=== PATIENT | male | born 1970 | race Hispanic/Latino ===

== ENCOUNTER 2018-09-29 11:09 | Emergency (ER) | payer OTHER ==
--- OUTSIDE RECORDS SUMMARY | 2018-09-29 11:11 | XMS REPORT | Clinical Summary ---
:1970 Author Organization [facility] Address [address] [place] [address] Care Team Providers Name Role Phone Leroy Kinsey MD Primary Care Provider Allergies No Known Allergies Medications Not on file Active Problems Not on file Social History Tobacco Use Types Packs/Day Years Used Date Current Every Day Smoker Cigarettes 1 Smokeless Tobacco: Never Used Alcohol Use Drinks/Week oz/Week Comments No Sex Assigned at Date Recorded Not on file Job Start Date Occupation Industry Not on file Not on file Not on file Travel History Travel Start Travel End No recent travel history available. Last Filed Vital Signs Not on file Plan of Treatment Not on file Results Not on fileafter 09/28/2017 Insurance Payer Benefit Plan / Subscriber ID Type Phone Address Group MEDICARE MEDICARE A B xxxxxxxxxx Medicare MEDICAID - MEDICAID [facility] STAR xxxxxxxxx Medicaid Contracted MGD CARE PLAN
--- OUTSIDE RECORDS SUMMARY | 2018-09-29 11:11 | XMS REPORT | Continuity of Care Document ---
:1970 Author Organization Interface Problems Problem Status Onset Classification Date Comments Source Date Reported UNK Active [place] 8 Medications Medication Details Route Status Patient Ordering Order Source Instructions Provider Date Allergies, Adverse Reactions, Alerts Substance Category Reaction Severity Reaction Status Date Comments Source type Reported Immunizations Immunization Date Given Site Status Last Updated Comments Source Results Order Results Value Reference Date Interpretation Comments Source Name Range Chest Chest 2 Clinical Indication: Coughing - preop 07/12 - 2 views - [place] views Comparison: None DX Read by: Saba Thomas MD Dictated Date/time: 07/12/18 13:36 FINDINGS: Electronically Signed by: Saba Thomas MD 07/12/18 13:39 FINAL REPORT The PA and lateral chest radiographs shows normal lung volumes without interstitial or airspace opacities, pleural effusions or pneumothorax. There is elevation of the left hemidiaphragm. The cardiomediastinal contours are normal. The trachea is midline. A tunneled right IJ dialysis catheter terminates at the atriocaval junction. There are no clinically significant osseous abnormalities noted. Patient has undergone lower cervical fusion. IMPRESSION: No chest radiographic evidence of acute cardiopulmonary abnormality. SL: [id number] Vital Signs Vital Sign Value Date Comments Source Encounters Location Location Encounter Encounter Reason Attending ADM DC Status Source Details Type Number For Provider Date Date Visit Procedures Procedure Code Date Perfomer Comments Source
[2018-09-29] MEDS ORDERED: ONDANSETRON 4 MG/2 ML VIAL ONE ×2 (12:29→16:09)
[2018-09-29] MEDS ORDERED: MORPHINE 4 MG/ML SYR ONE ×2 (12:29→16:08)
[2018-09-29 12:30] LABS: Absolute Lymphocytes (CBC) 2.2 K/uL (0.7-4.9); Absolute Neutrophil 8.5 K/uL (1.8-8.0); Basophils % 1.2 % (0-1.3); Hematocrit 31.9 % (39.6-49.0); Lymphocytes % 17.4 % (15.3-44.8); MCH 27.2 pg (27.0-35.0); MPV 7.7 fL (7.6-11.3); RBC Red Blood Cell Count 3.89 M/uL (4.33-5.43)
[2018-09-29 12:42] LABS: Albumin 3.1 g/dL (3.4-5.0); Bilirubin Direct 0.1 mg/dL (0-0.2); Bilirubin Total 0.3 mg/dL (0.2-1.0); Protein, Total 6.7 g/dL (6.4-8.2)
[2018-09-29 12:44] LABS: Potassium 5.7 mmol/L (3.5-5.1)
[2018-09-29 12:47] LABS: Urine Bacteria <20 /HPF (NONE SEEN); Urine Culture Reflex Order NOT NEEDED; Urine RBC <5 /HPF (NONE SEEN)
--- NOTE | 2018-09-29 13:04 | RAD REPORT ---
EXAM DESCRIPTION: CT - Abdomen Pelvis Wo Contrast - 09/29/2018 12:37 pm CLINICAL HISTORY: Abdominal pain, surgical site drain, nephrectomy 3 weeks earlier COMPARISON: None. TECHNIQUE: Axial [address] imaging of the abdomen and pelvis was performed without IV contrast. No IV contrast was given because of allergy, abnormal renal function, patient refusal or physician re quest. Oral contrast was given. All CT scans are performed using dose optimization technique as appropriate and may include automated exposure control or mA/KV adjustment according to patient size. FINDINGS: No suspicious findings in the lung bases. The liver, spleen and pancreas show no suspicious findings on non-contrast imaging. Gallbladder and b iliary tree are also without suspicious finding. No hydronephrosis of the left kidney. No obstructing or nonobstructing calculi. There is nonspecific stranding in the left perinephric fat. Contracted urinary bladder shows no suspicious finding. Patient is status post right nephrectomy. In the right renal bed there is no hematoma, abscess or oth er suspicious finding. A minimal amount of fluid in stranding are present well within normal limits. Stranding and edema are seen in the subcutaneous fatty tissues. There are several linear areas of str anding in the subcutaneous fat presumed to be laparoscopic access points. Inferior and left lateral t o the umbilicus there is a access site that shows slightly more prominent stranding and skin thickeni ng. This may be the draining wound. In the subcutaneous fat there is no abscess or defined fluid anthony ection. No hematoma, abscess or significant finding within the abdominal wall muscle or fascia. No left adrenal abnormality. Isodense renal masses and pyelonephritis cannot be excluded in the abse nce of IV contrast. No dilated bowel loops or bowel wall thickening. No free air or pneumatosis in the peritoneal or retr operitoneal spaces. No hernia, mass or bulky lymphadenopathy. No suspicious bony findings. IMPRESSION: At the right nephrectomy site there is no hematoma, mass or other unexpected finding. Stranding and edema changes are present in the subcutaneous fat of the abdomen and pelvis with focal stranding changes related to laparoscopic access sites. Stranding is focally more prominent at an access site left lateral and inferior to the umbilicus. Thi s may be the clinically draining wound. At this location there is no subcutaneous air or abscess. The abdominal wall, peritoneal space and retroperitoneal space overall clear of a hematoma, abscess o r significant finding.
[2018-09-29] MEDS ORDERED: SOD POLYSTYREN SUL 15 GM/60 ML UCUP ONE (13:31)
[2018-09-29] MEDS ORDERED: D50W 25 GM/50 ML SYRINGE IV ONE (13:31)
[2018-09-29] MEDS ORDERED: INSULIN -REGULAR HUMAN 50 UNIT/0.5 ML ML ONE (13:31)
[2018-09-29 13:40] LABS: Urine Blood 1+ (NEG); Urine Glucose NEGATIVE (NEG); Urine Protein 3+ (NEG); Urine pH 6.5 (5.0-7.0)
[2018-09-29] MEDS ORDERED: ALBUTEROL 2.5 MG/3 ML NEB SOL ONE (13:47)
--- NOTE | 2018-09-29 15:17 | RAD REPORT ---
EXAM DESCRIPTION: RAD - Chest Single View - 09/29/2018 1:32 pm CLINICAL HISTORY: Abdominal pain, recent nephrectomy COMPARISON: None. TECHNIQUE: AP portable chest image was obtained 1328 hours . FINDINGS: Lungs are clear. Heart and vasculature are normal. No measurable pleural effusion and no p neumothorax. No acute bony abnormality seen. No acute aortic finding. Left hemidiaphragm elevation is present. Dialysis catheter present on the right. IMPRESSION: No acute cardiopulmonary process.
[2018-09-29] MEDS ORDERED: CLINDAMYCIN 900MG/D5W 900 MG/50 ML IVPB IV ONE (16:09)
--- NOTE | 2018-09-29 17:58 | EDPHYS ---
Physician Documentation [facility] Name: Vladimir Maguire Age: 48 yrs Sex: Male : 1970 Arrival Date: 09/29/2018 Time: 11:11 Bed 17 Private MD: ED Physician Espinoza Saleem HPI: 09/29 11:50 This 48 yrs old Male presents to ER via Ambulatory with complaints of Post cp Surgical Pain. 11:50 The patient presents with abdominal pain in the lower abdomen. cp 11:50 Onset: The symptoms/episode began/occurred gradually. Associated signs and symptoms: cp Pertinent positives: fever, chills, Pertinent negatives: blood in stools, chest pain, constipation, diarrhea, dysuria, vomiting. 11:50 Patient reports having surgery to remove right kidney 3 weeks ago \T\[facility] with cp subsequent surgery for perforated bowel 4 days later. Historical: - Allergies: 11:28 No Known Allergies; jl7 - PMHx: 11:28 Diabetes - NIDDM; Hypertension; Renal Disease; Rheumatoid Arthritis; neuropathy; jl7 - PSHx: 11:28 BKA; Nephrectomy; jl7 - Immunization history:: Adult Immunizations up to date. - Social history:: Smoking status: Patient/guardian denies using tobacco, Patient uses street drugs, marijuana. - Ebola Screening: : No symptoms or risks identified at this time. ROS: 11:55 Constitutional: Positive for chills, Negative for fever, poor PO intake. cp 11:55 Cardiovascular: Negative for chest pain, edema, palpitations. 11:55 Respiratory: Negative for cough, shortness of breath, wheezing. 11:55 Abdomen/GI: Positive for abdominal pain, Negative for vomiting, diarrhea, constipation, anorexia, black/tarry stool, rectal bleeding. 11:55 Back: Negative for pain at rest, pain with movement, radiated pain. 11:55 : Negative for urinary symptoms, flank pain. 11:55 Skin: Negative for rash. 11:55 Neuro: Negative for altered mental status, headache, weakness. 11:55 All other systems are negative. Exam: 12:00 Constitutional: The patient appears in no acute distress, alert, awake, cp non-diaphoretic, non-toxic, well developed, well nourished, obese. 12:00 Head/Face: Normocephalic, atraumatic. cp 12:00 Eyes: Periorbital structures: appear normal, Pupils: equal, round, and reactive to cp light and accomodation, Extraocular movements: intact throughout, Conjunctiva: normal, no exudate, no injection, Sclera: no appreciated abnormality, Lids and lashes: appear normal, bilaterally. 12:00 ENT: External ear(s): are unremarkable, Nose: is normal, Mouth: Lips: moist, Oral mucosa: moist, Posterior pharynx: is normal, airway is patent, no erythema, no exudate, Voice: is normal. 12:00 Neck: ROM/movement: is normal, is supple, without pain, no range of motions limitations, no nuchal rigidity. 12:00 Chest/axilla: Inspection: normal, Palpation: is normal, no crepitus, no tenderness. cp 12:00 Cardiovascular: Rate: normal, Rhythm: regular, JVD: is not appreciated. 12:00 Respiratory: the patient does not display signs of respiratory distress, Respirations: normal, no use of accessory muscles, no retractions, no splinting, no tachypnea, labored breathing, is not present, Breath sounds: are clear throughout, no decreased breath sounds, no stridor, no wheezing. 12:00 Abdomen/GI: Inspection: scar(s), are noted in the right lower quadrant and left lower quadrant, noted drainage from surgical incision left mid abdomen, Bowel sounds: active, all quadrants, Palpation: soft, in all quadrants, moderate abdominal tenderness, in the right lower quadrant and left lower quadrant, rebound tenderness, is not appreciated, involuntary guarding, is not appreciated. 12:00 Musculoskeletal/extremity: Extremities: grossly normal except: right BKA. 12:00 Neuro: Orientation: to person, place \T\ time. Mentation: is normal, Cerebellar function: is grossly normal. 13:30 ECG was reviewed by the Attending Physician. Vital Signs: 11:28 BP 184 / 104; Pulse 68; Resp 16 S; Temp 97.2(O); Pulse Ox 100% on R/A; Weight 103.87 kg jl7 (R); Height 5 ft. 9 in. (175.26 cm) (R); Pain 8/10; 13:30 BP 148 / 82; Pulse 65; Resp 18; Temp 97.5; Pulse Ox 98% on R/A; Pain 5/10; ls4 15:30 BP 144 / 78; Pulse 62; Resp 18; Pulse Ox 99% on R/A; Pain 5/10; ls4 17:33 BP 149 / 73; Pulse 89; Resp 18; iw 11:28 Body Mass Index 33.82 (103.87 kg, 175.26 cm) jl7 MDM: 11:22 Patient medically screened. 16:30 Data reviewed: vital signs, nurses notes, lab test result(s), EKG, radiologic studies, cp CT scan, plain films. 16:30 Test interpretation: by ED physician or midlevel provider: ECG, plain radiologic cp studies. 17:41 ED course: VSS. Patient has left the facility w/o discussing discharge and prior to cp speaking to provider. Spoke with patient at number noted in chart to discuss results and option of admittance. Patient declines to return to facility for admittance and has appt Monday for dialysis. Will leave script at front desk worker for Lasix 40 mg daily times 3 and antibiotics. 09/29 11:48 Order name: Wound Culture 09/29 11:48 Order name: Basic Metabolic Panel; Complete Time: 12:53 09/29 12:54 Interpretation: Normal except: K 5.7; CL 109; BUN 51; CRE 8.00; GFR 7; CA 7.5. 09/29 11:48 Order name: CBC with Diff; Complete Time: 12:53 09/29 12:54 Interpretation: Normal except: WBC 12.4; RBC 3.89; HGB 10.6; HCT 31.9; RDW 16.2; cp EOSINOPHIL % 5.0; NEUT A 8.5. 09/29 11:48 Order name: Creatinine for Radiology; Complete Time: 12:53 09/29 11:48 Order name: Hepatic Function; Complete Time: 12:53 09/29 11:48 Order name: Lipase; Complete Time: 12:53 09/29 11:48 Order name: Urine Microscopic Only; Complete Time: 12:53 09/29 11:58 Order name: CT Abd/Pelvis - Without Cont: give oral contrast; Complete Time: 13:23 09/29 12:55 Order name: XRAY Chest (1 view); Complete Time: 15:59 09/29 13:35 Order name: Urine Dipstick--Ancillary (enter results); Complete Time: 15:08 eb 09/29 15:09 Order name: Potassium: redraw \T\1530; Complete Time: 16:22 cp 09/29 11:48 Order name: IV Saline Lock; Complete Time: 12:34 cp 09/29 11:48 Order name: Labs collected and sent; Complete Time: 12:34 cp 09/29 11:48 Order name: Urine Dipstick-Ancillary (obtain specimen); Complete Time: 12:33 cp 09/29 12:55 Order name: EKG; Complete Time: 12:56 cp 09/29 12:55 Order name: EKG - Nurse/Tech; Complete Time: 13:45 cp EC:30 Rate is 61 beats/min. Rhythm is regular. OR interval is normal. QRS interval is normal. cp QT interval is normal. T waves are Inverted in lead aVL. Interpreted by me. Reviewed by me. Administered Medications: 12:25 Drug: morphine 4 mg Route: IVP; Site: right antecubital; ls4 12:55 Follow up: Response: No adverse reaction ls4 12:25 Drug: Zofran 4 mg Route: IVP; Site: right antecubital; ls4 12:55 Follow up: Response: No adverse reaction; Pain is decreased ls4 13:20 Drug: Albuterol 2.5 mg Route: Inhalation; ls4 13:20 Drug: D50W 50 ml Route: IVP; Site: right antecubital; ls4 13:50 Follow up: Response: No adverse reaction ls4 13:44 Drug: Albuterol 2.5 mg Route: Inhalation; ls4 13:45 Drug: Kayexalate 45 grams Route: PO; ls4 14:15 Follow up: Response: No adverse reaction ls4 13:50 Drug: Insulin Regular Human 5 units {Co-Signature: jl7 (Bebe Glasgow RN).} Route: IVP; ls4 Site: right antecubital; 14:10 Follow up: Response: No adverse reaction ls4 14:43 Drug: Albuterol 2.5 mg Route: Inhalation; ls4 14:43 Follow up: Response: No adverse reaction ls4 16:03 Drug: Zofran 4 mg Route: IVP; Site: right antecubital; ls4 16:33 Follow up: Response: No adverse reaction ls4 16:03 Drug: morphine 4 mg Route: IVP; Site: right antecubital; ls4 16:33 Follow up: Response: No adverse reaction; Pain is decreased ls4 16:05 Drug: Clindamycin 900 mg Route: IVPB; Infused Over: 30 mins; Site: right antecubital; ls4 18:28 Follow up: IV Status: Completed infusion; IV Intake: 50ml ls4 18:25 Not Given (Patient Eloped): Lasix 80 mg IVP once ls4 Disposition: 18:48 Co-signature as Attending Physician, Espinoza Saleem MD I agree with the assessment and kdr plan of care. Disposition: 09/29/18 17:56 Patient has left against medical advice. Impression: Hyperkalemia, Cellulitis of abdominal wall. - Patients states they are going to Home. - Condition is Fair. - Prescriptions for Clindamycin HCl 300 mg Oral Capsule - take 1 capsule by ORAL route every 6 hours for 10 days; 40 capsule. Lasix 40 mg Oral Tablet - take 1 tablet by ORAL route once daily for 3 days; 3 tablet. Doxycycline Monohydrate 100 mg Oral Tablet - take 1 tablet by ORAL route every 12 hours for 10 days; 20 tablet. Follow up: Waldo Roca DO; When: 10/01/2018; Reason: dialysis. - Problem is new. - Symptoms have improved. Signatures: Dispatcher [employer] EDMS Espinoza Saleem MD MD kdr Rocael Smith PA PA cp Leal, Jahala, RN RN jl7 Dorothy Pineda RN RN ls4 Bebe Glasgow RN jl7 Corrections: (The following items were deleted from the chart) 12:54 12:53 Normal except: K 5.7; CL 109; BUN 51; CRE 8.00; GFR 7. cp cp 17:58 17:56 09/29/2018 17:56 Patients has left against medical advice. Patient states they ls4 are going to Home. Condition is Fair. ls4 18:02 17:58 09/29/2018 17:56 Patients has left against medical advice. Patient states they cp are going to Home. Condition is Fair. ls4 18:47 18:02 09/29/2018 17:56 Patients has left against medical advice. Impression: cp Hyperkalemia; Cellulitis of abdominal wall. Patient states they are going to Home. Condition is Fair. Follow up: Waldo Roca; When: 10/01/2018; Reason: dialysis. Problem is new. Symptoms have improved. cp
--- NOTE | 2018-09-29 17:58 | ER ---
Nurse's Notes [facility] Name: Vladimir Maguire Age: 48 yrs Sex: Male : 1970 Arrival Date: 09/29/2018 Time: 11:11 Bed 17 Private MD: Diagnosis: Hyperkalemia;Cellulitis of abdominal wall Presentation: 09/29 11:23 Presenting complaint: Patient states: Nephrectomy 3 weeks ago, Dialysis said he had an jl7 infection 2 weeks ago and transferred to [facility], discharged the next morning with no infection diagnosis. Abdominal surgical sites opened last night and are leaking, reports "It feels like something is ripping from the inside.". Transition of care: patient was not received from another setting of care. Onset of symptoms was September 20, 2018. Risk Assessment: Do you want to hurt yourself or someone else? Patient reports no desire to harm self or others. Initial Sepsis Screen: Does the patient meet any 2 criteria? No. Patient's initial sepsis screen is negative. Does the patient have a suspected source of infection? Yes: Skin breakdown/wound. Care prior to arrival: None. 11:23 Method Of Arrival: Ambulatory [facility] 11:23 Acuity: GINA 3 jl7 Triage Assessment: :28 General: Appears in no apparent distress. uncomfortable, Behavior is calm, cooperative, jl7 appropriate for age. Pain: Complains of pain in abdomen Pain currently is 8 out of 10 on a pain scale. Neuro: Level of Consciousness is awake, alert, obeys commands, Oriented to person, place, time, situation. Cardiovascular: Patient's skin is warm and dry. Respiratory: Airway is patent Respiratory effort is even, unlabored, Respiratory pattern is regular, symmetrical. Derm: Skin is pink, warm \\T\\ dry. Historical: - Allergies: 11:28 No Known Allergies; jl7 - PMHx: 11: Diabetes - NIDDM; Hypertension; Renal Disease; Rheumatoid Arthritis; neuropathy; jl7 - PSHx: : BKA; Nephrectomy; jl7 - Immunization history:: Adult Immunizations up to date. - Social history:: Smoking status: Patient/guardian denies using tobacco, Patient uses street drugs, marijuana. - Ebola Screening: : No symptoms or risks identified at this time. Screenin:48 Abuse screen: Denies threats or abuse. Denies injuries from another. Nutritional ls4 screening: No deficits noted. Tuberculosis screening: No symptoms or risk factors identified. Fall Risk None identified. Assessment: 11:33 General: Appears uncomfortable, obese, Behavior is calm, cooperative. Pain: Complains ls4 of pain in umbilical area and suprapubic area Pain currently is 6 out of 10 on a pain scale. Neuro: No deficits noted. Cardiovascular: Denies chest pain, diaphoresis, fatigue, lightheadedness, nausea, palpitations, shortness of breath, syncope, vomiting. Respiratory: Airway is patent Trachea midline Respiratory effort is even, unlabored, Respiratory pattern is regular. GI: No deficits noted. : Parent/caregiver report the patient having post nephrectomy. pt is able to void. specimens sent. 12:30 Reassessment: Patient appears in no apparent distress at this time. Patient and/or ls4 family updated on plan of care and expected duration. Pain level reassessed. 13:30 Reassessment: Patient appears in no apparent distress at this time. Patient and/or ls4 family updated on plan of care and expected duration. Pain level reassessed. 14:30 Reassessment: Patient appears in no apparent distress at this time. Patient and/or ls4 family updated on plan of care and expected duration. Pain level reassessed. 15:30 Reassessment: Patient appears in no apparent distress at this time. Patient and/or ls4 family updated on plan of care and expected duration. Pain level reassessed. 16:30 Reassessment: Patient and/or family updated on plan of care and expected duration. Pain ls4 level reassessed. Patient states symptoms have improved. pt states he is ready to go home. . Vital Signs: 11:28 BP 184 / 104; Pulse 68; Resp 16 S; Temp 97.2(O); Pulse Ox 100% on R/A; Weight 103.87 kg jl7 (R); Height 5 ft. 9 in. (175.26 cm) (R); Pain 8/10; 13:30 BP 148 / 82; Pulse 65; Resp 18; Temp 97.5; Pulse Ox 98% on R/A; Pain 5/10; ls4 15:30 BP 144 / 78; Pulse 62; Resp 18; Pulse Ox 99% on R/A; Pain 5/10; ls4 17:33 BP 149 / 73; Pulse 89; Resp 18; iw 11:28 Body Mass Index 33.82 (103.87 kg, 175.26 cm) jl7 ED Course: 11:05 No provider procedures requiring assistance completed. Inserted saline lock: 20 gauge ls4 in right antecubital area, using aseptic technique. Blood collected. 11:05 Initial lab(s) drawn, by me, sent to lab. Urine collected: clean catch specimen. ls4 11:11 Patient arrived in ED. rg4 11:20 Rocael Smith PA is PHCP. cp 11:20 Espinoza Saleem MD is Attending Physician. cp 11:27 Triage completed. jl7 11:28 Arm band placed on right wrist. jl7 11:34 Dorothy Pineda, RN is Primary Nurse. ls4 12:[address] vm2 12:36 CT completed. Patient tolerated procedure well. Patient moved back from CT. vm2 12:38 CT Abd/Pelvis - Without Cont: give oral contrast In Process Unspecified. EDMS 13:32 XRAY Chest (1 view) In Process Unspecified. EDMS 14:48 Patient has correct armband on for positive identification. Bed in low position. Call ls4 light in reach. Side rails up X 1. Pulse ox on. NIBP on. 17:14 Awaiting: Patient upset because he is still awaiting discharge papers. pt assured that ls4 practioner would be getting those as soon as he can. Charge nurse Vesta notified that pt is upset. 17:20 IV discontinued, intact, bleeding controlled, No redness/swelling at site. Pressure ls4 dressing applied. 17:57 Primary Nurse role handed off by Dorothy Pineda, RN la1 18:01 Waldo Roca DO is Referral Physician. cp Administered Medications: 12:25 Drug: morphine 4 mg Route: IVP; Site: right antecubital; ls4 12:55 Follow up: Response: No adverse reaction ls4 12:25 Drug: Zofran 4 mg Route: IVP; Site: right antecubital; ls4 12:55 Follow up: Response: No adverse reaction; Pain is decreased ls4 13:20 Drug: Albuterol 2.5 mg Route: Inhalation; ls4 13:20 Drug: D50W 50 ml Route: IVP; Site: right antecubital; ls4 13:50 Follow up: Response: No adverse reaction ls4 13:44 Drug: Albuterol 2.5 mg Route: Inhalation; ls4 13:45 Drug: Kayexalate 45 grams Route: PO; ls4 14:15 Follow up: Response: No adverse reaction ls4 13:50 Drug: Insulin Regular Human 5 units {Co-Signature: dionte (Bebe Glasgow RN).} Route: IVP; ls4 Site: right antecubital; 14:10 Follow up: Response: No adverse reaction ls4 14:43 Drug: Albuterol 2.5 mg Route: Inhalation; ls4 14:43 Follow up: Response: No adverse reaction ls4 16:03 Drug: Zofran 4 mg Route: IVP; Site: right antecubital; ls4 16:33 Follow up: Response: No adverse reaction ls4 16:03 Drug: morphine 4 mg Route: IVP; Site: right antecubital; ls4 16:33 Follow up: Response: No adverse reaction; Pain is decreased ls4 16:05 Drug: Clindamycin 900 mg Route: IVPB; Infused Over: 30 mins; Site: right antecubital; ls4 18:28 Follow up: IV Status: Completed infusion; IV Intake: 50ml ls4 18:25 Not Given (Patient Eloped): Lasix 80 mg IVP once ls4 Intake: 18:28 IV: 50ml; Total: 50ml. ls4 Outcome: 17:15 AMA AMA form signed ls4 17:15 Condition: stable ls4 17:15 Demonstrated understanding of explained risks of leaving without seeing provider. Pt states that at 3 pm he was told it would be one more hour. pt states he will see his doctor tomorrow and does not want to wait any longer. 17:56 Patient left the ED. ls4 17:58 Patient left the ED. ls4 18:47 Patient left the ED. cp Signatures: Dispatcher [employer] EDVesta Livingston RN RN iw Attema, Lee, RN RN la1 Rocael Smith PA PA cp Garcia, Rubi rg4 Leal, Jahala, RN RN jl7 Ayanna Dolan [facility] Dorothy Pineda RN RN ls4 Bebe [email or web address] Corrections: (The following items were deleted from the chart) 18:28 16:33 IV Status: Completed infusion; IV Intake: 100ml ls4 ls4
--- NOTE | 2018-09-30 06:09 | EKG ---
Test Date: 2018-09-29 Test Time: 13:23:09 [employer]ber Management Professor: BEV MEASUREMENT RESULTS: Intervals: Rate: 61 [place]: 166 QRSD: 84 QT: 402 QTc: 404 [place]: P: 66 [place]: 166 QRS: 68 T: 85 INTERPRETIVE STATEMENTS: Normal sinus rhythm Normal ECG No previous ECG available for comparison Electronically Signed On 09-30-18 06:08:32 INSURANCE CLAIMS ASSISTANT by Brando Varghese
== END 2018-09-29 18:47 | disposition left against medical advice (07) ==
LOC: ER 11:09
DX: L03.311 Cellulitis of abdominal wall (principal); E87.5 Hyperkalemia; I10 Essential (primary) hypertension
CPT/HCPCS: 36415; 71045; 74176; 80048; 80076; 83690; 84132; 85025; 87070; 87077 ×2; 87186 ×2; 87205; 93005; 96365; 96366; 96375; 99285; J2405 ×2; 81003; 81015

== ENCOUNTER 2019-03-25 06:51 | Observation (INO) | payer OTHER ==
--- OUTSIDE RECORDS SUMMARY | 2019-03-25 06:53 | XMS REPORT | Clinical Summary ---
:[address] [facility] Address [address] [place] [address] Care Team Providers Name Role Phone Leroy [...] Not on file Results Not on fileafter 03/24/2018 Insurance Payer Benefit Plan / Subscriber ID Type Phone Address Group MEDICARE MEDICARE A B xxxxxxxxxx Medicare MEDICAID - MEDICAID [facility] COMM STAR xxxxxxxxx Medicaid Contracted [facility]GD CARE PLAN
--- OUTSIDE RECORDS SUMMARY | 2019-03-25 06:54 | XMS REPORT | Continuity of Care Document ---
:1970 Author Organization Interface Problems Problem Status Onset Classification Date Comments Source Date Reported Hypertensive 10/05/20 01/29/2019 [facility] chronic kidney 18 disease with stage 5 chronic kidney disease or end stage renal disease UNK Active 06/19/20 [facility] 18 End stage renal 01/29/2019 [facility] disease ESRD on Active Problem 01/29/2019 [facility] hemodialysis Diabetes Active Problem 01/29/2019 [facility] Diabetic Active Problem 01/29/2019 [facility] neuropathy Chronic Active Problem 01/29/2019 [facility] generalized pain Hypertension Active Problem 01/29/2019 [facility] DJD (<span Active Problem 01/29/2019 [facility] ID="[id number] ">Confirmed</spa n>) Reactive Active Problem 01/29/2019 [facility] arthritis of low back Mass of right Active Problem 01/29/2019 [facility] kidney Medications Medication Details Route Status Patient Ordering Order Source Instructions Provider Date Ancef + sterile 2 gm, Route: Active water 20 mL IV, PRE OP, 018 [facility] kg, Start date: 07/12/18 12:00:00 CDT, Duration: 1 day, Stop date: 07/13/18 11:59:00 CDT, ABX Indication: Surgical ProphylaxisN otes: (Same As: Ancef, Kefzol) MEDICATION WASTE Product Size: 1000 mg Product Wasted: ___ mg Vancomycin 1 gm, Route: Active IVPB, Drug 018 [facility] form: INJ, PRE OP, kg, Start date: 07/12/18 12:00:00 CDT, Duration: 1 day, Stop date: 07/13/18 11:59:00 CDT, ABX Indication: Surgical ProphylaxisN otes: TIME CRITICAL MEDICATION (Same As: Vancocin) Infusion rate 2001 mg: infuse over 2.5 hours For adult patients only: Round to nearest 250 mg per Medical Staff approval MEDICATION WASTE Product Size: 1000 mg Product Wasted: ___ mg meloxicam 15 mg 15 mg=1 tab, Active oral tablet PO, Daily, # 018 [facility] 30 tab, 0 Refill(s) Acetaminophen 1 tab, PO, Active 325 MG / TID, PRN 018 [facility] Hydrocodone Pain, # 60 Bitartrate 10 MG tab, 0 Oral Tablet Refill(s) [Upper Tract 10/325] Trazodone 100 mg=1 Active Hydrochloride tab, PO, 018 [facility] 100 MG Oral Bedtime, # Tablet 30 tab, 0 Refill(s) metoprolol 50 mg=1 tab, Active tartrate 50 mg PO, BID, # 018 [facility] oral tablet 180 tab, 0 Refill(s) lisinopril 30 mg 30 mg=1 tab, Active oral tablet PO, Daily, # 018 [facility] 30 tab, 0 Refill(s) Allergies, Adverse Reactions, Alerts Substance Category Reaction Severity Reaction Status Date Comments Source type Reported Immunizations Immunization Date Given Site Status Last Updated Comments Source Results Order Name Results Value Reference Date Interpretation Comments Source Range SPECIAL Hgb A1C 5.8 % <=5.6 % 07/12 CHEMISTRY /2017 [facility] BLOOD BANK Antibody Negative 07/12 RESULTS Scrn [facility] (07/12/18 11:58 AM) BLOOD BANK ABO/Rh O POS 07/12 RESULTS /2017 [facility] ELECTROLYT AGAP 10.2 meq/L 10.0 - 07/12 ES 20.0 [facility] ELECTROLYT eGFR 19 07/12 Result Comment: The eGFR is calculated using the CKD-EPI formula. In most young, healthy individuals the eGFR will be >90 mL/ min/1.73m2. The eGFR declines with age. An eGFR of 60-89 may be normal in ES mL/min/1.7 /2018 some populations, particularly the elderly, for whom the CKD-EPI formula has not been extensively validated. Use of the eGFR is not recommended in the following populations: [facility] 3m2 Individuals with unstable creatinine concentrations, including patients and those with serious co-morbid conditions. Patients with extremes in muscle mass or diet. The data above are obtained from the National Kidney Disease Education Program (NKDEP) which additionally recommends that when the eGFR is used in patients with extremes of body mass index for purposes of drug dosing, the eGFR should be multiplied by the estimated BMI. ELECTROLYT Calcium Lvl 8.0 mg/dL 8.5 - 10.5 07/12 [facility] ELECTROLYT CO2 26 meq/L 24 - 32 07/12 [facility] ELECTROLYT Creatinine 3.53 mg/dL 0.50 - 07/12 ES Lvl 1.40 [facility] ELECTROLYT BUN 33 mg/dL 7 - 22 07/12 [facility] ELECT[facility]OLYT Glucose Lvl 86 mg/dL 70 - 99 07/12 [facility] ELECTROLYT Chloride Lvl 108 meq/L 95 - 109 07/12 [facility] ELECTROLYT Sodium Lvl 139 meq/L 135 - 145 07/12 [facility] ELECTROLYT Potassium 5.2 meq/L 3.5 - 5.1 07/12 ES Lv [facility] HEMATOLOGY PTT 34.8 s 22.9 - 07/12 35.8 [facility] HEMATOLOGY INR 0.94 0.85 - 07/12 1.17 [facility] HEMATOLOGY PT 12.6 s 12.0 - 07/12 14.7 [facility] HEMATOLOGY Platelet 259 K/CMM 133 - 450 07/12 [facility] HEMATOLOGY MPV 7.6 fL 7.4 - 10.4 07/12 [facility] HEMATOLOGY Hct 37.0 % 42.0 - 07/12 54.0 [facility] HEMATOLOGY MCH 27.0 pg 27.0 - 07/12 31.0 [facility] HEMATOLOGY MCHC 32.7 g/dL 32.0 - 07/12 36.0 [facility] HEMATOLOGY RDW 15.7 % 11.5 - 07/12 14.5 [facility] HEMATOLOGY MCV 82.5 fL 80.0 - 07/12 94.0 [facility] HEMATOLOGY Hgb 12.1 g/dL 14.0 - 07/12 18.0 [facility] HEMATOLOGY RBC 4.49 M/CMM 4.70 - 07/12 6.10 [facility] HEMATOLOGY WBC 10.7 K/CMM 3.7 - 10.4 07/12 [facility] HEMATOLOGY Basophils 0.6 % 0.0 - 1.0 07/12 [facility] HEMATOLOGY Eosinophils 4.6 % 0.0 - 4.0 07/12 [facility] HEMATOLOGY Neutrophils 7.0 K/CMM 1.5 - 8.1 07/12 # /2017 [facility] HEMATOLOGY Lymphocytes 2.4 K/CMM 1.0 - 5.5 07/12 # /2017 [facility] HEMATOLOGY Monocytes # 0.8 K/CMM 0.0 - 0.8 07/12 /2017 [facility] HEMATOLOGY Lymphocytes 22.5 % 20.0 - 07/12 40.0 /2017 [facility] HEMATOLOGY Monocytes 7.2 % 2.0 - 12.0 07/12 [facility] HEMATOLOGY Eosinophils 0.5 K/CMM 0.0 - 0.5 07/12 # /2018 [facility] HEMATOLOGY Basophils # 0.1 K/CMM 0.0 - 0.2 07/12 [facility] HEMATOLOGY Segs 65.1 % 45.0 - 07/12 75.0 /2017 [facility] Chest 2 Chest 2 Clinical Indication: Coughing - preop 07/12 - views DX views DX - [facility] Comparison: None Read by: Saba Thomas MD Dictated Date/time: [...] radiographic evidence of acute cardiopulmonary abnormality. SL: [id number] Vital Signs Vital Sign Value Date Comments Source Respitory Rate 20 07/12/2018 [facility] Heart Rate 72 07/12/2018 [facility] Temperature Oral (F) 98 F 07/12/2018 [facility] Systolic (mm Hg) 136 07/12/2018 [facility] Diastolic (mm Hg) 86 07/12/2018 [facility] BMI Calculated 31.96 07/12/2018 [facility] Weight 103.955 07/12/2018 [facility] Height 180.34 cm 07/12/2018 [facility] Encounters Location Location Encounter Encounter Reason Attending ADM DC Status Source Details Type Number For Provider Date Date Visit [facility] Outpatient [id number] Charly 07/12 07/12 Rob [facility]2017 [facility] Procedures Procedure Code Date Perfomer Comments Source Amputation [id number] [facility] Anterior spinal [id number] [facility] fusion for cervical spinal deformity BKA - Below knee [id number] [facility] amputation Insertion of [id number] [facility] tunnelled dialysis catheter using fluoroscopic guidance Knee replacement [id number] [facility] ORIF - Open [id number] [facility] reduction and internal fixation of fracture Tonsillectomy [id number] [facility]
--- OUTSIDE RECORDS SUMMARY | 2019-03-25 06:54 | XMS REPORT | Summary of Care ---
:1970 Author Organization [facility] Address [address] [place], [place] [address]- Encounter HQ Naida(KENNETH) [id number] Date(s): 07/12/18 - 07/12/18 [facility] [address] [place] [address]- [phone] Encounter Diagnosis Hypertensive chronic kidney disease with stage 5 chronic kidney disease or end stage renal disease (Final) - 10/05/18 End stage renal disease (Final) - Discharge Disposition: Home or Self Care Attending Physician: Charly Saleh MD Referring Physician: Charly Saleh MD Vital Signs Most recent to oldest [Reference Range]: 1 Height 180.34 cm (07/12/18 12:01 PM) Temperature Oral [96.4-99.1 DegF] 98 DegF (07/12/18 12:23 PM) Blood Pressure [90-140/60-90 mmHg] 136/86 mmHg (07/12/18 12:23 PM) Respiratory Rate [14-20 BRMIN] 20 BRMIN (07/12/18 12:23 PM) Peripheral Pulse Rate [60-100 bpm] 72 bpm (07/12/18 12:23 PM) Weight 103.955 kg (07/12/18 12:01 PM) Body Mass Index 31.96 m2 (07/12/18 12:01 PM) Problem List Condition Effective Dates Status Health Status Informant ESRD on hemodialysis(Confirmed) Active Diabetes(Confirmed) Active Diabetic neuropathy(Confirmed) Active Chronic generalized pain(Confirmed) Active Hypertension(Confirmed) Active DJD (degenerative joint Active disease)(Confirmed) Reactive arthritis of low Active back(Confirmed) Mass of right kidney(Confirmed) Active Allergies, Adverse Reactions, Alerts Substance Reaction Severity Status NKDA Active Medications Ancef + sterile water 20 mL 2 gm, Route: IV, PRE OP, kg, Start date: 07/12/18 12:00:00 CDT, Duration: 1 day , Stop date: 07/13/1811:59:00 CDT, ABX Indication: Surgical Prophylaxis Notes: (Same As: Cheli Morales) MEDICATION WASTE Product Size: 1000 mgProduct Wasted: ___ mg Start Date: 07/12/18 Stop Date: 07/13/18 Status: Orderedlisinopril 30 mg oral tablet 30 mg=1 tab, PO, Daily, # 30 tab, 0 Refill(s) Start Date: 07/12/18 Status: Orderedmeloxicam 15 mg oral tablet 15 mg=1 tab, PO, Daily, # 30 tab, 0 Refill(s) Start Date: 07/12/18 Status: Orderedmetoprolol tartrate 50 mg oral tablet 50 mg=1 tab, PO, BID, # 180 tab, 0 Refill(s) Start Date: 07/12/18 Status: OrderedNorco 10/325 oral tablet 1 tab, PO, TID, PRN Pain, # 60 tab, 0 Refill(s) Start Date: 07/12/18 Stop Date: 08/01/18 Status: Orderedtrazodone 100 mg oral tablet 100 mg=1 tab, PO, Bedtime, # 30 tab, 0 Refill(s) Start Date: 07/12/18 Stop Date: 08/11/18 Status: Orderedvancomycin + Dextrose 5% in Water IV 250 mL 1 gm, Route: IVPB, Drug form: INJ, PRE OP, kg, Start date: 07/12/18 12:00:00 CDT , Duration: 1 day, Stop date: 07/13/18 11:59:00 CDT, ABX Indication: Surgical Prophylaxis Notes: TIME CRITICAL MEDICATION(Same As: Vancocin)Infusion rate< 1000 mg: infuse over 1 [id number] - 1500 mg: infuse over 1.5 [id number] - 2000 mg: infuse over 2 hours> 2001 mg: infuse over 2.5 hoursFor adult patients only: Round to nearest 250 mg per Medical Staff approval MEDICATION WASTE Product Size: 1000 mgProduct Wasted: ___ mg Start Date: 07/12/18 Stop Date: 07/13/18 Status: Ordered Results BLOOD BANK RESULTS Most recent to oldest [Reference Range]: 1 ABO/Rh O POS *Unknown* (07/12/18 11:58 AM) Antibody Scrn Negative (07/12/18 11:58 AM) ELECTROLYTES Most recent to oldest [Reference Range]: 1 Sodium Lvl [135-145 mEq/L] 139 mEq/L (07/12/18 11:58 AM) Potassium Lvl [3.5-5.1 mEq/L] 5.2 mEq/L *HI* (07/12/18 11:58 AM) Chloride Lvl [95-109 mEq/L] 108 mEq/L (07/12/18 11:58 AM) CO2 [24-32 mEq/L] 26 mEq/L (07/12/18 11:58 AM) AGAP [10.0-20.0 mEq/L] 10.2 mEq/L (07/12/18 11:58 AM) CHEM PANEL Most recent to oldest [Reference Range]: 1 Creatinine Lvl [0.50-1.40 mg/dL] 3.53 mg/dL *HI* (07/12/18 11:58 AM) eGFR 19 mL/min/1.73m2 1 *NA* (07/12/18 11:58 AM) BUN [7-22 mg/dL] 33 mg/dL *HI* (07/12/18 11:58 AM) Glucose Lvl [70-99 mg/dL] 86 mg/dL (07/12/18 11:58 AM) Calcium Lvl [8.5-10.5 mg/dL] 8.0 mg/dL *LOW* (07/12/18 11:58 AM) 1Result Comment: The eGFR is calculated using the CKD-EPI formula. In most young , healthy individualsthe eGFR will be >90 mL/min/1.73m2. The eGFR declines with age. An eGFR of 60-89 may be normal insome populations, particularly the elderly, for whom the CKD-EPI formula has not been extensively validated. Use of the eGFR is not recommended in the following populations: Individuals with unstable creatinine concentrations, including patients and those with serious co-morbid conditions. Patients with extremes in muscle mass or diet. The data above are obtained from the National Kidney Disease Education Program ( NKDEP) which additionally recommends that when the eGFR is used in patients with extremes of body mass index for purposesof drug dosing, the eGFR should be multiplied by the estimated BMI.SPECIAL CHEMISTRY Most recent to oldest [Reference Range]: 1 Hgb A1C [<=5.6 %] 5.8 % *HI* (07/12/18 12:02 PM) HEMATOLOGY Most recent to oldest [Reference Range]: 1 WBC [3.7-10.4 K/CMM] 10.7 K/CMM *HI* (07/12/18 11:58 AM) RBC [4.70-6.10 M/CMM] 4.49 M/CMM *LOW* (07/12/18 11:58 AM) Hgb [14.0-18.0 g/dL] 12.1 g/dL *LOW* (07/12/18 11:58 AM) Hct [42.0-54.0 %] 37.0 % *LOW* (07/12/18 11:58 AM) MCV [80.0-94.0 fL] 82.5 fL (07/12/18 11:58 AM) MCH [27.0-31.0 pg] 27.0 pg (07/12/18 11:58 AM) MCHC [32.0-36.0 g/dL] 32.7 g/dL (07/12/18 11:58 AM) RDW [11.5-14.5 %] 15.7 % *HI* (07/12/18 11:58 AM) MPV [7.4-10.4 fL] 7.6 fL (07/12/18 11:58 AM) Platelet [133-450 K/CMM] 259 K/CMM (07/12/18 11:58 AM) Segs [45.0-75.0 %] 65.1 % (07/12/18 11:58 AM) Lymphocytes [20.0-40.0 %] 22.5 % (07/12/18 11:58 AM) Monocytes [2.0-12.0 %] 7.2 % (07/12/18 11:58 AM) Eosinophils [0.0-4.0 %] 4.6 % *HI* (07/12/18 11:58 AM) Basophils [0.0-1.0 %] 0.6 % (07/12/18 11:58 AM) Neutrophils # [1.5-8.1 K/CMM] 7.0 K/CMM (07/12/18 11:58 AM) Lymphocytes # [1.0-5.5 K/CMM] 2.4 K/CMM (07/12/18 11:58 AM) Monocytes # [0.0-0.8 K/CMM] 0.8 K/CMM (07/12/18 11:58 AM) Eosinophils # [0.0-0.5 K/CMM] 0.5 K/CMM (07/12/18 11:58 AM) Basophils # [0.0-0.2 K/CMM] 0.1 K/CMM (07/12/18 11:58 AM) PT [12.0-14.7 seconds] 12.6 seconds (07/12/18 11:58 AM) INR [0.85-1.17] 0.94 (07/12/18 11:58 AM) PTT [22.9-35.8 seconds] 34.8 seconds (07/12/18 11:58 AM) Immunizations No data available for this section Procedures Procedure Date Related Diagnosis Body Site Status Amputation Completed Anterior spinal fusion for cervical spinal Completed deformity BKA - Below knee amputation Completed Insertion of tunnelled dialysis catheter Completed using fluoroscopic guidance Knee replacement Completed ORIF - Open reduction and internal Completed fixation of fracture Tonsillectomy Completed Social History Social History Type Response Substance Abuse Use: Current. Type: Marijuana. Recreational Drug Route: Inhaled. Amount: 10 joints per day. Alcohol Past1 Smoking Status Current every day smoker; Type: marijuana; Exposure to Tobacco Smoke self; Cigarette Smoking Last 365 Days Yes; Reg Smoking Cessation Counseling No2 entered on: 07/12/18 1quit 8 years [id number] joints per day Assessment and Plan No data available for this section
--- OUTSIDE RECORDS SUMMARY | 2019-03-25 06:54 | XMS REPORT ---
:1970 Author Organization [facility] Address [address] [place] [address] Care Team Providers Name Role Phone Unavailable Unavailable Unavailable Problems This patient has no known problems. Allergies, Adverse Reactions, Alerts This patient has no known allergies or adverse reactions. Medications This patient has no known medications.
--- NOTE | 2019-03-25 07:24 | RAD REPORT ---
EXAM DESCRIPTION: RAD - Chest Single View - 03/25/2019 7:16 am CLINICAL HISTORY: Chest pain, shortness of breath, dyspnea COMPARISON: September 2018 TECHNIQUE: AP portable chest image was obtained 0715 hours . FINDINGS: No peripheral mass or consolidation. Interstitial and some scattered alveolar opacities ar e present in the lung murray, more so in the medial right base. Dialysis catheter is in place. Left h emidiaphragm elevation again noted. Heart and vasculature are normal. No measurable pleural effusion and no pneumothorax. No acute bony abnormality seen. No acute aortic findings suspected. IMPRESSION: Interstitial and alveolar opacification more so on the right lung base. Volume overload is favored over cardiac decompensation. Right base pneumonia is not excluded but less er in likelihood as well.
[2019-03-25 07:55] LABS: Absolute Lymphocytes (CBC) 1.3 K/uL (0.7-4.9); Absolute Monocytes 0.7 K/uL (0.1-1.3); Absolute Neutrophil 6.6 K/uL (1.8-8.0); Basophils % 0.7 % (0-1.3); Eosinophils % 3.9 % (0-4.4); Hematocrit 31.8 % (39.6-49.0); Lymphocytes % 14.8 % (15.3-44.8); MPV 7.7 fL (7.6-11.3); Monocytes % 7.3 % (3.3-12.3); RBC Red Blood Cell Count 3.82 M/uL (4.33-5.43)
[2019-03-25 08:25] LABS: BUN Blood Urea Nitrogen 62 mg/dL (7-18); Bicarbonate 18 mmol/L (21-32); Glucose Level 90 mg/dL (74-106); NT PRO-BNP 45149 pg/mL (<125); Sodium Level 141 mmol/L (136-145); Troponin (Emerg Dept Use Only) < 0.02 ng/mL (0.0-0.045)
[2019-03-25 08:26] LABS: Potassium 6.7 mmol/L (3.5-5.1)
--- NOTE | 2019-03-25 08:36 | EDPHYS ---
Physician Documentation [facility] Name: Vladimir Maguire Age: 48 yrs Sex: Male : 1970 Arrival Date: 03/25/2019 Time: 07:02 Bed 7 Private MD: ED Physician Zacarias Anders HPI: 03/25 07:49 This 48 yrs old Male presents to ER via EMS with complaints of Shortness Of rn Breath, Chest Pain. 07:49 The patient has shortness of breath at rest. Onset: The symptoms/episode began/occurred rn this morning. Duration: The symptoms are continuous. The patient's shortness of breath is aggravated by exertion, supine position. Associated signs and symptoms: Pertinent positives: chest pain, diaphoresis, Pertinent negatives: non-productive cough, productive cough, fever, hemoptysis, loss of consciousness, vomiting. Severity of symptoms: At their worst the symptoms were moderate in the emergency department the symptoms are unchanged. The patient has not experienced similar symptoms in the past. The patient has not recently seen a physician. REports sob since last night/this morning, reports worse with exertion, went into dialysis today, his BP was elevated and complained of mild chest pain, so sent here. Reports missed last dialysis on Monday, last dialysis received was last . No fever/cough/hemoptysis. Reports more trouble catching his breath than pain. + painful with deep breath, and just feels like can't catch his breath. . Historical: - Allergies: 06:50 No Known Allergies; rr5 - Home Meds: 06:50 Metoprolol Tartrate Oral [Active]; Lisinopril Oral [Active]; Hydrocodone-Acetaminophen rr5 Oral [Active]; calcium acetate oral oral [Active]; - PMHx: 06:50 Diabetes - NIDDM; Hypertension; neuropathy; Rheumatoid Arthritis; Renal Disease; rr5 - PSHx: 06:50 BKA; upper neck fusion; wrist surgery; amputated left big toe; rr5 - Immunization history:: Adult Immunizations up to date. - Social history:: Smoking status: Patient/guardian denies using tobacco, Patient uses street drugs, marijuana, Patient/guardian denies using alcohol. - Family history:: not pertinent. - Ebola Screening: : Patient negative for fever greater than or equal to 101.5 degrees Fahrenheit, and additional compatible Ebola Virus Disease symptoms Patient denies exposure to infectious person Patient denies travel to an Ebola-affected area in the 21 days before illness onset No symptoms or risks identified at this time. - Hospitalizations: : No recent hospitalization is reported. ROS: 07:49 Constitutional: Negative for fever, chills, and weight loss, Eyes: Negative for injury, rn pain, redness, and discharge, Neck: Negative for injury, pain, and swelling, Cardiovascular: Negative for palpitations, and edema, Respiratory: Negative for cough, wheezing Abdomen/GI: Negative for abdominal pain, nausea, vomiting, diarrhea, and constipation, MS/Extremity: Negative for injury and deformity, Skin: Negative for injury, rash, and discoloration, Neuro: Negative for headache, weakness, numbness, tingling, and seizure. Exam: 07:49 Constitutional: This is a well developed, well nourished patient who is awake, alert, rn and in no acute distress. Appears anxious. Sitting in dark. Head/Face: Normocephalic, atraumatic. Eyes: Pupils equal round and reactive to light, extra-ocular motions intact. Lids and lashes normal. Conjunctiva and sclera are non-icteric and not injected. Cornea within normal limits. Periorbital areas with no swelling, redness, or edema. Cardiovascular: Regular rate and rhythm. No pulse deficits. Respiratory: Mild tachypnea, bibasilar crackles, no wheezing or retractions, speaking full sentences Abdomen/GI: soft, non-tender MS/ Extremity: Pulses equal, no cyanosis. Neurovascular intact. Full, normal range of motion. Equal circumference. Neuro: Awake and alert, GCS 15, oriented to person, place, time, and situation. Cranial nerves II-XII grossly intact. Motor strength 5/5 in all extremities. Sensory grossly intact. 07:54 ECG was reviewed by the Attending Physician. rn Vital Signs: 06:50 BP 175 / 80; Pulse 77; Resp 20; Temp 98; Pulse Ox 99% on R/A; Weight 151.95 kg; Height rr5 5 ft. 11 in. (180.34 cm); Pain 6/10; 09:05 BP 192 / 96; Pulse 72; Resp 17; Pulse Ox 100% on R/A; Pain 8/10; sg 10:05 BP 179 / 89; Pulse 72; Resp 17; Pulse Ox 100% on R/A; sg 06:50 Body Mass Index 46.72 (151.95 kg, 180.34 cm) rr5 MDM: 07:05 Patient medically screened. rn 08:09 Test interpretation: by ED physician or midlevel provider: plain radiologic studies, rn CXR with bilateral opacification/pulmonary edema. 08:10 Test interpretation: by ED physician or midlevel provider: ECG. rn 08:34 Differential diagnosis: pneumonia, Pneumothorax pulmonary edema. Data reviewed: vital rn signs, nurses notes, lab test result(s), EKG, radiologic studies, plain films, and as a result, I will admit patient. Counseling: I had a detailed discussion with the patient and/or guardian regarding: the historical points, exam findings, and any diagnostic results supporting the discharge/admit diagnosis, lab results, radiology results, the need for further work-up and treatment in the hospital. Response to treatment: the patient's symptoms have mildly improved after treatment, and as a result, I will admit patient. Admission orders: after a detailed discussion of the patient's condition and case, the admit orders are written by me. 08:34 ED course: Admitted to Dr. Berg \T\ 0834. rn 08:35 ED course: Pt states still makes urine, lasix ordered.. rn 03/25 07:06 Order name: Blood Culture Adult (2) rn 03/25 07:06 Order name: BMP; Complete Time: 08:28 rn 03/25 07:06 Order name: XRAY CXR (1 view); Complete Time: 07:36 rn 03/25 07:06 Order name: CBC with Diff; Complete Time: 08:09 rn 03/25 07:06 Order name: NT PRO-BNP; Complete Time: 08:28 rn 03/25 07:06 Order name: Troponin (emerg Dept Use Only); Complete Time: 08:28 rn 03/25 07:06 Order name: EKG; Complete Time: 07:07 rn 03/25 07:06 Order name: Cardiac monitoring; Complete Time: 07:11 rn 03/25 07:06 Order name: EKG - Nurse/Tech; Complete Time: 07:11 rn 03/25 07:06 Order name: IV Saline Lock; Complete Time: 07:19 rn 03/25 07:06 Order name: Labs collected and sent; Complete Time: 07:19 rn 03/25 07:06 Order name: O2 Per Protocol; Complete Time: 07:19 rn 03/25 07:06 Order name: O2 Sat Monitoring; Complete Time: 07:19 rn 03/25 08:53 Order name: CONS Physician Consult EDMS 03/25 08:53 Order name: Heart Healthy EDMS EC:54 Rate is 75 beats/min. Rhythm is regular. QRS [place] is Normal. SD interval is normal. QRS rn interval is normal. QT interval is normal. No Q waves. T waves are Normal. No ST changes noted. Clinical impression: Normal ECG. Interpreted by me. Reviewed by me. Administered Medications: 08:52 Drug: Insulin Regular Human 5 units {Co-Signature: mary (Francesco Cuevas RN).} Route: IVP; sg Site: right forearm; 09:45 Follow up: Response: No adverse reaction sg 08:55 Drug: Sodium Bicarbonate 1 amp Route: IVP; Site: right forearm; sg 09:44 Follow up: Response: No adverse reaction sg 08:55 Drug: Lasix 40 mg Route: IVP; Site: right forearm; sg 09:44 Follow up: Response: No adverse reaction sg 08:58 Drug: Kayexalate 15 grams Route: PO; sg 09:40 Follow up: Response: No adverse reaction sg 09:00 Drug: D50W 50 ml Route: IVP; Site: right forearm; sg 09:50 Follow up: Response: No adverse reaction sg 09:03 Drug: Albuterol 2.5 mg Route: Inhalation; sg 09:28 Drug: morphine 2 mg Route: IVP; Site: right forearm; sg 10:00 Follow up: Response: No adverse reaction; Pain is decreased sg Disposition: 03/25/19 08:35 Hospitalization ordered by Abbie Berg for Inpatient Admission. Preliminary diagnosis are Pulmonary edema, Chest pain, unspecified, Hyperkalemia, Acidosis, End stage renal disease. - Bed requested for Telemetry/MedSurg (Inpatient). - Status is Inpatient Admission. sg - Condition is Stable. - Problem is new. - Symptoms have improved. UTI on Admission? No Signatures: Dispatcher [employer] [facility] Anny Castro Steven RN RN Zacarias Anders MD MD rn Roque, Raymond, RN RN rr5 Francesco Cuevas RN hj Corrections: (The following items were deleted from the chart) 09:48 08:35 Hospitalization Ordered by Abbie Berg MD for Inpatient Admission. Preliminary bd diagnosis is Pulmonary edema; Chest pain, unspecified; Hyperkalemia; Acidosis; End stage renal disease. Bed requested for Telemetry/MedSurg (Inpatient). Status is Inpatient Admission. Condition is Stable. Problem is new. Symptoms have improved. UTI on Admission? No. rn 10:16 09:48 03/25/2019 08:35 Hospitalization Ordered by Abbie Berg MD for Inpatient sg Admission. Preliminary diagnosis is Pulmonary edema; Chest pain, unspecified; Hyperkalemia; Acidosis; End stage renal disease. Bed requested for Telemetry/MedSurg (Inpatient). Status is Inpatient Admission. Condition is Stable. Problem is new. Symptoms have improved. UTI on Admission? No. bd
--- NOTE | 2019-03-25 08:36 | ER ---
Nurse's Notes [facility] Name: Vladimir Maguire Age: 48 yrs Sex: Male : 1970 Arrival Date: 03/25/2019 Time: 07:02 Bed 7 Private MD: Diagnosis: Pulmonary edema;Chest pain, unspecified;Hyperkalemia;Acidosis;End stage renal disease Presentation: 03/25 06:50 Presenting complaint: EMS states: patient complaints of chest pain and SOB while on rr5 dialysis. he missed his dialysis last Monday. 06:50 Transition of care: patient was not received from another setting of care. Onset of rr5 symptoms was March 25, 2019. Risk Assessment: Do you want to hurt yourself or someone else? Patient reports no desire to harm self or others. Initial Sepsis Screen: Does the patient meet any 2 criteria? No. Patient's initial sepsis screen is negative. Does the patient have a suspected source of infection? No. Patient's initial sepsis screen is negative. Care prior to arrival: Medication(s) given: ASA, 325 mg, by EMS. 06:50 Method Of Arrival: EMS: [facility] rr5 06:50 Acuity: GINA 3 rr5 06:50 Note VS BP 190/110 CR 70bpm, O2 saturation 97%. rr5 Triage Assessment: 06:50 General: Appears in no apparent distress. uncomfortable, Behavior is calm, cooperative, rr5 appropriate for age. 06:50 Pain: Complains of pain in chest Pain does not radiate. Pain currently is 6 out of 10 rr5 on a pain scale. Quality of pain is described as aching, Pain began gradually, Is intermittent. Neuro: Level of Consciousness is awake, alert, obeys commands, Oriented to person, place, time, situation, Appropriate for age. Cardiovascular: Reports chest pain, Capillary refill < 3 seconds Patient's skin is warm and dry. Dialysis shunt: in the left arm, dialysis access at right chest wall. Respiratory: Reports shortness of breath Onset: The symptoms/episode began/occurred this morning, the patient has mild shortness of breath. Historical: - Allergies: 06:50 No Known Allergies; rr5 - Home Meds: 06:50 Metoprolol Tartrate Oral [Active]; Lisinopril Oral [Active]; Hydrocodone-Acetaminophen rr5 Oral [Active]; calcium acetate oral oral [Active]; - PMHx: 06:50 Diabetes - NIDDM; Hypertension; neuropathy; Rheumatoid Arthritis; Renal Disease; rr5 - PSHx: 06:50 BKA; upper neck fusion; wrist surgery; amputated left big toe; rr5 - Immunization history:: Adult Immunizations up to date. - Social history:: Smoking status: Patient/guardian denies using tobacco, Patient uses street drugs, marijuana, Patient/guardian denies using alcohol. - Family history:: not pertinent. - Ebola Screening: : Patient negative for fever greater than or equal to 101.5 degrees Fahrenheit, and additional compatible Ebola Virus Disease symptoms Patient denies exposure to infectious person Patient denies travel to an Ebola-affected area in the 21 days before illness onset No symptoms or risks identified at this time. - Hospitalizations: : No recent hospitalization is reported. Screenin:20 Abuse screen: Denies threats or abuse. Denies injuries from another. Nutritional sg screening: No deficits noted. Tuberculosis screening: No symptoms or risk factors identified. Never had TB. Fall Risk None identified. Assessment: 07:20 General: Appears in no apparent distress. well groomed, well developed, well nourished, sg Behavior is calm, cooperative, appropriate for age. Pain: Complains of pain in chest Pain radiates to left arm Quality of pain is described as aching, dull. Neuro: Level of Consciousness is awake, alert, obeys commands, Oriented to person, place, time, situation, Spiral Tube Winder Helper are equal bilaterally Moves all extremities. Full function Gait is steady, Speech is normal, Facial symmetry appears normal. Cardiovascular: Capillary refill is brisk in bilateral fingers Patient's skin is warm and dry. Chest pain is described as mild, Dialysis shunt: with palpable thrill, with auscultated bruit, with no erythema, with no edema. Respiratory: Airway is patent Respiratory effort is even, unlabored, Respiratory pattern is regular, symmetrical, Breath sounds are clear. GI: Abdomen is round non-distended, Bowel sounds present X 4 quads. : No signs and/or symptoms were reported regarding the genitourinary system. EENT: No signs and/or symptoms were reported regarding the EENT system. Derm: Skin is pink, warm \T\ dry. Musculoskeletal: Circulation, motion, and sensation intact. Range of motion: intact in all extremities, Swelling absent. 09:00 Reassessment: Patient appears in no apparent distress at this time. notified sg of pt complaining of increased CP at this time, no changes on the bedside monitor, awaiting new orders at this time, BP elevated and made aware. Vital Signs: 06:50 BP 175 / 80; Pulse 77; Resp 20; Temp 98; Pulse Ox 99% on R/A; Weight 151.95 kg; Height rr5 5 ft. 11 in. (180.34 cm); Pain 6/10; 09:05 BP 192 / 96; Pulse 72; Resp 17; Pulse Ox 100% on R/A; Pain 8/10; sg 10:05 BP 179 / 89; Pulse 72; Resp 17; Pulse Ox 100% on R/A; sg 06:50 Body Mass Index 46.72 (151.95 kg, 180.34 cm) rr5 Vitals: 09:05 Cardiac Rhythm Assessment Sinus rhythm. ED Course: 06:55 Patient has correct armband on for positive identification. Placed in gown. Bed in low rr5 position. Call light in reach. Side rails up X2. quality assurance monitor on. Pulse ox on. NIBP on. 07:00 Arm band placed on left wrist. EKG completed in triage. Results shown to MD. rr5 07:02 Patient arrived in ED. ak1 07:05 Zacarias Anders MD is Attending Physician. rn 07:06 Triage completed. rr5 07:16 XRAY CXR (1 view) In Process Unspecified. EDMS 07:18 Zackery Vaughn, RN is Primary Nurse. sg 07:40 Initial lab(s) drawn, by in, sent to lab. Inserted saline lock: 20 gauge in right em1 forearm, using aseptic technique. Blood collected. 07:40 First set of blood cultures drawn by me. em1 08:25 Notified ED physician of a critical lab result(s). elevated potassium, elevated sg creatinine. 08:34 Abbie Berg MD is Hospitalizing Provider. rn 10:07 No provider procedures requiring assistance completed. Patient admitted, IV remains in sg place. intact, No redness/swelling at site. Administered Medications: 08:52 Drug: Insulin Regular Human 5 units {Co-Signature: mary (Francesco Cuevas RN).} Route: IVP; sg Site: right forearm; 09:45 Follow up: Response: No adverse reaction sg 08:55 Drug: Sodium Bicarbonate 1 amp Route: IVP; Site: right forearm; sg 09:44 Follow up: Response: No adverse reaction sg 08:55 Drug: Lasix 40 mg Route: IVP; Site: right forearm; sg 09:44 Follow up: Response: No adverse reaction sg 08:58 Drug: Kayexalate 15 grams Route: PO; sg 09:40 Follow up: Response: No adverse reaction sg 09:00 Drug: D50W 50 ml Route: IVP; Site: right forearm; sg 09:50 Follow up: Response: No adverse reaction sg 09:03 Drug: Albuterol 2.5 mg Route: Inhalation; sg 09:28 Drug: morphine 2 mg Route: IVP; Site: right forearm; sg 10:00 Follow up: Response: No adverse reaction; Pain is decreased sg Outcome: 08:35 Decision to Hospitalize by Provider. rn 10:06 Admitted to Tele accompanied by [facility], via wheelchair, room 212, with chart, Report sg called to Aamir RN 10:06 Condition: stable 10:06 Instructed on the need for admit, safety practices, Demonstrated understanding of instructions, follow-up care. 10:16 Patient left the ED. sg Signatures: Dispatcher [employer] EDZackery Lawrence RN RN sg Nieto, Roman, MD MD rn Martinez, Eric em1 Suzie Matias RN RN ak1 Maykel Aponte RN RN rr5 Francesco Cuevas RN Corrections: (The following items were deleted from the chart) 08:06 07:20 Cardiovascular: Capillary refill is brisk in bilateral fingers Patient's skin is sg warm and dry. Chest pain is described as mild, sg
[2019-03-25] MEDS ORDERED: FUROSEMIDE 40 MG/4 ML VIAL ONE (08:52)
[2019-03-25] MEDS ORDERED: INSULIN -REGULAR HUMAN 50 UNIT/0.5 ML ML ONE (08:52)
[2019-03-25] MEDS ORDERED: ALBUTEROL 2.5 MG/3 ML NEB SOL ONE (08:52)
[2019-03-25] MEDS ORDERED: D50W 25 GM/50 ML SYRINGE IV ONE (08:53)
[2019-03-25] MEDS ORDERED: SODIUM BICARB 50 MEQ/50ML VIAL ONE (08:53)
[2019-03-25] MEDS ORDERED: SOD POLYSTYREN SUL 15 GM/60 ML UCUP ONE (08:53)
[2019-03-25] MEDS ORDERED: MORPHINE 2 MG/ML SYR ONE (09:38)
[2019-03-25] MEDS ORDERED: ALBUMIN HUMAN 25% 50 ML IV SCH (10:23)
[2019-03-25] MEDS ORDERED: EPOETIN ALFA 10,000 UNIT/ML VIAL IV SCH (10:23)
[2019-03-25] MEDS ORDERED: MANNITOL 25% 12.5 GM/50 ML VIAL IV PRN (10:23)
[2019-03-25] MEDS ORDERED: NA CHLORIDE 0.9% 1,000 ML IV PRN (10:23)
[2019-03-25] MEDS: INSULIN -REGULAR HUMAN 50 UNIT/0.5 ML ML SQ SCH ×3 (11:30→21:00)
--- NOTE | 2019-03-25 12:51 | EKG ---
Test Date: 2019-03-25 Test Time: 06:56:48 [employer] Teacher: DAYO MEASUREMENT RESULTS: Intervals: Rate: 75 WV: 158 QRSD: 74 QT: 396 QTc: 442 [place]: P: 42 WV: 158 QRS: 42 T: 83 INTERPRETIVE STATEMENTS: Normal sinus rhythm Normal ECG Compared to ECG 09/29/2018 13:23:09 No significant changes Electronically Signed On 03-25-19 12:50:17 CDT by Brando Varghese
[2019-03-25] MEDS: HYDROCODONE/APAP 5/325 MG TAB PO SCH ×3 (14:00→21:00)
[2019-03-25] MEDS: cloNIDine HCl 0.1 MG TAB PO SCH ×2 (15:23→21:27)
--- NOTE | 2019-03-25 15:49 | P.HP ---
Certification for Inpatient Patient admitted to: Observation With expected LOS: <2 Midnights Patient will require the following post-hospital care: None Practitioner: I am a practitioner with admitting privileges, knowledge of patient current condition, hospital course, and medical plan of care. Services: Services provided to patient in accordance with Admission requirements found in Title 42 Section 412.3 of the Code of Federal Regulations Patient History Date of Service: 03/25/19 Reason for admission: Missed HD with Volume overload History of Present Illness: This is a 48-year-old male with significant past medical history of hypertension , tobacco abuse, right-sided renal cell carcinoma now with end-stage renal disease on hemodialysis Monday who presented to the ED complaining of having shortness of breath and inability to lie flat. Patient stated that he missed his hemodialysis on Monday has seen his face he with his work. He started noticing that he was getting short of breath and thus decided to come to the hospital for further workup. Patient denies having any chest pain nausea vomiting abdominal pain or any other associated symptoms. In the ER patient had lab work and imaging done which was consistent with fluid overload secondary to end-stage renal disease and thus was admitted for further care. Allergies No Known Allergies Allergy (Unverified 10/13/17 16:55) Home Medications: Calcium Acetate 667 mg PO TID 03/25/19 Carisoprodol 350 mg PO BEDTIME 03/25/19 Clonidine HCl [Clonidine HCl ER] 0.1 mg PO TID 03/25/19 Doxazosin Mesylate [Cardura] 8 mg PO BID 03/25/19 Hydrocodone/Acetaminophen [Hydrocodone-Acetamin 5-325 mg] 1 tab PO TID 03/25/19 Lisinopril 30 mg PO BID 03/25/19 Metoprolol Succinate [Toprol Xl] 50 mg PO BID 03/25/19 Nifedipine [Nifedipine ER] 90 mg PO DAILY 03/25/19 - Past Medical/Surgical History Has patient received pneumonia vaccine in the past: Yes Diabetic: No -: HTN -: rheumatoid arthritis -: kidney failure -: R kidney cancer -: total knee replacement -: L little toe amputation -: BKA R -: upper neck fusion with broken screws -: wrist surgery -: R kidney removal - Family History Father History Unknown: Yes Mother -: Other (see notes) Notes: no known medical history - Social History Smoking Status: Current every day smoker Alcohol use: No CD- Drugs: No Caffeine use: Yes Place of Residence: Home Review of Systems 10-point ROS is otherwise unremarkable Physical Examination - Vital Signs Temperature: 97.0 F Blood Pressure: 200/98 Pulse: 85 Respirations: 16 Pulse Ox (%): 99 - Physical Exam General: Alert, In no apparent distress Neck: JVD distended Respiratory: Normal air movement, Crackles/rales Cardiovascular: Regular rate/rhythm, Normal S1 S2 Gastrointestinal: Normal bowel sounds, No tenderness Musculoskeletal: No tenderness, Swelling (Bilateral lower extremity edema) Integumentary: No rashes Neurological: Normal speech, Normal strength at 5/5 x4 extr, Normal tone Lymphatics: No axilla or inguinal lymphadenopathy - Studies Laboratory Data (last 24 hrs) 03/25/19 07:40: WBC 9.0, Hgb 10.2 L, Hct 31.8 L, Plt Count 209 03/25/19 07:40: Sodium 141, Potassium 6.7 H*, BUN 62 H, Creatinine 13.30 H*, Glucose 90 Assessment and Plan - Problems (Diagnosis) (1) Volume overload Current Visit: Yes Status: Acute Plan: Volume overload most likely secondary to missed hemodialysis -IV Lasix x1 given in the ER. -nephrology consulted. Appreciated recommendations at this time -patient scheduled for hemodialysis today Qualifiers: Hypervolemia type: other Qualified Code(s): E87.79 - Other fluid overload (2) End stage renal disease Current Visit: Yes Status: Chronic Plan: End-stage renal disease with Monday hemodialysis -elevated potassium along with BUN and creatinine most likely secondary to missed dialysis -patient treated for hyperkalemia in the ER -patient now scheduled for hemodialysis today (3) Hypertension Current Visit: Yes Status: Chronic Plan: Patient currently with elevated high blood pressure most likely secondary to volume overload -will restart on home medication here in the hospital Qualifiers: Hypertension type: essential hypertension Qualified Code(s): I10 - Essential (primary) hypertension (4) Tobacco abuse Current Visit: Yes Status: Chronic Plan: Smoking cessation provided more than 10 min - Plan Admit patient to medical-surgical floor for volume overload. Nephrology has been consulted. Patient is scheduled for hemodialysis today. Discharge Plan: Home Plan to discharge in: 48 Hours - Advance Directives Does patient have a Living Will: No Does patient have a Durable POA for Healthcare: No - Code Status/Comfort Care Code Status Assessed: Yes Critical Care: No
[2019-03-25] MEDS: MORPHINE 2 MG/ML SYR IV PRN ×2 (16:42→21:27)
[2019-03-25] MEDS: CA ACETATE 667 MG CAP PO SCH (16:42)
--- NOTE | 2019-03-25 16:44 | P.CNS ---
Date of Consult: 03/25/19 Reason for Consult: ESRD/ CHF Requesting Physician: Abbie Berg Chief Complaint: Missed HD with Volume overload History of Present Illness: 48 yo HM CKD, HTN presented to the ER moderate, progressive dyspnea with associated edema after missing his HD on Monday. Orthopnea. No alleviating fx. This is a 48-year-old male with significant past medical history of hypertension , tobacco abuse, right-sided renal cell carcinoma now with end-stage renal disease on hemodialysis Monday who presented to the ED complaining of having shortness of breath and inability to lie flat. Patient stated that he missed his hemodialysis on Monday has seen his face he with his work. He started noticing that he was getting short of breath and thus decided to come to the hospital for further workup. Patient denies having any chest pain nausea vomiting abdominal pain or any other associated symptoms. Allergies No Known Allergies Allergy (Unverified 10/13/17 16:55) Home medications list reviewed: Yes Home Medications: Calcium Acetate 667 mg PO TID 03/25/19 Carisoprodol 350 mg PO BEDTIME 03/25/19 Clonidine HCl [Clonidine HCl ER] 0.1 mg PO TID 03/25/19 Doxazosin Mesylate [Cardura] 8 mg PO BID 03/25/19 Hydrocodone/Acetaminophen [Hydrocodone-Acetamin 5-325 mg] 1 tab PO TID 03/25/19 Lisinopril 30 mg PO BID 03/25/19 Metoprolol Succinate [Toprol Xl] 50 mg PO BID 03/25/19 Nifedipine [Nifedipine ER] 90 mg PO DAILY 03/25/19 - Past Medical/Surgical History Diabetic: No -: HTN -: rheumatoid arthritis -: kidney failure -: R kidney cancer -: total knee replacement -: L little toe amputation -: BKA R -: upper neck fusion with broken screws -: wrist surgery -: R kidney removal - Family History Father History Unknown: Yes Mother Medical History: Other (see notes) Notes: no known medical history - Social History Alcohol use: No CD- Drugs: No Caffeine use: Yes Place of Residence: Home Review of Systems 10-point ROS is otherwise unremarkable General: Weakness, Malaise Respiratory: Shortness of Breath, SOB with Excertion Cardiovascular: Orthopnea, Edema Neurological: Weakness Physical Examination Temp Pulse Resp BP Pulse Ox 97.0 F 85 16 200/98 H 99 03/25/19 15:49 03/25/19 15:49 03/25/19 15:49 03/25/19 15:49 03/25/19 15:49 General: Oriented x3, Cooperative, Mild distress HEENT: Atraumatic, Mucous membr. moist/pink Neck: Supple, JVD distended Respiratory: Diminished Cardiovascular: Regular rate/rhythm, Edema Gastrointestinal: Soft and benign, Non-distended Musculoskeletal: No clubbing, No contractures Integumentary: No rashes, No cyanosis Neurological: Normal speech Laboratory Data (last 24 hrs) 03/25/19 07:40: WBC 9.0, Hgb 10.2 L, Hct 31.8 L, Plt Count 209 03/25/19 07:40: Sodium 141, Potassium 6.7 H*, BUN 62 H, Creatinine 13.30 H*, Glucose 90 Imagings Data: EXAM DESCRIPTION: RAD - Chest Single View - 03/25/2019 7:16 am CLINICAL HISTORY: Chest pain, shortness of breath, dyspnea COMPARISON: September 2018 TECHNIQUE: AP portable chest image was obtained 0715 hours . FINDINGS: No peripheral mass or consolidation. Interstitial and some scattered alveolar opacities are present in the lung murray, more so in the medial right base. Dialysis catheter is in place. Left hemidiaphragm elevation again noted. Heart and vasculature are normal. No measurable pleural effusion and no pneumothorax. No acute bony abnormality seen. No acute aortic findings suspected. IMPRESSION: Interstitial and alveolar opacification more so on the right lung base. Volume overload is favored over cardiac decompensation. Right base pneumonia is not excluded but lesser in likelihood as well. Conclusions/Impression: A/ ESRD on HD. Poor compliance with dialysis. Hyperkalemia. Acidosis. Diastolic CHF, A/C. HTN with CKD/ CHF. Anemia in CKD. ALEX/ Secondary HyperPTH. RA. P/ Continue current POC and Medications. Arrange for acute HD with aggressive UF as tolerated. Anti-hypertensives adjusted. No NSAIDs. AM labs. Daily weight. Thank you kindly for the consultation.
[2019-03-25 20:22] VITALS: O2SAT 95
[2019-03-25] MEDS ORDERED: CARISOPRODOL 350 MG TAB PO SCH (21:00)
[2019-03-25] MEDS ORDERED: METOPROLOL XL 50 MG TAB PO SCH (21:00)
[2019-03-25] MEDS ORDERED: LISINOPRIL 10 MG TAB PO SCH (21:00)
[2019-03-25] MEDS ORDERED: RAMIPRIL 5 MG CAP PO SCH (21:00)
[2019-03-25] MEDS: NIFEDIPINE XL 60 MG TABLET PO SCH (21:00)
[2019-03-25] MEDS: METOPROLOL XL 50 MG TAB PO SCH (21:27)
[2019-03-25] MEDS: DOXAZOSIN 4 MG TAB PO SCH (21:27)
[2019-03-26] MEDS: MORPHINE 2 MG/ML SYR IV PRN ×2 (04:45→09:52)
[2019-03-26 05:43] LABS: Absolute Lymphocytes (CBC) 1.5 K/uL (0.7-4.9); Absolute Monocytes 0.7 K/uL (0.1-1.3); Absolute Neutrophil 4.3 K/uL (1.8-8.0); Basophils % 1.3 % (0-1.3); Eosinophils % 4.1 % (0-4.4); Hematocrit 29.5 % (39.6-49.0); Lymphocytes % 21.6 % (15.3-44.8); MPV 7.7 fL (7.6-11.3); Monocytes % 9.8 % (3.3-12.3); RBC Red Blood Cell Count 3.57 M/uL (4.33-5.43)
[2019-03-26 06:02] LABS: Albumin 2.6 g/dL (3.4-5.0); Bilirubin Total 0.3 mg/dL (0.2-1.0); Potassium 4.9 mmol/L (3.5-5.1); Protein, Total 5.7 g/dL (6.4-8.2)
[2019-03-26 06:47] VITALS: BMI 30.6
[2019-03-26] MEDS: INSULIN -REGULAR HUMAN 50 UNIT/0.5 ML ML SQ SCH ×2 (07:30→11:30)
[2019-03-26] MEDS ORDERED: VANCOMYCIN/NS 1 gm 1 GM/250 ML BAG IV ONE (08:15)
[2019-03-26] MEDS ORDERED: CALCITROL 0.25 MCG CAP PO SCH (09:00)
[2019-03-26] MEDS: DOXAZOSIN 4 MG TAB PO SCH (09:00)
[2019-03-26] MEDS: cloNIDine HCl 0.1 MG TAB PO SCH ×2 (09:00→14:00)
[2019-03-26] MEDS ORDERED: VITAMIN D 5,000 UNIT CAP PO SCH (09:00)
[2019-03-26] MEDS ORDERED: NIFEDIPINE XL 90 MG TABLET PO SCH (09:00)
[2019-03-26] MEDS: HYDROCODONE/APAP 5/325 MG TAB PO SCH ×2 (09:00→14:00)
[2019-03-26] MEDS ORDERED: DOXAZOSIN 2 MG TAB ONE (09:03)
[2019-03-26] MEDS: METOPROLOL XL 50 MG TAB PO SCH (09:44)
[2019-03-26] MEDS: NIFEDIPINE XL 60 MG TABLET PO SCH (09:47)
[2019-03-26] MEDS: CA ACETATE 667 MG CAP PO SCH ×2 (09:48→11:54)
--- NOTE | 2019-03-26 10:27 | P.SSS ---
Patient History Date of Service: 03/26/19 Reason for admission: Missed HD with Volume overload History of Present Illness: This is a 48-year-old male with significant past medical history of hypertension , tobacco abuse, right-sided renal cell carcinoma now with end-stage renal disease on hemodialysis Monday who presented to the ED complaining of having shortness of breath and inability to lie flat. Patient stated that he missed his hemodialysis on Monday has seen his face he with his work. He started noticing that he was getting short of breath and thus decided to come to the hospital for further workup. Patient denies having any chest pain nausea vomiting abdominal pain or any other associated symptoms. In the ER patient had lab work and imaging done which was consistent with fluid overload secondary to end-stage renal disease and thus was admitted for further care. Allergies No Known Allergies Allergy (Unverified 10/13/17 16:55) Home Medications: Calcium Acetate 667 mg PO TID 03/25/19 Carisoprodol 350 mg PO BEDTIME 03/25/19 Clonidine HCl [Clonidine HCl ER] 0.1 mg PO TID 03/25/19 Doxazosin Mesylate [Cardura] 8 mg PO BID 03/25/19 Hydrocodone/Acetaminophen [Hydrocodone-Acetamin 5-325 mg] 1 tab PO TID 03/25/19 Lisinopril 30 mg PO BID 03/25/19 Metoprolol Succinate [Toprol Xl] 50 mg PO BID 03/25/19 Nifedipine [Nifedipine ER] 90 mg PO DAILY 03/25/19 - Past Medical/Surgical History Has patient received pneumonia vaccine in the past: Yes Diabetic: No -: HTN -: rheumatoid arthritis -: kidney failure -: R kidney cancer -: total knee replacement -: L little toe amputation -: BKA R -: upper neck fusion with broken screws -: wrist surgery -: R kidney removal - Family History Father History Unknown: Yes Mother -: Other (see notes) Notes: no known medical history - Social History Smoking Status: Current every day smoker Alcohol use: No CD- Drugs: No Caffeine use: Yes Place of Residence: Home Review of Systems 10-point ROS is otherwise unremarkable Physical Examination - Vital Signs Temperature: 97.3 F Blood Pressure: 159/92 Pulse: 76 Respirations: 16 Pulse Ox (%): 98 - Physical Exam General: Alert, In no apparent distress HEENT: Atraumatic, PERRLA, Mucous membr. moist/pink, EOMI, Sclerae nonicteric Neck: Supple, 2+ carotid pulse no bruit, No LAD, Without JVD or thyroid abnormality Respiratory: Clear to auscultation bilaterally, Normal air movement Cardiovascular: Regular rate/rhythm, Normal S1 S2 Gastrointestinal: Normal bowel sounds, No tenderness Musculoskeletal: No tenderness Integumentary: No rashes Neurological: Normal gait, Normal speech, Normal strength at 5/5 x4 extr, Normal tone, Normal affect Lymphatics: No axilla or inguinal lymphadenopathy - Diagnosis (Problem(s)) (1) Volume overload Current Visit: Yes Status: Acute Qualifiers: Hypervolemia type: other Qualified Code(s): E87.79 - Other fluid overload (2) End stage renal disease Current Visit: Yes Status: Chronic (3) Hypertension Current Visit: Yes Status: Chronic Qualifiers: Hypertension type: essential hypertension Qualified Code(s): I10 - Essential (primary) hypertension (4) Tobacco abuse Current Visit: Yes Status: Chronic Treatment Summary: Overall during the hospital stay patient remained stable Patient was initially admitted to the hospital for fluid overload most likely secondary to missed hemodialysis. Patient had hemodialysis done here in the hospital x2 and had marked improvement in his symptoms. At that time patient was then discharged home under stable condition was asked to continue on his normal hemodialysis schedule and was educated extensively and not missing any more hemodialysis. Patient demonstrate understanding and thus was discharged home under stable condition - Disposition Disposition: ROUTINE DISCHARGE
[2019-03-26 13:16] VITALS: BP 171/88; TEMP 97.9
--- NOTE | 2019-03-26 21:52 | P.PN ---
Date of Service: 03/26/19 Vital Signs Temp Pulse Resp BP Pulse Ox 97.9 F 67 16 171/88 H 97 03/26/19 12:00 03/26/19 12:00 03/26/19 12:00 03/26/19 12:00 03/26/19 12:00 Microbiology Results 03/25/19 07:40 Blood - Blood Aerobic Blood Culture - Preliminary 03/25/19 07:40 Blood - Blood Gram Stain - Preliminary 03/25/19 07:40 Blood - Blood Anaerobic Blood Culture - Preliminary No growth in 24 hours. 03/25/19 08:00 Blood - Blood Aerobic Blood Culture - Preliminary 03/25/19 08:00 Blood - Blood Gram Stain - Preliminary 03/25/19 08:00 Blood - Blood Anaerobic Blood Culture - Preliminary No growth in 24 hours. Assessment/ Plan: Nephrology. Feeling better but is requesting another HD. CPS improved without CP or SOB. No acute events overnight. Vitals, medications, blood work and imaging reviewed in the chart. General: Oriented x3, Cooperative, Mild distress HEENT: Atraumatic, Mucous membr. moist/pink Neck: Supple, JVD distended Respiratory: Diminished Cardiovascular: Regular rate/rhythm, Edema Gastrointestinal: Soft and benign, Non-distended Musculoskeletal: No clubbing, No contractures Integumentary: No rashes, No cyanosis Neurological: Normal speech Laboratory Data (last 24 hrs) 03/25/19 07:40: WBC 9.0, Hgb 10.2 L, Hct 31.8 L, Plt Count 209 03/25/19 07:40: Sodium 141, Potassium 6.7 H*, BUN 62 H, Creatinine 13.30 H*, Glucose 90 Imagings Data: EXAM DESCRIPTION: RAD - Chest Single View - 03/25/2019 7:16 am CLINICAL HISTORY: Chest pain, shortness of breath, dyspnea COMPARISON: September 2018 TECHNIQUE: AP portable chest image was obtained 0715 hours . FINDINGS: No peripheral mass or consolidation. Interstitial and some scattered alveolar opacities are present in the lung murray, more so in the medial right base. Dialysis catheter is in place. Left hemidiaphragm elevation again noted. Heart and vasculature are normal. No measurable pleural effusion and no pneumothorax. No acute bony abnormality seen. No acute aortic findings suspected. IMPRESSION: Interstitial and alveolar opacification more so on the right lung base. Volume overload is favored over cardiac decompensation. Right base pneumonia is not excluded but lesser in likelihood as well. Conclusions/Impression: A/ ESRD on HD. Poor compliance with dialysis. Hyperkalemia. Acidosis. Diastolic CHF, A/C. HTN with CKD/ CHF. Anemia in CKD. ALEX/ Secondary HyperPTH. RA. P/ Continue current POC and Medications. Arrange for acute HD with aggressive UF as tolerated. Counseled regarding dialysis compliance. No NSAIDs. AM labs. Daily weight. Case discussed with Dr. Berg.
== END 2019-03-26 16:20 | disposition home or self-care (01) ==
LOC: ER 06:51 → ERHOLD 08:52 → 2ND 10:07
PROVIDERS: ADMIT Family Medicine; ATTEND Family Medicine
DX: E87.79 Other fluid overload (principal); I13.2 Hypertensive heart and chronic kidney disease with heart failure and with stage 5 chronic kidney disease, or end stage renal disease; I50.30 Unspecified diastolic (congestive) heart failure; N18.6 End stage renal disease; D63.1 Anemia in chronic kidney disease; E87.5 Hyperkalemia; E87.2 Acidosis; I15.8 Other secondary hypertension; C64.1 Malignant neoplasm of right kidney, except renal pelvis; M06.9 Rheumatoid arthritis, unspecified; F17.200 Nicotine dependence, unspecified, uncomplicated; Z99.2 Dependence on renal dialysis; Z79.899 Other long term (current) drug therapy
CPT/HCPCS: 93005; 87040 ×2; 85025 ×2; 80048; 36415; 87205 ×2; 82962 ×6; 84484; 80053; 83880; 71045; 90935; 96375; 96374; 99285; J1940; J2270 ×5; Q4081; J1644 ×2; G0257; G0378 ×2; J3370

== ENCOUNTER 2020-04-10 11:11 | Day surgery (SDC) | payer OTHER ==
--- OUTSIDE RECORDS SUMMARY | 2020-04-10 11:16 | XMS REPORT | Clinical Summary ---
:1970 Author Organization [facility] [place] [address] Care Team Providers Name Role Phone Yoshi Nitesh Monge [facility] Sales Representative Metals UnavailAnh Jain [facility] Sales Representative Metals Zeke Nava [facility] Sales Representative Metals Unavailable Darling Goyal RN Registered Nurse Unavailable NINA Chand Registered Nurse Unavailable Idris Frank ResidentMD Resident Care Provider Allergies Active Allergy Reactions Severity Noted Date Comments No Known Allergies 06/27/2011 Medications Medication Sig Dispensed Refills Start Date End Date Status lancets 28 gauge use as directed 100 Each 5 12/05/2014 Active 3 times daily. albuterol (PROVENTIL Inhale 2 Puffs 20.1 g 3 12/05/2014 Active HFA) 90 mcg/actuation by mouth 4 inhaler times daily as needed for Wheezing. zolpidem (AMBIEN) 5 mg Take 1 tablet 30 tablet 3 11/26/2015 Active TabIndications: by mouth Insomnia, unspecified nightly at bedtime as needed for Insomnia. omeprazole (PRILOSEC) Take 2 capsules 180 capsule 2 11/26/2015 Active 20 mg delayed release by mouth daily. capsuleIndications: History of fusion of cervical spine, Gastroesophageal reflux disease, esophagitis presence not specified, Type 2 diabetes, uncontrolled, with retinopathy, Leg pain, left, Status post below knee amputation of right lower extremity FLUoxetine (PROZAC) 20 Take 1 capsule 30 capsule 5 11/26/2015 Active mg capsuleIndications: by mouth daily. Status post below knee amputation of right lower extremity insulin REGULAR Inject 10 Units 30 mL 6 11/26/2015 Active (NOVOLIN R, HUMULIN R) under the skin 100 unit/mL 3 times daily. injectionIndications: Type 2 diabetes, uncontrolled, with retinopathy insulin glargine Inject 75 Units 40 mL 5 11/26/2015 Active (LANTUS) 100 unit/mL under the skin injectionIndications: at bedtime Type 2 diabetes, nightly. uncontrolled, with retinopathy gabapentin (NEURONTIN) Take 1 tablet 270 tablet 2 11/26/2015 Active 600 mg by mouth 3 tabletIndications: times daily. History of fusion of cervical spine, Leg pain, left, Status post below knee amputation of right lower extremity lisinopril-hydrochlorot Take 1 tablet 0 11/26/2015 Active hiazide (ZESTORETIC) by mouth daily. 20-25 mg per tablet ketoconazole (NIZORAL) Apply to 30 g 4 11/26/2015 Active 2 % topical affected area creamIndications: daily. Toenail fungus albuterol (VENTOLIN Inhale 2 Puffs 26.8 g 2 11/26/2015 Active HFA,PROVENTIL by mouth 4 HFA,PROAIR HFA) 90 times daily as mcg/actuation needed for inhalerIndications: Wheezing. Cough traMADol (ULTRAM) 50 mg Take 2 tablets 120 tablet 1 12/31/2015 Active tabletIndications: Leg by mouth every pain, left, History of 8 hours as fusion of cervical needed for spine Pain. loratadine (CLARITIN) Take 1 tablet 90 tablet 1 01/07/2016 Active 10 mg by mouth daily. tabletIndications: Allergic rhinitis, unspecified allergic rhinitis type atorvastatin (LIPITOR) Take 1 tablet 90 tablet 3 01/07/2016 Active 20 mg by mouth at tabletIndications: Type bedtime 2 diabetes mellitus, nightly. uncontrolled fluticasone (FLONASE) Use 1 [place] in 16 g 5 01/07/2016 Active 50 mcg/actuation nasal each nostril sprayIndications: daily. Allergic rhinitis, unspecified allergic rhinitis type codeine-guaiFENesin Take 5 mL by 120 mL 0 01/25/2016 Active (CHERATUSSIN AC) 10-100 mouth 3 times mg/5 mL daily as needed syrupIndications: Cough for Cough. INSULIN SYRINGE 0.5mL Use to inject 100 Each 11 01/30/2016 Active 30GX5/16" (ULTRA Insulin 3 times COMFORT) daily. *Use a syringe-needleIndicatio new syringe ns: Medication refill each time* ACETAMINOPHEN-CODEINE Take 1 tablet 60 tablet 1 02/09/2016 Active #4 (TYLENOL/CODEINE #4) by mouth 2 300-60 mg per times daily as tabletIndications: needed for History of fusion of Pain. cervical spine Active Problems Problem Noted Date Pure hypercholesterolemia 01/07/2016 Left hip pain 02/18/2015 Type 2 diabetes mellitus, uncontrolled 12/24/2014 Microscopic hematuria 09/28/2014 S/P BKA (below knee amputation) 09/27/2014 Diabetic neuropathy 09/27/2014 Leukocytosis 09/27/2014 Inappropriate diet and eating habits 05/29/2014 Osteomyelitis 09/30/2013 Leg pain, left 08/05/2013 Proliferative diabetic retinopathy 07/03/2013 Tympanic membrane perforation 06/21/2013 Otorrhea 06/21/2013 Neoplasm of tongue 02/13/2013 Hearing loss 02/13/2013 GERD (gastroesophageal reflux disease) 12/04/2012 H/O osteomyelitis, right foot 07/23/2012 History of fusion of cervical spine - C6/C7 05/11/2011 Immunizations Name Administration Dates Next Due Influenza Vaccine 10/01/2013 PPV 23 Pneumococcal Polysaccaride 03/29/2013 Toradol 60mg/2ml Syringe 06/28/2011 Tropicamide 0.5% Eye-Amanda 15ml 06/28/2013, 06/28/2013 Family History Medical History Relation Name Comments Arthritis Father Diabetes Father Relation Name Status Comments Brother Alive x3 Father Mother Alive Sister Alive Social History Tobacco Use Types Packs/Day Years Used Date Current Some Day Smoker 0.5 3 Tobacco Cessation: Ready to Quit: No; Co unseling Given: Yes Alcohol Use Drinks/Week oz/Week Comments No Sex Assigned at Date Recorded Not on file Job Start Date Occupation Industry Not on file Not on file Not on file Travel History Travel Start Travel End No recent travel history available. Last Filed Vital Signs Not on file Plan of Treatment Health Maintenance Due Date Last Done Comments DM Foot Exam (Yearly) 10/09/2015 10/09/2014, 07/01/2013 DM Retinal Exam (Yearly) 01/29/2016 01/28/2015, 01/28/2015, 12/24/2014, Additional history exists DM HGBA1C (Yearly) 11/26/2016 11/26/2015, 01/16/2015, 10/24/2014, Additional history exists Colorectal Cancer Scrn Annual 2018 (FIT/FOBT) Age 50 to 75 Implants Implanted Type Area Blocker Automatic Device Shelf Model / Identifier Expiration Date Ser ial / Lot Vasquez Vent Tube Right: [employer] 04/04/2024 / Implanted: Qty: 1 on 09/03/2014 by Yobani Neal, ResidentMD at [facility] Ear(s), / Inner [id number] Results Not on fileafter 04/10/2019 Insurance Payer Benefit Plan / Subscriber ID Effective Phone Address T ype Group Dates [employer] xxxxxxxxx 2016-Prese [phone] [employer] [id number] [place] [address] Advance Directives Code Status Date Activated Date Inactivated Comments Full Code 09/25/2014 9:25 PM 09/30/2014 7:00 PM Full Code 09/25/2014 4:43 PM 09/25/2014 9:25 PM Full Code 05/28/2014 2:26 AM 05/29/2014 12:47 PM Full Code 01/12/2014 1:16 PM 01/13/2014 5:20 PM Full Code 09/30/2013 7:44 PM 10/02/2013 1:07 PM
--- OUTSIDE RECORDS SUMMARY | 2020-04-10 11:17 | XMS REPORT | Clinical Summary ---
:1970 Author Organization [facility] Address [address] [place] [address] Care Team Providers Name Role Phone Leroy Kinsey MD Primary Care Provider Unavailable Allergies No Known Allergies Medications Not on [...] Not on file Results Not on fileafter 04/10/2019 Insurance Payer Benefit Plan / Subscriber ID Type Phone Address Group MEDICARE MEDICARE A B xxxxxxxxxx Medicare MEDICAID - MEDICAID [facility] COMM STAR xxxxxxxxx Medicaid Contracted [employer] CARE PLAN
--- OUTSIDE RECORDS SUMMARY | 2020-04-10 11:18 | XMS REPORT | Continuity of Care Document ---
:1970 Author Organization [employer] Care Team Providers Name Role Phone [employer] Unavailable Un available Problems Problem Status Onset Classification Date Comments Sourc e Date Reported Hypertensive 10/05/20 01/29/2019 [facility] chronic kidney 18 disease with stage 5 chronic kidney disease or end stage renal disease UNK Active 06/19/[address] 18 End stage renal 01/29/2019 [place] disease Dependence on Active Problem 01/29/2019 [place] [facility] due to end stage renal disease (finding) Diabetes mellitus Active Problem 01/29/2019 [facility] (disorder) Diabetic Active Problem 01/29/2019 [facility] neuropathy (disorder) Generalized Active Problem 01/29/2019 [facility] chronic body pains (finding) Hypertensive Active Problem 01/29/2019 [facility] disorder, systemic arterial (disorder) Osteoarthritis Active Problem 01/29/2019 [facility] (disorder) 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) Renal mass Active Problem 01/29/2019 [place] (finding) Medications Medication Details Route Status Patient Ordering Order Source Instructions Provider Date Ancef + sterile Notes: (Same Active water 20 mL As: Ancef, 018 Kefzol) MEDICATION WASTE Product Size: 1000 mg Product Wasted: ___ mg Vancomycin 2001 mg: Active infuse over 018 [place] 2.5 hours For adult patients only: Round to nearest 250 mg per Medical Staff approval MEDICATION WASTE Product Size: 1000 mg Product Wasted: ___ mg meloxicam 15 mg 15 mg = 1 Active oral tablet tab, PO, 018 Daily, # 30 tab, 0 Refill(s) Acetaminophen 1 tab, PO, Active 325 MG / TID, PRN Hydrocodone Pain, # 60 Bitartrate 10 MG tab, 0 Oral Tablet Refill(s) [Spade 10/325] Trazodone 100 mg = 1 Active Hydrochloride tab, PO, 018 [place] 100 MG Oral Bedtime, # Tablet 30 tab, 0 Refill(s) metoprolol 50 mg = 1 Active tartrate [facility] tab[facility], # 180 tab, 0 Refill(s) lisinopril 30 mg 30 mg = 1 Active oral tablet tab, PO, 018 [facility] Daily, # 30 tab, 0 Refill(s) Allergies, Adverse Reactions, Alerts No Known Medication Allergies Immunizations No Data Provided for This Section Results Order Name Results Value Reference Date Interpretation Comments Thelma rce Range SPECIAL Hgb A1C 5.8 <=5.6 % 07/12 CHEMISTRY /2017 [facility] BLOOD BANK Antibody Negative 07/12 RESULTS Scrn (07/12/18 11:58 AM) [facility] BLOOD BANK ABO/Rh O POS 07/12 RESULTS /2018 [facility] ELECTROLYTE AGAP 10.2 10.0 - 07/[address] [facility] ELECTROLYTE eGFR 19 07/12 Result S /2017 Comment: The [facility] eGFR is calculated using the CKD-EPI formula. In most young, healthy individuals the eGFR will be >90 mL/min/1.73m2 . The eGFR declines with age. An eGFR of 60-89 may be normal in some populations, particularly the elderly, for whom the CKD-EPI formula has not been extensively validated. Use of the eGFR is not recommended in the following populations:< br/>
Adelina viduals with unstable creatinine concentration s, including patients and those with serious co-morbid conditions.<b r/>
Patie nts with extremes in muscle mass or diet.

The data above are obtained from the National Kidney Disease Education Program (NKDEP) which additionally recommends that when the eGFR is used in patients with extremes of body mass index for purposes of drug dosing, the eGFR should be multiplied by the estimated BMI. ELECTROLYTE Calcium Lvl 8.0 8.5 - 10.5 07/12 S /2017 [facility] ELECTROLYTE CO2 26 24 - 32 07/12 S /2017 [facility] ELECTROLYTE Creatinine 3.53 0.50 - 07/[address] [facility] ELECTROLYTE BUN 33 7 - 22 09 S /2017 [facility] ELECTROLYTE Glucose Lvl 86 70 - 99 / S /2017 [facility] ELECTROLYTE Chloride Lvl 108 95 - 109 07/12 S /2017 [facility] ELECTROLYTE Sodium Lvl 139 135 - 145 09/ S /2017 [facility] ELECTROLYTE Potassium 5.2 3.5 - 5.1 07/12 S Lvl /2017 [facility] HEMATOLOGY PTT 34.8 22.9 - 07/12 MH 35.8 /2017 [facility] HEMATOLOGY INR 0.94 0.85 - 07/12 MH 1.17 /2017 [facility] HEMATOLOGY PT 12.6 12.0 - 07/12 MH 14.7 /2017 [facility] HEMATOLOGY Platelet 259 133 - 450 09 /2017 [facility] HEMATOLOGY MPV 7.6 7.4 - 10.4 09 /2017 [facility] HEMATOLOGY Hct 37.0 42.0 - 07/12 54.0 /2017 [facility] HEMATOLOGY MCH 27.0 27.0 - 07/12 31.0 /2017 [facility] HEMATOLOGY MCHC 32.7 32.0 - 07/12 36.0 /2017 [facility] HEMATOLOGY RDW 15.7 11.5 - 07/12 14.5 /2017 [facility] HEMATOLOGY MCV 82.5 80.0 - 07/12 94.0 /2017 [facility] HEMATOLOGY Hgb 12.1 14.0 - 07/12 18.0 /2017 [facility] HEMATOLOGY RBC 4.49 4.70 - 07/12 6.10 /2017 [facility] HEMATOLOGY WBC 10.7 3.7 - 10.4 07/12 /2017 [facility] HEMATOLOGY Basophils 0.6 0.0 - 1.0 07/12 /2017 [facility] HEMATOLOGY Eosinophils 4.6 0.0 - 4.0 07/12 /2017 [facility] HEMATOLOGY Neutrophils 7.0 1.5 - 8.1 07/12 MH # /2018 [facility] HEMATOLOGY Lymphocytes 2.4 1.0 - 5.5 07/12 # /2017 [facility] HEMATOLOGY Monocytes # 0.8 0.0 - 0.8 09 /2017 [facility] HEMATOLOGY Lymphocytes 22.5 20.0 - 09 40.0 /2017 [facility] HEMATOLOGY Monocytes 7.2 2.0 - 12.0 07/12 /2017 [facility] HEMATOLOGY Eosinophils 0.5 0.0 - 0.5 07/12 # /2017 [facility] HEMATOLOGY Basophils # 0.1 0.0 - 0.2 07/12 [facility] HEMATOLOGY Segs 65.1 45.0 - 07/[address] [facility] Pathology Reports No Data Provided for This Section Diagnostic Reports Report Value Date Source Chest 2 views DX Clinical Indication: Coughing - preop 8 [facility] Comparison: None FINDINGS: The PA and lateral chest rad iographs shows normal lung volumes without interstitial or airspace opacities, pleural effusions or pneumothorax. There is elevation of the left hemidiaphragm. The cardiomediastinal contou rs are normal. The trachea is midline. A tunneled right IJ dialysis catheter terminates at the atriocaval junction. There are no clinically sign ificant osseous abnormalities noted. Patient has undergone lower cervical fusion. IMPRESSION: No chest radiographic evidence of acute cardiopu lmonary abnormality. SL: [id number] Consultation Notes No Data Provided for This Section Discharge Summaries No Data Provided for This Section History and Physicals No Data Provided for This Section Vital Signs Vital Sign Value Date Comments Source Respitory Rate 20 07/12/2018 [facility] Heart Rate 72 07/12/2018 [facility] Temperature Oral (F) 98 F 07/12/2018 [facility] Systolic (mm Hg) 136 [facility]12[facility] Diastolic (mm Hg) 86 07/12/[address] [facility] [address] BMI Calculated 31.96 07/12/2018 [facility] Weight 103.955 07/12/2018 [facility] Height 180.34 cm 07/12/2018 [facility] Encounters Location Location Encounter Encounter Reason Attending ADM TX Stat Source Details Type Number For Provider Date Date [facility] [id number] 07[facility]12 07[facility]12 [facility] Procedures Procedure Code Date Perfomer Comments Source Amputation [id number] [facility] Anterior spinal [id number] [facility] ast fusion for cervical spinal deformity BKA - Below knee [id number] [facility] amputation Insertion of [id number] [facility] tunnelled dialysis catheter using fluoroscopic guidance Knee replacement [id number] [facility] ORIF - Open [id number] [facility] reduction and internal fixation of fracture Tonsillectomy [id number] [facility] Assessment and Plan No Data Provided for This Section Plan of Care No Data Provided for This Section Social History Social History Date Source Social History TypeResponse 07/12/2018 [facility] Substance Abuse Use: Current. Type: Marijuana. Recreat ional Drug Route: Inhaled. Amount: 10 joints per day. Alcohol Past1 Smoking Status Current every day smoker; Type: marijuan a; Exposure to Tobacco Smoke self; Cigarette Smoking Last 365 Days Yes; Reg Smoking Cessation Counseling No2 entered on: 07/12/18 1quit 8 years [id number] joints per day Family History No Data Provided for This Section Advance Directives No Data Provided for This Section Functional Status No Data Provided for This Section
--- OUTSIDE RECORDS SUMMARY | 2020-04-10 11:20 | XMS REPORT | Continuity of Care Document ---
:1970 Author Organization [facility] t Address [address] [place] [address] Care Team Providers Name Role Phone Leroy Kinsey MD Primary Care Physician Unavailable Chip Albarado MD Attending Clinician Charly Saleh Attending Clinician Payers Payer Name Policy Type Policy Number Effective Date Expiration Date S ource Problems Condition Condition Condition Status Onset Resolution Last Treating Co mments Source Name Details Category Date Date Treatment Clinician Date UNK Diagnosis Active 2018-09-04 Mem oria 14 07:19:00 l UNK 00:00: [place] 00 Active 06/19/2018 [facility] Pure Pure Disease Active Varghese hyperchole hyperchole 3-03 He alth sterolemia sterolemia 00:00: 00 Left hip Left hip Disease Active Harri s pain pain 4-15 Health 00:00: 00 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 2-18 Health mellitus, mellitus, 00:00: uncontroll uncontroll 00 ed ed Microscopi Microscopi Disease Active 2013-11 H arris c c 1 Health hematuria hematuria 00:00: 00 S/P BKA S/P BKA Disease Active 2013-11 Abimael (below (below 11-27 Health knee knee 00:00: amputation amputation 00 ) ) Diabetic Diabetic Disease Active 2013-11 Harri s neuropathy neuropathy 11-27 He alth 00:00: 00 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 H arris is is 11-27 Health 00:00: 00 Inappropri Inappropri Disease Active H arris ate diet ate diet 7-24 Health and eating and eating 00:00: habits habits 00 Osteomyeli Osteomyeli Disease Active 2012-11 H arris tis tis 1-25 Health 00:00: 00 Leg pain, Leg pain, Disease Active Saeid ris left left 08-05 Health 00:00: 00 Proliferat Proliferat Disease Active H arris doris doris 8-28 Health diabetic diabetic 00:00: retinopath retinopath 00 y y Tympanic Tympanic Disease Active Harri s membrane membrane 816 Health perforatio perforatio 00:00: n n 00 Otorrhea Otorrhea Disease Active Harri s 8-16 Health 00:00: 00 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 4-10 Heal th 00:00: 00 Hearing Hearing Disease Active Abimael loss loss 4-10 Health 00:00: 00 GERD GERD Disease Active Abimael (gastroeso (gastroeso 1-29 He alth phageal phageal 00:00: reflux reflux 00 disease) disease) H/O H/O Disease Active Abimael osteomyeli osteomyeli 9-17 He alth tis, right tis, right 00:00: foot foot 00 History of History of Disease Active H arris fusion of fusion of 7-06 Heal th cervical cervical 00:00: spine - spine - 00 C6/C7 C6/C7 End stage Problem 2019-01-29 Me moria renal 11:55:01 l disease End Rob stage renal disease 01/29/2019 [facility] Dependence Problem Active 2019-01-29 M emoria on 11:55:01 l hemodialys Alex n is due to Dependence end stage on renal hemodialys disease is due to (finding) end stage renal disease (finding) Active Problem 01/29/2019 [facility] Diabetes Problem Active 2019-01-29 Mem oria mellitus 11:55:01 l (disorder) Diabetes He rmann mellitus (disorder) Active Problem 01/29/2019 [facility] Generalize Problem Active 2019-01-29 M emoria d chronic 11:55:01 l body pains Alex n (finding) Generalize d chronic body pains (finding) Active Problem 01/29/2019 [facility] Hypertensi Problem Active 2019-01-29 M emoria ve 11:55:01 l disorder, Rob systemic Hypertensi arterial ve (disorder) disorder, systemic arterial (disorder) Active Problem 01/29/2019 [facility] Osteoarthr Problem Active 2019-01-29 M emoria itis 11:55:01 l (disorder) Alex n Osteoarthr itis (disorder) Active Problem 01/29/2019 [facility] Post-infec Problem Active 2019-01-29 M emoria tive 11:55:01 l arthritis [place] (disorder) Post-infec tive arthritis (disorder) Active Problem 01/29/2019 [facility] Renal mass Problem Active 2019-01-29 M emoria (finding) 11:55:01 l Renal [place] mass (finding) Active Problem 01/29/2019 [facility] Hypertensi Problem 2017-2019-01-29 2019-01-29 Memoria ve chronic 12-05 11:55:01 11:55:01 l kidney 06:39: Rob disease Hypertensi 57 with stage ve chronic 5 chronic kidney kidney disease disease or with stage end stage 5 chronic renal kidney disease disease or end stage renal disease 10/05/2018 01/29/2019 [facility] Allergies, Adverse Reactions, Alerts Allergy Allergy Status Severity Reaction(s) Onset Inactive Treating Comm ents Source Name Type Date Date Clinician iodine DA Active SV 2019- [facility] 4-15 [place] 00:[facility]: [facility] 00 are [facility] No Known DA Active U [facility] Allergie 02-18 [place] 00[place] [facility] 00 [facility] [place] Known DA Active U 2016-11 [facility] Allergie 11-07 [place] 00:[place]: [place] 00 [facility] Family History Family Member Diagnosis Comments Start Date Stop Date Source Natural father Arthritis [facility] Natural father Diabetes [facility] Social History Social Habit Start Date Stop Date Quantity Comments Source History of tobacco Cigarette Smoker [facility] Sex Assigned At [facility] Social History 2018-07-12 2018-07-12 [facility] 17:34:34 17:34:34 Cigarettes smoked 2016-02-24 2016-02-24 [facility] current (pack per 00:00:00 00:00:00 day) - Reported Cigarette 2016-02-24 2016-02-24 [facility] pack-years 00:00:00 00:00:00 Alcohol intake 2016-02-24 2016-02-24 [facility] 00:00:00 00:00:00 Smoking Status Start Date Stop Date Source Current every day smoker 2016-03-27 00:00:00 [facility] Current some day smoker 2016-02-24 00:00:00 [facility] Medications Ordered Filled Start Stop Current Ordering Indication Dosage Frequency Signature Comments Components Source Medication Medication Date Date Medication? Clinician (SIG) Name Name Ancef + Yes Notes: Memoria sterile 07-12 (Same As: l water 20 mL 17:00: Anc, Herm tarsha 00 Kefzol) MEDICATION WASTE Product Size: 1000 mg Product Wasted: ___ mg Vancomycin Yes 2000 mg: Me moria 07-12 infuse l 17:00: over 2.5 Rob 00 hours For adult patients only: Round to nearest 250 mg per Medical Staff approval MEDICATION WASTE Product Size: 1000 mg Product Wasted: ___ mg meloxicam Yes 15 mg = 1 Mem oria 15 mg oral 07-12 tab, PO, l tablet 16:39: Daily, # [place] 00 30 tab, 0 Refill(s) Acetaminoph Yes 1 tab, PO, Memoria en 325 MG / 07-12 TID, PRN l Hydrocodone 16:38: Pain, # 60 Rob Bitartrate 00 tab, 0 10 MG Oral Refill(s) Tablet [Wilson 10/325] Trazodone Yes 100 mg = 1 Me moria Hydrochlori 06 tab, PO, l de 100 MG 16:38: Bedtime, # He rmann Oral Tablet 00 30 tab, 0 Refill(s) metoprolol Yes 50 mg = 1 Me moria tartrate 50 07-12 tab, PO, l mg oral 16:37: BID, # 180 Herm tarsha tablet 00 tab, 0 Refill(s) lisinopril Yes 30 mg = 1 Me moria 30 mg oral 07-12 tab, PO, l tablet 16:37: Daily, # Rob 00 30 tab, 0 Refill(s) ACETAMINOPH Yes History of 1{tbl} Take 1 Varghese EN-CODEINE 4-05 fusion of tablet by User Replay #4 00:00: cervical mouth 2 (TYLENOL/CO 00 spine times DEINE #4) daily as 300-60 mg needed for per tablet Pain. INSULIN Yes Medication 1{syrin Use to Limundo SYRINGE 3-26 refill ge} inject Health 0.5mL 00:00: Insulin 3 30GX5/16" 00 times (ULTRA daily. COMFORT) *Use a new syringe-nee syringe dle each time* codeine-gua Yes Cough 5mL Take 5 mL Varghese iFENesin 3-21 by mouth 3 Healt h (CHERATUSSI 00:00: times N AC) 00 daily as 10-100 mg/5 needed for mL syrup Cough. loratadine Yes Allergic 10mg QD Take 1 H arris (CLARITIN) 3-03 rhinitis, tablet by User Replay 10 mg 00:00: unspecified mouth tablet 00 allergic daily. rhinitis type atorvastati Yes Type 2 20mg Take 1 Escudero rris n (LIPITOR) 3-03 diabetes tablet by User Replay 20 mg 00:00: mellitus, mouth at tablet 00 uncontrolle bedtime d nightly. fluticasone Yes Allergic 1{spray QD Use 1 V[place]hese (FLONASE) 3-03 rhinitis, } [place] in H ealth 50 00:00: unspecified each mcg/actuati 00 allergic nostril on nasal rhinitis daily. spray type traMADol 2015- Yes History of 100mg Take 2 Varghese (ULTRAM) 50 2-25 fusion of tablets by [facility] mg tablet 00:00: cervical mouth 00 spine every 8 hours as needed for Pain. zolpidem Yes Insomnia, 5mg Take 1 Escudero rris (AMBIEN) 5 1-21 unspecified tablet by [facility] mg Tab 00:00: mouth 00 nightly at bedtime as needed for Insomnia. omeprazole 2015- Yes Status post 40mg QD Take 2 V[place]hese (PRILOSEC) 1-21 below knee capsules Health 20 mg 00:00: amputation by mouth delayed 00 of right daily. release lower capsule extremity FLUoxetine Yes Status post 20mg QD Take 1 [place]se (PROZAC) 20 1-21 below knee capsule by [facility] mg capsule 00:00: amputation mouth 00 of right daily. 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 insulin Yes Type 2 75U Inject 75 Saeid ris glargine 1-21 [facility] 00:00: uncontrolle under the 100 unit/mL 00 d, with skin at injection retinopathy bedtime nightly. gabapentin Yes Status post 600mg Take 1 Varghese (NEURONTIN) 1-21 below knee tablet by [facility] 600 mg 00:00: amputation mouth 3 tablet 00 of right times lower daily. extremity lisinopril- Yes 1{tbl} QD Take 1 Escudero rris hydrochloro 1-21 tablet by [facility] thiazide 00:00: mouth (ZESTORETIC 00 daily. ) 20-25 mg per tablet ketoconazol 2015- Yes Toenail QD Apply to Varghese e (NIZORAL) 1-21 fungus affected He alth 2 % topical 00:00: area cream 00 daily. albuterol Yes Cough 2{puff} Inhale 2 Varghese (VENTOLIN 1-21 Puffs by [facility] HFA,PROVENT 00:00: mouth 4 [place] 00 times HFA,PROAIR daily as HFA) 90 needed for mcg/actuati Wheezing. on inhaler lancets 28 Yes use as Harri s gauge 1-30 [facility] Health 00:00: 3 times 00 daily. albuterol Yes 2{puff} Inhale 2 H arris (PROVENTIL 1-30 Puffs by Healt h HFA) 90 00:00: mouth 4 mcg/actuati 00 times on inhaler daily as needed for Wheezing. Immunizations Ordered Immunization Filled Immunization Date Status Commen ts Source Name Name Influenza Vaccine 2013-10-01 Completed [facility] 00:00:00 Tropicamide 0.5% 2013-06-28 Completed [facility] Eye-Amanda 15ml 00:00:00 Tropicamide 0.5% 2013-06-28 Completed [facility] Eye-Amanda 15ml 00:00:00 PPV 23 Pneumococcal 2013-03-29 Completed [employer] [facility] Polysaccaride 00:00:00 Toradol 60mg/2ml 2011-06-28 Completed [facility] ealth Syringe 00:00:00 Vital Signs Vital Name Observation Time Observation Value Comments Source Respitory Rate 2018-07-12 17:23:00 Ministerio Crawford Heart Rate 2018-07-12 17:23:00 [facility] Temperature Oral (F) 2018-07-12 17:23:00 98 F [facility] Systolic (mm Hg) 2018-07-12 17:23:00 Pete riaroddy Rivas Diastolic (mm Hg) 2018-07-12 17:23:00 [facility] orial Rob BMI Calculated 2018-07-12 17:01:00 Ministerio Crawford Weight 2018-07-12 17:01:00 [facility] Height 2018-07-12 17:01:00 180.34 cm [facility] Procedures Procedure Date / Time Performed Performing Clinician [facility] e Amputation [facility] Anterior spinal fusion for Memor ial Rob cervical spinal deformity BKA - Below knee Gerard Johnson n amputation Insertion of tunnelled [facility] dialysis catheter using fluoroscopic guidance Knee replacement Gerard Alex n ORIF - Open reduction and Ministerio Crawford internal fixation of fracture Tonsillectomy [facility] Plan of Care Planned Activity Planned Date Details Comments Source Future Scheduled Test 2018 00:00:00 Colorectal Cancer Scrn [facility] Annual (FIT/FOBT) Age 50 to 75 [code = Colorectal Cancer Scrn Annual (FIT/FOBT) Age 50 to 75] Future Scheduled Test 2016-11-26 00:00:00 DM HGBA1C (Yearly) [facility] [code = DM HGBA1C (Yearly)] Future Scheduled Test 2016-01-29 00:00:00 DM Retinal Exam [facility] (Yearly) [code = DM Retinal Exam (Yearly)] Future Scheduled Test 2015-10-09 00:00:00 DM Foot Exam (Yearly) [facility] [code = DM Foot Exam (Yearly)] Encounters Start End Encounter Admission Attending Care Care Encounter Source Date/Time Date/Time Type Type Clinicians Facility Department ID 2020-04-01 2020-04-01 Office CODY Albarado [id number] 14:27:38 15:31:19 Visit Chip SPECIALTY [id number] [facility] [id number] CENTER AT [phone] [place] [address] [place] [address] 2018-07-12 2018-07-12 Out[place] Sale[place] [id number] 10:45:00 16:00:00 Charly 00 Antelmo Results Test Description Test Time Test Comments Results Result [facility] e Comments SURGICAL SPECIMENS 2020-02-21 14:26:00 --------RUN DATE: 02/21/20 [place] [facility] - [facility] PAGE 1 RUN TIME: 0967 Specimen Inquiry RUN USER: INTERFACE --------PATIENT: ROSY SHERWOOD LOC: G U #: [id number] AGE/SX: 49/M ROOM: RE02/20/20[facility] DR: Saroj Coates MD : 68 BED: DIS: STATUS: [facility] TLOC: -------- SPEC #: [id number] RECD: 02/20/20 STATUS: [facility] #: [id number] BENEDICTO: 02/20/[address] [facility] DR: Saroj Coates MD ENTERED: 02/20/20 SP TYPE: SURG OTHR DR: ORDERED: PATHGM3, PATH SPEC, H E STAIN HISTOLOGY: TISSUE ID BLK PCS GHADA LEV / PROCEDURE DISPOSITION ____ ___ ___ ___ ___ PILONIDAL CYST A 5 1 TISSUES: A. PILONIDAL CYST - Pilonidal Abscess CLINICAL HISTORY Pilonidal Abscess COMMENT Sections of the specimen demonstrate a benign cyst lined with squamous epithelium with associated acute and chronic inflammation and dermal fibrosis. Areas suggestive of abscess formation are noted and are compatible with cyst rupture. No definitive hair shafts are identified, but the findings could be compatible with pilonidal cyst in the proper clinical setting. The differential diagnosis could include a ruptured epidermal inclusion cyst. No atypia or malignancy is identified. FINAL DIAGNOSIS A-SKIN AND SUBCUTANEOUS TISSUE, PILONIDAL ABSCESS, EXCISION: - Benign squamous cyst with associated acute and chronic inflammation, dermal fibrosis and findings suggestive of rupture with abscess formation. - See comment. GROSS DESCRIPTION PILONIDAL ABSCESS: Specimen consists of a sandoval skin ellipse which measures 6.2 x 1.7 which is excised to a depth of 2.5 cm. There is a crease down the middle of the skin ellipse. Near one area of the deep margin, there is a defect which may be associated with a subcutaneous tissue cyst or lesion. The specimen is unoriented. The margins are inked black. The specimen is serially sectioned. In the midportion of the specimen is a hemorrhagic area in the deep dermis/subcutaneous tissue which may represent a portion of cyst or abscess which measures 1 x 0.5 cm. A separate fibrous area with small foci of hemorrhage is noted in the deep dermis/subcutaneous tissue which measures approximately 1 x 1 x 1 cm. [employer] sections are submitted as follows: SECTION CODE: CONTINUED ON NEXT PAGE --------RUN DATE: 02/21/20 [place] [facility] - LAB PAGE 2 RUN TIME: 1427 Specimen Inquiry RUN USER: INTERFACE --------SPEC #: [id number] PATIENT: ROSY SHERWOOD #[id number] (Continued) GROSS DESCRIPTION (Continued) A1-A2: First described small area A3-A5: Larger second described nodule RAB/th MICROSCOPIC DESCRIPTION Microscopic performed. Signed SIGNATURE ON FILE AlekseyRosemarie MD 02/21/20 1426 -------- END OF REPORT GLUBED 2020-02-20 13:17:00 Test Item Value Reference Range Interpretation Comme nts GLUBED (test code = GLUBED) 101 MG/DL 70-105 N BASIC METABOLIC [id number] 06:39:00 Test Item Value Reference Range Interpretation Comments SODIUM (test code = 131 MMOL/L 136-143 L NA) POTASSIUM (test code 5.8 MMOL/L 3.5-5.1 H = K) CHLORIDE (test code = 91 MMOL/L 98-107 L CL) CARBON DIOXIDE (test 27 mmol/L 24-31 N code = CO2) GLUCOSE (test code = 89 mg/dL 70-104 N GLU) BLOOD UREA NITROGEN 50.4 MG/DL 7.0-21.0 H (test code = BUN) GLOMERULAR FILTRATION 6 >60 L The es timated RATE (test code = glomerular filtration GFR) rate is compute d usingpatient ra ce, age (>18), sex, and serum creatinine. If anyof the needed data elements are mi ssing the Laboratory cannot compute an yesi mation of the glomerul ar filtration rate . CREATININE (test code 10.3 mg/dL 0.8-1.5 HH Critic al Value = CREAT) reported Alayna aponte Name:REVA Last Name:DAVID DE LA CRUZ READ BACK AND VERIFIEDby BEBETO BO, on 02/20/20, @ 0637. CALCIUM (test code = 8.8 mg/dL 8.8-10.2 N CA) CBC W/AUTO [id number] 06:35:00 Test Item Value Reference Range Interpretation Comments WHITE BLOOD CELL (test code = 8.8 x10 3/uL 4.8-10.8 N WBC) RED BLOOD CELL (test code = 3.46 x10 6/uL 4.70-6.10 L RBC) HEMOGLOBIN (test code = HGB) 9.5 g/dL 14.5-20 L HEMATOCRIT (test code = HCT) 29.7 % 42.0-52.0 L MEAN CELL VOLUME (test code = 85.8 fL 80.0-94.0 N MCV) MEAN CELL HGB (test code = MCH) 27.5 pg 27-31 N MEAN CELL HGB CONCENTRATION 32.0 G/DL 33-36.5 L (test code = MCHC) RED CELL DISTRIBUTION WIDTH 14.6 % 12.9-16.9 N (test code = RDW) PLATELET COUNT (test code = 150 150-440 N PLT) MEAN PLATELET VOLUME (test code 9.5 fL 8.9-12.4 N = MPV) NEUTROPHIL % (test code = NT%) 67.9 % 42.2-75.2 N LYMPHOCYTE % (test code = LY%) 20.0 % 20.5-51.1 L MONOCYTE % (test code = MO%) 7.9 % 1.7-9.3 N EOSINOPHIL % (test code = EO%) 3.1 % 0.0-7.0 N BASOPHIL % (test code = BA%) 0.6 % 0-2.5 N NEUTROPHIL # (test code = NT#) 5.99 x10 3/uL 1.80-7.70 N LYMPHOCYTE # (test code = LY#) 1.76 x10 3/uL 1.00-4.80 N MONOCYTE # (test code = MO#) 0.70 x10 3/uL 0.00-0.80 N EOSINOPHIL # (test code = EO#) 0.27 x10 3/uL 0.00-0.45 N BASOPHIL # (test code = BA#) 0.05 x10 3/uL 0.0-0.20 N SPECIAL [id number] 17:02:005.8[facility] 2018-07-12 16:58:00Negative (07/12/18 11:58 AM)[facility] 2018-07-12 16:58:0010.2[facility] [id number] 16:58:0019[facility] PudcmkdDAAGCUDONJBJ7397-49-63 16:58:008.0[facility] WnxucjtXBRGDHEKWMBB9809-34-58 16:58:0026[facility] JfdymdiVGQTXTTFVHWL0023-36-78 16:58:003.53[facility] Rob HYSLLAWFVMIJ2540-33-67 16:58:0033[facility] PihyuqwRWKGJTNIZKVV5760-22-83 16:58:00 86[facility] AytbhllBUZJHASTMTKH6639-26-26 16:58:05739Qumzbdxz HermannELECTROLYTES 2018-07-12 16:58:13005Bwtkfhdo IzvhkkqPCWXOMTLDJVU1919-77-28 16:58:005.2[facility] PonimuiKBMVDUETIH8310-11-10 16:58:00 Test Item Value Reference Range Interpretation Comments PTT (test code = PTT) 34.8 s 22.9-35.8 [id number] 16:58:00 Test Item Value Reference Range Interpretation Comments INR (test code = INR) 0.94 1 0.85-1.17 [id number] 16:58:00 Test Item Value Reference Range Interpretation Comments PT (test code = PT) 12.6 s 12.0-14.7 [id number] 16:58:85877Gbarzvbv HermannHEMATOLOGY 2018-07-12 16:58:007.6[facility] SrwcxbtSLQQCCVDQE0320-70-46 16:58:0037.0[facility] XmfydvhOLUHUBSFVS4780-83-04 16:58:00 Test Item Value Reference Range Interpretation Comments MCH (test code = MCH) 27.0 pg 27.0-31.0 [facility] Arlington[facility]dhbptpPTQWHWBSUS1577-74-90 16:58:0032.7[facility]annHEMATOLOGY 2018-07-12 16:58:0015.7[facility] JbtidkfGKLVSLYOBU5797-63-39 16:58:0082.5[facility] LwmptkqSUFSKLFMRY2881-05-80 16:58:0012.1[facility] ZgmqkheWCUJENWFYF1780-89-00 16:58:004.49[facility] NhmaimvHUFDRPCRXX4564-31-78 16:58:0010.7[facility] [place] NHHRUMAPSB0114-18-63 16:58:000.6[facility] UmnvihsFHAOVSDGIA1636-82-93 16:58:004.6 [facility] XyytkfzLIHDWVBNTS6237-44-15 16:58:007.0[facility] HermannHEMATOLOGY 2018-07-12 16:58:002.4[facility] LmotpjnKDJEHEJUSY6814-52-99 16:58:000.8[facility] FmooiluQICTTKEZGZ3239-26-70 16:58:0022.5[facility] PeuqdcgUQWUJASEIO3404-09-75 16:58:007.2[facility] PjzmndlTOVTFMIZXY5666-98-53 16:58:000.5[facility] Rob IKQFKPCDGI4745-12-36 16:58:000.1[facility] KqsbupoPOUNJUJLYX7897-95-39 16:58:00 65.1[facility] [place]
--- OUTSIDE RECORDS SUMMARY | 2020-04-10 11:21 | XMS REPORT | Summary of Care ---
:1970 Author Organization [facility] - [facility] Address [address] [place] [address] Care Team Providers Name Role Phone Vicente Hussien Insurance Hmo Antolin Adkins Primary Care Provider Reason for Referral (Routine) Status Reason Specialty Diagnoses / Referred By Contact Refe rred To Procedures Contact New Request Diagnoses ESRD (end stage renal disease) Tian Ryder MD Killam, Ronald Procedures Discharge Follow-up: PCP ROSMERY ADKINS; 3-5 Days [address] [facility]. [address] [facility] [address] [place], [place] [address] [place], [place] Phone: [phone] Fax: (Routine) Status Reason Specialty Diagnoses / Referred By Referred To Procedures Contact Contact New Request Vascular Procedures Abdulaziz Elias, Sonography UNILATERAL DUPLEX SCAN OF ARTERY BY [address] [facility] [place] [address] MRI/CAT Scan (STAT) Status Reason Specialty Diagnoses / Referred By Referred To Procedures Contact Contact New Request Diagnostic Diagnoses Post-op pain Tala Blanton Radiology Procedures CT Abdomen/Pelvis W/O Contrast J, DO [address] [place] [address] Reason for Visit Reason Comments Pain ULTRASOUND Auth/Cert Status Reason Specialty Diagnoses / Referred By Referred To Procedures Contact Contact Emergency Medicine Ad[facility] Em ergency Dept [address] [place] [address] Fax: Encounter Details Date Type Department Care Team Description 02/25/2020 - Emergency ADC Medicine Surgery Blake Blanton DO [address] [place], [place] [id number] Hyperkalemia 02/26/2020 Unit Abdulaziz Elias MD [address] [place] [address] [id number] [facility] [address] [place], [place] [id number] Allergies No Known Allergiesdocumented as of this encounter (statuses as of 02/26/2020) Medications Medication Sig Dispensed Refills Start Date End Date Status lisinopril 30 mg Take 30 mg by 0 Active tablet mouth daily. metoprolol Take 50 mg by 0 Activ e tartrate 50 mg mouth 2 (two) tablet times daily. cloniDINE 0.1 mg Take 0.1 mg 0 A ctive tablet by mouth 3 (three) times daily as needed. NIFEdipine XL 90 Take 90 mg by 11 01/28/2019 Active mg 24 hr tablet mouth daily. HYDROcodone-acetam TK 1 T PO 0 08/30/2019 Active inophen 10-325 mg TID PRF NECK tablet PAIN calcium acetate TAKE 1 0 08/28/2019 Act doris 667 mg capsule CAPSULE BY MOUTH THREE TIMES DAILY WITH MEAL.ALSO TAKE 1 CAPSULE BY MOUTH TWICE DAILY WITH SNACK doxycycline Take 100 mg 0 Active hyclate 100 mg by mouth capsule every 12 (twelve) hours. carisoprodol Take 350 mg 0 Disco ntinued (SOMA) 350 mg by mouth at 0 (Alt ernate tablet bedtime. therapy) documented as of this encounter (statuses as of 02/26/2020) Active Problems Problem Noted Date Hyperkalemia 02/25/2020 Chest pain 11/19/2019 Immature arteriovenous fistula 08/05/2019 Overview: Added automatically from request for justo mendiolay [id number] Shortness of breath 03/28/2019 Pulmonary edema 03/27/2019 Acute on chronic diastolic congestive heart failure Essential hypertension 03/27/2019 Type 2 diabetes mellitus without complication, without long-term current 03/27/2019 use of insulin ESRD (end stage renal disease) 02/21/2019 Overview: Added automatically from request for jusot wagner [id number] End stage chronic kidney disease 10/01/2018 Overview: Added automatically from request for justo wagner [id number] Pain management 09/19/2018 Port-site hernia 09/15/2018 Renal mass, right 09/10/2018 Malignant neoplasm of right kidney 08/23/2018 Overview: Added automatically from request for justo wagner [id number] HCV antibody positive 06/22/2018 Positive 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 06/22/2018 Avascular necrosis of lunate 05/21/2018 Overview: Added automatically from request for justo wagner [id number] H/O rheumatoid arthritis 05/01/2018 Immunization counseling 05/01/2018 Therapeutic drug monitoring 05/01/2018 At risk for bone density loss 05/01/2018 ESRD (end stage renal disease) on dialysis 05/01/2018 Pain in joint, multiple sites 05/01/2018 Idiopathic gout, unspecified chronicity, unspecified s ite 05/01/2018 Bursitis of both shoulders 05/01/2018 ESR raised 05/01/2018 Foot pain, left 02/06/2018 Perirectal abscess 02/04/2018 CKD (chronic kidney disease) stage 4, GFR 15-29 ml/min 02/04/2018 Foot ulcer due to secondary DM 01/07/2018 Metabolic acidosis 01/06/2018 Obesity (BMI 30-39.9) 01/06/2018 documented as of this encounter (statuses as of 02/26/2020) Immunizations Name Administration Dates Next Due Influenza Virus Vaccine Quad .5 mL IM 6+ MO 09/12/2018 Influenza Virus Vaccine Quad IM 3+ YRS 01/07/2018 Pneumococcal Polysaccharide, PPSV23 (PNEUMOVAX) 01/07/2018 documented as of this encounter Social History Tobacco Use Types Packs/Day Years Used Date Never Smoker Smokeless Tobacco: Never Used Tobacco Cessation: Counseling Given: No Comments: jessica daily Alcohol Use Drinks/Week oz/Week Comments No quit 5 years ago Sex Assigned at Date Recorded Not on file Job Start Date Occupation Industry Not on file Not on file Not on file Travel History Travel Start Travel End No recent travel history available. documented as of this encounter Last Filed Vital Signs Vital Sign Reading Time Taken Comments Blood Pressure 209/116 02/26/2020 4:12 PM CDT Pulse 81 02/26/2020 4:12 PM CDT Temperature 37.1 C (98.8 F) 02/26/2020 4:12 PM CDT Respiratory Rate 20 02/26/2020 4:12 PM CDT Oxygen Saturation 96% 02/26/2020 3:30 PM CDT Inhaled Oxygen Concentration - - Weight 96 kg (211 lb 10.3 oz) 02/26/2020 4:12 PM CDT Height 177.8 cm (5' 10") 02/25/2020 12:02 PM CDT Body Mass Index 30.37 02/25/2020 12:02 PM CDT documented in this encounter Discharge Instructions Mel Crawford - 02/26/2020 9:38 AM CDTYour follow up appointment with Dr Damian MondayMarch 10 @ 10:[address] [place], [place] [phone] If you need to make changes to this appointment please call the office. *Please call your insurance company and have the doctor they have listed changed to Dr Damian. Additional Yvonne Kerr RN - 02/26/2020 Patient Discharge Instructions Discharge date: 02/26/2020 Procedure(s): Discharge Orders Discharge Follow-up: PCP ROSMERY ADKINS; 3-5 Days To PCP: ROSMERY ADKINS [[id number]] Patient's Preferred Location: Unknown Discharge Disposition: HOME, (AHR) When (Patients with risk for unplanned readmission score over 16 or those noted as Hospital Dependent should follow up within 7 days with PCP or primary DX specialist): 3-5 Days Risk of Unplanned Readmission:( Score greater than 16 indicates high risk) 23 Renal II (2 g Na, 2 g K, 60 g Protein, 900 mg Phos) Diabetic Consistent Carbohydrates (1800 Calorie)Diet - includes HS Snack; Texture: Regular. Texture Regular. Diabetic: No Discharge Condition - Discharge Condition: FAIR Discharge Activity Discharge Activity: As Tolerated VTE Propylaxis- Was ordered during hospitalization Take Home Medications These are medications ordered for you by your healthcare provider. Do not take any other medications or supplements unless advised by your healthcare provider. Current Discharge Medication List CONTINUE these medications which have NOT CHANGED Details doxycycline hyclate 100 mg capsule Take 100 mg by mouth every 12 (twelve) hours. metoprolol tartrate 50 mg tablet Take 50 mg by mouth 2 (two) times daily. calcium acetate 667 mg capsule TAKE 1 CAPSULE BY MOUTH THREE TIMES DAILY WITH MEAL.ALSO TAKE 1 CAPSULE BY MOUTH TWICE DAILY WITH SNACK HYDROcodone-acetaminophen 10-325 mg tablet TK 1 T PO TID PRF NECK PAIN Refills: 0 NIFEdipine XL 90 mg 24 hr tablet Take 90 mg by mouth daily. Refills: 11 cloniDINE 0.1 mg tablet Take 0.1 mg by mouth 3 (three) times daily as needed. lisinopril 30 mg tablet Take 30 mg by mouth daily. Additional Resources You may want to contact these organizations for further information on smoking and how to quit. [employer], http://www.lungusa.org/stop-smoking/ [employer], http://www.cancer.org/Healthy/StayAwayfromTobacco/index [place] [employer], http://www.heart.org/HEARTORG/GettingHealthy/QuitSmoking/Quit-Smoking_[facility] _001085_SubHomePage.jsp AttachmentsThe following attachments cannot be sent through Care Everywhere. Managing Post-Op Pain at Home (Sinhala)Opioid Medicines, Taking (Sinhala) documented in this encounter Progress Notes Trav Buckley RN - 02/26/2020 3:05 PM CDT Care Management Discharge Disposition Note (DCDN) 5-2-1 Interventions: Disease specific education;Intensive medication reconciliation/management;Teachback;Clear discharge plan;Follow-up appointments 5-2-1 Providers: Physician;Wind Farm Operations Manager/Production Troubleshooter 5-2-1 Patient Capacity Improvements: Avoidance of adverse events/readmission Discharge Plan for ongoing care and services: Is this a new referral: Patient Choice completed for referred services: DME location: Other DME location: Durable Medical Equipment: Home Health location: Discharge location(s): Patient choice completed for referred services: Discussed with patient/patients family involved in decision making: Yes Patient or family caregiver understands, and agrees with discharge plan. Community resources/referrals made or provided to patient: No Resources/Referrals: Transportation: Private Vehicle(Bridgette Davis ex [phone]) Mental Status: Alert & Oriented to Person,Place & Time Living Arrangement: Home Other living arrangement: Address of living arrangement: [address] [place], [place] Funding Resources: Medicare A & B Nursing informed of discharge plan: Name of RN informed: Estimated discharge date: 02/26/20 Time: Additional Information: CM/SW Name & Contact number: Trav Buckley RN BSN not for patient use [email or web address] The following information has been provided to the facility noted above: reason for the patient discharge or transfer; patients physical and psychosocial status; summary of care, treatment, servicesprovided to patient; and the patient progress toward goals. 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 Alert awake and oriented Heart : S1S2+ CMP NA (mmol/L) Date Value 02/26/2020 136 02/25/2020 136 02/25/2020 135 02/25/2020 135 11/26/2019 136 K (mmol/L) Date Value 02/26/2020 5.9 (H) 02/25/2020 5.4 (H) 02/25/2020 6.0 (H) 02/25/2020 6.2 (HH) 11/26/2019 4.4 CALCIUM (mg/dL) Date Value 02/26/2020 8.6 02/25/2020 8.6 02/25/2020 8.0 (L) 02/25/2020 8.5 (L) 11/26/2019 8.8 CL (mmol/L) Date Value 02/26/2020 98 02/25/2020 98 02/25/2020 98 02/25/2020 98 11/26/2019 99 BUN (mg/dL) Date Value 02/26/2020 68 (H) 02/25/2020 66 (H) 02/25/2020 64 (H) 02/25/2020 60 (H) 11/26/2019 43 (H) CREATININE (mg/dL) Date Value 02/26/2020 13.80 (H) 02/25/2020 13.21 (H) 02/25/2020 12.45 (H) 02/25/2020 11.72 (H) 11/26/2019 10.10 (H) GLUCOSE (mg/dL) Date Value 02/26/2020 72 02/25/2020 61 (L) 02/25/2020 76 02/25/2020 92 11/26/2019 102 CO2 TOTAL (mmol/L) Date Value 02/26/2020 23 02/25/2020 23 02/25/2020 22 (L) 02/25/2020 23 11/26/2019 27 ALBUMIN (g/dL) Date Value 11/26/2019 3.7 11/19/2019 4.7 07/19/2019 4.4 03/26/2019 3.9 09/19/2018 3.6 T PROTEIN (g/dL) Date Value 11/26/2019 6.5 11/19/2019 8.1 07/19/2019 7.4 03/26/2019 6.9 09/19/2018 7.0 TOTAL BILI (mg/dL) Date Value 11/26/2019 0.3 11/19/2019 0.9 07/19/2019 0.5 03/26/2019 0.5 09/19/2018 0.3 BILI UNCON (mg/dL) Date Value 11/26/2019 0.0 (L) 11/19/2019 0.0 (L) BILI CONJ (mg/dL) Date Value 11/26/2019 0.0 11/19/2019 0.0 ALT(SGPT) (U/L) Date Value 07/19/2019 22 03/26/2019 14 09/19/2018 12 09/14/2018 11 06/18/2018 22 ALTv (U/L) Date Value 11/26/2019 11 11/19/2019 14 AST(SGOT) (U/L) Date Value 11/26/2019 19 11/19/2019 32 07/19/2019 23 03/26/2019 27 09/19/2018 23 ALK PHOS (U/L) Date Value 11/26/2019 65 11/19/2019 67 07/19/2019 74 03/26/2019 80 09/19/2018 93 CBC WBC (10*3/L) Date Value 02/25/2020 7.12 RBC (10*6/L) Date Value 02/25/2020 3.46 (L) PLT (10*3/L) Date Value 02/25/2020 185 HGB (g/dL) Date Value 02/25/2020 9.5 (L) HCT (%) Date Value 02/25/2020 29.6 (L) Current Facility-Administered Medications: [COMPLETED] heparin (PF) 1,000 unit/mL injection 1,500 Units, 1,500 Units, Slow IV Push, DIALYSIS ONCE - PT ROOM, 1,500 Units at 02/26/20 1230 FOLLOWED BY heparin (PF) 1,000 unit/mL injection 1,500 Units, 1,500 Units, Slow IV Push, DIALYSIS ONCE - PT ROOM, Carlos Damian G, acetaminophen (TYLENOL) tablet 650 mg, 650 mg, Oral, Q6HPRN, Abdulaziz Elias MD calcium acetate (PHOSLO) capsule 667 mg, 667 mg, Oral, TID MEALS, Abdulaziz Elias MD, 667 mg at 02/26/20 1227 cloNIDine (CATAPRES) tablet 0.1 mg, 0.1 mg, Oral, TID, Abdulaziz Elias MD, Stopped at 02/26/200800 doxycycline hyclate (Vibramycin) capsule 100 mg, 100 mg, Oral, Q12H, Abdulaziz Elias MD, 100 mg at 02/26/20 0846 hydralAZINE (APRESOLINE) injection 20 mg, 20 mg, Intravenous, Q6HPRN, Abdulaziz Elias MD HYDROcodone-acetaminophen (NORCO) 10-325 mg tablet 1 tablet, 1 tablet, Oral, Q4HPRN, Abdulaziz Elias MD metoprolol tartrate (LOPRESSOR) tablet 50 mg, 50 mg, Oral, BID, Abdulaziz Elias MD, 50 mg at 02/25/20 2215 morpHINE injection 2 mg, 2 mg, Slow IV Push, Q4HPRN, Abdulaziz Elias MD, 2 mg at 02/26/20 1228 NIFEdipine ER (AFEDITAB CR) tablet 90 mg, 90 mg, Oral, DAILY, Abdulaziz Elias MD traMADol (ULTRAM) tablet 50 mg, 50 mg, Oral, Q6HPRN, Abdulaziz Elias MD Impression: ESRD on TTS but could not get HD yesterday sec to access issues but getting HD now AVF malfunction but doppler reviewed may need vascular intervention for stenosis as out patient Severe low back pain sec to recent pilonidal cyst resection htn uncontrolled Plan : Doing ok Continue pain control Continue antibiotics Monitor anemia Dave Briscoe RN - 02/25/2020 1:30 PM CDTCare Management Social Functional Assessment Patient Name: Vladimir Maguire Age: [age] year old Sex: male Patient's Previous Admission Date at [facility]: 03/28/2019 Current diagnosis and co-morbidities: HYPERKALEMIA Readmission Questions: Was patient discharged from any acute care hospital within the last 30 days: No Social Functional Assessment: Primary language spoken/preferred: Sinhala Mental Status: Alert & Oriented to Person,Place & Time Information given by: Self Patient's support system: Spouse Name and number of support system: Bridgette Davis ex [phone] Primary State Auditor: Self MPOA: Same as support system Living Arrangement: Apartment: [facility] Address of living arrangement : [address] [place] [address] Persons living in home: Self Barriers to returning home: None Baseline functional status- ambulation: Independent Functional status-baseline personal care: Independent Baseline functional status- driving: Independent Baseline functional status- grocery shopping: Independent Functional status-baseline housekeeping: Independent Functional status-baseline meal prep: Independent Current functional status same as prior: Yes Do you have a PCP?: Yes Name of PCP: [facility] Agency: No Provider Services: No DME Company: No Equipment: None Hemodialysis: Yes Dialysis Facility: Other Name of Other Dialysis Facility: [facility] Dialysis Schedule: TTS Dialysis Time: 0500 Mode of Transportation: Self Type of Access: AV Fistula Last Dialysis date at Dialysis Center: 02/25/20 Funding Resources: Medicare A & B;Medicaid HMO Prescription coverage plan: Medicare Part D Pharmacy where meds are filled: Other Other pharmacy: [facility] [place] Anticipated services prior to disharge: Continue Medical Eval Expected mode of discharge transportation: Same as support system Additional info required for discharge planning: Pending medical evaluation Recommended discharge plan: Home SFA Complete: Social Functional Assessment complete: Yes Alcohol Use Screening (AUDIT-C) How often do you have a drink containing alcohol?: Never SCORE: 0 Role of Care Management explained. Yes Any issues or concerns with obtaining/affording your medications at home: no. Are you or your support system able to pick pulling machine tender medications at discharge: yes. Describe: Have you or family you live with or family that is with you here in the hospital had: ? Recent history of travel to a high-risk area: no (example [place], [place]) ? Recent sick contacts before or during admission: no ? Contact with a proven COVID-19 case: no ? Symptoms: fever, dry cough, fatigue, difficulty breathing: no ? Attended recent events with a gatherings of > 10 people: no Do you have at least 30 days of all your medications available? yes Do you have My Chart set up? no Patient notified that they may be receiving a call regarding a follow-up visit after discharge. Yes Visitor policy was reviewed with patient/family. yes Due to the no visitor policy is there anyone you would like to list that needs to be updated regarding your care and plan for discharge. Dave Lee RN, BSN [facility] ADC Wind Farm Operations Manager [phone] . documented in this encounter Plan of Treatment Health Maintenance Due Date Last Done Comments EYE EXAM 1978 DTaP,Tdap,and Td Vaccines (1 - 1979 Tdap) COLONOSCOPY 2018 Zoster Recombinant Vaccine 2018 (SHINGRIX) (1 of 2) PNEUMOCOCCAL 0-64 YEARS COMBINED 01/07/2019 01/07/2018 SERIES (2 of 3 - PCV13) LDL-C 06/26/2019 06/26/2018 FOOT EXAM 06/27/2019 06/27/2018 INFLUENZA VACCINE (#1) 2019 09/12/2018, 01/07/2018 HgA1C 05/19/2020 11/19/2019, 03/30/2019, 06/27/2018, Additional history exists CREATININE (SERUM) 02/24/2021 02/25/2020, 02/25/2020, 02/25/2020, Additional history exists documented as of this encounter Implants Implanted Type Area Sound Printer Device Shelf Model / Identifier Expiration Serial / Date Lot Knee KNEE Knee Plate PLATE Neck Plate Narrow 5 Hole [employer] Ref#[id number] PLATE Right: [employer] [place] 2511-05-2 / Implanted: Qty: 1 on 05/31/2018 by Chip Philippe ace, MD at [facility] [employer] [place] 2511-0 5-2 / [place] 2511-05 -2 Screw SCREW Neck Screw 2.5 Cortical [employer] Ref#[id number] SCREW Right: [employer] [id number] / Implanted: Qty: 1 on 05/31/2018 by Chip Philippe ace, MD at [facility] [employer] [id number] / [id number] Screw 2.5 Cortical [employer] Ref#[id number] SCREW Right: [employer] [id number] / Implanted: Qty: 3 on 05/31/2018 by Chip Philippe ace, MD at [facility] [employer] [id number] / [id number] Screw 2.5 Cortical [employer] Ref#[id number] SCREW Right: [employer] [id number] / Implanted: Qty: 3 on 05/31/2018 by Chip Philippe ace, MD at [facility] [employer] [id number] / [id number] Screw 2.5 Cortical [employer] Ref#[id number] SCREW Right: [employer] [id number] / Implanted: Qty: 2 on 05/31/2018 by Chip Philippe ace, MD at [facility] [employer] [id number] / [id number] Screw 2.5 Cortical [employer] Ref#[id number] SCREW Right: [employer] [id number] / Implanted: Qty: 2 on 05/31/2018 by Chip Philippe ace, MD at [facility] [employer] [id number] / [id number] Kwirwe 1.4 Ref#[id number] WIRE Right: [employer] [id number] / Implanted: Qty: 1 on 05/31/2018 by Chip Philippe ace, MD at [facility] 0 / 0 documented as of this encounter Procedures Procedure Name Priority Date/Time Associated Comments Diagnosis UNILATERAL DUPLEX Routine 02/26/2020 8:07 SCAN OF ARTERY BY AM CDT VASCULAR LAB BASIC METABOLIC PANEL Routine 02/26/2020 3:25 Re sults for this (NA, K, CL, CO2, AM CDT procedure a re in GLUCOSE, BUN, the results CREATININE, CA) section. BASIC METABOLIC PANEL Routine 02/25/2020 11:44 Re sults for this (NA, K, CL, CO2, PM CDT procedure a re in GLUCOSE, BUN, the results CREATININE, CA) section. BASIC METABOLIC PANEL STAT 02/25/2020 7:31 Re sults for this (NA, K, CL, CO2, PM CDT procedure a re in GLUCOSE, BUN, the results CREATININE, CA) section. POCT GLUCOSE Routine 02/25/2020 7:21 Results for this (AUTOMATED) PM CDT procedure are i n the results section. POCT GLUCOSE Routine 02/25/2020 3:19 Results for this (AUTOMATED) PM CDT procedure are i n the results section. POCT GLUCOSE Routine 02/25/2020 11:50 Results for this (AUTOMATED) AM CDT procedure are i n the results section. CORONAVIRUS COVID-19 STAT 02/25/2020 10:10 Post-op pain Res ults for this TESTING AM CDT procedure are i n the results section. EKG-12 LEAD Routine 02/25/2020 9:02 AM CDT EKG-12 LEAD STAT 02/25/2020 9:[address] ABDOMEN PELVIS WO STAT 02/25/2020 8:26 Post-op pain Res ults for this CONTRAST AM CDT procedure are i n the results section. CBC WITH DIFFERENTIAL STAT 02/25/2020 8:12 Post-op pain Re sults for this AM CDT procedure are i n the results section. CBC WITH DIFFERENTIAL Routine 02/25/2020 8:12 Post-op pain Re sults for this AM CDT procedure are i n the results section. BASIC METABOLIC PANEL STAT 02/25/2020 8:12 Post-op pain Re sults for this (NA, K, CL, CO2, AM CDT procedure a re in GLUCOSE, BUN, the results CREATININE, CA) section. documented in this encounter Results Basic Metabolic Panel (NA, K, CL, CO2, GLUCOSE, BUN, CREATININE, CA) (02/26/2020 3:25 AM CDT) NA 136 135 - 145 [facility] mmol/L [facility] K 5.9 (H) 3.5 - 5.0 [facility] mmol/L [facility] CL 98 98 - 108 mmol/L [facility] CO2 TOTAL 23 23 - 31 mmol/L [facility] AGAP 15 2 - 16 [facility] BUN 68 (H) 7 - 23 mg/dL [facility] GLUCOSE 72 70 - 110 mg/dL [facility] CREATININE 13.80 (H) 0.60 - 1.25 [facility] mg/dL [facility] CALCIUM 8.6 8.6 - 10.6 [facility] mg/dL [facility] eGFR Calculation 3.8 mL/min/1.73m2 [facility] ([facility] LABORAT[facility] [place]ian) eGFR Calculation 4.6 mL/min/1.73m2 [facility] () [facility] Specimen Blood - LINE, VENOUS Narrative Performed At [facility] of Glomerular Filtration Rate (GFR) [facility] and Staging of Kidney Disease* + + +- + | GFR (mL/min/1.73 m2) | With Kidney Damage | Without Kidney Damage + + +- + | >90 | Stage one | Normal + + +- + | 60-89 | Stage two | Decreased GFR + + +- + | 30-59 | Stage three | Stage three + + +- + | 15-29 | Stage four | Stage four + + +- + | <15 (or dialysis) | Stage five | Stage five + + +- + *Each stage assumes the associated GFR level has been in effect for at least three months. Stages 1 to 5, with or without kidney disease, indicate chronic kidney disease. Notes: Determination of stages one and two (with eGFR >59mL/min/1.73 m2) requires estimation of kidney damage for at least three months as defined by structural or functional abnormalities of the kidney, manifested by either: Pathological abnormalities or Markers of kidney damage (including abnormalities in the composition of the blood or urine or abnormalities in imaging tests). Performing Organization Address City/State/Zipcode Phone Number [facility] CLIA: [id number], [address] [place] [place], [place] [address] BASIC METABOLIC PANEL (NA, K, CL, CO2, GLUCOSE, BUN, CREATININE, CA) (02/25/2020 11:44 PM CDT) NA 136 135 - 145 [facility] mmol/L [facility] K 5.4 (H) 3.5 - 5.0 [facility] mmol/L [facility] CL 98 98 - 108 mmol/L [facility] CO2 TOTAL 23 23 - 31 mmol/L [facility] AGAP 15 2 - 16 [facility] BUN 66 (H) 7 - 23 mg/dL [facility] GLUCOSE 61 (L) 70 - 110 mg/dL [facility] CREATININE 13.21 (H) 0.60 - 1.25 [facility] mg/dL [facility] CALCIUM 8.6 8.6 - 10.6 [facility] mg/dL [facility] eGFR Calculation 4.0 mL/min/1.73m2 [facility] (Non[facility] LABORATORY Bulgarian) eGFR Calculation 4.9 mL/min/1.73m2 [facility] () [facility] Specimen Blood - LINE, VENOUS Narrative Performed At [facility] of Glomerular Filtration Rate (GFR) [facility] and Staging of Kidney Disease* + + +- + | GFR (mL/min/1.73 m2) | With Kidney Damage | Without Kidney Damage + + +- + | >90 | Stage one | Normal + + +- + | 60-89 | Stage two | Decreased GFR + + +- + | 30-59 | Stage three | Stage three + + +- + | 15-29 | Stage four | Stage four + + +- + | <15 (or dialysis) | Stage five | Stage five + + +- + *Each stage assumes the associated GFR level has been in effect for at least three months. Stages 1 to 5, with or without kidney disease, indicate chronic kidney disease. Notes: Determination of stages one and two (with eGFR >59mL/min/1.73 m2) requires estimation of kidney damage for at least three months as defined by structural or functional abnormalities of the kidney, manifested by either: Pathological abnormalities or Markers of kidney damage (including abnormalities in the composition of the blood or urine or abnormalities in imaging tests). Performing Organization Address City/State/Zipcode Phone Number [facility] CLIA: [id number], [address] [place], [place] [address] BASIC METABOLIC PANEL (NA, K, CL, CO2, GLUCOSE, BUN, CREATININE, CA) (02/25/2020 7:31 PM CDT) NA 135 135 - 145 [facility] mmol/L [facility] K 6.0 (H) 3.5 - 5.0 [facility] mmol/L [facility] CL 98 98 - 108 mmol/L [facility] CO2 TOTAL 22 (L) 23 - 31 mmol/L [facility] AGAP 15 2 - 16 [facility] BUN 64 (H) 7 - 23 mg/dL [facility] GLUCOSE 76 70 - 110 mg/dL [facility] CREATININE 12.45 (H) 0.60 - 1.25 [facility] mg/dL [facility] CALCIUM 8.0 (L) 8.6 - 10.6 [facility] mg/dL [facility] eGFR Calculation 4.3 mL/min/1.73m2 [facility] ([facility] LABORATORY Bulgarian) eGFR Calculation 5.2 mL/min/1.73m2 [facility] () [facility] Specimen Blood - ARM, RIGHT Narrative Performed At [facility] Glomerular Filtration Rate (GFR) [facility] and Staging of Kidney Disease* + + +- + | GFR (mL/min/1.73 m2) | With Kidney Damage | Without Kidney Damage + + +- + | >90 | Stage one | Normal + + +- + | 60-89 | Stage two | Decreased GFR + + +- + | 30-59 | Stage three | Stage three + + +- + | 15-29 | Stage four | Stage four + + +- + | <15 (or dialysis) | Stage five | Stage five + + +- + *Each stage assumes the associated GFR level has been in effect for at least three months. Stages 1 to 5, with or without kidney disease, indicate chronic kidney disease. Notes: Determination of stages one and two (with eGFR >59mL/min/1.73 m2) requires estimation of kidney damage for at least three months as defined by structural or functional abnormalities of the kidney, manifested by either: Pathological abnormalities or Markers of kidney damage (including abnormalities in the composition of the blood or urine or abnormalities in imaging tests). Performing Organization Address [facility] Phone Number [facility] CLIA: [id number], [address] [place] [address] POCT GLUCOSE (AUTOMATED) (02/25/2020 7:21 PM CDT) Pathologist Sig nature POCT GLU 89 70 - 110 mg/dL [facility] Specimen Blood Performing Organization Address [facility] Phone Number [facility] CLIA: [id number], [address] [place] [address] POCT GLUCOSE (AUTOMATED) (02/25/2020 3:19 PM CDT) Pathologist Sig true[x] Media POCT GLU 98 70 - 110 mg/dL [facility] Specimen Blood Performing Organization Address [facility] Phone Number [facility] CLIA: [id number], [address] [place] [address] POCT GLUCOSE (AUTOMATED) (02/25/2020 11:50 AM CDT) Pathologist Sig true[x] Media POCT GLU 103 70 - 110 mg/dL [facility] Specimen Blood Performing Organization Address [facility] Phone Number [facility] CLIA: [id number], [address] [place] [address] CORONAVIRUS COVID-19 TESTING (02/25/2020 10:10 AM CDT) Pathologist Sig nature SARS-CoV-2 Not Detected Not Detected [facility] Specimen Swab - NASOPHARYNGEAL SWAB Narrative Performed At [facility] COVID-19 Assay is an isothermal nucleic [facility] acid amplification test intended for the qualitative detection of nucleic acid from SARS-CoV-2 viral RNA in nasopharyngeal (CYTOTECHNOLOGIST SUPERVISOR) specimens. It is used under Emergency Use Authorization (EUA) by FDA. The limit of detection (LOD) of the assay is 125 Genome Equivalents/mL. A positive result is indicative of the presence of SARS-CoV-2 RNA. Clinical correlation with patient history and other diagnostic information is necessary to determine patient infection status. A negative (Not Detected) result does not preclude SARS-CoV-2 infection. Clinical correlation with patient history and other diagnostic information should be used in patient management decisions. Invalid: Please collect a new specimen for repeat patient testing if clinically indicated. Performing Organization Address City/State/Zipcode Phone Number [facility] CLIA: [id number], [address] [place], [place] [address] Abdomen/Pelvis W/O Contrast (02/25/2020 8:26 AM CDT) Specimen Impressions Performed At PACS/VR/DOSE 2.5 cm pocket of air with mild surrounding enhancement and fat stranding in the subcutaneous soft tissues just below the coccyx, likely secondary to previous recent surgical intervention. N o definite associated fluid collection is noted to suggest abscess f ormation. However, a moderate amount of fat stranding and air is noted tracking superiorly up to the level of the subcutaneous soft tissues a long the inferior sacral levels which may represent inflammatory/postope rative changes. Superimposed infection cannot be excluded and is a po ssibility. Fat stranding is noted in the soft tissues posteriorly along the midline up to the T12-L1 level which may be positio nal, however it has increased markedly compared to the previous CT and may be related to the above findings. Correlate clinically for edema /inflammatory changes at this level. Right nephrectomy. Narrative Performed At CT OF THE ABDOMEN AND PELVIS WITHOUT CON TRAST PACS/VR/DOSE HISTORY: tailbone pain s/p surgery on COMPARISON: CT dated 12/26/2019 TECHNIQUE: Contiguous 5 mm slices were obtained from t he lung bases to the pubic symphysis. FINDINGS: The evaluation of the intra-abdominal organs is limite d due to the lack of IV contrast. Abdomen: The lung bases are clear except for subsegmental atele ctasis.. No pleural or pericardial effusions are visualized. The heart is normal in size. The liver is normal in size and shape. A calcified granuloma is noted in the right hepatic lobe. The gallbladder appears normal and does not show calcified stones. The pancreas, spleen, left kidney and ad renals appear normal. No pelviectasis is seen. Mild to moderate perinephric fat stranding is noted, unchanged. Changes of right nephrectomy. Lymph nodes in the retroperitoneal and mesenteric area s are not enlarged by CT size criteria. Marked atherosclerosis affects the aorta and major bra nches, most prominent along the splenic artery. The nonopacified small bowel and colon appear unremark able. The appendix is normal. Pelvis: The urinary bladder is decompressed but otherwise unremarkable. An approximately 2.5 x 2.0 x 1.0 cm pock et of air is noted within the subcutaneous soft tissues just below the coccyx. Mild surrounding enhancement and fat stranding is noted. No obvious fluid collection is visualized. Air tracks superiorly from t his air pocket to the posterior soft tissues along the inferior sacral l evels were fat stranding is also noted. No fluid collections are noted at this level. F at stranding extends along the midline in the posterior soft tissues up to the level of the T12-L1, increased compared to the previo us CT. No lytic or blastic bone lesions are see n. Mild degenerative disease affects the lower thoracic spine. Procedure Note [facility], Radiant Results Inft User - 2019 9:[address] OF THE ABDOMEN AND PELVIS WITHOUT CONTRAST HISTORY: tailbone pain s/p surgery on COMPARISON: CT dated 12/26/2019 TECHNIQUE: Contiguous 5 mm slices were o btained from the lung bases to the pubic symphysis. FINDINGS: The evaluation of the intra-abdominal or preeti is limited due to the lack of IV contrast. Abdomen: The lung bases are clear except for subs egmental atelectasis.. No pleural or pericardial effusions are visualized. The heart is normal in size. The liver is normal in size and shape. A calcified granuloma is noted in the right hepatic lobe. The gallbladder appears normal and does not show calcified stones. The pancreas, spleen, left kidney and ad renals appear normal. No pelviectasis is seen. Mild to moderate p erinephric fat stranding is noted, unchanged. Changes of right nephrectomy. Lymph nodes in the retroperitoneal and m esenteric areas are not enlarged by CT size criteria. Marked atherosclerosis affects the aorta and major branches, most prominent along the splenic artery. The nonopacified small bowel and colon a ppear unremarkable. The appendix is normal. Pelvis: The urinary bladder is decompressed but otherwise unremarkable. An approximately 2.5 x 2.0 x 1.0 cm pock et of air is noted within the subcutaneous soft tissues just below the coccyx. Mild surrounding enhancement and fat stranding is noted. No obvious fluid collection is visualized. Air tracks superiorly from t his air pocket to the posterior soft tissues along the inferior sacral l evels were fat stranding is also noted. No fluid collections are noted at this level. Fat stranding extends along the midline in the posterior soft tissues up to the level of the T12-L1, increased compared to the previo us CT. No lytic or blastic bone lesions are see n. Mild degenerative disease affects the lower thoracic spine. IMPRESSION 2.5 cm pocket of air with mild surroundi ng enhancement and fat stranding in the subcutaneous soft tissues just below the coccyx, likely secondary to previous recent surgical intervention. N o definite associated fluid collection is noted to suggest abscess f ormation. However, a moderate amount of fat stranding and air is noted tracking superiorly up to the level of the subcutaneous soft tissues a long the inferior sacral levels which may represent inflammatory/postope rative changes. Superimposed infection cannot be excluded and is a po ssibility. Fat stranding is noted in the soft tissu es posteriorly along the midline up to the T12-L1 level which may be positio nal, however it has increased markedly compared to the previous CT and may be related to the above findings. Correlate clinically for edema /inflammatory changes at this level. Right nephrectomy. Performing Organization Address City/State/Zipcode Phone Number PACS/VR/DOSE CBC WITH DIFFERENTIAL (02/25/2020 8:12 AM CDT) Pathologist Sig nature WBC 7.12 4.20 - 10.70 [facility] 10*3/L HOSPITAL LABORATORY RBC 3.46 (L) 4.26 - 5.52 [facility] 10*6/L HOSPITAL LAB[facility]ORY HGB 9.5 (L) 12.2 - 16.4 [facility] g/dL HOSPITAL LABOR[facility]ORY HCT 29.6 (L) 38.4 - 49.3 % [facility] MCV 85.5 81.7 - 95.6 fL [facility] MCH 27.5 26.1 - 32.7 pg [facility] MCHC 32.1 31.2 - 35.0 [facility] g/dL [facility] RDW-SD 45.8 38.5 - 51.6 fL [facility] RDW-CV 14.9 12.1 - 15.4 % [facility] PLT 185 150 - 328 [facility] 10*3/L [facility] MPV 9.4 (L) 9.8 - 13.0 fL [facility] NRBC/100 WBC 0.0 0.0 - 10.0 /100 [facility] WBCs [facility] NRBC x10^3 <0.01 10*3/L [facility] GRAN MAT (NEUT) % 66.8 % [facility] IMM GRAN % 0.60 % [facility] LYMPH % 18.5 % [facility] MONO % 9.8 % [facility] EOS % 3.9 % [facility] BASO % 0.4 % [facility] GRAN MAT x10^3(ANC) 4.75 1.99 - 6.95 [facility] 10*3/uL HOSPITAL LABORATORY IMM GRAN x10^3 0.04 0.00 - 0.06 [facility] 10*3/uL HOSPITAL LAB[facility]ORY LYMPH x10^3 1.32 1.09 - 3.23 [facility] 10*3/uL HOS[facility]ITAL [facility] MONO x10^3 0.70 0.36 - 1.02 [facility] 10*3/uL HOSPITAL LAB[facility]ORY EOS x10^3 0.28 0.06 - 0.53 [facility] 10*3/uL HOSPITAL LAB[facility] BASO x10^3 0.03 0.01 - 0.09 [facility] 10*3/uL HOSPITAL LAB[facility] Specimen Blood - VENOUS Performing Organization Address City/State/Zipcode Phone Number [facility] CLIA: [id number], [address] [place], [place] [address] Basic Metabolic Panel (NA, K, CL, CO2, GLUCOSE, BUN, CREATININE, CA) (02/25/2020 8:12 AM CDT) NA 135 135 - 145 [facility] mmol/L [facility] K 6.2 (HH) 3.5 - 5.0 [facility] mmol/L [facility] CL 98 98 - 108 mmol/L [facility] CO2 TOTAL 23 23 - 31 mmol/L [facility] AGAP 14 2 - 16 [facility] BUN 60 (H) 7 - 23 mg/dL [facility] GLUCOSE 92 70 - 110 mg/dL [facility] CREATININE 11.72 (H) 0.60 - 1.25 [facility] mg/dL [facility] CALCIUM 8.5 (L) 8.6 - 10.6 [facility] mg/dL [facility] eGFR Calculation 4.6 mL/min/1.73m2 [facility] Bulgarian[facility] eGFR Calculation 5.6 mL/min/1.73m2 [facility] () [facility] Specimen Blood - VENOUS Narrative Performed At [facility] Glomerular Filtration Rate (GFR) [facility] and Staging of Kidney Disease* + + +- + | GFR (mL/min/1.73 m2) | With Kidney Damage | Without Kidney Damage + + +- + | >90 | Stage one | Normal + + +- + | 60-89 | Stage two | Decreased GFR + + +- + | 30-59 | Stage three | Stage three + + +- + | 15-29 | Stage four | Stage four + + +- + | <15 (or dialysis) | Stage five | Stage five + + +- + *Each stage assumes the associated GFR level has been in effect for at least three months. Stages 1 to 5, with or without kidney disease, indicate chronic kidney disease. Notes: Determination of stages one and two (with eGFR >59mL/min/1.73 m2) requires estimation of kidney damage for at least three months as defined by structural or functional abnormalities of the kidney, manifested by either: Pathological abnormalities or Markers of kidney damage (including abnormalities in the composition of the blood or urine or abnormalities in imaging tests). Performing Organization Address City/State/Zipcode Phone Number [facility] CLIA: [id number], [address] [place], [place] [address] [facility] [address] documented in this encounter Visit Diagnoses Diagnosis Post-op pain - Primary Other acute postoperative pain ESRD (end stage renal disease) on dialys is End stage renal disease ESRD (end stage renal disease) End stage renal disease Hyperkalemia Hyperpotassemia documented in this encounter Administered Medications Medication Order MAR Action Action Date Dose Rate Site acetaminophen (TYLENOL) tablet 650 mg 650 mg, Oral, Q6HPRN, Starting Mon at 1123, Until Discontinued, Routine, Pain (scale 1-3) calcium acetate (PHOSLO) capsule 667 mg Given 02/26/2020 12:27 PM CDT 667 mg 667 mg, Oral, TID MEALS, First dose on Mon02/25/20 at 1700, Until Discontinued, Routine Given 02/26/2020 8:46 AM CDT 667 mg Given 02/25/2020 5:45 PM CDT 667 mg cloNIDine (CATAPRES) tablet 0.1 mg Given 02/26/2020 2:47 PM CDT 0.1 mg 0.1 mg, Oral, TID, First dose on Mon02/25/20 at 1999, Until Discontinued, Routine Given 02/25/2020 10:15 PM CDT 0.1 mg doxycycline hyclate (Vibramycin) capsule 100 Given 8:46 AM CDT 100 mg mg 100 mg, Oral, Q12H, 10 doses, First dose on Mon02/25/20 at 2000, Last dose on Mon03/01/20 at 0800, JUAN, Reason for Anti-Infective: Documented Infection, Documented Infection Site: Skin / Soft Tissue, Duration of Therapy: 7 days Given 02/25/2020 10:15 PM CDT 100 mg hydralAZINE (APRESOLINE) injection 20 mg 20 mg, Intravenous, Q6HPRN, Starting Mon02/25/20 at 18 35, Until Discontinued, Routine, SBP > 180 metoprolol tartrate (LOPRESSOR) tablet 5 0 mg Given 02/25/2020 10:15 PM CDT 50 mg 50 mg, Oral, BID, First dose on Mon02/25/20 at 2000, Until Discontinued, Routine morpHINE injection 2 mg Given 02/26/2020 12:28 PM CDT 2 mg 2 mg, Slow IV Push, Q4HPRN, Starting Mon02/25/20 at 1436, Until Discontinued, STAT, Pain (scale 7-10) Given 02/26/2020 8:48 AM CDT 2 mg Given 02/26/2020 3:22 AM CDT 2 mg traMADol (ULTRAM) tablet 50 mg 50 mg, Oral, Q6HPRN, Starting Mon02/25/20 at 1436, Unt il Discontinued, Routine, Pain (scale 4-6) Medication Order MAR Action Action Date Dose Rate Site calcium gluconate 1 g in NaCl 50 mL Given 02/25/2020 9:15 PM CD T 1 g (ISO-OSM) RTU IV infusion 1 g 1 g, IV Infusion, ONCE, 1 dose, Mon02/25/20 at 2115, Routine dextrose 50 % in water (D50W) injection 50 mL Given 02/25/2020 10:00 PM CDT 50 mL 50 mL, Slow IV Push, ONCE, 1 dose, Mon02/25/20 at 2115, Routine epoetin bobby-epbx (RETACRIT) Given 02/25/2020 2:49 PM CDT 20,00 0 Units Abdomen-SC injection 20,000 Units 20,000 Units, Subcutaneous, ONCE AT 2000, 1 dose, Mon02/25/20 at 1200, Routine, 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 Restricted medication: CARLOS DAMIAN heparin (PF) 1,000 unit/mL injection Given 02/26/2020 12:30 PM C DT 1,500 Units 1,500 Units 1,500 Units, Slow IV Push, DIALYSIS ONCE - PT ROOM, 1 dose, [facility] 02/26/20 at 1045, Routine insulin regular human (HUMULIN R) injection Given 02/05 10:00 PM CDT 5 Units 5 Units 5 Units, IV Push, ONCE, 1 dose, Mon02/25/20 at 2115, Routine morpHINE injection 4 mg Given 02/25/2020 8:13 AM CDT 4 mg 4 mg, Slow IV Push, ONCE, 1 dose, Mon02/25/20 at 0915, STAT morpHINE injection 4 mg Given 02/25/2020 11:25 AM CDT 4 mg 4 mg, Slow IV Push, ONCE, 1 dose, Mon02/25/20 at 1200, STAT ondansetron (ZOFRAN (PF)) injection 4 mg Given 02/25/2020 8:13 AM CDT 4 mg 4 mg, Slow IV Push, ONCE, 1 dose, 02/25/20 at 0915, JUAN sodium polystyrene sulfonate (KAYEXALATE) 15 Given 0 2:48 PM CDT 15 g gram/60 mL suspension 15 g 15 g, Oral, ONCE, 1 dose, Tu02/25/20 at 1245, Routine documented in this encounter Insurance Payer Benefit Plan Subscriber ID Effective Phone Address Typ e / Group Dates MEDICARE MEDICARE PART xxxxxxxxxxx 2019-Leonor [phone] [facility] Medicare A & B nt [id number] [id number] [facility] xxxxxxxxx 2018-Leonor Medic aid HEALTHCARE COMM STAR PLUS nt PLAN - MANAGED MEDICAID documented as of this encounter Advance Directives Name Relationship Healthcare Agent Communication Relationship Bridgette Janie Spouse Primary healthcare agent [phone] Ryan (Mobile)
--- OUTSIDE RECORDS SUMMARY | 2020-04-10 11:22 | XMS REPORT | Summary of Care ---
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 metoprolol tartrate 50 Take 50 mg by 0 Active mg tablet mouth 2 (two) times daily. cloniDINE 0.1 mg Take 0.1 mg by 0 Active tablet mouth 3 (three) times daily as needed. NIFEdipine XL 90 mg 24 Take 90 mg by 11 01/28/2019 Active hr tablet mouth daily. HYDROcodone-acetaminop TK 1 T PO TID PRF 0 08/30/20 19 Active hen 10-325 mg tablet NECK PAIN calcium acetate 667 mg TAKE 1 CAPSULE BY 0 9 Active capsule MOUTH THREE TIMES DAILY WITH MEAL.ALSO TAKE 1 CAPSULE BY MOUTH TWICE DAILY WITH SNACK doxycycline hyclate Take 100 mg by 0 Active 100 mg capsule mouth every 12 (twelve) hours. documented as of this encounter (statuses as of 03/20/2020) Active Problems Problem Noted Date Hyperkalemia 02/25/2020 Chest pain 11/19/2019 Immature arteriovenous fistula 08/05/2019 Overview: Added automatically from request for justo wagner [id number] Shortness of breath 03/28/2019 Pulmonary edema 03/27/2019 Acute on chronic diastolic congestive heart failure Essential hypertension 03/27/2019 Type 2 diabetes mellitus without complication, without long-term current 03/27/2019 use of insulin ESRD (end stage renal disease) 02/21/2019 Overview: Added automatically from request for justo wagner [id number] End stage chronic kidney disease 10/01/2018 Overview: Added automatically from request for justo wagner [id number] Pain management 09/19/2018 Port-site hernia 09/15/2018 Renal mass, right 09/10/2018 Malignant neoplasm of right kidney 08/23/2018 Overview: Added automatically from request for justo wagner [id number] HCV antibody positive 06/22/2018 Positive 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 06/22/2018 Avascular necrosis of lunate 05/21/2018 Overview: Added automatically from request for justo wagner [id number] H/O rheumatoid arthritis 05/01/2018 Immunization counseling 05/01/2018 [...] as of this encounter (statuses as of 03/20/2020) Immunizations Name Administration Dates Next Due Influenza Virus Vaccine Quad .5 mL IM 6+ MO 09/12/2018 Influenza Virus Vaccine Quad IM 3+ YRS 01/07/2018 Pneumococcal Polysaccharide, PPSV23 (PNEUMOVAX) 01/07/2018 documented as of this encounter Social History Tobacco Use Types Packs/Day Years Used Date Never Smoker Smokeless Tobacco: Never Used Comments: jessica daily Alcohol Use Drinks/Week oz/Week Comments No quit 5 years ago Sex Assigned at Date Recorded Not on file Job Start Date Occupation Industry Not on file Not on file Not on file Travel History Travel Start Travel End No recent travel history available. COVID-19 Exposure Response Date Recorded In the last month, have you been in contact with No / Unsure 02/25/2020 8:18 AM CDT someone who was confirmed or suspected to have Coronavirus / COVID-19? documented as of this encounter Last Filed Vital Signs Not on filedocumented in this encounter Plan of Treatment Date Type Specialty Care Team Description 03/25/2020 Office Visit Orthopedic Surgery Heri Albarado MD [address] [place], [place] [phone] Health Maintenance Due Date Last Done Comments EYE EXAM 1978 DTaP,Tdap,and Td Vaccines (1 - 1979 Tdap) COLONOSCOPY 2018 Zoster Recombinant Vaccine 2018 (SHINGRIX) (1 of 2) PNEUMOCOCCAL 0-64 YEARS COMBINED 01/07/2019 01/07/2018 SERIES (2 of 3 - PCV13) LDL-C 06/26/2019 06/26/2018 FOOT EXAM 06/27/2019 06/27/2018 HgA1C 05/19/2020 11/19/2019, 03/30/2019, 06/27/2018, Additional history exists INFLUENZA VACCINE (Season Ended) 2020 09/12/2018, 02/2018 CREATININE (SERUM) 02/25/2021 02/26/2020, 02/25/2020, 02/25/2020, Additional history exists documented as of this encounter Implants Implanted Type Area 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 Device Shelf Model / Identifier Expiration Serial / Date Lot Knee KNEE Knee Plate PLATE Neck Plate Narrow 5 Hole [employer] Ref#[id number] PLATE Right: [employer] [place] 2511-05-2 / Implanted: Qty: 1 on 05/31/2018 by Chip Philippe ace, MD at [facility] [employer] [place] 2511-0 5-2 / [place] 2511-05 -2 Screw SCREW Neck Screw 2.5 Cortical [employer] Ref#[id number] SCREW Right: [employer] [id number] / Implanted: Qty: 1 on 05/31/2018 by Chip Philippe ace, MD at [facility] [employer] [id number] -2 / [id number] 2 Screw 2.5 Cortical [employer] Ref#[id number] SCREW Right: [employer] [id number] / Implanted: Qty: 3 on 05/31/2018 by Chip Philippe ace, MD at [facility] [employer] [id number] -2 / [id number] 2 Screw 2.5 Cortical [employer] Ref#[id number] SCREW Right: [employer] [id number] / Implanted: Qty: 3 on 05/31/2018 by Chip Philippe ace, MD at [facility] [employer] [id number] -2 / [id number] 2 Screw 2.5 Cortical [employer] Ref#[id number] SCREW Right: [employer] [id number] / Implanted: Qty: 2 on 05/31/2018 by Chip Philippe ace, MD at [facility] [employer] [id number] -2 / [id number] 2 Screw 2.5 Cortical [employer] Ref#[id number] SCREW Right: [employer] [id number] / Implanted: Qty: 2 on 05/31/2018 by Chip Philippe ace, MD at [facility] [employer] [id number] / [id number] Kwirwe 1.4 Ref#[id number] WIRE Right: [employer] [id number] / Implanted: Qty: 1 on 05/31/2018 by Chip Philippe ace, MD at [facility] Arm [facility] 0 / 0 documented as of this encounter Results Not on filedocumented in this encounter Insurance Payer Benefit Plan Subscriber ID Effective Phone Address Typ e / Group Dates MEDICARE MEDICARE PART xxxxxxxxxxx 2019-Prese [phone] Medicare A & B nt [id number] [place] [id number] [facility] xxxxxxxxx 2018-Pres[place]iley Medic aid HEALTHCARE COMM STAR PLUS nt PLAN - MANAGED MEDICAID [facility] MEDICAID OF xxxxxxxxx 2019-Prese [phone] [address] Med icaid [place] nt 900 [id number] [place] [address] documented as of this encounter Advance Directives Name Relationship Healthcare Agent Communication Relationship Bridgette [place] Spouse Primary healthcare agent [place] (Mobile)
--- OUTSIDE RECORDS SUMMARY | 2020-04-10 11:22 | XMS REPORT | Summary of Care ---
:1970 Author Organization [facility] - Health Address [address] [place] [address] Care Team Providers Name Role Phone Vicente Hussein Insurance Hmo Antolin Braun Primary Care Provider Reason for Visit Reason Comments Transition Of Care Encounter Details Date Type Department Care Team Description 02/27/2020 Transition of Care [facility] [address] [address] Allergies No Known Allergiesdocumented as of this encounter (statuses as of 02/27/2020) Medications Medication Sig Dispensed Refills Start Date [...] as of this encounter (statuses as of 02/27/2020) Active Problems Problem Noted Date Hyperkalemia 02/25/2020 Chest pain 11/19/2019 Immature arteriovenous fistula 08/05/2019 Overview: Added automatically from request for justo wagner [id number] Shortness of breath 03/28/2019 Pulmonary edema 03/27/2019 Acute on chronic diastolic congestive heart failure Essential hypertension 03/27/2019 Type 2 diabetes mellitus without complication, without long-term current 03/27/2019 use of insulin ESRD (end stage renal disease) 02/21/2019 Overview: Added automatically from request for justo wagner [id number] End stage chronic kidney disease 10/01/2018 Overview: Added automatically from request for justo wagner [id number] Pain management 09/19/2018 Port-site hernia 09/15/2018 Renal mass, right 09/10/2018 Malignant neoplasm of right kidney 08/23/2018 Overview: Added automatically from request for justo wagner [id number] HCV antibody positive 06/22/2018 Positive 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 06/22/2018 Avascular necrosis of lunate 05/21/2018 Overview: Added automatically from request for justo wagner [id number] H/O rheumatoid arthritis 05/01/2018 Immunization counseling 05/01/2018 [...] as of this encounter (statuses as of 02/27/2020) Immunizations Name Administration Dates Next Due Influenza [...] filedocumented in this encounter Plan of Treatment Health [...] 03/30/2019, 06/27/2018, Additional history exists CREATININE (SERUM) 02/25/2021 02/26/2020, 02/25/2020, 02/25/2020, Additional history exists documented as of this encounter Implants Implanted Type Area Lead Burner Helper Device Shelf Model / Identifier Expiration Serial / Date Lot Knee KNEE Knee Plate PLATE Neck Plate Narrow 5 Hole [employer] Ref#[id number] PLATE Right: [employer] [place] 2511-05-2 / Implanted: Qty: 1 on 05/31/2018 by Chip Philippe ace, MD at [facility] [employer] [place] 2511-0 5-2 / [place] 2511-05 -2 Screw SCREW Neck Screw 2.5 Cortical [employer] Ref#[id number] SCREW Right: [employer] [id number] / Implanted: Qty: 1 on 05/31/2018 by Chip Philippe ace, MD at [facility] [employer] CC1305-65 -2 / [id number]- 2 Screw 2.5 Cortical [employer] Ref#[id number] SCREW Right: [employer] [id number] / Implanted: Qty: 3 on 05/31/2018 by Chip Philippe ace, MD at [facility] [employer] [id number] -2 / [id number]- 2 Screw 2.5 Cortical [employer] Ref#[id number] SCREW Right: [employer] [id number] / Implanted: Qty: 3 on 05/31/2018 by Chip Philippe ace, MD at [facility] [employer] [id number] -2 / [id number]- 2 Screw 2.5 Cortical [employer] Ref#[id number] SCREW Right: [employer] [id number] / Implanted: Qty: 2 on 05/31/2018 by Chip Philippe ace, MD at [facility] [employer] TP3592-67 -2 / [id number]- 2 Screw 2.5 Cortical [employer] Ref#[id number] SCREW Right: [employer] [id number] / Implanted: Qty: 2 on 05/31/2018 by Chip Philippe ace, MD at [facility] Sciences CZ6926-96 / [id number] Kwirwe 1.4 Ref#[id number] WIRE Right: [employer] [id number] / Implanted: Qty: 1 on 05/31/2018 by Chip Philippe ace, MD at [facility] 0 / 0 documented as of this encounter Results Not on filedocumented in this encounter Insurance Payer Benefit Plan Subscriber ID Effective Phone Address Typ e / Group Dates MEDICARE MEDICARE PART xxxxxxxxxxx 2019-Leonor [phone] Medicare A & B nt [id number] [place] [id number] [facility] xxxxxxxxx 2018-Leonor Medic aid HEALTHCARE COMM STAR PLUS nt PLAN - MANAGED MEDICAID documented as of this encounter Advance Directives Name Relationship Healthcare Agent Communication Relationship Bridgettelashell BlackJanie Spouse Primary healthcare agent [place] (Mobile)
--- OUTSIDE RECORDS SUMMARY | 2020-04-10 11:23 | XMS REPORT | Summary of Care ---
:1970 Author Organization [facility] Address [address] [place] [address] Care Team Providers Name Role Phone Vicente Hussein Insurance Hmo Antolin Braun Primary Care Provider Sarabjit Roca DO Operations Vocational Instructor Reason for Referral Radiology Services (Routine) Status Reason Specialty Diagnoses / Referred By Referred To Procedures Contact Contact New Request Diagnostic Diagnoses Pain Chip Albarado, Radiology Procedures XR HAND 3+ VW LEFT [address] [place] [address] Encounter Details Date Type Department Care Team Description 03/23/2020 Abstract [facility] Orthopaedic Indira Cruz MD Pain (Primary Dx) Surgery- [address] [address] 1.[address] [place] [address] Allergies No Known Allergiesdocumented as of this encounter (statuses as of 03/23/2020) Medications Medication Sig Dispensed Refills Start Date [...] as of this encounter (statuses as of 03/23/2020) Active Problems Problem Noted Date Hyperkalemia 02/25/2020 Chest pain 11/19/2019 Immature arteriovenous fistula 08/05/2019 Overview: Added automatically from request for justo wagner [id number] Shortness of breath 03/28/2019 Pulmonary edema 03/27/2019 Acute on chronic diastolic congestive heart failure Essential hypertension 03/27/2019 Type 2 diabetes mellitus without complication, without long-term current 03/27/2019 use of insulin ESRD (end stage renal disease) 02/21/2019 Overview: Added automatically from request for justo wagner [id number] End stage chronic kidney disease 10/01/2018 Overview: Added automatically from request for justo wagner [id number] Pain management 09/19/2018 Port-site hernia 09/15/2018 Renal mass, right 09/10/2018 Malignant neoplasm of right kidney 08/23/2018 Overview: Added automatically from request for justo wagner [id number] HCV antibody positive 06/22/2018 Positive 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 06/22/2018 Avascular necrosis of lunate 05/21/2018 Overview: Added automatically from request for justo wagner [id number] H/O rheumatoid arthritis 05/01/2018 Immunization counseling 05/01/2018 [...] as of this encounter (statuses as of 03/23/2020) Immunizations Name Administration Dates Next Due Influenza [...] Treatment Date Type Specialty Care Team Description 03/23/2020 Appointment Radiology Chip Albarado MD [address] [place], [place] [phone] 03/25/2020 Office Visit [place] [address] [place] [address] [id number] Name Type Priority Associated Diagnoses Order S chedule XR HAND 3+ VW LEFT IMAGING Routine Pain Expected: 03/23/2020, Expires: 2020 Health Maintenance Due Date Last Done Comments [...] of this encounter Implants Implanted Type Area Supervisor Policy Change Clerks Device Shelf Model / Identifier Expiration Serial / Date Lot Knee KNEE Knee Plate PLATE Neck Plate Narrow 5 Hole [employer] Ref#[id number] PLATE Right: [employer] [place] 2511-05-2 / Implanted: Qty: 1 on 05/31/2018 by Chip Philippe ace, MD at [facility] [employer] [place] 2511-0 5-2 / [place] 2511-05 -2 Screw SCREW Neck Screw 2.5 Cortical [employer] Ref#[id number] SCREW Right: [employer] [id number] / Implanted: Qty: 1 on 05/31/2018 by Chip Philippe ace, MD at [facility] [employer] PG1727-94 -2 / [id number]- 2 Screw 2.5 Cortical [employer] Ref#[id number] SCREW Right: [employer] [id number] / Implanted: Qty: 3 on 05/31/2018 by Chip Philippe ace, MD at [facility] [employer] UY6401-45 -2 / [id number]- 2 Screw 2.5 [employer]ical [employer] Ref#[id number] SCREW Right: [employer] [id number] / Implanted: Qty: 3 on 05/31/2018 by Chip Philippe ace, MD at [facility] [employer] [id number] -2 / [id number]- 2 Screw 2.5 Cortical [employer] Ref#[id number] SCREW Right: [employer] [id number] / Implanted: Qty: 2 on 05/31/2018 by Chip Philippe ace, MD at [facility] [employer] QN2162-14 -2 / [id number]- 2 Screw 2.5 Cortical [employer] Ref#[id number] SCREW Right: [employer] [id number] / Implanted: Qty: 2 on 05/31/2018 by Chip Philippe ace, MD at [facility] [employer] QH5264-06 / [id number] Kwirwe 1.4 Ref#[id number] WIRE Right: [employer] [id number] / Implanted: Qty: 1 on 05/31/2018 by Chip Philippe ace, MD at [facility] [employer] 0 / 0 documented as of this encounter Results Not on filedocumented in this encounter Visit Diagnoses Diagnosis Pain - Primary Generalized pain documented in this encounter Insurance Payer Benefit Plan Subscriber ID Effective Phone Address Typ e / Group Dates MEDICARE MEDICARE PART xxxxxxxxxxx 2019-Prese [phone] Medicare A & B nt [phone] [id number] [place] [id number] [facility] xxxxxxxxx 2018-Prese Medic aid HEALTHCARE COMM STAR PLUS nt PLAN - MANAGED MEDICAID [facility] MEDICAID OF xxxxxxxxx 2019-Prese [phone] [address] Med icaid [place] nt 900 [id number] [place] [address] documented as of this encounter Advance Directives Name Relationship Healthcare Agent Communication Relationship Bridgette [place] Spouse Primary healthcare agent [place] (Mobile)
--- OUTSIDE RECORDS SUMMARY | 2020-04-10 11:24 | XMS REPORT | Summary of Care ---
:1970 Author Organization [facility] - [facility] Address [address] [place] [id number] Care Team Providers Name Role Phone Vicente Hussein Insurance Hmo Antolin Braun Primary Care Provider Sarabjit Roca DO Nurse Ldr Reason for Referral MRI/CAT Scan (JUAN) Status Reason Specialty Diagnoses / Referred By Referred To Procedures Contact Contact New Request Diagnostic Diagnoses Chip Philip, Radiology Procedures MR HAND LEFT WO CONTRAST [address] [place] [address] Reason for Visit Reason Comments Hand Pain Left Encounter Details Date Type Department Care Team Description 03/25/2020 Office Visit [facility] Chip Albarado MD Herpetic whitlow Orthopaedic Surgery- [address] [place] [address] (P rimary Dx) [address] 1.211 [address] [place], [place] [phone] [phone] Allergies No Known Allergiesdocumented as of this encounter (statuses as of 03/25/2020) Medications Medication Sig Dispensed Refills Start Date [...] daily. HYDROcodone-acetaminop TK 1 T PO TID 0 08/30/2019 Active hen 10-325 mg tablet PRF NECK PAIN calcium acetate 667 mg TAKE 1 CAPSULE 0 08/28/2019 Active capsule BY MOUTH THREE TIMES DAILY WITH MEAL.ALSO TAKE 1 CAPSULE BY MOUTH TWICE DAILY WITH SNACK doxycycline hyclate Take 100 mg by 0 Active 100 mg capsule mouth every 12 (twelve) hours. valACYclovir (VALTREX) Take 1 tablet by 20 tablet 0 03/25/2020 04/04/2020 Active 500 mg mouth 2 (two) tabletIndications: times daily for Herpetic nimo 10 days. amoxicillin-pot Take 1 tablet by 30 tablet 0 03/25/20202019 Active clavulanate 500 mg mouth 3 (three) (AUGMENTIN) 500-125 mg times daily for tabletIndications: 10 days. Herpetic nimo documented as of this encounter (statuses as of 03/25/2020) Active Problems Problem Noted Date Hyperkalemia 02/25/2020 Chest pain 11/19/2019 Immature arteriovenous fistula 08/05/2019 Overview: Added automatically from request for justo wagner [id number] Shortness of breath 03/28/2019 Pulmonary edema 03/27/2019 Acute on chronic diastolic congestive heart failure Essential hypertension 03/27/2019 Type 2 diabetes mellitus without complication, without long-term current 03/27/2019 use of insulin ESRD (end stage renal disease) 02/21/2019 Overview: Added automatically from request for justo wagner [id number] End stage chronic kidney disease 10/01/2018 Overview: Added automatically from request for justo mendiolay [id number] Pain management 09/19/2018 Port-site hernia 09/15/2018 Renal mass, right 09/10/2018 Malignant neoplasm of right kidney 08/23/2018 Overview: Added automatically from request for justo wagner [id number] HCV antibody positive 06/22/2018 Positive 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 06/22/2018 Avascular necrosis of lunate 05/21/2018 Overview: Added automatically from request for justo wagner [id number] H/O rheumatoid arthritis 05/01/2018 Immunization counseling 05/01/2018 [...] as of this encounter (statuses as of 03/25/2020) Immunizations Name Administration Dates Next Due Influenza [...] been in contact with No / Unsure 03/25/2020 1:40 PM CDT someone who was confirmed or suspected to have Coronavirus / COVID-19? documented as of this encounter Last Filed Vital Signs Vital Sign Reading Time Taken Comments Blood Pressure - - Pulse - - Temperature 36.7 C (98.1 F) 03/25/2020 1:54 PM CDT Respiratory Rate - - Oxygen Saturation - - Inhaled Oxygen Concentration - - Weight 99.7 kg (219 lb 14.4 oz) 03/25/2020 1:54 PM CDT Height - - Body Mass Index 31.55 02/25/2020 12:02 PM CDT documented in this encounter Progress Notes Awais Medina MD - 03/25/2020 2:00 PM CDT ORTHO HAND CLINIC NOTE NAME: Vladimir Andrez Date of Service: 03/25/2020 19:11 CC: Left ring finger pain. SUBJECT: Vladimir Maguire is a 49 year old RHD male with a past medical history of CKD (on HD T//), DM, HTN, and HCV who presents to clinic with left ring finger pain. The patient reports that he has had left finger pain for the past two weeks but has been unable to get an appointment to be seen. He suspects that the pain is secondary to an ingrown nail. He endorses clear drainage from the wound. Denies purulence. Pain is increased with flexion and palpation. He denies other concerns and complaintsat this time. CURRENT HOSPITAL MEDICATIONS Current Outpatient Medications on File Prior to Visit Medication Sig Dispense Refill doxycycline hyclate 100 mg capsule Take 100 mg by mouth every 12 (twelve) hours. calcium acetate 667 mg capsule TAKE 1 CAPSULE BY MOUTH THREE TIMES DAILY WITH MEAL.ALSO TAKE 1 CAPSULE BY MOUTH TWICE DAILY WITH SNACK HYDROcodone-acetaminophen 10-325 mg tablet TK 1 T PO TID PRF NECK PAIN 0 NIFEdipine XL 90 mg 24 hr tablet Take 90 mg by mouth daily. 11 cloniDINE 0.1 mg tablet Take 0.1 mg by mouth 3 (three) times daily as needed. lisinopril 30 mg tablet Take 30 mg by mouth daily. metoprolol tartrate 50 mg tablet Take 50 mg by mouth 2 (two) times daily. No current facility-administered medications on file prior to visit. HISTORY Past Surgical History: Procedure Laterality Date ARTERIOVENOUS FISTULA CREATION Left 02/26/2019 Surgeon: Charisse Jean MD; Location: [facility] ARTERIOVENOUS FISTULA REVISION Left 08/23/2019 Surgeon: Charisse Jean MD; [facility] BELOW THE KNEE AMPUTATION REVISION Right 10/2014 DIAGNOSTIC LAPAROSCOPY N/A 09/15/2018 Surgeon: Victor Manuel Graff MD; [facility] DISTAL RADIUS ORIF Right 05/31/2018 Surgeon: Chip Albarado MD; Location[facility] INCISION AND DRAINAGE OF ABSCESS Lower 02/05/2018 Surgeon: Zackery Miramontes MD; Location: [facility] INCISIONAL HERNIORRHAPHY N/A 09/15/2018 Surgeon: Victor Manuel Graff MD; [facility]: [facility] LAPAROSCOPIC NEPHRECTOMY Right 09/10/2018 Surgeon: Victor Manuel Graff MD; Location: [facility] SPINE SURGERY cervical spine fusion 2010 TOE AMPUTATION Left 06/2016 TOTAL KNEE ARTHROPLASTY Left 12/[address] beatty /little pt broken screws in knee All other past surgical history non contributory to this encounter. Past Medical History: Diagnosis Date Acute on chronic diastolic congestive heart failure 03/27/2019 Diabetes type 1, uncontrolled 02/04/2018 ESRD (end stage renal disease) Foot pain, left 02/06/2018 Hepatitis C HLD (hyperlipidemia) 02/04/2018 HTN (hypertension) 02/04/2018 Idiopathic gout, unspecified chronicity, unspecified site 05/01/2018 Malignant neoplasm of right kidney 08/23/2018 Neuropathy 02/04/2018 Perirectal abscess 02/04/2018 Rheumatoid arthritis 02/04/2018 Stage 4 chronic kidney disease 02/04/2018 All other past medical history non contributory to this encounter. Family History Problem Relation Age of Onset Arthritis Mother Diabetes Father Stroke NoFHx [place] (myocardial infarction) NoFHx All other family history non contributory to this encounter. 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 Social Needs Financial resource strain: Not on file Food insecurity: Worry: Not on file Inability: Not on file Transportation needs: Medical: Not on file Non-medical: Not on file Tobacco Use Smoking status: Never Smoker Smokeless tobacco: Never Used Tobacco comment: marajuana daily Substance and Sexual Activity Alcohol use: No Comment: quit 5 years ago Drug use: Yes Types: Marijuana Comment: 1 oz per week Sexual activity: Yes Partners: Female control/protection: Surgical Comment: tubal ligation Lifestyle Physical activity: Days per week: Not on file Minutes per session: Not on file Stress: Not on file Relationships Social connections: Talks on phone: Not on file Gets together: Not on file Attends mormonism service: Not on file Active member of club or organization: Not on file Attends meetings of clubs or organizations: Not on file Relationship status: Not on file Intimate partner violence: Fear of current or ex partner: Not on file Emotionally abused: Not on file Physically abused: Not on file Forced sexual activity: Not on file Other Topics Concern Not on file Social History Narrative Lives at home with girlfriend. 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 REVIEW OF SYSTEMS Constitutional: Denies fever and chills. HEENT: Denies problems with head, ears, eyes, nose, and throat. Cardiac: Denies chest pain and palpitations. Pulmonary: Denies dyspnea and cough. Gastrointestinal: Denies abdominal pain, constipation, and diarrhea. Genitourinary: CKD on HD. Endocrine: DM. Musculoskeletal: Per HPI. Neuro: Denies numbness and tingling. Psych: Denies anxiety and depression. Skin: Per HPI. Allergies: No Known Allergies PHYSICAL EXAM Temp 36.7 C (98.1 F) (Temporal Artery) | Wt 99.7 kg (219 lb 14.4 oz) | BMI 31.55 kg/m General: Alert and oriented, in no acute distress. HEENT: Extraocular movements in tact. Cardiac: Regular rate and rhythm. Pulmonary: Breathing comfortably on room air. Abdomen: Soft, non-distended. Musculoskeletal: Left ring finger held in slight flexion secondary to pain. No dactylitis. Small cutaneous defect on the distal ulnar aspect of affected digit. No drainage appreciated. No associated erythema. Neurovascularly intact distal to the wound. Tenderness to palpation along the flexor sheath of affected digit. Hand exam otherwise unremarkable. Neuro: No focal deficits. Psych: Appropriate mood and affect. Skin: No rashes or pigmented lesions. LABORATORY/MICROBIOLOGY/PATHOLOGY No new labs. RADIOLOGY EXAM: XR HAND 3+ VW LEFT HISTORY: pain COMPARISON: None. FINDINGS: Vascular calcifications are noted. Scattered cystic changes are present in the carpal bones. No acute fracture or dislocation is seen. There is mild diffuse interphalangeal joint space narrowing. Osteoarthritic changes also affect the thumb carpometacarpal and MCP joints. Mild ulnar subluxation of the thumb MCP joint is noted. Calcifications are seen in the dorsal wrist soft tissues. Mild dorsal wrist soft tissue swelling is present. Osteopenia. IMPRESSION No acute bony abnormality. Mild osteoarthrosis. PROCEDURE Verbal consent obtained for finger exploration. 8 CC of 1% lidocaine with 1:100,000 epinephrine wasutilized to perform a ring block on the affected digit. The patient was prepped and draped in the normal sterile fashion. An elevator was used to unfurl the ulnar aspect ring finger nail. No drainage or purulence was identified. No hangnail was identified. The wound was dressed with xeroform, gauze, and tape. ASSESSMENT/PLAN Vladimir Maguire is a 49 year old male with PMH as seen above who presents with left ring finger pain. The patient has a small cutaneous defect and endorses clear drainage though none was present on examination. No hangnail identified on finger exploration. The patient also has significant tenderness to palpation over the flexor sheath. Possible differentials include herpetic nimo versus flexor tenosynovitis. It is possible that the patient does not have erythema and clinical signs of infection secondary to being immunocompromised secondary to diabetes, chronic kidney disease, and hepatitis C. We will prescribe valtrex and augmentin to cover herpetic nimo and possible subclinical infection and order an MRI to assess status of flexor sheath. The patient will follow-up in 1 week to assess response and possibly plan for surgical intervention, if needed. -Valtrex and Augmentin ERX to clinic -MRI hand ordered -RTC 1 week Awais Medina MD 03/25/2020 7:26 PM documented in this encounter Plan of Treatment Name Type Priority Associated Diagnoses Order S chedule MR HAND LEFT WO CONTRAST IMAGING JUAN Herpetic niom Expected: 03/25/2020, Expires: 2020 Health Maintenance Due Date Last [...] of this encounter Implants Implanted Type Area Dry End Tester Device Shelf Model / Identifier Expiration Serial / Date Lot Knee KNEE Knee Plate PLATE Neck Plate Narrow 5 Hole [employer] Ref#[id number] PLATE Right: [employer] [place] 251-05-2 / Implanted: Qty: 1 on 05/31/2018 by Chip Philippe ace, MD at [facility] [employer] [place] 2511-0 5-2 / [place] [id number] -2 Screw SCREW Neck Screw 2.5 Cortical [employer] Ref#[id number] SCREW Right: [employer] [id number] / Implanted: Qty: 1 on 05/31/2018 by Chip Philippe ace, MD at [facility] [employer] [id number] -[id number] / [id number] Screw 2.5 Cortical [employer] Ref#[id number] SCREW Right: [employer] [id number] / Implanted: Qty: 3 on 05/31/2018 by Chip Philippe ace, MD at [facility] [employer] [id number] -2 / [id number] Screw 2.5 Cortical [employer] Ref#[id number] SCREW Right: [employer] [id number] / Implanted: Qty: 3 on 05/31/2018 by Chip Philippe ace, MD at [facility] [employer] [id number] -[id number] / [id number]- 2 Screw 2.5 Cortical [employer] Ref#[id number] SCREW Right: [employer] [id number] / Implanted: Qty: 2 on 05/31/2018 by Chip Philippe ace, MD at [facility] [employer] [id number] -[id number] / [id number] 2 Screw 2.5 Cortical [employer] Ref#[id number] SCREW Right: [employer] [id number] / Implanted: Qty: 2 on 05/31/2018 by Chip Philippe ace, MD at [facility] [employer] [id number] / [id number] Kwirwe 1.4 Ref#[id number] WIRE Right: [employer] [id number] / Implanted: Qty: 1 on 05/31/2018 by Chip Philippe ace, MD at [facility] [employer] 0 / 0 documented as of this encounter Results Not on filedocumented in this encounter Visit Diagnoses Diagnosis Herpetic nimo - Primary documented in this encounter Insurance Payer Benefit Plan Subscriber ID Effective Phone Address Typ e / Group Dates MEDICARE MEDICARE PART xxxxxxxxxxx 2019-Leonor [phone] Medicare A & B nt [id number] [place] [id number] [facility] xxxxxxxxx 2018-Leonor Medic aid HEALTHCARE COMM STAR PLUS nt PLAN - MANAGED MEDICAID documented as of this encounter Advance Directives Name Relationship Healthcare Agent Communication Relationship Erin Lima Spouse Primary healthcare agent Ryan (Mobile) "
--- OUTSIDE RECORDS SUMMARY | 2020-04-10 11:25 | XMS REPORT | Summary of Care ---
:1970 Author Organization [facility] - [facility] Address [address] [place] [address] Care Team Providers Name Role Phone Vicente Hussein Insurance Hmo Antolin Braun Primary Care Provider Sarabjit Roca DO Reactor Service Operator Reason for Referral MRI/CAT Scan (JUAN) Status Reason Specialty Diagnoses / Referred By Referred To Procedures Contact Contact New Request Diagnostic Diagnoses Chip Philip, Radiology Procedures MR HAND LEFT WO CONTRAST [address] [place] [address] Reason for Visit Reason Comments Hand Pain Left Encounter Details Date Type Department Care Team Description 03/25/2020 Office Visit [facility] Chip Albarado MD Herpetic whitlow Orthopaedic Surgery- [address] [place] [address] (P rimary Dx) [address] 1.211 [address] [place], [place] [phone] [phone] Allergies No Known Allergiesdocumented as of this [...] Added automatically from request for justo wagner [id number] Shortness of breath 03/28/2019 Pulmonary edema 03/27/2019 Acute on chronic diastolic congestive heart failure Essential hypertension 03/27/2019 Type 2 diabetes mellitus without complication, without long-term current 03/27/2019 use of insulin ESRD (end stage renal disease) 02/21/2019 Overview: Added automatically from request for justo wagner [id number] End stage chronic kidney disease 10/01/2018 Overview: Added automatically from request for justo mendiolay [id number] Pain management 09/19/2018 Port-site hernia 09/15/2018 Renal mass, right 09/10/2018 Malignant neoplasm of right kidney 08/23/2018 Overview: Added automatically from request for justo wagner [id number] HCV antibody positive 06/22/2018 Positive 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 06/22/2018 Avascular necrosis of lunate 05/21/2018 Overview: Added automatically from request for justo wagner [id number] H/O rheumatoid arthritis 05/01/2018 Immunization counseling 05/01/2018 [...] Never Smoker Smokeless Tobacco: Never Used Comments: jesisca daily Alcohol Use Drinks/Week oz/Week Comments No [...] Left 02/26/2019 Surgeon: Charisse Jean MD; Location: [facility] ARTERIOVENOUS FISTULA REVISION Left 08/23/2019 [...] 09/10/2018 Surgeon: Victor Manuel Graff MD; Location: [facility] SPINE SURGERY cervical spine fusion 2010 TOE [...] Onset Arthritis Mother Diabetes Father Stroke NoFHx [place] (myocardial infarction) NoFHx All other family history [...] file Gets together: Not on file Attends worship service: Not on file Active member of [...] girlfriend. 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 All other social history non contributory [...] HAND LEFT WO CONTRAST IMAGING JUAN Herpetic nimo Expected: 03/25/2020, Expires: 2020 Health Maintenance Due [...] of this encounter Implants Implanted Type Area Depalletizer Operator Device Shelf Model / Identifier Expiration Serial / Date Lot Knee KNEE Knee Plate PLATE Neck Plate Narrow 5 Hole [employer] Ref#[id number] PLATE Right: [employer] [place] 251-05-2 / Implanted: Qty: 1 on 05/31/2018 by Chip Philippe ace, MD at [facility] [employer] [place] 2511-0 5-2 / [place] [address]-10 -2 Screw SCREW Neck Screw 2.5 Cortical [employer] Ref#[id number] SCREW Right: [employer] [id number] / Implanted: Qty: 1 on 05/31/2018 by Chip Philippe ace, MD at [facility] [employer] [id number] -2 / [id number] 2 Screw 2.5 Cortical [employer] Ref#[id number] SCREW Right: [employer] [id number] / Implanted: Qty: 3 on 05/31/2018 by Chip Philippe ace, MD at [facility] [employer] [id number] -2 / [id number] 2 Screw 2.5 Cortical [employer] Ref#[id number] SCREW Right: [employer] [id number] / Implanted: Qty: 3 on 05/31/2018 by Chip Philippe ace, MD at [facility] [employer] [id number] -2 / [id number] 2 Screw 2.5 Cortical [employer] Ref#[id number] SCREW Right: [employer] [id number] / Implanted: Qty: 2 on 05/31/2018 by Chip Philippe ace, MD at [facility] [employer] [id number] -2 / [id number]- 2 Screw 2.5 Cortical [employer] Ref#[id number] SCREW Right: [employer] [id number] / Implanted: Qty: 2 on 05/31/2018 by Chip Philippe ace, MD at [facility] [employer] [id number] / [id number] Kwirwe 1.4 Ref#[id number] WIRE Right: [employer] [id number] / Implanted: Qty: 1 on 05/31/2018 by Chip Philippe ace, MD at [facility] [employer] 0 / 0 documented as of this encounter Results Not on filedocumented in this encounter Visit Diagnoses Diagnosis Herpetic nimo - Primary documented in this encounter Insurance Payer Benefit Plan Subscriber ID Effective Phone Address Typ e / Group Dates MEDICARE MEDICARE PART xxxxxxxxxxx 2019-Leonor [phone] Medicare A & B nt [phone] [id number] [place] [id number] [facility] xxxxxxxxx 2018-Leonor Medic aid HEALTHCARE COMM STAR PLUS nt PLAN - MANAGED MEDICAID documented as of this encounter Advance Directives Name Relationship Healthcare Agent Communication Relationship Erin Lima Spouse Primary healthcare agent Ryan (Mobile) "
--- OUTSIDE RECORDS SUMMARY | 2020-04-10 11:26 | XMS REPORT | Summary of Care ---
:1970 Author Organization [facility] - [facility] Address [address] [place] [address] Care Team Providers Name Role Phone Vicente Hussein Insurance Hmo Antolin Braun Primary Care Provider Sarabjit Roca DO Barge Master Reason for Referral Radiology Services (Routine) Status Reason Specialty Diagnoses / Referred By Referred To Procedures Contact Contact New Request Diagnostic Diagnoses Chip Bob, Radiology Procedures XR HAND 3+ VW LEFT [address] [place] [address] Reason for Visit Radiology Services (Routine) Status Reason Specialty Diagnoses / Referred By Referred To Procedures Contact Contact New Request Diagnostic Diagnoses Chip Bob, Radiology Procedures XR HAND 3+ VW LEFT [address] [place] [address] Encounter Details Date Type Department Care Team Description 03/25/2020 Hospital Encounter [facility] Chip Philippe ace, MD Arrived [facility] [address] [place] [address] [phone] Allergies No Known Allergiesdocumented as of this encounter (statuses as of 03/26/2020) Medications Medication Sig Dispensed Refills Start Date [...] as of this encounter (statuses as of 03/26/2020) Active Problems Problem Noted Date Hyperkalemia 02/25/2020 Chest pain 11/19/2019 Immature arteriovenous fistula 08/05/2019 Overview: Added automatically from request for justo wagner [id number] Shortness of breath 03/28/2019 Pulmonary edema 03/27/2019 Acute on chronic diastolic congestive heart failure Essential hypertension 03/27/2019 Type 2 diabetes mellitus without complication, without long-term current 03/27/2019 use of insulin ESRD (end stage renal disease) 02/21/2019 Overview: Added automatically from request for justo mendiolay [id number] End stage chronic kidney disease 10/01/2018 Overview: Added automatically from request for justo mendiolay [id number] Pain management 09/19/2018 Port-site hernia 09/15/2018 Renal mass, right 09/10/2018 Malignant neoplasm of right kidney 08/23/2018 Overview: Added automatically from request for justo mendiolay [id number] HCV antibody positive 06/22/2018 Positive 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 06/22/2018 Avascular necrosis of lunate 05/21/2018 Overview: Added automatically from request for justo wagner [id number] H/O rheumatoid arthritis 05/01/2018 Immunization counseling 05/01/2018 [...] as of this encounter (statuses as of 03/26/2020) Immunizations Name Administration Dates Next Due Influenza [...] Treatment Date Type Specialty Care Team Description 04/01/2020 Office Visit Orthopedic Surgery Heri Albarado MD [address] [place] [address] [phone] Health Maintenance Due Date Last Done Comments [...] of this encounter Implants Implanted Type Area Executive Advisor Device Shelf Model / Identifier Expiration Serial / Date Lot Knee KNEE Knee Plate PLATE Neck Plate Narrow 5 Hole [employer] Ref#[id number] PLATE Right: [employer] [place] 2511-05-2 / Implanted: Qty: 1 on 05/31/2018 by Chip Philippe ace, MD at [facility] [employer] [place] 2511-0 5-2 / [place] 2511-05 -2 Screw SCREW Neck Screw 2.5 Cortical [employer] Ref#[id number] SCREW Right: [employer] [id number] / Implanted: Qty: 1 on 05/31/2018 by Chip Philippe ace, MD at [facility] [employer] [id number] -2 / [id number]- 2 Screw 2.5 Cortical [employer] Ref#[id number] SCREW Right: [employer] [id number] / Implanted: Qty: 3 on 05/31/2018 by Chip Philippe ace, MD at [facility] [employer] [id number] -2 / [id number]- 2 Screw 2.5 Cortical [employer] Ref#[id number] SCREW Right: [employer] [id number] / Implanted: Qty: 3 on 05/31/2018 by Chip Philippe ace, MD at [facility] [employer] [id number] -2 / [id number]- 2 Screw 2.5 Cortical [employer] Ref#[id number] SCREW Right: [employer] [id number] / Implanted: Qty: 2 on 05/31/2018 by Chip Philippe ace, MD at [facility] [employer] [id number] -2 / [id number]- 2 Screw 2.5 Cortical Integra [employer] Ref#[id number] SCREW Right: [employer] [id number] / Implanted: Qty: 2 on 05/31/2018 by Chip Philippe ace, MD at [facility] [employer] [id number] / [id number] Kwirwe 1.4 Ref#[id number] WIRE Right: [employer] [id number] / Implanted: Qty: 1 on 05/31/2018 by Chip Philippe ace, MD at [facility] [employer] 0 / 0 documented as of this encounter Procedures Procedure Name Priority Date/Time Associated Diagnosis Comme nts XR HAND 3+ VW LEFT Routine 03/25/2020 2:01 PM Pain Re sults for this CDT procedure are i n the results section. documented in this encounter Results XR HAND 3+ VW LEFT (03/25/2020 2:01 PM CDT) Specimen Impressions Performed At PACS/VR/DOSE No acute bony abnormality. Mild osteoarthrosis. Narrative Performed At EXAM: PACS/VR/DOSE XR HAND 3+ VW LEFT HISTORY: pain COMPARISON: None. FINDINGS: Vascular calcifications are noted. Scattered cystic ch anges are present in the carpal bones. No acute fracture or dislocation is seen. There is mild diffuse interphalangeal joint space narrowing. Osteoar thritic changes also affect the thumb carpometacarpal and MCP joints. Mild ulnar subluxation of the thumb MCP joint is noted. Calcifications are seen in the dorsal wrist soft tissues. Mild dorsal wrist soft tis augustin swelling is present. Osteopenia. Procedure Note [facility], Radiant Results Inft User - 2019 2:20 PM CDT EXAM: XR HAND 3+ VW LEFT HISTORY: pain COMPARISON: None. FINDINGS: Vascular calcifications are noted. Scatt ered cystic changes are present in the carpal bones. No acute fracture or d islocation is seen. There is mild diffuse interphalangeal joint space narr owing. Osteoarthritic changes also affect the thumb carpometacarpal and MCP joints. Mild ulnar subluxation of the thumb MCP joint is noted. Calcificat ions are seen in the dorsal wrist soft tissues. Mild dorsal wrist soft tis augustin swelling is present. Osteopenia. IMPRESSION No acute bony abnormality. Mild osteoarthrosis. Performing Organization Address City/State/Zipcode Phone Number PACS/VR/DOSE documented in this encounter Visit Diagnoses Diagnosis Pain Generalized pain documented in this encounter Insurance Payer Benefit Plan Subscriber ID Effective Phone Address Typ e / Group Dates MEDICARE MEDICARE PART xxxxxxxxxxx 2019-Leonor [phone] [facility] Medicare A & B [id number] ZEE ARCOS [id number] [facility] xxxxxxxxx 2018-Leonor Medic aid HEALTHCARE COMM STAR PLUS nt PLAN - MANAGED MEDICAID documented as of this encounter Advance Directives Name Relationship Healthcare Agent Communication Relationship Bridgette Lima Spouse Primary healthcare agent [phone] Ryan (Mobile)
--- OUTSIDE RECORDS SUMMARY | 2020-04-10 11:27 | XMS REPORT | Summary of Care ---
:1970 Author Organization [facility] - [facility] Address [address] [place] [address] Care Team Providers Name Role Phone Vicente Hussein Insurance Hmo Antolin Braun Primary Care Provider Sarabjit Roca DO Neurosurgical Physician Assistant Reason for Referral MRI/CAT Scan (JUAN) Status Reason Specialty Diagnoses / Referred By Referred To Procedures Contact Contact New Request Diagnostic Diagnoses Chip Philip, Radiology Procedures MR HAND LEFT WO CONTRAST [address] [place] [address] Reason for Visit Reason Comments Hand Pain Left Encounter Details Date Type Department Care Team Description 03/25/2020 Office Visit [facility] Chip Albarado MD Herpetic whitlow Orthopaedic Surgery- [address] [place] [address] (P rimary Dx) [address] 1.211 [address] [place], [place] [phone] [address] [phone] Allergies No Known Allergiesdocumented as of this [...] Added automatically from request for justo wagner [id number] Shortness of breath 03/28/2019 Pulmonary edema 03/27/2019 Acute on chronic diastolic congestive heart failure Essential hypertension 03/27/2019 Type 2 diabetes mellitus without complication, without long-term current 03/27/2019 use of insulin ESRD (end stage renal disease) 02/21/2019 Overview: Added automatically from request for justo wagner [id number] End stage chronic kidney disease 10/01/2018 Overview: Added automatically from request for justo mendiolay [id number] Pain management 09/19/2018 Port-site hernia 09/15/2018 Renal mass, right 09/10/2018 Malignant neoplasm of right kidney 08/23/2018 Overview: Added automatically from request for justo wagner [id number] HCV antibody positive 06/22/2018 Positive 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 06/22/2018 Avascular necrosis of lunate 05/21/2018 Overview: Added automatically from request for justo wagner [id number] H/O rheumatoid arthritis 05/01/2018 Immunization counseling 05/01/2018 [...] CDT documented in this encounter Progress Notes Chip Albraado MD - 03/25/2020 2:00 PM CDTI personally examined the patient and agree with Dr. Medina's resident note as written . In addition, I was present for and supervised the entire procedure(s). Please see the resident's note for additional details. Chip Albarado MD, FAAOS Board Certified Orthopedic Surgery Subspecialty Certified in Hand Surgery mithAwais MD - 03/25/2020 2:00 PM CDT ORTHO HAND CLINIC NOTE NAME: Vladimir Maguire Date of Service: 03/25/2020 19:11 CC: Left [...] Left 02/26/2019 Surgeon: Charisse Jean MD; [facility] ARTERIOVENOUS FISTULA REVISION Left 08/23/2019 Surgeon: Charisse Jean MD; [facility] BELOW THE KNEE AMPUTATION REVISION Right 10/2014 DIAGNOSTIC LAPAROSCOPY N/A 09/15/2018 Surgeon: Victor Manuel Graff MD; [facility] DISTAL RADIUS ORIF Right 05/31/2018 Surgeon: Chip Albarado MD; Location: [facility] Location INCISION AND DRAINAGE OF ABSCESS Lower 02/05/2018 Surgeon: Zackery Miramontes MD; Location: [facility] Location INCISIONAL HERNIORRHAPHY N/A 09/15/2018 Surgeon: Victor Manuel Graff MD; Location: [facility] Location LAPAROSCOPIC NEPHRECTOMY Right 09/10/2018 Surgeon: Victor Manuel Graff MD; Location: [facility] Location SPINE SURGERY cervical spine fusion 2010 TOE [...] Onset Arthritis Mother Diabetes Father Stroke NoFHx [place] (myocardial infarction) NoFHx All other family history [...] Smoker Smokeless tobacco: Never Used Tobacco comment: jessica daily Substance and Sexual Activity Alcohol use: [...] file Gets together: Not on file Attends catholic service: Not on file Active member of [...] girlfriend. 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[employer] All other social history non contributory to [...] documented in this encounter Plan of Treatment Date Type Specialty Care Team Description 04/01/2020 Office Visit Orthopedic Surgery Heri Albarado MD [address] [place] [address] Name Type Priority Associated Diagnoses Order S [...] of this encounter Implants Implanted Type Area Exhibit Builder Device Shelf Model / Identifier Expiration Serial / Date Lot Knee KNEE Knee Plate PLATE Neck Plate Narrow 5 Hole [employer] Ref#[id number] PLATE Right: [employer] [place] 2511-05-2 / Implanted: Qty: 1 on 05/31/2018 by Chip Philippe ace, MD at [facility] [employer] [place] 2511-0 5-2 / [place] 2511-05 -2 Screw SCREW Neck Screw 2.5 Cortical [employer] Ref#[id number] SCREW Right: [employer] [id number] / Implanted: Qty: 1 on 05/31/2018 by Chip Philippe ace, MD at [facility] [employer] UB2907-28 -2 / [id number]- 2 Screw 2.5 Cortical [employer] Ref#[id number] SCREW Right: [employer] [id number] / Implanted: Qty: 3 on 05/31/2018 by Chip Philippe ace, MD at [facility] [employer] [id number] -2 / [id number]- 2 Screw 2.5 Cortical [employer] Ref#[id number] SCREW Right: [employer] [id number] / Implanted: Qty: 3 on 05/31/2018 by Chip Philippe ace, MD at [facility] [employer] [id number] -2 / [id number]- 2 Screw 2.5 Cortical [employer] Ref#[id number] SCREW Right: [employer] [id number] / Implanted: Qty: 2 on 05/31/2018 by Chip Philippe ace, MD at [facility] [employer] [id number] -2 / [id number]- 2 Screw 2.5 Cortical [employer] Ref#[id number] SCREW Right: [employer] [id number] / Implanted: Qty: 2 on 05/31/2018 by Chip Philippe ace, MD at [facility] [employer] [id number] / [id number] Kwirwe 1.4 Ref#[id number] WIRE Right: [employer] [id number] / Implanted: Qty: 1 on 05/31/2018 by Chip Philippe ace, MD at [facility] [employer] 0 / 0 documented as of this encounter Results Not on filedocumented in this encounter Visit Diagnoses Diagnosis Herpetic nimo - Primary documented in this encounter Insurance Payer Benefit Plan Subscriber ID Effective Phone Address Typ e / Group Dates MEDICARE MEDICARE PART xxxxxxxxxxx 2019-Prese [phone] [address] Medicare A & B nt [id number] BRISA DUNBARZEE [id number] [facility] xxxxxxxxx 2018-Prese Medic aid HEALTHCARE COMM STAR PLUS nt PLAN - MANAGED MEDICAID documented as of this encounter Advance Directives Name Relationship Healthcare Agent Communication Relationship Erin Lima Spouse Primary healthcare agent [phone] Ryan (Mobile) "
--- OUTSIDE RECORDS SUMMARY | 2020-04-10 11:27 | XMS REPORT | Summary of Care ---
:1970 Author Organization [facility] Address [address] [place] [address] Care Team Providers Name Role Phone Vicente Hussein Insurance Hmo Antolin Braun Primary Care Provider Sarabjit Roca DO It Support Consultant Reason for Referral MRI/CAT Scan (JUAN) Status Reason Specialty Diagnoses / Referred By Referred To Procedures Contact Contact New Request Diagnostic Diagnoses Chip Philip, Radiology Procedures MR HAND LEFT WO CONTRAST [address] [place] [address] Reason for Visit Reason Comments Hand Pain Left Encounter Details Date Type Department Care Team Description 03/25/2020 Office Visit [facility] Chip Albarado MD Herpetic whitlow Orthopaedic Surgery- [address] [place] [address] (P rimary Dx) [address] 1.211 [address] [place], [place] [phone] [address] [phone] Allergies No Known Allergiesdocumented as of this [...] mg times daily for tabletIndications: 10 days. [facility], Clinic, or Ordered Dose Route Frequency Start Date End D ate Status Other Facility Administered Medication lidocaine 1% 10 mL Infiltration ONCE 03/26/2020 03/26/2020 En ded (XYLOCAINE) 10 mg/mL (1 %) injection 10 mL documented as of this encounter (statuses as of 03/26/2020) Active Problems Problem Noted Date Hyperkalemia 02/25/2020 Chest pain 11/19/2019 Immature arteriovenous fistula 08/05/2019 Overview: Added automatically from request for justo wagner [id number] Shortness of breath 03/28/2019 Pulmonary edema 03/27/2019 Acute on chronic diastolic congestive heart failure Essential hypertension 03/27/2019 Type 2 diabetes mellitus without complication, without long-term current 03/27/2019 use of insulin ESRD (end stage renal disease) 02/21/2019 Overview: Added automatically from request for justo wagner [id number] End stage chronic kidney disease 10/01/2018 Overview: Added automatically from request for justo wagner [id number] Pain management 09/19/2018 Port-site hernia 09/15/2018 Renal mass, right 09/10/2018 Malignant neoplasm of right kidney 08/23/2018 Overview: Added automatically from request for justo wagner [id number] HCV antibody positive 06/22/2018 Positive 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 06/22/2018 Avascular necrosis of lunate 05/21/2018 Overview: Added automatically from request for justo wagner [id number] H/O rheumatoid arthritis 05/01/2018 Immunization counseling 05/01/2018 [...] documented in this encounter Progress Notes Chip Albarado MD - 03/25/2020 2:00 PM CDTI personally [...] Left 02/26/2019 Surgeon: Charisse Jean MD; [place] [facility] [place]ERIOVENOUS FISTULA REVISION Left 08/23/2019 Surgeon: Charisse Jean MD; Location: [facility] Location BELOW THE KNEE AMPUTATION REVISION Right 10/2014 DIAGNOSTIC LAPAROSCOPY N/A 09/15/2018 Surgeon: Victor Manuel Graff MD; Location: [facility] Location DISTAL RADIUS ORIF Right 05/31/2018 Surgeon: Chip Albarado MD; Location: [facility] OR Location INCISION AND DRAINAGE OF ABSCESS Lower 02/05/2018 Surgeon: Zackery Miramontes MD; Location: [facility] Location INCISIONAL HERNIORRHAPHY N/A 09/15/2018 Surgeon: [...] Onset Arthritis Mother Diabetes Father Stroke NoFHx [place] (myocardial infarction) NoFHx All other family history [...] file Gets together: Not on file Attends hinduism service: Not on file Active member of [...] girlfriend. 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 All other social history non contributory [...] Office Visit Orthopedic Surgery Heri Albarado MD [address] [place] [address] [phone] Name Type Priority Associated Diagnoses Order S [...] of this encounter Implants Implanted Type Area Conduit Cleaner Device Shelf Model / Identifier Expiration Serial / Date Lot Knee KNEE Knee Plate PLATE Neck Plate Narrow 5 Hole [employer] Ref#[id number] PLATE Right: [employer] [place] 2511-05-2 / Implanted: Qty: 1 on 05/31/2018 by Chip Philippe ace, MD at [facility] [employer] [place] 2511-0 5-2 / [place] 2511-05 -2 Screw SCREW Neck Screw 2.5 Cortical [employer] Ref#[id number] SCREW Right: [employer] [id number] / Implanted: Qty: 1 on 05/31/2018 by Chip Philippe ace, MD at [facility] [employer] [id number] -2 / [id number]- 2 Screw 2.5 Cortical [employer] Ref#[id number] SCREW Right: [employer] [id number] / Implanted: Qty: 3 on 05/31/2018 by Chip Philippe ace, MD at [facility] [employer] [id number] -2 / [id number]- 2 Screw 2.5 Cortical [employer] Ref#[id number] SCREW Right: [employer] [id number] / Implanted: Qty: 3 on 05/31/2018 by Chip Philippe ace, MD at [facility] [employer] [id number] -2 / [id number]- 2 Screw 2.5 Cortical [employer] Ref#[id number] SCREW Right: [employer] [id number] / Implanted: Qty: 2 on 05/31/2018 by Chip Philippe ace, MD at [facility] [employer] [id number] -2 / [id number]- 2 Screw 2.5 Cortical [employer] Ref#[id number] SCREW Right: [employer] [id number] / Implanted: Qty: 2 on 05/31/2018 by Chip Philippe ace, MD at [facility] [id number] / [id number] Kwirwe 1.4 Ref#[id number] WIRE Right: [employer] [id number] / Implanted: Qty: 1 on 05/31/2018 by Chip Philippe ace, MD at [facility] 0 / 0 documented as of this encounter Results Not on filedocumented in this encounter Visit Diagnoses Diagnosis Herpetic nimo - Primary documented in this encounter Administered Medications Medication Order MAR Action Action Date Dose Rate Site lidocaine 1% (XYLOCAINE) Given by Provider 03/26/2020 10:10 AM 10 mL Left Hand 10 mg/mL (1 %) injection CDT 10 mL 10 mL, Infiltration, ONCE, 1 dose, [facility] 03/26/20 at 1115, Routine documented in this encounter Insurance Payer Benefit Plan Subscriber ID Effective Phone Address Typ e / Group Dates MEDICARE MEDICARE PART xxxxxxxxxxx 2019-Leonor [phone] [address] Medicare A & B nt [id number] ZEE ARCOS [id number] [facility] xxxxxxxxx 2018-Leonor Medic aid [facility] STAR PLUS nt PLAN - MANAGED MEDICAID documented as of this encounter Advance Directives Name Relationship Healthcare Agent Communication Relationship Erin Lima Spouse Primary healthcare agent [phone] Ryan (Mobile) "
--- OUTSIDE RECORDS SUMMARY | 2020-04-10 11:28 | XMS REPORT | Summary of Care ---
:1970 Author Organization [facility] - [facility] Address [address] [place] [address] Care Team Providers Name Role Phone Vicente Hussein Insurance Hmo Antolin Braun Primary Care Provider Sarabjit Roca DO Ncqa Specialist Reason for Referral MRI/CAT Scan (JUAN) Status Reason Specialty Diagnoses / Referred By Referred To Procedures Contact Contact New Request Diagnostic Diagnoses Chip Philip, Radiology Procedures MR HAND LEFT WO CONTRAST [address] [place] [address] Reason for Visit Reason Comments Hand Pain Left Encounter Details Date Type Department Care Team Description 03/25/2020 Office Visit [facility] Chip Albarado MD Herpetic whitlow Orthopaedic Surgery- [address] [place] [address] (P rimary Dx) [address] 1.211 [address] [place], [place] [phone] [address] [phone] Allergies No Known Allergiesdocumented as of this [...] mg times daily for tabletIndications: 10 days. [facility], or Ordered Dose Route Frequency [...] Added automatically from request for justo wagner [id number] Shortness of breath 03/28/2019 Pulmonary edema 03/27/2019 Acute on chronic diastolic congestive heart failure Essential hypertension 03/27/2019 Type 2 diabetes mellitus without complication, without long-term current 03/27/2019 use of insulin ESRD (end stage renal disease) 02/21/2019 Overview: Added automatically from request for justo wagner [id number] End stage chronic kidney disease 10/01/2018 Overview: Added automatically from request for justo wagner [id number] Pain management 09/19/2018 Port-site hernia 09/15/2018 Renal mass, right 09/10/2018 Malignant neoplasm of right kidney 08/23/2018 Overview: Added automatically from request for justo wagner [id number] HCV antibody positive 06/22/2018 Positive 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 06/22/2018 Avascular necrosis of lunate 05/21/2018 Overview: Added automatically from request for justo wagner [id number] H/O rheumatoid arthritis 05/01/2018 Immunization counseling 05/01/2018 [...] Left 02/26/2019 Surgeon: Charisse Jean MD; [place] [facility] [place] ARTERIOVENOUS FISTULA REVISION Left 08/23/2019 Surgeon: Charisse Jean MD; Location: [facility] Location BELOW THE KNEE AMPUTATION REVISION Right 10/2014 DIAGNOSTIC LAPAROSCOPY N/A 09/15/2018 Surgeon: Victor Manuel Graff MD; Location: [facility] OR Location DISTAL RADIUS ORIF Right 05/31/2018 Surgeon: Chip Albarado MD; Location: [facility] OR Location INCISION AND DRAINAGE OF ABSCESS Lower 02/05/2018 Surgeon: Zackery Miramontes MD; Location: [facility] Location INCISIONAL HERNIORRHAPHY N/A 09/15/2018 [...] Onset Arthritis Mother Diabetes Father Stroke NoFHx OR (myocardial infarction) NoFHx All other family history [...] girlfriend. 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 All other social history non contributory [...] Office Visit Orthopedic Surgery Heri Albarado MD [address] [place] [address] [phone] Name Type Priority Associated Diagnoses Order S [...] of this encounter Implants Implanted Type Area Director Energy Device Shelf Model / Identifier Expiration Serial / Date Lot Knee KNEE Knee Plate PLATE Neck Plate Narrow 5 Hole [employer] Ref#[id number] PLATE Right: [employer] [place] 2511-05-2 / Implanted: Qty: 1 on 05/31/2018 by Chip Philippe ace, MD at [facility] [employer] [place] 2511-0 5-2 / [place] 2511-05 -2 Screw SCREW Neck Screw 2.5 Cortical [employer] Ref#[id number] SCREW Right: [employer] [id number] / Implanted: Qty: 1 on 05/31/2018 by Chip Philippe ace, MD at [facility] [employer] [id number] -2 / [id number]- 2 Screw 2.5 Cortical [employer] Ref#[id number] SCREW Right: [employer] [id number] / Implanted: Qty: 3 on 05/31/2018 by Chip Philippe ace, MD at [facility] [employer] SF8817-77 -2 / [id number]- 2 Screw 2.5 Cortical [employer] Ref#[id number] SCREW Right: [employer] [id number] / Implanted: Qty: 3 on 05/31/2018 by Chip Philippe ace, MD at [facility] [employer] [id number] -2 / [id number]- 2 Screw 2.5 Cortical [employer] Ref#[id number] SCREW Right: [employer] [id number] / Implanted: Qty: 2 on 05/31/2018 by Chip Philippe ace, MD at [facility] [employer] [id number] -2 / [id number]- 2 Screw 2.5 Cortical [employer] Ref#[id number] SCREW Right: [employer] [id number] / Implanted: Qty: 2 on 05/31/2018 by Chip Philippe ace, MD at [facility] [id number] / [id number] Kwirwe 1.4 Ref#[id number] WIRE Right: [employer] [id number] / Implanted: Qty: 1 on 05/31/2018 by Chip Philippe ace, MD at [facility] 0 / 0 documented as of this [...] mL 10 mL, Infiltration, ONCE, 1 dose, [facility] 03/26/20 at 1115, Routine documented in this encounter Insurance Payer Benefit Plan Subscriber ID Effective Phone Address Typ e / Group Dates MEDICARE MEDICARE PART xxxxxxxxxxx 2019-Leonor [phone] Medicare A & B nt [id number] [place]EE [place] [id number] [facility] xxxxxxxxx 2018-Leonor Medic aid HEALTHCARE [facility] STAR PLUS nt PLAN - MANAGED MEDICAID documented as of this encounter Advance Directives Name Relationship Healthcare Agent Communication Relationship Erin Lima Spouse Primary healthcare agent Ryan (Mobile) "
--- OUTSIDE RECORDS SUMMARY | 2020-04-10 11:29 | XMS REPORT | Summary of Care ---
:1970 Author Organization [facility] - [facility] Address [address] [place] [address] Care Team Providers Name Role Phone Vicente Hussein Insurance Hmo Antolin Braun Primary Care Provider Sarabjit Roca DO Under Trimmer Reason for Visit Reason Comments Wound infected wound on L hand, [place]uther[place] s worsened, now all fingers swelling. Encounter Details Date Type Department Care Team Description 03/27/2020 Nurse Triage [facility] Ora Chand RN Wound (infected wound [address] [place] [address] on L hand, has [place] [address] worsened, [place] [address] fingers swelling. ) [phone] Allergies No Known Allergiesdocumented as of this encounter (statuses as of 03/27/2020) Medications Medication Sig Dispensed Refills Start Date [...] as of this encounter (statuses as of 03/27/2020) Active Problems Problem Noted Date Hyperkalemia 02/25/2020 Chest pain 11/19/2019 Immature arteriovenous fistula 08/05/2019 Overview: Added automatically from request for justo wagner [id number] Shortness of breath 03/28/2019 Pulmonary edema 03/27/2019 Acute on chronic diastolic congestive heart failure Essential hypertension 03/27/2019 Type 2 diabetes mellitus without complication, without long-term current 03/27/2019 use of insulin ESRD (end stage renal disease) 02/21/2019 Overview: Added automatically from request for justo wagner [id number] End stage chronic kidney disease 10/01/2018 Overview: Added automatically from request for justo wagner [id number] Pain management 09/19/2018 Port-site hernia 09/15/2018 Renal mass, right 09/10/2018 Malignant neoplasm of right kidney 08/23/2018 Overview: Added automatically from request for justo wagner [id number] HCV antibody positive 06/22/2018 Positive 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 06/22/2018 Avascular necrosis of lunate 05/21/2018 Overview: Added automatically from request for justo wagner [id number] H/O rheumatoid arthritis 05/01/2018 Immunization counseling 05/01/2018 [...] as of this encounter (statuses as of 03/27/2020) Immunizations Name Administration Dates Next Due Influenza [...] been in contact with No / Unsure 03/27/2020 9:27 AM CDT someone who was confirmed or suspected to have Coronavirus / COVID-19? documented as of this encounter Last Filed Vital Signs Not on filedocumented in this encounter Plan of Treatment Date Type Specialty Care Team Description 04/01/2020 Office Visit Orthopedic Surgery Heri Albarado MD [address] [place] [address] [phone] Health Maintenance Due Date Last Done Comments [...] of this encounter Implants Implanted Type Area House Visitor Device Shelf Model / Identifier Expiration Serial / Date Lot Knee KNEE Knee Plate PLATE Neck Plate Narrow 5 Hole [employer] Ref#[id number] PLATE Right: [employer] [place] 2511-05-2 / Implanted: Qty: 1 on 05/31/2018 by Chip Philippe ace, MD at [facility] [employer] [place] 2511-0 5-2 / [place] 2511- - Screw SCREW Neck Screw 2.5 Cortical [employer] Ref#[id number] SCREW Right: [employer] [id number] / Implanted: Qty: 1 on 05/31/2018 by Chpi Philippe ace, MD at [facility] [employer] NO1450-82 -2 / [id number]- 2 Screw 2.5 Cortical [employer] Ref#[id number] SCREW Right: [employer] [id number] / Implanted: Qty: 3 on 05/31/2018 by Chip Philippe ace, MD at [facility] [employer] WY9844-52 -2 / [id number]- 2 Screw 2.5 Cortical [employer] Ref#[id number] SCREW Right: [employer] [id number] / Implanted: Qty: 3 on 05/31/2018 by Chip Philippe ace, MD at [facility] [employer] WG9065-00 -2 / [id number]- 2 Screw 2.5 Cortical [employer] Ref#[id number] SCREW Right: [employer] [id number] / Implanted: Qty: 2 on 05/31/2018 by Chip Philippe ace, MD at [facility] [employer] JG0614-09 -2 / [id number]- 2 Screw 2.5 Cortical [employer] Ref#[id number] SCREW Right: [employer] [id number] / Implanted: Qty: 2 on 05/31/2018 by Chip Philippe ace, MD at [facility] [employer] MR6552-45 / [id number] Kwirwe 1.4 Ref#[id number] WIRE Right: [employer] [id number] / Implanted: Qty: 1 on 05/31/2018 by Chip Philippe ace, MD at [facility] [employer] 0 / 0 documented as of this encounter Results Not on filedocumented in this encounter Insurance Payer Benefit Plan / Subscriber ID Effective Dates Phone Addre ss Type Group MEDICARE MEDICARE PART xxxxxxxxxxx 2019-Presen [phone] Medicare A & B t 2 [id number] [place] [id number] [facility] MEDICAID OF xxxxxxxxx 2019-Marley [phone] [address] Medicaid [place] t 0 [id number] [place] [address] documented as of this encounter Advance Directives Name Relationship Healthcare Agent Communication Relationship Bridgette Lima Spouse Primary healthcare agent Ryan (Mobile)
--- OUTSIDE RECORDS SUMMARY | 2020-04-10 11:30 | XMS REPORT | Summary of Care ---
:1970 Author Organization [facility] - [facility] Address [address] [place] [address] Care Team Providers Name Role Phone Vicente Hussein Insurance Hmo Antolin Braun Primary Care Provider Sarabjit Roca DO Supervisor Of Way Reason for Visit MRI/CAT Scan (JUAN) Status Reason Specialty Diagnoses / Referred By Referred To Procedures Contact Contact Closed Diagnostic Diagnoses Herpetic Chip Bo, Radiology Procedures MR HAND LEFT WO CONTRAST [address] [place] [address] Encounter Details Date Type Department Care Team Description 03/27/2020 Hospital Encounter [facility] Magnetic Chip Albarado MD Arrived Resonance Imaging [address] [facility] [address] [place] [phone] Allergies No Known Allergiesdocumented as of this encounter (statuses as of 03/28/2020) Medications Medication Sig Dispensed Refills Start Date [...] as of this encounter (statuses as of 03/28/2020) Active Problems Problem Noted Date Hyperkalemia 02/25/2020 Chest pain 11/19/2019 Immature arteriovenous fistula 08/05/2019 Overview: Added automatically from request for justo wagner [id number] Shortness of breath 03/28/2019 Pulmonary edema 03/27/2019 Acute on chronic diastolic congestive heart failure Essential hypertension 03/27/2019 Type 2 diabetes mellitus without complication, without long-term current 03/27/2019 use of insulin ESRD (end stage renal disease) 02/21/2019 Overview: Added automatically from request for justo wagner [id number] End stage chronic kidney disease 10/01/2018 Overview: Added automatically from request for justo wagner [id number] Pain management 09/19/2018 Port-site hernia 09/15/2018 Renal mass, right 09/10/2018 Malignant neoplasm of right kidney 08/23/2018 Overview: Added automatically from request for justo wagner [id number] HCV antibody positive 06/22/2018 Positive 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 06/22/2018 Avascular necrosis of lunate 05/21/2018 Overview: Added automatically from request for justo wagner [id number] H/O rheumatoid arthritis 05/01/2018 Immunization counseling 05/01/2018 [...] as of this encounter (statuses as of 03/28/2020) Immunizations Name Administration Dates Next Due Influenza [...] last month, have you been in contact Unable to assess 03/27/2020 9:40 PM CDT with someone who was confirmed or suspected to have Coronavirus / COVID-19? documented as of this encounter Last Filed Vital Signs Not on filedocumented in this encounter Plan of Treatment Date Type Specialty Care Team Description 04/01/2020 Office Visit Orthopedic Surgery Heri Albarado MD [address] [place] [address] [phone] Name Type Priority Associated Diagnoses Date/Ti me MR HAND LEFT WO IMAGING JUAN Herpetic nimo 03/27/20 20 11:32 AM CDT CONTRAST Health Maintenance Due Date Last Done Comments [...] of this encounter Implants Implanted Type Area Industrial Cafeteria Manager Device Shelf Model / Identifier Expiration Serial / Date Lot Knee KNEE Knee Plate PLATE Neck Plate Narrow 5 Hole [employer] Ref#[id number] PLATE Right: [employer] [place] 2511-05-2 / Implanted: Qty: 1 on 05/31/2018 by Chip Philippe ace, MD at [facility] [employer] [place] 2511-0 5-2 / [place] 2511-05 -2 Screw SCREW Neck Screw 2.5 Cortical [employer] Ref#[id number] SCREW Right: [employer] [id number] / Implanted: Qty: 1 on 05/31/2018 by Chip Philippe ace, MD at [facility] [employer] HP3910-00 -2 / [id number]- 2 Screw 2.5 Cortical [employer] Ref#[id number] SCREW Right: [employer] [id number] / Implanted: Qty: 3 on 05/31/2018 by Chip Philippe ace, MD at [facility] [employer] IR9860-63 -2 / [id number]- 2 Screw 2.5 Cortical [employer] Ref#[id number] SCREW Right: [employer] [id number] / Implanted: Qty: 3 on 05/31/2018 by Chip Philippe ace, MD at [facility] [employer] ZX0592-70 -2 / [id number]- 2 Screw 2.5 Cortical [employer] Ref#[id number] SCREW Right: [employer] [id number] / Implanted: Qty: 2 on 05/31/2018 by Chip Philippe ace, MD at [facility] [employer] ZC2561-13 -2 / [id number]- 2 Screw 2.5 Cortical [employer] Ref#[id number] SCREW Right: [employer] [id number] / Implanted: Qty: 2 on 05/31/2018 by Chip Philippe ace, MD at [facility] [employer] KJ0078-36 / [id number] Kwirwe 1.4 Ref#[id number] WIRE Right: [employer] [id number] / Implanted: Qty: 1 on 05/31/2018 by Chip Philippe ace, MD at [facility] [employer] 0 / 0 documented as of this encounter Results Not on filedocumented in this encounter Insurance Payer Benefit Plan Subscriber ID Effective Phone Address Typ e / Group Dates MEDICARE MEDICARE PART xxxxxxxxxxx 2019-Prese [phone] Medicare A & B nt [id number] [place]EE [place] [id number] [facility] xxxxxxxxx 2020-Prese Medic aid HEALTHCARE COMM STAR PLUS nt PLAN - MANAGED MEDICAID documented as of this encounter Advance Directives Name Relationship Healthcare Agent Communication Relationship Bridgette Lima Spouse Primary healthcare agent Ryan (Mobile) [email or web address]
--- OUTSIDE RECORDS SUMMARY | 2020-04-10 11:31 | XMS REPORT | Summary of Care ---
:1970 Author Organization [facility] Address [address] [place] [address] Care Team Providers Name Role Phone Vicente Hussein Insurance Hmo Antolin Braun Primary Care Provider Sarabjit Roca DO Nursing Program Director Reason for Referral MRI/CAT Scan (JUAN) Status Reason Specialty Diagnoses / Referred By Referred To Procedures Contact Contact Closed Diagnostic Diagnoses Herpetic Chip Bo, Radiology Procedures MR HAND LEFT WO CONTRAST [address] [place] [address] Reason for Visit MRI/CAT Scan (JUAN) Status Reason Specialty Diagnoses / Referred By Referred To Procedures Contact Contact Closed Diagnostic Diagnoses petic Chip Bo, Radiology Procedures MR HAND LEFT ASCENCION BARGER MD [address] [place] [address] Encounter Details Date Type Department Care Team Description 03/27/2020 Hospital Encounter [facility] Chip Albarado Cancel ed (AMB - Magnetic Resonance ERROR) Imaging - [facility] [address] [place] [address] [phone] Allergies No Known Allergiesdocumented as of this [...] Added automatically from request for justo mendiolay [id number] Shortness of breath 03/28/2019 Pulmonary edema 03/27/2019 Acute on chronic diastolic congestive heart failure Essential hypertension 03/27/2019 Type 2 diabetes mellitus without complication, without long-term current 03/27/2019 use of insulin ESRD (end stage renal disease) 02/21/2019 Overview: Added automatically from request for justo mendiolay [id number] End stage chronic kidney disease 10/01/2018 Overview: Added automatically from request for justo mendiolay [id number] Pain management 09/19/2018 Port-site hernia 09/15/2018 Renal mass, right 09/10/2018 Malignant neoplasm of right kidney 08/23/2018 Overview: Added automatically from request for justo mendiolay [id number] HCV antibody positive 06/22/2018 Positive 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 06/22/2018 Avascular necrosis of lunate 05/21/2018 Overview: Added automatically from request for justo wagner [id number] H/O rheumatoid arthritis 05/01/2018 Immunization counseling 05/01/2018 [...] Office Visit Orthopedic Surgery Heri Albarado MD [address] [place] [address] [phone] Name Type Priority Associated Diagnoses Date/Ti me [...] of this encounter Implants Implanted Type Area General Intern Device Shelf Model / Identifier Expiration Serial / Date Lot Knee KNEE Knee Plate PLATE Neck Plate Narrow 5 Hole [employer] Ref#[id number] PLATE Right: [employer] [place] 2511-05-2 / Implanted: Qty: 1 on 05/31/2018 by Chip Philippe ace, MD at [facility] [employer] [place] 2511-0 5-2 / [place] 2511-05 -2 Screw SCREW Neck Screw 2.5 Cortical [employer] Ref#[id number] SCREW Right: [employer] [id number] / Implanted: Qty: 1 on 05/31/2018 by Chip Philippe ace, MD at [facility] [employer] AT8252-16 -2 / [id number]- 2 Screw 2.5 Cortical [employer] Ref#[id number] SCREW Right: [employer] [id number] / Implanted: Qty: 3 on 05/31/2018 by Chip Philippe ace, MD at [facility] [employer] HJ7175-46 -2 / [id number]- 2 Screw 2.5 Cortical [employer] Ref#[id number] SCREW Right: [employer] [id number] / Implanted: Qty: 3 on 05/31/2018 by Chip Philippe ace, MD at [facility] [employer] RW1887-72 -2 / [id number]- 2 Screw 2.5 Cortical [employer] Ref#[id number] SCREW Right: [employer] [id number] / Implanted: Qty: 2 on 05/31/2018 by Chip Philippe ace, MD at [facility] [employer] HZ4059-30 -2 / [id number]- 2 Screw 2.5 Cortical [employer] Ref#[id number] SCREW Right: [employer] [id number] / Implanted: Qty: 2 on 05/31/2018 by Chip Philippe ace, MD at [facility] GY8621-84 / [id number] Kwirwe 1.4 Ref#[id number] WIRE Right: [employer] [id number] / Implanted: Qty: 1 on 05/31/2018 by Chip Philippe ace, MD at [facility] 0 / 0 documented as of this encounter Procedures Procedure Name Priority Date/Time Associated Diagnosis Comme nts MR HAND LEFT WO JUAN 03/27/2020 11:32 AM CDT Herpetic whitl ow CONTRAST Procedure Note - [facility] nt Results Inft User - 03/27/2020 12:02 PM CDT documented in this encounter Results Not on filedocumented in this encounter Visit Diagnoses Diagnosis Herpetic nimo documented in this encounter Insurance Payer Benefit Plan Subscriber ID Effective Phone Address Typ e / Group Dates MEDICARE MEDICARE PART xxxxxxxxxxx 2019-Prese [phone] Medicare A & B nt [id number] [place] [id number] [facility] xxxxxxxxx 2020-Prese Medic aid HEALTHCARE COMM STAR PLUS nt PLAN - MANAGED MEDICAID documented as of this encounter Advance Directives Name Relationship Healthcare Agent Communication Relationship Bridgette Lima Spouse Primary healthcare agent Ryan (Mobile) [email or web address]
--- OUTSIDE RECORDS SUMMARY | 2020-04-10 11:33 | XMS REPORT | Summary of Care ---
:1970 Author Organization [facility] Address [address] [place] [id number] Care Team Providers Name Role Phone Vicente Hussein Insurance [employer] Antolin Braun Primary Care Provider Sarabjit Roca DO [employer] Reason for Visit Reason Comments Pain Encounter Details Date Type Department Care Team Description 03/27/2020 Telephone [facility] Orthopaedic Chip Albarado MD Pain Surgery- [address] [address] [facility] [address] [place], [place] [phone] Allergies No Known Allergiesdocumented as of this encounter (statuses as of 04/01/2020) Medications Medication Sig Dispensed Refills Start Date [...] 11 01/28/2019 Active hr tablet mouth daily. calcium acetate 667 mg TAKE 1 CAPSULE 0 08/28/2019 Active capsule BY MOUTH THREE TIMES DAILY WITH MEAL.ALSO TAKE 1 CAPSULE BY MOUTH TWICE DAILY WITH SNACK valACYclovir (VALTREX) Take 1 tablet by 20 tablet 0 03/25/2020 04/04/2020 Active 500 mg mouth 2 (two) tabletIndications: times daily for Herpetic nimo 10 days. documented as of this encounter (statuses as of 04/01/2020) Active Problems Problem Noted Date Cellulitis 03/28/2020 Hyperkalemia 02/25/2020 Chest pain 11/19/2019 Immature arteriovenous fistula 08/05/2019 Overview: Added automatically from request for justo wagner [id number] Shortness of breath 03/28/2019 Pulmonary edema 03/27/2019 Acute on chronic diastolic congestive heart failure Essential hypertension 03/27/2019 Type 2 diabetes mellitus without complication, without long-term current 03/27/2019 use of insulin ESRD (end stage renal disease) 02/21/2019 Overview: Added automatically from request for justo wagner [id number] End stage chronic kidney disease 10/01/2018 Overview: Added automatically from request for justo wagner [id number] Pain management 09/19/2018 Port-site hernia 09/15/2018 Renal mass, right 09/10/2018 Malignant neoplasm of right kidney 08/23/2018 Overview: Added automatically from request for justo wagner [id number] HCV antibody positive 06/22/2018 Positive 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 06/22/2018 Avascular necrosis of lunate 05/21/2018 Overview: Added automatically from request for justo wagner [id number] H/O rheumatoid arthritis 05/01/2018 Immunization counseling 05/01/2018 [...] as of this encounter (statuses as of 04/01/2020) Immunizations Name Administration Dates Next Due Influenza [...] Office Visit Orthopedic Surgery Heri Albarado MD [address] [place] [address] Health Maintenance Due Date Last Done Comments EYE EXAM 1978 DTaP,Tdap,and Td Vaccines (1 - 1979 Tdap) COLONOSCOPY 2018 Zoster Recombinant Vaccine 2018 (SHINGRIX) (1 of 2) PNEUMOCOCCAL 0-64 YEARS COMBINED 01/07/2019 01/07/2018 SERIES (2 of 3 - PCV13) LDL-C 06/26/2019 06/26/2018 FOOT EXAM 06/27/2019 06/27/2018 INFLUENZA VACCINE (Season Ended) 2020 09/12/2018, 02/2018 HgA1C 09/27/2020 03/27/2020, 11/19/2019, 03/30/2019, Additional history exists CREATININE (SERUM) 03/28/2021 03/28/2020, 03/27/2020, 02/26/2020, Additional history exists documented as of this encounter Implants Implanted Type Area Mobile Sales Consultant Device Shelf Model / Identifier Expiration Serial / Date Lot Knee KNEE Knee Plate PLATE Neck Plate Narrow 5 Hole [employer] Ref#[id number] PLATE Right: [employer] [place] 2511-05-2 / Implanted: Qty: 1 on 05/31/2018 by Chip Philippe ace, MD at [facility] [employer] [place] 2511-0 5-2 / [place] 2511-05 -2 Screw SCREW Neck Screw 2.5 [employer] Ref#[id number] SCREW Right: [employer] [id number] / Implanted: Qty: 1 on 05/31/2018 by Chip Philippe ace, MD at [facility] [employer] [id number] -2 / [id number] 2 Screw 2.5 [employer] Ref#[id number] SCREW Right: [employer] [id number] / Implanted: Qty: 3 on 05/31/2018 by Chip Philippe ace, MD at [facility] [employer] [id number] -2 / [id number]- 2 Screw 2.5 [employer] Ref#[id number] SCREW Right: [employer] [id number] / Implanted: Qty: 3 on 05/31/2018 by Chip Philippe ace, MD at [facility] [employer] [id number] -2 / [id number] 2 Screw 2.5 [employer] Ref#[id number] SCREW Right: [employer] [id number] / Implanted: Qty: 2 on 05/31/2018 by Chip Philippe ace, MD at [facility] [employer] [id number] -2 / [id number] Screw 2.5 [employer] Ref#[id number] SCREW Right: [employer] [id number] / Implanted: Qty: 2 on 05/31/2018 by Chip Philippe ace, MD at [facility] [employer] [id number] / [id number] Kwirwe 1.4 Ref#[id number] WIRE Right: [employer] [id number] / Implanted: Qty: 1 on 05/31/2018 by Chip Philippe ace, MD at [facility] [employer] 0 / 0 documented as of this encounter Results Not on filedocumented in this encounter Insurance Payer Benefit Plan Subscriber ID Effective Phone Address Typ e / Group Dates MEDICARE MEDICARE PART xxxxxxxxxxx 2019-Leonor [phone] Medicare A & B nt [id number] [place] [id number] [facility] xxxxxxxxx 2020-Leonor Medic aid HEALTHCARE COMM STAR PLUS nt PLAN - MANAGED MEDICAID documented as of this encounter Advance Directives Name Relationship Healthcare Agent Communication Relationship Bridgette Lima Spouse Primary healthcare agent Ryan (Mobile) [email or web address] [email or web address]
--- OUTSIDE RECORDS SUMMARY | 2020-04-10 11:33 | XMS REPORT | Summary of Care ---
:1970 Author Organization [facility] Address [address] [place] [address] Care Team Providers Name Role Phone Vicente Hussein Insurance Hmo Antolin Adkins Primary Care Provider Sarabjit Roca DO Hand Pleater Reason for Referral Other (Routine) Status Reason Specialty Diagnoses / Referred By Referred To Procedures Contact Contact New Request Diagnoses Finger infection Mateus Otoole MD Faillace, John, MD Procedures Discharge Follow-up: Specialty Provider JEMAL ALBARADO; 3-5 Days [address] [facility] [address] [facility] [address] [place], [place] Phone: [phone] Phone: Fax: (Routine) Status Reason Specialty Diagnoses / Referred By Referred To Procedures Contact Contact New Request Diagnoses Finger infection Mateus Otoole MD Killam, Ronald Procedures Discharge Follow-up: PCP ROSMERY ADKINS; 1 Week [address] [place] [address] [facility] [address] [address] Phone: [place], [place] [phone] Fax: Reason for Visit Reason Comments Finger Pain Auth/Cert Status Reason Specialty Diagnoses / Referred By Referred To Procedures Contact Contact Emergency Medicine Ad[facility] Em ergency Dept [address] [facility] [place] [address] Fax: Encounter Details Date Type Department Care Team Description 03/27/2020 - Hospital Encounter [facility] Medicine Surgery Deven Pitt MD [address] [facility] [id number] [place] [address] Cellulitis 03/29/2020 Unit Jenn Echols MD [address] [facility] [address] [place] [address] [place] [address] Eugene Hernandez MD [address] [place] [address] [place] [address] Allergies No Known Allergiesdocumented as of this encounter (statuses as of 03/29/2020) Medications Medication Sig Dispensed Refills Start Date End Date Status lisinopril 30 mg Take 30 mg 0 Ac tive tablet by mouth daily. metoprolol Take 50 mg 0 Active tartrate 50 mg by mouth 2 tablet (two) times daily. cloniDINE 0.1 mg Take 0.1 mg 0 A ctive tablet by mouth 3 (three) times daily as needed. NIFEdipine XL 90 Take 90 mg 11 01/28/2019 A ctive mg 24 hr tablet by mouth daily. calcium acetate TAKE 1 0 08/28/2019 Act doris 667 mg capsule CAPSULE BY MOUTH THREE TIMES DAILY WITH MEAL.ALSO TAKE 1 CAPSULE BY MOUTH TWICE DAILY WITH SNACK valACYclovir Take 1 20 tablet 0 03/25/2020 Active (VALTREX) 500 mg tablet by 0 tabletIndications: mouth 2 Herpetic nimo (two) times daily for 10 days. doxazosin 2 mg Take 1 60 tablet 0 03/29/2020 Acti ve tabletIndications: tablet by 0 Essential mouth 2 hypertension (two) times daily for 30 days. oxyCODONE CR 30 mg Take 30 mg 20 tablet 0 03/29/2020 Active [id number]: by mouth Pain management every 12 (twelve) hours. doxycycline Take 1 20 capsule 0 03/29/2020 Active hyclate 100 mg capsule by 0 capsuleIndications mouth every : Finger infection 12 (twelve) hours for 10 days. HYDROcodone-acetam TK 1 T PO 0 08/30/2019 Discontinued inophen 10-325 mg TID PRF NECK 0 tablet PAIN doxycycline Take 100 mg 0 Discon tinued hyclate 100 mg by mouth 0 (Reor jane) capsule every 12 (twelve) hours. amoxicillin-pot Take 1 30 tablet 0 03/25/2020 Dis continued clavulanate 500 mg tablet by 0 (AUGMENTIN) mouth 3 500-125 mg (three) tabletIndications: times daily Herpetic nimo for 10 days. documented as of this encounter (statuses as of 03/29/2020) Active Problems Problem Noted Date Cellulitis 03/28/2020 Hyperkalemia 02/25/2020 Chest pain 11/19/2019 Immature arteriovenous fistula 08/05/2019 Overview: Added automatically from request for justo wagner [id number] Shortness of breath 03/28/2019 Pulmonary edema 03/27/2019 Acute on chronic diastolic congestive heart failure Essential hypertension 03/27/2019 Type 2 diabetes mellitus without complication, without long-term current 03/27/2019 use of insulin ESRD (end stage renal disease) 02/21/2019 Overview: Added automatically from request for justo wagner [id number] End stage chronic kidney disease 10/01/2018 Overview: Added automatically from request for justo wagner [id number] Pain management 09/19/2018 Port-site hernia 09/15/2018 Renal mass, right 09/10/2018 Malignant neoplasm of right kidney 08/23/2018 Overview: Added automatically from request for justo wagner [id number] HCV antibody positive 06/22/2018 Positive 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 06/22/2018 Avascular necrosis of lunate 05/21/2018 Overview: Added automatically from request for justo wagner [id number] H/O rheumatoid arthritis 05/01/2018 Immunization counseling 05/01/2018 [...] as of this encounter (statuses as of 03/29/2020) Immunizations Name Administration Dates Next Due Influenza Virus Vaccine Quad .5 mL IM 6+ MO 09/12/2018 Influenza Virus Vaccine Quad IM 3+ YRS 01/07/2018 Pneumococcal Polysaccharide, PPSV23 (PNEUMOVAX) 01/07/2018 documented as of this encounter Social History Tobacco Use Types Packs/Day Years Used Date Current Every Day Smoker Smokeless Tobacco: Never Used Tobacco Cessation: Ready to Quit: No; Co unseling Given: Yes Comments: maravishal daily Alcohol Use Drinks/Week oz/Week Comments No [...] Sign Reading Time Taken Comments Blood Pressure 134/78 03/29/2020 11:25 AM CDT Pulse 72 03/29/2020 11:25 AM CDT Temperature 36.3 C (97.3 F) 03/29/2020 11:25 AM CDT Respiratory Rate 18 03/29/2020 11:25 AM CDT Oxygen Saturation 96% 03/29/2020 11:25 AM CDT Inhaled Oxygen Concentration - - Weight 99.9 kg (220 lb 3.2 oz) 03/29/2020 9:11 AM CDT Height 177.8 cm (5' 10") 03/27/2020 9:44 PM CDT Body Mass Index 31.6 03/27/2020 9:44 PM CDT documented in this encounter Discharge Summaries Mateus Otoole MD - 03/29/2020 2:14 PM CDT Hospital Medicine Discharge Summary PATIENT NAME: Vladimir Maguire : 1970 AGE: [age] year old PRIMARY CARE PHYSICIAN: Rosmery Adkins ADMITTING PHYSICIAN: Eugene Echols MD DISCHARGE PHYSICIAN: Mateus Otoole MD ADMISSION DATE: 03/27/2020 DISCHARGE DATE: 03/29/2020 DISCHARGE DIAGNOSES: Active Problems: Cellulitis HPI 49 y/o male, chronic issues of esrd (jazmin/kaitlyn/sherie - Dr. Roac), dm2 (diet controlled currently), htn, dyslipid, gout, chronic pain syndrome/neck, gout, hep C who presents due to left ring finger pain/swelling. States that 2 week ago he accidentally hit his finger on a hammer in which sub caused increase pain/swelling he had seen ortho- hand (Dr. Albarado, he had finger explor in in the office withno drainage or purulence was identified) in which was though possible flexor tenosynovitis vs herpetic nimo (valtrex), he did not have any erythema however he was given empiric Augmentin for cover for possible subclinical infection and had MRI done yesterday. He states has been taking x 2 day without any improved, with worsening swelling/pain and noted purulent drainage from side of nail, also states had streaky erythema extending up his forearm. He has f/u with ortho-hand on 04/01. Denied any fever/shaking chills. In ER received x 1 vanco/zosyn. MRI report completed but not reported, ER discussed with radiology - no drainable collection noted. HOSPITAL COURSE: 49 y/o male, chronic issues of esrd (jazmin/kaitlyn/sherie - Dr. Roca), dm2 (diet controlled currently), htn, dyslipid, gout, chronic pain syndrome/neck, gout, hep C who presented due to left ring finger pain/swelling. Had trauma to left 4th finger 2 weeks ago. Was seen by hand surgery on 03/25/2020 as outpatient and was sent home with Augmentin and valtrex. Patient was admitted for intractable pain in thefinger and possible uncontrolled infection. MRI left hand done DROP PRESS HAND showed no abscess or evidence of bone infection. He was treated with iv doxycycline and zosyn during this stay. Valtrex was continued.Pain control provided. Hand surgery and ID were consulted over the phone. Patient was cleared by hand surgery and ID for discharge. Per ID, d/c Augmentin and give doxycycline for 10 days. The patient will seen Dr. Albarado on the coming Monday. Patient has been on pain medication chronically. He requested oxycodone on discharge for intractablepain. Risk and side effects of narcotics were explained to the patient, who verbalized understanding. Called and updated patient's Bridgette prior to discharge. All of her questions were answered to her satisfaction. REVIEW OF SYSTEMS: General: (-) fever, (-) chills, (-) weight loss, (-) weight gain, (-) fatigue, (-) malaise Skin: (-) rash, (-) lesion HEENT: (-) headache, (-) change in hearing, (-) change in vision, (-) nasal discharge, (-) sore throat Neck: (-) pain, (-) difficulty swallowing, (-) mass Heme: (-) bleeding disorder Resp: (-) cough, (-) shortness of breath, (-) dyspnea on exertion Cardio: (-) chest pain, (-) palpitations, (-) syncope GI: (-) abdominal pain, (-) nausea, (-) vomiting, (-) diarrhea, (-) constipation, (-) melena, (-) hematochezia, (-) hematemesis : (-) dysuria, (-) hematuria, (-) increased frequency, (-) difficulty urinating, (-) difficulty initiating Endo: (-) heat intolerance, (-) cold intolerance, (-) polyuria, (-) polydipsia Neuro: (-) numbness, (-) tingling, (-) weakness Back: (-) pain, (-)spasms BILLY: (-) muscle pain, (-) joint pain, (-) claudication, (+) pain in left 4th finger Psych: (-) anxiety, (-) depression, (-) psychiatric disorder DISCHARGE PHYSICAL EXAM: Most recent vital signs: Temp: 36.3 C (97.3 F) - BP: 134/78 - Pulse: 72 - Resp: 18 - SpO2: 96 % General: alert and oriented x 4 (person, place, date/time and situation); no apparent distress HEENT: pupils equal, round, reactive to light; extraocular movements intact; oropharynx clear; moistmucous membranes Neck: supple, no lymphadenopathy, no bruits, no JVD Lungs: clear to auscultation bilaterally Cardio: S1, S2 normal; no murmurs, rubs or gallops Abdomen: soft; non-tender; non-distended; normoactive bowel sounds Extremities: no clubbing or cyanosis. Left hand ring finger prominent TTP, mild swelling, no obviouserythema or drainage noted. Skin: no rashes Neuro: cranial nerves II through XII grossly intact; sensation grossly intact; muscle strength 5 outof 5 in all four extremities, no focal deficits, alert and oriented x 3 CONSULTS: Hand surgery ID PROCEDURES: None LABS PENDING: None DIET: renal, diabetic ACTIVITY: as tolerated MEDS: Current Discharge Medication List START taking these medications Details doxazosin (CARDURA) 2 mg Take 2 mg by mouth 2 (two) times daily. Qty: 60 tablet, Refills: 0 Start date: 03/29/2020, End date: 04/28/2020 Associated Diagnoses: Essential hypertension oxyCODONE (OXYCONTIN) 30 mg Take 30 mg by mouth every 12 (twelve) hours. Qty: 20 tablet, Refills: 0 Start date: 03/29/2020 Associated Diagnoses: Pain management CONTINUE these medications which have CHANGED Details doxycycline hyclate (Vibramycin) 100 mg Take 100 mg by mouth every 12 (twelve) hours. Qty: 20 capsule, Refills: 0 Start date: 03/29/2020, End date: 04/08/2020 Associated Diagnoses: Finger infection CONTINUE these medications which have NOT CHANGED Details valACYclovir (VALTREX) 500 mg Take 500 mg by mouth 2 (two) times daily. Qty: 20 tablet, Refills: 0 Associated Diagnoses: Herpetic nimo calcium acetate 667 mg capsule TAKE 1 CAPSULE BY MOUTH THREE TIMES DAILY WITH MEAL.ALSO TAKE 1 CAPSULE BY MOUTH TWICE DAILY WITH SNACK NIFEdipine XL (PROCARDIA XL) 90 mg Take 90 mg by mouth daily. Refills: 11 cloNIDine (CATAPRES) 0.1 mg Take 0.1 mg by mouth 3 (three) times daily as needed. lisinopril (PRINIVIL,ZESTRIL) 30 mg Take 30 mg by mouth daily. metoprolol tartrate (LOPRESSOR) 50 mg Take 50 mg by mouth 2 (two) times daily. STOP taking these medications amoxicillin-pot clavulanate 500 mg (AUGMENTIN 500) 500 mg Comments: Reason for Stopping: HYDROcodone-acetaminophen 10-325 mg tablet Comments: Reason for Stopping: SIGNIFICANT LAB/X-RAYS: Lab results: CBC BMP PT/INR WBC (10*3/L) Date Value 03/27/2020 6.97 NA (mmol/L) Date Value 03/28/2020 135 No results found for: PT RBC (10*6/L) Date Value 03/27/2020 4.09 (L) K (mmol/L) Date Value 03/28/2020 4.5 INR (no units) Date Value 11/19/2019 1.0 PLT (10*3/L) Date Value 03/27/2020 145 (L) CALCIUM (mg/dL) Date Value 03/28/2020 8.5 (L) HGB (g/dL) Date Value 03/27/2020 11.1 (L) CL (mmol/L) Date Value 03/28/2020 95 (L) aPTT HCT (%) Date Value 03/27/2020 35.2 (L) BUN (mg/dL) Date Value 03/28/2020 40 (H) APTT Patient (Seconds) Date Value 11/19/2019 29 CREATININE (mg/dL) Date Value 03/28/2020 9.68 (H) GLUCOSE (mg/dL) Date Value 03/28/2020 75 CO2 TOTAL (mmol/L) Date Value 03/28/2020 26 Imaging results: Mr Hand Left Wo Contrast Result Date: 03/28/2020 Normal appearance of the flexor tendons. Mild second through fifth extensor tenosynovitis. Diffuse mild subcutaneous edema, more prominent dorsally at the fourth MCP joint. Osteoarthrosis. Xr Hand 3+ Vw Left Result Date: 03/25/2020 No acute bony abnormality. Mild osteoarthrosis. DISPOSITION: home CONDITION: Good FOLLOW-UP: PCP Hand surgery on the coming monday Nephrology for HD I spent 50 minutes including a [id number] visit, discussing the plan of care with the patient, patient education regarding medication compliance, exam, and coordination of discharge Electronically Signed by: Mateus Otoole MD 03/29/2020 2:14 PM documented in this encounter Discharge Instructions InstructionsDeven Pitt MD - 03/28/2020 AttachmentsThe following attachments cannot be sent through Care Everywhere. Cellulitis, Discharge Instructions for ([place]ao [place]an)Oxycodone tablets or capsules ([place]an)Doxazosin tablets ([place]an)documented in this encounter Progress Notes Mateus Otoole MD - 03/28/2020 7:11 PM CDTDiscussed with the patient's hand surgeon Dr. Albarado over the phone. MRI result reviewed. No indication for surgical intervention at this point per Dr. Albarado. Will continue abx, valtrex, and pain control. Consult ID. documented in this encounter Plan of Treatment Date Type Specialty Care Team Description 04/01/2020 Office Visit Orthopedic Surgery Heri Albarado MD [address] [place] [address] [phone] Name Type Priority Associated Diagnoses Date/Ti me BLOOD CULTURE SCREEN LAB STAT Cellulitis of left h and 03/27/2020 11:13 PM CDT BLOOD CULTURE SCREEN LAB STAT Cellulitis of left h and 03/27/2020 11:13 PM CDT Health Maintenance Due Date Last Done Comments [...] of this encounter Implants Implanted Type Area Budget Director Device Shelf Model / Identifier Expiration Serial / Date Lot Knee KNEE Knee Plate PLATE Neck Plate Narrow 5 Hole [employer] Ref#[id number] PLATE Right: [employer] [place] 2511-05-2 / Implanted: Qty: 1 on 05/31/2018 by Jemal Philippe ace, MD at [facility] [employer] [place] 2511-0 5-2 / [place] 2511- - Screw SCREW Neck Screw 2.5 Cortical [employer] Ref#[id number] SCREW Right: [employer] [id number] / Implanted: Qty: 1 on 05/31/2018 by Jemal Philippe ace, MD at [facility] [employer] [id number] -[id number] / [id number] Screw 2.5 Cortical [employer] Ref#[id number] SCREW Right: [employer] [id number] / Implanted: Qty: 3 on 05/31/2018 by Jemal Philippe ace, MD at [facility] [employer] [id number] / [id number] Screw 2.5 [employer]ical [employer] Ref#[id number] SCREW Right: [employer] [id number] / Implanted: Qty: 3 on 05/31/2018 by Jemal Philippe ace, MD at [facility] [employer] [id number] -[id number] / [id number] Screw 2.5 [employer]ical [employer] Ref#[id number] SCREW Right: [employer] [id number] / Implanted: Qty: 2 on 05/31/2018 by Jemal Philippe ace, MD at [facility] [employer] [id number] -[id number] / [id number] Screw 2.5 [employer]ical [employer] Ref#[id number] SCREW Right: [employer] [id number] / Implanted: Qty: 2 on 05/31/2018 by Jemal Philpipe ace, MD at [facility] [employer] [id number] / [id number] Kwirwe 1.4 Ref#[id number] WIRE Right: [employer] [id number] / Implanted: Qty: 1 on 05/31/2018 by Jemal Philippe ace, MD at [facility] [employer] 0 / 0 documented as of this encounter Procedures Procedure Name Priority Date/Time Associated Comments Diagnosis PROCALCITONIN Routine 03/28/2020 4:23 Results fo r this AM CDT procedure are i n the results section. SEDIMENTATION RATE Routine 03/28/2020 4:23 Resul ts for this AM CDT procedure are i n the results section. BASIC METABOLIC PANEL Routine 03/28/2020 4:23 Re sults for this (NA, K, CL, CO2, AM CDT procedure a re in GLUCOSE, BUN, the results CREATININE, CA) section. COVID-19 (ID NOW STAT 03/28/2020 1:17 Cellulitis of left R esults for this RAPID TESTING) AM CDT hand procedure are in the results section. CBC WITH DIFFERENTIAL STAT 03/27/2020 11:13 Cellulitis of l eft Results for this PM CDT hand procedure are i n the results section. GLYCOSYLATED STAT Add-On 03/27/2020 11:13 Results for this HEMOGLOBIN (A1C) PM CDT procedure a re in the results section. CBC WITH DIFFERENTIAL STAT 03/27/2020 11:13 Cellulitis of l eft Results for this PM CDT hand procedure are i n the results section. COMP. METABOLIC PANEL STAT 03/27/2020 11:13 Cellulitis of l eft Results for this (95726) PM CDT hand procedure are i n the results section. documented in this encounter Results PROCALCITONIN (03/28/2020 4:23 AM CDT) Pathologist Sig nature Procalcitonin 0.18 (H) <0.07 ng/mL [facility] Specimen Blood - ARM, RIGHT Narrative Performed At INTERPRETATION OF PROCALCITONIN RESULTS IN ADULTS >= 1 8 [facility] YEARS OF AGE Initiation and discontinuation of antibiotics on patie nts with suspected or confirmed Lower Respiratory Tract Infection in Adults >= 18 years of age. + + + +----- ------ + |Procalcitonin |Interpretation |Antibiotic |Considerations |ng/mL | |recommend ation | + + + +----- ------ + | <0.1 | Bacterial | Strongly | | | infection very | discouraged | Overruling: | | unlikely | | Clinically unstable + + + + H igh risk for adverse | <0.25 | Bacterial | Discouraged | outcome | | infection | | SEE IMPORTANT NOTE | | unlikely | | + + + +----- ------ + | >=0.25 | Bacterial | Encouraged | | | infection | | | | likely | | Consider treatment failure + + + + if l evels does not decrease | >0.5 | Bacterial | Strongly | appropriately | | infection very | encouraged | | | likely | | + + + +----- ------ + Discontinuation of antibiotics in high-acuity patients with suspected or confirmed sepsis in Adults >= 18 years of age. + + + +----- ------ + |Procalcitonin |Interpretation |Antibiotic |Considerations |ng/mL | |recommend ation | + + + +----- ------ + | <0.25 | Bacterial | Strongly | | | infection very | discouraged | Overruling: | | unlikely | | Clinically unstable + + + + H igh risk for adverse | <0.5 or drop | Bacterial | Discouraged | outcome | >80% from | infection | | SEE IMPORTANT NOTE | highest PCT | unlikely | | | level | | | + + + +----- ------ + | >=0.5 | Bacterial | Encouraged | | | infection | | | | likely | | Consider treatment failure + + + + if l evels does not decrease | >1.0 | Bacterial | Strongly | appropriately | | infection very | encouraged | | | likely | | + + + +----- ------ + Percentage of drop of Procalcitonin calculation for Discontinuation of antibiotics in high-acuity patients with suspected or confirmed sepsis in Adults >= 18 years of age. Procalcitonin highest{}-Procalcitonin current{} Delta Procalcitonin = x100% Procalcitonin current {} IMPORTANT NOTE: Procalcitonin may be elevated without bacterial infection by physiologic stress related to t rauma, pena, chronic dialysis, metastatic cancer, surgery in the past seven days, malaria, some fungal infections, and some forms of vasculitis. The interpretation algorithm may not apply to patients with immunosuppression (equivalent o f >10 mg of prednisone daily), HIV with CD4 cell count < 350 cells/mm3, active malignancy on systemic chemotherapy, solid organ transplant or [facility], or hospital acquired pneumonia. Additionally, some cli nical trials of procalcitonin have excluded patients with sh ock requiring vasopressor use, acute respiratory failure requiring mechanical ventilation, or those with known lung abscess/empyema. For further information please refer to: [email or web address] Performing Organization Address City/[facility]/Zipcode Phone Number [facility] CLIA: [id number], [address] [place], [place] [address] [facility] SEDIMENTATION RATE (03/28/2020 4:23 AM CDT) Pathologist [facility] nature ESR 14 (H) 0 - 10 mm/HR [facility] Specimen Blood - ARM, RIGHT Performing Organization Address City/[facility]/Zipcode Phone Number [facility] CLIA: [id number], [address] [place], [place] [address] Basic Metabolic Panel (NA, K, CL, CO2, GLUCOSE, BUN, CREATININE, CA) (03/28/2020 4:23 AM CDT) NA 135 135 - 145 [facility] mmol/L [facility] K 4.5 3.5 - 5.0 [facility] mmol/L [facility] CL 95 (L) 98 - 108 mmol/L [facility] CO2 TOTAL 26 23 - 31 mmol/L [facility] AGAP 14 2 - 16 [facility] BUN 40 (H) 7 - 23 mg/dL [facility] GLUCOSE 75 70 - 110 mg/dL [facility] CREATININE 9.68 (H) 0.60 - 1.25 [facility] mg/dL [facility] CALCIUM 8.5 (L) 8.6 - 10.6 [facility] mg/dL [facility] eGFR Calculation 5.7 mL/min/1.73m2 [facility] (Non-[facility] LABORATORY [place]) eGFR Calculation 7.0 mL/min/1.73m2 [facility] () [facility] Specimen Blood - ARM, RIGHT Narrative Performed At Association of Glomerular Filtration Rate (GFR) [facility] and Staging of Kidney Disease* [...] tests). Performing Organization Address City/State/Zipcode Phone Number [facility] CLIA: [id number], [address] [place], [place] [address] COVID-19 (ID NOW RAPID TESTING) (03/28/2020 1:17 AM CDT) SARS-CoV-2 Rapid ID Not Detected Not Detected [facility] Specimen Swab - NASOPHARYNGEAL SWAB Narrative Performed At [facility] COVID-19 Assay is an isothermal nucleic [facility] acid amplification test intended for the qualitative detection of nucleic acid from SARS-CoV-2 viral RNA in nasopharyngeal (TRAIN ELECTRONIC TECHNICIAN) specimens. It is used under Emergency Use Authorization (EUA) by FDA. The limit of detection (LOD) of the assay is 125 Genome Equivalents/mL. A positive result is indicative of the presence of SARS-CoV-2 RNA. Clinical correlation with patient history and other diagnostic information is necessary to determine patient infection status. A negative (Not Detected) result does not preclude SARS-CoV-2 infection. In patients with clinical symptoms and other tests that are consistent with SARS-CoV-2 infection, negative results should be treated as presumptive negative and a new specimen should be tested with alternative PCR molecular test. Invalid: Please collect a new specimen for repeat patient testing if clinically indicated. Performing Organization Address City/[facility] Phone Number [facility] CLIA: [id number], [address] [place] [address] GLYCOSYLATED HEMOGLOBIN (A1C) (03/27/2020 11:13 PM CDT) [facility] judah HGB A1C 4.8 4.0 - 6.0 % NGSP [facility] Specimen Blood - VENOUS Narrative Performed At %A1C (NGSP) Interpretation (ADA) [facility] 4.8-5.6 Normal or (Non-Diabetic Ra nge) 5.7-6.4 Increased Risk (Pre-Diabet ic) >6.5 Diabetes Indicated Performing Organization Address City/[facility] Phone Number [facility] CLIA: [id number], [address] CBC WITH DIFFERENTIAL (03/27/2020 11:13 PM CDT) [facility] judah WBC 6.97 4.20 - 10.70 [facility] 10*3/L HOSPITAL LABORATORY RBC 4.09 (L) 4.26 - 5.52 [facility] 10*6/L [facility] LABORATORY HGB 11.1 (L) 12.2 - 16.4 [facility] g/dL HOSPITAL LABORATORY HCT 35.2 (L) 38.4 - 49.3 % [facility] MCV 86.1 81.7 - 95.6 fL [facility] MCH 27.1 26.1 - 32.7 pg [facility] MCHC 31.5 31.2 - 35.0 [facility] g/dL [facility] LABORAT[facility] RDW-SD 45.5 38.5 - 51.6 fL [facility] RDW-CV 14.4 12.1 - 15.4 % [facility] PLT 145 (L) 150 - 328 [facility] 10*3/L [facility] LABORAT[facility] MPV 9.5 (L) 9.8 - 13.0 fL [facility] NRBC/100 WBC 0.0 0.0 - 10.0 /100 [facility] WBCs [facility] LABORATORY NRBC x10^3 <0.01 10*3/L [facility] GRAN MAT (NEUT) % 64.6 % [facility] IMM GRAN % 0.30 % [facility] LYMPH % 20.4 % [facility] MONO % 9.9 % [facility] EOS % 4.2 % [facility] BASO % 0.6 % [facility] GRAN MAT x10^3(ANC) 4.51 1.99 - 6.95 [facility] 10*3/uL HOSPITAL LABORATORY IMM GRAN x10^3 <0.03 0.00 - 0.06 [facility] 10*3/uL HOSPITAL LAB[facility]ORY LYMPH x10^3 1.42 1.09 - 3.23 [facility] 10*3/uL HOS[facility]ITAL LAB[facility]ORY MONO x10^3 0.69 0.36 - 1.02 [facility] 10*3/uL HOSPITAL LAB[facility]ATORY EOS x10^3 0.29 0.06 - 0.53 [facility] 10*3/uL HOS[facility]ITAL LAB[facility]ORY BASO x10^3 0.04 0.01 - 0.09 [facility] 10*3/uL HOSPITAL LABORATORY Specimen Blood - VENOUS Performing Organization Address City/State/Zipcode Phone Number [facility] CLIA: [id number], [address] [address] [address] [facility] COMP. METABOLIC PANEL ([id number]) (03/27/2020 11:13 PM CDT) NA 137 135 - 145 [facility] mmol/L [facility] LABORAT[facility] K 4.4 3.5 - 5.0 [facility] mmol/L [facility] LAB[facility] CL 93 (L) 98 - 108 mmol/L [facility] CO2 TOTAL 30 23 - 31 mmol/L [facility] AGAP 14 2 - 16 [facility] BUN 38 (H) 7 - 23 mg/dL [facility] GLUCOSE 94 70 - 110 mg/dL [facility] CREATININE 9.31 (H) 0.60 - 1.25 [facility] mg/dL [facility] LABOR[facility] TOTAL BILI 0.5 0.1 - 1.1 mg/dL [facility] CALCIUM 8.6 8.6 - 10.6 [facility] mg/dL [facility] LAB[facility] T PROTEIN 6.4 6.3 - 8.2 g/dL [facility] ALBUMIN 3.8 3.5 - 5.0 g/dL [facility] ALK PHOS 47 34 - 122 U/L [facility] ALTv 10 5 - 50 U/L [facility] AST(SGOT) 18 13 - 40 U/L [facility] eGFR Calculation 6.0 mL/min/1.73m2 [facility] (Non[facility] LABORATORY Prydein[place]) eGFR Calculation 7.3 mL/min/1.73m2 [facility] ([facility]) [facility] LABORATORY Specimen Blood - VENOUS Narrative Performed At Association of Glomerular Filtration Rate (GFR) [facility] LAB[facility]AT[facility] and Staging of Kidney Disease* [...] tests). Performing Organization Address City/State/Zipcode Phone Number [facility] CLIA: [id number], [address] [place], [place] [address] documented in this encounter Visit Diagnoses Diagnosis Cellulitis of left hand - Primary Cellulitis and abscess of hand, except f ingers and thumb ESRD needing dialysis End stage renal disease Anemia of chronic renal failure, unspeci fied CKD stage Suspected 2018 Novel Coronavirus Infecti on Essential hypertension Unspecified essential hypertension Pain management Other specified rehabilitation procedure Finger infection Unspecified local infection of skin and subcutaneous tissue Cellulitis Cellulitis and abscess of unspecified si te documented in this encounter Administered Medications Medication Order MAR Action Action Date Dose Rate Site amLODIPine (NORVASC) tablet 10 mg Given 03/29/2020 8:53 AM CDT 10 mg 10 mg, Oral, DAILY, First dose on 03/28/20 at 0900, Until Discontinued, Routine Given 03/28/2020 9:19 AM CDT 10 mg calcium acetate (PHOSLO) capsule 1,334 m g Given 03/29/2020 12:49 PM CDT 1,334 mg 1,334 mg, Oral, TID MEALS, First dose on 03/28/20 at 0800, Until Discontinued, Routine Given 03/29/2020 8:53 AM CDT 1,334 mg Given 03/28/2020 5:10 PM CDT 1,334 mg cloNIDine (CATAPRES) tablet 0.1 mg Given 03/28/2020 9:19 AM CDT 0.1 mg 0.1 mg, Oral, TIDPRN, Starting 03/28/20 at 0133, Until Discontinued, Routine, sbp > 180 docusate (COLACE) capsule 100 mg Given 03/28/2020 9:19 AM CDT 100 mg 100 mg, Oral, DAILY, First dose on 03/28/20 at 0900, Until Discontinued, Routine doxazosin (CARDURA) tablet 2 mg Given 03/29/2020 8:52 AM CDT 2 mg 2 mg, Oral, BID, First dose on 03/28/20 at 0800, Until Discontinued, Routine Given 03/28/2020 8:21 PM CDT 2 mg Given 03/28/2020 9:20 AM CDT 2 mg doxycycline (VIBRAMYCIN) 100 mg in NaCl 0.9% Given 8:53 AM CDT 100 mg (NS) 100 mL MINI-BAG 100 mg, IV Piggyback, Q12H ABX, First dose on 03/28/20 at 0800, Until Discontinued, 100 mL, Reason for Anti-Infective: Documented Infection, Documented Infection Site: Skin / Soft Tissue, Duration of Therapy: 7 days Given 03/28/2020 8:22 PM CDT 100 mg Given 03/28/2020 9:20 AM CDT 100 mg gabapentin (NEURONTIN) tablet 600 mg Given 03/29/2020 8:53 AM CDT 600 mg 600 mg, Oral, TID, First dose on 03/28/20 at 0800, Until Discontinued, Routine Given 03/28/2020 8:21 PM CDT 600 mg Given 03/28/2020 9:19 AM CDT 600 mg heparin (porcine) injection Given 03/29/2020 8:53 AM CDT 5,000 Units Abdomen-SC 5,000 Units 5,000 Units, Subcutaneous, Q12H, First dose on 03/28/20 at 0800, Until Discontinued, Routine Given 03/28/2020 8:21 PM CDT 5,000 Units Abdo men-SC Given 03/28/2020 9:20 AM CDT 5,000 Units Abdo men-SC hydralAZINE (APRESOLINE) injection 10 mg 10 mg, Intravenous, PRN - SEE INSTRUCTIONS, Starting S at 03/28/20 at 1100, Until Discontinued, Routine, Hypertensive emergency, Hyperte nsion, Q4h for SBP>160 or DBP>100 HYDROcodone-acetaminophen (NORCO) 10-325 mg tablet 1 tablet 1 tablet, Oral, Q6HPRN, Starting Sat 03/07 01/23 at 0140, Until Discontinued, Routine, Pain (scale 4-6) lisinopril (PRINIVIL,ZESTRIL) tablet 20 mg Given 03/29/2020 8:52 AM CDT 20 mg 20 mg, Oral, BID, First dose on 03/28/20 at 0800, Until Discontinued, Routine Given 03/28/2020 8:21 PM CDT 20 mg Given 03/28/2020 9:19 AM CDT 20 mg metoprolol tartrate (LOPRESSOR) tablet 5 0 mg Given 03/29/2020 8:53 AM CDT 50 mg 50 mg, Oral, BID, First dose on 03/28/20 at 0800, Until Discontinued, Routine Given 03/28/2020 8:21 PM CDT 50 mg Given 03/28/2020 9:19 AM CDT 50 mg morpHINE injection 2 mg Given 03/29/2020 12:49 PM CDT 2 mg 2 mg, Slow IV Push, Q2HPRN, Starting 03/29/20 at 0830, Until Discontinued, Routine, Pain (scale 7-10) Given 03/29/2020 10:52 AM CDT 2 mg Given 03/29/2020 8:53 AM CDT 2 mg NIFEdipine ER (AFEDITAB CR) tablet 90 mg Given 03/29/2020 8:52 AM CDT 90 mg 90 mg, Oral, DAILY, First dose on 03/29/20 at 0900, Until Discontinued, Routine omeprazole (PRILOSEC) capsule 40 mg Given 03/29/2020 8:52 AM CDT 40 mg 40 mg, Oral, DAILY, First dose on 03/28/20 at 0900, Until Discontinued, Routine Given 03/28/2020 9:19 AM CDT 40 mg piperacillin-tazobactam (ZOSYN) 2.25 Given 03/29/2020 12:49 PM CDT 2.25 g 100 mL/hr g/50 mL RTU 2.25 g, IV Piggyback, Q12H ABX, First dose on 03/28/20 at 1130, Until Discontinued, 50 mL, Reason for Anti-Infective: Documented Infection, Documented Infection Site: Skin / Soft Tissue, Duration of Therapy: 7 days Given 03/28/2020 10:32 PM CDT 2.25 g 100 mL/hr Given 03/28/2020 12:58 PM CDT 2.25 g 100 mL/hr valACYclovir (VALTREX) tablet 500 mg Given 03/29/2020 8:52 AM CDT 500 mg 500 mg, Oral, BID, First dose on 03/28/20 at 0800, Until Discontinued, JUAN Given 03/28/2020 8:21 PM CDT 500 mg Given 03/28/2020 10:25 AM CDT 500 mg Medication Order MAR Action Action Date Dose Rate Site FENTanyl PF (SUBLIMAZE (PF)) Given 03/27/2020 10:53 PM CDT 50 mc g injection 50 mcg 50 mcg, Slow IV Push, ONCE, 1 dose, Mon03/27/20 at 2345, Routine FENTanyl PF (SUBLIMAZE (PF)) injection 50 Given 03/28/2020 2:06 AM CDT 50 mcg mcg 50 mcg, Slow IV Push, Q4HPRN, Starting 03/28/20 at 0132, Until 03/28/20 at 0316, Routine, Pain (scale 7-10) hydralAZINE (APRESOLINE) injection 20 mg Given 03/28/2020 1:21 AM CDT 20 mg 20 mg, Intravenous, ONCE NOW, 1 dose, 03/28/20 at 0215, Routine ketorolac (TORADOL) injection 15 mg Given 03/29/2020 3:38 AM CDT 15 mg 15 mg, Slow IV Push, ONCE, 1 dose, [place] 03/29/20 at 0345, Routine, membership correspondent approving Restricted medication: EUGENE ECHOLS morpHINE injection 2 mg Given 03/29/2020 7:14 AM CDT 2 mg 2 mg, Slow IV Push, Q4HPRN, Starting 03/28/20 at 0316, Until 03/29/20 at 0821, Routine, Pain (scale 7-10) Given 03/29/2020 2:32 AM CDT 2 mg Given 03/28/2020 10:46 PM CDT 2 mg NIFEdipine XL (PROCARDIA XL) tablet 90 m g Given 03/28/2020 10:24 AM CDT 90 mg 90 mg, Oral, DAILY, First dose on 03/28/20 at 0900, Until Discontinued, Routine ondansetron (ZOFRAN (PF)) injection 4 mg Given 03/27/2020 10:53 PM CDT 4 mg 4 mg, Slow IV Push, ONCE, 1 dose, Mon03/27/20 at 2345, JUAN piperacillin-tazobactam (ZOSYN) 3.375 Given 03/27/2020 10:53 PM CDT 3.375 g gram/50 mL Piggyback RTU 3.375 g 3.375 g, IV Piggyback, ONCE, 1 dose, Mon03/27/20 at 2345, 50 mL, Reason for Anti-Infective: Documented Infection, Documented Infection Site: Skin / Soft Tissue, Duration of Therapy: Other (see Comments) vancomycin 1000 mg in NS 200 mL RTU IV Given 03/27/2020 11:26 PM CDT 1,000 mg Piggyback 1,000 mg 1,000 mg, IV Piggyback, Q12H ABX, First dose on Mon03/27/20 at 2345, Until Discontinued, Reason for Anti-Infective: Documented Infection, Documented Infection Site: Skin / Soft Tissue, Duration of Therapy: Other (see Comments) documented in this encounter Insurance Payer Benefit Plan Subscriber ID Effective Phone Address Typ e / Group Dates MEDICARE MEDICARE PART xxxxxxxxxxx 2019-Leonor [phone] Medicare A & B nt [id number] ZEE ARCOS [id number] [facility] xxxxxxxxx 2020-Leonor Medic aid HEALTHCARE COMM STAR PLUS nt PLAN - MANAGED MEDICAID documented as of this encounter Advance Directives Name Relationship Healthcare Agent Communication Relationship Bridgette Lima Spouse Primary healthcare agent [phone] Ryan (Mobile) [email or web address]
--- OUTSIDE RECORDS SUMMARY | 2020-04-10 11:33 | XMS REPORT | Summary of Care ---
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 Encounter Details Date Type Department Care Team Description 03/26/2020 Orders Only [facility] Doctor Unassigned, No [address] [facility] [place] [address] [address] [place] [address] Allergies No Known Allergiesdocumented as of this encounter (statuses as of 03/31/2020) Medications Medication Sig Dispensed Refills Start Date [...] as of this encounter (statuses as of 03/31/2020) Active Problems Problem Noted Date Cellulitis 03/28/2020 Hyperkalemia 02/25/2020 Chest pain 11/19/2019 Immature arteriovenous fistula 08/05/2019 Overview: Added automatically from request for justo wagner [id number] Shortness of breath 03/28/2019 Pulmonary edema 03/27/2019 Acute on chronic diastolic congestive heart failure Essential hypertension 03/27/2019 Type 2 diabetes mellitus without complication, without long-term current 03/27/2019 use of insulin ESRD (end stage renal disease) 02/21/2019 Overview: Added automatically from request for justo wagner [id number] End stage chronic kidney disease 10/01/2018 Overview: Added automatically from request for justo wagner [id number] Pain management 09/19/2018 Port-site hernia 09/15/2018 Renal mass, right 09/10/2018 Malignant neoplasm of right kidney 08/23/2018 Overview: Added automatically from request for justo wagner [id number] HCV antibody positive 06/22/2018 Positive 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 06/22/2018 Avascular necrosis of lunate 05/21/2018 Overview: Added automatically from request for justo wagner [id number] H/O rheumatoid arthritis 05/01/2018 Immunization counseling 05/01/2018 [...] as of this encounter (statuses as of 03/31/2020) Immunizations Name Administration Dates Next Due Influenza Virus Vaccine Quad .5 mL IM 6+ MO 09/12/2018 Influenza Virus Vaccine Quad IM 3+ YRS 01/07/2018 Pneumococcal Polysaccharide, PPSV23 (PNEUMOVAX) 01/07/2018 documented as of this encounter Social History Tobacco Use Types Packs/Day Years Used Date Never Smoker Smokeless Tobacco: Never Used Comments: marajuana daily Alcohol Use Drinks/Week oz/Week Comments No [...] Office Visit Orthopedic Surgery Heri Albarado MD [address] [place], [place] [id number] Health Maintenance Due Date Last Done Comments [...] of this encounter Implants Implanted Type Area Rn Complex Care Device Shelf Model / Identifier Expiration Serial / Date Lot Knee KNEE Knee Plate PLATE Neck Plate Narrow 5 Hole [employer] Ref#[id number] PLATE Right: Integra Life [place] 2511-05-2 / Implanted: Qty: 1 on 05/31/2018 by Chip Philippe ace, MD at [facility] [employer] [place] 2511-0 5-2 / [place] 2511-05 - Screw SCREW Neck Screw 2.5 Cortical [employer] Ref#[id number] SCREW Right: Integra Life [id number] / Implanted: Qty: 1 on 05/31/2018 by Chip Philippe ace, MD at [facility] [employer] [id number] -2 / [id number] Screw 2.5 Cortical [employer] Ref#[id number] SCREW Right: Integra Life [id number] / Implanted: Qty: 3 on 05/31/2018 by Chip Philippe ace, MD at [facility] [employer] [id number] -2 / [id number] Screw 2.5 Cortical [employer] Ref#[id number] SCREW Right: Integra Life [id number] / Implanted: Qty: 3 on 05/31/2018 by Chip Philippe ace, MD at [facility] [employer] [id number] -2 / [id number]- [id number] Screw 2.5 Cortical [employer] Ref#[id number] SCREW Right: Integra Life [id number] / Implanted: Qty: 2 on 05/31/2018 by Chip Philippe ace, MD at [facility] [employer] [id number] -2 / [id number] Screw 2.5 Cortical [employer] Ref#[id number] SCREW Right: [employer]gra Life [id number] / Implanted: Qty: 2 on 05/31/2018 by Chip Philippe ace, MD at [facility] Sciences [id number] / [id number] Kwirwe 1.4 Ref#[id number] WIRE Right: Integra Life [id number] / Implanted: Qty: 1 on 05/31/2018 by Chip Philippe ace, MD at [facility] 0 / 0 documented as of this encounter Procedures Procedure Name Priority Date/Time Associated Diagnosis Comme nts EXTERNAL PROVIDER Routine 03/26/2020 12:01 AM CDT RECORDS documented in this encounter Results Not on filedocumented in this encounter Insurance Payer Benefit Plan Subscriber ID Effective Phone Address Typ e / Group Dates MEDICARE MEDICARE PART xxxxxxxxxxx 2019-Prese [phone] Medicare A & B nt [id number] ZEE ARCOS [id number] [facility] xxxxxxxxx 2020-Leonor Medic aid HEALTHCARE COMM STAR PLUS nt PLAN - MANAGED MEDICAID documented as of this encounter Advance Directives Name Relationship Healthcare Agent Communication Relationship Bridgette Lima Spouse Primary healthcare agent Ryan (Mobile) [email or web address]
--- OUTSIDE RECORDS SUMMARY | 2020-04-10 11:34 | XMS REPORT | Summary of Care ---
:1970 Author Organization [facility] - Health Address [address] [place] [address] Care Team Providers Name Role Phone Vicente Hussein Insurance Hmo Antolin Braun Primary Care Provider Sarabjit Roca DO Marketing Executive Reason for Visit Reason Comments Transition Of Care Encounter Details Date Type Department Care Team Description 04/01/2020 Transition of Care [facility] Soila Alfaro Transition Of Care [facility] RN [phone] Allergies No Known Allergiesdocumented as of this encounter (statuses as of 04/01/2020) Medications Medication Sig Dispensed Refills Start Date End Date Status lisinopril 30 mg Take 30 mg by 0 Active tablet mouth daily. metoprolol tartrate Take 50 mg by 0 Active 50 mg tablet mouth 2 (two) times daily. cloniDINE 0.1 mg Take 0.1 mg by 0 Active tablet mouth 3 (three) times daily as needed. NIFEdipine XL 90 mg Take 90 mg by 11 01/28/2019 Active 24 hr tablet mouth daily. calcium acetate 667 TAKE 1 CAPSULE 0 08/28/2019 Active mg capsule BY MOUTH THREE TIMES DAILY WITH MEAL.ALSO TAKE 1 CAPSULE BY MOUTH TWICE DAILY WITH SNACK valACYclovir Take 1 tablet by 20 tablet 0 03/25/2020 0 Active (VALTREX) 500 mg mouth 2 (two) tabletIndications: times daily for Herpetic nimo 10 days. doxazosin 2 mg Take 1 tablet by 60 tablet 0 03/29/2020 020 Active tabletIndications: mouth 2 (two) Essential times daily for hypertension 30 days. oxyCODONE CR 30 mg Take 30 mg by 20 tablet 0 03/29/2020 Active [id number]: Pain mouth every 12 management (twelve) hours. doxycycline hyclate Take 1 capsule 20 capsule 0 03/29/202001/2020 Active 100 mg by mouth every capsuleIndications: 12 (twelve) Finger infection hours for 10 days. documented as of this encounter (statuses as of 04/01/2020) Active Problems Problem Noted Date Cellulitis 03/28/2020 Hyperkalemia 02/25/2020 Chest pain 11/19/2019 Immature arteriovenous fistula 08/05/2019 Overview: Added automatically from request for justo wagner [id number] Shortness of breath 03/28/2019 Pulmonary edema 03/27/2019 Acute on chronic diastolic congestive heart failure Essential hypertension 03/27/2019 Type 2 diabetes mellitus without complication, without long-term current 03/27/2019 use of insulin ESRD (end stage renal disease) 02/21/2019 Overview: Added automatically from request for justo wagner [id number] End stage chronic kidney disease 10/01/2018 Overview: Added automatically from request for justo wagner [id number] Pain management 09/19/2018 Port-site hernia 09/15/2018 Renal mass, right 09/10/2018 Malignant neoplasm of right kidney 08/23/2018 Overview: Added automatically from request for justo wagner [id number] HCV antibody positive 06/22/2018 Positive 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 06/22/2018 Avascular necrosis of lunate 05/21/2018 Overview: Added automatically from request for justo wagner [id number] H/O rheumatoid arthritis 05/01/2018 Immunization counseling 05/01/2018 [...] Every Day Smoker Smokeless Tobacco: Never Used Comments: jessica [...] Office Visit Orthopedic Surgery Heri Albarado MD [address] [id number] Health Maintenance Due Date Last Done Comments [...] of this encounter Implants Implanted Type Area Liner Inserter Device Shelf Model / Identifier Expiration Serial / Date Lot Knee KNEE Knee Plate PLATE Neck Plate Narrow 5 Hole [employer] Ref#[id number] [place] [address]-10-2 / Implanted: Qty: 1 on 05/31/2018 by Chip Philippe ace, MD at [facility] [employer] [place] 2511-0 5-2 / [place] [id number] Screw SCREW Neck Screw 2.5 Cortical [employer] Ref#[id number] SCREW Right: [employer] [id number] / Implanted: Qty: 1 on 05/31/2018 by Chip Philippe ace, MD at [facility] [employer] [id number] -[id number] / [id number]- 2 Screw 2.5 Cortical [employer] Ref#[id number] SCREW Right: [employer] [id number] / Implanted: Qty: 3 on 05/31/2018 by Chip Philippe ace, MD at [facility] [employer] [id number] -2 / [id number]- 2 Screw 2.5 Cortical [employer] Ref#[id number] SCREW Right: [employer] Life [id number] / Implanted: Qty: 3 on 05/31/2018 by Chip Philippe ace, MD at [facility] [employer] [id number] -2 / [id number]- 2 Screw 2.5 Cortical [employer] Ref#[id number] SCREW Right: [employer] Life [id number] / Implanted: Qty: 2 on 05/31/2018 by Chip Philippe ace, MD at [facility] [employer] [id number] -2 / [id number] 2 Screw 2.5 Cortical [employer] Ref#[id number] SCREW Right: [employer] [id number] / Implanted: Qty: 2 on 05/31/2018 by Chip Philippe ace, MD at [facility] [employer] [id number] / [id number] Kwirwe 1.4 Ref#[id number] WIRE Right: [employer] [id number] / Implanted: Qty: 1 on 05/31/2018 by Chip Philippe ace, MD at [facility] [employer] 0 / 0 documented as of this encounter Results Not on filedocumented in this encounter Insurance Payer Benefit Plan Subscriber ID Effective Phone Address Typ e / Group Dates MEDICARE MEDICARE PART xxxxxxxxxxx 2019-Prese [phone] Medicare A & B nt [id number] ZEE ARCOS [id number] [facility] xxxxxxxxx 2020-Prese Medic aid HEALTHCARE COMM STAR PLUS nt PLAN - MANAGED MEDICAID documented as of this encounter Advance Directives Name Relationship Healthcare Agent Communication Relationship Bridgette Lima Spouse Primary healthcare agent Ryan (Mobile) [email or web address]
--- OUTSIDE RECORDS SUMMARY | 2020-04-10 11:35 | XMS REPORT | Summary of Care ---
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 Reason for Visit Reason Comments Follow-up left ring finger Other (Routine) Status Reason Specialty Diagnoses / Referred By Referred To Procedures Contact Contact Closed Orthopedic Surgery Diagnoses Finger infection Mateus Otoole MD Procedures Discharge Follow-up: Specialty Provider JEMAL ALBARADO; 3-[address] [place] [phone] Encounter Details Date Type Department Care Team Description 04/01/2020 Office Visit [facility] Jemal Albarado MD Necrosis of finger Orthopaedic Surgery- [address] [place] [address] (P rimary Dx) [address] 1.211 [address] [place], [place] [phone] [address] [phone] Allergies No Known Allergiesdocumented as of this encounter (statuses as of 04/02/2020) Medications Medication Sig Dispensed Refills Start Date [...] mg by 20 tablet 0 03/29/2020 Active [id number]: Pain mouth every 12 management (twelve) hours. doxycycline hyclate Take 1 capsule 20 capsule 0 03/29/202001/2020 Active 100 mg by mouth every capsuleIndications: 12 (twelve) Finger infection hours for 10 days. documented as of this encounter (statuses as of 04/02/2020) Active Problems Problem Noted Date Cellulitis 03/28/2020 Hyperkalemia 02/25/2020 Chest pain 11/19/2019 Immature arteriovenous fistula 08/05/2019 Overview: Added automatically from request for justo wagner [id number] Shortness of breath 03/28/2019 Pulmonary edema 03/27/2019 Acute on chronic diastolic congestive heart failure Essential hypertension 03/27/2019 Type 2 diabetes mellitus without complication, without long-term current 03/27/2019 use of insulin ESRD (end stage renal disease) 02/21/2019 Overview: Added automatically from request for justo mendiolay [id number] End stage chronic kidney disease 10/01/2018 Overview: Added automatically from request for justo mendiolay [id number] Pain management 09/19/2018 Port-site hernia 09/15/2018 Renal mass, right 09/10/2018 Malignant neoplasm of right kidney 08/23/2018 Overview: Added automatically from request for justo mendiolay [id number] HCV antibody positive 06/22/2018 Positive 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 06/22/2018 Avascular necrosis of lunate 05/21/2018 Overview: Added automatically from request for justo mendiolay [id number] H/O rheumatoid arthritis 05/01/2018 Immunization counseling 05/01/2018 [...] as of this encounter (statuses as of 04/02/2020) Immunizations Name Administration Dates Next Due Influenza Virus Vaccine Quad .5 mL IM 6+ MO 09/12/2018 Influenza Virus Vaccine Quad IM 3+ YRS 01/07/2018 Pneumococcal Polysaccharide, PPSV23 (PNEUMOVAX) 01/07/2018 documented as of this encounter Social History Tobacco Use Types Packs/Day Years Used Date Current Every Day Smoker Smokeless Tobacco: Never Used Comments: marajuana [...] Pressure - - Pulse - - Temperature 36.8 C (98.2 F) 04/01/2020 2:49 PM CDT Respiratory Rate - - Oxygen Saturation - - Inhaled Oxygen Concentration - - Weight 96.9 kg (213 lb 9.6 oz) 04/01/2020 2:49 PM CDT Height 177.8 cm (5' 10") 04/01/2020 2:49 PM CDT Body Mass Index 30.65 04/01/2020 2:49 PM CDT documented in this encounter Progress Notes Indira Cruz MD - 04/01/2020 3:00 PM CDT ORTHO HAND CLINIC NOTE NAME: Vladimir Maguire Date of Service: 04/02/2020 07:08 CC: Left ring finger pain. SUBJECT: HPI 03/25/20 Vladimir Maguire is a 49 year old [...] denies other concerns and complaintsat this time. Interval History 04/02/2020 Patient presents for follow up for left ring finger pain concerning for infection vs herpetic nimo being treated with valtrex and augementin. In the interim he went to the ED and was given IV vanc/zosyn and discharged on doxycycline. MRI was performed which showed no evidence of infection. Patient today states that his finger he unchanged with antibiotics. He continues to have swelling, erythema, and hypersensitivity especially at his finger tip. . CURRENT HOSPITAL MEDICATIONS Current Outpatient Medications on File Prior to Visit Medication Sig Dispense Refill doxazosin 2 mg tablet Take 1 tablet by mouth 2 (two) times daily for 30 days. 60 tablet 0 doxycycline hyclate 100 mg capsule Take 1 capsule by mouth every 12 (twelve) hours for 10 days. 20 capsule 0 oxyCODONE CR 30 mg TR12 Take 30 mg by mouth every 12 (twelve) hours. 20 tablet 0 valACYclovir (VALTREX) 500 mg tablet Take 1 tablet by mouth 2 (two) times daily for 10 days. 20 tablet 0 calcium acetate 667 mg capsule TAKE 1 CAPSULE BY MOUTH THREE TIMES DAILY WITH MEAL.ALSO TAKE 1 CAPSULE BY MOUTH TWICE DAILY WITH SNACK NIFEdipine XL 90 mg 24 hr tablet [...] Jean MD; [facility] Location BELOW THE KNEE AMPUTATION REVISION Right 10/2014 DIAGNOSTIC LAPAROSCOPY N/A 09/15/2018 Surgeon: Victor Manuel Graff MD; Location: [facility] Amee DISTAL RADIUS ORIF Right 05/31/2018 Surgeon: Jemal Albarado MD; Location: [facility] INCISION AND DRAINAGE OF ABSCESS Lower 02/05/2018 Surgeon: Zackery Miramontes MD; [facility]: [facility] INCISIONAL HERNIORRHAPHY N/A 09/15/2018 Surgeon: [...] Onset Arthritis Mother Diabetes Father Stroke NoFHx [place] (myocardial infarction) NoFHx All other family history non contributory to this encounter. 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[employer] All other social history non contributory to [...] Allergies: No Known Allergies PHYSICAL EXAM Temp 36.8 C (98.2 F) (Temporal Artery) | Ht 70" (177.8 cm) | Wt 96.9 kg (213 lb 9.6 oz) | BMI30.65 kg/m General: Alert and oriented, in no [...] along the flexor sheath of affected digit. Hypersensitivity at finger tip Neuro: No focal deficits. Psych: Appropriate mood [...] IMPRESSION No acute bony abnormality. Mild osteoarthrosis. ASSESSMENT/PLAN Vladimir Maguire is a 49 year old male with PMH as seen above who presents with left ring finger pain. Patient has been treated for possible herpetic whitlwow versus infection, however, there has been no improvement in symptoms and MRI shows no evidence of infection. It is most likely at this pointthat patient has peripheral vascular disease resulting in finger tip necrosis that is compressing onthe surrounding nerves. Patient is already taking gabapentin 600mg TID provided by OSH PCP. - Educated patient on condition present. He expressed understanding and was in agreement with plan of care. - Recommend increasing gabepentin dose per PCP - Instructed on desensitization - Follow up prn Indira Cruz MD Orthopaedic Surgery PGY-3 documented in this encounter Plan of Treatment [...] 09/27/2020 03/27/2020, 11/19/2019, 03/30/2019, Additional history exists Depression Screening 10/25/2020 10/25/2019 CREATININE (SERUM) 03/28/2021 03/28/2020, 03/27/2020, 02/26/2020, Additional history exists documented as of this encounter Implants Implanted Type Area Revenue Specialist Device Shelf Model / Identifier Expiration Serial / Date Lot Knee KNEE Knee Plate PLATE Neck Plate Narrow 5 Hole [employer] Ref#[id number] PLATE Right: [employer] [place] 2511-05-2 / Implanted: Qty: 1 on 05/31/2018 by Jemal Philippe ace, MD at [facility] [employer] [place] 2511-0 5-2 / NE 2511-05 -2 Screw SCREW Neck Screw 2.5 Cortical [employer] Ref#[id number] SCREW Right: [employer] [id number] / Implanted: Qty: 1 on 05/31/2018 by Jemal Philippe ace, MD at [facility] [employer] [id number] -[id number] / [id number] Screw 2.5 Cortical [employer] Ref#[id number] SCREW Right: [employer] [id number] / Implanted: Qty: 3 on 05/31/2018 by Jemal Philippe ace, MD at [facility] [employer] [id number] -[id number] / [id number] Screw 2.5 Cortical [employer] Ref#[id number] SCREW Right: [employer] [id number] / Implanted: Qty: 3 on 05/31/2018 by Jemal Philippe ace, MD at [facility] [employer] [id number] -[id number] / [id number] Screw 2.5 Cortical [employer] Ref#[id number] SCREW Right: [employer] [id number] / Implanted: Qty: 2 on 05/31/2018 by Jemal Philippe ace, MD at [facility] [employer] [id number] -2 / [id number] Screw 2.5 Cortical [employer] Ref#[id number] SCREW Right: [employer] [id number] / Implanted: Qty: 2 on 05/31/2018 by Jemal Philippe ace, MD at [facility] [employer] [id number] / [id number] Kwirwe 1.4 Ref#[id number] WIRE Right: [employer] [id number] / Implanted: Qty: 1 on 05/31/2018 by Jemal Philippe ace, MD at [facility] [employer] 0 / 0 documented as of this encounter Results Not on filedocumented in this encounter Visit Diagnoses Diagnosis Necrosis of finger - Primary Gangrene documented in this encounter Insurance Payer Benefit Plan Subscriber ID Effective Phone Address Typ e / Group Dates MEDICARE MEDICARE PART xxxxxxxxxxx 2019-Prese [phone] Medicare A & B nt [id number] [place] [id number] [facility] xxxxxxxxx 2020-Prese Medic aid HEALTHCARE COMM STAR PLUS nt PLAN - MANAGED MEDICAID documented as of this encounter Advance Directives Name Relationship Healthcare Agent Communication Relationship Bridgette Lima Spouse Primary healthcare agent Ryan (Mobile) [email or web address]
--- OUTSIDE RECORDS SUMMARY | 2020-04-10 11:36 | XMS REPORT | Summary of Care ---
:1970 Author Organization [facility] - [facility] Address [address] [place] [address] Care Team Providers Name Role Phone Vicente Hussein Insurance Hmo Antolin Braun Primary Care Provider Sarabjit Roca DO Manager Audio Reason for Visit Reason Comments Follow-up left ring finger Other (Routine) Status Reason Specialty Diagnoses / Referred By Referred To Procedures Contact Contact Closed Orthopedic Surgery Diagnoses Finger infection Mateus Otoole MD Procedures Discharge Follow-up: Specialty Provider JEMAL ALBARADO; 3-[address] [place] [phone] Encounter Details Date Type Department Care Team Description 04/01/2020 Office Visit [facility] Jemal Albarado MD Necrosis of finger Orthopaedic Surgery- [address] [place] [address] (P rimary Dx) [address] 1.211 [address] [place], [place] [phone] [address] [phone] Allergies No Known Allergiesdocumented as of this [...] mg by 20 tablet 0 03/29/2020 Active MR31Yefgnmpuxdn: Pain mouth every 12 management (twelve) hours. [...] Added automatically from request for justo wagner [id number] Shortness of breath 03/28/2019 Pulmonary edema 03/27/2019 Acute on chronic diastolic congestive heart failure Essential hypertension 03/27/2019 Type 2 diabetes mellitus without complication, without long-term current 03/27/2019 use of insulin ESRD (end stage renal disease) 02/21/2019 Overview: Added automatically from request for justo mendiolay [id number] End stage chronic kidney disease 10/01/2018 Overview: Added automatically from request for justo mendiolay [id number] Pain management 09/19/2018 Port-site hernia 09/15/2018 Renal mass, right 09/10/2018 Malignant neoplasm of right kidney 08/23/2018 Overview: Added automatically from request for justo mendiolay [id number] HCV antibody positive 06/22/2018 Positive 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 06/22/2018 Avascular necrosis of lunate 05/21/2018 Overview: Added automatically from request for justo mendiolay 895138 H/O rheumatoid arthritis 05/01/2018 Immunization counseling 05/01/2018 [...] Onset Arthritis Mother Diabetes Father Stroke NoFHx [place] (myocardial infarction) NoFHx All other family history [...] file Gets together: Not on file Attends anabaptist service: Not on file Active member of [...] girlfriend. 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[employer] All other social history non contributory to [...] of this encounter Implants Implanted Type Area Ambulance Driver Device Shelf Model / Identifier Expiration Serial / Date Lot Knee KNEE Knee Plate PLATE Neck Plate Narrow 5 Hole [employer] Ref#[id number] PLATE Right: [employer] [place] 2511-05-2 / Implanted: Qty: 1 on 05/31/2018 by Jemal Philippe ace, MD at [facility] [employer] [place] 2511-0 5-2 / CT 2511-05 -2 Screw SCREW Neck Screw 2.5 Cortical [employer] Ref#[id number] SCREW Right: [employer] [id number] / Implanted: Qty: 1 on 05/31/2018 by Jemal Philippe ace, MD at [facility] [employer] [id number] -2 / [id number] 2 Screw 2.5 Cortical [employer] Ref#[id number] SCREW Right: [employer] [id number] / Implanted: Qty: 3 on 05/31/2018 by Jemal Philippe ace, MD at [facility] [employer] [id number] -2 / [id number] 2 Screw 2.5 Cortical [employer] Ref#[id number] SCREW Right: [employer] [id number] / Implanted: Qty: 3 on 05/31/2018 by Jemal Philippe ace, MD at [facility] [employer] [id number] -2 / [id number] 2 Screw 2.5 Cortical [employer] Ref#[id number] SCREW Right: [employer] [id number] / Implanted: Qty: 2 on 05/31/2018 by Jemal Philippe ace, MD at [facility] [employer] [id number] -2 / [id number] 2 Screw 2.5 Cortical [employer] Ref#[id number] SCREW Right: [employer] [id number] / Implanted: Qty: 2 on 05/31/2018 by Jemal Philippe ace, MD at [facility] [employer] [id number] / [id number] Kwirwe 1.4 Ref#[id number] WIRE Right: [employer] [id number] / Implanted: Qty: 1 on 05/31/2018 by Jemal Philippe ace, MD at [facility] [employer] 0 / 0 documented as of this encounter Results Not on filedocumented in this encounter Visit Diagnoses Diagnosis Necrosis of finger - Primary Gangrene documented in this encounter Insurance Payer Benefit Plan Subscriber ID Effective Phone Address Typ e / Group Dates MEDICARE MEDICARE PART xxxxxxxxxxx 2019-Prese [phone] Medicare A & B nt [id number] [place] [id number] [facility] xxxxxxxxx 2020-Prese Medic aid HEALTHCARE COMM STAR PLUS nt PLAN - MANAGED MEDICAID documented as of this encounter Advance Directives Name Relationship Healthcare Agent Communication Relationship Bridgette Lima Spouse Primary healthcare agent Ryan (Mobile) [email or web address]
[2020-04-10 11:41] LABS: Absolute Lymphocytes (CBC) 1.2 K/uL (0.7-4.9); Basophils % 0.7 % (0-1.3); Hematocrit 39.3 % (39.6-49.0); Lymphocytes % 15.1 % (15.3-44.8); MPV 7.2 fL (7.6-11.3); RBC Red Blood Cell Count 4.65 M/uL (4.33-5.43)
[2020-04-10] MEDS ORDERED: CEFAZOLIN/SWI 1gm 1 GM/10 ML SYR ONE (11:48)
[2020-04-10] MEDS ORDERED: NA CHLORIDE 0.9% 500 ML ONE (11:48)
[2020-04-10 12:10] LABS: Potassium 5.9 mmol/L (3.5-5.1)
--- NOTE | 2020-04-10 12:19 | RAD REPORT ---
EXAM DESCRIPTION: RAD - Chest Pa And Lat (2 Views) - 04/10/2020 12:03 pm CLINICAL HISTORY: pre op SDS room 1 Chest pain. COMPARISON: Chest Single View dated 03/25/2019; Chest Single View dated 09/29/2018 FINDINGS: The lungs are clear. Mild left hemidiaphragm elevation noted, chronic. The heart is normal in size. No displaced fractures. IMPRESSION: No acute or concerning finding suspected.
[2020-04-10] MEDS ORDERED: MIDAZOLAM HCL 2 MG/2 ML INJ ONE (14:32)
--- NOTE | 2020-04-10 14:34 | EKG ---
Test Date: 2020-04-10 Test Time: 11:36:39 Traffic Control Operator: LIN MEASUREMENT RESULTS: Intervals: Rate: 73 [place]: 176 QRSD: 88 QT: 386 QTc: 425 [place]: P: 55 [place]: 176 QRS: 59 T: 101 INTERPRETIVE STATEMENTS: Normal sinus rhythm Normal ECG Compared to ECG 03/25/2019 06:56:48 No significant changes Electronically Signed On 04-10-20 14:33:05 CDT by Giuseppe Richmond
[2020-04-10] MEDS ORDERED: FENTANYL CITR 100 MCG/2 ML ONE (14:42)
[2020-04-10] MEDS ORDERED: propofoL 200 MG/20 ML VIAL IV ONE (14:42)
[2020-04-10] MEDS ORDERED: LIDOCAINE 1% MPF 5 ML VIAL ONE (14:47)
[2020-04-10] MEDS ORDERED: LIDOCAINE JELLY 2%- 5 ML TUBE ONE (15:00)
[2020-04-10 15:56] VITALS: O2SAT 99
[2020-04-10 16:55] VITALS: BP 173/89; TEMP 97.4
[2020-04-10] MEDS ORDERED: SOD POLYSTYREN SUL 15 GM/60 ML UCUP PO ONE (17:00)
--- NOTE | 2020-04-11 01:31 | OP ---
Date of Procedure: 04/10/2020 Surgeon: Murali Cotton MD Preoperative Diagnosis: Abscess cellulitis with ischemic changes, left fourth finger distal phalanx. Postoperative Diagnosis: Abscess cellulitis with ischemic changes, left fourth finger distal phalanx with significant ischemia and gangrene present at the tip. Procedure Performed: Incision, drainage, and debridement and then the left distal fourth finger dist al phalanx amputation V-flap. Estimated Blood Loss: Minimal. Specimens: Culture and sensitivity in the left distal 4th finger. Anesthesia: MAC. Complications: None. Patient tolerated the procedure in stable condition and was taken to Recovery in good general conditi on. Description Of Procedure: Patient was brought to the OR and placed in supine position. MAC anesthes ia was begun. Then Marcaine 0.5% used in finger block fashion and then 15 blade was used to cut arou nd the edge where the patient was ischemic and there was no viable tissue at all, there was absolutel y no bleeding. I had to go further down to the crease of the distal phalanx with the middle phalanx to get to some healthy tissue. The nail bed had already come off, it was all black and gangrenous so this was all nonviable tissues. We made an incision along the medial and lateral aspect of the digi t on the medial phalanx portion and then the bone was divided right below the metacarpal head of the middle phalanx and then the entire distal phalanx was sent to Pathology. There was a little pus pres ent which was cultured and the remainder of the finger was sent off and then wound irrigated and blee ding controlled with cautery. Then, 2-0 chromic used to approximate the subcutaneous tissue and 3-0 nylon used to close the V-flap that was created to cover the bone. Sterile dressing applied. Steven aponte was awakened and taken to Recovery in good general condition. Patient will be admitted for dialysi s and will be discharged home by the Hospitalist Service. He is to follow up with me in [address] kruse orders given and antibiotics have already been given. /MODL Voice ID: [id number] Report ID: [id number]
== END 2020-04-10 16:54 | disposition home or self-care (01) ==
LOC: OR 11:11
PROVIDERS: ATTEND Surgery
PROC: 0X6T0Z3 Detachment at Left Ring Finger, Low, Open Approach (ICD-10-PCS; 2020-04-10)
PROC: 0H9GXZZ Drainage of Left Hand Skin, External Approach (ICD-10-PCS; principal; 2020-04-10 15:15)
DX: L02.512 Cutaneous abscess of left hand (principal); L03.012 Cellulitis of left finger; E11.52 Type 2 diabetes mellitus with diabetic peripheral angiopathy with gangrene; I96 Gangrene, not elsewhere classified
CPT/HCPCS: 26010; 26952; 93005; 87070 ×2; 85025; 80048; 36415; 87205 ×2; 87075; 87077 ×4; 87186 ×4; 87176; 71046; J2704; J3010; J0690; J7040; J2250

== ENCOUNTER 2020-04-21 16:07 | Inpatient (IN) | payer OTHER ==
[2020-04-21] MEDS ORDERED: ONDANSETRON 4 MG/2 ML VIAL ONE (17:14)
[2020-04-21] MEDS ORDERED: HYDROMORPHONE HCL 1 MG/ML INJ ONE (17:14)
[2020-04-21] MEDS ORDERED: NA CHLORIDE 0.9% 1,000 ML ONE (17:14)
--- OUTSIDE RECORDS SUMMARY | 2020-04-21 17:15 | XMS REPORT | Clinical Summary ---
:1970 Author Organization [facility] Address [facility] [place] [address] Care Team Providers Name Role Phone Yoshi Nitesh Monge [facility] Sweat Band Separator UnavailAnh Jain [facility] Sweat Band Separator Zeke Nava [facility] Sweat Band Separator Unavailable Darling Goyal RN Registered Nurse Unavailable [...] mellitus, nightly. uncontrolled fluticasone (FLONASE) Use 1 [place] in 16 g 5 01/07/2016 Active 50 [...] 50 to 75 Implants Implanted Type Area Research Quality Assurance Analyst Device Shelf Model / Identifier Expiration Date Ser ial / Lot Vasquez Vent Tube Right: [employer] 04/04/2024 / Implanted: Qty: 1 on 09/03/2014 by Yobani Neal, ResidentMD at [facility] Ear(s), / Inner [id number] Results Not on fileafter 04/21/2019 Insurance Payer Benefit Plan / Subscriber ID Effective Phone Address T ype Group Dates [facility] xxxxxxxxx 2016-Prese [phone] HEALTHCARE PLAN SSI nt [id number] [place] [address] Advance Directives Code Status Date Activated Date Inactivated Comments Full Code 09/25/2014 9:25 PM 09/30/2014 7:00 PM Full Code 09/25/2014 4:43 PM 09/25/2014 9:25 PM Full Code 05/28/2014 2:26 AM 05/29/2014 12:47 PM Full Code 01/12/2014 1:16 PM 01/13/2014 5:20 PM Full Code 09/30/2013 7:44 PM 10/02/2013 1:07 PM
--- OUTSIDE RECORDS SUMMARY | 2020-04-21 17:15 | XMS REPORT | Clinical Summary ---
:1970 Author Organization [facility] Address [address] [place] [address] Care Team Providers Name Role Phone Leroy [...] Not on file Results Not on fileafter 04/21/2019 Insurance Payer Benefit Plan / Subscriber ID Type Phone Address Group MEDICARE MEDICARE A B xxxxxxxxxx Medicare MEDICAID - MEDICAID [facility] COMM STAR xxxxxxxxx Medicaid Contracted MGD CARE PLAN
--- OUTSIDE RECORDS SUMMARY | 2020-04-21 17:16 | XMS REPORT | Continuity of Care Document ---
:1970 Author Organization [facility] t Address [address] [place] [address] Care Team Providers Name Role Phone Leroy [...] Mem oria 14 07:19:00 l UNK 00:00: Rob 00 Active 06/19/2018 [facility] Pure Pure Disease Active [facility]se hyperchole hyperchole [...] disease End Rob stage renal disease 01/29/2019 [facility] Dependence Problem Active 2019-01-29 M emoria on 11:55:01 l hemodialys Alex n is due to Dependence end stage on renal hemodialys disease is due to (finding) end stage renal disease (finding) Active Problem 01/29/2019 [facility] Diabetes Problem Active 2019-01-29 Mem oria mellitus 11:55:01 l (disorder) Diabetes He rmann mellitus (disorder) Active Problem 01/29/2019 [facility] Generalize Problem Active 2019-01-29 M emoria d chronic 11:55:01 l body pains Alex n (finding) Generalize d chronic body pains (finding) Active Problem 01/29/2019 [facility] Hypertensi Problem Active 2019-01-29 M emoria ve 11:55:01 l disorder, [place] systemic Hypertensi arterial ve (disorder) disorder, systemic arterial (disorder) Active Problem 01/29/2019 [facility] Osteoarthr Problem Active 2019-01-29 M emoria itis 11:55:01 l (disorder) Alex n Osteoarthr itis (disorder) Active Problem 01/29/2019 [facility] Post-infec Problem Active 2019-01-29 M emoria tive 11:55:01 l arthritis Rob (disorder) Post-infec tive arthritis (disorder) Active Problem 01/29/2019 [facility] Renal mass Problem Active 2019-01-29 M emoria (finding) 11:55:01 l Renal Rob mass (finding) Active Problem 01/29/2019 [facility] Hypertensi Problem 2017-2019-01-29 2019-01-29 Memoria ve chronic 12-05 11:55:01 11:55:01 l kidney 06:39: [place] disease Hypertensi 57 with stage ve chronic 5 chronic kidney kidney disease disease or with stage end stage 5 chronic renal kidney disease disease or end stage renal disease 10/05/2018 01/29/2019 [facility] Allergies, Adverse Reactions, Alerts Allergy Allergy Status Severity Reaction(s) Onset Inactive Treating Comm ents Source Name Type Date Date Clinician iodine DA Active SV 2019- [facility] 4-15 [place] 00:[facility]: [facility] 00 are [facility] No Known DA Active U [facility] Allergie 02-18 [place] [facility] 00:00: [facility] 00 [facility] No Known DA Active U 2016-11 [facility] Allergie 11-07 [place] s 00:00: [place] 00 [facility] Family History Family Member Diagnosis Comments Start Date Stop Date Source Natural father Arthritis [facility] Natural father Diabetes [facility] Social History Social Habit Start Date Stop Date Quantity Comments Source History of tobacco Cigarette Smoker [facility] Sex Assigned At [facility] Social History 2018-07-12 2018-07-12 [facility] 17:34:34 17:34:34 Cigarettes smoked 2016-02-24 2016-02-24 [facility] current (pack per 00:00:00 00:00:00 day) - Reported Cigarette 2016-02-24 2016-02-24 [facility] pack-years 00:00:00 00:00:00 Alcohol intake 2016-02-24 2016-02-24 [facility] 00:00:00 00:00:00 Smoking Status Start Date Stop Date Source Current every day smoker 2016-03-27 00:00:00 [facility] Current some day smoker 2016-02-24 00:00:00 [facility] Medications Ordered Filled Start Stop [...] moria 07-12 infuse l 17:00: over 2.5 [place] 00 hours For adult patients only: Round to nearest 250 mg per Medical Staff approval MEDICATION WASTE Product Size: 1000 mg Product Wasted: ___ mg meloxicam Yes 15 mg = 1 Mem oria 15 mg oral 07-12 tab, PO, l tablet 16:39: Daily, # Rob 00 30 tab, 0 Refill(s) Acetaminoph Yes 1 tab, PO, Memoria en 325 MG / 07-12 TID, PRN l Hydrocodone 16:38: Pain, # 60 Rob Bitartrate 00 tab, 0 10 MG Oral Refill(s) Tablet [[place] 10/325] Trazodone Yes 100 mg = 1 [...] [facility]arghese EN-CODEINE 4-05 fusion of tablet by [facility] #4 00:00: cervical mouth 2 (TYLENOL/CO 00 spine times DEINE #4) daily as 300-60 mg needed for per tablet Pain. INSULIN Yes Medication 1{syrin Use to [facility] SYRINGE 3-26 refill ge} inject Health 0.5mL [...] H arris (CLARITIN) 3-03 rhinitis, tablet by [facility] 10 mg 00:00: unspecified mouth tablet 00 allergic daily. rhinitis type atorvastati Yes Type 2 20mg Take 1 Escudero rris n (LIPITOR) 3-03 diabetes tablet by [facility] 20 mg 00:00: mellitus, mouth at tablet 00 uncontrolle bedtime d nightly. fluticasone Yes Allergic 1{spray QD Use 1 [facility] (FLONASE) 3-03 rhinitis, } [place] in [facility] 00:00: unspecified each mcg/actuati 00 allergic nostril on nasal rhinitis daily. spray type traMADol 2015- Yes History of 100mg Take 2 [facility]se (ULTRAM) 50 2-25 fusion of tablets by [facility] mg tablet 00:00: cervical mouth 00 spine every 8 hours as needed for Pain. zolpidem Yes Insomnia, 5mg Take 1 Escudero rris (AMBIEN) 5 1-21 unspecified tablet by [facility] mg Tab 00:00: mouth 00 nightly at bedtime as needed for Insomnia. omeprazole 2015- Yes Status post 40mg QD Take 2 [facility]se (PRILOSEC) 1-21 below knee capsules Health 20 mg 00:00: amputation by mouth delayed 00 of right daily. release lower capsule extremity FLUoxetine Yes Status post 20mg QD Take 1 [facility] (PROZAC) 20 1-21 below knee capsule by [facility] mg capsule 00:00: amputation mouth 00 of right daily. 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 insulin Yes Type 2 75U Inject 75 Saeid ris glargine 1-21 [facility] 00:00: uncontrolle under the 100 unit/mL 00 d, with skin at injection retinopathy bedtime nightly. gabapentin Yes Status post 600mg Take 1 [facility]se (NEURONTIN) 1-21 below knee tablet by [facility] 600 mg 00:00: amputation mouth 3 tablet 00 of right times lower daily. extremity lisinopril- Yes 1{tbl} QD Take 1 Escudero rris hydrochloro 1-21 tablet by [facility] thiazide 00:00: mouth (ZESTORETIC 00 daily. ) 20-25 mg per tablet ketoconazol 2015- Yes Toenail QD Apply to [facility]hese e (NIZORAL) 1-21 fungus affected He alth 2 % topical 00:00: area cream 00 daily. albuterol Yes Cough 2{puff} Inhale 2 [facility] (VENTOLIN 1-21 Puffs by [facility] HFA,PROVENT 00:00: mouth 4 [place] 00 times HFA,PROAIR daily as HFA) 90 needed for mcg/actuati Wheezing. on inhaler lancets 28 Yes use as Harri s gauge 1-30 [facility] 00:00: 3 times 00 daily. albuterol Yes 2{puff} Inhale 2 H arris (PROVENTIL 1-30 Puffs by Healt h HFA) 90 00:00: mouth 4 mcg/actuati 00 times on inhaler daily as needed for Wheezing. Immunizations Ordered Immunization Filled Immunization Date Status Commen ts Source Name Name Influenza Vaccine 2013-10-01 Completed [facility] 00:00:00 Tropicamide 0.5% 2013-06-28 Completed [facility] ealt Eye-Amanda 15ml 00:00:00 Tropicamide 0.5% 2013-06-28 Completed [facility] ealt Eye-Amanda 15ml 00:00:00 PPV 23 Pneumococcal 2013-03-29 Completed C4M [facility] Polysaccaride 00:00:00 Toradol 60mg/2ml 2011-06-28 Completed [facility] ealth Syringe 00:00:00 Vital Signs Vital Name Observation Time Observation Value Comments Source Respitory Rate 2018-07-12 17:23:00 Ministerio Crawford Heart Rate 2018-07-12 17:23:00 [facility] Temperature Oral (F) 2018-07-12 17:23:00 98 F [facility] Systolic (mm Hg) 2018-07-12 17:23:00 Pete riaroddy Rivas Diastolic (mm Hg) 2018-07-12 17:23:00 [facility] orial Rob BMI Calculated 2018-07-12 17:01:00 Ministerio Crawford Weight 2018-07-12 17:01:00 [facility] Height 2018-07-12 17:01:00 180.34 cm [facility] Procedures Procedure Date / Time Performed Performing Clinician [facility] e Amputation [facility] Anterior spinal fusion for Memor ial Rob cervical spinal deformity BKA - Below knee Gerard Johnson n amputation Insertion of tunnelled [facility] dialysis catheter using fluoroscopic guidance Knee replacement Gerard Alex n ORIF - Open reduction and Ministerio Crawford internal fixation of fracture Tonsillectomy [facility] Plan of Care Planned Activity Planned Date Details Comments Source Future Scheduled Test 2018 00:00:00 Colorectal Cancer Scrn [facility] Annual (FIT/FOBT) Age 50 to 75 [code = Colorectal Cancer Scrn Annual (FIT/FOBT) Age 50 to 75] Future Scheduled Test 2016-11-26 00:00:00 DM HGBA1C (Yearly) [facility] [code = DM HGBA1C (Yearly)] Future Scheduled Test 2016-01-29 00:00:00 DM Retinal Exam [facility] (Yearly) [code = DM Retinal Exam (Yearly)] Future Scheduled Test 2015-10-09 00:00:00 DM Foot Exam (Yearly) [facility] [code = DM Foot Exam (Yearly)] Encounters Start End Encounter Admission Attending Care Care Encounter Source Date/Time Date/Time Type Type Clinicians Facility Department ID 2020-04-01 2020-04-01 Office CODY Albarado [id number] 14:27:38 15:31:19 Visit [facility] [id number] [facility] [id number] CENTER AT [phone] [place] [address] [place] [address] 2018-07-12 2018-07-12 Outpatient NORMA Saleh [facility] [id number] 10:45:00 16:00:00 Charly 00 Antelmo Results Test Description Test Time Test Comments Results Result [facility] e Comments SURGICAL SPECIMENS 2020-02-21 14:26:00 --------RUN DATE: 02/21/20 [facility] - LAB PAGE 1 RUN TIME: 5997 Specimen Inquiry RUN USER: INTERFACE --------PATIENT: ROSY SHERWOOD LOC: G U #: [id number] AGE/SX: 49/M ROOM: [facility]02[facility]: Saroj Coates MD : 66 BED: DIS: STATUS: [facility] TLOC: -------- SPEC #: [id number] RECD: 02/20/20 STATUS: NEIL [facility] #: [id number] BENEDICTO: 02/20/20 [facility] DR: Saroj Coates MD ENTERED: 02/20/20 SP [...] approximately 1 x 1 x 1 cm. Clinical Quality Assurance Specialist sections are submitted as follows: SECTION CODE: CONTINUED ON NEXT PAGE --------RUN DATE: 02/21/20 [facility] - LAB PAGE 2 RUN TIME: 1427 Specimen Inquiry RUN USER: INTERFACE --------SPEC #: [id number] PATIENT: ROSY SHERWOOD #[id number] (Continued) GROSS DESCRIPTION (Continued) A1-A2: First described small area A3-A5: Larger second described nodule RAB/th MICROSCOPIC DESCRIPTION Microscopic performed. Signed SIGNATURE ON FILE AlekseyRosemarie MD 02/21/20 1426 -------- END OF REPORT GLUBED 2020-02-20 13:17:00 Test Item Value Reference Range Interpretation Comme nts GLUBED (test code = GLUBED) 101 MG/DL 70-105 N BASIC METABOLIC [id number] 06:39:00 Test Item Value Reference Range Interpretation [...] 8.8 mg/dL 8.8-10.2 N CA) CBC W/AUTO [id number] 06:35:00 Test Item Value Reference Range Interpretation [...] BA#) 0.05 x10 3/uL 0.0-0.20 N SPECIAL [id number] 17:02:[facility] 2018-07-12 16:58:00Negative (07/12/18 11:58 AM)[facility] 2018-07-12 16:58:0010.2[facility] EoxswnyEYCZHTQSJWRC6402-49-21 16:58:0019[facility] AupeqowUCKPQCJEHHKW5206-95-51 16:58:008.0[facility] GvybireYLMZMWTSDTYC8539-36-22 16:58:0026[facility] LvwcnszBZSIZGLXUQWB8337-22-50 16:58:003.53[facility] [place] UUMABSABFMWA1915-06-35 16:58:0033[facility] MqcehkcHJHLSBAPIIRP6525-94-20 16:58:00 86[facility] EbyhcxwKLQEGGEIJEEU6661-59-41 16:58:02189Fwlsxwdt HermannELECTROLYTES 2018-07-12 16:58:03467Mhnnshog GnvytzvAUJHJWCSQALE8591-68-42 16:58:005.2[facility] VfxjzeuNXQGWDWQSX4387-72-53 16:58:00 Test Item Value Reference Range Interpretation Comments PTT (test code = PTT) 34.8 s 22.9-35.8 [facility] CenterZifrjgxTPRBDISCZC5011-32-77 16:58:00 Test Item Value Reference Range Interpretation Comments INR (test code = INR) 0.94 1 0.85-1.17 [facility] CenterFkbbncvWQISFEFTZA0854-94-41 16:58:00 Test Item Value Reference Range Interpretation Comments PT (test code = PT) 12.6 s 12.0-14.7 [facility] DallasNxkwqihEZWCMJEVJX9054-14-17 16:58:19585[facility]py HermannHEMATOLOGY 2018-07-12 16:58:007.6[facility] VhispmgFUYEGGEHFW9212-54-81 16:58:0037.0[facility] EjmegkbFAEJEEKUEK4417-31-58 16:58:00 Test Item Value Reference Range Interpretation Comments MCH (test code = MCH) 27.0 pg 27.0-31.0 [facility] DallasLvrajjpXMDRZMYOVN9525-02-42 16:58:0032.7[facility] HermannHEMATOLOGY 2018-07-12 16:58:0015.7[facility] GdyfqysNKOSLCKQDR1737-24-91 16:58:0082.5[facility] QngzdgiEMNEGPZFEL5697-79-36 16:58:0012.1[facility] PxahwqaRDTGWSHAZP2302-81-14 16:58:004.49[facility] QxhnpdaHLXFDFOSEC5861-29-88 16:58:0010.7[facility] [place] FIIELTGDWZ1187-12-44 16:58:000.6[facility] QcrscrsWIAPIXPGJY2142-83-76 16:58:004.6 [facility] IrseawsIMZCSNBBVL4675-19-83 16:58:007.0[facility] HermannHEMATOLOGY 2018-07-12 16:58:002.4[facility] SfpynntZRQBDRZJCN7364-53-66 16:58:000.8[facility] QxocpkwCAVPVOIUIC3886-35-94 16:58:0022.5[facility] VkkpfsvYYUERXQNTZ1196-49-28 16:58:007.2[facility] QgriyhvMJAYSGQYZN8702-18-30 16:58:000.5[facility] [place] RLPQEEAVRP2212-02-87 16:58:000.1[facility] KtbeymeNDDODLAGUT3500-30-44 16:58:00 65.1[facility] [place]
--- OUTSIDE RECORDS SUMMARY | 2020-04-21 17:16 | XMS REPORT | Continuity of Care Document ---
:1970 Author Organization [employer] Care Team Providers Name Role Phone [employer] Unavailable Un available Problems Problem Status Onset [...] 10 MG tab, 0 Oral Tablet Refill(s) [[place] 10/325] Trazodone 100 mg = 1 Active Hydrochloride tab, PO, 018 [place] 100 MG Oral Bedtime, # Tablet 30 tab, 0 Refill(s) metoprolol 50 mg = 1 Active tartrate 50 mg tab, PO, 018 [facility] BID, # 180 tab, 0 Refill(s) lisinopril 30 mg 30 mg = 1 Active oral tablet tab, PO, 018 [facility] Daily, # 30 tab, 0 Refill(s) Allergies, Adverse Reactions, Alerts No Known Medication Allergies Immunizations No Data Provided for This Section Results Order Name Results Value Reference Date Interpretation Comments Thelma rce Range SPECIAL Hgb A1C 5.8 <=5.6 % 07/12 CHEMISTRY /2017 [facility] BLOOD BANK Antibody Negative 07/12 RESULTS Scrn (07/12/18 11:58 AM) [facility] BLOOD BANK ABO/Rh O POS 07/12 RESULTS /2018 [facility] ELECTROLYTE AGAP 10.2 10.0 - 07/12 S 20.0 [facility] ELECTROLYTE eGFR 19 07/12 Result S /2017 Comment: The [facility] eGFR is calculated using the CKD-EPI [...] 8.0 8.5 - 10.5 07/12 S /2017 [facility] ELECTROLYTE CO2 26 24 - 32 07/12 S /2017 [facility] ELECTROLYTE Creatinine 3.53 0.50 - 07/12 S Lvl 1.40 [facility] ELECTROLYTE BUN 33 7 - 22 09 S /2017 [facility] ELECTROLYTE Glucose Lvl 86 70 - 99 / S /2017 [facility] ELECTROLYTE Chloride Lvl 108 95 - 109 07/12 S /2017 [facility] ELECTROLYTE Sodium Lvl 139 135 - 145 09/ S /2017 [facility] ELECTROLYTE Potassium 5.2 3.5 - 5.1 07/12 S Lvl /2017 [facility] HEMATOLOGY PTT 34.8 22.9 - 07/12 MH 35.8 /2017 [facility] HEMATOLOGY INR 0.94 0.85 - 07/12 MH 1.17 /2017 [facility] HEMATOLOGY PT 12.6 12.0 - 07/12 MH 14.7 /2017 [facility] HEMATOLOGY Platelet 259 133 - 450 09 /2017 [facility] HEMATOLOGY MPV 7.6 7.4 - 10.4 09 /2017 [facility] HEMATOLOGY Hct 37.0 42.0 - 07/12 54.0 /2017 [facility] HEMATOLOGY MCH 27.0 27.0 - 07/12 31.0 /2017 [facility] HEMATOLOGY MCHC 32.7 32.0 - 07/12 36.0 /2017 [facility] HEMATOLOGY RDW 15.7 11.5 - 07/12 14.5 /2017 [facility] HEMATOLOGY MCV 82.5 80.0 - 07/12 94.0 /2017 [facility] HEMATOLOGY Hgb 12.1 14.0 - 07/12 18.0 /2017 [facility] HEMATOLOGY RBC 4.49 4.70 - 07/12 6.10 /2017 [facility] HEMATOLOGY WBC 10.7 3.7 - 10.4 07/12 /2017 [facility] HEMATOLOGY Basophils 0.6 0.0 - 1.0 07/12 /2017 [facility] HEMATOLOGY Eosinophils 4.6 0.0 - 4.0 07/12 /2017 [facility] HEMATOLOGY Neutrophils 7.0 1.5 - 8.1 07/12 MH # /2018 [facility] HEMATOLOGY Lymphocytes 2.4 1.0 - 5.5 07/12 # /2017 [facility] HEMATOLOGY Monocytes # 0.8 0.0 - 0.8 09 /2017 [facility] HEMATOLOGY Lymphocytes 22.5 20.0 - 09 40.0 /2017 [facility] HEMATOLOGY Monocytes 7.2 2.0 - 12.0 07/12 /2017 [facility] HEMATOLOGY Eosinophils 0.5 0.0 - 0.5 07/12 # /2017 [facility] HEMATOLOGY Basophils # 0.1 0.0 - 0.2 07/12 [facility] HEMATOLOGY Segs 65.1 45.0 - 07/12 75.0 [facility] Pathology Reports No Data Provided for This Section Diagnostic Reports Report Value Date Source Chest 2 views DX Clinical Indication: Coughing - preop 8 [facility] Comparison: None FINDINGS: The PA and [...] evidence of acute cardiopu lmonary abnormality. SL: [id number] Consultation Notes No Data Provided for This Section Discharge Summaries No Data Provided for This Section History and Physicals No Data Provided for This Section Vital Signs Vital Sign Value Date Comments Source Respitory Rate 20 07/12/2018 [facility] Heart Rate 72 07/12/2018 [facility] Temperature Oral (F) 98 F 07/12/2018 [facility] Systolic (mm Hg) 136 [facility]12[facility] Di[facility] (mm Hg) 86 07/12/2018 [facility] st BMI Calculated 31.96 07/12/2018 [facility] Weight 103.955 07/12/2018 [facility] Height 180.34 cm 07/12/2018 [facility] Encounters Location Location Encounter Encounter Reason Attending ADM [place] Stat Source Details Type Number For Provider Date Date Visit [facility] [id number] Charly 07/12 07/12 Rob [facility]2017 [facility] Procedures Procedure Code Date Perfomer Comments Source Amputation [id number] [facility] Anterior spinal [id number] [facility] ast fusion for cervical spinal deformity BKA - Below knee [id number] [facility] amputation Insertion of [id number] [facility] tunnelled dialysis catheter using fluoroscopic guidance Knee replacement [id number] [facility] ORIF - Open [id number] [facility] reduction and internal fixation of fracture Tonsillectomy [id number] [facility] Assessment and Plan No Data Provided for This Section Plan of Care No Data Provided for This Section Social History Social History Date Source Social History TypeResponse 07/12/2018 [facility] Substance Abuse Use: Current. Type: Marijuana. Recreat ional Drug Route: Inhaled. Amount: 10 joints per day. Alcohol Past1 Smoking Status Current every day smoker; Type: marijuan a; Exposure to Tobacco Smoke self; Cigarette Smoking Last 365 Days Yes; Reg Smoking Cessation Counseling No2 entered on: 07/12/18 1quit 8 years snn505 joints per day Family History No Data Provided for This Section Advance Directives No Data Provided for This Section Functional Status No Data Provided for This Section
[2020-04-21 17:40] LABS: Basophils % 0.7 % (0-1.3); Hematocrit 33.9 % (39.6-49.0); Lymphocytes % 8.2 % (15.3-44.8); RBC Red Blood Cell Count 3.94 M/uL (4.33-5.43)
[2020-04-21] MEDS ORDERED: AMPICILLIN/SULBACT 3 GM in NA CHLORIDE 0.9% 100 ML IVPB ONE (18:00)
[2020-04-21 18:03] LABS: Albumin 2.8 g/dL (3.4-5.0); Bilirubin Total 0.4 mg/dL (0.2-1.0); Potassium 4.2 mmol/L (3.5-5.1); Protein, Total 6.6 g/dL (6.4-8.2)
--- NOTE | 2020-04-21 18:04 | ER ---
Nurse's Notes [facility] Name: Vladimir Maguire Age: 49 yrs Sex: Male : 1970 Arrival Date: 04/21/2020 Time: 16:09 Bed 7 Private MD: Murali Cotton Diagnosis: Other synovitis and tenosynovitis-left ringer finger;End stage renal disease-on hd t,th, sat Presentation: 04/21 16:15 Chief complaint: Patient states: Surgery 2 weeks ago. Left hand 4th digit is painful, ll1 black, and swollen since visit with his doctor yesterday. Coronavirus screen: Proceed with normal triage. Patient denies a cough. Patient denies shortness of breath or difficulty breathing. Patient denies measured and/or subjective temperature greater than 100.4F prior to today's visit. Patient denies travel on a cruise ship or to a country the [facility] currently lists as an affected area. Patient denies contact with known and/or suspected case of COVID-19. Ebola Screen: Patient denies travel to an Ebola-affected area in the 21 days before illness onset. Initial Sepsis Screen: Does the patient meet any 2 criteria? HR > 90 bpm. No. Patient's initial sepsis screen is negative. Risk Assessment: Do you want to hurt yourself or someone else?. Onset of symptoms was April 20, 2020. 16:15 Method Of Arrival: Ambulatory ll1 16:15 Acuity: GINA 3 ll1 19:16 Initial Sepsis Screen: Does the patient have a suspected source of infection? No. jd3 Patient's initial sepsis screen is negative. Historical: - Allergies: 16:17 No Known Allergies; ll1 - PMHx: 16:17 Hypertension; neuropathy; Renal Disease; Diabetes - NIDDM; Rheumatoid Arthritis; ll1 - PSHx: 16:17 upper neck fusion; amputated left big toe; BKA; wrist surgery; ll1 - Immunization history:: Last tetanus immunization: up to date. - Social history:: Smoking status: Patient denies any tobacco usage or history of. Patient uses street drugs, marijuana, Patient/guardian denies using alcohol. - Family history:: not pertinent. Screenin:02 Abuse screen: Denies threats or abuse. Nutritional screening: No deficits noted. em Tuberculosis screening: No symptoms or risk factors identified. Fall Risk None identified. Assessment: 17:02 General: Appears in no apparent distress. comfortable, Behavior is calm, cooperative, em appropriate for age, Denies fever. Pain: Complains of pain in left hand Pain currently is 9 out of 10 on a pain scale. Neuro: Level of Consciousness is awake, alert, obeys commands, Oriented to person, place, time, situation, Appropriate for age. Cardiovascular: Capillary refill < 3 seconds Patient's skin is warm and dry. Respiratory: Airway is patent Respiratory effort is even, unlabored, Respiratory pattern is regular, symmetrical. GI: Abdomen is flat. Derm: Skin is intact, is fragile, Skin is pink, warm \T\ dry. Musculoskeletal: Amputation of dorsal aspect of distal phalanx of left ring finger, dorsal aspect of middle phalanx of left ring finger, left hammond, anterior aspect of left ankle and dorsum of left foot. Capillary refill < 3 seconds, Range of motion: limited in PIP of left ring finger and MCP of left ring finger Swelling present in left hand and left arm. 18:12 Reassessment: request more pain medication after application of wet to dry dressing, em Dr. Mak notified of pt request, pt grimacing and uncomfortable. 19:13 General: Appears in no apparent distress. comfortable, Behavior is calm, cooperative, jd3 appropriate for age. Pain: Denies pain. Neuro: Level of Consciousness is awake, alert, obeys commands, Oriented to person, place, time, situation. Cardiovascular: Capillary refill < 3 seconds Patient's skin is warm and dry. Respiratory: Airway is patent Respiratory effort is even, unlabored, Respiratory pattern is regular, symmetrical. GI: Abdomen is non-distended. : No signs and/or symptoms were reported regarding the genitourinary system. EENT: No signs and/or symptoms were reported regarding the EENT system. Derm: Skin is intact, Skin is dry, Skin is normal, Skin temperature is warm. Musculoskeletal: Amputation of left leg below the knee and dorsal aspect of middle phalanx of left ring finger. Capillary refill < 3 seconds, Swelling present in left hand and left arm. 20:07 Reassessment: Patient appears in no apparent distress at this time. No changes from jd3 previously documented assessment. Patient and/or family updated on plan of care and expected duration. Pain level reassessed. Patient is alert, oriented x 3, equal unlabored respirations, skin warm/dry/pink. report given to Eliecer WOOD. Vital Signs: 16:15 BP 129 / 108; Pulse 91; Resp 18; Temp 98.0; Pulse Ox 100% ; Pain 9/10; ll1 17:20 BP 149 / 82; Pulse 86; Resp 18; Pulse Ox 97% on R/A; Pain 9/10; em 17:55 BP 155 / 83; Pulse 83; Resp 18; Pulse Ox 94% on R/A; Pain 6/10; em 18:53 BP 160 / 89; Pulse 80; Resp 18; Pulse Ox 97% on R/A; Pain 6/10; em 19:13 BP 172 / 99; Pulse 84; Resp 17 S; Pulse Ox 99% on R/A; jd3 ED Course: 16:09 Patient arrived in ED. ag5 16:10 Murali Cotton MD is Private Physician. ag5 16:17 Triage completed. ll1 16:18 Arm band placed on Patient placed in an exam room, on a stretcher. ll1 16:22 Milton Vo, NINA is Primary Nurse. em 16:29 Rocael aMk MD is Attending Physician. sukhjinder 17:02 Patient has correct armband on for positive identification. Bed in low position. Call em light in reach. Side rails up X2. Adult w/ patient. Pulse ox on. NIBP on. 17:[address] Jesus called and message left on his cell phone to call Dr. Mak for eb patient consultation. 17:15 EKG done, by ED staff, reviewed by Rocael Mak MD. kj1 17:20 Initial lab(s) drawn, by fl, sent to lab. Inserted saline lock: 20 gauge in right em antecubital area, using aseptic technique. Blood collected. 18:02 Chest Single View XRAY In Process Unspecified. EDMS 18:02 Hand Left 3 View XRAY In Process Unspecified. EDMS 18:03 Lana Moise MD is Hospitalizing Provider. sukhjinder 18:13 Dressings: 4X4s APPLIED WET TO DRY DRESSING 1812. kj1 20:07 No provider procedures requiring assistance completed. Patient admitted, IV remains in jd3 place. Administered Medications: 17:26 Drug: Zofran (Ondansetron) 4 mg Route: IVP; Site: right antecubital; em 18:00 Follow up: Response: No adverse reaction em 17:26 Drug: NS 0.9% 1000 ml Route: IV; Rate: 75 ml/hr; Site: right antecubital; em 20:08 Follow up: Response: No adverse reaction; IV Status: Infusion continued upon admission jd3 17:28 Drug: Dilaudid 1 mg Route: IVP; Site: right antecubital; em 18:00 Follow up: Response: No adverse reaction; Marked relief of symptoms; Pain is decreased em 17:30 Not Given (Physician Discretion): NS 0.9% 1000 ml IV at 125 ml/hr continuous em 18:00 Drug: Unasyn 3 grams Route: IVPB; Infused Over: 30 mins; Site: right antecubital; em 18:34 Follow up: Response: No adverse reaction; IV Status: Completed infusion; IV Intake: em 100ml 18:21 Drug: Dilaudid 0.5 mg Route: IVP; Site: right antecubital; em 18:45 Follow up: Response: No adverse reaction; Marked relief of symptoms; Pain is decreased; em RASS: Alert and Calm (0) 19:11 Drug: vancoMYCIN 1 grams Route: IVPB; Infused Over: 2 hrs; Site: right antecubital; jd3 20:08 Follow up: Response: No adverse reaction; IV Status: Infusion continued upon admission jd3 Intake: 18:34 IV: 100ml; Total: 100ml. em Outcome: 18:04 Decision to Hospitalize by Provider. sukhjinder 20:07 Admitted to Med/surg accompanied by tech, via stretcher, room 217, with chart, Report jd3 called to Eliecer WOOD 20:07 Condition: stable 20:07 Instructed on the need for admit, Demonstrated understanding of instructions. 20:20 Patient left the ED. shantelle Signatures: Dispatcher [employer] Rocael Rose MD MD cha Munoz, Edgar, RN RN Deshawn Oneill RN RN jd3 Botello, Elizabeth eb Gaskin, Ajare ag5 Mariel Torrez kj1 Rosalie Khan RN RN ll1
--- NOTE | 2020-04-21 18:04 | EDPHYS ---
Physician Documentation [facility] Name: Vladimir Maguire Age: 49 yrs Sex: Male : 1970 Arrival Date: 04/21/2020 Time: 16:09 Bed 7 Private MD: Murali Coyle ED Physician Rocael Mak HPI: 04/21 16:53 This 49 yrs old Male presents to ER via Ambulatory with complaints of Post sukhjinder Surgical Pain, Arm Swelling, Finger Pain. 16:53 The patient or guardian reports decreased range of motion, pain, swelling, tenderness. sukhjinder The complaints affect the left hand diffusely, PIP of left ring finger and MCP of left ring finger. Context: The problem was sustained at an unknown location. Onset: The symptoms/episode began/occurred 14 day(s) ago. Modifying factors: The symptoms are alleviated by nothing, elevation, the symptoms are aggravated by movement, dependent position. Severity of symptoms: At their worst the symptoms were moderate, in the emergency department the symptoms are unchanged. The patient has not experienced similar symptoms in the past. Historical: - Allergies: 16:17 No Known Allergies; ll1 - PMHx: 16:17 Hypertension; neuropathy; Renal Disease; Diabetes - NIDDM; Rheumatoid Arthritis; ll1 - PSHx: 16:17 upper neck fusion; amputated left big toe; BKA; wrist surgery; ll1 - Immunization history:: Last tetanus immunization: up to date. - Social history:: Smoking status: Patient denies any tobacco usage or history of. Patient uses street drugs, marijuana, Patient/guardian denies using alcohol. - Family history:: not pertinent. ROS: 16:53 Constitutional: Negative for fever, chills, and weight loss, Eyes: Negative for injury, sukhjinder pain, redness, and discharge, ENT: Negative for injury, pain, and discharge, Neck: Negative for injury, pain, and swelling, Cardiovascular: Negative for chest pain, palpitations, and edema, Respiratory: Negative for shortness of breath, cough, wheezing, and pleuritic chest pain, Abdomen/GI: Negative for abdominal pain, nausea, vomiting, diarrhea, and constipation, Back: Negative for injury and pain, : Negative for injury, bleeding, discharge, and swelling, Skin: Negative for injury, rash, and discoloration, Neuro: Negative for headache, weakness, numbness, tingling, and seizure, Psych: Negative for depression, anxiety, suicide ideation, homicidal ideation, and hallucinations, Allergy/Immunology: Negative for hives, rash, and allergies, Endocrine: Negative for neck swelling, polydipsia, polyuria, polyphagia, and marked weight changes, Hematologic/Lymphatic: Negative for swollen nodes, abnormal bleeding, and unusual bruising. 16:53 MS/extremity: Positive for decreased range of motion, erythema, pain, swelling, tenderness, of the lateral aspect of left hand, medial aspect of left hand, dorsal aspect of proximal phalanx of left ring finger and palmar aspect of proximal phalanx of left ring finger. Exam: 16:53 Constitutional: This is a well developed, well nourished patient who is awake, alert, sukhjinder and in no acute distress. Head/Face: Normocephalic, atraumatic. Eyes: Pupils equal round and reactive to light, extra-ocular motions intact. Lids and lashes normal. Conjunctiva and sclera are non-icteric and not injected. Cornea within normal limits. Periorbital areas with no swelling, redness, or edema. ENT: Nares patent. No nasal discharge, no septal abnormalities noted. Tympanic membranes are normal and external auditory canals are clear. Oropharynx with no redness, swelling, or masses, exudates, or evidence of obstruction, uvula midline. Mucous membranes moist. Neck: Trachea midline, no thyromegaly or masses palpated, and no cervical lymphadenopathy. Supple, full range of motion without nuchal rigidity, or vertebral point tenderness. No Meningismus. Chest/axilla: Normal chest wall appearance and motion. Nontender with no deformity. No lesions are appreciated. Cardiovascular: Regular rate and rhythm with a normal S1 and S2. No gallops, murmurs, or rubs. Normal PMI, no JVD. No pulse deficits. Respiratory: Lungs have equal breath sounds bilaterally, clear to auscultation and percussion. No rales, rhonchi or wheezes noted. No increased work of breathing, no retractions or nasal flaring. Abdomen/GI: Soft, non-tender, with normal bowel sounds. No distension or tympany. No guarding or rebound. No evidence of tenderness throughout. Back: No spinal tenderness. No costovertebral tenderness. Full range of motion. Male : Normal genitalia with no discharge or lesions. Neuro: Awake and alert, GCS 15, oriented to person, place, time, and situation. Cranial nerves II-XII grossly intact. Motor strength 5/5 in all extremities. Sensory grossly intact. Cerebellar exam normal. Normal gait. Psych: Awake, alert, with orientation to person, place and time. Behavior, mood, and affect are within normal limits. 16:53 Musculoskeletal/extremity: Extremities: grossly normal except: noted in the dorsal aspect of proximal phalanx of left ring finger and palmar aspect of proximal phalanx of left middle finger: decreased ROM, pain, swelling, tenderness, ROM: limited active range of motion due to pain, limited passive range of motion due to pain, Circulation is intact in all extremities. Severe pain noted. Compartment Syndrome exam of affected extremity: is normal. Tendon exam: postive for tenosynovitis. Vital Signs: 16:15 BP 129 / 108; Pulse 91; Resp 18; Temp 98.0; Pulse Ox 100% ; Pain 9/10; ll1 17:20 BP 149 / 82; Pulse 86; Resp 18; Pulse Ox 97% on R/A; Pain 9/10; em 17:55 BP 155 / 83; Pulse 83; Resp 18; Pulse Ox 94% on R/A; Pain 6/10; em 18:53 BP 160 / 89; Pulse 80; Resp 18; Pulse Ox 97% on R/A; Pain 6/10; em 19:13 BP 172 / 99; Pulse 84; Resp 17 S; Pulse Ox 99% on R/A; jd3 MDM: 16:29 Patient medically screened. [facility] 16:57 Data reviewed: vital signs, nurses notes, lab test result(s), EKG, radiologic studies, sukhjinder plain films. 16:57 Differential diagnosis: tendonitis. 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 Test interpretation: by ED physician or midlevel provider: ECG, plain radiologic studies. Counseling: I had a detailed discussion with the patient and/or guardian regarding: the historical points, exam findings, and any diagnostic results supporting the discharge/admit diagnosis, lab results, radiology results, the need to transfer to another facility, for higher level of care, [facility] does not immediately have the required specialist. Medication response: Zofran partially relieved the patient's nausea. dilaudid. 17:57 ED course: dw dr coyle, need a hand surgeon, dr jesus will take to the or in the sukhjinder am, will admit to dr agustin, sharrio after midnight. dr spicer is the school transportation director, , and monday. 19:30 Physician consultation: Bright Jesus MD and will see patient will take to or for sukhjinder debridement, npo after midnight. tomorrow. 04/21 16:51 Order name: CBC with Diff; Complete Time: 17:55 [facility] 04/21 16:51 Order name: Comprehensive Metabolic Panel; Complete Time: 19:30 [facility] 04/21 16:51 Order name: Chest Single View XRAY; Complete Time: 18:30 [facility] 04/21 16:51 Order name: Hand Left 3 View XRAY; Complete Time: 18:30 [facility] 04/21 18:06 Order name: Vancomycin, Peak; Complete Time: 18:40 [facility] 04/21 16:51 Order name: EKG; Complete Time: 16:52 [facility] 04/21 16:51 Order name: EKG - Nurse/Tech; Complete Time: 17:29 [facility] 04/21 18:09 Order name: Wound dressing: wet to dry; Complete Time: 18:13 [facility] Administered Medications: 17:26 Drug: Zofran (Ondansetron) 4 mg Route: IVP; Site: right antecubital; em 18:00 Follow up: Response: No adverse reaction em 17:26 Drug: NS 0.9% 1000 ml Route: IV; Rate: 75 ml/hr; Site: right antecubital; em 20:08 Follow up: Response: No adverse reaction; IV Status: Infusion continued upon admission jd3 17:28 Drug: Dilaudid 1 mg Route: IVP; Site: right antecubital; em 18:00 Follow up: Response: No adverse reaction; Marked relief of symptoms; Pain is decreased em 17:30 Not Given (Physician Discretion): NS 0.9% 1000 ml IV at 125 ml/hr continuous em 18:00 Drug: Unasyn 3 grams Route: IVPB; Infused Over: 30 mins; Site: right antecubital; em 18:34 Follow up: Response: No adverse reaction; IV Status: Completed infusion; IV Intake: em 100ml 18:21 Drug: Dilaudid 0.5 mg Route: IVP; Site: right antecubital; em 18:45 Follow up: Response: No adverse reaction; Marked relief of symptoms; Pain is decreased; em RASS: Alert and Calm (0) 19:11 Drug: vancoMYCIN 1 grams Route: IVPB; Infused Over: 2 hrs; Site: right antecubital; jd3 20:08 Follow up: Response: No adverse reaction; IV Status: Infusion continued upon admission jd3 Disposition: 04/21/20 18:04 Hospitalization ordered by Lana Moise for Inpatient Admission. Preliminary diagnosis are Other synovitis and tenosynovitis - left ringer finger, End stage renal disease - on hd t,th, sat. - Bed requested for Telemetry/MedSurg (Inpatient). - Status is Inpatient Admission. jd3 - Condition is Stable. - Problem is new. - Symptoms have improved. Signatures: Dispatcher [employer] Rocael Rose MD MD cha Munoz, Edgar RN RN Hank, Aki, FURNITURE REPAIR TECHNICIAN-C FURNITURE REPAIR TECHNICIAN-[facility] Deshawn Almeida RN RN j Janie Gomez Lynsay, RN RN ll1 Corrections: (The following items were deleted from the chart) 18:43 18:04 Hospitalization Ordered by Lana Moise MD for Inpatient Admission. Preliminary eb diagnosis is Other synovitis and tenosynovitis - left ringer finger; End stage renal disease - on hd t,th, sat. Bed requested for Telemetry/MedSurg (Inpatient). Status is Inpatient Admission. Condition is Stable. Problem is new. Symptoms have improved. [facility] : 18:43 04/21/2020 18:04 Hospitalization Ordered by Lana Moise MD for Inpatient jd3 Admission. Preliminary diagnosis is Other synovitis and tenosynovitis - left ringer finger; End stage renal disease - on hd t,th, sat. Bed requested for Telemetry/MedSurg (Inpatient). Status is Inpatient Admission. Condition is Stable. Problem is new. Symptoms have improved. eb
--- NOTE | 2020-04-21 18:07 | RAD REPORT ---
EXAM DESCRIPTION: RAD - Chest Single View - 04/21/2020 6:01 pm CLINICAL HISTORY: COUGH Chest pain. COMPARISON: Chest Pa And Lat (2 Views) dated 04/10/2020; Chest Single View dated 03/25/2019; Chest Sing le View dated 09/29/2018 FINDINGS: Portable technique limits examination quality. Linear subsegmental atelectasis is present in the left lung base with an elevated left hemidiaphragm. No focal consolidation typical of pneumonia seen. The heart is normal in size. No displaced fracture s.
--- NOTE | 2020-04-21 18:18 | RAD REPORT ---
EXAM DESCRIPTION: RAD - Hand Left 3 View - 04/21/2020 6:02 pm CLINICAL HISTORY: PAIN COMPARISON: No comparisons FINDINGS: Amputation is present of the fourth finger at the level of the middle phalanx. There may b e exposed bone in the region of the stump. Prominent soft tissue swelling is present involving the fo urth finger. Localized infection in this region is possible. Vascular atherosclerosis is present.
[2020-04-21] MEDS ORDERED: HYDROMORPHONE HCL 0.5 MG/0.5 ML INJ ONE (18:23)
[2020-04-21] MEDS ORDERED: VANCOMYCIN/NS 1 gm 1 GM/250 ML BAG IVPB ONE (20:00)
[2020-04-21] MEDS ORDERED: CEFTAZIDIME 2 GM/VIAL IV SCH (21:00)
[2020-04-21] MEDS ORDERED: ONDANSETRON 4 MG/2 ML VIAL IV PRN (21:29)
[2020-04-21] MEDS ORDERED: MORPHINE 2 MG/ML SYR IV PRN (21:29)
[2020-04-21] MEDS ORDERED: TRAMADOL HCL 50 MG TAB PO PRN (21:29)
[2020-04-21] MEDS ORDERED: CEFTRIAXONE 1 GM/NS 50 ML 1 GM/50 ML BAG IV SCH (21:29)
[2020-04-21] MEDS ORDERED: HYDROCODONE/APAP 7.5/325 MG TAB PO PRN (21:29)
[2020-04-21] MEDS ORDERED: ACETAMINOPHEN 500 MG TAB PO PRN (21:29)
[2020-04-21] MEDS: INSULIN -REGULAR HUMAN 50 UNIT/0.5 ML ML SQ SCH (21:29)
[2020-04-21] MEDS ORDERED: CEFTAZIDIME 1 GM VIAL ONE (22:28)
[2020-04-21] MEDS ORDERED: WATER FOR INJ,STERILE 10 ML ONE (22:51)
[2020-04-21] MEDS: CEFTRIAXONE/SWI 1gm 1 GM/10 ML SYR IV SCH (22:53)
[2020-04-21] MEDS: HEPARIN 5000 UNIT/ML 1 ML VIAL SQ SCH (22:59)
[2020-04-21 23:30] VITALS: BMI 31.2
[2020-04-22] MEDS ORDERED: HYDROMORPHONE HCL 1 MG/ML INJ IV PRN (02:20)
[2020-04-22 04:15] LABS: Absolute Lymphocytes (CBC) 1.2 K/uL (0.7-4.9); Basophils % 0.8 % (0-1.3); Hematocrit 33.3 % (39.6-49.0); Lymphocytes % 11.8 % (15.3-44.8); MPV 7.1 fL (7.6-11.3); RBC Red Blood Cell Count 3.89 M/uL (4.33-5.43)
[2020-04-22 04:30] LABS: Magnesium 2.2 mg/dL (1.8-2.4); Potassium 4.2 mmol/L (3.5-5.1)
--- NOTE | 2020-04-22 06:26 | EKG ---
Test Date: 2020-04-21 Test Time: 17:15:47 Venue Manager: SHANNON MEASUREMENT RESULTS: Intervals: Rate: 87 CA: 154 QRSD: 80 QT: 354 QTc: 425 [place]: P: 48 CA: 154 QRS: 29 T: 105 INTERPRETIVE STATEMENTS: Normal sinus rhythm Nonspecific ST and T wave abnormality Abnormal ECG Compared to ECG 04/10/2020 11:36:39 ST (T wave) deviation now present Electronically Signed On 04-22-20 06:24:24 CDT by Giuseppe Richmond
--- NOTE | 2020-04-22 06:39 | P.HP ---
Certification for Inpatient Patient admitted to: Inpatient With expected LOS: >2 Midnights Patient will require the following post-hospital care: None Practitioner: I am a practitioner with admitting privileges, knowledge of patient current condition, hospital course, and medical plan of care. Services: Services provided to patient in accordance with Admission requirements found in Title 42 Section 412.3 of the Code of Federal Regulations Patient History Date of Service: 04/21/20 Reason for admission: Osteomyelitis/infection of the left 4th digit History of Present Illness: Patient is a 49-year-old gentleman with a history of hypertension and diabetes who presented to the hospital with pain and fever. Patient's pain was in the 4th digit of the left hand. Patient recently had amputation of the distal phalanx of that 4th digit on the left hand. Patient has severe infection. Patient grew out multiple bacteria is including Proteus, Morganella, and Serratia. These were sensitive to cephalosporins. Patient was given vancomycin and cephalosporins in the emergency room. Patient is scheduled to see a hand surgeon tomorrow morning. Continue with IV antibiotic therapy and await evaluation by hand surgeon in the morning. Patient also has a history of hypertension, diabetes type 2, rheumatoid arthritis, and renal cell carcinoma. Patient will need close evaluation in the hospital. Allergies No Known Allergies Allergy (Verified 04/21/20 22:07) Home Medications: Calcium Acetate 667 mg PO TID 03/25/19 Clonidine HCl [Clonidine HCl ER] 0.1 mg PO TID 03/25/19 Doxazosin Mesylate [Cardura] 8 mg PO BID 03/25/19 Hydrocodone/Acetaminophen [Hydrocodone-Acetamin 5-325 mg] 1 tab PO TID 03/25/19 Metoprolol Succinate [Toprol Xl] 50 mg PO BID 03/25/19 NIFEdipine [Nifedipine ER] 90 mg PO DAILY 03/25/19 carisoprodoL [Carisoprodol] 350 mg PO BEDTIME 03/25/19 lisinopriL [Lisinopril] 30 mg PO BID 03/25/19 Metformin HCl [Glucophage*] 500 mg PO BID 04/10/20 - Past Medical/Surgical History Has patient received pneumonia vaccine in the past: Yes Diabetic: Yes -: HTN -: rheumatoid arthritis -: kidney failure -: R kidney cancer -: Type 2 diabetes -: total knee replacement -: L little toe amputation -: BKA R -: upper neck fusion with broken screws -: wrist surgery -: R kidney removal -: left hand urgery - Family History Mother Medical History: Other (see notes) Notes: no known medical history - Social History Smoking Status: Current some day smoker Alcohol use: No CD- Drugs: Yes Caffeine use: Yes Place of Residence: Home Review of Systems 10-point ROS is otherwise unremarkable Physical Examination - Vital Signs Temperature: 98.1 F Blood Pressure: 181/88 Pulse: 82 Respirations: 20 Pulse Ox (%): 95 - Physical Exam General: Alert, In no apparent distress, Oriented x3 HEENT: Atraumatic, PERRLA, Mucous membr. moist/pink, EOMI, Sclerae nonicteric Neck: Supple, 2+ carotid pulse no bruit, No LAD, Without JVD or thyroid abnormality Respiratory: Clear to auscultation bilaterally, Normal air movement Cardiovascular: Regular rate/rhythm, Normal S1 S2, No murmurs Gastrointestinal: Normal bowel sounds, Soft and benign, Non-distended, No tenderness Musculoskeletal: Erythema, Tenderness (4th digit of left hand), Warmth Integumentary: No rashes Neurological: Normal gait, Normal speech, Normal strength at 5/5 x4 extr, Normal tone, Sensation intact, Cranial nerves 3-12 intact, Normal affect Lymphatics: No axilla or inguinal lymphadenopathy - Studies Laboratory Data (last 24 hrs) 04/21/20 17:15: Sodium 135 L, Potassium 4.2, BUN 15 D, Creatinine 6.58 H* D, Glucose 87, Total Bilirubin 0.4, AST 11 L, ALT 9 L, Alkaline Phosphatase 69 04/21/20 17:15: WBC 12.0 H D, Hgb 11.1 L, Hct 33.9 L, Plt Count 249 Assessment & Plan - Problems (Diagnosis) (1) Acute osteomyelitis of phalanx of left hand Current Visit: Yes Status: Acute (2) DM2 (diabetes mellitus, type 2) Current Visit: Yes Status: Acute Qualifiers: Diabetes mellitus intermediate teacher insulin use: with intermediate teacher use (3) End stage renal disease Current Visit: No Status: Chronic (4) Hypertension Current Visit: No Status: Chronic Qualifiers: (5) Tobacco abuse Current Visit: No Status: Chronic - Plan 1. Continue with IV antibiotic 2. Continue with local wound care 3. Hands surgical consultation 4. Gentle IV hydration 5. Monitor CBC 6. Strict blood sugar monitoring and strict blood pressure control 7. Pain control 8. Hemodialysis per Nephrology 9. GI and DVT prophylaxis Discharge Plan: Home Plan to discharge in: Greater than 2 days - Advance Directives Does patient have a Living Will: No Does patient have a Durable POA for Healthcare: No - Code Status/Comfort Care Code Status Assessed: Yes Code Status: Full Code Critical Care: No Time Spent Managing PTS Care (In Minutes): 45
--- NOTE | 2020-04-22 06:42 | P.PN ---
Subjective Date of Service: 04/22/20 Patient is doing better. Still with pain. To be evaluated by Hand surgery this morning. Possible surgical intervention today so we will keep patient NPO. Review of Systems 10-point ROS is otherwise unremarkable Physical Examination - Vital Signs Temperature: 98.1 F Blood Pressure: 181/88 Pulse: 82 Respirations: 20 Pulse Ox (%): 95 - Physical Exam General: Alert, In no apparent distress, Oriented x3 Respiratory: Clear to auscultation bilaterally, Normal air movement Cardiovascular: Regular rate/rhythm, Normal S1 S2 Gastrointestinal: Normal bowel sounds, Soft and benign, Non-distended, No tender ness Musculoskeletal: Erythema, Tenderness, Warmth - Studies Laboratory Data (last 24 hrs) 04/21/20 17:15: Sodium 135 L, Potassium 4.2, BUN 15 D, Creatinine 6.58 H* D, Glucose 87, Total Bilirubin 0.4, AST 11 L, ALT 9 L, Alkaline Phosphatase 69 04/21/20 17:15: WBC 12.0 H D, Hgb 11.1 L, Hct 33.9 L, Plt Count 249 Medications List Reviewed: Yes Assessment & Plan - Problems (Diagnosis) (1) Acute osteomyelitis of phalanx of left hand Current Visit: Yes Status: Acute (2) DM2 (diabetes mellitus, type 2) Current Visit: Yes Status: Acute Qualifiers: 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 Continue with IV antibiotic 2. Continue with local wound care 3. Hands surgical consultation 4. Gentle IV hydration 5. Monitor CBC 6. Strict blood sugar monitoring and strict blood pressure control 7. Pain control 8. Hemodialysis per Nephrology 9. GI and DVT prophylaxis - Advance Directives Does patient have a Living Will: No Does patient have a Durable POA for Healthcare: No - Code Status/Comfort Care Code Status: Full Code
[2020-04-22] MEDS: HYDROMORPHONE HCL 1 MG/ML INJ IV PRN ×6 (06:43→23:54)
[2020-04-22] MEDS: INSULIN -REGULAR HUMAN 50 UNIT/0.5 ML ML SQ SCH ×4 (07:30→21:00)
[2020-04-22] MEDS ORDERED: GLUCAGON 1 MG/VIAL IM PRN (07:57)
[2020-04-22] MEDS: D50W 25 GM/50 ML SYRINGE/VIAL IV PRN ×2 (08:19→12:01)
[2020-04-22] MEDS: CEFTRIAXONE/SWI 1gm 1 GM/10 ML SYR IV SCH ×2 (08:23→21:28)
[2020-04-22] MEDS: HEPARIN 5000 UNIT/ML 1 ML VIAL SQ SCH ×2 (08:24→21:28)
[2020-04-22] MEDS: HYDRALAZINE HCL 20 MG/ML VIAL IV PRN ×2 (09:37→21:28)
[2020-04-22] MEDS ORDERED: FENTANYL CITR 100 MCG/2 ML ONE (12:36)
[2020-04-22] MEDS ORDERED: LIDOCAINE 2% MPF 5 ML VIAL ONE (12:36)
[2020-04-22] MEDS ORDERED: propofoL 200 MG/20 ML VIAL IV ONE (12:36)
[2020-04-22] MEDS ORDERED: MIDAZOLAM HCL 2 MG/2 ML INJ ONE (12:36)
[2020-04-22] MEDS ORDERED: KETOROLAC 30 MG/ML INJ ONE (12:36)
[2020-04-22] MEDS ORDERED: NA CHLORIDE 0.9% 500 ML ONE (12:42)
[2020-04-22] MEDS ORDERED: CEFAZOLIN/SWI 1gm 1 GM/10 ML SYR ONE (12:59)
[2020-04-22] MEDS ORDERED: dexAMETHasone 10 MG/ML VIAL ONE (13:03)
[2020-04-22] MEDS ORDERED: CODEINE 30MG/APAP 300MG TAB PO PRN (15:10)
[2020-04-22] MEDS ORDERED: dexAMETHasone 10 MG/ML VIAL IM PRN (15:12)
[2020-04-22] MEDS ORDERED: HOME MED 1 EA UNK (Tizanidine Hcl [Tizanidine Hcl] 4 MG) PO PRN (15:22)
--- NOTE | 2020-04-22 15:30 | OP ---
Surgeon: Bright Jesus MD Preoperative Diagnosis: Gangrene and necrotic tissue of the left ring finger. Postoperative Diagnosis: Gangrene and necrotic tissue of the left ring finger. Procedure Performed: Debridement of skin and subcutaneous tissue and bone. Anesthesia: General. Description Of Procedure: After satisfactory induction of general anesthesia, left arm was prepped w ith Betadine scrub, Betadine paint, dry sterile drapes applied in the usual manner. Hand placed on r oll lock table. A scalpel was used to incise the open wounds of the previous amputation at the dista l portion of the middle phalanx. An incision was made ulnarly at the axilla and then at it reached t he hand, it zigzagged over the palm. There was pus present in the wound that was expressed and cultu res taken. The flexor tendons were involved with the purulence. The flexor sheath was opened, flexo r tendons were resected at the metacarpal head level. Portions of the distal bone were resected. Th is was done at the PIP joint and then the head of the proximal phalanx was taken with a rongeur. The wound was scrubbed with Betadine scrub brush, jet lavage irrigated with 3 L of dilute Betadine solut ion. Tourniquet was released and there was no significant bleeding. Very minor bleeding from the sk in edges, but no deep bleeding per se. The digital artery on the radial side was completely calcifie d, had minimal lumen. The dressings consisted of Betadine-soaked quarter-inch Nu Gauze, 2 inch Jose E and Kerlix. Patient tolerated the procedure well and returned to recovery. CATY/PJ Voice ID: [id number] Report ID: [id number]
[2020-04-22] MEDS ORDERED: TIZANIDINE 4 MG TABLET PO PRN (15:47)
--- NOTE | 2020-04-22 19:33 | P.CNS ---
Date of Consult: 04/22/20 Reason for Consult: ESRD Requesting Physician: Ayush Whitley Chief Complaint: Osteomyelitis/infection of the left 4th digit History of Present Illness: Patient is a 49-year-old gentleman with a history of hypertension and diabetes who presented to the hospital with pain and fever. Patient's pain was in the 4th digit of the left hand. Patient recently had amputation of the distal phalanx of that 4th digit on the left hand. Patient has severe infection. Patient grew out multiple bacteria is including Proteus, Morganella, and Serratia. These were sensitive to cephalosporins. Patient was given vancomycin and cephalosporins in the emergency room. Patient is scheduled to see a hand surgeon tomorrow morning. Continue with IV antibiotic therapy and await evaluation by hand surgeon in the morning. Patient also has a history of hypertension, diabetes type 2, rheumatoid arthritis, and renal cell carcinoma. 16:53 This 49 yrs old Male presents to ER via Ambulatory with complaints of Post sukhjinder Surgical Pain, Arm Swelling, Finger Pain. 16:53 The patient or guardian reports decreased range of motion, pain, swelling, tenderness. sukhjinder The complaints affect the left hand diffusely, PIP of left ring finger and MCP of left ring finger. Context: The problem was sustained at an unknown location. Onset: The symptoms/episode began/occurred 14 day(s) ago. Modifying factors: The symptoms are alleviated by nothing, elevation, the symptoms are aggravated by movement, dependent position. Severity of symptoms: At their worst the symptoms were moderate, in the emergency department the symptoms are unchanged. The patient has not experienced similar symptoms in the past. Allergies No Known Allergies Allergy (Verified 04/21/20 22:07) Home medications list reviewed: Yes Home Medications: Doxazosin Mesylate [Cardura] 2 mg PO BID 03/25/19 Hydrocodone/Acetaminophen [Hydrocodone-Acetamin 5-325 mg] 1 tab PO TID 03/25/19 Metoprolol Succinate [Toprol Xl] 50 mg PO BID 03/25/19 lisinopriL [Lisinopril] 20 mg PO BID 03/25/19 Amlodipine [Norvasc] 10 mg PO DAILY 04/22/20 Hyoscyamine Sulfate 0.125 mg SL TID 04/22/20 Tizanidine HCl 4 mg PO TID PRN 04/22/20 clonazePAM [Clonazepam] 1 mg PO BID 04/22/20 - Past Medical/Surgical History Diabetic: Yes -: HTN -: rheumatoid arthritis -: kidney failure -: R kidney cancer -: Type 2 diabetes -: total knee replacement -: L little toe amputation -: BKA R -: upper neck fusion with broken screws -: wrist surgery -: R kidney removal -: left hand urgery - Family History Mother Medical History: Other (see notes) Notes: no known medical history - Social History Alcohol use: No CD- Drugs: Yes Caffeine use: Yes Place of Residence: Home Review of Systems 10-point ROS is otherwise unremarkable General: Weakness, Malaise Musculoskeletal: Hand Pain Integumentary: Lesions Neurological: Weakness Physical Examination Temp Pulse Resp BP Pulse Ox 98.1 F 86 18 183/86 H 98 04/22/20 16:00 04/22/20 16:00 04/22/20 19:00 04/22/20 16:00 04/22/20 19:00 General: Oriented x3, Cooperative HEENT: Atraumatic Neck: Supple Respiratory: Clear to auscultation bilaterally, Normal air movement Cardiovascular: No edema, Regular rate/rhythm Gastrointestinal: Soft and benign, Non-distended Musculoskeletal: No clubbing, No contractures Integumentary: No rashes, No cyanosis Neurological: Normal speech Blood work reviewed in the chart. Imagings Data: EXAM DESCRIPTION: RAD - Chest Single View - 04/21/2020 6:01 pm CLINICAL HISTORY: COUGH Chest pain. COMPARISON: Chest Pa And Lat (2 Views) dated 04/10/2020; Chest Single View dated 03/25/2019; Chest Single View dated 09/29/2018 FINDINGS: Portable technique limits examination quality. Linear subsegmental atelectasis is present in the left lung base with an elevated left hemidiaphragm. No focal consolidation typical of pneumonia seen. The heart is normal in size. No displaced fractures. Conclusions/Impression: A/ ESRD on HD. Hyponatremia HTN with CKD/ CHF. Diastolic CHF, chronic. DM II with CKD. Anemia in CKD. ALEX/ Secondary HyperPTH. Moderate malnutrition Left 4th finger osteomyelitis P/ Continue current POC and Medications. Next HD on . Stop IVF once tolerating PO. Restart home medications as indicated. Retacrit PRN. Continue abx. Follow up with surgery. Wound care as ordered. No NSAIDs. AM labs. Daily weight. Thank you kindly for the consultation.
[2020-04-22] MEDS: METOPROLOL XL 50 MG TAB PO SCH (21:00)
[2020-04-22] MEDS: DOXAZOSIN 2 MG TAB PO SCH (21:00)
[2020-04-22] MEDS ORDERED: DOXAZOSIN MESYLATE 2 MG PO SCH (21:00)
[2020-04-22] MEDS: lisinopriL 20 MG TAB PO SCH (21:00)
[2020-04-22] MEDS ORDERED: HYOSCYAMINE SULFATE 0.125 MG SL SCH (21:00)
[2020-04-22] MEDS ORDERED: LISINOPRIL 20 MG PO SCH (21:00)
[2020-04-22] MEDS: HYOSCYAMINE SULF 0.125 MG TAB SL SCH (21:28)
[2020-04-22] MEDS: clonazePAM 1 MG TAB PO PRN (21:44)
[2020-04-23 04:11] LABS: Absolute Lymphocytes (CBC) 0.6 K/uL (0.7-4.9); Basophils % 0.6 % (0-1.3); Hematocrit 37.8 % (39.6-49.0); MPV 7.1 fL (7.6-11.3); RBC Red Blood Cell Count 4.41 M/uL (4.33-5.43)
[2020-04-23] MEDS: HYDROMORPHONE HCL 1 MG/ML INJ IV PRN ×6 (04:11→21:31)
[2020-04-23] MEDS: HYDRALAZINE HCL 20 MG/ML VIAL IV PRN ×2 (04:52→18:55)
[2020-04-23 04:55] LABS: Magnesium 2.3 mg/dL (1.8-2.4); Potassium 4.8 mmol/L (3.5-5.1)
[2020-04-23 05:09] LABS: Blood Morphology Comment NOT SEEN (NOT SEEN); Platelet Estimate ADEQ
[2020-04-23] MEDS: INSULIN -REGULAR HUMAN 50 UNIT/0.5 ML ML SQ SCH ×4 (07:30→21:00)
[2020-04-23] MEDS: HYOSCYAMINE SULF 0.125 MG TAB SL SCH ×3 (09:00→21:00)
[2020-04-23] MEDS: METOPROLOL XL 50 MG TAB PO SCH ×2 (09:35→21:32)
[2020-04-23] MEDS: AMLODIPINE 10 MG TAB PO SCH (09:35)
[2020-04-23] MEDS: DOXAZOSIN 2 MG TAB PO SCH ×2 (09:35→21:32)
[2020-04-23] MEDS: HEPARIN 5000 UNIT/ML 1 ML VIAL SQ SCH (09:36)
[2020-04-23] MEDS: CEFTRIAXONE/SWI 1gm 1 GM/10 ML SYR IV SCH (09:36)
[2020-04-23] MEDS: lisinopriL 20 MG TAB PO SCH ×2 (09:36→21:32)
[2020-04-23] MEDS ORDERED: NA CHLORIDE 0.9% 1,000 ML IV PRN (09:58)
[2020-04-23] MEDS ORDERED: MANNITOL 25% 12.5 GM/50 ML VIAL IV PRN (09:58)
[2020-04-23] MEDS ORDERED: ALBUMIN HUMAN 25% 50 ML IV SCH (10:00)
--- NOTE | 2020-04-23 11:05 | RAD REPORT ---
EXAM DESCRIPTION: US - Upper Ext Artery Bilateral - 04/23/2020 10:48 am CLINICAL HISTORY: post op Left hand and upper extremity pain COMPARISON: Hand Left 3 View dated 04/21/2020 FINDINGS: Sonographic Doppler interrogation of the right upper extremity arterial systems demonstrat es normal triphasic waveforms. No high-grade stenosis or occlusion seen. Left upper extremity arterial Doppler interrogation demonstrates a dialysis AV fistula in the left ar m region, suspected to be between the brachial artery and cephalic vein. There is very rapid patent b lood flow through the fistula noted. Flow to the distal right upper extremity including the left radi al and ulnar artery is shows blunted monophasic waveforms. This may indicate a steal phenomenon is oc srinath. IMPRESSION: Monophasic blunted waveforms in the left radial and ulnar arteries may indicate steal ph enomenon related to rapid flow through patent AV fistula. No occlusion is identified.
--- NOTE | 2020-04-23 12:26 | P.CNS ---
Date of Consult: 04/23/20 Patient is a 49 year old male who presents with pain to left hand and fever. Patient had amputation of 4th distal phalynx on left hand 3 weeks ago due to severe infection with multiple organisms. Patient found to have leukocytosis and osteomyelitis which I have been consulted for. Patient examined at bedside. Patient reports worsening of left hand surgical site with discoloration and pain. Past medical/surgical history: Hypertension, ESRD, diabetes mellitus, RA, and renal cell carcinoma to right kidney with removal of right kidney, TKR, Left pinky toe amputation Social history: Reports smokes Marijuana everyday, denies alcohol use Allergies: NKDA Active Medications Acetaminophen (Tylenol -Extra Strength) 500 mg PO Q4HP PRN PRN Reason: TEMP > 101' F Stop: 05/21/20 21:30 Acetaminophen/Codeine Phosphate (Tylenol W/Codeine #3 Tab) 1 tab PO Q4HR PRN PRN Reason: Pain scale 2-4 (Mild) Stop: 05/22/20 15:11 Hydrocodone Bitart/Acetaminophen ([place] 7.5/325 Mg) 1 tab PO Q6H PRN PRN Reason: Pain scale 5-7 (Moderate) Stop: 05/21/20 21:30 Amlodipine Besylate (Norvasc) 10 mg PO DAILY [facility] Stop: 05/23/20 09:01 Last Admin: 04/23/20 09:35 Dose: 10 mg Documented by: Clonazepam (Klonopin) 1 mg PO BID PRN PRN Reason: AGITATION Stop: 05/22/20 15:23 Last Admin: 04/22/20 21:44 Dose: 1 mg Documented by: Dexamethasone (Decadron) 10 mg IM Q4HP PRN PRN Reason: inflammation Stop: 05/22/20 15:13 Last Admin: 04/22/20 21:27 Dose: 10 mg Documented by: Dextrose (Dextrose 50% Syringe/Vial) 12.5 gm IV PRN PRN; Protocol PRN Reason: HYPOGLYCEMIA Stop: 05/22/20 07:57 Last Admin: 04/22/20 12:01 Dose: 12.5 gm Documented by: Doxazosin Mesylate (Cardura) 2 mg PO BID [facility] Stop: 05/22/20 21:01 Last Admin: 04/23/20 09:35 Dose: 2 mg Documented by: Glucagon (Glucagen) 1 mg IM 1X PRN; Protocol PRN Reason: HYPOGLYCEMIA Stop: 05/22/20 07:58 Heparin Sodium (Porcine) (Heparin 5,000 Units/Ml) 5,000 unit SQ Q12HR [facility] Stop: 05/21/20 21:30 Last Admin: 04/23/20 09:36 Dose: 5,000 unit Documented by: Heparin Sodium (Porcine) (Heparin 1,000 Units/Ml) 6,000 unit IV EVERY HD PRN PRN Reason: AFTER EACH Stop: 05/23/20 09:59 Heparin Sodium (Porcine) (Heparin 1,000 Units/Ml) 2,000 unit IV EVERY HD [facility] Stop: 04/28/20 11:01 Hydralazine HCl (Apresoline) 10 mg IV Q6HP PRN PRN Reason: Titrate to SBP (MUST DEFINE) Stop: 05/22/20 08:11 Last Admin: 04/23/20 04:52 Dose: 10 mg Documented by: Hydromorphone HCl (Dilaudid) 1 mg IV Q3H PRN PRN Reason: Pain scale 5-7 (Moderate) Stop: 05/22/20 02:21 Last Admin: 04/23/20 10:15 Dose: 1 mg Documented by: Hyoscyamine Sulfate (Levsin) 0.125 mg SL TID [facility] Stop: 05/22/20 21:01 Last Admin: 04/22/20 21:28 Dose: 0.125 mg Documented by: Ceftriaxone Sodium/Sodium Chloride (Rocephin 1 Gm/10 Ml Swi Ivp) 1 gm in 10 mls @ 20 mls/hr IV Q12HR ANALILIA; Protocol Stop: 05/21/20 23:01 Last Admin: 04/23/20 09:36 Dose: 10 mls Documented by: Sodium Chloride (Ns 1000 Ml Ivbag) 1,000 mls @ 0 mls/hr IV .Q0M PRN; Protocol PRN Reason: Priming and BP support at HD Stop: 04/23/20 23:59 Albumin Human (Albumin 25%) 50 mls @ 100 mls/hr IV EVERY HD ANALILIA Stop: 05/23/20 10:01 Insulin Human Regular (Novolin -R) 0 unit SQ ACHS ANALILIA; Protocol Stop: 05/21/20 21:30 Last Admin: 04/23/20 07:30 Dose: Not Given Documented by: Lisinopril (Prinivil) 20 mg PO BID [facility] Stop: 05/22/20 21:01 Last Admin: 04/23/20 09:36 Dose: 20 mg Documented by: Mannitol (Mannitol 12.5 Gm/50 Ml Vial) 12.5 gm IV EVERY HD PRN PRN Reason: Titrate to SBP (MUST DEFINE) Stop: 05/23/20 09:59 Metoprolol Succinate (Toprol Xl) 50 mg PO BID [facility] Stop: 05/22/20 21:01 Last Admin: 04/23/20 09:35 Dose: 50 mg Documented by: Ondansetron HCl (Zofran) 4 mg IV Q6HP PRN PRN Reason: NAUSEA / VOMITING Stop: 05/21/20 21:30 Sodium Chloride (Normal Saline Flush) 10 ml IV BID [facility] Stop: 05/21/20 21:30 Last Admin: 04/23/20 09:36 Dose: 10 ml Documented by: Tizanidine HCl (Zanaflex) 4 mg PO TID PRN PRN Reason: MUSCLE SPASMS Stop: 05/22/20 15:48 Tramadol HCl (Ultram) 50 mg PO TID PRN PRN Reason: Pain scale 2-4 (Mild) Stop: 05/21/20 21:30 ROS: CV: denies chest pain RESP: denies shortness of breath, cough : denies dysuria GI: denies nausea, diarrhea Extremities: Reports right BKA due to complications from diabetes Skin: Reports discoloration to left 4th finger Objective: Temp Pulse Resp BP Pulse Ox 99.3 F 102 H 18 179/88 H 99 04/23/20 08:00 04/23/20 09:36 04/23/20 10:15 04/23/20 09:36 04/23/20 10:15 Labs: Na 133, K 4.8, BUN 26, Creat 9.38, albumin 2.8, WBC 10, Hgb 12.4, Hct 37.8 Hand xray 04/21: EXAM DESCRIPTION: RAD - Hand Left 3 View - 04/21/2020 6:02 pm CLINICAL HISTORY: PAIN COMPARISON: No comparisons FINDINGS: Amputation is present of the fourth finger at the level of the middle phalanx. There may be exposed bone in the region of the stump. Prominent soft tissue swelling is present involving the fourth finger. Localized infection in this region is possible. Vascular atherosclerosis is present. Chest xray 04/21: EXAM DESCRIPTION: RAD - Chest Single View - 04/21/2020 6:01 pm CLINICAL HISTORY: COUGH Chest pain. COMPARISON: Chest Pa And Lat (2 Views) dated 04/10/2020; Chest Single View dated 03/25/2019; Chest Single View dated 09/29/2018 FINDINGS: Portable technique limits examination quality. Linear subsegmental atelectasis is present in the left lung base with an elevated left hemidiaphragm. No focal consolidation typical of pneumonia seen. The heart is normal in size. No displaced fractures. ROS: General: Awake, alert, oriented CV: S1,S2 RESP: Good breath sounds, room air ABD: Bowel sounds present, nontender Extremities: Right BKA with prosthetic, 1+ radial pulses Skin: Left 4th finger surgical site, dressing saturated with blood, edis area with no signs of infection. Reinforced dressing Assessment and plan: Fevers, resolved Leukocytosis, resolved Blood cultures pending Protein calorie malnourished, albumin 2.8 Left 4th phalynx osteomyelitis, s/p amputation of distal phalynx 3 weeks ago and I&D on 04/22 ESRD, on dialysis Diabetes mellitus, monitor glycemic control Currently on Rocephin, continue for total of 6 weeks Will continue to monitor Thank you for consult Patient discussed with Dr. Correia
--- NOTE | 2020-04-23 20:55 | P.PN ---
Subjective Date of Service: 04/23/20 Chief Complaint: Osteomyelitis/infection of the left 4th digit Subjective: No new changes, No C/O voiced Review of Systems General: Unremarkable Eyes: Unremarkable ENT: Unremarkable Respiratory: Unremarkable Cardiovascular: Unremarkable Gastrointestinal: Unremarkable Genitourinary: Unremarkable Musculoskeletal: Hand Pain, As per HPI Integumentary: As per HPI Neurological: Unremarkable Lymphatics: Unremarkable Physical Examination - Vital Signs Temperature: 98.8 F Blood Pressure: 181/91 Pulse: 84 Respirations: 16 Pulse Ox (%): 98 - Physical Exam General: Alert, In no apparent distress, Oriented x3 HEENT: Atraumatic, Normocephalic Neck: Supple Respiratory: Clear to auscultation bilaterally, Normal air movement Cardiovascular: No edema, Regular rate/rhythm, Normal S1 S2 Capillary refill: <2 Seconds Gastrointestinal: Normal bowel sounds, Soft and benign Musculoskeletal: No contractures, Other (surgical changes and dressing to affected hand) Integumentary: Erythema (to affected hand), Warmth Neurological: Normal speech, Normal tone, Normal affect Urinary: Dialysis catheter - Studies Medications List Reviewed: Yes Assessment & Plan Discharge Plan: Home Plan to discharge in: Greater than 2 days - Code Status/Comfort Care Code Status Assessed: Yes (pt is full code) Physician Review Additional Text: Assessment Osteomyelitis and flexor tenosynovitis of the left fourth finger S/P Incision and drainage with debridement ESRD on hemodialysis DMII on insulin therapy Hypertension Plan Osteomyelitis and flexor tenosynovitis of the left fourth finger S/P Incision and drainage with debridement: Pt is S/P surgical intervention for osteomyelitis and flexor tenosynovitis of the left fourth finger complicated by ESRD/HD and DMII. Hand surgeon left wound open and plans to close early next week. Pt with previous blood cultures with significant abx resistance and ESBL present. Pt will be started on Meropenum and will likely require 2 weeks of daily IV ABX. Will await results from current blood cultures and wound cultures obtained during surgery to help guide treatment further. Infectious disease also involved, will continue with their recommendations. DVT prophylaxis with heparin 5,000u Subq BID. Pt will likely require hospitalization until wound can be close early next week. ESRD on hemodialysis: Nephrology has been consulted on this case, will continue with their recommendations, pt will receive dialysis while in the hospital. Will continue to monitor labs and electrolytes DMII on insulin therapy: ACHS accuchecks in place, will continue with sliding scale insulin therapy. Hypertension: Will continue patients home medications and nephrology recommendations Critical Care: No Time Spent Managing Pts Care (In Minutes): 55
[2020-04-23] MEDS ORDERED: Meropenem 1000 MG/VIAL IV SCH (21:00)
[2020-04-23] MEDS: clonazePAM 1 MG TAB PO PRN (21:32)
--- NOTE | 2020-04-23 22:04 | P.PN ---
Date of Service: 04/23/20 Vital Signs Temp Pulse Resp BP Pulse Ox 98.8 F 84 16 181/91 H 98 04/23/20 21:03 04/23/20 21:03 04/23/20 21:03 04/23/20 21:03 04/23/20 21:03 Medications Acetaminophen (Tylenol -Extra Strength) 500 mg PO Q4HP PRN PRN Reason: TEMP > 101' F Stop: 05/21/20 21:30 Acetaminophen/Codeine Phosphate (Tylenol W/Codeine #3 Tab) 1 tab PO Q4HR PRN PRN Reason: Pain scale 2-4 (Mild) Stop: 05/22/20 15:11 Hydrocodone Bitart/Acetaminophen ([place] 7.5/325 Mg) 1 tab PO Q6H PRN PRN Reason: Pain scale 5-7 (Moderate) Stop: 05/21/20 21:30 Amlodipine Besylate (Norvasc) 10 mg PO DAILY [facility] Stop: 05/23/20 09:01 Last Admin: 04/23/20 09:35 Dose: 10 mg Documented by: Clonazepam (Klonopin) 1 mg PO BID PRN PRN Reason: AGITATION Stop: 05/22/20 15:23 Last Admin: 04/23/20 21:32 Dose: 1 mg Documented by: Dexamethasone (Decadron) 10 mg IM Q4HP PRN PRN Reason: inflammation Stop: 05/22/20 15:13 Last Admin: 04/22/20 21:27 Dose: 10 mg Documented by: Dextrose (Dextrose 50% Syringe/Vial) 12.5 gm IV PRN PRN; Protocol PRN Reason: HYPOGLYCEMIA Stop: 05/22/20 07:57 Last Admin: 04/22/20 12:01 Dose: 12.5 gm Documented by: Doxazosin Mesylate (Cardura) 2 mg PO BID [facility] Stop: 05/22/20 21:01 Last Admin: 04/23/20 21:32 Dose: 2 mg Documented by: Glucagon (Glucagen) 1 mg IM 1X PRN; Protocol PRN Reason: HYPOGLYCEMIA Stop: 05/22/20 07:58 Heparin Sodium (Porcine) (Heparin 5,000 Units/Ml) 5,000 unit SQ Q12HR [facility] Stop: 05/21/20 21:30 Last Admin: 04/23/20 09:36 Dose: 5,000 unit Documented by: Heparin Sodium (Porcine) (Heparin 1,000 Units/Ml) 6,000 unit IV EVERY HD PRN PRN Reason: AFTER EACH Stop: 05/23/20 09:59 Heparin Sodium (Porcine) (Heparin 1,000 Units/Ml) 2,000 unit IV EVERY HD [facility] Stop: 04/28/20 11:01 Hydralazine HCl (Apresoline) 10 mg IV Q6HP PRN PRN Reason: Titrate to SBP (MUST DEFINE) Stop: 05/22/20 08:11 Last Admin: 04/23/20 18:55 Dose: 10 mg Documented by: Hydromorphone HCl (Dilaudid) 1 mg IV Q3H PRN PRN Reason: Pain scale 5-7 (Moderate) Stop: 05/22/20 02:21 Last Admin: 04/23/20 21:31 Dose: 1 mg Documented by: Hyoscyamine Sulfate (Levsin) 0.125 mg SL TID [facility] Stop: 05/22/20 21:01 Last Admin: 04/23/20 14:00 Dose: Not Given Documented by: Sodium Chloride (Ns 1000 Ml Ivbag) 1,000 mls @ 0 mls/hr IV .Q0M PRN; Protocol PRN Reason: Priming and BP support at HD Stop: 04/23/20 23:59 Albumin Human (Albumin 25%) 50 mls @ 100 mls/hr IV EVERY HD [facility] Stop: 05/23/20 10:01 Insulin Human Regular (Novolin -R) 0 unit SQ ACHS [facility]; Protocol Stop: 05/21/20 21:30 Last Admin: 04/23/20 16:30 Dose: Not Given Documented by: Lisinopril (Prinivil) 20 mg PO BID [facility] Stop: 05/22/20 21:01 Last Admin: 04/23/20 21:32 Dose: 20 mg Documented by: Mannitol (Mannitol 12.5 Gm/50 Ml Vial) 12.5 gm IV EVERY HD PRN PRN Reason: Titrate to SBP (MUST DEFINE) Stop: 05/23/20 09:59 Meropenem (Merrem) 1,000 mg IV Q12HR [facility]; Protocol Stop: 05/23/20 21:01 Metoprolol Succinate (Toprol Xl) 50 mg PO BID [facility] Stop: 05/22/20 21:01 Last Admin: 04/23/20 21:32 Dose: 50 mg Documented by: Ondansetron HCl (Zofran) 4 mg IV Q6HP PRN PRN Reason: NAUSEA / VOMITING Stop: 05/21/20 21:30 Sodium Chloride (Normal Saline Flush) 10 ml IV BID [facility] Stop: 05/21/20 21:30 Last Admin: 04/23/20 09:36 Dose: 10 ml Documented by: Tizanidine HCl (Zanaflex) 4 mg PO TID PRN PRN Reason: MUSCLE SPASMS Stop: 05/22/20 15:48 Tramadol HCl (Ultram) 50 mg PO TID PRN PRN Reason: Pain scale 2-4 (Mild) Stop: 05/21/20 21:30 Assessment/ Plan: Nephrology CPS stable without CP or SOB. No acute events overnight. Feeling better. Vitals, medications, blood work and imaging reviewed in the chart. General: Oriented x3, Cooperative HEENT: Atraumatic Neck: Supple Respiratory: Clear to auscultation bilaterally, Normal air movement Cardiovascular: No edema, Regular rate/rhythm Gastrointestinal: Soft and benign, Non-distended Musculoskeletal: No clubbing, No contractures Integumentary: No rashes, No cyanosis Neurological: Normal speech Blood work reviewed in the chart. Imagings Data: EXAM DESCRIPTION: RAD - Chest Single View - 04/21/2020 6:01 pm CLINICAL HISTORY: COUGH Chest pain. COMPARISON: Chest Pa And Lat (2 Views) dated 04/10/2020; Chest Single View dated 03/25/2019; Chest Single View dated 09/29/2018 FINDINGS: Portable technique limits examination quality. Linear subsegmental atelectasis is present in the left lung base with an elevated left hemidiaphragm. No focal consolidation typical of pneumonia seen. The heart is normal in size. No displaced fractures. Conclusions/Impression: A/ ESRD on HD. Hyponatremia HTN with CKD/ CHF. Diastolic CHF, chronic. DM II with CKD. Anemia in CKD. ALEX/ Secondary HyperPTH. Moderate malnutrition Left 4th finger osteomyelitis P/ Continue current POC and Medications. Next HD on Monday. Retacrit PRN. Continue abx. Follow up with surgery. Wound care as ordered. No NSAIDs. AM labs. Daily weight.
[2020-04-24] MEDS: HEPARIN 5000 UNIT/ML 1 ML VIAL SQ SCH ×3 (00:14→20:24)
[2020-04-24] MEDS: HYDROMORPHONE HCL 1 MG/ML INJ IV PRN ×8 (00:43→23:28)
[2020-04-24 06:01] LABS: Magnesium 2.4 mg/dL (1.8-2.4); Potassium 4.4 mmol/L (3.5-5.1)
[2020-04-24 06:17] LABS: Absolute Lymphocytes (CBC) 1.8 K/uL (0.7-4.9); Basophils % 0.6 % (0-1.3); Hematocrit 34.4 % (39.6-49.0); Lymphocytes % 19.6 % (15.3-44.8); MPV 7.4 fL (7.6-11.3); RBC Red Blood Cell Count 4.01 M/uL (4.33-5.43)
[2020-04-24] MEDS: INSULIN -REGULAR HUMAN 50 UNIT/0.5 ML ML SQ SCH ×4 (07:30→20:25)
[2020-04-24] MEDS ORDERED: NA CHLORIDE 0.9% 1,000 ML ONE (08:15)
[2020-04-24] MEDS ORDERED: ONDANSETRON 4 MG/2 ML VIAL ONE (08:15)
[2020-04-24] MEDS: DOXAZOSIN 2 MG TAB PO SCH ×2 (08:23→20:24)
[2020-04-24] MEDS: METOPROLOL XL 50 MG TAB PO SCH ×2 (08:23→20:23)
[2020-04-24] MEDS: AMLODIPINE 10 MG TAB PO SCH (08:24)
[2020-04-24] MEDS: lisinopriL 20 MG TAB PO SCH ×2 (08:24→20:24)
[2020-04-24] MEDS: HYOSCYAMINE SULF 0.125 MG TAB SL SCH ×3 (08:30→20:25)
[2020-04-24] MEDS: Meropenem 500 MG in NA CHLORIDE 0.9% 100 ML IV SCH ×2 (08:43→20:23)
--- NOTE | 2020-04-24 09:39 | P.PN ---
Date of Service: 04/24/20 Patient is a 49 year old male who presents with pain to left hand and fever. Patient had amputation of 4th distal phalynx on left hand 3 weeks ago due to severe infection with multiple organisms. Patient found to have leukocytosis and osteomyelitis which I have been consulted for. Patient reports worsening of left hand surgical site with discoloration and pain. Patient examined at bedside. Denies nausea, diarrhea, shortness of breath and fever. Reports good appetite. Objective: Temp Pulse Resp BP Pulse Ox 97.9 F 71 16 181/88 H 95 04/24/20 08:00 04/24/20 08:24 04/24/20 08:55 04/24/20 08:24 04/24/20 08:55 Labs: Na 142, K 4.4, BUN 25, Creat 7.90, albumin 2.8, WBC 9.2, Hgb 11.1, Hct 34.4 Hand xray 04/21: EXAM DESCRIPTION: RAD - Hand Left 3 View - 04/21/2020 6:02 pm CLINICAL HISTORY: PAIN COMPARISON: No comparisons FINDINGS: Amputation is present of the fourth finger at the level of the middle phalanx. There may be exposed bone in the region of the stump. Prominent soft tissue swelling is present involving the fourth finger. Localized infection in this region is possible. Vascular atherosclerosis is present. Chest xray 04/21: EXAM DESCRIPTION: RAD - Chest Single View - 04/21/2020 6:01 pm CLINICAL HISTORY: COUGH Chest pain. COMPARISON: Chest Pa And Lat (2 Views) dated 04/10/2020; Chest Single View dated 03/25/2019; Chest Single View dated 09/29/2018 FINDINGS: Portable technique limits examination quality. Linear subsegmental atelectasis is present in the left lung base with an elevated left hemidiaphragm. No focal consolidation typical of pneumonia seen. The heart is normal in size. No displaced fractures. ROS: General: Awake, alert, oriented CV: S1,S2 RESP: Good breath sounds, room air ABD: Bowel sounds present, nontender Extremities: Right BKA with prosthetic, 1+ radial pulses Skin: Left 4th finger surgical open wound, edis area with discoloration and edema Assessment and plan: Fevers, resolved Leukocytosis, resolved Blood cultures show no growth to date Wound culture positive for proteus mirabilis Left 4th phalynx osteomyelitis, s/p amputation of distal phalynx 3 weeks ago and I&D on 04/22 ESRD, on dialysis Diabetes mellitus, monitor glycemic control Currently on Rocephin, recommend changing to Ceftazidime Patient to have closure of wound next week After further assessment of the wound, patient will need total of 4 weeks of Ceftazidime after wound closure Will continue to monitor Patient discussed with Dr. Correia
[2020-04-24] MEDS ORDERED: HYDROCODONE/APAP 10/325 TAB PO PRN (09:56)
[2020-04-24] MEDS: HYDRALAZINE HCL 20 MG/ML VIAL IV PRN (11:53)
--- NOTE | 2020-04-24 22:22 | P.PN ---
Date of Service: 04/24/20 Vital Signs Temp Pulse Resp BP Pulse Ox 97.5 F 80 18 175/86 H 99 04/24/20 16:00 04/24/20 20:24 04/24/20 20:55 04/24/20 20:24 04/24/20 20:55 Medications Acetaminophen (Tylenol -Extra Strength) 500 mg PO Q4HP PRN PRN Reason: TEMP > 101' F Stop: 05/21/20 21:30 Acetaminophen/Codeine Phosphate (Tylenol W/Codeine #3 Tab) 1 tab PO Q4HR PRN PRN Reason: Pain scale 2-4 (Mild) Stop: 05/22/20 15:11 Hydrocodone Bitart/Acetaminophen ([place] 10/325) 1 tab PO Q4H PRN PRN Reason: Pain scale 8-10 (Severe) Stop: 05/24/20 09:57 Amlodipine Besylate (Norvasc) 10 mg PO DAILY [facility] Stop: 05/23/20 09:01 Last Admin: 04/24/20 08:24 Dose: 10 mg Documented by: Clonazepam (Klonopin) 1 mg PO BID PRN PRN Reason: AGITATION Stop: 05/22/20 15:23 Last Admin: 04/23/20 21:32 Dose: 1 mg Documented by: Dexamethasone (Decadron) 10 mg IM Q4HP PRN PRN Reason: inflammation Stop: 05/22/20 15:13 Last Admin: 04/22/20 21:27 Dose: 10 mg Documented by: Dextrose (Dextrose 50% Syringe/Vial) 12.5 gm IV PRN PRN; Protocol PRN Reason: HYPOGLYCEMIA Stop: 05/22/20 07:57 Last Admin: 04/22/20 12:01 Dose: 12.5 gm Documented by: Doxazosin Mesylate (Cardura) 2 mg PO BID [facility] Stop: 05/22/20 21:01 Last Admin: 04/24/20 20:24 Dose: 2 mg Documented by: Glucagon (Glucagen) 1 mg IM 1X PRN; Protocol PRN Reason: HYPOGLYCEMIA Stop: 05/22/20 07:58 Heparin Sodium (Porcine) (Heparin 5,000 Units/Ml) 5,000 unit SQ Q12HR [facility] Stop: 05/21/20 21:30 Last Admin: 04/24/20 20:24 Dose: 5,000 unit Documented by: Heparin Sodium (Porcine) (Heparin 1,000 Units/Ml) 6,000 unit IV EVERY HD PRN PRN Reason: AFTER EACH Stop: 05/23/20 09:59 Heparin Sodium (Porcine) (Heparin 1,000 Units/Ml) 2,000 unit IV EVERY HD [facility] Stop: 04/28/20 11:01 Hydralazine HCl (Apresoline) 10 mg IV Q6HP PRN PRN Reason: Titrate to SBP (MUST DEFINE) Stop: 05/22/20 08:11 Last Admin: 04/24/20 11:53 Dose: 10 mg Documented by: Hydromorphone HCl (Dilaudid) 1 mg IV Q3H PRN PRN Reason: Pain scale 5-7 (Moderate) Stop: 05/22/20 02:21 Last Admin: 04/24/20 20:25 Dose: 1 mg Documented by: Hyoscyamine Sulfate (Levsin) 0.125 mg SL TID [facility] Stop: 05/22/20 21:01 Last Admin: 04/24/20 20:25 Dose: Not Given Documented by: Albumin Human (Albumin 25%) 50 mls @ 100 mls/hr IV EVERY HD [facility] Stop: 05/23/20 10:01 Meropenem 500 mg/ Sodium (Chloride) 100 mls @ 100 mls/hr IV Q12HR [facility] Stop: 05/24/20 09:01 Last Admin: 04/24/20 20:23 Dose: 100 mls Documented by: Insulin Human Regular (Novolin -R) 0 unit SQ ACHS [facility]; Protocol Stop: 05/21/20 21:30 Last Admin: 04/24/20 20:25 Dose: Not Given Documented by: Lisinopril (Prinivil) 20 mg PO BID [facility] Stop: 05/22/20 21:01 Last Admin: 04/24/20 20:24 Dose: 20 mg Documented by: Mannitol (Mannitol 12.5 Gm/50 Ml Vial) 12.5 gm IV EVERY HD PRN PRN Reason: Titrate to SBP (MUST DEFINE) Stop: 05/23/20 09:59 Metoprolol Succinate (Toprol Xl) 50 mg PO BID [facility] Stop: 05/22/20 21:01 Last Admin: 04/24/20 20:23 Dose: 50 mg Documented by: Ondansetron HCl (Zofran) 4 mg IV Q6HP PRN PRN Reason: NAUSEA / VOMITING Stop: 05/21/20 21:30 Sodium Chloride (Normal Saline Flush) 10 ml IV BID [facility] Stop: 05/21/20 21:30 Last Admin: 04/24/20 20:24 Dose: 10 ml Documented by: Tizanidine HCl (Zanaflex) 4 mg PO TID PRN PRN Reason: MUSCLE SPASMS Stop: 05/22/20 15:48 Tramadol HCl (Ultram) 50 mg PO TID PRN PRN Reason: Pain scale 2-4 (Mild) Stop: 05/21/20 21:30 Assessment/ Plan: Nephrology CPS stable without CP or SOB. No acute events overnight. Feeling better. Vitals, medications, blood work and imaging reviewed in the chart. General: Oriented x3, Cooperative HEENT: Atraumatic Neck: Supple Respiratory: Clear to auscultation bilaterally, Normal air movement Cardiovascular: No edema, Regular rate/rhythm Gastrointestinal: Soft and benign, Non-distended Musculoskeletal: No clubbing, No contractures Integumentary: No rashes, No cyanosis Neurological: Normal speech Blood work reviewed in the chart. Imagings Data: EXAM DESCRIPTION: RAD - Chest Single View - 04/21/2020 6:01 pm CLINICAL HISTORY: COUGH Chest pain. COMPARISON: Chest Pa And Lat (2 Views) dated 04/10/2020; Chest Single View dated 03/25/2019; Chest Single View dated 09/29/2018 FINDINGS: Portable technique limits examination quality. Linear subsegmental atelectasis is present in the left lung base with an elevated left hemidiaphragm. No focal consolidation typical of pneumonia seen. The heart is normal in size. No displaced fractures. Conclusions/Impression: A/ ESRD on HD. Hyponatremia HTN with CKD/ CHF. Diastolic CHF, chronic. DM II with CKD. Anemia in CKD. ALEX/ Secondary HyperPTH. Moderate malnutrition Left 4th finger osteomyelitis P/ Continue current POC and Medications. Next HD on Monday. Retacrit PRN. Continue abx. Follow up with surgery. Wound care as ordered. No NSAIDs. AM labs. Daily weight.
[2020-04-25] MEDS: HYDROMORPHONE HCL 1 MG/ML INJ IV PRN ×7 (02:32→22:20)
[2020-04-25] MEDS: INSULIN -REGULAR HUMAN 50 UNIT/0.5 ML ML SQ SCH ×4 (07:30→21:00)
[2020-04-25] MEDS: HEPARIN 5000 UNIT/ML 1 ML VIAL SQ SCH ×2 (08:57→21:14)
[2020-04-25] MEDS: HYOSCYAMINE SULF 0.125 MG TAB SL SCH ×2 (08:57→14:00)
[2020-04-25] MEDS: METOPROLOL XL 50 MG TAB PO SCH ×2 (09:00→19:18)
[2020-04-25] MEDS: DOXAZOSIN 2 MG TAB PO SCH ×2 (09:00→19:19)
[2020-04-25] MEDS: AMLODIPINE 10 MG TAB PO SCH ×2 (09:00→19:19)
[2020-04-25] MEDS: lisinopriL 20 MG TAB PO SCH ×2 (09:00→19:18)
[2020-04-25] MEDS: Meropenem 500 MG in NA CHLORIDE 0.9% 100 ML IV SCH ×2 (09:02→21:14)
[2020-04-25] MEDS: HYDRALAZINE HCL 20 MG/ML VIAL IV PRN ×3 (11:46→23:51)
--- NOTE | 2020-04-25 13:52 | P.PN ---
Subjective Date of Service: 04/25/20 Chief Complaint: Osteomyelitis/infection of the left 4th digit Subjective: Doing well Physical Examination - Vital Signs Temperature: 97.8 F Blood Pressure: 150/80 Pulse: 71 Respirations: 19 Pulse Ox (%): 94 - Physical Exam General: Alert, In no apparent distress, Oriented x3, Cooperative HEENT: Atraumatic Neck: Supple Respiratory: Clear to auscultation bilaterally, Normal air movement Cardiovascular: Normal pulses, Regular rate/rhythm Integumentary: Other (Left hand bandaged) Neurological: Normal speech, Normal strength at 5/5 x4 extr, Normal tone - Studies Medications List Reviewed: Yes Assessment & Plan Discharge Plan: Home Plan to discharge in: Greater than 2 days Physician Review Additional Text: Assessment Osteomyelitis and flexor tenosynovitis of the left fourth finger S/P Incision and drainage with debridement with current wound culture positive for Proteus, prior wound culture positive for Proteus-ESBL, Serratia, Citrobacter ESRD on hemodialysis DMII insulin-dependent Hypertension Plan Osteomyelitis and flexor tenosynovitis of the left fourth finger S/P Incision and drainage with debridement with current wound culture positive for Proteus, prior wound culture positive for Proteus-ESBL, Serratia, Citrobacter: Continue current IV antibiotic therapy. Patient will have surgery in on Monday for likely irrigation and debridement with possible closure. Case discussed at length with infectious disease. Patient will require IV Fortaz for 4 weeks after surgery. Will need to arrange this to continue in dialysis. Continue pain control. Patient stable this time. Anticipate discharge once closure of wound has been done. ESRD on hemodialysis: Continue nephrology recommendation. Patient will continue with dialysis again today. DMII insulin dependent: ACHS accuchecks in place, will continue with sliding scale insulin therapy. Hypertension: Continue medication Time Spent Managing Pts Care (In Minutes): 55
--- NOTE | 2020-04-25 13:54 | P.PN ---
Subjective Date of Service: 04/24/20 Chief Complaint: Osteomyelitis/infection of the left 4th digit Subjective: Doing well Physical Examination - Vital Signs Temperature: 97.8 F Blood Pressure: 150/80 Pulse: 71 Respirations: 19 Pulse Ox (%): 94 - Physical Exam General: Alert, Cooperative HEENT: Atraumatic Neck: Supple Respiratory: Clear to auscultation bilaterally, Normal air movement Cardiovascular: Normal pulses, Regular rate/rhythm Neurological: Normal speech, Normal affect Other Physical/Emotional Findings: Patient seen and examined on 04/24/2020. I forgot to put in note. This is the note for 04/24/2020. - Studies Medications List Reviewed: Yes Assessment & Plan Discharge Plan: Home Plan to discharge in: Greater than 2 days Physician Review Additional Text: Assessment Osteomyelitis and flexor tenosynovitis of the left fourth finger S/P Incision and drainage with debridement with current wound culture positive for Proteus, prior wound culture positive for Proteus-ESBL, Serratia, Citrobacter ESRD on hemodialysis DMII insulin-dependent Hypertension Plan Osteomyelitis and flexor tenosynovitis of the left fourth finger S/P Incision and drainage with debridement with current wound culture positive for Proteus, prior wound culture positive for Proteus-ESBL, Serratia, Citrobacter: Patient requesting more food. Will arrange. Continue current IV antibiotic therapy. Patient will have surgery in on Monday for likely irrigation and debridement with possible closure. Case discussed at length with infectious disease. Patient will require IV Fortaz for 4 weeks after surgery. Will need to arrange this to continue in dialysis. Continue pain control. Patient stable this time. Anticipate discharge once closure of wound has been done. ESRD on hemodialysis: Continue nephrology recommendation. Patient will continue with dialysis again today. DMII insulin dependent: ACHS accuchecks in place, will continue with sliding scale insulin therapy. Will arrange for patient to obtain more food. Hypertension: Continue medication Time Spent Managing Pts Care (In Minutes): 55
--- NOTE | 2020-04-25 14:36 | P.PN ---
Subjective Date of Service: 04/25/20 Chief Complaint: Osteomyelitis/infection of the left 4th digit dialysis today. please see dialysis flow sheets. Physical Examination - Vital Signs Temperature: 97.8 F Blood Pressure: 150/80 Pulse: 71 Respirations: 19 Pulse Ox (%): 94 - Physical Exam Other Physical/Emotional Findings: Patient seen and examined on 04/24/2020. I forgot to put in note. This is the note for 04/24/2020. - Studies Medications List Reviewed: Yes Assessment And Plan Physician Review Additional Text: Assessment Osteomyelitis and flexor tenosynovitis of the left fourth finger S/P Incision and drainage with debridement with current wound culture positive for Proteus, prior wound culture positive for Proteus-ESBL, Serratia, Citrobacter ESRD on hemodialysis DMII insulin-dependent Hypertension Plan Osteomyelitis and flexor tenosynovitis of the left fourth finger S/P Incision and drainage with debridement with current wound culture positive for Proteus, prior wound culture positive for Proteus-ESBL, Serratia, Citrobacter: Patient requesting more food. Will arrange. Continue current IV antibiotic therapy. Patient will have surgery in on Monday for likely irrigation and debridement with possible closure. Case discussed at length with infectious disease. Patient will require IV Fortaz for 4 weeks after surgery. Will need to arrange this to continue in dialysis. Continue pain control. Patient stable this time. Anticipate discharge once closure of wound has been done. ESRD on hemodialysis: Continue nephrology recommendation. Patient will continue with dialysis again today. DMII insulin dependent: ACHS accuchecks in place, will continue with sliding scale insulin therapy. Will arrange for patient to obtain more food. Hypertension: Continue medication
[2020-04-26] MEDS: INSULIN -REGULAR HUMAN 50 UNIT/0.5 ML ML SQ SCH ×4 (07:30→21:00)
[2020-04-26] MEDS: lisinopriL 20 MG TAB PO SCH ×2 (07:57→21:27)
[2020-04-26] MEDS: AMLODIPINE 10 MG TAB PO SCH (07:57)
[2020-04-26] MEDS: DOXAZOSIN 2 MG TAB PO SCH ×2 (07:57→21:26)
[2020-04-26] MEDS: HYDROMORPHONE HCL 1 MG/ML INJ IV PRN ×5 (07:58→21:28)
[2020-04-26] MEDS: METOPROLOL XL 50 MG TAB PO SCH ×2 (07:58→21:26)
[2020-04-26] MEDS: HEPARIN 5000 UNIT/ML 1 ML VIAL SQ SCH ×2 (08:00→21:27)
[2020-04-26] MEDS: Meropenem 500 MG in NA CHLORIDE 0.9% 100 ML IV SCH ×2 (08:08→21:27)
[2020-04-26] MEDS: HYDRALAZINE HCL 20 MG/ML VIAL IV PRN (08:54)
[2020-04-26] MEDS ORDERED: HYDROMORPHONE HCL 1 MG/ML INJ IV ONE (09:00)
--- NOTE | 2020-04-26 11:43 | P.PN ---
Subjective Date of Service: 04/26/20 Chief Complaint: Osteomyelitis/infection of the left 4th digit Subjective: No new changes (Left hand dressing changed. Pain medications adjusted due to excruciating pain.) Physical Examination - Vital Signs Temperature: 97.4 F Blood Pressure: 140/80 Pulse: 99 Respirations: 18 Pulse Ox (%): 98 - Physical Exam General: Cooperative, Severe distress HEENT: Atraumatic, Normocephalic, EOMI Neck: Supple Respiratory: Clear to auscultation bilaterally, Normal air movement Cardiovascular: No edema, Normal pulses, Regular rate/rhythm, Normal S1 S2 Gastrointestinal: Normal bowel sounds, Soft and benign, Non-distended Musculoskeletal: Other (R BKA. Left hand with 4th toe partial ampuation. No purulence or foul-smelling odor. Packing in place. ) Neurological: Normal speech, Sensation intact, Normal affect Other Physical/Emotional Findings: Patient seen and examined on 04/24/2020. I forgot to put in note. This is the note for 04/24/2020. - Studies Medications List Reviewed: Yes Assessment & Plan Physician Review Additional Text: Assessment Patient is a 49 year old male with kown PMH of Type II diabetes mellitus s/p R BKA, ESRD on HD TTS and recent 4th digit amputation that became infected and failed outpatient TX. He returned to the hospital with worsenign left 4 digit infection. Wound cultures during this admission showed ESBL Proteus mirabillis, serratia and citrobacter. ORTHO Hand evaluated the patient. Patient underwent I&D for osteomyelitis and flexor tenosynovitis. Osteomyelitis and flexor tenosynovitis of the left fourth finger S/P Incision and drainage with debridement with current wound culture positive for Proteus, prior wound culture positive for Proteus-ESBL, Serratia, Citrobacter ESRD on hemodialysis DMII insulin-dependent Hypertension Plan Change dressing this morning Multi-modal pain regimen for uncontrolled pain OR tomorrow for repeat wash out and possible wound closure Continue meropenem for now, transition to ceftazidime upon discharge. ID anticipates a 4-week TX. Adjust BP meds for uncontrolled BP Nephrology on board for inpatient HD Monitor blood glucose, continue insulin sliding scale
[2020-04-26] MEDS: HYDROCODONE/APAP 5/325 MG TAB PO SCH (21:00)
[2020-04-26] MEDS: clonazePAM 1 MG TAB PO PRN (22:53)
[2020-04-27] MEDS: HYDROMORPHONE HCL 1 MG/ML INJ IV PRN ×5 (01:52→20:36)
[2020-04-27] MEDS: HYDRALAZINE HCL 20 MG/ML VIAL IV PRN (06:01)
[2020-04-27] MEDS: INSULIN -REGULAR HUMAN 50 UNIT/0.5 ML ML SQ SCH ×4 (07:30→20:42)
[2020-04-27] MEDS: AMLODIPINE 10 MG TAB PO SCH (09:00)
[2020-04-27] MEDS: METOPROLOL XL 50 MG TAB PO SCH ×2 (09:00→20:35)
[2020-04-27] MEDS: HYDROCODONE/APAP 5/325 MG TAB PO SCH ×3 (09:00→20:24)
[2020-04-27] MEDS: HEPARIN 5000 UNIT/ML 1 ML VIAL SQ SCH ×2 (09:00→20:23)
[2020-04-27] MEDS: DOXAZOSIN 2 MG TAB PO SCH ×2 (09:00→20:24)
[2020-04-27] MEDS: lisinopriL 20 MG TAB PO SCH ×2 (09:00→20:35)
[2020-04-27] MEDS ORDERED: HYDROMORPHONE HCL 1 MG/ML INJ IV ONE ×2 (09:29→14:20)
[2020-04-27] MEDS ORDERED: MEPERIDINE HCL 25 MG/ML SYR IM ONE (10:57)
[2020-04-27] MEDS: Meropenem 500 MG in NA CHLORIDE 0.9% 100 ML IV SCH ×2 (11:03→20:23)
--- NOTE | 2020-04-27 11:27 | P.PN ---
Subjective Date of Service: 04/27/20 Chief Complaint: Osteomyelitis/infection of the left 4th digit Subjective: Other (Patient upset this morning. Patient was to have packing to his left 4th digit removed. He prefers to have a digital block or pain medication prior to this be done.) Physical Examination - Vital Signs Temperature: 98 F Blood Pressure: 159/87 Pulse: 84 Respirations: 20 Pulse Ox (%): 99 - Physical Exam General: Alert, In no apparent distress, Other (Patient appears upset) HEENT: Atraumatic Neck: Supple Respiratory: Clear to auscultation bilaterally, Normal air movement Cardiovascular: Normal pulses, Regular rate/rhythm Gastrointestinal: Normal bowel sounds, Soft and benign, Non-distended Integumentary: Other (Bandages off the left hand. Packing in place to the left 4th digit. Pain with palpation.) Neurological: Normal speech, Normal strength at 5/5 x4 extr, Normal tone - Studies Medications List Reviewed: Yes Assessment & Plan Discharge Plan: Home Plan to discharge in: 48 Hours Physician Review Additional Text: Assessment Patient is a 49 year old male with kown PMH of Type II diabetes mellitus s/p R BKA, ESRD on HD TTS and recent 4th digit amputation that became infected and failed outpatient TX. He returned to the hospital with worsenign left 4 digit infection. Wound cultures during this admission showed ESBL Proteus mirabillis, serratia and citrobacter. ORTHO Hand evaluated the patient. Patient underwent I&D for osteomyelitis and flexor tenosynovitis. Osteomyelitis and flexor tenosynovitis of the left fourth finger S/P Incision and drainage with debridement with current wound culture positive for Proteus, prior wound culture positive for Proteus-ESBL, Serratia, Citrobacter ESRD on hemodialysis DMII insulin-dependent Hypertension Plan Will discuss with plastic surgery about the possibility of doing a digital block for removal of packing or providing medication prior to removal of packing. Patient prefers digital block or this to be done under anesthesia. Will discuss further. Continue with current antibiotic therapy. Patient will need to transition to ceftazidime DN upon discharge during that dialysis to cover for infection. Patient will likely require 4 weeks of treatment. Continue blood pressure medication. Will discuss further with nephrology. I will turn the service over to the hospitalist team tomorrow. I will go the plan of care with him. Time Spent Managing Pts Care (In Minutes): 55
[2020-04-27] MEDS ORDERED: HYDROMORPHONE HCL 2 MG/ML inj IV ONE (14:19)
--- NOTE | 2020-04-27 15:14 | P.PN ---
Date of Service: 04/27/20 Patient is a 49 year old male who presents with pain to left hand and fever. Patient had amputation of 4th distal phalynx on left hand 3 weeks ago due to severe infection with multiple organisms. Patient found to have leukocytosis and osteomyelitis which I have been consulted for. Patient reports worsening of left hand surgical site with discoloration and pain. Patient examined at bedside. Denies nausea, diarrhea, shortness of breath and fever. Reports good appetite. Patient to have closure of left hand surgical wound this week. I changed the packing today, patient tolerated this ok, with lots of pain. Objective: Temp Pulse Resp BP Pulse Ox 98 F 84 20 159/87 H 99 04/27/20 11:27 04/27/20 11:27 04/27/20 11:27 04/27/20 11:27 04/27/20 11:27 Labs: no new labs available Hand xray 04/21: EXAM DESCRIPTION: RAD - Hand Left 3 View - 04/21/2020 6:02 pm CLINICAL HISTORY: PAIN COMPARISON: No comparisons FINDINGS: Amputation is present of the fourth finger at the level of the middle phalanx. There may be exposed bone in the region of the stump. Prominent soft tissue swelling is present involving the fourth finger. Localized infection in this region is possible. Vascular atherosclerosis is present. Chest xray 04/21: EXAM DESCRIPTION: RAD - Chest Single View - 04/21/2020 6:01 pm CLINICAL HISTORY: COUGH Chest pain. COMPARISON: Chest Pa And Lat (2 Views) dated 04/10/2020; Chest Single View dated 03/25/2019; Chest Single View dated 09/29/2018 FINDINGS: Portable technique limits examination quality. Linear subsegmental atelectasis is present in the left lung base with an elevated left hemidiaphragm. No focal consolidation typical of pneumonia seen. The heart is normal in size. No displaced fractures. ROS: General: Awake, alert, oriented CV: S1,S2 RESP: Good breath sounds, room air ABD: Bowel sounds present, nontender Extremities: Right BKA with prosthetic, 1+ radial pulses Skin: Left 4th finger surgical open wound, wound bed with granulation tissue and small amount of slough, edis area with maceration and discoloration Assessment and plan: Fevers, resolved Leukocytosis, resolved Blood cultures show no growth to date Wound culture positive for proteus mirabilis Left 4th phalynx osteomyelitis, s/p amputation of distal phalynx 3 weeks ago and I&D on 04/22 ESRD, on dialysis Diabetes mellitus, monitor glycemic control Currently on Merrem, recommend changing to Ceftazidime upon discharge Patient will need total of 4 weeks of Ceftazidime after wound closure Will continue to monitor Patient discussed with Dr. Correia
--- NOTE | 2020-04-27 15:49 | PN ---
The patient complains of pain in the hand . dressing changes every day. Plan surgery on Monday. I want to reamputation as a ray. CATY/PJ Voice ID: [id number] Report ID: [id number] MTDD
[2020-04-27] MEDS ORDERED: NA CHLORIDE 0.9% 250 ML ONE (20:29)
[2020-04-27] MEDS: clonazePAM 1 MG TAB PO PRN (23:05)
[2020-04-28] MEDS: HYDROMORPHONE HCL 1 MG/ML INJ IV PRN ×7 (00:12→21:43)
[2020-04-28 02:54] LABS: HBsAG Nonreactive (Nonreactive)
[2020-04-28] MEDS: INSULIN -REGULAR HUMAN 50 UNIT/0.5 ML ML SQ SCH ×4 (07:30→20:32)
[2020-04-28] MEDS: METOPROLOL XL 50 MG TAB PO SCH ×2 (08:37→20:31)
[2020-04-28] MEDS: lisinopriL 20 MG TAB PO SCH ×2 (08:37→20:31)
[2020-04-28] MEDS: AMLODIPINE 10 MG TAB PO SCH (08:37)
[2020-04-28] MEDS: DOXAZOSIN 2 MG TAB PO SCH ×2 (08:37→20:30)
[2020-04-28] MEDS: HYDROCODONE/APAP 5/325 MG TAB PO SCH ×3 (08:38→20:32)
[2020-04-28] MEDS: Meropenem 500 MG in NA CHLORIDE 0.9% 100 ML IV SCH ×2 (08:38→20:31)
[2020-04-28] MEDS ORDERED: MEPERIDINE HCL 50 MG/ML IM ONE (09:28)
--- NOTE | 2020-04-28 12:28 | P.PN ---
Subjective Date of Service: 04/28/20 Chief Complaint: Osteomyelitis/infection of the left 4th digit Subjective: No new changes (Patient's pain is better controlled this morning. He is pending to have a re-amputation of the left 4th finger tomorrow with hand surgery.) Physical Examination - Vital Signs Temperature: 98 F Blood Pressure: 168/80 Pulse: 78 Respirations: 18 Pulse Ox (%): 96 - Physical Exam General: Alert, In no apparent distress HEENT: Atraumatic, Normocephalic, EOMI Neck: Supple Respiratory: Clear to auscultation bilaterally, Normal air movement Cardiovascular: No edema, Normal pulses, Regular rate/rhythm, Normal S1 S2, Other (Left upper extremity fistula) Musculoskeletal: Other (Right BKA) Integumentary: No rashes, No breakdown, No significant lesion, No tenderness/swelling, No erythema, No warmth, No cyanosis Neurological: Normal speech, Sensation intact, Normal affect Other Physical/Emotional Findings: Patient seen and examined on 04/24/2020. I forgot to put in note. This is the note for 04/24/2020. - Studies Medications List Reviewed: Yes Assessment & Plan Physician Review Additional Text: Assessment Patient is a 49 year old male with known PMH of Type II diabetes mellitus s/p R BKA, ESRD on HD TTS and recent 4th digit amputation that became infected and failed outpatient TX. He returned to the hospital with worsening left 4 digit infection. Wound cultures during this admission showed ESBL Proteus mirabillis, serratia and citrobacter. He is on meropenem. ORTHO Hand evaluated the patient. Patient underwent I&D for osteomyelitis and flexor tenosynovitis. Osteomyelitis and flexor tenosynovitis of the left fourth finger S/P Incision and drainage with debridement with current wound culture positive for Proteus, prior wound culture positive for Proteus-ESBL, Serratia, Citrobacter ESRD on hemodialysis DMII insulin-dependent Hypertension Plan Continue multimodal pain regimen OR tomorrow for re-amputation Continue meropenem preoperatively Patient will be discharged on a 4-week course ceftazidime as per ID recommendation Continue blood pressure control Nephrology on board for arrange for hemodialysis while in house
--- NOTE | 2020-04-28 14:49 | P.PN ---
Date of Service: 04/28/20 Patient is a 49 year old male who presents with pain to left hand and fever. Patient had amputation of 4th distal phalynx on left hand 3 weeks ago due to severe infection with multiple organisms. Patient found to have leukocytosis and osteomyelitis which I have been consulted for. Patient reports worsening of left hand surgical site with discoloration and pain. Patient examined at bedside. Denies nausea, diarrhea, shortness of breath and fever. Reports good appetite. Patient to have closure of left hand surgical wound this week. I changed the packing today, patient tolerated this ok, with lots of pain. Objective: Temp Pulse Resp BP Pulse Ox 98 F 78 18 168/80 H 96 04/28/20 12:27 04/28/20 12:27 04/28/20 12:27 04/28/20 12:27 04/28/20 12:27 Labs: no new labs available Hand xray 04/21: EXAM DESCRIPTION: RAD - Hand Left 3 View - 04/21/2020 6:02 pm CLINICAL HISTORY: PAIN COMPARISON: No comparisons FINDINGS: Amputation is present of the fourth finger at the level of the middle phalanx. There may be exposed bone in the region of the stump. Prominent soft tissue swelling is present involving the fourth finger. Localized infection in this region is possible. Vascular atherosclerosis is present. Chest xray 04/21: EXAM DESCRIPTION: RAD - Chest Single View - 04/21/2020 6:01 pm CLINICAL HISTORY: COUGH Chest pain. COMPARISON: Chest Pa And Lat (2 Views) dated 04/10/2020; Chest Single View dated 03/25/2019; Chest Single View dated 09/29/2018 FINDINGS: Portable technique limits examination quality. Linear subsegmental atelectasis is present in the left lung base with an elevated left hemidiaphragm. No focal consolidation typical of pneumonia seen. The heart is normal in size. No displaced fractures. ROS: General: Awake, alert, receiving dialysis CV: S1,S2 RESP: Good breath sounds, room air ABD: Bowel sounds present, nontender Extremities: Right BKA with prosthetic Skin: Left 4th finger surgical open wound, dressing CDI Assessment and plan: Fevers, resolved Leukocytosis, resolved Blood cultures show no growth to date Wound culture positive for proteus mirabilis Left 4th phalynx osteomyelitis, s/p amputation of distal phalynx 3 weeks ago and I&D on 04/22 ESRD, on dialysis Diabetes mellitus, monitor glycemic control Currently on Merrem, recommend changing to Ceftazidime upon discharge Patient to have re-amputation of 4th phalynx tomorrow Patient will need total of 4 weeks of Ceftazidime after wound closure Will order CBC and CMP for tomorrow Will continue to monitor Patient discussed with Dr. Correia
[2020-04-28] MEDS: HEPARIN 5000 UNIT/ML 1 ML VIAL SQ SCH (20:32)
--- NOTE | 2020-04-28 21:08 | P.PN ---
Date of Service: 04/27/20 Vital Signs Temp Pulse Resp BP Pulse Ox 98 F 86 18 196/93 H 96 04/28/20 12:27 04/28/20 20:31 04/28/20 19:18 04/28/20 20:31 04/28/20 19:18 Medications Acetaminophen (Tylenol -Extra Strength) 500 mg PO Q4HP PRN PRN Reason: TEMP > 101' F Stop: 05/21/20 21:30 Last Admin: 04/25/20 21:15 Dose: 500 mg Documented by: Hydrocodone Bitart/Acetaminophen ([place] 5/325) 1 tab PO TID [facility] Stop: 05/26/20 21:01 Last Admin: 04/28/20 20:32 Dose: Not Given Documented by: Amlodipine Besylate (Norvasc) 10 mg PO DAILY [facility] Stop: 05/23/20 09:01 Last Admin: 04/28/20 08:37 Dose: 10 mg Documented by: Clonazepam (Klonopin) 1 mg PO BID PRN PRN Reason: AGITATION Stop: 05/22/20 15:23 Last Admin: 04/27/20 23:05 Dose: 1 mg Documented by: Dexamethasone (Decadron) 10 mg IM Q4HP PRN PRN Reason: inflammation Stop: 05/22/20 15:13 Last Admin: 04/22/20 21:27 Dose: 10 mg Documented by: Dextrose (Dextrose 50% Syringe/Vial) 12.5 gm IV PRN PRN; Protocol PRN Reason: HYPOGLYCEMIA Stop: 05/22/20 07:57 Last Admin: 04/22/20 12:01 Dose: 12.5 gm Documented by: Doxazosin Mesylate (Cardura) 2 mg PO BID [facility] Stop: 05/22/20 21:01 Last Admin: 04/28/20 20:30 Dose: 2 mg Documented by: Glucagon (Glucagen) 1 mg IM 1X PRN; Protocol PRN Reason: HYPOGLYCEMIA Stop: 05/22/20 07:58 Heparin Sodium (Porcine) (Heparin 1,000 Units/Ml) 6,000 unit IV EVERY HD PRN PRN Reason: AFTER EACH Stop: 05/23/20 09:59 Heparin Sodium (Porcine) (Heparin 5,000 Units/Ml) 5,000 unit SQ Q12HR [facility] Stop: 05/28/20 21:01 Last Admin: 04/28/20 20:32 Dose: 5,000 unit Documented by: Hydralazine HCl (Apresoline) 10 mg IV Q6HP PRN PRN Reason: Titrate to SBP (MUST DEFINE) Stop: 05/22/20 08:11 Last Admin: 04/27/20 06:01 Dose: 10 mg Documented by: Hydromorphone HCl (Dilaudid) 1 mg IV Q3H PRN PRN Reason: Pain scale 8-10 (Severe) Stop: 05/28/20 06:31 Last Admin: 04/28/20 18:48 Dose: 1 mg Documented by: Albumin Human (Albumin 25%) 50 mls @ 100 mls/hr IV EVERY HD [facility] Stop: 05/23/20 10:01 Meropenem 500 mg/ Sodium (Chloride) 100 mls @ 100 mls/hr IV Q12HR [facility] Stop: 05/26/20 21:01 Last Admin: 04/28/20 20:31 Dose: 100 mls Documented by: Insulin Human Regular (Novolin -R) 0 unit SQ ACHS [facility]; Protocol Stop: 05/21/20 21:30 Last Admin: 04/28/20 20:32 Dose: Not Given Documented by: Lisinopril (Prinivil) 20 mg PO BID [facility] Stop: 05/22/20 21:01 Last Admin: 04/28/20 20:31 Dose: 20 mg Documented by: Mannitol (Mannitol 12.5 Gm/50 Ml Vial) 12.5 gm IV EVERY HD PRN PRN Reason: Titrate to SBP (MUST DEFINE) Stop: 05/23/20 09:59 Metoprolol Succinate (Toprol Xl) 50 mg PO BID [facility] Stop: 05/22/20 21:01 Last Admin: 04/28/20 20:31 Dose: 50 mg Documented by: Ondansetron HCl (Zofran) 4 mg IV Q6HP PRN PRN Reason: NAUSEA / VOMITING Stop: 05/21/20 21:30 Sodium Chloride (Normal Saline Flush) 10 ml IV BID [facility] Stop: 05/21/20 21:30 Last Admin: 04/28/20 20:32 Dose: 10 ml Documented by: Tizanidine HCl (Zanaflex) 4 mg PO TID PRN PRN Reason: MUSCLE SPASMS Stop: 05/22/20 15:48 Assessment/ Plan: Nephrology CPS stable without CP or SOB. No acute events overnight. Left finger pain. Vitals, medications, blood work and imaging reviewed in the chart. General: Oriented x3, Cooperative HEENT: Atraumatic Neck: Supple Respiratory: Clear to auscultation bilaterally, Normal air movement Cardiovascular: No edema, Regular rate/rhythm Gastrointestinal: Soft and benign, Non-distended Musculoskeletal: No clubbing, No contractures Integumentary: No rashes, No cyanosis Neurological: Normal speech Blood work reviewed in the chart. Imagings Data: EXAM DESCRIPTION: RAD - Chest Single View - 04/21/2020 6:01 pm CLINICAL HISTORY: COUGH Chest pain. COMPARISON: Chest Pa And Lat (2 Views) dated 04/10/2020; Chest Single View dated 03/25/2019; Chest Single View dated 09/29/2018 FINDINGS: Portable technique limits examination quality. Linear subsegmental atelectasis is present in the left lung base with an elevated left hemidiaphragm. No focal consolidation typical of pneumonia seen. The heart is normal in size. No displaced fractures. Conclusions/Impression: A/ ESRD on HD. Hyponatremia HTN with CKD/ CHF. Diastolic CHF, chronic. DM II with CKD. Anemia in CKD. ALEX/ Secondary HyperPTH. Moderate malnutrition Left 4th finger osteomyelitis P/ Continue current POC and Medications. HD TIW on TTS. Retacrit PRN. Continue abx. Follow up with surgery. Wound care as ordered. No NSAIDs. AM labs. Daily weight.
--- NOTE | 2020-04-28 21:11 | P.PN ---
Date of Service: 04/28/20 Vital Signs Temp Pulse Resp BP Pulse Ox 98 F 86 18 196/93 H 96 04/28/20 12:27 04/28/20 20:31 04/28/20 19:18 04/28/20 20:31 04/28/20 19:18 Medications Acetaminophen (Tylenol -Extra Strength) 500 mg PO Q4HP PRN PRN Reason: TEMP > 101' F Stop: 05/21/20 21:30 Last Admin: 04/25/20 21:15 Dose: 500 mg Documented by: Hydrocodone Bitart/Acetaminophen ([place] 5/325) 1 tab PO TID [facility] Stop: 05/26/20 21:01 Last Admin: 04/28/20 20:32 Dose: Not Given Documented by: Amlodipine Besylate (Norvasc) 10 mg PO DAILY [facility] Stop: 05/23/20 09:01 Last Admin: 04/28/20 08:37 Dose: 10 mg Documented by: Clonazepam (Klonopin) 1 mg PO BID PRN PRN Reason: AGITATION Stop: 05/22/20 15:23 Last Admin: 04/27/20 23:05 Dose: 1 mg Documented by: Dexamethasone (Decadron) 10 mg IM Q4HP PRN PRN Reason: inflammation Stop: 05/22/20 15:13 Last Admin: 04/22/20 21:27 Dose: 10 mg Documented by: Dextrose (Dextrose 50% Syringe/Vial) 12.5 gm IV PRN PRN; Protocol PRN Reason: HYPOGLYCEMIA Stop: 05/22/20 07:57 Last Admin: 04/22/20 12:01 Dose: 12.5 gm Documented by: Doxazosin Mesylate (Cardura) 2 mg PO BID [facility] Stop: 05/22/20 21:01 Last Admin: 04/28/20 20:30 Dose: 2 mg Documented by: Glucagon (Glucagen) 1 mg IM 1X PRN; Protocol PRN Reason: HYPOGLYCEMIA Stop: 05/22/20 07:58 Heparin Sodium (Porcine) (Heparin 1,000 Units/Ml) 6,000 unit IV EVERY HD PRN PRN Reason: AFTER EACH Stop: 05/23/20 09:59 Heparin Sodium (Porcine) (Heparin 5,000 Units/Ml) 5,000 unit SQ Q12HR [facility] Stop: 05/28/20 21:01 Last Admin: 04/28/20 20:32 Dose: 5,000 unit Documented by: Hydralazine HCl (Apresoline) 10 mg IV Q6HP PRN PRN Reason: Titrate to SBP (MUST DEFINE) Stop: 05/22/20 08:11 Last Admin: 04/27/20 06:01 Dose: 10 mg Documented by: Hydromorphone HCl (Dilaudid) 1 mg IV Q3H PRN PRN Reason: Pain scale 8-10 (Severe) Stop: 05/28/20 06:31 Last Admin: 04/28/20 18:48 Dose: 1 mg Documented by: Albumin Human (Albumin 25%) 50 mls @ 100 mls/hr IV EVERY HD [facility] Stop: 05/23/20 10:01 Meropenem 500 mg/ Sodium (Chloride) 100 mls @ 100 mls/hr IV Q12HR [facility] Stop: 05/26/20 21:01 Last Admin: 04/28/20 20:31 Dose: 100 mls Documented by: Insulin Human Regular (Novolin -R) 0 unit SQ ACHS [facility]; Protocol Stop: 05/21/20 21:30 Last Admin: 04/28/20 20:32 Dose: Not Given Documented by: Lisinopril (Prinivil) 20 mg PO BID [facility] Stop: 05/22/20 21:01 Last Admin: 04/28/20 20:31 Dose: 20 mg Documented by: Mannitol (Mannitol 12.5 Gm/50 Ml Vial) 12.5 gm IV EVERY HD PRN PRN Reason: Titrate to SBP (MUST DEFINE) Stop: 05/23/20 09:59 Metoprolol Succinate (Toprol Xl) 50 mg PO BID [facility] Stop: 05/22/20 21:01 Last Admin: 04/28/20 20:31 Dose: 50 mg Documented by: Ondansetron HCl (Zofran) 4 mg IV Q6HP PRN PRN Reason: NAUSEA / VOMITING Stop: 05/21/20 21:30 Sodium Chloride (Normal Saline Flush) 10 ml IV BID [facility] Stop: 05/21/20 21:30 Last Admin: 04/28/20 20:32 Dose: 10 ml Documented by: Tizanidine HCl (Zanaflex) 4 mg PO TID PRN PRN Reason: MUSCLE SPASMS Stop: 05/22/20 15:48 Assessment/ Plan: Nephrology CPS stable without CP or SOB. No acute events overnight. Persistent left finger pain. Vitals, medications, blood work and imaging reviewed in the chart. General: Oriented x3, Cooperative HEENT: Atraumatic Neck: Supple Respiratory: Clear to auscultation bilaterally, Normal air movement Cardiovascular: No edema, Regular rate/rhythm Gastrointestinal: Soft and benign, Non-distended Musculoskeletal: No clubbing, No contractures Integumentary: No rashes, No cyanosis Neurological: Normal speech Blood work reviewed in the chart. Imagings Data: EXAM DESCRIPTION: RAD - Chest Single View - 04/21/2020 6:01 pm CLINICAL HISTORY: COUGH Chest pain. COMPARISON: Chest Pa And Lat (2 Views) dated 04/10/2020; Chest Single View dated 03/25/2019; Chest Single View dated 09/29/2018 FINDINGS: Portable technique limits examination quality. Linear subsegmental atelectasis is present in the left lung base with an elevated left hemidiaphragm. No focal consolidation typical of pneumonia seen. The heart is normal in size. No displaced fractures. Conclusions/Impression: A/ ESRD on HD. Hyponatremia HTN with CKD/ CHF. Diastolic CHF, chronic. DM II with CKD. Anemia in CKD. ALEX/ Secondary HyperPTH. Moderate malnutrition Left 4th finger osteomyelitis P/ Continue current POC and Medications. HD TIW on TTS. Seen and examined on HD. Retacrit PRN. Continue abx. Follow up with surgery. Wound care as ordered. No NSAIDs. AM labs. Daily weight.
[2020-04-28] MEDS: clonazePAM 1 MG TAB PO PRN (23:01)
[2020-04-29] MEDS: HYDROMORPHONE HCL 1 MG/ML INJ IV PRN ×6 (01:00→20:52)
[2020-04-29 05:43] LABS: Absolute Lymphocytes (CBC) 1.6 K/uL (0.7-4.9); Basophils % 1.1 % (0-1.3); Hematocrit 30.2 % (39.6-49.0); Lymphocytes % 19.5 % (15.3-44.8); MPV 7.4 fL (7.6-11.3); RBC Red Blood Cell Count 3.54 M/uL (4.33-5.43)
[2020-04-29 06:04] LABS: Albumin 2.5 g/dL (3.4-5.0); Bilirubin Total 0.3 mg/dL (0.2-1.0); Magnesium 2.3 mg/dL (1.8-2.4); Potassium 4.6 mmol/L (3.5-5.1); Protein, Total 5.6 g/dL (6.4-8.2)
[2020-04-29] MEDS: INSULIN -REGULAR HUMAN 50 UNIT/0.5 ML ML SQ SCH ×4 (07:30→21:00)
[2020-04-29] MEDS: Meropenem 500 MG in NA CHLORIDE 0.9% 100 ML IV SCH ×2 (09:00→20:51)
[2020-04-29] MEDS: HEPARIN 5000 UNIT/ML 1 ML VIAL SQ SCH ×2 (09:00→20:51)
[2020-04-29] MEDS: HYDROCODONE/APAP 5/325 MG TAB PO SCH ×3 (09:00→21:00)
[2020-04-29] MEDS: AMLODIPINE 10 MG TAB PO SCH (09:13)
[2020-04-29] MEDS: DOXAZOSIN 2 MG TAB PO SCH ×2 (09:13→20:50)
[2020-04-29] MEDS: lisinopriL 20 MG TAB PO SCH ×2 (09:14→20:52)
[2020-04-29] MEDS: METOPROLOL XL 50 MG TAB PO SCH ×2 (09:14→20:52)
[2020-04-29] MEDS ORDERED: NA CHLORIDE 0.9% 500 ML ONE (11:17)
--- NOTE | 2020-04-29 11:34 | P.PN ---
Subjective Date of Service: 04/29/20 Chief Complaint: Osteomyelitis/infection of the left 4th digit Subjective: No new changes Physical Examination - Vital Signs Temperature: 97.8 F Blood Pressure: 140/77 Pulse: 79 Respirations: 18 Pulse Ox (%): 96 - Physical Exam General: Alert, In no apparent distress, Cooperative HEENT: Atraumatic, Normocephalic, EOMI Neck: Supple Respiratory: Clear to auscultation bilaterally, Normal air movement Cardiovascular: No edema, Normal pulses, Regular rate/rhythm, Normal S1 S2 Gastrointestinal: Normal bowel sounds, Soft and benign, Non-distended Musculoskeletal: Other (R BKA) Integumentary: No rashes, No breakdown, No significant lesion, No tenderness/swelling, No erythema, No warmth, No cyanosis Neurological: Normal speech, Sensation intact, Normal affect Other Physical/Emotional Findings: Patient seen and examined on 04/24/2020. I forgot to put in note. This is the note for 04/24/2020. - Studies Medications List Reviewed: Yes Assessment & Plan Physician Review Additional Text: Assessment Patient is a 49 year old male with known PMH of Type II diabetes mellitus s/p R BKA, ESRD on HD TTS and recent 4th digit amputation that became infected and failed outpatient TX. He returned to the hospital with worsening left 4 digit infection. Wound cultures during this admission showed ESBL Proteus mirabillis, serratia and citrobacter. He is on meropenem. Patient underwent I&D for osteomyelitis and flexor tenosynovitis by Ortho. Osteomyelitis and flexor tenosynovitis of the left fourth finger S/P Incision and drainage with debridement with current wound culture positive for Proteus, prior wound culture positive for Proteus-ESBL, Serratia, Citrobacter ESRD on hemodialysis DMII insulin-dependent Hypertension Plan Continue multimodal pain regimen OR today for re-amputation Continue meropenem preoperatively Patient will be discharged on a 4-week course ceftazidime as per ID recommendation Continue blood pressure control Nephrology on board for arrange for hemodialysis while in house
[2020-04-29] MEDS ORDERED: LIDOCAINE 2% MPF 5 ML VIAL ONE (12:26)
[2020-04-29] MEDS ORDERED: FENTANYL CITR 100 MCG/2 ML ONE (12:26)
[2020-04-29] MEDS ORDERED: dexAMETHasone 10 MG/ML VIAL ONE (12:26)
[2020-04-29] MEDS ORDERED: propofoL 200 MG/20 ML VIAL IV ONE (12:26)
[2020-04-29] MEDS ORDERED: MIDAZOLAM HCL 2 MG/2 ML INJ ONE (12:26)
[2020-04-29] MEDS ORDERED: KETOROLAC 30 MG/ML INJ ONE (12:26)
[2020-04-29] MEDS ORDERED: MORPHINE 10 MG/ML VIAL ONE (13:58)
[2020-04-29] MEDS: HYDROMORPHONE HCL 1 MG/ML INJ ONE ×6 (14:09→14:51)
[2020-04-29] MEDS ORDERED: ONDANSETRON 4 MG/2 ML VIAL ONE (14:21)
[2020-04-29] MEDS: FENTANYL CITR 100 MCG/2 ML ONE ×2 (14:31→14:43)
[2020-04-29] MEDS: MEPERIDINE HCL 25 MG/ML SYR ONE ×2 (14:34→14:39)
[2020-04-29] MEDS ORDERED: HYDROCODONE/APAP 5/325 MG TAB ONE (15:08)
[2020-04-29] MEDS ORDERED: MEPERIDINE HCL 25 MG/ML SYR ONE ×2 (15:23→15:24)
[2020-04-29] MEDS ORDERED: MEPERIDINE HCL 50 MG/ML IM ONE (16:27)
[2020-04-29] MEDS: MEPERIDINE HCL 25 MG/ML SYR IM ONE ×2 (16:54→17:00)
[2020-04-29] MEDS ORDERED: FENTANYL 25 MCG/PATCH TD ONE (17:00)
--- NOTE | 2020-04-29 17:39 | P.PN ---
Date of Service: 04/29/20 Patient is a 49 year old male who presents with pain to left hand and fever. Patient had amputation of 4th distal phalynx on left hand 3 weeks ago due to severe infection with multiple organisms. Patient found to have leukocytosis and osteomyelitis which I have been consulted for. Patient reports worsening of left hand surgical site with discoloration and pain. Patient examined at bedside. Denies nausea, diarrhea, shortness of breath and fever. Patient had amputation to left 4th digit today. Objective: Temp Pulse Resp BP Pulse Ox 97.1 F 72 18 124/72 96 04/29/20 16:00 04/29/20 16:00 04/29/20 16:54 04/29/20 16:00 04/29/20 16:54 Labs: Na 141, K 4.6, BUN 31, creat 8.63, albumin 2.5, WBC 8.2, Hgb 10.0, Hct 30.2 Hand xray 04/21: EXAM DESCRIPTION: RAD - Hand Left 3 View - 04/21/2020 6:02 pm CLINICAL HISTORY: PAIN COMPARISON: No comparisons FINDINGS: Amputation is present of the fourth finger at the level of the middle phalanx. There may be exposed bone in the region of the stump. Prominent soft tissue swelling is present involving the fourth finger. Localized infection in this region is possible. Vascular atherosclerosis is present. Chest xray 04/21: EXAM DESCRIPTION: RAD - Chest Single View - 04/21/2020 6:01 pm CLINICAL HISTORY: COUGH Chest pain. COMPARISON: Chest Pa And Lat (2 Views) dated 04/10/2020; Chest Single View dated 03/25/2019; Chest Single View dated 09/29/2018 FINDINGS: Portable technique limits examination quality. Linear subsegmental atelectasis is present in the left lung base with an elevated left hemidiaphragm. No focal consolidation typical of pneumonia seen. The heart is normal in size. No displaced fractures. ROS: General: Awake, alert CV: S1,S2 RESP: Good breath sounds, room air ABD: Bowel sounds present, nontender Extremities: Right BKA with prosthetic Skin: Left 4th finger surgical wound, dressing CDI Assessment and plan: Fevers, resolved Leukocytosis, resolved Blood cultures show no growth to date Wound culture positive for proteus mirabilis Left 4th phalynx osteomyelitis, s/p amputation 04/29 ESRD, on dialysis Diabetes mellitus, monitor glycemic control Currently on Merrem, recommend changing to Ceftazidime upon discharge Patient will need total of 4 weeks of Ceftazidime from amputation on 04/29 Will continue to monitor Patient discussed with Dr. Correia
[2020-04-29] MEDS: clonazePAM 1 MG TAB PO PRN (21:49)
--- NOTE | 2020-04-30 00:54 | OP ---
Surgeon: Bright Jesus MD Preoperative Diagnosis: Open wound of the left ring finger. Postoperative Diagnosis: Open wound of the left ring finger. Procedure Performed: Ray amputation of the left ring finger. Anesthesia: General. Description Of Procedure: After satisfactory induction of general anesthesia, left hand was prepped with Betadine paint, Betadine scrub. Dry sterile drapes applied in the usual manner. Arm was elevated, exsanguinated with an Esmarch, tourniquet inflated to 250 mmHg. Hand placed on roll lock table and the dorsal surface had a racket shaped incision placed over the dorsum along the axis of the ring finger metacarpal. Dissection proceeded down to the extensor tendon, was divided transversely and proximally to approximately 1/2 of the metacarpal and then electrocautery was used to dissect down soft tissue. The bone cutter was used to cut the bone. The bone was removed from the underlying soft tissue through the right hip incision. The patient then had the wound irrigated with 3 L of dilute Betadine solution. Electrocautery used for hemostasis. The transverse metacarpal ligament was sewn with 4-0 M[place]ilene sutures pulling the metacarpals of the middle and little closed together, then the skin was closed with 3-0 Prolene vertical mattresses and 4-0 Prolene vertical mattresses. Dressed with Xeroform, 2 inch Jose E, Kerlix. The patient tolerated procedure well and returned to recovery. CATY/PJ Voice ID: [id number] Report ID: [id number] TASHI
[2020-04-30] MEDS: HYDROMORPHONE HCL 1 MG/ML INJ IV PRN ×4 (06:51→16:28)
[2020-04-30] MEDS: INSULIN -REGULAR HUMAN 50 UNIT/0.5 ML ML SQ SCH ×3 (07:30→16:29)
[2020-04-30] MEDS: Meropenem 500 MG in NA CHLORIDE 0.9% 100 ML IV SCH (08:00)
[2020-04-30 08:05] VITALS: O2SAT 98
[2020-04-30] MEDS: DOXAZOSIN 2 MG TAB PO SCH (08:15)
[2020-04-30] MEDS: METOPROLOL XL 50 MG TAB PO SCH (08:15)
[2020-04-30] MEDS: lisinopriL 20 MG TAB PO SCH (08:16)
[2020-04-30] MEDS: HYDROCODONE/APAP 5/325 MG TAB PO SCH ×2 (08:16→12:19)
[2020-04-30] MEDS: AMLODIPINE 10 MG TAB PO SCH (08:16)
[2020-04-30] MEDS: HEPARIN 5000 UNIT/ML 1 ML VIAL SQ SCH (08:17)
[2020-04-30 08:29] LABS: Absolute Lymphocytes (CBC) 1.6 K/uL (0.7-4.9); Basophils % 0.7 % (0-1.3); Hematocrit 33.3 % (39.6-49.0); Lymphocytes % 13.7 % (15.3-44.8); MPV 7.8 fL (7.6-11.3); RBC Red Blood Cell Count 3.85 M/uL (4.33-5.43)
[2020-04-30 08:35] LABS: Potassium 5.5 mmol/L (3.5-5.1)
[2020-04-30] MEDS ORDERED: EPOETIN ALFA-EPBX 10,000 UNIT/ML VIAL SQ ONE (10:58)
--- NOTE | 2020-04-30 13:33 | P.DS ---
Admission Date: 04/21/20 Discharge Date: 04/30/20 Disposition: ROUTINE DISCHARGE Discharge Condition: GOOD Reason for Admission: Osteomyelitis/infection of the left 4th digit Brief History of Present Illness: Please refer to H&P Hospital Course: Patient is a 49-year-old male with a past medical history of hypertension, ESRD on hemodialysis Monday, DM, right BKA and a recent 4th digit osteomyelitis of his left hand for which he underwent I and D 3 days [employer]. He returned to the hospital due to concern of treatment failure and worsening of his wound. Wound culture yielded polymicrobial infection. During this admission, was found to have multi-drug resistant Proteus mirabilis. Was placed on meropenem at the [facility] and performed a I&D and subsequently a re-amputation. He tolerated the procedure well. He will be discharged on a 4 week course of ceftazidime, which she will be getting with his dialysis. Vital Signs/Physical Exam: Temp Pulse Resp BP Pulse Ox 97.9 F 73 15 141/74 H 98 04/30/20 12:00 04/30/20 12:00 04/30/20 13:18 04/30/20 12:00 04/30/20 13:18 General: Alert, In no apparent distress, Cooperative HEENT: Atraumatic, Normocephalic Neck: Supple Respiratory: Clear to auscultation bilaterally, Normal air movement Cardiovascular: No edema, Normal pulses, Regular rate/rhythm, Normal S1 S2 Musculoskeletal: Other (R BKA) Integumentary: No rashes, No breakdown, No significant lesion, No tenderness/swelling, No erythema, No warmth, No cyanosis Neurological: Normal speech, Sensation intact, Normal affect Other Physical/Emotional Findings: Patient seen and examined on 04/24/2020. I forgot to put in note. This is the note for 04/24/2020. Laboratory Data at Discharge: WBC 11.5 K/uL (4.3-10.9) H D 04/30/20 08:08 Hgb 10.6 g/dL (13.6-17.9) L 04/30/20 08:08 Hct 33.3 % (39.6-49.0) L 04/30/20 08:08 Plt Count 243 K/uL (152-406) 04/30/20 08:08 Sodium 137 mmol/L (136-145) 04/30/20 08:08 Potassium 5.5 mmol/L (3.5-5.1) H 04/30/20 08:08 BUN 54 mg/dL (7-18) H D 04/30/20 08:08 Creatinine 10.40 mg/dL (0.55-1.3) H* D 04/30/20 08:08 Glucose 95 mg/dL (74-106) 04/30/20 08:08 Magnesium 2.3 mg/dL (1.8-2.4) 04/29/20 05:15 Total Bilirubin 0.3 mg/dL (0.2-1.0) 04/29/20 05:15 AST 21 U/L (15-37) 04/29/20 05:15 ALT 13 U/L (12-78) 04/29/20 05:15 Alkaline Phosphatase 66 U/L (45-117) 04/29/20 05:15 Home Medications: Doxazosin Mesylate [Cardura] 2 mg PO BID 03/25/19 Hydrocodone/Acetaminophen [Hydrocodone-Acetamin 5-325 mg] 1 tab PO TID 03/25/19 Metoprolol Succinate [Toprol Xl*] 50 mg PO BID 03/25/19 lisinopriL [Lisinopril] 20 mg PO BID 03/25/19 Amlodipine [Norvasc*] 10 mg PO DAILY 04/22/20 Tizanidine HCl 4 mg PO TID PRN 04/22/20 clonazePAM [Clonazepam] 1 mg PO BID 04/22/20 Diet: Renal
[2020-04-30 16:42] VITALS: BP 155/82; TEMP 98
--- NOTE | 2020-04-30 20:27 | P.PN ---
Date of Service: 04/30/20 Vital Signs Temp Pulse Resp BP Pulse Ox 98 F 78 15 155/82 H 99 04/30/20 16:42 04/30/20 16:42 04/30/20 16:58 04/30/20 16:42 04/30/20 16:58 Assessment/ Plan: Nephrology CPS stable without CP or SOB. No acute events overnight. Persistent left finger pain. Vitals, medications, blood work and imaging reviewed in the chart. General: Oriented x3, Cooperative HEENT: Atraumatic Neck: Supple Respiratory: Clear to auscultation bilaterally, Normal air movement Cardiovascular: No edema, Regular rate/rhythm Gastrointestinal: Soft and benign, Non-distended Musculoskeletal: No clubbing, No contractures Integumentary: No rashes, No cyanosis Neurological: Normal speech Blood work reviewed in the chart. Imagings Data: EXAM DESCRIPTION: RAD - Chest Single View - 04/21/2020 6:01 pm CLINICAL HISTORY: COUGH Chest pain. COMPARISON: Chest Pa And Lat (2 Views) dated 04/10/2020; Chest Single View dated 03/25/2019; Chest Single View dated 09/29/2018 FINDINGS: Portable technique limits examination quality. Linear subsegmental atelectasis is present in the left lung base with an elevated left hemidiaphragm. No focal consolidation typical of pneumonia seen. The heart is normal in size. No displaced fractures. Conclusions/Impression: A/ ESRD on HD. Hyponatremia HTN with CKD/ CHF. Diastolic CHF, chronic. DM II with CKD. Anemia in CKD. ALEX/ Secondary HyperPTH. Moderate malnutrition Left 4th finger osteomyelitis P/ Continue current POC and Medications. HD TIW on TTS. Retacrit PRN. Continue abx. Follow up with surgery. Wound care as ordered. No NSAIDs. AM labs prn. Daily weight.
== END 2020-04-30 17:43 | disposition home or self-care (01) | DRG 629 ==
LOC: ER 16:07 → ERHOLD 18:29 → 2ND 20:09
PROVIDERS: ADMIT Internal Medicine; ATTEND Internal Medicine
PROC: 0PBV0ZZ Excision of Left Finger Phalanx, Open Approach (ICD-10-PCS; principal; 2020-04-22 12:30)
PROC: 5A1D70Z Performance of Urinary Filtration, Intermittent, Less than 6 Hours Per Day (ICD-10-PCS; 2020-04-25)
PROC: 0X6T0Z2 Detachment at Left Ring Finger, Mid, Open Approach (ICD-10-PCS; 2020-04-29)
DX: E11.69 Type 2 diabetes mellitus with other specified complication (principal); M86.8X4 Other osteomyelitis, hand; E87.1 Hypo-osmolality and hyponatremia; I13.2 Hypertensive heart and chronic kidney disease with heart failure and with stage 5 chronic kidney disease, or end stage renal disease; I50.32 Chronic diastolic (congestive) heart failure; E44.0 Moderate protein-calorie malnutrition; E11.52 Type 2 diabetes mellitus with diabetic peripheral angiopathy with gangrene; I96 Gangrene, not elsewhere classified; Z16.12 Extended spectrum beta lactamase (ESBL) resistance; Z89.022 Acquired absence of left finger(s); Z79.891 Long term (current) use of opiate analgesic; Z79.899 Other long term (current) drug therapy; Z85.528 Personal history of other malignant neoplasm of kidney; Z96.659 Presence of unspecified artificial knee joint; F17.200 Nicotine dependence, unspecified, uncomplicated; Z79.4 Long term (current) use of insulin; E11.22 Type 2 diabetes mellitus with diabetic chronic kidney disease; N18.6 End stage renal disease; E11.40 Type 2 diabetes mellitus with diabetic neuropathy, unspecified; Z99.2 Dependence on renal dialysis; D63.1 Anemia in chronic kidney disease; N25.81 Secondary hyperparathyroidism of renal origin; M65.842 Other synovitis and tenosynovitis, left hand; D72.829 Elevated white blood cell count, unspecified; B96.89 Other specified bacterial agents as the cause of diseases classified elsewhere; B96.4 Proteus (mirabilis) (morganii) as the cause of diseases classified elsewhere; Z89.511 Acquired absence of right leg below knee
CPT/HCPCS: 36415; 71045; 80048; 80053; 80202; 82947; 83605; 83735; 85025; 86317; 86850; 86900; 86901; 87040; 87070; 87075; 87077; 87186; 87205; 87340; 88304; 88305; 88311; 90935; 93005; 93930; 96361; 96365; 96367; 96375; 99285; J0295; J0360; J0690; J0696; J0713; J1100; J1170; J1644; J2175; J2250; J2270; J2405; J2704; J3010; J3370; J7030; J7040; Q5106

== ENCOUNTER 2022-03-28 12:40 | Emergency (ER) | payer OTHER ==
--- OUTSIDE RECORDS SUMMARY | 2022-03-28 12:46 | XMS REPORT | Continuity of Care Document ---
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 Health mg tablet 00:00: cervical mouth 00 spine every 8 hours as needed for Pain. traMADol Yes History of 100mg Take 2 [facility] (ULTRAM) 50 2-25 fusion of tablets by Health mg tablet 00:00: cervical mouth 00 spine every 8 hours as needed for Pain. zolpidem Yes Insomnia, 5mg Take 1 Escudero rris (AMBIEN) 5 1-21 unspecified tablet by Health mg Tab 00:00: mouth 00 nightly at bedtime as needed for Insomnia. omeprazole Yes Status post 40mg QD Take 2 [facility] (PRILOSEC) 1-21 below knee capsules Health 20 mg 00:00: amputation by mouth delayed 00 of right daily. release lower capsule extremity FLUoxetine Yes Status post 20mg QD Take 1 [facility] (PROZAC) 20 1-21 below knee capsule by Health mg capsule 00:00: amputation mouth 00 of right daily. 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 insulin Yes Type 2 75U Inject 75 Saeid ris glargine 1-21 diabetes, Units Healt h (LANTUS) 00:00: uncontrolle under the 100 unit/mL 00 d, with skin at injection retinopathy bedtime nightly. gabapentin Yes Status post 600mg Take 1 [facility] (NEURONTIN) 1-21 below knee tablet by [facility] 600 mg 00:00: amputation mouth 3 tablet 00 of right times lower daily. extremity lisinopril- Yes 1{tbl} QD Take 1 Escudero rris hydrochloro 1-21 tablet by [facility] thiazide 00:00: mouth (ZESTORETIC 00 daily. ) 20-25 mg per tablet ketoconazol 2015- Yes Toenail QD Apply to [facility] e (NIZORAL) 1-21 fungus affected He alth 2 % topical 00:00: area cream 00 daily. albuterol Yes Cough 2{puff} Inhale 2 [facility] (VENTOLIN 1-21 Puffs by [facility] HFA,PROVENT 00:00: mouth 4 [place] 00 times HFA,PROAIR daily as HFA) 90 needed for mcg/actuati Wheezing. on inhaler zolpidem Yes Insomnia, 5mg Take 1 Escudero rris (AMBIEN) 5 1-21 unspecified tablet by [facility] mg Tab 00:00: mouth 00 nightly at bedtime as needed for Insomnia. omeprazole Yes Status post 40mg QD Take 2 [facility] (PRILOSEC) 1-21 below knee capsules Health 20 mg 00:00: amputation by mouth delayed 00 of right daily. release lower capsule extremity FLUoxetine Yes Status post 20mg QD Take 1 [facility] (PROZAC) 20 1-21 below knee capsule by [facility] mg capsule 00:00: amputation mouth 00 of right daily. 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 insulin 2015- Yes Type 2 75U Inject 75 Saeid ris glargine 1-21 diabetes, Units Healt h (LANTUS) 00:00: uncontrolle under the 100 unit/mL 00 d, with skin at injection retinopathy bedtime nightly. gabapentin Yes Status post 600mg Take 1 [facility] (NEURONTIN) 1-21 below knee tablet by [facility] 600 mg 00:00: amputation mouth 3 tablet 00 of right times lower daily. extremity lisinopril- Yes 1{tbl} QD Take 1 Escudero rris hydrochloro 1-21 tablet by [facility] thiazide 00:00: mouth (ZESTORETIC 00 daily. ) 20-25 mg per tablet ketoconazol Yes Toenail QD Apply to [facility] e (NIZORAL) 1-21 fungus affected He alth 2 % topical 00:00: area cream 00 daily. albuterol Yes Cough 2{puff} Inhale 2 [facility] (VENTOLIN 1-21 Puffs by Health HFA,PROVENT 00:00: mouth 4 [place] 00 times HFA,PROAIR daily as HFA) 90 needed for mcg/actuati Wheezing. on inhaler lancets Yes use as Harri s gauge 1-30 directed Health 00:00: 3 times 00 daily. albuterol Yes 2{puff} Inhale 2 H arris (PROVENTIL 1-30 Puffs by Healt h HFA) 90 00:00: mouth 4 mcg/actuati 00 times on inhaler daily as needed for Wheezing. lancets 28 Yes use as Harri s gauge 1-30 directed Health 00:00: 3 times 00 daily. albuterol Yes 2{puff} Inhale 2 H arris (PROVENTIL 1-30 Puffs by Healt h HFA) 90 00:00: mouth 4 mcg/actuati 00 times on inhaler daily as needed for Wheezing. Immunizations Ordered Immunization Filled Immunization Date Status Commen ts Source Name Name SARS-COV-2 COVID-19 2021-01-23 Completed Unive rsity of PFIZER VACCINE 00:00:00 [facility] SARS-COV-2 COVID-19 2021-01-23 Completed Unive rsity of PFIZER VACCINE 00:00:00 [facility] SARS-COV-2 COVID-19 2021-01-23 Completed Unive rsity of PFIZER VACCINE 00:00:00 [facility] Pfizer COVID-19 Pfizer COVID-19 2021-01-23 Completed Vaccine Vaccine 00:00:00 SARS-COV-2 COVID-19 2021-01-02 Completed Unive rsity of PFIZER VACCINE 00:00:00 [facility] SARS-COV-2 COVID-19 2021-01-02 Completed Unive rsity of PFIZER VACCINE 00:00:00 [facility] SARS-COV-2 COVID-19 2021-01-02 Completed Unive rsity of PFIZER VACCINE 00:00:00 [facility] Pfizer COVID-19 Pfizer COVID-19 2021-01-02 Completed Vaccine Vaccine 00:00:00 Influenza Virus 2018-09-12 Completed Universit y of Vaccine Quad .5 mL 00:00:[address] [facility] IM 6+ MO [place] Influenza Virus 2018-09-12 Completed Universit y of Vaccine Quad .5 mL 00:00:[address] [facility] IM 6+ MO [place] Influenza Virus 2018-09-12 Completed Universit y of Vaccine Quad .5 mL 00:00:00 [facility] 6+ [place] Branch Pneumococcal 2018-01-07 Completed University o f Polysaccharide, 00:00:00 [facility] ical PPSV23 (PNEUMOVAX) Branch Influenza Virus 2018-01-07 Completed Universit y of Vaccine Quad IM 3+ 00:00:00 [facility] Pneumococcal 2018-01-07 Completed University o f Polysaccharide, 00:00:00 [facility] ical PPSV23 (PNEUMOVAX) Branch Influenza Virus 2018-01-07 Completed Universit y of Vaccine Quad IM 3+ 00:00:00 [facility] Pneumococcal 2018-01-07 Completed University o f Polysaccharide, 00:00:00 [facility] ical PPSV23 (PNEUMOVAX) Branch Influenza Virus 2018-01-07 Completed Universit y of Vaccine Quad IM 3+ 00:00:00 [facility] Influenza Vaccine 2013-10-01 Completed [facility] 00:00:00 Influenza Vaccine 2013-10-01 Completed [facility] 00:00:00 Tropicamide 0.5% 2013-06-28 Completed [facility] 15ml 00:00:00 Tropicamide 0.5% 2013-06-28 Completed [facility] 15ml 00:00:00 Tropicamide 0.5% 2013-06-28 Completed [facility] 15ml 00:00:00 Tropicamide 0.5% 2013-06-28 Completed [facility] 15ml 00:00:00 PPV 23 Pneumococcal 2013-03-[address] [facility] Polysaccaride 00:00:00 PPV 23 Pneumococcal 2013-03-[address] [facility] Polysaccaride 00:00:00 Vital Signs Vital Name Observation Time Observation Value Comments Source Heart rate 2022-03-23 23:35:00 70 /min [facility] Oxygen saturation in 2022-03-23 23:35:00 99 /min [facility] Arterial blood by [facility] Pulse oximetry Branch Systolic blood 2022-03-23 23:05:00 154 mm[Hg] Univer sity of [facility] Diastolic blood 2022-03-23 23:05:00 83 mm[Hg] Unive rsity of [facility] Respiratory rate 2022-03-23 23:05:00 18 /min General acute hospital Body temperature 2022-03-23 21:49:00 37 Jocelyne General acute hospital Body weight 2022-03-23 21:49:00 101.152 kg [facility] BMI 2022-03-23 21:49:00 32.00 kg/m2 [facility] Respitory Rate 2018-07-12 17:23:00 Ministerio Crawford Heart Rate 2018-07-12 17:23:00 [facility] Rob Temperature Oral (F) 2018-07-12 17:23:00 98 F Gerard Rivas Systolic (mm Hg) 2018-07-12 17:23:00 Pete Rivas Diastolic (mm Hg) 2018-07-12 17:23:00 Mem zachary Rivas BMI Calculated 2018-07-12 17:01:00 Ministerio al Bowie Weight 2018-07-12 17:01:00 [facility] Height 2018-07-12 17:01:00 180.34 cm Gerard Rivas Procedures Procedure Date / Time Performing Clinician Source Performed CONSENT/REFUSAL FOR 2022-03-23 21:42:08 Doctor Unassigned, No Un [facility] DIAGNOSIS AND TREATMENT Name Medical Branch [id number] 2020-10-26 00:00:00 SEEGE [facility] [id number] 2020-10-20 00:00:00 [facility] [id number] 2020-10-20 00:00:00 [facility] Christine [facility] [id number] 2020-10-20 00:00:00 [facility] [id number] 2020-10-20 00:00:00 [facility] [id number] 2020-10-20 00:00:00 [facility] [id number] 2020-10-20 00:00:00 [facility] Amputation [facility] Anterior spinal fusion [facility] for cervical spinal deformity BKA - Below knee [facility] n amputation Insertion of tunnelled [facility] dialysis catheter using fluoroscopic guidance Knee replacement [facility] n ORIF - Open reduction [facility] and internal fixation of fracture Tonsillectomy [facility] Plan of Care Planned Activity Planned Date Details Comments Source Future Scheduled Test 2018 00:00:00 Screening for [facility] malignant neoplasm of colon (procedure) [code = 419630959] Future Scheduled Test 2018 00:00:00 Screening for [facility] malignant neoplasm of colon (procedure) [code = 848809457] Future Scheduled Test 1980 00:00:00 COVID-19 Vaccine (1) [facility] [code = COVID-19 Vaccine (1)] Future Scheduled Test 1980 00:00:00 COVID-19 Vaccine (1) [facility] [code = COVID-19 Vaccine (1)] Encounters Start End Encounter Admission Attending Care Care Encounter Source Date/Time Date/Time Type Type Clinicians Facility Department ID 2022-02-27 Outpatient [facility] [id number] [place] 13:36:34 [id number] [facility] 2022-02-24 Outpatient [facility] [id number] [place] 09:21:19 [id number] [facility] 2022-02-22 Outpatient [facility] [id number] [place] 06:54:13 [id number] [facility] 2022-02-13 Outpatient [facility] [id number] [place] 17:29:23 [facility] 2021-09-14 Inpatient THALIA AparnaZURIMN [facility] [id number] [facility] 10:00:00 Nirav [id number] [facility] 2021-09-13 Inpatient THALIA Braun, HCAMN MMRI [id number] [facility] 10:00:00 Nirav [id number] [facility] 2021-04-02 Inpatient Angeline Coatesr [facility] DAYS [id number] [facility] 09:15:00 [id number] [facility] 2020-11-30 Inpatient Frankel, HCACL DAYS [id number] [facility] 14:00:00 Dhruvil [id number] [facility] 2020-11-27 Inpatient Frankel, HCACL DAYS [id number] [facility] 08:30:00 Dhruvil [id number] [facility] 2020-11-26 Inpatient THALIA Frankel, HCAMN MRAD [id number] [facility] 14:29:00 Dhruvil [id number] [facility] 2020-11-13 Inpatient EM EDDOC, HCAMN MRAD [id number] [facility] 13:08:00 GENERIC [id number] [facility] 2020-10-24 Inpatient HCACL SARA [id number] [facility] 21:12:00 [id number] [facility] 2020-10-24 Inpatient HCAMN KAITLYNN [id number] [facility] 17:30:00 [id number] [facility] 2020-10-16 Inpatient THALIA Frankel, HCACL DAYS [id number] [facility] 08:00:00 Dhruvil [id number] [facility] 2020-10-03 Inpatient HCAMN KAITLYNN [id number] [facility] 12:12:00 [id number] [facility] 2020-08-15 Inpatient HCAMN KAITLYNN [id number] [facility] 07:53:00 [facility] 2020-02-20 Inpatient Saroj Coates [facility] DAYS [id number] [facility] 08:15:00 [id number] [facility] 2022-03-23 2022-03-23 Emergency X CODY APPLE ERT [id number] Univers 16:51:00 18:37:00 CHIVO zuniga [facility] 2022-03-23 2022-03-23 Emergency Gina [facility] [id number] Univers 16:51:00 18:37:00 Chivo RENEE 350.1.13.10 i ty of [place]IM[place] 4.2.7.2.686 [facility] [id number] [facility] 084 Branch 2022-02-15 2022-02-15 [facility] [id number] Univers 11:00:00 11:00:00 JEROD leilay o f [facility] 2022-02-10 2022-02-10 [facility]phone [facility] [id number] Univers 00:00:00 00:00:00 Jerod RENEE 350.1.13.10 ity [facility] 4.2.7.2.686 [facility] [id number] Md dic[place] [id number] [facility] 2022-02-08 2022-02-08 Outpatient [facility] [id number] Univers 12:47:16 23:59:00 JEROD zuniga o [facility] 2022-01-26 2022-01-26 [facility] [id number] Univers 00:00:00 00:00:00 Cole Downey MULTISPEC 350.1.13.10 ity [facility] 4.2.7.2.686 [facility] [id number] [facility] [place] 312 Branch [facility] 2021-08-05 2021-08-05 Outpatient THALIA Frankel, HCACL DAYS [id number] [facility] 07:27:00 07:27:00 Dhruvil 64 [facility] 2021-08-05 2021-08-05 Outpatient THALIA Franekl, HCACL DAYS [id number] [facility] 07:27:00 07:27:00 Dhruvil [id number] [facility] 2021-08-04 2021-08-04 Outpatient Marlys, HCACL DAYS [id number] H[facility] 13:30:00 13:30:00 Dhruvil [id number] [facility] 2021-07-09 2021-07-10 Emergency EM Chao, HCAMN KAITLYNN [id number] HCA 21:31:00 01:20:00 Xi [id number] [facility] 2021-04-30 2021-04-30 Outpatient Saroj Coates HCANW REF [id number] [facility] 08:50:00 08:50:00 [id number] [facility] 2021-04-30 2021-04-30 Outpatient Saroj Carmona HCAMC DAYS [id number] H[facility] 02:24:00 02:24:00 [id number] [facility] 2021-04-29 2021-04-29 Telephone [facility] [id number] 00:00:00 00:00:00 Cole Downey MULTISPEC 350.1.13.10 IALTY 4.2.7.2.686 [place] [id number] AND KEV[facility] 2021-02-08 2021-02-08 [facility] [id number] [facility] 16:30:00 16:30:00 Dhruvil [id number] [facility] 2021-01-30 2021-01-31 Emergency Bull, Yuko S TRAUMA 1.2.84 [id number] [id number] 19:24:00 00:56:00 Mohamud Mann [place] 350.1.13.10 4.2.7.2.686 [id number] 2021-01-23 2021-01-23 Outpatient GCCOVIDV GCCOVIDV [id number] GCCOVID 00:00:00 00:00:00 V 2021-01-02 2021-01-02 Outpatient GCCOVIDV GCCOVIDV [id number] GCCOVID 00:00:00 00:00:00 V 2020-12-02 2020-12-02 Telephone [facility] [id number] 00:00:00 00:00:00 Cole Downey MULTISPEC 350.1.13.10 IALTY 4.2.7.2.686 [place] [id number] AND KEVIN [facility] 2020-11-24 2020-11-24 Case [facility] [id number] 00:00:00 00:00:00 Management Cole Downey MULTISPEC 350.1.13.10 IALTY 4.2.7.2.686 [place] [id number] AND KEVIN Villase[facility] 2020-10-20 2020-10-20 Outpatient Marlys, HCACL DAYS [id number] [facility] 10:15:00 10:15:00 Dhruvil [id number] [facility] 2020-09-29 2020-09-29 Outpatient Marlys, HCAMN MCTS [id number] [facility] 10:00:00 10:00:00 Dhruvil [id number] [facility] 2020-09-17 2020-09-17 Outpatient Fatoumata, HCAMN MCCL [id number] [facility] 09:00:00 09:00:00 Alfredo [id number] [facility] 2020-08-15 2020-08-15 Outpatient Balbir, HCACL LABO [id number] [facility] 14:17:00 14:17:00 Haydee [id number] [facility] 2020-02-20 2020-02-20 Outpatient Saroj Coates HCANW REF [id number] HCA 08:16:00 08:16:[id number] [facility] 2018-07-12 2018-07-12 Outpatient [facility] [id number] [facility] 15:45:00 21:00:[address] Results Test Description Test Time Test Comments Results Result Comments Source GLUCOSE BEDSIDE 2021-08-05 11:50:00 Test Item Value Reference Range Interpretation Comme nts GLUCOSE BEDSIDE (test code = 84 MG/DL 70-110 N Performed by certified bogger operator at [facility] BASIC METABOLIC [id number] 09:20:00 Test Item Value Reference Range Interpretation Comments SODIUM (test code = NA) 140 mEq/L 134-147 N POTASSIUM (test code = 5.1 mEq/L 3.4-5.0 H K) CHLORIDE (test code = 106 mEq/L 100-108 N CL) CARBON DIOXIDE (test 25 mEq/l 21-33 N code = CO2) ANION GAP (test code = 14 0-20 N GAP) GLUCOSE (test code = 89 mg/dL 70-110 N GLU) BLOOD UREA NITROGEN 39 mg/dL 7-18 H (test code = BUN) GLOMERULAR FILTRATION 8.0 90-95 L Units of measure = RATE (test code = GFR) ml/mi n/1.73 m2 CREATININE (test code = 7.2 mg/dL 0.6-1.3 H CREAT) CALCIUM (test code = 6.5 mg/dL 8.0-10.5 L CA) GLUCOSE [id number] 09:04:00 Test Item Value Reference Range Interpretation Comments GLUCOSE BEDSIDE (test 79 MG/DL 70-110 N [facility] med by certified code = GLUBED) bogger operator at [facility] COVID 19 Asymptomatic IH [id number] 15:30:00 Test Item Value Reference Range Interpretation Comments COVID 19 Asymptomatic Negative Negative A nega tive result is IH AG (test code = presumpti ve and should COVNONPUIAG) be confirmedwit h an FDA authorized mole cular assay, if neces juliette forpatient hakan gement.A positive result does not rule out co-inf ections withother patho gens.This test detects kelly th viable (live) and non-viable,SARS -CoV, and SARS-CoV-2. Malcolm t performance dep ends on theamount of vi yana (antigen) in th e sample.This malcolm t has not been FDA cleare d or approved; the t est hasbeen authori zed by FDA under an Em ergency Use Authorizati on(EUA) for use by labo ratories certified under the CLIA thatmeet the requirements to perform moderate, high or waivedcomplexit y tests. PROTHROMBIN [id number] 14:36:00 Test Item Value Reference Range Interpretation Comments PROTHROMBIN TIME 10.7 SECONDS 9.3-12.9 N PATIENT (test code = PTP) INTERNATIONAL NORMAL 1.0 0.8-1.2 N TARGET RATIO (test code = INR BY IN DICATION INR) Indication INR1. Prophyl axis of venous thrombos is 2.0 - 3. 0 (orthopedic justo bernard), Prophylaxis of venous thrombos is (other than hig h-risk surgery), Jessenia tment of Deep Vein Thrombosis/Pulm onary Embolism, Preve ntion of systemic emb olism - Tissue heart va lves, Acute Myocardia l Infarction (to prevent systemic embo lism), Valvular heart disease, Atri al Fibrillation, Bileaflet mecha nical valve in aortic position.2. Mec hanical prosthetic valv es (high risk), 2.5 - 3.5 Presence of Lupus Anticoagu lant or Antiphospholi pid Antibodies, Pre vention of systemic e mbolism - Acute Myocard ial Infarction (t o prevent recurre nt infarct). THROMBOPLASTIN TIME [id number] 14:36:00 Test Item Value Reference Range Interpretation Comments THROMBOPLASTIN TIME 33.9 Seconds 25.0-39.5 N Ther apeutic PARTIAL (test code = Range: 50.4 - 88.3 PTT) Seconds Effective 02/19/2019 BASIC METABOLIC [id number] 14:28:00 Test Item Value Reference Range Interpretation Comments SODIUM (test code = NA) 137 mEq/L 134-147 N POTASSIUM (test code = 4.7 mEq/L 3.4-5.0 N K) CHLORIDE (test code = 102 mEq/L 100-108 N CL) CARBON DIOXIDE (test 29 mEq/l 21-33 N code = CO2) ANION GAP (test code = 11 0-20 N GAP) GLUCOSE (test code = 83 mg/dL 70-110 N GLU) BLOOD UREA NITROGEN 29 mg/dL 7-18 H (test code = BUN) GLOMERULAR FILTRATION 9.7 90-95 L Units of measure = RATE (test code = GFR) ml/mi n/1.73 m2 CREATININE (test code = 6.1 mg/dL 0.6-1.3 H CREAT) CALCIUM (test code = 8.3 mg/dL 8.0-10.5 N CA) CBC W/AUTO [id number] 14:05:00 Test Item Value Reference Range Interpretation Comments WHITE BLOOD CELL (test code = 6.6 x10 3/uL 4.5-11.0 WBC) RED BLOOD CELL (test code = 3.67 x10 6/uL 4.00-5.60 L RBC) HEMOGLOBIN (test code = HGB) 10.1 g/dL 12.5-16.9 L HEMATOCRIT (test code = HCT) 31.5 % 37.5-50.7 L MEAN CELL VOLUME (test code = 85.8 fL 81.0-99.0 N MCV) MEAN CELL HGB (test code = MCH) 27.5 pg 27.0-33.0 N MEAN CELL HGB CONCETRATION 32.1 g/dL 33.0-37.0 L (test code = MCHC) RED CELL DISTRIBUTION WIDTH CV 14.7 % 11.5-14.5 H (test code = RDW) RED CELL DISTRIBUTION WIDTH SD 46.6 fL 37.0-54.0 N (test code = RDW-SD) PLATELET COUNT (test code = 200 x10 3/uL 150-400 N PLT) MEAN PLATELET VOLUME (test code 9.6 fL 7.0-9.0 H = MPV) NEUTROPHIL % (test code = NT%) 70.3 % 56.0-77.0 N IMMATURE GRANULOCYTE % (test 0.5 % 0.0-2.0 N code = IG%) LYMPHOCYTE % (test code = LY%) 15.4 % 14.0-32.0 N MONOCYTE % (test code = MO%) 8.8 % 4.8-9.0 N EOSINOPHIL % (test code = EO%) 4.2 % 0.3-3.7 H BASOPHIL % (test code = BA%) 0.8 % 0.0-2.0 N NUCLEATED RBC % (test code = 0.0 % 0-0 N NRBC%) NEUTROPHIL # (test code = NT#) 4.66 x10 3/uL 2.0-7.6 N IMMATURE GRANULOCYTE # (test 0.03 x10 3/uL 0.00-0.03 N code = IG#) LYMPHOCYTE # (test code = LY#) 1.02 x10 3/uL 1.0-3.8 N MONOCYTE # (test code = MO#) 0.58 x10 3/uL 0.1-0.8 N EOSINOPHIL # (test code = EO#) 0.28 x10 3/uL 0.0-0.2 H BASOPHIL # (test code = BA#) 0.05 x10 3/uL 0.0-0.2 N NUCLEATED RBC # (test code = 0.00 x10 3/uL 0.0-0.1 N NRBC#) MANUAL DIFF REQUIRED (test code NO = MDIFF) - XR CHEST 2 [id number] 00:00:00 [facility] : 1970 Sex: M FAX: Nirav Cohen MD [place]: St: PRE FAX: Beth Correia MD [phone] FAX: Tamika Hadley Name: ROSY MAGUIRE [facility] [place] : 1970 Age/S: 50/M [address] [place] [address] Unit #: [id number] Loc: [place] [address] Phys: Tamika Hadley [employer]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 Views: 2 views. PA and Lateral COMPARISON: CR XR CHEST 1V 10/26/2020 3:46 PM FINDINGS: Lungs: There are normal lung volumes without consolidation or interstitial oppacities. Pleural spaces: No pleural effusion. No pneumothorax. Heart/Mediastinum: The heart size is normal. The pulmonary vasculature is normal. The mediastinal contour is normal. The trachea is midline. Vasculature: Aortic arch calcifications. Diaphragm: There is elevation of the left hemidiaphragm. Bones/joints: No acute abnormality. IMPRESSION: No acute cardiopulmonary process. at 1453 Reported and signed by: Mason Pop M.D. CC: Nirav Braun; Beth Frankel MD; Tamika Hadley NP Technologist: RT Supriya(R) Trnscrd Date/Time/By: 08/04/2021 (698) : By: [email or web address] Orig Print D/T: S: 08/04/2021 (586) PAGE 1 Signed Report- XR KNEE 3 V [id number] 23:20:00 [facility] : 1970 Sex: M FAX: Nirav Cohen MD [place]: St: [facility] FAX: Gisel Dwyer MD Name: ROSY MAGUIRE [facility] : 1970 Age/S: 50/M [address] [facility] Unit #: [id number] Loc: [address] Phys: [place] [id number] Acct: [id number] Dis Date: Status: REG ER PHONE #: [phone] Exam Date: 07/09/20212314 FAX #: [phone] Reason: fall injury EXAMS: CPT CODE: [id number] XR KNEE [address] [place] [id number] Examination: Bilateral knees 3 views Location code: H60 Comparison: None Discussion: Clinical history is remarkable for trauma. Fell. Pain. Patient is status post below the right knee amputation. Stump is normal in appearance. No acute erosive changes are identified. Left knee prosthesis is identified and is in good position. There is no evidence for acute fracture. No lytic or blastic lesions identified. Vascular calcifications are noted. Impression: 1. Left knee prosthesis in good position. 2. No evidence for acute fracture or dislocation. 3. Status post right below knee dictation. Electronically Signed by HELEN WALLACE on 07/09 at 2320 Reported and signed by: HELEN WALLACE CC: Krysten RAO; Gisel Dwyer MD Technologist: Lisa Haines Trnwyrd Date/Time/By: 07/09/2021 (2320) : By: [email or web address] PAGE 1 Signed Report FAX: Nirav Cohen MD [place]: St: [facility] FAX: Gisel Dwyer MD Name: PRESLEYROSY [facility] : 1970 Age/S: 50/M [address] [facility] [address] Unit #: [id number] Loc: E.ERS2 [place], [place]: [place] [address] Acct: [id number] Dis Date: Status: REG ER PHONE #: [phone] Exam Date: 07/09/20212314 FAX #: [phone] Reason: fall injury EXAMS: CPT CODE: [id number] XR KNEE 3 [place] [address] <Continued> Orig Print D/T: S: 07/09/2021 (8816) PAGE 2 Signed Report- XR FOREARM 2 VIEWS [id number] 23:18:00 [facility] 1970 Sex: M FAX: Nirav Cohen MD [place]: St: REG FAX: Gisel Dwyer MD Name: PRESLEYROSY [facility] : 1970 Age/S: 50/M [address] [facility] Unit #: [id number] Loc: [address] Phys: [place] [address] Acct: [id number] Dis Date: Status: REG ER PHONE #: [phone] Exam Date: 07/09/2021 2315 FAX #: [phone] Reason: fall injury EXAMS: CPT CODE: [id number] XR [place] [address] [place] [id number] Examination: Right hand 3 views, right forearm 2 views and right humerus 2 views Location code: H60 Comparison: None Discussion: Clinical history is remarkable for patient fell. Pain. There is no evidence for acute fracture or dislocation in the hand, forearm or humerus. No lytic or blastic lesions are noted. Postsurgical changes identified in the distal radius with surgical plate and screws traversing anold healed fracture. 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 No erosive changes identified. Impression: 1. No evidence for acute fracture involving the right hand, right forearm or right humerus. 2. 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 Surgical plate and screws traversing a healed distal radial fracture. at 2318 Reported and signed by: HELEN WALLACE CC: Nirav Braun MD; Gisel Dwyer MD Technologist: Lisa Haines Trnwyrd Date/Time/By: 07/09/2021 (7392) : By: [email or web address] PAGE 1 Signed Report FAX: Nirav Cohen MD [place]: St: REG FAX: Gisel Dwyer MD Name: PRESLEYROSY [facility] : 1970 Age/S: 50/M [address] [facility] Unit #: [id number] Loc: E.[address] [place] [address] [place]: [place] [address] Acct: [id number] Dis Date: Status: REG ER PHONE #: [phone] Exam Date: 07/09/2021 231 FAX #: [phone] Reason: fall injury EXAMS: CPT CODE: [id number] XR [place] [address] [place] [address] <Continued> Orig Print D/T: S: 07/09/2021 (4430) PAGE 2 Signed Report- XR HUMERUS 2 + V [id number] 23:18:00 [facility] : 1970 Sex: M FAX: Nirav Cohen MD [place]: St: REG FAX: Gisel Dwyer MD Name: ROSY MAGUIRE [facility] : 1970 Age/S: 50/M [address] [facility] Unit #: [id number] Loc: [address] Phys: [place] [address] Acct: [id number] Dis Date: Status: REG ER PHONE #: [phone] Exam Date: 07/09/20212314 FAX #: [phone] Reason: fall injury EXAMS: CPT CODE: [id number] XR HUMERUS 2 + V RT [address] Examination: Right hand 3 views, right forearm 2 views and right humerus 2 views Location code: H60 Comparison: None Discussion: Clinical history is remarkable for patient fell. Pain. There is no evidence for acute fracture or dislocation in the hand, forearm or humerus. No lytic or blastic lesions are noted. Postsurgical changes identified in the distal radius with surgical plate and screws traversing anold healed fracture. 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 No erosive changes identified. Impression: 1. No evidence for acute fracture involving the right hand, right forearm or right humerus. 2. 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 Surgical plate and screws traversing a healed distal radial fracture. at 2318 Reported and signed by: HELEN WALLACE CC: Nirav Braun MD; Gisel Dwyer MD Technologist: Lisa Haines Trnscrd Date/Time/By: 07/09/2021 (8542) : By: [email or web address] PAGE 1 Signed Report FAX: Nirav Cohen MD [place]: St: REG FAX: Gisel Dwyer MD Name: ROSY MAGUIRE [facility] : 1970 Age/S: 50/M [address] [facility] Unit #: [id number] Loc: [address] Phys: [place] [address] Acct: [id number] Dis Date: Status: REG ER PHONE #: [phone] Exam Date: 07/09/20212314 FAX #: [phone] Reason: fall injury EXAMS: CPT CODE: [id number] XR HUMERUS 2 + V [place] [address] <Continued> Orig Print D/T: S: 07/09/2021 (0397) PAGE 2 Signed Report- XR HAND 3 + V [id number] 23:18:00 [facility] : 1970 Sex: M FAX: Nirav Cohen MD [place]: St: REG FAX: Gisel Dwyer MD Name: ROSY MAGUIRE [facility] : 1970 Age/S: 50/M [address] [facility] Unit #: [id number] Loc: E.ERS[address] [place], [place]: [place] [address] Acct: [id number] Dis Date: Status: REG ER PHONE #: [phone] Exam Date: 07/09/20212314 FAX #: [phone] Reason: fall injury EXAMS: CPT CODE: [id number] XR HAND 3 + V RT [address]498 Examination: Right hand 3 views, right forearm 2 views and right humerus 2 views Location code: H60 Comparison: None Discussion: Clinical history is remarkable for patient fell. Pain. There is no evidence for acute fracture or dislocation in the hand, forearm or humerus. No lytic or blastic lesions are noted. Postsurgical changes identified in the distal radius with surgical plate and screws traversing anold healed fracture. 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 No erosive changes identified. Impression: 1. No evidence for acute fracture involving the right hand, right forearm or right humerus. 2. 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 Surgical plate and screws traversing a healed distal radial fracture. at 2318 Reported and signed by: HELEN WALLACE CC: Nirav Braun MD; Gisel Dwyer MD Technologist: Lisa Haines Trnscrd Date/Time/By: 07/09/2021 (2318) : By: [email or web address] PAGE 1 Signed Report FAX: Nirav Cohen MD [place]: St: REG FAX: Gisel Dwyer MD Name: ROSY MAGUIRE [facility] : 1970 Age/S: 50/M [address] [facility] Unit #: [id number] Loc: E.[facility] [place], [place]: [place] [address] Acct: [id number] Dis Date: Status: REG ER PHONE #: [phone] Exam Date: 07/09/2021 2315 FAX #: [phone] Reason: fall injury EXAMS: CPT CODE: [id number] XR HAND 3 + V RT 155[address] <Continued> Orig Print D/T: S: 07/09/2021 (4985) PAGE 2 Signed ReportSURGICAL [id number] 17:11:00 Test Item Value Reference Range Interpretation Comments SURGICAL SPECIMENS (test code = SURG) RUN DATE: 05/03/21 [facility] - LAB PAGE 1 RUN TIME: 1711 Specimen Inquiry RUN USER: INTERFACE PATIENT: ROSY MAGUIRE [facility] #: [id number] AGE/SX: 50/M ROOM: RE04/30/21REG DR: Saroj Coates MD (GEN JUSTO : [birth year] BED: DIS: STATUS: [facility] TLOC: SPEC #: [id number] RECD: 04/30/21 STATUS: NEIL RELeonard #: [id number] BENEDICTO: 04/30/[address] [facility] DR: Saroj Coates MD (GEN SURG) ENTERED: 04/30/21 SP TYPE: SURG OTHR DR: Nirav Braun MD ORDERED: 23331, PATH SPEC, H E STAIN HISTOLOGY: TISSUE ID BLK PCS GHADA LEV / PROCEDURE DISPOSITION ____ ___ ___ ___ ___ PILONIDAL CYST A 1 1 TISSUES: A. PILONIDAL CYST - Pilonidal Cyst CLINICAL HISTORY Pilonidal cyst/abscess. FINAL DIAGNOSIS PILONIDAL CYST, EXCISION: - SKIN WITH SINUS TRACT LINED BY INFLAMED GRANULATION TISSUE, CONSISTENT WITH PILONIDAL CYST CPT 88937 GROSS DESCRIPTION Received in formalin labeled with the patient's name and "pilonidal cyst/abscess" are two irregularly-shaped fragments of skin and underlying soft tissue, upon reapproximation measuring 4.0 x 3.5 x 3.0 cm. The skin (3.0 x 1.0 cm) is grossly unremarkable sandoval-coker. The cut surface shows an abscess cavity, 1.2 cm in diameter. Forming Press Operator sections are submitted in one cassette. CM/ph MICROSCOPIC DESCRIPTION PERFORMED -- Signed SIGNATURE ON FILE Mel Cleaning MD 05/03/21 1711 END OF REPORT BASIC METABOLIC [id number] 07:30:00 Test Item Value Reference Range Interpretation Comments SODIUM (test code = 133 mmol/L 136-145 L Please n ote: New NA) Reference Range Dec 2020 POTASSIUM (test code 4.3 mmol/L 3.5-5.1 N = K) CHLORIDE (test code 97 mmol/L 98-107 L Please n ote: New = CL) Reference Range Dec 2020 CARBON DIOXIDE (test 24 mmol/L 20-31 N Please note: New code = CO2) Reference Range Dec 2020 GLUCOSE (test code = 114 mg/dL 74-106 H Please note: New GLU) Reference Range Dec 2020 BLOOD UREA NITROGEN 74 mg/dL 9-23 H Please n ote: New (test code = BUN) Reference Range Dec 2020 GLOMERULAR 4 >60 L The estimated FILTRATION RATE glomerular f iltration (test code = GFR) rate is co mputed usingpatient ra ce, age (>18), sex, and serum creatinine. If anyof the needed data elements are mi ssing the Laboratory cannot compute an yesi mation of the glomerul ar filtration rate . CREATININE (test 13.60 mg/dL 0.70-1.30 Critical Va lue code = CREAT) reported toFir st Name:LALITA Last Name:VANNESSA BLACK READ BACK AND SHAYNA PAGE, on 04/30/21, @ 1411.Please not e: New Reference Range Dec 2020 CALCIUM (test code = 6.6 mg/dL 8.7-10.4 L Please note: New CA) Reference Range Dec 2020 COVID Asymptomatic IH [id number] 13:16:00 Test Item Value Reference Interpretation Comments Range COVID Negative Negative A negative resu lt does not Asymptomatic IH preclude the SARS-COV-2 NTX (test code = viralinfect ion and should not COVNONPUINTX) be used as the sole basis forpatient hakan gement decisions. Nega tive results must becombined with clinical observations, p atient history, andepidemiologi josephine information. Vi ral levels in clinicalsamples below the detection limit of the assay could lead tone gative results. This test was p erformed using the Logix Smart TM COVID-19 PCRassay. This test was developed and i ts performancechar acteristics were determined by [facility]. Thi s test has notbeen FDA kyleigh ared or approved. This test is authorized by t heFDA under Emergency Use Authorization(E UA). The EUA willremain in e ffect unless it is terminated o r revoked by FDA . Testing p arameters have not been valida darrion for screeningasympt omatic patients. This test was validated accor ding to the FDA's guidanced ocument "Policy for Diagnostics testing in LaboratoriesCer tified to Perform High Co mplexity Testing under C ROSALINDA". First test? UnknownEmployed in Healthcare? UnknownSymptomatic as defined by CDC? UnknownHospitalizeddue to COVID? UnknownIn ICU due to COVID? UnknownResident in a congregate care setting? Unknown? NoAge at collection: YBASIC METABOLIC [id number] 12:02:00 Test Item Value Reference Range Interpretation Comments SODIUM (test code = 137 mmol/L 136-145 N Please n ote: New NA) Reference Range Dec 2020 POTASSIUM (test code 4.9 mmol/L 3.5-5.1 N = K) CHLORIDE (test code 101 mmol/L 98-107 N Please n ote: New = CL) Reference Range Dec 2020 CARBON DIOXIDE (test 23 mmol/L 20-31 N Please note: New code = CO2) Reference Range Dec 2020 GLUCOSE (test code = 113 mg/dL 74-106 H Please note: New GLU) Reference Range Dec 2020 BLOOD UREA NITROGEN 73 mg/dL 9-23 H Please n ote: New (test code = BUN) Reference Range Dec 2020 GLOMERULAR 4 >60 L The estimated FILTRATION RATE glomerular f iltration (test code = GFR) rate is co mputed usingpatient ra ce, age (>18), sex, and serum creatinine. If anyof the needed data elements are mi ssing the Laboratory cannot compute an yesi mation of the glomerul ar filtration rate . CREATININE (test 13.80 mg/dL 0.70-1.30 Critical Ny lue code = CREAT) reported toFir st Name:SALLY Last Name:DOMI JONES READ BACK AND VERIFIEDby BEBETO ZAMBRANO, on 04/27/21, @ 1202.Please not e: New Reference Range Dec 2020 CALCIUM (test code = 6.3 mg/dL 8.7-10.4 L Please note: New CA) Reference Range Dec 2020 BASIC METABOLIC [id number] 11:50:00 Test Item Value Reference Range Interpretation Comments SODIUM (test code = 137 mmol/L 136-145 N Please n ote: New NA) Reference Range Dec 2020 POTASSIUM (test code = 4.9 mmol/L 3.5-5.1 N K) CHLORIDE (test code = 101 mmol/L 98-107 N Please note: New CL) Reference Range Dec 2020 CARBON DIOXIDE (test 23 mmol/L 20-31 N Please note: New code = CO2) Reference Range Dec 2020 GLUCOSE (test code = 113 mg/dL 74-106 H Please note: New GLU) Reference Range Dec 2020 BLOOD UREA NITROGEN 73 mg/dL 9-23 H Please n ote: New (test code = BUN) Reference Range Dec 2020 GLOMERULAR FILTRATION >60 RATE (test code = GFR) CREATININE (test code mg/dL 0.70-1.30 = CREAT) CALCIUM (test code = 6.3 mg/dL 8.7-10.4 L Please note: New CA) Reference Range Dec 2020 CBC W/AUTO [id number] 11:25:00 Test Item Value Reference Range Interpretation Comments WHITE BLOOD CELL (test code = 7.8 x10 3/uL 4.8-10.8 N WBC) RED BLOOD CELL (test code = 4.46 x10 6/uL 4.70-6.10 L RBC) HEMOGLOBIN (test code = HGB) 12.2 g/dL 14.0-18.0 L HEMATOCRIT (test code = HCT) 38.4 % 42.0-52.0 L MEAN CELL VOLUME (test code = 86.1 fL 80.0-94.0 N MCV) MEAN CELL HGB (test code = MCH) 27.4 pg 27-31 N MEAN CELL HGB CONCENTRATION 31.8 G/DL 33-36.5 L (test code = MCHC) RED CELL DISTRIBUTION WIDTH 13.9 % 12.9-16.9 N (test code = RDW) PLATELET COUNT (test code = 196 x10 3/uL 150-440 N PLT) MEAN PLATELET VOLUME (test code 9.8 fL 8.9-12.4 N = MPV) NEUTROPHIL % (test code = NT%) 74.0 % 42.2-75.2 N LYMPHOCYTE % (test code = LY%) 9.6 % 20.5-51.1 L MONOCYTE % (test code = MO%) 10.1 % 1.7-9.3 H EOSINOPHIL % (test code = EO%) 5.2 % 0.0-7.0 N BASOPHIL % (test code = BA%) 0.6 % 0-2.5 N NEUTROPHIL # (test code = NT#) 5.77 x10 3/uL 1.80-7.70 N LYMPHOCYTE # (test code = LY#) 0.75 x10 3/uL 1.00-4.80 L MONOCYTE # (test code = MO#) 0.79 x10 3/uL 0.00-0.80 N EOSINOPHIL # (test code = EO#) 0.41 x10 3/uL 0.00-0.45 N BASOPHIL # (test code = BA#) 0.05 x10 3/uL 0.0-0.20 N [id number] 14:50:00 Test Item Value Reference Range Interpretation Comments GLUBED (test code = GLUBED) 109 MG/DL 70-105 H [id number] 08:36:00 Test Item Value Reference Range Interpretation Comments POTASSIUM (test code = K) 4.9 mmol/L 3.5-5.1 N COVID Asymptomatic IH [id number] 10:58:00 Test Item Value Reference Interpretation Comments Range COVID Negative Negative A negative resu lt does not Asymptomatic IH preclude the SARS-COV-2 NTX (test code = viralinfect ion and should not COVNONPUINTX) be used as the sole basis forpatient hakan gement decisions. Nega tive results must becombined with clinical observations, p atient history, andepidemiologi josephine information. Vi ral levels in clinicalsamples below the detection limit of the assay could lead tone gative results. This test was p erformed using the Logix Smart TM COVID-19 PCRassay. This test was developed and i ts performancechar acteristics were determined by [facility]. Thi s test has notbeen FDA kyleigh ared or approved. This test is authorized by t heFDA under Emergency Use Authorization(E UA). The EUA willremain in e ffect unless it is terminated o r revoked by FDA . Testing p arameters have not been valida darrion for screeningasympt omatic patients. This test was validated accor ding to the FDA's guidanced ocument "Policy for Diagnostics testing in LaboratoriesCer tified to Perform High Co mplexity Testing under C ROSALINDA". First test? UnknownEmployed in Healthcare? UnknownSymptomatic as defined by CDC? UnknownHospitalizeddue to COVID? UnknownIn ICU due to COVID? UnknownResident in a congregate care setting? Unknown? NoAge at collection: YBASIC METABOLIC [id number] 12:16:00 Test Item Value Reference Range Interpretation Comments SODIUM (test code = mmol/L 136-145 NA) POTASSIUM (test code mmol/L 3.5-5.1 = K) CHLORIDE (test code mmol/L 98-107 = CL) CARBON DIOXIDE (test mmol/L 20-31 code = CO2) GLUCOSE (test code = mg/dL 74-106 GLU) BLOOD UREA NITROGEN mg/dL 9-23 (test code = BUN) GLOMERULAR 4 >60 L The estimated FILTRATION RATE glomerular f iltration (test code = GFR) rate is co mputed usingpatient ra ce, age (>18), sex, and serum creatinine. If anyof the needed data elements are mi ssing the Laboratory cannot compute an yesi mation of the glomerul ar filtration rate . CREATININE (test 14.50 mg/dL 0.70-1.30 Critical Ny lue code = CREAT) reported Robb castillo Name:ILANA Mackey Name:LAZARO MATHIS READ BACK AND VERIFIEDby P.LA B.CK, on 03/29/21, @ 1216.Please not e: New Reference Range Dec 2020 CALCIUM (test code = mg/dL 8.7-10.4 CA) BASIC METABOLIC [id number] 12:16:00 Test Item Value Reference Range Interpretation Comments SODIUM (test code = 140 mmol/L 136-145 N Please n ote: New NA) Reference Range Dec 2020 POTASSIUM (test code 4.7 mmol/L 3.5-5.1 N = K) CHLORIDE (test code 104 mmol/L 98-107 N Please n ote: New = CL) Reference Range Dec 2020 CARBON DIOXIDE (test 26 mmol/L 20-31 N Please note: New code = CO2) Reference Range Dec 2020 GLUCOSE (test code = 100 mg/dL 74-106 N Please note: New GLU) Reference Range Dec 2020 BLOOD UREA NITROGEN 70 mg/dL 9-23 H Please n ote: New (test code = BUN) Reference Range Dec 2020 GLOMERULAR 4 >60 L The estimated FILTRATION RATE glomerular f iltration (test code = GFR) rate is co mputed usingpatient ra ce, age (>18), sex, and serum creatinine. If anyof the needed data elements are mi ssing the Laboratory cannot compute an yesi mation of the glomerul ar filtration rate . CREATININE (test 14.50 mg/dL 0.70-1.30 [facility] lue code = CREAT) reported Robb castillo Name:ILANA Mackey Name:LAZARO MATHIS READ BACK AND VERIFIEDby P.LA B.CK, on 03/29/21, @ 1216.Please not e: New Reference Range Dec 2020 CALCIUM (test code = 6.8 mg/dL 8.7-10.4 L Please note: New CA) Reference Range Dec 2020 CBC W/AUTO [id number] 11:54:00 Test Item Value Reference Range Interpretation Comments WHITE BLOOD CELL (test code = 8.8 x10 3/uL 4.8-10.8 N WBC) RED BLOOD CELL (test code = 4.31 x10 6/uL 4.70-6.10 L RBC) HEMOGLOBIN (test code = HGB) 11.7 g/dL 14.0-18.0 L HEMATOCRIT (test code = HCT) 37.3 % 42.0-52.0 L MEAN CELL VOLUME (test code = 86.5 fL 80.0-94.0 N MCV) MEAN CELL HGB (test code = MCH) 27.1 pg 27-31 N MEAN CELL HGB CONCENTRATION 31.4 G/DL 33-36.5 L (test code = MCHC) RED CELL DISTRIBUTION WIDTH 13.9 % 12.9-16.9 N (test code = RDW) PLATELET COUNT (test code = 227 x10 3/uL 150-440 N PLT) MEAN PLATELET VOLUME (test code 9.4 fL 8.9-12.4 N = MPV) NEUTROPHIL % (test code = NT%) 73.6 % 42.2-75.2 N LYMPHOCYTE % (test code = LY%) 11.6 % 20.5-51.1 L MONOCYTE % (test code = MO%) 8.9 % 1.7-9.3 N EOSINOPHIL % (test code = EO%) 4.9 % 0.0-7.0 N BASOPHIL % (test code = BA%) 0.5 % 0-2.5 N NEUTROPHIL # (test code = NT#) 6.51 x10 3/uL 1.80-7.70 N LYMPHOCYTE # (test code = LY#) 1.02 x10 3/uL 1.00-4.80 N MONOCYTE # (test code = MO#) 0.79 x10 3/uL 0.00-0.80 N EOSINOPHIL # (test code = EO#) 0.43 x10 3/uL 0.00-0.45 N BASOPHIL # (test code = BA#) 0.04 x10 3/uL 0.0-0.20 N - CT ABD PELVIS W/O [id number] 16:57:00 [facility] : 1970 Sex: M Name: ROSY AMGUIRE [facility] : 1969 Age/S: 50 / M [address] [place] [address] Blvd Unit #: [id number] Loc: [place] [address] Phys: Beth Frankel MD Acct: [id number] Dis Date: Status: REG CLI PHONE #: [phone] Exam Date: 02/08/2021 161 FAX #: [phone] Reason: T85.691A, MALFUNCTION OF PD CATHETER. EXAMS: CPT CODE: [id number] CT ABD PELVIS W/O CONT 73212 CT abdomen and pelvis without contrast dated 02/08/2021 INDICATION: T 85.691A. Malfunction of peritoneal dialysis catheter. COMPARISON: CT abdomen dated 10/24/2020 TECHNIQUE: A CT of the abdomen pelvis was performed using helical images from the thoracic outlet through the pubic symphysis with subsequent sagittal and coronal reconstruction. IV CONTRAST: None. GI CONTRAST: None. CT imaging performed at this location utilizes radiation dose optimization techniques which include one or more of the followin) Automated exposure control; 2) Adjustment of mA and/or kV; 3) Use of iterative reconstructive technique. CT radiation dose DLP (mGy-cm): 505. FINDINGS:SOLID ORGANS: No acute CT abnormalities of the liver, spleen, pancreas, adrenal glands or leftkidney are identified. There is no evidence of left renal collecting system obstruction or calcified renal collecting system stone. The patient is status post right nephrectomy. BILIARY: The gallbladder is normally distended. No significant biliary ductal dilatation is identified. BOWEL: Bowel assessment is limited by the absence of bowel contrast. No gross abnormalities of the stomach or duodenum are identified. No small bowel dilatation is present to indicate acute obstruction. The appendix is identified and does not appear acutely inflamed. The colon demonstrates no evidence of diverticular disease or acuteinflammatory wall thickening. PERITONEUM: A small volume of subhepatic free intraperitoneal fluid is identified. There is no evidence of free intraperitoneal air. A peritoneal dialysis catheter is identified to be coiled in the pelvis. No loculated fluid collections are identified at the dialysis catheter tip. RETROPERITONEUM: The abdominal aortais normal in caliber. Extensive vascular calcification is noted. There is no evidence ofPAGE 1 Signed Report (CONTINUED) Name: ROSY MAGUIRE [facility] : 1970 Age/S: 50 / M [address] [place] [address] Blvd Unit #: [id number] Loc: [place] [address] Phys: Beth Frankel MD Acct: [id number] Dis Date: Status: REG CLI PHONE #: [phone] Exam Date: 02/08/2021 1617 FAX #: [phone] Reason: T85.691A, MALFUNCTION OF PD CATHETER. EXAMS: CPT CODE: [id number] CT ABD PELVIS W/O CONT 51936 <Continued> retroperitoneal mass or adenopathy. PELVIS: Bladder assessment is limited by low bladder volume. No enlarged pelvic lymph nodes are identified. LOWER CHEST: The lung bases appear clearof acute disease. Left diaphragmatic elevation is noted with scarring or atelectasis in the left base. ADDITIONAL FINDINGS: None. IMPRESSION: 1. No acute CT abnormalities of the abdomen or pelvis are detected. SL: 131 at 1657 Reported and signed by: Chuck Harris M.D. CC: Nirav Braun; Beth Frankel MD Technologist:RT Lupe(R) CTDI: DLP: Trnscb Date/Time: 02/08/2021 (1657) t.PARAG Orig Print D/T: S: 02/08/2021 (1700) PAGE 2 Signed ReportGLUBED 2020-11-30 16:25:00 Test Item Value Reference Range Interpretation Comments GLUBED (test code = 108 MG/DL 70-110 N Performe d by certified GLUBED) bogger operator at [facility] BASIC METABOLIC [id number] 13:08:00 Test Item Value Reference Range Interpretation Comments SODIUM (test code = NA) 136 mEq/L 134-147 N POTASSIUM (test code = 4.6 mEq/L 3.4-5.0 N K) CHLORIDE (test code = 102 mEq/L 100-108 N CL) CARBON DIOXIDE (test 27 mEq/l 21-33 N code = CO2) ANION GAP (test code = 11 0-20 N GAP) GLUCOSE (test code = 83 mg/dL 70-110 N GLU) BLOOD UREA NITROGEN 48 mg/dL 7-18 H (test code = BUN) GLOMERULAR FILTRATION 6.3 90-95 L Units of measure = RATE (test code = GFR) ml/mi n/1.73 m2 CREATININE (test code = 8.9 mg/dL 0.6-1.3 H CREAT) CALCIUM (test code = 8.4 mg/dL 8.0-10.5 N CA) [id number] 13:01:00 Test Item Value Reference Range Interpretation Comments GLUBED (test code = 66 MG/DL 70-110 L Performe d by certified GLUBED) bogger operator at [facility] CBC W/AUTO [id number] 12:58:00 Test Item Value Reference Range Interpretation Comments WHITE BLOOD CELL (test code = 4.5 x10 3/uL 4.5-11.0 N WBC) RED BLOOD CELL (test code = 4.51 x10 6/uL 4.00-5.60 N RBC) HEMOGLOBIN (test code = HGB) 12.6 g/dL 12.5-16.9 N HEMATOCRIT (test code = HCT) 38.8 % 37.5-50.7 N MEAN CELL VOLUME (test code = 86.0 fL 81.0-99.0 N MCV) MEAN CELL HGB (test code = MCH) 27.9 pg 27.0-33.0 N MEAN CELL HGB CONCETRATION 32.5 g/dL 33.0-37.0 L (test code = MCHC) RED CELL DISTRIBUTION WIDTH CV 14.2 % 11.5-14.5 N (test code = RDW) RED CELL DISTRIBUTION WIDTH SD 44.7 fL 37.0-54.0 N (test code = RDW-SD) PLATELET COUNT (test code = 132 x10 3/uL 150-400 L PLT) MEAN PLATELET VOLUME (test code 9.8 fL 7.0-9.0 H = MPV) NEUTROPHIL % (test code = NT%) 60.1 % 56.0-77.0 N IMMATURE GRANULOCYTE % (test 0.2 % 0.0-2.0 N code = IG%) LYMPHOCYTE % (test code = LY%) 24.7 % 14.0-32.0 N MONOCYTE % (test code = MO%) 8.4 % 4.8-9.0 N EOSINOPHIL % (test code = EO%) 5.7 % 0.3-3.7 H BASOPHIL % (test code = BA%) 0.9 % 0.0-2.0 N NUCLEATED RBC % (test code = 0.0 % 0-0 N NRBC%) NEUTROPHIL # (test code = NT#) 2.72 x10 3/uL 2.0-7.6 N IMMATURE GRANULOCYTE # (test 0.01 x10 3/uL 0.00-0.03 N code = IG#) LYMPHOCYTE # (test code = LY#) 1.12 x10 3/uL 1.0-3.8 N MONOCYTE # (test code = MO#) 0.38 x10 3/uL 0.1-0.8 N EOSINOPHIL # (test code = EO#) 0.26 x10 3/uL 0.0-0.2 H BASOPHIL # (test code = BA#) 0.04 x10 3/uL 0.0-0.2 N NUCLEATED RBC # (test code = 0.00 x10 3/uL 0.0-0.1 N NRBC#) MANUAL DIFF REQUIRED (test code NO = MDIFF) CBC W/AUTO [id number] 12:55:00 Test Item Value Reference Range Interpretation Comments WHITE BLOOD CELL (test code = WBC) x10 3/uL 4.5-11.0 RED BLOOD CELL (test code = RBC) x10 6/uL 4.00-5.60 HEMOGLOBIN (test code = HGB) 12.6 g/dL 12.5-16.9 N HEMATOCRIT (test code = HCT) 38.8 % 37.5-50.7 N MEAN CELL VOLUME (test code = MCV) fL 81.0-99.0 MEAN CELL HGB (test code = MCH) pg 27.0-33.0 MEAN CELL HGB CONCETRATION (test g/dL 33.0-37.0 code = MCHC) RED CELL DISTRIBUTION WIDTH CV % 11.5-14.5 (test code = RDW) PLATELET COUNT (test code = PLT) x10 3/uL 150-400 NEUTROPHIL % (test code = NT%) % 56.0-77.0 LYMPHOCYTE % (test code = LY%) % 14.0-32.0 NEUTROPHIL # (test code = NT#) x10 3/uL 2.0-7.6 LYMPHOCYTE # (test code = LY#) x10 3/uL 1.0-3.8 MANUAL DIFF REQUIRED (test code = MDIFF) Novel Coronavirus 2018 [id number] 06:55:00 Test Item Value Reference Range Interpretation Comments Novel Coronavirus Negative Negative Positive r esults are 2019 Inhouse (test indicativ e of the presence code = COVNONPUI) ofSARS-CoV -2 RNA, clinical correlation wit h patient historyand othe r diagnostic info rmation is necessary to determinepatien t infection status. Positiv e results do not rule out bacterial infection or co -infection with other viru ses. Negative result s do not preclude SARS-C oV-2 infection andsh ould not be used as the amanda e basis for patient managementdecis ions. Negative result s must be combined with otherclinical observations, p atient history, and epidemiological information . Detection of SARS-CoV-2 RNA may be affe cted bysample collec tion methods, storag e conditions, and /or stageof infection. Miranda l RNA mutations, vacc inations, antiviraltherap eutics, antibiotics, chemotherapeuti c orimmunosuppres german drugs have not been e valuated for effectson d etection. Results are for the identification of SARS-CoV-2 RNA usingthe ecoVent M2000 Sy stem under the FDA Emergen cy UseAuthorizatio n. The testing is perf ormed by personnelabdias d in the procedures for the Tadeo M2000 molecular diagnostic SARS-CoV-2 assa y in vitro. BASIC METABOLIC [id number] 12:58:00 Test Item Value Reference Range Interpretation Comments SODIUM (test code = NA) 139 mEq/L 134-147 N POTASSIUM (test code = 4.0 mEq/L 3.4-5.0 N K) CHLORIDE (test code = 101 mEq/L 100-108 N CL) CARBON DIOXIDE (test 32 mEq/l 21-33 N code = CO2) ANION GAP (test code = 11 0-20 N GAP) GLUCOSE (test code = 88 mg/dL 70-110 N GLU) BLOOD UREA NITROGEN 25 mg/dL 7-18 H (test code = BUN) GLOMERULAR FILTRATION 10.7 90-95 L Units of measure = RATE (test code = GFR) ml/mi n/1.73 m2 CREATININE (test code = 5.6 mg/dL 0.6-1.3 H CREAT) CALCIUM (test code = 9.2 mg/dL 8.0-10.5 N CA) PROTHROMBIN [id number] 12:47:00 Test Item Value Reference Range Interpretation Comments PROTHROMBIN TIME 10.7 SECONDS 9.3-12.9 N PATIENT (test code = PTP) INTERNATIONAL NORMAL 1.0 0.8-1.2 N TARGET RATIO (test code = INR BY IN DICATION INR) Indication INR1. Prophyl axis of venous thrombos is 2.0 - 3. 0 (orthopedic justo bernard), Prophylaxis of venous thrombos is (other than hig h-risk surgery), Jessenia tment of Deep Vein Thrombosis/Pulm onary Embolism, Preve ntion of systemic emb olism - Tissue heart va lves, Acute Myocardia l Infarction (to prevent systemic embo lism), Valvular heart disease, Atri al Fibrillation, Bileaflet mecha nical valve in aortic position.2. Mec hanical prosthetic valv es (high risk), 2.5 - 3.5 Presence of Lupus Anticoagu lant or Antiphospholi pid Antibodies, Pre vention of systemic e mbolism - Acute Myocard ial Infarction (t o prevent recurre nt infarct). THROMBOPLASTIN TIME [id number] 12:47:00 Test Item Value Reference Range Interpretation Comments THROMBOPLASTIN TIME 36.5 Seconds 25.0-39.5 N Ther apeutic PARTIAL (test code = Range: 50.4 - 88.3 PTT) Seconds Effective 02/19/2019 CBC W/AUTO [id number] 12:35:00 Test Item Value Reference Range Interpretation Comments WHITE BLOOD CELL (test code = 4.7 x10 3/uL 4.5-11.0 N WBC) RED BLOOD CELL (test code = 4.74 x10 6/uL 4.00-5.60 N RBC) HEMOGLOBIN (test code = HGB) 13.0 g/dL 12.5-16.9 N HEMATOCRIT (test code = HCT) 41.0 % 37.5-50.7 N MEAN CELL VOLUME (test code = 86.5 fL 81.0-99.0 N MCV) MEAN CELL HGB (test code = MCH) 27.4 pg 27.0-33.0 N MEAN CELL HGB CONCETRATION 31.7 g/dL 33.0-37.0 L (test code = MCHC) RED CELL DISTRIBUTION WIDTH CV 14.3 % 11.5-14.5 N (test code = RDW) RED CELL DISTRIBUTION WIDTH SD 45.7 fL 37.0-54.0 N (test code = RDW-SD) PLATELET COUNT (test code = 132 x10 3/uL 150-400 L PLT) MEAN PLATELET VOLUME (test code 10.5 fL 7.0-9.0 H = MPV) NEUTROPHIL % (test code = NT%) 59.4 % 56.0-77.0 N IMMATURE GRANULOCYTE % (test 0.2 % 0.0-2.0 N code = IG%) LYMPHOCYTE % (test code = LY%) 23.0 % 14.0-32.0 N MONOCYTE % (test code = MO%) 10.6 % 4.8-9.0 H EOSINOPHIL % (test code = EO%) 5.7 % 0.3-3.7 H BASOPHIL % (test code = BA%) 1.1 % 0.0-2.0 N NUCLEATED RBC % (test code = 0.0 % 0-0 N NRBC%) NEUTROPHIL # (test code = NT#) 2.81 x10 3/uL 2.0-7.6 N IMMATURE GRANULOCYTE # (test 0.01 x10 3/uL 0.00-0.03 N code = IG#) LYMPHOCYTE # (test code = LY#) 1.09 x10 3/uL 1.0-3.8 N MONOCYTE # (test code = MO#) 0.50 x10 3/uL 0.1-0.8 N EOSINOPHIL # (test code = EO#) 0.27 x10 3/uL 0.0-0.2 H BASOPHIL # (test code = BA#) 0.05 x10 3/uL 0.0-0.2 N NUCLEATED RBC # (test code = 0.00 x10 3/uL 0.0-0.1 N NRBC#) MANUAL DIFF REQUIRED (test code NO = MDIFF) - XR ABDOMEN [id number] 15:08:00 [facility] : 1970 Sex: M FAX: Nirav Cohen MD [place]: St: PRE FAX: Kelly Correia MD [phone] Name: ROSY MAGUIRE [facility] : 1970 Age/S: 50/M [address] [facility] Unit #: [id number] [place]: [place], [place]: [place] [address] Acct: [id number] Dis Date: Status: PRE CLI PHONE #: [phone] Exam Date: 11/26/2020 1456 FAX #: [phone] Reason: PERITONEAL DILAYSIS CATHETER DYSFUNCTION EXAMS: CPT CODE: [id number] XR ABDOMEN 2V 92482 Location code: H5 Abdomen Two Views Indication: PERITONEAL DILAYSIS CATHETER DYSFUNCTION Comparison: none. Findings: Flat and upright views. Organ silhouettes are not remarkable. Intestinal gas pattern is normal in appearance. No evidence of free air. No abnormal masses or calcifications. No evidence of free air or significant air-fluid levels. Vascular calcification. Bilateral symmetrical calcifications in the pelvis may lie within the seminal vesicles or prostate. Bone is unremarkable for patient age Right pelvic peritoneal dialysis catheter is morphologically unremarkable. . Impression: 1. Right pelvic peritoneal dialysis catheter. at 1508 Reported and signed by: José Luis Alvarez M.D. PAGE 1 Signed Report (CONTINUED) FAX:Nirav Cohen MD [place]: St: PRE FAX: Beth Correia MD Name: ROSY MAGUIRE [facility] : 1970 Age/S: 50/M [address] [facility] Unit #: [id number] Loc: [place], [place]: [place] [address] Acct: [id number] Dis Date: Status: PRE CLI PHONE #: [phone] Exam Date: 11/26/2020 [facility]6 FAX #: [phone] Reason: PERITONEAL DILAYSIS CATHETER DYSFUNCTION EXAMS: CPT CODE: [id number] XR ABDOMEN 2V 03209 <Continued> CC: Nirav Braun MD; Beth Frankel MD Technologist: SOHAIL BERNARD Trnscrd Date/Time/By: 11/26/2020 (9046) : By: Tracy PAGE 2 Signed Report FAX: Nirav Cohen MD [place]: St: PRE FAX: Beth Correia MD [phone] - Name: ROSY MAGUIRE [facility] : 1970 Age/S: 50/M [address] Unit #: [id number] Loc: [place], [place]: [place] [address] Acct: [id number] Dis Date: Status: PRE CLI PHONE #: [phone] Exam Date: 11/26/2020 1456 FAX #: [phone] Reason: PERITONEAL DILAYSIS CATHETER DYSFUNCTION EXAMS: CPT CODE: [id number] ABDOMEN 2V 82601 <Continued> Orig Print D/T: S: 0 11/26/2020 (1812) PAGE 3 Signed Report- XR ABDOMEN 1 [id number] 14:29:00 [facility] 1970 Sex: M FAX: Nirav Cohen MD [place]: St: REG Name: ROSY MAGUIRE [facility] : 1970 Age/S: 50/M [address] Unit #: [id number] Loc: [place], [place] Phys: EDDOC, GENERIC FOR EDM 94135 Acct: [id number] Dis Date: Status: REG CLI PHONE #: [phone] Exam Date: 11/13/2020 1352 FAX #: [phone] Reason: PD CATH MALFUNCTION EXAMS: CPT CODE: [id number] XR ABDOMEN 1 V 63724 EXAM: ABDOMEN ONE VIEW INDICATION: PDCATH MALFUNCTION LOCATION: B2 COMPARISON: October 21, 2020 TECHNIQUE: AP view of the abdomen. FINDINGS: The bowel gas pattern is normal. No pneumoperitoneum is identified. There is a catheter which is looped in the right lower quadrant with a possible kink. The tip of the catheter was previously in the lower pelvis. The osseous structures are unremarkable. IMPRESSION: Interval migration of the drainage catheter with the tip looped in the right lower quadrant rather than in the pelvis. There is a possible kink. at 4350 Reported and signed by: Donna Mullins M.D. CC: Nirav Braun MD Technologist: ANA BARRETO Trnscrd Date/Time/By: 11/13/2020 (0765) : By: 16 PAGE 1 Signed Report FAX: Nirav Cohen MD [place]: St: REG-- Name: ROSY MAGUIRE [facility] : 1970 Age/S: 50/M [address] Unit #: [id number] Loc: [place], [place] Phys: EDDOC, GENERIC FOR EDM 26878 Acct: [id number] Dis Date: Status: REG CLI PHONE #: [phone] Exam Date: 11/13/2020 1352 FAX #: [phone] Reason: PD CATH MALFUNCTION EXAMS: CPT CODE: [id number] XR ABDOMEN 1 V 22590 <Continued> Orig Print D/T: S: 11/13/2020 (1432) PAGE 2 Signed [id number] 08:30:00 Test Item Value Reference Range Interpretation Comments TROPONIN-I 0.030 ng/mL 0.000-0.045 N Negative: <= (test code = 0.045 Positive: TROPI) >= 0.046 Correl ation with serial results, other cardiac markers andclin ical findings is necessary to determine the clinicalsignifi cance of this result. Results using different metho dologies should not be c omparedto one another as noah titative results may amelia y by method. BASIC METABOLIC [id number] 17:02:00 Test Item Value Reference Range Interpretation Comments SODIUM (test code = NA) 140 mEq/L 134-147 N POTASSIUM (test code = 4.5 mEq/L 3.4-5.0 N K) CHLORIDE (test code = 103 mEq/L 100-108 N CL) CARBON DIOXIDE (test 28 mEq/l 21-33 N code = CO2) ANION GAP (test code = 14 0-20 N GAP) GLUCOSE (test code = 111 mg/dL 70-110 H GLU) BLOOD UREA NITROGEN 29 mg/dL 7-18 H (test code = BUN) GLOMERULAR FILTRATION 7.7 90-95 L Units of measure = RATE (test code = GFR) ml/mi n/1.73 m2 CREATININE (test code = 7.5 mg/dL 0.6-1.3 H CREAT) CALCIUM (test code = 8.5 mg/dL 8.0-10.5 N CA) [id number] 17:02:00 Test Item Value Reference Range Interpretation Comments TROPONIN-I 0.035 ng/mL 0.000-0.045 N Negative: <= (test code = 0.045 Positive: TROPI) >= 0.046 Correl ation with serial results, other cardiac markers andclin ical findings is necessary to determine the clinicalsignifi cance of this result. Results using different metho dologies should not be c omparedto one another as noah titative results may amelia y by method. - XR CHEST 1 [id number] 16:17:00 [facility] 1970 Sex: M FAX: Tray Donald [phone] [place]: St: ADM FAX: Nirav Zamudio am, MD Name: [facility] : 1970 Age/S: 50/M [address] [place] [address] Unit #: [id number] Loc: G.[address] [place] [address] Phys: DOES_NOT KNOW Acct: [id number] Dis Date: Status: ADM IN PHONE #: [phone] Exam Date: 10/26/2020 1616 FAX #: [phone] Reason: PAIN EXAMS: CPT CODE: [id number] XR CHEST 1 V 63392PE CHEST 1 VIEW HISTORY: PAIN. COMPARISON: CXR 10/25/2020.FINDINGS: Expiratory portable exam. The heart and vascular markings are stable. Stable elevation of the left hemidiaphragm with stable left basilar opacity suggestive of atelectasis. Lung murray are otherwise stable. No significant skeletal abnormality. No pleural abnormality. IMPRESSION: Elevated left hemidiaphragm with stable left basilar opacity suggestive of atelectasis. Electronically Signed by Octavio Angelo 10/26/2020 at 1617 Reported and signed by: Jose R Rueda M.D. CC: Tray Linder MD; Nirav Braun Technologist: FUAD Green) Trnscrd Date/Time/By: 10/26/2020 (5554) : By: [email or web address] Orig Print D/T: S: 10/26/2020 (0685) PAGE 1 Signed Report- US ABDOMEN [id number] 14:11:00 [facility] 1970 Sex: M Name: ROSY MAGUIRE [facility] : 1969 Age/S: 50 / M [address] [place] [address] Unit #: [id number] Loc: [place] [address] Phys: Harpal Zamarripa MD Acct: [id number] Dis Date: Status: ADM IN PHONE #: [phone] Exam Date: 10/26/2020 1157 FAX #: [phone] Reason: POSSIBLE PERTITONEAL FLUID INFECTION, RULE OUT. EXAMS: CPT CODE: [id number] ABDOMEN LTD 16326 CLINICAL HISTORY: Possible peritoneal fluid infection,. Do time ultrasound examination of all 4 quadrants of the abdomen and pelvis was performed. There is no evidence of free fluid in the peritoneal cavity on provided images. IMPRESSION: No evidence of freeperitoneal fluid. at 1411 Reported and signed by: Dung Frankel M.D. CC: Harpal Zamarripa MD; Tray Linder MD; Nirav Braun Technologist: Shira Fraire RDMS(AB) Trnscb Date/Time: 10/26/2020 (364) Chuck Orig Print D/T: S: 10/26/2020 (2195) Probe: PAGE 1 Signed ReportPROTHROMBIN [id number] 13:56:00 Test Item Value Reference Range Interpretation Comments PROTHROMBIN TIME 11.8 SECONDS 9.3-12.9 N PATIENT (test code = PTP) INTERNATIONAL NORMAL 1.1 0.8-1.2 N TARGET RATIO (test code = INR BY IN DICATION INR) Indication INR1. Prophyl axis of venous thrombos is 2.0 - 3. 0 (orthopedic justo bernard), Prophylaxis of venous thrombos is (other than hig h-risk surgery), Jessenia tment of Deep Vein Thrombosis/Pulm onary Embolism, Preve ntion of systemic emb olism - Tissue heart va lves, Acute Myocardia l Infarction (to prevent systemic embo lism), Valvular heart disease, Atri al Fibrillation, Bileaflet mecha nical valve in aortic position.2. Mec hanical prosthetic valv es (high risk), 2.5 - 3.5 Presence of Lupus Anticoagu lant or Antiphospholi pid Antibodies, Pre vention of systemic e mbolism - Acute Myocard ial Infarction (t o prevent recurre nt infarct). THROMBOPLASTIN TIME [id number] 13:56:00 Test Item Value Reference Range Interpretation Comments THROMBOPLASTIN TIME PARTIAL (test Seconds 25.0-39.5 code = PTT) PROTHROMBIN [id number] 13:56:00 Test Item Value Reference Range Interpretation Comments PROTHROMBIN TIME 11.8 SECONDS 9.3-12.9 N PATIENT (test code = PTP) INTERNATIONAL NORMAL 1.1 0.8-1.2 N TARGET RATIO (test code = INR BY IN DICATION INR) Indication INR1. Prophyl axis of venous thrombos is 2.0 - 3. 0 (orthopedic justo bernard), Prophylaxis of venous thrombos is (other than hig h-risk surgery), Jessenia tment of Deep Vein Thrombosis/Pulm onary Embolism, Preve ntion of systemic emb olism - Tissue heart va lves, Acute Myocardia l Infarction (to prevent systemic embo lism), Valvular heart disease, Atri al Fibrillation, Bileaflet mecha nical valve in aortic position.2. Mec hanical prosthetic valv es (high risk), 2.5 - 3.5 Presence of Lupus Anticoagu lant or Antiphospholi pid Antibodies, Pre vention of systemic e mbolism - Acute Myocard ial Infarction (t o prevent recurre nt infarct). THROMBOPLASTIN TIME [id number] 13:56:00 Test Item Value Reference Range Interpretation Comments THROMBOPLASTIN TIME 33.8 Seconds 25.0-39.5 N Ther apeutic PARTIAL (test code = Range: 50.4 - 88.3 PTT) Seconds Effective 02/19/2019 BASIC METABOLIC [id number] 08:02:00 Test Item Value Reference Range Interpretation Comments SODIUM (test code = NA) 136 mEq/L 134-147 N POTASSIUM (test code = 5.6 mEq/L 3.4-5.0 H K) CHLORIDE (test code = 102 mEq/L 100-108 N CL) CARBON DIOXIDE (test 23 mEq/l 21-33 N code = CO2) ANION GAP (test code = 17 0-20 N GAP) GLUCOSE (test code = 75 mg/dL 70-110 N GLU) BLOOD UREA NITROGEN 45 mg/dL 7-18 H (test code = BUN) GLOMERULAR FILTRATION 5.5 90-95 L Units of measure = RATE (test code = GFR) ml/mi n/1.73 m2 CREATININE (test code = 10.0 mg/dL 0.6-1.3 H CREAT) CALCIUM (test code = 8.0 mg/dL 8.0-10.5 N CA) - XR CHEST 2 [id number] 17:16:00 [facility] 1970 Sex: M FAX: Tray Donald [phone] [place]: St: ADM FAX: Darling Foster am,Nirav Werner MD FAX: Antonino Huff MD [phone] Name: ROSY MAGUIRE [facility] : 1970 Age/S: 50/M [address] [place] [address] Blvd Unit #: [id number] Loc: G.[address] [place] [address] Phys: Antonino Huff MD Acct: [id number] Dis Date: Status: ADM IN PHONE #: [phone] Exam Date: FAX #: [phone] Reason: ? opacity EXAMS: CPT CODE: [id number] XR CHEST 2 V 82760 Chest, 2 views dated 10/25/2020. HISTORY: ? opacity Comparison is made to a prior study dated 10/24/2020. Theheart is normal in size. Atherosclerotic calcification is identified in the aortic arch. Left diaphragmatic elevation is again identified with stable compressive atelectasis of the left lung base. The lungs otherwise appear clear. The pulmonary vasculature appears normal incaliber. No acute pleural space abnormalities are detected. IMPRESSION: 1. Left diaphragmatic elevation with stable compressive atelectasis of the left lung base. There is no additional radiographic evidence of acute cardiopulmonary disease.SL: 131 at 1716 Reported and signed by: Chuck Leija M.D. CC: Tray Linder MD; Nirav Braun; Antonino Huff MD Technologist: RT Peter(Toney) Trnscrd Date/Time/By: 10/25/2020 (6136) : By: Castro Orig Print D/T: S: 10/25/2020 (9370) PAGE 1 Signed ReportAG HEPATITIS B [id number] 16:37:00 Test Item Value Reference Range Interpretation Comments AG HEPATITIS B SURFACE NON REACTIVE INDEX NonReactive (test code = HBSAG) - XR SHOULDER 2 + V [id number] 13:12:00 [facility] 1970 Sex: M FAX: Tray Donald [phone] [place]: St: ADM FAX: Nirav Zamudio am, MD FAX: Antonino Huff MD [phone] Name: ROSY MAGUIRE [facility] : 1970 Age/S: 50/M [address] [place] [address] Bl Unit #: [id number] Loc: G.[address] [place] [address] Phys: Antonino Huff MD Acct: [id number] Dis Date: Status: ADM IN PHONE #: [phone] Exam Date: FAX #: [phone] Reason: Left shoulder region pain EXAMS: CPT CODE: [id number] XR SHOULDER 2 + VLT 57473 PROCEDURE: Left Shoulder Radiographs. Clinical Indication: Left shoulder pain. Comparison: None. FINDINGS: The 3 views of the left shoulder show normal alignment at the glenohumeral joint.There are no fractures or dislocations. There is minimal degenerative change including marginal osteophyte formation. There is opacity at the left lung base. IMPRESSION: 1. No fractures or dislocation. 2. Minimal degenerative change. 3. Opacity at the left lung base. SL: K58-H at 1312 Reported and signed by: Clayton Vasquez M.D. CC: Tray Linder MD; Nirav Braun; Antonino Huff MD Technologist: Pamela Blake RT(R) Trnscrd Date/Time/By: 10/25/2020 (1311) : By: JeannetteO Orig Print D/T: S: 10/25/2020 (9143) PAGE 1 Signed ReportCOVID 19 Asymptomatic IH [id number] 01:04:00 Test Item Value Reference Range Interpretation Comments COVID 19 Asymptomatic Negative Negative A nega tive result is IH AG (test code = presumpti ve and should COVNONPUIAG) be confirmedwit h an FDA authorized mole cular assay, if neces juliette forpatient hakan gement.A positive result does not rule out co-inf ections withother patho gens.This test detects kelly th viable (live) and non-viable,SARS -CoV, and SARS-CoV-2. Malcolm t performance dep ends on theamount of vi yana (antigen) in th e sample.This malcolm t has not been FDA cleare d or approved; the t est hasbeen authori zed by FDA under an Em ergency Use Authorizati on(EUA) for use by labo ratories certified under the CLIA thatmeet the requirements to perform moderate, high or waivedcomplexit y tests. COMMENTS: If not done this admissionC REACTIVE [id number] 23:38:00 Test Item Value Reference Range Interpretation Comments C REACTIVE PROTEIN (test code = 19.0 mg/L <10.0 H CRP) CBC W/AUTO [id number] 22:45:00 Test Item Value Reference Range Interpretation Comments WHITE BLOOD CELL (test code = 4.8 x10 3/uL 4.5-11.0 N WBC) RED BLOOD CELL (test code = 3.74 x10 6/uL 4.00-5.60 L RBC) HEMOGLOBIN (test code = HGB) 10.7 g/dL 12.5-16.9 L HEMATOCRIT (test code = HCT) 34.4 % 37.5-50.7 L MEAN CELL VOLUME (test code = 92.0 fL 81.0-99.0 MCV) MEAN CELL HGB (test code = MCH) 28.6 pg 27.0-33.0 N MEAN CELL HGB CONCETRATION 31.1 g/dL 33.0-37.0 L (test code = MCHC) RED CELL DISTRIBUTION WIDTH CV 16.2 % 11.5-14.5 H (test code = RDW) RED CELL DISTRIBUTION WIDTH SD 53.1 fL 37.0-54.0 N (test code = RDW-SD) PLATELET COUNT (test code = 169 x10 3/uL 150-400 N PLT) MEAN PLATELET VOLUME (test code 10.3 fL 7.0-9.0 H = MPV) NEUTROPHIL % (test code = NT%) 57.5 % 56.0-77.0 N IMMATURE GRANULOCYTE % (test 0.6 % 0.0-2.0 N code = IG%) LYMPHOCYTE % (test code = LY%) 30.9 % 14.0-32.0 N MONOCYTE % (test code = MO%) 8.9 % 4.8-9.0 N EOSINOPHIL % (test code = EO%) 1.7 % 0.3-3.7 N BASOPHIL % (test code = BA%) 0.4 % 0.0-2.0 N NUCLEATED RBC % (test code = 0.0 % 0-0 N NRBC%) NEUTROPHIL # (test code = NT#) 2.77 x10 3/uL 2.0-7.6 N IMMATURE GRANULOCYTE # (test 0.03 x10 3/uL 0.00-0.03 N code = IG#) LYMPHOCYTE # (test code = LY#) 1.49 x10 3/uL 1.0-3.8 N MONOCYTE # (test code = MO#) 0.43 x10 3/uL 0.1-0.8 N EOSINOPHIL # (test code = EO#) 0.08 x10 3/uL 0.0-0.2 N BASOPHIL # (test code = BA#) 0.02 x10 3/uL 0.0-0.2 N NUCLEATED RBC # (test code = 0.00 x10 3/uL 0.0-0.1 N NRBC#) MANUAL DIFF REQUIRED (test code NO = MDIFF) LACTIC [id number] 22:35:00 Test Item Value Reference Range Interpretation Comments LACTIC ACID (test code = LACT) 0.9 mmol/L 0.4-1.9 N Coronavirus 2019 nCoV [id number] 20:19:00 Test Item Value Reference Range Interpretation Comments Coronavirus 2019 Negative NEGATIVE Negative re sults should be nCoV Bedside (test treated a s presumptive and code = ifinconsistent with [id number]) clinical signs and symptoms, or ne cessaryfor patient managem ent, should be tested with an alternativemole cular assay. Negative result s do not preclude [id number] tion and should not be u sed as the sole basis forp atient management deci sions. Negative result s should beconsidered in the context of a patient's recent exposures,histo ry, presence of clinical sig ns and symptoms consis tentwith COVID-19. BASIC METABOLIC [id number] 18:28:00 Test Item Value Reference Range Interpretation Comments SODIUM (test code = NA) 139 mmol/l 134.0-147.0 N POTASSIUM (test code = K) 4.3 mmol/L 3.6-5.2 N CHLORIDE (test code = CL) 101 mmol/l 98.0-107.0 N CARBON DIOXIDE (test code = CO2) 27.8 mmol/l 21.0-33.0 N ANION GAP (test code = GAP) 14.5 0-20 N GLUCOSE (test code = GLU) 55 mg/dl 70.0-110.0 L BLOOD UREA NITROGEN (test code = 37 mg/dl 7.0-18.0 H BUN) CREATININE (test code = CREAT) 8.46 mg/dL 0.60-1.30 HH GFR NON BLACK (test code = 7 mL/min 90-95 L GFRNONBLACK) GFR BLACK (test code = GFRBLACK) 9 mL/min 109-115 L CALCIUM (test code = CA) 7.9 mg/dl 8.0-10.5 L Specimen comments: Clean CatchHEPATIC FUNCTION PANEL [id number] 18:28:00 Test Item Value Reference Range Interpretation Comments TOTAL PROTEIN (test code = PROT) 6.8 GM/DL 6.0-8.1 N ALBUMIN (test code = ALB) 3.3 gm/dL 3.2-4.7 N BILIRUBIN TOTAL (test code = 0.5 mg/dl 0.0-1.0 N BILT) BILIRUBIN DIRECT (test code = 0.2 mg/dl 0.0-0.3 N BILD) SGOT/AST (test code = AST) 16 Units/L 15-37 N SGPT/ALT (test code = ALT) 6 Units/L 12.0-78.0 L ALKALINE PHOSPHATASE TOTAL (test 108 Units/L 50.0-136.0 N code = ALKP) Specimen comments: Clean [id number] 18:28:00 Test Item Value Reference Range Interpretation Comments LIPASE (test code = LIP) 135 Units/L 65.0-230.0 N Specimen comments: Clean [id number] 18:28:00 Test Item Value Reference Range Interpretation Comments TROPONIN-I (test 0.02 NG/ML 0.00-0.06 N REFERENCE R UDAY TROPONIN code = TROPI) I HEALTHY KEYA VIDUALS: <0.06 ng/mL R/O ISCHEMIA: 0.07 - 0.60 ng/mL CUT-OFF R UDAY FOR AMI: 0.60 - 1. 5 ng/mL Specimen comments: Clean Catch- CT ABD PELVIS W/O [id number] 18:26:00 [facility] : 1970 Sex: M FAX: Nirav Cohen MD [place]: St: REG FAX: Mallory Gan MD [phone] Name: ROSY MAGUIRE [facility] : 1970 Age/S: 50/M [address] [facility] Unit: [id number] Loc: [address] Phys: [place] [id number] Acct: [id number] Dis Date: Status: REG ER PHONE #: [phone] Exam Date: 10/24/2020 1803 FAX #: [phone] Reason : abd pain, recent hernia repair and perit dialys EXAMS: CPT CODE: [id number] CT ABD PELVIS W/O CONT [address]34 CT ABDOMEN AND PELVIS W/O CONTRAST Location code: B2 CLINICAL INDIC ATIONS: Abdominal pain. Recent hernia repair TECHNIQUE: Volumetric acquisition of abdomen from the level of the domes of the diaphragm to the symphysis pubis using 3 mm collimation without the use of intravenous or oral contrast. Axial and coronal images were reviewed. Dose lowering technique with automatic exposure control utilized. COMPARISON: 09/29/2020 FINDINGS: Lung bases demonstrate mild bibasilar atelectasis. Mildly elevated left hemidiaphragm noted. Liver, spleen, pancreas, and bilateral adrenal glands are within normal limits. Kidneys are mildly atrophic bilaterally, without nephrolithiasis or hydronephrosis. Visualized small bowel loops appear within normal limits. Mild retained fecal material throughout the colon. Normal appendix. Aorta tapers normally without aneurysmal dilatation. Aortoiliac atherosclerosis. CT PELVIS: Urinary bladder is within normal limits. Prostate gland within normal limits. Osseous structures demonstrate mild arthritic change. Stable appearance to a mild developing sacral decubitus ulcer with mild induration within the soft tissues present. No destructive changes within the bones identified. IMPRESSION: 1. No acute intra-abdominal findings detected. PAGE 1 Signed Report (CONTINUED) FAX: Nirav Cohen MD [place]: St: REGFAX: Mallory Gan MD [phone] Name: ROSY MAGUIRE [facility] : 1970 Age/S: 50/M [address] [facility] Unit: [id number] Loc : [address] Phys: [place] [id number] Acct: [id number] Dis Date: Status: REG ER PHONE #: [phone] Exam Date: 10/24/2020 180 FAX #: [phone] Reason: abd pain, recent hernia repair and perit dialys EXAMS: CPT CODE: [id number] CT ABD PELVIS W/O CONT 32567 <Continued> 2. Peritoneal dialysis catheter is in good position. Atrophic kidneys. 3. Mildly elevated left hemidiaphragm and bibasilar atelectasis. at 1826 Reported and signed by: Francisco Pack M.D. CC: Nirav Braun MD; Mallory Gan MD Technologist: JANIE MC; GRISELDA CHACON Trnscrd Dt/Tm: 10/24/2020 (1825)t.[email or web address] Orig Print D/T: S: 10/24/2020 (9 PAGE 2 Signed ReportBASIC METABOLIC [id number] 18:19:00 Test Item Value Reference Range Interpretation Comments SODIUM (test code = NA) 139 mmol/l 134.0-147.0 N POTASSIUM (test code = K) 4.3 mmol/L 3.6-5.2 N CHLORIDE (test code = CL) 101 mmol/l 98.0-107.0 N CARBON DIOXIDE (test code = CO2) 27.8 mmol/l 21.0-33.0 N ANION GAP (test code = GAP) 14.5 0-20 N GLUCOSE (test code = GLU) mg/dl 70.0-110.0 BLOOD UREA NITROGEN (test code = mg/dl 7.0-18.0 BUN) CREATININE (test code = CREAT) mg/dL 0.60-1.30 GFR NON BLACK (test code = mL/min 90-95 GFRNONBLACK) GFR BLACK (test code = GFRBLACK) mL/min 109-115 CALCIUM (test code = CA) mg/dl 8.0-10.5 Specimen comments: Clean CatchHEPATIC FUNCTION PANEL [id number] 18:19:00 Test Item Value Reference Range Interpretation Comments TOTAL PROTEIN (test code = PROT) gm/dL 6.4-8.2 ALBUMIN (test code = ALB) gm/dl 3.2-4.7 BILIRUBIN TOTAL (test code = BILT) mg/dl 0.0-1.0 BILIRUBIN DIRECT (test code = BILD) mg/dl 0.0-0.3 SGOT/AST (test code = AST) Units/L 15-37 SGPT/ALT (test code = ALT) Units/L 12.0-78.0 ALKALINE PHOSPHATASE TOTAL (test Units/L 50.0-136.0 code = ALKP) Specimen comments: Clean [id number] 18:19:00 Test Item Value Reference Range Interpretation Comments LIPASE (test code = LIP) Units/L 65.0-230.0 Specimen comments: Clean [id number] 18:19:00 Test Item Value Reference Range Interpretation Comments TROPONIN-I (test code = TROPI) NG/ML 0.00-0.06 Specimen comments: Clean Catch- XR CHEST 1 [id number] 18:14:00 [facility] : 1970 Sex: M FAX: Niarv Cohen MD [place]: St: REG FAX: Mallory Gan MD [phone] Name: ROSY MAGUIRE [facility] : 1970 Age/S: 50/M [address] [facility] [id number] Loc: [address] Phys: [place] [address] Acct: [id number] Dis Date: Status: REG ER PHONE #: [phone] Exam Date: 10/24/2020 181 FAX #: [phone] Reason: Abdominal Pain EXAMS: CPT CODE: [id number] XR CHEST 1 V 32510 Site ID: [id number] HISTORY: Abdominal pain, bleeding at peritoneal dialysis catheter site COMPARISON: 3 days ago FINDINGS: No acute pulmonary infiltrate. Stable elevated left hemidiaphragm and left basilar atelectasis. The heart and pulmonary vasculature is normal. Osseous structures are unremarkable. IMPRESSION: Negative chest X-ray. at 1814 Reported and signed by: Addison Berg M.D. CC: Nirav Braun MD; Mallory Gan MD Technologist: ARELY GONZALEZ Trnscrd Date/Time/By: 10/24/2020 (1813) : By: [email or web address] PAGE 1 Signed Report FAX: Nirav Cohen MD [place]: St: REG FAX: Mallory Gan MD [phone] Name: ROSY MAGUIRE [facility] : 1970 Age/S: 50/M [address] [facility] Unit #: [id number] Loc: [address] Phys: Mallory Gan [place] [address] Acct: [id number] Dis Date: Status: REG ER PHONE #: [phone] Exam Date: 10/24/20201810 FAX #: [phone] Reason: Abdominal Pain EXAMS: CPT CODE: [id number] XR CHEST 1 V 33763 <Continued> Orig Print D/T: S: 10/24/2020 (1816) PAGE 2 Signed ReportPROTHROMBIN [id number] 18:10:00 Test Item Value Reference Range Interpretation Comments PROTHROMBIN TIME 11.4 SECONDS 9.9-12.8 N PATIENT (test code = PTP) INTERNATIONAL NORMAL 1.0 0.89-1.14 N THE INR IS TO BE USED RATIO (test code = ONLY FOR MONITORING INR) ORAL ANTICOAGULANTTH ERAPY. THE FOLLOWING A RE SUGGESTED RANGE S FROM THEFL[facility] COL LEGE OF CHEST PHYSICIANS:KEYA CATION INR VALUEPROPHYLAXI S OF VENOUS THROMBOS IS (ORTHOPEDIC JUSTO BERNARD) 2.0 - 3.0PROP HYLAXIS OF VENOUS THROM BOSIS (OTHER THAN HIG H-RISK SURGERY) 2.0 - 3.0TRE ATMENT OF DEEP VEIN THROMBOSIS OR PULMONARY EMBOL ISM 2.0 - 3.0PREV ENTION OF SYSTEMIC EMB OLISM TISSUE HEART VA LVES 2.0 - 3.0 AC SHISHMAREF IRA MYOCARDIAL INFA RCTION (TO PREVENT SYSTEMIC EMBOLI SM) 2.0 - 3.0 ACUTE MYOCARDIA L INFARCTION (TO PREVENT RECURRE NT INFARCT) 2.5 - 3.0 VALV ULAR HEART DISEASE 2.0 - 3.0 ATRIAL FIBRILATION 2.0 - 3.0BILEAFLET MECHANICAL VALV E IN AORTIC POSITION 2.0 - 3.0MECHAN ICAL PROSTHETIC VALV ES (HIGH RISK) 2.5 - 3.5PRESEN CE OF LUPUS ANTICOAGU LANT OR ANTIPHOSPHOLIP ID ANTIBODIES 2.5 - 3 .5 Specimen comments: Clean CatchIs patient on anticoagulants? NTHROMBOPLASTIN TIME [id number] 18:10:00 Test Item Value Reference Range Interpretation Comments THROMBOPLASTIN TIME 33.30 SECONDS 25.86-36.07 N [facility] PARTIAL (test code = Therape utic Range - PTT) APTT of 55.8-85 .4 secondscorrelat es with plasma heparin concentration o f 0.2-0.4 u/mL Ne w range effective - Specimen comments: Clean CatchIs patient on anticoagulants? NCBC W/AUTO DIFF 2020-10-24 18:01:00 Test Item Value Reference Range Interpretation Comments WHITE BLOOD CELL (test code = 6.2 K/mm3 4.5-11.0 N WBC) RED BLOOD CELL (test code = 4.03 M/mm3 4.40-5.90 L RBC) HEMOGLOBIN (test code = HGB) 11.5 gm/dL 13.0-17.0 L HEMATOCRIT (test code = HCT) 37.2 % 36.0-48.0 N MEAN CELL VOLUME (test code = 92.3 UM3 80.0-94.0 N MCV) MEAN CELL HGB (test code = MCH) 28.5 UUG 25.5-32.5 N MEAN CELL HGB CONCETRATION 30.9 gm/dL 29.0-35.5 N (test code = MCHC) RED CELL DISTRIBUTION WIDTH 15.6 % 11.5-15.0 H (test code = RDW) RED CELL DISTRIBUTION WIDTH SD 52.3 fL 34.8-50.2 H (test code = RDW-SD) PLATELET COUNT (test code = 180 K/mm3 150-400 N PLT) MEAN PLATELET VOLUME (test code 9.3 fl 7.4-10.4 N = MPV) NEUTROPHIL % (test code = NT%) 66.5 % 49.0-76.0 N IMMATURE GRANULOCYTE % (test 0.3 % 0.0-0.4 N code = IG%) LYMPHOCYTE % (test code = LY%) 17.1 % 23.0-38.0 L MONOCYTE % (test code = MO%) 11.9 % 1.0-10.0 H EOSINOPHIL % (test code = EO%) 3.7 % 1.0-5.0 N BASOPHIL % (test code = BA%) 0.5 % 0.0-1.0 N NUCLEATED RBC % (test code = 0.0 % 0.0-0.1 N NRBC%) NEUTROPHIL # (test code = NT#) 4.1 K/mm3 2.4-6.3 N IMMATURE GRANULOCYTE # (test 0.02 x10 3/uL 0.00-0.07 N code = IG#) LYMPHOCYTE # (test code = LY#) 1.1 K/mm3 1.2-4.0 L MONOCYTE # (test code = MO#) 0.7 K/mm3 0.0-0.6 H EOSINOPHIL # (test code = EO#) 0.2 K/MM3 0.0-0.7 N BASOPHIL # (test code = BA#) 0.0 K/mm3 0.0-0.2 N NUCLEATED RBC # (test code = 0.00 X10 3uL 0.00-0.01 N NRBC#) [id number] 06:12:00 Test Item Value Reference Range Interpretation Comments GLUBED (test code = 97 MG/DL 70-110 N Performe d by certified GLUBED) bogger operator at [facility] [id number] 11:04:00 Test Item Value Reference Range Interpretation Comments GLUBED (test code = 122 MG/DL 70-110 H Performe d by certified GLUBED) bogger operator at [facility] CBC W/AUTO [id number] 08:29:00 Test Item Value Reference Range Interpretation Comments WHITE BLOOD CELL (test code = 5.9 x10 3/uL 4.5-11.0 N WBC) RED BLOOD CELL (test code = 3.54 x10 6/uL 4.00-5.60 L RBC) HEMOGLOBIN (test code = HGB) 10.0 g/dL 12.5-16.9 L HEMATOCRIT (test code = HCT) 33.8 % 37.5-50.7 L MEAN CELL VOLUME (test code = 95.5 fL 81.0-99.0 N MCV) MEAN CELL HGB (test code = MCH) 28.2 pg 27.0-33.0 N MEAN CELL HGB CONCETRATION 29.6 g/dL 33.0-37.0 L (test code = MCHC) RED CELL DISTRIBUTION WIDTH CV 15.5 % 11.5-14.5 H (test code = RDW) RED CELL DISTRIBUTION WIDTH SD 53.3 fL 37.0-54.0 N (test code = RDW-SD) PLATELET COUNT (test code = 142 x10 3/uL 150-400 L PLT) MEAN PLATELET VOLUME (test code 10.3 fL 7.0-9.0 H = MPV) NEUTROPHIL % (test code = NT%) 66.5 % 56.0-77.0 N IMMATURE GRANULOCYTE % (test 0.3 % 0.0-2.0 N code = IG%) LYMPHOCYTE % (test code = LY%) 18.4 % 14.0-32.0 N MONOCYTE % (test code = MO%) 12.4 % 4.8-9.0 H EOSINOPHIL % (test code = EO%) 1.9 % 0.3-3.7 N BASOPHIL % (test code = BA%) 0.5 % 0.0-2.0 N NUCLEATED RBC % (test code = 0.0 % 0-0 N NRBC%) NEUTROPHIL # (test code = NT#) 3.90 x10 3/uL 2.0-7.6 N IMMATURE GRANULOCYTE # (test 0.02 x10 3/uL 0.00-0.03 N code = IG#) LYMPHOCYTE # (test code = LY#) 1.08 x10 3/uL 1.0-3.8 N MONOCYTE # (test code = MO#) 0.73 x10 3/uL 0.1-0.8 N EOSINOPHIL # (test code = EO#) 0.11 x10 3/uL 0.0-0.2 N BASOPHIL # (test code = BA#) 0.03 x10 3/uL 0.0-0.2 N NUCLEATED RBC # (test code = 0.00 x10 3/uL 0.0-0.1 N NRBC#) MANUAL DIFF REQUIRED (test code NO = MDIFF) BASIC METABOLIC [id number] 08:17:00 Test Item Value Reference Range Interpretation Comments SODIUM (test code = NA) 138 mEq/L 134-147 N POTASSIUM (test code = 4.4 mEq/L 3.4-5.0 N K) CHLORIDE (test code = 101 mEq/L 100-108 N CL) CARBON DIOXIDE (test 28 mEq/l 21-33 N code = CO2) ANION GAP (test code = 13 0-20 N GAP) GLUCOSE (test code = 90 mg/dL 70-110 N GLU) BLOOD UREA NITROGEN 24 mg/dL 7-18 H (test code = BUN) GLOMERULAR FILTRATION 7.9 90-95 L Units of measure = RATE (test code = GFR) ml/mi n/1.73 m2 CREATININE (test code = 7.3 mg/dL 0.6-1.3 H CREAT) CALCIUM (test code = 8.5 mg/dL 8.0-10.5 N CA) [id number] 08:04:00 Test Item Value Reference Range Interpretation Comments GLUBED (test code = 94 MG/DL 70-110 N Performe d by certified GLUBED) bogger operator at [facility] - XR T-SPINE [id number] 18:08:00 [facility] 1970 Sex: M FAX: Mery Crane MD [phone] [place]: St: ADM FAX: Seymour Dunham [phone] FAX: Nirav Cohen MD FAX: Beth Correia MD [phone] Name: ROSY MAGUIRE [facility] : 1970 Age/S: 50/M [address] [place] [address] Unit #: [id number] Loc: [address] [place] [address] Phys: Seymour Osman PA-C Acct: [id number] Dis Date: Status: ADM IN PHONE#: [phone] Exam Date: 10/21/2020 1741 FAX #: [phone] Reason: point tenderness around T7-T8 after fall-back h EXAMS: CPT CODE: [id number] XR T-SPINE 3V 20539 P rocedure: Thoracic Spine Radiographs. Clinical Indication: Mid thoracic spine pain post fall, back hit toilet. Comparison: Lumbar radiographs 09/07/2017 FINDINGS: The 3 views of the thoracic spine show normal alignment of the thoracic spine. There are no fractures or subluxations. Minimal degenerative change involves the mid and lower thoracic spine including narrowing of the intervertebral disc spaces and marginal osteophyte formation. There has been previous cervical ACDF at C6-7 utilizing an anterior metallic plate and screws. There is fracturing of the mid portions of the superior screws. There is opacity at the left lung base. IMPRESSION: 1. Multilevel degenerative change. 2. Previous cervical ACDF with fractured screws. 3. Opacity at the left lung base. SL: OCO-H at 1808 Reported and signed by: Clayton Vasquez M.D. CC: Mery Crane MD; Seymour Osman; Nirav Braun; Beth Frankel MD Technologist: Oly Madden, RT(R); Jacqueline Espitia RT(R) Trnscrd Date/Time/By: 10/21/2020 (1807) : By: Ryne Orig Print D/T: S: 10/21/2020 (1810) PAGE 1 Signed [id number] 18:03:00 Test Item Value Reference Range Interpretation Comments GLUBED (test code = 126 MG/DL 70-110 H Performe d by certified GLUBED) bogger operator at [facility] - XR ABDOMEN 1V (KUB)2020-10-21 17:46:00 [facility] 1970 Sex: M FAX: Estiven Call MD [phone] [place]: St: ADM FAX: Mery Toledo MD [phone] FAX: Nirav Cohen MD FAX: Beth Correia MD [phone] Name: ROSY MAGUIRE [facility] : 1970 Age/S: 50/M [address] [place] [address] Unit #: [id number] Loc: G.[address] [address] Phys: Estiven Call MD Acct: [id number] Dis Date: Status: ADM IN PHONE#: [phone] Exam Date: 10/21/2020 174 FAX #: [phone] Reason: n/v, abdominal pain EXAMS: CPT CODE: [id number] XR ABDOMEN 1V (KUB) 07768 Procedure: Abdominal Radiograph. Clinical Indication: Nausea and vomiting, abdominal pain, malfunction of peritoneal dialysis catheter. Comparison: Abdominal eebztvrdsf92/2/2017. FINDINGS: A supine radiograph of the abdomen in 2 views demonstrates a nonspecific bowel gas pattern without definitive bowel obstruction or free intraperitoneal air. There is a peritoneal dialysis catheter coiled in the central pelvis. There are calcifications in the deep central pelvis likely representing calcification of the vas deferens, suggesting diabetes. There are additional vascular calcifications. IMPRESSION:1. Nonspecific bowel gas pattern without definitive bowel obstruction. 2. Peritoneal dialysis catheter coiled in the pelvis. SL: OCO-H at 174 Reported and signed by: Clayton Vasquez M.D. CC: Estiven Call MD; Mery Crane MD; Nirav Braun; Beth Frankel MD Technologist: Oly Madden, RT(R); Jacqueline Espitia, RT(R) Trnwyrd Date/Time/By: 10/21/2020 (1745) : By: Ryne Orig Print D/T: S: 10/21/2020 (3339) PAGE 1 Signed [id number] 17:21:00 Test Item Value Reference Range Interpretation Comments GLUBED (test code = 101 MG/DL 70-110 N Performe d by certified GLUBED) bogger operator at [facility] - XR CHEST 1 [id number] 17:06:00 [facility] : 1970 Sex: M FAX: Estiven Call MD [phone] [place]: St: FAX: Mery Toledo MD [phone] FAX: Nirav Cohen MD FAX: Beth Correia MD [phone] Name: ROSY MAGUIRE : 1970 Age/S: 50/M [address] [place] [address] Blvd Unit #: [id number] Loc: [address] [place] [address] Phys: Estiven Call MD Acct: [id number] Dis Date: Status: ADM IN PHONE#: [phone] Exam Date: 10/21/2020 1659 FAX #: [phone] Reason: recent fall left sided rib hurting EXAMS: CPT CODE: [id number] XR CHEST 1 V 31227 Chest, single view dated 10/21/2020. HISTORY: Left chest wall pain status post recent fall. Comparison is made to a prior study dated 10/16/2020. The heart is normal in size. The cardiomediastinal shadow is stable. Atelectasis or infiltrate is identified in both lung bases. The upper lung murray appear clear. The pulmonary vasculature is normalin caliber. No acute pleural space abnormalities are identified. Left diaphragmatic elevation is again noted. No gross abnormalities of the bony thorax are detected. IMPRESSION: 1. Bilateral basilar atelectasis or pneumonia, new since 10/16/2020. 2. Left diaphragmatic elevation. SL: 131 at 1706 Reported and signed by: Chuck Harris M.D. CC: Estiven Call MD; Mery Crane MD; Nirav Braun; Beth Frankel MD Technologist: RT Yolande(Toney) Trnscrd Date/Time/By: 10/21/2020 (1708) : By: Castro Orig Print D/T: S: 10/21/2020 (5432) PAGE 1 Signed [id number] 12:18:00 Test Item Value Reference Range Interpretation Comments GLUBED (test code = 85 MG/DL 70-110 N Performe d by certified GLUBED) bogger operator at [facility] ACUTE HEPATITIS [id number] 09:59:00 Test Item Value Reference Range Interpretation Comments AB HEPATITIS A NON REACTIVE NON REACT. IGM (test code = INDEX HAVMAB) AG HEPATITIS B NON REACTIVE NonReactive SURFACE (test INDEX code = HBSAG) AB HEPATITIS B NON REACTIVE NON REACT. CORE IGM (test INDEX code = HBCMAB) AB HEPATITIS C REACTIVE INDEX NON REACT. A A reactive antibody (test code = test is not haris gnostic HCVAB) of activehepati tis C infection. A confirmatory te st such as a NucleicAci d Test for HCV RNA malcolm t is recommended if clinicallyindic ated. BASIC METABOLIC [id number] 08:02:00 Test Item Value Reference Range Interpretation Comments SODIUM (test code = NA) 138 mEq/L 134-147 N POTASSIUM (test code = 5.1 mEq/L 3.4-5.0 H K) CHLORIDE (test code = 101 mEq/L 100-108 N CL) CARBON DIOXIDE (test 24 mEq/l 21-33 N code = CO2) ANION GAP (test code = 18 0-20 N GAP) GLUCOSE (test code = 76 mg/dL 70-110 GLU) BLOOD UREA NITROGEN 34 mg/dL 7-18 H (test code = BUN) GLOMERULAR FILTRATION 6.7 90-95 L Units of measure = RATE (test code = GFR) ml/mi n/1.73 m2 CREATININE (test code = 8.4 mg/dL 0.6-1.3 H CREAT) CALCIUM (test code = 8.2 mg/dL 8.0-10.5 N CA) [id number] 08:02:00 Test Item Value Reference Range Interpretation Comments PHOSPHOROUS (test code = PHOS) 8.0 MG/DL 2.5-4.9 H [id number] 08:02:00 Test Item Value Reference Range Interpretation Comments MAGNESIUM (test code = MAG) 2.26 mg/dL 1.80-2.40 N CBC W/AUTO [id number] 06:59:00 Test Item Value Reference Range Interpretation Comments WHITE BLOOD CELL (test code = 8.1 x10 3/uL 4.5-11.0 N WBC) RED BLOOD CELL (test code = 3.58 x10 6/uL 4.00-5.60 L RBC) HEMOGLOBIN (test code = HGB) 10.1 g/dL 12.5-16.9 L HEMATOCRIT (test code = HCT) 34.0 % 37.5-50.7 L MEAN CELL VOLUME (test code = 95.0 fL 81.0-99.0 N MCV) MEAN CELL HGB (test code = MCH) 28.2 pg 27.0-33.0 N MEAN CELL HGB CONCETRATION 29.7 g/dL 33.0-37.0 L (test code = MCHC) RED CELL DISTRIBUTION WIDTH CV 15.6 % 11.5-14.5 H (test code = RDW) RED CELL DISTRIBUTION WIDTH SD 54.5 fL 37.0-54.0 H (test code = RDW-SD) PLATELET COUNT (test code = 140 x10 3/uL 150-400 L PLT) MEAN PLATELET VOLUME (test code 10.8 fL 7.0-9.0 H = MPV) NEUTROPHIL % (test code = NT%) 72.5 % 56.0-77.0 N IMMATURE GRANULOCYTE % (test 0.5 % 0.0-2.0 N code = IG%) LYMPHOCYTE % (test code = LY%) 14.0 % 14.0-32.0 N MONOCYTE % (test code = MO%) 12.2 % 4.8-9.0 H EOSINOPHIL % (test code = EO%) 0.4 % 0.3-3.7 N BASOPHIL % (test code = BA%) 0.4 % 0.0-2.0 N NUCLEATED RBC % (test code = 0.0 % 0-0 N NRBC%) NEUTROPHIL # (test code = NT#) 5.88 x10 3/uL 2.0-7.6 N IMMATURE GRANULOCYTE # (test 0.04 x10 3/uL 0.00-0.03 H code = IG#) LYMPHOCYTE # (test code = LY#) 1.13 x10 3/uL 1.0-3.8 N MONOCYTE # (test code = MO#) 0.99 x10 3/uL 0.1-0.8 H EOSINOPHIL # (test code = EO#) 0.03 x10 3/uL 0.0-0.2 N BASOPHIL # (test code = BA#) 0.03 x10 3/uL 0.0-0.2 N NUCLEATED RBC # (test code = 0.00 x10 3/uL 0.0-0.1 N NRBC#) MANUAL DIFF REQUIRED (test code NO = MDIFF) [id number] 21:48:00 Test Item Value Reference Range Interpretation Comments GLUBED (test code = 140 MG/DL 70-110 H Performe d by certified GLUBED) bogger operator at [facility] TSH REFLEX TO [id number] 17:15:00 Test Item Value Reference Range Interpretation Comments TSH REFLEX TO FT4 (test code = 1.59 IU/mL 0.42-5.47 N TSHREFLEX) HGBA1C%2020-10-20 17:06:00 Test Item Value Reference Range Interpretation Comments HGBA1C% (test code = HGBA1C%) 5.2 %A1C 4.8-6.0 N [id number] 16:37:00 Test Item Value Reference Range Interpretation Comments GLUBED (test code = 144 MG/DL 70-110 H Performe d by certified GLUBED) bogger operator at [facility] [id number] 11:31:00 Test Item Value Reference Range Interpretation Comments GLUBED (test code = 128 MG/DL 70-110 H Performe d by certified GLUBED) bogger operator at [facility] CBC W/AUTO [id number] 08:46:00 Test Item Value Reference Range Interpretation Comments WHITE BLOOD CELL (test code = 8.1 x10 3/uL 4.5-11.0 WBC) RED BLOOD CELL (test code = 3.59 x10 6/uL 4.00-5.60 L RBC) HEMOGLOBIN (test code = HGB) 10.2 g/dL 12.5-16.9 L HEMATOCRIT (test code = HCT) 33.1 % 37.5-50.7 L MEAN CELL VOLUME (test code = 92.2 fL 81.0-99.0 N MCV) MEAN CELL HGB (test code = MCH) 28.4 pg 27.0-33.0 N MEAN CELL HGB CONCETRATION 30.8 g/dL 33.0-37.0 L (test code = MCHC) RED CELL DISTRIBUTION WIDTH CV 15.6 % 11.5-14.5 H (test code = RDW) RED CELL DISTRIBUTION WIDTH SD 51.9 fL 37.0-54.0 N (test code = RDW-SD) PLATELET COUNT (test code = 115 x10 3/uL 150-400 L PLT) MEAN PLATELET VOLUME (test code 10.6 fL 7.0-9.0 H = MPV) NEUTROPHIL % (test code = NT%) 84.0 % 56.0-77.0 H IMMATURE GRANULOCYTE % (test 0.5 % 0.0-2.0 N code = IG%) LYMPHOCYTE % (test code = LY%) 7.2 % 14.0-32.0 L MONOCYTE % (test code = MO%) 7.0 % 4.8-9.0 N EOSINOPHIL % (test code = EO%) 0.7 % 0.3-3.7 N BASOPHIL % (test code = BA%) 0.6 % 0.0-2.0 N NUCLEATED RBC % (test code = 0.0 % 0-0 N NRBC%) NEUTROPHIL # (test code = NT#) 6.76 x10 3/uL 2.0-7.6 N IMMATURE GRANULOCYTE # (test 0.04 x10 3/uL 0.00-0.03 H code = IG#) LYMPHOCYTE # (test code = LY#) 0.58 x10 3/uL 1.0-3.8 L MONOCYTE # (test code = MO#) 0.56 x10 3/uL 0.1-0.8 N EOSINOPHIL # (test code = EO#) 0.06 x10 3/uL 0.0-0.2 N BASOPHIL # (test code = BA#) 0.05 x10 3/uL 0.0-0.2 N NUCLEATED RBC # (test code = 0.00 x10 3/uL 0.0-0.1 N NRBC#) MANUAL DIFF REQUIRED (test code NO = MDIFF) BASIC METABOLIC [id number] 08:07:00 Test Item Value Reference Range Interpretation Comments SODIUM (test code = NA) 140 mEq/L 134-147 N POTASSIUM (test code = 4.8 mEq/L 3.4-5.0 N K) CHLORIDE (test code = 103 mEq/L 100-108 N CL) CARBON DIOXIDE (test 27 mEq/l 21-33 N code = CO2) ANION GAP (test code = 15 0-20 N GAP) GLUCOSE (test code = 118 mg/dL 70-110 H GLU) BLOOD UREA NITROGEN 32 mg/dL 7-18 H (test code = BUN) GLOMERULAR FILTRATION 8.7 90-95 L Units of measure = RATE (test code = GFR) ml/mi n/1.73 m2 CREATININE (test code = 6.7 mg/dL 0.6-1.3 H CREAT) CALCIUM (test code = 8.7 mg/dL 8.0-10.5 N CA) [id number] 07:46:00 Test Item Value Reference Range Interpretation Comments GLUBED (test code = 114 MG/DL 70-110 H Performe d by certified GLUBED) bogger operator at [facility] Novel Coronavirus 2019 [id number] 21:59:00 Test Item Value Reference Range Interpretation Comments Novel Coronavirus Negative Negative Positive r esults are 2019 Inhouse (test indicativ e of the presence code = COVNONPUI) ofSARS-CoV -2 RNA, clinical correlation wit h patient historyand othe r diagnostic info rmation is necessary to determinepatien t infection status. Positiv e results do not rule out bacterial infection or co -infection with other viru ses. Negative result s do not preclude SARS-C oV-2 infection andsh ould not be used as the amanda e basis for patient managementdecis ions. Negative result s must be combined with otherclinical observations, p atient history, and epidemiological information . Detection of SARS-CoV-2 RNA may be affe cted bysample collec tion methods, storag e conditions, and /or stageof infection. Miranda l RNA mutations, vacc inations, antiviraltherap eutics, antibiotics, chemotherapeuti c orimmunosuppres german drugs have not been e valuated for effectson d etection. Results are for the identification of SARS-CoV-2 RNA usingthe ecoVent M2000 Sy stem under the FDA Emergen cy UseAuthorizatio n. The testing is perf ormed by personneltramelia d in the procedures for the Tadeo M2000 molecular diagnostic SARS-CoV-2 assa y in vitro. COMMENTS: N- XR CHEST 2 [id number] 10:50:00 [facility] 1970 Sex: M FAX: Nirav Cohen MD [place]: St: PRE FAX: Beth Correia MD [phone] FAX: Tamika Hadley Name: ROSY MAGUIRE [facility] : 1970 Age/S: 50/M [address] [place] [address] Unit #: [id number] Loc: [place] [address] Phys: Tamika Hadley NP Acct: [id number] Dis Date: Status: PRE [facility] [place] [facility] [place]ONE #: [phone] Exam Date: FAX #: [phone] Reason: PRE- OP HERNIA REPAIR EXAMS: CPT CODE: [id number] XR CHEST 2 V [id number] EXAM: CHEST TWO VIEW HISTORY: 50-year-old male for preoperative evaluation, hernia repair COMPARISON: Chest radiograph 09/07/2017 FINDINGS: Elevated left hemidiaphragm. The lungs are clear. The cardiomediastinal silhouette is normal for projection. Aortic locations. No acute osseous abnormality.Cervical spinal hardware partially visualized. IMPRESSION: 1. No acute cardiopulmonary abnormality. SL: [id number] at 1050 Reported and signed by: Lucia Montano M.D. CC: Nirav Braun; Beth Frankel MD; Tamika Hadley NP Technologist: Nichole Maldonado RT(R) Trnscrd Date/Time/By: 10/16/2020 (1933) : By: [email or web address] Orig Print D/T: S: 10/16/2020 (3587) PAGE 1 Signed ReportCBC W/AUTO [id number] 10:39:00 Test Item Value Reference Range Interpretation Comments WHITE BLOOD CELL (test code = 5.5 x10 3/uL 4.5-11.0 N WBC) RED BLOOD CELL (test code = 4.00 x10 6/uL 4.00-5.60 N RBC) HEMOGLOBIN (test code = HGB) 11.4 g/dL 12.5-16.9 L HEMATOCRIT (test code = HCT) 37.7 % 37.5-50.7 N MEAN CELL VOLUME (test code = 94.3 fL 81.0-99.0 N MCV) MEAN CELL HGB (test code = MCH) 28.5 pg 27.0-33.0 N MEAN CELL HGB CONCETRATION 30.2 g/dL 33.0-37.0 L (test code = MCHC) RED CELL DISTRIBUTION WIDTH CV 15.5 % 11.5-14.5 H (test code = RDW) RED CELL DISTRIBUTION WIDTH SD 53.8 fL 37.0-54.0 N (test code = RDW-SD) PLATELET COUNT (test code = 100 x10 3/uL 150-400 L PLT) IMMATURE PLATELET FRACTION 2.7 % 0.9-11.2 N (test code = IPF) MEAN PLATELET VOLUME (test code 10.8 fL 7.0-9.0 H = MPV) NEUTROPHIL % (test code = NT%) 70.6 % 56.0-77.0 N IMMATURE GRANULOCYTE % (test 0.4 % 0.0-2.0 N code = IG%) LYMPHOCYTE % (test code = LY%) 16.0 % 14.0-32.0 N MONOCYTE % (test code = MO%) 8.7 % 4.8-9.0 N EOSINOPHIL % (test code = EO%) 3.8 % 0.3-3.7 H BASOPHIL % (test code = BA%) 0.5 % 0.0-2.0 N NUCLEATED RBC % (test code = 0.0 % 0-0 N NRBC%) NEUTROPHIL # (test code = NT#) 3.88 x10 3/uL 2.0-7.6 N IMMATURE GRANULOCYTE # (test 0.02 x10 3/uL 0.00-0.03 N code = IG#) LYMPHOCYTE # (test code = LY#) 0.88 x10 3/uL 1.0-3.8 L MONOCYTE # (test code = MO#) 0.48 x10 3/uL 0.1-0.8 N EOSINOPHIL # (test code = EO#) 0.21 x10 3/uL 0.0-0.2 H BASOPHIL # (test code = BA#) 0.03 x10 3/uL 0.0-0.2 N NUCLEATED RBC # (test code = 0.00 x10 3/uL 0.0-0.1 N NRBC#) MANUAL DIFF REQUIRED (test code NO = MDIFF) PLT [id number] 10:39:00 Test Item Value Reference Range Interpretation Comments PLATELET ESTIMATE (test code 100-125 THOUSAND ADEQUATE = PLTEST) PLATELET MORPHOLOGY (test LARGE PLATELETS code = PLTMORPH) BASIC METABOLIC [id number] 10:19:00 Test Item Value Reference Range Interpretation Comments SODIUM (test code = NA) 142 mEq/L 134-147 N POTASSIUM (test code = 5.4 mEq/L 3.4-5.0 H K) CHLORIDE (test code = 105 mEq/L 100-108 N CL) CARBON DIOXIDE (test 27 mEq/l 21-33 N code = CO2) ANION GAP (test code = 15 0-20 N GAP) GLUCOSE (test code = 85 mg/dL 70-110 N GLU) BLOOD UREA NITROGEN 38 mg/dL 7-18 H (test code = BUN) GLOMERULAR FILTRATION 6.7 90-95 L Units of measure = RATE (test code = GFR) ml/mi n/1.73 m2 CREATININE (test code = 8.4 mg/dL 0.6-1.3 H CREAT) CALCIUM (test code = 8.4 mg/dL 8.0-10.5 N CA) CBC W/AUTO [id number] 09:57:00 Test Item Value Reference Range Interpretation Comments WHITE BLOOD CELL (test code = 5.5 x10 3/uL 4.5-11.0 N WBC) RED BLOOD CELL (test code = 4.00 x10 6/uL 4.00-5.60 N RBC) HEMOGLOBIN (test code = HGB) 11.4 g/dL 12.5-16.9 L HEMATOCRIT (test code = HCT) 37.7 % 37.5-50.7 N MEAN CELL VOLUME (test code = 94.3 fL 81.0-99.0 N MCV) MEAN CELL HGB (test code = MCH) 28.5 pg 27.0-33.0 N MEAN CELL HGB CONCETRATION 30.2 g/dL 33.0-37.0 L (test code = MCHC) RED CELL DISTRIBUTION WIDTH CV 15.5 % 11.5-14.5 H (test code = RDW) RED CELL DISTRIBUTION WIDTH SD 53.8 fL 37.0-54.0 N (test code = RDW-SD) PLATELET COUNT (test code = 100 x10 3/uL 150-400 L PLT) IMMATURE PLATELET FRACTION 2.7 % 0.9-11.2 N (test code = IPF) MEAN PLATELET VOLUME (test code 10.8 fL 7.0-9.0 H = MPV) NEUTROPHIL % (test code = NT%) 70.6 % 56.0-77.0 N IMMATURE GRANULOCYTE % (test 0.4 % 0.0-2.0 N code = IG%) LYMPHOCYTE % (test code = LY%) 16.0 % 14.0-32.0 N MONOCYTE % (test code = MO%) 8.7 % 4.8-9.0 N EOSINOPHIL % (test code = EO%) 3.8 % 0.3-3.7 H BASOPHIL % (test code = BA%) 0.5 % 0.0-2.0 N NUCLEATED RBC % (test code = 0.0 % 0-0 N NRBC%) NEUTROPHIL # (test code = NT#) 3.88 x10 3/uL 2.0-7.6 N IMMATURE GRANULOCYTE # (test 0.02 x10 3/uL 0.00-0.03 N code = IG#) LYMPHOCYTE # (test code = LY#) 0.88 x10 3/uL 1.0-3.8 L MONOCYTE # (test code = MO#) 0.48 x10 3/uL 0.1-0.8 N EOSINOPHIL # (test code = EO#) 0.21 x10 3/uL 0.0-0.2 H BASOPHIL # (test code = BA#) 0.03 x10 3/uL 0.0-0.2 N NUCLEATED RBC # (test code = 0.00 x10 3/uL 0.0-0.1 N NRBC#) MANUAL DIFF REQUIRED (test code NO = MDIFF) PLT [id number] 09:57:00 Test Item Value Reference Range Interpretation Comments PLATELET ESTIMATE (test code = THOUSAND ADEQUATE PLTEST) CBC W/AUTO [id number] 09:56:00 Test Item Value Reference Range Interpretation Comments WHITE BLOOD CELL (test code = 5.5 x10 3/uL 4.5-11.0 N WBC) RED BLOOD CELL (test code = 4.00 x10 6/uL 4.00-5.60 N RBC) HEMOGLOBIN (test code = HGB) 11.4 g/dL 12.5-16.9 L HEMATOCRIT (test code = HCT) 37.7 % 37.5-50.7 N MEAN CELL VOLUME (test code = 94.3 fL 81.0-99.0 N MCV) MEAN CELL HGB (test code = MCH) 28.5 pg 27.0-33.0 N MEAN CELL HGB CONCETRATION 30.2 g/dL 33.0-37.0 L (test code = MCHC) RED CELL DISTRIBUTION WIDTH CV 15.5 % 11.5-14.5 H (test code = RDW) RED CELL DISTRIBUTION WIDTH SD 53.8 fL 37.0-54.0 N (test code = RDW-SD) PLATELET COUNT (test code = 100 x10 3/uL 150-400 L PLT) IMMATURE PLATELET FRACTION 2.7 % 0.9-11.2 N (test code = IPF) MEAN PLATELET VOLUME (test code 10.8 fL 7.0-9.0 H = MPV) NEUTROPHIL % (test code = NT%) 70.6 % 56.0-77.0 N IMMATURE GRANULOCYTE % (test 0.4 % 0.0-2.0 N code = IG%) LYMPHOCYTE % (test code = LY%) 16.0 % 14.0-32.0 N MONOCYTE % (test code = MO%) 8.7 % 4.8-9.0 N EOSINOPHIL % (test code = EO%) 3.8 % 0.3-3.7 H BASOPHIL % (test code = BA%) 0.5 % 0.0-2.0 N NUCLEATED RBC % (test code = 0.0 % 0-0 N NRBC%) NEUTROPHIL # (test code = NT#) 3.88 x10 3/uL 2.0-7.6 N IMMATURE GRANULOCYTE # (test 0.02 x10 3/uL 0.00-0.03 N code = IG#) LYMPHOCYTE # (test code = LY#) 0.88 x10 3/uL 1.0-3.8 L MONOCYTE # (test code = MO#) 0.48 x10 3/uL 0.1-0.8 N EOSINOPHIL # (test code = EO#) 0.21 x10 3/uL 0.0-0.2 H BASOPHIL # (test code = BA#) 0.03 x10 3/uL 0.0-0.2 N NUCLEATED RBC # (test code = 0.00 x10 3/uL 0.0-0.1 N NRBC#) MANUAL DIFF REQUIRED (test code NO = MDIFF) PLT [id number] 09:56:00 Test Item Value Reference Range Interpretation Comments PLATELET ESTIMATE (test code = THOUSAND ADEQUATE PLTEST) CBC W/AUTO [id number] 09:49:00 Test Item Value Reference Range Interpretation Comments WHITE BLOOD CELL (test code = WBC) x10 3/uL 4.5-11.0 RED BLOOD CELL (test code = RBC) x10 6/uL 4.00-5.60 HEMOGLOBIN (test code = HGB) g/dL 12.5-16.9 HEMATOCRIT (test code = HCT) 37.7 % 37.5-50.7 N MEAN CELL VOLUME (test code = MCV) fL 81.0-99.0 MEAN CELL HGB (test code = MCH) pg 27.0-33.0 MEAN CELL HGB CONCETRATION (test g/dL 33.0-37.0 code = MCHC) RED CELL DISTRIBUTION WIDTH CV % 11.5-14.5 (test code = RDW) PLATELET COUNT (test code = PLT) x10 3/uL 150-400 NEUTROPHIL % (test code = NT%) % 56.0-77.0 LYMPHOCYTE % (test code = LY%) % 14.0-32.0 NEUTROPHIL # (test code = NT#) x10 3/uL 2.0-7.6 LYMPHOCYTE # (test code = LY#) x10 3/uL 1.0-3.8 MANUAL DIFF REQUIRED (test code = MDIFF) BASIC METABOLIC [id number] 12:52:00 Test Item Value Reference Range Interpretation Comments SODIUM (test code = 138 mmol/l 134.0-147.0 N NA) POTASSIUM (test code = 5.4 mmol/L 3.6-5.2 H IS SA MPLE HEMOLYSED? K) NO CHLORIDE (test code = 100 mmol/l 98.0-107.0 N CL) CARBON DIOXIDE (test 29.5 mmol/l 21.0-33.0 N code = CO2) ANION GAP (test code = 13.9 0-20 N GAP) GLUCOSE (test code = 94 mg/dl 70.0-110.0 N GLU) BLOOD UREA NITROGEN 39 mg/dl 7.0-18.0 H (test code = BUN) CREATININE (test code 7.83 mg/dL 0.60-1.30 HH = CREAT) GFR NON BLACK (test 8 mL/min 90-95 L code = GFRNONBLACK) GFR BLACK (test code = 9 mL/min 109-115 L GFRBLACK) CALCIUM (test code = 8.3 mg/dl 8.0-10.5 N CA) CBC W/AUTO [id number] 12:42:00 Test Item Value Reference Range Interpretation Comments WHITE BLOOD CELL (test code = 8.0 K/mm3 4.5-11.0 N WBC) RED BLOOD CELL (test code = 4.06 M/mm3 4.40-5.90 L RBC) HEMOGLOBIN (test code = HGB) 11.8 gm/dL 13.0-17.0 L HEMATOCRIT (test code = HCT) 37.8 % 36.0-48.0 N MEAN CELL VOLUME (test code = 93.1 UM3 80.0-94.0 N MCV) MEAN CELL HGB (test code = MCH) 29.1 UUG 25.5-32.5 N MEAN CELL HGB CONCETRATION 31.2 gm/dL 29.0-35.5 N (test code = MCHC) RED CELL DISTRIBUTION WIDTH 14.8 % 11.5-15.0 N (test code = RDW) RED CELL DISTRIBUTION WIDTH SD 50.5 fL 34.8-50.2 H (test code = RDW-SD) PLATELET COUNT (test code = 147 K/mm3 150-400 L PLT) MEAN PLATELET VOLUME (test code 9.9 fl 7.4-10.4 N = MPV) NEUTROPHIL % (test code = NT%) 72.5 % 49.0-76.0 N IMMATURE GRANULOCYTE % (test 0.4 % 0.0-0.4 N code = IG%) LYMPHOCYTE % (test code = LY%) 17.1 % 23.0-38.0 L MONOCYTE % (test code = MO%) 7.7 % 1.0-10.0 N EOSINOPHIL % (test code = EO%) 1.6 % 1.0-5.0 N BASOPHIL % (test code = BA%) 0.7 % 0.0-1.0 N NUCLEATED RBC % (test code = 0.0 % 0.0-0.1 N NRBC%) NEUTROPHIL # (test code = NT#) 5.8 K/mm3 2.4-6.3 N IMMATURE GRANULOCYTE # (test 0.03 x10 3/uL 0.00-0.07 N code = IG#) LYMPHOCYTE # (test code = LY#) 1.4 K/mm3 1.2-4.0 N MONOCYTE # (test code = MO#) 0.6 K/mm3 0.0-0.6 N EOSINOPHIL # (test code = EO#) 0.1 K/MM3 0.0-0.7 N BASOPHIL # (test code = BA#) 0.1 K/mm3 0.0-0.2 N NUCLEATED RBC # (test code = 0.00 X10 3uL 0.00-0.01 N NRBC#) - CT ABD PELVIS W/O [id number] 08:55:00 [facility] : 1970 Sex: M FAX: Nirav Cohen MD [place]: St: [facility] FAX: Jeremy Correia MD [phone] Name: ROSY MAGUIRE [facility] : 1970 Age/S: 50/M [address] [facility] Unit: [id number] Loc: [place], [place]: [place] [id number] Acct: [id number] Dis Date: Status: REG CLI PHONE #: [phone] Exam Date: 09/29/2020 0834 FAX #: [phone] Reason : RIGHT GROIN PAIN EXAMS: CPT CODE: [id number] CT ABD PELVIS W/O CONT 85229 HI STORY: Right inguinal pain, right lower quadrant pain. CT abdomen and pelvis, unenhanced. Reformatted sagittal and coronal images. COMPARISON: September 07, 2017 Automated exposure control, iterative reconstruction technique, and/or adjustment of mAand/or kV according to patient's size was utilized for optimum radiation dose reduction. No intravenous contrast is requested for the exam. Significant pathology may be obscured. Water-soluble oral contrast was given. The study includes some of the lung bases,which appear to be clear. No pericardial or pleural fluid can be found. Elevated left diaphragm. Homogeneous density seen for the liver and spleen. Prominent vascular calcifications have developed in the splenic artery. The right kidney is surgically absent. Left kidneywith chronic stranding or renal disease but no stones or hydronephrosis. Normal aortic diameter. Gallbladder with normal position. Bowel loops are free of obstruction.Normal stool content. Appendix is normal with its tip lying at the liver tip area. The study of the pelvis shows the bladder intact. Prominent calcifications at the seminal vesicle vas deferens region. Small vessel calcifications prominent. A oval soft tissue density area seen within the distal inguinal canal maximum size 2.9 cm that may represent a fluid collection. This seems small for the testicle. A decubitus ulcer seen at the sacrum in the midline. Superficial soft tissue thickening seen with air bubbles and a tract extending to the posterior margin of the sacrum. The bony margins of the cortex appear aliya intact. Spinal alignment well maintained. Mild haziness in the fat diffusely may support mild anasarca. PAGE 1 Signed Report (CONTINUED) FAX: Nirav Cohen MD [place]: St: REG FAX: Beth Correia MD [phone] Name: ROSY MAGUIRE [facility] : 1970 Age/S: 50/M [address] [facility] Unit: [id number] [place]: [place] [id number] Acct: [id number] Dis Date: Status: REG CLI PHONE #: [phone] Exam Date: 09/29/2020 0834 FAX #: [phone] Re ason: RIGHT GROIN PAIN EXAMS: CPT CODE: [id number] CT ABD PELVIS W/O CONT 42397 <Continued> IMPRESSION: Limited Study. Normal appendix seen with normal bowel loop pattern. Small right inguinal hernia a tiny amount of fluid in the right inguinalcanal , of unclear significance. No focal inflammatory changes are present nor bowel loops trapped. Sacral decubitus with cortical margins of the affected sacrum and coccyx appearing to be intact. Anasarca. Right nephrectomy.. Location: U19 at 0855 Reported and signed by: Iliana Cornelius CC: Nirav Braun MD; Beth Frankel MD Technologist: LISA WATKINS Trnscrd Dt/Tm: 09/29/2020 (0551) [email or web address] Orig Print D/T: S: 09/29/2020 (8458 PAGE 2 Signed ReportBASIC METABOLIC PANEL 2020-09-17 06:40:00 Test Item Value Reference Range Interpretation Comments SODIUM (test code = NA) 141 mmol/l 134.0-147.0 N POTASSIUM (test code = K) 4.6 mmol/L 3.6-5.2 N CHLORIDE (test code = CL) 101 mmol/l 98.0-107.0 N CARBON DIOXIDE (test code = CO2) 31.5 mmol/l 21.0-33.0 N ANION GAP (test code = GAP) 13.1 0-20 N GLUCOSE (test code = GLU) 122 mg/dl 70.0-110.0 H BLOOD UREA NITROGEN (test code = 34 mg/dl 7.0-18.0 H BUN) CREATININE (test code = CREAT) 7.43 mg/dL 0.60-1.30 HH GFR NON BLACK (test code = 8 mL/min 90-95 L GFRNONBLACK) GFR BLACK (test code = GFRBLACK) 10 mL/min 109-115 L CALCIUM (test code = CA) 8.1 mg/dl 8.0-10.5 N CBC W/AUTO [id number] 06:29:00 Test Item Value Reference Range Interpretation Comments WHITE BLOOD CELL (test code = 5.2 K/mm3 4.5-11.0 N WBC) RED BLOOD CELL (test code = 3.51 M/mm3 4.40-5.90 L RBC) HEMOGLOBIN (test code = HGB) 10.1 gm/dL 13.0-17.0 L HEMATOCRIT (test code = HCT) 32.8 % 36.0-48.0 L MEAN CELL VOLUME (test code = 93.4 UM3 80.0-94.0 N MCV) MEAN CELL HGB (test code = MCH) 28.8 UUG 25.5-32.5 N MEAN CELL HGB CONCETRATION 30.8 gm/dL 29.0-35.5 N (test code = MCHC) RED CELL DISTRIBUTION WIDTH 14.6 % 11.5-15.0 N (test code = RDW) RED CELL DISTRIBUTION WIDTH SD 50.2 fL 34.8-50.2 N (test code = RDW-SD) PLATELET COUNT (test code = 129 K/mm3 150-400 L PLT) MEAN PLATELET VOLUME (test code 9.8 fl 7.4-10.4 N = MPV) NEUTROPHIL % (test code = NT%) 68.3 % 49.0-76.0 N IMMATURE GRANULOCYTE % (test 0.4 % 0.0-0.4 N code = IG%) LYMPHOCYTE % (test code = LY%) 17.8 % 23.0-38.0 L MONOCYTE % (test code = MO%) 10.4 % 1.0-10.0 H EOSINOPHIL % (test code = EO%) 2.3 % 1.0-5.0 N BASOPHIL % (test code = BA%) 0.8 % 0.0-1.0 N NUCLEATED RBC % (test code = 0.0 % 0.0-0.1 N NRBC%) NEUTROPHIL # (test code = NT#) 3.5 K/mm3 2.4-6.3 N IMMATURE GRANULOCYTE # (test 0.02 x10 3/uL 0.00-0.07 N code = IG#) LYMPHOCYTE # (test code = LY#) 0.9 K/mm3 1.2-4.0 L MONOCYTE # (test code = MO#) 0.5 K/mm3 0.0-0.6 N EOSINOPHIL # (test code = EO#) 0.1 K/MM3 0.0-0.7 N BASOPHIL # (test code = BA#) 0.0 K/mm3 0.0-0.2 N NUCLEATED RBC # (test code = 0.00 X10 3uL 0.00-0.01 N NRBC#) COVID 19 Asymptomatic IH [id number] 05:55:00 Test Item Value Reference Range Interpretation Comments COVID 19 NEGATIVE NEGATIVE Negative result s should be Asymptomatic IH AG treated a s presumptive and (test code = ifinconsistent with COVNONPUIAG) clinical signs and symptoms, or ne cessaryfor patient managem ent, should be tested with an alternativemole cular assay. Negative results do not preclude CSDF-CfS-3cutek tion and should not be u sed as the sole basis forp atient management deci sions. Negative result s should beconsidered in the context of a pa rc's recent exposure s,history, presence of cli nical signs and symptoms consistentwith COVID-19. LACTIC [id number] 09:23:00 Test Item Value Reference Range Interpretation Comments LACTIC ACID (test code = LACT) 1.0 MMOL/L 0.4-2.0 N BASIC METABOLIC [id number] 09:11:00 Test Item Value Reference Range Interpretation Comments SODIUM (test code = 140 mmol/l 134.0-147.0 N NA) POTASSIUM (test code = 5.2 mmol/L 3.6-5.2 N IS SA MPLE HEMOLYSED? K) NO CHLORIDE (test code = 101 mmol/l 98.0-107.0 N CL) CARBON DIOXIDE (test 30.5 mmol/l 21.0-33.0 N code = CO2) ANION GAP (test code = 13.7 0-20 N GAP) GLUCOSE (test code = 101 mg/dl 70.0-110.0 N GLU) BLOOD UREA NITROGEN 29 mg/dl 7.0-18.0 H (test code = BUN) CREATININE (test code 7.47 mg/dL 0.60-1.30 HH = CREAT) GFR NON BLACK (test 8 mL/min 90-95 L code = GFRNONBLACK) GFR BLACK (test code = 10 mL/min 109-115 L GFRBLACK) CALCIUM (test code = 8.2 mg/dl 8.0-10.5 N CA) CBC W/AUTO [id number] 09:06:00 Test Item Value Reference Range Interpretation Comments WHITE BLOOD CELL (test code = 6.3 K/mm3 4.5-11.0 N WBC) RED BLOOD CELL (test code = 3.59 M/mm3 4.40-5.90 L RBC) HEMOGLOBIN (test code = HGB) 10.6 gm/dL 13.0-17.0 L HEMATOCRIT (test code = HCT) 34.9 % 36.0-48.0 L MEAN CELL VOLUME (test code = 97.2 UM3 80.0-94.0 H MCV) MEAN CELL HGB (test code = MCH) 29.5 UUG 25.5-32.5 N MEAN CELL HGB CONCETRATION 30.4 gm/dL 29.0-35.5 N (test code = MCHC) RED CELL DISTRIBUTION WIDTH 15.2 % 11.5-15.0 H (test code = RDW) RED CELL DISTRIBUTION WIDTH SD 52.9 fL 34.8-50.2 H (test code = RDW-SD) PLATELET COUNT (test code = 157 K/mm3 150-400 N PLT) MEAN PLATELET VOLUME (test code 10.0 fl 7.4-10.4 N = MPV) NEUTROPHIL % (test code = NT%) 73.0 % 49.0-76.0 N IMMATURE GRANULOCYTE % (test 0.5 % 0.0-0.4 H code = IG%) LYMPHOCYTE % (test code = LY%) 15.1 % 23.0-38.0 L MONOCYTE % (test code = MO%) 8.3 % 1.0-10.0 N EOSINOPHIL % (test code = EO%) 2.5 % 1.0-5.0 N BASOPHIL % (test code = BA%) 0.6 % 0.0-1.0 N NUCLEATED RBC % (test code = 0.0 % 0.0-0.1 N NRBC%) NEUTROPHIL # (test code = NT#) 4.6 K/mm3 2.4-6.3 N IMMATURE GRANULOCYTE # (test 0.03 x10 3/uL 0.00-0.07 N code = IG#) LYMPHOCYTE # (test code = LY#) 1.0 K/mm3 1.2-4.0 L MONOCYTE # (test code = MO#) 0.5 K/mm3 0.0-0.6 N EOSINOPHIL # (test code = EO#) 0.2 K/MM3 0.0-0.7 N BASOPHIL # (test code = BA#) 0.0 K/mm3 0.0-0.2 N NUCLEATED RBC # (test code = 0.00 X10 3uL 0.00-0.01 N NRBC#) SURGICAL [id number] 14:26:00 RUN DATE: 02/21/20 [facility] - LAB PAGE 1 RUN TIME: 1427 Specimen Inquiry RUN USER: INTERFACE PATIENT: ROSY MAGUIRE LOC: [facility] U #: [id number] AGE/SX: 49/M ROOM: [facility]02[facility]: Saroj Coates MD : 68 BED: DIS: STATUS: DEP [facility] [place] [facility] [place] TLOC: SPEC #: [id number] RECD: 02/20/20 STATUS: NEIL CRENSHAW #: [id number] BENEDICTO: 02/20/[address] [facility] [address]: Saroj Coates MD ENTERED: 02/20/20 SP TYPE: SURG OTHR DR: ORDERED: PATHGM3, PATH SPEC, H E STAIN HISTOLOGY: TISSUE ID BLK PCS GHADA LEV / PROCEDURE DISPOSITION ____ ___ ___ ___ ___ PILONIDAL CYSTA 5 1 TISSUES: A. PILONIDAL CYST - [...] cm. There is a crease down the middleof the skin ellipse. Near one area of the deep margin, there is a defect which may be associatedwith a subcutaneous tissue cyst or lesion. The specimen is unoriented. The margins are inked black. The specimen is serially sectioned. In the midportion of the specimen is a hemorrhagic area in the deep dermis/subcutaneous tissue which may represent a portion of cyst or abscess which measures 1x 0.5 cm. A separate fibrous area with small foci of hemorrhage is noted in the deep dermis/subcutaneous tissue which measures approximately 1 x 1 x 1 cm. Forming Press Operator sections are submitted asfollows: SECTION CODE: CONTINUED ON NEXT PAGE RUN DATE: 02/21/20 [facility] - LAB PAGE 2 RUN TIME: 1427 Specimen Inquiry RUN USER: INTERFACE SPEC #: [id number] PATIENT: ROSY MAGUIRE #[id number] (Con tinued) GROSS DESCRIPTION (Continued) A1-A2: First described small area A3-A5: Larger second described nodule RAB/th MICROSCOPIC DESCRIPTION Microscopic performed. Signed SIGNATURE ON FILE Rosemarie Ryder MD 02/21/20 1426 END OF REPORT [id number] 13:17:00 Test Item Value Reference Range Interpretation Comments GLUBED (test code = GLUBED) 101 MG/DL 70-105 N BASIC METABOLIC [id number] 06:39:00 Test Item Value Reference Range Interpretation [...] HH Critic al Value = CREAT) reported toFirs t Name:REVA Last Name:DAVIDTERELL DE LA CRUZ READ BACK AND VERIFIEDby BEBETO BO, on 02/20/20, @ 0637. CALCIUM (test code = 8.8 mg/dL 8.8-10.2 N CA) CBC W/AUTO [id number] 06:35:00 Test Item Value Reference Range Interpretation [...] BA#) 0.05 x10 3/uL 0.0-0.20 N SPECIAL [id number] 17:[facility] 2018-07-12 17:02:005.8[facility] [id number] 17:02:005.8 [facility] [id number] 17:02:005.8[facility] [id number] 16:58:004.6[facility] [id number] 16:58:007.0 [facility] [id number] 16:58:002.4[facility]ann[facility]OLOG[facility] 2018-07-12 16:58:000.8[facility] OnsjepoFAUMOTNTZF4591-02-24 16:58:0022.5[facility] [id number] 16:58:007.2[facility] FyjakuyVLJTZIUVKO5960-87-24 16:58:000.5[facility] IwslqjpRYUSLFWSSR1769-94-73 16:58:000.1[facility] [id number] 16:58:0065.1[facility] [id number] 16:58:00Negative (07/12/18 11:58 AM)[facility] RqrjkeqSIPLGCVBHHGW1612-83-17 16:58:0010.2[facility] LrhycnyTOFHUBCFQICH0085-28-49 16:58:0019[facility] YSSTWSNFYDUB7728-27-41 16:58:008.0[facility] LnyknuiLOTCHMJETRUI9807-06-38 16:58:0026[facility] FlsavhlNKPVOHHTQUNF8234-97-56 16:58:003.53[facility] GEDUEGHOCKFI9498-15-34 16:58:0033[facility] JzewanoQTGVPUUDQBIV5986-46-26 16:58:00 86[facility] YkxxjozCZOILERYJKVY6799-52-75 16:58:17647Iefvjfzj HermannELECTROLYTES 2018-07-12 16:58:81040Kewimrxs RaavyckGEXFBEVCRXTJ6330-29-69 16:58:005.2[facility] PupprhnTVKMAABIZO9131-35-69 16:58:00 Test Item Value Reference Range Interpretation Comments PTT (test code = PTT) 34.8 s 22.9-35.8 [facility] NrnjgboXDWDMRXXFD1624-58-72 16:58:00 Test Item Value Reference Range Interpretation Comments INR (test code = INR) 0.94 1 0.85-1.17 [facility] UawfwjzJOWHFHTQEG7679-48-88 16:58:00 Test Item Value Reference Range Interpretation Comments PT (test code = PT) 12.6 s 12.0-14.7 [facility] YbwbifxFQCMGCAMGS1473-06-50 16:58:80654Ufebuecp HermannHEMATOLOGY 2018-07-12 16:58:007.6[facility] GfjpcsoJZCFGWAKJH3636-97-32 16:58:0037.0[facility] FosqieiGNVDNRTJRY5121-52-64 16:58:00 Test Item Value Reference Range Interpretation Comments MCH (test code = MCH) 27.0 pg 27.0-31.0 [facility] CpfuyscXQPOCEZIXW8329-32-83 16:58:0032.7[facility] HermannHEMATOLOGY 2018-07-12 16:58:0015.7[facility] DcbmrtzLIBCUMMKIJ1250-89-14 16:58:0082.5[facility] CkzgqdiBYFPAZORBQ8144-03-56 16:58:0012.1[facility] JhnvsnbHBRUYWJTGB3055-60-59 16:58:004.49[facility] NbxvyxpFIPBMMVYMO9325-67-76 16:58:0010.7[facility] Rob HASGFAQRKR8642-87-11 16:58:000.6[facility] HkofhmmIMXGKAAVCC3763-28-56 16:58:004.6 [facility] SzouvboYDNLGWZCYB0517-31-74 16:58:007.0[facility] HermannHEMATOLOGY 2018-07-12 16:58:002.4[facility] AkkzrzrFUBRKUKVAC1683-17-27 16:58:000.8[facility] KjryqhyVFZRBKRQAP1808-96-06 16:58:0022.5[facility] RfpwxiaEYJDWWJYUB7740-00-12 16:58:007.2[facility] BqxqqphAUWYAUKOPJ5026-51-88 16:58:000.5[facility] AQUHZVLRGX8655-34-32 16:58:000.1[facility] RzicldpCNFJWDPECQ2341-53-44 16:58:00 65.1[facility] HermannBLOOD BANK ELWOLNF8554-20-22 16:58:00Negative (07/12/18 11:58 AM)[facility] JatnsgeMNLTHLRDSEFX1451-22-83 16:58:0010.2[facility] WOGYQTUPVORT7520-98-23 16:58:0019[facility] ZcuakjlFFKCCKFQFCTW0109-95-75 16:58:00 8.0[facility] ZhvachoGLOQLGZTPTAD1932-08-19 16:58:0026[facility] HermannELECTROLYTES 2018-07-12 16:58:003.53[facility] FzzplleBOZLZGCUAMCM0023-45-42 16:58:0033[facility] PkmgahiSYOUJHQNMTKI2468-38-47 16:58:0086[facility] GvwryfkYINHXMHQUWEV7153-25-67 16:58:94891Zofuzzmt AgcogahLXGBJGDBLHVS5720-71-41 16:58:84242Sfxeisxm [place] CTNZKFXOPLEM2443-11-64 16:58:005.2[facility] MarffsrKZKLMNIVUC6364-10-44 16:58:00 Test Item Value Reference Range Interpretation Comments PTT (test code = PTT) 34.8 s 22.9-35.8 [facility] QrsoxsrTKPEDEWCAK3298-65-14 16:58:00 Test Item Value Reference Range Interpretation Comments INR (test code = INR) 0.94 1 0.85-1.17 [facility]qypxyyXVNVIODRCM0193-81-10 16:58:00 Test Item Value Reference Range Interpretation Comments PT (test code = PT) 12.6 s 12.0-14.7 [facility] JmqrcwzLMAHJNRLET5342-99-43 16:58:64123Mostimnu HermannHEMATOLOGY 2018-07-12 16:58:007.6[facility] XnrfyhfLHTPWIAEAK6234-09-81 16:58:0037.0[facility] AxpdnshXHQISRGFJJ7875-37-65 16:58:00 Test Item Value Reference Range Interpretation Comments MCH (test code = MCH) 27.0 pg 27.0-31.0 [facility] NdymxhsOXBJOYJHMZ8260-82-51 16:58:0032.7[facility] HermannHEMATOLOGY 2018-07-12 16:58:0015.7[facility] IgtfqwcEXAANXZFMF2514-93-88 16:58:0082.5[facility] LepxjdxPNTEHKVOEG6859-17-37 16:58:0012.1[facility] FuftpajMHSJGFDJLZ8883-27-07 16:58:004.49[facility] UizlesfBVOJWKQEVP4723-17-02 16:58:0010.7[facility] SHUUPELSIS2603-80-37 16:58:000.6[facility] VcrjqsdMKVWJSSOYP1052-36-83 16:58:004.6 [facility] SzjzvkcGKNWKUBRQD8747-68-42 16:58:007.0[facility] HermannHEMATOLOGY 2018-07-12 16:58:002.4[facility] HvacyubOPIVHFECFH6457-43-13 16:58:000.8[facility] AlycckpOHGRMIBEVD3312-69-98 16:58:0022.5[facility] JwpxfyrYQGHRXKEMI3130-45-36 16:58:007.2[facility] KcxecpeSQXHATCMEY2913-36-36 16:58:000.5[facility] Rob SURAVIGGOL1131-86-50 16:58:000.1[facility] PfjknkhGQQBIBEEBY6345-00-61 16:58:00 65.1[facility] HermannBLOOD BANK ZZBASWD9967-91-65 16:58:00Negative (9/6/18 11:58 AM)[facility] IsnfexkNABYVCPIMERD4857-03-31 16:58:0010.2[facility] Rob BLXWVSBHZCZW9323-38-37 16:58:0019[facility] HmobibvEVNHNZGMGNAB4400-51-28 16:58:00 8.0[facility] LmozzrdPFCSUZXJAXPN0604-29-05 16:58:0026[facility] HermannELECTROLYTES 2018-07-12 16:58:003.53[facility] XgqxapbZJAOBZMOOWJR7644-69-84 16:58:0033[facility] EybsgcmPBKRYUOOXNXT6476-63-54 16:58:0086[facility] BzsiybwWJSRLUNRTUPA8090-83-21 16:58:95874Wmraimtt ItdwdgvBTEGQUBEMGTX3454-32-17 16:58:34610Jpzbgdml Rob VCISRETUJNHO8281-02-26 16:58:005.2[facility] XnooszjTEWRSWDPXA6110-54-21 16:58:00 Test Item Value Reference Range Interpretation Comments PTT (test code = PTT) 34.8 s 22.9-35.8 [facility] YkutzzhPZWKMXJIUD4976-12-92 16:58:00 Test Item Value Reference Range Interpretation Comments INR (test code = INR) 0.94 1 0.85-1.17 [facility] LqrcunnSFSAJMNUTB3801-35-83 16:58:00 Test Item Value Reference Range Interpretation Comments PT (test code = PT) 12.6 s 12.0-14.7 [facility] KfjcnrePZZWZHXQJQ0070-71-56 16:58:35297Aknjgnuf HermannHEMATOLOGY 2018-07-12 16:58:007.6[facility] WspyrloMCGWDFDSEP6973-14-19 16:58:0037.0[facility] BbfvuaaMUTDDYOSGR6948-57-65 16:58:00 Test Item Value Reference Range Interpretation Comments MCH (test code = MCH) 27.0 pg 27.0-31.0 [facility] YvqvcccXUENCMVQZO9786-59-38 16:58:0032.7[facility] HermannHEMATOLOGY 2018-07-12 16:58:0015.7[facility] HeypnniECSXGMHTPJ2985-94-56 16:58:0082.5[facility] JthkkajERXBXRJQTB8981-42-49 16:58:0012.1[facility] KhpggesXZSYKQDYJS8309-78-56 16:58:004.49[facility] JfjoxhnHHNEBWXJRJ2546-45-14 16:58:0010.7[facility] Rob PSIGENJYGB4832-26-07 16:58:000.6[facility] BnnjdqoNELGSLMLIO5088-06-16 16:58:004.6 [facility] LnfybfzTPZIXIPDYL8828-22-59 16:58:007.0[facility] HermannHEMATOLOGY 2018-07-12 16:58:002.4[facility] WgpvmvsFWJGDUCYHA4615-68-69 16:58:000.8[facility] CptpndrDEVDWAHWMB5028-35-24 16:58:0022.5[facility] HbrncknAKDOFRCVAL7754-86-79 16:58:007.2[facility] MtlsjqwIWFTYSVEJR3495-16-94 16:58:000.5[facility] Rob CWXUSYMTKQ4640-79-47 16:58:000.1[facility] JourpojOYVYALEQWG9406-24-23 16:58:00 65.1[facility] HermannBLOOD BANK OPECYNP7865-51-19 16:58:00Negative (07/12/18 11:58 AM)[facility] ZclxbxaPLXJVLLVOMLJ8097-44-01 16:58:0010.2[facility] YTSFLGEYBUGI4522-21-92 16:58:0019[facility] NojzctbLOCIIGNYJBPX4702-71-48 16:58:00 8.0[facility] XukyyqfSXRYEEMNUJDI4681-68-04 16:58:0026[facility] HermannELECTROLYTES 2018-07-12 16:58:003.53[facility] BvfntnsXACVQTBQAUWB5940-04-69 16:58:0033[facility] UevuxkxVRKYRTHICMOA7096-13-87 16:58:0086[facility] DjpyensRXECXVYEGPYY0352-87-22 16:58:61910Fweiezdz HxususkMLHQWDPLGWUX0346-99-62 16:58:09291Voqbidne Rob QZJOVPMXPBNN5438-92-91 16:58:005.2[facility] AlthyymTMCSULXXXY1023-48-35 16:58:00 Test Item Value Reference Range Interpretation Comments PTT (test code = PTT) 34.8 s 22.9-35.8 [facility]TtsszulYLPVHAXKAH4185-74-65 16:58:00 Test Item Value Reference Range Interpretation Comments INR (test code = INR) 0.94 1 0.85-1.17 [facility]PltwuotRMCZBJYJOQ8226-43-25 16:58:00 Test Item Value Reference Range Interpretation Comments PT (test code = PT) 12.6 s 12.0-14.7 [facility]anoAsezidnYXRGFYIWEL8686-70-86 16:58:71454Daebytlb HermannHEMATOLOGY 2018-07-12 16:58:007.6[facility] CxrsdtaMQGZTDIGMG0656-01-60 16:58:0037.0[facility] CjqtgqpYCVYTZMUQC8257-56-89 16:58:00 Test Item Value Reference Range Interpretation Comments MCH (test code = MCH) 27.0 pg 27.0-31.0 [facility]anoRznkbmhECIXYHHNBL4272-03-66 16:58:0032.7[facility] HermannHEMATOLOGY 2018-07-12 16:58:0015.7[facility] OmrvrueNWSCAJOETE5194-37-72 16:58:0082.5[facility] UzconttIHUFZHNWCK9323-80-38 16:58:0012.1[facility] EqcswdvHUJNCZZWLA0877-05-11 16:58:004.49[facility] KhjzmmsXZIJHJPZYJ5934-14-27 16:58:0010.7[facility] Rob XUQZFAMNKN0678-86-79 16:58:000.6[facility]
--- NOTE | 2022-03-28 14:01 | RAD REPORT ---
EXAM DESCRIPTION: US - UPPER EXTREMITY VENOUS UNILATE - 03/28/2022 1:49 pm CLINICAL HISTORY: Left arm pain and swelling COMPARISON: None. TECHNIQUE: Real-time sonographic evaluation of the left upper extremity deep venous systems was perf ormed. FINDINGS: Normal compressibility, flow augmentation, phasic flow and spontaneous flow are identified in the left upper extremity deep venous system. No intraluminal filling defects seen. Internal jugul ar and subclavian veins are normal as well. Superficial basilic vein is patent. Superficial cephalic vein was not well visualized possibly due to the known fistula. IMPRESSION: No DVT in the left upper extremity.
--- NOTE | 2022-03-28 14:06 | RAD REPORT ---
EXAM DESCRIPTION: US - Extremity Nonvascular Complete - 03/28/2022 1:49 pm CLINICAL HISTORY: Pain, palpable mass proximal left upper extremity, known fistula patient COMPARISON: UPPER EXTREMITY VENOUS UNILATE dated 03/28/2022 FINDINGS: In the proximal left upper extremity at the site of painful, palpable mass there is a 5 ce ntimeter thin-walled mostly anechoic mass. A few linear echogenic strands are present. This mass is a within 3-4 mm of the patent fistula ; however, there is no evidence for communication. Doppler asses sment of the 5 cm mass shows no evidence for pseudoaneurysm for intraluminal blood flow. This is most likely an old hematoma/ seroma from remote access of the fistula. No other mass or focal abnormality identified. No suspicious findings in the imaged portions of the f istula. IMPRESSION: Approximately 5 cm thin-walled anechoic to mostly anechoic mass adjacent to but not comm unicating with the patient's patent fistula. The cystic mass does not show pseudoaneurysm characteristics or internal blood flow. This is probably an old hematoma/seroma.
[2022-03-28] MEDS ORDERED: HYDROCODONE/APAP 7.5/325 MG TAB ONE (15:30)
--- NOTE | 2022-03-28 15:32 | ER ---
Nurse's Notes [facility] Name: Vladimir Maguire Age: 51 yrs Sex: Male : 1970 Arrival Date: 03/28/2022 Time: 12:43 Bed 12 Private MD: Diagnosis: Nontraumatic hematoma of soft tissue-left upper arm Presentation: 03/28 13:11 Chief complaint: Patient states: "I need dialysis and they blew my main artery and said jd3 because I still have the swelling, I need to come to the ER and I refuse to go to [place].". Coronavirus screen: At this time, the client does not indicate any symptoms associated with coronavirus-19. Ebola Screen: No symptoms or risks identified at this time. Initial Sepsis Screen: Does the patient meet any 2 criteria? No. Patient's initial sepsis screen is negative. Does the patient have a suspected source of infection? No. Patient's initial sepsis screen is negative. Risk Assessment: Do you want to hurt yourself or someone else? Patient reports no desire to harm self or others. Onset of symptoms was March 23, 2022. 13:11 Method Of Arrival: Ambulatory jd3 13:11 Acuity: GINA 3 jd3 Historical: - Allergies: 13:12 Ativan; jd3 - PMHx: 13:12 Diabetes - NIDDM; Hypertension; neuropathy; Renal Disease; Rheumatoid Arthritis; jd3 - PSHx: 13:12 dialysis site to left arm; jd3 - Immunization history:: Adult Immunizations up to date, Client reports receiving the 2nd dose of the Covid vaccine. - Social history:: Smoking status: Patient denies any tobacco usage or history of. Screenin:28 Abuse screen: Denies threats or abuse. Denies injuries from another. Nutritional ww screening: No deficits noted. Tuberculosis screening: No symptoms or risk factors identified. Fall Risk None identified. Assessment: 15:28 General: Appears in no apparent distress. Behavior is calm, cooperative. Pain: ww Complains of pain in left bicep. Neuro: Level of Consciousness is awake, alert, obeys commands, Oriented to person, place, time, situation, Moves all extremities. Speech is normal. Respiratory: Airway is patent Respiratory effort is even, unlabored, Respiratory pattern is regular, symmetrical. Derm: Bruising that is dark purple, green, yellow, on left bicep. Vital Signs: 13:13 BP 113 / 63; Pulse 72; Resp 18 S; Temp 97.3(TE); Pulse Ox 100% on R/A; Weight 102.06 kg jd3 (R); Height 5 ft. 10 in. (177.80 cm) (R); Pain 7/10; 13:13 Body Mass Index 32.28 (102.06 kg, 177.80 cm) jd3 ED Course: 12:43 Patient arrived in ED. as 13:02 oRcael Smith PA is PHCP. cp 13:03 Jeevan Guzman DO is Attending Physician. cp 13:12 Triage completed. jd3 13:14 Arm band placed on. jd3 13:50 Extremity Nonvascular Complete In Process Unspecified. EDMS 13:51 UPPER EXTREMITY VENOUS UNILATE In Process Unspecified. EDMS 15:28 Patient has correct armband on for positive identification. Call light in reach. ww 15:28 No provider procedures requiring assistance completed. Patient did not have IV access ww during this emergency room visit. 15:30 Dressings: julio c wrap applied to left upper arm, left radial pulse 2+, cap refill less ww than 3, skin warm and dry. patient able to move arm and fingers. Administered Medications: 15:28 Drug: Hydrocodone-Acetaminophen (7.5 mg-325 mg) 1 tabs Route: PO; ww Medication: 15:28 VIS not applicable for this client. ww Outcome: 15:30 Discharged to home ambulatory. ww 15:30 Condition: stable 15:30 Discharge instructions given to patient, Instructed on discharge instructions, follow up and referral plans. safety practices, wound care, Demonstrated understanding of instructions, follow-up care, wound care. 15:32 Discharge ordered by . cp 15:39 Patient left the ED. ww Signatures: Dispatcher [employer] EDMS Gita Madden as Rocael Smith PA PA cp Davies, Jonathon, RN RN jd3 Sheeba Hebert RN RN ww
--- NOTE | 2022-03-28 15:32 | EDPHYS ---
Physician Documentation [facility] Name: Vladimir Maguire Age: 51 yrs Sex: Male : 1970 Arrival Date: 03/28/2022 Time: 12:43 Bed 12 Private MD: ED Physician Jeevan Guzman HPI: 03/28 14:00 This 51 yrs old Male presents to ER via Ambulatory with complaints of Arm Pain cp - swelling. 14:00 The patient or guardian complains of swelling. The complaints affect the medial aspect cp left upper arm. 14:00 Onset: The symptoms/episode began/occurred 5 day(s) ago. cp 14:00 Context: resulted from attempt to use dialysis fistula. Treatment prior to arrival cp includes: no previous treatment. Associated signs and symptoms: Pertinent positives: pain, swelling, Pertinent negatives: decreased range of motion, erythema, fever, warmth. Historical: - Allergies: 13:12 Ativan; jd3 - PMHx: 13:12 Diabetes - NIDDM; Hypertension; neuropathy; Renal Disease; Rheumatoid Arthritis; jd3 - PSHx: 13:12 dialysis site to left arm; jd3 - Immunization history:: Adult Immunizations up to date, Client reports receiving the 2nd dose of the Covid vaccine. - Social history:: Smoking status: Patient denies any tobacco usage or history of. ROS: 15:00 MS/extremity: Positive for ecchymosis, pain, swelling, tenderness, of the left upper cp arm. 15:00 Constitutional: Negative for body aches, chills, fever, poor PO intake. cp 15:00 Eyes: Negative for injury, pain, redness, and discharge. cp 15:00 Neck: Negative for pain with movement, pain at rest, stiffness. 15:00 Cardiovascular: Negative for chest pain, edema, palpitations. 15:00 Respiratory: Negative for cough, shortness of breath, wheezing. 15:00 Abdomen/GI: Negative for abdominal pain, nausea, vomiting, and diarrhea. 15:00 Neuro: Negative for altered mental status, headache, weakness. 15:00 All other systems are negative. Exam: 15:03 Constitutional: The patient appears in no acute distress, alert, awake, cp non-diaphoretic, non-toxic, well developed, well nourished. 15:03 Head/Face: Normocephalic, atraumatic. cp 15:03 Chest/axilla: Inspection: normal. 15:03 Cardiovascular: Rate: normal. 15:03 Respiratory: the patient does not display signs of respiratory distress, Respirations: normal, no use of accessory muscles, no retractions, labored breathing, is not present. 15:03 Abdomen/GI: Inspection: abdomen appears normal. 15:03 Musculoskeletal/extremity: Extremities: grossly normal except: noted in the medial aspect left upper arm: ecchymosis, swelling, tenderness, baseball size hematoma noted, There is no evidence of decreased ROM, ROM: full active range of motion, in the left arm, Pulses: noted to be 2+ in the left radial artery, the left arm Sensation intact. 15:03 Skin: cellulitis, is not appreciated, on the left arm. Vital Signs: 13:13 BP 113 / 63; Pulse 72; Resp 18 S; Temp 97.3(TE); Pulse Ox 100% on R/A; Weight 102.06 kg jd3 (R); Height 5 ft. 10 in. (177.80 cm) (R); Pain 7/10; 13:13 Body Mass Index 32.28 (102.06 kg, 177.80 cm) jd3 MDM: 14:42 Patient medically screened. cp 15:00 Differential diagnosis: cellulitis, abscess, contusion, aneurysm, pseudoaneurysm. cp 15:32 Data reviewed: vital signs, nurses notes, radiologic studies, ultrasound, I have cp discussed the patient's presentation/case with the attending Emergency Department Physician; and as a result, I will discharge patient. 15:32 Counseling: I had a detailed discussion with the patient and/or guardian regarding: the cp historical points, exam findings, and any diagnostic results supporting the discharge/admit diagnosis, radiology results, the need for outpatient follow up, vascular surgery, to return to the emergency department if symptoms worsen or persist or if there are any questions or concerns that arise at home. 03/28 13:26 Order name: UPPER EXTREMITY VENOUS UNILATE; Complete Time: 14:31 EDMI 03/28 13:50 Order name: Extremity Nonvascular Complete; Complete Time: 14: [facility] 03/28 14:59 Order name: Isrrael Wrap: loose to left upper arm; Complete Time: 15:28 cp Administered Medications: 15:28 Drug: Hydrocodone-Acetaminophen (7.5 mg-325 mg) 1 tabs Route: PO; ww Disposition: 18:22 Co-signature as Attending Physician, Jeevan Guzman DO I was immediately available on-site ms3 in the Emergency Department for consultation in the care of the patient.. Disposition Summary: 03/28/22 15:32 Discharge Ordered Location: Home cp Problem: new cp Symptoms: have improved cp Condition: Stable cp Diagnosis - Nontraumatic hematoma of soft tissue - left upper arm cp Followup: cp - With: Private Physician - When: 2 - 3 days - Reason: Recheck today's complaints Discharge Instructions: - Discharge Summary Sheet cp - Hematoma cp Forms: - Medication Reconciliation Form cp - Thank You Letter cp - Antibiotic Education cp - Prescription Opioid Use cp Signatures: Dispatcher [employer] EDMS Rocael Smith PA PA cp Davies, Jonathon, RN RN jd3 Jeevan Guzman DO DO ms3 Sheeba Hebert RN RN ww Corrections: (The following items were deleted from the chart) 13:26 13:21 Extremity Venous Uni Ltd+US.RAD.BRZ ordered. EDMS EDMS 13:50 13:21 Extrmty Nonvasular Limited+US.RAD.BRZ ordered. EDMS EDMS
[2022-03-28 15:58] VITALS: BP 113/63; TEMP 97.3; O2SAT 100
== END 2022-03-28 15:39 | disposition home or self-care (01) ==
LOC: ER 12:40
DX: S40.022A Contusion of left upper arm, initial encounter (principal); X58.XXXA Exposure to other specified factors, initial encounter; E11.9 Type 2 diabetes mellitus without complications; I10 Essential (primary) hypertension; M06.9 Rheumatoid arthritis, unspecified; N28.9 Disorder of kidney and ureter, unspecified
CPT/HCPCS: 76881; 93971; 99283

== ENCOUNTER 2022-04-13 18:09 | Inpatient (IN) | payer OTHER ==
--- OUTSIDE RECORDS SUMMARY | 2022-04-13 18:16 | XMS REPORT | Continuity of Care Document ---
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 0.5% 2013-06-28 Completed [facility]alth [facility]manda 15ml 00:00:00 PPV 23 Pneumococcal 2013-03-29 Completed [facility] Polysaccaride 00:00:00 PPV 23 Pneumococcal 2013-03-29 Completed [facility] Polysaccaride 00:00:00 Vital Signs Vital Name Observation Time Observation Value Comments Source Heart rate 2022-03-23 23:35:00 70 /min [facility] Oxygen saturation in 2022-03-23 23:35:00 99 /min [facility] Arterial blood by [facility] Pulse oximetry Branch Systolic blood 2022-03-23 23:05:00 154 mm[Hg] [facility]iver [facility] Diastolic blood 2022-03-23 23:05:00 83 mm[Hg] Unive rsity [facility] Respiratory rate 2022-03-23 23:05:00 18 /[facility] temperature 2022-03-23 21:49:00 37 [facility]ne [facility] Body weight 2022-03-23 21:49:00 101.152 kg [facility] BMI 2022-03-23 21:49:00 32.00 kg/m2 [facility] Respitory Rate 2018-07-12 17:23:00 Ministerio willis Rob Heart Rate 2018-07-12 17:23:00 [facility] Oral (F) 2018-07-12 17:23:00 98 F [facility] Systolic (mm Hg) 2018-07-12 17:23:00 Pete rial [place] Diastolic (mm Hg) 2018-07-12 17:23:00 Mem orial Rob BMI Calculated 2018-07-12 17:01:00 Ministerio al [place] Weight 2018-07-12 17:01:00 [facility] Height 2018-07-12 17:01:00 180.34 cm [facility] Rob Procedures Procedure Date / Time Performing Clinician Source Performed CONSENT/REFUSAL FOR 2022-03-23 21:42:08 Doctor Unassigned, No Un [facility] DIAGNOSIS AND TREATMENT Name Medical Branch [id number] 2020-10-26 00:00:00 JUNE [facility] [id number] 2020-10-20 00:00:00 ADY [facility] [id number] 2020-10-20 00:00:00 RUTHIE ZURI [facility] [id number] 2020-10-20 00:00:00 [facility] [id number] 2020-10-20 00:00:00 [facility] [id number] 2020-10-20 00:00:00 [facility] [id number] 2020-10-20 00:00:00 [facility] Amputation [facility] Anterior spinal fusion [facility] for cervical spinal deformity BKA - Below knee [facility] Insertion of tunnelled [facility] dialysis catheter using fluoroscopic guidance Knee replacement [facility] n ORIF - Open reduction [facility] and internal fixation of fracture Tonsillectomy [facility] Plan of Care Planned Activity Planned Date Details Comments Source Future Scheduled Test 2018 00:00:00 Screening for [facility] malignant neoplasm of colon (procedure) [code = 266986434] Future Scheduled Test 2018 00:00:00 Screening for [facility] malignant neoplasm of colon (procedure) [code = 150672518] Future Scheduled Test 1980 00:00:00 COVID-19 Vaccine (1) [facility] [code = COVID-19 Vaccine (1)] Future Scheduled Test 1980 00:00:00 COVID-19 Vaccine (1) [facility] [code = COVID-19 Vaccine (1)] Encounters Start End Encounter Admission Attending Care Care Encounter Source Date/Time Date/Time Type Type Clinicians Facility Department ID 2022-02-27 Outpatient [facility] [id number] [place] 13:36:34 [id number] [facility] 2022-02-24 Outpatient [facility] [id number] [place] 09:21:19 [id number] [facility] 2022-02-22 Outpatient [facility] [id number] [place] 06:54:13 [id number] [facility] 2022-02-13 Outpatient [facility] [id number] [place] 17:29:23 [facility] 2021-09-14 Inpatient EL Cristianam, HCAMN MMRI [id number] [facility] 10:00:00 Nirav [id number] [facility] 2021-09-13 Inpatient EL Killam, HCAMN MMRI [id number] [facility] 10:00:00 Nirav [id number] [facility] 2021-04-02 Inpatient Angeline Coatesr [facility] DAYS [id number] [facility] 09:15:00 [id number] [facility] 2020-11-30 Inpatient Frankel, HCACL DAYS [id number] [facility] 14:00:00 Dhruvil [id number] [facility] 2020-11-27 Inpatient Frankel, HCACL DAYS [id number] [facility] 08:30:00 Dhruvil [id number] [facility] 2020-11-26 Inpatient EL Marlys, HCAMN MRAD [id number] [facility] 14:29:00 Dhruvil [id number] [facility] 2020-11-13 Inpatient EM EDDOC, HCAMN MRAD [id number] [facility] 13:08:00 GENERIC [id number] [facility] 2020-10-24 Inpatient HCACL SARA [id number] [facility] 21:12:00 [id number] [facility] 2020-10-24 Inpatient HCAMN KAITLYNN [id number] [facility] 17:30:00 [id number] [facility] 2020-10-16 Inpatient EL Marlys, HCACL DAYS [id number] [facility] 08:00:00 Dhruvil [id number] [facility] 2020-10-03 Inpatient HCAMN KAITLYNN [id number] [facility] 12:12:00 [id number] [facility] 2020-08-15 Inpatient HCAMN KAITLYNN [id number] [facility] 07:53:00 [facility] 2020-02-20 Inpatient Angeline Coatesr [facility] DAYS [id number] [facility] 08:15:00 [id number] [facility] 2022-04-14 2022-04-14 Outpatient R JERE, [facility] [id number] Univers 13:20:00 13:20:00 JEROD [id number] efrain donnelly [facility] 2022-04-14 2022-04-14 Outpatient R JERE, [facility] [id number] Univers 13:20:00 13:20:00 JEROD donnelly [facility] 2022-03-23 2022-03-23 Emergency X [facility] ERT [id number] Univers 16:51:00 18:37:00 CHIVO ity [facility] 2022-03-23 2022-03-23 Emergency [facility] [id number] Univers 16:51:00 18:37:00 Chivo Toney LLODYHAYLEY 350.1.13.10 i ty [facility] 4.2.7.2.686 [facility] [place] [id number] [facility] 084 Branch 2022-02-15 2022-02-15 Outpatient [facility] [id number] Univers 11:00:00 11:00:00 LAURAMERVAT efrain o [facility] 2022-02-10 2022-02-10 Telephone [facility] [id number] [facility] 00:00:00 00:00:00 Jerod RENEE 350.1.13.10 ity [facility] 4.2.7.2.686 [facility] [id number] Ks dical REPLACED BY [facility] 2022-02-08 2022-02-08 Outpatient [facility] [id number] Univers 12:47:16 23:59:00 JEROD zuniga cony [facility] 2022-01-26 2022-01-26 [facility] [id number] Univers 00:00:00 00:00:00 Cole Downey MULTISPEC 350.1.13.10 ity [facility] 4.2.7.2.686 [facility] s [place]ONE [place] [id number] [facility] [place] [id number] [facility] 2022-01-06 2022-01-07 Emergency X YASYLMANEW [facility] ERT [id number] Univers 23:32:00 05:14:00 TOMAS zuniga [facility] 2021-08-05 2021-08-05 Outpatient GONZALEZ Martinez DAYS [id number] [facility] 07:27:00 07:27:[address] [place] [address] 2021-08-05 2021-08-05 Outpatient GONZALEZ Martinez DAYS [id number] [facility] 07:27:00 07:27:00 Dhruvil [id number] [facility] 2021-08-04 2021-08-04 Outpatient GONZALEZ Frankel DAYS [id number] [facility] 13:30:00 13:30:00 Dhruvil [id number] [facility] 2021-07-09 2021-07-10 Emergency EM Jeremie, ZURIMN KAITLYNN [id number] [facility] 21:31:00 01:20:00 Xi [id number] [facility] 2021-04-30 2021-04-30 Outpatient Saroj Coates [facility] RE[facility] [id number] [facility] 08:50:00 08:50:00 [id number] [facility] 2021-04-30 2021-04-30 Outpatient Saroj Carmona DAYS [id number] [facility] 02:24:00 02:24:00 [id number] [facility] 2021-04-29 2021-04-29 Telephone Ajay GARICKY [id number] 00:00:00 00:00:00 Cole Downey MULTISPEC 350.1.13.10 IALTY 4.2.7.2.686 CENTER [id number] [facility] 2021-02-08 2021-02-08 Outpatient Marlys GONZALEZ [facility] [id number] [facility] 16:30:00 16:30:00 ruvil [id number] [facility] 2021-01-30 2021-01-31 Emergency Yuko Gottlieb S TRAUMA 1.2.84 [id number] [id number] 19:24:00 00:56:00 Mohamud Mann CENTER 350.1.13.10 4.2.7.2.686 [id number] 2021-01-23 2021-01-23 Outpatient GCCOVIDV GCCOVIDV [id number] GCCOVID 00:00:00 00:00:00 V 2021-01-02 2021-01-02 Outpatient GCCOVIDV GCCOVIDV [id number] [facility] 00:00:00 00:00:00 V 2020-12-02 2020-12-02 Telephone Ajay [facility] [id number] [id number] 00:00:00 00:00:00 Cole Downey MULTISPEC 350.1.13.10 IALTY 4.2.7.2.686 CENTER [id number] [facility]IN [facility] 2020-11-24 2020-11-24 Case Ajay [facility] 1.2.840.114 [id number] 00:00:00 00:00:00 Management Cole Downey MULTISPEC 350.1.13.10 IALTY 4.2.7.2.686 CENTER [id number] [facility]IN [facility] 2020-10-20 2020-10-20 Outpatient Frankel, HCACL DAYS [id number] [facility] 10:15:00 10:15:00 Dhruvil [id number] [facility] 2020-09-29 2020-09-29 Outpatient Frankel, HCAMN MCTS [id number] [facility] 10:00:00 10:00:00 Dhruvil [id number] [facility] 2020-09-17 2020-09-17 Outpatient Fatoumata, HCAMN MCCL [id number] [facility] 09:00:00 09:00:00 Alfredo [id number] [facility] 2020-08-15 2020-08-15 Outpatient Balbir, HCACL LABO [id number] [facility] 14:17:00 14:17:00 Haydee [facility] 2020-02-20 2020-02-20 Outpatient Saroj Coates HCANW REF [id number] [facility] 08:16:00 08:16:00 [id number] [facility] 2018-07-12 2018-07-12 Outpatient [facility] [id number] [facility] 15:45:00 21:00:[address] Results Test Description Test Time Test Comments Results Result Comments Source GLUCOSE BEDSIDE 2021-08-05 11:50:00 Test Item Value Reference Range Interpretation Comme nts GLUCOSE BEDSIDE (test code = 84 MG/DL 70-110 N Performed by certified 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 [facility]) [facility] BASIC METABOLIC [id number] 09:20:00 Test Item Value Reference Range Interpretation [...] = 6.5 mg/dL 8.0-10.5 L CA) GLUCOSE [id number] 09:04:00 Test Item Value Reference Range Interpretation Comments GLUCOSE BEDSIDE (test 79 MG/DL 70-110 N [facility] by certified code = GLUBED) 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 [facility] COVID 19 Asymptomatic IH [id number] 15:30:00 Test Item Value Reference Range Interpretation [...] moderate, high or waivedcomplexit y tests. PROTHROMBIN [id number] 14:36:00 Test Item Value Reference Range Interpretation [...] o prevent recurre nt infarct). THROMBOPLASTIN TIME [id number] 14:36:00 Test Item Value Reference Range Interpretation Comments THROMBOPLASTIN TIME 33.9 Seconds 25.0-39.5 N Ther apeutic PARTIAL (test code = Range: 50.4 - 88.3 PTT) Seconds Effective 02/19/2019 BASIC METABOLIC [id number] 14:28:00 Test Item Value Reference Range Interpretation [...] 8.3 mg/dL 8.0-10.5 N CA) CBC W/AUTO [id number] 14:05:00 Test Item Value Reference Range Interpretation [...] NO = MDIFF) - XR CHEST 2 [id number] 00:00:00 [facility] : 1970 Sex: M FAX: Nirav Cohen MD [place]: St: PRE FAX: Beth Correia MD [phone] FAX: Tamika aHdley Name: ROSY MAGUIRE [facility] : 1970 Age/S: 50/M [address] [place] [address] Unit #: [id number] Loc: [place] [address] Phys: Tamika Hadley HAND II BLOCKER Acct: [id number] Dis Date: Status: PRE [facility] PHONE #: [phone] Exam Date: FAX #: [phone] Reason: PREOP EXAMS: CPT CODE: [id number] XR CHEST 2 V 89781 PROCEDURE INFORMATION: Exam: XR Chest Exam date [...] abnormality. IMPRESSION: No acute cardiopulmonary process. at 4163 Reported and signed by: Mason Pop M.D. CC: Nirav Braun; Beth Frankel MD; Tamika Hadley NP Technologist: RT Supriya(Toney) Trnscrd Date/Time/By: 08/04/2021 (4483) : By: [email or web address] Orig Print D/T: S: 08/04/2021 (2667) PAGE 1 Signed Report- XR KNEE 3 V [id number] 23:20:00 [facility] : 1970 Sex: M FAX: Nirav Cohen MD [place]: St: [facility] FAX: Gisel Dwyer MD Name: ROSY MAGUIRE [facility] : 1970 Age/S: 50/M [address] [facility] [place] [employer] [facility] Unit #: [id number] Loc: [address] Phys: [place] [address] Acct: [id number] Dis Date: Status: REG ER PHONE #: [phone] Exam Date: 07/09/2021 2315 FAX #: [phone] Reason: fall injury EXAMS: CPT CODE: [id number] XR KN[place] 3 [place] [address] Examination: Bilateral knees 3 views Location code: [...] RAO; Gisel Dwyer MD Technologist: Lisa Haines [facility] Date/Time/By: 07/09/2021 (2320) : By: [email or web address] PAGE 1 Signed Report FAX: Nirav Cohen MD [place]: St: REG FAX: Gisel Dwyer MD Name: ROSY MAGUIRE [facility] : 1970 Age/S: 50/M [address] Unit #: [id number] Loc: E.ERS2 [place], [place]: [place] [address] Acct: [id number] Dis Date: Status: REG ER PHONE #: [phone] Exam Date: 07/09/2021 2315 FAX #: [phone] Reason: fall injury EXAMS: CPT CODE: [id number] XR KN[place] [address] <Continued> Orig Print D/T: S: 07/09/2021 (9601) PAGE 2 Signed Report- XR FOREARM 2 VIEWS [id number] 23:18:00 [facility] 1970 Sex: M FAX: Nirav Cohen MD [place]: St: [facility] FAX: Gisel Dwyer MD Name: PRESLEYROSY [facility] : 1970 Age/S: 50/M [address] [facility] Unit #: [id number] Loc: E.ERS2 [place], [place]: [place] [address] Acct: [id number] Dis Date: Status: REG ER PHONE #: [phone] Exam Date: 07/09/20212314 FAX #: [phone] Reason: fall injury EXAMS: CPT CODE: [id number] XR [place] [address] [place] [address] Examination: Right hand 3 views, right forearm [...] MD; Gisel Dwyer MD Technologist: Lisa Haines Trnarrd Date/Time/By: 07/09/2021 (8) : By: [email or web address] PAGE 1 Signed Report FAX: Nirav Cohen MD [place]: St: REG FAX: Gisel Dwyer MD Name: PRESLEYROSY [facility] : 1970 Age/S: 50/M [address] [facility] [employer] [facility] Unit #: [id number] Loc: [address] [place]: [place] [address] Acct: [id number] Dis Date: Status: REG ER PHONE #: [phone] Exam Date: 07/09/20212314 FAX #: [phone] Reason: fall injury EXAMS: CPT CODE: [id number] XR [place] [address] [place] [address] <Continued> Orig Print D/T: S: 07/09/2021 (7294) PAGE 2 Signed Report- XR HUMERUS 2 + V [id number] 23:18:00 [facility] : 1970 Sex: M FAX: Nirav Cohen MD [place]: St: REG FAX: Gisel Dwyer MD Name: ROSY MAGUIRE [facility] : 1970 Age/S: 50/M [address] [facility] Unit #: [id number] Loc: [address] [place]: [place] [address] Acct: [id number] Dis Date: Status: REG ER PHONE #: [phone] Exam Date: 07/09/2021 2315 FAX #: [phone] Reason: fall injury EXAMS: CPT CODE: [id number] XR HUMERUS 2 + V [place] [address] Examination: Right hand 3 views, right forearm [...] MD; Gisel Dwyer MD Technologist: Lisa Haines Trnarrd Date/Time/By: 07/09/2021 (8534) : By: [email or web address] PAGE 1 Signed Report FAX: Nirav Cohen MD [place]: St: REG FAX: Gisel Dwyer MD Name: PRESLEYROSY [facility] : 1970 Age/S: 50/M [address] [facility] Unit #: [id number] Loc: E.[address] [place] [address] [place]: [place] [address] Acct: [id number] Dis Date: Status: REG ER PHONE #: [phone] Exam Date: 07/09/2021 2315 FAX #: [phone] Reason: fall injury EXAMS: CPT CODE: [id number] XR HUMERUS 2 + [place] [address] <Continued> Orig Print D/T: S: 07/09/2021 (0647) PAGE 2 Signed Report- XR HAND 3 + V [id number] 23:18:00 [facility] : 1970 Sex: M FAX: Nirav Cohen MD [place]: St: REG FAX: Gisel Dwyer MD Name: ROSY MAGUIRE [facility] : 1970 Age/S: 50/M [address] [facility] Unit #: [id number] Loc: [address] Phys: [place] [address] Acct: [id number] Dis Date: Status: REG ER PHONE #: [phone] Exam Date: 07/09/20212314 FAX #: [phone] Reason: fall injury EXAMS: CPT CODE: [id number] XR HAND 3 + V RT [address] Examination: Right hand 3 views, right forearm [...] MD; Gisel Dwyer MD Technologist: Lisa Haines Trnlakeshiard Date/Time/By: 07/09/2021 (1785) : By: [email or web address] PAGE 1 Signed Report FAX: Nirav Cohen MD [place]: St: REG FAX: Gisel Dwyer MD Name: ROSY MAGUIRE [facility] : 1970 Age/S: 50/M [address] [facility] [employer] [facility] Unit #: [id number] Loc: [address] [place]: [place] [address] Acct: [id number] Dis Date: Status: REG ER PHONE #: [phone] Exam Date: 07/09/20212314 FAX #: [phone] Reason: fall injury EXAMS: CPT CODE: [id number] XR HAND 3 + V [place] [address] <Continued> Orig Print D/T: S: 07/09/2021 (9151) PAGE 2 Signed ReportSURGICAL [id number] 17:11:00 Test Item Value Reference Range Interpretation Comments SURGICAL SPECIMENS (test code = SURG) RUN DATE: 05/03/21 [facility] - LAB PAGE 1 RUN TIME: 6881 Specimen Inquiry RUN USER: INTERFACE PATIENT: ROSY MAGUIRE LOC: [place] U #: [id number] AGE/SX: 50/M ROOM: RE04/30/[facility] DR: Saroj Coates MD (GEN JUSTO : [birth year] BED: DIS: STATUS: DEP [facility] TLOC: SPEC #: [id number] RECD: 04/30/21 STATUS: LORIPatito FLOWER #: [id number] BENEDICTO: 04/30/[address] [facility] [address]: Saroj Coates MD (GEN SURG) ENTERED: 04/30/21 SP TYPE: SURG OTHR DR: Nirav Braun MD ORDERED: 69992, PATH SPEC, H E STAIN HISTOLOGY: TISSUE ID BLK PCS GHADA LEV / PROCEDURE DISPOSITION ____ ___ ___ ___ ___ PILONIDAL CYST A 1 1 TISSUES: A. PILONIDAL CYST - Pilonidal Cyst CLINICAL HISTORY Pilonidal cyst/abscess. FINAL DIAGNOSIS PILONIDAL CYST, EXCISION: - SKIN WITH SINUS TRACT LINED BY INFLAMED GRANULATION TISSUE, CONSISTENT WITH PILONIDAL CYST CPT 21263 GROSS DESCRIPTION Received in formalin labeled with the patient's name and "pilonidal cyst/abscess" are two irregularly-shaped fragments of skin and underlying soft tissue, upon reapproximation measuring 4.0 x 3.5 x 3.0 cm. The skin (3.0 x 1.0 cm) is grossly unremarkable sandoval-coker. The cut surface shows an abscess cavity, 1.2 cm in diameter. [employer] Administrator sections are submitted in one cassette. CM/ph MICROSCOPIC DESCRIPTION PERFORMED -- Signed SIGNATURE ON FILE Mel Cleaning MD 05/03/21 2001 END OF REPORT BASIC METABOLIC [id number] 07:30:00 Test Item Value Reference Range Interpretation [...] rate . CREATININE (test 13.60 mg/dL 0.70-1.30 HH Critical Va lue code = CREAT) reported Robb castillo Name:LALITA Last Name:VANNESSA BLACK READ BACK AND SHAYNA Steinberg.LAB.IX, on 04/30/21, @ 5625.Please not e: New Reference Range Dec 2020 CALCIUM (test code = 6.6 mg/dL 8.7-10.4 L Please note: New CA) Reference Range Dec 2020 COVID Asymptomatic IH [id number] 13:16:00 Test Item Value Reference Interpretation Comments [...] performancechar acteristics were determined by [facility]. Thi s test has notbeen [...] setting? Unknown? NoAge at collection: YBASIC METABOLIC [id number] 12:02:00 Test Item Value Reference Range Interpretation [...] . CREATININE (test 13.80 mg/dL 0.70-1.30 Critical Va lue code = CREAT) reported toFir st Name:SALLY Last Name:DOMI JONES READ BACK AND VERIFIEDby BEBETO ZAMBRANO, on 04/27/21, @ 1202.Please not e: New Reference Range Dec 2020 CALCIUM (test code = 6.3 mg/dL 8.7-10.4 L Please note: New CA) Reference Range Dec 2020 BASIC METABOLIC [id number] 11:50:00 Test Item Value Reference Range Interpretation [...] CA) Reference Range Dec 2020 CBC W/AUTO [id number] 11:25:00 Test Item Value Reference Range Interpretation [...] = BA#) 0.05 x10 3/uL 0.0-0.20 N [id number] 14:50:00 Test Item Value Reference Range Interpretation Comments GLUBED (test code = GLUBED) 109 MG/DL 70-105 H [id number] 08:36:00 Test Item Value Reference Range Interpretation Comments POTASSIUM (test code = K) 4.9 mmol/L 3.5-5.1 N COVID Asymptomatic IH [id number] 10:58:00 Test Item Value Reference Interpretation Comments [...] i ts performancechar acteristics were determined by [facility]. Thi s test has notbeen FDA kyleigh [...] setting? Unknown? NoAge at collection: YBASIC METABOLIC [id number] 12:16:00 Test Item Value Reference Range Interpretation [...] . CREATININE (test 14.50 mg/dL 0.70-1.30 Critical Va lue code = CREAT) [facility]ILANA Mackey Name:TONYHuong Blake READ BACK AND VERIFIEDby BEBETO ZAMBRANO, on 03/29/21, @ 8495.Please not e: New Reference Range Dec 2020 CALCIUM (test code = mg/dL 8.7-10.4 CA) BASIC METABOLIC [id number] 12:16:00 Test Item Value Reference Range Interpretation [...] . CREATININE (test 14.50 mg/dL 0.70-1.30 Critical Va lue code = CREAT) reported toFir st Name:ILANA Mackey Name:LAZARO DELFINA READ BACK AND VERIFIEDby BEBETO ZAMBRANO, on 03/29/21, @ 7016.Please not e: New Reference Range Dec 2020 CALCIUM (test code = 6.8 mg/dL 8.7-10.4 L Please note: New CA) Reference Range Dec 2020 CBC W/AUTO [id number] 11:54:00 Test Item Value Reference Range Interpretation [...] 0.0-0.20 N - CT ABD PELVIS W/O [id number] 16:57:00 [facility] : 1970 Sex: M Name: ROSY MAGUIRE [facility] : 1969 Age/S: 50 / M [address] [place] [address] Bl Unit #: [id number] Loc: [place] [address] Phys: Beth Frankel MD Acct: [id number] Dis Date: Status: REG CLI PHONE #: [phone] Exam Date: 02/08/2021 1617 FAX #: [phone] Reason: T85.691A, MALFUNCTION OF PD CATHETER. EXAMS: CPT CODE: [id number] CT ABD PELVIS W/O CONT 03466 CT abdomen and pelvis without contrast dated [...] 1 Signed Report (CONTINUED) Name: ROSY MAGUIRE [facility] : 1970 Age/S: 50 / M [address] [place], [place] [address]vd Unit #: [id number] Loc: [place] [address] Phys: Beth Frankel MD Acct: [id number] Dis Date: Status: REG CLI PHONE #: [phone] Exam Date: 02/08/2021 1617 FAX #: [phone] Reason: T85.691A, MALFUNCTION OF PD CATHETER. EXAMS: CPT CODE: [id number] CT ABD PELVIS W/O CONT 89156 <Continued> retroperitoneal mass or adenopathy. PELVIS: Bladder [...] Technologist:RT Lupe(R) CTDI: DLP: Trnscb Date/Time: 02/08/2021 (5444) LeslieM Orig Print D/T: S: 02/08/2021 (9170) PAGE 2 Signed ReportGLUBED 2020-11-30 16:25:00 Test Item Value Reference Range Interpretation Comments GLUBED (test code = 108 MG/DL 70-110 N Performe d by certified GLUBED) 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 [facility] BASIC METABOLIC [id number] 13:08:00 Test Item Value Reference Range Interpretation [...] code = 8.4 mg/dL 8.0-10.5 N CA) [id number] 13:01:00 Test Item Value Reference Range Interpretation Comments GLUBED (test code = 66 MG/DL 70-110 L Performe d by certified GLUBED) 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 [facility] CBC W/AUTO [id number] 12:58:00 Test Item Value Reference Range Interpretation [...] (test code NO = MDIFF) CBC W/AUTO [id number] 12:55:00 Test Item Value Reference Range Interpretation [...] REQUIRED (test code = MDIFF) Novel Coronavirus 2019 [id number] 06:55:00 Test Item Value Reference Range Interpretation [...] for the identification of SARS-CoV-2 RNA usingthe bettercodes.org000 Sy stem under the FDA Emergen cy UseAuthorizatio n. The testing is perf ormed by bladimir armstrong in the procedures for the VeliQ M2000 molecular diagnostic SARS-CoV-2 assa y in vitro. BASIC METABOLIC [id number] 12:58:00 Test Item Value Reference Range Interpretation [...] = 9.2 mg/dL 8.0-10.5 N CA) PROTHROMBIN [id number] 12:47:00 Test Item Value Reference Range Interpretation [...] o prevent recurre nt infarct). THROMBOPLASTIN TIME [id number] 12:47:00 Test Item Value Reference Range Interpretation Comments THROMBOPLASTIN TIME 36.5 Seconds 25.0-39.5 N Ther apeutic PARTIAL (test code = Range: 50.4 - 88.3 PTT) Seconds Effective 02/19/2019 CBC W/AUTO [id number] 12:35:00 Test Item Value Reference Range Interpretation [...] code NO = MDIFF) - XR ABDOMEN [id number] 15:08:00 [facility] : 1970 Sex: M FAX: Nirav Cohen MD [place]: St: PRE FAX: Kelly Correia MD [phone] Name: PRESLEYCESARROSY [facility] : 1970 Age/S: 50/M [address] [facility] Unit #: [id number] Loc: [place], [place]: [place] [address] Acct: [id number] Dis Date: Status: PRE CLI PHONE #: [phone] Exam Date: 11/26/20201455 FAX #: [phone] Reason: PERITONEAL DILAYSIS CATHETER DYSFUNCTION EXAMS: CPT CODE: [id number] XR ABDOMEN 2V 56716 Location code: H5 Abdomen Two Views Indication: [...] 1 Signed Report (CONTINUED) FAX:Nirav Cohen MD [place]: St: PRE FAX: Beth Correia MD Name: ROSY MAGUIRE [facility] : 1970 Age/S: 50/M [address] [facility] Unit #: [id number] Loc: E[place], [place]: [place] [address] Acct: [id number] Dis Date: Status: PRE CLI PHONE #: [phone] Exam Date: 11/26/20201455 FAX #: [phone] Reason: PERITONEAL DILAYSIS CATHETER DYSFUNCTION EXAMS: CPT CODE: [id number] XR ABDOMEN 2V 49460 <Continued> CC: Nirav Braun MD; Beth Frankel MD Technologist: SOHAIL BERNARD Trnscrd Date/Time/By: 11/26/2020 (5441) : By: Tracy PAGE 2 Signed Report FAX: Nirav Cohen MD [place]: St: PRE FAX: Beth Correia MD [phone] - Name: ROSY MAGUIRE [facility] : 1970 Age/S: 50/M [address] [facility] Unit #: [id number] [place]: [place], [place] [address] Acct: [id number] Dis Date: Status: PRE CLI PHONE #: [phone] Exam Date: 11/26/2020 1456 FAX #: [phone] Reason: PERITONEAL DILAYSIS CATHETER DYSFUNCTION EXAMS: CPT CODE: [id number] ABDOMEN 2V 18366 <Continued> Orig Print D/T: S: 0 11/26/2020 (1735) PAGE 3 Signed Report- XR ABDOMEN 1 [id number] 14:29:00 [facility] : 1970 Sex: M FAX: Nirav Cohen MD [place]: St: REG Name: ROSY MAGUIRE [facility] : 1970 Age/S: 50/M [address] [employer] Unit #: [id number] Loc: [place], [place] Phys: EDDOC, GENERIC FOR ED [address] Acct: [id number] Dis Date: Status: REG CLI PHONE #: [phone] Exam Date: 11/13/2020 1352 FAX #: [phone] Reason: PD CATH MALFUNCTION EXAMS: CPT CODE: [id number] XR ABDOMEN 1 V 66703 EXAM: ABDOMEN ONE VIEW INDICATION: PDCATH MALFUNCTION [...] pelvis. There is a possible kink. at 8299 Reported and signed by: Donna Mullins M.D. CC: Nirav Braun MD Technologist: ANA BARRETO Trnscrd Date/Time/By: 11/13/2020 (0678) : By: 16 PAGE 1 Signed Report FAX: Nirav Cohen MD [place]: St: REG-- Name: ROSY MAGUIRE [facility] : 1970 Age/S: 50/M [address] [employer] Unit #: [id number] Loc: [place], [place] Phys: EDDOC, GENERIC FOR EDM [address] Acct: [id number] Dis Date: Status: REG CLI PHONE #: [phone] Exam Date: 11/13/2020 1352 FAX #: [phone] Reason: PD CATH MALFUNCTION EXAMS: CPT CODE: [id number] XR ABDOMEN 1 V 28489 <Continued> Orig Print D/T: S: 11/13/2020 (6044) PAGE 2 Signed [id number] 08:30:00 Test Item Value Reference Range Interpretation [...] may amelia y by method. BASIC METABOLIC [id number] 17:02:00 Test Item Value Reference Range Interpretation [...] code = 8.5 mg/dL 8.0-10.5 N CA) [id number] 17:02:00 Test Item Value Reference Range Interpretation [...] y by method. - XR CHEST 1 [id number] 16:17:00 [facility] : 1970 Sex: M FAX: Tray Donald [phone] [place]: St: ADM FAX: Nirav Zamudio am, MD Name: ROSY MAGUIRE [facility] : 1970 Age/S: 50/M [address] [place] [address] Unit #: [id number] Loc: G.[address] [place] [address] Phys: DOES_NOT KNOW Acct: [id number] Dis Date: Status: ADM IN PHONE #: [phone] Exam Date: 10/26/2020 1616 FAX #: [phone] Reason: PAIN EXAMS: CPT CODE: [id number] XR CHEST 1 V 90244FQ CHEST 1 VIEW HISTORY: PAIN. COMPARISON: CXR [...] CC: Tray Linder MD; Nirav Braun Technologist: RT Peter(R) Trnscrd Date/Time/By: 10/26/2020 (903) : By: [email or web address] Orig Print D/T: S: 10/26/2020 (4189) PAGE 1 Signed Report- US ABDOMEN [id number] 14:11:00 [facility] : 1970 Sex: M Name: ROSY MAGUIRE [facility] : 1969 Age/S: 50 / M [address] [place] [address] Blvd Unit #: [id number] Loc: [place] [address] Phys: Harpal Zamarripa MD Acct: [id number] Dis Date: Status: ADM IN PHONE #: [phone] Exam Date: 10/26/2020 1157 FAX #: [phone] Reason: POSSIBLE PERTITONEAL FLUID INFECTION, RULE OUT. EXAMS: CPT CODE: [id number] US ABDOMEN LTD 64232 CLINICAL HISTORY: Possible peritoneal fluid infection,. Do [...] Technologist: Shira Fraire RDMS(AB) Trnscb Date/Time: 10/26/2020 (1410) tKYLIEYOS Orig Print D/T: S: 10/26/2020 (1414) Probe: PAGE 1 Signed ReportPROTHROMBIN [id number] 13:56:00 Test Item Value Reference Range Interpretation [...] o prevent recurre nt infarct). THROMBOPLASTIN TIME [id number] 13:56:00 Test Item Value Reference Range Interpretation Comments THROMBOPLASTIN TIME PARTIAL (test Seconds 25.0-39.5 code = PTT) PROTHROMBIN [id number] 13:56:00 Test Item Value Reference Range Interpretation [...] o prevent recurre nt infarct). THROMBOPLASTIN TIME [id number] 13:56:00 Test Item Value Reference Range Interpretation Comments THROMBOPLASTIN TIME 33.8 Seconds 25.0-39.5 N Ther apeutic PARTIAL (test code = Range: 50.4 - 88.3 PTT) Seconds Effective 02/19/2019 BASIC METABOLIC [id number] 08:02:00 Test Item Value Reference Range Interpretation [...] 8.0-10.5 N CA) - XR CHEST 2 [id number] 17:16:00 [facility] ROSY MAGUIRE : 1970 Sex: M FAX: Tray Donald [phone] [place]: St: ADM FAX: Nirav Zamudio am, MD FAX: Antonino Huff MD [phone] Name: ROSY MAGUIRE [facility] [place] : 1970 Age/S: 50/M [address] [place] [address] Blvd Unit #: [id number] Loc: G[address] [place] [address] Phys: Antonino Huff MD Acct: [id number] Dis Date: Status: ADM IN PHONE #: [phone] Exam Date: FAX #: [phone] Reason: ? opacity EXAMS: CPT CODE: [id number] XR CHEST 2 V 90596 Chest, 2 views dated 10/25/2020. HISTORY: ? [...] MD Technologist: RT Peter(Toney) Trnscrd Date/Time/By: 10/25/2020 (1716) : By: Castro Orig Print D/T: S: 10/25/2020 (172) PAGE 1 Signed ReportAG HEPATITIS B [id number] 16:37:00 Test Item Value Reference Range Interpretation Comments AG HEPATITIS B SURFACE NON REACTIVE INDEX NonReactive (test code = HBSAG) - XR SHOULDER 2 + V [id number] 13:12:00 [facility] : 1970 Sex: M FAX: Tray Donald [phone] [place]: St: [facility] FAX: Nirav Zamudio am, MD FAX: Antonino Huff MD [phone] Name: ROSY MAGUIRE [facility] : 1970 Age/S: 50/M [address] [place] [address] Unit #: [id number] Loc: G.[address] [place] [address] Phys: Antonino Huff MD Acct: [id number] Dis Date: Status: ADM IN PHONE #: [phone] Exam Date: FAX #: [phone] Reason: Left shoulder region pain EXAMS: CPT CODE: [id number] XR SHOULDER 2 + VLT 94959 PROCEDURE: Left Shoulder Radiographs. Clinical Indication: Left [...] Nirav Braun; Antonino Huff MD Technologist: RT Peter(R) Trnscrd Date/Time/By: 10/25/2020 (2135) : By: Ryne Orig Print D/T: S: 10/25/2020 (7167) PAGE 1 Signed ReportCOVID 19 Asymptomatic IH [id number] 01:04:00 Test Item Value Reference Range Interpretation [...] COMMENTS: If not done this admissionC REACTIVE [id number] 23:38:00 Test Item Value Reference Range Interpretation Comments C REACTIVE PROTEIN (test code = 19.0 mg/L <10.0 H CRP) CBC W/AUTO [id number] 22:45:00 Test Item Value Reference Range Interpretation [...] REQUIRED (test code NO = MDIFF) LACTIC [id number] 22:35:00 Test Item Value Reference Range Interpretation Comments LACTIC ACID (test code = LACT) 0.9 mmol/L 0.4-1.9 N Coronavirus 2019 nCoV [id number] 20:19:00 Test Item Value Reference Range Interpretation Comments Coronavirus 2019 Negative NEGATIVE Negative re sults should be nCoV Bedside (test treated a s presumptive and code = ifinconsistent with [id number]) clinical signs and symptoms, or ne cessaryfor patient managem ent, should be tested with an alternativemole cular assay. Negative result s do not preclude BTFA-GpJ-7tbqbd tion and should not be u sed as the sole basis forp atient management deci sions. Negative result s should beconsidered in the context of a patient's recent exposures,histo ry, presence of clinical sig ns and symptoms consis tentwith COVID-19. BASIC METABOLIC [id number] 18:28:00 Test Item Value Reference Range Interpretation [...] L Specimen comments: Clean CatchHEPATIC FUNCTION PANEL [id number] 18:28:00 Test Item Value Reference Range Interpretation [...] N code = ALKP) Specimen comments: Clean [id number] 18:28:00 Test Item Value Reference Range Interpretation Comments LIPASE (test code = LIP) 135 Units/L 65.0-230.0 N Specimen comments: Clean [id number] 18:28:00 Test Item Value Reference Range Interpretation Comments TROPONIN-I (test 0.02 NG/ML 0.00-0.06 N REFERENCE R UDAY TROPONIN code = TROPI) I HEALTHY KEYA VIDUALS: <0.06 ng/mL R/O ISCHEMIA: 0.07 - 0.60 ng/mL CUT-OFF R UDAY FOR AMI: 0.60 - 1. 5 ng/mL Specimen comments: Clean Catch- CT ABD PELVIS W/O [id number] 18:26:00 [facility] : 1970 Sex: M FAX: Nirav Cohen MD [place]: St: REG FAX: Mallory Gan MD [phone] Name: ROSY MAGUIRE [facility] : 1970 Age/S: 50/M [address] [facility] Unit: [id number] Loc: [address] [place]: [place] [address] Acct: [id number] Dis Date: Status: REG ER PHONE #: [phone] Exam Date: 10/24/2020 1803 FAX #: [phone] Reason : abd pain, recent hernia repair and perit dialys EXAMS: CPT CODE: [id number] CT ABD PELVIS W/O CONT [address]11 CT ABDOMEN AND PELVIS W/O CONTRAST Location [...] Signed Report (CONTINUED) FAX: Nirav Cohen MD [place]: St: REGFAX: Mallory Gan MD [phone] Name: ROSY MAGUIRE [facility] : 1970 Age/S: 50/M [address] [facility] Unit: [id number] Loc : [address] Phys: [place] [address] Acct: [id number] Dis Date: Status: REG ER PHONE #: [phone] Exam Date: 10/24/2020 180 FAX #: [phone] Reason: abd pain, recent hernia repair and perit dialys EXAMS: CPT CODE: [id number] CT ABD PELVIS W/O CONT 08997 <Continued> 2. Peritoneal dialysis catheter is in good position. Atrophic kidneys. 3. Mildly elevated left hemidiaphragm and bibasilar atelectasis. at 1826 Reported and signed by: Francisco Pack M.D. CC: Nirav Braun MD; Mallory Gan MD Technologist: EDGAR MC; GRISELDA CHACON Trnscrd Dt/Tm: 10/24/2020 (1825)tKYLIERK5 Orig Print D/T: S: 10/24/2020 (1829 PAGE 2 Signed ReportBASIC METABOLIC [id number] 18:19:00 Test Item Value Reference Range Interpretation [...] 8.0-10.5 Specimen comments: Clean CatchHEPATIC FUNCTION PANEL [id number] 18:19:00 Test Item Value Reference Range Interpretation [...] 50.0-136.0 code = ALKP) Specimen comments: Clean [id number] 18:19:00 Test Item Value Reference Range Interpretation Comments LIPASE (test code = LIP) Units/L 65.0-230.0 Specimen comments: Clean [id number] 18:19:00 Test Item Value Reference Range Interpretation Comments TROPONIN-I (test code = TROPI) NG/ML 0.00-0.06 Specimen comments: Clean Catch- XR CHEST 1 [id number] 18:14:00 [facility] : 1970 Sex: M FAX: Nirav Cohen MD [place]: St: REG FAX: Mallory Gan MD [phone] Name: ROSY MAGUIRE [facility] : 1970 Age/S: 50/M [address] [facility] Unit #: [id number] Loc: [address] Phys: [place] [address] Acct: [id number] Dis Date: Status: REG ER PHONE #: [phone] Exam Date: 10/24/2020 181 FAX #: [phone] Reason: Abdominal Pain EXAMS: CPT CODE: [id number] XR CHEST 1 V 89969 Site ID: [id number] HISTORY: Abdominal pain, bleeding at peritoneal dialysis catheter site COMPARISON: 3 days ago FINDINGS: No acute pulmonary infiltrate. Stable elevated left hemidiaphragm and left basilar atelectasis. The heart and pulmonary vasculature is normal. Osseous structures are unremarkable. IMPRESSION: Negative chest X-ray. at 1814 Reported and signed by: Addsion Berg M.D. CC: Nirav Braun MD; Mallory Gan MD Technologist: ARELY Silvascrd Date/Time/By: 10/24/2020 (1813) : By: MartinAJP6 PAGE 1 Signed Report FAX: Nirav Cohen MD [place]: St: REG FAX: Mallory Gan MD [phone] Name: ROSY MAGUIRE [facility] : 1970 Age/S: 50/M [address] [facility] Unit #: [id number] Loc: [address] Phys: [place]ory [place] [address] Acct: [id number] Dis Date: Status: REG ER PHONE #: [phone] Exam Date: 10/24/20201810 FAX #: [phone] Reason: Abdominal Pain EXAMS: CPT CODE: [id number] XR CHEST 1 V 80840 <Continued> Orig Print D/T: S: 10/24/2020 (1816) PAGE 2 Signed ReportPROTHROMBIN [id number] 18:10:00 Test Item Value Reference Range Interpretation Comments PROTHROMBIN TIME 11.4 SECONDS 9.9-12.8 N PATIENT (test code = PTP) INTERNATIONAL NORMAL 1.0 0.89-1.14 N THE INR IS TO BE USED RATIO (test code = ONLY FOR MONITORING INR) ORAL ANTICOAGULANTTH ERAPY. THE FOLLOWING A RE SUGGESTED RANGE S FROM [facility] LEGE OF CHEST PHYSICIANS:[place] INR VALUEPROPHYLAXI S OF VENOUS THROMBOS IS (ORTHOPEDIC JUSTO BERNARD) 2.0 - 3.0PROP HYLAXIS OF VENOUS THROM BOSIS (OTHER THAN HIG H-RISK SURGERY) 2.0 - 3.0TRE ATMENT OF DEEP VEIN THROMBOSIS OR PULMONARY EMBOL ISM 2.0 - 3.0PREV ENTION OF SYSTEMIC EMB OLISM TISSUE HEART VA LVES 2.0 - 3.0 AC NATASHA MYOCARDIAL INFA RCTION (TO PREVENT SYSTEMIC EMBOLI [...] Clean CatchIs patient on anticoagulants? 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 [facility] CBC W/AUTO [id number] 08:29:00 Test Item Value Reference Range Interpretation [...] (test code NO = MDIFF) BASIC METABOLIC [id number] 08:17:00 Test Item Value Reference Range Interpretation [...] code = 8.5 mg/dL 8.0-10.5 N CA) [id number] 08:04:00 Test Item Value Reference Range Interpretation Comments GLUBED (test code = 94 MG/DL 70-110 N Performe d by certified 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) 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 [facility] - XR T-SPINE [id number] 18:08:00 [facility] : 1970 Sex: M FAX: Mery Crane MD [phone] [place]: St: ADM FAX: Seymour Dunham [phone] FAX: Nirav Cohen MD FAX: Beth Correia MD [phone] Name: ROSY MAGUIRE [facility] : 1970 Age/S: 50/M [address] [place] [address] Blvd Unit #: [id number] Loc: G.[address] [place] [address] Phys: Seymour Osman PA-C Acct: [id number] Dis Date: Status: ADM IN PHONE#: [phone] Exam Date: 10/21/2020 1741 FAX #: [phone] Reason: point tenderness around T7-T8 after fall-back h EXAMS: CPT CODE: [id number] XR T-SPINE 3V 68305 P rocedure: Thoracic Spine Radiographs. 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 [facility] - XR ABDOMEN 1V (KUB)2020-10-21 17:46:00 [facility] : 1970 Sex: M FAX: Estiven Call MD [phone] [place]: St: ADM FAX: Mery Toledo MD [phone] FAX: Nirav Cohen MD FAX: Beth Correia MD [phone] Name: ROSY MAGUIRE [facility] : 1970 Age/S: 50/M [address] [place] [address] Unit #: [id number] Loc: [address] [address] Phys: Estiven Call MD Acct: [id number] Dis Date: Status: ADM IN PHONE#: [phone] Exam Date: 10/21/2020 1741 FAX #: [phone] Reason: n/v, abdominal pain EXAMS: CPT CODE: [id number] XR ABDOMEN 1V KUH) 05536 Procedure: Abdominal Radiograph. Clinical Indication: Nausea and vomiting, abdominal pain, malfunction of peritoneal dialysis catheter. Comparison: Abdominal qmgqlgwobv79/2/2017. FINDINGS: A supine radiograph of the abdomen [...] coiled in the pelvis. SL: OCO-H at 700 Reported and signed by: Clayton Vasquez M.D. 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 [facility] - XR CHEST 1 [id number] 17:06:00 [facility] PRESLEY ROS[facility] : 1970 Sex: M FAX: Estiven Call MD [phone] [place]: St: [facility] FAX: Mery Toledo MD [phone] FAX: Nirav Cohen MD FAX: Beth Correia MD [phone] Name: PRESLEYROSY [facility] : 1970 Age/S: 50/M [address] [place] [address] Unit #: [id number] Loc: G.[address] [place] [address] Phys: Estiven Call MD Acct: [id number] Dis Date: Status: ADM IN PHONE#: [phone] Exam Date: 10/21/2020 1659 FAX #: [phone] Reason: recent fall left sided rib hurting EXAMS: CPT CODE: [id number] XR CHEST 1 V 72526 Chest, single view dated 10/21/2020. 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 BASIC METABOLIC [id number] 08:02:00 Test Item Value Reference Range Interpretation [...] code = 8.2 mg/dL 8.0-10.5 N CA) [id number] 08:02:00 Test Item Value Reference Range Interpretation Comments PHOSPHOROUS (test code = PHOS) 8.0 MG/DL 2.5-4.9 H [id number] 08:02:00 Test Item Value Reference Range Interpretation Comments MAGNESIUM (test code = MAG) 2.26 mg/dL 1.80-2.40 N CBC W/AUTO [id number] 06:59:00 Test Item Value Reference Range Interpretation [...] DIFF REQUIRED (test code NO = MDIFF) [id number] 21:48:00 Test Item Value Reference Range Interpretation Comments GLUBED (test code = 140 MG/DL 70-110 H Performe d by certified GLUBED) 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 [facility] TSH REFLEX TO [id number] 17:15:00 Test Item Value Reference Range Interpretation Comments TSH REFLEX TO FT4 (test code = 1.59 IU/mL 0.42-5.47 N TSHREFLEX) HGBA1C%2020-10-20 17:06:00 Test Item Value Reference Range Interpretation Comments HGBA1C% (test code = HGBA1C%) 5.2 %A1C 4.8-6.0 N [id number] 16:37:00 Test Item Value Reference Range Interpretation Comments GLUBED (test code = 144 MG/DL 70-110 H Performe d by certified GLUBED) 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 [facility] [id number] 11:31:00 Test Item Value Reference Range Interpretation Comments GLUBED (test code = 128 MG/DL 70-110 H Performe d by certified GLUBED) 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 [facility] CBC W/AUTO [id number] 08:46:00 Test Item Value Reference Range Interpretation [...] (test code NO = MDIFF) BASIC METABOLIC [id number] 08:07:00 Test Item Value Reference Range Interpretation [...] code = 8.7 mg/dL 8.0-10.5 N CA) [id number] 07:46:00 Test Item Value Reference Range Interpretation Comments GLUBED (test code = 114 MG/DL 70-110 H Performe d by certified GLUBED) 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 The testing is perf ormed by bladimir armstrong in the procedures for the VeliQ M2000 molecular diagnostic SARS-CoV-2 akash islas in vitro. COMMENTS: N- XR CHEST 2 [id number] 10:50:00 [facility] : 1970 Sex: M FAX: Nirav Cohen MD [place]: St: PRE FAX: Beth Correia MD [phone] FAX: Tamika Hadley N Name: ROSY MAGUIRE [facility] : 1970 Age/S: 50/M [address] [place] [address] Unit #: [id number] Loc: [place] [address] Phys: Tamika Hadley HAND II BLOCKER Acct: [id number] Dis Date: Status: PRE [facility] PHONE #: [phone] Exam Date: FAX #: [phone] Reason: PRE- OP HERNIA REPAIR EXAMS: CPT CODE: [id number] XR CHEST 2 V 52904 EXAM: CHEST TWO VIEW HISTORY: 50-year-old male for preoperative evaluation, hernia repair COMPARISON: Chest radiograph 09/07/2017 FINDINGS: Elevated left hemidiaphragm. The lungs are clear. The cardiomediastinal silhouette is normal for projection. Aortic locations. No acute osseous abnormality.Cervical spinal hardware partially visualized. IMPRESSION: 1. No acute cardiopulmonary abnormality. SL: [id number] at 1050 Reported and signed by: Lucia Montano M.D. CC: Nirav Braun; Beth Frankel MD; Tamika Hadley NP Technologist: RT Jarrod(R) Trnscrd Date/Time/By: 10/16/2020 (1050) : By: [email or web address] Orig Print D/T: S: 10/16/2020 (3978) PAGE 1 Signed ReportCBC W/AUTO [id number] 10:39:00 Test Item Value Reference Range Interpretation [...] REQUIRED (test code NO = MDIFF) PLT [id number] 10:39:00 Test Item Value Reference Range Interpretation Comments PLATELET ESTIMATE (test code 100-125 THOUSAND ADEQUATE = PLTEST) PLATELET MORPHOLOGY (test LARGE PLATELETS code = PLTMORPH) BASIC METABOLIC [id number] 10:19:00 Test Item Value Reference Range Interpretation [...] 8.4 mg/dL 8.0-10.5 N CA) CBC W/AUTO [id number] 09:57:00 Test Item Value Reference Range Interpretation [...] REQUIRED (test code NO = MDIFF) PLT [id number] 09:57:00 Test Item Value Reference Range Interpretation Comments PLATELET ESTIMATE (test code = THOUSAND ADEQUATE PLTEST) CBC W/AUTO [id number] 09:56:00 Test Item Value Reference Range Interpretation [...] REQUIRED (test code NO = MDIFF) PLT [id number] 09:56:00 Test Item Value Reference Range Interpretation Comments PLATELET ESTIMATE (test code = THOUSAND ADEQUATE PLTEST) CBC W/AUTO [id number] 09:49:00 Test Item Value Reference Range Interpretation [...] REQUIRED (test code = MDIFF) BASIC METABOLIC [id number] 12:52:00 Test Item Value Reference Range Interpretation [...] 8.3 mg/dl 8.0-10.5 N CA) CBC W/AUTO [id number] 12:42:00 Test Item Value Reference Range Interpretation [...] N NRBC#) - CT ABD PELVIS W/O [id number] 08:55:00 [facility] : 1970 Sex: M FAX: Nirav Cohen MD [place]: St: [facility] FAX: Jeremy Correia MD [phone] Name: ROSY MAGUIRE [facility] : 1970 Age/S: 50/M [address] [facility] Unit: [id number] Loc: [place], [place]: [place] [id number] Acct: [id number] Dis Date: Status: REG CLI PHONE #: [phone] Exam Date: 09/29/2020 0834 FAX #: [phone] Reason : RIGHT GROIN PAIN EXAMS: CPT CODE: [id number] CT ABD PELVIS W/O CONT 94172 HI STORY: Right inguinal pain, right lower [...] Signed Report (CONTINUED) FAX: Nirav Cohen MD [place]: St: REG FAX: Beth Correia MD [phone] Name: PRESLEYROSY [facility] : 1970 Age/S: 50/M [address] [facility] Unit: [id number] Loc: [place], [place]: [place] [address] Acct: [id number] Dis Date: Status: REG CLI PHONE #: [phone] Exam Date: 09/29/2020 0834 FAX #: [phone] Re ason: RIGHT GROIN PAIN EXAMS: CPT CODE: [id number] CT ABD PELVIS W/O CONT 06843 <Continued> IMPRESSION: Limited Study. Normal appendix seen [...] MD Technologist: LISA WATKINS Trnscrd Dt/Tm: 09/29/2020 (0855) t.[email or web address].[email or web address] Orig Print D/T: S: 09/29/2020 (6758 PAGE 2 Signed ReportBASIC METABOLIC PANEL 2020-09-17 [...] CA) 8.1 mg/dl 8.0-10.5 N CBC W/AUTO [id number] 06:29:00 Test Item Value Reference Range Interpretation [...] 0.00-0.01 N NRBC#) COVID 19 Asymptomatic IH [id number] 05:55:00 Test Item Value Reference Range Interpretation Comments COVID 19 NEGATIVE NEGATIVE Negative result s should be Asymptomatic IH AG treated a s presumptive and (test code = ifinconsistent with COVNONPUIAG) clinical signs and symptoms, or ne cessaryfor patient managem ent, should be tested with an alternativemole cular assay. Negative results do not preclude YIAL-AvQ-3zbgyo tion and should not be u sed as the sole basis forp atient management deci sions. Negative result s should beconsidered in the context of a pa tient's recent exposure s,history, presence of cli nical signs and symptoms consistentwith COVID-19. LACTIC [id number] 09:23:00 Test Item Value Reference Range Interpretation Comments LACTIC ACID (test code = LACT) 1.0 MMOL/L 0.4-2.0 N BASIC METABOLIC [id number] 09:11:00 Test Item Value Reference Range Interpretation [...] 8.2 mg/dl 8.0-10.5 N CA) CBC W/AUTO [id number] 09:06:00 Test Item Value Reference Range Interpretation [...] 0.00 X10 3uL 0.00-0.01 N NRBC#) SURGICAL [id number] 14:26:00 RUN DATE: 02/21/20 [facility] - LAB PAGE 1 RUN TIME: 1427 Specimen Inquiry RUN USER: INTERFACE PATIENT: ROSY MAGUIRE LOC: [facility] U #: [id number] AGE/SX: 49/M ROOM: RE02/20/20[facility] DR: Saroj Coates MD : [birth year] BED: DIS: STATUS: [facility] TLOC: SPEC #: [id number] RECD: 02/20/20 STATUS: NEIL RELeonard #: [id number] BENEDICTO: 02/20/[address]: Saroj Coates MD ENTERED: 02/20/20 SP [...] approximately 1 x 1 x 1 cm. Vmware Administrator sections are submitted asfollows: SECTION CODE: CONTINUED ON NEXT PAGE RUN DATE: 02/21/20 [facility] - LAB PAGE 2 RUN TIME: 1427 Specimen Inquiry RUN USER: INTERFACE SPEC #: [id number] PATIENT: ROSY MAGUIRE #[id number] (Con tinued) GROSS DESCRIPTION (Continued) A1-A2: First described small area A3-A5: Larger second described nodule RAB/th MICROSCOPIC DESCRIPTION Microscopic performed. Signed SIGNATURE ON Rosemarie Robb MD 02/21/20 1426 END OF REPORT [id number] 13:17:00 Test Item Value Reference Range Interpretation Comments GLUBED (test code = GLUBED) 101 MG/DL 70-105 N BASIC METABOLIC [id number] 06:39:00 Test Item Value Reference Range Interpretation [...] HH Critic al Value = CREAT) reported toFsteven aponte Name:REVA Last Name:DAVID DE LA CRUZ READ BACK AND VERIFIEDby BEBETO BO, on 02/20/20, @ 0637. CALCIUM (test code = 8.8 mg/dL 8.8-10.2 N CA) CBC W/AUTO [id number] 06:35:00 Test Item Value Reference Range Interpretation [...] BA#) 0.05 x10 3/uL 0.0-0.20 N SPECIAL [id number] 17:02:005[facility]Y 2018-07-12 17:02:005.8[facility]SPE[facility] ACLTJGUQS3845-68-46 17:02:005.8 [facility] RXGUSEWIL4118-53-54 17:02:005.8[facility] USHOGRYMUKJJ3336-57-29 16:58:0010.2[facility] VtzebmeJFOGHRUHEXWS5009-83-02 16:58:0019[facility] SqfbbhkNFRIONUPVGBE3745-67-43 16:58:008.0[facility] XJYWRBHYICTB1779-02-71 16:58:0026[facility] DosdjvhKRIQWRWYSLQA7035-39-80 16:58:00 3.53[facility] NozanzpELFEFVWZCDNU4602-54-12 16:58:0033[facility] PHOFLRSNXFOT0540-40-65 16:58:0086[facility] NcmotdvUGZPZUWHXGOZ2193-49-64 16:58:00 108[facility] MbxzlgmKXVJGDFDHJYU3522-63-67 16:58:95543Kcztfqwt Rob RSFCLDUSCXNK8162-54-89 16:58:005.2[facility] RercoziKJMMECEAHT0719-57-64 16:58:00 Test Item Value Reference Range Interpretation Comments PTT (test code = PTT) 34.8 s 22.9-35.8 [facility] EoarruuLZHOOAINUD2533-06-51 16:58:00 Test Item Value Reference Range Interpretation Comments INR (test code = INR) 0.94 1 0.85-1.17 [facility] AijhckdTXKFTDKFCN8557-47-69 16:58:00 Test Item Value Reference Range Interpretation Comments PT (test code = PT) 12.6 s 12.0-14.7 [facility] LqxlyphAEYDGWQWJI6484-49-17 16:58:23777Xzqfyulq HermannHEMATOLOGY 2018-07-12 16:58:007.6[facility] DpnkgprYGWEWEVDHZ6443-82-39 16:58:0037.0[facility] YqopkhnUMEFXIZYBG9171-12-14 16:58:00 Test Item Value Reference Range Interpretation Comments MCH (test code = MCH) 27.0 pg 27.0-31.0 [facility] AtybsdeXFKJGBKSRQ8977-83-46 16:58:0032.7[facility]annHEMATOLOGY 2018-07-12 16:58:0015.7[facility] NlgwmjqBSINCRWZYF1395-13-70 16:58:0082.5[facility] SkbprlxLNPFKMJKNZ4838-92-87 16:58:0012.1[facility] PfcwwnyASRFOQANHS5354-31-27 16:58:004.49[facility] MysrwwmDVBGGKNRAI9917-64-26 16:58:0010.7[facility] TVHKUJHECZ6676-21-76 16:58:000.6[facility] HjyhswcBMCYJAPXGR5666-58-46 16:58:004.6 [facility] NfjxmpbLKYNBCNQOG9505-41-99 16:58:007.0[facility]annHEMATOLOGY 2018-07-12 16:58:002.4[facility] MhqnexvINVROEYJJK2147-23-68 16:58:000.8[facility] JctabqcGZMERMUEAO3361-20-38 16:58:0022.5[facility] KdsipbgOLSGXQKOHG2885-84-26 16:58:007.2[facility] PxqqesyQXBBGDKOAP7060-16-23 16:58:000.5[facility] BBPOVRTZXB0992-30-08 16:58:000.1[facility] RsqvlllMUEUBVFENR3853-82-48 16:58:00 65.1[facility]annBL[facility] UXEOCFJ1068-27-52 16:58:00Negative (07/12/18 11:58 AM)[facility] NiplqabOWDTYYBLDCWQ4766-56-44 16:58:0010.2[facility] SANBRIBVEHPX9179-14-23 16:58:0019[facility] FvbpnsdDJPKKAALQEYG6941-09-54 16:58:00 8.0[facility] SuyfnnqQWDGIRUUQCUV5611-56-95 16:58:0026[facility]annELECTROLYTES 2018-07-12 16:58:003.53[facility] PlifzciZHULLLYFCPNU0480-11-42 16:58:0033[facility] AxiqajsRVGPULAKKMZS7213-53-68 16:58:0086[facility] NzgzkicENXOKEJWLRAV1732-69-12 16:58:70554Mojlphsp YsyflkdWJZMAHJEFILX3687-75-22 16:58:62717Xwmzjfzb [place] ILGDQMKBBHME3134-74-62 16:58:005.2[facility] XgwrckqHDVZBAADDK5723-79-67 16:58:00 Test Item Value Reference Range Interpretation Comments PTT (test code = PTT) 34.8 s 22.9-35.8 [facility] RlohgifQYDTMWRLPB3213-85-88 16:58:00 Test Item Value Reference Range Interpretation Comments INR (test code = INR) 0.94 1 0.85-1.17 [facility] HdwybhpYKTQWIGYHC9192-47-32 16:58:00 Test Item Value Reference Range Interpretation Comments PT (test code = PT) 12.6 s 12.0-14.7 [facility] JnngbmuXLFMZHBNOF4696-25-68 16:58:31487Cbkpdhuo HermannHEMATOLOGY 2018-07-12 16:58:007.6[facility] PeqtlmdYQXACFOIHI9251-60-96 16:58:0037.0[facility] KtpvoxrEGALDNAEQR4245-71-84 16:58:00 Test Item Value Reference Range Interpretation Comments MCH (test code = MCH) 27.0 pg 27.0-31.0 [facility] NwyyoakKXOFBWFKLR5368-48-93 16:58:0032.7[facility]annHEMATOLOGY 2018-07-12 16:58:0015.7[facility] ObihztxJVLJNEHHBK4457-24-33 16:58:0082.5[facility] JtrlvilIVGVWLRMOX1197-36-19 16:58:0012.1[facility] NrudoekSJULFCEZSY2245-44-04 16:58:004.49[facility] FcrzvfbXLSIMHCONS3870-54-76 16:58:0010.7[facility] FDKTPSMHQY5138-02-75 16:58:000.6[facility] IpcjlpyGFZKCKZNNQ4826-26-31 16:58:004.6 [facility] PwrryyoFPUDQLOWOQ2150-74-09 16:58:007.0[facility]annHEMATOLOGY 2018-07-12 16:58:002.4[facility] XqmrjynOOJTVVUCBF5755-72-30 16:58:000.8[facility] PkzqmxzJJJYPIZCOM7463-75-04 16:58:0022.5[facility] CmnfbevYYXYXYFGVN3743-53-48 16:58:007.2[facility] ZzlfoabAIKAXYGXHZ5381-13-67 16:58:000.5[facility] EJJZOAWUVA0239-86-96 16:58:000.1[facility] UsivxjrJILCYMABNB2977-45-26 16:58:00 65.1[facility]annBLOOD BANK FSZHCQD1565-67-72 16:58:00Negative (07/12/18 11:58 AM)[facility] TdljnfaRYIMXVLPHTQZ2710-64-90 16:58:0010.2[facility] YXZFRWCZBNVF4355-68-25 16:58:0019[facility] RtqsrxiRFIFBUGEAABJ1391-36-17 16:58:00 8.0[facility] CfnsbvoDERPEZIXYJWB1789-10-37 16:58:0026[facility] HermannELECTROLYTES 2018-07-12 16:58:003.53[facility] KbhdsvrAANFJVSCHFUI0680-03-28 16:58:0033[facility] ThmrvfkLRUBVIXMEQNR5541-69-88 16:58:0086Mem[facility] GkzxcfnUDCTUISUJYJL1889-89-73 16:58:96648Lzvioznd QctdnneHFGPZOGXIVTZ3086-58-06 16:58:49333Fskcmcsx Rob XQQXFMKYETXF7599-22-72 16:58:005.2[facility] VdzsdmbJOCYALQNPA5117-16-11 16:58:00 Test Item Value Reference Range Interpretation Comments PTT (test code = PTT) 34.8 s 22.9-35.8 [facility] ZomgqcqVGFFKCCLVG9820-63-46 16:58:00 Test Item Value Reference Range Interpretation Comments INR (test code = INR) 0.94 1 0.85-1.17 [facility] GqjxatvPGDLQYCAEL5908-44-68 16:58:00 Test Item Value Reference Range Interpretation Comments PT (test code = PT) 12.6 s 12.0-14.7 [facility] UuptrriTGCDOXIGGD8525-60-30 16:58:44971Zgikxoin HermannHEMATOLOGY 2018-07-12 16:58:007.6[facility] NkimieyTXEAALMVOE0324-68-00 16:58:0037.0[facility] XmiggyvOLEJWAPHXM4242-58-67 16:58:00 Test Item Value Reference Range Interpretation Comments MCH (test code = MCH) 27.0 pg 27.0-31.0 [facility] ViuokzdUIKNOBJHDO6773-22-37 16:58:0032.7[facility]annHEMATOLOGY 2018-07-12 16:58:0015.7[facility] BzifjdfHYWUSATXZR1330-58-27 16:58:0082.5[facility] BgnxtmoQMZRUGXCWA9774-77-88 16:58:0012.1[facility] DqmkpxfZIUSGEZSGG5542-62-53 16:58:004.49[facility] GuzumgiXQXRAHYPVL9876-86-45 16:58:0010.7[facility] QYYXGXCOJV3280-52-20 16:58:000.6[facility] XcmehxxEBVCVHCBDO0044-11-99 16:58:004.6 [facility] EizyaoiWPWJHNFIIC3472-02-88 16:58:007.0[facility]annHEMATOLOGY 2018-07-12 16:58:002.4[facility] FgxoaeoUWHFLUYPVS9642-91-82 16:58:000.8[facility] JzgetljZXFYFSTBIT5087-55-25 16:58:0022.5[facility] XdlchuoMTQMXICSEK5466-09-54 16:58:007.2[facility] MjrzawkVJVZYJIPKF5818-97-63 16:58:000.5[facility] CYVYOUOQQZ5232-63-91 16:58:000.1[facility] FkdftxnPFWVMGKULI8748-59-25 16:58:00 65.1[facility]BL[facility] PJMUCVQ2425-22-54 16:58:00Negative (07/12/18 11:58 AM)[facility] QxrgupvDKSGUCMWIBCR6506-57-72 16:58:0010.2[facility] EYXSXHIPHXUN0478-53-57 16:58:0019[facility] UqpvrqbWNGGPNAYCVTG5630-24-53 16:58:00 8.0[facility] BujviydEKNFLBVSFMOQ3824-70-64 16:58:0026[facility] HermannELECTROLYTES 2018-07-12 16:58:003.53[facility] SvgthupJZODZDMKADBS8708-43-51 16:58:0033[facility] JfvteacQPAOUOHLQBPY3576-71-57 16:58:0086[facility] RloqrwzGSWSQOVSUKVY3305-81-62 16:58:26175Mrgkpwff RbmssqmMFKRUCYOSCIE5365-84-35 16:58:22628Jqxjrqvv [place] OSVYWPGQHPXQ0092-22-12 16:58:005.2[facility] JczcgyuZBJEUHNHVP5228-06-35 16:58:00 Test Item Value Reference Range Interpretation Comments PTT (test code = PTT) 34.8 s 22.9-35.8 [facility] YphavynQVJQNAQINX2333-99-65 16:58:00 Test Item Value Reference Range Interpretation Comments INR (test code = INR) 0.94 1 0.85-1.17 [facility] SpwsjtkIAPZIQGXWM8498-44-44 16:58:00 Test Item Value Reference Range Interpretation Comments PT (test code = PT) 12.6 s 12.0-14.7 [facility] VesalzwBIACVPDGWN8842-97-28 16:58:44903Qvvzsobx HermannHEMATOLOGY 2018-07-12 16:58:007.6[facility] WuaxmjbEJUUYZAIJP6739-49-56 16:58:0037.0[facility] EvzkfwnGVZQNGLPPV5357-12-27 16:58:00 Test Item Value Reference Range Interpretation Comments MCH (test code = MCH) 27.0 pg 27.0-31.0 [facility] SpplvkeTZOTLXNRQL0933-48-88 16:58:0032.7[facility]annHEMATOLOGY 2018-07-12 16:58:0015.7[facility] EocxeyyGIOPIHINEU3382-40-06 16:58:0082.5[facility] OxsxxzqXQDFXZVHPR1855-31-08 16:58:0012.1[facility] CmuladnJRLPFWQHFL6127-31-61 16:58:004.49[facility] AevyimhLUVDWLMZNU6157-05-80 16:58:0010.7[facility] Rob IDFVWDYUCF6043-81-64 16:58:000.6[facility] NorzlrpLALEXWGXKG4722-54-32 16:58:004.6 [facility] CuyqgvsVLUHRMCAOZ9569-00-69 16:58:007.0[facility]annHEMATOLOGY 2018-07-12 16:58:002.4[facility] SwmjwzeYZNDSJEMJN4480-34-72 16:58:000.8[facility] IxicroqCPDQEQLNEQ5556-47-10 16:58:0022.5[facility] QvrjgrsQDXWSOXJOE4152-91-05 16:58:007.2[facility] GzmdwcaZCQESKCOUP4953-14-86 16:58:000.5[facility] YUIORJEWQL4235-20-63 16:58:000.1[facility] HazfnbaPDGSHIYJCK2344-41-25 16:58:00 65.1[facility]annBL[facility] UIWSSDE9042-94-04 16:58:00Negative (07/12/18 11:58 AM)[facility]
--- NOTE | 2022-04-13 19:36 | RAD REPORT ---
EXAM DESCRIPTION: CT - Head C Spine Cap Wo Con - 04/13/2022 7:30 pm CLINICAL HISTORY: Head and neck injury with chest and abdominal pain status post fall TECHNIQUE: Computed axial tomography of head, neck, chest, abdomen and pelvis obtained. IV and oral contrast not requested. Coronal and sagittal reconstruction performed. All CT scans are performed using dose optimization technique as appropriate and may include automated exposure control or mA/KV adjustment according to patient size. COMPARISON: None FINDINGS: An intracranial bleed is not seen. The ventricles are normal in caliber. An extra-axial fluid collection is not noted. . Fluid within the sinuses/mastoids is not seen. A cervical fracture is not seen. No dislocation is noted. The evaluation of mediastinum, tommy, vessels, solid organs and bowel are limited secondary to the lac k of contrast administration. A mediastinal hematoma is not noted. A pleural effusion is not seen. A lung contusion is not present. A few areas of scarring or subsegmental atelectasis are present within the left lower lobe. The liver,spleen, pancreas, adrenals,kidneys and bladder do not demonstrate a traumatic injury IMPRESSION: No acute intracranial abnormality is seen. A cervical fracture is not visualized. If the patient continues have symptoms to suggest intracrania l/spinal cord pathology MRI be recommended No traumatic abnormality involving the chest/abdomen/pelvis.
[2022-04-13 19:40] LABS: Absolute Lymphocytes (CBC) 1.2 K/uL (0.7-4.9); Hematocrit 34.5 % (39.6-49.0); Lymphocytes % 18.5 % (15.3-44.8); MPV 7.3 fL (7.6-11.3); RBC Red Blood Cell Count 3.89 M/uL (4.33-5.43)
[2022-04-13 20:00] LABS: Protime INR 0.96
[2022-04-13 20:16] LABS: Albumin 3.3 g/dL (3.4-5.0); Bilirubin Direct 0.1 mg/dL (0-0.2); Bilirubin Total 0.3 mg/dL (0.2-1.0); Magnesium 2.4 mg/dL (1.8-2.4); Protein, Total 6.4 g/dL (6.4-8.2); Troponin High Sensitivity 16.6 pg/mL (<58.9)
--- NOTE | 2022-04-13 20:18 | RAD REPORT ---
EXAM DESCRIPTION: Jayson Single View04/13/2022 7:19 pm CLINICAL HISTORY: Chest pain COMPARISON: 2019 FINDINGS: Chronic elevation left hemidiaphragm with a few areas of scarring within the left lung ba se. Right lung appears clear. Heart is normal size
[2022-04-13 20:19] LABS: Potassium 6.2 mmol/L (3.5-5.1)
--- NOTE | 2022-04-13 20:36 | ER ---
Nurse's Notes [facility] Name: Vladimir Maguire Age: 51 yrs Sex: Male : 1970 Arrival Date: 04/13/2022 Time: 18:22 Bed 4 Private MD: Diagnosis: Syncope;Hyperkalemia Presentation: 04/13 18:34 Chief complaint: EMS states: Pt had 2 syncopal episodes, witnessed by brother, first ph was while he was sitting outside, brother reports that he was sitting looking at his phone and slumped over, then went inside and passed out again, abrasion to L side of head, hematoma to L head, pt c/o neck pain, hx of dialysis, missed dialysis today but was dialyzed Monday, VSS. Coronavirus screen: Vaccine status: Patient reports receiving the 2nd dose of the covid vaccine. Ebola Screen: No symptoms or risks identified at this time. Initial Sepsis Screen: Does the patient meet any 2 criteria? No. Patient's initial sepsis screen is negative. Does the patient have a suspected source of infection? No. Patient's initial sepsis screen is negative. Risk Assessment: Do you want to hurt yourself or someone else? Patient reports no desire to harm self or others. Onset of symptoms was April 13, 2022. 18:34 Method Of Arrival: EMS: [facility] 18:34 Acuity: GINA 2 ph Triage Assessment: 18:39 General: Appears in no apparent distress. uncomfortable, Behavior is calm, cooperative, ph appropriate for age. Pain: Complains of pain in head and back of neck. Neuro: Level of Consciousness is awake, alert, obeys commands, Oriented to person, place, time, situation. Cardiovascular: Reports lightheadedness, syncope, Denies chest pain, palpitations, shortness of breath, Capillary refill < 3 seconds in bilateral fingers Patient's skin is warm and dry. Rhythm is sinus rhythm Dialysis shunt: in the left bicep, with palpable thrill, with auscultated bruit, with no erythema, with no edema, no bleeding noted. Respiratory: Airway is patent Respiratory effort is even, unlabored. GI: No signs and/or symptoms were reported involving the gastrointestinal system. Derm: Skin is healthy with good turgor, Skin is pink, warm \\T\\ dry. Musculoskeletal: Amputation of Right BKA. Circulation, motion, and sensation intact. Injury Description: Abrasion sustained to left side of forehead. Historical: - Allergies: 18:37 Ativan; ph - PMHx: 18:37 Diabetes - NIDDM; Hypertension; neuropathy; Renal Disease; Rheumatoid Arthritis; ph - PSHx: 18:37 dialysis site to left arm; Right BKA; ph - Immunization history:: Adult Immunizations up to date. - Social history:: Smoking status: Patient denies any tobacco usage or history of. Patient uses street drugs, marijuana. Screenin:38 Abuse screen: Denies threats or abuse. Denies injuries from another. Nutritional ph screening: No deficits noted. Tuberculosis screening: No symptoms or risk factors identified. Fall Risk Fall in past 12 months (25 points). No secondary diagnosis (0 pts). IV access (20 points). Ambulatory Aid- None/Bed Rest/Nurse Assist (0 pts). Gait- Weak (10 pts.). Mental Status- Oriented to own ability (0 pts). Total Darden Fall Scale indicates High Risk Score (45 or more points). Fall prevention measures have been instituted. Side Rails Up X 2 Placed Close to Nursing Station Frequent Obs/Assessments Occuring Family Present and informed to notify staff if the need to leave the bedside As available patient and family educated on Fall Prevention Program and Strategies. Assessment: 19:33 General: Appears uncomfortable, Behavior is calm, cooperative. General: "I'm in pain as6 everywhere" c-collar in place . Vital Signs: 18:34 BP 145 / 78; Pulse 71; Resp 18; Temp 98.0; Pulse Ox 98% on R/A; Weight 102.06 kg; ph Height 5 ft. 10 in. (177.80 cm); 19:34 BP 166 / 86 RA; Pulse 68 MON; Resp 13 S; Pulse Ox 99% on R/A; as6 21:00 BP 139 / 90; Pulse 78; Resp 18 S; Pulse Ox 100% on R/A; as6 23:50 BP 170 / 91; Pulse 70; Resp 20 S; Pulse Ox 98% on R/A; as6 18:34 Body Mass Index 32.28 (102.06 kg, 177.80 cm) ED Course: 18:22 Patient arrived in ED. bd 18:23 Rocael Smith PA is PHCP. cp 18:23 Jeevan Guzman DO is Attending Physician. cp 18:32 Jaylyn Everett, RN is Primary Nurse. ph 18:37 Triage completed. ph 18:38 Arm band placed on Patient placed in an exam room, on a stretcher, on lead sales consultant, ph on pulse oximetry. 18:38 Patient has correct armband on for positive identification. Bed in low position. Call ph light in reach. Side rails up X2. Client placed on continuous cardiac and pulse oximetry monitoring. NIBP monitoring applied. 19:18 Primary Nurse role handed off by Jaylyn Everett, NINA mw2 19:21 XRAY Chest (1 view) In Process Unspecified. EDMS 19:23 Zacarias Anders MD is Attending Physician. cp 19:23 Salinas Simental, NINA is Primary Nurse. as6 19:32 CT Traumagram (Head C Spine CAP wo con) In Process Unspecified. EDMS 19:33 Inserted saline lock: 20 gauge in right antecubital area, using aseptic technique. as6 Blood collected. 20:20 Notified ED physician of a critical lab result(s). Potassium 6.2, Creatinine 13.4. lp1 20:34 Aki Mckinney is Hospitalizing Provider. cp 21:23 Trino Henderson MD is Hospitalizing Provider. la1 23:51 No provider procedures requiring assistance completed. Patient admitted, IV remains in as6 place. Administered Medications: 20:26 Not Given (Patient Refused): Tylenol 1000 mg PO once as6 21:02 Drug: fentaNYL (PF) 25 mcg Route: IVP; Site: right antecubital; as6 23:52 Follow up: Response: No adverse reaction; RASS: Alert and Calm (0) as6 21:02 Drug: D5W 250 ml Route: IVPB; Site: right antecubital; as6 0609 00:21 Follow up: Response: No adverse reaction; IV Status: Completed infusion; IV Intake: as6 250ml 0608 21:03 Drug: Kayexalate (polystyrene) 45 grams Route: PO; as6 23:52 Follow up: Response: No adverse reaction as6 21:05 Not Given (Other Intervention Used): D50W 50 ml IVP once; (1 amp) as6 22:26 Drug: Albuterol 2.5 mg Route: Inhalation; as6 22:26 Drug: Insulin Regular Human 5 units {Co-Signature: tw5 (Lashay Hebert).} Route: IVP; as6 Site: right antecubital; 04/14 00:21 Follow up: Response: No adverse reaction as6 04/13 22:45 Drug: Albuterol 2.5 mg Route: Inhalation; as6 23:10 Drug: Albuterol 2.5 mg Route: Inhalation; as6 04/14 00:22 Follow up: Response: No adverse reaction as6 Medication: 04/13 23:51 VIS not applicable for this client. as6 Intake: 04/14 00:21 IV: 250ml; Total: 250ml. as6 Outcome: 04/13 20:35 Decision to Hospitalize by Provider. cp 23:51 Admitted to Med/surg via wheelchair, room 204, with chart. as6 23:51 Condition: stable 23:51 Instructed on the need for admit. 04/14 00:22 Patient left the ED. as6 Signatures: Dispatcher [employer] EDMS Anny Castro Laura, RN RN lp1 Aki Mckinney, LOG TUMBLER-C LOG TUMBLER-Cla1 Jaylyn Everett, RN RN Rocael Guerin PA PA [employer] mw2 Salinas Simental RN RN as6 Lashay Hebert tw5
--- NOTE | 2022-04-13 20:36 | EDPHYS ---
Physician Documentation [facility] Name: Vladimir Maguire Age: 51 yrs Sex: Male : 1970 Arrival Date: 04/13/2022 Time: 18:22 Bed 4 Private MD: ED Physician Zacarias Anders HPI: 04/13 18:30 This 51 yrs old Male presents to ER via EMS with complaints of Syncope. cp 18:30 The patient has experienced syncope, collapsed. Onset: The symptoms/episode cp began/occurred just prior to arrival. Duration: The patient has had multiple episodes, that last 5 minute(s). Associated injury: Head/face: forehead, contusion, Neck: pain. 18:30 Associated signs and symptoms: Pertinent positives: headache, Pertinent negatives: cp abdominal pain, chest pain, dizziness, palpitations, shortness of breath, weakness. 18:33 Patient reports he was last dialyzed this past Monday and missed dialysis today. cp 18:35 Patient reports he was outside sitting down using phone when next he remembers waking cp up on ground. Brother reports patient awoke and as he was walking into house, lost consciousness again causing him to fall to ground. Historical: - Allergies: 18:37 Ativan; ph - PMHx: 18:37 Diabetes - NIDDM; Hypertension; neuropathy; Renal Disease; Rheumatoid Arthritis; ph - PSHx: 18:37 dialysis site to left arm; Right BKA; ph - Immunization history:: Adult Immunizations up to date. - Social history:: Smoking status: Patient denies any tobacco usage or history of. Patient uses street drugs, marijuana. ROS: 18:35 Constitutional: Negative for body aches, chills, fever, poor PO intake. cp 18:35 Eyes: Negative for injury, pain, redness, and discharge. cp 18:35 Neck: Positive for pain at rest. 18:35 Cardiovascular: Negative for chest pain, edema, palpitations. 18:35 Respiratory: Negative for cough, shortness of breath, wheezing. 18:35 Abdomen/GI: Negative for abdominal pain, nausea, vomiting, and diarrhea, constipation, black/tarry stool, rectal bleeding. 18:35 Back: Positive for pain at rest, pain with movement. 18:35 Neuro: Positive for headache, syncope, Negative for altered mental status, numbness, seizure activity, weakness. 18:35 All other systems are negative. Exam: 18:40 Constitutional: The patient appears in no acute distress, alert, awake, cp non-diaphoretic, non-toxic, well developed, well nourished. 18:40 Head/Face: Normocephalic, atraumatic. cp 18:40 Eyes: Periorbital structures: appear normal, Pupils: equal, round, and reactive to light and accomodation, Extraocular movements: intact throughout, Conjunctiva: normal, no exudate, no injection, Sclera: no appreciated abnormality, Lids and lashes: appear normal, bilaterally. 18:40 ENT: External ear(s): are unremarkable, Ear canal(s): are normal, clear, TM's: dullness, bilaterally. 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 18:40 Chest/axilla: Inspection: normal, Palpation: is normal, no crepitus, no tenderness. 18:40 Cardiovascular: Rate: normal, Rhythm: regular, Edema: is not appreciated, JVD: is not appreciated. 18:40 Respiratory: the patient does not display signs of respiratory distress, Respirations: normal, no use of accessory muscles, no retractions, labored breathing, is not present, Breath sounds: are clear throughout, no decreased breath sounds, no stridor, no wheezing. 18:40 Abdomen/GI: Inspection: abdomen appears normal, Palpation: abdomen is soft and non-tender, in all quadrants, Rectal exam: the exam is deferred, because of patient request. 18:40 Back: pain, that is very mild. 18:40 Musculoskeletal/extremity: right below the knee amputation. 18:40 Neuro: Orientation: to person, place \\T\\ time. Mentation: able to follow commands, Motor: moves all fours, strength is normal, Sensation: is normal. 18:57 ECG was reviewed by the Attending Physician. cp Vital Signs: 18:34 BP 145 / 78; Pulse 71; Resp 18; Temp 98.0; Pulse Ox 98% on R/A; Weight 102.06 kg; ph Height 5 ft. 10 in. (177.80 cm); 19:34 BP 166 / 86 RA; Pulse 68 MON; Resp 13 S; Pulse Ox 99% on R/A; as6 21:00 BP 139 / 90; Pulse 78; Resp 18 S; Pulse Ox 100% on R/A; as6 23:50 BP 170 / 91; Pulse 70; Resp 20 S; Pulse Ox 98% on R/A; as6 18:34 Body Mass Index 32.28 (102.06 kg, 177.80 cm) ph MDM: 18:27 Patient medically screened. cp 19:00 Differential Diagnosis: cardiac arrhythmia, cerebrovascular accident, GI bleed, cp seizure, vasovagal episode. 20:35 Data reviewed: vital signs, nurses notes, lab test result(s), EKG, radiologic studies, cp CT scan, plain films. 20:35 Test interpretation: by ED physician or midlevel provider: ECG, plain radiologic cp studies. Physician consultation: Aki Mckinney was called at 20:30, was contacted at 20:30, regarding admission, to the telemetry unit. patient's condition. 04/13 18:24 Order name: Basic Metabolic Panel 04/13 20:22 Interpretation: Normal except: NA 135; K 6.2; CO2 19; ANION GAP 18.2; BUN 81; CRE cp 13.40; GFR 4; CA 7.6. 04/13 18:24 Order name: CBC with Diff; Complete Time: 20:14 04/13 20:15 Interpretation: Normal except: RBC 3.89; HGB 11.0; HCT 34.5; MCHC 31.8; MPV 7.3. 04/13 18:24 Order name: LFT's 04/13 18:24 Order name: Magnesium 04/13 18:24 Order name: NT PRO-BNP 04/13 20:22 Interpretation: Normal except: NT PRO-BNP 53400. 04/13 18:24 Order name: PT-INR; Complete Time: 20:14 04/13 18:24 Order name: Troponin HS cp 04/13 18:24 Order name: XRAY Chest (1 view); Complete Time: 20:21 04/13 18:24 Order name: Ptt, Activated; Complete Time: 20:14 04/13 18:24 Order name: CT Traumagram (Head C Spine CAP wo con); Complete Time: 19:43 04/13 19:43 Interpretation: Report reviewed. 04/13 21:08 Order name: COVID-19 SARS RT PCR (Document "Date of Onset" if Symptomatic) as04/13 18:24 Order name: EKG; Complete Time: 18:25 cp 04/13 18:24 Order name: Cardiac monitoring; Complete Time: 18:39 cp 04/13 18:24 Order name: EKG - Nurse/Tech; Complete Time: 19:05 cp 04/13 18:24 Order name: IV Saline Lock; Complete Time: 19:33 cp 04/13 18:24 Order name: Labs collected and sent; Complete Time: 19:33 cp 04/13 18:24 Order name: O2 Per Protocol; Complete Time: 18:39 cp 04/13 18:24 Order name: O2 Sat Monitoring; Complete Time: 18:39 cp EC:57 Rate is 69 beats/min. Rhythm is regular. VA interval is normal. QRS interval is normal. cp QT interval is normal. T waves are Inverted in leads aVL, aVR. Interpreted by me. Reviewed by me. Administered Medications: 20:26 Not Given (Patient Refused): Tylenol 1000 mg PO once as6 21:02 Drug: fentaNYL (PF) 25 mcg Route: IVP; Site: right antecubital; as6 23:52 Follow up: Response: No adverse reaction; RASS: Alert and Calm (0) as6 21:02 Drug: D5W 250 ml Route: IVPB; Site: right antecubital; as04/14 00:21 Follow up: Response: No adverse reaction; IV Status: Completed infusion; IV Intake: as6 250ml 04/13 21:03 Drug: Kayexalate (polystyrene) 45 grams Route: PO; as6 23:52 Follow up: Response: No adverse reaction as6 21:05 Not Given (Other Intervention Used): D50W 50 ml IVP once; (1 amp) as6 22:26 Drug: Albuterol 2.5 mg Route: Inhalation; 22:26 Drug: Insulin Regular Human 5 units {Co-Signature: tw5 (Lashay Hebert).} Route: IVP; as6 Site: right antecubital; 04/14 00:21 Follow up: Response: No adverse reaction as6 04/13 22:45 Drug: Albuterol 2.5 mg Route: Inhalation; as6 23:10 Drug: Albuterol 2.5 mg Route: Inhalation; 6 04/14 00:22 Follow up: Response: No adverse reaction as6 Disposition: 04:10 Co-signature as Attending Physician, Zacarias Anders MD. rn Disposition Summary: 04/13/22 20:35 Hospitalization Ordered Hospitalization Status: Observation cp Location: Telemetry/MedSurg (observation) cp Condition: Stable cp Problem: new cp Symptoms: have improved cp Bed/Room Type: Standard cp Provider: Trino Henderson(04/13/22 21:23) la1 Room Assignment: [facility](04/13/22 23:41) Diagnosis - Syncope cp - Hyperkalemia cp Forms: - Medication Reconciliation Form cp - SBAR form cp Signatures: Dispatcher [employer] EDZacarias Arellano MD MD rn Aki Mckinney, COST ACCOUNTING CLERK-C COST ACCOUNTING CLERK-Cla1 Jaylyn Everett RN RN Rocael Guerin PA PA cp Arielle Buckley RN RN cg Salinas Simental RN RN as6 Lashay Hebert tw5 Corrections: (The following items were deleted from the chart) 04/13 21:23 20:35 Aki Mckinney cp la1 23:41 20:35 cp cg
[2022-04-13] MEDS ORDERED: ALBUTEROL 2.5 MG/3 ML NEB SOL ONE (20:56)
[2022-04-13] MEDS ORDERED: FENTANYL CITR 100 MCG/2 ML ONE (20:56)
[2022-04-13] MEDS ORDERED: SOD POLYSTYREN SUL 15 GM/60 ML UCUP ONE (20:57)
[2022-04-13] MEDS ORDERED: D5W 250 ML IV ONE (20:57)
[2022-04-13] MEDS ORDERED: INSULIN -REGULAR HUMAN 50 UNIT/0.5 ML ML ONE (20:57)
--- NOTE | 2022-04-13 22:19 | P.HP ---
Certification for Inpatient Patient admitted to: Observation With expected LOS: <2 Midnights Patient will require the following post-hospital care: None Practitioner: I am a practitioner with admitting privileges, knowledge of patient current condition, hospital course, and medical plan of care. Services: Services provided to patient in accordance with Admission requirements found in Title 42 Section 412.3 of the Code of Federal Regulations Patient History Date of Service: 04/13/22 Reason for admission: Syncope, hyperkalemia History of Present Illness: 51-year-old male history ESRD on HD MWF, diabetes mellitus type 2insulin- dependent, hypertension presents emergency department for syncope x2. Patient reports he was at home sitting in chair when he began feeling lightheaded passed out falling off the chair and hitting his head in the ground he did lose consciousness after gaining consciousness he went back inside had a second syncopal episode. He was brought to the emergency department evaluated his labs were significant for hyperkalemia and other findings of ESRD CT head/C- spine/chest abdomen pelvis without contrast was negative for any acute findings. He was given potassium cocktail for treatment of his hyperkalemia in the emergency department. Patient is moving from [facility] currently does not have a dialysis chair arranged here he did miss dialysis today but he did complete his dialysis on Monday. Will admit, consult nephrology for dialysis and obtain echocardiogram in regards to syncope. Allergies No Known Allergies Allergy (Verified 04/21/20 22:07) Home Medications: Doxazosin Mesylate [Cardura] 2 mg PO BID 03/25/19 Hydrocodone/Acetaminophen [Hydrocodone-Acetamin 5-325 mg] 1 tab PO TID 03/25/19 Metoprolol Succinate [Toprol Xl*] 50 mg PO BID 03/25/19 lisinopriL [Lisinopril] 20 mg PO BID 03/25/19 Amlodipine [Norvasc*] 10 mg PO DAILY 04/22/20 Tizanidine HCl 4 mg PO TID PRN 04/22/20 clonazePAM [Clonazepam] 1 mg PO BID 04/22/20 - Past Medical/Surgical History Diabetic: Yes -: HTN -: rheumatoid arthritis -: kidney failure -: R kidney cancer -: Type 2 diabetes -: total knee replacement -: L little toe amputation -: BKA R -: upper neck fusion with broken screws -: wrist surgery -: R kidney removal -: left hand urgery - Family History Mother -: Other (see notes) Notes: no known medical history - Social History Alcohol use: No CD- Drugs: Yes Caffeine use: Yes Place of Residence: Home Review of Systems 10-point ROS is otherwise unremarkable Cardiovascular: Light Headedness, Other (Syncope) Physical Examination - Physical Exam General: Alert, In no apparent distress, Oriented x3 HEENT: Atraumatic, PERRLA, Mucous membr. moist/pink, EOMI, Sclerae nonicteric Neck: Supple, 2+ carotid pulse no bruit, No LAD, Without JVD or thyroid abnormality Respiratory: Clear to auscultation bilaterally, Normal air movement Cardiovascular: Regular rate/rhythm, Normal S1 S2 Gastrointestinal: Normal bowel sounds, No tenderness Musculoskeletal: No tenderness, Other (Right BKA) Integumentary: No rashes Neurological: Normal speech, Normal strength at 5/5 x4 extr, Normal tone, Normal affect Lymphatics: No axilla or inguinal lymphadenopathy - Studies Laboratory Data (last 24 hrs) 04/13/22 19:30: PT 10.5, INR 0.96, APTT 33.3 04/13/22 19:30: WBC 6.3, Hgb 11.0 L, Hct 34.5 L, Plt Count 169 04/13/22 19:30: Sodium 135 L, Potassium 6.2 H*, BUN 81 H, Creatinine 13.40 H*, Glucose 97, Magnesium 2.4, Total Bilirubin 0.3, AST 15, Alkaline Phosphatase 115 Assessment and Plan - Plan Assessment: ESRD on HD MWF with hyperkalemia/noncompliance Syncope Diabetes type 2insulin-dependent Hypertension Plan: ESRD on HD MWF with hyperkalemia/noncompliance: Nephrology consulted for assistance with dialysis, patient reports he recently moved from [place] he did complete dialysis on Monday and but did not go to dialysis today as he does not have a dialysis chair locally. We will need to admit for acute hemodialysis given hyperkalemia. Syncope: 2 episode of syncope from sitting position, will obtain echocardiogram monitor on telemetry throughout hospitalization possibly lead to hyperkalemia/arrhythmia. Diabetes type 2insulin-dependent: ACH S Accu-Chek, sliding scale insulin Hypertension: Continue home medications. DVT PPX: Heparin Code status: Full Discharge Plan: Home Plan to discharge in: 24 Hours - Advance Directives Does patient have a Living Will: No Does patient have a Durable POA for Healthcare: No - Code Status/Comfort Care Code Status Assessed: Yes (Full code) Critical Care: No Time Spent Managing Pts Care (In Minutes): 55
[2022-04-14] MEDS ORDERED: ONDANSETRON 4 MG/2 ML VIAL IV PRN (00:30)
[2022-04-14 00:47] VITALS: BMI 30.1
[2022-04-14] MEDS ORDERED: ACETAMINOPHEN 325 MG TABLET PO PRN ×2 (01:05→12:56)
[2022-04-14] MEDS ORDERED: HYDROCODONE/APAP 7.5/325 MG TAB PO PRN (02:42)
[2022-04-14] MEDS: FENTANYL CITR 100 MCG/2 ML IV PRN ×5 (04:49→23:51)
--- NOTE | 2022-04-14 06:28 | EKG ---
Test Date: 2022-04-13 Test Time: 18:53:44 C.O.D. Biller: PH MEASUREMENT RESULTS: Intervals: Rate: 69 [place]: 196 QRSD: 94 QT: 406 QTc: 435 [place]: P: 58 [place]: 196 QRS: 41 T: 92 INTERPRETIVE STATEMENTS: Normal sinus rhythm Normal ECG Compared to ECG 04/21/2020 17:15:47 ST (T wave) deviation no longer present Electronically Signed On 04-14-22 06:27:35 CDT by Giuseppe Richmond
[2022-04-14] MEDS: INSULIN -REGULAR HUMAN 50 UNIT/0.5 ML ML SQ SCH ×4 (07:30→21:00)
[2022-04-14 07:33] LABS: Absolute Lymphocytes (CBC) 1.4 K/uL (0.7-4.9); Hematocrit 33.1 % (39.6-49.0); Lymphocytes % 23.8 % (15.3-44.8); MPV 7.5 fL (7.6-11.3)
[2022-04-14 08:14] LABS: Albumin 3.1 g/dL (3.4-5.0); Bilirubin Total 0.3 mg/dL (0.2-1.0); Potassium 5.1 mmol/L (3.5-5.1)
[2022-04-14] MEDS: HEPARIN 5000 UNIT/ML 1 ML VIAL SQ SCH ×2 (09:40→20:34)
--- NOTE | 2022-04-14 14:19 | CON ---
Date of Consultation: 04/14/2022 Reason For Consultation: ESRD on dialysis. History Of Present Illness: Mr. Maguire is a 51-year-old male with past medical history significan t for history of ESRD, on dialysis, peripheral vascular disease, who presented to the hospital after episodes of syncope noted yesterday. The patient had missed his dialysis yesterday, but did have his dialysis on Monday. He recently switched from [facility] to [facility], but however it is not work ing out from him at [facility] and wants to switch back to [place] or [place]. The patient states that he feels okay at this time. Denies any other chest pain, shortness of breath or nausea or vomit ing. Past Medical History: Significant for history of hypertension, rheumatoid arthritis, ESRD, right kid lily cancer, total knee replacement, BKA on the right side, left hand surgery. Family History: Noncontributory. Social History: Lives at home. No history of drug abuse reported. Review of Systems: As noted in history of present illness. Physical Examination: Vital Signs: At this time are showing temperature of 97.2, pulse rate of 80, respiratory rate of 16, and blood pressure 163/92. General: He appears in no acute distress. HEENT: Atraumatic head. Lungs: Clear. Abdomen: Soft. Heart: Auscultation of the heart revealed regular rate and rhythm. Extremities: Right BKA. Left leg with no evidence of any swelling. Laboratory Data: Showing hyperkalemia with potassium of 6.2, improving to 5.1. BUN of 86, and creat inine of 14.4. CBC showing stable hemoglobin, hematocrit, and platelet count. Current Medications: Have been reviewed and home medications have been reviewed. Impression: 1.End-stage renal disease, on dialysis. The patient will need dialysis today. We will try to clean him out without taking off any ultrafiltration. 2.Hyperkalemia has been corrected, but we will continue dialysis. 3.Syncope. We will need to rule out cardiac etiology. Echocardiogram has been ordered. 4.Anemia secondary to end-stage renal disease. Continue to monitor closely with Retacrit. Plan: The patient is overall doing okay, clinically stable. Rule out cardiac etiology for the synco pe. We will plan for dialysis today. Social work consult for placement at dialysis unit of choice, and we will follow up. VV/PJ Voice ID: [id number] Report ID: [id number]
[2022-04-14] MEDS: HYDRALAZINE HCL 20 MG/ML VIAL IV PRN (21:57)
[2022-04-14] MEDS ORDERED: METOPROLOL TARTRATE 5 MG/5 ML INJ IV STA (23:32)
[2022-04-14] MEDS ORDERED: AMITRIPTYLINE 50 MG TAB PO PRN (23:34)
[2022-04-15] MEDS: METOPROLOL TAR 50 MG TAB PO SCH ×2 (00:53→09:00)
[2022-04-15] MEDS: FENTANYL CITR 100 MCG/2 ML IV PRN ×5 (04:22→21:17)
[2022-04-15 05:45] LABS: Absolute Lymphocytes (CBC) 1.1 K/uL (0.7-4.9); Hematocrit 31.4 % (39.6-49.0); Lymphocytes % 18.5 % (15.3-44.8); MPV 7.6 fL (7.6-11.3); RBC Red Blood Cell Count 3.59 M/uL (4.33-5.43)
[2022-04-15 06:05] LABS: Albumin 2.9 g/dL (3.4-5.0); Bilirubin Total 0.3 mg/dL (0.2-1.0); Potassium 4.2 mmol/L (3.5-5.1); Protein, Total 5.8 g/dL (6.4-8.2)
--- NOTE | 2022-04-15 06:16 | EKG ---
Test Date: 2022-04-14 Test Time: 23:29:34 Trauma Program Manager: RT MEASUREMENT RESULTS: Intervals: Rate: 127 NM: QRSD: 86 QT: 322 QTc: 467 [place]: P: 74 NM: QRS: 33 T: 118 INTERPRETIVE STATEMENTS: Atrial flutter with variable AV block with premature ventricular or aberrantly conducted complexes Nonspecific ST and T wave abnormality Abnormal ECG Compared to ECG 04/13/2022 18:53:44 Ventricular premature complex(es) now present ST (T wave) deviation now present Sinus rhythm no longer present Electronically Signed On 04-15-22 06:15:48 CDT by Giuseppe Richmond
[2022-04-15] MEDS: PANTOPRAZOLE 40MG TABLET PO SCH (06:25)
[2022-04-15] MEDS: HYDRALAZINE HCL 20 MG/ML VIAL IV PRN ×2 (06:59→18:27)
--- NOTE | 2022-04-15 07:00 | ECHO ---
HEIGHT: 5 ft 10 in WEIGHT: 210 lb 0 oz DATE OF STUDY: 04/14/[address]: Aki Mckinney NP 2-DIMENSIONAL: YES M.MODE: YES DOPPLER: YES COLOR FLOW: YES TDS: PORTABLE: YES DEFINITY: BUBBLE STUDY: DIAGNOSIS: SYNCOPE CARDIAC HISTORY: CATHERIZATION: SURGERY: PROSTHETIC VALVE: PACEMAKER: MEASUREMENTS (cm) DIASTOLIC (NORMALS) SYSTOLIC (NORMALS) IVSd 1.2 (0.6-1.2) LA Diam 3.6 (1.9-4.0) LVEF 53% LVIDd 4.6 (3.5-5.7) LVIDs 3.4 (2.0-3.5) %FS 27% LVPWd 1.4 (0.6-1.2) Ao Diam 3.1 (2.0-3.7) 2 DIMENSIONAL ASSESSMENT: RIGHT ATRIUM: NORMAL LEFT ATRIUM: NORMAL RIGHT VENTRICLE: NORMAL LEFT VENTRICLE: LEFT VENTRICULAR HYPERTROPHY TRICUSPID VALVE: NORMAL MITRAL VALVE: THICKENED WITH MILD STENOSIS PULMONIC VALVE: NORMAL AORTIC VALVE: NORMAL PERICARDIAL EFFUSION: NONE AORTIC ROOT: NORMAL LEFT VENTRICULAR WALL MOTION: NORMAL DOPPLER/COLOR FLOW: SEE BELOW COMMENTS: NORMAL LEFT VENTRICULAR EJECTION FRACTION 55-60%. NORMAL WALL MOTION. THICKENED MITRAL VALVE WITH MILD STENOSIS. TECHNOLOGIST: LISA WIGGINS
[2022-04-15] MEDS: INSULIN -REGULAR HUMAN 50 UNIT/0.5 ML ML SQ SCH ×4 (07:30→21:00)
[2022-04-15] MEDS ORDERED: DOXAZOSIN 2 MG TAB ONE (08:01)
[2022-04-15] MEDS: lisinopriL 20 MG TAB PO SCH ×2 (09:00→21:17)
[2022-04-15] MEDS ORDERED: HOME MED 1 EA UNK (Omeprazole [Prilosec] 40 MG Capsule.Dr) PO SCH (09:00)
[2022-04-15] MEDS: HYDRALAZINE HCL 25 MG TABLET PO SCH ×3 (09:00→22:26)
[2022-04-15] MEDS: DOXAZOSIN 4 MG TAB PO SCH ×2 (09:00→21:17)
[2022-04-15] MEDS: HEPARIN 5000 UNIT/ML 1 ML VIAL SQ SCH (09:11)
[2022-04-15] MEDS: APIXABAN 2.5 MG TABLET PO SCH ×2 (09:11→21:17)
[2022-04-15] MEDS: clonazePAM 1 MG TAB PO SCH ×2 (09:11→22:27)
--- NOTE | 2022-04-15 14:25 | PN ---
Subjective: The patient is seen and examined at bedside. He is complaining of pain, which is not un jane control. Physical Examination: Vital signs: Have been reviewed and are stable. General: He appears in no acute distress. HEENT: Atraumatic head. Lungs: Clear to auscultation. Extremities: Right-sided BKA in place, left leg with no evidence of edema. Laboratory Data: Has been reviewed and are stable. Current Medications: Have been reviewed in detail. Impression: 1.End-stage renal disease, on dialysis. 2.Noncompliance with dialysis. 3.Hyperkalemia, resolved. 4.Syncopal episodes. Has had an echocardiogram and electrocardiogram done. Cardiac evaluation pend ing. 5.Anemia secondary to renal failure. Plan: The patient is overall doing okay. I have discussed with social work regarding placement opti ons. We are trying to get him at the local dialysis unit to encourage compliance with dialysis treat ments. Plan for dialysis today per his regular schedule and ultrafilter about 1-2 L as tolerated. A nemia, stable. Continue to monitor. VV/MODL Voice ID: [id number] Report ID: [id number]
--- NOTE | 2022-04-15 17:28 | P.PN ---
Subjective Date of Service: 04/15/22 Chief Complaint: Syncope, hyperkalemia Subjective: No new changes Physical Examination - Vital Signs Temperature: 97.2 F Blood Pressure: 180/84 Pulse: 85 Respirations: 18 Pulse Ox (%): 100 - Physical Exam General: Alert, Oriented x3 HEENT: Atraumatic, Normocephalic Neck: Supple Respiratory: Normal air movement Cardiovascular: Regular rate/rhythm, Normal S1 S2 Gastrointestinal: Soft and benign Musculoskeletal: No swelling Neurological: Normal speech, Normal strength at 5/5 x4 extr Assessment And Plan - Plan Assessment: ESRD on HD MWF with hyperkalemia/noncompliance Syncope Diabetes type 2insulin-dependent Hypertension Plan: ESRD on HD MWF with hyperkalemia/noncompliance: Nephrology following for dialysis needs while admitted. We will follow potassium levels closely. Syncope: No new issues. cardiology following for management. Diabetes type 2insulin-dependent: Carb restericted diet to be continued. ACHS, Accu-Checks, sliding scale insulin to be continued. Hypertension: Blood pressure control to be continued. DVT PPX: Heparin. Code status: Full
[2022-04-15] MEDS ORDERED: MORPHINE 2 MG/ML SYR IV ONE (23:44)
[2022-04-16] MEDS: FENTANYL CITR 100 MCG/2 ML IV PRN ×3 (04:06→21:48)
[2022-04-16 06:08] LABS: Absolute Lymphocytes (CBC) 1.1 K/uL (0.7-4.9); Hematocrit 29.2 % (39.6-49.0); Lymphocytes % 27.9 % (15.3-44.8); MPV 7.3 fL (7.6-11.3); RBC Red Blood Cell Count 3.36 M/uL (4.33-5.43)
[2022-04-16] MEDS: PANTOPRAZOLE 40MG TABLET PO SCH (06:34)
[2022-04-16 06:35] LABS: Albumin 2.9 g/dL (3.4-5.0); Bilirubin Total 0.4 mg/dL (0.2-1.0); Potassium 3.9 mmol/L (3.5-5.1)
[2022-04-16] MEDS: INSULIN -REGULAR HUMAN 50 UNIT/0.5 ML ML SQ SCH ×4 (07:30→20:18)
[2022-04-16] MEDS ORDERED: DOXAZOSIN 2 MG TAB ONE ×3 (07:50→20:15)
[2022-04-16] MEDS: clonazePAM 1 MG TAB PO SCH ×2 (08:18→20:17)
[2022-04-16] MEDS: HYDRALAZINE HCL 25 MG TABLET PO SCH ×3 (08:20→20:16)
[2022-04-16] MEDS: APIXABAN 2.5 MG TABLET PO SCH ×2 (08:20→20:17)
[2022-04-16] MEDS: lisinopriL 20 MG TAB PO SCH ×2 (08:23→20:17)
[2022-04-16] MEDS: DOXAZOSIN 4 MG TAB PO SCH ×2 (08:29→20:16)
[2022-04-16] MEDS ORDERED: HYDROMORPHONE HCL 0.5 MG/0.5 ML INJ IV ONE (10:50)
--- NOTE | 2022-04-16 11:38 | CON ---
Date of Consultation: 04/15/2022 Reason For Consultation: Syncope. History Of Present Illness: Mr. Maguire is a patient, who has a history of right BKA. He is a hem odialysis patient. Has a history of diabetes, hypertension as well as history of atrial flutter. He is known to have history of mild mitral stenosis. Came in with syncope. No chest pain reported. D enied any nausea or vomiting or diaphoresis. He denied any PND, orthopnea, pedal edema, or palpitati on. While he was on the monitor, he had up to 9 second pauses, but he takes metoprolol 100 mg b.i.d. at home. Allergies: NONE. Review of Systems: Negative. Social History: Negative. Family History: Noncontributory. Medications: At home include Eliquis, hydralazine, metoprolol 100 b.i.d., and lisinopril. Physical Examination: Vital Signs: His blood pressure was 145/92 with pulse of 93. Sinus rhythm, afebrile. HEENT: Negative. Neck: Supple with no bruit. Chest: Clear. Cardiac: Revealed mild mitral stenosis. Regular rhythm and rate. No gallops or rubs. Abdomen: Benign. Extremities: Revealed no clubbing, cyanosis, or edema. Diagnostic Data: His creatinine was 10.2. Hemoglobin was 10.3. His white count was normal. His ch est x-ray was normal. EKG was normal. Head, cervical spine, chest, abdomen, and pelvic CT were norm al. His echocardiogram showed a normal ejection fraction with mild mitral valve stenosis. Impression And Plan: 1.Syncope secondary to prolonged pauses up to 9 seconds. We need to discontinue his beta-ky an d observe him. 2.Mild mitral stenosis. 3.Renal failure, on hemodialysis. 4.Hypertension. 5.Diabetes. 6.Peripheral arterial disease, status post right below-knee amputation. I would continue Eliquis, h ydralazine, and lisinopril. Discontinue metoprolol. He will need echocardiography about every 1 or 2 years to monitor his mitral valve. We will see what he does as well as heart rhythm off beta-block ers. CAROLYN/KIMBERLYNL Voice ID: [id number] Report ID: [id number]
--- NOTE | 2022-04-16 12:17 | PN ---
Date of Progress Note: 04/16/2022 Mr. Maguire had come in with syncope, was found to have up to 9 second pauses. Metoprolol 100 b.i. d. was discontinued. We continued Eliquis, continued hydralazine and lisinopril. He has a history o f hemodialysis, status post right BKA, diabetes and hypertension and newly found mild mitral stenosis with normal ejection fraction by echo. As far as we are concerned, he can go home whenever it is ok ay with Nephrology and Dr. Henderson. He should continue his Eliquis, stay off beta-ky. We will monitor his heart rhythm as an outpatient. We will monitor if his syncope reoccurs. CAROLYN/PJ Voice ID: [id number] Report ID: [id number]
--- NOTE | 2022-04-16 16:26 | P.PN ---
Subjective Date of Service: 04/16/22 Chief Complaint: Syncope, hyperkalemia Subjective: No new changes Physical Examination - Vital Signs Temperature: 98.1 F Blood Pressure: 129/58 Pulse: 93 Respirations: 18 Pulse Ox (%): 98 - Physical Exam General: Alert, Oriented x3 HEENT: Atraumatic, Normocephalic Respiratory: Normal air movement Cardiovascular: Regular rate/rhythm, Normal S1 S2 Gastrointestinal: Soft and benign Musculoskeletal: No swelling, Other (right BKA.) Neurological: Normal speech, Normal strength at 5/5 x4 extr Assessment And Plan - Plan Assessment: ESRD on HD MWF with hyperkalemia/noncompliance Syncope Diabetes type 2insulin-dependent Hypertension Plan: ESRD on HD MWF with hyperkalemia/noncompliance: Nephrology following for dialysis needs while admitted. We will follow potassium levels closely. Syncope: No new issues. cardiology following for management. Diabetes type 2insulin-dependent: Carb restericted diet to be continued. ACHS, Accu-Checks, sliding scale insulin to be continued. Hypertension: Blood pressure control to be continued. DVT PPX: Heparin. Code status: Full Awaiting outpt dialysis chair placement.
--- NOTE | 2022-04-16 21:51 | ER ---
Date of Visit: 04/16/2022 Subjective: Patient is seen at the bedside. No overnight events reported. The patient feels well. Denies any fevers, chills, chest pain, shortness of breath, nausea, vomiting, or diarrhea. Objective: Vital Signs: Blood pressure is 129/58, pulse is 93, afebrile, blood pressure has been la bile from 150s to 170s. General: No acute distress. Heart: Regular rate and rhythm. No murmurs, rubs, gallops. Lungs: Grossly clear. Abdomen: Soft, nontender, nondistended. Extremities: No significant edema. Laboratory Data: CBC reviewed. Serum chemistry, potassium 3.9, BUN and creatinine 41/8.59, albumin 2.9. Current Medications: Reviewed. Impression: 1.End-stage renal disease, on hemodialysis. 2.Hypertension. 3.Anemia in the setting of chronic kidney disease. 4.Nonadherence to dialysis. Plan: The patient is stable from electrolyte standpoint. The patient has not been placed on new haris lysis changes; however, the patient is agreeable to resuming dialysis at his own location and pursuin g this in the outpatient setting. If that is the case, the patient is otherwise stable from a renal perspective. /MODL Voice ID: [id number] Report ID: [id number]
[2022-04-16] MEDS ORDERED: MORPHINE 2 MG/ML SYR IV ONE (23:14)
[2022-04-17] MEDS: PANTOPRAZOLE 40MG TABLET PO SCH (06:11)
[2022-04-17] MEDS: FENTANYL CITR 100 MCG/2 ML IV PRN ×3 (06:43→20:20)
[2022-04-17] MEDS: INSULIN -REGULAR HUMAN 50 UNIT/0.5 ML ML SQ SCH ×4 (07:30→20:24)
[2022-04-17] MEDS ORDERED: DOXAZOSIN 2 MG TAB ONE (08:38)
[2022-04-17] MEDS: DOXAZOSIN 4 MG TAB PO SCH ×2 (09:00→20:23)
[2022-04-17] MEDS: lisinopriL 20 MG TAB PO SCH ×2 (09:22→20:24)
[2022-04-17] MEDS: clonazePAM 1 MG TAB PO SCH ×2 (09:23→20:24)
[2022-04-17] MEDS: APIXABAN 2.5 MG TABLET PO SCH ×2 (09:23→20:24)
[2022-04-17] MEDS: HYDRALAZINE HCL 25 MG TABLET PO SCH ×3 (09:23→20:23)
[2022-04-17] MEDS: VITAMIN D 1000 UNIT TAB PO SCH (09:23)
--- NOTE | 2022-04-17 12:40 | PN ---
Date of Progress Note: 04/17/2022 Subjective: The patient is seen at bedside. No events reported. The patient feels well. He denies any fevers, chills, chest pain, shortness of breath, nausea, vomiting, or diarrhea. Objective: Vital Signs: Blood pressure 139/65, pulse 86, afebrile. General: No acute distress. Heart: Regular rate and rhythm. No murmurs, rubs, gallops. Lungs: Grossly clear. Abdomen: Soft, nontender, nondistended. Extremities: With no significant edema. Amputated state noted. Current medications were reviewed. Impression: 1.End-stage renal disease, on hemodialysis. 2.Social issues with placement of a new dialysis facility. 3.Hypertension. Plan: The patient is stable from volume electrolyte standpoint. We will continue Monday, Monday, Monday dialysis. The patient does need Social Work consultation to complete placement for patient at [facility] under Dr. Roca. The patient's prior unit was in [facility] and the patient is not going back to his old unit. SE/MODL Voice ID: [id number] Report ID: [id number]
--- NOTE | 2022-04-17 15:11 | P.PN ---
Subjective Date of Service: 04/17/22 Chief Complaint: Syncope, hyperkalemia Subjective: No new changes Physical Examination - Vital Signs Temperature: 97.4 F Blood Pressure: 146/72 Pulse: 89 Respirations: 16 Pulse Ox (%): 96 - Physical Exam General: Alert, Oriented x3 HEENT: Atraumatic, Normocephalic Neck: Supple Respiratory: Normal air movement Cardiovascular: Regular rate/rhythm, Normal S1 S2 Gastrointestinal: Soft and benign Musculoskeletal: No swelling Neurological: Normal speech Assessment And Plan - Plan Assessment: ESRD on HD MWF with hyperkalemia/noncompliance Syncope Diabetes type 2insulin-dependent Hypertension Plan: ESRD on HD MWF with hyperkalemia/noncompliance: Nephrology following for dialysis needs while admitted. We will follow potassium levels closely. Syncope: No new issues. cardiology following for management. Diabetes type 2insulin-dependent: Carb restricted diet to be continued. ACHS, Accu-Checks, sliding scale insulin to be continued. Hypertension: Blood pressure control to be continued. DVT PPX: Heparin. Code status: Full Awaiting outpt dialysis chair placement.
[2022-04-17] MEDS: MORPHINE 2 MG/ML SYR IV PRN (22:20)
[2022-04-18] MEDS: MORPHINE 2 MG/ML SYR IV PRN ×6 (02:16→23:55)
[2022-04-18] MEDS: PANTOPRAZOLE 40MG TABLET PO SCH (05:54)
[2022-04-18] MEDS: INSULIN -REGULAR HUMAN 50 UNIT/0.5 ML ML SQ SCH ×4 (07:30→20:21)
[2022-04-18] MEDS ORDERED: DOXAZOSIN 2 MG TAB ONE (08:59)
[2022-04-18] MEDS: HYDRALAZINE HCL 25 MG TABLET PO SCH ×3 (09:00→20:20)
[2022-04-18] MEDS: VITAMIN D 1000 UNIT TAB PO SCH (09:00)
[2022-04-18] MEDS: DOXAZOSIN 4 MG TAB PO SCH ×2 (09:00→20:20)
[2022-04-18] MEDS: lisinopriL 20 MG TAB PO SCH ×2 (09:00→20:21)
[2022-04-18] MEDS: APIXABAN 2.5 MG TABLET PO SCH ×2 (09:00→20:20)
[2022-04-18] MEDS: clonazePAM 1 MG TAB PO SCH ×2 (09:00→20:20)
[2022-04-18] MEDS: HYDRALAZINE HCL 20 MG/ML VIAL IV PRN (18:20)
[2022-04-19] MEDS: MORPHINE 2 MG/ML SYR IV PRN (04:13)
[2022-04-19 04:26] VITALS: O2SAT 98
[2022-04-19] MEDS: PANTOPRAZOLE 40MG TABLET PO SCH (05:48)
[2022-04-19] MEDS: INSULIN -REGULAR HUMAN 50 UNIT/0.5 ML ML SQ SCH (07:30)
[2022-04-19] MEDS: HYDRALAZINE HCL 25 MG TABLET PO SCH (08:44)
[2022-04-19] MEDS: lisinopriL 20 MG TAB PO SCH (08:44)
[2022-04-19] MEDS: APIXABAN 2.5 MG TABLET PO SCH (08:44)
[2022-04-19] MEDS: clonazePAM 1 MG TAB PO SCH (08:45)
[2022-04-19] MEDS: DOXAZOSIN 4 MG TAB PO SCH (08:45)
[2022-04-19] MEDS: VITAMIN D 1000 UNIT TAB PO SCH (08:45)
[2022-04-19 08:46] VITALS: BP 167/84
[2022-04-19] MEDS ORDERED: DOXAZOSIN 2 MG TAB ONE (08:50)
[2022-04-19 09:07] VITALS: TEMP 97.9
--- NOTE | 2022-04-19 18:32 | P.PN ---
Date of Service: 04/18/22 Vital Signs Temp Pulse Resp BP Pulse Ox 97.9 F 92 H 16 167/84 H 97 04/19/22 08:00 04/19/22 08:45 04/19/22 08:00 04/19/22 08:45 04/19/22 08:00 Assessment/ Plan: Nephrology No dyspnea No chest pain Feeling better No acute events overnight Vitals, medications, blood work and imaging reviewed in the chart. NAD. NCAT. MMM. Neck supple. Normal respiratory effort. RRR. Abd ND. No C/C/E. No rash. AAO. Normal speech. BL BKA. ESRD -HD TIW HTN with CKD/ CHF -Continue Metoprolol and Doxazosin Diastolic CHF, chronic -Low sodium diet -Continue Lisinopril DM II with CKD & Polyneuropathy -RISS Anemia in CKD -Retacrit prn CKD MBD -Continue Vitamin D
== END 2022-04-19 09:10 | disposition home or self-care (01) | DRG 640 ==
LOC: ER 18:09 → ERHOLD 22:01 → 2ND 23:45 → OBSVTOIN 04-14 21:04
PROVIDERS: ADMIT Internal Medicine Nephrology; ATTEND Hospitalist
PROC: 5A1D70Z Performance of Urinary Filtration, Intermittent, Less than 6 Hours Per Day (ICD-10-PCS; principal; 2022-04-14)
PROC: 5A1D70Z Performance of Urinary Filtration, Intermittent, Less than 6 Hours Per Day (ICD-10-PCS; 2022-04-15)
PROC: 5A1D70Z Performance of Urinary Filtration, Intermittent, Less than 6 Hours Per Day (ICD-10-PCS; 2022-04-18)
DX: E87.5 Hyperkalemia (principal); N18.6 End stage renal disease; I12.0 Hypertensive chronic kidney disease with stage 5 chronic kidney disease or end stage renal disease; R55 Syncope and collapse; E11.22 Type 2 diabetes mellitus with diabetic chronic kidney disease; E11.51 Type 2 diabetes mellitus with diabetic peripheral angiopathy without gangrene; I05.0 Rheumatic mitral stenosis; D63.1 Anemia in chronic kidney disease; M06.9 Rheumatoid arthritis, unspecified; Z99.2 Dependence on renal dialysis; Z91.15 Patient's noncompliance with renal dialysis; Z89.511 Acquired absence of right leg below knee; Z85.528 Personal history of other malignant neoplasm of kidney; Z90.5 Acquired absence of kidney; Z96.659 Presence of unspecified artificial knee joint; Z89.422 Acquired absence of other left toe(s); Z20.822 Contact with and (suspected) exposure to COVID-19
CPT/HCPCS: 36415; 70450; 71045; 71250; 72125; 80048; 80053; 80076; 82947; 83735; 83880; 84484; 85025; 85610; 85730; 86705; 86706; 86803; 87340; 90935; 93005; 93306; 96365; 96366; 96375; 99285; G0378; J0360; J1170; J1644; J1815; J2270; J3010; J7060; U0003

== ENCOUNTER 2022-05-06 16:04 | Observation (INO) | payer OTHER ==
[2022-05-06 16:37] LABS: Absolute Lymphocytes (CBC) 1.3 K/uL (0.7-4.9); Hematocrit 31.1 % (39.6-49.0); Lymphocytes % 21.6 % (15.3-44.8); MCV 85.8 fL (80-100); RBC Red Blood Cell Count 3.62 M/uL (4.33-5.43)
[2022-05-06 16:41] LABS: Protime INR 0.92
[2022-05-06 16:59] LABS: ALT/SGPT 26 U/L (12-78); AST/SGOT 22 U/L (15-37); Albumin 3.2 g/dL (3.4-5.0); Alkaline Phosphatase 125 U/L (45-117); BUN Blood Urea Nitrogen 32 mg/dL (7-18); Bicarbonate 28 mmol/L (21-32); Bilirubin Total 0.3 mg/dL (0.2-1.0); Glomerular Filtration Rate 9 ml/min (=/>90); Glucose Level 90 mg/dL (74-106); Magnesium 2.2 mg/dL (1.8-2.4); NT PRO-BNP 28353 pg/mL (<125); Protein, Total 6.6 g/dL (6.4-8.2); Sodium Level 139 mmol/L (136-145); Troponin High Sensitivity 16.4 pg/mL (<58.9)
[2022-05-06 17:00] LABS: Bilirubin Direct < 0.1 mg/dL (0-0.2)
[2022-05-06] MEDS ORDERED: ACETAMINOPHEN 325 MG TABLET ONE (17:41)
--- NOTE | 2022-05-06 17:41 | RAD REPORT ---
EXAM DESCRIPTION: CT - Head C Spine Mpr Wo Con - 05/06/2022 5:20 pm CLINICAL HISTORY: Syncope .Head and neck injury status post fall. Head and neck pain COMPARISON: 2017 TECHNIQUE: Computed axial tomography of the head and cervical spine was obtained. Sagittal and coronal reconstruction was performed. All CT scans are performed using dose optimization technique as appropriate and may include automated exposure control or mA/KV adjustment according to patient size. FINDINGS: An intracranial bleed is not seen. The ventricles are normal in caliber. An extra-axial fl uid collection is not noted.Fluid within the visualized sinuses and mastoids is not seen A cervical fracture is not visualized. No dislocation is noted. Plate, screws and bone plugs diffuse C6 and C7. The anterior screw within the C6 vertebral body is br oken. Lucencies within the region of the right facet joint C4-5 IMPRESSION: No acute intracranial abnormality is seen. A cervical fracture is not visualized. C6 anterior screw is broken Lucencies within the region of the right facet joint C4-5 probably degenerative in nature. A followup CT scan in 3 months recommended for re-evaluation If the patient continues to have symptoms to suggest intracranial/spinal canal/cord pathology MRI wou ld be recommended
[2022-05-06] MEDS ORDERED: FENTANYL CITR 100 MCG/2 ML ONE (17:42)
--- NOTE | 2022-05-06 17:51 | RAD REPORT ---
EXAM DESCRIPTION: Jayson Single View05/06/2022 4:29 pm CLINICAL HISTORY: Syncope with chest pain COMPARISON: 2019 FINDINGS: The lungs appear clear of acute infiltrate. The heart is normal size Chronic elevation left hemidiaphragm IMPRESSION: No acute abnormalities displayed
--- NOTE | 2022-05-06 19:56 | ER ---
Nurse's Notes [facility] Name: Vladimir Maguire Age: 51 yrs Sex: Male : 1970 Arrival Date: 05/06/2022 Time: 16:09 Bed 20 Private MD: Diagnosis: Syncope;Chest Pain Presentation: 05/06 16:05 Chief complaint: EMS states: Pt had dialysis today, they took double the amount off, jl7 was sitting in a chair and had a syncopal episode, fell and hit head against wall, c/o headache and neck pain, chest pain started after syncopal episode. 16:05 Coronavirus screen: Vaccine status: Patient reports receiving the 2nd dose of the covid jl7 vaccine. At this time, the client does not indicate any symptoms associated with coronavirus-19. Ebola Screen: No symptoms or risks identified at this time. Initial Sepsis Screen: Does the patient meet any 2 criteria? No. Patient's initial sepsis screen is negative. Does the patient have a suspected source of infection? No. Patient's initial sepsis screen is negative. Risk Assessment: Do you want to hurt yourself or someone else? Patient reports no desire to harm self or others. Onset of symptoms was May 06, 2022 at 15:45. 16:05 Method Of Arrival: EMS: [facility] jl7 16:05 Acuity: GINA 2 jl7 16:05 Care prior to arrival: IV initiated. 20 GA, in the right antecubital area. Mechanism of jl7 Injury: Fall out of chair. Trauma event details: Injury occurred in the [facility], Injury occurred: at home. Injury occurred: May 06, 2022 Injury occurred at: 15:45. Trauma Activation: Alert Physician: ED Physician; Name: Harper; Notified At: 16:05; Arrived At: 16:05 Physician: General Surgeon; Name: ; Notified At: 16:05; Arrived At: Physician: Radiology; Name: ; Notified At: 16:05; Arrived At: Physician: Respiratory; Name: ; Notified At: 16:05; Arrived At: Physician: Lab; Name: ; Notified At: 16:05; Arrived At: Historical: - Allergies: 16:33 Ativan; jl7 - Home Meds: 16:33 lisinopril Oral [Active]; Hydrocodone-Acetaminophen Oral [Active]; Metoprolol Tartrate jl7 Oral [Active]; Eliquis oral [Active]; - PMHx: 16:33 Diabetes - NIDDM; Hypertension; neuropathy; Renal Disease; Rheumatoid Arthritis; jl7 - PSHx: 16:33 dialysis site to left arm; RIGHT BKA; jl7 - Immunization history: Last tetanus immunization: unknown. - Social history:: Smoking status: Patient reports the use of cigarette tobacco products, smokes one-half pack cigarettes per day. Screenin:05 Abuse screen: Denies threats or abuse. Denies injuries from another. Tuberculosis jl7 screening: No symptoms or risk factors identified. 16:55 Nutritional screening: No deficits noted. Fall Risk IV access (20 points). rutherford Primary Survey: 16:05 NO uncontrolled hemorrhage observed. A: The client is alert. Airway: patent. jl7 Breathing/Chest: Respiratory effort: spontaneous, unlabored, Breath sounds: clear, bilaterally. Respiratory pattern: regular, Chest inspection: symmetrical rise and fall of the chest. Circulation: Hemorrhage: No external hemorrhage noted. Pulses: palpable right radial artery and left radial artery. Skin color: pink, Skin temperature: warm, Heart tones present. Disability Client is alert. Exposure/Environment: There is no evidence of uncontrolled external bleeding. No obvious injuries are noted at this time. A warming method has been applied: A warm blanket has been provided to the patient. 16:57 Reassessment Breathing: Spontaneous respiratory effort, equal unlabored respirations, rutherford breath sounds clear bilaterally, regular pattern with symmetrical chest rise and fall. Respiratory effort Spontaneous. Assessment: 16:05 General: Appears in no apparent distress. uncomfortable, Behavior is calm, cooperative, jl7 appropriate for age. Pain: Complains of pain in chest and neck Pain currently is 7 out of 10 on a pain scale. 16:55 Neuro: No deficits noted. Level of Consciousness is awake, alert, obeys commands, rutherford Oriented to person, place, time, situation. Cardiovascular: Reports chest pain, fatigue, lightheadedness, syncope. 19:15 Reassessment: Patient and/or family updated on plan of care and expected duration. Pain fu level reassessed. Patient is alert, oriented x 3, equal unlabored respirations, skin warm/dry/pink. 20:00 Reassessment: Patient and/or family updated on plan of care and expected duration. Pain fu level reassessed. Patient is alert, oriented x 3, equal unlabored respirations, skin warm/dry/pink. 20:47 Reassessment: No changes from previously documented assessment. Patient and/or family fu updated on plan of care and expected duration. Pain level reassessed. Patient is alert, oriented x 3, equal unlabored respirations, skin warm/dry/pink. 21:44 Reassessment: No changes from previously documented assessment. Patient and/or family fu updated on plan of care and expected duration. Pain level reassessed. assisted to the restroom. Vital Signs: 16:05 BP 102 / 83; Pulse 85; Resp 17; Temp 98.4; Pulse Ox 99% on R/A; Weight 102.06 kg; jl7 Height 5 ft. 10 in. (177.80 cm); Pain 7/10; 16:05 BP 102 / 83; Pulse 85; Resp 17; Temp 98.4; Pulse Ox 99% on R/A; Weight 102.06 kg (R); jl7 Height 5 ft. 10 in. (177.80 cm); Pain 7/10; 16:54 BP 107 / 66; Pulse 84; Resp 17; Pulse Ox 100% on R/A; rutherford 18:19 BP 127 / 77; Pulse 75; Resp 18; Pulse Ox 97% on R/A; rutherford 19:10 BP 149 / 86 Supine; Pulse 71; rutherford 19:12 BP 147 / 83 Sitting; Pulse 71; rutherford 19:13 BP 117 / 79 Standing; Pulse 77; rutherford 20:45 BP 152 / 94; Pulse 70; Resp 15; Pulse Ox 100% on R/A; fu 21:42 BP 140 / 70; Pulse 70; Resp 12; Temp 97.6; Pulse Ox 100% on R/A; Pain 6/10; fu 16:05 Body Mass Index 32.28 (102.06 kg, 177.80 cm) jl7 Marichuy Coma Score: 16:05 Eye Response: spontaneous(4). Verbal Response: oriented(5). Motor Response: obeys jl7 commands(6). Total: 15. Trauma Score (Adult): 16:05 Eye Response: spontaneous(1); Verbal Response: oriented(1); Motor Response: obeys jl7 commands(2); Systolic BP: > 89 mm Hg(4); Respiratory Rate: 10 to 29 per min(4); [place] Score: 15; Trauma Score: 12 ED Course: 16:05 Patient has correct armband on for positive identification. Placed in gown. Bed in low jl7 position. Call light in reach. Side rails up X2. 16:05 Patient maintains SpO2 saturation greater than 95% on room air. Thermoregulation: warm jl7 blanket given to patient. 16:09 Patient arrived in ED. eb 16:10 Elliott Angel PA is PHCP. jmm 16:10 Espinoza Saleem MD is Attending Physician. jmm 16:15 Luba Dugan, RN is Primary Nurse. rutherford 16:28 Triage completed. jl7 16:31 XRAY Chest (1 view) In Process Unspecified. EDMS 16:33 Arm band placed on right wrist. jl7 16:54 No provider procedures requiring assistance completed. Maintain EMS IV. Gauge \\T\\ site: rutherford 20g RAC. 17:22 CT Head C Spine In Process Unspecified. EDMS 19:26 Eliecer Box, NINA is Primary Nurse. fu 19:55 Lana Moise MD is Hospitalizing Provider. [facility] 19:59 Ivan Minaya is Hospitalizing Provider. jmm 20:13 COVID-19 SARS RT PCR (Document "Date of Onset" if Symptomatic) Sent. zm 20:15 COVID swab sent to lab. fu 21:44 Patient admitted, IV remains in place. fu Administered Medications: 17:41 Drug: Acetaminophen 650 mg Route: PO; rutherford 17:41 Follow up: Response: No adverse reaction rutherford 17:41 Drug: fentaNYL (PF) 25 mcg Route: IVP; Site: right antecubital; rutherford 17:41 Follow up: Response: No adverse reaction rutherford Medication: 16:55 VIS not applicable for this client. rutherford Intake: 16:57 PO: 0ml; Total: 0ml. rutherford Outcome: 19:56 Decision to Hospitalize by Provider. jmm 21:43 Admitted to Tele accompanied by tech, room 407, Report called to NINA Moscoso fu 21:43 Condition: unchanged 21:43 Instructed on the need for admit, Demonstrated understanding of instructions. 22:03 Patient left the ED. lp1 Signatures: Dispatcher [employer] EDMS Elliott Angel PA PA jmm Pena, Laura, RN RN lp1 Bebe Glasgow RN RN jl7 Eliecer Box RN Janie Obando Heather, RN RN ha Martinez, Zaina zm
--- NOTE | 2022-05-06 19:56 | EDPHYS ---
Physician Documentation [facility] Name: Vladimir Maguire Age: 51 yrs Sex: Male : 1970 Arrival Date: 05/06/2022 Time: 16:09 Bed 20 Private MD: ED Physician Espinoza Saleem HPI: 05/06 16:12 This 51 yrs old Male presents to ER via EMS with complaints of syncope. [facility] 16:12 The patient has experienced syncope, collapsed. Onset: The symptoms/episode jmm began/occurred acutely, just prior to arrival. This is a 51 year old male with a history of ESRD, HTN, DM that presents to the ED with complaints of syncope, chest pain. Symptoms were witnessed by the patient's brother while he was sitting on a couch. Patient collapsed en route as well. Similar symptoms occurred approx 1 month ago. . Historical: - Allergies: 16:33 Ativan; jl7 - Home Meds: 16:33 lisinopril Oral [Active]; Hydrocodone-Acetaminophen Oral [Active]; Metoprolol Tartrate jl7 Oral [Active]; Eliquis oral [Active]; - PMHx: 16:33 Diabetes - NIDDM; Hypertension; neuropathy; Renal Disease; Rheumatoid Arthritis; jl7 - PSHx: 16:33 dialysis site to left arm; RIGHT BKA; jl7 - Immunization history: Last tetanus immunization: unknown. - Social history:: Smoking status: Patient reports the use of cigarette tobacco products, smokes one-half pack cigarettes per day. ROS: 16:12 Constitutional: Negative for fever, chills, and weight loss. [facility] 16:12 Cardiovascular: Positive for chest pain. 16:12 Neuro: Positive for syncope. 16:12 All other systems are negative. Exam: 16:12 Abdomen/GI: Inspection: abdomen appears normal, Bowel sounds: normal, Palpation: [facility] abdomen is soft and non-tender, in all quadrants. 16:12 Constitutional: This is a well developed, well nourished patient who is awake, alert, and in no acute distress. Head/Face: atraumatic. Eyes: EOMI, no conjunctival erythema appreciated ENT: Moist Mucus Membranes Neck: Trachea midline, Supple Chest/axilla: Normal chest wall appearance and motion. 16:12 Cardiovascular: Rate: normal, Rhythm: regular. 16:12 Respiratory: the patient does not display signs of respiratory distress, Respirations: normal, Breath sounds: are clear throughout. 16:12 Musculoskeletal/extremity: BKA noted to the right leg, no edema appreciated to the left leg. 16:12 Skin: Appearance: Color: normal in color. 16:12 Neuro: Orientation: is normal, Mentation: is normal, Memory: is normal. 16:12 Psych: Behavior/mood is pleasant, cooperative. Vital Signs: 16:05 BP 102 / 83; Pulse 85; Resp 17; Temp 98.4; Pulse Ox 99% on R/A; Weight 102.06 kg; jl7 Height 5 ft. 10 in. (177.80 cm); Pain 7/10; 16:05 BP 102 / 83; Pulse 85; Resp 17; Temp 98.4; Pulse Ox 99% on R/A; Weight 102.06 kg (R); jl7 Height 5 ft. 10 in. (177.80 cm); Pain 7/10; 16:54 BP 107 / 66; Pulse 84; Resp 17; Pulse Ox 100% on R/A; rutherford 18:19 BP 127 / 77; Pulse 75; Resp 18; Pulse Ox 97% on R/A; rutherford 19:10 BP 149 / 86 Supine; Pulse 71; rutherford 19:12 BP 147 / 83 Sitting; Pulse 71; rutherford 19:13 BP 117 / 79 Standing; Pulse 77; rutherford 20:45 BP 152 / 94; Pulse 70; Resp 15; Pulse Ox 100% on R/A; fu 21:42 BP 140 / 70; Pulse 70; Resp 12; Temp 97.6; Pulse Ox 100% on R/A; Pain 6/10; fu 16:05 Body Mass Index 32.28 (102.06 kg, 177.80 cm) jl7 Marichuy Coma Score: 16:05 Eye Response: spontaneous(4). Verbal Response: oriented(5). Motor Response: obeys jl7 commands(6). Total: 15. Trauma Score (Adult): 16:05 Eye Response: spontaneous(1); Verbal Response: oriented(1); Motor Response: obeys jl7 commands(2); Systolic BP: > 89 mm Hg(4); Respiratory Rate: 10 to 29 per min(4); Marichuy Score: 15; Trauma Score: 12 MDM: 16:12 Patient medically screened. [facility] 19:51 Data reviewed: vital signs, nurses notes. Counseling: I had a detailed discussion with [facility] the patient and/or guardian regarding: the historical points, exam findings, and any diagnostic results supporting the discharge/admit diagnosis, lab results, radiology results, the need for further work-up and treatment in the hospital. ED course: I discussed the patient with Meka Pike whom accepted the patient to her service. . 05/06 16:13 Order name: Basic Metabolic Panel; Complete Time: 17:15 [facility] 05/06 16:13 Order name: CBC with Diff; Complete Time: 16:45 [facility] 05/06 16:13 Order name: LFT's; Complete Time: 17:15 [facility] 05/06 16:13 Order name: Magnesium; Complete Time: 17:15 [facility] 05/06 16:13 Order name: NT PRO-BNP; Complete Time: 17:15 [facility] 05/06 16:13 Order name: PT-INR; Complete Time: 16:59 [facility] 05/06 16:13 Order name: Troponin HS; Complete Time: 17:15 [facility] 05/06 16:13 Order name: XRAY Chest (1 view); Complete Time: 17:53 [facility] 05/06 16:13 Order name: EKG; Complete Time: 16:14 [facility] 05/06 16:13 Order name: Cardiac monitoring; Complete Time: 16:23 [facility] 05/06 16:13 Order name: CT Head C Spine; Complete Time: 17:44 [facility] 05/06 19:57 Order name: COVID-19 SARS RT PCR (Document "Date of Onset" if Symptomatic); Complete lp1 Time: 21:09 05/06 16:13 Order name: EKG - Nurse/Tech; Complete Time: 16:23 [facility] 05/06 16:13 Order name: IV Saline Lock; Complete Time: 16:23 [facility] 05/06 16:13 Order name: Labs collected and sent; Complete Time: 16:23 [facility] 05/06 16:13 Order name: O2 Per Protocol; Complete Time: 16:23 [facility] 05/06 16:13 Order name: O2 Sat Monitoring; Complete Time: 16:23 [facility] 05/06 19:06 Order name: Orthostatic Blood Pressure; Complete Time: 19:21 [facility] Administered Medications: 17:41 Drug: Acetaminophen 650 mg Route: PO; rutherford 17:41 Follow up: Response: No adverse reaction ruther[place] 17:41 Drug: fentaNYL (PF) 25 mcg Route: IVP; Site: right antecubital; rutherford 17:41 Follow up: Response: No adverse reaction rutherford Disposition: 05/07 07:40 Co-signature as Attending Physician, Espinoza Saleem MD I agree with the assessment and kdr plan of care. Disposition Summary: 05/06/22 19:56 Hospitalization Ordered Hospitalization Status: Observation jm Location: Telemetry/MedSurg (observation) jmm Condition: Stable jmm Problem: new jmm Symptoms: are unchanged jmm Bed/Room Type: Standard [facility] Provider: Ivan Minaya(05/06/22 19:59) rohan Room Assignment: [facility](05/06/22 21:21) ll3 Diagnosis - Syncope jmm - Chest Pain jmm Forms: - Medication Reconciliation Form jmm - SBAR form jmm Signatures: Dispatcher [employer] EDMS Espinoza Saleem MD MD [facility] Elliott Angel PA PA [facility] Bebe Glasgow RN RN jl7 Kalen Bryant RN RN ll3 Luba Dugan RN RN rutherford Corrections: (The following items were deleted from the chart) 05/06 19:59 19:56 Lana Moise [facility] 21:21 19:56 rohan ll3
--- NOTE | 2022-05-06 20:43 | P.HP ---
Certification for Inpatient Patient admitted to: Observation With expected LOS: <2 Midnights Patient will require the following post-hospital care: None Practitioner: I am a practitioner with admitting privileges, knowledge of patient current condition, hospital course, and medical plan of care. Services: Services provided to patient in accordance with Admission requirements found in Title 42 Section 412.3 of the Code of Federal Regulations Patient History Date of Service: 05/06/22 Reason for admission: Syncope History of Present Illness: Patient is a 51-year-old male with PMH of ESRD on HD MWF, IDDM, and hypertension who presented to the ED for syncope x2. Patient reports he was receiving dialysis when he had a syncopal episode and fell onto the ground on his head/neck/shoulder. He reports they removed more fluid than they typically do. He had a 2nd syncopal episode in the car in route to the ED. Labs were significant for BUN 32, Cr 7, hgb 10.2, BNP [address]. CT head/C- spine/chest/abdomen/pelvis negative for acute findings. Patient was admitted here 3 weeks ago for 2 syncopal episodes. He was evaluated by cardiology with echocardiogram who recommended discontinuation of beta ky. Patient reports that he was not told to change any medications and has continued to take hydralazine, metoprolol, and lisinopril. 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 He states that his BP has been ok at home. Orthostatic vitals here WNL. Patient is admitted for observation. Allergies lorazepam [From Ativan] Allergy (Verified 04/14/22 00:33) Hives/Rash Home medications list reviewed: Yes Home Medications: Amitriptyline HCl 50 mg PO BEDTIME PRN PRN 04/14/22 Apixaban [Eliquis *] 2.5 mg PO BID 04/14/22 Difluprednate [Durezol] 1 drop EACH EYE BID 04/14/22 Doxazosin [Cardura*] 4 mg PO BID 04/14/22 Hydralazine HCl 50 mg PO TID 04/14/22 Lanthanum Carbonate 1 tab PO PC 04/14/22 Lisinopril [Zestril] 20 mg PO BID 04/14/22 Metoprolol Tartrate [Lopressor] 100 mg PO BID 04/14/22 Omeprazole [Prilosec] 40 mg PO DAILY 04/14/22 clonazePAM [Clonazepam] 1 mg PO BID 04/14/22 Cholecalciferol (Vitamin D3) [Vitamin D 1000 Iu Tab*] 1,000 unit PO DAILY #30 tab 04/18/22 Hydrocodone 7.5/APAP 325 [[place] 7.5/325 mg*] 1 tab PO Q6H PRN #30 tab 04/18/22 - Past Medical/Surgical History Diabetic: Yes -: HTN -: rheumatoid arthritis -: ESRD on HD -: kidney cancer -: Type 2 diabetes -: total knee replacement -: L little toe amputation -: BKA R -: upper neck fusion with broken screws -: wrist surgery -: R nephrectomy -: left hand urgery Psychosocial/ Personal History: Patient is . He has a brother and a son. - Family History Mother -: Other (see notes) Notes: no known medical history - Social History Smoking Status: Current every day smoker Alcohol use: No CD- Drugs: Yes Caffeine use: Yes Place of Residence: Home Review of Systems General: Weakness Musculoskeletal: Neck Pain, Back Pain Physical Examination - Physical Exam General: Alert, In no apparent distress HEENT: Atraumatic, PERRLA, EOMI, Sclerae nonicteric Neck: Supple, 2+ carotid pulse no bruit, No LAD, Without JVD or thyroid abnormality Respiratory: Clear to auscultation bilaterally, Normal air movement Cardiovascular: Regular rate/rhythm, Normal S1 S2 Gastrointestinal: Normal bowel sounds, No tenderness Musculoskeletal: Tenderness (back of neck and R shoulder) Integumentary: No rashes Neurological: Normal speech, Sensation intact, Normal affect - Studies Laboratory Data (last 24 hrs) 05/06/22 16:20: PT 11.0, INR 0.92 05/06/22 16:20: WBC 5.8, Hgb 10.3 L, Hct 31.1 L, Plt Count 161 05/06/22 16:20: Sodium 139, Potassium 4.0, BUN 32 H, Creatinine 6.96 H*, Glucose 90, Magnesium 2.2, Total Bilirubin 0.3, AST 22, ALT 26, Alkaline Phosphatase 125 H Assessment and Plan - Problems (Diagnosis) (1) Syncope and collapse Current Visit: Yes Status: Acute (2) DM2 (diabetes mellitus, type 2) Current Visit: Yes Status: Chronic Qualifiers: Diabetes mellitus prison insulin use: without intermediate accountant use Diabetes mellitus complication status: with kidney complications Diabetes mellitus complication detail: with chronic kidney disease Chronic kidney disease stage: on chronic dialysis Qualified Code(s): E11.22 - Type 2 diabetes mellitus with diabetic chronic kidney disease; N18.6 - End stage renal disease; Z99.2 - Dependence on renal dialysis (3) End stage renal disease Current Visit: Yes Status: Chronic (4) Hypertension Current Visit: Yes Status: Chronic Qualifiers: Hypertension type: primary hypertension Qualified Code(s): I10 - Essential (primary) hypertension (5) Tobacco abuse Current Visit: Yes Status: Chronic - Plan Syncope and collapse: likely secondary to volume depletion but BP is WNL. Orthostatics also ok. Had a similar episode about 3 weeks ago in which cardiology instructed him to DC beta ky but patient has still been taking all medications. Echocardiogram without abnormalities. Monitor on telemetry overnight. Cardiology consulted. Patient is having some pain in his neck/shoul jane where he fell. Morphine PRN. ESRD on HD: Patient received HD today. Potassium WNL. Cr and BNP elevated as expected. Nephrology consulted. Renal diet NIDDM: ACHS accu checks with mild sliding scale insulin HTN: hold beta ky but continue other home medications. Will wait for cardiology recommendation. Eliquis (home med) for VTE ppx Full code Discharge Plan: Home Plan to discharge in: 24 Hours - Advance Directives Does patient have a Living Will: No Does patient have a Durable POA for Healthcare: No - Code Status/Comfort Care Code Status Assessed: Yes (Full) Critical Care: No Time Spent Managing Pts Care (In Minutes): 50
[2022-05-06] MEDS ORDERED: APIXABAN 5 MG TABLET PO SCH (22:15)
[2022-05-06] MEDS ORDERED: ONDANSETRON 4 MG/2 ML VIAL IV PRN (22:15)
[2022-05-06] MEDS: INSULIN -REGULAR HUMAN 50 UNIT/0.5 ML ML SQ SCH (22:15)
[2022-05-06 22:23] VITALS: BMI 29.4
[2022-05-06] MEDS: MORPHINE 4 MG/ML SYR IV PRN (22:25)
[2022-05-06] MEDS: ACETAMINOPHEN 500 MG TAB PO PRN (22:25)
[2022-05-06] MEDS ORDERED: ZOLPIDEM TARTRATE 5 MG TABLET PO PRN (22:35)
[2022-05-06 22:42] VITALS: O2SAT 100
[2022-05-07] MEDS: MORPHINE 4 MG/ML SYR IV PRN ×2 (02:15→06:10)
[2022-05-07] MEDS: ACETAMINOPHEN 500 MG TAB PO PRN (02:15)
[2022-05-07] MEDS ORDERED: CYCLOBENZAPRINE 10 MG TAB PO ONE (04:09)
[2022-05-07 04:35] LABS: Absolute Lymphocytes (CBC) 1.7 K/uL (0.7-4.9); Lymphocytes % 26.8 % (15.3-44.8); MCV 89.3 fL (80-100); MPV 8.7 fL (7.6-11.3); RBC Red Blood Cell Count 3.92 M/uL (4.33-5.43)
[2022-05-07 04:55] LABS: Magnesium 2.2 mg/dL (1.8-2.4); Potassium 4.4 mmol/L (3.5-5.1); Thyroid Stimulating Hormone 2.86 uIU/mL (0.360-3.740)
[2022-05-07] MEDS: INSULIN -REGULAR HUMAN 50 UNIT/0.5 ML ML SQ SCH (07:30)
--- NOTE | 2022-05-07 08:35 | P.DS ---
Admission Date: 05/06/22 Discharge Date: 05/07/22 (Hospitalist) Disposition: ROUTINE DISCHARGE Discharge Condition: GOOD Reason for Admission: Syncope Brief History of Present Illness: Patient is 51 years of age admitted with syncopal attack after dialysis Hospital Course: Patient was admitted for observation he is doing much better he denies any chest pain shortness of breath sinus rhythm 82 patient on telemetry reviewed with telemetry AAbhilash tach there is been no arrhythmias or bradycardias while during his stay he denies any complaints no weakness of his extremities no chest pain or shortness of breath chest x-ray is clear discharge Vital Signs/Physical Exam: Temp Pulse Resp BP Pulse Ox 97.4 F 65 16 147/70 H 100 05/07/22 04:00 05/07/22 04:00 05/07/22 06:31 05/07/22 04:00 05/07/22 06:31 Laboratory Data at Discharge: WBC 6.4 K/uL (4.3-10.9) 05/07/22 04:00 Hgb 10.7 g/dL (13.6-17.9) L 05/07/22 04:00 Hct 35.0 % (39.6-49.0) L 05/07/22 04:00 Plt Count 132 K/uL (152-406) L 05/07/22 04:00 PT 11.0 SECONDS (9.2-12.8) 05/06/22 16:20 INR 0.92 05/06/22 16:20 Sodium 133 mmol/L (136-145) L 05/07/22 04:00 Potassium 4.4 mmol/L (3.5-5.1) 05/07/22 04:00 BUN 42 mg/dL (7-18) H 05/07/22 04:00 Creatinine 8.14 mg/dL (0.55-1.3) H* D 05/07/22 04:00 Glucose 81 mg/dL (74-106) 05/07/22 04:00 Magnesium 2.2 mg/dL (1.8-2.4) 05/07/22 04:00 Total Bilirubin 0.3 mg/dL (0.2-1.0) 05/06/22 16:20 AST 22 U/L (15-37) 05/06/22 16:20 ALT 26 U/L (12-78) 05/06/22 16:20 Alkaline Phosphatase 125 U/L (45-117) H 05/06/22 16:20 Triglycerides 36 mg/dL (<150) 05/07/22 04:00 Cholesterol 84 mg/dL (<200) 05/07/22 04:00 HDL Cholesterol 41 mg/dL (40-60) 05/07/22 04:00 Cholesterol/HDL Ratio 2.05 05/07/22 04:00 Home Medications: Amitriptyline HCl 50 mg PO BEDTIME PRN PRN 04/14/22 Apixaban [Eliquis *] 2.5 mg PO DAILY 04/14/22 Difluprednate [Durezol] 1 drop EACH EYE BID 04/14/22 Doxazosin [Cardura*] 4 mg PO BID 04/14/22 Hydralazine HCl 50 mg PO TID 04/14/22 Lanthanum Carbonate 1 tab PO PC 04/14/22 Lisinopril [Zestril] 20 mg PO BID 04/14/22 Metoprolol Tartrate [Lopressor] 100 mg PO BID 04/14/22 Omeprazole [Prilosec] 40 mg PO DAILY 04/14/22 clonazePAM [Clonazepam] 1 mg PO BID 04/14/22 Cholecalciferol (Vitamin D3) [Vitamin D 1000 Iu Tab*] 1,000 unit PO DAILY #30 tab 04/18/22 Hydrocodone 7.5/APAP 325 [[place] 7.5/325 mg*] 1 tab PO Q6H PRN #30 tab 04/18/22 Followup: NONE,NONE [Primary Care Provider] -
[2022-05-07 08:47] VITALS: BP 149/71; TEMP 97.7
--- NOTE | 2022-05-07 23:43 | CON ---
Date of Consultation: 05/07/2022 Reason For Consultation: Admitted to Dr. Rock on 05/06/2022 with syncope. I saw the patient on 05/07/2022. History Of Present Illness: Mr. Maguire is 51. He was in the hospital now long ago and was found to have 9 second pause, but he was taking metoprolol 100 b.i.d. This was stopped. He was supposed t o come to the office and get event monitor, but he never did. I am assuming is off the metoprolol an d he says he is off it, but he comes in with another syncopal episode, not preceded with any chest pa in or nausea or vomiting or diaphoresis. He denied PND, orthopnea, or pedal edema. Denied any palpi tation. Denied any fever or chills. So far, his BNP is 28,000, creatinine is 8.14 secondary to his hemodialysis. He has not shown any arrhythmia or pauses since he has been in the hospital. Past Medical History: Includes PAD, status post right BKA; end-stage renal disease; diabetes; hypert ension; mild mitral stenosis by echocardiography in April of 2022. Allergies: HE IS ALLERGIC TO LORAZEPAM. Medications: At home include hydralazine, Eliquis, insulin, Zestril, Elavil, and Cardura. Physical Examination: General: He is asymptomatic now. Vital Signs: Stable. Afebrile. HEENT: Negative. Neck: Supple. No bruit. Chest: Clear. Cardiac: Revealed a regular rhythm and rate with an S4 gallops. Abdomen: Benign. Extremities: Revealed, status post right BKA status. Diagnostic Data: As stated above. EKG is nonspecific. Impression And Plan: 1.Syncope. I think Mr. Maguire need to have an outpatient carotid Lexiscan and event monitor as s oon as possible and need to definitely be sure that he has not taken the beta-ky, but he can go home otherwise. 2.Peripheral arterial disease, status post right below-knee amputation. 3.End-stage renal disease, on hemodialysis that is causing his elevated BNP and creatinine. 4.Diabetes, well controlled. 5.Hypertension, well controlled. 6.Mild mitral stenosis. He should continue his Eliquis, insulin, Elavil, Cardura, hydralazine, and Zestril. We will make arrangements for him to come to the office as soon as possible. CAROLYN/PJ Voice ID: [id number] Report ID: [id number]
--- NOTE | 2022-05-10 08:05 | EKG ---
Test Date: 2022-05-06 Test Time: 16:21:57 Physical Therapist: OSMAN MEASUREMENT RESULTS: Intervals: Rate: 83 ID: [id number] QRSD: 86 QT: 380 QTc: 446 [place]: P: 39 ID: [id number] QRS: 29 T: 97 INTERPRETIVE STATEMENTS: Normal sinus rhythm Possible Left atrial enlargement T wave abnormality, consider lateral ischemia Abnormal ECG Compared to ECG 04/14/2022 23:29:34 T-wave abnormality now present Possible ischemia now present Atrial flutter no longer present Ventricular premature complex(es) no longer present ST (T wave) deviation no longer present Electronically Signed On 05-10-22 07:56:30 CDT by Giuseppe Richmond
--- OUTSIDE RECORDS SUMMARY | 2022-05-25 05:31 | XMS REPORT | Continuity of Care Document ---
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 Influenza Virus 2018-01-07 Completed Universit y of Vaccine Quad IM 3+ 00:00:00 [facility] Pneumococcal 2018-01-07 Completed University o f Polysaccharide, 00:00:00 [facility] PPSV23 (PNEUMOVAX) Branch Influenza Virus 2018-01-07 Completed Universit y of Vaccine Quad IM 3+ 00:00:00 [facility] Branch Pneumococcal 2018-01-07 Completed University o f Polysaccharide, 00:00:00 [place] [facility] PPSV23 (PNEUMOVAX) Branch Influenza Virus 2018-01-07 Completed Universit y of Vaccine Quad IM 3+ 00:00:00 [facility] Branch Pneumococcal 2018-01-07 Completed University o f Polysaccharide, 00:00:00 [place] [facility] PPSV23 (PNEUMOVAX) Branch Influenza Virus 2018-01-07 Completed Universit y of Vaccine Quad IM 3+ 00:00:00 [facility] Influenza Vaccine 2013-10-01 Completed [facility] 00:00:00 Influenza Vaccine 2013-10-01 Completed [facility] 00:00:00 Tropicamide 0.5% 2013-06-28 Completed [facility] Eye-Amanda 15ml 00:00:00 Tropicamide 0.5% 2013-06-28 Completed [facility] 15ml 00:00:00 Tropicamide 0.5% 2013-06-28 Completed [facility] 15ml 00:00:00 Tropicamide 0.5% 2013-06-28 Completed [facility] 15ml 00:00:00 PPV 23 Pneumococcal 2013-03-29 Completed [facility] Polysaccaride 00:00:00 PPV 23 Pneumococcal 2013-03-29 Completed [facility] Polysaccaride 00:00:00 Vital Signs Vital Name Observation Time Observation Value Comments Source Heart rate 2022-03-23 23:35:00 70 /min [facility] Oxygen saturation in 2022-03-23 23:35:00 99 /min [facility] Arterial blood by [facility] Pulse oximetry Branch Systolic blood 2022-03-23 23:05:00 154 mm[Hg] Univer sity of pressure [facility] Diastolic blood 2022-03-23 23:05:00 83 mm[Hg] [facility] Respiratory rate 2022-03-23 23:05:00 18 /min [facility] temperature 2022-03-23 21:49:00 37 [facility] Body weight 2022-03-23 21:49:[address] [facility] BMI 2022-03-23 21:49:00 32.00 kg/m2 [facility] Respitory Rate 2018-07-12 17:23:00 Ministerio al Rob Heart Rate 2018-07-12 17:23:00 [facility] Temperature Oral (F) 2018-07-12 17:23:00 98 F [facility] Systolic (mm Hg) 2018-07-12 17:23:00 Pete [facility] [employer] Diastolic (mm Hg) 2018-07-12 17:23:00 Mem orial [employer] BMI Calculated 2018-07-12 17:01:00 Ministerio al Rob Weight 2018-07-12 17:01:00 [facility] [employer] Height 2018-07-12 17:01:00 180.34 cm [facility] Procedures Procedure Date / Time Performing Clinician Source Performed CONSENT/REFUSAL FOR 2022-03-23 21:42:08 Doctor Unassigned, No Un [facility] DIAGNOSIS AND TREATMENT Name [facility] Branch [id number] 2020-10-26 00:00:00 JUNE [facility] [id number] 2020-10-20 00:00:00 [facility] [id number] 2020-10-20 00:00:00 [facility] [id number] 2020-10-20 00:00:00 [facility] [id number] 2020-10-20 00:00:00 [facility] [id number] 2020-10-20 00:00:00 [facility] [id number] 2020-10-20 00:00:00 [facility] Amputation [facility] [employer] Anterior spinal fusion [facility] for cervical spinal deformity BKA - Below knee [facility] Alex n amputation Insertion of tunnelled [facility] dialysis catheter using fluoroscopic guidance Knee replacement [facility] n ORIF - Open reduction [facility] ermann and internal fixation of fracture Tonsillectomy [facility] Plan of Care Planned Activity Planned Date Details Comments Source Future Scheduled Test 2018 00:00:00 Screening for [facility] malignant neoplasm of colon (procedure) [code = 046387118] Future Scheduled Test 2018 00:00:00 Screening for [facility] malignant neoplasm of colon (procedure) [code = 297982845] Future Scheduled Test 1980 00:00:00 COVID-19 Vaccine (1) [facility] [code = COVID-19 Vaccine (1)] Future Scheduled Test 1980 00:00:00 COVID-19 Vaccine (1) [facility] [code = COVID-19 Vaccine (1)] Encounters Start End Encounter Admission Attending Care Care Encounter Source Date/Time Date/Time Type Type Clinicians Facility Department ID 2022-05-23 Outpatient [facility] [id number] [place] 15:06:41 [facility] 2022-02-27 Outpatient [facility] [id number] [place] 13:36:34 [id number] [facility] 2022-02-24 Outpatient [facility] [id number] [place] 09:21:19 [id number] [facility] 2022-02-22 Outpatient [facility] [id number] [place] 06:54:13 [id number] [facility] 2022-02-13 Outpatient [facility] [id number] [place] 17:29:23 [id number] [facility] 2021-09-14 Inpatient THALIA Braun, HCAMN MMRI [id number] [facility] 10:00:00 Nirav [id number] [facility] 2021-09-13 Inpatient THALIA Braun, HCAMN MMRI [id number] [facility] 10:00:00 Nirav [id number] [facility] 2021-04-02 Inpatient Saroj Coates [facility] DAYS [id number] [facility] 09:15:00 [id number] [facility] 2020-11-30 Inpatient Frankel, HCACL DAYS [id number] [facility] 14:00:00 Dhruvil [id number] [facility] 2020-11-27 Inpatient Frankel, HCACL DAYS [id number] [facility] 08:30:00 Dhruvil [id number] [facility] 2020-11-26 Inpatient EL Frankel, HCAMN MRAD [id number] [facility] 14:29:00 Dhruvil [id number] [facility] 2020-11-13 Inpatient EM EDDOC, HCAMN MRAD [id number] [facility] 13:08:00 GENERIC [id number] [facility] 2020-10-24 Inpatient HCACL SARA [id number] [facility] 21:12:00 [id number] [facility] 2020-10-24 Inpatient HCAMN KAITLYNN [id number] [facility] 17:30:00 [id number] [facility] 2020-10-16 Inpatient THALIA Frankel, HCACL DAYS [id number] [facility] 08:00:00 Beth [id number] [facility] 2020-10-03 Inpatient HCAMN KAITLYNN [id number] [facility] 12:12:00 [id number] [facility] 2020-08-15 Inpatient HCAMN KAITLYNN [id number] [facility] 07:53:00 [facility] 2020-02-20 Inpatient Saroj Coates [facility]AM[facility] DAYS [id number] [facility] 08:15:00 [id number] [facility] 2022-06-13 2022-06-13 [facility] [id number] Univers 10:00:00 10:00:00 JEROD [id number] efrain o [facility] 2022-06-13 2022-06-13 [facility] [id number] Univers 10:00:00 10:00:00 JEROD zuniga [facility] 2022-05-12 2022-05-14 Inpatient NKECHI, [facility] [id number] [place] 00:00:00 00:00:00 ALEX Alejandro [facility] 2022-05-06 2022-05-06 Nurse JEMAL Buckley [id number] [facility] 00:00:00 00:00:00 Triage Joanna MOODY 350.1.13.10 i [facility] 4.2.7.2.686 Gwyn as [id number] [address] 2022-05-06 2022-05-06 [facility] [id number] [id number] Univers 00:00:00 00:00:00 Jerod RENEE 350.1.13.10 ity [facility] [place] [id number] Ny dical NAL 059 [facility] 2022-04-14 2022-04-14 Outpatient R JERE, [facility] [id number] Univers 13:20:00 13:20:00 JEROD [id number] ity o [facility] 2022-04-14 2022-04-14 Outpatient R JERE, [facility] [id number] Univers 13:20:00 13:20:00 JEROD zuniga o [facility] 2022-03-23 2022-03-23 Emergency X [facility] ERT [id number] Univers 16:51:00 18:37:00 CHIVO ity of [facility] 2022-03-23 2022-03-23 Emergency [facility] [id number] [id number] Univers 16:51:00 18:37:00 Chivo RENEE 350.1.13.10 i ty [facility] 4.2.7.2.686 [facility] [id number] [facility] 084 [place] 2022-02-15 2022-02-15 Outpatient R JERE, [facility] [id number] Univers 11:00:00 11:00:00 JEROD zuniga o [facility] 2022-02-10 2022-02-10 Telephone [facility] [id number] Univers 00:00:00 00:00:00 Jerod PREMAHAYLEY 350.1.13.10 ity [facility] 4.2.7.2.686 [facility] [id number] Ny dical NAL 059 [facility] 2022-02-08 2022-02-08 Outpatient R JERE, [facility] [id number] Univers 12:47:16 23:59:00 JEROD zuniga o [facility] 2022-01-26 2022-01-26 Telephone [facility] 1.2.840.114 [id number] Univers 00:00:00 00:00:00 Cole Downey MULTISPEC 350.1.13.10 ity [facility] 4.2.7.2.686 [facility] [id number] [facility] AND [address] [facility] 2022-01-06 2022-01-07 Emergency X ZIA NCRICKY ERT [id number] Univers 23:32:00 05:14:00 TOMAS zuniga [facility] 2021-08-05 2021-08-05 Outpatient ZURI MartinezCL DAYS [id number] [facility] 07:27:00 07:27:00 Dhruvil 64 [facility] 2021-08-05 2021-08-05 Outpatient ZURI MartinezCL DAYS [id number] [facility] 07:27:00 07:27:00 Dhruvil [id number] [facility] 2021-08-04 2021-08-04 Outpatient ZURI FrankelCL DAYS [id number] [facility] 13:30:00 13:30:00 Dhruvil [id number] [facility] 2021-07-09 2021-07-10 Emergency EM Jeremie, ZURIMN KAITLYNN [id number] [facility] 21:31:00 01:20:00 Xi [id number] [facility] 2021-04-30 2021-04-30 [facility] [id number] [facility] 08:50:00 08:50:00 [id number] [facility] are [facility] 2021-04-30 2021-04-30 Outpatient Saroj Carmona [facility] DAYS [id number] [facility] 02:24:00 02:24:00 [id number] [facility] 2021-04-29 2021-04-29 Telephone Ajay RUST 1.2.840.114 [id number] 00:00:00 00:00:00 Cole Downey MULTISPEC 350.1.13.10 IALTY 4.2.7.2.686 CENTER [id number] [facility] 2021-02-08 2021-02-08 [facility] [id number] [facility] 16:30:00 16:30:00 Dhruvil [id number] [facility] 2021-01-30 2021-01-31 Emergency Yuko Gottlieb S TRAUMA 1.2.84 0.114 [id number] 19:24:00 00:56:00 Mohamud Mann [place] 350.1.13.10 4.2.7.2.686 [id number] 2021-01-23 2021-01-23 Outpatient GCCOVIDV GCCOVIDV [id number] GCCOVID 00:00:00 00:00:00 V 2021-01-02 2021-01-02 Outpatient GCCOVIDV GCCOVIDV [id number] GCCOVID 00:00:00 00:00:00 V 2020-12-02 2020-12-02 Telephone [facility] 1.2.840.114 [id number] 00:00:00 00:00:00 Galvan A MULTISPEC 350.1.13.10 IALTY 4.2.7.2.686 CENTER [id number] AND KEVIN [facility] 2020-11-24 2020-11-24 [facility] 1.2.840.114 [id number] 00:00:00 00:00:00 Management Galvan A MULTISPEC 350.1.13.10 IALTY 4.2.7.2.686 CENTER [id number] AND KEVIN [facility] 2020-10-20 2020-10-20 Outpatient GONZALEZ Frankel DAYS [id number] [facility] 10:15:00 10:15:00 Dhrusima [id number] [facility] 2020-09-29 2020-09-29 Outpatient Marlys, HCAMN MCTS [id number] [facility] 10:00:00 10:00:00 Dhruvil [id number] [facility] 2020-09-17 2020-09-17 Outpatient Fatoumata, HCAMN MCCL [id number] [facility] 09:00:00 09:00:00 Alfredo [id number] [facility] 2020-08-15 2020-08-15 Outpatient Balbir, HCACL LABO [id number] [facility] 14:17:00 14:17:00 Haydee [id number] [facility] 2020-02-20 2020-02-20 Outpatient Saroj Coates HCANW REF [id number] [facility] 08:16:00 08:16:00 [id number] [facility] 2018-07-12 2018-07-12 Outpatient [facility] [id number] [facility] 15:45:00 21:00:00 toney Rivas 00 l [facility] Results Test Description Test Time Test Comments Results Result Comments Source HEPATITIS C ANTIBODY 2022-04-15 20:36:01 Test Item Value Reference Range Interpretation Comme nts HEPATITIS C ANTIBODY (BEAKER) (test code = 367) Reactive Nonrea ctive [employer] App[employer] ID - BSHEPATITIS B CORE ANTIBODY, [id number] 20:35:17 Test Item Value Reference Range Interpretation Comments HEPATITIS B CORE TOTAL ANTIBODY Nonreactive Nonreactive (BEAKER) (test code = 497) [employer] [place] ID - BSHEPATITIS B SURFACE [id number] 20:35:12 Test Item Value Reference Range Interpretation Comments HEPATITIS B SURFACE ANTIGEN (2) Nonreactive Nonreactive (BEAKER) (test code = 2585) Specimen is considered negative for HBsAg.HEPATITIS B SURFACE [id number] 20:35:12 Test Item Value Reference Range Interpretation Comments HEPATITIS B SURFACE ANTIBODY 37.5 mIU/mL <8.0 H (BEAKER) (test code = 647) [employer] [place] ID - BSHEPATITIS B SURFACE [id number] 23:25:59 Test Item Value Reference Range Interpretation Comments HEPATITIS B SURFACE ANTIBODY 33.0 mIU/mL <8.0 H (BEAKER) (test code = 647) [employer] [place] ID - ADMINHEPATITIS B SURFACE [id number] 23:25:57 Test Item Value Reference Range Interpretation Comments HEPATITIS B SURFACE ANTIGEN (2) Nonreactive Nonreactive (BEAKER) (test code = 2585) Specimen is considered negative for HBsAg.GLUCOSE [id number] 11:50:00 Test Item Value Reference Range Interpretation Comments GLUCOSE BEDSIDE (test 84 MG/DL 70-110 N Perfor med by certified code = GLUBED) 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 PROTHROMBIN [id number] 14:36:00 Test Item Value Reference Range Interpretation [...] o prevent recurre nt infarct). THROMBOPLASTIN TIME [id number] 14:36:00 Test Item Value Reference Range Interpretation Comments THROMBOPLASTIN TIME 33.9 Seconds 25.0-39.5 N Ther apeutic PARTIAL (test code = Range: 50.4 - 88.3 PTT) Seconds Effective 02/19/2019 BASIC METABOLIC [id number] 14:28:00 Test Item Value Reference Range Interpretation [...] 8.3 mg/dL 8.0-10.5 N CA) CBC W/AUTO [id number] 14:05:00 Test Item Value Reference Range Interpretation [...] NO = MDIFF) - XR CHEST 2 [id number] 00:00:00 [facility] 1970 Sex: M FAX: Nirav Cohen MD [place]: St: PRE FAX: Beth Correia MD [phone] FAX: Tamika Hadley Name: PRESLEYROSY [facility] : 1970 Age/S: 50/M [address] [place] [address] Unit #: [id number] Loc: [place] [address] Phys: Tamika Hadley 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 Acct: [id number] Dis Date: Status: PRE [facility] PHONE #: [phone] Exam Date: FAX #: [phone] Reason: PREOP EXAMS: CPT CODE: [id number] XR CHEST 2 V 94490 PROCEDURE INFORMATION: Exam: XR Chest Exam date [...] NP Technologist: RT Supriya(Toney) Trnscrd Date/Time/By: 08/04/2021 (8749) : By: [email or web address] Orig Print D/T: S: 08/04/2021 (9421) PAGE 1 Signed Report- XR KNEE 3 V [id number] 23:20:00 [facility] : 1970 Sex: M FAX: Nirav Cohen MD [place]: St: REG FAX: Gisel Dwyer MD Name: PRESLEYROSY [facility] : 1970 Age/S: 50/M [address] Unit #: [id number] Loc: E.ERS2 [place], [place]: [place] [address] Acct: [id number] Dis Date: Status: REG ER PHONE #: [phone] Exam Date: 07/09/2021 2315 FAX #: [phone] Reason: fall injury EXAMS: CPT CODE: [id number] XR KNEE 3 [place] [address] Examination: Bilateral knees 3 views Location code: [...] RAO; Gisel Dwyer MD Technologist: Lisa Haines Trnncrd Date/Time/By: 07/09/2021 (2320) : By: [email or web address] PAGE 1 Signed Report FAX: Nirav Cohen MD [place]: St: [facility] FAX: Gisel Dwyer MD Name: ROSY MAGUIRE [facility] : 1970 Age/S: 50/M [address] [facility] [address] Unit #: [id number] Loc: E.ERS2 [place], [place]: [place] [address] Acct: [id number] Dis Date: Status: REG ER PHONE #: [phone] Exam Date: 07/09/20212314 FAX #: [phone] Reason: fall injury EXAMS: CPT CODE: [id number] XR KN[place] [address] <Continued> Orig Print D/T: S: 07/09/2021 (1991) PAGE 2 Signed Report- XR FOREARM 2 VIEWS [id number] 23:18:00 [facility] : 1970 Sex: M FAX: Nirav Cohen MD [place]: St: REG FAX: Gisel Dwyer MD Name: ROSY MAGUIRE [facility] : 1970 Age/S: 50/M [address] [facility] Unit #: [id number] Loc: E.ERS2 [place], [place]: [place] [address] Acct: [id number] Dis Date: Status: REG ER PHONE #: [phone] Exam Date: 07/09/20212314 FAX #: [phone] Reason: fall injury EXAMS: CPT CODE: [id number] XR FOREARM [address] [place] [address] Examination: Right hand 3 views, right forearm [...] Braun MD; Gisel Dwyer MD Technologist: Lisa Silvasaint elizabeth hebron Date/Time/By: 07/09/2021 (1478) : By: [email or web address] PAGE 1 Signed Report FAX: Nirav Cohen MD [place]: St: REG FAX: Gisel Dwyer MD Name: ROSY MAGUIRE [facility] : 1970 Age/S: 50/M [address] [facility] Unit #: [id number] Loc: [address] [place]: [place] [address] Acct: [id number] Dis Date: Status: REG ER PHONE #: [phone] Exam Date: 07/09/2021 2315 FAX #: [phone] Reason: fall injury EXAMS: CPT CODE: [id number] XR [place] [address] [place] [address] <Continued> Orig Print D/T: S: 07/09/2021 (6324) PAGE 2 Signed Report- XR HUMERUS 2 + V [id number] 23:18:00 [facility] : 1970 Sex: M FAX: Nirav Cohen MD [place]: St: REG FAX: Gisel Dwyer MD Name: PRESLEYROSY [facility] : 1970 Age/S: 50/M [address] [facility] Unit #: [id number] Loc: [address] [place]: [place] [address] Acct: [id number] Dis Date: Status: REG ER PHONE #: [phone] Exam Date: 07/09/2021 2315 FAX #: [phone] Reason: fall injury EXAMS: CPT CODE: [id number] XR HUMERUS 2 + V [place] [address] Examination: Right hand 3 views, right forearm [...] MD Technologist: Lisa Haines Trnscrd Date/Time/By: 07/09/2021 (9836) : By: [email or web address] PAGE 1 Signed Report FAX: Nirav Cohen MD [place]: St: REG FAX: Gisel Dwyer MD Name: PRESLEYROSY [facility] : 1970 Age/S: 50/M [address] [facility] Unit #: [id number] Loc: [address] [place]: [place] [address] Acct: [id number] Dis Date: Status: REG ER PHONE #: [phone] Exam Date: 07/09/20212314 FAX #: [phone] Reason: fall injury EXAMS: CPT CODE: [id number] XR HUMERUS 2 + V [place] [address] <Continued> Orig Print D/T: S: 07/09/2021 (6607) PAGE 2 Signed Report- XR HAND 3 + V [id number] 23:18:00 [facility] : 1970 Sex: M FAX: Nirav Cohen MD [place]: St: REG FAX: Gisel Dwyer MD Name: ROSY MAGUIRE [facility] : 1970 Age/S: 50/M [address] [facility] Unit #: [id number] Loc: [address] [place]: [place] [address] Acct: [id number] Dis Date: Status: REG ER PHONE #: [phone] Exam Date: 07/09/20212314 FAX #: [phone] Reason: fall injury EXAMS: CPT CODE: [id number] XR HAND 3 + V [place] [address] Examination: Right hand 3 views, right forearm [...] MD Technologist: Lisa Haines Trnscrd Date/Time/By: 07/09/2021 (7058) : By: [email or web address] PAGE 1 Signed Report FAX: Nirav Cohen MD [place]: St: REG FAX: Gisel Dwyer MD Name: ROSY MAGUIRE [facility] : 1970 Age/S: 50/M [address] [facility] [email or web address] Unit #: [id number] Loc: [address] [place] [address] [place]: [place] [address] Acct: [id number] Dis Date: Status: REG ER PHONE #: [phone] Exam Date: 07/09/20212314 FAX #: [phone] Reason: fall injury EXAMS: CPT CODE: [id number] XR HAND 3 + V [place] [address] <Continued> Orig Print D/T: S: 07/09/2021 (9995) PAGE 2 Signed ReportSURGICAL [id number] 17:11:00 Test Item Value Reference Range Interpretation Comments SURGICAL SPECIMENS (test code = SURG) RUN DATE: 05/03/21 [facility] - LAB PAGE 1 RUN TIME: 1821 Specimen Inquiry RUN USER: INTERFACE PATIENT: ROSY MAGUIRE LOC: [place] U #: [id number] AGE/SX: 50/M ROOM: RE04/30/21[facility] DR: Saroj Coates MD (GEN JUSTO : [birth year] BED: DIS: STATUS: GRACIE [facility] TLOC: SPEC #: [id number] RECD: 04/30/21 STATUS: NEIL [place] #: [id number] BENEDICTO: 04/30/21 [facility] DR: Saroj Coates MD (GEN SURG) ENTERED: 04/30/21 SP TYPE: SURG OTHR DR: Nirav Braun MD ORDERED: [id number], PATH SPEC, H E STAIN HISTOLOGY: TISSUE ID BLK PCS GHADA LEV / PROCEDURE DISPOSITION ____ ___ ___ ___ ___ PILONIDAL CYST A 1 1 TISSUES: A. PILONIDAL CYST - Pilonidal Cyst CLINICAL HISTORY Pilonidal cyst/abscess. FINAL DIAGNOSIS PILONIDAL CYST, EXCISION: - SKIN WITH SINUS TRACT LINED BY INFLAMED GRANULATION TISSUE, CONSISTENT WITH PILONIDAL CYST CPT 17103 GROSS DESCRIPTION Received in formalin labeled with the patient's name and "pilonidal cyst/abscess" are two irregularly-shaped fragments of skin and underlying soft tissue, upon reapproximation measuring 4.0 x 3.5 x 3.0 cm. The skin (3.0 x 1.0 cm) is grossly unremarkable sandoval-coker. The cut surface shows an abscess cavity, 1.2 cm in diameter. Geodesist sections are submitted in one cassette. CM/ph MICROSCOPIC DESCRIPTION PERFORMED -- Signed SIGNATURE ON FILE Mel Cleaning MD 05/03/21 1711 END OF REPORT BASIC METABOLIC [id number] 07:30:00 Test Item Value Reference Range Interpretation [...] Va lue code = CREAT) reported toFir Name:LALITA Last Name:VANNESSA BLACK READ BACK AND SHAYNA EDEN, on 04/30/21, @ 5546.Please not e: New Reference Range Dec 2020 CALCIUM (test code = 6.6 mg/dL 8.7-10.4 L Please note: New [place]) Reference Range Dec 2020 COVID Asymptomatic IH [id number] 13:16:00 Test Item Value Reference Interpretation Comments [...] i ts performancechar acteristics were determined by [facility]. Thi s test has notbeen FDA [...] setting? Unknown? NoAge at collection: YBASIC METABOLIC [id number] 12:02:00 Test Item Value Reference Range Interpretation [...] rate . CREATININE (test 13.80 mg/dL 0.70-1.30 HH Critical Va lue code = CREAT) reported Chiquiir st Name:SALLY Last Name:DOMI KAREN READ BACK AND VERIFIEDby BEBETO RutherfordCK, on 04/27/21, @ 1202.Please not e: New Reference Range Dec 2020 CALCIUM (test code = 6.3 mg/dL 8.7-10.4 L Please note: New CA) Reference Range Dec 2020 BASIC METABOLIC [id number] 11:50:00 Test Item Value Reference Range Interpretation [...] CA) Reference Range Dec 2020 CBC W/AUTO [id number] 11:25:00 Test Item Value Reference Range Interpretation [...] = BA#) 0.05 x10 3/uL 0.0-0.20 N [id number] 14:50:00 Test Item Value Reference Range Interpretation Comments GLUBED (test code = GLUBED) 109 MG/DL 70-105 H [id number] 08:36:00 Test Item Value Reference Range Interpretation Comments POTASSIUM (test code = K) 4.9 mmol/L 3.5-5.1 N COVID Asymptomatic IH [id number] 10:58:00 Test Item Value Reference Interpretation Comments [...] i ts performancechar acteristics were determined by [facility]. Thi s test has notbeen FDA [...] setting? Unknown? NoAge at collection: YBASIC METABOLIC [id number] 12:16:00 Test Item Value Reference Range Interpretation [...] code = mg/dL 8.7-10.4 CA) BASIC METABOLIC [id number] 12:16:00 Test Item Value Reference Range Interpretation [...] CA) Reference Range Dec 2020 CBC W/AUTO [id number] 11:54:00 Test Item Value Reference Range Interpretation [...] 0.0-0.20 N - CT ABD PELVIS W/O [id number] 16:57:00 [facility] ROSY MAGUIRE : 1970 Sex: M Name: ROSY MAGUIRE [facility] [place] : 1969 Age/S: 50 / M [address] Unit #: [id number] Loc: [place] [address] Phys: Beth Frankel MD Acct: [id number] Dis Date: Status: REG CLI PHONE #: [phone] Exam Date: 02/08/2021 1617 FAX #: [phone] Reason: T85.691A, MALFUNCTION OF PD CATHETER. EXAMS: CPT CODE: [id number] CT ABD PELVIS W/O CONT 46694 CT abdomen and pelvis without contrast dated [...] 1 Signed Report (CONTINUED) Name: ROSY MAGUIRE [facility] [place] : 1970 Age/S: 50 / M [address] [place] [address] Blvd Unit #: [id number] Loc: [place] [address] Phys: Beth Frankel MD Acct: [id number] Dis Date: Status: REG CLI PHONE #: [phone] Exam Date: 02/08/2021 1617 FAX #: [phone] Reason: T85.691A, MALFUNCTION OF PD CATHETER. EXAMS: CPT CODE: [id number] CT ABD PELVIS W/O CONT 67858 <Continued> retroperitoneal mass or adenopathy. PELVIS: Bladder [...] M.D. 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 [facility] BASIC METABOLIC [id number] 13:08:00 Test Item Value Reference Range Interpretation [...] code = 8.4 mg/dL 8.0-10.5 N CA) [id number] 13:01:00 Test Item Value Reference Range Interpretation Comments GLUBED (test code = 66 MG/DL 70-110 L Performe d by certified GLUBED) 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 The testing is perf ormed by personneltraine d in the procedures for the Tadeo M2000 molecular diagnostic SARS-CoV-2 assa y in vitro. BASIC METABOLIC [id number] 12:58:00 Test Item Value Reference Range Interpretation [...] = 9.2 mg/dL 8.0-10.5 N CA) PROTHROMBIN [id number] 12:47:00 Test Item Value Reference Range Interpretation [...] o prevent recurre nt infarct). THROMBOPLASTIN TIME [id number] 12:47:00 Test Item Value Reference Range Interpretation Comments THROMBOPLASTIN TIME 36.5 Seconds 25.0-39.5 N Ther apeutic PARTIAL (test code = Range: 50.4 - 88.3 PTT) Seconds Effective 02/19/2019 CBC W/AUTO [id number] 12:35:00 Test Item Value Reference Range Interpretation [...] code NO = MDIFF) - XR ABDOMEN [id number] 15:08:00 [facility] ROSY MAGUIRE : 1970 Sex: M FAX: Nirav Cohen MD [place]: St: PRE FAX: Kelly Correia MD [phone] Name: ROSY MAGUIRE [facility] : 1970 Age/S: 50/M [address] [facility] Unit #: [id number] [place]: [place], [place]: [place] [address] Acct: [id number] Dis Date: Status: PRE CLI PHONE #: [phone] Exam Date: 11/26/2020 1456 FAX #: [phone] Reason: PERITONEAL DILAYSIS CATHETER DYSFUNCTION EXAMS: CPT CODE: [id number] XR ABDOMEN 2V 71176 Location code: H5 Abdomen Two Views Indication: [...] 1 Signed Report (CONTINUED) FAX:Nirav Cohen MD [place]: St: PRE FAX: Beth Correia MD [phone] Name: ROSY MAGUIRE [facility] : 1970 Age/S: 50/M [address] [facility] Unit #: [id number] Loc: [place], [place]: [place] [address] Acct: [id number] Dis Date: Status: PRE CLI PHONE #: [phone] Exam Date: 11/26/2020 1456 FAX #: [phone] Reason: PERITONEAL DILAYSIS CATHETER DYSFUNCTION EXAMS: CPT CODE: [id number] XR ABDOMEN 2V 34510 <Continued> CC: Nirav Braun MD; Beth Frankel MD Technologist: SOHAIL BERNARD Trnscrd Date/Time/By: 11/26/2020 (8879) : By: [email or web address] PAGE 2 Signed Report FAX: Nirav Cohen MD [place]: St: PRE FAX: Beth Correia MD [phone] - Name: ROSY MAGUIRE [facility] : 1970 Age/S: 50/M [address] Unit #: [id number] Loc: [facility] [place], [place] [address] Acct: [id number] Dis Date: Status: PRE CLI PHONE #: [phone] Exam Date: 11/26/2020 [facility] FAX #: [phone] Reason: PERITONEAL DILAYSIS CATHETER DYSFUNCTION EXAMS: CPT CODE: [id number] ABDOMEN 2V 57355 <Continued> Orig Print D/T: S: 0 11/26/2020 (2831) PAGE 3 Signed Report- XR ABDOMEN 1 [id number] 14:29:00 [facility] [place] [facility] : 1970 Sex: M FAX: Nirav Cohen MD [place]: CORY St: REG Name: ROSY MAGUIRE [facility] : 1970 Age/S: 50/M [address] [facility] [address] Unit #: [id number] Loc: JOURDAN [place], [place] Phys: EDDOC, GENERIC FOR EDM [address]451 Acct: [id number] Dis Date: Status: REG CLI PHONE #: [phone] Exam Date: 11/13/2020 1352 FAX #: [phone] Reason: PD CATH MALFUNCTION EXAMS: CPT CODE: [id number] XR ABDOMEN 1 V 60896 EXAM: ABDOMEN ONE VIEW INDICATION: PDCATH MALFUNCTION [...] pelvis. There is a possible kink. at 1429 Reported and signed by: Donna Mullins M.D. CC: Nirav Braun MD Technologist: ANA BARRETO Trnscrd Date/Time/By: 11/13/2020 (7904) : By: [email or web address] PAGE 1 Signed Report FAX: Nirav Cohen MD [place]: St: REG-- Name: ROSY MAGUIRE [facility] : 1970 Age/S: 50/M [address] [facility] Unit #: [id number] Loc: ZekeSHANKAR [place], [place] Phys: EDDOC, [place] [address] Acct: [id number] Dis Date: Status: REG CLI PHONE #: [phone] Exam Date: 11/13/2020 1352 FAX #: [phone] Reason: PD CATH MALFUNCTION EXAMS: CPT CODE: [id number] XR ABDOMEN 1 V 92559 <Continued> Orig Print D/T: S: 11/13/2020 (5892) PAGE 2 Signed [id number] 08:30:00 Test Item Value Reference Range Interpretation [...] may amelia y by method. BASIC METABOLIC [id number] 17:02:00 Test Item Value Reference Range Interpretation [...] code = 8.5 mg/dL 8.0-10.5 N CA) [id number] 17:02:00 Test Item Value Reference Range Interpretation [...] y by method. - XR CHEST 1 [id number] 16:17:00 [facility] 1970 Sex: M FAX: Tray Donald [phone] [place]: St: ADM FAX: Nirav Zamudio am, MD Name: ROSY MAGUIRE [facility] : 1970 Age/S: 50/M [address] [place] [address] Unit #: [id number] Loc: G.[address] [place] [address] Phys: DOES_NOT KNOW Acct: [id number] Dis Date: Status: ADM IN PHONE #: [phone] Exam Date: 10/26/2020 1616 FAX #: [phone] Reason: PAIN EXAMS: CPT CODE: [id number] XR CHEST 1 V 61488HV CHEST 1 VIEW HISTORY: PAIN. COMPARISON: CXR [...] CC: Tray Linder MD; Nirav Braun Technologist: Pamela Blake RT(R) Trnscrd Date/Time/By: 10/26/2020 (8451) : By: [email or web address] Orig Print D/T: S: 10/26/2020 (4773) PAGE 1 Signed Report- US ABDOMEN [id number] 14:11:00 [facility] 1970 Sex: M Name: ROSY MAGUIRE [facility] : 1969 Age/S: 50 / M [address] [place] [address] Unit #: [id number] Loc: [place] [address] Phys: Harpal Zamarripa MD Acct: [id number] Dis Date: Status: ADM IN PHONE #: [phone] Exam Date: 10/26/2020 1157 FAX #: [phone] Reason: POSSIBLE PERTITONEAL FLUID INFECTION, RULE OUT. EXAMS: CPT CODE: [id number] US ABDOMEN LTD 54620 CLINICAL HISTORY: Possible peritoneal fluid infection,. Do time ultrasound examination of all 4 quadrants of the abdomen and pelvis was performed. There is no evidence of free fluid in the peritoneal cavity on provided images. IMPRESSION: No evidence of freeperitoneal fluid. at 1411 Reported and signed by: Dung Frankel M.D. CC: Harpal Zamarripa MD; Tray Linder MD; Nirav Braun Technologist: Shira Fraire RDMS() Trnscb Date/Time: 10/26/2020 (141) Chuck Orig Print D/T: S: 10/26/2020 (2224) Probe: PAGE 1 Signed ReportPROTHROMBIN [id number] 13:56:00 Test Item Value Reference Range Interpretation [...] o prevent recurre nt infarct). THROMBOPLASTIN TIME [id number] 13:56:00 Test Item Value Reference Range Interpretation Comments THROMBOPLASTIN TIME PARTIAL (test Seconds 25.0-39.5 code = PTT) PROTHROMBIN [id number] 13:56:00 Test Item Value Reference Range Interpretation [...] o prevent recurre nt infarct). THROMBOPLASTIN TIME [id number] 13:56:00 Test Item Value Reference Range Interpretation Comments THROMBOPLASTIN TIME 33.8 Seconds 25.0-39.5 N Ther apeutic PARTIAL (test code = Range: 50.4 - 88.3 PTT) Seconds Effective 02/19/2019 BASIC METABOLIC [id number] 08:02:00 Test Item Value Reference Range Interpretation [...] 8.0-10.5 N CA) - XR CHEST 2 [id number] 17:16:00 [facility] : 1970 Sex: M FAX: Tray Donald [phone] [place]: St: ADM FAX: Nirav Zamudio am, MD FAX: Antonino Huff MD [phone] Name: ROSY MAGUIRE [facility] [place] : 1970 Age/S: 50/M [address] [place] [address] Blvd Unit #: [id number] Loc: [address] [place] [address] Phys: Antonino Huff MD Acct: [id number] Dis Date: Status: ADM IN PHONE #: [phone] Exam Date: 10/25/20201627 FAX #: [phone] Reason: ? opacity EXAMS: CPT CODE: [id number] XR CHEST 2 V 20379 Chest, 2 views dated 10/25/2020. HISTORY: ? [...] Nirav Braun; Antonino Huff MD Technologist: Pamela Blake, RT(R) Trnsaint elizabeth hebron Date/Time/By: 10/25/2020 (7220) : By: MartinDMM Orig Print D/T: S: 10/25/2020 (8780) PAGE 1 Signed ReportAG HEPATITIS B [id number] 16:37:00 Test Item Value Reference Range Interpretation Comments AG HEPATITIS B SURFACE NON REACTIVE INDEX NonReactive (test code = HBSAG) - XR SHOULDER 2 + V [id number] 13:12:00 [facility] 1970 Sex: M FAX: Tray Donald [phone] [place]: St: ADM FAX: Nirav Zamudio am, MD FAX: Antonino Huff MD [phone] Name: ROSY MAGUIRE [facility] : 1970 Age/S: 50/M [address] [place] [address] Unit #: [id number] Loc: G.[address] [place] [address] Phys: Antonino Huff MD Acct: [id number] Dis Date: Status: ADM IN PHONE #: [phone] Exam Date: FAX #: [phone] Reason: Left shoulder region pain EXAMS: CPT CODE: [id number] XR SHOULDER 2 + VLT 71008 PROCEDURE: Left Shoulder Radiographs. Clinical Indication: Left [...] MD Technologist: RT Peter(Toney) Trnscrd Date/Time/By: 10/25/2020 (7672) : By: [email or web address] Orig Print D/T: S: 10/25/2020 (1774) PAGE 1 Signed ReportCOVID 19 Asymptomatic IH [id number] 01:04:00 Test Item Value Reference Range Interpretation [...] COMMENTS: If not done this admissionC REACTIVE [id number] 23:38:00 Test Item Value Reference Range Interpretation Comments C REACTIVE PROTEIN (test code = 19.0 mg/L <10.0 H CRP) CBC W/AUTO [id number] 22:45:00 Test Item Value Reference Range Interpretation [...] REQUIRED (test code NO = MDIFF) LACTIC [id number] 22:35:00 Test Item Value Reference Range Interpretation Comments LACTIC ACID (test code = LACT) 0.9 mmol/L 0.4-1.9 N Coronavirus 2019 nCoV [id number] 20:19:00 Test Item Value Reference Range Interpretation Comments Coronavirus 2019 Negative NEGATIVE Negative re sults should be nCoV Bedside (test treated a s presumptive and code = ifinconsistent with [id number]) clinical signs and symptoms, or ne cessaryfor patient managem ent, should be tested with an alternativemole cular assay. Negative result s do not preclude MGTW-QaU-0wraay tion and should not be u sed as the sole basis forp atient management deci sions. Negative result s should beconsidered in the context of a patient's recent exposures,histo ry, presence of clinical sig ns and symptoms consis tentwith COVID-19. BASIC METABOLIC [id number] 18:28:00 Test Item Value Reference Range Interpretation [...] L Specimen comments: Clean CatchHEPATIC FUNCTION PANEL [id number] 18:28:00 Test Item Value Reference Range Interpretation [...] N code = ALKP) Specimen comments: Clean [id number] 18:28:00 Test Item Value Reference Range Interpretation Comments LIPASE (test code = LIP) 135 Units/L 65.0-230.0 N Specimen comments: Clean [id number] 18:28:00 Test Item Value Reference Range Interpretation Comments TROPONIN-I (test 0.02 NG/ML 0.00-0.06 N REFERENCE R UDAY TROPONIN code = TROPI) I HEALTHY KEYA VIDUALS: <0.06 ng/mL R/O ISCHEMIA: 0.07 - 0.60 ng/mL CUT-OFF R UDAY FOR AMI: 0.60 - 1. 5 ng/mL Specimen comments: Clean Catch- CT ABD PELVIS W/O [id number] 18:26:00 [facility] PRESLEY ROSY : 1970 Sex: M FAX: Nirav Cohen MD [place]: St: [facility] FAX: Mallory Gan MD [phone] Name: ROSY MAGUIRE [facility] : 1970 Age/S: 50/M [address] [facility] Unit: [id number] Loc: E.ERS2 [place], [place]: [place] [address] Acct: [id number] Dis Date: Status: REG ER PHONE #: [phone] Exam Date: 10/24/2020 1803 FAX #: [phone] Reason : abd pain, recent hernia repair and perit dialys EXAMS: CPT CODE: [id number] CT ABD PELVIS W/O CONT [address]364 CT ABDOMEN AND PELVIS W/O CONTRAST Location [...] Signed Report (CONTINUED) FAX: Nirav Cohen MD [place]: St: REGFAX: Mallory Gan MD [phone] Name: ROSY MAGUIRE [facility] : 1970 Age/S: 50/M [address] [facility] Unit: [id number] Loc : [address] [place]: [place] [address] Acct: [id number] Dis Date: Status: REG ER PHONE #: [phone] Exam Date: 10/24/2020 180 FAX #: [phone] Reason: abd pain, recent hernia repair and perit dialys EXAMS: CPT CODE: [id number] CT ABD PELVIS W/O CONT 66144 <Continued> 2. Peritoneal dialysis catheter is in good position. Atrophic kidneys. 3. Mildly elevated left hemidiaphragm and bibasilar atelectasis. at 1826 Reported and signed by: Francisco Pack M.D. CC: Nirav Braun MD; Mallory Gan MD Technologist: EDGAR CHACON Trnscrd Dt/Tm: 10/24/2020 (1825)t.AGUSTINR.RK5 Orig Print D/T: S: 10/24/2020 (1828 PAGE 2 Signed ReportBASIC METABOLIC [id number] 18:19:00 Test Item Value Reference Range Interpretation [...] 8.0-10.5 Specimen comments: Clean CatchHEPATIC FUNCTION PANEL [id number] 18:19:00 Test Item Value Reference Range Interpretation [...] 50.0-136.0 code = ALKP) Specimen comments: Clean [id number] 18:19:00 Test Item Value Reference Range Interpretation Comments LIPASE (test code = LIP) Units/L 65.0-230.0 Specimen comments: Clean [id number] 18:19:00 Test Item Value Reference Range Interpretation Comments TROPONIN-I (test code = TROPI) NG/ML 0.00-0.06 Specimen comments: Clean Catch- XR CHEST 1 [id number] 18:14:00 [facility] : 1970 Sex: M FAX: Nirav Cohen MD [place]: St: REG FAX: Mallory Gan MD [phone] Name: ROSY MAGUIRE [facility] : 1970 Age/S: 50/M [address] [facility] Unit #: [id number] Loc: [address] [place]: [place] [address] Acct: [id number] Dis Date: Status: REG ER PHONE #: [phone] Exam Date: 10/24/2020 181 FAX #: [phone] Reason: Abdominal Pain EXAMS: CPT CODE: [id number] XR CHEST 1 V 46935 Site ID: [id number] HISTORY: Abdominal pain, bleeding [...] 1 Signed Report FAX: Nirav Cohen MD [place]: St: REG FAX: Mallory Gan MD [phone] Name: ROSY MAGUIRE [facility] : 1970 Age/S: 50/M [address] [facility] Unit #: [id number] Loc: [address] Phys: Mall[place] [address] Acct: [id number] Dis Date: Status: REG ER PHONE #: [phone] Exam Date: 10/24/20201810 FAX #: [phone] Reason: Abdominal Pain EXAMS: CPT CODE: [id number] XR CHEST 1 V 36905 <Continued> Orig Print D/T: S: 10/24/2020 (1816) PAGE 2 Signed ReportPROTHROMBIN [id number] 18:10:00 Test Item Value Reference Range Interpretation Comments PROTHROMBIN TIME 11.4 SECONDS 9.9-12.8 N PATIENT (test code = PTP) INTERNATIONAL NORMAL 1.0 0.89-1.14 N THE INR IS TO BE USED RATIO (test code = ONLY FOR MONITORING INR) ORAL ANTICOAGULANTTH ERAPY. THE FOLLOWING A RE SUGGESTED RANGE S FROM THEOUR [facility] LEGE OF CHEST PHYSICIANS:KEYA CATION INR VALUEPROPHYLAXI [...] Clean CatchIs patient on anticoagulants? 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 [facility] CBC W/AUTO [id number] 08:29:00 Test Item Value Reference Range Interpretation [...] (test code NO = MDIFF) BASIC METABOLIC [id number] 08:17:00 Test Item Value Reference Range Interpretation [...] code = 8.5 mg/dL 8.0-10.5 N CA) [id number] 08:04:00 Test Item Value Reference Range Interpretation Comments GLUBED (test code = 94 MG/DL 70-110 N Performe d by certified GLUBED) print 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 [facility] - XR T-SPINE [id number] 18:08:00 [facility] 1970 Sex: M FAX: Mery Crane MD [phone] [place]: St: ADM FAX: Seymour Dunham [phone] FAX: Nirav Cohen MD FAX: Beth Correia MD [phone] Name: ROSY MAGUIRE : 1970 Age/S: 50/M [address] [place] [address] Unit #: [id number] Loc: [place] [address] Phys: Seymour Osman PA-C Acct: [id number] Dis Date: Status: ADM IN PHONE#: [phone] Exam Date: 10/21/2020 174 FAX #: [phone] Reason: point tenderness around T7-T8 after fall-back h EXAMS: CPT CODE: [id number] XR T-SPINE 3V 22771 P rocedure: Thoracic Spine Radiographs. 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 [facility] - XR ABDOMEN 1V (KUB)2020-10-21 17:46:00 [facility] 1970 Sex: M FAX: Estiven Call MD [phone] [place]: St: ADM FAX: Mery [place] MD [phone] FAX: Nirav Cohen MD FAX: Beth Correia MD [phone] Name: PRESLEYROSY [facility] : 1970 Age/S: 50/M [address] [place] [address] Unit #: [id number] Loc: [address] [address] Phys: Estiven Call MD Acct: [id number] Dis Date: Status: ADM IN PHONE#: [phone] Exam Date: 10/21/2020 1741 FAX #: [phone] Reason: n/v, abdominal pain EXAMS: CPT CODE: [id number] XR ABDOMEN 1V (KUB) 44818 Procedure: Abdominal Radiograph. Clinical Indication: Nausea and vomiting, abdominal pain, malfunction of peritoneal dialysis catheter. Comparison: Abdominal sgsbctoene99/2/2017. 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 [facility] - XR CHEST 1 [id number] 17:06:00 [facility] 1970 Sex: M FAX: Estiven Call MD [phone] [place]: St: ADM FAX: Mery [place] MD [phone] FAX: Nirav Cohen MD FAX: Beth Correia MD [phone] Name: [facility] 1970 Age/S: 50/M [address] [place] [address] Unit #: [id number] Loc: [address] [place] [address] Phys: Estiven Call MD Acct: [id number] Dis Date: Status: ADM IN PHONE#: [phone] Exam Date: 10/21/2020 165 FAX #: [phone] Reason: recent fall left sided rib hurting EXAMS: CPT CODE: [id number] XR CHEST 1 V 38501 Chest, single view dated 10/21/2020. HISTORY: Left [...] MD Technologist: RT Yolande(Toney) Trnscrd Date/Time/By: 10/21/2020 (1700) : By: Castro Orig Print D/T: S: 10/21/2020 (2314) PAGE 1 Signed [id number] 12:18:00 Test Item Value Reference Range Interpretation Comments GLUBED (test code = 85 MG/DL 70-110 N Performe d by certified GLUBED) print 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 [facility] ACUTE HEPATITIS [id number] 09:59:00 Test Item Value Reference Range Interpretation [...] is recommended if clinicallyindic ated. BASIC METABOLIC [id number] 08:02:00 Test Item Value Reference Range Interpretation [...] code = 8.2 mg/dL 8.0-10.5 N CA) [id number] 08:02:00 Test Item Value Reference Range Interpretation Comments PHOSPHOROUS (test code = PHOS) 8.0 MG/DL 2.5-4.9 H [id number] 08:02:00 Test Item Value Reference Range Interpretation Comments MAGNESIUM (test code = MAG) 2.26 mg/dL 1.80-2.40 N CBC W/AUTO [id number] 06:59:00 Test Item Value Reference Range Interpretation [...] DIFF REQUIRED (test code NO = MDIFF) [id number] 21:48:00 Test Item Value Reference Range Interpretation Comments GLUBED (test code = 140 MG/DL 70-110 H Performe d by certified GLUBED) print 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 [facility] TSH REFLEX TO [id number] 17:15:00 Test Item Value Reference Range Interpretation Comments TSH REFLEX TO FT4 (test code = 1.59 IU/mL 0.42-5.47 N TSHREFLEX) HGBA1C%2020-10-20 17:06:00 Test Item Value Reference Range Interpretation Comments HGBA1C% (test code = HGBA1C%) 5.2 %A1C 4.8-6.0 N [id number] 16:37:00 Test Item Value Reference Range Interpretation Comments GLUBED (test code = 144 MG/DL 70-110 H Performe d by certified GLUBED) print 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 [facility] [id number] 11:31:00 Test Item Value Reference Range Interpretation Comments GLUBED (test code = 128 MG/DL 70-110 H Performe d by certified GLUBED) print 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 [facility] CBC W/AUTO [id number] 08:46:00 Test Item Value Reference Range Interpretation [...] (test code NO = MDIFF) BASIC METABOLIC [id number] 08:07:00 Test Item Value Reference Range Interpretation [...] code = 8.7 mg/dL 8.0-10.5 N CA) [id number] 07:46:00 Test Item Value Reference Range Interpretation Comments GLUBED (test code = 114 MG/DL 70-110 H Performe d by certified GLUBED) print 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 [facility] Novel Coronavirus 2018 [id number] 21:59:00 Test Item Value Reference Range Interpretation [...] for the identification of SARS-CoV-2 RNA usingthe Tadeo M2000 Sy stem under the FDA Emergen cy UseAuthorizatio n. The testing is perf ormed by personneltraine d in the procedures for the Tadeo M2000 molecular diagnostic SARS-CoV-2 assa y in vitro. COMMENTS: N- XR CHEST 2 [id number] 10:50:00 [facility] : 1970 Sex: M FAX: Nirav Cohen MD [place]: St: PRE FAX: Beth Correia MD [phone] FAX: Tamika Hadley Name: ROSY MAGUIRE [facility] : 1970 Age/S: 50/M [address] [place] [address] Unit #: [id number] Loc: [place] [address] Phys: Tamika Hadley NP Acct: [id number] Dis Date: Status: PRE [facility] [place] PHONE #: [phone] Exam Date: FAX #: [phone] Reason: PRE- OP HERNIA REPAIR EXAMS: CPT CODE: [id number] XR CHEST 2 V 95975 EXAM: CHEST TWO VIEW HISTORY: 50-year-old male for preoperative evaluation, hernia repair COMPARISON: Chest radiograph 09/07/2017 FINDINGS: Elevated left hemidiaphragm. The lungs are clear. The cardiomediastinal silhouette is normal for projection. Aortic locations. No acute osseous abnormality.Cervical spinal hardware partially visualized. IMPRESSION: 1. No acute cardiopulmonary abnormality. SL: [id number] at 1050 Reported and signed by: Lucia Montano M.D. CC: Nirav Braun; Beth Frankel MD; Tamika Hadley NP Technologist: RT Jarrod(R) Trnscrd Date/Time/By: 10/16/2020 (2700) : By: [email or web address] Orig Print D/T: S: 10/16/2020 (0093) PAGE 1 Signed ReportCBC W/AUTO [id number] 10:39:00 Test Item Value Reference Range Interpretation [...] REQUIRED (test code NO = MDIFF) PLT [id number] 10:39:00 Test Item Value Reference Range Interpretation Comments PLATELET ESTIMATE (test code 100-125 THOUSAND ADEQUATE = PLTEST) PLATELET MORPHOLOGY (test LARGE PLATELETS code = PLTMORPH) BASIC METABOLIC [id number] 10:19:00 Test Item Value Reference Range Interpretation [...] 8.4 mg/dL 8.0-10.5 N CA) CBC W/AUTO [id number] 09:57:00 Test Item Value Reference Range Interpretation [...] REQUIRED (test code NO = MDIFF) PLT [id number] 09:57:00 Test Item Value Reference Range Interpretation Comments PLATELET ESTIMATE (test code = THOUSAND ADEQUATE PLTEST) CBC W/AUTO [id number] 09:56:00 Test Item Value Reference Range Interpretation [...] REQUIRED (test code NO = MDIFF) PLT [id number] 09:56:00 Test Item Value Reference Range Interpretation Comments PLATELET ESTIMATE (test code = THOUSAND ADEQUATE PLTEST) CBC W/AUTO [id number] 09:49:00 Test Item Value Reference Range Interpretation [...] REQUIRED (test code = MDIFF) BASIC METABOLIC [id number] 12:52:00 Test Item Value Reference Range Interpretation [...] 8.3 mg/dl 8.0-10.5 N CA) CBC W/AUTO [id number] 12:42:00 Test Item Value Reference Range Interpretation [...] N NRBC#) - CT ABD PELVIS W/O [id number] 08:55:00 [facility] : 1970 Sex: M FAX: Nirav Cohen MD [place]: St: REG FAX: Jeremy Correia MD [phone] Name: ROSY MAGUIRE [facility] : 1970 Age/S: 50/M [address] [facility] Unit: [id number] Loc: [place], [place] [id number] Acct: [id number] Dis Date: Status: REG CLI PHONE #: [phone] Exam Date: 09/29/2020 0834 FAX #: [phone] Reason : RIGHT GROIN PAIN EXAMS: CPT CODE: [id number] CT ABD PELVIS W/O CONT 21481 HI STORY: Right inguinal pain, right lower [...] Signed Report (CONTINUED) FAX: Nirav Cohen MD [place]: St: REG FAX: Beth Correia MD [phone] Name: ROSY MAGUIRE [facility] : 1970 Age/S: 50/M [address] [facility] Unit: [id number] Loc: [place], [place]: [place] [address] Acct: [id number] Dis Date: Status: REG CLI PHONE #: [phone] Exam Date: 09/29/2020 0834 FAX #: [phone] Re ason: RIGHT GROIN PAIN EXAMS: CPT CODE: [id number] CT ABD PELVIS W/O CONT 90876 <Continued> IMPRESSION: Limited Study. Normal appendix seen [...] Technologist: LISA WATKINS Trnscrd Dt/Tm: 09/29/2020 (0855) [email or web address] Orig Print D/T: S: 09/29/2020 (4358 PAGE 2 Signed ReportBASIC METABOLIC PANEL 2020-09-17 [...] CA) 8.1 mg/dl 8.0-10.5 N CBC W/AUTO [id number] 06:29:00 Test Item Value Reference Range Interpretation [...] 0.00-0.01 N NRBC#) COVID 19 Asymptomatic IH [id number] 05:55:00 Test Item Value Reference Range Interpretation Comments COVID 19 NEGATIVE NEGATIVE Negative result s should be Asymptomatic IH AG treated a s presumptive and (test code = ifinconsistent with COVNONPUIAG) clinical signs and symptoms, or ne cessaryfor patient managem ent, should be tested with an alternativemole cular assay. Negative results do not preclude EBAZ-PjW-5tbppm tion and should not be u sed as the sole basis forp atient management deci sions. Negative result s should beconsidered in the context of a pa rc's recent exposure s,history, presence of cli nical signs and symptoms consistentwith COVID-19. LACTIC [id number] 09:23:00 Test Item Value Reference Range Interpretation Comments LACTIC ACID (test code = LACT) 1.0 MMOL/L 0.4-2.0 N BASIC METABOLIC [id number] 09:11:00 Test Item Value Reference Range Interpretation [...] 8.2 mg/dl 8.0-10.5 N CA) CBC W/AUTO [id number] 09:06:00 Test Item Value Reference Range Interpretation [...] 0.00 X10 3uL 0.00-0.01 N NRBC#) SURGICAL IDXVAHZMM5664-30-01 14:26:00 RUN DATE: 02/21/20 [facility] - LAB PAGE 1 RUN TIME: 1427 Specimen Inquiry RUN USER: INTERFACE PATIENT: ROSY MAGUIRE LOC: [place] U #: [id number] AGE/SX: 49/M ROOM: RE02/20/20[facility] DR: Saroj Coates MD : [birth year] BED: DIS: STATUS: [facility] TLOC: SPEC #: [id number] RECD: 02/20/20 STATUS: NEIL CRENSHAW #: [id number] BENEDICTO: 02/20/20 [facility] DR: Saroj Coates MD ENTERED: 02/20/20 [...] approximately 1 x 1 x 1 cm. Geodesist sections are submitted asfollows: SECTION CODE: CONTINUED ON NEXT PAGE RUN DATE: 02/21/20 [facility] - LAB PAGE 2 RUN TIME: 1426 Specimen Inquiry RUN USER: INTERFACE SPEC #: [id number] PATIENT: ROSY MAGUIRE #[id number] (Con tinued) GROSS DESCRIPTION (Continued) A1-A2: First described small area A3-A5: Larger second described nodule RAB/th MICROSCOPIC DESCRIPTION Microscopic performed. Signed SIGNATURE ON FILE Rosemarie Ryder MD 02/21/20 1426 END OF REPORT [id number] 13:17:00 Test Item Value Reference Range Interpretation Comments GLUBED (test code = GLUBED) 101 MG/DL 70-105 N BASIC METABOLIC [id number] 06:39:00 Test Item Value Reference Range Interpretation [...] = CREAT) reported toFirs t Name:REVA Last Name:DAVID DE LA CRUZ READ BACK AND VERIFIEDby BEBETO BO, on 02/20/20, @ 0637. CALCIUM (test code = 8.8 mg/dL 8.8-10.2 N CA) CBC W/AUTO [id number] 06:35:00 Test Item Value Reference Range Interpretation [...] BA#) 0.05 x10 3/uL 0.0-0.20 N SPECIAL LLYMIETYN1216-61-69 17:02:005[facility]MISTRY 2018-07-12 17:02:005.8[facility]annSPECIAL QUXKNMFTP1008-53-29 17:02:005.8 [facility] HermannSPECIAL ZPODHDAGW2097-19-50 17:02:005.8[facility] QHBBURNDWI9480-20-22 16:58:0015.7[facility] EpacasrLHPNAOOPEV0641-44-05 16:58:00 82.5[facility] DycrxqnUKDHQYEPGY2173-73-41 16:58:0012.1[facility]annHEMATOLOGY 2018-07-12 16:58:004.49[facility] HjrcwsrWMVUFOUKFK9446-18-46 16:58:0010.7[facility] BbhrtbrLYACNJISHA7014-66-49 16:58:000.6[facility] SelqbugMKTKGRPFRU5883-91-80 16:58:004.6[facility] IstdisqUWDUXNNVWZ1569-39-43 16:58:007.0[facility] Rob NSBGVEPROB0187-85-77 16:58:002.4[facility] SslryojDITRFMXGUD1012-83-81 16:58:000.8 [facility] XonspebXNUDMIIZLR7568-07-99 16:58:0022.5[facility] HermannHEMATOLOGY 2018-07-12 16:58:007.2[facility] VwpaqkfXTBCGGIVRY5726-51-29 16:58:000.5[facility] BfkdbkpXWXKUOEDIY2648-82-77 16:58:000.1[facility] GyroecvMDCPVVZXNM7904-27-87 16:58:0065.1[facility]annBLOOD BANK RHUXMTS1957-17-06 16:58:00Negative (07/12/18 11:58 AM)[facility] GdtdiupEFJVZCRNIALV4389-00-82 16:58:0010.2[facility] OakwxosPOXTQPQSEIUE1985-35-81 16:58:0019[facility] ZqxcoadFAZBJXYJVDWG8540-21-61 16:58:008.0[facility] IgynecwXJVTZFWAEQXK6024-72-29 16:58:0026[facility] ZRNXWQVSVQWR2678-86-41 16:58:003.53[facility] IfcfqawQEHCDLCIVAGT0616-76-15 16:58:0033[facility] LrfblvkVGVENKRDVUEN2978-15-72 16:58:0086[facility] TEGVEYECFSUY5533-24-18 16:58:17475Rieudxbf YvvggxxXXTSCDNFQJEV4016-88-73 16:58:84697Wmamhrrn PkotbrwPLPYJREDIEPG6463-38-41 16:58:005.2[facility] SECXPPRWNC7264-63-49 16:58:00 Test Item Value Reference Range Interpretation Comments PTT (test code = PTT) 34.8 s 22.9-35.8 [facility] NorthwestOkccdldXZDBPPRSEA2386-19-72 16:58:00 Test Item Value Reference Range Interpretation Comments INR (test code = INR) 0.94 1 0.85-1.17 [facility] EfbepfnGULPIMLSRI8928-41-55 16:58:00 Test Item Value Reference Range Interpretation Comments PT (test code = PT) 12.6 s 12.0-14.7 [facility] NorthwestLrxqqlbYOIWMGTZZZ9663-10-67 16:58:41358Ykrbxosr HermannHEMATOLOGY 2018-07-12 16:58:007.6[facility] VfabakeVFPCEHOHIM9913-81-53 16:58:0037.0[facility] ZwzlpaaVQHWVUAMGQ7107-62-09 16:58:00 Test Item Value Reference Range Interpretation Comments MCH (test code = MCH) 27.0 pg 27.0-31.0 [facility] KowtjwdJNOAWNAPTG4977-45-68 16:58:0032.7[facility] HermannHEMATOLOGY 2018-07-12 16:58:0015.7[facility] KyuimopXGTIFHDQHN5171-79-37 16:58:0082.5[facility] MxlcahkFJCFOXFOHJ8401-44-50 16:58:0012.1[facility] FopjjueREPHGJGYOH7957-35-82 16:58:004.49[facility] OomnhbfMLBPCEBHXF3834-08-83 16:58:0010.7[facility] ZEFLCRLSKB6054-60-49 16:58:000.6[facility] CoomcvhNLVNFUEYSB4307-37-41 16:58:004.6 [facility] YomaoalNGFYXFMSAF8948-18-56 16:58:007.0[facility]annHEMATOLOGY 2018-07-12 16:58:002.4[facility] ImdmmpnLETLUJSSBK5450-75-53 16:58:000.8[facility] IruxxyjRHDAMPEBPJ0139-50-11 16:58:0022.5[facility] LhyjkqvAOLFJYBVER9248-12-46 16:58:007.2[facility] ZodurxqOBJULTCZJC8088-16-39 16:58:000.5[facility] Rob QFMOQGBUHY7315-65-16 16:58:000.1[facility] McrpcokPKJIYXCMLX5231-00-59 16:58:00 65.1[facility]annBLOOD BANK IEKKZEX3200-63-04 16:58:00Negative (07/12/18 11:58 AM)[facility] MrcszqcQPYTNNFMOKZP7710-97-62 16:58:0010.2[facility] Rob OSZYFHNCEBEN2734-65-48 16:58:0019[facility] RchpjeyVRFUZILYBUSZ0308-90-24 16:58:00 8.0[facility] QfmzcwtVIKGLYWMHSZA2847-37-31 16:58:0026[facility] HermannELECTROLYTES 2018-07-12 16:58:003.53[facility] XboltgfLIAYZHJWOBLD0244-54-58 16:58:0033[facility] VmhojnyMXNUGCCAEGLH4881-06-12 16:58:0086[facility] QqecizgWWGYSRHPMAHW4204-28-28 16:58:93236Hdacjuep EpvjgowYWNUBJUFEDSN1141-15-74 16:58:71437Dpxnlany [facility] TYHKZTHOVIBO6748-31-62 16:58:005.2[facility] YejrmcvLHQOHAVCXC4882-89-31 16:58:00 Test Item Value Reference Range Interpretation Comments PTT (test code = PTT) 34.8 s 22.9-35.8 [facility] HnddivnIIDWWHZJMA8704-35-24 16:58:00 Test Item Value Reference Range Interpretation Comments INR (test code = INR) 0.94 1 0.85-1.17 [facility] NolqudkEIHCFIODCB0480-72-59 16:58:00 Test Item Value Reference Range Interpretation Comments PT (test code = PT) 12.6 s 12.0-14.7 [facility] DofbnrsQJUJDSMAST1591-56-91 16:58:49049Cqxywnyg HermannHEMATOLOGY 2018-07-12 16:58:007.6[facility] PrwshjaPQAPDIMUFQ5799-56-10 16:58:0037.0[facility] JuyrajvLWUNJQHAOG9367-60-15 16:58:00 Test Item Value Reference Range Interpretation Comments MCH (test code = MCH) 27.0 pg 27.0-31.0 [facility] XykxttoCYTYKHQULU5107-89-53 16:58:0032.7[facility] HermannHEMATOLOGY 2018-07-12 16:58:0015.7[facility] FpktdwrYGVGOLRRFX1825-77-97 16:58:0082.5[facility] TbdrlmpDKXIMSIZMJ8889-21-28 16:58:0012.1[facility] YrclcnoBTPZQSRKGK5540-59-25 16:58:004.49[facility] YpptrcjFIJSAUTNDW9507-71-74 16:58:0010.7[facility] ZGXBVGJESF2995-29-95 16:58:000.6[facility] AhbijimVJWFUNZTKE8450-85-77 16:58:004.6 [facility] BhtmawuRZXHCTODQO2905-07-18 16:58:007.0[facility] HermannHEMATOLOGY 2018-07-12 16:58:002.4[facility] GwkppruFTCANXEIOL1684-46-63 16:58:000.8[facility] OtvuvmzPKBNBYWRYM1795-27-34 16:58:0022.5[facility] RnztogtTZDSLSTQWV6208-04-86 16:58:007.2[facility] OwojpjnFAAMPYXCUY5717-15-96 16:58:000.5[facility] Rob BEZWTDJIFO1940-31-09 16:58:000.1[facility] MgyhrpmVIHMQLTLEJ6133-95-48 16:58:00 65.1[facility]annBLOOD BANK MOGFTUH7184-88-34 16:58:00Negative (07/12/18 11:58 AM)[facility] ApuemcxJVPOQTAOAOLG4685-57-28 16:58:0010.2[facility] MDBKODRDETRZ6264-69-26 16:58:0019[facility] CpbzyntRZCRJFUWPFAY5893-86-59 16:58:00 8.0[facility] MzbkfnnWHLHWFHOLGBS1423-28-35 16:58:0026[facility] HermannELECTROLYTES 2018-07-12 16:58:003.53[facility] PcscaocBXTDGOGMRAQU4182-45-16 16:58:0033[facility] OtahfeyUHEBJDHUYJWN6179-83-80 16:58:0086[facility] OxkuwxpMMKPKQYWHZYI4949-08-10 16:58:10227Wptyfjgk YyhkjakPJQXJVUQZAIM0455-72-73 16:58:33774Rwawbcer [facility] HQMQVIPFJKRF7632-09-47 16:58:005.2[facility] WxcabffVGDKOZVCMU2931-69-90 16:58:00 Test Item Value Reference Range Interpretation Comments PTT (test code = PTT) 34.8 s 22.9-35.8 [facility] XlzfwqaWQUYIBRMYU0534-14-61 16:58:00 Test Item Value Reference Range Interpretation Comments INR (test code = INR) 0.94 1 0.85-1.17 [facility] IsjmehsDWJHBGAPPW5666-78-82 16:58:00 Test Item Value Reference Range Interpretation Comments PT (test code = PT) 12.6 s 12.0-14.7 [facility] ZlffipdDLGJAIJIOH0991-73-17 16:58:15949Kojxmxxg [facility]annHEMATOLOGY 2018-07-12 16:58:007.6[facility] OzjtmlgPCSSIGCBAN6219-94-13 16:58:0037.0[facility] ZaogjdwAIWIIVYTJB7439-26-82 16:58:00 Test Item Value Reference Range Interpretation Comments MCH (test code = MCH) 27.0 pg 27.0-31.0 [facility] MsawgdaGTALKJYAER4775-86-45 16:58:0032.7[facility] HermannHEMATOLOGY 2018-07-12 16:58:0015.7[facility] LptywqeIBXNKHAVSG6434-17-08 16:58:0082.5[facility] YfvniiaAKZNCZLPOY9612-18-25 16:58:0012.1[facility] XigdjynMPEIROQHLG1431-30-86 16:58:004.49[facility] RhensbzALRFSUZLAV0320-95-55 16:58:0010.7[facility] Rob YHTKMDDEMV6074-46-30 16:58:000.6[facility] ZacjspuOPQZDJQPPN6522-79-98 16:58:004.6 [facility] PziblndDEEIOBOSDJ6172-01-29 16:58:007.0[facility] HermannHEMATOLOGY 2018-07-12 16:58:002.4[facility] JcukktnVGKYEASUBF2487-64-99 16:58:000.8[facility] CrowhnmDSLWZYZYVC8330-08-37 16:58:0022.5[facility] FoefypiPNXPYPSBIG5671-87-11 16:58:007.2[facility] ZevbweeVZBZAUXWHA5674-86-42 16:58:000.5[facility] Rob XBZCJYIPJA4093-27-57 16:58:000.1[facility] YqgfuymYZNWXWJJVJ7914-28-82 16:58:00 65.1[facility]annBLOOD BANK DOIFJOL4185-46-66 16:58:00Negative (07/12/18 11:58 AM)[facility] HrokjewYFNHYBJWFGSF3728-08-33 16:58:0010.2[facility] Rob HYSNAMEAFKLO2447-51-34 16:58:0019[facility] WsvyanpAIBQNYLAQIJD3668-95-02 16:58:00 8.0[facility] ZwvicgtTDKEECMEATAF0941-49-87 16:58:0026[facility] HermannELECTROLYTES 2018-07-12 16:58:003.53[facility] NbblxjcDXPZMWEZHUCE2094-33-98 16:58:0033[facility] KielyjnXKBLFZBXIWGV4349-72-18 16:58:0086[facility] RgcscbqTPXTJXPTDDDP3502-74-18 16:58:66304Cbghiydd TwwlqhePASQSPGWBCNI4309-68-40 16:58:29856Tniruied [employer] [facility] [employer] NMROQDWGFBZD3831-87-04 16:58:005.2[facility] AzgjutyRWFCZYBCXP1364-00-86 16:58:00 Test Item Value Reference Range Interpretation Comments PTT (test code = PTT) 34.8 s 22.9-35.8 [facility] NorthwestVqdxtfxQBRPATBMEG2381-60-92 16:58:00 Test Item Value Reference Range Interpretation Comments INR (test code = INR) 0.94 1 0.85-1.17 [facility] NorthwestYgixrppDMGVXNZHLQ9461-71-48 16:58:00 Test Item Value Reference Range Interpretation Comments PT (test code = PT) 12.6 s 12.0-14.7 [facility] NorthwestTtuuvgyCISCLXPCLV9778-86-32 16:58:38233Ofwvwbrg HermannHEMATOLOGY 2018-07-12 16:58:007.6[facility] NoqphxsZTPEYRFDBG9119-91-93 16:58:0037.0[facility] HqssqyuLUQADPMNOM2184-63-45 16:58:00 Test Item Value Reference Range Interpretation Comments MCH (test code = MCH) 27.0 pg 27.0-31.0 [facility] MtnhvkzSJROBBSRAL4190-37-49 16:58:0032.7[facility] Rob
== END 2022-05-07 10:22 | disposition home or self-care (01) ==
LOC: ER 16:04 → ERHOLD 20:33 → 4TH 21:43
PROVIDERS: ADMIT Internal Medicine; ATTEND Internal Medicine Sleep Medicine
DX: R55 Syncope and collapse (principal); E11.22 Type 2 diabetes mellitus with diabetic chronic kidney disease; I12.0 Hypertensive chronic kidney disease with stage 5 chronic kidney disease or end stage renal disease; N18.6 End stage renal disease; Z99.2 Dependence on renal dialysis; I05.0 Rheumatic mitral stenosis; I73.9 Peripheral vascular disease, unspecified; M06.9 Rheumatoid arthritis, unspecified; M54.2 Cervicalgia; M25.519 Pain in unspecified shoulder; R07.9 Chest pain, unspecified; F17.210 Nicotine dependence, cigarettes, uncomplicated; Z79.01 Long term (current) use of anticoagulants; Z79.4 Long term (current) use of insulin; Z79.899 Other long term (current) drug therapy; Z88.8 Allergy status to other drugs, medicaments and biological substances; Z85.528 Personal history of other malignant neoplasm of kidney; Z90.5 Acquired absence of kidney; Z89.511 Acquired absence of right leg below knee; Z89.422 Acquired absence of other left toe(s); Z96.659 Presence of unspecified artificial knee joint; Z20.822 Contact with and (suspected) exposure to COVID-19
CPT/HCPCS: 36415; 70450; 71045; 72125; 80048; 80061; 80076; 82947; 83735; 83880; 84443; 84484; 85025; 85610; 93005; 96374; 99285; G0378; J3010; U0003

== ENCOUNTER 2022-05-11 10:53 | Inpatient (IN) | payer OTHER ==
[2022-05-11] MEDS ORDERED: METOPROLOL TARTRATE 5 MG/5 ML INJ IV ONE (11:48)
[2022-05-11 12:03] LABS: Absolute Lymphocytes (CBC) 0.8 K/uL (0.7-4.9); Hematocrit 32.3 % (39.6-49.0); Lymphocytes % 17.4 % (15.3-44.8); MCV 87.3 fL (80-100); MPV 7.5 fL (7.6-11.3)
--- NOTE | 2022-05-11 12:11 | RAD REPORT ---
EXAM DESCRIPTION: Jayson Single View05/11/2022 11:36 am CLINICAL HISTORY: Chest pain COMPARISON: May 06, 2022 FINDINGS: Chronic elevation of the left hemidiaphragm Left lung base is mildly hazy which may represent atelectasis or infiltrate Right lung appears clear. Heart is normal size
[2022-05-11 12:25] LABS: Potassium 3.5 mmol/L (3.5-5.1); Troponin High Sensitivity 36.6 pg/mL (<58.9)
[2022-05-11] MEDS ORDERED: AMIODARONE HCL 150 MG/3 ML INJ IV ONE (14:13)
[2022-05-11] MEDS ORDERED: AMIODARONE IN DEXTROSE,ISO-OSM 360 MG/200 ML BAG IV ONE (14:14)
[2022-05-11] MEDS ORDERED: D5W 100 ML IV ONE (14:15)
[2022-05-11] MEDS ORDERED: HYDROCODONE/APAP 5/325 MG TAB PO PRN (16:34)
[2022-05-11] MEDS ORDERED: AMITRIPTYLINE 50 MG TAB PO PRN (16:38)
[2022-05-11] MEDS ORDERED: ONDANSETRON 4 MG/2 ML VIAL IV PRN (16:42)
[2022-05-11] MEDS ORDERED: ACETAMINOPHEN 500 MG TAB PO PRN (16:42)
--- NOTE | 2022-05-11 16:47 | P.HP ---
Certification for Inpatient Patient admitted to: Inpatient With expected LOS: >2 Midnights Patient will require the following post-hospital care: None Practitioner: I am a practitioner with admitting privileges, knowledge of patient current condition, hospital course, and medical plan of care. Services: Services provided to patient in accordance with Admission requirements found in Title 42 Section 412.3 of the Code of Federal Regulations Patient History Date of Service: 05/11/22 Reason for admission: A. fib with RVR History of Present Illness: Patient is a 51-year-old male with a past medical history significant for ESRD, DM 2, Syncope, hypertension, cannabis use who presents with complaint of dizziness and near syncope while at dialysis today. Patient reported associated signs and symptoms of palpitations, fatigue, weakness, headache and left chest wall pain. Patient rated pain as 6/10 in severity and described as intact in quality. Patient denies any other signs or symptoms. Symptoms are aggravated or relieved by nothing. Patient was brought to the hospital for medical evaluation. Of note, patient reports that he was in the hospital 5 days ago for similar symptoms. Allergies lorazepam [From Ativan] Allergy (Verified 04/14/22 00:33) Hives/Rash Home Medications: Amitriptyline HCl 50 mg PO BEDTIME PRN PRN 04/14/22 Apixaban [Eliquis *] 2.5 mg PO DAILY 04/14/22 Difluprednate [Durezol] 1 drop EACH EYE BID 04/14/22 Doxazosin [Cardura*] 4 mg PO BID 04/14/22 Hydralazine HCl 50 mg PO TID 04/14/22 Lanthanum Carbonate 1 tab PO PC 04/14/22 Lisinopril [Zestril] 20 mg PO BID 04/14/22 Omeprazole [Prilosec] 40 mg PO DAILY 04/14/22 clonazePAM [Clonazepam] 1 mg PO BID 04/14/22 Cholecalciferol (Vitamin D3) [Vitamin D 1000 Iu Tab*] 1,000 unit PO DAILY #30 tab 04/18/22 Hydrocodone 7.5/APAP 325 [[place] 7.5/325 mg*] 1 tab PO Q6H PRN #30 tab 04/18/22 - Past Medical/Surgical History Diabetic: Yes -: HTN -: rheumatoid arthritis -: ESRD on HD -: kidney cancer -: Type 2 diabetes -: total knee replacement -: L little toe amputation -: BKA R -: upper neck fusion with broken screws -: wrist surgery -: R nephrectomy -: left hand surgery Psychosocial/ Personal History: Patient is . He has a brother and a son. - Family History Mother -: Other (see notes) Notes: no known medical history - Social History Smoking Status: Current every day smoker Smoking therapy provided: Yes Alcohol use: No CD- Drugs: Yes Caffeine use: No Review of Systems General: Weakness, Malaise, Other (Fatigue ) Eyes: Unremarkable ENT: Unremarkable Respiratory: Unremarkable Cardiovascular: Chest Pain, Palpitations, Unremarkable Gastrointestinal: Unremarkable Genitourinary: Unremarkable Musculoskeletal: Unremarkable Integumentary: Unremarkable Neurological: Weakness Lymphatics: Unremarkable Physical Examination - Physical Exam General: Alert, Oriented x3 HEENT: Normocephalic, PERRLA Neck: 2+ carotid pulse no bruit, JVD not distended Respiratory: Clear to auscultation bilaterally, Normal air movement Cardiovascular: No edema, Irregular heart rate/rhythm Capillary refill: <2 Seconds Gastrointestinal: Normal bowel sounds, Soft and benign Musculoskeletal: No clubbing, No contractures Integumentary: No rashes, No breakdown, No significant lesion Neurological: Normal speech, Normal tone Lymphatics: No axilla or inguinal lymphadenopathy - Studies Laboratory Data (last 24 hrs) 05/11/22 11:45: WBC 4.6 D, Hgb 10.6 L, Hct 32.3 L, Plt Count 143 L 05/11/22 11:45: Sodium 138, Potassium 3.5, BUN 31 H, Creatinine 6.38 H* D, Glucose 88 Assessment and Plan - Plan -- A. fib with RVR. Patient was started on amiodarone bolus infusion in the ER and the frequency of pulses increased. Amiodarone infusion stopped and A. fib self-resolved lf. Cardiology consulted. Continue Eliquis. Will await further recommendations. --DM2. BS monitoring with sliding scale insulin. --ESRD. Patient on hemodialysis MWF. Nephrology consulted. Will await further recommendations. --History of frequent syncope\dizziness. Patient being considered for a pacemaker placement.Further mgt per Cardiaology --Cannabis use disorder. Patient counseled on drug cessation. --Hypertension. Stable. Continue home medications. -Chest pain. Likely atypical. Will trend serial troponins.-Telemetry to monitor for any significant arrhythmia. Further management per reeling machine setup operator. -- Anxiety disorder\depression.. Continue home medication. --Anemia of chronic disease. H&H stable. We will continue monitor hemoglobin and transfuse if less than 7.0. --GERD. Continue home medication --Right BKA. Continue supportive care. --DVT prophylaxis with heparin subQ. Discharge Plan: Home Plan to discharge in: Greater than 2 days - Advance Directives Does patient have a Living Will: Yes Does patient have a Durable POA for Healthcare: Yes - Code Status/Comfort Care Code Status Assessed: Yes Code Status: Full Code Physician Review: Patient Assessed, Agree with Above Assessment and Plan Critical Care: No
[2022-05-11] MEDS ORDERED: LANTHANUM 1000 MG TAB PO SCH (17:30)
--- NOTE | 2022-05-11 18:22 | EDPHYS ---
Physician Documentation [facility] Name: Vladimir Maguire Age: 51 yrs Sex: Male : 1970 Arrival Date: 05/11/2022 Time: 11:07 Bed 3 Private MD: ED Physician Espinoza Saleem HPI: 05/11 18:17 This 51 yrs old Male presents to ER via EMS with complaints of Chest Pain, kdr Syncope. 18:17 Patient was sent from dialysis for irregular heart rate. Patient had had some kdr palpitations and chest discomfort. He denies any prior episodes like this. Patient states that he is generally been asymptomatic. He is not sure why he is brought to the ED today. Onset: The symptoms/episode began/occurred suddenly, just prior to arrival. Severity of symptoms: At their worst the symptoms were mild in the emergency department the symptoms are unchanged. It is unknown whether or not the patient has had similar symptoms in the past. It is unknown whether or not the patient has recently seen a physician. On arrival to the ED, the patient was in a irregular tachycardia. Not clear whether this was a flutter rhythm or a A. fib RVR scenario. Patient nonetheless was hemodynamically stable. Historical: - Allergies: 11:08 Ativan; ss - PMHx: 11:08 Diabetes - NIDDM; Hypertension; neuropathy; Renal Disease; Rheumatoid Arthritis; ss - PSHx: 11:08 dialysis site to left arm; RIGHT BKA; ss ROS: 18:17 Constitutional: Negative for fever, chills, and weight loss, Eyes: Negative for injury, kdr pain, redness, and discharge, Neck: Negative for injury, pain, and swelling, Respiratory: Negative for shortness of breath, cough, wheezing, and pleuritic chest pain, Abdomen/GI: Negative for abdominal pain, nausea, vomiting, diarrhea, and constipation, Back: Negative for injury and pain, : Negative for injury, bleeding, discharge, and swelling, MS/Extremity: Negative for injury and deformity, Skin: Negative for injury, rash, and discoloration, Neuro: Negative for headache, weakness, numbness, tingling, and seizure activity. Psych: Negative for depression, anxiety, suicide ideation, homicidal ideation, and hallucinations, Allergy/Immunology: Negative for hives, rash, and allergies, Endocrine: Negative for neck swelling, polydipsia, polyuria, polyphagia, and marked weight changes, Hematologic/Lymphatic: Negative for swollen nodes, abnormal bleeding, and unusual bruising. 18:17 Cardiovascular: Positive for chest pain, palpitations, Negative for edema, orthopnea, acute changes. Exam: 11:40 ECG was reviewed by the Attending Physician. kdr 18:17 Constitutional: This is a well developed, well nourished patient who is awake, alert, kdr and in no acute distress. Head/Face: Normocephalic, atraumatic. Eyes: Pupils equal round and reactive to light, extra-ocular motions intact. Lids and lashes normal. Conjunctiva and sclera are non-icteric and not injected. Cornea within normal limits. Periorbital areas with no swelling, redness, or edema. Neck: Trachea midline, no thyromegaly or masses palpated, and no cervical lymphadenopathy. Supple, full range of motion without nuchal rigidity, or vertebral point tenderness. No Meningismus. Chest/axilla: Normal chest wall appearance and motion. Nontender with no deformity. No lesions are appreciated. Cardiovascular: Regular rate and rhythm with a normal S1 and S2. No gallops, murmurs, or rubs. Normal PMI, no JVD. No pulse deficits. Respiratory: Lungs have equal breath sounds bilaterally, clear to auscultation and percussion. No rales, rhonchi or wheezes noted. No increased work of breathing, no retractions or nasal flaring. Abdomen/GI: Soft, non-tender, with normal bowel sounds. No distension or tympany. No guarding or rebound. No evidence of tenderness throughout. Back: No spinal tenderness. No costovertebral tenderness. Full range of motion. Skin: Warm, dry with normal turgor. Normal color with no rashes, no lesions, and no evidence of cellulitis. Neuro: Awake and alert, GCS 15, oriented to person, place, time, and situation. Cranial nerves II-XII grossly intact. Motor strength 5/5 in all extremities. Sensory grossly intact. Cerebellar exam normal. Normal gait. Psych: Awake, alert, with orientation to person, place and time. Behavior, mood, and affect are within normal limits. 18:17 Musculoskeletal/extremity: Patient has a right leg amputation otherwise his extremities are unremarkable. Vital Signs: 11:10 BP 150 / 105; Pulse 120; Resp 15 S; Temp 98.1(TE); Pulse Ox 100% on R/A; ss 11:30 BP 136 / 95; Pulse 112; Resp 20 S; Pulse Ox 100% on R/A; Weight 97 kg (R); aa5 11:53 BP 134 / 83; Pulse 120; Resp 14 S; Pulse Ox 100% on R/A; aa5 12:02 BP 115 / 66; Pulse 115; Resp 14 S; Pulse Ox 100% on R/A; aa5 12:15 BP 122 / 78; Pulse 105; Resp 14 S; Pulse Ox 100% on R/A; aa5 13:21 BP 125 / 81; Pulse 114; Resp 14 S; Pulse Ox 100% on R/A; aa5 13:45 BP 109 / 81; Pulse 120; Resp 17 S; Temp 97.5(TE); Pulse Ox 100% on R/A; aa5 14:23 BP 92 / 79; Pulse 130; Resp 18 S; Pulse Ox 98% on R/A; aa5 14:30 BP 116 / 99; Pulse 129; Resp 18 S; Pulse Ox 100% on R/A; aa5 14:45 BP 114 / 99; Pulse 121; Resp 17 S; Pulse Ox 99% on R/A; aa5 15:00 BP 157 / 94; Pulse 82; Resp 18 S; Pulse Ox 99% on R/A; aa5 15:40 BP 134 / 90; Pulse 78; Resp 18 S; Pulse Ox 99% on R/A; aa5 16:10 BP 155 / 92; Pulse 78; Resp 18 S; Pulse Ox 100% on R/A; aa5 16:30 BP 158 / 90; Pulse 74; Resp 16 S; Pulse Ox 98% on R/A; aa5 17:00 BP 149 / 89; Pulse 80; Resp 16 S; Temp 98.0(TE); Pulse Ox 100% on R/A; aa5 17:30 BP 163 / 88; Pulse 78; Resp 16; Pulse Ox 100% on R/A; aa5 18:00 BP 137 / 83; Pulse 80; Resp 16 S; Pulse Ox 100% on R/A; aa5 18:40 BP 141 / 77; Pulse 79; Resp 18 S; Pulse Ox 100% on R/A; aa5 19:00 BP 161 / 85; Pulse 78; Resp 16 S; Temp 97.6(TE); Pulse Ox 100% on R/A; aa5 MDM: 18:17 Data reviewed: vital signs, nurses notes, lab test result(s), radiologic studies. [facility] Counseling: I had a detailed discussion with the patient and/or guardian regarding: the historical points, exam findings, and any diagnostic results supporting the discharge/admit diagnosis, lab results, radiology results, the need for further work-up and treatment in the hospital. 18:21 Patient medically screened. [facility] 05/11 11:17 Order name: Basic Metabolic Panel; Complete Time: 13:15 [facility] 05/11 11:17 Order name: CBC with Diff; Complete Time: 13:15 [facility] 05/11 11:17 Order name: Troponin HS; Complete Time: 13:15 [facility] 05/11 16:48 Order name: SARS-COV-2 RT PCR (Document "Date of Onset" if Symptomatic) [facility] 05/11 17:41 Order name: Glucose, Ancillary Testing [facility] 05/11 18:37 Order name: T4 Free [facility] 05/11 11:17 Order name: XRAY Chest (1 view) [facility] 05/11 18:37 Order name: Thyroid Stimulating Hormone [facility] 05/11 19:00 Order name: SARS-COV-2 RT PCR [facility] 05/11 19:24 Order name: Phosphorus [facility] 05/11 19:24 Order name: Magnesium [facility] 05/11 11:17 Order name: EKG; Complete Time: 11:17 [facility] 05/11 11:17 Order name: Cardiac monitoring; Complete Time: 11:22 [facility] 05/11 11:17 Order name: EKG - Nurse/Tech; Complete Time: 11:22 [facility] 05/11 11:17 Order name: IV Saline Lock; Complete Time: 11:53 [facility] 05/11 11:17 Order name: Labs collected and sent; Complete Time: 11:53 [facility] 05/11 11:17 Order name: O2 Per Protocol; Complete Time: 11:22 [facility] 05/11 11:17 Order name: O2 Sat Monitoring; Complete Time: 11:22 [facility] 05/11 17:30 Order name: Diet Renal; Complete Time: 17:30 aa5 EC:40 Rate is 114 beats/min. Rhythm is irregularly irregular, A fib with PACs. QRS [place] is kdr Normal. [place] interval is normal. QRS interval is normal. QT interval is normal. Clinical impression: Atrial Fibrillation. Administered Medications: 11:47 Drug: Lopressor (metoprolol) 5 mg Route: IVP; Site: right forearm; aa5 11:53 Drug: Lopressor (metoprolol) 5 mg Route: IVP; Site: right forearm; aa5 12:02 Drug: Lopressor (metoprolol) 5 mg Route: IVP; Site: right forearm; aa5 12:15 Follow up: Response: No adverse reaction aa5 14:15 Drug: amiodarone 150 mg Route: IVP; Site: right forearm; aa5 14:22 Follow up: Response: VO to d/c infusion aa5 14:35 Not Given (Physician Discretion): amiodarone 900 mg, D5W 500 ml IVPB at 1 mg/min aa5 continuous; for 6 hrs, then change to 0.5 mg/min Disposition Summary: 05/11/22 18:21 Hospitalization Ordered Hospitalization Status: Observation kdr Provider: Nathanael Jewell Condition: Fair kdr Problem: new kdr Symptoms: have improved kdr Bed/Room Type: Standard kdr Location: Intensive Care Unit(05/11/22 20:01) cg Room Assignment: -(05/11/22 20:01) Diagnosis - Paroxysmal atrial fibrillation - resollved kdr Forms: - Medication Reconciliation Form kdr - SBAR form kdr Signatures: Dispatcher [employer] EDMS Espinoza Saleem MD MD kdr Sagrario Garcia RN RN aa5 Margret Hopper RN RN ss Arielle Buckley RN RN cg Corrections: (The following items were deleted from the chart) 19:28 18:21 kdr cg 19:57 19:28 218 cg cg 20:01 18:21 Telemetry/MedSurg (observation) kdr cg 20:01 19:57 cg cg
--- NOTE | 2022-05-11 18:22 | ER ---
Nurse's Notes [facility] Name: Vladimir Maguire Age: 51 yrs Sex: Male : 1970 Arrival Date: 05/11/2022 Time: 11:07 Bed 3 Private MD: Diagnosis: Paroxysmal atrial fibrillation-resollved Presentation: 05/11 11:07 Chief complaint: Patient states: chest discomfort and syncopal episode today. ss Coronavirus screen: Client denies travel out of the [place] in the last 14 days. Ebola Screen: Patient denies exposure to infectious person. Patient denies travel to an Ebola-affected area in the 21 days before illness onset. Initial Sepsis Screen: Does the patient meet any 2 criteria? Does the patient have a suspected source of infection? No. Patient's initial sepsis screen is negative. Onset of symptoms was May 11, 2022. 11:07 Method Of Arrival: EMS: [facility] ss 11:07 Acuity: GINA 2 ss 11:10 Risk Assessment: Do you want to hurt yourself or someone else? Patient reports no aa5 desire to harm self or others. Historical: - Allergies: 11:08 Ativan; ss - PMHx: 11:08 Diabetes - NIDDM; Hypertension; neuropathy; Renal Disease; Rheumatoid Arthritis; ss - PSHx: 11:08 dialysis site to left arm; RIGHT BKA; ss Screenin:40 Abuse screen: Denies threats or abuse. Nutritional screening: No deficits noted. aa5 Tuberculosis screening: No symptoms or risk factors identified. 11:45 Fall Risk Secondary diagnosis (15 points) impaired mobility, IV access (20 points). aa5 Total Darden Fall Scale indicates Low Risk Score (25-44 pts). Fall prevention measures have been instituted. Side Rails Up X 2 Placed close to Nursing Station. Assessment: 11:10 General: Appears comfortable, Behavior is calm, cooperative. Pain: Complains of pain in aa5 chest Pain does not radiate. Pain currently is 4 out of 10 on a pain scale. Quality of pain is described as aching, Pain began 1-2 weeks ago Is intermittent. Neuro: Level of Consciousness is awake, alert, obeys commands, Oriented to person, place, time, situation. Cardiovascular: Heart tones S1 S2 present Rhythm is atrial fibrillation with rapid ventricular response Dialysis shunt: in the left arm, with palpable thrill, with auscultated bruit, with no erythema, with no edema, no bleeding noted. Respiratory: Airway is patent Respiratory effort is even, unlabored, Respiratory pattern is regular, symmetrical, Breath sounds are clear bilaterally. GI: Abdomen is round Bowel sounds present X 4 quads. Abd is soft and non tender X 4 quads. : No signs and/or symptoms were reported regarding the genitourinary system. EENT: No signs and/or symptoms were reported regarding the EENT system. Derm: Skin is dry, Skin is normal, Skin temperature is warm. Musculoskeletal: R BKA with prosthesis noted. 12:02 Reassessment: Pt sitting up in bed, states no complaints. . Neuro: Level of aa5 Consciousness is awake, alert, obeys commands, Oriented to person, place, time, situation. Respiratory: Airway is patent Respiratory effort is even, unlabored, Respiratory pattern is regular, symmetrical. Derm: Skin is dry, Skin is normal, Skin temperature is warm. 13:11 Reassessment: HR was noted to be A-fib with RVR at 142bpm, notified Dr. Saleem and aa5 while Dr. Saleem was viewing monitor, pt had 5 second pause and HR was noted to be 115bpm [place] after pause. Checked on patient right away and pt denies any symptoms, denies CP, denies palpitations. No order for repeat EKG at this time. . 14:00 Reassessment: Pt's mother at bedside. . aa5 14:00 Cardiovascular: Rhythm is atrial fibrillation with rapid ventricular response. aa5 14:00 General: Appears comfortable. Pain: Denies pain. Neuro: Level of Consciousness is aa5 awake, alert, obeys commands, Oriented to person, place, time, situation. Respiratory: Airway is patent Respiratory effort is even, unlabored, Respiratory pattern is regular, symmetrical. Derm: Skin is dry, Skin is normal, Skin temperature is warm. 15:05 Reassessment: Repeat EKG completed and read by . aa5 15:05 Reassessment: A-fib with RVR with 5 to 6 second frequent pauses noted on monitor aa5 started at 1422 and continued until 1452, pt c/o of feeling dizzy and lightheaded and appeared uncomfortable during this time, MD aware, one-on-one monitoring during this time, transfer was initiated by . At 1454 NSR on monitor was noted and repeat EKG was ordered. Pt continues to be NSR at this time and reports improvement of symptoms. Pt currently resting in bed with eyes closed, easy to awaken to verbal stimuli. . 15:30 Reassessment: Pt resting with eyes closed, still c/o feeling dizzy and lightheaded but aa5 states symptoms are improving. . Cardiovascular: Rhythm is sinus rhythm. 15:30 Reassessment: Dr. Saleem at bedside updating pt on POC, transfer was cancelled and pt aa5 will be admitted at this facility. . 16:00 Reassessment: Pt resting in bed with eyes closed, states symptoms are improving. Pt's aa5 mother at bedside. . Cardiovascular: Rhythm is sinus rhythm. 16:30 Neuro: Level of Consciousness is awake, alert, obeys commands, Oriented to person, aa5 place, time, situation. Cardiovascular: Rhythm is sinus rhythm. Respiratory: Airway is patent Respiratory effort is even, unlabored, Respiratory pattern is regular, symmetrical. Derm: Skin is dry, Skin is normal, Skin temperature is warm. 16:30 General: Appears comfortable, Pt sitting up in bed, denies any symptoms. . aa5 17:30 Reassessment: Pt sitting up in bed eating dinner, pt states feeling better and appears aa5 comfortable. . Pain: Denies pain. 17:40 Reassessment: Hospitalist at bedside . aa5 18:30 General: Appears comfortable, Awaiting room assignment . Neuro: Level of Consciousness aa5 is awake, alert, obeys commands, Oriented to person, place, time, situation. Cardiovascular: Rhythm is sinus rhythm. Respiratory: Airway is patent Respiratory effort is even, unlabored, Respiratory pattern is regular, symmetrical. Derm: Skin is dry, Skin is normal, Skin temperature is warm. Vital Signs: 11:10 BP 150 / 105; Pulse 120; Resp 15 S; Temp 98.1(TE); Pulse Ox 100% on R/A; ss 11:30 BP 136 / 95; Pulse 112; Resp 20 S; Pulse Ox 100% on R/A; Weight 97 kg (R); aa5 11:53 BP 134 / 83; Pulse 120; Resp 14 S; Pulse Ox 100% on R/A; aa5 12:02 BP 115 / 66; Pulse 115; Resp 14 S; Pulse Ox 100% on R/A; aa5 12:15 BP 122 / 78; Pulse 105; Resp 14 S; Pulse Ox 100% on R/A; aa5 13:21 BP 125 / 81; Pulse 114; Resp 14 S; Pulse Ox 100% on R/A; aa5 13:45 BP 109 / 81; Pulse 120; Resp 17 S; Temp 97.5(TE); Pulse Ox 100% on R/A; aa5 14:23 BP 92 / 79; Pulse 130; Resp 18 S; Pulse Ox 98% on R/A; aa5 14:30 BP 116 / 99; Pulse 129; Resp 18 S; Pulse Ox 100% on R/A; aa5 14:45 BP 114 / 99; Pulse 121; Resp 17 S; Pulse Ox 99% on R/A; aa5 15:00 BP 157 / 94; Pulse 82; Resp 18 S; Pulse Ox 99% on R/A; aa5 15:40 BP 134 / 90; Pulse 78; Resp 18 S; Pulse Ox 99% on R/A; aa5 16:10 BP 155 / 92; Pulse 78; Resp 18 S; Pulse Ox 100% on R/A; aa5 16:30 BP 158 / 90; Pulse 74; Resp 16 S; Pulse Ox 98% on R/A; aa5 17:00 BP 149 / 89; Pulse 80; Resp 16 S; Temp 98.0(TE); Pulse Ox 100% on R/A; aa5 17:30 BP 163 / 88; Pulse 78; Resp 16; Pulse Ox 100% on R/A; aa5 18:00 BP 137 / 83; Pulse 80; Resp 16 S; Pulse Ox 100% on R/A; aa5 18:40 BP 141 / 77; Pulse 79; Resp 18 S; Pulse Ox 100% on R/A; aa5 19:00 BP 161 / 85; Pulse 78; Resp 16 S; Temp 97.6(TE); Pulse Ox 100% on R/A; aa5 ED Course: 11:07 Patient arrived in ED. ss 11:08 Triage completed. ss 11:08 Arm band placed on right wrist. ss 11:10 Patient has correct armband on for positive identification. Placed in gown. Bed in low aa5 position. Call light in reach. Side rails up X2. Client placed on continuous cardiac and pulse oximetry monitoring. NIBP monitoring applied. 11:16 Espinoza Saleem MD is Attending Physician. kdr 11:38 XRAY Chest (1 view) In Process Unspecified. EDMS 11:45 Initial lab(s) drawn, by me, sent to lab. Inserted saline lock: 20 gauge in right aa5 forearm, using aseptic technique. Blood collected. 11:45 No provider procedures requiring assistance completed. Patient maintains SpO2 aa5 saturation greater than 95% on room air. 11:54 Sagrario Garcia, NINA is Primary Nurse. aa5 18:20 Nathanael Jewell MD is Hospitalizing Provider. kdr 18:21 Patient admitted, IV remains in place. aa5 19:00 Report given to NINA Rios. aa5 Administered Medications: 11:47 Drug: Lopressor (metoprolol) 5 mg Route: IVP; Site: right forearm; aa5 11:53 Drug: Lopressor (metoprolol) 5 mg Route: IVP; Site: right forearm; aa5 12:02 Drug: Lopressor (metoprolol) 5 mg Route: IVP; Site: right forearm; aa5 12:15 Follow up: Response: No adverse reaction aa5 14:15 Drug: amiodarone 150 mg Route: IVP; Site: right forearm; aa5 14:22 Follow up: Response: VO to d/c infusion aa5 14:35 Not Given (Physician Discretion): amiodarone 900 mg, D5W 500 ml IVPB at 1 mg/min aa5 continuous; for 6 hrs, then change to 0.5 mg/min Medication: 18:21 VIS not applicable for this client. aa5 Outcome: 18:21 Decision to Hospitalize by Provider. kdr 20:22 Admitted to ICU Other talked to annual greenhouse manager. Taking patient up to do bedside tw5 report. Report called to Attempted to call report was told nurse is giving meds 20:35 Patient left the ED. tw5 Signatures: Dispatcher [employer] EDTX Espinoza Saleem MD MD kdr Sagrario Garcia RN RN aa5 Margret Hopper RN RN ss Wood, Tiffany tw5 Corrections: (The following items were deleted from the chart) 11:54 11:07 Smirch, Margret, RN is Primary Nurse. ss aa5 11:54 11:54 Primary Nurse role handed off by Margret Hopper, RN [facility] aa5 13:32 11:40 Fall Risk Secondary diagnosis (15 points) impaired mobility, IV access (20 aa5 points). Total Darden Fall Scale indicates Low Risk Score (25-44 pts). Fall prevention measures have been instituted. Side Rails Up X 2 Placed close to Nursing Station [facility] 19:58 11:10 Musculoskeletal: R BKA [facility] aa5 20:03 13:45 BP 109 / 81; Pulse 140bpm; Resp 17bpm; Spontaneous; Pulse Ox 100% RA; Temp 97.5F aa5 Temporal; aa 20:12 11:30 BP 136 / 95; Pulse 112bpm; Resp 20bpm; Spontaneous; Pulse Ox 100% RA; [place] [id number]
[2022-05-11 18:37] LABS: Thyroid Stimulating Hormone 0.63 uIU/mL (0.360-3.740)
[2022-05-11 19:24] LABS: Magnesium 2.3 mg/dL (1.8-2.4); Phosphorus 3.2 mg/dL (2.5-4.9)
[2022-05-11] MEDS ORDERED: HOME MED 1 EA UNK (Hydralazine Hcl [Hydralazine Hcl] 50 MG Tablet) PO SCH (21:00)
[2022-05-11] MEDS: DIFLUPREDNATE OPTH SCH (21:00)
[2022-05-11] MEDS ORDERED: APIXABAN 2.5 MG TABLET PO SCH (21:00)
[2022-05-11] MEDS: INSULIN -REGULAR HUMAN 50 UNIT/0.5 ML ML SQ SCH (21:00)
[2022-05-11] MEDS: DOXAZOSIN 4 MG TAB PO SCH (21:00)
[2022-05-11] MEDS ORDERED: DIFLUPREDNATE OPHTHALMIC 5 ML BOT EACH EYE SCH (21:00)
[2022-05-11] MEDS: HYDRALAZINE HCL 25 MG TABLET PO SCH (21:09)
[2022-05-11] MEDS: LANTHANUM 1000 MG PO SCH (21:12)
[2022-05-11] MEDS: clonazePAM 1 MG TAB PO SCH (21:13)
[2022-05-11] MEDS: lisinopriL 20 MG TAB PO SCH (21:14)
[2022-05-11] MEDS ORDERED: DOXAZOSIN 2 MG TAB ONE (21:14)
[2022-05-11] MEDS: MORPHINE 2 MG/ML SYR IV PRN (22:13)
[2022-05-11] MEDS ORDERED: MORPHINE 2 MG/ML SYR ONE (22:18)
[2022-05-12 00:42] VITALS: BMI 29.8
[2022-05-12 04:46] LABS: Absolute Lymphocytes (CBC) 1.4 K/uL (0.7-4.9); Hematocrit 28.8 % (39.6-49.0); Lymphocytes % 29.6 % (15.3-44.8); MCV 87.8 fL (80-100); MPV 7.6 fL (7.6-11.3); RBC Red Blood Cell Count 3.29 M/uL (4.33-5.43)
[2022-05-12] MEDS: MORPHINE 2 MG/ML SYR IV PRN ×3 (04:46→16:00)
[2022-05-12 05:38] LABS: Potassium 4.1 mmol/L (3.5-5.1)
[2022-05-12] MEDS: INSULIN -REGULAR HUMAN 50 UNIT/0.5 ML ML SQ SCH ×3 (07:30→16:23)
[2022-05-12 08:17] VITALS: O2SAT 97
[2022-05-12] MEDS: LANTHANUM 1000 MG PO SCH ×3 (08:30→16:58)
[2022-05-12] MEDS ORDERED: PANTOPRAZOLE 40MG TABLET PO SCH (09:00)
[2022-05-12] MEDS ORDERED: VITAMIN D 1000 UNIT TAB PO SCH (09:00)
[2022-05-12] MEDS ORDERED: ASPIRIN 81 MG CHEWABLE TABLET PO SCH (09:00)
[2022-05-12] MEDS: DIFLUPREDNATE OPTH SCH (09:00)
[2022-05-12] MEDS ORDERED: APIXABAN 2.5 MG TABLET PO SCH (09:00)
[2022-05-12] MEDS ORDERED: HOME MED 1 EA UNK (Omeprazole [Prilosec] 40 MG Capsule.Dr) PO SCH (09:00)
[2022-05-12] MEDS: HYDRALAZINE HCL 25 MG TABLET PO SCH ×3 (09:00→12:47)
[2022-05-12] MEDS: DOXAZOSIN 4 MG TAB PO SCH (09:00)
[2022-05-12] MEDS: clonazePAM 1 MG TAB PO SCH (09:15)
[2022-05-12] MEDS: lisinopriL 20 MG TAB PO SCH (09:15)
[2022-05-12] MEDS ORDERED: DOXAZOSIN 2 MG TAB ONE (09:20)
--- NOTE | 2022-05-12 13:54 | EKG ---
Test Date: 2022-05-11 Test Time: 15:05:15 Certified Veterinary Technician: REHANA MEASUREMENT RESULTS: Intervals: Rate: 81 IL: 186 QRSD: 70 QT: 384 QTc: 446 [place]: P: 48 IL: 186 QRS: 32 T: 74 INTERPRETIVE STATEMENTS: Normal sinus rhythm Normal ECG Compared to ECG 05/06/2022 16:21:57 T-wave abnormality no longer present Possible ischemia no longer present Electronically Signed On 05-12-22 13:51:09 CDT by Tacos Pendleton
--- NOTE | 2022-05-12 13:54 | EKG ---
Test Date: 2022-05-11 Test Time: 11:14:29 Wood Products Manufacturer: REHANA MEASUREMENT RESULTS: Intervals: Rate: 114 MS: QRSD: 84 QT: 322 QTc: 443 [place]: P: MS: QRS: 43 T: 95 INTERPRETIVE STATEMENTS: Atrial fibrillation with rapid ventricular response Nonspecific ST abnormality Abnormal ECG Compared to ECG 05/06/2022 16:21:57 ST (T wave) deviation now present Sinus rhythm no longer present T-wave abnormality no longer present Possible ischemia no longer present Electronically Signed On 05-12-22 13:51:25 CDT by Tacos Pendleton
--- NOTE | 2022-05-12 15:01 | P.CNS ---
Date of Consult: 05/12/22 Reason for Consult: ESRD, syncope Requesting Physician: Nathanael Jewell Chief Complaint: A. fib with RVR History of Present Illness: Pt is a 51 yo male with ESRD dialyzing at the [facility] on a MWF basis with last HD episode being yesterday. He reports completing HD but post HD during vitals assessment was found to be tachycardic with HR > 120 and irregular. Pt was found to have Afib with RVR. Pt felt dizzy and lightheaded during the episode. Separately pt reports several admissions/visits to the ER in the recent past in the setting of syncopal episodes with witnessed LOC. Pt reports some of these episodes have occurred post HD. Pt reports BP typically runs high and he is on several BP agents, of which he denies any recent change or addition other than Metoprolol being stopped in light of bradycardic episode s, pauses. Pt denies any CP, CAD or hx of CHF. Pt reports some chronic lightheadedness with standing. Allergies lorazepam [From Ativan] Allergy (Verified 04/14/22 00:33) Hives/Rash Home Medications: Amitriptyline HCl 50 mg PO BEDTIME PRN PRN 04/14/22 Apixaban [Eliquis *] 2.5 mg PO BID 04/14/22 Difluprednate [Durezol] 1 drop EACH EYE BID 04/14/22 Doxazosin [Cardura*] 4 mg PO BID 04/14/22 Hydralazine HCl 50 mg PO TID 04/14/22 Lisinopril [Zestril] 20 mg PO BID 04/14/22 Omeprazole [Prilosec] 40 mg PO DAILY 04/14/22 clonazePAM [Clonazepam] 1 mg PO BID 04/14/22 Cholecalciferol (Vitamin D3) [Vitamin D 1000 Iu Tab*] 1,000 unit PO DAILY #30 tab 04/18/22 Butalb/Acetaminophen/Caffeine [Bnbolu-Nkdinghb-Jppd 50-325-40] 1 each PO Q8H PRN 05/11/22 Cholecalciferol (Vitamin D3) [Vitamin D3] 1 tab PO DAILY 05/11/22 Metoprolol Tartrate 1 tab PO BID 05/11/22 - Past Medical/Surgical History Diabetic: Yes -: HTN -: rheumatoid arthritis -: ESRD on HD -: kidney cancer -: Type 2 diabetes -: total knee replacement -: L little toe amputation -: BKA R -: upper neck fusion with broken screws -: wrist surgery -: R nephrectomy -: left hand surgery Psychosocial/ Personal History: Patient is . He has a brother and a son. - Family History Mother Medical History: Other (see notes) Notes: no known medical history - Social History Smoking Status: Current every day smoker Alcohol use: No CD- Drugs: Yes Caffeine use: No Place of Residence: Home Review of Systems General: Weakness Eyes: Unremarkable ENT: Unremarkable Respiratory: Unremarkable Cardiovascular: Palpitations Gastrointestinal: Unremarkable Genitourinary: Unremarkable Musculoskeletal: Unremarkable Integumentary: Unremarkable Neurological: Unremarkable Lymphatics: Unremarkable Physical Examination Temp Pulse Resp BP Pulse Ox 96.9 F 84 20 187/89 H 98 05/12/22 12:00 05/12/22 12:00 05/12/22 12:00 05/12/22 12:00 05/12/22 12:00 General: Alert, In no apparent distress, Oriented x3 HEENT: Atraumatic, Normocephalic, EOMI Neck: Supple Respiratory: Clear to auscultation bilaterally, Normal air movement Cardiovascular: No edema (Rt BKA), Regular rate/rhythm, Normal S1 S2 Gastrointestinal: Soft and benign, Non-distended Musculoskeletal: No clubbing, No swelling Integumentary: No rashes, No breakdown Neurological: Normal speech, Normal affect Laboratory Data (last 24 hrs) 05/11/22 11:45: Phosphorus 3.2, Magnesium 2.3 Conclusions/Impression: 1. ESRD 2. Atrial fibrillation unspecified 3. Recurrent syncope 4. Chronic hypertension, hypertensive CKD/ESRD 5. Bradycardia unspecified (at other times) 6. Anemia 2nd to CKD, other -Pt did complete HD session yesterday, metab profile on admission acceptable, lytes ok and should not have been contributory to the episode. -Will call pt's OP dialysis unit to obtain additional info on EDW and pt's BP trend at the clinic. 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 -Medications could also be contributing to pt's r ecurrent syncope and/or symptoms or relatively contraindicated with recent events. These include the alpha ky, Doxazosin and the TCA/Amitryptyline. Will d/c both -Place holding parameters to hold other BP meds if SBP < 110 mmHg. Thank you for this referral, Myles Faria MD, [facility]
--- NOTE | 2022-05-12 16:35 | P.DS ---
Admission Date: 05/11/22 Discharge Date: 05/12/22 Disposition: TRANSFER TO [facility] Discharge Condition: GOOD Reason for Admission: A. fib with RVR Consultations: 1. Cardiology 2. Nephrology Hospital Course: DIAGNOSES - Sick Sinus Syndrome - Atrial Fibrillation with Rapid Ventricuar Response - Type II Diabetes Mellitus - End-Stage Renal Disease on MWF iHD - Recurrent Syncope - Cannibis Use Disorder - Hypertension - Anxiety/Depression - Anemic of Chronic Kidney Disease - Gastroesophageal Reflux - S/P Right Pzdgf-mew-Qmrb Amputation HOSPITAL COURSE: Mr. Vladimir Maguire is a pleasant 51-year-old male with a past medical history significant for end-stage renal disease on MWF iHD, type II diabetes mellitus, hypertension, and cannabis use disorder who was admitted to the [facility] on 05/11/2022 for atrial fibrillation with rapid ventricular response. It appears that he has had multiple episodes of syncope in the recent past. Cardiology was consulted and Dr. Richmond mentioned that he had a 9-second pause in his telemetry during one of these episodes. He recommended that he be transferred to the [facility] for placement of a permanent pacemaker. With his assistance, he was accepted to [facility] for further evaluation and treatment. He was seen on rounds and deemed medical stable for transfer. He is currently in normal sinus rhythm and hemodynamically stable. I discussed transfer with him and his family, and all were in agreement. All questions were answered to the best of my ability. Vital Signs/Physical Exam: Temp Pulse Resp BP Pulse Ox 96.9 F 84 15 187/89 H 98 05/12/22 12:00 05/12/22 12:00 05/12/22 16:00 05/12/22 12:00 05/12/22 16:00 General: Alert, In no apparent distress, Oriented x3 HEENT: Atraumatic, Mucous membr. moist/pink Neck: Supple, Without JVD or thyroid abnormality Respiratory: Clear to auscultation bilaterally, Normal air movement Cardiovascular: Regular rate/rhythm, No gallops, No rubs, No murmurs Gastrointestinal: Normal bowel sounds, Soft and benign, No tenderness, No rebound, No guarding Musculoskeletal: No clubbing, Other (s/p right BKA) Integumentary: No rashes Neurological: Normal speech, Normal affect Urinary: Dialysis catheter Laboratory Data at Discharge: WBC 4.8 K/uL (4.3-10.9) 05/12/22 04:32 Hgb 9.4 g/dL (13.6-17.9) L 05/12/22 04:32 Hct 28.8 % (39.6-49.0) L 05/12/22 04:32 Plt Count 147 K/uL (152-406) L 05/12/22 04:32 Sodium 138 mmol/L (136-145) 05/12/22 04:32 Potassium 4.1 mmol/L (3.5-5.1) 05/12/22 04:32 BUN 41 mg/dL (7-18) H 05/12/22 04:32 Creatinine 8.77 mg/dL (0.55-1.3) H* D 05/12/22 04:32 Glucose 87 mg/dL (74-106) 05/12/22 04:32 Phosphorus 3.2 mg/dL (2.5-4.9) 05/11/22 11:45 Magnesium 2.3 mg/dL (1.8-2.4) 05/11/22 11:45 Home Medications: Amitriptyline HCl 50 mg PO BEDTIME PRN PRN 04/14/22 Apixaban [Eliquis *] 2.5 mg PO BID 04/14/22 Difluprednate [Durezol] 1 drop EACH EYE BID 04/14/22 Doxazosin [Cardura*] 4 mg PO BID 04/14/22 Hydralazine HCl 50 mg PO TID PRN 04/14/22 Lisinopril [Zestril] 20 mg PO BID 04/14/22 Omeprazole [Prilosec] 40 mg PO DAILY 04/14/22 clonazePAM [Clonazepam] 1 mg PO BID 04/14/22 Cholecalciferol (Vitamin D3) [Vitamin D 1000 Iu Tab*] 1,000 unit PO DAILY #30 tab 04/18/22 Butalb/Acetaminophen/Caffeine [Yabqbf-Nirggzcp-Xkfe 50-325-40] 1 each PO Q8H PRN 05/11/22 Cholecalciferol (Vitamin D3) [Vitamin D3] 1 tab PO DAILY 05/11/22 Sevelamer Carbonate [Renvela] 1,600 mg PO TIDWM 05/12/22 Followup: NONE,NONE [Primary Care Provider] - Giuseppe Richmond MD [ACTIVE - CAN ADMIT] -
[2022-05-12] MEDS ORDERED: HYDRALAZINE HCL 20 MG/ML VIAL IV ONE (17:00)
[2022-05-12] MEDS ORDERED: SEVELAMER CARBONATE 800 MG TABLET PO SCH (17:00)
[2022-05-12 18:00] VITALS: TEMP 97.1
[2022-05-12 18:12] VITALS: BP 161/73
--- NOTE | 2022-05-17 12:43 | CON ---
Date of Consultation: 05/12/2022 Reason For Consultation: New onset atrial fibrillation. History Of Present Illness: Mr. Maguire is a 51-year-old male. He is a dialysis patient. Has a h istory of diabetes, hypertension, neuropathy, rheumatoid arthritis. He is status post right BKA. Escudero s had dialysis prior to the left arm. He had come into the hospital with syncope twice. The first t yael he was having 9-second pauses, on metoprolol 100 b.i.d. We stopped the metoprolol. He continued to have syncope. He was supposed to come to my office to get an event monitor to see if he is havin g any pauses; however, at this time, he comes in with atrial fibrillation to the hospital with conges tive heart failure symptoms. He was given 1 dose of IV metoprolol and he started having 3-4 second p auses with presyncope. He denies any nausea, vomiting, diaphoresis, PND, orthopnea. Has had some pe tamara edema. Denied any fever or chills. By the time I saw him, he was in sinus rhythm. Past Medical History: As stated above. Review of Systems: Negative. Social History: Negative. Family History: Noncontributory. Medications: Presently include aspirin, doxazosin, hydralazine, lisinopril, and clonazepam as well a s Protonix. He also takes Eliquis at home as well as hydralazine. Physical Examination: Vital Signs: Stable, afebrile. HEENT: Negative. Neck: Supple with no bruit. Chest: Clear to auscultation and percussion. Cardiac: Revealed a regular rhythm and rate with S4 gallops. No murmurs or rubs. Abdomen: Benign. Extremities: Revealed no clubbing, cyanosis, or edema. Laboratory Data: His creatinine was 6.38. Hemoglobin was 10.6. His BNP was 28,689. His TSH was 0. 630. Chest x-ray shows chronic elevation of the left diaphragm. His first EKG showed atrial fibrill ation with rapid ventricular response. Recent echocardiogram showed an ejection fraction 53% with mi ld mitral valve stenosis, but normal wall motion. Impression And Plan: Mr. Maguire has sick sinus syndrome and without beta-ky, he goes into at rial fibrillation. With beta-ky, he goes into sinus pauses. He has had 9-second pauses with sy ncope. Mr. Maguire obviously needs a pacemaker because of sick sinus syndrome. I will discuss the case further with Dr. Jewell and we will send him to [facility] to the electrophysiol ogist, Dr. Tavo Yusuf for a pacemaker today. Other problems including dialysis and hypertension as we ll as diabetes, renal disease all of those are stable at this point. We will follow Mr. Maguire af ter he comes back from [place] in the office for his pacemaker followup. CAROLYN/PJ Voice ID: [id number] Report ID: [id number]
--- OUTSIDE RECORDS SUMMARY | 2022-05-25 15:32 | XMS REPORT | Continuity of Care Document ---
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 reduction [facility] ermann and internal fixation of fracture Tonsillectomy [facility] Plan of Care Planned Activity Planned Date Details Comments Source Future Scheduled Test 2018 00:00:00 Screening for [facility] malignant neoplasm of colon (procedure) [code = 020921187] Future Scheduled Test 2018 00:00:00 Screening for [facility] malignant neoplasm of colon (procedure) [code = 970391002] Future Scheduled Test 1980 00:00:00 COVID-19 Vaccine (1) [facility] [code = COVID-19 Vaccine (1)] Future Scheduled Test 1980 00:00:00 COVID-19 Vaccine (1) [facility] [code = COVID-19 Vaccine (1)] Encounters Start End Encounter Admission Attending Care Care Encounter Source Date/Time Date/Time Type Type Clinicians Facility Department ID 2022-05-23 Outpatient [facility] [id number] [place] 15:06:41 [facility] 2022-02-27 Outpatient [facility] [id number] [place] 13:36:34 [id number] [facility] 2022-02-24 Outpatient [facility] [id number] [place] 09:21:19 [id number] [facility] 2022-02-22 Outpatient [facility] [id number] [place] 06:54:13 [id number] [facility] 2022-02-13 Outpatient [facility] [id number] [place] 17:29:23 [id number] [facility] 2021-09-14 Inpatient THALIA Braun, HCAMN MMRI [id number] [facility] 10:00:00 Nirav [id number] [facility] 2021-09-13 Inpatient THALIA Braun, HCAMN MMRI [id number] [facility] 10:00:00 Nirav [id number] [facility] 2021-04-02 Inpatient Saroj Coates [facility] DAYS [id number] [facility] 09:15:00 [id number] [facility] 2020-11-30 Inpatient Frankel, HCACL DAYS [id number] [facility] 14:00:00 Dhruvil [id number] [facility] 2020-11-27 Inpatient Frankel, [facility]AC[facility] DAYS [id number] [facility] 08:30:00 Dhruvil [id number] [facility] 2020-11-26 Inpatient EL Frankel, HCAMN MRAD [id number] [facility] 14:29:00 Dhruvil [id number] [facility] 2020-11-13 Inpatient EM EDDOC, HCAMN MRAD [id number] [facility] 13:08:00 GENERIC [id number] [facility] 2020-10-24 Inpatient HCACL SARA [id number] [facility] 21:12:00 [id number] [facility] 2020-10-24 Inpatient HCAMN KAITLYNN [id number] [facility] 17:30:00 [id number] [facility] 2020-10-16 Inpatient THALIA Frankel, HCACL DAYS [id number] [facility] 08:00:00 Beth [id number] [facility] 2020-10-03 Inpatient HCAMN KAITLYNN [id number] [facility] 12:12:00 [id number] [facility] 2020-08-15 Inpatient HCAMN KAITLYNN [id number] [facility] 07:53:00 [facility] 2020-02-20 Inpatient Saroj Coates [facility] DAYS [id number] [facility] 08:15:00 [id number] [facility] 2022-06-13 2022-06-13 [facility] [id number] Univers 10:00:00 10:00:00 JEROD [id number] efrain o [facility] 2022-06-13 2022-06-13 [address] [facility] [id number] Univers 10:00:00 10:00:00 JEROD zuniga [facility] 2022-05-12 2022-05-14 Inpatient NKECHI, [facility] 060 [id number] [place] 00:00:00 00:00:00 ALEX Alejandro [facility] 2022-05-06 2022-05-06 Nurse JEMAL Buckley [id number] [id number] [facility] 00:00:00 00:00:00 Triage Joanna MOODY 350.1.13.10 i [facility] 4.2.7.2.686 Gwyn as [id number] [address] 2022-05-06 2022-05-06 [facility] 1.2.050.485 [id number] Univers 00:00:00 00:00:00 Jerod RENEE 350.1.13.10 ity [facility] 4.2.7.2.686 [place] [id number] Nj dical NAL 059 [facility] 2022-04-14 2022-04-14 Outpatient R JERE, [facility] [id number] Univers 13:20:00 13:20:00 JEROD [id number] ity o [facility] 2022-04-14 2022-04-14 Outpatient R JERE, [facility] [id number] Univers 13:20:00 13:20:00 JEROD zuniga o [facility] 2022-03-23 2022-03-23 Emergency X [facility] ERT [id number] Univers 16:51:00 18:37:00 CHIVO ity of [facility] 2022-03-23 2022-03-23 Emergency [facility] [id number] [id number] Univers 16:51:00 18:37:00 Chivo RENEE 350.1.13.10 i ty [facility] 4.2.7.2.686 [facility] [id number] [facility] 084 [place] 2022-02-15 2022-02-15 Outpatient R JERE, [facility] [id number] Univers 11:00:00 11:00:00 JEROD zuniga o [facility] 2022-02-10 2022-02-10 Telephone [facility] [id number] [id number] Univers 00:00:00 00:00:00 Jerod PREMAHAYLEY 350.1.13.10 ity [facility] 4.2.7.2.686 [facility] [id number] Nj dical NAL 059 [facility] 2022-02-08 2022-02-08 Outpatient R JERE, [facility] [id number] Univers 12:47:16 23:59:00 JEROD zuniga o [facility] 2022-01-26 2022-01-26 Telephone [facility] 1.2.840.114 [id number] Univers 00:00:00 00:00:00 Cole Downey MULTISPEC 350.1.13.10 ity [facility] 4.2.7.2.686 [facility] [id number] [facility] AND [address] [facility] 2022-01-06 2022-01-07 Emergency X ZIA ORRICKY ERT [id number] Univers 23:32:00 05:14:00 TOMAS zuniga [facility] 2021-08-05 2021-08-05 Outpatient ZURI MartinezCL DAYS [id number] [facility] 07:27:00 07:27:00 Dhruvil 64 [facility] 2021-08-05 2021-08-05 Outpatient ZURI MartinezCL DAYS [id number] [facility] 07:27:00 07:27:00 Dhruvil [id number] [facility] 2021-08-04 2021-08-04 Outpatient ZURI FrankelCL DAYS [id number] [facility] 13:30:00 13:30:00 Dhruvil [id number] [facility] 2021-07-09 2021-07-10 Emergency EM Jeremie, ZURIMN KAITLYNN [id number] [facility] 21:31:00 01:20:[id number] [facility] 2021-04-30 2021-04-30 [facility] [id number] [facility] 08:50:00 08:50:00 [id number] [facility] are [facility] 2021-04-30 2021-04-30 Outpatient Saroj Carmona [facility] DAYS [id number] [facility] 02:24:00 02:24:00 [id number] [facility] 2021-04-29 2021-04-29 Telephone Ajay [facility] 1.2.840.114 [id number] 00:00:00 00:00:00 Cole Downey MULTISPEC 350.1.13.10 IALTY 4.2.7.2.686 CENTER [id number] [facility] 2021-02-08 2021-02-08 Outpatient [facility] [id number] [facility] 16:30:00 16:30:00 Dhruvil [id number] [facility] 2021-01-30 2021-01-31 Emergency Yuko Gottlieb S TRAUMA 1.2.84 0.114 [id number] 19:24:00 00:56:00 Mohamud Mann BRISTOL 350.1.13.10 4.2.7.2.686 [id number] 2021-01-23 2021-01-23 Outpatient GCCOVIDV GCCOVIDV [id number] GCCOVID 00:00:00 00:00:00 V 2021-01-02 2021-01-02 Outpatient GCCOVIDV GCCOVIDV [id number] GCCOVID 00:00:00 00:00:00 V 2020-12-02 2020-12-02 Telephone [facility] 1.2.840.114 [id number] 00:00:00 00:00:00 Galvan A MULTISPEC 350.1.13.10 IALTY 4.2.7.2.686 CENTER [id number] AND KEVIN [facility] 2020-11-24 2020-11-24 [facility] 1.2.840.114 [id number] 00:00:00 00:00:00 Management Galvan A MULTISPEC 350.1.13.10 IALTY 4.2.7.2.686 CENTER [id number] AND KEVIN [facility] 2020-10-20 2020-10-20 Outpatient GONZALEZ Frankel DAYS [id number] [facility] 10:15:00 10:15:00 Dhrusima [id number] [facility] 2020-09-29 2020-09-29 Outpatient Marlys, HCAMN MCTS [id number] [facility] 10:00:00 10:00:[id number] [facility] 2020-09-17 2020-09-17 Outpatient Fatoumata, HCAMN MCCL [id number] [facility] 09:00:00 09:00:[id number] [facility] 2020-08-15 2020-08-15 Outpatient Balbir, HCACL LABO [id number] [facility] 14:17:00 14:17:00 Haydee [id number] [facility] 2020-02-20 2020-02-20 Outpatient Saroj Coates HCANW REF [id number] [facility] 08:16:00 08:16:00 [id number] [facility] 2018-07-12 2018-07-12 Outpatient [facility] 4655 [id number] [facility] 15:45:00 21:00:00 toney Rivas 00 l [facility] Results Test Description Test Time Test Comments Results Result Comments Source HEPATITIS C ANTIBODY 2022-04-15 20:36:01 Test Item Value Reference Range Interpretation Comme nts HEPATITIS C ANTIBODY (BEAKER) (test code = 367) Reactive Nonrea ctive Geodetic Technician ID - BSHEPATITIS B CORE ANTIBODY, [id number] 20:35:17 Test Item Value Reference Range Interpretation Comments HEPATITIS B CORE TOTAL ANTIBODY Nonreactive Nonreactive (BEAKER) (test code = 497) Editor & Co Founder ID - BSHEPATITIS B SURFACE [id number] 20:35:12 Test Item Value Reference Range Interpretation Comments HEPATITIS B SURFACE ANTIGEN (2) Nonreactive Nonreactive (BEAKER) (test code = 2585) Specimen is considered negative for HBsAg.HEPATITIS B SURFACE [id number] 20:35:12 Test Item Value Reference Range Interpretation Comments HEPATITIS B SURFACE ANTIBODY 37.5 mIU/mL <8.0 H (BEAKER) (test code = 647) Editor & Co Founder ID - BSHEPATITIS B SURFACE [id number] 23:25:59 Test Item Value Reference Range Interpretation Comments HEPATITIS B SURFACE ANTIBODY 33.0 mIU/mL <8.0 H (BEAKER) (test code = 647) Editor & Co Founder ID - ADMINHEPATITIS B SURFACE [id number] 23:25:57 Test Item Value Reference Range Interpretation Comments HEPATITIS B SURFACE ANTIGEN (2) Nonreactive Nonreactive (BEAKER) (test code = 2585) Specimen is considered negative for HBsAg.GLUCOSE [id number] 11:50:00 Test Item Value Reference Range Interpretation Comments GLUCOSE BEDSIDE (test 84 MG/DL 70-110 N Perfor med by certified code = GLUBED) 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 [facility] BASIC METABOLIC [id number] 09:20:00 Test Item Value Reference Range Interpretation [...] = 6.5 mg/dL 8.0-10.5 L CA) GLUCOSE [id number] 09:04:00 Test Item Value Reference Range Interpretation Comments GLUCOSE BEDSIDE (test 79 MG/DL 70-110 N Perfor med by certified code = GLUBED) 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 PROTHROMBIN [id number] 14:36:00 Test Item Value Reference Range Interpretation [...] o prevent recurre nt infarct). THROMBOPLASTIN TIME [id number] 14:36:00 Test Item Value Reference Range Interpretation Comments THROMBOPLASTIN TIME 33.9 Seconds 25.0-39.5 N Ther apeutic PARTIAL (test code = Range: 50.4 - 88.3 PTT) Seconds Effective 02/19/2019 BASIC METABOLIC [id number] 14:28:00 Test Item Value Reference Range Interpretation [...] 8.3 mg/dL 8.0-10.5 N CA) CBC W/AUTO [id number] 14:05:00 Test Item Value Reference Range Interpretation [...] NO = MDIFF) - XR CHEST 2 [id number] 00:00:00 [facility] 1970 Sex: M FAX: Nirav Cohen MD [place]: St: PRE FAX: Beth Correia MD [phone] FAX: Tamika Hadley Name: PRESLEYROSY [facility] : 1970 Age/S: 50/M [address] [place] [address] Unit #: [id number] Loc: [place] [address] Phys: Tamika Hadley TRAINMAN Acct: [id number] Dis Date: Status: PRE [facility] PHONE #: [phone] Exam Date: FAX #: [phone] Reason: PREOP EXAMS: CPT CODE: [id number] XR CHEST 2 V 87865 PROCEDURE INFORMATION: Exam: XR Chest Exam date [...] at 1453 Reported and signed by: Mason oPp M.D. CC: Nirav Braun; Beth Frankel MD; Tamika Hadley NP Technologist: RT Supriya(Toney) Trnscrd Date/Time/By: 08/04/2021 (1791) : By: [email or web address] Orig Print D/T: S: 08/04/2021 (5356) PAGE 1 Signed Report- XR KNEE 3 V [id number] 23:20:00 [facility] : 1970 Sex: M FAX: Nirav Cohen MD [place]: St: REG FAX: Gisel Dwyer MD Name: PRESLEYROSY [facility] : 1970 Age/S: 50/M [address] [facility] [employer] Unit #: [id number] Loc: E.ERS[address] [place], [place]: [place] [address] Acct: [id number] Dis Date: Status: REG ER PHONE #: [phone] Exam Date: 07/09/2021 2315 FAX #: [phone] Reason: fall injury EXAMS: CPT CODE: [id number] XR KN[place] 3 [place] [address] Examination: Bilateral knees 3 views Location code: [...] RAO; Gisel Dwyer MD Technologist: Lisa Haines Trnmsrd Date/Time/By: 07/09/2021 (2320) : By: [email or web address] PAGE 1 Signed Report FAX: Nirav Cohen MD [place]: St: [facility] FAX: Gisel Dwyer MD Name: ROSY MAGUIRE [facility] : 1970 Age/S: 50/M [address] [facility] [employer] Unit #: [id number] Loc: E.ERS[address] [place], [place]: [place] [address] Acct: [id number] Dis Date: Status: REG ER PHONE #: [phone] Exam Date: 07/09/20212314 FAX #: [phone] Reason: fall injury EXAMS: CPT CODE: [id number] XR KN[place] [address] <Continued> Orig Print D/T: S: 07/09/2021 (9354) PAGE 2 Signed Report- XR FOREARM 2 VIEWS [id number] 23:18:00 [facility] : 1970 Sex: M FAX: Nirav Cohen MD [place]: St: REG FAX: Gisel Dwyer MD Name: ROSY MAGUIRE [facility] : 1970 Age/S: 50/M [address] [facility] Unit #: [id number] Loc: E.ERS[address] [place], [place]: [place] [address] Acct: [id number] Dis Date: Status: REG ER PHONE #: [phone] Exam Date: 07/09/20212314 FAX #: [phone] Reason: fall injury EXAMS: CPT CODE: [id number] XR [place] [address] [place] [address] Examination: Right hand 3 views, right forearm [...] Braun MD; Gisel Dwyer MD Technologist: Lisa [facility]ajames [facility] Date/Time/By: 07/09/2021 (7230) : By: [email or web address] PAGE 1 Signed Report FAX: Nirav Cohen MD [place]: St: REG FAX: Gisel Dwyer MD Name: ROSY MAGUIRE [facility] : 1970 Age/S: 50/M [address] [facility] Unit #: [id number] Loc: [address] [place]: [place] [address] Acct: [id number] Dis Date: Status: REG ER PHONE #: [phone] Exam Date: 07/09/2021 2315 FAX #: [phone] Reason: fall injury EXAMS: CPT CODE: [id number] XR [place] [address] [place] [address] <Continued> Orig Print D/T: S: 07/09/2021 (1469) PAGE 2 Signed Report- XR HUMERUS 2 + V [id number] 23:18:00 [facility] : 1970 Sex: M FAX: Nirav Cohen MD [place]: St: REG FAX: Gisel Dwyer MD Name: PRESLEYROSY [facility] : 1970 Age/S: 50/M [address] [facility] Unit #: [id number] Loc: [address] [place]: [place] [address] Acct: [id number] Dis Date: Status: REG ER PHONE #: [phone] Exam Date: 07/09/2021 2315 FAX #: [phone] Reason: fall injury EXAMS: CPT CODE: [id number] XR HUMERUS 2 + V RT [address] Examination: Right hand 3 views, right forearm [...] MD Technologist: Lisa Haines Trnscrd Date/Time/By: 07/09/2021 (3581) : By: [email or web address] PAGE 1 Signed Report FAX: Nirav Cohen MD [place]: St: REG FAX: Gisel Dwyer MD Name: PRESLEYROSY [facility] : 1970 Age/S: 50/M [address] [facility] Unit #: [id number] Loc: [address] [place]: [place] [address] Acct: [id number] Dis Date: Status: REG ER PHONE #: [phone] Exam Date: 07/09/20212314 FAX #: [phone] Reason: fall injury EXAMS: CPT CODE: [id number] XR HUMERUS 2 + V RT [address] <Continued> Orig Print D/T: S: 07/09/2021 (7576) PAGE 2 Signed Report- XR HAND 3 + V [id number] 23:18:00 [facility] PRES[facility] : 1970 Sex: M FAX: Nirav Cohen MD [place]: St: REG FAX: Gisel Dwyer MD Name: ROSY MAGUIRE [facility] : 1970 Age/S: 50/M [address] [facility] [employer] [facility] Unit #: [id number] Loc: [address] [place]: [place] [address] Acct: [id number] Dis Date: Status: REG ER PHONE #: [phone] Exam Date: 07/09/20212314 FAX #: [phone] Reason: fall injury EXAMS: CPT CODE: [id number] XR HAND 3 + V RT [address] Examination: Right hand 3 views, right forearm [...] MD Technologist: Lisa Haines Trnscrd Date/Time/By: 07/09/2021 (5828) : By: [email or web address] PAGE 1 Signed Report FAX: Nirav Cohen MD [place]: St: REG FAX: Gisel Dwyer MD Name: ROSY MAGUIRE [facility] : 1970 Age/S: 50/M [address] [facility] [employer] Unit #: [id number] Loc: [address] [place] [address] [place]: [place] [address] Acct: [id number] Dis Date: Status: REG ER PHONE #: [phone] Exam Date: 07/09/20212314 FAX #: [phone] Reason: fall injury EXAMS: CPT CODE: [id number] XR HAND 3 + V RT [address]88 <Continued> Orig Print D/T: S: 07/09/2021 (9512) PAGE 2 Signed ReportSURGICAL [id number] 17:11:00 Test Item Value Reference Range Interpretation Comments SURGICAL SPECIMENS (test code = SURG) RUN DATE: 05/03/21 [facility] - LAB PAGE 1 RUN TIME: 2101 Specimen Inquiry RUN USER: INTERFACE PATIENT: ROSY MAGUIRE LOC: [place] U #: [id number] AGE/SX: 50/M ROOM: RE04/30/21[facility] DR: Saroj Coates MD (GEN JUSTO : [birth year] BED: DIS: STATUS: [facility] TLOC: SPEC #: [id number] RECD: 04/30/21 STATUS: NEIL FLOWER #: [id number] BENEDICTO: 04/30/[address] [facility] [address]: Saroj Coates MD (GEN SURG) ENTERED: 04/30/21 SP TYPE: SURG OTHR DR: Nirav Braun MD ORDERED: 62537, PATH SPEC, H E STAIN HISTOLOGY: TISSUE ID BLK PCS GHADA LEV / PROCEDURE DISPOSITION ____ ___ ___ ___ ___ PILONIDAL CYST A 1 1 TISSUES: A. PILONIDAL CYST - Pilonidal Cyst CLINICAL HISTORY Pilonidal cyst/abscess. FINAL DIAGNOSIS PILONIDAL CYST, EXCISION: - SKIN WITH SINUS TRACT LINED BY INFLAMED GRANULATION TISSUE, CONSISTENT WITH PILONIDAL CYST CPT 60763 GROSS DESCRIPTION Received in formalin labeled with the patient's name and "pilonidal cyst/abscess" are two irregularly-shaped fragments of skin and underlying soft tissue, upon reapproximation measuring 4.0 x 3.5 x 3.0 cm. The skin (3.0 x 1.0 cm) is grossly unremarkable sandoval-coker. The cut surface shows an abscess cavity, 1.2 cm in diameter. Senior It Business Analyst sections are submitted in one cassette. CM/ph MICROSCOPIC DESCRIPTION PERFORMED -- Signed SIGNATURE ON FILE Mel Cleaning MD 05/03/21 1711 END OF REPORT BASIC METABOLIC [id number] 07:30:00 Test Item Value Reference Range Interpretation [...] BACK AND SHAYNA EDEN, on 04/30/21, @ 4996.Please not e: New Reference Range Dec 2020 CALCIUM (test code = 6.6 mg/dL 8.7-10.4 L Please note: New CA) Reference Range Dec 2020 COVID Asymptomatic IH [id number] 13:16:00 Test Item Value Reference Interpretation Comments [...] performancechar acteristics were determined by [facility]. Thi s test has notbeen FDA [...] setting? Unknown? NoAge at collection: YBASIC METABOLIC [id number] 12:02:00 Test Item Value Reference Range Interpretation [...] CA) Reference Range Dec 2020 BASIC METABOLIC [id number] 11:50:00 Test Item Value Reference Range Interpretation [...] CA) Reference Range Dec 2020 CBC W/AUTO [id number] 11:25:00 Test Item Value Reference Range Interpretation [...] = BA#) 0.05 x10 3/uL 0.0-0.20 N [id number] 14:50:00 Test Item Value Reference Range Interpretation Comments GLUBED (test code = GLUBED) 109 MG/DL 70-105 H [id number] 08:36:00 Test Item Value Reference Range Interpretation Comments POTASSIUM (test code = K) 4.9 mmol/L 3.5-5.1 N COVID Asymptomatic IH [id number] 10:58:00 Test Item Value Reference Interpretation Comments [...] performancechar acteristics were determined by [facility]. Thi s test has notbeen FDA [...] setting? Unknown? NoAge at collection: YBASIC METABOLIC [id number] 12:16:00 Test Item Value Reference Range Interpretation [...] code = mg/dL 8.7-10.4 CA) BASIC METABOLIC [id number] 12:16:00 Test Item Value Reference Range Interpretation [...] CA) Reference Range Dec 2020 CBC W/AUTO [id number] 11:54:00 Test Item Value Reference Range Interpretation [...] 0.0-0.20 N - CT ABD PELVIS W/O [id number] 16:57:00 [facility] CHRISTINE MIAMIName: ROSY MAGUIRE : 1970 Sex: M Name: ROSY MAGUIRE [facility] [place] : 1969 Age/S: 50 / M [address] [facility] [address] [facility] Unit #: [id number] [place]: [place] [address] Phys: Beth Frankel MD Acct: [id number] Dis Date: Status: REG CLI PHONE #: [phone] Exam Date: 02/08/2021 1617 FAX #: [phone] Reason: T85.691A, MALFUNCTION OF PD CATHETER. EXAMS: CPT CODE: [id number] CT ABD PELVIS W/O CONT 48729 CT abdomen and pelvis without contrast dated [...] 1 Signed Report (CONTINUED) Name: ROSY MAGUIRE [facility] [place] : 1970 Age/S: 50 / M [address] [place] [address] Blvd Unit #: [id number] Loc: [place] [address] Phys: Beth Frankel MD Acct: [id number] Dis Date: Status: REG CLI PHONE #: [phone] Exam Date: 02/08/2021 1617 FAX #: [phone] Reason: T85.691A, MALFUNCTION OF PD CATHETER. EXAMS: CPT CODE: [id number] CT ABD PELVIS W/O CONT 31867 <Continued> retroperitoneal mass or adenopathy. PELVIS: Bladder [...] M.D. 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 [facility] BASIC METABOLIC [id number] 13:08:00 Test Item Value Reference Range Interpretation [...] code = 8.4 mg/dL 8.0-10.5 N CA) [id number] 13:01:00 Test Item Value Reference Range Interpretation Comments GLUBED (test code = 66 MG/DL 70-110 L Performe d by certified GLUBED) 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 BASIC METABOLIC [id number] 12:58:00 Test Item Value Reference Range Interpretation [...] = 9.2 mg/dL 8.0-10.5 N CA) PROTHROMBIN [id number] 12:47:00 Test Item Value Reference Range Interpretation [...] o prevent recurre nt infarct). THROMBOPLASTIN TIME [id number] 12:47:00 Test Item Value Reference Range Interpretation Comments THROMBOPLASTIN TIME 36.5 Seconds 25.0-39.5 N Ther apeutic PARTIAL (test code = Range: 50.4 - 88.3 PTT) Seconds Effective 02/19/2019 CBC W/AUTO [id number] 12:35:00 Test Item Value Reference Range Interpretation [...] code NO = MDIFF) - XR ABDOMEN [id number] 15:08:00 [facility] : 1970 Sex: M FAX: Nirav Cohen MD [place]: St: PRE FAX: Kelly Correia MD [phone] Name: ROSY MAGUIRE [facility] : 1970 Age/S: 50/M [address] [facility] Unit #: [id number] Loc: [place], [place]: [place] [address] Acct: [id number] Dis Date: Status: PRE CLI PHONE #: [phone] Exam Date: 11/26/2020 1456 FAX #: [phone] Reason: PERITONEAL DILAYSIS CATHETER DYSFUNCTION EXAMS: CPT CODE: [id number] XR ABDOMEN 2V 33990 Location code: H5 Abdomen Two Views Indication: [...] 1 Signed Report (CONTINUED) FAX:Nirav Cohen MD [place]: St: PRE FAX: Beth Correia MD Name: ROSY MAGUIRE [facility] : 1970 Age/S: 50/M [address] [facility] Unit #: [id number] Loc: [place], [place]: [place] [address] Acct: [id number] Dis Date: Status: PRE CLI PHONE #: [phone] Exam Date: 11/26/2020 1456 FAX #: [phone] Reason: PERITONEAL DILAYSIS CATHETER DYSFUNCTION EXAMS: CPT CODE: [id number] XR ABDOMEN 2V 09259 <Continued> CC: Nirav Braun MD; Beth Frankel MD Technologist: SOHAIL BERNARD Trnscrd Date/Time/By: 11/26/2020 (2206) : By: [email or web address] PAGE 2 Signed Report FAX: Nirav Cohen MD [place]: St: PRE FAX: Beth Correia MD [phone] - Name: ROSY MAGUIRE [facility] : 1970 Age/S: 50/M [address] [employer] Unit #: [id number] Loc: [employer], [place] [address] Acct: [id number] Dis Date: Status: PRE CLI PHONE #: [phone] Exam Date: 11/26/2020 [facility] FAX #: [phone] Reason: PERITONEAL DILAYSIS CATHETER DYSFUNCTION EXAMS: CPT CODE: [id number] ABDOMEN 2V 82381 <Continued> Orig Print D/T: S: 0 11/26/2020 (0441) PAGE 3 Signed Report- XR ABDOMEN 1 [id number] 14:29:00 [facility] : 1970 Sex: M FAX: Nirav Cohen MD [place]: CORY St: REG Name: ROSY MAGUIRE [facility] : 1970 Age/S: 50/M [address] [facility] [employer] Unit #: [id number] Loc: [place], [place] Phys: EDDOC, GENERIC FOR EDM [address]271 Acct: [id number] Dis Date: Status: REG CLI PHONE #: [phone] Exam Date: 11/13/2020 1352 FAX #: [phone] Reason: PD CATH MALFUNCTION EXAMS: CPT CODE: [id number] XR ABDOMEN 1 V 93214 EXAM: ABDOMEN ONE VIEW INDICATION: PDCATH MALFUNCTION [...] MD Technologist: ANA BARRETO Trnscrd Date/Time/By: 11/13/2020 (0270) : By: [email or web address] PAGE 1 Signed Report FAX: Nirav Cohen MD [place]: St: REG-- Name: ROSY MAGUIRE [facility] : 1970 Age/S: 50/M [address] [facility] Unit #: [id number] Loc: Zeke[place]ANK[place], [place] Phys: EDDOC, GENERIC FOR ED [address]114 Acct: [id number] Dis Date: Status: REG CLI PHONE #: [phone] Exam Date: 11/13/2020 1352 FAX #: [phone] Reason: PD CATH MALFUNCTION EXAMS: CPT CODE: [id number] XR ABDOMEN 1 V 86599 <Continued> Orig Print D/T: S: 11/13/2020 (8612) PAGE 2 Signed [id number] 08:30:00 Test Item Value Reference Range Interpretation [...] may amelia y by method. BASIC METABOLIC [id number] 17:02:00 Test Item Value Reference Range Interpretation [...] code = 8.5 mg/dL 8.0-10.5 N CA) [id number] 17:02:00 Test Item Value Reference Range Interpretation [...] y by method. - XR CHEST 1 [id number] 16:17:00 [facility] 1970 Sex: M FAX: Tray Donald [phone] [place]: St: ADM FAX: Nirav Zamudio am, MD Name: ROSY MAGUIRE [facility] : 1970 Age/S: 50/M [address] [place] [address] Unit #: [id number] Loc: G[address] [place] [address] Phys: DOES_NOT KNOW Acct: [id number] Dis Date: Status: ADM IN PHONE #: [phone] Exam Date: 10/26/2020 1616 FAX #: [phone] Reason: PAIN EXAMS: CPT CODE: [id number] XR CHEST 1 V 53131WQ CHEST 1 VIEW HISTORY: PAIN. COMPARISON: CXR [...] Technologist: Pamela Blake RT(R) Trnscrd Date/Time/By: 10/26/2020 (5097) : By: [email or web address] Orig Print D/T: S: 10/26/2020 (1832) PAGE 1 Signed Report- US ABDOMEN [id number] 14:11:00 [facility] 1970 Sex: M Name: ROSY MAGUIRE [facility] : 1969 Age/S: 50 / M [address] [place] [address] Unit #: [id number] Loc: [place] [address] Phys: Harpal Zamarripa MD Acct: [id number] Dis Date: Status: ADM IN PHONE #: [phone] Exam Date: 10/26/2020 1157 FAX #: [phone] Reason: POSSIBLE PERTITONEAL FLUID INFECTION, RULE OUT. EXAMS: CPT CODE: [id number] US ABDOMEN LTD 81218 CLINICAL HISTORY: Possible peritoneal fluid infection,. Do [...] (141) Chuck Orig Print D/T: S: 10/26/2020 (7927) Probe: PAGE 1 Signed ReportPROTHROMBIN [id number] 13:56:00 Test Item Value Reference Range Interpretation [...] o prevent recurre nt infarct). THROMBOPLASTIN TIME [id number] 13:56:00 Test Item Value Reference Range Interpretation Comments THROMBOPLASTIN TIME PARTIAL (test Seconds 25.0-39.5 code = PTT) PROTHROMBIN [id number] 13:56:00 Test Item Value Reference Range Interpretation [...] o prevent recurre nt infarct). THROMBOPLASTIN TIME [id number] 13:56:00 Test Item Value Reference Range Interpretation Comments THROMBOPLASTIN TIME 33.8 Seconds 25.0-39.5 N Ther apeutic PARTIAL (test code = Range: 50.4 - 88.3 PTT) Seconds Effective 02/19/2019 BASIC METABOLIC [id number] 08:02:00 Test Item Value Reference Range Interpretation [...] 8.0-10.5 N CA) - XR CHEST 2 [id number] 17:16:00 [facility] : 1970 Sex: M FAX: Tray Donald [phone] [place]: St: ADM FAX: Nirav Zamudio am, MD FAX: Antonino Huff MD [phone] Name: ROSY MAGUIRE [facility] [place] : 1970 Age/S: 50/M [address] [place] [address] Blvd Unit #: [id number] Loc: [address] [place] [address] Phys: Antonino Huff MD Acct: [id number] Dis Date: Status: ADM IN PHONE #: [phone] Exam Date: 10/25/20201627 FAX #: [phone] Reason: ? opacity EXAMS: CPT CODE: [id number] XR CHEST 2 V 66161 Chest, 2 views dated 10/25/2020. HISTORY: ? [...] Antonino Huff MD Technologist: Pamela Blake, RT(R) [facility] Date/Time/By: 10/25/2020 (9623) : By: MartinDMM Orig Print D/T: S: 10/25/2020 (5466) PAGE 1 Signed ReportAG HEPATITIS B [id number] 16:37:00 Test Item Value Reference Range Interpretation Comments AG HEPATITIS B SURFACE NON REACTIVE INDEX NonReactive (test code = HBSAG) - XR SHOULDER 2 + V [id number] 13:12:00 [facility] 1970 Sex: M FAX: Tray Donald [phone] [place]: St: ADM FAX: Nirav Zamudio am, MD FAX: Antonino Huff MD [phone] Name: ROSY MAGUIRE [facility] : 1970 Age/S: 50/M [address] [place] [address] Unit #: [id number] Loc: G[address] [place] [address] Phys: Antonino Huff MD Acct: [id number] Dis Date: Status: ADM IN PHONE #: [phone] Exam Date: FAX #: [phone] Reason: Left shoulder region pain EXAMS: CPT CODE: [id number] XR SHOULDER 2 + VLT 20234 PROCEDURE: Left Shoulder Radiographs. Clinical Indication: Left [...] MD Technologist: RT Peter(Toney) Trnscrd Date/Time/By: 10/25/2020 (5042) : By: [email or web address] Orig Print D/T: S: 10/25/2020 (2081) PAGE 1 Signed ReportCOVID 19 Asymptomatic IH [id number] 01:04:00 Test Item Value Reference Range Interpretation [...] COMMENTS: If not done this admissionC REACTIVE [id number] 23:38:00 Test Item Value Reference Range Interpretation Comments C REACTIVE PROTEIN (test code = 19.0 mg/L <10.0 H CRP) CBC W/AUTO [id number] 22:45:00 Test Item Value Reference Range Interpretation [...] REQUIRED (test code NO = MDIFF) LACTIC [id number] 22:35:00 Test Item Value Reference Range Interpretation Comments LACTIC ACID (test code = LACT) 0.9 mmol/L 0.4-1.9 N Coronavirus 2019 nCoV [id number] 20:19:00 Test Item Value Reference Range Interpretation Comments Coronavirus 2019 Negative NEGATIVE Negative re sults should be nCoV Bedside (test treated a s presumptive and code = ifinconsistent with ICNUP54NMMOA) clinical signs and symptoms, or ne cessaryfor patient managem ent, should be tested with an alternativemole cular assay. Negative result s do not preclude ARXB-OeQ-1wenxj tion and should not be u sed as the sole basis forp atient management deci sions. Negative result s should beconsidered in the context of a patient's recent exposures,histo ry, presence of clinical sig ns and symptoms consis tentwith COVID-19. BASIC METABOLIC [id number] 18:28:00 Test Item Value Reference Range Interpretation [...] L Specimen comments: Clean CatchHEPATIC FUNCTION PANEL [id number] 18:28:00 Test Item Value Reference Range Interpretation [...] N code = ALKP) Specimen comments: Clean [id number] 18:28:00 Test Item Value Reference Range Interpretation Comments LIPASE (test code = LIP) 135 Units/L 65.0-230.0 N Specimen comments: Clean [id number] 18:28:00 Test Item Value Reference Range Interpretation Comments TROPONIN-I (test 0.02 NG/ML 0.00-0.06 N REFERENCE R UDAY TROPONIN code = TROPI) I HEALTHY KEYA VIDUALS: <0.06 ng/mL R/O ISCHEMIA: 0.07 - 0.60 ng/mL CUT-OFF R UDAY FOR AMI: 0.60 - 1. 5 ng/mL Specimen comments: Clean Catch- CT ABD PELVIS W/O [id number] 18:26:00 [facility] PRESLEY ROSY : 1970 Sex: M FAX: Nirav Cohen MD [place]: St: [facility] FAX: Mallory Gan MD [phone] Name: ROSY MAGUIRE [facility] : 1970 Age/S: 50/M [address] [facility] [facility] Unit: [id number] Loc: E.ERS[address] [place], [place]: [place] [address] Acct: [id number] Dis Date: Status: REG ER PHONE #: [phone] Exam Date: 10/24/2020 1803 FAX #: [phone] Reason : abd pain, recent hernia repair and perit dialys EXAMS: CPT CODE: [id number] CT ABD PELVIS W/O CONT 13856 CT ABDOMEN AND PELVIS W/O CONTRAST Location [...] Signed Report (CONTINUED) FAX: Nirav Cohen MD [place]: St: REGFAX: Mallory Gan MD [phone] Name: ROSY MAGUIRE [facility] : 1970 Age/S: 50/M [address] [facility] Unit: [id number] Loc : [address] [place]: [place] [address] Acct: [id number] Dis Date: Status: REG ER PHONE #: [phone] Exam Date: 10/24/2020 180 FAX #: [phone] Reason: abd pain, recent hernia repair and perit dialys EXAMS: CPT CODE: [id number] CT ABD PELVIS W/O CONT 00889 <Continued> 2. Peritoneal dialysis catheter is in good position. Atrophic kidneys. 3. Mildly elevated left hemidiaphragm and bibasilar atelectasis. at 1826 Reported and signed by: Francisco Pack M.D. CC: Nirav Braun MD; Mallory Gan MD Technologist: EDGAR CHACON Trnscrd Dt/Tm: 10/24/2020 (1825)t.[email or web address].RK5 Orig Print D/T: S: 10/24/2020 (1828 PAGE 2 Signed ReportBASIC METABOLIC [id number] 18:19:00 Test Item Value Reference Range Interpretation [...] 8.0-10.5 Specimen comments: Clean CatchHEPATIC FUNCTION PANEL [id number] 18:19:00 Test Item Value Reference Range Interpretation [...] 50.0-136.0 code = ALKP) Specimen comments: Clean [id number] 18:19:00 Test Item Value Reference Range Interpretation Comments LIPASE (test code = LIP) Units/L 65.0-230.0 Specimen comments: Clean [id number] 18:19:00 Test Item Value Reference Range Interpretation Comments TROPONIN-I (test code = TROPI) NG/ML 0.00-0.06 Specimen comments: Clean Catch- XR CHEST 1 [id number] 18:14:00 [facility] : 1970 Sex: M FAX: Nirav Cohen MD [place]: St: REG FAX: Mallory Gan MD [phone] Name: ROSY MAGUIRE [facility] : 1970 Age/S: 50/M [address] [facility] [facility] Unit #: [id number] Loc: [address] [place]: [place] [address] Acct: [id number] Dis Date: Status: REG ER PHONE #: [phone] Exam Date: 10/24/2020 181 FAX #: [phone] Reason: Abdominal Pain EXAMS: CPT CODE: [id number] XR CHEST 1 V 73147 Site ID: [id number] HISTORY: Abdominal pain, bleeding [...] 1 Signed Report FAX: Nirav Cohen MD [place]: St: REG FAX: Mallory Gan MD [phone] Name: ROSY MAGUIRE [facility] : 1970 Age/S: 50/M [address] [facility] [employer] Unit #: [id number] Loc: [address] Phys: [place] [address] Acct: [id number] Dis Date: Status: REG ER PHONE #: [phone] Exam Date: 10/24/20201810 FAX #: [phone] Reason: Abdominal Pain EXAMS: CPT CODE: [id number] XR CHEST 1 V 87001 <Continued> Orig Print D/T: S: 10/24/2020 (1816) PAGE 2 Signed ReportPROTHROMBIN [id number] 18:10:00 Test Item Value Reference Range Interpretation Comments PROTHROMBIN TIME 11.4 SECONDS 9.9-12.8 N PATIENT (test code = PTP) INTERNATIONAL NORMAL 1.0 0.89-1.14 N THE INR IS TO BE USED RATIO (test code = ONLY FOR MONITORING INR) ORAL ANTICOAGULANTTH ERAPY. THE FOLLOWING A RE SUGGESTED RANGE S [facility]:[place] INR [...] Clean CatchIs patient on anticoagulants? 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 [facility] CBC W/AUTO [id number] 08:29:00 Test Item Value Reference Range Interpretation [...] (test code NO = MDIFF) BASIC METABOLIC [id number] 08:17:00 Test Item Value Reference Range Interpretation [...] code = 8.5 mg/dL 8.0-10.5 N CA) [id number] 08:04:00 Test Item Value Reference Range Interpretation Comments GLUBED (test code = 94 MG/DL 70-110 N Performe d by certified GLUBED) 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 [facility] - XR T-SPINE [id number] 18:08:00 [facility] 1970 Sex: M FAX: Mery Crane MD [phone] [place]: St: ADM FAX: Seymour Dunham [phone] FAX: Nirav Cohen MD FAX: Beth Correia MD [phone] Name: ROSY MAGUIRE : 1970 Age/S: 50/M [address] [place] [address] Unit #: [id number] Loc: [place] [address] Phys: Seymour Osman PA-C Acct: [id number] Dis Date: Status: ADM IN PHONE#: [phone] Exam Date: 10/21/2020 174 FAX #: [phone] Reason: point tenderness around T7-T8 after fall-back h EXAMS: CPT CODE: [id number] XR T-SPINE 3V 95366 P rocedure: Thoracic Spine Radiographs. 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 [facility] - XR ABDOMEN 1V (KUB)2020-10-21 17:46:00 [facility] : 1970 Sex: M FAX: Estiven Call MD [phone] [place]: St: ADM FAX: Mery Toledo MD [phone] FAX: Nirav Cohen MD FAX: Beth Correia MD [phone] Name: PRESLEYROSY [facility] : 1970 Age/S: 50/M [address] [place] [address] Unit #: [id number] Loc: [address] [address] Phys: Estiven Call MD Acct: [id number] Dis Date: Status: ADM IN PHONE#: [phone] Exam Date: 10/21/2020 1741 FAX #: [phone] Reason: n/v, abdominal pain EXAMS: CPT CODE: [id number] XR ABDOMEN 1V (KUB) 91567 Procedure: Abdominal Radiograph. Clinical Indication: Nausea and vomiting, abdominal pain, malfunction of peritoneal dialysis catheter. Comparison: Abdominal xirivglaji88/2/2017. 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 [facility] - XR CHEST 1 [id number] 17:06:00 [facility] : 1970 Sex: M FAX: Estiven Call MD [phone] [place]: St: ADM FAX: Mery Toledo MD [phone] FAX: Nirav Cohen MD FAX: Beth Correia MD [phone] Name: [facility] 1970 Age/S: 50/M [address] [place] [address] Unit #: [id number] Loc: [address] [place] [address] Phys: Estiven Call MD Acct: [id number] Dis Date: Status: ADM IN PHONE#: [phone] Exam Date: 10/21/2020 165 FAX #: [phone] Reason: recent fall left sided rib hurting EXAMS: CPT CODE: [id number] XR CHEST 1 V 60515 Chest, single view dated 10/21/2020. 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 BASIC METABOLIC [id number] 08:02:00 Test Item Value Reference Range Interpretation [...] code = 8.2 mg/dL 8.0-10.5 N CA) [id number] 08:02:00 Test Item Value Reference Range Interpretation Comments PHOSPHOROUS (test code = PHOS) 8.0 MG/DL 2.5-4.9 H [id number] 08:02:00 Test Item Value Reference Range Interpretation Comments MAGNESIUM (test code = MAG) 2.26 mg/dL 1.80-2.40 N CBC W/AUTO [id number] 06:59:00 Test Item Value Reference Range Interpretation [...] DIFF REQUIRED (test code NO = MDIFF) [id number] 21:48:00 Test Item Value Reference Range Interpretation Comments GLUBED (test code = 140 MG/DL 70-110 H Performe d by certified GLUBED) 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 [facility] TSH REFLEX TO [id number] 17:15:00 Test Item Value Reference Range Interpretation Comments TSH REFLEX TO FT4 (test code = 1.59 IU/mL 0.42-5.47 N TSHREFLEX) HGBA1C%2020-10-20 17:06:00 Test Item Value Reference Range Interpretation Comments HGBA1C% (test code = HGBA1C%) 5.2 %A1C 4.8-6.0 N [id number] 16:37:00 Test Item Value Reference Range Interpretation Comments GLUBED (test code = 144 MG/DL 70-110 H Performe d by certified GLUBED) 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 [facility] [id number] 11:31:00 Test Item Value Reference Range Interpretation Comments GLUBED (test code = 128 MG/DL 70-110 H Performe d by certified GLUBED) 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 [facility] CBC W/AUTO [id number] 08:46:00 Test Item Value Reference Range Interpretation [...] (test code NO = MDIFF) BASIC METABOLIC [id number] 08:07:00 Test Item Value Reference Range Interpretation [...] code = 8.7 mg/dL 8.0-10.5 N CA) [id number] 07:46:00 Test Item Value Reference Range Interpretation Comments GLUBED (test code = 114 MG/DL 70-110 H Performe d by certified GLUBED) 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 [facility] Novel Coronavirus 2018 [id number] 21:59:00 Test Item Value Reference Range Interpretation [...] in vitro. COMMENTS: N- XR CHEST 2 [id number] 10:50:00 [facility] 1970 Sex: M FAX: Nirav Cohen MD [place]: St: PRE FAX: Beth Correia MD [phone] FAX: Tamika Hadley Name: ROSY MAGUIRE [facility] : 1970 Age/S: 50/M [address] [place] [address] Unit #: [id number] Loc: [place] [address] Phys: Tamika Hadley NP Acct: [id number] Dis Date: Status: PRE [facility] PHONE #: [phone] Exam Date: FAX #: [phone] Reason: PRE- OP HERNIA REPAIR EXAMS: CPT CODE: [id number] XR CHEST 2 V 52771 EXAM: CHEST TWO VIEW HISTORY: 50-year-old male for preoperative evaluation, hernia repair COMPARISON: Chest radiograph 09/07/2017 FINDINGS: Elevated left hemidiaphragm. The lungs are clear. The cardiomediastinal silhouette is normal for projection. Aortic locations. No acute osseous abnormality.Cervical spinal hardware partially visualized. IMPRESSION: 1. No acute cardiopulmonary abnormality. SL: [id number] at 1050 Reported and signed by: Lucia Montano M.D. CC: Nirav Braun; Beth Frankel MD; Tamika Hadley NP Technologist: RT Jarrod(R) Trnscrd Date/Time/By: 10/16/2020 (2778) : By: [email or web address] Orig Print D/T: S: 10/16/2020 (9121) PAGE 1 Signed ReportCBC W/AUTO [id number] 10:39:00 Test Item Value Reference Range Interpretation [...] REQUIRED (test code NO = MDIFF) PLT [id number] 10:39:00 Test Item Value Reference Range Interpretation Comments PLATELET ESTIMATE (test code 100-125 THOUSAND ADEQUATE = PLTEST) PLATELET MORPHOLOGY (test LARGE PLATELETS code = PLTMORPH) BASIC METABOLIC [id number] 10:19:00 Test Item Value Reference Range Interpretation [...] 8.4 mg/dL 8.0-10.5 N CA) CBC W/AUTO [id number] 09:57:00 Test Item Value Reference Range Interpretation [...] REQUIRED (test code NO = MDIFF) PLT [id number] 09:57:00 Test Item Value Reference Range Interpretation Comments PLATELET ESTIMATE (test code = THOUSAND ADEQUATE PLTEST) CBC W/AUTO [id number] 09:56:00 Test Item Value Reference Range Interpretation [...] REQUIRED (test code NO = MDIFF) PLT [id number] 09:56:00 Test Item Value Reference Range Interpretation Comments PLATELET ESTIMATE (test code = THOUSAND ADEQUATE PLTEST) CBC W/AUTO [id number] 09:49:00 Test Item Value Reference Range Interpretation [...] REQUIRED (test code = MDIFF) BASIC METABOLIC [id number] 12:52:00 Test Item Value Reference Range Interpretation [...] 8.3 mg/dl 8.0-10.5 N CA) CBC W/AUTO [id number] 12:42:00 Test Item Value Reference Range Interpretation [...] N NRBC#) - CT ABD PELVIS W/O [id number] 08:55:00 [facility] : 1970 Sex: M FAX: Nirav Cohen MD [place]: St: REG FAX: Jeremy Correia MD [phone] Name: ROSY MAGUIRE [facility] : 1970 Age/S: 50/M [address] [facility] Unit: [id number] Loc: [place]: [place] [address] Acct: [id number] Dis Date: Status: REG CLI PHONE #: [phone] Exam Date: 09/29/2020 0834 FAX #: [phone] Reason : RIGHT GROIN PAIN EXAMS: CPT CODE: [id number] CT ABD PELVIS W/O CONT [id number] HI STORY: Right inguinal pain, right lower [...] Signed Report (CONTINUED) FAX: Nirav Cohen MD [place]: St: REG FAX: Beth Correia MD [phone] Name: ROSY MAGUIRE [facility] : 1970 Age/S: 50/M [address] [facility] Unit: [id number] Loc: [place], [place] Phys: [place] [address] Acct: [id number] Dis Date: Status: REG CLI PHONE #: [phone] Exam Date: 09/29/2020 0834 FAX #: [phone] Re ason: RIGHT GROIN PAIN EXAMS: CPT CODE: [id number] CT ABD PELVIS W/O CONT 83018 <Continued> IMPRESSION: Limited Study. Normal appendix seen [...] (0855) [email or web address] Orig Print D/T: S: 09/29/2020 (9658 PAGE 2 Signed ReportBASIC METABOLIC PANEL 2020-09-17 [...] CA) 8.1 mg/dl 8.0-10.5 N CBC W/AUTO [id number] 06:29:00 Test Item Value Reference Range Interpretation [...] 0.00-0.01 N NRBC#) COVID 19 Asymptomatic IH [id number] 05:55:00 Test Item Value Reference Range Interpretation Comments COVID 19 NEGATIVE NEGATIVE Negative result s should be Asymptomatic IH AG treated a s presumptive and (test code = ifinconsistent with COVNONPUIAG) clinical signs and symptoms, or ne cessaryfor patient managem ent, should be tested with an alternativemole cular assay. Negative results do not preclude MURT-AlQ-7cjmcv tion and should not be u sed as the sole basis forp atient management deci sions. Negative result s should beconsidered in the context of a pa rc's recent exposure s,history, presence of cli nical signs and symptoms consistentwith COVID-19. LACTIC [id number] 09:23:00 Test Item Value Reference Range Interpretation Comments LACTIC ACID (test code = LACT) 1.0 MMOL/L 0.4-2.0 N BASIC METABOLIC [id number] 09:11:00 Test Item Value Reference Range Interpretation [...] 8.2 mg/dl 8.0-10.5 N CA) CBC W/AUTO [id number] 09:06:00 Test Item Value Reference Range Interpretation [...] 0.00 X10 3uL 0.00-0.01 N NRBC#) SURGICAL [id number] 14:26:00 RUN DATE: 02/21/20 [facility] - LAB PAGE 1 RUN TIME: 1427 Specimen Inquiry RUN USER: INTERFACE PATIENT: ROSY MAGUIRE LOC: [place] U #: [id number] AGE/SX: 49/M ROOM: RE02/20/20[facility] DR: Saroj Coates MD : 66 BED: DIS: STATUS: [facility] [place]: SPEC #: [id number] RECD: 02/20/20 STATUS: NEIL CRENSHAW #: [id number] BENEDICTO: 02/20/[address] [facility] [address]: Saroj Coates MD ENTERED: 02/20/20 [...] approximately 1 x 1 x 1 cm. Senior It Business Analyst sections are submitted asfollows: SECTION CODE: CONTINUED ON NEXT PAGE RUN DATE: 02/21/20 [facility] - LAB PAGE 2 RUN TIME: 1426 Specimen Inquiry RUN USER: INTERFACE SPEC #: [id number] PATIENT: ROSY MAGUIRE #[id number] (Con tinued) GROSS DESCRIPTION (Continued) A1-A2: First described small area A3-A5: Larger second described nodule RAB/th MICROSCOPIC DESCRIPTION Microscopic performed. Signed SIGNATURE ON FILE Rosemarie Ryder MD 02/21/20 1426 END OF REPORT [id number] 13:17:00 Test Item Value Reference Range Interpretation Comments GLUBED (test code = GLUBED) 101 MG/DL 70-105 N BASIC METABOLIC [id number] 06:39:00 Test Item Value Reference Range Interpretation [...] 8.8 mg/dL 8.8-10.2 N CA) CBC W/AUTO [id number] 06:35:00 Test Item Value Reference Range Interpretation [...] BA#) 0.05 x10 3/uL 0.0-0.20 N SPECIAL BVVFGJALU8482-76-50 17:02:[facility].8[facility] 2018-07-12 17:02:005.8[facility]annSPECIAL PPFLRFBFT5621-69-37 17:02:005.8 [facility] HermannSPECIAL WLTKLDCOF1784-41-38 17:02:005.8[facility] FCSJKRMDZD6053-20-44 16:58:0032.7[facility] MnccvgiOJQUVIZZUX2983-33-74 16:58:00 15.7[facility] EvvupxtFVVEEKWJAY3148-30-35 16:58:0082.5[facility]annHEMATOLOGY 2018-07-12 16:58:0012.1[facility] IbcdoxeVRXZGGVSOS3382-29-34 16:58:004.49[facility] GaefxhyISXCWDOKVN0183-99-60 16:58:0010.7[facility] IprvyvpYWITHEVBQN9256-23-09 16:58:000.6[facility] HwpqugcDMJEVPBSYX9757-02-65 16:58:004.6[facility] Rob FRCTBXUZML9733-68-07 16:58:007.0[facility] LsjcfqyRJKMSWYMAC5798-08-75 16:58:002.4 [facility] ElqgkueULIXFSLYKY1841-28-31 16:58:000.8[facility] HermannHEMATOLOGY 2018-07-12 16:58:0022.5[facility] YkiibilVJFVALAQHW1144-77-82 16:58:007.2[facility] ScrctfyGVUHPUMFUX3024-90-95 16:58:000.5[facility] ZzgjfleINVPTYJMUN9891-85-29 16:58:000.1[facility] RxciauaTMOCDFMEUT8246-43-69 16:58:0065.1[facility] BLOOD BANK FKLDODA3233-53-53 16:58:00Negative (07/12/18 11:58 AM)[facility] FBIEXZNYFWUT6473-58-58 16:58:0010.2[facility] QmfzcwoYCTQWFBYPDWV9927-76-92 16:58:0019[facility] ZjqlxsdLYYCVOGKZKMD5217-04-03 16:58:008.0[facility] YHBRYXMEETKX7922-22-43 16:58:0026[facility] GkdkvzxQIOFJGQNIQNW3807-71-74 16:58:00 3.53[facility] CewundrILJIZTSUOWFL1779-47-05 16:58:0033[facility] UATJYAJLSTUH8859-13-02 16:58:0086[facility] AfsyomnKJFAIVUDJQIL1768-22-15 16:58:00 108[facility] WgaenjnGFXGUZXAHEXO5531-73-23 16:58:90558Npfzjmro Rob XNCPLTTSCFOR3523-68-06 16:58:005.2[facility] EnsbgokCDCELOHEDJ7407-49-62 16:58:00 Test Item Value Reference Range Interpretation Comments PTT (test code = PTT) 34.8 s 22.9-35.8 [facility] IrjnwouBSWUQIZTJZ4629-80-94 16:58:00 Test Item Value Reference Range Interpretation Comments INR (test code = INR) 0.94 1 0.85-1.17 [facility] LkqihavXMANUGNCFF7444-42-61 16:58:00 Test Item Value Reference Range Interpretation Comments PT (test code = PT) 12.6 s 12.0-14.7 [facility] NabxdblTCFJOXTJTU6805-84-74 16:58:39945Szyulrpg HermannHEMATOLOGY 2018-07-12 16:58:007.6[facility] YknkqgyGCRTOELQNN6337-15-23 16:58:0037.0[facility] JsmsthuRKYMWWKXYD2777-27-31 16:58:00 Test Item Value Reference Range Interpretation Comments MCH (test code = MCH) 27.0 pg 27.0-31.0 [facility] XxrezrnVSNOCICWGQ9069-34-80 16:58:0032.7[facility] HermannHEMATOLOGY 2018-07-12 16:58:0015.7[facility] YwgrflhLFMVEEWTAB1135-77-77 16:58:0082.5[facility] XkcifseVKBHKJLABD9269-80-26 16:58:0012.1[facility] QzqboelCQZZSEFQWK3793-82-28 16:58:004.49[facility] SqjtvdzQNQZBQVALL8047-76-22 16:58:0010.7[facility] EOVUBAERHV0318-66-84 16:58:000.6[facility] XgytqcjBFELIPBFGJ7847-02-32 16:58:004.6 [facility] DmywipcKBTHIMMSWV9774-82-96 16:58:007.0[facility] HermannHEMATOLOGY 2018-07-12 16:58:002.4[facility] MeguhcjXTLZMVYLRT7840-89-60 16:58:000.8[facility] VzfdmaoAVAVWOCPGT1033-55-31 16:58:0022.5[facility] NeqjopsKNPNOPWTYC1478-45-43 16:58:007.2[facility] YemapvrUBTYNMEWEN9615-77-25 16:58:000.5[facility] Rob OPBRCXOAKA3405-14-46 16:58:000.1[facility] TkvpiftZRZXITRMFH3165-30-69 16:58:00 65.1[facility] HermannBLOOD BANK UTKEOUO5694-16-09 16:58:00Negative (07/12/18 11:58 AM)[facility] HgyptoySICBMILYWMQD3347-78-38 16:58:0010.2[facility] Rob JNYVGJUHGESZ9365-29-74 16:58:0019[facility] MrustdlHIKYLCFRAPHY2781-34-02 16:58:00 8.0[facility] CavpkfxRSIWNPPNUTTZ6888-68-99 16:58:0026[facility] HermannELECTROLYTES 2018-07-12 16:58:003.53[facility] IsyyoviUVGUCUBLZIEZ7308-91-35 16:58:0033[facility] PrvmgxmDTEHJYDOBGNF1544-30-84 16:58:0086[facility] ZjkfgmiYCGAEWZIRPET0336-00-43 16:58:39530Cdsxmdto QxdkokhEYIHZFAWRPSP1041-67-87 16:58:16111Upprjvoz Rob OYKBQJEXVCVQ5471-37-52 16:58:005.2[facility] CpaablqHMJDKLQGBM4760-57-92 16:58:00 Test Item Value Reference Range Interpretation Comments PTT (test code = PTT) 34.8 s 22.9-35.8 [facility] KymthkuQCSAILIIMF7370-11-15 16:58:00 Test Item Value Reference Range Interpretation Comments INR (test code = INR) 0.94 1 0.85-1.17 [facility] PmtjpvqXFEUJUVJLP7473-19-11 16:58:00 Test Item Value Reference Range Interpretation Comments PT (test code = PT) 12.6 s 12.0-14.7 [facility] OatuethANIQKRPEHU0491-07-62 16:58:10890Aevdsqkm HermannHEMATOLOGY 2018-07-12 16:58:007.6[facility] SuocxmxDFPWXSPZPK4431-35-14 16:58:0037.0[facility] BebmxrsCDIFISRPKS4730-76-59 16:58:00 Test Item Value Reference Range Interpretation Comments MCH (test code = MCH) 27.0 pg 27.0-31.0 [facility] YsablkfWFZHYVVOZD7281-89-14 16:58:0032.7[facility] HermannHEMATOLOGY 2018-07-12 16:58:0015.7[facility] JfjueigWHEZOQCVMS8685-23-04 16:58:0082.5[facility] ZwqqcwoMAMHYFTJUT4967-97-14 16:58:0012.1[facility] QxanmffRRQAEIJXYW1388-82-43 16:58:004.49[facility] VfxnsqdHMYBLUBDCN7641-40-19 16:58:0010.7[facility] JXGTMWWHAN4943-53-90 16:58:000.6[facility] KfsbqbdEOBIPKRXMT3090-81-08 16:58:004.6 [facility] TgtbgedGTKZSOQYIA6909-80-83 16:58:007.0[facility] HermannHEMATOLOGY 2018-07-12 16:58:002.4[facility] TwrgujhIISOMANYOA5907-55-37 16:58:000.8[facility] DjpbcktRCGVNOCCND7255-42-92 16:58:0022.5[facility] DtgufwiZIQBDEZSWA0267-88-55 16:58:007.2[facility] RxherolHPMQVVOZRS1040-00-01 16:58:000.5[facility] TGZHKNQTOT0275-29-44 16:58:000.1[facility] PeafcbdTCOSOVQTZO3395-32-49 16:58:00 65.1[facility] HermannBLOOD BANK YEPPYKT7254-80-47 16:58:00Negative (07/12/18 11:58 AM)[facility] WligsrtUDWCHBZBIDLK4321-21-85 16:58:0010.2[facility] CQTMWWIUPYUK8028-16-33 16:58:0019[facility] EzzvbztAQYBTSUEHPBR4562-92-93 16:58:00 8.0[facility] BgdfvswTUWYGRXAXQZO5950-84-49 16:58:0026[facility] HermannELECTROLYTES 2018-07-12 16:58:003.53[facility] GqloiusRFDBCUIIMMJC9753-41-90 16:58:0033[facility] XcssbzzITUKVBBOUYBQ4312-06-36 16:58:0086[facility] VyemuwePPGNRGERHOQM8842-33-55 16:58:42129Yvrldccc YpmackwBCVULBUFXJYX6662-43-77 16:58:59493Krsemnxm Rob TCKFQDUAGZOI9336-66-06 16:58:005.2[facility] TnrlummBVUYTFVIUR5118-74-25 16:58:00 Test Item Value Reference Range Interpretation Comments PTT (test code = PTT) 34.8 s 22.9-35.8 [facility] TujiiipIJEZWZDXNR2145-53-47 16:58:00 Test Item Value Reference Range Interpretation Comments INR (test code = INR) 0.94 1 0.85-1.17 [facility] LulpmlmRQFVMMFGBQ2428-21-61 16:58:00 Test Item Value Reference Range Interpretation Comments PT (test code = PT) 12.6 s 12.0-14.7 [facility] RxkenceARPTADZFDP7929-30-23 16:58:05503Cvpxppkr HermannHEMATOLOGY 2018-07-12 16:58:007.6[facility] WqzloguPSLQOEGWUY8170-54-70 16:58:0037.0[facility] ZfkjfofNGGAKLZYWX6255-34-25 16:58:00 Test Item Value Reference Range Interpretation Comments MCH (test code = MCH) 27.0 pg 27.0-31.0 [facility] WduejfwGWTUZCJARH9098-31-12 16:58:0032.7[facility] HermannHEMATOLOGY 2018-07-12 16:58:0015.7[facility] AruefovRTAWAQTLSH7850-23-37 16:58:0082.5[facility] NeberuqSMTEDLJLZT6287-27-03 16:58:0012.1[facility] LnceftcBGYLUISAKK3061-23-11 16:58:004.49[facility] TrmotrcFKAUGAOVUM9653-77-73 16:58:0010.7[facility] Rob SRLYRJTNRV5032-84-52 16:58:000.6[facility] YfswvliYHNTQDPQEY5528-45-36 16:58:004.6 [facility] VyaxqziPOQKYKJDBL3401-56-43 16:58:007.0[facility] HermannHEMATOLOGY 2018-07-12 16:58:002.4[facility] QjalfseLYTDUVEJXQ2873-15-38 16:58:000.8[facility] PyedsulYASKAUPKRX6498-72-80 16:58:0022.5[facility] UztuizsXBJQOKWEOX5340-83-50 16:58:007.2[facility] QtwmhlyUCYUSAKAQH5526-26-12 16:58:000.5[facility] YTTKUHSPYB7725-31-26 16:58:000.1[facility] ThpodvrWTRZTRKAMS1385-69-36 16:58:00 65.1[facility] HermannBLOOD BANK KOCSNWJ6213-54-63 16:58:00Negative (07/12/18 11:58 AM)[facility] XloyeagUQKOGOQSNKVV5995-40-83 16:58:0010.2[facility] QKOSGMQIPIYD4307-28-12 16:58:0019[facility] XcklzvjVPBVLOKXCXSO0868-20-19 16:58:00 8.0[facility] HiqbectLMVMFKAASTOB5244-95-07 16:58:0026[facility] HermannELECTROLYTES 2018-07-12 16:58:003.53[facility] AbgujbbIWXLXLFZAJBE2258-66-00 16:58:0033[facility] WaczgjhFQKFQFPEFRVL5318-86-79 16:58:0086Mem[facility] OorkoyjEIYYCIZYIEEB5340-52-25 16:58:25220Kopluops ZmqjbhhURESLGJGQYPJ0349-42-89 16:58:03818Bmwwvkzz Rob RCYGAZDAWFKV8044-17-59 16:58:005.2[facility] AumgkkrGBFDQUICZE6541-40-95 16:58:00 Test Item Value Reference Range Interpretation Comments PTT (test code = PTT) 34.8 s 22.9-35.8 [facility]wLWCMSAGXQZ5001-[facility] 16:58:00 Test Item Value Reference Range Interpretation Comments INR (test code = INR) 0.94 1 0.85-1.17 [facility] BfkyrexYTKAEHKVOD5949-12-99 16:58:00 Test Item Value Reference Range Interpretation Comments PT (test code = PT) 12.6 s 12.0-14.7 [facility] CenterNbzeybmZUNJHERZLP3247-77-87 16:58:71125Zpfzffuu HermannHEMATOLOGY 2018-07-12 16:58:007.6[facility] GzkzepiCISPCWBHNK3304-26-09 16:58:0037.0[facility] SelfewgLPWXCMDYKR1952-16-92 16:58:00 Test Item Value Reference Range Interpretation Comments MCH (test code = MCH) 27.0 pg 27.0-31.0 [facility]
== END 2022-05-12 18:10 | disposition short-term general hospital (02) | DRG 308 ==
LOC: ER 10:53 → ERHOLD 16:29 → 3RD-ICU 20:24
PROVIDERS: ADMIT Internal Medicine; ATTEND Internal Medicine
DX: I49.5 Sick sinus syndrome (principal); N18.6 End stage renal disease; I12.0 Hypertensive chronic kidney disease with stage 5 chronic kidney disease or end stage renal disease; I48.91 Unspecified atrial fibrillation; R00.1 Bradycardia, unspecified; E11.22 Type 2 diabetes mellitus with diabetic chronic kidney disease; D63.1 Anemia in chronic kidney disease; R55 Syncope and collapse; M06.9 Rheumatoid arthritis, unspecified; K21.9 Gastro-esophageal reflux disease without esophagitis; F32.A Depression, unspecified; F41.9 Anxiety disorder, unspecified; F12.90 Cannabis use, unspecified, uncomplicated; F17.200 Nicotine dependence, unspecified, uncomplicated; Z20.822 Contact with and (suspected) exposure to COVID-19; Z99.2 Dependence on renal dialysis; Z79.82 Long term (current) use of aspirin; Z79.01 Long term (current) use of anticoagulants; Z79.899 Other long term (current) drug therapy; Z88.8 Allergy status to other drugs, medicaments and biological substances; Z85.528 Personal history of other malignant neoplasm of kidney; Z89.511 Acquired absence of right leg below knee; Z89.422 Acquired absence of other left toe(s); Z90.5 Acquired absence of kidney; Z96.659 Presence of unspecified artificial knee joint
CPT/HCPCS: 36415; 71045; 80048; 82947; 83735; 83880; 84100; 84439; 84443; 84484; 85025; 93005; 96374; 96375; 99285; J0282; J0360; J2270; U0003

== ENCOUNTER 2022-05-23 18:24 | Emergency (ER) | payer OTHER ==
--- NOTE | 2022-05-23 19:52 | EDPHYS ---
Physician Documentation [facility] Name: Vladimir Maguire Age: 51 yrs Sex: Male : 1970 Arrival Date: 05/23/2022 Time: 18:25 Bed Treatment Private MD: ED Physician Zacarias Anders HPI: 05/23 19:45 This 51 yrs old Male presents to ER via Ambulatory with complaints of Incision rn Problem. 19:45 Patient presents to ED for recheck of: puncture wound. The affected area is on the rn right groin. Previous treatment: The patient was initially treated 7 day(s) ago. The patient has not experienced similar symptoms in the past. The patient has been recently seen by a physician:. Pt reports had pacemaker placed 1 week ago at [facility], reports needs wound checked because feels like might be opening up. No fever. NO trauma. No drainage.. Historical: - Allergies: 19:24 Ativan; hb - PMHx: 19:24 Diabetes - NIDDM; Hypertension; neuropathy; Renal Disease; Rheumatoid Arthritis; hb - Social history:: Smoking status: Patient denies any tobacco usage or history of. - Family history:: not pertinent. - Hospitalizations: : Patient was recently seen at. ROS: 19:45 Constitutional: Negative for fever, chills, and weight loss, Abdomen/GI: Negative for rn abdominal pain, nausea, vomiting, diarrhea, and constipation, MS/Extremity: Negative for injury and deformity, Skin: + irritation and soreness to right groin Exam: 19:45 Constitutional: This is a well developed, well nourished patient who is awake, alert, rn and in no acute distress. Abdomen/GI: soft, non-tender Skin: Warm, dry, 2 well-healing surgical wounds right groin, no evidence of dehiscence, no drainage, no foul smell, no purulence. No masses or fluctuance. Vital Signs: 19:21 BP 171 / 96; Pulse 82; Resp 16; Temp 97.9; Pulse Ox 100% on R/A; Weight 81.65 kg; hb Height 5 ft. 8 in. (172.72 cm); Pain 1/10; 19:21 Body Mass Index 27.37 (81.65 kg, 172.72 cm) hb MDM: 19:32 Patient medically screened. rn 19:45 Differential diagnosis: cellulitis, early dehiscence. Data reviewed: vital signs, rn nurses notes, and as a result, I will discharge patient. Counseling: I had a detailed discussion with the patient and/or guardian regarding: the historical points, exam findings, and any diagnostic results supporting the discharge/admit diagnosis, the need for outpatient follow up, to return to the emergency department if symptoms worsen or persist or if there are any questions or concerns that arise at home. Special discussion: I discussed with the patient/guardian in detail that at this point there is no indication for admission to the hospital. It is understood, however, that if the symptoms persist or worsen the patient needs to return immediately for re-evaluation. ED course: NO evidence of dehiscence at this point, reports no gross changes. . 05/23 19:44 Order name: Wound dressing: steri-strips; Complete Time: 19:53 rn Administered Medications: 19:53 Drug: Doxycycline 100 mg Route: PO; ld1 19:53 Drug: Clindamycin 300 mg Route: PO; ld1 Disposition Summary: 05/23/22 19:51 Discharge Ordered Location: Home rn Problem: new rn Symptoms: have improved rn Condition: Stable rn Diagnosis - Disruption of wound, not elsewhere classified rn Followup: rn - With: Private Physician - When: As needed - Reason: Recheck today's complaints, Re-evaluation by your physician Discharge Instructions: - Discharge Summary Sheet rn - Sutured Wound Care, Eapn-bu-Buxg rn Forms: - Medication Reconciliation Form rn - Thank You Letter rn - Antibiotic manufacturing intern - Prescription Opioid Use rn Prescriptions: - Clindamycin HCl 300 mg Oral Capsule - take 1 capsule by ORAL route every 6 hours for 10 days; 40 capsule; Refills: 0, rn Product Selection Permitted - Doxycycline Monohydrate 100 mg Oral Tablet - take 1 tablet by ORAL route every 12 hours for 10 days; 20 tablet; Refills: 0, rn Product Selection Permitted Signatures: Zacarias Anders MD MD rn Baxter, Heather, RN RN hb Dibbern, Lauren, RN RN ld1
--- NOTE | 2022-05-23 19:52 | ER ---
Nurse's Notes [facility] Name: Vladimir Maguire Age: 51 yrs Sex: Male : 1970 Arrival Date: 05/23/2022 Time: 18:25 Bed Treatment Private MD: Diagnosis: Disruption of wound, not elsewhere classified Presentation: 05/23 19:21 Chief complaint: Had pacemaker placed 05/14, concerned right groin incision hb opening/infected. Coronavirus screen: At this time, the client does not indicate any symptoms associated with coronavirus-19. Ebola Screen: No symptoms or risks identified at this time. Initial Sepsis Screen: Does the patient meet any 2 criteria? No. Patient's initial sepsis screen is negative. Does the patient have a suspected source of infection? No. Patient's initial sepsis screen is negative. Risk Assessment: Do you want to hurt yourself or someone else? Patient reports no desire to harm self or others. Onset of symptoms was May 23, 2022. 19:21 Method Of Arrival: Ambulatory hb 19:21 Acuity: GINA 3 hb Historical: - Allergies: 19:24 Ativan; hb - PMHx: 19:24 Diabetes - NIDDM; Hypertension; neuropathy; Renal Disease; Rheumatoid Arthritis; hb - Social history:: Smoking status: Patient denies any tobacco usage or history of. - Family history:: not pertinent. - Hospitalizations: : Patient was recently seen at. Screenin:02 Abuse screen: Denies threats or abuse. Denies injuries from another. Nutritional ld1 screening: No deficits noted. Tuberculosis screening: No symptoms or risk factors identified. Fall Risk None identified. Assessment: 20:02 Reassessment: See triage assessment. ld1 Vital Signs: 19:21 BP 171 / 96; Pulse 82; Resp 16; Temp 97.9; Pulse Ox 100% on R/A; Weight 81.65 kg; hb Height 5 ft. 8 in. (172.72 cm); Pain 1/10; 19:21 Body Mass Index 27.37 (81.65 kg, 172.72 cm) hb ED Course: 18:25 Patient arrived in ED. as 19:24 Triage completed. hb 19:24 Arm band placed on. hb 19:32 Zacarias Anders MD is Attending Physician. rn 19:43 Dibbern, Jacqueline, RN is Primary Nurse. ld1 20:02 Patient has correct armband on for positive identification. Placed in gown. Bed in low ld1 position. Call light in reach. Side rails up X2. Pulse ox on. NIBP on. Door closed. Noise minimized. Warm blanket given. 20:02 No provider procedures requiring assistance completed. Patient did not have IV access ld1 during this emergency room visit. Administered Medications: :53 Drug: Doxycycline 100 mg Route: PO; ld1 19:53 Drug: Clindamycin 300 mg Route: PO; ld1 Medication: 20:02 VIS not applicable for this client. ld1 Outcome: 19:51 Discharge ordered by . rn 20:02 Discharged to home ambulatory. ld1 20:02 Condition: stable 20:02 Discharge instructions given to patient, Instructed on discharge instructions, follow up and referral plans. medication usage, Demonstrated understanding of instructions, follow-up care, medications, Prescriptions given X 1. 20:03 Patient left the ED. ld1 Signatures: Gita Madden Roman, MD MD rn Baxter, Heather, RN RN Jacqueline Tillman RN RN ld1
[2022-05-23] MEDS ORDERED: DOXYCYCLINE 100 MG CAP PO ONE (19:54)
[2022-05-23 20:12] VITALS: BP 171/96; TEMP 97.9; O2SAT 100
== END 2022-05-23 20:03 | disposition home or self-care (01) ==
LOC: ER 18:24
DX: T81.30XA Disruption of wound, unspecified, initial encounter (principal); Z95.0 Presence of cardiac pacemaker; E11.22 Type 2 diabetes mellitus with diabetic chronic kidney disease; N18.9 Chronic kidney disease, unspecified; Z88.8 Allergy status to other drugs, medicaments and biological substances
CPT/HCPCS: 99283

== ENCOUNTER 2022-06-22 18:34 | Emergency (ER) | payer OTHER ==
--- OUTSIDE RECORDS SUMMARY | 2022-06-22 18:41 | XMS REPORT | Continuity of Care Document ---
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 Jocelyne [facility] 15:07:00 [facility] Respiratory rate 2022-06-13 17 /min [facility] 15:07:00 [facility] Body height 2022-06-13 177.8 cm [facility] 15:07:00 [facility] Body weight 2022-06-13 98.068 kg [facility] 15:07:00 [facility] BMI 2022-06-13 31.02 kg/m2 [facility] 15:07:00 [facility] Respitory Rate 2018-07-12 Gerard Pastrana tarsha 17:23:00 Heart Rate 2018-07-12 Gerard Johnson n 17:23:00 Temperature Oral 2018-07-12 98 F [facility] rmann (F) 17:23:00 Systolic (mm Hg) 2018-07-12 [facility] Refugio rmann 17:23:00 Diastolic (mm Hg) 2018-07-12 [facility] Nini ermann 17:23:00 BMI Calculated 2018-07-12 Gerard Herm tarsha 17:01:00 Weight 2018-07-12 Gerard Johnson n 17:01:00 Height 2018-07-12 180.34 cm Gerard Johnson n 17:01:00 Procedures Procedure Date / Time Performing Clinician Source Performed MISC - NON-LEGAL REC 2022-06-14 05:01:00 Doctor Unassigned, No [facility] [id number] 2020-10-26 00:00:00 [facility]GE [facility] [id number] 2020-10-20 00:00:00 [facility] [id number] 2020-10-20 00:00:00 [facility] Christine [facility] [id number] 2020-10-20 00:00:00 [facility] Christine Vyas [facility] [id number] 2020-10-20 00:00:00 [facility] Christine [facility] [id number] 2020-10-20 00:00:00 [facility] Christine [facility] [id number] 2020-10-20 00:00:00 [facility] Christine [facility] Amputation [facility] Anterior spinal fusion [facility] for cervical spinal deformity BKA - Below knee [facility] n amputation Insertion of tunnelled [facility] dialysis catheter using fluoroscopic guidance Knee replacement [facility] n ORIF - Open reduction [facility] and internal fixation of fracture Tonsillectomy [facility] Plan of Care Planned Activity Planned Date Details Comments Source Future Scheduled Test 2018 00:00:00 Screening for [facility] malignant neoplasm of colon (procedure) [code = 157210747] Future Scheduled Test 2018 00:00:00 Screening for [facility] malignant neoplasm of colon (procedure) [code = 133764452] Future Scheduled Test 1980 00:00:00 COVID-19 Vaccine (1) [facility] [code = COVID-19 Vaccine (1)] Future Scheduled Test 1980 00:00:00 COVID-19 Vaccine (1) [facility] [code = COVID-19 Vaccine (1)] Encounters Start End Encounter Admission Attending Care Care Encounter Source Date/Time Date/Time Type Type Clinicians Facility Department ID 2022-06-21 Outpatient [facility] [id number] [place] 12:05:58 [id number] [facility] 2022-06-15 Outpatient [facility] [id number] [place] 11:13:15 [id number] [facility] 2022-05-23 Outpatient [facility] [id number] [place] 15:06:41 [id number] [facility] 2022-02-27 Outpatient [facility] [id number] [place] 13:36:34 [id number] [facility] 2022-02-24 Outpatient [facility] [id number] [place] 09:21:19 [id number] [facility] 2022-02-22 Outpatient [facility] [id number] [place] 06:54:13 [id number] [facility] 2022-02-13 Outpatient [facility] [id number] [place] 17:29:23 [facility] 2021-09-14 Inpatient THALIA Braun, HCAMN MMRI [id number] [facility] 10:00:00 Nirav [id number] [facility] 2021-09-13 Inpatient THALIA Braun, HCAMN MMRI [id number] [facility] 10:00:00 Nirav [id number] [facility] 2021-04-02 Inpatient Karnelida, Amir [facility] DAYS [id number] [facility] 09:15:[id number] [facility] 2020-11-30 Inpatient Frankel, HCACL DAYS [id number] [facility] 14:00:00 Dhruvil [id number] [facility] 2020-11-27 Inpatient Frankel, HCACL DAYS [id number] [facility] 08:30:00 Dhruvil [id number] [facility] 2020-11-26 Inpatient THALIA Frankel, HCAMN MRAD [id number] [facility] 14:29:00 Dhruvil [id number] [facility] 2020-11-13 Inpatient EM EDDOC, HCAMN MRAD [id number] [facility] 13:08:00 GENERIC [id number] [facility] 2020-10-24 Inpatient HCACL SARA [id number] [facility] 21:12:00 [id number] [facility] 2020-10-24 Inpatient HCAMN KAITLYNN [id number] [facility] 17:30:00 [id number] [facility] 2020-10-16 Inpatient THALIA Frankel, HCACL DAYS [id number] [facility] 08:00:00 Dhruvil [id number] [facility] 2020-10-03 Inpatient HCAMN AKITLYNN [id number] [facility] 12:12:00 [id number] [facility] 2020-08-15 Inpatient HCAMN KAITLYNN [id number] [facility] 07:53:00 [facility] 2020-02-20 Inpatient Aminata, Amir HCAMC DAYS [id number] [facility] 08:15:[id number] [facility] 2022-06-22 2022-06-22 Outpatient R JERE, [facility] [id number] Univers 10:09:13 10:09:13 [address] o f [facility] 2022-06-14 2022-06-14 Orders Doctor JEMAL [id number] Univers 00:00:00 00:00:00 Only Unassigned, HEIDY 350.1.13.10 [facility] 4.2.7.2.686 Gwyn as [id number] [address] 2022-06-13 2022-06-13 Office Jere, [facility] [id number] Univers 10:00:00 10:45:17 Visit Jerod RENEE 350.1.13.10 [place] [id number] [place] [id number] [employer] 2022-05-12 2022-05-14 Inpatient ARBOLEDA, [facility] [id number] 30 [place] 00:00:00 00:00:[address] [place] [address] i 2021-08-05 2021-08-05 Outpatient THALIA Frankel, HCACL DAYS [id number] [facility] 07:27:00 07:27:00 Dhruvil 64 [facility] 2021-08-05 2021-08-05 Outpatient THALIA Frankel, HCACL DAYS [id number] [facility] 07:27:00 07:27:00 Dhruvil [id number] [facility] 2021-08-04 2021-08-04 Outpatient Marlys, HCACL DAYS [id number] [facility] 13:30:00 13:30:00 Dhruvil [id number] [facility] 2021-07-09 2021-07-10 Emergency EM Chao, HCAMN KAITLYNN [id number] [facility] 21:31:00 01:20:00 Xi [id number] [facility] 2021-04-30 2021-04-30 Outpatient Saroj Coates HCANW REF [id number] [facility] 08:50:00 08:50:00 [id number] [facility] 2021-04-30 2021-04-30 Outpatient Saroj Carmona [facility] [id number] [facility] 02:24:00 02:24:00 [id number] [facility] [place] 2021-04-29 2021-04-29 Telephone [facility] 1.2.840.114 [id number] 00:00:00 00:00:00 Galvan A MULTISPEC 350.1.13.10 IALTY 4.2.7.2.686 [place] [id number] AND KEVIN [facility] 2021-02-08 2021-02-08 [facility] [id number] [facility] 16:30:00 16:30:00 Beth [id number] [facility] 2021-01-30 2021-01-31 Emergency Bull, Yuko S TRAUMA 1.2.84 0.114 [id number] 19:24:00 00:56:00 Mohamud Mann [place] 350.1.13.10 4.2.7.2.686 [id number] 2021-01-23 2021-01-23 Outpatient GCCOVIDV GCCOVIDV [id number] GCCOVID 00:00:00 00:00:00 V 2021-01-02 2021-01-02 Outpatient GCCOVIDV GCCOVIDV [id number] [facility] 00:00:00 00:00:00 V 2020-12-02 2020-12-02 Telephone [facility] 12.840.114 [id number] 00:00:00 00:00:00 Galvan A MULTISPEC 350.1.13.10 IALTY 4.2.7.2.686 [place] [id number] AND [facility] 2020-11-24 2020-11-24 Case [facility] 1.2.840.114 [id number] 00:00:00 00:00:00 Management Galvan A MULTISPEC 350.1.13.10 IAL[place] 4.2.7.2.686 [place] [id number] AND KEVIN [facility] 2020-10-20 2020-10-20 Outpatient Frankel, HCACL DAYS [id number] [facility] 10:15:00 10:15:00 Dhruvil [id number] [facility] 2020-09-29 2020-09-29 Outpatient Marlys, HCAMN MCTS [id number] [facility] 10:00:00 10:00:00 Dhruvil [id number] [facility] 2020-09-17 2020-09-17 Outpatient Fatoumata, HCAMN MCCL [id number] [facility] 09:00:00 09:00:00 Alfredo [id number] [facility] 2020-08-15 2020-08-15 Outpatient Balbir, HCACL LABO [id number] [facility] 14:17:00 14:17:00 Haydee [id number] [facility] 2020-02-20 2020-02-20 Outpatient Saroj Coates HCANW REF [id number] [facility] 08:16:00 08:16:00 [id number] [facility] 2018-07-12 2018-07-12 Outpatient [facility] [id number] [facility] 15:45:00 21:00:[address] Results Test Description Test Time Test Comments Results Result Comments Source HEPATITIS C ANTIBODY 2022-04-15 20:36:01 Test Item Value Reference Range Interpretation Comme nts HEPATITIS C ANTIBODY (BEAKER) (test code = 367) Reactive Nonrea ctive General Engineer ID - BSHEPATITIS B CORE ANTIBODY, [id number] 20:35:17 Test Item Value Reference Range Interpretation Comments HEPATITIS B CORE TOTAL ANTIBODY Nonreactive Nonreactive (BEAKER) (test code = 497) Small Appliance Assembly Supervisor ID - BSHEPATITIS B SURFACE [id number] 20:35:12 Test Item Value Reference Range Interpretation Comments HEPATITIS B SURFACE ANTIGEN (2) Nonreactive Nonreactive (BEAKER) (test code = 2585) Specimen is considered negative for HBsAg.HEPATITIS B SURFACE [id number] 20:35:12 Test Item Value Reference Range Interpretation Comments HEPATITIS B SURFACE ANTIBODY 37.5 mIU/mL <8.0 H (BEAKER) (test code = 647) Small Appliance Assembly Supervisor ID - BSHEPATITIS B SURFACE [id number] 23:25:59 Test Item Value Reference Range Interpretation Comments HEPATITIS B SURFACE ANTIBODY 33.0 mIU/mL <8.0 H (BEAKER) (test code = 647) Small Appliance Assembly Supervisor ID - ADMINHEPATITIS B SURFACE [id number] 23:25:57 Test Item Value Reference Range Interpretation Comments HEPATITIS B SURFACE ANTIGEN (2) Nonreactive Nonreactive (BEAKER) (test code = 2585) Specimen is considered negative for HBsAg.GLUCOSE [id number] 11:50:00 Test Item Value Reference Range Interpretation Comments GLUCOSE BEDSIDE (test 84 MG/DL 70-110 N Perfor med by certified code = GLUBED) 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 [facility] BASIC METABOLIC [id number] 09:20:00 Test Item Value Reference Range Interpretation [...] = 6.5 mg/dL 8.0-10.5 L CA) GLUCOSE [id number] 09:04:00 Test Item Value Reference Range Interpretation Comments GLUCOSE BEDSIDE (test 79 MG/DL 70-110 N Perfor med by certified code = GLUBED) 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 PROTHROMBIN [id number] 14:36:00 Test Item Value Reference Range Interpretation Comments PROTHROMBIN TIME 10.7 SECONDS 9.3-12.9 N PATIENT (test code = PTP) INTERNATIONAL NORMAL 1.0 0.8-1.2 N TARGET INR BY RATIO (test code = INDICATIO N Indication INR) INR1. Prophylax is of venous thrombos is 2.0 - 3.0 (orthoped ic surgery), Proph ylaxis of venous throm bosis (other than hig h-risk surgery), Treat ment of Deep Vein Thrombosis/Pulm onary Embolism, Preve ntion of systemic emb olism - Tissue heart va lves, Acute Myocardia l Infarction (to prevent systemic emboli sm), Valvular heart disease, Atrial Fibrillation, Bileaflet mecha nical valve in aortic position.2. Mec hanical prosthetic valv es (high risk), 2. 5 - 3.5 Presence of Lup us Anticoagulant o r Antiphospholipi d Antibodies, Pre vention of systemic emb olism - Acute Myocardia l Infarction (to prevent recurrent infar ct). THROMBOPLASTIN TIME [id number] 14:36:00 Test Item Value Reference Range Interpretation Comments THROMBOPLASTIN TIME 33.9 Seconds 25.0-39.5 N Therape utic Range: PARTIAL (test code = 50.4 - 88.3 Seconds PTT) Effective 02/19/2019 BASIC METABOLIC [id number] 14:28:00 Test Item Value Reference Range Interpretation [...] 8.3 mg/dL 8.0-10.5 N CA) CBC W/AUTO [id number] 14:05:00 Test Item Value Reference Range Interpretation [...] NO = MDIFF) - XR CHEST 2 [id number] 00:00:00 [facility] : 1970 Sex: M FAX: Nirav Cohen MD [place]: St: PRE FAX: Beth Correia MD [phone] FAX: Tamika Hadley Name: ROSY MAGUIRE [facility] Christine Caldera : 1970 Age/S: 50/M [address] [place] [address] Unit #: [id number] Loc: [place] [address] Phys: Tamika Hadley NP Acct: [id number] Dis Date: Status: PRE SDC PHONE #: [phone] Exam Date: 08/04/2021 1434 FAX #: [phone] Reason: PREOP EXAMS: CPT CODE: [id number] XR CHEST 2 V 64271 PROCEDURE INFORMATION: Exam: XR Chest Exam date and time: 08/04/2021 2:18 PM Age: 50 years old Clinical indication: Pre-operative exam; Respiratory screening exam; Additional info: Preop TECHNIQUE: Imaging protocol: XR of the chest. Views: 2 views. PA and Lateral COMPARISON: CR XR CHEST 1V 10/26/2020 3:46 PM FINDINGS: Lungs: There are normal lung volumes without consolidationor interstitial oppacities. Pleural spaces: No pleural effusion. No pneumothorax. Heart/Mediastinum:The heart size is normal. The pulmonary vasculature is normal. The mediastinal contour is normal. The trachea is midline. Vasculature: Aortic arch calcifications. Diaphragm: There is elevation of the left hemidiaphragm. Bones/joints: No acute abnormality. IMPRESSION: No acute cardiopulmonary process. at 1453 Reported and signedby: Mason Pop M.D. CC: Nirav Braun; Beth Frankel MD; Tamika Hadley NP Technologist: RT Supriya(R) Trnscrd Date/Time/By: 08/04/2021 (4295) : By: [email or web address] Orig Print D/T: S: 08/04/2021 (2948) PAGE 1 Signed Report- XR KNEE 3 V [id number] 23:20:00 [facility] : 1970 Sex: M FAX: Nirav Cohen MD [place]: St: REG FAX: Gisel Dwyer MD Name: ROSY MAGUIRE [facility] : 1970 Age/S: 50/M [address] [facility] Unit #: [id number] Loc: [address] Phys: [place] [address] Acct: [id number] Dis Date: Status: REG ER PHONE #: [phone] Exam Date: 07/09/2021 2315 FAX #: [phone] Reason: fall injury EXAMS: CPT CODE: [id number] XR KN[place] 3 [place] [address] Examination: Bilateral knees 3 views Location code: H60 Comparison: None Discussion: Clinical history is remarkable for trauma. Fell. Pain. Patient is status post below the right knee amputation. Stump is normal in appearance. No acute erosive changes are identified. Left knee prosthesis is identified andis in good position. There is no evidence for acute fracture. No lytic or blastic lesions identified. Vascular calcifications are noted. Impression: 1. Left knee prosthesis in good position. 2. No evidence for acute fracture or dislocation. 3. Status post right below knee dictation. at 2320 Reported and signed by: HELEN WALLACE CC: Nirav Braun MD; Gisel Dwyer MD Technologist: Lisa Haines [facility] Date/Time/By: 07/09/2021 (2320) : By: [email or web address] PAGE 1 Signed Report FAX: Nirav Cohen MD [place]: St: REG FAX: Gisel Dwyer MD Name: ROSY MAGUIRE [facility] : 1970 Age/S: 50/M [address] [facility] [place] Unit #: [id number] Loc: [address] Phys: [place] [address] Acct: [id number] Dis Date: Status: REG ER PHONE #: [phone] Exam Date: 07/09/2021 2315 FAX #: [phone] Reason: fall injury EXAMS: CPT CODE: [id number] XR KN[place] [address] <Continued> Orig Print D/T: S: 07/09/2021 (5317) PAGE 2 Signed Report- XR FOREARM 2 VIEWS [id number] 23:18:00 [facility] : 1970 Sex: M FAX: Nirav Cohen MD [place]: St: REG FAX: Gisel Dwyer MD Name: ROSY MAGUIRE [facility] : 1970 Age/S: 50/M [address] [facility] Unit #: [id number] Loc: E.ERS[address] [place], [place]: [place] [address] Acct: [id number] Dis Date: Status: REG ER PHONE #: [phone] Exam Date: 07/09/2021 2315 FAX #: [phone] Reason: fall injury EXAMS: CPT CODE: [id number] XR [place] [address] [place] [address] Examination: Right hand 3 views, right forearm 2 views and right humerus 2 views Location code: H60 Comparison: None Discussion: Clinical history is remarkable for patient fell. Pain. There is no evidence for acute fracture or dislocation in the hand, forearm or humerus. No lytic or blastic lesionsare noted. Postsurgical changes identified in the distal radius with surgical plate and screws traversing an old healed fracture. Osteoarthritic changes identified in the [...] MD Technologist: Lisa Haines Trnscrd Date/Time/By: 07/09/2021 (5183) : By: [email or web address] PAGE 1 Signed Report FAX: Nirav Cohen MD [place]: St: REG FAX: Gisel Dwyer MD Name: ROSY MAGUIRE [facility] : 1970 Age/S: 50/M [address] Unit #: [id number] Loc: E.ERS[address] [place], [place]: [place] [address] Acct: [id number] Dis Date: Status: REG ER PHONE #: [phone] Exam Date: 07/09/2021 2315 FAX #: [phone] Reason: fall injury EXAMS: CPT CODE: [id number] XR [place] [address] [place] [address] <Continued> Orig Print D/T: S: 07/09/2021 (6962) PAGE 2 Signed Report- XR HUMERUS 2 + V RT 2021-07-09 23:18:00 [facility] : 1970 Sex: M FAX: Nirav Cohen MD [place]: St: [facility] FAX: Gisel Dwyer MD Name: ROSY MAGUIRE [facility] : 1970 Age/S: 50/M [address] [facility] Unit #: [id number] Loc: E.ERS[address] [place], [place]: [place] [address] Acct: [id number] Dis Date: Status: REG ER PHONE #: [phone] Exam Date: 07/09/20212314 FAX #: [phone] Reason: fall injury EXAMS: CPT CODE: [id number] XR HUMERUS 2 + V [place] [address] Examination: Right hand 3 views, right forearm 2 views and right humerus 2 views Location code: H60 Co mparison: None Discussion: Clinical history is remarkable for patient fell. Pain. There is no evidence for acute fracture or dislocation in the hand, forearm or humerus. No lytic or blastic lesions arenoted. Postsurgical changes identified in the distal radius with surgical plate and screws traversing an old healed fracture. Osteoarthritic changes identified in the [...] MD; Gisel Dwyer MD Technologist: Lisa Haines Trnwird Date/Time/By: 07/09/2021 (2318) : By: [email or web address] PAGE 1 Signed Report FAX: Nirav Cohen MD [place]: St: REG FAX: Gisel Dwyer MD Name: PRESLEYROSY [facility] : 1970 Age/S: 50/M [address] [facility] [place] Unit #: [id number] Loc: [address] [place] [address] [place]: [place] [address] Acct: [id number] Dis Date: Status: REG ER PHONE #: [phone] Exam Date: 07/09/20212314 FAX #: [phone] Reason:fall injury EXAMS: CPT CODE: [id number] XR HUMERUS 2 + [place] [address] <Continued> Orig Print D/T: S: 07/09/2021 (3548) PAGE 2 Signed Report- XR HAND 3 + V [id number] 23:18:00[facility] : 1970 Sex: M FAX: Nirav Cohen MD [place]: St: REG FAX: Gisel Dwyer MD Name: ROSY MAGUIRE [facility] : 1970 Age/S: 50/M [address] [facility] Unit #: [id number] Loc: E.ERS[address] [place], [place]: [place] [address] Acct: [id number] Dis Date: Status: REG ER PHONE #: [phone] Exam Date: FAX #: [phone] Reason: fall injury EXAMS: CPT CODE: [id number] XR HAND 3 + V [place] [address] Examination: Right hand 3 views, right forearm 2 views and right humerus 2 views Location code: H60 Nicho rison: None Discussion: Clinical history is remarkable for patient fell. Pain. There is no evidence for acute fracture or dislocation in the hand, forearm or humerus. No lytic or blastic lesions are noted. Postsurgical changes identified in the distal radius with surgical plate and screws traversing an old healed fracture. 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 Vascular calcificationsidentified system with diabetic vasculitis. No erosive changes identified. Impression: 1. No evidence for acute fracture involving the right hand, right forearm or right humerus. 2. 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 Surgical plate and screws traversing a healed distalradial fracture. at 2318 Reported and signedby: HELEN WALLACE CC: Nirav Braun MD; Gisel Dwyer MD Technologist: Lisa Haines [facility] Date/Time/By: 07/09/2021 (2852) : By: [email or web address] PAGE 1 Signed Report FAX: Nirav Cohen MD [place]: St: REG FAX: Gisel Dwyer MD Name: ROSY MAGUIRE [facility] : 1970 Age/S: 50/M [address] [facility] Unit #: [id number] Loc: [address] [place]: [place] [address] Acct: [id number] Dis Date: Status: REG ER PHONE #: [phone] Exam Date: 07/09/2021 2315 FAX #: [phone] Reason: fallinjury EXAMS: CPT CODE: [id number] XR HAND 3 + V [place] [address] <Continued> Orig Print D/T: S: 07/09/2021 (8846) PAGE 2 Signed ReportSURGICAL [id number] 17:11:00 Test Item Value Reference Range Interpretation Comments SURGICAL SPECIMENS (test code = SURG) RUN DATE: 05/03/21 [facility] - LAB PAGE 1 RUN TIME: 1711 Specimen Inquiry RUN USER: INTERFACE PATIENT: ROSY MAGUIRE LOC: G U #: [id number] AGE/SX: 50/M ROOM: RE04/30/21[facility] DR: Saroj Coates MD (GEN EDITA : 66 BED: DIS: STATUS: [facility] TLOC: SPEC #: [id number] RECD: 04/30/21 STATUS: NEIL REQ #: [id number] BENEDICTO: 04/30/[address] [facility] [address]: Saroj Coates MD (GEN SURG) ENTERED: 04/30/21 SP TYPE: SURG OTHR DR: Nirav Braun MD ORDERED: [id number], PATH SPEC, H E STAIN HISTOLOGY: TISSUE ID BLK PCS GHADA LEV / PROCEDURE DISPOSITION ____ ___ ___ ___ ___ PILONIDAL CYST A 1 1 TISSUES: A. PILONIDAL CYST - Pilonidal Cyst CLINICAL HISTORY Pilonidal cyst/abscess. FINAL DIAGNOSIS PILONIDAL CYST, EXCISION: - SKIN WITH SINUS TRACT LINED BY INFLAMED GRANULATION TISSUE, CONSISTENT WITH PILONIDAL CYST CPT 52628 GROSS DESCRIPTION Received in formalin labeled with the patient's name and "pilonidal cyst/abscess" are two irregularly-shaped fragments of skin and underlying soft tissue, upon reapproximation measuring 4.0 x 3.5 x 3.0 cm. The skin (3.0 x 1.0 cm) is grossly unremarkable sandoval-coker. The cut surface shows an abscess cavity, 1.2 cm in diameter. Prune Washer sections are submitted in one cassette. CM/ph MICROSCOPIC DESCRIPTION PERFORMED - Signed SIGNATURE ON FILE Mel Cleaning MD 05/03/211710 END OF REPORT BASIC METABOLIC [id number] 07:30:00 Test Item Value Reference Range Interpretation [...] Last Name:VANNESSA BLACK READ BACK AND SHAYNA TorresLAB.IX, on 04/30/21, @ 2814.Please not e: New Reference Range Dec 2020 CALCIUM (test code = 6.6 mg/dL 8.7-10.4 L Please note: New CA) Reference Range Dec 2020 COVID Asymptomatic IH [id number] 13:16:00 Test Item Value Reference Interpretation Comments [...] were determined by [facility]. Thi s test has notbeen FDA jorge ared or approved. This test is authorized [...] setting? Unknown? NoAge at collection: YBASIC METABOLIC [id number] 12:02:00 Test Item Value Reference Range Interpretation [...] . CREATININE (test 13.80 mg/dL 0.70-1.30 Critical Nv lue code = CREAT) reported toFir st Name:SALLY Last Name:DOMI JONES READ BACK AND VERIFIEDby BEBETO ZAMBRANO, on 04/27/21, @ 1202.Please not e: New Reference Range Dec 2020 CALCIUM (test code = 6.3 mg/dL 8.7-10.4 L Please note: New CA) Reference Range Dec 2020 BASIC METABOLIC [id number] 11:50:00 Test Item Value Reference Range Interpretation [...] CA) Reference Range Dec 2020 CBC W/AUTO [id number] 11:25:00 Test Item Value Reference Range Interpretation [...] = BA#) 0.05 x10 3/uL 0.0-0.20 N [id number] 14:50:00 Test Item Value Reference Range Interpretation Comments GLUBED (test code = GLUBED) 109 MG/DL 70-105 H [id number] 08:36:00 Test Item Value Reference Range Interpretation Comments POTASSIUM (test code = K) 4.9 mmol/L 3.5-5.1 N COVID Asymptomatic IH [id number] 10:58:00 Test Item Value Reference Interpretation Comments [...] were determined by [facility]. Thi s test has notbeen FDA jorge ared or approved. This test is authorized [...] setting? Unknown? NoAge at collection: YBASIC METABOLIC [id number] 12:16:00 Test Item Value Reference Range Interpretation [...] rate . CREATININE (test 14.50 mg/dL 0.70-1.30 [facility] lue code = CREAT) reported Robb castillo Name:ILANA Mackey Name:LAZARO MATHIS READ BACK AND VERIFIEDby BEBETO ZAMBRANO, on 03/29/21, @ 1216.Please not e: New Reference Range Dec 2020 CALCIUM (test code = mg/dL 8.7-10.4 CA) BASIC METABOLIC [id number] 12:16:00 Test Item Value Reference Range Interpretation [...] . CREATININE (test 14.50 mg/dL 0.70-1.30 Critical Nv lue code = CREAT) reported Robb castillo Name:ILANA La Name:LAZARO MATHIS READ BACK AND VERIFIEDby BEBETO ZAMBRANO, on 03/29/21, @ 1216.Please not e: New Reference Range Dec 2020 CALCIUM (test code = 6.8 mg/dL 8.7-10.4 L Please note: New CA) Reference Range Dec 2020 CBC W/AUTO [id number] 11:54:00 Test Item Value Reference Range Interpretation [...] 0.0-0.20 N - CT ABD PELVIS W/O [id number] 16:57:00 [facility] 1970 Sex: MName: ROSY MAGUIRE [facility] : 1970 Age/S: 50 / M [address] [place] [address] Unit #: [id number] Loc: [place] [address] Phys: Beth Frankel MD Acct: [id number] Dis Date: Status: REG CLI PHONE #: [phone] Exam Date: 02/08/2021 1617 FAX #: [phone] Reason: T85.691A, MALFUNCTION OF PD CATHETER. EXAMS: CPT CODE: [id number] CT ABD PELVIS W/O CONT 19595 CT abdomen and pelvis without contrast dated 02/08/2021 INDICATION: T 85.691A. Malfunction of peritoneal dialysis catheter. COMPARISON: CT abdomen dated 10/24/2020 TECHNIQUE: A CT of the abdomen pelvis was performed using helical images from the thoracic outlet through the pubic symphysis with subsequent sagittal and coronal recon struction. IV CONTRAST: None. GI CONTRAST: None. CT imaging performed at this location utilizes radiation dose optimization techniques which include one or more of the followin) Automated exposure control; 2) Adjustment of mA and/or kV; 3) Use of iterative reconstructive technique. CT radiation dose DLP (mGy- cm): 505. FINDINGS: SOLID ORGANS: No acute CT abnormalities of the liver, spleen, pancreas, adrenal glands or left kidney are identified. There is no evidence of [...] appear acutely inflamed. The colon demonstrates no evid ence of diverticular disease or acute inflammatory wall thickening. PERITONEUM: A small volume of subhepatic free intraperitoneal fluid is identified. There is no evidence of free intraperitoneal air. A peritoneal dialysis catheter is identified to be coiled in the pelvis. No loculated fluid collections are identified at the dialysis catheter tip. RETROPERITONEUM: The abdominal aorta is normal in caliber. Extensive vascular calcification is noted. There is no evidence of PAGE 1 Signed Report (CONTINUED) Name: ROSY MAGUIRE [facility] : 1970 Age/S: 50 / M [address] [place] [address] Unit #: [id number] Loc: [place] [address] Phys: Beth Frankel MD Acct: [id number] Dis Date: Status: REG CLI PHONE #: [phone] Exam Date: 02/08/2021 1617 FAX #: [phone] Reason: T85.691A, MALFUNCTION OF PD CATHETER. EXAMS: CPT CODE: [id number] CT ABD PELVIS W/O CONT 45622 <Continued> retroperitoneal mass or adenopathy. PELVIS: Bladder assessment is limited by low bladder volume. No enla rged pelvic lymph nodes are identified. LOWER CHEST: The lung bases appear clear of acute disease. Left diaphragmatic elevation is noted with scarring or atelectasis in the left base. ADDITIONAL FINDINGS: None. IMPRESSION: 1. No acute CT abnormalities of the abdomen or pelvis are detected. SL: 131 at 1657 Reported and signed by: Chuck Harris M.D. 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 [facility] BASIC METABOLIC [id number] 13:08:00 Test Item Value Reference Range Interpretation [...] code = 8.4 mg/dL 8.0-10.5 N CA) [id number] 13:01:00 Test Item Value Reference Range Interpretation Comments GLUBED (test code = 66 MG/DL 70-110 L Performe d by certified GLUBED) 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 The testing is perf ormed by bladimir d in the procedures for the Meritful M2000 molecular diagnostic SARS-CoV-2 assa y in vitro. BASIC METABOLIC [id number] 12:58:00 Test Item Value Reference Range Interpretation [...] = 9.2 mg/dL 8.0-10.5 N CA) PROTHROMBIN [id number] 12:47:00 Test Item Value Reference Range Interpretation Comments PROTHROMBIN TIME 10.7 SECONDS 9.3-12.9 N PATIENT (test code = PTP) INTERNATIONAL NORMAL 1.0 0.8-1.2 N TARGET INR BY RATIO (test code = INDICATIO N Indication INR) INR1. Prophylax is of venous thrombos is 2.0 - 3.0 (orthoped ic surgery), Proph ylaxis of venous throm bosis (other than hig h-risk surgery), Treat ment of Deep Vein Thrombosis/Pulm onary Embolism, Preve ntion of systemic emb olism - Tissue heart va lves, Acute Myocardia l Infarction (to prevent systemic emboli sm), Valvular heart disease, Atrial Fibrillation, Bileaflet mecha nical valve in aortic position.2. Mec hanical prosthetic valv es (high risk), 2. 5 - 3.5 Presence of Lup us Anticoagulant o r Antiphospholipi d Antibodies, Pre vention of systemic emb olism - Acute Myocardia l Infarction (to prevent recurrent infar ct). THROMBOPLASTIN TIME [id number] 12:47:00 Test Item Value Reference Range Interpretation Comments THROMBOPLASTIN TIME 36.5 Seconds 25.0-39.5 N Therape utic Range: PARTIAL (test code = 50.4 - 88.3 Seconds PTT) Effective 02/19/2019 CBC W/AUTO [id number] 12:35:00 Test Item Value Reference Range Interpretation [...] REQUIRED (test code NO = MDIFF) - ABDOMEN [id number] 15:08:00 [facility] : 1970 Sex: M FAX: Nirav Cohen MD [place]: St: PRE FAX: Beth Correia MD [phone] Name: ROSY MAGUIRE [facility] : 1970 Age/S: 50/M [address] [facility] [place] Unit #: [id number] Loc: [place], [place] [address] Acct: [id number] Dis Date: Status: PRE CLI PHONE #: [phone] Exam Date: 11/26/2020 1459 FAX #: [phone] Reason: PERITONEAL DILAYSIS CATHETER DYSFUNCTION EXAMS: CPT CODE: [id number] XR ABDOMEN 2V 92571 Location code: H5 Abdomen Two Views Indication: [...] Alvarez M.D. PAGE 1 Signed Report (CONTINUED) FAX: Nirav Cohen MD [place]: St: PRE FAX: Beth Correia [phone] Name: ROSY MAGUIRE [facility] : 1970 Age/S: 50/M [address] Unit #: [id number] Loc: [place], [place]: [place] [address] Acct: [id number] Dis Date: Status: PRE CLI PHONE #: [phone] Exam Date: 11/26/2020 [facility]6 FAX #: [phone] Reason: PERITONEAL DILAYSIS CATHETER DYSFUNCTION EXAMS: CPT CODE: [id number] XR ABDOMEN 2V 99719 <Continued> CC: Juno Braun MD; eBth Frankel MD Technologist: SOHAIL BERNARD Trnwird Date/Time/By: 11/26/2020 (1504) :By: [email or web address] PAGE 2 Signed Report FAX: Nirav Cohen MD [place]: St: PRE FAX: Beth Correia MD [phone] Name: ROSY MAGUIRE [facility] : 1970 Age/S: 50/M [address] Unit #:[id number] Loc: [place], [place]: [place] [address] Acct: [id number] Dis Date: Status: PRE CLI PHONE #: [phone] Exam Date: 11/26/2020 1456 FAX #: [phone] Reason: PERITONEAL DILAYSIS CATHETER DYSFUNCTION EXAMS: CPT CODE: [id number] XR ABDOMEN 2V 41687 <Continued> Orig Print D/T: S: 11/26/2020 (7496) PAGE 3 Signed Report- XR ABDOMEN 1 [id number] 14:29:00 [facility] : 1970 Sex: M FAX: Nirav Cohen MD [place]: St: REG Name: ROSY MAGUIRE [facility] : 1970 Age/S: 50/M [address] [facility] [place] Unit #: [id number] Loc: [place], [place] Phys: EDDOC, [place] [address] Acct: [id number] Dis Date: Status: REG CLI PHONE #: [phone] Exam Date: 11/13/2020 1352 FAX #: [phone] Reason: PD CATH MALFUNCTION EXAMS: CPT CODE: [id number] XR ABDOMEN 1 V 66639 EXAM: ABDOMEN ONE VIEW INDICATION: PD CATH MALFUNCTION LOCATION: B2 COMPARISON: October 21, 2020 TECHNIQUE: AP viewof the abdomen. FINDINGS: The bowel gas pattern [...] the right lower quadrant rather than in thepelvis. There is a possible kink. at 1429 Reported and signed by: Donna Mullins M.D. CC: Nirav Braun MD Technologist: ANA BARRETO Trnscrd Date/Time/By: 11/13/2020 (2653) : By: [email or web address] PAGE 1 Signed Report FAX: Nirav Cohen MD [place]: St: REG Name: ROSY MAGUIRE [facility] : 1970 Age/S: 50/M [address] [facility] Unit #: [id number] Loc: J[place], [place] Phys: EDDOC, [place] [address] Acct: [id number] Dis Date: Status: REG CLI PHONE #: [phone] Exam Date: 11/13/2020 1352 FAX #: [phone]: PD CATH MALFUNCTION EXAMS: CPT CODE: [id number] XR ABDOMEN 1 V 44195 <Continued> Orig Print D/T: S: 11/13/2020 (6599) PAGE 2 Signed Report [id number] 08:30:00 Test Item Value Reference Range Interpretation Comments TROPONIN-I 0.030 ng/mL 0.000-0.045 N Negative: <= 0. 045 Positive: (test code = >= 0.046 Correl ation with TROPI) serial results, other cardiac markers andclin ical findings is necessary to determine the clinicalsignifi cance of this result. Results using different metho dologies should not be c omparedto one another as noah titative results may amelia y by method. BASIC METABOLIC [id number] 17:02:00 Test Item Value Reference Range Interpretation [...] code = 8.5 mg/dL 8.0-10.5 N CA) [id number] 17:02:00 Test Item Value Reference Range Interpretation Comments TROPONIN-I 0.035 ng/mL 0.000-0.045 N Negative: <= 0. 045 Positive: (test code = >= 0.046 Correl ation with TROPI) serial results, other cardiac markers andclin ical findings is necessary to determine the clinicalsignifi cance of this result. Results using different metho dologies should not be c omparedto one another as noah titative results may amelia y by method. - XR CHEST 1 [id number] 16:17:00 [facility] : 1970 Sex: M FAX: Tray Donald [phone] [place]: St: [facility] FAX: Nirav Cohen MD Name: ROSY MAGUIRE [facility] Christine Caldera : 1970 Age/S: 50/M [address] [place] [address] Unit #: [id number] Loc: G.[address] [place] [address] Phys: DOES_NOT KNOW Acct: [id number] Dis Date: Status: ADM IN PHONE #: [phone] Exam Date: 10/26/2020 161 FAX #: [phone] Reason: PAIN EXAMS: CPT CODE: [id number] XR CHEST 1 V 27432 XRCHEST 1 VIEW HISTORY: PAIN. COMPARISON: CXR 10/25/2020. FINDINGS: Expiratory portable exam. The heart and vascular markings are stable. Stable elevation of the left hemidiaphragm with stable left basilar opacity suggestive of atelectasis. Lung murray are otherwise stable. No significant skeletal abnormality. No pleural abnormality. IMPRESSION: Elevated left hemidiaphragm with stable left basilar opacity suggestive of atelectasis. at 1617 Reported and signed by: Jose R Rueda M.D. CC: Tray Linder MD; Nirav Braun Technologist: RT Peter(Toney) Trnscrd Date/Time/By: 10/26/2020 (1611) : By: [email or web address] Orig Print D/T: S: 10/26/2020 (5903) PAGE 1 Signed Report- US ABDOMEN [id number] 14:11:00 [facility]: ROSY MAGUIRE : 1970 Sex: M Name: ROSY MAGUIRE : 1970 Age/S: 50 / M [address] [place] [address] Unit #: [id number] Loc: [place] [address] Phys: Harpal Zamarripa MD Acct: [id number] Dis Date: Status: ADM IN PHONE #: [phone] Exam Date: 10/26/2020 1157 FAX #: [phone] Reason: POSSIBLE PERTITONEAL FLUID INFECTION, RULE OUT. EXAMS: CPT CODE: [id number] ABDOMEN LTD 97838 CLINICAL HISTORY: Possible peritoneal fluid infection,. Do time ultrasound examination of all 4 quadrants of the abdomen and pelvis was performed. There is no evidence of free fluid in the peritoneal cavity on provided images. IMPRESSION: No evidence of free peritoneal fluid. Electronically Signed by Octavio Frankel on 2019 at 1411 Reported and signed by: Dung Frankel M.D. CC: Harpal Zamarripa MD; Tray Linder MD; Nirav Braun Technologist: Shira Fraire RDMS(AB) Trnscb Date/Time: 10/26/2020 (1410)tSHANE Orig Print D/T: S: 10/26/2020 (1414) Probe: PAGE 1 Signed ReportPROTHROMBIN [id number] 13:56:00 Test Item Value Reference Range Interpretation Comments PROTHROMBIN TIME 11.8 SECONDS 9.3-12.9 N PATIENT (test code = PTP) INTERNATIONAL NORMAL 1.1 0.8-1.2 N TARGET INR BY RATIO (test code = INDICATIO N Indication INR) INR1. Prophylax is of venous thrombos is 2.0 - 3.0 (orthoped ic surgery), Proph ylaxis of venous throm bosis (other than hig h-risk surgery), Treat ment of Deep Vein Thrombosis/Pulm onary Embolism, Preve ntion of systemic emb olism - Tissue heart va lves, Acute Myocardia l Infarction (to prevent systemic emboli sm), Valvular heart disease, Atrial Fibrillation, Bileaflet mecha nical valve in aortic position.2. Mec hanical prosthetic valv es (high risk), 2. 5 - 3.5 Presence of Lup us Anticoagulant o r Antiphospholipi d Antibodies, Pre vention of systemic emb olism - Acute Myocardia l Infarction (to prevent recurrent infar ct). THROMBOPLASTIN TIME [id number] 13:56:00 Test Item Value Reference Range Interpretation Comments THROMBOPLASTIN TIME PARTIAL (test Seconds 25.0-39.5 code = PTT) PROTHROMBIN [id number] 13:56:00 Test Item Value Reference Range Interpretation Comments PROTHROMBIN TIME 11.8 SECONDS 9.3-12.9 N PATIENT (test code = PTP) INTERNATIONAL NORMAL 1.1 0.8-1.2 N TARGET INR BY RATIO (test code = INDICATIO N Indication INR) INR1. Prophylax is of venous thrombos is 2.0 - 3.0 (orthoped ic surgery), Proph ylaxis of venous throm bosis (other than hig h-risk surgery), Treat ment of Deep Vein Thrombosis/Pulm onary Embolism, Preve ntion of systemic emb olism - Tissue heart va lves, Acute Myocardia l Infarction (to prevent systemic emboli sm), Valvular heart disease, Atrial Fibrillation, Bileaflet mecha nical valve in aortic position.2. Mec hanical prosthetic valv es (high risk), 2. 5 - 3.5 Presence of Lup us Anticoagulant o r Antiphospholipi d Antibodies, Pre vention of systemic emb olism - Acute Myocardia l Infarction (to prevent recurrent infar ct). THROMBOPLASTIN TIME [id number] 13:56:00 Test Item Value Reference Range Interpretation Comments THROMBOPLASTIN TIME 33.8 Seconds 25.0-39.5 N Therape utic Range: PARTIAL (test code = 50.4 - 88.3 Seconds PTT) Effective 02/19/2019 BASIC METABOLIC [id number] 08:02:00 Test Item Value Reference Range Interpretation [...] 8.0-10.5 N CA) - XR CHEST 2 [id number] 17:16:00 [facility] : 1970 Sex: M FAX: Tray Donald [phone] [place]: St: ADM FAX: Nirav Cohen MD FAX: Antonino Huff MD [phone] Name: ROSY MAGUIRE [facility] : 1970 Age/S: 50/M [address] [place] [address] Unit #:[id number] Loc: G.66[address] [place] [address] Phys: Antonino Huff MD Acct: [id number] Dis Date: Status: ADM IN PHONE #: [phone] Exam Date: 10/25/2020 1627 FAX #: [phone] Reason: ? opacity EXAMS: CPT CODE: [id number] XR CHEST 2 V 78313 Chest, 2 views dated 10/25/2020. HISTORY: ? opacity Comparison is made to a prior study dated 10/24/2020. The heart is normal in size. Atherosclerotic calcification is identified in the aortic arch. Left diaphragmatic elevation is again identified with stable c ompressive atelectasis of the left lung base. The lungs otherwise appear clear. The pulmonary vasculature appears normal in caliber. No acute pleural space abnormalities are detected. IMPRESSION: 1. Left diaphragmatic elevation with stable compressive atelectasis of the left lung base. There is no additional radiographic evidence of acute cardiopulmonary disease. SL: 131 at 1716 Reported and signed by: Chuck Harris M.D. CC: Tray Linder MD; Nirav Braun; Antonino Huff MD Technologist: RT Peter(Toney) Trnscrd Date/Time/By: 10/25/2020 (1715) : By: [email or web address] Orig Print D/T: S: 10/25/2020 (1720) PAGE 1 Signed ReportAG HEPATITIS B [id number] 16:37:00 Test Item Value Reference Range Interpretation Comments AG HEPATITIS B SURFACE NON REACTIVE INDEX NonReactive (test code = HBSAG) - XR SHOULDER 2 + V [id number] 13:12:00 [facility] : 1970 Sex: M FAX: Tray Donald [phone] [place]: St: ADM FAX: Nirav Cohen MD FAX: Antonino Huff MD [phone] Name: ROSY MAGUIRE [facility] : 1970 Age/S: 50/M [address] [place] [address] Unit #: [id number] Loc: G.[address] [place] [address] Phys: Antonino Huff MD Acct: [id number] Dis Date: Status: ADM IN PHONE #: [phone] Exam Date: 10/25/2020 1253 FAX #: [phone] Reason: Left shoulder region pain EXAMS: CPT CODE: [id number] XR SHOULDER 2 + [place] [address] PROCEDURE: Left Shoulder Radiographs. Clinical Indication: Left shoulder pain. Comparison: None. FINDINGS: The 3 views of the left shoulder show normal alignment at the glenohumeral joint. There are no fractures or dislocations. There is minimal degenerative change including marginal osteophyte formation. There is opacity at the left lung base. IMPRESSION: 1. No fractures or dislocation. 2. Minimal degenerative change. 3. Opacity at the left lung base. SL: K58-H at 1312 Reported and signed by: Clayton Vasquez M.D. CC: Tray Linder MD; Nirav Pete; Antonino Huff MD Technologist: RT Peter(R) Trnscrd Date/Time/By: 10/25/2020 (8553) : By: Ryne Orig Print D/T: S: 10/25/2020 (8925) PAGE 1 Signed ReportCOVID 19 Asymptomatic IH [id number] 01:04:00 Test Item Value Reference Range Interpretation Comments COVID 19 Asymptomatic Negative Negative A nega tive result is IH AG (test code = presumpti ve and should COVNONPUIAG) be confirmedwit h an FDA authorized mole cular assay, if franko [place] forpatient hakan [place].A positive result does not rule out co-inf [...] COMMENTS: If not done this admissionC REACTIVE [id number] 23:38:00 Test Item Value Reference Range Interpretation Comments C REACTIVE PROTEIN (test code = 19.0 mg/L <10.0 H CRP) CBC W/AUTO [id number] 22:45:00 Test Item Value Reference Range Interpretation [...] REQUIRED (test code NO = MDIFF) LACTIC [id number] 22:35:00 Test Item Value Reference Range Interpretation Comments LACTIC ACID (test code = LACT) 0.9 mmol/L 0.4-1.9 N Coronavirus 2019 nCoV [id number] 20:19:00 Test Item Value Reference Range Interpretation Comments Coronavirus 2019 Negative NEGATIVE Negative re sults should be nCoV Bedside (test treated a s presumptive and code = ifinconsistent with [id number]) clinical signs and symptoms, or ne cessaryfor patient managem ent, should be tested with an alternativemole cular assay. Negative result s do not preclude OWQB-SuA-4eoptu tion and should not be u sed as the sole basis forp atient management deci sions. Negative result s should beconsidered in the context of a patient's recent exposures,histo ry, presence of clinical sig ns and symptoms consis tentwith COVID-19. BASIC METABOLIC [id number] 18:28:00 Test Item Value Reference Range Interpretation [...] L Specimen comments: Clean CatchHEPATIC FUNCTION PANEL [id number] 18:28:00 Test Item Value Reference Range Interpretation [...] N code = ALKP) Specimen comments: Clean [id number] 18:28:00 Test Item Value Reference Range Interpretation Comments LIPASE (test code = LIP) 135 Units/L 65.0-230.0 N Specimen comments: Clean [id number] 18:28:00 Test Item Value Reference Range Interpretation Comments TROPONIN-I (test 0.02 NG/ML 0.00-0.06 N REFERENCE R UDAY TROPONIN code = TROPI) I HEALTHY KEYA VIDUALS: <0.06 ng/mL R/O ISCHEMIA: 0.07 - 0.60 ng/mL CUT-OFF R UDAY FOR AMI: 0.60 - 1.5 ng/mL Specimen comments: Clean Catch- CT ABD PELVIS W/O [id number] 18:26:00 [facility] : 1970 Sex: M FAX: Nirav Cohen MD [place]: St: REG FAX: Mallory Gan MD [phone] Name: ROSY MAGUIRE [facility] : 1970 Age/S: 50/M [address] [facility] Unit: [id number] Loc: [address] [place]: [place] [address] Acct: [id number] Dis Date: Status: REG ER PHONE #: [phone] Exam Date: 10/24/2020 1803 FAX #: [phone] Reason: abd pain, recent hernia repair and perit dialys EXAMS: CPT CODE: [id number] CT ABD PELVIS W/O CONT [address]772 CT ABDOMEN AND PELVIS W/O CONTRAST Location code: B2 CLINICAL INDICATIONS: Abdominal pain. Recent hernia repair TECHNIQUE: Volumetric [...] bowel loops appear within normal limits. Mild r etained fecal material throughout the colon. Normal appendix. [...] Signed Report (CONTINUED) FAX: Nirav Cohen MD [place]: St: REG FAX: Mallory Gan MD [phone] Name: [facility] [facility] : 1970 Age/S: 50/M [address] [facility] Unit: [id number] Loc: E.ERS2 [place], [place]: [place] [address] Acct: [id number] Dis Date:Status: REG ER PHONE #: [phone] Exam Date: 10/24/2020 1803 FAX #: [phone] Reason: abd pain, recent hernia repair and perit dialys EXAMS: CPT CODE: [id number] CT ABD PELVIS W/O CONT 27244 <Continued> 2. Peritoneal dialysis catheter is in good position. Atrophic kidneys. 3. Mildly elevated left hemidiaphragm and bibasilar atelectasis. at 1826 Reported and signed by: Francisco Pack M.D. CC: Nirav Braun MD; Mallory Gan MD Technologist: JANIE MC; GRISELDA CHACON Trnscrd Dt/Tm: 10/24/2020 (1825) t.[email or web address].[email or web address] Orig Print D/T:S: 10/24/2020 (9 PAGE 2 Signed ReportBASIC METABOLIC [id number] 18:19:00 Test Item Value Reference Range Interpretation [...] 8.0-10.5 Specimen comments: Clean CatchHEPATIC FUNCTION PANEL [id number] 18:19:00 Test Item Value Reference Range Interpretation [...] 50.0-136.0 code = ALKP) Specimen comments: Clean [id number] 18:19:00 Test Item Value Reference Range Interpretation Comments LIPASE (test code = LIP) Units/L 65.0-230.0 Specimen comments: Clean [id number] 18:19:00 Test Item Value Reference Range Interpretation Comments TROPONIN-I (test code = TROPI) NG/ML 0.00-0.06 Specimen comments: Clean Catch- XR CHEST 1 [id number] 18:14:00 [facility] : 1970 Sex: M FAX: Nirav Cohen MD [place]: St: [facility] FAX: Mallory Gan MD [phone] Name: ROSY MAGUIRE [facility] : 1970 Age/S: 50/M [address] [facility] Unit #: [id number] Loc: [address] [place]: [place] [address] Acct: [id number] Dis Date: Status: REG ER PHONE #: [phone] Exam Date: 10/24/2020 181 FAX #: [phone] Reason: Abdominal Pain EXAMS: CPT CODE: [id number] XR CHEST 1 V 58165 Site ID: [id number] HISTORY: Abdominal pain, bleeding at peritoneal dialysis catheter site COMPARISON: 3 days ago FINDINGS: No acute pulmonary infiltrate. Stable elevated left hemidiaphragm and leftbasilar atelectasis. The heart and pulmonary vasculature is normal. Osseous structures are unremarkable. IMPRESSION: Negative chest X- ray. at 1814 Reported and signed by: Addison Arboleda M.D. CC: Nirav Braun MD; Mallory Gan MD Technologist: ARELY GONZALEZ Trnscrd Date/Time/By: 10/24/2020 (1813) : By: [email or web address] PAGE 1 Signed Report FAX: Nirav Cohen MD [place]: St: REG FAX: Mallory Gan MD [phone] Name: ROSY MAGUIRE [facility] : 1970 Age/S: 50/M [address] [facility] Unit #: [id number] Loc: [address] [place]: [place] [address] Acct: [id number] Dis Date: Status: REG ER PHONE #: [phone] Exam Date: 10/24/20201810 FAX #: [phone] Reason: Abdominal Pain EXAMS: CPT CODE: [id number] XR CHEST 1 V 26952 <Continued> Orig Print D/T: S: 10/24/2020 (1816) PAGE 2 Signed ReportPROTHROMBIN [id number] 18:10:00 Test Item Value Reference Range Interpretation Comments PROTHROMBIN TIME 11.4 SECONDS 9.9-12.8 N PATIENT (test code = PTP) INTERNATIONAL NORMAL 1.0 0.89-1.14 N THE INR IS TO BE USED RATIO (test code = ONLY FOR MONITORING INR) ORAL ANTICOAGULANTTH ERAPY. THE FOLLOWING A RE SUGGESTED RANGE S FROM [facility] LEGE OF CHEST PHYSICIANS:[place]A CATION INR VALUEPROPHY LAXIS OF VENOUS THROM BOSIS (ORTHOPEDIC EDITA ASHLEY) 2.0 - 3.0PROPHY LAXIS OF VENOUS THROM BOSIS (OTHER THAN HIG H-RISK SURGERY) 2.0 - 3.0TREATMENT OF DEEP VEIN THROMBOSIS OR PULMONARY EMBOL ISM 2.0 - 3.0PREVENTION OF SYSTEMIC EMBOLI SM TISSUE HEART VA LVES 2.0 - 3.0 ACUTE MYOCARDIAL INFA RCTION (TO PREVENT SYS TEMIC EMBOLISM) 2.0 - 3.0 ACUTE MYOCARDIA L INFARCTION (TO PREVENT RECURRENT INFAR CT) 2.5 - 3.0 VALVULAR HEART DISEASE 2.0 - 3 .0 ATRIAL FIBRILAT ION 2.0 - 3.0BILEAFLET MECHANICAL VALV E IN AORTIC POSITION 2.0 - 3.0MECHANICAL PROSTHETIC VALV ES (HIGH RISK) 2.5 - 3.5PRESENCE OF LUPUS ANTICOAGULANT O R ANTIPHOSPHOLIPI D ANTIBODIES 2.5 - 3.5 Specimen comments: Clean CatchIs patient on anticoagulants? 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 [facility] CBC W/AUTO [id number] 08:29:00 Test Item Value Reference Range Interpretation [...] (test code NO = MDIFF) BASIC METABOLIC [id number] 08:17:00 Test Item Value Reference Range Interpretation [...] code = 8.5 mg/dL 8.0-10.5 N CA) [id number] 08:04:00 Test Item Value Reference Range Interpretation Comments GLUBED (test code = 94 MG/DL 70-110 N Performe d by certified GLUBED) 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 [facility] - XR T-SPINE [id number] 18:08:00 [facility] : 1970 Sex: M FAX: Mery Crane MD [phone] [place]: St: [facility] FAX: Seymour Garner [phone] FAX: Nirav Cohen MD FAX: Beth Correia MD [phone] Name: ROSY MAGUIRE [facility] : 1970 Age/S: 50/M [address] [place] [address] Bl Unit #: [id number] Loc: G.C138 [place] [address] Phys: Miki Osman PA-C Acct: [id number] Dis Date: Status: ADM IN PHONE #: [phone] Exam Date: 10/21/2020 174 FAX #: [phone] Reason: point tenderness around T7-T8 after fall-back h EXAMS: CPT CODE: [id number] XR T-SPINE 3V 59406 Procedure: Thoracic Spine Radiographs. Clinical Indication: Mid thoracic [...] osteophyte formation. 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 [facility] - XR ABDOMEN 1V (KUB)2020-10-21 17:46:00 [facility] : 1970 Sex: M FAX: Estiven Call MD [phone] [place]: St: ADM FAX: Mery Crane MD [phone] FAX: Nirav Cohen MD FAX: Beth Correia MD [phone] Name: ROSY MAGUIRE [facility] : 1970 Age/S: 50/M [address] [place] [address] Unit #: [id number] Loc: [place] [address] Phys: Estiven Call MD Acct: [id number] Dis Date: Status: ADM IN PHONE #: [phone] Exam Date: 10/21/20201740 FAX #: [phone] Reason: n/v, abdominal pain EXAMS: CPT CODE: [id number] XR ABDOMEN 1V (KUB) 66986 Procedure: Abdominal Radiograph. Clinical Indication: Nausea and vomiting, abdominal pain, malfunction of peritoneal dialysis catheter. Comparison: Abdominal radiograph 09/07/2017. FINDINGS: A supine radiograph of the abdomen in 2 views demonstrates a nonspecific bowel gas pattern without definitive bowel obstruction orfree intraperitoneal air. There is a peritoneal dialysis catheter coiled in the central pelvis. There are calcifications in the deep central pelvis likely representing calcification of the vas deferens, suggesting diabetes. There are additional vascular calcifications. IMPRESSION: 1. Nonspecific bowelgas pattern without definitive bowel obstruction. 2. Peritoneal dialysis catheter coiled in the pelvis. SL: OCO-H at 1746 Reported and signed by: Clayton Vasquez M.D. 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 [facility] - XR CHEST 1 [id number] 17:06:00 [facility] : 1970 Sex: M FAX: Estiven Call MD [phone] [place]: St: [facility] FAX: Mery Crane MD [phone] FAX: Nirav Cohen MD FAX: Beth Correia MD [phone] Name: PRESLEYROSY [facility] [place] : 1970 Age/S: 50/M [address] [place] [address] Unit #: [id number] Loc: G.C138 [place] [address] Phys: Estiven Call MD Acct: [id number] Dis Date: Status: ADM IN PHONE #: [phone] Exam Date: 10/21/2020 1659 FAX #: [phone] Reason: recent fall left sided rib hurting EXAMS: CPT CODE: [id number] XR CHEST 1 V 37979 Chest, single view dated 10/21/2020. HISTORY: Left chest wall pain status post recent fall. Comparison is made to a prior study dated 10/16/2020. The heart is normal in size. The cardiomediastinal shadow is stable. Atelectasis or infiltrate is identified in both lung bases. The upper lung murray appear clear. The pulmonary vasculature is normal in caliber. No acute pleural space abnormalities are identified. Left diaphragmatic elevation is again noted. No gross abnormalities of the bony thorax are detected. IMPRESSION: 1. Bilateral basilar atelectasis or pneumonia, new since 10/16/2020. 2. Left diaphragmaticelevation. SL: 131 at 1706 Reported and signed by: Chuck Harris M.D. 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 BASIC METABOLIC [id number] 08:02:00 Test Item Value Reference Range Interpretation [...] code = 8.2 mg/dL 8.0-10.5 N CA) [id number] 08:02:00 Test Item Value Reference Range Interpretation Comments PHOSPHOROUS (test code = PHOS) 8.0 MG/DL 2.5-4.9 H [id number] 08:02:00 Test Item Value Reference Range Interpretation Comments MAGNESIUM (test code = MAG) 2.26 mg/dL 1.80-2.40 N CBC W/AUTO [id number] 06:59:00 Test Item Value Reference Range Interpretation [...] DIFF REQUIRED (test code NO = MDIFF) [id number] 21:48:00 Test Item Value Reference Range Interpretation Comments GLUBED (test code = 140 MG/DL 70-110 H Performe d by certified GLUBED) 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 [facility] TSH REFLEX TO [id number] 17:15:00 Test Item Value Reference Range Interpretation Comments TSH REFLEX TO FT4 (test code = 1.59 IU/mL 0.42-5.47 N TSHREFLEX) HGBA1C%2020-10-20 17:06:00 Test Item Value Reference Range Interpretation Comments HGBA1C% (test code = HGBA1C%) 5.2 %A1C 4.8-6.0 N [id number] 16:37:00 Test Item Value Reference Range Interpretation Comments GLUBED (test code = 144 MG/DL 70-110 H Performe d by certified GLUBED) 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 [facility] [id number] 11:31:00 Test Item Value Reference Range Interpretation Comments GLUBED (test code = 128 MG/DL 70-110 H Performe d by certified GLUBED) 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 [facility] CBC W/AUTO [id number] 08:46:00 Test Item Value Reference Range Interpretation [...] (test code NO = MDIFF) BASIC METABOLIC [id number] 08:07:00 Test Item Value Reference Range Interpretation [...] code = 8.7 mg/dL 8.0-10.5 N CA) [id number] 07:46:00 Test Item Value Reference Range Interpretation Comments GLUBED (test code = 114 MG/DL 70-110 H Performe d by certified GLUBED) 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 The testing is perf ormed by bladimir armstrong in the procedures for the Demeure000 molecular diagnostic SARS-CoV-2 assa y in vitro. COMMENTS: N- XR CHEST 2 [id number] 10:50:00 [facility] ROSY : 1970 Sex: M FAX: Nirav Cohen MD [place]: St: PRE FAX: Beth Correia MD [phone] FAX: Tamika Hadley Name: ROSY MAGUIRE [facility] : 1970 Age/S: 50/M [address] [place] [address] Unit #: [id number] Loc:[place] [address] Phys: Tamika Hadley NP Acct: [id number] Dis Date: Status: PRE SDC PHONE #: [phone] Exam Date: 10/16/2020924 FAX #: [phone] Reason: PRE-OP HERNIA REPAIR EXAMS: CPT CODE: [id number] XR CHEST 2 V 85021 EXAM: CHEST TWO VIEW HISTORY: 50-year-old male for preoperative evaluation, hernia repair COMPARISON: Chest radiograph 09/07/2017 FINDINGS: Elevated left hemidiaphragm. The lungs are clear. The cardiomediastinal silhouette is normal for projection. Aortic locations. No acute osseous abnormality. Cervical spinal hardware partially visualized. IMPRESSION: 1. No acute cardiopulmonary abnormality. SL: [id number] at 1050 Reported and signed by: Lucia Montano M.D. CC: Nirav Braun; Beth Frankel MD; Tamika Hadley NP Technologist: RT Jarrod(R) Trnscrd Date/Time/By: 10/16/2020 (4978) : By: [email or web address] Orig Print D/T: S: 10/16/2020 (6694) PAGE 1 Signed ReportCBC W/AUTO [id number] 10:39:00 Test Item Value Reference Range Interpretation [...] REQUIRED (test code NO = MDIFF) PLT [id number] 10:39:00 Test Item Value Reference Range Interpretation Comments PLATELET ESTIMATE (test code 100-125 THOUSAND ADEQUATE = PLTEST) PLATELET MORPHOLOGY (test LARGE PLATELETS code = PLTMORPH) BASIC METABOLIC [id number] 10:19:00 Test Item Value Reference Range Interpretation [...] 8.4 mg/dL 8.0-10.5 N CA) CBC W/AUTO [id number] 09:57:00 Test Item Value Reference Range Interpretation [...] REQUIRED (test code NO = MDIFF) PLT [id number] 09:57:00 Test Item Value Reference Range Interpretation Comments PLATELET ESTIMATE (test code = THOUSAND ADEQUATE PLTEST) CBC W/AUTO [id number] 09:56:00 Test Item Value Reference Range Interpretation [...] REQUIRED (test code NO = MDIFF) PLT [id number] 09:56:00 Test Item Value Reference Range Interpretation Comments PLATELET ESTIMATE (test code = THOUSAND ADEQUATE PLTEST) CBC W/AUTO [id number] 09:49:00 Test Item Value Reference Range Interpretation [...] REQUIRED (test code = MDIFF) BASIC METABOLIC [id number] 12:52:00 Test Item Value Reference Range Interpretation [...] 8.3 mg/dl 8.0-10.5 N CA) CBC W/AUTO [id number] 12:42:00 Test Item Value Reference Range Interpretation [...] N NRBC#) - CT ABD PELVIS W/O [id number] 08:55:00 [facility] : 1970 Sex: M FAX: Nirav Cohen MD [place]: St: [facility] FAX: Beth Correia MD [phone] Name: ROSY MAGUIRE [facility] : 1970 Age/S: 50/M [address] [facility] Unit: [id number] [place]: [place] [address] Acct: [id number] Dis Date: Status: REG CLI PHONE #: [phone] Exam Date: 09/29/2020 0834 FAX #: [phone] Reason: RIGHT GROIN PAIN EXAMS: CPT CODE: [id number] CT ABD PELVIS W/O CONT 97677 HISTORY: Right inguinal pain, right lower quadrant pain. CT abdomen and pelvis,unenhanced. Reformatted sagittal and coronal images. COMPARISON: September 07, 2017 Automated exposure control, iterative reconstruction technique, and/or adjustment of mA and/or kV according to patient's size was utilized for optimum radiation dose reduction. No intravenous contrast is requested for the exam. Significant pathology may be obscured. Water-soluble oral contrast was given. The study includes some of the lung bases, which appear to be clear. No pericardial or pleural fluid can be found. Elevated left diaphragm. Homogeneous density seen for the liver and spleen. Prominent vascular calcifications have developed in the splenic artery. The right kidney is surgically absent. Left kidney with chronic stranding or renal disease but no stones or hydronephrosis. Normal aortic diameter. Gallblad jane with normal position. Bowel loops are free of obstruction. Normal stool content. Appendix is normal with its [...] testicle. A decubitus ulcer seen at the sacrumin the midline. Superficial soft tissue thickening seen with air bubbles and a tract extending to the posterior margin of the sacrum. The bony margins of the cortex appear to be intact. Spinal alignment well maintained. Mild haziness in the fat diffusely may support mild anasarca. PAGE 1 Signed Report (CONTINUED) FAX: Nirav Cohen MD [place]: St: [facility] FAX: Beth Correia MD [phone] ---- Name: ROSY MAGUIRE [facility] : 1970 Age/S: 50/M [address] [facility] Unit: [id number] Loc: E.CTS [place], [place]: [place] [address] Acct: [id number] Dis Date: Status: REG CLI PHONE #: [phone] Exam Date: 09/29/2020 0834 FAX #: [phone] Reason: RIGHT GROIN PAIN EXAMS: CPT CODE: [id number] CT ABD PELVIS W/O CONT 64340 <Continued> IMPRESSION: Limited Study. Normal appendix seen with normal bowel loop pattern. Small right inguinal hernia a tiny amount of fluid in the right inguinal canal , of unclear significance. No focal inflammatory changes are present nor bowel loops trapped. Sacral decubitus with cortical margins of the affected sacrum and coccyx appearing to be intact. Anasarca. Right nephrectomy.. Location: U19 Electronically Signed by Nathanael Pa M.D on 09/29/2020 at 0855 Reported and signed by: Nathanael Pa M.D CC: Nirav Braun MD; Addison Frankel MD Technologist: LISA WATKINS Trnscrd Dt/Tm: 09/29/2020 (0855) t.[email or web address].[email or web address] Orig Print D/T: S:09/29/2020 (0858 PAGE 2 Signed ReportBASIC METABOLIC PANEL 2020-09-17 [...] CA) 8.1 mg/dl 8.0-10.5 N CBC W/AUTO [id number] 06:29:00 Test Item Value Reference Range Interpretation [...] 0.00-0.01 N NRBC#) COVID 19 Asymptomatic IH [id number] 05:55:00 Test Item Value Reference Range Interpretation Comments COVID 19 NEGATIVE NEGATIVE Negative result s should be Asymptomatic IH AG treated a s presumptive and (test code = ifinconsistent with COVNONPUIAG) clinical signs and symptoms, or ne cessaryfor patient managem ent, should be tested with an alternativemole cular assay. Negative results do not preclude BDLX-UnK-5nhgpw tion and should not be u sed as the sole basis forp atient management deci sions. Negative result s should beconsidered in the context of a pa rc's recent exposure s,history, presence of cli nical signs and symptoms consistentwith COVID-19. LACTIC [id number] 09:23:00 Test Item Value Reference Range Interpretation Comments LACTIC ACID (test code = LACT) 1.0 MMOL/L 0.4-2.0 N BASIC METABOLIC [id number] 09:11:00 Test Item Value Reference Range Interpretation [...] 8.2 mg/dl 8.0-10.5 N CA) CBC W/AUTO [id number] 09:06:00 Test Item Value Reference Range Interpretation [...] 0.00 X10 3uL 0.00-0.01 N NRBC#) SURGICAL [id number] 14:26:00 RUN DATE: 02/21/20 [facility] - LAB PAGE 1 RUN TIME: 1427 Specimen Inquiry RUN USER: INTERFACE -------- ----PATIENT: ROSY MAGUIRE LOC: [place] U #: [id number] AGE/SX: 49/M ROOM: RE02/20/20[facility] DR: Saroj Coates MD : [birth year] BED: DIS: STATUS: DEP [facility] TLOC: SPEC #: [id number] RECD: 02/20/20 STATUS: NEIL CRENSHAW #: [id number] BENEDICTO: 02/20/[address] [facility] [address]: Saroj Coates MD ENTERED: 02/20/20 SP TYPE: SURG OTHR DR: ORDERED: PATHGM3, PATH SPEC, H E STAIN HISTOLOGY: TISSUE ID BLK PCS GHADA LEV / PROCEDURE DISPOS ITION ____ ___ ___ ___ ___ PILONIDAL CYST A 5 1 TISSUES: A. PILONIDAL CYST - Pilonidal Abscess CLINICAL HISTORY Pilonidal Abscess COMMENT Sections ofthe specimen demonstrate a benign cyst lined with squamous epithelium with associated acute and chronic inflammation and dermal fibrosis. Areas suggestive of abscess formation are noted and are compatible with cyst rupture. No definitive hair shafts are identified, but the findings could be compatiblewith pilonidal cyst in the proper clinical setting. The differential diagnosis could include a ruptured epidermal inclusion cyst. No atypia or malignancy is identified. FINAL DIAGNOSIS A-SKIN AND SUBCUTANEOUS TISSUE, PILONIDAL ABSCESS, EXCISION: - Benign squamous cyst with associated acute and chronicinflammation, dermal fibrosis and findings suggestive of rupture [...] 1 x 0.5 cm. A separate fibrous areawith small foci of hemorrhage is noted in the deep dermis/subcutaneous tissue which measures approximately 1 x 1 x 1 cm. Prune Washer sections are submitted as follows: SECTION CODE: CONTINUED ON NEXT PAGE RUN DATE: 02/21/20 [facility] - LAB PAGE 2 RUN TIME: 1426 Specimen Inquiry RUN USER: INTERFACE SPEC#: [id number] PATIENT: ROSY MAGUIRE #[id number] (Continued) GROSS DESCRIPTION (Continued) A1-A2: First described small area A3-A5: Larger second described nodule RAB/th MICROSCOPIC DESCRIPTION Microscopic performed. Signed SIGNATURE ON FILE Rosemarie Ryder MD 02/21/20 1426 END OF REPORT GLUBED 2020-02-20 13:17:00 Test Item Value Reference Range Interpretation Comments GLUBED (test code = GLUBED) 101 MG/DL 70-105 N BASIC METABOLIC [id number] 06:39:00 Test Item Value Reference Range Interpretation [...] 8.8 mg/dL 8.8-10.2 N CA) CBC W/AUTO [id number] 06:35:00 Test Item Value Reference Range Interpretation [...] BA#) 0.05 x10 3/uL 0.0-0.20 N SPECIAL [id number] 17:02:005.8[facility] 2018-07-12 17:02:005.[facility]annSPECIAL SKNMHBDKT4541-11-03 17:02:005.8 [facility] [id number] 17:02:005.[facility]ust[facility] [id number] 16:58:00 Test Item Value Reference Range Interpretation Comments PTT (test code = PTT) 34.8 s 22.9-35.8 [facility]roeDiobrgqUDPELEHVJJ5102-89-80 16:58:00 Test Item Value Reference Range Interpretation Comments INR (test code = INR) 0.94 1 0.85-1.17 [facility] [id number] 16:58:00 Test Item Value Reference Range Interpretation Comments PT (test code = PT) 12.6 s 12.0-14.7 [facility] EgnnaliTIZJXZJCZS3584-97-60 16:58:42914Adejqqzl HermannHEMATOLOGY 2018-07-12 16:58:007.6[facility] TwdmconDIGIFTBYZV0427-92-68 16:58:0037.0[facility] EffyfikVYWHHJSFKD1325-23-52 16:58:00 Test Item Value Reference Range Interpretation Comments MCH (test code = MCH) 27.0 pg 27.0-31.0 [facility] ShxpzduHRQFEWNXQU3374-57-34 16:58:0032.7[facility] HermannHEMATOLOGY 2018-07-12 16:58:0015.7[facility]orial YxwaedtIBSRPLJNTO9292-04-96 16:58:0082.5[facility] LhhhekjNVEMSGFKTU2903-98-64 16:58:0012.1[facility]orial WdjgnzxBRVVIZJFGK5311-96-88 16:58:004.49[facility] GaresinYQZGSYYHPV3948-99-49 16:58:0010.7[facility] Custar IBLXOTIIYI6065-57-48 16:58:000.6[facility] JqrtwdjVIPMVZZSNT0012-28-62 16:58:004.6 [facility] QtpadiqQITDIDTKDB0930-17-64 16:58:007.0[facility] HermannHEMATOLOGY 2018-07-12 16:58:002.4[facility] FnuocrwMYTUXIXBKT1709-99-83 16:58:000.8[facility]orial PqvvsvqZAAIBNBLDF8054-27-46 16:58:0022.5[facility] GeguxhiROLPSCAKOH2309-98-39 16:58:007.2[facility] SeceletSSSCUOEQEV8969-56-61 16:58:000.5[facility] Rob IUPZJZIDBC7777-27-62 16:58:000.1[facility] FfeuoobHYKLSWZNVJ0945-70-97 16:58:00 65.1[facility]annBLOOD BANK [id number] 16:58:00Negative (07/12/18 11:58 AM)[facility] CcbszozMJFUENYQCRDM1074-98-71 16:58:0010.2[facility] Rob NRMIQPGGVPOB1510-02-00 16:58:0019[facility] GjoikwrNGTWBHWOLUZA2130-06-99 16:58:00 8.0Memorial MjpikqvNNPWJQBQQTTG2657-13-45 16:58:0026[facility] HermannELECTROLYTES 2018-07-12 16:58:003.53[facility]orial MlclefhBCJWBEYQMOWG7825-47-30 16:58:0033[facility] CemavdhUWUMHIQQPOUN4980-44-70 16:58:0086[facility] EicchwgGTKULCWWETQJ7475-76-52 16:58:51053Njzfsejx CrpzoscOYLXIMCSXOPE0294-32-66 16:58:67629Rzmpdjny Custar ZXQVKSUOVAJE3444-93-22 16:58:005.2[facility] DotesriRGKJPAQTPZ2705-69-75 16:58:00 Test Item Value Reference Range Interpretation Comments PTT (test code = PTT) 34.8 s 22.9-35.8 [facility] XfwrvdxRKDQAYXDLZ5437-84-28 16:58:00 Test Item Value Reference Range Interpretation Comments INR (test code = INR) 0.94 1 0.85-1.17 [facility] YgrefpzNGBATXLUTM5523-42-48 16:58:00 Test Item Value Reference Range Interpretation Comments PT (test code = PT) 12.6 s 12.0-14.7 [facility] NnxuelvDABNRESXQX8605-70-28 16:58:83658Faxywlar HermannHEMATOLOGY 2018-07-12 16:58:007.6[facility] PvwicgrAAVYZRZBMZ6302-75-16 16:58:0037.0[facility] RibizgaSDKGVNAHKL4735-05-34 16:58:00 Test Item Value Reference Range Interpretation Comments MCH (test code = MCH) 27.0 pg 27.0-31.0 [facility]HelueapQTOERGDCUN8065-89-17 16:58:0032.7[facility] HermannHEMATOLOGY 2018-07-12 16:58:0015.7[facility] MktflduPMHCYLUKSA1950-10-42 16:58:0082.5[facility] QxnwmiyGMMPFVPLGW2047-70-06 16:58:0012.1[facility] KucvgvnYOCPFVCDSU5504-80-44 16:58:004.49[facility] HslpsvpOEQGPHVKKT8415-69-23 16:58:0010.7[facility] Rob VUVHSTFMPZ0305-82-11 16:58:000.6[facility] YpvkekkJCYYDDENIC1127-15-56 16:58:004.6 [facility] BlfmtzdMWWNOMXPPV6349-59-77 16:58:007.0[facility] HermannHEMATOLOGY 2018-07-12 16:58:002.4[facility] UjjeunwKPRKLJOOKL2942-79-44 16:58:000.8[facility] OhgwmutEDKAEHJLSY9367-76-06 16:58:0022.5[facility] AczznliLYXVAKNJXX0729-07-56 16:58:007.2[facility] FasipdxRTUTADIXNZ5075-70-90 16:58:000.5[facility] Rob XSGIDRZRYZ9515-50-66 16:58:000.1[facility] FsboeckCENPWXAOIA7108-07-59 16:58:00 65.1[facility] VMBBCHQ7958-77-79 16:58:00Negative (07/12/18 11:58 AM)[facility] YzjgprjJVRCPZXSKUWF1398-06-56 16:58:0010.2[facility] Rob KXAHGSYHEVYO3151-43-62 16:58:0019[facility] UywypegBPVLZFWLKAEH3139-77-02 16:58:00 8.0[facility] MmtgvgyMWPAMJYLZLLU2517-18-76 16:58:0026[facility] HermannELECTROLYTES 2018-07-12 16:58:003.53[facility] QmhpogtIONKOLHAPSHG1745-43-21 16:58:0033[facility] HqbcfaxLTQAPRVJIUDB6962-61-07 16:58:0086[facility] BlqzzxmMKIFKOQFXLTV3392-63-32 16:58:37860Uxvbegwd MtmcvyuDUNDBHFLNARZ6396-19-54 16:58:74495Myyseanl Rob SPEOKEBZFGYP1515-53-03 16:58:005.2[facility] OrtkciuDRDOWITBRY0627-48-37 16:58:00 Test Item Value Reference Range Interpretation Comments PTT (test code = PTT) 34.8 s 22.9-35.8 [facility] AdkguynBJOHBHHYFF2671-54-45 16:58:00 Test Item Value Reference Range Interpretation Comments INR (test code = INR) 0.94 1 0.85-1.17 [facility] JyffrbfVLBCVNKKVU1423-00-31 16:58:00 Test Item Value Reference Range Interpretation Comments PT (test code = PT) 12.6 s 12.0-14.7 [facility] UkggielTXUDIEHTRV6334-77-90 16:58:12824Imdclyyk HermannHEMATOLOGY 2018-07-12 16:58:007.6[facility] CwybimpNOKNJJEKAX0284-58-05 16:58:0037.0[facility] DabxbypVULXGGVXUG4759-71-61 16:58:00 Test Item Value Reference Range Interpretation Comments MCH (test code = MCH) 27.0 pg 27.0-31.0 [facility] GrzndieQOSVTYXNFV5121-61-73 16:58:0032.7[facility] HermannHEMATOLOGY 2018-07-12 16:58:0015.7[facility] HltzyksYCEZYSBAEA8158-61-56 16:58:0082.5[facility] OgaqbaoZXHKDTFEPD6342-54-65 16:58:0012.1[facility] UrkvakoAGQITVRDMZ6253-38-02 16:58:004.49[facility] XwwessaDNIDNJRVWW2069-13-70 16:58:0010.7[facility] Custar ZWPCGFRCJT7160-37-51 16:58:000.6[facility] NrorzrbMVLXXHFLAM6374-96-87 16:58:004.6 [facility] JffesczCUQMINQGDN8614-15-92 16:58:007.0[facility] HermannHEMATOLOGY 2018-07-12 16:58:002.4[facility] PftlhglJOOODIIQJB8573-38-54 16:58:000.8[facility] SqqptuaGUAEWWRGNY5219-78-30 16:58:0022.5[facility] XbwdlfhJOHRSAYBNK6734-26-53 16:58:007.2[facility] WjhtyegZUTHRQSGDD3390-15-01 16:58:000.5[facility] Rob KXLHBBCCXK1007-19-25 16:58:000.1[facility] YltfpuoEQLZXUMRXG1591-85-36 16:58:00 65.1[facility]annBL[facility] B[facility] HAVAZAI0444-50-78 16:58:00Negative (07/12/18 11:58 AM)[facility] OjnjcktGNETVBYXEJZZ1806-05-80 16:58:0010.2[facility] Custar TKHYJEHAEEYM6498-02-81 16:58:0019[facility] MxbvccpVLFAZAVAGKKW8380-93-75 16:58:00 8.0[facility] TjqvmsuVFTNPWGWYGTT6099-77-69 16:58:0026[facility] HermannELECTROLYTES 2018-07-12 16:58:003.53[facility] IobjvyiVXLHJJOBHJEW0225-78-89 16:58:0033[facility] FwxvfoyQCBOMRGYBFRU9157-37-90 16:58:0086[facility] XgldnxvXKKNGTAWUGRY2804-43-04 16:58:48224Xyzoadgd PewvpgpAUOOWMTNXPZC4688-70-46 16:58:26229Cfvdntwa Custar PWGGSYTLGSEK6829-48-77 16:58:005.2[facility] YorljjoMEODMCMNBA8301-51-94 16:58:00 Test Item Value Reference Range Interpretation Comments PTT (test code = PTT) 34.8 s 22.9-35.8 [facility] OsdxinlZRVCNICESO5184-54-07 16:58:00 Test Item Value Reference Range Interpretation Comments INR (test code = INR) 0.94 1 0.85-1.17 [facility] QhajtgcSTUXTJEEYB3827-42-53 16:58:00 Test Item Value Reference Range Interpretation Comments PT (test code = PT) 12.6 s 12.0-14.7 [facility] AtrhyrjAFYKCIGQQL7189-78-34 16:58:79451Sfgmavdr HermannHEMATOLOGY 2018-07-12 16:58:007.6[facility] OrkleloBPDPFBFAIG8932-79-05 16:58:0037.0[facility] JwiwikgDSAHKVLRWO5251-40-28 16:58:00 Test Item Value Reference Range Interpretation Comments MCH (test code = MCH) 27.0 pg 27.0-31.0 [facility] NlvqfgtJJUQFCTHDF3873-44-55 16:58:0032.7[facility] HermannHEMATOLOGY 2018-07-12 16:58:0015.7[facility] EosqugvVHJDVOGIWD2340-62-51 16:58:0082.5[facility] JsfsmpgIWAUUKGCZA8031-52-67 16:58:0012.1[facility] ZvezeusMARZGVESWW3757-32-92 16:58:004.49[facility] GmkpufdVSYGUGXCRP8041-58-97 16:58:0010.7[facility] Rob LMBKSBDUMS7565-01-64 16:58:000.6[facility] TceaqijYPFIZRGRSI5323-48-67 16:58:004.6 [facility] GckeonsUXKWFVONJV6384-22-48 16:58:007.0[facility] HermannHEMATOLOGY 2018-07-12 16:58:002.4[facility] FcblthcBWVXCMIOBR2356-99-81 16:58:000.8[facility] AjieamqNXSLCRTLBC4378-57-91 16:58:0022.5[facility] YnyxggqKKODCWYYYM6048-26-46 16:58:007.2[facility] QntgxrfWVEDGPWMXF8000-39-60 16:58:000.5[facility] Rob AICRPKXFZB4227-85-87 16:58:000.1[facility] IiwcklmQRTJRMSRPE2963-67-29 16:58:00 65.1[facility]annBL[facility] B[facility] LHXQODQ9397-31-14 16:58:00Negative (07/12/18 11:58 AM)[facility] RtwalexZUCSLRYZGLBI0774-32-50 16:58:0010.2[facility] Rob YNXIUMTZIVKG8390-97-10 16:58:0019[facility] OiirfrpFCKGDMZRXMZQ8138-61-70 16:58:00 8.0[facility] OvmgbdmKTULUYOZWIMW6339-14-76 16:58:0026[facility] HermannELECTROLYTES 2018-07-12 16:58:003.53[facility] ZlhgqpaEGRWBLUHGYXA5538-56-59 16:58:0033[facility] QmrqjozJXXSCWTRQNDH4991-10-61 16:58:0086[facility] HbfwxxcDENJNXXBRICK0881-55-27 16:58:03795Ozbcqkle IvboigdDLWAZPKUAOXD0217-24-81 16:58:33811Xnpsofeh Custar GFPEWKFCPBEM9166-47-89 16:58:005.2[facility] Rob
[2022-06-22] MEDS ORDERED: NA CHLORIDE 0.9% 250 ML ONE (19:29)
[2022-06-22 19:37] LABS: Absolute Lymphocytes (CBC) 1.1 K/uL (0.7-4.9); Hematocrit 29.1 % (39.6-49.0); Lymphocytes % 21.1 % (15.3-44.8); MCV 86.4 fL (80-100); MPV 7.5 fL (7.6-11.3); RBC Red Blood Cell Count 3.37 M/uL (4.33-5.43)
[2022-06-22 20:00] LABS: Albumin 3.5 g/dL (3.4-5.0); Bilirubin Direct 0.1 mg/dL (0-0.2); Bilirubin Total 0.4 mg/dL (0.2-1.0); Protein, Total 7.4 g/dL (6.4-8.2)
--- NOTE | 2022-06-22 20:11 | RAD REPORT ---
EXAM DESCRIPTION: CT - Abdomen Pelvis Wo Contrast - 06/22/2022 7:49 pm CLINICAL HISTORY: left flank pain x 2 weeks COMPARISON: Abdomen Pelvis Wo Contrast dated 09/29/2018 TECHNIQUE: Axial [address] imaging of the abdomen and pelvis was performed without IV contrast. No IV contrast was given because of allergy, abnormal renal function, patient refusal or physician re quest. Sagittal and coronal reconstruction images were generated and reviewed. No oral contrast administered. All CT scans are performed using dose optimization technique as appropriate and may include automated exposure control or mA/KV adjustment according to patient size. FINDINGS: No suspicious findings in the lung bases. Patient has significant left hemidiaphragm eleva tion. Chronic atelectasis abuts the elevated left hemidiaphragm. No cardiomegaly or pericardial effus ion. The liver, spleen and pancreas show no suspicious findings on non-contrast imaging. Gallbladder and b iliary tree are also without suspicious finding. Gallstones can be occult on CT imaging. No hydronephrosis or suspicious renal mass. No significant adrenal finding. Isodense renal masses an d pyelonephritis cannot be excluded in the absence of IV contrast. Urinary bladder is tightly contrac darrion limiting assessment. No bladder calculi seen. Numerous phleboliths are present. No dilated bowel loops or bowel wall thickening. Hyperdense material within the bowel lumen is believ ed to be a bismuth medication or similar hyperdense material. Food fills the stomach. No free air, fr ee fluid or inflammatory stranding. No hernia, mass or bulky lymphadenopathy. No suspicious bony findings. Degenerative changes are present. Very dense arterial tree calcifications are present. IMPRESSION: Non-contrast enhanced CT abdomen and pelvis imaging show no acute or emergent finding. Full assessment is limited is the absence of IV contrast.
[2022-06-22 20:38] LABS: Potassium 3.4 mmol/L (3.5-5.1)
[2022-06-22] MEDS ORDERED: FENTANYL CITR 100 MCG/2 ML ONE (20:48)
--- NOTE | 2022-06-22 21:19 | ER ---
Nurse's Notes [facility] Name: Vladimir Maguire Age: 51 yrs Sex: Male : 1970 Arrival Date: 06/22/2022 Time: 18:36 Bed 4 Private MD: Diagnosis: Low back pain;End stage renal disease Presentation: 06/22 18:50 Chief complaint: Patient states: Pt has 1 kidney, went to dialysis today (3.5L removed) jh5 and having severe left flank pain. Coronavirus screen: Vaccine status: Patient reports receiving the 2nd dose of the covid vaccine. Client denies travel out of the [place] in the last 14 days. Ebola Screen: Patient negative for fever greater than or equal to 101.5 degrees Fahrenheit, and additional compatible Ebola Virus Disease symptoms Patient denies exposure to infectious person. Patient denies travel to an Ebola-affected area in the 21 days before illness onset. Initial Sepsis Screen: Does the patient meet any 2 criteria? No. Patient's initial sepsis screen is negative. Does the patient have a suspected source of infection? No. Patient's initial sepsis screen is negative. Risk Assessment: Do you want to hurt yourself or someone else? Patient reports no desire to harm self or others. 18:50 Method Of Arrival: Ambulatory [facility] 18:50 Acuity: GINA 3 jh5 19:17 Onset of symptoms was June 18, 2022. aa9 Triage Assessment: 18:53 General: Appears uncomfortable, obese, Behavior is cooperative, agitated. Pain: 5 Complains of pain in back. Musculoskeletal: Circulation, motion, and sensation intact. Historical: - Allergies: 18:53 Ativan; jh5 - PMHx: 18:53 Diabetes - NIDDM; Hypertension; neuropathy; Renal Disease; Rheumatoid Arthritis; jh5 - PSHx: 18:53 dialysis site to left arm; RIGHT BKA; jh5 - Immunization history:: Adult Immunizations up to date. - Social history:: Smoking status: Patient denies any tobacco usage or history of. Patient uses street drugs, marijuana. - Family history:: not pertinent. - Hospitalizations: : No recent hospitalization is reported. Screenin:55 Abuse screen: Denies threats or abuse. Denies injuries from another. Nutritional [facility] screening: No deficits noted. Tuberculosis screening: No symptoms or risk factors identified. Fall Risk None identified. Assessment: 19:14 General: Appears distressed, Behavior is drowsy. Pain: Complains of pain in left low aa9 back Pain does not radiate. Pain currently is 9 out of 10 on a pain scale. Pain began 4 days ago Is continuous. Neuro: Oriented to person, place, time, situation. 20:35 Reassessment: c/o of pain, requested pain medicine, notified Dr Anders . aa9 Vital Signs: 18:50 BP 118 / 67; Pulse 111; Resp 18; Pulse Ox 100% ; Weight 96.62 kg; Height 5 ft. 10 in. jh5 (177.80 cm); Pain 10/10; 19:01 BP 88 / 58; Pulse 111; Pulse Ox 100% ; jh5 19:06 BP 98 / 59; jh5 19:14 BP 111 / 62; Pulse 109; Resp 14 S; Temp 98.1(O); Pulse Ox 100% on R/A; Pain 9/10; aa9 21:35 BP 108 / 72; Pulse 95; Resp 14; Pulse Ox 100% on R/A; aa9 18:50 Body Mass Index 30.56 (96.62 kg, 177.80 cm) 5 ED Course: 18:36 Patient arrived in ED. rg4 18:47 Elliott Angel PA is PHCP. [facility] 18:48 Jeevan Guzman DO is Attending Physician. [facility] 18:53 Triage completed. jh5 18:53 Arm band placed on right wrist. jh5 18:55 Patient has correct armband on for positive identification. jh5 19:00 Inserted saline lock: 20 gauge in right antecubital area, using aseptic technique. jh5 19:04 Salinas Simental, RN is Primary Nurse. as6 19:08 Zacarias Anders MD is Attending Physician. rn 19:50 CT Abd/Pelvis - Without Contrast In Process Unspecified. EDMS 20:43 Warm blanket given. aa9 21:35 No provider procedures requiring assistance completed. IV discontinued, intact, aa9 bleeding controlled, No redness/swelling at site. Pressure dressing applied. Administered Medications: 19:25 Drug: NS 0.9% 250 ml Route: IV; Rate: bolus; Site: right antecubital; aa9 21:37 Follow up: Response: No adverse reaction; IV Status: Completed infusion; IV Intake: aa9 250ml 20:44 Drug: fentaNYL (PF) 25 mcg Route: IVP; Site: right antecubital; aa9 21:36 Follow up: Response: No adverse reaction aa9 Medication: 21:35 VIS not applicable for this client. aa9 Intake: 21:37 IV: 250ml; Total: 250ml. aa9 Outcome: 21:18 Discharge ordered by . rn 21:35 Discharged to home ambulatory. aa9 21:35 Condition: stable 21:35 Discharge instructions given to patient, significant other, Instructed on discharge instructions, follow up and referral plans. Demonstrated understanding of instructions, follow-up care, Prescriptions given X 21:36 Patient left the ED. aa9 Signatures: Dispatcher [employer] EDMS Elliott Angel PA PA jmm Nieto, Roman, MD MD rn Garcia, Rubi rg4 Lisa Stoddard RN RN jh5 Salinas Simental RN RN as6 Nery Venegas, RN RN aa9 Corrections: (The following items were deleted from the chart) 19:06 18:50 Chief complaint: Patient states: Pt has 1 kidney, went to dialysis today and jh5 having severe left flank pain jh5
--- NOTE | 2022-06-22 21:19 | EDPHYS ---
Physician Documentation [facility] Name: Vladimir Maguire Age: 51 yrs Sex: Male : 1970 Arrival Date: 06/22/2022 Time: 18:36 Bed 4 Private MD: ED Physician Zacarias Anders HPI: 06/22 20:01 This 51 yrs old Male presents to ER via Ambulatory with complaints of Back rn Pain. 20:01 The patient presents with pain that is acute, with no known mechanism of injury. The rn symptoms are located in the left mid back. Onset: The symptoms/episode began/occurred 2 week(s) ago. The pain does not radiate. Associated signs and symptoms: Pertinent negatives: abdominal pain, chest pain, fever, incontinence, tingling, urinary retention. Modifying factors: The patient symptoms are alleviated by nothing, the patient symptoms are aggravated by any movement. Severity of symptoms: At their worst the symptoms were moderate, in the emergency department the symptoms are unchanged. The patient has experienced similar episodes in the past. The patient has been recently seen by a physician:. Pt and family report back pain for 2-3 weeks, no injury, has talked to his pediatric audiologist for this, unable to get into office today so came here. Last dialysis today. No fever. No trauma. Hurts to touch and move. . Historical: - Allergies: 18:53 Ativan; jh5 - PMHx: 18:53 Diabetes - NIDDM; Hypertension; neuropathy; Renal Disease; Rheumatoid Arthritis; [facility] - PSHx: 18:53 dialysis site to left arm; RIGHT BKA; [facility] - Immunization history:: Adult Immunizations up to date. - Social history:: Smoking status: Patient denies any tobacco usage or history of. Patient uses street drugs, marijuana. - Family history:: not pertinent. - Hospitalizations: : No recent hospitalization is reported. ROS: 20:01 Constitutional: Negative for fever, chills, and weight loss, Eyes: Negative for injury, rn pain, redness, and discharge, Neck: Negative for injury, pain, and swelling, Cardiovascular: Negative for chest pain, palpitations, and edema, Respiratory: Negative for shortness of breath, cough, wheezing, and pleuritic chest pain, Abdomen/GI: Negative for abdominal pain, nausea, vomiting, diarrhea, and constipation, Back: + left back/flank pain : Negative for injury, bleeding, discharge, and swelling, MS/Extremity: Negative for injury and deformity, Skin: Negative for injury, rash, and discoloration, Neuro: Negative for headache, weakness, numbness, tingling, and seizure. Exam: 20:01 Constitutional: This is a well developed, well nourished patient who is awake, no recording studio intern distress Head/Face: Normocephalic, atraumatic. Cardiovascular: Tachycardic, regular Respiratory: No increased work of breathing, no retractions or nasal flaring. Abdomen/GI: Soft, non-tender Back: No spinal tenderness. No costovertebral tenderness. Painful to palpation and rotation, pain with sitting up. Skin: Warm, dry, no lesions to indicate shingles. MS/ Extremity: NO cyanosis Neuro: Awake and alert, GCS 15 23:39 ECG was reviewed by the Attending Physician. rn Vital Signs: 18:50 BP 118 / 67; Pulse 111; Resp 18; Pulse Ox 100% ; Weight 96.62 kg; Height 5 ft. 10 in. 5 (177.80 cm); Pain 10/10; 19:01 BP 88 / 58; Pulse 111; Pulse Ox 100% ; 5 19:06 BP 98 / 59; 5 19:14 BP 111 / 62; Pulse 109; Resp 14 S; Temp 98.1(O); Pulse Ox 100% on R/A; Pain 9/10; aa9 21:35 BP 108 / 72; Pulse 95; Resp 14; Pulse Ox 100% on R/A; aa9 18:50 Body Mass Index 30.56 (96.62 kg, 177.80 cm) [facility] MDM: 19:08 Patient medically screened. rn 21:16 Differential diagnosis: arthritis, chronic back pain, Fracture Osteoarthritis ruptured rn disc, sprain, Ureterolithiasis vertebral fracture. Data reviewed: vital signs, nurses notes, lab test result(s), radiologic studies, CT scan, and as a result, I will discharge patient. Counseling: I had a detailed discussion with the patient and/or guardian regarding: the historical points, exam findings, and any diagnostic results supporting the discharge/admit diagnosis, lab results, radiology results, the need for outpatient follow up, to return to the emergency department if symptoms worsen or persist or if there are any questions or concerns that arise at home. Response to treatment: the patient's symptoms have markedly improved after treatment, and as a result, I will discharge patient. Special discussion: I discussed with the patient/guardian in detail that at this point there is no indication for admission to the hospital. It is understood, however, that if the symptoms persist or worsen the patient needs to return immediately for re-evaluation. Based on the history and exam findings, there is no indication for further emergent testing or inpatient evaluation. I discussed with the patient/guardian the need to see the back specialist for further evaluation of the symptoms. I discussed with the patient/guardian the need to see the primary care provider for further evaluation of the symptoms. ED course: NO acute findings on ct abdomen/pelvis or bloodwork, afebrile, stable vitals. Feels much better. Symptoms have been present for atleast 1-2 weeks, recommend close d/u with pcp and nephrology for further evaluation. Return precautions given and understood.. 06/22 19:15 Order name: CBC with Diff; Complete Time: 20:22 vc1 06/22 19:15 Order name: BMP; Complete Time: 20:45 vc1 06/22 19:17 Order name: LFT's; Complete Time: 20: rn 06/22 19:17 Order name: Lipase; Complete Time: 20: rn 06/22 19:17 Order name: CT Abd/Pelvis - Without Contrast; Complete Time: 20:22 rn 06/22 19:17 Order name: IV Start; Complete Time: 19:18 rn 06/22 19:17 Order name: EKG; Complete Time: 19:18 rn 06/22 19:17 Order name: EKG - Nurse/Tech; Complete Time: 19:20 rn EC:39 Rate is 103 beats/min. Rhythm is regular. QRS [place] is Normal. MD interval is normal. rn QRS interval is normal. QT interval is normal. No Q waves. T waves are Normal. No ST changes noted. Clinical impression: Sinus tachycardia. Interpreted by me. Reviewed by me. Administered Medications: 19:25 Drug: NS 0.9% 250 ml Route: IV; Rate: bolus; Site: right antecubital; aa9 21:37 Follow up: Response: No adverse reaction; IV Status: Completed infusion; IV Intake: aa9 250ml 20:44 Drug: fentaNYL (PF) 25 mcg Route: IVP; Site: right antecubital; aa9 21:36 Follow up: Response: No adverse reaction aa9 Disposition Summary: 06/22/22 21:18 Discharge Ordered Location: Home rn Problem: an ongoing problem rn Symptoms: have improved rn Condition: Stable rn Diagnosis - Low back pain rn - End stage renal disease rn Followup: rn - With: Private Physician - When: As needed - Reason: Recheck today's complaints, Re-evaluation by your physician Discharge Instructions: - Discharge Summary Sheet rn - Chronic Back Pain rn - Musculoskeletal Pain rn - End-Stage Kidney Disease rn Forms: - Medication Reconciliation Form rn - Thank You Letter rn - Antibiotic 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
[2022-06-22 22:57] VITALS: O2SAT 100
[2022-06-22 23:07] VITALS: TEMP 98.1
[2022-06-22 23:08] VITALS: BP 108/72
--- NOTE | 2022-06-23 07:54 | EKG ---
Test Date: 2022-06-22 Test Time: 19:14:40 Power Machine Operator: BRADLY MEASUREMENT RESULTS: Intervals: Rate: 103 ME: 166 QRSD: 88 QT: 356 QTc: 466 [place]: P: 70 ME: 166 QRS: 58 T: 80 INTERPRETIVE STATEMENTS: Sinus tachycardia with occasional premature ventricular complexes Otherwise normal ECG Compared to ECG 05/11/2022 15:05:15 Ventricular premature complex(es) now present Sinus rhythm no longer present Electronically Signed On 06-23-22 07:53:13 CDT by Giuseppe Richmond
== END 2022-06-22 21:36 | disposition home or self-care (01) ==
LOC: ER 18:34
DX: M54.50 Low back pain, unspecified (principal); E11.22 Type 2 diabetes mellitus with diabetic chronic kidney disease; I12.0 Hypertensive chronic kidney disease with stage 5 chronic kidney disease or end stage renal disease; N18.6 End stage renal disease; Z99.2 Dependence on renal dialysis; Z88.8 Allergy status to other drugs, medicaments and biological substances; Z89.511 Acquired absence of right leg below knee
CPT/HCPCS: 85025; 80048; 36415; 80076; 83690; 74176; J3010; J7050; 93005

== ENCOUNTER 2022-08-26 14:18 | Emergency (ER) | payer OTHER ==
--- OUTSIDE RECORDS SUMMARY | 2022-08-26 14:29 | XMS REPORT | Continuity of Care Document ---
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 1 Univers acetate 667 0-23 CAPSULE BY it y of mg capsule 00:00: [address] DAILY WITH MEAL.ALSO TAKE 1 CAPSULE BY MOUTH TWICE DAILY WITH SNACK calcium 2018-11 Yes TAKE 1 Univers acetate 667 0-23 CAPSULE BY it y of mg capsule 00:00: [address] DAILY WITH MEAL.ALSO TAKE 1 CAPSULE BY MOUTH TWICE DAILY WITH SNACK calcium 2018-11 Yes TAKE 1 Univers acetate 667 0-23 CAPSULE BY it y of mg capsule 00:00: [address] DAILY WITH MEAL.ALSO TAKE 1 CAPSULE BY MOUTH TWICE DAILY WITH SNACK calcium 2018-11 Yes TAKE 1 Univers acetate 667 0-23 CAPSULE BY it y of mg capsule 00:00: [address] DAILY WITH MEAL.ALSO TAKE 1 CAPSULE BY MOUTH TWICE DAILY WITH SNACK calcium 2018-11 Yes TAKE 1 Univers acetate 667 0-23 CAPSULE BY it y of mg capsule 00:00: [address] DAILY WITH MEAL.ALSO TAKE 1 CAPSULE BY MOUTH TWICE DAILY WITH SNACK NIFEdipine Yes 90mg Take 90 mg U nivers XL 90 mg 24 3-25 by mouth ity of hr tablet 00:00: daily. [place] [facility] NIFEdipine 2018-0 Yes 90mg Take 90 mg U nivers XL 90 mg 24 3-25 by mouth ity of hr tablet 00:00: daily. [address] NIFEdipine 2018- Yes 90mg Take 90 mg U nivers XL 90 mg 24 3-25 by mouth ity of hr tablet 00:00: daily. [address] NIFEdipine 2018- Yes 90mg Take 90 mg U nivers XL 90 mg 24 3-25 by mouth ity of hr tablet 00:00: daily. [address] NIFEdipine 2018- Yes 90mg Take 90 mg U nivers XL 90 mg 24 3-25 by mouth ity of hr tablet 00:00: daily. [address] Ancef + 2017- Yes Notes: Memoria sterile 07-12 (Same As: l water 20 mL 17:00: Ancef, [place] Kefzol) MEDICATION WASTE Product Size: 1000 mg [...] l water 20 mL 17:00: Ancef, [place] Kefzol) MEDICATION WASTE Product Size: 1000 mg [...] l water 20 mL 17:00: Ancef, [place] 00 Kefzol) MEDICATION WASTE Product Size: 1000 [...] l water 20 mL 17:00: Ancef, [place] 00 Kefzol) MEDICATION WASTE Product Size: 1000 [...] l water 20 mL 17:00: Ancef, [place] 00 Kefzol) MEDICATION WASTE Product Size: 1000 mg Product Wasted: ___ mg Vancomycin 2018-0 Yes 2001 mg: Me moria 07-12 infuse l 17:00: over 2.5 [place] 00 hours For adult patients only: Round to nearest 250 mg per Medical Staff approval MEDICATION WASTE Product Size: 1000 mg Product Wasted: ___ mg meloxicam 2018-0 Yes 15 mg = 1 Mem oria 15 mg oral 07-12 tab, PO, l tablet 16:39: Daily, # [place] 00 30 tab, 0 Refill(s) meloxicam 2018-0 [...] tab, PO, l tablet 16:39: Daily, # [place] 00 30 tab, 0 Refill(s) meloxicam 2018-0 Yes 15 mg = 1 Mem oria 15 mg oral 07-12 tab, PO, l tablet 16:39: Daily, # Rob 00 30 tab, 0 Refill(s) Acetaminoph 2017-0 Yes 1 tab, PO, Memoria en 325 MG / 07-12 TID, PRN l Hydrocodone 16:38: Pain, # 60 Rob Bitartrate 00 tab, 0 10 MG Oral Refill(s) Tablet [[place] 10/325] Trazodone 2017-0 Yes 100 mg = 1 Me moria Hydrochlori 07-12 tab, PO, l de 100 MG 16:38: Bedtime, # [place] r[place] Oral Tablet 00 30 tab, 0 Refill(s) Acetaminoph 2018-0 Yes 1 tab, PO, Memoria en 325 MG / 07-12 TID, PRN l Hydrocodone 16:38: Pain, # 60 [place] Bitartrate 00 tab, 0 10 MG Oral Refill(s) Tablet [[place] 10325] Trazodone 2018 Yes 100 mg = 1 Me moria Hydrochlori 07-12 tab, PO, l de 100 MG 16:38: Bedtime, # [place] Oral Tablet 00 30 tab, 0 Refill(s) Acetaminoph 20180 Yes 1 tab, PO, Memoria en 325 MG / 07-12 TID, PRN l Hydrocodone 16:38: Pain, # 60 [place] Bitartrate 00 tab, 0 10 MG Oral Refill(s) Tablet [[place] 10325] Trazodone Yes 100 mg = 1 Me mor[place] Hydrochlori 07-12 tab, PO, l de 100 MG 16:38: Bedtime, # [place] r[place] Oral Tablet 00 30 tab, 0 Refill(s) Acetaminoph 0 Yes 1 tab, PO, Memoria en 325 MG / 07-12 TID, PRN l Hydrocodone 16:38: Pain, # 60 [place] Bitartrate 00 tab, 0 10 MG Oral Refill(s) Tablet [[place] 10325] Trazodone 0 Yes 100 mg = 1 Me moria Hydrochlori 07-12 tab, PO, l de 100 MG 16:38: Bedtime, # [place] Oral Tablet 00 30 tab, 0 Refill(s) Acetaminoph 20180 Yes 1 tab, PO, Memoria en 325 MG / 06 TID, PRN l Hydrocodone 16:38: Pain, # 60 [place] Bitartrate 00 tab, 0 10 MG Oral Refill(s) Tablet [[place] 10325] Trazodone 0 Yes 100 mg = 1 Me moria Hydrochlori 07-12 tab, PO, l de 100 MG 16:38: Bedtime, # [place] r[place] Oral Tablet 00 30 tab, 0 Refill(s) metoprolol 2018-0 Yes 50 mg = 1 Me moria tartrate 50 9-06 tab, PO, l mg oral 16:37: BID, # 180 [place] tablet 00 tab, 0 Refill(s) lisinopril 2018-0 Yes 30 mg = 1 Me moria 30 mg oral 9-06 tab, PO, l tablet 16:37: Daily, # Rob 00 30 tab, 0 Refill(s) metoprolol 2018-0 Yes 50 mg = 1 Me moria tartrate 50 9-06 tab, PO, l mg oral 16:37: BID, # 180 [place] tablet 00 tab, 0 Refill(s) lisinopril 2018-0 Yes 30 mg = 1 Me mor[place] 30 mg oral 9-06 tab, PO, l tablet 16:37: Daily, # [place] 00 30 tab, 0 Refill(s) metoprolol 2018-0 Yes 50 mg = 1 Me mor[place] tartrate 50 9-06 tab, PO, l mg oral 16:37: BID, # 180 [place] tablet 00 tab, 0 Refill(s) lisinopril 2018-0 Yes 30 mg = 1 Me mor[place] 30 mg oral 9-06 tab, PO, l tablet 16:37: Daily, # [place] 00 30 tab, 0 Refill(s) metoprolol 2018-0 Yes 50 mg = 1 Me [place] tartrate 50 9-06 tab, PO, l mg oral 16:37: BID, # 180 [place] tablet 00 tab, 0 Refill(s) lisinopril 2018-0 Yes 30 mg = 1 Me mor[place] 30 mg oral 9-06 tab, PO, l tablet 16:37: Daily, # Rob 00 30 tab, 0 Refill(s) metoprolol 2018-0 Yes 50 mg = 1 Me [place] tartrate 50 9-06 tab, PO, l mg oral 16:37: BID, # 180 [place] tablet 00 tab, 0 Refill(s) lisinopril 2018-0 Yes 30 mg = 1 Me moria 30 mg oral 9-06 tab, PO, l tablet 16:37: Daily, # Rob 00 30 tab, 0 Refill(s) ACETAMINOPH 2016- Yes History of 1{tbl} Take 1 [facility] EN-CODEINE 4-05 fusion of tablet by Health #4 00:00: cervical mouth 2 (TYLENOL/CO 00 spine times DEINE #4) daily as 300-60 mg needed for per tablet Pain. ACETAMINOPH 2015- Yes History of 1{tbl} Take 1 [facility] [...] Use 1 [facility] (FLONASE) 3-03 rhinitis, } [place] in H ealth 50 00:00: unspecified each [...] Use 1 [facility] (FLONASE) 3-03 rhinitis, } [place] in H ealth 50 00:00: unspecified each [...] Use 1 [facility] (FLONASE) 3-03 rhinitis, } [place] in H ealth 50 00:00: unspecified each [...] every 8 hours as needed for Pain. 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 gabapentin 2016 Yes Status post 600mg Take 1 [facility] (NEURONTIN) 1-21 below knee tablet by [facility] 600 mg 00:00: amputation mouth 3 tablet 00 of right times lower daily. extremity lisinopril- Yes 1{tbl} QD Take 1 [facility] hydrochloro 1-21 tablet by [facility] thiazide 00:00: mouth (ZESTORETIC 00 daily. ) 20-25 mg per tablet ketoconazol 2015- Yes Toenail QD Apply to [facility] (NIZORAL) -21 fungus affected He alth 2 % topical 00:00: area cream 00 daily. albuterol Yes Cough 2{puff} Inhale 2 [facility] (VENTOLIN 1-21 Puffs by [facility] HFA,PROVENT 00:00: mouth 4 [place] 00 times HFA,PROAIR daily as HFA) 90 needed for mcg/actuati Wheezing. on inhaler zolpidem Yes Insomnia, 5mg Take 1 [facility] (AMBIEN) 5 1-21 unspecified tablet by [facility] mg Tab 00:00: mouth 00 nightly at bedtime as needed for Insomnia. omeprazole 2016- Yes Status post 40mg QD Take 2 [facility] (PRILOSEC) 1-21 below knee capsules Health 20 mg 00:00: amputation by mouth delayed 00 of right daily. release lower capsule extremity FLUoxetine 2015- Yes Status post 20mg QD Take 1 [facility] (PROZAC) 20 1-21 below knee capsule by [facility] mg capsule 00:00: amputation mouth 00 of right daily. lower extremity insulin Yes Type 2 10U Inject 10 Saeid ris REGULAR 1-21 diabetes, Units [facility] (NOVOLIN R, 00:00: uncontrolle under the HUMULIN [...] [facility] (NEURONTIN) 1-21 below knee tablet by [facility] 600 mg 00:00: amputation mouth 3 tablet 00 of right times lower daily. extremity lisinopril- Yes 1{tbl} QD Take 1 [place] [facility] hydrochloro 1-21 tablet by [facility] thiazide 00:00: mouth (ZESTORETIC 00 daily. ) 20-25 mg per tablet ketoconazol 2015- Yes Toenail QD Apply to [facility] (NIZORAL) 1-21 fungus affected He alth 2 % topical 00:00: area cream 00 daily. albuterol Yes Cough 2{puff} Inhale 2 [facility] (VENTOLIN 1-21 Puffs by [facility] HFA,PROVENT 00:00: mouth 4 [place] 00 times HFA,PROAIR daily as HFA) 90 needed for mcg/actuati Wheezing. on inhaler zolpidem Yes Insomnia, 5mg Take 1 [facility] (AMBIEN) 5 1-21 unspecified tablet by [facility] mg Tab 00:00: mouth 00 nightly at bedtime as needed for Insomnia. omeprazole Yes Status post 40mg QD Take 2 [facility] (PRILOSEC) 1-21 below knee capsules Health 20 mg 00:00: amputation by mouth delayed 00 of right daily. release lower capsule extremity FLUoxetine Yes Status post 20mg QD Take 1 [facility] (PROZAC) 20 1-21 below knee capsule by [facility] mg capsule 00:00: amputation mouth 00 of [...] [facility] (NEURONTIN) 1-21 below knee tablet by [facility] 600 mg 00:00: amputation mouth 3 tablet 00 of right times lower daily. extremity lisinopril- Yes 1{tbl} QD Take 1 [facility] hydrochloro 1-21 tablet by [facility] thiazide 00:00: mouth (ZESTORETIC 00 daily. ) 20-25 mg per tablet ketoconazol Yes Toenail QD Apply to [facility] (NIZORAL) 1-21 fungus affected He alth 2 % topical 00:00: area cream 00 daily. albuterol Yes Cough 2{puff} Inhale 2 [facility] (VENTOLIN 1-21 Puffs by [facility] HFA,PROVENT 00:00: mouth 4 [place] 00 times HFA,PROAIR daily as HFA) 90 needed for mcg/actuati Wheezing. on inhaler zolpidem Yes Insomnia, 5mg Take 1 [facility] (AMBIEN) 5 1-21 unspecified tablet by [facility] mg Tab 00:00: mouth 00 nightly at bedtime as needed for Insomnia. omeprazole Yes Status post 40mg QD Take 2 [facility] (PRILOSEC) 1-21 below knee capsules Health 20 mg 00:00: amputation by mouth delayed 00 of right daily. release lower capsule extremity FLUoxetine Yes Status post 20mg QD Take 1 [facility] (PROZAC) 20 1-21 below knee capsule by [facility] mg capsule 00:00: amputation mouth 00 of right daily. 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 lancets Yes use as Harri s gauge 1-30 directed 3 Health 00:00: times 00 daily. albuterol Yes 2{puff} Inhale 2 H arris (PROVENTIL 1-30 Puffs by Healt h HFA) 90 00:00: mouth 4 mcg/actuati 00 times on inhaler daily as needed for Wheezing. lancets 28 2015-0 Yes use as Harri s gauge 1-30 directed 3 Health 00:00: times 00 daily. albuterol 2014-0 Yes 2{puff} Inhale 2 H arris (PROVENTIL 1-30 Puffs by Healt h HFA) 90 00:00: mouth 4 mcg/actuati 00 times on inhaler daily as needed for Wheezing. lancets 28 2014-0 Yes use as Harri s gauge 1-30 directed 3 Health 00:00: times 00 daily. albuterol 2014-0 Yes 2{puff} Inhale 2 H arris (PROVENTIL 1-30 Puffs by Healt h HFA) 90 00:00: mouth 4 mcg/actuati 00 times on inhaler daily as needed for Wheezing. Immunizations Ordered Immunization Filled Immunization Date Status Commen ts Source Name Name Pfizer COVID-19 Pfizer COVID-19 2021-01-23 Completed Vaccine Vaccine 00:00:00 SARS-COV-2 COVID-19 2021-01-23 Completed Unive rsity of PFIZER VACCINE 00:00:00 [facility] SARS-COV-2 COVID-19 2021-01-23 Completed Unive rsity of PFIZER VACCINE 00:00:00 [facility] SARS-COV-2 COVID-19 2021-01-23 Completed Unive rsity of PFIZER VACCINE 00:00:00 [facility] SARS-COV-2 COVID-19 2021-01-23 Completed Unive rsity of PFIZER VACCINE 00:00:00 [facility] SARS-COV-2 COVID-19 2021-01-23 Completed Unive rsity of PFIZER VACCINE 00:00:00 [facility] SARS-COV-2 COVID-19 2021-01-02 Completed Unive rsity of PFIZER VACCINE 00:00:00 [facility] Pfizer COVID-19 Pfizer COVID-19 2021-01-02 Completed Vaccine Vaccine 00:00:00 SARS-COV-2 COVID-19 2021-01-02 Completed Unive rsity of PFIZER VACCINE 00:00:00 [facility] SARS-COV-2 COVID-19 2021-01-02 Completed Unive rsity of PFIZER VACCINE 00:00:00 [facility] SARS-COV-2 COVID-19 2021-01-02 Completed Unive rsity of PFIZER VACCINE 00:00:00 [facility] SARS-COV-2 COVID-19 2021-01-02 Completed Unive rsity of PFIZER VACCINE 00:00:00 [facility] Influenza Virus 2018-09-12 Completed Universit y of Vaccine Quad .5 mL 00:00:00 [place] [facility] 6+ MO Branch Influenza Virus 2018-09-12 Completed Universit y of Vaccine Quad .5 mL 00:00:00 [place] [facility] IM 6+ MO Branch Influenza Virus 2018-09-12 Completed Universit y of Vaccine Quad .5 mL 00:00:00 [place] [facility] IM 6+ MO Branch Influenza Virus 2018-09-12 Completed Universit y of Vaccine Quad .5 mL 00:00:00 [facility] IM 6+ MO Branch Influenza Virus 2018-09-12 Completed Universit y of Vaccine Quad .5 mL 00:00:00 [facility] 6+ MO [place] Pneumococcal 2018-01-07 Completed University o f Polysaccharide, 00:00:00 [place] Med ical PPSV23 (PNEUMOVAX) Branch Influenza Virus 2018-01-07 Completed Universit y of Vaccine Quad IM 3+ 00:00:00 [facility] Pneumococcal 2018-01-07 Completed University o f Polysaccharide, 00:00:00 [place] Med ical PPSV23 (PNEUMOVAX) Branch Influenza Virus 2018-01-07 Completed Universit y of Vaccine Quad IM 3+ 00:00:00 [facility] Pneumococcal 2018-01-07 Completed University o f Polysaccharide, 00:00:00 [place] Med ical PPSV23 (PNEUMOVAX) Branch Influenza Virus 2018-01-07 Completed Universit y of Vaccine Quad IM 3+ 00:00:00 [facility] Pneumococcal 2018-01-07 Completed University o f Polysaccharide, 00:00:00 [place] Med ical PPSV23 (PNEUMOVAX) Branch Influenza Virus 2018-01-07 Completed Universit y of Vaccine Quad IM 3+ 00:00:00 [facility] Pneumococcal 2018-01-07 Completed University o f Polysaccharide, 00:00:00 [place] Med ical PPSV23 (PNEUMOVAX) Branch Influenza Virus 2018-01-07 Completed Universit y of Vaccine Quad IM 3+ 00:00:00 [facility] Influenza Vaccine 2013-10-[address] [facility] 00:00:00 Influenza Vaccine 2013-10-[address] [facility] 00:00:00 Influenza Vaccine 2013-10-[address] [facility] 00:00:00 Tropicamide 0.5% 2013-06-28 Completed [facility] ealt Eye-Amanda 15ml 00:00:00 Tropicamide 0.5% 2013-06-28 Completed [facility]-Amanda 15ml 00:00:00 Tropicamide 0.5% 2013-06-28 Completed [facility] Eye-[facility]manda 15ml 00:00:00 Tropicamide 0.5% 2013-06-28 Completed [facility]mand[facility] 15ml 00:00:00 Tropicamide 0.5% 2013-06-28 Completed [facility] ealth Eye-Amanda 15ml 00:00:00 Tropicamide 0.5% 2013-06-28 Completed [facility] ealt Eye-Amanda 15ml 00:00:00 PPV 23 Pneumococcal 2013-03-29 Completed [employer] [facility] Polysaccaride 00:00:00 PPV 23 Pneumococcal 2013-03-29 Completed [employer] [facility] Polysaccaride 00:00:00 PPV 23 Pneumococcal 2013-03-[address] [facility] Vital Signs Vital Name Observation Time Observation Value Comments Source Systolic blood 2022-06-13 124 mm[Hg] dizzy,light University of pressure 15:36:00 headed [facility] Diastolic blood 2022-06-13 71 mm[Hg] dizzy,light University o f pressure 15:36:00 [facility] Heart rate 2022-06-13 109 /min [facility] 15:36:00 [facility] Oxygen saturation 2022-06-13 98 /min [facility] in Arterial blood 15:36:00 [facility] by Pulse oximetry [place] Body temperature 2022-06-13 36.28 Jocelyne University of 15:07:00 [facility] Respiratory rate 2022-06-13 17 /min University 15:07:00 [facility] Body height 2022-06-13 177.8 cm [place] of 15:07:00 [facility] Body weight 2022-06-13 98.068 kg [place] of 15:07:00 [facility] BMI 2022-06-13 31.02 kg/m2 [place] of 15:07:00 [facility] Systolic blood 2022-05-14 175 mm[Hg] [facility] pressure 12:20:06 [facility] Diastolic blood 2022-05-14 119 mm[Hg] [facility] pressure 12:20:06 Hospital Heart rate 2022-05-14 90 /min [facility] 12:20:06 Hospital Body temperature 2022-05-14 36.56 Jocelyne [facility] 12:20:06 Hospital Respiratory rate 2022-05-14 18 /min [facility] 12:20:06 Hospital Oxygen saturation 2022-05-14 100 /min [facility] in Arterial blood 12:20:06 Hospital by Pulse oximetry Body weight 2022-05-14 96.798 kg [facility] 09:58:53 Hospital BMI 2022-05-14 30.62 kg/m2 [facility] 09:58:53 Hospital Body height 2022-05-13 177.8 cm [facility] 02:00:00 Hospital Respitory Rate 2018-07-12 [facility] 17:23:00 Heart Rate 2018-07-12 Gerard Pastranaan n 17:23:00 Temperature Oral 2018-07-12 98 F [facility] Refugio rmann (F) 17:23:00 Systolic (mm Hg) 2018-07-12 [facility] rmann 17:23:00 Diastolic (mm Hg) 2018-07-12 [facility] ermann 17:23:00 BMI Calculated 2018-07-12 [facility] 17:01:00 Weight 2018-07-12 Gerard Pastranaan n 17:01:00 Height 2018-07-12 180.34 cm [facility] Alex n 17:01:00 Procedures Procedure Date / Time Performing Clinician Source Performed AUTHORIZATION FOR 2022-06-30 05:01:00 Doctor Unassigned, No Univ ersity [facility] RELEASE OF PSYCHIATRIC Name Medical Branch AUTHORIZATION FOR 2022-06-27 05:01:00 Doctor Unassigned, No Univ ersity [facility] RELEASE OF [facility] Medical Branch MISC - NON-LEGAL REC 2022-06-14 05:01:00 Doctor Unassigned, No [facility] [place] Name Medical Branch HC COMPLETE BLD COUNT 2022-05-14 09:12:00 Abbie Arboleda [facility] W/AUTO DIFF COMPREHENSIVE METABOLIC 2022-05-14 09:12:00 Abbie Arboleda [facility] PANEL ESTIMATED GFR 2022-05-14 09:12:00 Abbie Arboleda Ho spital COVID-19 ANTI-SPIKE IGG 2022-05-14 09:00:00 [facility] ANTIBODY TITER Roe COVID-19 SEROLOGY 2022-05-14 09:00:00 [facility] PATIENT SURVEILLANCE Roe HEPATITIS B SURFACE 2022-05-13 21:36:00 Remi Mcnulty [facility] ANTIGEN Bharatkumar XR CHEST 1 VW PORTABLE 2022-05-13 19:07:00 Suri [facility] ECG PRE/POST OP 2022-05-13 18:30:58 Suri [place] [facility] Vladimir POC GLUCOSE 2022-05-13 18:30:00 Abbie Arboleda Ho spital EP PACEMAKER INSERTION 2022-05-13 17:54:49 Madelin [facility] NEW OR REPLACEMENT [place] AN ELECTIVE 2022-05-13 16:28:00 Maritza Skinner [facility] SUPRAGLOTTIC AIRWAY POC GLUCOSE 2022-05-13 15:46:00 Abbie Arboleda spital TYPE AND SCREEN 2022-05-13 15:38:00 Tavo Yusuf Ho spital HEMODIALYSIS 2022-05-13 13:26:02 Remi Mcnulty spital Bharatkumar POC GLUCOSE 2022-05-13 12:53:00 Abbie Arboleda spital HC COMPLETE BLD COUNT 2022-05-13 09:53:00 Abbie Arboleda [facility] W/AUTO DIFF COMPREHENSIVE METABOLIC 2022-05-13 09:53:00 [facility] PANEL ESTIMATED GFR 2022-05-13 09:53:00 Abbie Arboleda Ho spital POC GLUCOSE 2022-05-13 02:40:00 [facility] SURFACE 2022-04-15 12:53:00 [facility] ANTIGEN Center HEPATITIS B SURFACE 2022-04-15 12:53:00 [facility] ANTIBODY Center HEPATITIS B CORE 2022-04-15 12:53:00 [facility] ANTIBODY, TOTAL Center HEPATITIS C ANTIBODY 2022-04-15 12:53:00 [facility] HEPATITIS B SURFACE 2022-04-14 15:09:00 [facility] Center HEPATITIS B SURFACE 2022-04-14 15:09:00 [facility] ANTIBODY Center [id number] 2020-10-26 00:00:00 JUNE [facility] [id number] 2020-10-20 00:00:00 [facility] [id number] 2020-10-20 00:00:00 [facility] [id number] 2020-10-20 00:00:00 [facility] [id number] 2020-10-20 00:00:00 [facility] [id number] 2020-10-20 00:00:00 [facility] [id number] 2020-10-20 00:00:00 [facility] Amputation [facility] Anterior spinal fusion [facility] for cervical spinal deformity 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 Insertion of tunnelled [facility] dialysis catheter using fluoroscopic guidance Knee replacement [facility] ORIF - Open reduction [facility] and internal fixation of fracture Tonsillectomy [facility] Plan of Care Planned Activity Planned Date Details Comments Source Future Scheduled 2022-08-11 HEPATITIS B VACCINES [facility] Test 16:48:32 (1 of 3 - 3-dose series) [code = HEPATITIS B VACCINES (1 of 3 - 3-dose series)] Future Scheduled 2022-08-11 Pneumococcal Vaccine: [facility] Test 16:48:32 Pediatrics (0 to 5 Years) and At-Risk Patients (6 to 64 Years) (1 - PCV) [code = Pneumococcal Vaccine: Pediatrics (0 to 5 Years) and At-Risk Patients (6 to 64 Years) (1 - PCV)] Future Scheduled 2022-08-11 DIABETES: RETINAL EYE [facility] Test 16:48:32 EXAM [code = DIABETES: RETINAL EYE EXAM] Future Scheduled 2022-08-11 DIABETIC FOOT EXAM [facility] Test 16:48:32 [code = DIABETIC FOOT EXAM] Future Scheduled 2022-08-11 URINE MICROALBUMIN [facility] Test 16:48:32 [code = URINE MICROALBUMIN] Future Scheduled 2022-08-11 Hepatitis C screening [facility] Test 16:48:32 (procedure) [code = 174768961] Future Scheduled 2022-08-11 SHINGLES VACCINES (1 Met [facility] Test 16:48:32 of 2) [code = SHINGLES VACCINES (1 of 2)] Future Scheduled 2022-08-11 COLONOSCOPY SCREENING [facility] Test 16:48:32 [code = COLONOSCOPY SCREENING] Future Scheduled 2022-08-11 COVID-19 VACCINE (3 - [facility] Test 16:48:32 Booster for Pfizer series) [code = COVID-19 VACCINE (3 - Booster for Pfizer series)] Future Scheduled 2022-08-11 INFLUENZA VACCINE [facility] Test 16:48:32 [code = INFLUENZA VACCINE] Future Scheduled 2018 [facility] 00:00:00 malignant neoplasm of colon (procedure) [code = 745216208] Future Scheduled 2018 [facility] Test 00:00:00 malignant neoplasm of colon (procedure) [code = 958755984] Future Scheduled 2018 Scre[facility] Test 00:00:00 malignant neoplasm of colon (procedure) [code = 512360462] Future Scheduled 1980 COVID-19 Vaccine (1) [facility] Test 00:00:00 [code = COVID-19 Vaccine (1)] Future Scheduled 1980 COVID-19 Vaccine (1) [facility] 00:00:00 [code = COVID-19 Vaccine (1)] Future Scheduled 1971-02-16 COVID-19 Vaccine (#1) [facility] 00:00:00 [code = COVID-19 Vaccine (#1)] Future Scheduled 1968 Fluoride Varnish [code H [facility] Test 00:00:00 = Fluoride Varnish] Encounters Start End Encounter Admission Attending Care Care Encounter Source Date/Time Date/Time Type Type Clinicians Facility Department ID 2022-07-28 Outpatient [facility] [id number] [place] 07:23:29 [facility] 2022-07-01 Outpatient [facility] [id number] [place] 09:45:24 [id number] [facility] 2022-06-21 Outpatient [facility] [id number] [place] 12:05:58 [id number] [facility] 2022-06-15 Outpatient [facility] [id number] [place] 11:13:15 [id number] [facility] 2022-05-23 Outpatient [facility] [id number] [place] 15:06:41 [facility] 2022-02-27 Outpatient [facility] [id number] [place] 13:36:34 [id number] [facility] 2022-02-24 Outpatient [facility] [id number] [place] 09:21:19 [id number] [facility] 2022-02-22 Outpatient [facility] [id number] [place] 06:54:13 [id number] [facility] 2022-02-13 Outpatient [facility] [id number] [place] 17:29:23 [facility] 2021-09-14 Inpatient THALIA Braun ZURIMN MMRI [id number] [facility] 10:00:00 Rosmery Lai [facility] 2021-09-06 Emergency [facility] [id number] Univers 20:29:39 ity of [facility] 2021-09-05 Emergency [facility] [id number] Univers 08:58:54 ity of [facility] 2021-09-04 Emergency [facility] [id number] Univers 13:14:55 ity of [facility] 2021-09-04 Emergency [facility] [id number] Univers 10:57:48 ity of [facility] 2021-09-02 Emergency [facility] [id number] Univers 11:04:09 ity [facility] 2021-03-29 Inpatient Saroj Coates [facility] [id number] [facility] 10:22:48 12 [facility] 2020-11-30 Inpatient Frankel, HCACL DAYS [id number] [facility] 14:00:00 Dhruvil [id number] [facility] 2020-11-27 Inpatient Frankel, HCACL DAYS [id number] [facility] 08:30:00 Dhruvil [id number] [facility] 2020-11-26 Inpatient THALIA Frankel, ZURIMN MRAD [id number] [facility] 14:29:00 Dhruvil 34 [facility] 2020-11-13 Inpatient EM EDDOVickey, HCAMN MRAD [id number] [facility] 13:08:00 GENERIC 08 [facility] 2020-10-24 Inpatient HCACL SARA [id number] [facility] 21:12:00 [id number] [facility] 2020-10-24 Inpatient HCAMN KAITLYNN [id number] [facility] 17:30:00 66 [facility] 2020-10-16 Inpatient THALIA Frankel HCACL DAYS [id number] [facility] 08:00:00 Dhtimothy [id number] [facility] 2020-10-03 Inpatient HCAMN KAITLYNN [id number] [facility] 12:12:00 31 [facility] 2020-08-15 Inpatient HCAMN KAITLYNN [id number] [facility] 07:53:00 15 [facility] 2020-02-20 Inpatient Saroj Coates [facility] DAYS [id number] [facility] 08:15:00 36 [facility] 2022-07-08 2022-07-08 [facility] [id number] Univers 08:20:00 08:20:00 JEROD donnelly [facility] 2022-07-08 2022-07-08 Outpatient R JERE, [facility] [id number] Univers 08:20:00 08:20:00 JEROD donnelly [facility] 2022-06-30 2022-06-30 Orders Doctor JEMAL 1.2.840.114 [id number] Univers 00:00:00 00:00:00 Only Unassigned, ARMANDO 350.1.13.10 ity of [place] [facility] 4.2.7.2.686 Gwyn as [phone] [address] 2022-06-29 2022-06-29 Outpatient R JERE, [facility] [id number] Univers 13:00:00 13:00:00 JEROD donnelly [facility] 2022-06-27 2022-06-27 [facility] 1.2.552.952 [id number] Univers 00:00:00 00:00:00 Jerod RENEE 350.1.13.10 ity of [place] [phone] Ct dical [facility] 2022-06-27 2022-06-27 Orders Doctor JEMAL 1.2.840.114 [id number] Univers 00:00:00 00:00:00 Only Unassigned, ARMANDO 350.1.13.10 ity of [place] [facility] 4.2.7.2.686 Gwyn as [phone] [address] 2022-06-22 2022-06-22 Outpatient R [facility], [facility] [id number] Univers 11:00:00 11:00:00 JEROD donnelly [facility] 2022-06-22 2022-06-22 Outpatient R [facility], [facility] [id number] Univers 10:00:00 10:08:00 JEROD efrain cony [facility] 2022-06-14 2022-06-14 Orders Doctor JEMAL 1.2.840.114 [id number] Univers 00:00:00 00:00:00 Only Unassigned, ARMANDO 350.1.13.10 ity of [place] [facility] 4.2.7.2.686 Gwyn as [phone] [address] 2022-06-13 2022-06-13 Outpatient R JERE, [facility] [id number] Univers 10:00:00 10:45:17 [facility] 2022-06-13 2022-06-13 Office [facility] 1.2.840.114 [id number] Univers 10:00:00 10:45:17 Visit Jerod LLOYDHAYLEY 350.1.13.10 ity of [place] [phone] Ct dical [facility] [address] [facility] 2022-05-12 2022-05-14 Hospital [facility], 1.2.840.1 [id number] Methodi 19:19:00 10:47:00 Encounter Abbie 22464.1.[address] 3.430.2.7 Hospit a .3.185724 l .8 2022-05-12 2022-05-14 Inpatient [facility] [id number] [place] [address] 00:00:00 00:00:[address] ABBI[address] 2022-05-13 2022-05-13 Anesthesia Maritza Blake 1.2.840 .1 [id number] Methodi 11:18:00 13:25:00 Event Figueroa Eid 26097.1.[address] 3.430.2.7 Hospit a .3.997567 l .8 2022-05-13 2022-05-13 Surgery Tavo Yusuf 1.2.840.1 [id number] Methodi 11:05:00 13:20:[address] 3.430.2.7 Hospit a .3.294187 l .8 2022-05-06 2022-05-06 Nurse JEMAL Buckley 1.2.840.114 [id number] Univers 00:00:00 00:00:00 Triage Joanna ROBERTS 350.1.13.10 i [facility] 4.2.7.2.686 [place]wyn as [phone] [address] 2022-05-06 2022-05-06 [facility] 1.2.137.999 [id number] Univers 00:00:00 00:00:00 Jerod RENEE 350.1.13.10 [facility] [place] [phone] [address] 2022-04-15 2022-04-[address] [facility] [id number] 00:00:00 00:00[facility]00 [facility]22-[facility]-14 2022-04-14 Outpatient R JERE [facility] [id number] Univers 13:20:00 13:20:00 JEROD zuniga o f [facility] 2022-04-14 2022-04-[address] [facility] [id number] 00:00:00 00:00:00 [facility] 2022-03-23 2022-03-23 Emergency X [facility] ERT [id number] Univers 16:51:00 18:37:00 CHIVO zuniga of [facility] 2022-03-23 2022-03-23 Emergency [facility] 1.2.179.617 [id number] Univers 16:51:00 18:37:00 Chivo RENEE 350.1.13.10 i ty of [place] [phone] [facility] [address] 2022-02-15 2022-02-15 Outpatient R JERE, [facility] [id number] Univers 11:00:00 11:00:00 JEROD zuniga o [facility] 2022-02-15 2022-02-15 Outpatient R JERE, [facility] [id number] Univers 11:00:00 11:00:00 JEROD zuniga o [facility] 2022-02-10 2022-02-10 Telephone [facility] 1..041.098 [id number] Univers 00:00:00 00:00:00 Jerod RENEE 350.1.13.10 ity of [place] 4.2.7.2.686 [facility] [phone] Ct dical [facility] 2022-02-08 2022-02-08 Outpatient R JERE, [facility] [id number] Univers 12:47:16 23:59:00 JEROD zuniga o [facility] 2022-02-08 2022-02-08 Outpatient R JERE, [facility] [id number] Univers 13:00:00 13:00:00 JEROD zuniga o [facility] 2022-01-26 2022-01-26 Committee [facility] 1..840.114 [id number] Univers 00:00:00 00:00:00 Review Kai A MULTISPEC 350.1.13.10 ity of [place] [phone] [facility] [place] [address] [address] [facility] 2022-01-26 2022-01-26 Telephone [facility] 1..840.114 [id number] Univers 00:00:00 00:00:00 Kai A MULTISPEC 350.1.13.10 it[place] of [place] [phone] [facility] [place] [address] [facility] 2022-01-18 2022-01-18 [facility]phone [facility] 1.2.978.267 [id number] Univers 00:00:00 00:00:00 Desiann RENEE 350.1.13.10 ity of [place] [phone] Ct dical NAL 9 [facility] 2022-01-17 2022-01-17 Outpatient R [facility] [id number] Univers 11:00:00 11:00:00 [facility] 2022-01-17 2022-01-17 Outpatient R [facility] [id number] Univers 11:00:00 11:00:00 [facility] 2022-01-13 2022-01-13 Office [facility] 1.2.840.114 [id number] Univers 15:40:00 16:00:00 Visit Jerod RENEE 350.1.13.10 ity [facility] [place] [phone] Ct dical NAL [address] [place] [address] 2022-01-13 2022-01-13 Outpatient R [facility] [id number] Univers 15:40:00 15:40:00 JEROD zuniga o f [facility] 2022-01-06 2022-01-07 Emergency X [facility] ERT [id number] Univers 23:32:00 05:14:00 TOMAS zuniga [facility] 2022-01-06 2022-01-07 Emergency [facility] 1.2.394.041 [id number] Univers 23:32:00 05:14:00 Tomas RENEE 350.1.13.10 ity of [place] 4.2.7.2.686 [facility] MAGNET [phone] [facility] [address] 2022-01-06 2022-01-07 Emergency X [facility] ERT [id number] Univers 23:32:00 05:14:00 TOMAS zuniga [facility] 2021-12-30 2021-12-30 Outpatient R DIMITRIOS [facility] [id number] Univers 16:00:00 16:00:00 [facility] 2021-12-27 2021-12-27 Office [facility] 1.2.840.114 [id number] Univers 16:00:00 17:00:00 Visit Codey VÍCTOR 350.1.13.10 i ty of [facility] [place].2.[place] [phone] Ct dical [facility] 204 [facility] 2021-12-27 2021-12-27 Outpatient R [facility] [id number] Univers 16:00:00 16:00:00 [facility] 2021-12-26 2021-12-26 Emergency X JERSEY, [facility] ERT [id number] Univers 11:18:00 13:30:00 SHEEBA [facility] 2021-12-26 2021-12-26 Emergency Faulconer, TRAUMA 1.2.840.114 [id number] Univers 11:18:00 13:30:00 [facility] 350.1.13.10 it y [place] [phone] [facility] [address] 2021-12-24 2021-12-24 Orders Doctor JEMAL 1.2.840.114 [id number] Univers 00:00:00 00:00:00 Only Unassigned, ARMANDO 350.1.13.10 ity of [place] [facility] 4.2.7.2.686 Gwyn as [phone] [facility] [address] 2021-12-22 2021-12-22 Outpatient R DENNIS [facility] [id number] Univers 14:30:00 14:30:00 MACRINA [facility] 2021-12-22 2021-12-22 Case BAR Goodman 1.2.840.114 [id number] Univers 00:00:00 00:00:00 Management Marta XAVIER 350.1.13.10 ity of [place].2.[place] [phone] [facility] [address] 2021-12-13 2021-12-13 Emergency X [facility] ERT [id number] Univers 11:25:00 13:18:00 RAFAEL ity of [facility] 2021-12-13 2021-12-13 Emergency [facility] 1.2.403.584 [id number] Univers 11:25:00 13:18:00 Rafael RENEE 350.1.13.10 i ty of [place] [phone] [facility] [address] 2021-12-13 2021-12-13 Orders Doctor JEMAL 1.2.840.114 [id number] Univers 00:00:00 00:00:00 Only Unassigned, ARMANDO 350.1.13.10 ity of [place] [facility] 4.2.7.2.686 Gwyn [id number] [facility] [address] 2021-12-13 2021-12-13 Telephone [facility] 1.2.840.114 [id number] Univers 00:00:00 00:00:00 Quinn A MULTISPEC 350.1.13.10 ity of [place] 4.2.7.2.686 [facility] [place] [phone] [address] [facility] 2021-12-13 2021-12-13 Case [facility] 1.2.840.114 [id number] Univers 00:00:00 00:00:00 Management Quinn A MULTISPEC 350.1.13.10 ity of [place] 4.2.7.2.686 [facility] [place] [id number] [address] [facility] 2021-11-26 2021-11-26 Telephone [facility] 1.2.840.114 [id number] Univers 00:00:00 00:00:00 Quinn A MULTISPEC 350.1.13.10 ity of [place] 4.2.7.2.686 [facility] [place] [phone] [address] [facility] 2021-11-17 2021-11-17 Outpatient Toney OQUENDO [facility] [id number] Univers 09:00:00 09:00:00 JEROD deey o [facility] 2021-11-11 2021-11-11 Telephone [facility] 1.2.840.114 [id number] Univers 00:00:00 00:00:00 Quinn A MULTISPEC 350.1.13.10 ity [facility] 4.2.7.2.686 [facility] [phone] [facility] [place] [address] [facility] 2021-11-04 2021-11-04 Outpatient R [facility] [id number] Univers 08:00:00 08:00:00 QUINN ity o [facility] 2021-11-04 2021-11-04 Outpatient R [facility] [id number] Univers 08:00:00 08:00:00 QUINN ity o [facility] 2021-11-03 2021-11-03 Outpatient R RADIOLOGY [facility] [id number] Univers 08:24:53 23:59:00 ity of [facility] 2021-11-03 2021-11-03 Hospital Radiology [facility] 1.2.840.114 [id number] Univers 08:24:53 23:59:00 Encounter [place] 350.1.13.10 ity of [facility] 4.2.7.2.686 [facility] [phone] [facility] [address] 2021-10-22 2021-10-22 Outpatient R [facility] [id number] Univers 10:18:45 23:59:00 QUINN ity o [facility] 2021-10-22 2021-10-22 [facility] 1.2.071.691 [id number] Univers 10:15:00 23:59:00 Encounter Kai Downey [place] 350.1.13.10 ity of [facility] 4.2.7.2.686 [facility] [phone] [facility] [address] 2021-10-21 2021-10-21 [facility] 1.2.578.598 [id number] Univers 12:56:45 23:59:00 Encounter Kai Downey [place] 350.1.13.10 ity of [facility] 4.2.7.2.686 [facility] [phone] [facility] [address] 2021-10-21 2021-10-21 [facility] 1.2.754.847 [id number] Univers 12:52:56 12:55:00 Encounter Kai Downey [place] 350.1.13.10 ity of [place] 4.2.7.[address] [place] [address] [id number] [facility] [address] 2021-10-21 2021-10-21 Outpatient R [facility] [id number] Univers 00:00:00 12:55:00 QUINN ity o f [facility] 2021-09-28 2021-09-28 Office Rome Brar [facility] 1.2 .840.114 [id number] Univers 13:00:00 13:45:00 Visit Kai Miramontes A MULTISPEC 350.1.13 .10 ity of [place] 4.2.7.2.686 [facility] [place] [phone] [facility] [address] [facility] 2021-09-28 2021-09-28 Hair Spinner, Transplant Social [facility] 1.2.840.114 [id number] Univers 12:36:00 13:21:00 Management Kai Miramontes A MULTISPEC 350.1 .13.10 ity of [place] 4.2.7.2.686 [facility] [place] [phone] [facility] [address] [facility] 2021-09-28 2021-09-28 Mcat Tutor Mcat Tutor, Transplant [facility] 1. 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 Vtc-Lab [facility] 1.2.840.114 [id number] Univers 12:34:58 13:04:58 Visit Kai Miramontes MULTISPEC 350.1.13 .10 ity of [place] 4.2.7.2.686 [facility] [place] [phone] [facility] [address] [facility] 2021-09-28 2021-09-28 Outpatient R [facility] [id number] Univers 13:00:00 13:00:00 QUINN ity o f [facility] 2021-09-28 2021-09-28 Orders Doctor JEMAL 1.2.840.114 [id number] Univers 00:00:00 00:00:00 Only Unassigned, ARMANDO 350.1.13.10 ity of [place] [facility] 4.2.7.2.[address] [id number] [address] 2021-09-21 2021-09-21 Outpatient R BRITTNEY [facility] [id number] Univers 13:30:00 13:30:00 ROME MART ity of [facility] 2021-09-20 2021-09-20 Case [facility] 1.2.840.114 [id number] Univers 00:00:00 00:00:00 Management Kai Downey MULTISPEC 350.1.13.10 ity of [place] 4.2.7.2.686 [facility] [place] [id number] [facility] [address] [facility] 2021-09-15 2021-09-15 Telephone [facility] 1.2.840.114 [id number] Univers 00:00:00 00:00:00 Kai Downey MULTISPEC 350.1.13.10 ity of [place] 4.2.7.2.686 [facility] CENTER [phone] [facility] [address] [facility] 2021-09-08 2021-09-08 Orders Doctor JEMAL 1.2.840.114 [id number] Univers 00:00:00 00:00:00 Only Unassigned, ARMANDO 350.1.13.10 ity of [place] [facility] 4.2.7.2.686 [facility] [id number] [facility] [address] 2021-08-12 2021-08-12 Hospital Guillaume [facility] 1.2.840.114 [id number] Univers 15:50:00 23:59:00 Encounter [facility] 350.1.13.10 ity [facility] 4.2.7.[address] [place] [address] [phone] [facility] Primary & [address] Specialty Care 2021-08-12 2021-08-12 Urgent Ana Maria Galaviz [facility] 1.2.840. 114 [id number] Univers 15:27:03 15:42:03 Care Unknown, [place] 51990.1.13.10 ity [facility] 4.2.7.2.[address] [place] [address] [phone] [facility] & [address] Specialty Care 2021-08-12 2021-08-12 Outpatient R UNKNOWN, [facility] [id number] Univers 15:30:00 15:30:00 ATTENDING ity of [facility] 2021-08-05 2021-08-05 Outpatient THALIA Frankel, HCACL DAYS [id number] [facility] 07:27:00 07:27:00 Dhruvil 64 [facility] 2021-08-05 2021-08-05 Outpatient THALIA Frankel, HCACL DAYS [id number] [facility] 07:27:00 07:27:00 Dhruvil [id number] [facility] 2021-08-04 2021-08-04 Outpatient Marlys, HCACL DAYS [id number] [facility] 13:30:00 13:30:00 Dhruvil [id number] [facility] 2021-07-10 2021-07-10 Emergency Yeni, [facility] 1.2.840.114 [id number] Univers 16:18:00 20:29:00 [facility] 350.1.13.10 it y [facility] 4.2.7.2.[address] [place] [phone] ([facility]) 2021-07-09 2021-07-10 Emergency EM Jeremie, ZURIMN KAITLYNN [id number] [facility] 21:31:00 01:20:00 [facility] 2021-04-30 2021-04-30 Outpatient Saroj Coates [facility] BN0 [id number] [facility] 08:50:00 08:50:00 16 [facility] 2021-04-30 2021-04-30 Outpatient Saroj [facility] DA[facility] [id number] [facility] 02:24:00 02:24:00 24 [facility] 2021-04-29 2021-04-29 Telephone [facility] 1.2.840.114 [id number] 00:00:00 00:00:00 Quinn A MULTISPEC 350.1.13.10 IAL[place] 4.2.7.2.686 CENTER [id number] [place] [address] [facility] 2021-04-29 2021-04-29 Telephone [facility] 1.2.840.114 [id number] [facility] 00:00:00 00:00:00 Quinn A MULTISPEC 350.1.13.10 ity of [place]2.[place].2.686 [place] CENTER [id number] [facility] AND KEVIN [address] [facility] 2021-02-08 2021-02-08 Outpatient [facility] [id number] [facility] 16:30:00 16:30:00 timothy [id number] [facility] 2021-01-30 2021-01-31 Emergency Bull, Yuko S [place] 1.2.84 0.114 [id number] 19:24:00 00:56:00 Mohamud Mann J CENTER 350.1.13.10 4.2.7.2.686 [id number] 014 2021-01-30 2021-01-31 Emergency Bull, Yuko S [place] 1.2.84 0.114 [id number] [facility] 19:24:00 00:56:00 Vascorrine, Mohamud J CENTER 350.1.13.10 it[place] [id number] [facility] [address] 2021-01-23 2021-01-23 Outpatient [facility] [id number] Univers 11:35:00 11:35:00 [facility] 2021-01-23 2021-01-23 Outpatient GCCOVIDV GCCOVIDV [id number] [facility] 00:00:00 00:00:00 V 2021-01-13 2021-01-13 Outpatient R [facility] [id number] Univers 10:15:00 10:15:00 KAI ity o f [facility] 2021-01-02 2021-01-02 Outpatient [facility] [id number] Univers 11:45:00 11[facility]45[facility]-02 2021-01-02 Outpatient GCCOVIDV GCCOVIDV [id number] [facility] 00:00:00 00:00:00 V 2020-12-28 2020-12-28 Transition Bar Mulligan 1.2.840.114 [id number] Univers 00:00:00 00:00:00 of Care Minnie Villavicencio Xavier 350.1.13.10 i ty of [place] 4.2.7.2.686 [facility] [phone] [address] 2020-12-21 2020-12-24 Inpatient [facility] JA[facility]EN [id number] Univers 15:38:00 13:50:00 CAMILO [facility] 2020-12-16 2020-12-16 Outpatient [facility] [id number] Univers 10:15:00 10:15:00 KAI zuniga o [facility] 2020-12-02 2020-12-02 Outpatient R [facility] [id number] Univers 13:00:00 13:00:00 [facility] 2020-12-02 2020-12-02 Telephone [facility] .2.840.114 [id number] 00:00:00 00:00:00 Kai Downey MULTISPEC 350.1.13.10 IALTY 4.2.7.2.686 CENTER [id number] [facility] 2020-12-02 2020-12-02 Telephone [facility] 1.2.840.114 [id number] Univers 00:00:00 00:00:00 Quinn A MULTISPEC 350.1.13.10 [place] [id number] [address] [facility] 2020-11-24 2020-11-24 Case [facility] 1.2.840.114 [id number] 00:00:00 00:00:00 Management Quinn A MULTISPEC 350.1.13.10 IALTY 4.2.7.2.686 [place] [phone] [place] [address] [facility] 2020-11-24 2020-11-24 Case [facility] 1.2.840.114 [id number] Univers 00:00:00 00:00:00 Management Quinn A MULTISPEC 350.1.13.10 [place] [phone] [address] [facility] 2020-11-17 2020-11-17 Telephone [facility] 1.2.840.114 [id number] Univers 00:00:00 00:00:00 Quinn A MULTISPEC 350.1.13.10 [place] [id number] [address] [facility] 2020-11-01 2020-11-02 Emergency [facility] TRAUMA 1.2.840.114 [id number] Univers 20:00:00 02:24:00 , [place]ole CENTER 350.1.13.10 [place] [id number] [facility] [address] 2020-10-21 2020-10-21 Transition Bar Alfaro 1.2.840.114 [id number] Univers 00:00:00 00:00:00 of Care Soila Xavier 350.1.13.10 [place] [id number] [facility] [address] 2020-10-20 2020-10-20 Outpatient Frankel, HCACL DAYS [id number] [facility] 10:15:00 10:15:00 Dhruvil [id number] [facility] 2020-10-20 2020-10-20 Transition Bar Alfaro 1.2.840.114 [id number] Univers 00:00:00 00:00:00 of Care Soila Leviy 350.1.13.10 it y of [place] [phone] [facility] [address] 2020-10-18 2020-10-19 Emergency Harvinder Tala Elvira Darlene 1.2.8 40.114 [id number] [facility] 13:09:00 13:10:00 Quinn Max 350.1.13.10 ity of [facility] 4.2.7.2.686 Gwyn as [phone] [facility] [address] 2020-09-29 2020-09-29 Outpatient Marlys, HCAMN MCTS [id number] [facility] 10:00:00 10:00:00 Dhruvil 30 [facility] 2020-09-17 2020-09-17 Outpatient Fatoumata, HCAMN MCCL [id number] [facility] 09:00:00 09:00:00 Alfredo 28 [facility] 2020-09-09 2020-09-09 Telephone [facility] 1.2.840.114 [id number] [facility] 00:00:00 00:00:00 [place] MULTISPEC 350.1.13.10 ity of [place] 4.2.7.2.686 [facility] [place] [phone] [facility] [place] [address] [facility] 2020-08-15 2020-08-15 Outpatient Balbir, HCACL LABO [id number] 02-23 [facility] 14:17:00 14:17:00 Haydee [facility] 2020-06-25 2020-06-25 [facility] FeJEMAL angulo 1.2.343.570 [id number] [facility] 11:01:00 23:59:00 Encounter Kai ROBERTS 350.1.13.10 ity of [facility] 4.2.7.2.686 [place]wyn as [phone] [facility] [address] 2020-06-25 2020-06-25 Outpatient R [facility] ACO [id number] Univers 00:00:00 00:00:00 QUINN ity o f [facility] 2020-06-25 2020-06-25 Letter [facility] 1.2.840.114 [id number] Univers 00:00:00 00:00:00 (Out) Quinn A MULTISPEC 350.1.13.10 ity of [place] 4.2.7.2.686 [facility] [place] [phone] [address] DIABETES [facility] 2020-06-24 2020-06-24 Telephone [facility] 1.2.840.114 [id number] Univers 00:00:00 00:00:00 Quinn A MULTISPEC 350.1.13.10 ity of [place] 4.2.7.2.686 [facility] [place] [id number] [address] [facility] 2020-04-06 2020-04-07 Emergency [facility] [id number] Univers 22:44:24 01:28:00 JUAN R zuniga [facility] 2020-04-01 2020-04-01 Office [facility] 1.2.765.813 [id number] Univers 14:27:38 15:31:19 Visit Jemal BROWN 350.1.13.10 ity of CARE 4.2.7.2.686 [facility] AT [phone] Ct padmaja SOTELO [address] [place] [address] 2020-04-01 2020-04-01 Outpatient R VERENA [facility] [id number] Univers 15:00:00 15:00:00 JEMAL zuniga of [facility] 2020-04-01 2020-04-01 Transition Bar Alfaro 1.2.840.114 [id number] Univers 00:00:00 00:00:00 of Care Soila Xavier 350.1.13.10 it y of [place] 4.2.7.2.686 [facility] [phone] [facility] [address] 2020-03-27 2020-03-29 [facility] Tomas Pitt [facility] 1.2.840. 114 [id number] Univers 21:42:10 15:30:00 Encounter Jenn Dwyer 350.1.13.10 ity of [place] Dw[place] 4.2.7.2.686 [facility] [phone] [facility] [address] [place] 2020-03-27 2020-03-27 [facility] 1.2.840.114 [id number] Univers 09:42:00 21:41:00 Encounter Jemal Roshan [facility] 350.1.13.10 ity of [facility] [place].2.7.2.[place] [phone] [facility] [address] 2020-03-27 2020-03-27 [facility] 1.2.840.114 [id number] Univers 09:00:00 09:41:00 Encounter Jemal Roberts 350.1.13.10 ity of [facility] 4.2.7.2.686 [place] [phone] [facility] [address] [place] [address] 2020-03-27 2020-03-27 Outpatient R [facility] [id number] Univers 09:28:06 09:28:06 JEMAL ity of [facility] 2020-03-27 2020-03-27 Nurse JEMAL Chand 1.2.840.114 [id number] Univers 00:00:00 00:00:00 Triage Ora ARMANDO 350.1.13.10 it y of [facility] 4.2.7.2.686 [place] [phone] [facility] [address] [place] 2020-03-27 2020-03-27 Telephone [facility] 1.2.840.114 [id number] Univers 00:00:00 00:00:00 Jemal BROWN 350.1.13.10 it[place] AT [phone] Ct padmaja SOTELO [address] [facility] 2020-03-25 2020-03-26 Office [facility] 1.2.527.156 [id number] Univers 13:40:53 10:11:00 Visit Jemal BROWN 350.1.13.10 it[place]2.[place] AT [phone] Ct padmaja SOTELO [address] [facility] 2020-03-26 2020-03-26 Orders Doctor JEMAL 1.2.840.114 [id number] Univers 00:00:00 00:00:00 Only Unassigned, ARMANDO 350.1.13.10 ity of [place] [facility] 4.2.7.2.686 [place] as [phone] [facility] [address] 2020-03-25 2020-03-25 Outpatient R [facility] [id number] Univers 13:59:08 23:59:00 JEMAL ity of [facility] 2020-03-25 2020-03-25 [facility] 1.2.840.114 [id number] Univers 13:59:00 23:59:00 Encounter Jemal BROWN 350.1.13.10 ity of [facility] 4.2.7.2.686 [place] C[place] AT [phone] Ct nancyalba CASTRO [address] [facility] 2020-03-25 2020-03-25 Outpatient R [facility] [id number] Univers 14:20:00 14:20:00 JEMAL ity of [facility] 2020-03-23 2020-03-23 Abstract [facility] 1.2.840.114 [id number] Univers 00:00:00 00:00:00 Indirasebastian Negro SPECIALTY 350.1.13.10 ity of [facility] 4.2.7.2.[place] AT [phone] Ct padmaja SOTELO [address] [facility] 2020-03-20 2020-03-20 [facility] 1.2.840.114 [id number] Univers 00:00:00 00:00:00 Jemal WETZEL 350.1.13.10 it [place] of [place] [phone] [facility] [address] 2020-02-27 2020-02-27 Transition Bar Mulligan 1.2.840.114 [id number] Univers 00:00:00 00:00:00 of Care Minnie Xavier 350.1.13.10 i ty of [place] [id number] [facility] [address] 2020-02-25 2020-02-26 Outpatient [facility] 78525 [id number] Univers 07:55:51 16:21:00 VERO itroshan of [facility] 2020-02-25 2020-02-26 Emergency Tala Blanton [facility] 1.2.8 40.114 [id number] Univers 07:55:51 16:21:00 Vero Elias Víctor 350.1.13.10 ity of [place] 4.2.7.2.686 [facility] [id number] [place] [address] [place] 2020-02-20 2020-02-20 Outpatient Saroj Coates HCANW REF BN0 [id number] [facility] 08:16:00 08:16:00 32 [facility] 2019-12-31 2020-01-01 Emergency Harvinder [facility] 1.2.840.114 [id number] Univers 20:13:57 00:33:00 Tala Renee 350.1.13.10 ity of [place] 4.2.7.2.686 [facility] [phone] [facility] [address] [place] 2019-12-26 2019-12-26 Outpatient R [facility] [id number] Univers 10:29:47 23:59:00 CARLOS ity of [facility] 2019-12-26 2019-12-26 [facility] 1.2.338.233 [id number] Univers 10:29:00 23:59:00 Encounter Carlos Lloydton 350.1.13.10 ity of [place] 4.2.7.2.686 [facility] [id number] [facility] [address] 2019-12-04 2019-12-04 Hospital Radiology [facility] 1.2.840.114 [id number] Univers 08:51:00 23:59:00 Encounter [facility] 350.1.13.10 ity of [place] 4.2.7.2.686 [facility] [phone] [facility] [address] 2019-12-04 2019-12-04 Outpatient R [facility]Y [facility] [id number] Univers 08:33:28 08:50:00 ity of [facility] 2019-12-04 2019-12-04 Hospital Radiology [facility] 1.2.840.114 [id number] Univers 08:33:00 08:50:00 Encounter [facility] 350.1.13.10 ity of [place] 4.2.7.2.686 [facility] [phone] [facility] [address] 2019-12-04 2019-12-04 Orders Doctor JEMAL 1.2.840.114 [id number] Univers 00:00:00 00:00:00 Only Unassigned, ARMANDO 350.1.13.10 ity of [place] [facility] 4.2.7.2.686 Gwyn as [phone] [facility] [address] 2019-11-26 2019-11-26 [facility] 1.2.840.114 [id number] Univers 13:07:34 16:34:00 Folchika F Víctor 350.1.13.10 ity of [place] 4.2.7.2.686 [facility] [id number] [facility] [address] 2019-11-26 2019-11-26 Orders Doctor JEMAL 1.2.840.114 [id number] Univers 00:00:00 00:00:00 Only Unassigned, ARMANDO 350.1.13.10 ity of [place] [facility] 4.2.7.2.686 [place]wyn as [id number] [address] 2019-11-21 2019-11-21 Orders Doctor JOAQUIN 1.2.840.114 [id number] Univers 00:00:00 00:00:00 Only Unassigned, ARMANDO 350.1.13.10 ity of [place] [facility] 4.2.7.2.686 [place] [id number] [address] 2019-11-20 2019-11-20 Transition Bar Zelaya 1.2.840.114 [id number] Univers 00:00:00 00:00:00 of Care Lizz Leviy 350.1.13.10 it y of [place] [phone] [facility] [address] 2019-11-18 2019-11-19 Outpatient X [facility] [id number] Univers 23:47:40 18:50:00 RAWAN ity of [facility] 2019-11-18 2019-11-19 Emergency Michael Meza 1.2.840. 114 [id number] Univers 23:47:40 18:50:00 Valentino Freeman Armando 350.1.13.10 ity of [facility] 4.2.7.2.686 [place] [id number] [facility] [address] 2019-10-25 2019-10-25 [facility] [id number] Univers 08:15:00 08:46:34 CHARISSE donnelly [facility] 2019-08-23 2019-08-23 [facility] [id number] Univers 11:02:00 16:14:00 CHARISSE donnelly delmer [facility] 2019-07-26 2019-07-26 Hospital Radiology [facility] 1.2.840.114 [id number] Univers 10:19:00 23:59:00 Encounter [facility] 350.1.13.10 ity of [place] 4.2.7.2.686 [facility] s [place] [id number] [address] 2019-07-26 2019-07-26 [facility] Radiology [facility] 1.2.840.114 [id number] Univers 10:18:08 10:18:08 Encounter [place] 350.1.13.10 ity of [place] 4.2.7.2.686 [facility] [place] [id number] [address] 2019-07-26 2019-07-26 Office [facility] 1.2.840.114 [id number] Univers 09:14:38 09:45:25 Visit Charisse Renee 350.1.13.10 ity of [place] 4.2.7.2.686 [facility] [phone] [facility] [address] [facility] 2019-07-26 2019-07-26 Outpatient R TED [facility] [id number] Univers 08:00:00 09:45:25 CHARISSE dowell [facility] 2019-07-19 2019-07-19 Emergency [facility] 1.2.132.580 [id number] [facility] 02:20:47 04:23:00 Tomas Lloydton 350.1.13.10 ity of [place].2.7.2.686 [place] [id number] [facility] [address] 2019-07-02 2019-07-02 [facility] 1.2.840.114 [id number] Univers 08:48:16 20:21:43 Visit Charisse Víctor 350.1.13.10 it[place] of [place] Profess[place] [phone] Ct [facility] 205 [facility] 2019-07-02 2019-07-02 [facility] 1.2.840.114 [id number] Univers 00:00:00 00:00:00 (Out) Gaston Víctor 350.1.13.10 i ty of [place] [phone] [facility] 205 [facility] 2019-06-17 2019-06-17 [facility] 1.2.840.114 [id number] Univers 12:58:27 23:59:00 Encounter Dayday Joyner Cardio Vascular [facility] 3 50.1.13.10 ity of [place] 4.2.7.2.686 [place] [id number] [facility] [address] [place] 2019-06-17 2019-06-17 Orders Doctor JEMAL 1.2.840.114 [id number] Univers 00:00:00 00:00:00 Only Unassigned, ARMANDO 350.1.13.10 ity of [place] [facility] 4.2.7.2.686 Gwyn as [phone] [facility] [address] 2019-06-13 2019-06-13 [facility] 1.2.840.114 [id number] Univers 12:42:36 23:59:00 Encounter Ar, Adc Cardio Vascular [facility] 3 50.1.13.10 ity of [place] 4.2.7.2.686 [place] [phone] [facility] [address] 2019-06-13 2019-06-13 Orders Doctor JEMAL 1.2.840.114 [id number] Univers 00:00:00 00:00:00 Only Unassigned, ARMANDO 350.1.13.10 ity of [place] [facility] 4.2.7.2.686 [place] [id number] [address] 2019-06-05 2019-06-05 [facility] 1.2.840.114 [id number] Univers 00:00:00 00:00:00 Management Charisse Renee 350.1.13.10 it[place] [phone] Ct dical [facility] [address] [facility] 2019-04-26 2019-04-26 Outpatient R RADIOLOGY [facility] [id number] Univers 00:00:00 23:59:00 ity [facility] 2019-04-19 2019-04-19 [facility] [id number] Univers 08:15:00 08:23:02 CHARISSE dowell [facility] 2019-04-16 2019-04-16 Outpatient R RADIOLOGY [facility] [id number] Univers 00:00:00 23:59:00 [facility] 2019-03-26 2019-03-31 Inpatient X MONTY, [facility] JAIDEN [id number] Univers 23:28:57 13:00:00 ALEXY [facility] 2019-01-03 2019-01-03 Outpatient R DOLLY, [facility] [id number] Univers 08:00:00 08:00:00 VIOLETA [facility] 2019-01-01 2019-01-01 [facility] [id number] Univers 09:39:08 10:54:00 CHARISSE dowell [facility] 2018-07-12 2018-07-12 Outpatient [facility] [id number] Memoria 15:45:00 21:00:00 toney Rivas 00 l [facility] 2018-07-12 2018-07-12 Outpatient [facility] [id number] Memoria 15:45:00 21:00:00 toney Rivas 00 l [facility] 2018-07-12 2018-07-12 Outpatient NORMA Saleh [facility] [id number] 10:45:00 16:00:00 Charly Rodriges 2018-04-24 2018-04-24 Orders Doctor JOAQUIN 1.2.840.114 [id number] Univers 00:00:00 00:00:00 Only Unassigned, ARMANDO 350.1.13.10 ity of [place] [facility] 4.2.7.2.686 Gwyn as [phone] [facility] [address] Results Test Description Test Time Test Comments Results Result Comments Source ECG Pre/Post Op 2022-05-13 19:46:18 Test Item Value Reference Range Interpretation Comme nts Ventricular rate (test code = 253) Atrial rate (test code = 255) [place] interval (test code = 266) QRSD interval (test code = 260) QT interval (test code = 264) QTC interval (test code = 265) P axis 1 (test code = 267) QRS axis 1 (test code = 268) T wave axis (test code = 270) EKG impression (test code = 273) Normal sinus rhythm-Rightward axis-Nonspecific intraventricular block-Abnormal ECG-No previous ECGs available- [facility] [id number] 18:32:00 Test Item Value Reference Range Interpretation Comments POC glucose (test code 82 mg/dL 65-99 Opera tor Name: Keaton = [id number]) Collette RAOevice ID : [id number] able: COUNTS INCLUDE 234 [facility] AT [facility] Notified RN [facility] [id number] 20:36:01 Test Item Value Reference Range Interpretation Comments Hepatitis C Ab (test code = Reactive Nonreactive A 60298-1) ROSE (test code = ROSE) Local Bulk Driver ID - BS Lab Interpretation (test Abnormal code = 12577-1) [facility] [id number] 20:36:01 Test Item Value Reference Range Interpretation Comments HEPATITIS C ANTIBODY (BEAKER) (test Reactive Nonreactive A code = 367) Local Bulk Driver ID - BSHepatitis B core antibody, [id number] 20:35:17 Test Item Value Reference Range Interpretation Comments Hep B Core Total Ab (test Nonreactive Nonreactive code = 55006-6) ROSE (test code = ROSE) Local Bulk Driver ID - BS Lab Interpretation (test Normal code = 76670-3) [facility] CenterHEEPHRA[facility]ITALTIS B CORE ANTIBODY, [id number] 20:35:17 Test Item Value Reference Range Interpretation Comments HEPATITIS B CORE TOTAL ANTIBODY Nonreactive Nonreactive (BEAKER) (test code = 497) Local Bulk Driver ID - BSHepatitis B surface [id number] 20:35:12 Test Item Value Reference Range Interpretation Comments Hepatitis B surface Nonreactive Nonreactive antigen (test code = 5195-3) ROSE (test code = ROSE) Specimen is considered negative for HBsAg. Lab Interpretation (test Normal code = 80942-2) [facility] Center[facility] B surface [id number] 20:35:12 Test Item Value Reference Range Interpretation Comments Hep B S Ab (test code 37.5 See_Comment H [Auto mated = 59119-9) message] The system which generated this result transmit darrion reference range : <8.0 mIU/mL. Th e reference range was not used to interpret this result as normal/abnormal . ROSE (test code = ROSE) Local Bulk Driver ID - BS Lab Interpretation Abnormal (test code = 46944-7) [facility] Center[facility] SURFACE [id number] 20:35:12 Test Item Value Reference Range Interpretation Comments HEPATITIS B SURFACE ANTIGEN (2) Nonreactive Nonreactive (BEAKER) (test code = 2585) Specimen is considered negative for HBsAg.HEPATITIS B SURFACE [id number] 20:35:12 Test Item Value Reference Range Interpretation Comments HEPATITIS B SURFACE ANTIBODY 37.5 mIU/mL <8.0 H (BEAKER) (test code = 647) Local Bulk Driver ID - BSHEPATITIS B SURFACE [id number] 23:25:59 Test Item Value Reference Range Interpretation Comments HEPATITIS B SURFACE ANTIBODY 33.0 mIU/mL <8.0 H (BEAKER) (test code = 647) Local Bulk Driver ID - ADMINHEPATITIS B SURFACE [id number] 23:25:57 Test Item Value Reference Range Interpretation Comments HEPATITIS B SURFACE ANTIGEN (2) Nonreactive Nonreactive (BEAKER) (test code = 2585) Specimen is considered negative for HBsAg.GLUCOSE [id number] 11:50:00 Test Item Value Reference Range Interpretation Comments GLUCOSE BEDSIDE (test 84 MG/DL 70-110 N [facility] med by certified code = GLUBED) spinning operator at [facility] BASIC METABOLIC [id number] 09:20:00 Test Item Value Reference Range Interpretation [...] = 6.5 mg/dL 8.0-10.5 L CA) GLUCOSE [id number] 09:04:00 Test Item Value Reference Range Interpretation Comments GLUCOSE BEDSIDE (test 79 MG/DL 70-110 N [facility] med by certified code = GLUBED) spinning operator at [facility] COVID 19 Asymptomatic IH [id number] 15:30:00 Test Item Value Reference Range Interpretation [...] moderate, high or waivedcomplexit y tests. PROTHROMBIN [id number] 14:36:00 Test Item Value Reference Range Interpretation [...] (to prevent recurrent infar ct). THROMBOPLASTIN TIME [id number] 14:36:00 Test Item Value Reference Range Interpretation Comments THROMBOPLASTIN TIME 33.9 Seconds 25.0-39.5 N Therape utic Range: PARTIAL (test code = 50.4 - 88.3 Seconds PTT) Effective 02/19/2019 BASIC METABOLIC [id number] 14:28:00 Test Item Value Reference Range Interpretation [...] 8.3 mg/dL 8.0-10.5 N CA) CBC W/AUTO [id number] 14:05:00 Test Item Value Reference Range Interpretation [...] MANUAL DIFF REQUIRED (test code NO = FALGUNI) - XR CHEST 2 [id number] 00:00:00 [facility] : 1970 Sex: M FAX: Rosmery Cohen MD [place]: St: PRE FAX: Beth Correia MD [phone] FAX: Tamika Hadley Name: VLADIMIR MAGUIRE [facility] : 1970 Age/S: 50/M [address] [place] [address] Unit #: [id number] Loc: [place] [address] 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 IMPRESSION: No acute cardiopulmonary process. at 8683 Reported and signed by: Mason Pop M.D. CC: Rosmery Braun; Beth Frankel MD; Tamika Hadley NP Technologist: RT Supriya(Toney) Trnscrd Date/Time/By: 08/04/2021 (145) : By: [email or web address] Orig Print D/T: S: 08/04/2021 (0424) PAGE 1 Signed Report- XR KNEE 3 V [id number] 23:20:00 [facility] : 1970 Sex: M FAX: Rosmery Cohen MD [place]: St: REG FAX: Gisel Dwyer MD Name: VLADIMIR MAGUIRE [facility] : 1970 Age/S: 50/M [address] Unit #: [id number] Loc: [address] Phys: [place] [address] Acct: [id number] Dis Date: Status: REG ER PHONE #: [phone] Exam Date: FAX #: [phone] Reason: fall injury EXAMS: CPT CODE: [id number] XR KNEE 3 [place] [address] Examination: Bilateral knees 3 views Location code: H60 Comparison: None Discussion: Clinical history is rem arkable for trauma. Fell. Pain. Patient is status [...] Reported and signed by: HELEN WALLACE CC: Rosmery Braun MD;Gisel Dwyer MD Technologist: Lisa Haines Trntnrd Date/Time/By: 07/09/2021 (2320) : By: [email or web address] PAGE 1 Signed Report FAX: Rosmery Cohen MD [place]: St: REG FAX: Gisel Dwyer MD Name: VLADIMIR MAGUIRE [facility] : 1970 Age/S: 50/M [facility] [place] Unit #: [id number] Loc: [address].ERS[address] [place], [place]: [place] [address] Acct: [id number] Dis Date: Status: REG ER PHONE #: [phone] Exam Date: 07/09/2021 2315 FAX #: [phone] Reason: fall injury EXAMS: CPT CODE: [id number] KNEE 3 [place] [address] <Continued> Orig Print D/T: S: 07/09/2021 (4053) PAGE 2 Signed Report- XR FOREARM 2 VIEWS [id number] 23:18:00 [facility] : 1970 Sex: M FAX: Rosmery Cohen MD [place]: St: [facility] FAX: Gisel Dwyer MD Name: VLADIMIR MAGUIRE [facility] : 1970 Age/S: 50/M [address] Unit #: [id number] Loc: E.ERS[address] [place], [place]: [place] [address] Acct: [id number] Dis Date: Status: REG ER PHONE #: [phone] Exam Date: 15 FAX #: [phone] Reason: fall injury EXAMS: CPT CODE: [id number] XR FOREARM 2 [place] [address]Jmsdqgzxahq: Right hand 3 views, right forearm 2 views and right humerus 2 views Location code: H60 C omparison: None Discussion: Clinical history is remarkable for [...] Reported and signed by: HELEN WALLACE CC: Rosmery Braun MD; Gisel Dwyer MD Technologist: Lisa Haines [facility] Date/Time/By: 07/09/2021 (3918) : By: [email or web address] PAGE 1 Signed Report FAX: Rosmery Cohen MD [place]: EM S t: REG FAX: Gisel Dwyer MD Name: PRESLEYVLADIMIR [facility] : 1970 Age/S: 50/M [address] [facility] Unit #: [id number] Loc: [address] Phys: [place] [address] Acct: [id number] Dis Date: Status: REG ER PHONE #: [phone] Exam Date: 07/09/20212314 FAX #: [phone] Reason:fall injury EXAMS: CPT CODE: [id number] XR [place] [address] [place] [address] <Continued> Orig Print D/T: S: 07/09/2021 (1117) PAGE 2 Signed Report- XR HUMERUS 2 + V RT 2021-07-09 23:18:00 [facility] : 1970 Sex: M FAX: Rosmery Cohen MD [place]: St: REG FAX: Gisel Dwyer MD Name: VLADIMIR MAGUIRE [facility] : 1970 Age/S: 50/M [address] [facility] Unit #: [id number] Loc: [address] Phys: [place] [id number] Acct: [id number] Dis Date: Status: REG ER PHONE #: [phone] Exam Date: 07/09/2021 2315 FAX #: [phone] Reason: fall injury EXAMS: CPT CODE: [id number] XR HUMERUS 2 + V RT [id number]: Right hand 3 views, right forearm 2 views and right humerus 2 views Location code: [id number]: None Discussion: Clinical history is remarkable for [...] Reported and signed by: HELEN WALLACE CC: Rosmery Braun MD; Gisel Dwyer MD Technologist: Lisa Haines Trnscrd Date/Time/By: 07/09/2021 (0215) : By: Margaux.VR5 PAGE 1 Signed Report FAX: Rosmery Cohen MD [place]: St: REG FAX: Gisel Dwyer MD Name: VLADIMIR MAGUIRE [facility] : 1970 Age/S: 50/M [address] [facility] Unit #: [id number] Loc: [address] [place]: [place] [address] Acct: [id number] Dis Date: Status: REG ER PHONE #: [phone] Exam Date: 07/09/2021 2315 FAX #: [phone] Reason: fall injury EXAMS: CPT CODE: [id number] XR HUMERUS 2 + V RT 78436 <Continued> Orig Print D/T:S: 07/09/2021 (2321) PAGE 2 Signed Report- XR HAND 3 + V [id number] 23:18:00[facility] DOB: 1970 Sex: M FAX: Rosmery Cohen MD [place]: St: REG FAX: Gisel Dwyer MD Name: VLADIMIR MAGUIRE [facility] : 1970 Age/S: 50/M [address] [facility] Unit #: [id number] Loc: [address] [place]: [place] [address] Acct: [id number] Dis Date: Status: REG ER PHONE #: [phone] Exam Date: 07/09/20212314 FAX #: [phone] Reason: fall injury EXAMS: CPT CODE: [id number] XR HAND 3 + V RT 62797 Examination: Right hand 3 views, right forearm [...] Reported and signed by: HELEN WALLACE CC: Rosmery Braun MD; Gisel Dwyer MD Technologist: Lisa Haines Trnscrd Date/Time/By: 07/09/2021 (2505) : By: [email or web address] PAGE 1 Signed Report FAX: Rosmery Cohen MD [place]: St: REG FAX: Gisel Dwyer MD Name: VLADIMIR MAGUIRE [facility] : 1970 Age/S: 50/M [address] [facility] Unit #: [id number] Loc: [address] [place]: [place] [address] Acct: [id number] Dis Date: Status: REG ER PHONE #: [phone] Exam Date: 07/09/20212314 FAX #: [phone] Reason: fall injury EXAMS: CPT CODE: [id number] XR HAND 3 + V RT 61132 <Continued> Orig Print D/T: S: 07/09/2021 (4278) PAGE 2 Signed ReportSURGICAL [id number] 17:11:00 Test Item Value Reference Range Interpretation Comments SURGICAL SPECIMENS (test code = SURG) RUN DATE: 05/03/21 [facility] - LAB PAGE 1 RUN TIME: 206 Specimen Inquiry RUN USER: INTERFACE PATIENT: VLADIMIR MAGUIRE LOC: [place] U #: [id number] AGE/SX: 50/M ROOM: RE04/30/21[facility] DR: Saroj Coates MD (GEN EDITA : 66 BED: DIS: STATUS: [facility] TLOC: SPEC #: [id number] RECD: 04/30/21 STATUS: [facility] #: [id number] BENEDICTO: 04/30/21 [facility] DR: Saroj Coates MD (GEN SURG) ENTERED: 04/30/21 SP TYPE: SURG OTHR DR: Rosmery Braun MD ORDERED: 00614, PATH SPEC, H E STAIN HISTOLOGY: TISSUE ID BLK PCS GHADA LEV / PROCEDURE DISPOSITION ____ ___ ___ ___ ___ PILONIDAL CYST A 1 1 TISSUES: A. PILONIDAL CYST - Pilonidal Cyst CLINICAL HISTORY Pilonidal cyst/abscess. FINAL DIAGNOSIS PILONIDAL CYST, EXCISION: - SKIN WITH SINUS TRACT LINED BY INFLAMED GRANULATION TISSUE, CONSISTENT WITH PILONIDAL CYST CPT 72624 GROSS DESCRIPTION Received in formalin labeled with the patient's name and "pilonidal cyst/abscess" are two irregularly-shaped fragments of skin and underlying soft tissue, upon reapproximation measuring 4.0 x 3.5 x 3.0 cm. The skin (3.0 x 1.0 cm) is grossly unremarkable sandoval-coker. The cut surface shows an abscess cavity, 1.2 cm in diameter. Breastfeeding Program Coordinator sections are submitted in one cassette. CM/ph MICROSCOPIC DESCRIPTION PERFORMED - Signed SIGNATURE ON FILE Mel Cleaning MD 05/03/21 1711 END OF REPORT BASIC METABOLIC [id number] 07:30:00 Test Item Value Reference Range Interpretation [...] BACK AND SHAYNA TorresLAB.IX, on 04/30/21, @ 9034.Please not e: New Reference Range Dec 2020 CALCIUM (test code = 6.6 mg/dL 8.7-10.4 L Please note: New [place]) Reference Range Dec 2020 COVID Asymptomatic IH [id number] 13:16:00 Test Item Value Reference Interpretation Comments [...] performancechar acteristics were determined by [facility]. Thi s test has notbeen FDA [...] setting? Unknown? NoAge at collection: YBASIC METABOLIC [id number] 12:02:00 Test Item Value Reference Range Interpretation [...] CREAT) reported toFir st Name:SALLY Last Name:DOMI CAMARENASOFIA READ BACK AND VERIFIEDby BEBETO ZAMBRANO, on 04/27/21, @ 1202.Please not e: New Reference Range Dec 2020 CALCIUM (test code = 6.3 mg/dL 8.7-10.4 L Please note: New CA) Reference Range Dec 2020 BASIC METABOLIC [id number] 11:50:00 Test Item Value Reference Range Interpretation [...] CA) Reference Range Dec 2020 CBC W/AUTO [id number] 11:25:00 Test Item Value Reference Range Interpretation [...] = BA#) 0.05 x10 3/uL 0.0-0.20 N [id number] 14:50:00 Test Item Value Reference Range Interpretation Comments GLUBED (test code = GLUBED) 109 MG/DL 70-105 H [id number] 08:36:00 Test Item Value Reference Range Interpretation Comments POTASSIUM (test code = K) 4.9 mmol/L 3.5-5.1 N COVID Asymptomatic IH [id number] 10:58:00 Test Item Value Reference Interpretation Comments [...] i ts performancechar acteristics were determined by [facility]. Thi s test has notbeen FDA [...] setting? Unknown? NoAge at collection: YBASIC METABOLIC [id number] 12:16:00 Test Item Value Reference Range Interpretation [...] CREAT) reported toFir st Name:ILANA Mackey Name:LAZARO MATHIS READ BACK AND VERIFIEDby BEBETO ZAMBRANO, on 03/29/21, @ 1216.Please not e: New Reference Range Dec 2020 CALCIUM (test code = mg/dL 8.7-10.4 CA) BASIC METABOLIC [id number] 12:16:00 Test Item Value Reference Range Interpretation [...] = CREAT) reported toFir st Name:ILANA Mackey Name:KINGHTRESU LTS READ BACK AND VERIFIEDby BEBETO ZAMBRANO, on 03/29/21, @ 9124.Please not e: New Reference Range Dec 2020 CALCIUM (test code = 6.8 mg/dL 8.7-10.4 L Please note: New CA) Reference Range Dec 2020 CBC W/AUTO [id number] 11:54:00 Test Item Value Reference Range Interpretation [...] 0.0-0.20 N - CT ABD PELVIS W/O [id number] 16:57:00 [facility] 1970 Sex: MName: VLADIMIR MAGUIRE [facility] : 1970 Age/S: 50 / M [address] [place] [address] Unit #: [id number] Loc: [place] [address] Phys: Beth Frankel MD Acct: [id number] Dis Date: Status: REG CLI PHONE #: [phone] Exam Date: 02/08/2021 161 FAX #: [phone] Reason: T85.691A, MALFUNCTION OF PD CATHETER. EXAMS: CPT CODE: [id number] CT ABD PELVIS W/O CONT 67[address] CT abdomen and pelvis without contrast dated 02/08/2021 INDICATION: T 85.691A. Malfunction of peritoneal dialysis catheter. COMPARISON: CT abdomen dated 10/24/2020 TECHNIQUE: A CT of the abdomen pelvis was performed using helical images from the thoracic outlet through the pubic symphysis with subsequent sagittal and coronal recons truction. IV CONTRAST: None. GI CONTRAST: None. CT [...] absence of bowel contrast. No gross abnormalities ofthe stomach or duodenum are identified. No small bowel dilatation is present to indicate acute obstruction. The appendix is identified and does not appear acutely inflamed. The colon demonstrates no hieu dence of diverticular disease or acute inflammatory wall thickening. PERITONEUM: A small volume of subhepatic free intraperitoneal fluid is identified. There is no evidence of free intraperitoneal air.A peritoneal dialysis catheter is identified to be coiled in the pelvis. No loculated fluid collections are identified at the dialysis catheter tip. RETROPERITONEUM: The abdominal aorta is normal in caliber. Extensive vascular calcification is noted. There is no evidence of PAGE 1 Signed Report (CONTINUED) Name: VLADIMIR MAGUIRE [facility] [place] : 1970 Age/S: 50 / M [address] [place] [address] BlvdUnit #: [id number] Loc: [place] [address] Phys: Beth Frankel MD Acct: [id number] Dis Date: Status: REG CLI PHONE #: [phone] Exam Date: 02/08/2021 1617 FAX #: [phone] Reason: T85.691A, MALFUNCTION OF PD CATHETER. EXAMS: CPT CODE: [id number] CT ABD PELVIS W/O CONT 38883 (Continued) retroperitoneal mass or adenopathy. PELVIS: Bladder assessment is limited by low bladder volume. No enlarged pelvic lymph nodes are identified. LOWER CHEST: The lung bases appear clear of acute disease. Leftdiaphragmatic elevation is noted with scarring or atelectasis in the left base. ADDITIONAL FINDINGS:None. IMPRESSION: 1. No acute CT abnormalities of the abdomen or pelvis are detected. SL: 131 Elec tronically Signed by Octavio Harris on 02/08/2021 at 1657 Reported and signed by: Chuck Harris M.D. 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 [facility] BASIC METABOLIC [id number] 13:08:00 Test Item Value Reference Range Interpretation [...] code = 8.4 mg/dL 8.0-10.5 N CA) [id number] 13:01:00 Test Item Value Reference Range Interpretation Comments GLUBED (test code = 66 MG/DL 70-110 L Performe d by certified GLUBED) spinning operator at [facility] CBC W/AUTO [id number] 12:58:00 Test Item Value Reference Range Interpretation [...] (test code NO = MDIFF) CBC W/AUTO [id number] 12:55:00 Test Item Value Reference Range Interpretation [...] (test code = MDIFF) Novel Coronavirus 2018 [id number] 06:55:00 Test Item Value Reference Range Interpretation [...] for the identification of SARS-CoV-2 RNA usingthe [employer] Sy stem under the FDA Emergen cy UseAuthorizatio n. The testing is perf ormed by bladimir mendoza in the procedures for the [employer] M2000 molecular diagnostic SARS-CoV-2 assa y in vitro. BASIC METABOLIC [id number] 12:58:00 Test Item Value Reference Range Interpretation [...] = 9.2 mg/dL 8.0-10.5 N CA) PROTHROMBIN [id number] 12:47:00 Test Item Value Reference Range Interpretation [...] - Acute Myocardia l Infarction (to prevent recurre nt infarct). THROMBOPLASTIN TIME [id number] 12:47:00 Test Item Value Reference Range Interpretation Comments THROMBOPLASTIN TIME 36.5 Seconds 25.0-39.5 N Therape utic Range: PARTIAL (test code = 50.4 - 88.3 Seconds PTT) Effective 02/19/2019 CBC W/AUTO [id number] 12:35:00 Test Item Value Reference Range Interpretation [...] code NO = MDIFF) - XR ABDOMEN [id number] 15:08:00 [facility] : 1970 Sex: M FAX: Rosmery Cohen MD [place]: St: PRE FAX: Beth Correia MD [phone] Name: VLADIMIR MAGUIRE [facility] : 1970 Age/S: 50/M [address] [facility] Last Guide Unit #: [id number] [place]: [place]: [place] [address] Acct: [id number] Dis Date: Status: PRE CLI PHONE #: [phone] Exam Date: 11/26/20206 FAX #: [phone] Reason: PERITONEAL DILAYSIS CATHETER DYSFUNCTION EXAMS: CPT CODE: [id number] XR ABDOMEN 2V 85851 Location code: H5 Abdomen Two Views Indication: PERITONEAL DILAYSIS CATHETER DYSFUNCTION Comparison: none. Findings: Flat and upright views. Organ silhouettes arenot remarkable. Intestinal gas pattern is normal in appearance. No evidence of free air. No abnormalmasses or calcifications. No evidence of free air [...] M.D. PAGE 1 Signed Report (CONTINUED) FAX: Rosmery Cohen MD [place]: St: PRE FAX: Beth Correia MD [phone] Name: VLADIMIR MAGUIRE [facility] : 1970 Age/S: 50/M [address] [facility] Unit #: [id number] Loc: [place], [place]: [place] [address] Acct: [id number] Dis Date: Status: PRE CLI PHONE #: [phone] Exam Date: 11/26/20201455 FAX #: [phone] Reason: PERITONEAL D ILAYSIS CATHETER DYSFUNCTION EXAMS: CPT CODE: [id number] XR ABDOMEN 2V 31327 <Continued> CC: Rosmery Braun MD; Beth Frankel MD Technologist: SOHAIL Silvascrd Date/Time/By: 11/26/2020 (1508) : By: Tracy PAGE 2 Signed Report FAX: Rosmery Cohen MD [place]: St: PRE FAX: Beth Correia MD [phone] Name: VLADIMIR MAGUIRE [facility] : 1970 Age/S: 50/M [address] [place] [facility] Unit #: [id number] Loc: [place], [place]: [place] [address] Acct: [id number] Dis Date: Status: PRE CLI PHONE #: [phone] Exam Date: 11/26/2020 145 FAX #: [phone] Reason: PERITONEAL DILAYSIS CATHETER DYSFUNCTION EXAMS: CPT CODE: [id number] XR ABDOMEN 2V 02972 <Continued> Orig Print D/T: S: 11/26/2020 (9794) PAGE 3 Signed Report- XR ABDOMEN 1 [id number] 14:29:00 [facility] : 1970 Sex: M FAX: Rosmery Cohen MD [place]: St: REG Name: VLADIMIR MAGUIRE [facility] : 1970 Age/S: 50/M [address] [employer] Unit #: [id number] Loc: [place], [place] Phys: EDDOC, [place] [address] Acct: [id number] Dis Date: Status: REG CLI PHONE #: [phone] Exam Date: 11/13/2020 1352 FAX #: [phone] Reason: PD CATH MALFUNCTION EXAMS: CPT CODE: [id number] XR ABDOMEN 1 V 24633 EXAM: ABDOMEN ONE VIEW INDICATION: PD CATH MALFUNCTION LOCATION: B2 COMPARISON: October 21, 2020 TECHNIQUE: AP view of the abdomen. FINDINGS: The bowel gas pattern is normal. No pneumoperitoneum is identified. Thereis a catheter which is looped in the right lower quadrant with a possible kink. The tip of the catheter was previously in the lower pelvis. The osseous structures are unremarkable. IMPRESSION: Intervalmigration of the drainage catheter with the tip looped in the right lower quadrant rather than in the pelvis. There is a possible kink. at 4669 Reported and signed by: Donna Mullins M.D. CC: Rosmery Braun MD Technologist: ANA BARRETO Trnscrd Date/Time/By: 11/13/2020 (9109) : By: 16 PAGE 1 Signed Report FAX: Rosmery Cohen MD [place]: St: REG Name: VLADIMIR MAGUIRE [facility] : 1970 Age/S: 50/M [address] [employer] Unit #: [id number] Loc: [place], [place] Phys: EDDOC, GENERIC FOR EDM 25842 Acct: [id number] Dis Date: Status: REG CLI PHONE #: [phone] Exam Date: 11/13/2020 1352 FAX #: [phone] Reason: PD CATH MALFUNCTION EXAMS: CPT CODE: [id number] XR ABDOMEN 1 V 10379 <Continued> Orig Print D/T: S: 11/13/2020 (3002) PAGE 2 Signed Report [id number] 08:30:00 Test Item Value Reference Range Interpretation [...] may amelia y by method. BASIC METABOLIC [id number] 17:02:00 Test Item Value Reference Range Interpretation [...] code = 8.5 mg/dL 8.0-10.5 N CA) [id number] 17:02:00 Test Item Value Reference Range Interpretation [...] y by method. - XR CHEST 1 [id number] 16:17:00 [facility] 1970 Sex: M FAX: Tray Donald [phone] [place]: St: ADM FAX: Rosmery Cohen MD Name: VLADIMIR MAGUIRE [facility] [place] [facility] : 1970 Age/S: 50/M [address] Unit #: [id number] Loc: [address] [place] [address] Phys: DOES_NOT KNOW Acct: [id number] Dis Date: Status: ADM IN PHONE #: [phone] Exam Date: 10/26/2020 1616 FAX #: [phone] Reason: PAIN EXAMS: CPT CODE: [id number] XR CHEST 1 V 43853 XR CHEST 1 VIEW HISTORY: PAIN. COMPARISON: CXR 10/25/2020. FINDINGS: Expiratory portable exam. The heart and vascular markings are stable. Stable elevation of the left hemidiaphragm with stable left basilaropacity suggestive of atelectasis. Lung murray are otherwise stable. No significant skeletal abnormality. No pleural abnormality. IMPRESSION: Elevated left hemidiaphragm with stable left basilar opacity suggestive of atelectasis. at 1617 Reported and signed by: Jose R Rueda M.D. CC: Tray Linder MD; Rosmery Braun Technologist: RT Peter(R) Trnscrd Date/Time/By: 10/26/2020 (4692) : By: [email or web address] Orig Print D/T: S: 10/26/2020 (3080) PAGE 1 Signed Report- US ABDOMEN [id number] 14:11:00 [facility] 1970 Sex: M Name: VLADIMIR MAGUIRE [facility] [place] [facility] : 1970 Age/S: 50 / M [address] [place] [address] Blvd Unit #: [id number] Loc: [place] [address] Phys: Harpal Zamarripa MD Acct: [id number] Dis Date: Status: ADM IN PHONE #: [phone] Exam Date: 10/26/2020 1157 FAX #: [phone] Reason: POSSIBLE PERTITONEALFLUID INFECTION, RULE OUT. EXAMS: CPT CODE: [id number] US ABDOMEN LTD 42685 CLINICAL HISTORY: Possible peritoneal fluid infection,. Do time ultrasound examination of all 4 quadrants of the abdomen and pelvis was performed. There is no evidence of free fluid in the peritoneal cavity on provided images.IMPRESSION: No evidence of free peritoneal fluid. Electronically Signed by Octavio Frankel on at 1411 Reported and signed by: Dung Frankel M.D. CC: Harpal Zamarripa MD; Tray Linder MD; Rosmery Braun Technologist: Shira Fraire RDMS(AB) Trnscb Date/Time: 10/26/2020 (1410) t.AGUSTINRAbhilashYOS Orig Print D/T: S: 10/26/2020 (1415) Probe: PAGE 1 Signed ReportPROTHROMBIN [id number] 13:56:00 Test Item Value Reference Range Interpretation Comments PROTHROMBIN TIME 11.8 SECONDS 9.3-12.9 N PATIENT (test code = PTP) INTERNATIONAL NORMAL 1.1 0.8-1.2 N TARGE T INR BY RATIO (test code = INDICATIO [...] (to prevent recurrent infar ct). THROMBOPLASTIN TIME [id number] 13:56:00 Test Item Value Reference Range Interpretation Comments THROMBOPLASTIN TIME PARTIAL (test Seconds 25.0-39.5 code = PTT) PROTHROMBIN [id number] 13:56:00 Test Item Value Reference Range Interpretation [...] (to prevent recurrent infar ct). THROMBOPLASTIN TIME [id number] 13:56:00 Test Item Value Reference Range Interpretation Comments THROMBOPLASTIN TIME 33.8 Seconds 25.0-39.5 N Therape utic Range: PARTIAL (test code = 50.4 - 88.3 Seconds PTT) Effective 02/19/2019 BASIC METABOLIC [id number] 08:02:00 Test Item Value Reference Range Interpretation [...] 8.0-10.5 N CA) - XR CHEST 2 [id number] 17:16:00 [facility] : 1970 Sex: M FAX: Tray Donald [phone] [place]: St: ADM FAX: Rosmery Cohen MD FAX: Antonino Huff MD [phone] Name: VLADIMIR MAGUIRE [facility] [place] [facility] : 1970 Age/S: 50/M [address] [place] [address] Blvd Unit #: [id number] Loc: [address] [place] [address] Phys: Antonino Huff MD Acct: [id number] Dis Date: Status: ADM IN PHONE #: [phone] Exam Date: 10/25/2020 1627 FAX #: [phone] Reason: ? opacity EXAMS: CPT CODE: [id number] XR CHEST 2 V 47438 Chest, 2 views dated 10/25/2020. HISTORY: ? [...] of the left lung base. There is noadditional radiographic evidence of acute cardiopulmonary disease. SL: 131 at 1716 Reported and signed by: Chuck Harris M.D. CC: Tray Linder MD; Rosmery Braun; Antonino Huff MD Technologist: FUAD Green) Trnscrd Date/Time/By: 10/25/2020 (4366) : By: LeslieM Orig Print D/T: S: 10/25/2020 (2513) PAGE 1 Signed ReportAG HEPATITIS B [id number] 16:37:00 Test Item Value Reference Range Interpretation Comments AG HEPATITIS B SURFACE NON REACTIVE INDEX NonReactive (test code = HBSAG) - XR SHOULDER 2 + V [id number] 13:12:00 [facility] : 1970 Sex: M FAX: Tray Donald [phone] [place]: St: ADM FAX: Rosmery Cohen MD FAX: Antonino Huff MD [phone] Name: VLADIMIR MAGUIRE [facility] : 1970 Age/S: 50/M [address] [place] [address] Unit #:[id number] Loc: G.[address] [place] [address] Phys: Antonino Huff MD Acct: [id number] Dis Date: Status: ADM IN PHONE #: [phone] Exam Date: 10/25/2020 1253 FAX #: [phone] Reason: Left shoulder region pain EXAMS: CPT CODE: [id number] XR SHOULDER 2 + [place] [address] PROCEDURE: Left Shoulder Radiographs. Clinical Indication: Left [...] Clayton Vasquez M.D. CC: Tray Linder MD; Rosmery Braun; Antonino Huff MD Technologist: RT Peter(R) Trnscrd Date/Time/By: 10/25/2020 (4301) : By: [email or web address] Orig Print D/T: S: 10/25/2020 (7840) PAGE 1 Signed ReportCOVID 19 Asymptomatic IH AG 2020-10-25 01:04:00 Test Item Value Reference Range Interpretation [...] COMMENTS: If not done this admissionC REACTIVE [id number] 23:38:00 Test Item Value Reference Range Interpretation Comments C REACTIVE PROTEIN (test code = 19.0 mg/L <10.0 H CRP) CBC W/AUTO [id number] 22:45:00 Test Item Value Reference Range Interpretation [...] REQUIRED (test code NO = MDIFF) LACTIC [id number] 22:35:00 Test Item Value Reference Range Interpretation Comments LACTIC ACID (test code = LACT) 0.9 mmol/L 0.4-1.9 N Coronavirus 2019 nCoV [id number] 20:19:00 Test Item Value Reference Range Interpretation Comments Coronavirus 2019 Negative NEGATIVE Negative re sults should be nCoV Bedside (test treated a s presumptive and code = ifinconsistent with [id number]) clinical signs and symptoms, or ne cessaryfor patient managem ent, should be tested with an alternativemole cular assay. Negative result s do not preclude MGYM-ZyU-2qtzxg tion and should not be u sed as the sole basis forp atient management deci sions. Negative result s should beconsidered in the context of a patient's recent exposures,histo ry, presence of clinical sig ns and symptoms consis tentwith COVID-19. BASIC METABOLIC [id number] 18:28:00 Test Item Value Reference Range Interpretation [...] L Specimen comments: Clean CatchHEPATIC FUNCTION PANEL [id number] 18:28:00 Test Item Value Reference Range Interpretation [...] N code = ALKP) Specimen comments: Clean [id number] 18:28:00 Test Item Value Reference Range Interpretation Comments LIPASE (test code = LIP) 135 Units/L 65.0-230.0 N Specimen comments: Clean [id number] 18:28:00 Test Item Value Reference Range Interpretation Comments TROPONIN-I (test 0.02 NG/ML 0.00-0.06 N REFERENCE R GUTIERREZ TROPONIN code = TROPI) I HEALTHY KEYA VIDUALS: <0.06 ng/mL R/O ISCHEMIA: 0.07 - 0.60 ng/mL CUT-OFF R GUTIERREZ FOR AMI: 0.60 - 1.5 ng/mL Specimen comments: Clean Catch- CT ABD PELVIS W/O [id number] 18:26:00 [facility] : 1970 Sex: M FAX: Rosmery Cohen MD [place]: St: REG FAX: Mallory Gan MD [phone] Name: VLADIMIR MAGUIRE [facility] : 1970 Age/S: 50/M [address] [facility] Unit: [id number] Loc: E.ERS[address] [place], [place]: [place] [address] Acct: [id number] Dis Date: Status: REG ER PHONE #: [phone] Exam Date: 10/24/2020 1803 FAX #: [phone] Reason: abd pain, recent hernia repair and perit dialys EXAMS: CPT CODE: [id number] CT ABD PELVIS W/O CONT 47818 CT ABDOMEN AND PELVIS W/O CONTRAST Location code:B2 CLINICAL INDICATIONS: Abdominal pain. Recent hernia repair [...] detected. PAGE 1 Signed Report (CONTINUED) FAX: Rosmery Cohen MD [place]: St: REG FAX: Mallory Gan MD [phone] Name: VLADIMIR MAGUIRE [facility] : 1970 Age/S: 50/M [address] [facility] Unit: [id number] Loc: [address] Phys: [place] [address] Acct: [id number] Dis Date: Status: REG ER PHONE #: [phone] Exam Date: 10/24/2020 180 FAX #: [phone] Reason: abd pain, recent hernia repair and perit dialys EXAMS: CPT CODE: [id number] CT ABD PELVIS W/O CONT 31765 <Continued> 2. Peritoneal dialysis catheter is in good position. Atrophic kidneys. 3. Mildly elevated left hemidiaphragm and bibasilar atelectasis. at 1826 Reported and signed by: Francisco Pack M.D. CC: Rosmery Braun MD; Mallory Gan MD Technologist: JANIE CHACON Trnscrd Dt/Tm: 10/24/2020 (1825) MartinRK5 Orig Print D/T: S: 10/24/2020 (1828 PAGE 2 Signed ReportBASIC METABOLIC [id number] 18:19:00 Test Item Value Reference Range Interpretation [...] 8.0-10.5 Specimen comments: Clean CatchHEPATIC FUNCTION PANEL [id number] 18:19:00 Test Item Value Reference Range Interpretation [...] 50.0-136.0 code = ALKP) Specimen comments: Clean [id number] 18:19:00 Test Item Value Reference Range Interpretation Comments LIPASE (test code = LIP) Units/L 65.0-230.0 Specimen comments: Clean [id number] 18:19:00 Test Item Value Reference Range Interpretation Comments TROPONIN-I (test code = TROPI) NG/ML 0.00-0.06 Specimen comments: Clean Catch- XR CHEST 1 [id number] 18:14:00 [facility] : 1970 Sex: M FAX: Rosmery Cohen MD [place]: St: REG FAX: Mallory Gan MD [phone] Name: VLADIMIR MAGUIRE [facility] : 1970 Age/S: 50/M [address] [facility] Unit #: [id number] Loc: [address] [place]: [place] [address] Acct: [id number] Dis Date: Status: REG ER PHONE #: [phone] Exam Date: 10/24/2020 181 FAX #: [phone] Reason: Abdominal Pain EXAMS: CPT CODE: [id number] XR CHEST 1V 43452 Site ID: [id number] HISTORY: Abdominal pain, bleeding at peritoneal dialysis catheter site COMPARISON: 3 days ago FINDINGS: No acute pulmonary infiltrate. Stable elevated left hemidiaphragm and left basilar atelectasis. The heart and pulmonary vasculature is normal. Osseous structures are unremarkable. IMPRESSION: Negative chest X-ray. at 1814 Reported and signed by: Addison Arboleda M.D. CC: Rosmery Braun MD; Mallory Gan MD Technologist: ARELY GONZALEZ [facility] Date/Time/By: 10/24/2020 (1813) : By: [email or web address] PAGE 1 Signed Report FAX: Rosmery Cohen MD [place]: St: [facility] FAX: Mallory Gan MD [phone] Name: VLADIMIR MAGUIRE [facility] : 1970 Age/S: 50/M [address] [facility] Unit #: [id number] Loc: [address] Phys: [place] [address] Acct: [id number] Dis Date: Status: REG ER PHONE #: [phone] Exam Date: 10/24/20201810 FAX #: [phone] Reason: Abdominal Pain EXAMS: CPT CODE: [id number] XR CHEST 1 V 42080 <Continued> Orig Print D/T: S: 10/24/2020 (1816) PAGE 2 Signed ReportPROTHROMBIN [id number] 18:10:00 Test Item Value Reference Range Interpretation Comments PROTHROMBIN TIME 11.4 SECONDS 9.9-12.8 N PATIENT (test code = PTP) INTERNATIONAL NORMAL 1.0 0.89-1.14 N THE INR IS TO BE USED RATIO (test code = ONLY FOR MONITORING INR) ORAL ANTICOAGULANTTH ERAPY. THE FOLLOWING A RE SUGGESTED RANGE S FROM [facility] LEGE OF CHEST PHYSICIANS:KEYA CATION INR VALUEPROPHY [...] - 3.0 VALVULAR HEART DISEASE 2.0 - 3.0 ATRIAL FIBRILAT ION 2.0 - 3.0BILEAFLET MECHANICAL VALV E IN AORTIC POSITION 2.0 - 3.0MECHANICAL PROSTHETIC VALV ES (HIGH RISK) 2.5 - 3.5PRESENCE OF LUPUS ANTICOAGULANT O R ANTIPHOSPHOLIPI D ANTIBODIES 2.5 - 3.5 Specimen comments: Clean CatchIs patient on anticoagulants? NTHROMBOPLASTIN TIME [id number] 18:10:00 Test Item Value Reference Range Interpretation [...] = 0.00 X10 3uL 0.00-0.01 N NRBC#) [id number] 06:12:00 Test Item Value Reference Range Interpretation Comments GLUBED (test code = 97 MG/DL 70-110 N Performe d by certified GLUBED) spinning operator at [facility] [id number] 11:04:00 Test Item Value Reference Range Interpretation Comments GLUBED (test code = 122 MG/DL 70-110 H Performe d by certified GLUBED) spinning operator at [facility] CBC W/AUTO [id number] 08:29:00 Test Item Value Reference Range Interpretation [...] (test code NO = MDIFF) BASIC METABOLIC [id number] 08:17:00 Test Item Value Reference Range Interpretation [...] code = 8.5 mg/dL 8.0-10.5 N CA) [id number] 08:04:00 Test Item Value Reference Range Interpretation Comments GLUBED (test code = 94 MG/DL 70-110 N Performe d by certified GLUBED) spinning operator at [facility] - XR T-SPINE [id number] 18:08:00 [facility] : 1970 Sex: M FAX: Mery Crane MD [phone] [place]: St: ADM FAX: Seymour Garner [phone] FAX: Rosmery Cohen MD FAX: Beth Correia MD [phone] Name: VLADIMIR MAGUIRE : 1970 Age/S: 50/M [address] [place] [address] Unit #: [id number] Loc: [address] [address] Phys: Miki Osman PA-C Acct: [id number] Dis Date: Status: ADM IN PHONE #: [phone] Exam Date: 10/21/2020 174 FAX #: [phone] Reason: point tenderness around T7-T8 after fall-back h EXAMS: CPT CODE: [id number] XR T-SPINE 3V 59165 Procedure: Thoracic Spine Radiographs. Clinical Indication: Mid [...] M.D. CC: Mery Crane MD; Seymour Osman; Rosmery Braun; Beth Frankel MD Technologist: Oly Madden, RT(R); Jacqueline Espitia RT(R) Trnscrd Date/Time/By: 10/21/2020 (1807) : By: JeannetteO Orig Print D/T: S: 10/21/2020 (1810) PAGE 1 Signed [id number] 18:03:00 Test Item Value Reference Range Interpretation Comments GLUBED (test code = 126 MG/DL 70-110 H Performe d by certified GLUBED) spinning operator at [facility] - XR ABDOMEN 1V (KUB)2020-10-21 17:46:00 [facility] : 1970 Sex: M FAX: Estiven Call MD [phone] [place]: St: ADM FAX: Mery Crane MD [phone] FAX: Rosmery Cohen MD FAX: Beth Correia MD [phone] Name: PRESLEYVLADIMIR [facility] : 1970 Age/S: 50/M [address] [place] [address] Unit #: [id number] Loc: [address] [address] Phys: Estiven Call MD Acct: [id number] Dis Date: Status: ADM IN PHONE #: [phone] Exam Date: 10/21/2020 174 FAX #: [phone] Reason: n/v, abdominal pain EXAMS: CPT CODE: [id number] XR ABDOMEN 1V (KUB) 33974 Procedure: Abdominal Radiograph. Clinical Indication: Nausea and [...] are additional vascular calcifications. IMPRESSION: 1. Nonspecific bowel gas pattern without definitive bowel obstruction. 2. Peritoneal dialysis catheter coiled in the pelvis. SL: OCO-H at 1746 Reported and signed by: Clayton Vasquez M.D. CC: Estiven Call MD; Mery Crane MD; Rosmery Braun; Kelly Frankel MD Technologist: Oly Madden, RT(R); Jacqueline Espitia, RT(R) Trntnrd Date/Time/By: 10/21/2020 (1608) : By: Ryne Orig Print D/T: S: 10/21/2020 (8818) PAGE 1 Signed [id number] 17:21:00 Test Item Value Reference Range Interpretation Comments GLUBED (test code = 101 MG/DL 70-110 N Performe d by certified GLUBED) spinning operator at [facility] - XR CHEST 1 [id number] 17:06:00 [facility] : 1970 Sex: M FAX: Estiven Call MD [phone] [place]: St: [facility] FAX: Mery Crane MD [phone] FAX: Rosmery Cohen MD FAX: Beth Correia MD [phone] Name: VLADIMIR MAGUIRE [facility] [place] : 1970 Age/S: 50/M [address] [place] [address] Blvd Unit #: [id number] Loc: [address] [address] Phys: Estiven Call MD Acct: [id number] Dis Date: Status: ADM IN PHONE #: [phone] Exam Date: 10/21/2020 1659 FAX #: [phone] Reason: recent fall left sided rib hurting EXAMS: CPT CODE: [id number] XR CHEST 1 V 90883 Chest, single view dated 10/21/2020. HISTORY: Left chest wall pain status post recent fall. Comparison is madeto a prior study dated 10/16/2020. The heart [...] CC: Estiven Call MD; Mery Crane MD; Rosmery Braun; Beth Frankel MD Technologist: RT Yolande(R) Trnscrd Date/Time/By: 10/21/2020 (1706) : By: [email or web address] Orig Print D/T: S: 10/21/2020 (7767) PAGE 1 Signed [id number] 12:18:00 Test Item Value Reference Range Interpretation Comments GLUBED (test code = 85 MG/DL 70-110 N Performe d by certified GLUBED) spinning operator at [facility] ACUTE HEPATITIS [id number] 09:59:00 Test Item Value Reference Range Interpretation [...] is recommended if clinicallyindic ated. BASIC METABOLIC [id number] 08:02:00 Test Item Value Reference Range Interpretation [...] code = 8.2 mg/dL 8.0-10.5 N CA) [id number] 08:02:00 Test Item Value Reference Range Interpretation Comments PHOSPHOROUS (test code = PHOS) 8.0 MG/DL 2.5-4.9 H [id number] 08:02:00 Test Item Value Reference Range Interpretation Comments MAGNESIUM (test code = MAG) 2.26 mg/dL 1.80-2.40 N CBC W/AUTO [id number] 06:59:00 Test Item Value Reference Range Interpretation [...] DIFF REQUIRED (test code NO = MDIFF) [id number] 21:48:00 Test Item Value Reference Range Interpretation Comments GLUBED (test code = 140 MG/DL 70-110 H Performe d by certified GLUBED) spinning operator at [facility] TSH REFLEX TO [id number] 17:15:00 Test Item Value Reference Range Interpretation Comments TSH REFLEX TO FT4 (test code = 1.59 IU/mL 0.42-5.47 N TSHREFLEX) HGBA1C%2020-10-20 17:06:00 Test Item Value Reference Range Interpretation Comments HGBA1C% (test code = HGBA1C%) 5.2 %A1C 4.8-6.0 N [id number] 16:37:00 Test Item Value Reference Range Interpretation Comments GLUBED (test code = 144 MG/DL 70-110 H Performe d by certified GLUBED) spinning operator at [facility] [id number] 11:31:00 Test Item Value Reference Range Interpretation Comments GLUBED (test code = 128 MG/DL 70-110 H Performe d by certified GLUBED) spinning operator at [facility] CBC W/AUTO [id number] 08:46:00 Test Item Value Reference Range Interpretation [...] (test code NO = MDIFF) BASIC METABOLIC [id number] 08:07:00 Test Item Value Reference Range Interpretation [...] code = 8.7 mg/dL 8.0-10.5 N CA) [id number] 07:46:00 Test Item Value Reference Range Interpretation Comments GLUBED (test code = 114 MG/DL 70-110 H Performe d by certified GLUBED) spinning operator at [facility] Novel Coronavirus 2018 [id number] 21:59:00 Test Item Value Reference Range Interpretation [...] for the identification of SARS-CoV-2 RNA usingthe [employer] M2000 Sy stem under the FDA Emergen cy UseAuthorizatio n. The testing is perf ormed by personneltramelia d in the procedures for the [employer] molecular diagnostic SARS-CoV-2 assa y in vitro. 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 The lungs are clear. The cardiomediastinal silhouette is normal for projection. Aortic locations. No acute osseous abnormality. Cervical spinal hardware partially visualized. IMPRESSION: 1. No acute cardiopulmonary abnormality. SL: [id number] at 1050 Reported and signed by: Lucia Montano M.D. CC: Rosmery Braun; Beth Frankel MD; Tamika Hadley NP Technologist: Nichole Maldonado RT(R) Trnscrd Date/Time/By: 10/16/2020 (3210) : By: [email or web address] Orig Print D/T: S: 10/16/2020 (3330) PAGE 1 Signed ReportCBC W/AUTO [id number] 10:39:00 Test Item Value Reference Range Interpretation [...] REQUIRED (test code NO = MDIFF) PLT [id number] 10:39:00 Test Item Value Reference Range Interpretation Comments PLATELET ESTIMATE (test code 100-125 THOUSAND ADEQUATE = PLTEST) PLATELET MORPHOLOGY (test LARGE PLATELETS code = PLTMORPH) BASIC METABOLIC [id number] 10:19:00 Test Item Value Reference Range Interpretation [...] 8.4 mg/dL 8.0-10.5 N CA) CBC W/AUTO [id number] 09:57:00 Test Item Value Reference Range Interpretation [...] REQUIRED (test code NO = MDIFF) PLT [id number] 09:57:00 Test Item Value Reference Range Interpretation Comments PLATELET ESTIMATE (test code = THOUSAND ADEQUATE PLTEST) CBC W/AUTO [id number] 09:56:00 Test Item Value Reference Range Interpretation [...] REQUIRED (test code NO = MDIFF) PLT [id number] 09:56:00 Test Item Value Reference Range Interpretation Comments PLATELET ESTIMATE (test code = THOUSAND ADEQUATE PLTEST) CBC W/AUTO [id number] 09:49:00 Test Item Value Reference Range Interpretation [...] REQUIRED (test code = MDIFF) BASIC METABOLIC [id number] 12:52:00 Test Item Value Reference Range Interpretation [...] 8.3 mg/dl 8.0-10.5 N CA) CBC W/AUTO [id number] 12:42:00 Test Item Value Reference Range Interpretation [...] N NRBC#) - CT ABD PELVIS W/O [id number] 08:55:00 [facility] : 1970 Sex: M FAX: Rosmery Cohen MD [place]: St: REG FAX: Beth Correia MD [phone] Name: VLADIMIR MAGUIRE [facility] : 1970 Age/S: 50/M [address] [facility] Unit: [id number] [place]: [place]: [place] [address] Acct: [id number] Dis Date: Status: REG CLI PHONE #: [phone] Exam Date: 09/29/2020 0834 FAX #: [phone] Reason: RIGHT GROIN PAIN EXAMS: CPT CODE: [id number] CT ABD PELVIS W/O CONT 57848 HISTORY: Right inguinal pain, right lower quadrant [...] the cortex appear to be intact. Spinal alignm ent well maintained. Mild haziness in the fat diffusely may support mild anasarca. PAGE 1 Signed Report (CONTINUED) FAX: Rosmery Cohen MD [place]: St: REG FAX: Beth Correia MD [phone] --- Name: NINA MAGUIRE [facility] : 1970 Age/S: 50/M [address] [facility] Unit: [id number] Loc: [place]: [place] [address] Acct: [id number] Dis Date: Status: REG CLI PHONE #: [phone] Exam Date: 09/29/2020 0834 FAX #: [phone] Reason: RIGHT GROIN PAIN EXAMS: CPT CODE:[id number] CT ABD PELVIS W/O CONT 84692 <Continued> IMPRESSION: Limited Study. Normal appendixseen with normal bowel loop pattern. Small right inguinal hernia a tiny amount of fluid in the right inguinal canal , of unclear significance. No focal inflammatory changes are present nor bowel loopstrapped. Sacral decubitus with cortical margins of the affected sacrum and coccyx appearing to be intact. Anasarca. Right nephrectomy.. Location: U19 at 0855 Reported and signed by: Nathanael Pa M.D CC: Rosmery Braun MD; Beth Frankel MD Technologist: LISA WATKINS Trnscrd Dt/Tm: 09/29/2020 (0855) t.SDR.[email or web address] Orig Print D/T:S: 09/29/2020 (2758 PAGE 2 Signed ReportBASIC METABOLIC PANEL 2020-09-17 [...] CA) 8.1 mg/dl 8.0-10.5 N CBC W/AUTO [id number] 06:29:00 Test Item Value Reference Range Interpretation [...] 0.00-0.01 N NRBC#) COVID 19 Asymptomatic IH [id number] 05:55:00 Test Item Value Reference Range Interpretation Comments COVID 19 NEGATIVE NEGATIVE Negative result s should be Asymptomatic IH AG treated a s presumptive and (test code = ifinconsistent with COVNONPUIAG) clinical signs and symptoms, or ne cessaryfor patient managem ent, should be tested with an alternativemole cular assay. Negative results do not preclude YHTZ-BeF-1pedxe tion and should not be u sed as the sole basis forp atient management deci sions. Negative result s should beconsidered in the context of a pa tient's recent exposure s,history, presence of cli nical signs and symptoms consistentwith COVID-19. LACTIC [id number] 09:23:00 Test Item Value Reference Range Interpretation Comments LACTIC ACID (test code = LACT) 1.0 MMOL/L 0.4-2.0 N BASIC METABOLIC [id number] 09:11:00 Test Item Value Reference Range Interpretation [...] 8.2 mg/dl 8.0-10.5 N CA) CBC W/AUTO [id number] 09:06:00 Test Item Value Reference Range Interpretation [...] 0.00 X10 3uL 0.00-0.01 N NRBC#) SURGICAL [id number] 14:26:00 RUN DATE: 02/21/20 [facility] - LAB PAGE 1 RUN TIME: 1427 Specimen Inquiry RUN USER: INTERFACE -------- ----PATIENT: VLADIMIR MAGUIRE LOC: [place] U #: [id number] AGE/SX: 49/M ROOM: RE02/20/[facility] DR: Saroj Coates MD : [birth year] BED: DIS: STATUS: [place] TLOC: SPEC #: [id number] RECD: 02/20/20 STATUS: NEIL CRENSHAW #: [id number] BENEDICTO: 02/20/[address]: Saroj Coates MD [...] approximately 1 x 1 x 1 cm. Breastfeeding Program Coordinator sections are submitted as follows: SECTION CODE: CONTINUED ONNEXT PAGE RUN DATE: 02/21/20 [facility] - LAB PAGE 2 RUN TIME: 1427 Specimen Inquiry RUN USER: INTERFACE SPEC #: [id number] PATIENT: VLADIMIR MAGUIRE #[id number] (Continued) GROSS DESCRIPTION (Continued) A1-A2: First described small area A3-A5: Larger second described nodule RAB/th MICROSCOPIC DESCRIPTION Microscopic performed. Signed SIGNATURE ON FILE Rosemarie Ryder MD 02/21/20 1426 END OF REPORT [id number] 13:17:00 Test Item Value Reference Range Interpretation Comments GLUBED (test code = GLUBED) 101 MG/DL 70-105 N BASIC METABOLIC [id number] 06:39:00 Test Item Value Reference Range Interpretation [...] Critic al Value = CREAT) reported toFirs fay Name:REVA Last Name:DAVID DE LA CRUZ READ BACK AND VERIFIEDby BEBETO BO, on 02/20/20, @ 0637. CALCIUM (test code = 8.8 mg/dL 8.8-10.2 N CA) CBC W/AUTO [id number] 06:35:00 Test Item Value Reference Range Interpretation [...] BA#) 0.05 x10 3/uL 0.0-0.20 N SPECIAL [id number] 17:02:[facility] 2018-07-12 17:02:00 Test Item Value Reference Range Interpretation Comments Hgb A1C (test code = Hgb A1C) 5.8 [facility] [id number] 17:02:005.8[facility] [id number] 17:02:005.8[facility] KLASANBTF6885-23-19 17:02:005.8[facility] DoddqsvNWPJLHTVPL1176-26-22 16:58:0015.7[facility] Rob WKLZISFOIX5981-96-22 16:58:0082.5[facility] SxbcllgYOBWNQKEDM8331-94-14 16:58:00 12.1[facility] OonxcbjZKLTEBTSJF4020-13-92 16:58:004.49[facility]annHEMATOLOGY 2018-07-12 16:58:0010.7[facility] XueniyzUPCNXGNIUA9881-43-17 16:58:000.6[facility] PcrmlijZGARFPNXXK4583-55-67 16:58:004.6[facility] GymhykhBYUIDGUGDK9101-47-99 16:58:007.0[facility] JhbftgpDMWBOZOGHI0859-45-86 16:58:002.4[facility] Rob FGFTAADRFV2097-89-86 16:58:000.8[facility] CagddejPRNOGRMQUP3494-93-39 16:58:00 22.5[facility] MusazzeBHAHRVZZZL3411-41-19 16:58:007.2[facility]annHEMATOLOGY 2018-07-12 16:58:000.5[facility] ZinwvddBBLDMCANDC8700-66-61 16:58:000.1[facility] QiqluezNNNMEPIURY0235-65-60 16:58:0065.1[facility]annBLOOD BANK RESULTS 2018-07-12 16:58:00Negative (07/12/18 11:58 AM)[facility]annELECTROLYTES 2018-07-12 16:58:0010.2[facility] PbfccqaONYBFXUPOCTB4037-96-02 16:58:0019[facility] GmejzksYEAELNRYDNST6071-27-44 16:58:008.0[facility] OpbhkjdNUALOHGKFGTK6276-39-79 16:58:0026[facility] JnrxqjxJSUGQKBBOZXN6791-94-47 16:58:003.53[facility] Rob GRZVXIRKDRFE3431-49-79 16:58:0033[facility] PuixuvhSLCOQFNYOCDV2770-02-20 16:58:00 86[facility]orial XqhcciwPJLJNLYWXVBA6779-00-85 16:58:08379Gjrzrwvy HermannELECTROLYTES 2018-07-12 16:58:33819Awdlawkx OdfqavlLGSUDAWMDRHX8880-71-11 16:58:005.2[facility] DochtauKDVICCFVLB6393-72-87 16:58:00 Test Item Value Reference Range Interpretation Comments PTT (test code = PTT) 34.8 s 22.9-35.8 [facility] MtmsvlmQJEIFAFDJP4487-61-17 16:58:00 Test Item Value Reference Range Interpretation Comments INR (test code = INR) 0.94 1 0.85-1.17 [facility] BhuohulBVJBRMGZFC1761-68-37 16:58:00 Test Item Value Reference Range Interpretation Comments PT (test code = PT) 12.6 s 12.0-14.7 [facility] HospitalIjbhucdSXREHXQAXE9993-37-81 16:58:31456Urxojgxb [facility] HospitalHemoBio[facility] PIQFKVH6407-01-79 16:58:00 Test Item Value Reference Range Interpretation Comments Antibody Scrn (test Negative (07/12/18 11:58 code = Antibody Scrn) AM) [facility] HospitalHemo[facility] TTPEKRY5768-95-54 16:58:00 Test Item Value Reference Range Interpretation Comments ABO/Rh (test code = ABO/Rh) O POS [facility] HospitalIusyhupOFEWQVJAPELX5517-99-82 16:58:00 Test Item Value Reference Range Interpretation Comments AGAP (test code = AGAP) 10.2 10.0-20.0 [facility] HospitalMxtaccoJSWDZBQGUEYQ6203-78-39 16:58:00 Test Item Value Reference Range Interpretation Comments eGFR (test code = eGFR) 19 [facility] HospitalIsjtkdsUMORFOIVDKHR4266-73-14 16:58:00 Test Item Value Reference Range Interpretation Comments Calcium Lvl (test code = Calcium Lvl) 8.0 8.5-10.5 [facility] HospitalZgpccdcPWCUZWZEFI1972-28-20 16:58:007.6[facility] 2018-07-12 16:58:00 Test Item Value Reference Range Interpretation Comments CO2 (test code = CO2) 26 24-32 [facility] HospitalYitabllGLRKZCUMKPPS2335-68-32 16:58:00 Test Item Value Reference Range Interpretation Comments Creatinine Lvl (test code = Creatinine 3.53 0.50-1.40 Lvl) [facility] HospitalCaksyeiQPCQLHTTZRRL7139-92-09 16:58:00 Test Item Value Reference Range Interpretation Comments BUN (test code = BUN) 33 7-22 [facility] HospitalWumbquyGDUOYABNUXSF1042-61-24 16:58:00 Test Item Value Reference Range Interpretation Comments Glucose Lvl (test code = Glucose Lvl) 86 70-99 [facility] HospitalCgiaiioFHLQYCBBNBBP1865-93-74 16:58:00 Test Item Value Reference Range Interpretation Comments Chloride Lvl (test code = Chloride Lvl) 108 95-109 [facility] HospitalRjsnlndWYSGVIDFFNFY5546-03-94 16:58:00 Test Item Value Reference Range Interpretation Comments Sodium Lvl (test code = Sodium Lvl) 139 135-145 [facility] HospitalFvztcczLUXLUOWVYEIY4125-71-78 16:58:00 Test Item Value Reference Range Interpretation Comments Potassium Lvl (test code = Potassium 5.2 3.5-5.1 Lvl) [facility] HospitalWbhnavkGUHENLOMQN1122-41-45 16:58:0037.0[facility] 2018-07-12 16:58:00 Test Item Value Reference Range Interpretation Comments PTT (test code = PTT) 34.8 s 22.9-35.8 [facility] HospitalElqertcGQENHEIWBB3096-54-07 16:58:00 Test Item Value Reference Range Interpretation Comments INR (test code = INR) 0.94 1 0.85-1.17 [facility] HospitalCvqsnyfIGKHQCIQPI9976-24-19 16:58:00 Test Item Value Reference Range Interpretation Comments PT (test code = PT) 12.6 s 12.0-14.7 [facility] HospitalEqiilxzCWQQHGWAYD6099-85-45 16:58:00 Test Item Value Reference Range Interpretation Comments Platelet (test code = Platelet) 259 133-450 [facility] HospitalOwoifquEFSQXPOMDO2790-27-72 16:58:00 Test Item Value Reference Range Interpretation Comments MPV (test code = MPV) 7.6 7.4-10.4 [facility] HospitalKpmirluSFIOJJTICN5515-29-11 16:58:00 Test Item Value Reference Range Interpretation Comments Hct (test code = Hct) 37.0 42.0-54.0 [facility] HospitalPnlhgcqUVIPNWCBGG0841-55-49 16:58:00 Test Item Value Reference Range Interpretation Comments MCH (test code = MCH) 27.0 pg 27.0-31.0 [facility] HospitalYcqwxbiQGJJLDOQQM9385-87-07 16:58:00 Test Item Value Reference Range Interpretation Comments MCH (test code = MCH) 27.0 pg 27.0-31.0 [facility] HospitalZodgftaTBUDMSFMIX2543-45-01 16:58:00 Test Item Value Reference Range Interpretation Comments MCHC (test code = MCHC) 32.7 32.0-36.0 [facility] HospitalDmcvyvoOMCCSWCSIF3045-16-79 16:58:00 Test Item Value Reference Range Interpretation Comments RDW (test code = RDW) 15.7 11.5-14.5 [facility] HospitalEdgfijxTFQHAFAZUY0110-61-32 16:58:00 Test Item Value Reference Range Interpretation Comments MCV (test code = MCV) 82.5 80.0-94.0 [facility] HospitalTjkraeaWLNNVUYIZI7294-38-41 16:58:00 Test Item Value Reference Range Interpretation Comments Hgb (test code = Hgb) 12.1 14.0-18.0 [facility] HospitalMhxbseqSRKPURORAU8612-19-81 16:58:00 Test Item Value Reference Range Interpretation Comments RBC (test code = RBC) 4.49 4.70-6.10 [facility] HospitalKnenzaqAGCIVXKNFX3921-06-32 16:58:00 Test Item Value Reference Range Interpretation Comments WBC (test code = WBC) 10.7 3.7-10.4 [facility] HospitalGchmeieSAHICOKKEE6541-82-86 16:58:00 Test Item Value Reference Range Interpretation Comments Basophils (test code = 0.6 See_Comment [Aut omated message] The Basophils) system which ge nerated this result tra nsmitted reference range : <=1.0. The reference r gutierrez was not used to int erpret this result as normal/abnormal . [facility] HospitalRfmcgikQKUAIZRLUR3557-68-97 16:58:00 Test Item Value Reference Range Interpretation Comments Eosinophils (test code = 4.6 See_Comment [A utomated message] The Eosinophils) system which ge nerated this result tra nsmitted reference range : <=4.0. The reference r gutierrez was not used to int erpret this result as normal/abnormal . [facility]QtkxrsrHMAKPZUAVP7588-72-13 16:58:00 Test Item Value Reference Range Interpretation Comments Neutrophils # (test code = Neutrophils 7.0 1.5-8.1 #) [facility] HospitalSsvyibmNYCJEXQEMP3849-12-88 16:58:0032.7[facility] 16:58:00 Test Item Value Reference Range Interpretation Comments Lymphocytes # (test code = Lymphocytes 2.4 1.0-5.5 #) [facility] HospitalLaromwcLCDLLKAGWC1227-00-09 16:58:00 Test Item Value Reference Range Interpretation Comments Monocytes # (test code 0.8 See_Comment [Aut omated message] The = Monocytes #) system which generated this result tra nsmitted reference range : <=0.8. The reference r gutierrez was not used to int erpret this result as normal/abnormal . [facility] HospitalNoswzpuCISOIGZOEP0927-62-80 16:58:00 Test Item Value Reference Range Interpretation Comments Lymphocytes (test code = Lymphocytes) 22.5 20.0-40.0 [facility]so[facility]nvTHLQHKJOAL3676-18-40 16:58:00 Test Item Value Reference Range Interpretation Comments Monocytes (test code = Monocytes) 7.2 2.0-12.0 [facility]QLHYUPHH6853-62-99 16:58:00 Test Item Value Reference Range Interpretation Comments Eosinophils # (test code 0.5 See_Comment [A utomated message] The = Eosinophils #) system whic h generated this result tra nsmitted reference range : <=0.5. The reference r gutierrez was not used to int erpret this result as normal/abnormal . [facility]XzxfhjjPYKUXFOYCK0005-77-95 16:58:00 Test Item Value Reference Range Interpretation Comments Basophils # (test code 0.1 See_Comment [Aut omated message] The = Basophils #) system which generated this result tra nsmitted reference range : <=0.2. The reference r gutierrez was not used to int erpret this result as normal/abnormal . [facility] CenterAhvmzkqGYPTNDVLUF4769-71-39 16:58:00 Test Item Value Reference Range Interpretation Comments Segs (test code = Segs) 65.1 45.0-75.0 [facility] OsqdufbUWTRFQKTAV8235-33-16 16:58:0015.7[facility] 2018-[facility]-12 16:58:0082.5[facility] RwnqtimWBZXNCBTCS0867-06-84 16:58:0012.1[facility] AiuneviHAFERJTHKJ0777-57-71 16:58:004.49[facility] XutctcrCHBGSIQPGT0632-50-23 16:58:0010.7[facility] OaknoedCKBERUCNSM2830-19-09 16:58:000.6[facility] Rob PUSBCRPOIT6009-78-79 16:58:004.6[facility] YrlbxolHZGQPURRIC3710-33-07 16:58:007.0 [facility] HmjtympCQMQMEYTCR7978-13-21 16:58:002.4[facility] 2018-07-12 16:58:000.8[facility] PosxyfkTWFBTDVDTJ6407-29-87 16:58:0022.5[facility] VxjizkmDEKYCGFNGI0400-69-05 16:58:007.2[facility] TlhzhvlHUBCPWNGHT2256-16-06 16:58:000.5[facility] TjrvcedVZLMGXPTFS9877-03-77 16:58:000.1[facility] FVPFNRDJLD8730-92-29 16:58:0065.1[facility] YVTOMYE7613-94-49 16:58:00Negative (07/12/18 11:58 AM)[facility] CrqrsxySSSNNJKLIBYP0966-12-10 16:58:0010.2[facility] FpvebgqZJFXAWQBIUJA1894-36-26 16:58:0019[facility] EJRSRTYPHXGQ0530-76-83 16:58:008.0[facility] MotheijKMIGCNBDTSZC5158-42-68 16:58:0026[facility] TaluotoCILXDENHBUCN1388-24-32 16:58:003.53[facility] Rob DMAGOYFYDGJI7117-72-92 16:58:0033[facility] CuyhtgfMJHEHPSUVETB2905-74-46 16:58:00 86[facility] BiqxhxtUKHTIQHUALFK2431-77-33 16:58:49746Tnnhvlry HermannELECTROLYTES 2018-07-12 16:58:93326Opuaaega EykunwzDTFDVVUYVHZG8871-89-73 16:58:005.2[facility] BzbysisPHHDPBADYN0761-10-31 16:58:00 Test Item Value Reference Range Interpretation Comments PTT (test code = PTT) 34.8 s 22.9-35.8 [facility] KkdvqxsRRHOFSQOGT0544-03-18 16:58:00 Test Item Value Reference Range Interpretation Comments INR (test code = INR) 0.94 1 0.85-1.17 [facility] TiqbrymMIBLDZOMHI6286-94-26 16:58:00 Test Item Value Reference Range Interpretation Comments PT (test code = PT) 12.6 s 12.0-14.7 [facility] MbnzkwmGRXPCPYTHB7174-33-69 16:58:39885Ypchdgza HermannHEMATOLOGY 2018-07-12 16:58:007.6[facility] KnfgcteNSQLZZXGMI6737-80-61 16:58:0037.0[facility] VpxakjcZLTWJZACTQ9197-67-60 16:58:00 Test Item Value Reference Range Interpretation Comments MCH (test code = MCH) 27.0 pg 27.0-31.0 [facility] LnrhsulGBGPBPVEQA3323-42-00 16:58:0032.7[facility] 2018-07-12 16:58:0015.7[facility] AsiqrpwASISICPRHG7085-64-82 16:58:0082.5[facility] SovfnxbPIGBYXNBXS7817-79-04 16:58:0012.1[facility] LtjlfezIVDVVQKZRG2172-51-50 16:58:004.49[facility] QhnkalzYGQEAKUVTX2751-59-00 16:58:0010.7[facility] Rob ZZFCHSHPBJ8265-79-69 16:58:000.6[facility] SfbufhrYWRPVMWKCS3476-34-78 16:58:004.6 [facility] FctcckkAYCTVZCAWV8102-29-90 16:58:007.0[facility] 2018-07-12 16:58:002.4[facility] YmbaxqqSETQAAIKSJ9266-17-51 16:58:000.8[facility] ZuwasjxJLKLESFYSX9844-27-36 16:58:0022.5[facility] ZqikpmlWLCBXCNZTQ9631-05-11 16:58:007.2[facility] SerjewsWLHKCYVBHC7438-92-47 16:58:000.5[facility] Rob FKRREOBTVU2195-35-74 16:58:000.1[facility] IgvnqamGLBLTFXFVW4697-78-13 16:58:00 65.1[facility]annBL[facility] B[facility] EIKJEXL9751-20-41 16:58:00Negative (07/12/18 11:58 AM)[facility] LfqljlyVETHNDYAINPY1128-40-62 16:58:0010.2[facility] YNAAEHGWYQAE6839-90-62 16:58:0019[facility] NzcgtoyMKBYKNRVXSAR4126-97-00 16:58:00 8.0[facility] HftakxmJLBCFVAYFHTK2851-82-54 16:58:0026[facility]annELECTROLYTES 2018-07-12 16:58:003.53[facility] JbnlfveYAYUCCPVACIK7766-21-46 16:58:0033[facility] HwdhncsEIQAJUTQPPME1896-24-52 16:58:0086[facility] YcvayyzDNWYASMEMAOC9966-08-79 16:58:35174Lwyaeaov KtbbqxqZIOSPYWPESBU2169-99-79 16:58:71634Fvlsnvge [place] TTIPGMLHERHX1348-27-99 16:58:005.2[facility] DqevfamXNPVBCVLFZ0795-54-72 16:58:00 Test Item Value Reference Range Interpretation Comments PTT (test code = PTT) 34.8 s 22.9-35.8 [facility] YpgjnnmPWTDGEFTPO1155-58-87 16:58:00 Test Item Value Reference Range Interpretation Comments INR (test code = INR) 0.94 1 0.85-1.17 [facility] MottcjsFUZHBVBJTD6686-95-33 16:58:00 Test Item Value Reference Range Interpretation Comments PT (test code = PT) 12.6 s 12.0-14.7 [facility] JrueoldVYMYYXAOCM8817-51-96 16:58:20738Dwjtjkdn HermannHEMATOLOGY 2018-07-12 16:58:007.6[facility] SwujivnZKFJLGVBBB6581-01-29 16:58:0037.0[facility] RzsvhkqMLVADBWDHW6737-61-77 16:58:00 Test Item Value Reference Range Interpretation Comments MCH (test code = MCH) 27.0 pg 27.0-31.0 [facility] TqzbjvwFLMZEOXTMX4114-49-35 16:58:0032.7[facility]ann[facility] 2018-07-12 16:58:0015.7[facility] PqxrmzgKNIFRQSQPT8657-12-81 16:58:0082.5[facility] KqsaaahNDPTVODQBE0087-98-68 16:58:0012.1[facility] BpjlnkxXIWGHQUQIA0063-29-98 16:58:004.49[facility] IzlvoguHLCYBSCXEW6810-32-44 16:58:0010.7[facility] Rob DPYRPMXZPK2536-64-24 16:58:000.6[facility] YblwarfSUVCXLKNWK6583-98-45 16:58:004.6 [facility] GjjfcxuDSIRAAOBEH3308-95-05 16:58:007.0[facility] 2018-07-12 16:58:002.4[facility] ZkafvezDDTLARVMAP6598-30-05 16:58:000.8[facility] HiwgvcxLUAWHJFLZA9587-60-30 16:58:0022.5[facility] KuzbzcpVVHXTWPVHL8382-22-01 16:58:007.2[facility] UxxtwsfKEHTFDGXHU1719-34-45 16:58:000.5[facility] TCVFQWVHKR0379-74-54 16:58:000.1[facility] DvphdwqWRZNHMVNOR3758-84-00 16:58:00 65.1[facility]BL[facility] B[facility] NSWAJSU7589-12-24 16:58:00Negative (07/12/18 11:58 AM)[facility] SsasfjtJGWLJQJLDJFS3136-96-83 16:58:0010.2[facility] ZCDKUDLEJHIJ2531-47-81 16:58:0019[facility] TweetpkGVJIZULDTLRG2985-49-32 16:58:00 8.0[facility] UpaprbtCLPKCWECBZIU5082-45-26 16:58:0026[facility] HermannELECTROLYTES 2018-07-12 16:58:003.53[facility] QklxtyhFWERKTXNSDIB4696-31-56 16:58:0033[facility] IoakojlTQMBJUEXGHNA1735-09-98 16:58:0086[facility] NzvmcneUNFNKSHNUGQF4479-31-74 16:58:38481Muzowhto JremxkvJHVPDWYSRWCL2361-85-25 16:58:70047Xozvtyhv Rob HGIFENQVWCFS0562-31-99 16:58:005.2[facility] JzsttxdGROQFJQZTK3858-24-40 16:58:00 Test Item Value Reference Range Interpretation Comments PTT (test code = PTT) 34.8 s 22.9-35.8 [facility] ZvueasyYLMMEBPMYP2863-35-15 16:58:00 Test Item Value Reference Range Interpretation Comments INR (test code = INR) 0.94 1 0.85-1.17 [facility] HydxahpOFZLXWFRQZ9537-77-11 16:58:00 Test Item Value Reference Range Interpretation Comments PT (test code = PT) 12.6 s 12.0-14.7 [facility] YgpszmgWLARITHKYF7389-79-96 16:58:53585Otrzzbaq HermannHEMATOLOGY 2018-07-12 16:58:007.6[facility] VruwytuACFAYXIXAV5698-66-52 16:58:0037.0[facility] BrsptqsNUTZGDRWQJ7274-80-59 16:58:00 Test Item Value Reference Range Interpretation Comments MCH (test code = MCH) 27.0 pg 27.0-31.0 [facility] BshwhbvVKIZLVADLR5272-28-14 16:58:0032.7[facility]
[2022-08-26] MEDS ORDERED: DOXYCYCLINE 100 MG CAP PO ONE (15:52)
[2022-08-26] MEDS ORDERED: HYDROCODONE/APAP 10/325 TAB ONE (15:52)
--- NOTE | 2022-08-26 16:02 | ER ---
Nurse's Notes [facility] Name: Vladimir Maguire Age: 52 yrs Sex: Male : 1970 Arrival Date: 08/26/2022 Time: 14:21 Bed 19 Private MD: Diagnosis: Cutaneous Abscess of the Left Ear Presentation: 08/26 14:28 Chief complaint: Patient states: Pt reports abscess on top of left ear x2 days. kb3 Coronavirus screen: Vaccine status: Patient reports receiving the 2nd dose of the covid vaccine. Client denies travel out of the [place] in the last 14 days. Ebola Screen: Patient negative for fever greater than or equal to 101.5 degrees Fahrenheit, and additional compatible Ebola Virus Disease symptoms Patient denies exposure to infectious person. Patient denies travel to an Ebola-affected area in the 21 days before illness onset. No symptoms or risks identified at this time. Initial Sepsis Screen: Does the patient meet any 2 criteria? No. Patient's initial sepsis screen is negative. Does the patient have a suspected source of infection? No. Patient's initial sepsis screen is negative. Risk Assessment: Do you want to hurt yourself or someone else? Patient reports no desire to harm self or others. Onset of symptoms was August 24, 2022. 14:28 Method Of Arrival: Ambulatory [facility] 14:57 Acuity: GINA 3 mb8 Triage Assessment: 14:30 General: Appears in no apparent distress. Behavior is calm, cooperative. Pain: kb3 Complains of pain in left ear canal and left preauricular area Pain does not radiate. Pain currently is 8 out of 10 on a pain scale. Quality of pain is described as pressure, sharp, Pain began 2-3 days ago. Historical: - Allergies: 14:30 Ativan; kb3 - PMHx: 14:30 Diabetes - NIDDM; Hypertension; neuropathy; Renal Disease; Rheumatoid Arthritis; ESRD kb3 with dialysis MW; - Immunization history:: Adult Immunizations up to date, Client reports receiving the 2nd dose of the Covid vaccine, Last tetanus immunization: up to date. - Social history:: Smoking status: Patient denies any tobacco usage or history of. Patient uses street drugs, marijuana. Screenin:56 Abuse screen: Denies threats or abuse. Denies injuries from another. Nutritional mb8 screening: No deficits noted. Tuberculosis screening: No symptoms or risk factors identified. Fall Risk None identified. Assessment: 14:53 General: Appears uncomfortable, Behavior is calm, cooperative, appropriate for age. mb8 Pain: Complains of pain in left ear Pain does not radiate. Pain currently is 8 out of 10 on a pain scale. Quality of pain is described as stinging, Pain began 2-3 days ago. Is continuous, Current management is with [place] 10-325 \T\0700 this morning. Derm: Abscess located on left ear has no drainage. Vital Signs: 14:28 Pulse 87; Resp 20; Temp 97.1; Pulse Ox 99% ; Weight 96.62 kg; Height 5 ft. 10 in. kb3 (177.80 cm); Pain 8/10; 14:32 BP 165 / 91; kb3 14:56 BP 175 / 92; Pulse 80; Resp 20; Pulse Ox 97% on R/A; Pain 8/10; mb8 14:28 Body Mass Index 30.56 (96.62 kg, 177.80 cm) kb3 ED Course: 14:21 Patient arrived in ED. mr 14:30 Arm band placed on right wrist. kb3 14:45 Elliott Angel PA is PHCP. jmm 14:45 Rocael Mak MD is Attending Physician. [facility] 14:48 Albert Gomez, NINA is Primary Nurse. mb8 14:56 Patient has correct armband on for positive identification. Bed in low position. Side mb8 rails up X2. Client placed on continuous cardiac and pulse oximetry monitoring. NIBP monitoring applied. 14:57 Triage completed. mb8 16:00 Maritza Colin MD is Referral Physician. [facility] 16:16 No provider procedures requiring assistance completed. Patient did not have IV access mb8 during this emergency room visit. Administered Medications: 15:54 Drug: Doxycycline 100 mg Route: PO; mb8 16:17 Follow up: Response: No adverse reaction; Medication administered at discharge. mb8 15:54 Drug: Clindamycin 300 mg Route: PO; mb8 16:17 Follow up: Response: No adverse reaction; Medication administered at discharge. mb8 15:54 Drug: [place] (HYDROcodone-acetaminophen) 10 mg-325 mg 1 tabs Route: PO; mb8 16:17 Follow up: Response: No adverse reaction; Medication administered at discharge. mb8 Medication: 14:56 VIS not applicable for this client. mb8 Outcome: 16:01 Discharge ordered by . rohan 16:16 Discharged to home ambulatory. mb8 16:16 Condition: stable 16:16 Discharge instructions given to patient, Instructed on discharge instructions, follow up and referral plans. medication usage, wound care, Demonstrated understanding of instructions, follow-up care, medications, wound care, Prescriptions given X 2. 16:17 Patient left the ED. mb8 Signatures: Elliott Angel PA PA jmm Rivera, Mary mr Vicky Downs, RN RN kb3 Albert Gomez, RN RN mb8
--- NOTE | 2022-08-26 16:02 | EDPHYS ---
Physician Documentation [facility] Name: Vladimir Maguire Age: 52 yrs Sex: Male : 1970 Arrival Date: 08/26/2022 Time: 14:21 Bed 19 Private MD: ELIZABETH Physician Rocael Mak Historical: - Allergies: 08/26 14:30 Ativan; kb3 - PMHx: 14:30 Diabetes - NIDDM; Hypertension; neuropathy; Renal Disease; Rheumatoid Arthritis; ESRD kb3 with dialysis MWF; - Immunization history:: Adult Immunizations up to date, Client reports receiving the 2nd dose of the Covid vaccine, Last tetanus immunization: up to date. - Social history:: Smoking status: Patient denies any tobacco usage or history of. Patient uses street drugs, marijuana. Vital Signs: 14:28 Pulse 87; Resp 20; Temp 97.1; Pulse Ox 99% ; Weight 96.62 kg; Height 5 ft. 10 in. kb3 (177.80 cm); Pain 8/10; 14:32 BP 165 / 91; kb3 14:56 BP 175 / 92; Pulse 80; Resp 20; Pulse Ox 97% on R/A; Pain 8/10; mb8 14:28 Body Mass Index 30.56 (96.62 kg, 177.80 cm) kb3 Procedures: 15:56 I \T\ D: Incision and drainage was performed for an abscess of the left ear Prepped with jmm Anesthetized with 1 ml's 1% Lidocaine. Incised with #11 blade. Drained moderate amount purulent fluid. Packed with Dressing: sterile 4x4 gauze, the patient tolerated the procedure well. MDM: 14:51 Patient medically screened. [facility] 15:56 Data reviewed: vital signs, nurses notes. Counseling: I had a detailed discussion with jmm the patient and/or guardian regarding: the historical points, exam findings, and any diagnostic results supporting the discharge/admit diagnosis, the need for outpatient follow up, to return to the emergency department if symptoms worsen or persist or if there are any questions or concerns that arise at home. 08/26 15:45 Order name: Wound Care; Complete Time: 15:47 jm Administered Medications: 15:54 Drug: Doxycycline 100 mg Route: PO; mb8 16:17 Follow up: Response: No adverse reaction; Medication administered at discharge. mb8 15:54 Drug: Clindamycin 300 mg Route: PO; mb8 16:17 Follow up: Response: No adverse reaction; Medication administered at discharge. mb8 15:54 Drug: [employer] (HYDROcodone-acetaminophen) 10 mg-325 mg 1 tabs Route: PO; mb8 16:17 Follow up: Response: No adverse reaction; Medication administered at discharge. mb8 Disposition Summary: 08/26/22 16:01 Discharge Ordered Location: Home [facility] Condition: Stable [facility] Diagnosis - Cutaneous Abscess of the Left Ear [facility] Followup: [facility] - With: Maritza Colin MD - When: Tomorrow - Reason: Recheck today's complaints, Continuance of care, Re-evaluation by your physician Discharge Instructions: - Discharge Summary Sheet [facility] - Incision and Drainage, Care After [facility] Forms: - Medication Reconciliation Form [facility] - Thank You Letter [facility] - Antibiotic Education [facility] - Prescription Opioid Use [facility] Prescriptions: - Clindamycin HCl 300 mg Oral Capsule - take 1 capsule by ORAL route every 6 hours for 10 days; 40 capsule; Refills: 0, [facility] Product Selection Permitted - Doxycycline Hyclate 100 mg Oral Tablet - take 1 tablet by ORAL route every 12 hours; 20 tablet; Refills: 0, Product [facility] Selection Permitted Addendum: 08/30/2022 04:08 Co-signature as Attending Physician, Rocael Mak MD I agree with the assessment and c [facility] plan of care. Signatures: Rocael Mak MD MD cha Mickail, Joel, PA PA [facility] Vicky Downs RN RN kb3 Albert Gomez RN RN mb8
[2022-08-26 16:33] VITALS: TEMP 97.1
[2022-08-26 16:35] VITALS: BP 175/92; O2SAT 97
== END 2022-08-26 16:17 | disposition home or self-care (01) ==
LOC: ER 14:18
PROC: 09910ZZ Drainage of Left External Ear, Open Approach (ICD-10-PCS; principal; 2022-08-26)
DX: H60.02 Abscess of left external ear (principal); E11.9 Type 2 diabetes mellitus without complications; I10 Essential (primary) hypertension; N18.6 End stage renal disease; Z99.2 Dependence on renal dialysis
CPT/HCPCS: 99283

== ENCOUNTER 2022-08-30 13:52 | Inpatient (IN) | payer OTHER ==
--- OUTSIDE RECORDS SUMMARY | 2022-08-30 14:03 | XMS REPORT | Continuity of Care Document ---
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 tablet 16:39: Daily, # [place] 00 30 tab, 0 Refill(s) Acetaminoph 2018-0 Yes 1 tab, PO, Memoria en 325 MG / 07-12 TID, PRN l Hydrocodone 16:38: Pain, # 60 [place] Bitartrate 00 tab, 0 10 MG Oral Refill(s) Tablet [[place] 10/325] Trazodone 2018-0 Yes 100 mg = 1 Me moria Hydrochlori 07-12 tab, PO, l de 100 MG 16:38: Bedtime, # He rmann Oral Tablet 00 30 tab, 0 Refill(s) Acetaminoph 2018-0 Yes 1 tab, PO, Memoria en 325 MG / 07-12 TID, PRN l Hydrocodone 16:38: Pain, # 60 [place] Bitartrate 00 tab, 0 10 MG Oral Refill(s) Tablet [[place] 10/325] Trazodone 2018-0 Yes 100 mg = [...] = 1 Me moria 30 mg oral 06 tab, PO, l tablet 16:37: Daily, # [place] 00 30 tab, 0 Refill(s) metoprolol 2018-0 Yes 50 mg = 1 Me moria tartrate 50 06 tab, PO, l mg oral 16:37: BID, # 180 [facility] [place] tablet 00 tab, 0 Refill(s) lisinopril Yes 30 mg = 1 Me moria 30 mg oral 9-06 tab, PO, l tablet 16:37: Daily, # [place] 00 30 tab, 0 Refill(s) ACETAMINOPH Yes [...] 10-100 mg/5 needed for mL syrup Cough. atorvastati Yes Type 2 20mg Take 1 [facility] n (LIPITOR) 3-03 diabetes tablet by Health 20 mg 00:00: mellitus, mouth at tablet 00 uncontrolle bedtime d nightly. fluticasone Yes Allergic 1{spray QD Use 1 [facility] (FLONASE) 3-03 rhinitis, } [place] [facility] 50 00:00: unspecified each [...] at tablet 00 uncontrolle bedtime d nightly. loratadine Yes Allergic 10mg QD Take 1 [...] Use 1 [facility] (FLONASE) 3-03 rhinitis, } [place] [facility] 50 00:00: unspecified each mcg/actuati 00 allergic nostril on nasal rhinitis daily. spray type fluticasone Yes Allergic 1{spray QD Use 1 [facility] (FLONASE) 3-03 rhinitis, } [place] [facility] 50 00:00: unspecified each [...] Use 1 [facility] (FLONASE) 3-03 rhinitis, } [place] [facility] 50 00:00: unspecified each mcg/actuati 00 allergic nostril on nasal rhinitis daily. spray type loratadine Yes Allergic 10mg QD Take 1 H arris (CLARITIN) 3-03 rhinitis, tablet by Health 10 mg 00:00: unspecified mouth tablet 00 allergic daily. rhinitis type traMADol Yes History of 100mg Take [...] (ULTRAM) 50 2-25 fusion of tablets by [facility] mg tablet 00:00: cervical mouth 00 spine every 8 hours as needed for Pain. zolpidem Yes Insomnia, 5mg Take 1 [facility] (AMBIEN) 5 1-21 unspecified tablet by [facility] mg Tab 00:00: mouth 00 nightly at bedtime as needed for Insomnia. omeprazole Yes Status post 40mg QD Take 2 [facility] (PRILOSEC) 1-21 below knee capsules Health 20 mg 00:00: amputation by mouth delayed 00 of right daily. release lower capsule extremity FLUoxetine Yes Status post 20mg QD Take 1 [facility] (PROZAC) 20 1-21 below knee capsule by [facility] mg capsule 00:00: amputation mouth [...] [facility] (NEURONTIN) 1-21 below knee tablet by [facility] 600 mg 00:00: amputation mouth 3 tablet 00 of right times lower daily. extremity lisinopril- Yes 1{tbl} QD Take 1 [facility] hydrochloro 1-21 tablet by [facility] thiazide 00:00: mouth (ZESTORETIC 00 daily. ) 20-25 mg per tablet ketoconazol Yes Toenail QD Apply to [facility] (NIZORAL) 1-21 fungus affected He alth 2 % topical 00:00: area cream 00 daily. albuterol Yes Cough 2{puff} Inhale 2 [facility] (VENTOLIN 1-21 Puffs by [facility] HFA,PROVENT 00:00: mouth 4 [place] [...] 1 [facility] hydrochloro 1-21 tablet by [facility] thiazide 00:00: mouth (ZESTORETIC 00 daily. ) [...] 1 [facility] hydrochloro 1-21 tablet by [facility] thiazide 00:00: mouth (ZESTORETIC 00 daily. ) 20-25 mg per tablet ketoconazol Yes Toenail QD Apply to [facility] (NIZORAL) 1-21 fungus affected He alth 2 % topical 00:00: area cream 00 daily. albuterol Yes Cough 2{puff} Inhale 2 [facility] (VENTOLIN 1-21 Puffs by [facility] HFA,PROVENT 00:00: mouth 4 [place] 00 times HFA,PROAIR daily as HFA) 90 needed for mcg/actuati Wheezing. on inhaler zolpidem Yes Insomnia, 5mg Take 1 [facility] (AMBIEN) 5 1-21 unspecified tablet by [facility] mg Tab 00:00: mouth 00 nightly at bedtime as needed for Insomnia. omeprazole Yes Status post 40mg QD Take 2 [facility] (PRILOSEC) 1-21 below knee capsules Health 20 mg 00:00: amputation by mouth delayed 00 of right daily. release lower capsule extremity FLUoxetine Yes Status post 20mg QD Take 1 [facility] (PROZAC) 20 1-21 below knee capsule by [facility] mg capsule 00:00: amputation mouth [...] [facility] (NEURONTIN) 1-21 below knee tablet by [facility] 600 mg 00:00: amputation mouth 3 tablet 00 of right times lower daily. extremity lisinopril- Yes 1{tbl} QD Take 1 [facility] hydrochloro 1-21 tablet by [facility] thiazide 00:00: mouth (ZESTORETIC 00 daily. ) 20-25 mg per tablet ketoconazol Yes Toenail QD Apply to [facility] (NIZORAL) 1-21 fungus affected He alth 2 % topical 00:00: area cream 00 daily. albuterol Yes Cough 2{puff} Inhale 2 [facility] (VENTOLIN 1-21 Puffs by [facility] HFA,PROVENT 00:00: mouth 4 [place] 00 times HFA,PROAIR daily as HFA) 90 needed for mcg/actuati Wheezing. on inhaler lancets Yes use as Harri s gauge 1-30 directed 3 Health 00:00: times 00 daily. albuterol Yes 2{puff} Inhale 2 H arris (PROVENTIL 1-[facility] 90 00:00: mouth 4 mcg/actuati 00 times on inhaler daily as needed for Wheezing. lancets Yes use as Harri s gauge 1-30 directed 3 Health 00:00: times 00 daily. albuterol Yes 2{puff} Inhale 2 H arris (PROVENTIL 1-30 [facility]) 90 00:00: mouth 4 mcg/actuati [...] Completed Unive rsity of PFIZER VACCINE 00:00:00 [facility] SARS-COV-2 COVID-19 2021-01-23 Completed Unive rsity of PFIZER VACCINE 00:00:00 [facility] SARS-COV-2 COVID-19 2021-01-23 Completed Unive rsity of PFIZER VACCINE 00:00:00 [facility] SARS-COV-2 COVID-19 2021-01-23 Completed Unive rsity of PFIZER VACCINE 00:00:00 [facility] SARS-COV-2 COVID-19 2021-01-23 Completed Unive rsity of PFIZER VACCINE 00:00:00 [facility] Pfizer COVID-19 Pfizer COVID-19 2021-01-23 Completed Vaccine Vaccine 00:00:00 SARS-COV-2 COVID-19 2021-01-02 Completed Unive rsity of PFIZER VACCINE 00:00:00 [facility] SARS-COV-2 COVID-19 2021-01-02 Completed Unive rsity of PFIZER VACCINE 00:00:00 [facility] SARS-COV-2 COVID-19 2021-01-02 Completed Unive rsity of PFIZER VACCINE 00:00:00 [facility] SARS-COV-2 COVID-19 2021-01-02 Completed Unive rsity of PFIZER VACCINE 00:00:00 [facility] SARS-COV-2 COVID-19 2021-01-02 Completed Unive rsity of PFIZER VACCINE 00:00:00 [facility] Pfizer COVID-19 Pfizer COVID-19 2021-01-02 Completed Vaccine Vaccine 00:00:00 Influenza Virus 2018-09-12 Completed Universit y of Vaccine Quad .5 mL 00:00:00 [facility] 6+ MO Branch Influenza Virus 2018-09-12 Completed Universit y of Vaccine Quad .5 mL 00:00:00 [facility] 6+ MO Branch Influenza Virus 2018-09-12 Completed Universit y of Vaccine Quad .5 mL 00:00:00 [facility] 6+ MO Branch Influenza Virus 2018-09-12 Completed Universit y of Vaccine Quad .5 mL 00:00:00 [facility] IM 6+ MO Branch Influenza Virus 2018-09-12 Completed Universit y of Vaccine Quad .5 mL 00:00:00 [facility] 6+ MO Branch Pneumococcal 2018-01-07 Completed University o f Polysaccharide, 00:00:00 [place] [facility] PPSV23 (PNEUMOVAX) Branch Influenza Virus 2018-01-07 Completed Universit y of Vaccine Quad IM 3+ 00:00:00 [facility] Pneumococcal 2018-01-07 Completed University o f Polysaccharide, 00:00:00 [place] [facility] PPSV23 (PNEUMOVAX) Branch Influenza Virus 2018-01-07 Completed Universit y of Vaccine Quad IM 3+ 00:00:00 [facility] Pneumococcal 2018-01-07 Completed University o f Polysaccharide, 00:00:00 [place] [facility] PPSV23 (PNEUMOVAX) Branch Influenza Virus 2018-01-07 Completed Universit y of Vaccine Quad IM 3+ 00:00:00 [facility] Pneumococcal 2018-01-07 Completed University o f Polysaccharide, 00:00:00 [place] [facility] PPSV23 (PNEUMOVAX) Branch Influenza Virus 2018-01-07 Completed Universit y of Vaccine Quad IM 3+ 00:00:00 [facility] Pneumococcal 2018-01-07 Completed University o f Polysaccharide, 00:00:00 [place] [facility] PPSV23 (PNEUMOVAX) Branch Influenza Virus 2018-01-07 Completed Universit y of Vaccine Quad IM 3+ 00:00:00 [facility] Influenza Vaccine 2013-10-01 Completed [facility] 00:00:00 Influenza Vaccine 2013-10-01 Completed [facility] 00:00:00 Influenza Vaccine 2013-10-01 Completed [facility] 00:00:00 Influenza Vaccine 2013-10-01 Completed [facility] 00:00:00 Tropicamide 0.5% 2013-06-28 Completed [facility] [...] Eye-Amanda 15ml 00:00:00 Tropicamide 0.5% 2013-06-28 Completed [facility] ealth Eye-Amanda 15ml 00:00:00 Tropicamide 0.5% 2013-06-28 Completed [facility] ealt Eye-Amanda 15ml 00:00:00 PPV 23 Pneumococcal 2013-03-29 Completed [facility] [employer] Polysaccaride 00:00:00 PPV 23 Pneumococcal 2013-03-29 Completed [facility] Polysaccaride 00:00:00 PPV 23 Pneumococcal 2013-03-29 [facility] PPV 23 Pneumococcal 2013-03-29 Completed [facility] [employer] [facility] Polysaccaride 00:00:00 Vital Signs Vital Name Observation Time Observation Value Comments Source Systolic blood 2022-06-13 124 mm[Hg] dizzy,light [place] of pressure 15:36:00 headed [facility] Diastolic blood 2022-06-13 71 mm[Hg] dizzy,light [place] o f pressure 15:36:00 [facility] Heart rate 2022-06-13 109 /min [facility] 15:36:00 [facility] Oxygen saturation 2022-06-13 98 /min [facility] Arterial blood 15:36:00 [facility] by Pulse oximetry [place] Body temperature 2022-06-13 36.28 Jocelyne [facility] 15:07:00 [facility] Respiratory rate 2022-06-13 17 /min [facility] 15:07:00 [facility] Body height 2022-06-13 177.8 cm [facility] 15:07:00 [facility] Body weight 2022-06-13 98.068 kg [facility] 15:07:00 [facility] BMI 2022-06-13 31.02 kg/m2 [facility] 15:07:00 [facility] Systolic blood 2022-05-14 175 mm[Hg] [place] pressure 12:20:06 Hospital Diastolic blood 2022-05-14 119 mm[Hg] [facility] pressure 12:20:06 Hospital Heart rate 2022-05-14 90 /min [facility] 12:20:06 Hospital Body temperature 2022-05-14 36.56 Jocelyne [facility] 12:20:06 Hospital Respiratory rate 2022-05-14 18 /min [facility] 12:20:06 Hospital Oxygen saturation 2022-05-14 100 /min [facility] in Arterial blood 12:20:06 Hospital by Pulse oximetry Body weight 2022-05-14 96.798 kg [facility] 09:58:53 Hospital BMI 2022-05-14 30.62 kg/m2 [facility] 09:58:53 Hospital Body height 2022-05-13 177.8 cm [facility] 02:00:00 Hospital Respitory Rate 2018-07-12 Gerard Pastrana rome 17:23:00 Heart Rate 2018-07-12 Gerard Alex n 17:23:00 Temperature Oral 2018-07-12 98 F [facility] rmann (F) 17:23:00 Systolic (mm Hg) 2018-07-12 [facility] rmann 17:23:00 Diastolic (mm Hg) 2018-07-12 [facility] ermann 17:23:00 BMI Calculated 2018-07-12 Gerard Herm rome 17:01:00 Weight 2018-07-12 [facility] Alex n 17:01:00 Height 2018-07-12 180.34 cm [facility] Alex n 17:01:00 Procedures Procedure Date / Time Performing Clinician Source Performed AUTHORIZATION FOR 2022-06-30 05:01:00 Doctor Unassigned, No [facility] [place] [facility] Name Medical Branch AUTHORIZATION FOR 2022-06-27 05:01:00 Doctor Unassigned, No Univ ersity [facility] RELEASE OF [facility] MISC - NON-LEGAL REC 2022-06-14 05:01:00 Doctor Unassigned, No U niversity of [facility] Medical Branch COMPREHENSIVE METABOLIC 2022-05-14 09:12:00 [facility]EL [facility]IM[facility] GFR 2022-05-14 09:12:00 Abbie Arboleda spital HC COMPLETE BLD COUNT 2022-05-14 09:12:00 Otis [facility] W/AUTO DIFF COVID-19 ANTI-SPIKE IGG 2022-05-14 09:00:00 [facility] TITER Roe COVID-19 SEROLOGY 2022-05-14 09:[facility] Roe HEPATITIS B SURFACE 2022-05-13 21:36[facility] Bharatkumar XR CHEST 1 VW PORTABLE 2022-05-13 19:07:00 Suri [facility] Vladimir ECG PRE/POST OP 2022-05-13 18:30:58 [facility] Vladimir POC GLUCOSE 2022-05-13 18:30:00 Abbie Arboleda spital EP PACEMAKER INSERTION 2022-05-13 17:54:49 Madelin [facility] NEW OR REPLACEMENT [place] AN ELECTIVE 2022-05-13 16:28:00 Maritza Skinner [facility] SUPRAGLOTTIC AIRWAY POC GLUCOSE 2022-05-13 15:46:00 Abbie Arboleda spital TYPE AND SCREEN 2022-05-13 15:38:00 Tavo Yusuf spital HEMODIALYSIS 2022-05-13 13:26:02 Remi Mcnulty spital Bharatkumar POC GLUCOSE 2022-05-13 12:53:00 Abbie Arboledatal HC COMPLETE BLD COUNT 2022-05-13 09:53:00 Otis [facility] W/AUTO DIFF COMPREHENSIVE METABOLIC 2022-05-13 09:53:00 Otis [facility] PANEL ESTIMATED GFR 2022-05-13 09:53:00 Abbie Arboleda spital POC GLUCOSE 2022-05-13 02:40:00 Abbie Arboleda spital HEPATITIS B SURFACE 2022-04-15 12:53:00 [facility] ANTIGEN Center HEPATITIS B SURFACE 2022-04-15 12:53:00 [facility] ANTIBODY Center HEPATITIS B CORE 2022-04-15 12:53:00 [facility] ANTIBODY, TOTAL Center HEPATITIS C ANTIBODY 2022-04-15 12:53:00 [facility] HEPATITIS B SURFACE 2022-04-14 15:09:00 [facility] ANTIGEN Center HEPATITIS B SURFACE 2022-04-14 15:09:00 [facility] ANTIBODY [place] [id number] 2020-10-26 00:00:00 JUNE [facility] [id number] 2020-10-20 00:00:00 [facility] [id number] 2020-10-20 00:00:00 [facility] [id number] 2020-10-20 00:00:00 [facility] [id number] 2020-10-20 00:00:00 [facility] [id number] 2020-10-20 00:00:00 [facility] [id number] 2020-10-20 00:00:00 [facility] Amputation [facility] Anterior spinal fusion 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 dialysis catheter using fluoroscopic guidance Knee replacement [facility] ORIF - Open reduction [facility] and internal fixation of fracture Tonsillectomy [facility] Plan of Care Planned Activity Planned Date Details Comments Source Future Scheduled 2022-08-11 HEPATITIS B VACCINES [facility] Test 16:48:32 (1 of 3 - 3-dose series) [code = HEPATITIS B VACCINES (1 of 3 - 3-dose series)] Future Scheduled 2022-08-11 Pneumococcal Vaccine: [facility] Test 16:48:32 Pediatrics (0 to 5 Years) and At-Risk Patients (6 to 64 Years) (1 - PCV) [code = Pneumococcal Vaccine: Pediatrics (0 to 5 Years) and At-Risk Patients (6 to 64 Years) (1 - PCV)] Future Scheduled 2022-08-11 [facility]ABETES: [facility] 16:48:32 EXAM [code = DIABETES: RETINAL EYE EXAM] Future Scheduled 2022-08-11 DIABETIC FOOT EXAM [facility] Test 16:48:32 [code = DIABETIC FOOT EXAM] Future Scheduled 2022-08-11 [facility] Test 16:48:32 [code = URINE MICROALBUMIN] Future Scheduled 2022-08-11 Hepatitis C screening [facility] Hospital Test 16:48:32 (procedure) [code = 980967737] Future Scheduled 2022-08-11 SHINGLES VACCINES (1 [facility] Hospital Test 16:48:32 of 2) [code = SHINGLES VACCINES (1 of 2)] Future Scheduled 2022-08-11 COLONOSCOPY SCREENING [facility] Test 16:48:32 [code = COLONOSCOPY SCREENING] Future Scheduled 2022-08-11 COVID-19 VACCINE (3 - [facility] Test 16:48:32 Booster for Pfizer series) [code = COVID-19 VACCINE (3 - Booster for Pfizer series)] Future Scheduled 2022-08-11 INFLUENZA VACCINE [facility] Hospital Test 16:48:32 [code = INFLUENZA VACCINE] Future Scheduled 2022-08-11 HEPATITIS B VACCINES [facility] Test 16:48:32 (1 of 3 - 3-dose series) [code = HEPATITIS B VACCINES (1 of 3 - 3-dose series)] Future Scheduled 2022-08-11 Pneumococcal Vaccine: [facility] Test 16:48:32 Pediatrics (0 to 5 Years) and At-Risk Patients (6 to 64 Years) (1 - PCV) [code = Pneumococcal Vaccine: Pediatrics (0 to 5 Years) and At-Risk Patients (6 to 64 Years) (1 - PCV)] Future Scheduled 2022-08-11 DIABETES: RETINAL EYE [facility] Hospital Test 16:48:32 EXAM [code = DIABETES: RETINAL EYE EXAM] Future Scheduled 2022-08-11 [facility]IC [facility] Test 16:48:32 [code = DIABETIC FOOT EXAM] Future Scheduled 2022-08-11 URINE [facility]ALBUMIN [facility] Test 16:48:32 [code = URINE MICROALBUMIN] Future Scheduled 2022-08-11 Hepatitis C screening [facility] Hospital Test 16:48:32 (procedure) [code = 850585686] Future Scheduled 2022-08-11 SHINGLES VACCINES (1 [facility] Test 16:48:32 of 2) [code = SHINGLES VACCINES (1 of 2)] Future Scheduled 2022-08-11 COLONOSCOPY SCREENING [facility] Test 16:48:32 [code = COLONOSCOPY SCREENING] Future Scheduled 2022-08-11 COVID-19 VACCINE (3 - [facility] Test 16:48:32 Booster for Pfizer series) [code = COVID-19 VACCINE (3 - Booster for Pfizer series)] Future Scheduled 2022-08-11 INFLUENZA VACCINE [facility] Test 16:48:32 [code = INFLUENZA VACCINE] Future Scheduled 2018 [facility] 00:00:00 malignant neoplasm of colon (procedure) [code = 219948898] Future Scheduled 2018 [facility] Test 00:00:00 malignant neoplasm of colon (procedure) [code = 946133342] Future Scheduled 2018 [facility] Test 00:00:00 malignant neoplasm of colon (procedure) [code = 060916543] Future Scheduled 2018 [facility] Test 00:00:00 malignant neoplasm of colon (procedure) [code = 601477309] Future Scheduled 1980 COVID-19 Vaccine (1) [facility] Test 00:00:00 [code = COVID-19 Vaccine (1)] Future Scheduled 1980 COVID-19 Vaccine (1) [facility] Test 00:00:00 [code = COVID-19 Vaccine (1)] Future Scheduled 1969-02-16 COVID-19 Vaccine (#1) [facility] Test 00:00:00 [code = COVID-19 Vaccine (#1)] Future Scheduled 1969-02-16 COVID-19 Vaccine (#1) [facility] Test 00:00:00 [code = COVID-19 Vaccine (#1)] Future Scheduled 1968 Fluoride Varnish [code H [facility] Test 00:00:00 = Fluoride Varnish] Encounters Start End Encounter Admission Attending Care Care Encounter Source Date/Time Date/Time Type Type Clinicians Facility Department ID 2022-07-28 Outpatient [facility] [id number] [place] 07:23:29 [id number] [facility] 2022-07-01 Outpatient [facility] [id number] [place] 09:45:24 [id number] [facility] 2022-06-21 Outpatient [facility] [id number] [place] 12:05:58 [id number] [facility] 2022-06-15 Outpatient [facility] [id number] [place] 11:13:15 [id number] [facility] 2022-05-23 Outpatient [facility] [id number] [place] 15:06:41 [facility] 2022-02-27 Outpatient [facility] [id number] [place] 13:36:34 [id number] [facility] 2022-02-24 Outpatient [facility] [id number] [place] 09:21:19 [id number] [facility] 2022-02-22 Outpatient [facility] [id number] [place] 06:54:13 [id number] [facility] 2022-02-13 Outpatient [facility] [id number] [place] 17:29:23 [facility] 2021-09-14 Inpatient ZURI GargMN [facility] [id number] [facility] 10:00:00 Rosmery Lai [facility] 2021-09-[address] [facility] [id number] Univers 20:29:39 ity of [facility] 2021-09-[address] [facility] [id number] Univers 08:58:54 ity of [facility] 2021-09-[address] [facility] [id number] Univers 10:57:48 ity of [facility] 2021-09-[address] [facility] [id number] [facility] Saroj Coates [facility] [id number] [facility] 10:22:48 12 [facility] 2020-11-30 Inpatient Frankel, HCACL DAYS [id number] [facility] 14:00:00 Dhruvil [id number] [facility] 2020-11-27 Inpatient Frankel, HCACL DAYS [id number] [facility] 08:30:00 Dhruvil [id number] [facility] 2020-11-26 Inpatient ZURI MartinezMN MRAD [id number] [facility] 14:29:00 Dhruvil 34 [facility] 2020-11-13 Inpatient EM EDYOON, HCAMN MRAD [id number] [facility] 13:08:00 GENERIC 08 [facility] 2020-10-24 Inpatient HCACL SARA [id number] [facility] 21:12:00 [id number] [facility] 2020-10-24 Inpatient HCAMN KAITLYNN [id number] [facility] 17:30:00 66 [facility] 2020-10-16 Inpatient THALIA Frankel, HCACL DAYS [id number] [facility] 08:00:00 Dhruvil [id number] [facility] 2020-10-03 Inpatient HCAMN KAITLYNN [id number] [facility] 12:12:00 31 [facility] 2020-08-15 Inpatient HCAMN KAITLYNN [id number] [facility] 07:53:00 15 [facility] 2020-02-20 [facility] [id number] [facility] 08:15:00 36 [facility] 2022-07-08 2022-07-08 [id number] Univers 08:20:00 08:20:00 JEROD zuniga [facility] 2022-07-08 2022-07-08 [facility] [id number] Univers 08:20:00 [facility]20[facility]30 2022-06-30 Orders Doctor JEMAL [id number] Univers 00:00:00 00:00:00 Only Unassigned, ARMANDO [id number] ity [address] [place] [facility] [id number] [place] as [id number] [address] 2022-06-29 2022-06-29 Outpatient R JERE, [facility] [id number] Univers 13:00:00 13:00:00 JEROD donnelly [facility] 2022-06-27 2022-06-27 Telephone JereRUST 1.2.401.663 [id number] Univers 00:00:00 00:00:00 Jerod RENEE 350.1.13.10 it[place] of [place] [phone] [place] dical NAL 059 [facility] 2022-06-27 2022-06-27 Orders Doctor JEMAL 1.2.840.114 [id number] Univers 00:00:00 00:00:00 Only Unassigned, ARMANDO 350.1.13.10 ity of [place] [facility] 4.2.7.2.686 [place]wyn as [phone] [address] 2022-06-22 2022-06-22 Outpatient R JERE, [facility] [id number] Univers 11:00:00 11:00:[address] [facility] 2022-06-22 2022-06-22 Outpatient R JERE, [facility] [id number] Univers 10:00:00 10:08:[address] [facility] 2022-06-14 2022-06-14 Orders Doctor JEMAL 1.2.840.114 [id number] Univers 00:00:00 00:00:00 Only Unassigned, ARMANDO 350.1.13.10 [facility] 4.2.7.2.686 [place] [phone] [address] 2022-06-13 2022-06-13 Outpatient R JERE, [facility] [id number] Univers 10:00:00 10:45:[address] [facility] 2022-06-13 2022-06-13 Office Jere, [facility] 1.2.840.114 [id number] Univers 10:00:00 10:45:17 Visit Jerod [facility] 350.1.13.10 ity [facility] [place] [phone] Tx dical NAL 9 [facility] 2022-05-12 2022-05-14 [facility], 1.2.840.1 [id number] Methodi 19:19:00 10:47:00 Encounter Abbie 73698.1.[address] 3.430.2.7 Hospit a .3.084985 l .8 2022-05-12 2022-05-14 [facility], 1.2.840.1 [id number] Methodi 19:19:00 10:47:00 Encounter Abbie 49127.1.[address] 3.430.2.7 Hospit a .3.307917 l .8 2022-05-13 2022-05-13 Anesthesia Maritza Blake [place] 1.2.840 .1 [id number] Methodi 11:18:00 13:25:00 Event Figueroa Eid 70330.1.[address] 3.430.2.7 Hospit a .3.568586 l .8 2022-05-13 2022-05-13 Anesthesia Maritza Blake [place] 1.2.840 .1 [id number] Methodi 11:18:00 13:25:00 Event Figueora Eid 71983.1.[address] 3.430.2.7 Hospit a .3.342158 l .8 2022-05-13 2022-05-13 Surgery Tavo Yusuf 1.2.840.1 [id number] Methodi 11:05:00 13:20:[address] 3.430.2.7 Hospit a .3.440865 l .8 2022-05-13 2022-05-13 Surgery Tavo Yusuf 1.2.840.1 [id number] Methodi 11:05:00 13:20:[address] 3.430.2.7 Hospit a .3.520499 l .8 2022-05-06 2022-05-06 Nurse JEMAL Buckley 1.2.840.114 [id number] 75 Univers 00:00:00 00:00:00 Triage Joanna ROBERTS 350.1.13.10 i ty [facility] 4.2.7.2.686 [place] [phone] [address] 2022-05-06 2022-05-06 Telephone CODY Oquendo 1.2.262.214 [id number] 4334 Univers 00:00:00 00:00:00 Jerod RENEE 350.1.13.10 ity [facility] [place] [phone] Tx dical NAL 059 [facility] 2022-04-15 2022-04-15 Lab [facility] [id number] 00:00:00 00:00:[address] [facility] 2022-04-15 2022-04-15 Lab [facility] [id number] 00:00:00 00:00:[address] [facility] 2022-04-14 2022-04-14 [facility] [id number] Univers 13:20:00 13:20:00 JEROD zuniga [facility] 2022-04-14 2022-04-14 Lab [facility] [id number] 00:00:00 00:00:00 Requisitio [facility] 2022-04-14 2022-04-14 Lab [facility] [id number] 00:00:00 00:00:00 Requitio [facility] 2022-03-23 2022-03-23 Emergency X [facility] ERT [id number] Univers 16:51:00 18:37:00 CHIVO zuniga of [facility] 2022-03-23 2022-03-23 [facility] 1.2.015.452 [id number] Univers 16:51:00 18:37:00 Chivo RENEE 350.1.13.10 i ty [facility] 4.2.7.2.686 [facility] [id number] [facility] [address] 2022-02-15 2022-02-15 Out[facility] [id number] Univers 11:00:00 11:00:[address] [facility] 2022-02-15 2022-02-15 [facility] [id number] Univers 11:00:00 11:00:[address] [facility] 2022-02-10 2022-02-10 Telephone [facility] 1.2.141.788 [id number] Univers 00:00:00 00:00:00 Varunradha LLOYDTON 350.1.13.10 ity of [place] [phone] Tx dical NAL 9 [facility] 2022-02-08 2022-02-08 [facility] [id number] Univers 12:47:16 23:59:00 DESIANN ity o f [facility] 2022-02-08 2022-02-08 [facility] [id number] Univers 13:00:00 13:00:00 VARUNRADHA leilay o f [facility] 2022-01-26 2022-01-26 Committee [facility] 1.2.840.114 [id number] Univers 00:00:00 00:00:00 Review Kai Downey MULTISPEC 350.1.13.10 it[place] of [place] C[place] [phone] [facility] AND [address] [facility] 2022-01-26 2022-01-26 Telephone [facility] 1.2.840.114 [id number] Univers 00:00:00 00:00:00 Kai Downey MULTISPEC 350.1.13.10 [place] [id number] [facility] AND [address] [facility] 2022-01-18 2022-01-18 Telephone [facility] 1.2.547.726 [id number] 0811 Univers 00:00:00 00:00:00 Jerod RENEE 350.1.13.10 ity of [place].2.[place] [id number] Tx dical NAL 9 [facility] 2022-01-17 2022-01-17 Outpatient [facility] [id number] Univers 11:00:00 11:00:00 HARINDER zuniga [facility] 2022-01-17 2022-01-17 Outpatient R [facility] [id number] Univers 11:00:00 11:00:00 HARINDER zuniga [facility] 2022-01-13 2022-01-13 Office JereRUST 1.2.840.114 [id number] Univers 15:40:00 16:00:00 Visit Jerod RENEE 350.1.13.10 ity of [facility] 4.2.7.2.[place] [phone] Tx dical NAL 059 [facility] 2022-01-13 2022-01-13 Outpatient [facility] [id number] Univers 15:40:00 15:40:00 JEROD zuniga o f [facility] 2022-01-06 2022-01-07 Emergency X [facility] ERT [id number] Univers 23:32:00 05:14:00 [facility] 2022-[facility]-06 2022-01-07 Emergency [facility] 1.2.110.637 [id number] Univers 23:32:00 05:14:00 Tomas Blake LLOYDHAYLEY 350.1.13.10 ity of [facility] 4.2.7.2.[place] [phone] [facility] [address] [place] 2022-01-06 2022-01-07 Emergency X [facility] ERT [id number] Univers 23:32:00 05:14:00 DALTONALEXIJEN [facility] 2021-12-30 2021-12-30 Outpatient [facility] [id number] Univers 16:00:00 16:00:00 CODEY [facility] 2021-12-27 2021-12-27 Office [facility] 1.2.840.114 [id number] Univers 16:00:00 17:00:00 Visit Codey LLOYDHAYLEY 350.1.13.10 i ty of [facility] 4.2.7.2.[place] [phone] Tx dical NAL 204 [facility] 2021-12-27 2021-12-27 Outpatient [facility] [id number] Univers 16:00:00 16:00:00 [facility] 2021-12-26 2021-12-26 Emergency X JERSEYRUST ERT [id number] Univers 11:18:00 13:30:00 SHEEBA itroshan [facility] 2021-12-26 2021-12-26 Emergency Faulconer, TRAUMA 1.2.840.114 [id number] Univers 11:18:00 13:30:00 [facility] 350.1.13.10 it y [place] [phone] [facility] [address] [place] 2021-12-24 2021-12-24 Orders Doctor JEMAL 1.2.840.114 [id number] Univers 00:00:00 00:00:00 Only Unassigned, ARMANDO 350.1.13.10 ity of [place] [facility] 4.2.7.2.686 Gwyn as [phone] [facility] [address] [place] 2021-12-22 2021-12-22 Outpatient Toney [facility] [id number] Univers 14:30:00 14:30:00 [facility] 2021-12-22 2021-12-22 Case BAR Goodman 1.2.840.114 [id number] Univers 00:00:00 00:00:00 Management Marta XAVIER 350.1.13.10 it[place] of [place].7.2.[place] [phone] [facility] [address] [place] 2021-12-13 2021-12-13 Emergency Teresa EVANSRUST ERT [id number] Univers 11:25:00 13:18:00 RAFAEL zuniga [facility] 2021-12-13 2021-12-13 Emergency RUST 1.2.651.405 [id number] Univers 11:25:00 13:18:00 Rafael RENEE 350.1.13.10 i ty of [facility] 4.2.7.2.686 [place] [phone] [facility] [address] [place] 2021-12-13 2021-12-13 Orders Doctor JOAQUIN 1.2.840.114 [id number] Univers 00:00:00 00:00:00 Only Unassigned, ARMANDO 350.1.13.10 ity of [place] [facility] 4.2.7.2.686 [place] as [phone] [address] 2021-12-13 2021-12-13 Telephone [facility] 1.2.840.114 [id number] Univers 00:00:00 00:00:00 Quinn A MULTISPEC 350.1.13.10 [place] [phone] [address] [facility] 2021-12-13 2021-12-13 Case [facility] 1.2.840.114 [id number] Univers 00:00:00 00:00:00 Management Quinn A MULTISPEC 350.1.13.10 [place] [phone] [address] [facility] 2021-11-26 2021-11-26 Telephone [facility] 1.2.840.114 [id number] Univers 00:00:00 00:00:00 Quinn A MULTISPEC 350.1.13.10 it[place].2.[place] [phone] [address] [facility] 2021-11-17 2021-11-17 Out[facility] [id number] Univers 09:00:00 09:00:00 JEROD ity o f [facility] 2021-11-11 2021-11-11 Telephone [facility] 1.2.840.114 [id number] Univers 00:00:00 00:00:00 Quinn A MULTISPEC 350.1.13.10 ity of [place] 4.2.7.2.686 [facility] [phone] [address] [facility] 2021-11-04 2021-11-04 Outpatient [facility] [id number] Univers 08:00:00 08:00:00 QUINN ity o f [facility] 2021-11-04 2021-11-04 Outpatient R [facility] [id number] Univers 08:00:00 08:00:00 QUINN ity o f [facility] 2021-11-03 2021-11-03 Outpatient R RADIOLOGY [facility] [id number] Univers 08:24:53 23:59:00 ity of [facility] 2021-11-03 2021-11-03 Hospital Radiology [facility] 1.2.840.114 [id number] Univers 08:24:53 23:59:00 Encounter [place] 350.1.13.10 ity of [place] 4.2.7.2.686 [facility] [phone] [facility] [address] 2021-10-22 2021-10-22 Outpatient R [facility] [id number] Univers 10:18:45 23:59:00 QUINN ity o f [facility] 2021-10-22 2021-10-22 [facility] 1.2.881.459 [id number] 1441 Univers 10:15:00 23:59:00 Encounter Quinn A [place] 350.1.13.10 ity of [place] 4.2.7.2.686 [facility] [id number] [facility] [address] 2021-10-21 2021-10-21 [facility] 1.2.019.166 [id number] Univers 12:56:45 23:59:00 Encounter Quinn A [place] 350.1.13.10 ity of [place] 4.2.7.2.686 [facility] [phone] [facility] [address] 2021-10-21 2021-10-21 [facility] 1.2.771.601 [id number] 7534 Univers 12:52:56 12:55:00 Encounter Quinn A [place] 350.1.13.10 ity of [place] 4.2.7.2.686 [facility] [phone] [facility] [address] [place] 2021-10-21 2021-10-21 Outpatient R [facility] [id number] Univers 00:00:00 12:55:00 QUINN ity o f [facility] 2021-09-282021-09-28 Office Rome Brar [facility] 1.2 .840.114 [id number] Univers 13:00:00 13:45:00 Visit Fe Kai Nasreen MULTISPEC 350.1.13 .10 ity of [place]2.[place] [id number] [facility] [address] [place] [place] [facility] 2021-09-28 2021-09-28 Rn Correctional, Transplant Social [facility] 1.2.840.114 [id number] Univers 12:36:00 13:21:00 Management Fe Kai Nasreen MULTISPEC 350.1 .13.10 ity of [place] 4.2.7.2.686 [facility] [place] [id number] [facility] [address] [place] [facility] 2021-09-28 2021-09-28 Tearer Tearer, Transplant [facility] 1. 2.840.114 [id number] Univers 12:35:47 13:20:47 Visit Fe Kai A MULTISPEC 350.1.13 .10 ity of [place] 4.2.7.2.686 [facility] [place] [phone] [facility] [address] [place] [place] [facility] 2021-09-28 2021-09-28 Veneer Department Manager Vtc-Lab [facility] 1.2.840.114 [id number] Univers 12:34:58 13:04:58 Visit Fe Kai Downey MULTISPEC 350.1.13 .10 ity of [place] 4.2.7.2.686 [facility] [place] [phone] [facility] [address] [place] [facility] 2021-09-28 2021-09-28 Outpatient R FE [facility] [id number] Univers 13:00:00 13:00:00 KAI ity o f [facility] 2021-09-28 2021-09-28 Orders Doctor JEMAL 1.2.840.114 [id number] Univers 00:00:00 00:00:00 Only Unassigned, ARMANDO 350.1.13.[address] [place] [facility] 4.2.7.2.686 Gwyn as [phone] [facility] [address] 2021-09-21 2021-09-21 Outpatient R CARLOS-CRU [facility] [id number] Univers 13:30:00 13:30:00 ROME MART ity of [facility] 2021-09-20 2021-09-20 Case [facility] 1.2.840.114 [id number] Univers 00:00:00 00:00:00 Management Quinn A MULTISPEC 350.1.13.10 ity of [place] 4.2.7.2.686 [facility] [id number] [facility] [place] [address] [facility] 2021-09-15 2021-09-15 Telephone [facility] 1.2.840.114 [id number] Univers 00:00:00 00:00:00 Kai A MULTISPEC 350.1.13.10 ity of [place] 4.2.7.2.686 [facility] [id number] [facility] [place] [address] [facility] 2021-09-08 2021-09-08 Orders Doctor JEMAL 1.2.840.114 [id number] Univers 00:00:00 00:00:00 Only Unassigned, ARMANDO 350.1.13.[address] [place] [facility] 4.2.7.2.686 Gwyn as [phone] [facility] [address] 2021-08-12 2021-08-12 [facility] 1.2.840.114 [id number] Univers 15:50:00 23:59:00 Encounter [facility] 350.1.13.10 ity of [place] 4.2.7.2.686 [facility] [phone] [facility] Primary & [address] Specialty Care 2021-08-12 2021-08-12 [facility]gent [facility] 1.2.840. 114 [id number] Univers 15:27:03 15:42:03 Care Unknown, Attending HEALTH 350.1.13.10 ity of [place] 4.2.7.2.686 [facility] [id number] [facility] Primary & [address] [facility] 2021-08-12 2021-08-12 Outpatient Toney SYBIL WVRICKY [facility] [id number] Univers 15:30:00 15:30:00 ATTENDING ity of [facility] 2021-08-05 2021-08-05 Outpatient THALIA Frankel [facility] DAYS [id number] [facility] 07:27:00 07:27:00 Dhruvil 64 [facility] 2021-08-05 2021-08-05 Outpatient THALIA Frankel [facility] DAYS [id number] [facility] 07:27:00 07:27:00 Dhruvil [id number] [facility] 2021-08-04 2021-08-04 Outpatient Marlys [facility] DAYS [id number] [facility] 13:30:00 13:30:00 Dhruvil [id number] [facility] 2021-07-10 2021-07-10 Emergency Yeni [facility] 1.2.840.114 [id number] [facility] 16:18:00 20:29:00 [facility] 350.1.13.10 it [facility] 4.2.7.2.686 [facility] [phone] [address] ([facility]) 2021-07-09 2021-07-10 Emergency CORY Chao, ZURIMN KAITLYNN [id number] [facility] 21:31:00 01:20:00 Xi [facility] 2021-04-30 2021-04-30 Outpatient Saroj Coates [facility] [id number] [facility] 08:50:00 08:50:00 16 [facility] 2021-04-30 2021-04-30 Outpatient Saroj Carmona [facility] DAYS BP0 [id number] [facility] 02:24:00 02:24:00 24 [facility] 2021-04-29 2021-04-29 Telephone Fe [facility] 1.2.840.114 [id number] 00:00:00 00:00:00 Kai Downey [facility]ULTISPEC [facility]13.10 [facility] 4.2.7.2.686 [place] [phone] AND KEVIN Rich [facility] 2021-04-29 2021-04-29 Telephone FeRUST 1.2.840.114 [id number] Univers 00:00:00 00:00:00 Kai Downey MULTISPEC 350.1.13.10 it[place] of [place].2.[place] C[place] [id number] [facility] [place] [address] DI[facility] 2021-02-08 2021-02-08 Outpatient [facility] [id number] [facility] 16:30:00 16:30:00 Pilyl [id number] [facility] 2021-01-30 2021-01-31 Emergency Bull, [place] 1.2.84 0.114 [id number] 19:24:00 00:56:00 Mohamud Mann [place] 350.1.13.10 4.2.7.2.686 [id number] 014 2021-01-30 2021-01-31 Emergency Bull, [place] 1.2.84 0.114 [id number] Univers 19:24:00 00:56:00 [facility] [place] 350.1.13.10 [place] [id number] [facility] [address] 2021-01-23 2021-01-[address] [facility] [id number] Univers 11:35:00 11:35:00 ity of [facility] 2021-01-23 2021-01-23 Outpatient GCCOVIDV GCCOVIDV [id number] GCCOVID 00:00:00 00:00:00 V 2021-01-13 2021-01-13 [facility] [id number] Univers 10:15:00 10:15:00 KAI ity o f [facility] 2021-01-02 2021-01-[address] [facility] [id number] Univers 11:45:00 11:45:00 ity of [facility] 2021-01-02 2021-01-02 Outpatient GCCOVIDV GCCOVIDV [id number] GCCOVID 00:00:00 00:00:00 V 2020-12-28 2020-12-28 Transition Bar Mulligan 1.2.840.114 [id number] Univers 00:00:00 00:00:00 of Care Minnieraisa Xavier 350.1.13.10 i ty of [place]2.7.2.[place] [phone] [facility] [address] 2020-12-21 2020-12-24 Inpatient [facility] [id number] Univers 15:38:00 13:50:00 CAMILO ity [facility] 2020-12-16 2020-12-16 Outpatient R [facility] [id number] Univers 10:15:00 10:15:00 QUINN ity o f [facility] 2020-12-02 2020-12-02 Outpatient R [facility] [id number] Univers 13:00:00 13:00:00 ity [facility] 2020-12-02 2020-12-02 Telephone [facility] 1.2.840.114 [id number] 00:00:00 00:00:00 Quinn A MULTISPEC 350.1.13.10 [place] 4.2.7.2.686 [place] [id number] AND KEVIN 312 [facility] 2020-12-02 2020-12-02 Telephone [facility] 1.2.840.114 [id number] Univers 00:00:00 00:00:00 Quinn A MULTISPEC 350.1.13.10 ity of [place].7.2.686 [place] [id number] [facility] [address] DI[facility] 2020-11-24 2020-11-24 Case [facility] 1.2.840.114 [id number] 00:00:00 00:00:00 Management Quinn A MULTISPEC 350.1.13.10 [place] 4.2.7.2.686 [place] [id number] AND KEVIN [address] [facility]IN[facility] 2020-11-24 2020-11-24 Case [facility] 1.2.840.114 [id number] Univers 00:00:00 00:00:00 Management Quinn A MULTISPEC 350.1.13.10 it[place] of [place].2.[place] [id number] [facility] [address] [facility]INIC 2020-11-17 2020-11-17 Telephone [facility] 1.2.840.114 [id number] Univers 00:00:00 00:00:00 Kai Downey MULTISPEC 350.1.13.10 it[place] of [place] [id number] [facility] [address] [place] DI[facility] CLINIC 2020-11-01 2020-11-02 Emergency [facility] TRAUMA 1.2.840.114 [id number] Univers 20:00:00 02:24:00 , [facility] 350.1.13.10 it y [place] [id number] [facility] [address] 2020-11-01 2020-11-02 Emergency X [facility] ERT [id number] Univers 20:00:00 02:24:00 , RYAN ity of [facility] 2020-10-21 2020-10-21 Transition Bar Alfaro 1.2.840.114 [id number] Univers 00:00:00 00:00:00 of Care Soila Xavier 350.1.13.10 it y of [place] [id number] [address] 2020-10-20 2020-10-20 Outpatient Marlys [facility] DAYS [id number] [facility] 10:15:00 10:15:00 Dhruvil [id number] [facility] 2020-10-20 2020-10-20 Transition Bar Alfaro 1.2.840.114 [id number] Univers 00:00:00 00:00:00 of Care Soila Xavier 350.1.13.10 it y of [place] [id number] [facility] [address] 2020-10-18 2020-10-19 Emergency Tala Blanton 1.2.8 40.114 [id number] Univers 13:09:00 13:10:00 Winter, Quinn P [place] 350.1.13.10 ity of Hospital 4.2.7.2.686 Gwyn as [id number] [facility] [address] 2020-09-29 2020-09-29 Outpatient Marlys, HCAMN MCTS [id number] [facility] 10:00:00 10:00:00 Dhruvil 30 [facility] 2020-09-17 2020-09-17 Outpatient Fatoumata, [facility] [id number] [facility] 09:00:00 09:00:00 Alfredo 28 [facility] 2020-09-09 2020-09-09 Telephone [facility] [id number] [facility] 00:00:00 00:00:[address] [place] MULTISPEC 350.1.13.10 ity of IALTY 4.2.7.2.686 [facility] [id number] [facility] [address] [place] [facility] 2020-08-15 2020-08-15 Outpatient Balbir, HCACL LABO [id number] 02-23 [facility] 14:17:00 14:17:00 Haydee [id number] [facility] 2020-06-25 2020-06-25 [facility] [id number] Univers 11:01:00 23:59:00 Encounter Kai ROBERTS 350.1.13.10 ity of HOSPITAL 4.2.7.2.686 Gwyn as [id number] [facility] [address] 2020-06-25 2020-06-25 Outpatient R FE [facility] ACO [id number] Univers 00:00:00 00:00:00 KAI ity o f [facility] 2020-06-25 2020-06-25 Letter FeRUST [id number] Univers 00:00:00 00:00:00 (Out) Kai Downey MULTISPEC 350.1.13.10 ity of IALTY 4.2.7.2.686 [facility] [phone] [facility] BROWN [address] [place] [facility] 2020-06-24 2020-06-24 Telephone FeRUST 1.2.840.114 [id number] Univers 00:00:00 00:00:00 Kai Downey MULTISPEC 350.1.13.10 [place] [phone] [facility] AND [address] [facility] 2020-04-06 2020-04-07 Emergency X SADIERUST ERT [id number] Univers 22:44:24 01:28:00 JUAN R zuniga [facility] 2020-04-01 2020-04-01 Office [facility] [id number] Univers 14:27:38 15:31:19 Visit Jemal [place] 350.1.13.10 ity of CARE 4.2.7.2.686 [facility] AT [id number] [place] nancyalba MATTHEWRoshan [address] [facility] 2020-04-01 2020-04-01 Outpatient R [facility] [id number] Univers 15:00:00 15:00:00 JEMAL zuniga of [facility] 2020-04-01 2020-04-01 Transition Bar Alfaro 1.2.840.114 [id number] Univers 00:00:00 00:00:00 of Care Soila Xavier 350.1.13.10 it y of [place] 4.2.7.2.686 [facility] [phone] [facility] [address] 2020-03-27 2020-03-29 [facility] Carolyncoltongerg Ofeliajen [facility] 1.2.840. 114 [id number] Univers 21:42:10 15:30:00 Encounter Jenn Dwyer 350.1.13.10 ity of [place] Dwyer 4.2.7.2.686 [facility] [id number] [facility] [address] 2020-03-27 2020-03-27 [facility] 1.2.840.114 [id number] Univers 09:42:00 21:41:00 Encounter Jemal CONTRERAS 350.1.13.10 ity of CLINICS [place] [id number] [facility] [address] 2020-03-27 2020-03-27 [facility] Darlene 1.2.840.114 [id number] Univers 09:00:00 09:41:00 Encounter Jemal Roberts 350.1.13.10 ity of [facility] 4.2.7.2.686 [place]wyn as [phone] [facility] [address] [place] 2020-03-27 2020-03-27 Outpatient R [facility] [id number] Univers 09:28:06 09:28:06 JEMAL ity [facility] 2020-03-27 2020-03-27 Nurse JEMAL Chand 1.2.840.114 [id number] Univers 00:00:00 00:00:00 Triage Ora ARMANDO 350.1.13.[address] [facility] 4.2.7.2.686 Wgyn as [phone] [facility] [address] [place] [place] 2020-03-27 2020-03-27 Telephone [facility] 1.2.840.114 [id number] Univers 00:00:00 00:00:00 Jemal BROWN 350.1.13.10 [place] [phone] [place] dicalba SOTELO [address] [facility] 2020-03-25 2020-03-26 Office [facility] 1.2.465.052 [id number] Univers 13:40:53 10:11:00 Visit Jemal BROWN 350.1.13.10 [place] [phone] [place] padmaja SOTELO [address] [facility] 2020-03-26 2020-03-26 Orders Doctor JEMAL 1.2.840.114 [id number] Univers 00:00:00 00:00:00 Only Unassigned, ARMANDO 350.1.13.10 ity of [facility] 4.2.7.2.686 [place] as [phone] [facility] [address] [place] 2020-03-25 2020-03-25 Outpatient R [facility] 05447 [id number] Univers 13:59:08 23:59:00 JEMAL zuniga [facility] 2020-03-25 2020-03-25 [facility] 1.2.840.114 [id number] Univers 13:59:00 23:59:00 Encounter Jemal SPECIALTY 350.1.13.10 [place] [phone] [place] padmaja SOTELO [address] [facility] 2020-03-25 2020-03-25 [facility] [id number] Univers 14:20:00 14:20:00 JEMAL efrain [facility] 2020-03-23 2020-03-23 Abstract CruzRUST 1.2.840.114 [id number] Univers 00:00:00 00:00:00 Indira Sruthi SPECIALTY 350.1.13.10 [place] [phone] [place] padmaja SOTELO [address] [facility] 2020-03-20 2020-03-20 Telephone [facility] 1.2.840.114 [id number] Univers 00:00:00 00:00:00 Jemal WETZEL 350.1.13.10 it y of [facility] [place].2.7.2.686 [place] [facility] [phone] [facility] [address] [place] [place] 2020-02-27 2020-02-27 Transition Jaret Mulliganjosie 1.2.840.114 [id number] Univers 00:00:00 00:00:00 of Care Minnie Xavier 350.1.13.10 i ty of [place] [phone] [facility] [address] [place] 2020-02-25 2020-02-26 Outpatient X RAFA [facility] [id number] Univers 07:55:51 16:21:00 VERO zuniga [facility] 2020-02-25 2020-02-26 Emergency Tala Blanton [facility] 1.2.8 40.114 [id number] Univers 07:55:51 16:21:00 Vero Elias 350.1.13.10 ity of [place] [phone] [facility] [address] [place] 2020-02-20 2020-02-20 Outpatient Saroj Coates [facility] REF BN0 [id number] [facility] 08:16:00 08:16:00 32 [facility] 2019-12-31 2020-01-01 Emergency Harvinder, [facility] 1.2.840.114 [id number] Univers 20:13:57 00:33:00 Tala Renee 350.1.13.10 ity of [place] [facility].2.7.2.686 [facility] [phone] [facility] [address] [place] 2019-12-26 2019-12-26 Outpatient R [facility] [id number] Univers 10:29:47 23:59:00 CARLOS ity of [facility] 2019-12-26 2019-12-26 [facility] 1.2.722.671 [id number] Univers 10:29:00 23:59:00 Encounter Carlos Renee 350.1.13.10 ity of [place] 4.2.7.2.686 [facility] [phone] [facility] [address] [place] 2019-12-04 2019-12-04 Hospital Radiology [facility] 1.2.840.114 [id number] Univers 08:51:00 23:59:00 Encounter Madeline 350.1.13.10 ity of [place] 4.2.7.2.686 [facility] [phone] [facility] [address] [place] 2019-12-04 2019-12-04 Outpatient R RADIOLOGY [facility] [id number] Univers 08:33:28 08:50:00 ity of [facility] 2019-12-04 2019-12-04 Hospital Radiology [facility] 1.2.840.114 [id number] Univers 08:33:00 08:50:00 Encounter Madeline 350.1.13.10 ity of [place] 4.2.7.2.686 [facility] [phone] [facility] [address] [place] [place] 2019-12-04 2019-12-04 Orders Doctor JEMAL 1.2.840.114 [id number] Univers 00:00:00 00:00:00 Only Unassigned, ARMANDO 350.1.13.10 ity of [facility] 4.2.7.2.686 [place] as [phone] [facility] [address] 2019-11-26 2019-11-26 Emergency Luz [facility] 1.2.840.114 [id number] Univers 13:07:34 16:34:00 Wanda Renee 350.1.13.10 ity of [place].2.[place] [phone] [facility] [address] 2019-11-26 2019-11-26 Orders Doctor JEMAL 1.2.840.114 [id number] Univers 00:00:00 00:00:00 Only Unassigned, ARMANDO 350.1.13.10 ity of [facility] 4.2.7.2.686 [place] [phone] [facility] [address] [place] 2019-11-21 2019-11-21 Orders Doctor JEMAL 1.2.840.114 [id number] Univers 00:00:00 00:00:00 Only Unassigned, ARMANDO 350.1.13.10 ity of [facility] 4.2.7.2.686 [place] [phone] [facility] [address] [place] 2019-11-20 2019-11-20 Transition Bar Zelaya 1.2.840.114 [id number] Univers 00:00:00 00:00:00 of Care Lizz Xavier 350.1.13.10 it y of [place].2.7.2.[place] [phone] [facility] [address] 2019-11-18 2019-11-19 Outpatient X CHAMP [facility] [id number] Univers 23:47:40 18:50:00 VALENTINO itroshan of [facility] 2019-11-18 2019-11-19 Emergency Michael Meza 1.2.840. 114 [id number] Univers 23:47:40 18:50:00 Valentino Freeman Armando 350.1.13.10 ity of [facility] 4.2.7.2.686 [place] [phone] [facility] [address] 2019-10-25 2019-10-25 Outpatient Toney JEAN [facility] [id number] Univers 08:15:00 08:46:34 CHARISSE dowell [facility] 2019-08-23 2019-08-23 Outpatient R HUSSEIN [facility] EDITA [id number] 4178 Univers 11:02:00 16:14:00 CHARISSE deey o delmer [facility] 2019-07-26 2019-07-26 Hospital Radiology [facility] 1.2.840.114 [id number] Univers 10:19:00 23:59:00 Encounter Madeline 350.1.13.10 ity of [place] [phone] [facility] [address] 2019-07-26 2019-07-26 Hospital Radiology [facility] 1.2.840.114 [id number] Univers 10:18:08 10:18:08 Encounter Madeline 350.1.13.10 ity of [place]2.[place] [phone] [address] 2019-07-26 2019-07-26 Office [facility] 1.2.840.114 [id number] [facility] 09:14:38 09:45:25 Visit Charisse Renee 350.1.13.10 ity of [place].2.[place] [phone] [address] 2019-07-26 2019-07-26 Outpatient [facility] [id number] [facility] 08:00:00 09:45:25 CHARISSE donnelly delmer [facility] 2019-07-19 2019-07-19 Emergency [facility] 1.2.710.515 [id number] Univers 02:20:47 04:23:00 Tomas Renee 350.1.13.10 ity of [place].2.[place] [phone] [place] [address] [place] 2019-07-02 2019-07-02 Office [facility] 1.2.840.114 [id number] Univers 08:48:16 20:21:43 Visit Charisse Renee 350.1.13.10 ity of [place] [phone] [facility] 2019-07-02 2019-07-02 Letter LiRUST 1.2.840.114 [id number] Univers 00:00:00 00:00:00 (Out) Gaston Lloydton 350.1.13.10 i ty of [place] [phone] [facility] [address] [facility] 2019-06-17 2019-06-17 [facility] Jerod Oquendo [facility] 1.2.840.114 [id number] Univers 12:58:27 23:59:00 Encounter Tech, Adc Cardio Vascular [place] 3 50.1.13.10 ity of [place] [phone] [address] 2019-06-17 2019-06-17 Orders Doctor JEMAL 1.2.840.114 [id number] Univers 00:00:00 00:00:00 Only Unassigned, ARMANDO 350.1.13.10 ity of [facility] 4.2.7.2.686 [place] [phone] [address] 2019-06-13 2019-06-13 [facility] 1.2.840.114 [id number] Univers 12:42:36 23:59:00 Encounter Ar, Adc Cardio Vascular [place] 3 50.1.13.10 ity of [place] 4[place].2.[place] [phone] [address] 2019-06-13 2019-06-13 Orders Doctor JEMAL 1.2.840.114 [id number] Univers 00:00:00 00:00:00 Only Unassigned, ARMANDO 350.1.13.10 ity of [facility] 4.2.7.2.686 [place] [phone] [address] 2019-06-05 2019-06-05 [facility] 1.2.840.114 [id number] Univers 00:00:00 00:00:00 Management Charisse Madeline 350.1.13.10 ity of [place].2.[place] [phone] [address] 2019-04-26 2019-04-26 Outpatient R RADIOLOGY [facility] [id number] Univers 00:00:00 23:59:00 ity of [facility] 2019-04-19 2019-04-19 Outpatient R HUSSEIN [facility] [id number] Univers 08:15:00 08:23:02 CHARISSE dowell [facility] 2019-04-16 2019-04-16 Outpatient R RADIOLOGY [facility] [id number] Univers 00:00:00 23:59[facility] 2019-03-26 2019-03-31 Inpatient X MONTY, [facility] JAIDEN [id number] Univers 23:28:57 13:00:00 ALEXY [facility] 2019-01-03 2019-01-03 Outpatient R DOLLY, [facility] [id number] Univers 08:00:00 08:00:00 VIOLETA [facility] 2019-01-01 2019-01-01 Outpatient R HUSSEINRUST EDITA [id number] Univers 09:39:08 10:54:00 CHARISSE dowell [facility] 2018-07-12 2018-07-12 Outpatient [facility] [id number] Memoria 15:45:00 21:00:00 toney Rivas 00 l [facility] 2018-07-12 2018-07-12 Outpatient [place] [id number] Memoria 15:45:00 21:00:00 toney Rivas 00 l [facility] 2018-07-12 2018-07-12 Outpatient NORMA Saleh [place] [id number] 10:45:00 16:00:00 Charly Rodriges 2018-04-24 2018-04-24 Orders Doctor JEMAL 1.2.840.114 [id number] Univers 00:00:00 00:00:00 Only Unassigned, ARMANDO 350.1.13.[address] [place] [facility] 4.2.7.2.686 [place] [phone] [address] Results Test Description Test Time Test Comments Results Result Comments Source ECG Pre/Post Op 2022-05-13 19:46:18 Test Item Value Reference Range Interpretation Comme nts Ventricular rate (test code = 253) Atrial rate (test code = 255) TN interval (test code = 266) QRSD interval (test code = 260) QT interval (test code = 264) QTC interval (test code = 265) P axis 1 (test code = 267) QRS axis 1 (test code = 268) T wave axis (test code = 270) EKG impression (test code = 273) Normal sinus rhythm-Rightward axis-Nonspecific intraventricular block-Abnormal ECG-No previous ECGs available- [facility] [place] Pre/Post [id number] 19:46:18 Test Item Value Reference Range Interpretation Comments Ventricular rate (test code = 253) Atrial rate (test code = 255) TN interval (test code = 266) QRSD interval (test code = 260) QT interval (test code = 264) QTC interval (test code = 265) P axis 1 (test code = 267) QRS axis 1 (test code = 268) T wave axis (test code = 270) EKG impression (test Normal sinus code = 273) rhythm-Rightward axis-Nonspecific intraventricular block-Abnormal ECG-No previous ECGs available- [facility] [id number] 18:32:00 Test Item Value Reference Range Interpretation Comments POC glucose (test code 82 mg/dL 65-99 Opera tor Name: Pugh = 25018-0) Collette Cutler ID : [id number] able: [facility] Notified RN [facility] [id number] 18:32:00 Test Item Value Reference Range Interpretation Comments POC glucose (test code 82 mg/dL 65-99 Opera tor Name: Pugh = 39434-9) Collette Cutler ID : [id number] able: [facility] Notified [facility] [id number] 20:36:01 Test Item Value Reference Range Interpretation Comments Hepatitis C Ab (test code = Reactive Nonreactive A 71696-9) ROSE (test code = ROSE) [employer] Worker ID - BS Lab Interpretation (test Abnormal code = 24424-3) [facility] [id number] 20:36:01 Test Item Value Reference Range Interpretation Comments Hepatitis C Ab (test code = Reactive Nonreactive A 45066-3) ROSE (test code = ROSE) [employer] Worker ID - BS Lab Interpretation (test Abnormal code = 30837-1) [place] [facility] [id number] 20:36:01 Test Item Value Reference Range Interpretation Comments HEPATITIS C ANTIBODY (BEAKER) (test Reactive Nonreactive A code = 367) [employer] Worker ID - BSHepatitis B core antibody, [id number] 20:35:17 Test Item Value Reference Range Interpretation Comments Hep B Core Total Ab (test Nonreactive Nonreactive code = 77794-1) ROSE (test code = ROSE) [employer] Worker ID - BS Lab Interpretation (test Normal code = 46420-8) [place] [facility] antibody, [id number] 20:35:17 Test Item Value Reference Range Interpretation Comments Hep B Core Total Ab (test Nonreactive Nonreactive code = 71187-9) ROSE (test code = ROSE) [employer] Worker ID - BS Lab Interpretation (test Normal code = 17321-4) [place] [facility] B CORE ANTIBODY, [id number] 20:35:17 Test Item Value Reference Range Interpretation Comments HEPATITIS B CORE TOTAL ANTIBODY Nonreactive Nonreactive (BEAKER) (test code = 497) [employer] Worker ID - BSHepatitis B surface [id number] 20:35:12 Test Item Value Reference Range Interpretation Comments Hepatitis B surface Nonreactive Nonreactive antigen (test code = 5195-3) ROSE (test code = ROSE) Specimen is considered negative for HBsAg. Lab Interpretation (test Normal code = 16330-7) [place] [facility] hospitaltis B surface [id number] 20:35:12 Test Item Value Reference Range Interpretation Comments Hep B S Ab (test code 37.5 See_Comment H [Auto mated = 72305-1) message] The system which generated this result transmit darrion reference range : <8.0 mIU/mL. Th e reference range was not used to interpret this result as normal/abnormal . ROSE (test code = ROSE) [employer] Worker ID - BS Lab Interpretation Abnormal (test code = 23558-5) [place] [facility] surface [id number] 20:35:12 Test Item Value Reference Range Interpretation Comments Hepatitis B surface Nonreactive Nonreactive antigen (test code = 5195-3) ROSE (test code = ROSE) Specimen is considered negative for HBsAg. Lab Interpretation (test Normal code = 44422-7) [place] [facility] surface [id number] 20:35:12 Test Item Value Reference Range Interpretation Comments Hep B S Ab (test code 37.5 See_Comment H [Auto mated = 30366-3) message] The system which generated this result transmit darrion reference range : <8.0 mIU/mL. Th e reference range was not used to interpret this result as normal/abnormal . ORSE (test code = ROSE) [employer] Worker ID - BS Lab Interpretation Abnormal (test code = 29114-7) [place] [facility] SURFACE [id number] 20:35:12 Test Item Value Reference Range Interpretation Comments HEPATITIS B SURFACE ANTIGEN (2) Nonreactive Nonreactive (BEAKER) (test code = 2585) Specimen is considered negative for HBsAg.HEPATITIS B SURFACE [id number] 20:35:12 Test Item Value Reference Range Interpretation Comments HEPATITIS B SURFACE ANTIBODY 37.5 mIU/mL <8.0 H (BEAKER) (test code = 647) [employer] Worker ID - BSHEPATITIS B SURFACE [id number] 23:25:59 Test Item Value Reference Range Interpretation Comments HEPATITIS B SURFACE ANTIBODY 33.0 mIU/mL <8.0 H (BEAKER) (test code = 647) [employer] Worker ID - ADMINHEPATITIS B SURFACE [id number] 23:25:57 Test Item Value Reference Range Interpretation Comments HEPATITIS B SURFACE ANTIGEN (2) Nonreactive Nonreactive (BEAKER) (test code = 2585) Specimen is considered negative for HBsAg.GLUCOSE [id number] 11:50:00 Test Item Value Reference Range Interpretation Comments GLUCOSE BEDSIDE (test 84 MG/DL 70-110 N [facility] med by certified code = GLUBED) electronic scanner operator at [facility] BASIC METABOLIC [id number] 09:20:00 Test Item Value Reference Range Interpretation [...] = 6.5 mg/dL 8.0-10.5 L CA) GLUCOSE [id number] 09:04:00 Test Item Value Reference Range Interpretation Comments GLUCOSE BEDSIDE (test 79 MG/DL 70-110 N [facility] med by certified code = GLUBED) electronic scanner operator at [facility] COVID 19 Asymptomatic IH [id number] 15:30:00 Test Item Value Reference Range Interpretation [...] moderate, high or waivedcomplexit y tests. PROTHROMBIN [id number] 14:36:00 Test Item Value Reference Range Interpretation [...] (to prevent recurrent infar ct). THROMBOPLASTIN TIME [id number] 14:36:00 Test Item Value Reference Range Interpretation Comments THROMBOPLASTIN TIME 33.9 Seconds 25.0-39.5 N Therape utic Range: PARTIAL (test code = 50.4 - 88.3 Seconds PTT) Effective 02/19/2019 BASIC METABOLIC [id number] 14:28:00 Test Item Value Reference Range Interpretation [...] 8.3 mg/dL 8.0-10.5 N CA) CBC W/AUTO [id number] 14:05:00 Test Item Value Reference Range Interpretation [...] NO = MDIFF) - XR CHEST 2 [id number] 00:00:00 [facility] CHRISTINE CASCADEName: VLADIMIR MAGUIRE : 1970 Sex: M FAX: Rosmery Cohen MD [place]: St: PRE FAX: Beth Correia MD [phone] FAX: Tamika Hadley Name: VLADIMIR MAGUIRE [facility] [place] : 1970 Age/S: 50/M [address] [place] [address] Unit #: [id number] Loc: [place] [address] Phys: Tamika Hadley MANAGER PARKING Acct: [id number] Dis Date: Status: PRE [facility] PHONE #: [phone] Exam Date: 08/04/2021 1434 FAX #: [phone] Reason: PREOP EXAMS: CPT CODE: [id number] XR CHEST 2 V 49339 PROCEDURE INFORMATION: Exam: XR Chest Exam date [...] NP Technologist: RT Supriya(R) Trnscrd Date/Time/By: 08/04/2021 (0676) : By: [email or web address] Orig Print D/T: S: 08/04/2021 (8646) PAGE 1 Signed Report- XR KNEE 3 V [id number] 23:20:00 [facility] MA[facility]LAND[facility]: PRESLEY VLADIMIR : 1970 Sex: M FAX: Rosmery Cohen MD [place]: St: [facility] FAX: Gisel Dwyer MD Name: VLADIMIR MAGUIRE [facility] : 1970 Age/S: 50/M [address] [facility] Unit #: [id number] Loc: [address] Phys: [place] [address] Acct: [id number] Dis Date: Status: REG ER PHONE #: [phone] Exam Date: 07/09/20212314 FAX #: [phone] Reason: fall injury EXAMS: CPT CODE: [id number] XR KNEE 3 [place] [address] Examination: Bilateral knees 3 views Location code: H60 Comparison: None Discussion: Clinical history is r emarkable for trauma. Fell. Pain. Patient is status post below the right knee amputation. Stump is normal in appearance. No acute erosive changes are identified. Left knee prosthesis is identified and is in good position. There is no evidence for acute fracture. No lytic or blastic lesions identified.Vascular calcifications are noted. Impression: 1. Left knee prosthesis in good position. 2. No evidence for acute fracture or dislocation. 3. Status post right below knee dictation. at 2320 Reported and signed by: HELEN WALLACE CC: Rosmery Braun MD; Gisel Dwyer MD Technologist: Loren Haines Trnwird Date/Time/By: 07/09/2021 (2320) : By: [email or web address] PAGE 1 Signed Report FAX: Rosmery Cohen MD [place]: St: [facility] FAX: Gisel Dwyer MD Name: PRESLEYVLADIMIR [facility] : 1970 Age/S: 50/M [address] [facility] Unit #: [id number] Loc: [address] [place]: [place] [address] Acct: [id number] Dis Date: Status: REG ER PHONE #: [phone] Exam Date: 07/09/20212314 FAX #: [phone] Reason: fall injury EXAMS: CPT CODE: [id number] XR KN[place] [address] <Continued> Orig Print D/T: S: 07/09/2021 (8160) PAGE 2 Signed Report- XR FOREARM 2 VIEWS [id number] 23:18:00 [facility] PRESLEY VLADIMIR : 1970 Sex: M FAX: Rosmery Cohen MD [place]: St: REG FAX: Gisel Dwyer MD Name: PRESLEYVLADIMIR [facility] : 1970 Age/S: 50/M [address] [facility] Unit #: [id number] Loc: [address] Phys: [place] [address] Acct: [id number] Dis Date: Status: REG ER PHONE #: [phone] Exam Date: 07/09/2021 2315 FAX #: [phone] Reason: fall injury EXAMS: CPT CODE: [id number] XR FOREARM 2 [place] [address]Kavckimkucu: Right hand 3 views, right forearm 2 [...] fracture. at 2318 Reported and signed by: HLEEN WALLACE CC: Rosmery Braun MD; Gisel Dwyer MD Technologist: Loren Haines Trnwird Date/Time/By: 07/09/2021 (8008) : By: [email or web address] PAGE 1 Signed Report FAX: Rosmery Cohen MD [place]: St: REG FAX: Gisel Dwyer MD Name: VLADIMIR MAGUIRE [facility] : 1970 Age/S: 50/M [address] [facility] Unit #: [id number] Loc: [address] [place] [address] Phys: [place] [address] Acct: [id number] Dis Date: Status: REG ER PHONE #: [phone] Exam Date: 07/09/2021 2315 FAX #: [phone] Reason: fall injury EXAMS: CPT CODE: [id number] XR [place] [address] [place] [address] <Continued> Orig PrintD/T: S: 07/09/2021 (5570) PAGE 2 Signed Report- XR HUMERUS 2 + V RT 2021-07-09 23:18:00 [facility] : 1970 Sex: M FAX: Rosmery Cohen MD [place]: St: REG FAX: Gisel Dwyer MD Name: VLADIMIR MAGUIRE [facility] : 1970 Age/S: 50/M [address] [facility] Unit #: [id number] Loc: [address] Phys: [place] [address] Acct: [id number] Dis Date: Status: REG ER PHONE #: [phone] Exam Date: 07/09/20212314 FAX #: [phone] Reason: fall injury EXAMS: CPT CODE: [id number] XR HUMERUS 2 + V RT 94913Pqwsaosdjbv: Right hand 3 views, right forearm 2 [...] Rosmery Braun MD; Gisel Dwyer MD Technologist: Loren Haines Trnscrd Date/Time/By: 07/09/2021 (9221) : By: [email or web address] PAGE 1 Signed Report FAX: Rosmery Cohen MD [place]: St: REG FAX: Gisel Dwyer MD Name: VLADIMIR MAGUIRE [facility] : 1970 Age/S: 50/M [address] [facility] Unit #: [id number] Loc: [address] [place]: [place] [address] Acct: [id number] Dis Date: Status: REG ER PHONE #: [phone] Exam Date: 07/09/20212314 FAX #: [phone] Reason:fall injury EXAMS: CPT CODE: [id number] XR HUMERUS 2 + [place] [address] <Continued> Orig Print D/T: S: 07/09/2021 (6253) PAGE 2 Signed Report- XR HAND 3 + V RT 2021-07-09 23:18:00 [facility] VALDIMIR MAGUIRE : 1970 Sex: M FAX: Rosmery Cohen MD [place]: St: REG FAX: Gisel Dwyer MD Name: VLADIMIR MAGUIRE [facility] : 1970 Age/S: 50/M [address] [facility] [employer] Unit #: [id number] Loc: E.[address] [place], [place]: [place] [address] Acct: [id number] Dis Date: Status: REG ER PHONE #: [phone] Exam Date: 07/09/20212314 FAX #: [phone] Reason: fall injury EXAMS: CPT CODE: [id number] XR HAND 3 + [place] [address] Examination: Right hand 3 views, right forearm 2 views and right humerus 2 views Location code: H60 [facility] parison: None Discussion: Clinical history is remarkable for [...] Rosmery Braun MD; Gisel Dwyer MD Technologist: Loren Haines Trnscrd Date/Time/By: 07/09/2021 (2318) : By: MartinVR5 PAGE 1 Signed Report FAX: Rosmery Cohen MD [place]: St: REG FAX: Gisel Dwyer MD Name: VLADIMIR MAGUIRE [facility] : 1970 Age/S: 50/M [address] [facility] Unit #: [id number] Loc: E.ERS2 [place], [place]: [place] [address] Acct: [id number] Dis Date: Status: REG ER PHONE #: [phone] Exam Date: 07/09/2021 2315 FAX #: [phone] Reason: fall injury EXAMS: CPT CODE: [id number] XR HAND 3 + V RT 74836 <Continued> Orig Print D/T: S: 07/09/2021 (8673) PAGE 2 Signed ReportSURGICAL [id number] 17:11:00 Test Item Value Reference Range Interpretation Comments SURGICAL SPECIMENS (test code = SURG) RUN DATE: 05/03/21 [facility] - LAB PAGE 1 RUN TIME: 1711 Specimen Inquiry RUN USER: INTERFACE PATIENT: [facility]ADIM[facility] [place] [id number] AGE/SX: 50/M ROOM: RE04/30/21[facility] DR: Saroj Coates MD (GEN EDITA : 66 BED: DIS: STATUS: [facility] TLOC: SPEC #: [id number] RECD: 04/30/21 STATUS: NEIL RELeonard #: [id number] BENEDICTO: 04/30/21 [facility] DR: Saroj Coates MD (GEN SURG) ENTERED: 04/30/21 SP TYPE: SURG OTHR DR: Rosmery Braun MD ORDERED: [id number], PATH SPEC, H E STAIN HISTOLOGY: TISSUE ID BLK PCS GHADA LEV / PROCEDURE DISPOSITION ____ ___ ___ ___ ___ PILONIDAL CYST A 1 1 TISSUES: A. PILONIDAL CYST - Pilonidal Cyst CLINICAL HISTORY Pilonidal cyst/abscess. FINAL DIAGNOSIS PILONIDAL CYST, EXCISION: - SKIN WITH SINUS TRACT LINED BY INFLAMED GRANULATION TISSUE, CONSISTENT WITH PILONIDAL CYST CPT 96272 GROSS DESCRIPTION Received in formalin labeled with the patient's name and "pilonidal cyst/abscess" are two irregularly-shaped fragments of skin and underlying soft tissue, upon reapproximation measuring 4.0 x 3.5 x 3.0 cm. The skin (3.0 x 1.0 cm) is grossly unremarkable sandoval-coker. The cut surface shows an abscess cavity, 1.2 cm in diameter. [employer] sections are submitted in one cassette. CM/ph MICROSCOPIC DESCRIPTION PERFORMED - Signed SIGNATURE ON FILE Mel Cleaning MD 05/03/21 1711 END OF REPORT BASIC METABOLIC [id number] 07:30:00 Test Item Value Reference Range Interpretation [...] BACK AND SHAYNA PAGE, on 04/30/21, @ 1546.Please not e: New Reference Range Dec 2020 CALCIUM (test code = 6.6 mg/dL 8.7-10.4 L Please note: New CA) Reference Range Dec 2020 COVID Asymptomatic IH [id number] 13:16:00 Test Item Value Reference Interpretation Comments [...] i ts performancechar acteristics were determined by [facility]. Thi s test has notbeen FDA [...] setting? Unknown? NoAge at collection: YBASIC METABOLIC [id number] 12:02:00 Test Item Value Reference Range Interpretation [...] . CREATININE (test 13.80 mg/dL 0.70-1.30 Critical Ri lue code = CREAT) reported toFir st Name:SALLY Last Name:DOMI JONES READ BACK AND VERIFIEDby BEBETO ZAMBRANO, on 04/27/21, @ 1202.Please not e: New Reference Range Dec 2020 CALCIUM (test code = 6.3 mg/dL 8.7-10.4 L Please note: New CA) Reference Range Dec 2020 BASIC METABOLIC [id number] 11:50:00 Test Item Value Reference Range Interpretation [...] CA) Reference Range Dec 2020 CBC W/AUTO [id number] 11:25:00 Test Item Value Reference Range Interpretation [...] = BA#) 0.05 x10 3/uL 0.0-0.20 N [id number] 14:50:00 Test Item Value Reference Range Interpretation Comments GLUBED (test code = GLUBED) 109 MG/DL 70-105 H [id number] 08:36:00 Test Item Value Reference Range Interpretation Comments POTASSIUM (test code = K) 4.9 mmol/L 3.5-5.1 N COVID Asymptomatic IH [id number] 10:58:00 Test Item Value Reference Interpretation Comments [...] i ts performancechar acteristics were determined by [facility]. Thi s test has notbeen FDA [...] setting? Unknown? NoAge at collection: YBASIC METABOLIC [id number] 12:16:00 Test Item Value Reference Range Interpretation [...] rate . CREATININE (test 14.50 mg/dL 0.70-1.[address] [facility] lue code = CREAT) reported Robb castillo Name:ILANA Mackey Name:LAZARO MATHIS READ BACK AND VERIFIEDby P.LA B.CK, on 03/29/21, @ 1216.Please not e: New Reference Range Dec 2020 CALCIUM (test code = mg/dL 8.7-10.4 CA) BASIC METABOLIC [id number] 12:16:00 Test Item Value Reference Range Interpretation [...] rate . CREATININE (test 14.50 mg/dL 0.70-1.[address] [facility] lue code = CREAT) reported Robb castillo Name:ILANA Mackey Name:LAZARO MATHIS READ BACK AND VERIFIEDby P.LA B.CK, on 03/29/21, @ 1216.Please not e: New Reference Range Dec 2020 CALCIUM (test code = 6.8 mg/dL 8.7-10.4 L Please note: New CA) Reference Range Dec 2020 CBC W/AUTO [id number] 11:54:00 Test Item Value Reference Range Interpretation [...] 0.0-0.20 N - CT ABD PELVIS W/O [id number] 16:57:00 [facility] VLADIMIR MAGUIRE : 1970 Sex: M Name: VLADIMIR MAGUIRE [facility] [place] : 1970 Age/S: 50 / M [address] [place] [address] Blvd Unit #:[id number] Loc: [place] [address] Phys: Beth Frankel MD Acct: [id number] Dis Date: Status: REG CLI PHONE #: [phone] Exam Date: 02/08/2021 161 FAX #: [phone] Reason: T85.691A, MALFUNCTION OF PD CATHETER. EXAMS: CPT CODE: [id number] CT ABD PELVIS W/O CONT 09349 CT abdomen and pelvis without contrast dated 02/08/2021 INDICATION: T 85.691A. Malfunction of peritoneal dialysis catheter. COMPARISON: CT abdomen dated 10/24/2020 TECHNIQUE: A CT of the abdomen pelvis was performed using helicalimages from the thoracic outlet through the pubic symphysis with subsequent sagittal and coronal reconstruction. IV CONTRAST: None. GI CONTRAST: None. CT imaging performed at this location utilizes radiation dose optimization techniques which include one or more of the followin) Automated exposure control; 2) Adjustment of mA and/or kV; 3) Use of iterative reconstructive technique. CT radiation dose DLP (mGy-cm): 505. FINDINGS: SOLID ORGANS: No acute CT [...] appear acutely inflamed. The colon demonstrates no ev idence of diverticular disease or acute inflammatory wall [...] 1 Signed Report (CONTINUED) Name: VLADIMIR MAGUIRE [facility] : 1970 Age/S: 50 / M [address] [place] [address] Blvd Unit #: [id number] Loc: [place] [address] Phys: Beth Frankel MD Acct: [id number] Dis Date: Status: REG CLI PHONE #: [phone] Exam Date: 02/08/2021 1617 FAX #: [phone] Reason: T85.691A, MALFUNCTION OF PD CATHETER. EXAMS: CPT CODE: [id number] CT ABD PELVIS W/O CONT 56340 (Continued) retroperitoneal mass or adenopathy. PELVIS: Bladder assessment is limited by low bladder volume. No enlarged pelvic lymph nodes are identified. LOWER CHEST: The lung bases appear clear of acute disease. Left diaphragmatic elevation is noted with scarring or atelectasis in the left base. ADDITIONAL FINDINGS: None. IMPRESSION: 1. No acute CT abnormalities of the abdomen or pelvis are detected. SL: 131 Electr onically Signed by Octavio Harris on 02/08/2021 at 1657 Reported and signed by:Chuck Harris M.D. CC: Rosmery Braun; Beth Frankel MD Technologist:RT Lupe(R) CTDI: DLP: Trnscb Date/Time: 02/08/2021 (1657) t.AGUSTINR.DMM Orig Print D/T: S: 02/08/2021 (1700) PAGE 2 Signed [id number] 16:25:00 Test Item Value Reference Range Interpretation Comments GLUBED (test code = 108 MG/DL 70-110 N Performe d by certified GLUBED) electronic scanner operator at [facility] BASIC METABOLIC [id number] 13:08:00 Test Item Value Reference Range Interpretation [...] code = 8.4 mg/dL 8.0-10.5 N CA) [id number] 13:01:00 Test Item Value Reference Range Interpretation Comments GLUBED (test code = 66 MG/DL 70-110 L Performe d by certified GLUBED) electronic scanner operator at [facility] CBC W/AUTO [id number] 12:58:00 Test Item Value Reference Range Interpretation [...] (test code NO = MDIFF) CBC W/AUTO [id number] 12:55:00 Test Item Value Reference Range Interpretation [...] (test code = MDIFF) Novel Coronavirus 2018 [id number] 06:55:00 Test Item Value Reference Range Interpretation [...] for the identification of SARS-CoV-2 RNA usingthe TXCOM M2000 Sy stem under the FDA Emergen cy UseAuthorizatio n. The testing is perf ormed by personneltramelia d in the procedures for the Tadeo M2000 molecular diagnostic SARS-CoV-2 assa y in vitro. BASIC METABOLIC [id number] 12:58:00 Test Item Value Reference Range Interpretation [...] = 9.2 mg/dL 8.0-10.5 N CA) PROTHROMBIN [id number] 12:47:00 Test Item Value Reference Range Interpretation [...] (to prevent recurrent infar ct). THROMBOPLASTIN TIME [id number] 12:47:00 Test Item Value Reference Range Interpretation Comments THROMBOPLASTIN TIME 36.5 Seconds 25.0-39.5 N Therape utic Range: PARTIAL (test code = 50.4 - 88.3 Seconds PTT) Effective 02/19/2019 CBC W/AUTO [id number] 12:35:00 Test Item Value Reference Range Interpretation [...] code NO = MDIFF) - XR ABDOMEN [id number] 15:08:00 [facility] : 1970 Sex: M FAX: Rosmery Cohen MD [place]: St: PRE FAX: Beth Correia MD [phone] Name: VLADIMIR MAGUIRE [facility] : 1970 Age/S: 50/M [address] [facility] Unit #: [id number] Loc: E.RAD [place], [place] [address] Acct: [id number] Dis Date: Status: PRE CLI PHONE #: [phone] Exam Date: 11/26/2020 [facility]6 FAX #: [phone] Reason: PERITONEAL DILAYSIS CATHETER DYSFUNCTION EXAMS:CPT CODE: [id number] XR ABDOMEN 2V 64111 Location code: H5 Abdomen Two Views Indication: [...] Reported and signed by: José Luis Alvarez M.D.PAGE 1 Signed Report (CONTINUED) FAX: Rosmery Cohen MD [place]: St: PRE FAX: Beth Correia MD [phone] Name:VLADIMIR MAGUIRE [facility] : 1970 Age/S: 50/M [address] [facility] Unit #: [id number] Loc: [place], [place]: [place] [address] Acct: [id number] Dis Date: Status: PRE CLI PHONE #: [phone] Exam Date: 11/26/2020 1456 FAX #: [phone] Reason: PERITONEAL DILAYSIS CATHETER DYSFUNCTION EXAMS: CPT CODE: [id number] XR ABDOMEN 2V 42803 <Continued> CC: Rosmery Braun MD; Beth Frankel MD Technologist: SOHAIL BERNARD Trnscrd Date/Time/By: 11/26/2020 (9209) : By: Tracy PAGE 2 Signed Report FAX: Rosmery Cohen MD [place]: St: PRE FAX: Beth Correia MD [phone] Name: VLADIMIR MAGUIRE [facility] : 1970 Age/S: 50/M [address] Unit#: [id number] Loc: [employer] [place], [place]: [place] [address] Acct: [id number] Dis Date: Status: PRE CLI PHONE #: [phone] Exam Date: 11/26/2020 1456 FAX #: [phone] Reason: PERITONEAL DILAYSIS CATHETER DYSFUNCTION EXAMS: CPT CODE: [id number] XR ABDOMEN 2V 89880 <Continued>Orig Print D/T: S: 11/26/2020 (1514) PAGE 3 Signed Report- XR ABDOMEN 1 [id number] 14:29:00 [facility] : 1970 Sex: M FAX: Rosmery Cohen MD [place]: CORY St: REG Name: VLADIMIR MAGUIRE [facility] : 1970 Age/S: 50/M [address] [employer] Unit #: [id number] Loc: [employer] [place], [place] Phys: EDDOC, GENERIC FOR EDM [address]10 Acct: [id number] Dis Date: Status: REG CLI PHONE #: [phone] Exam Date: 11/13/2020 1352 FAX #: [phone] Reason: PD CATH MALFUNCTION EXAMS: CPT CODE: [id number] XR ABDOMEN 1 V 36183 EXAM: ABDOMEN ONE VIEW INDICATION: PD CATH [...] thepelvis. There is a possible kink. at 1428 Reported and signed by: Donna Mullins M.D. CC: Rosmery Braun MD Technologist: ANA BARRETO Trnscrd Date/Time/By: 11/13/2020 (2394) : By: MartinMD16 PAGE 1 Signed Report FAX: Rosmery Cohen MD [place]: St: REG Name: VLADIMIR MAGUIRE [facility] : 1970 Age/S: 50/M [address] [facility] Unit #: [id number] Loc: JOURDAN [place], [place] Phys: EDDOC, GENERIC FOR EDM [address]78 Acct: [id number] Dis Date: Status: REG CLI PHONE #: [phone] Exam Date: 11/13/2020 1352 FAX #: [phone] Reason: PD CATH MALFUNCTION EXAMS: CPT CODE: [id number] XR ABDOMEN 1 V 64434 <Continued> OrigPrint D/T: S: 11/13/2020 (1432) PAGE 2 Signed Report [id number] 08:30:00 Test Item Value Reference Range Interpretation [...] may amelia y by method. BASIC METABOLIC [id number] 17:02:00 Test Item Value Reference Range Interpretation [...] code = 8.5 mg/dL 8.0-10.5 N CA) [id number] 17:02:00 Test Item Value Reference Range Interpretation [...] y by method. - XR CHEST 1 [id number] 16:17:00 [facility] 1970 Sex: M FAX: Tray Donald [phone] [place]: St: ADM FAX: Rosmery Cohen MD Name: VLADIMIR MAGUIRE [facility] : 1970 Age/S: 50/M [address] [place] [address] Unit #: [id number] Loc: G[address] [place] [address] Phys: DOES_NOT KNOW Acct: [id number] Dis Date: Status: ADM IN PHONE #: [phone] Exam Date: 12/27/2019 1616 FAX #: [phone] Reason: PAIN EXAMS: CPT CODE: [id number] XR CHEST 1 V 07766 XR CHEST 1 VIEW HISTORY: PAIN. COMPARISON: [...] Tray Linder MD; Rosmery Braun Technologist: RT Peter(Toney) Trnjayne Date/Time/By: 10/26/2020 (3817) : By: [email or web address] Orig Print D/T: S: 10/26/2020 (4482) PAGE 1 Signed Report- US ABDOMEN [id number] 14:11:00 [facility] : 1970 Sex: M Name: VLADIMIR MAGUIRE [facility] : 1970 Age/S: 50 / M [address] [place] [address] Unit #:[id number] Loc: [place] [address] Phys: Harpal Zamarripa MD Acct: [id number] Dis Date: Status: ADM INPHONE #: [phone] Exam Date: 10/26/2020 1157 FAX #: [phone] Reason: POSSIBLE PERTITONEAL FLUID INFECTION, RULE OUT. EXAMS: CPT CODE: [id number] US ABDOMEN LTD 09090 CLINICAL HISTORY: Possible peritoneal fluid infection,. Do [...] Technologist: Shira Fraire RDMS(AB) Trnscb Date/Time: 10/26/2020 (141) faySHANE Orig Print D/T: S: 10/26/2020 (3931) Probe: PAGE 1 Signed ReportPROTHROMBIN [id number] 13:56:00 Test Item Value Reference Range Interpretation [...] Bileaflet mecha nical valve in aortic position.2. [facility] hanical prosthetic valv es (high risk), 2. 5 - 3.5 Presence of Lup us Anticoagulant o r Antiphospholipi d Antibodies, Pre vention of systemic emb olism - Acute Myocardia l Infarction (to prevent recurrent infar ct). THROMBOPLASTIN TIME [id number] 13:56:00 Test Item Value Reference Range Interpretation Comments THROMBOPLASTIN TIME PARTIAL (test Seconds 25.0-39.5 code = PTT) PROTHROMBIN [id number] 13:56:00 Test Item Value Reference Range Interpretation [...] (to prevent recurrent infar ct). THROMBOPLASTIN TIME [id number] 13:56:00 Test Item Value Reference Range Interpretation Comments THROMBOPLASTIN TIME 33.8 Seconds 25.0-39.5 N Therape utic Range: PARTIAL (test code = 50.4 - 88.3 Seconds PTT) Effective 02/19/2019 BASIC METABOLIC [id number] 08:02:00 Test Item Value Reference Range Interpretation [...] 8.0-10.5 N CA) - XR CHEST 2 [id number] 17:16:00 [facility] : 1970 Sex: M FAX: Tray Donald [phone] [place]: St: ADM FAX: Rosmery Cohen MD FAX: Antonino Huff MD [phone] Name: VLADIMIR MAGUIRE [facility] [place] : 1970 Age/S: 50/M [address] [place] [address] Blvd Unit #:[id number] Loc: .[address] [place] [address] Phys: Antonino Huff MD Acct: [id number] Dis Date: Status: ADM IN PHONE #: [phone] Exam Date: 10/25/2020 1627 FAX #: [phone] Reason: ? opacity EXAMS: CPT CODE: [id number] XR CHEST 2 V 69202 Chest, 2 views dated 10/25/2020. HISTORY: ? opacity Comparison is made to a prior study dated 10/24/2020. The heart is normal in size. Atherosclerotic calcification is identified in the aortic arch. Left diaphragmatic elevation is again identified with stable co mpressive atelectasis of the left lung base. The [...] Rosmery Braun; Antonino Huff MD Technologist: RT Peter(Toney) Trnscrd Date/Time/By: 10/25/2020 (3550) : By: Castro Orig Print D/T: S: 10/25/2020 (3453) PAGE 1 Signed ReportAG HEPATITIS B [id number] 16:37:00 Test Item Value Reference Range Interpretation Comments AG HEPATITIS B SURFACE NON REACTIVE INDEX NonReactive (test code = HBSAG) - XR SHOULDER 2 + V [id number] 13:12:00 [facility] : 1970 Sex: M FAX: Tray Donald [phone] [place]: St: ADM FAX: Rosmery Cohen MD FAX: Antonino Huff MD [phone] Name: PRESLEYVLADIMIR [facility] : 1970 Age/S: 50/M [address] [place] [address] Unit #:[id number] Loc: G.[address] [place] [address] Phys: Antonino Huff MD Acct: [id number] Dis Date: Status: ADM IN PHONE #: [phone] Exam Date: 10/25/2020 1253 FAX #: [phone] Reason: Left shoulder region pain EXAMS: CPT CODE: [id number] XR SHOULDER 2 + V LT [address]56 PROCEDURE: Left Shoulder Radiographs. Clinical Indication: Left [...] MD Technologist: RT Peter(R) Trnscrd Date/Time/By: 10/25/2020 (3412) : By: MartinTDO Orig Print D/T: S: 10/25/2020 (0685) PAGE 1 Signed ReportCOVID 19 Asymptomatic IH [...] COMMENTS: If not done this admissionC REACTIVE [id number] 23:38:00 Test Item Value Reference Range Interpretation Comments C REACTIVE PROTEIN (test code = 19.0 mg/L <10.0 H CRP) CBC W/AUTO [id number] 22:45:00 Test Item Value Reference Range Interpretation [...] REQUIRED (test code NO = MDIFF) LACTIC [id number] 22:35:00 Test Item Value Reference Range Interpretation Comments LACTIC ACID (test code = LACT) 0.9 mmol/L 0.4-1.9 N Coronavirus 2018 nCoV [id number] 20:19:00 Test Item Value Reference Range Interpretation Comments Coronavirus 2019 Negative NEGATIVE Negative re sults should be nCoV Bedside (test treated a s presumptive and code = ifinconsistent with GRAHV26QZIRS) clinical signs and symptoms, or ne cessaryfor patient managem ent, should be tested with an alternativemole cular assay. Negative result s do not preclude YHVI-RbQ-2tbcab tion and should not be u sed as the sole basis forp atient management deci sions. Negative result s should beconsidered in the context of a patient's recent exposures,histo ry, presence of clinical sig ns and symptoms consis tentwith COVID-19. BASIC METABOLIC [id number] 18:28:00 Test Item Value Reference Range Interpretation [...] L Specimen comments: Clean CatchHEPATIC FUNCTION PANEL [id number] 18:28:00 Test Item Value Reference Range Interpretation [...] N code = ALKP) Specimen comments: Clean [id number] 18:28:00 Test Item Value Reference Range Interpretation Comments LIPASE (test code = LIP) 135 Units/L 65.0-230.0 N Specimen comments: Clean [id number] 18:28:00 Test Item Value Reference Range Interpretation Comments TROPONIN-I (test 0.02 NG/ML 0.00-0.06 N REFERENCE R GUTIERREZ TROPONIN code = TROPI) I HEALTHY KEYA VIDUALS: <0.06 ng/mL R/O ISCHEMIA: 0.07 - 0.60 ng/mL CUT-OFF R GUTIERREZ FOR AMI: 0.60 - 1.5 ng/mL Specimen comments: Clean Catch- CT ABD PELVIS W/O [id number] 18:26:00 [facility] : 1970 Sex: M FAX: Rosmery Cohen MD [place]: St: REG FAX: Mallory Gan MD [phone] Name: VLADIMIR MAGUIRE [facility] : 1970 Age/S: 50/M [address] [facility] Unit: [id number] Loc: [address] Phys: [place] [address] Acct: [id number] Dis Date: Status: REG ER PHONE #: [phone] Exam Date: 10/24/2020 1803 FAX #: [phone] Reason: abd pain, recent hernia repair and perit dialys EXAMS:CPT CODE: [id number] CT ABD PELVIS W/O CONT [address]00 CT ABDOMEN AND PELVIS W/O CONTRAST Location [...] Osseous structures demonstrate mild arthritic change. Stable appearanceto a mild developing sacral decubitus ulcer with mild induration within the soft tissues present. Nodestructive changes within the bones identified. IMPRESSION: 1. No acute intra-abdominal findings detected. PAGE 1 Signed Report (CONTINUED) FAX: Rosmery Cohen MD [place]: St: REG FAX: Mallory Gan MD [phone] Name: VLADIMIR MAGUIRE [facility] : 1970 Age/S: 50/M [address] [facility] Unit: [id number] Loc: [address] Phys: [place] [address] Acct: [id number] Dis Date: Status: REG ER PHONE #: [phone] Exam Date: 10/24/2020 180 FAX #: [phone] Reason: abd pain, re cent hernia repair and perit dialys EXAMS: CPT CODE: [id number] CT ABD PELVIS W/O CONT 21555 <Continued> 2. Peritoneal dialysis catheter is in good position. Atrophic kidneys. 3. Mildly elevated left hemidiaphragm and bibasilar atelectasis. at 1826 Reported and signed by: Francisco Pack M.D. CC: Rosmery Braun MD; Mallory Gan MD Technologist: JANIE MC; GRISELDA CHACON Trnscrd Dt/Tm: 10/24/2020 (1825) t.AGUSTINR.RK5 Orig Print D/T: S:10/24/2020 (1828 PAGE 2 Signed ReportBASIC METABOLIC [id number] 18:19:00 Test Item Value Reference Range Interpretation [...] 8.0-10.5 Specimen comments: Clean CatchHEPATIC FUNCTION PANEL [id number] 18:19:00 Test Item Value Reference Range Interpretation [...] 50.0-136.0 code = ALKP) Specimen comments: Clean [id number] 18:19:00 Test Item Value Reference Range Interpretation Comments LIPASE (test code = LIP) Units/L 65.0-230.0 Specimen comments: Clean [id number] 18:19:00 Test Item Value Reference Range Interpretation Comments TROPONIN-I (test code = TROPI) NG/ML 0.00-0.06 Specimen comments: Clean Catch- XR CHEST 1 [id number] 18:14:00 [facility] : 1970 Sex: M FAX: Rosmery Cohen MD [place]: St: REG FAX: Mallory Gan MD [phone] Name: VLADIMIR MAGUIRE [facility] : 1970 Age/S: 50/M [address] [facility] [employer] [facility] Unit #: [id number] Loc: [address]: [place] [address] Acct: [id number] Dis Date: Status: REG ER PHONE #: [phone] Exam Date: 10/24/2020 181 FAX #: [phone] Reason: Abdominal Pain EXAMS: CPT CODE: [id number] XR CHEST 1 V 45753 Site ID: [id number] HISTORY: Abdominal pain, bleeding at peritoneal dialysis catheter site COMPARISON: 3 days ago FINDINGS: No acute pulmonary infiltrate. Stable elevated left hemidiaphragm and left basilar atelectasis. The heart and pulmonary vasculature is normal. Osseous structures are unremarkable. IMPRESSION: Negative chest X-ray. [id number] Reported and signed by: Addison Arboleda M.D. CC: Rosmery Braun MD; Mallory Gan MD Technolog ist: ARELY GONZALEZ Trnscrd Date/Time/By: 10/24/2020 (1813) : By: MartinAJP6 PAGE 1 Signed Report FAX: Rosmery Cohen MD [place]: St: REG FAX: Mallory Gan MD [phone] Name: VLADIMIR MAGUIRE [facility] : 1970 Age/S: 50/M [address] [employer] Unit #: [id number] Loc: E.ERS2 [place], [place]: [place] [address] Acct: [id number] Dis Date: Status: REG ER PHONE #: [phone] Exam Date: 10/24/20201810 FAX #: [phone] Reason: Abdominal Pain EXAMS: CPT CODE: [id number] CHEST 1 V 06235 <Continued> Orig Print D/T: S: 10/24/2020 (1816) PAGE 2 Signed ReportPROTHROMBIN [id number] 18:10:00 Test Item Value Reference Range Interpretation Comments PROTHROMBIN TIME 11.4 SECONDS 9.9-12.8 N PATIENT (test code = PTP) INTERNATIONAL NORMAL 1.0 0.89-1.14 N THE INR IS TO BE USED RATIO (test code = ONLY FOR MONITORING INR) ORAL ANTICOAGULANTTH ERAPY. THE FOLLOWING A RE SUGGESTED RANGE S FROM [facility] LEGE OF CHEST PHYSICIANS:KEYA CATION INR VALUEPROPHY LAXIS OF VENOUS THROM BOSIS (ORTHOPEDIC EDITA ASHLEY) 2.0 - 3.0PROPHY LAXIS OF VENOUS THROM BOSIS (OTHER THAN HIG H-RISK SURGERY) 2.0 - 3.0TREATMENT OF DEEP VEIN THROMBOSIS OR PULMONARY EMBOL ISM 2.0 - 3.0PREVEN TION OF SYSTEMIC EMBOLI SM TISSUE HEART VA LVES 2.0 - 3.0 ACUTE MYOCARDIAL INFA RCTION (TO PREVENT SYS TEMIC EMBOLISM) 2.0 - 3.0 ACUTE MYOCARDIA L INFARCTION (TO PREVENT RECURRENT INFAR CT) 2.5 - 3.0 VALVULAR HEART DISEASE 2.0 - 3 .0 ATRIAL FIBRILAT ION 2.0 - 3.0BILEAF LET MECHANICAL VALV E IN AORTIC POSITION 2.0 - 3.0MECHANICAL PROSTHETIC VALV ES (HIGH RISK) 2.5 - 3.5PRESENCE OF LUPUS ANTICOAGULANT O R ANTIPHOSPHOLIPI D ANTIBODIES 2.5 - 3.5 Specimen comments: Clean CatchIs patient on anticoagulants? NTHROMBOPLASTIN TIME [id number] 18:10:00 Test Item Value Reference Range Interpretation [...] = 0.00 X10 3uL 0.00-0.01 N NRBC#) [id number] 06:12:00 Test Item Value Reference Range Interpretation Comments GLUBED (test code = 97 MG/DL 70-110 N Performe d by certified GLUBED) electronic scanner operator at [facility] [id number] 11:04:00 Test Item Value Reference Range Interpretation Comments GLUBED (test code = 122 MG/DL 70-110 H Performe d by certified GLUBED) electronic scanner operator at [facility] CBC W/AUTO [id number] 08:29:00 Test Item Value Reference Range Interpretation [...] (test code NO = MDIFF) BASIC METABOLIC [id number] 08:17:00 Test Item Value Reference Range Interpretation [...] code = 8.5 mg/dL 8.0-10.5 N CA) [id number] 08:04:00 Test Item Value Reference Range Interpretation Comments GLUBED (test code = 94 MG/DL 70-110 N Performe d by certified GLUBED) electronic scanner operator at [facility] - XR T-SPINE [id number] 18:08:00 [facility] : 1970 Sex: M FAX: Mery Crane MD [phone] [place]: St: ADM FAX: Seymour Garner [phone] FAX: Rosmery Cohen MD FAX: Beth Correia MD [phone] Name: VLADIMIR MAGUIRE [facility] : 1970 Age/S: 50/M [address] [place] [address] Blvd Unit #: [id number] Loc: G.[address] [place] [address] Phys: Seymour Osman PA-C Acct: [id number] Dis Date: Status: ADM IN PHONE #: [phone] Exam Date: FAX #: [phone] Reason: point tenderness around T7-T8 after fall-back h EXAMS: CPT CODE: [id number] XR T-SPINE 3V 38100 Procedure: Thoracic Spine Radiographs. Clinical Indication: Mid thoracic spine pain post fall, back hit toilet. Comparison: Lumbar radiographs 09/07/2017 FINDINGS: The 3 viewsof the thoracic spine show normal alignment of the thoracic spine. There are no fractures or subluxations. Minimal degenerative change involves the mid and lower thoracic spine including narrowing of the intervertebral disc spaces and marginal osteophyte formation. There has been previous cervical ACDF at C6-7 utilizing an anterior metallic plate and screws. There is fracturing of the mid portions ofthe superior screws. There is opacity at the left lung base. IMPRESSION: 1. Multilevel degenerative change. 2. Previous cervical ACDF with fractured screws. 3. Opacity at the left lung base. SL: OCO-H at 1808 Reported and signedby: Clayton Vasquez M.D. CC: Mery Crane MD; Seymour Osman; Rosmery Braun; Beth Frankel MD Technologist: Oly Madden, RT(R); Jacqueline Espitia RT(R) Trnwird Date/Time/By: 10/21/2020 (1807) : By: [email or web address] Orig Print D/T: S: 10/21/2020 (1810) PAGE 1 Signed [id number] 18:03:00 Test Item Value Reference Range Interpretation Comments GLUBED (test code = 126 MG/DL 70-110 H Performe d by certified GLUBED) electronic scanner operator at [facility] - XR ABDOMEN 1V (KUB)2020-10-21 17:46:00 [facility] CHRISTINE CASCADEName: VLADIMIR MAGUIRE : 1970 Sex: M FAX: Estiven Call MD [phone] [place]: St: ADM FAX: Mery Crane MD [phone] FAX: Rosmery Cohen MD FAX: Beth Correia MD [phone] Name: VLADIMIR MAGUIRE [facility] Christine Caldera : 1970 Age/S: 50/M [address] [place] [address] Unit #: [id number] Loc: G.[address] [address] Phys: Estiven Call MD Acct: [id number] Dis Date: Status: ADM IN PHONE #: [phone] Exam Date: 10/21/2020 174 FAX #: [phone] Reason: n/v, abdominal pain EXAMS: CPT CODE: [id number] XR ABDOMEN 1V (KUB) 17205 Procedure: Abdominal Radiograph. Clinical Indication: Nausea and [...] Estiven Call MD; Mery Crane MD; Rosmery Braun;Beth Frankel MD Technologist: Oly Madden, RT(R); Jacqueline Espitia, RT(R) Trnwird Date/Time/By: 10/21/2020 (174) : By: [email or web address] Orig Print D/T: S: 10/21/2020 (6797) PAGE 1 Signed [id number] 17:21:00 Test Item Value Reference Range Interpretation Comments GLUBED (test code = 101 MG/DL 70-110 N Performe d by certified GLUBED) electronic scanner operator at [facility] - XR CHEST 1 [id number] 17:06:00 [facility] : 1970 Sex: MFAX: Estiven Call MD [phone] [place]: St: [facility] FAX: Mery Crane MD [phone] FAX: Rosmery Cohen MD FAX: Beth Correia MD [phone] Name: VLADIMIR MAGUIRE [facility] : 1970 Age/S: 50/M [address] [place] [address] Blvd Unit #: [id number] Loc: [place] [address] Phys: Estiven Call MD Acct: [id number] Dis Date: Status: ADM IN PHONE #: [phone] Exam Date: 10/21/2020 1659 FAX #: [phone]: recent fall left sided rib hurting EXAMS: CPT CODE: [id number] XR CHEST 1 V 40151 Chest, single view dated 10/21/2020. HISTORY: Left [...] Yolande(R) Trnscrd Date/Time/By: 10/21/2020 (1706) : By: Castro Orig Print D/T: S: 10/21/2020 (0500) PAGE 1 Signed [id number] 12:18:00 Test Item Value Reference Range Interpretation Comments GLUBED (test code = 85 MG/DL 70-110 N Performe d by certified GLUBED) electronic scanner operator at [facility] ACUTE HEPATITIS [id number] 09:59:00 Test Item Value Reference Range Interpretation [...] is recommended if clinicallyindic ated. BASIC METABOLIC [id number] 08:02:00 Test Item Value Reference Range Interpretation [...] code = 8.2 mg/dL 8.0-10.5 N CA) [id number] 08:02:00 Test Item Value Reference Range Interpretation Comments PHOSPHOROUS (test code = PHOS) 8.0 MG/DL 2.5-4.9 H [id number] 08:02:00 Test Item Value Reference Range Interpretation Comments MAGNESIUM (test code = MAG) 2.26 mg/dL 1.80-2.40 N CBC W/AUTO [id number] 06:59:00 Test Item Value Reference Range Interpretation [...] DIFF REQUIRED (test code NO = MDIFF) [id number] 21:48:00 Test Item Value Reference Range Interpretation Comments GLUBED (test code = 140 MG/DL 70-110 H Performe d by certified GLUBED) electronic scanner operator at [facility] TSH REFLEX TO [id number] 17:15:00 Test Item Value Reference Range Interpretation Comments TSH REFLEX TO FT4 (test code = 1.59 IU/mL 0.42-5.47 N TSHREFLEX) HGBA1C%2020-10-20 17:06:00 Test Item Value Reference Range Interpretation Comments HGBA1C% (test code = HGBA1C%) 5.2 %A1C 4.8-6.0 N [id number] 16:37:00 Test Item Value Reference Range Interpretation Comments GLUBED (test code = 144 MG/DL 70-110 H Performe d by certified GLUBED) electronic scanner operator at [facility] [id number] 11:31:00 Test Item Value Reference Range Interpretation Comments GLUBED (test code = 128 MG/DL 70-110 H Performe d by certified GLUBED) electronic scanner operator at [facility] CBC W/AUTO [id number] 08:46:00 Test Item Value Reference Range Interpretation [...] (test code NO = MDIFF) BASIC METABOLIC [id number] 08:07:00 Test Item Value Reference Range Interpretation [...] code = 8.7 mg/dL 8.0-10.5 N CA) [id number] 07:46:00 Test Item Value Reference Range Interpretation Comments GLUBED (test code = 114 MG/DL 70-110 H Performe d by certified GLUBED) electronic scanner operator at [facility] Novel Coronavirus 2019 [id number] 21:59:00 Test Item Value Reference Range Interpretation [...] in vitro. COMMENTS: N- XR CHEST 2 [id number] 10:50:00 [facility] : 1970 Sex: M FAX: Rosmery Cohen MD [place]: St: PRE FAX: Beth Correia MD [phone] FAX: Tamika Hadley Name: VLADIMIR MAGUIRE [facility] : 1970 Age/S: 50/M [address] [place] [address] Unit #: [id number] Loc: [place] [address] Phys: Tamika Hadley NP Acct: [id number] Dis Date: Status: PRE SDC PHONE #: [phone] Exam Date: 10/16/2020924 FAX #: [phone] Reason: PRE-OP HERNIA REPAIR EXAMS: CPT CODE: [id number] XR CHEST 2 V 97398 EXAM: CHEST TWO VIEW HISTORY: 50-year-old male for preoperative evaluation, hernia repair COMPARISON: Chest radiograph 09/07/2017 FINDINGS: Elevated left hemidiaphragm. The lungs are clear. The cardiomediastinal silhouette is normal for projection. Aortic locations. No acute osseous abnormality. Cervical spinal hardware partially visualized. IMPRESSION: 1. No acute cardiopulmonary abnormality. SL: [id number] at 1050 Reported and signed by: Lucia Montano M.D. CC: Rosmery Braun; Beth Frankel MD; Tamika Hadley NP Technologist: RT Jarrod(Toney) Trnscrd Date/Time/By: 10/16/2020 (1050) : By: [email or web address] Orig Print D/T: S: 10/16/2020 (8369) PAGE 1 Signed [facility]WE[facility] W/AUTO [id number] 10:39:00 Test Item Value Reference Range Interpretation [...] REQUIRED (test code NO = MDIFF) PLT [id number] 10:39:00 Test Item Value Reference Range Interpretation Comments PLATELET ESTIMATE (test code 100-125 THOUSAND ADEQUATE = PLTEST) PLATELET MORPHOLOGY (test LARGE PLATELETS code = PLTMORPH) BASIC METABOLIC [id number] 10:19:00 Test Item Value Reference Range Interpretation [...] 8.4 mg/dL 8.0-10.5 N CA) CBC W/AUTO [id number] 09:57:00 Test Item Value Reference Range Interpretation [...] REQUIRED (test code NO = MDIFF) PLT [id number] 09:57:00 Test Item Value Reference Range Interpretation Comments PLATELET ESTIMATE (test code = THOUSAND ADEQUATE PLTEST) CBC W/AUTO [id number] 09:56:00 Test Item Value Reference Range Interpretation [...] REQUIRED (test code NO = MDIFF) PLT [id number] 09:56:00 Test Item Value Reference Range Interpretation Comments PLATELET ESTIMATE (test code = THOUSAND ADEQUATE PLTEST) CBC W/AUTO [id number] 09:49:00 Test Item Value Reference Range Interpretation [...] REQUIRED (test code = MDIFF) BASIC METABOLIC [id number] 12:52:00 Test Item Value Reference Range Interpretation [...] 8.3 mg/dl 8.0-10.5 N CA) CBC W/AUTO [id number] 12:42:00 Test Item Value Reference Range Interpretation [...] N NRBC#) - CT ABD PELVIS W/O [id number] 08:55:00 [facility] : 1970 Sex: M FAX: Rosmery Cohen MD [place]: St: REG FAX: Beth Correia MD [phone] Name: VLADIMIR MAGUIRE [facility] : 1970 Age/S: 50/M [address] [facility] Unit: [id number] Loc: [place], [place]: [place] [address] Acct: [id number] Dis Date: Status: REG CLI PHONE #: [phone] Exam Date: 09/29/2020 0834 FAX #: [phone] Reason: RIGHT GROIN PAIN EXAMS: CPT CODE: [id number] CT ABD PELVIS W/O CONT 82165 HISTORY: Right inguinal pain, right lower quadrant [...] no stones or hydronephrosis. Normal aortic diameter. Gallbl adder with normal position. Bowel loops are free [...] with air bubbles and a tract extending tothe posterior margin of the sacrum. The bony margins of the cortex appear to be intact. Spinal align ment well maintained. Mild haziness in the fat diffusely may support mild anasarca. PAGE 1 Signed Report (CONTINUED) FAX: Rosmery Cohen MD [place]: St: REG FAX: Beth Correia MD [phone] -- Name: VLADIMIR MAGUIRE [facility] : 1970 Age/S: 50/M [address] [facility] Unit: [id number] [place]: [place]: [place] [address] Acct: [id number] Dis Date: Status: REG CLI PHONE #:[phone] Exam Date: 09/29/2020 08 FAX #: [phone] Reason: RIGHT GROIN PAIN EXAMS: CPT CODE: [id number] CT ABD PELVIS W/O CONT 92709 <Continued> IMPRESSION: Limited Study. Normal appendixseen with [...] Rosmery Braun MD; Beth Frankel MD Technologist: LOREN WATKINS [facility] Dt/Tm: 09/29/2020 (0855) [email or web address] Orig Print D/T:S: 09/29/2020 (8358 PAGE 2 Signed ReportBASIC METABOLIC PANEL 2020-09-17 [...] CA) 8.1 mg/dl 8.0-10.5 N CBC W/AUTO [id number] 06:29:00 Test Item Value Reference Range Interpretation [...] 0.00-0.01 N NRBC#) COVID 19 Asymptomatic IH [id number] 05:55:00 Test Item Value Reference Range Interpretation Comments COVID 19 NEGATIVE NEGATIVE Negative result s should be Asymptomatic IH AG treated a s presumptive and (test code = ifinconsistent with COVNONPUIAG) clinical signs and symptoms, or ne cessaryfor patient managem ent, should be tested with an alternativemole cular assay. Negative results do not preclude AFWJ-XrJ-7sgxzx tion and should not be u sed as the sole basis forp atient management deci sions. Negative result s should beconsidered in the context of a pa tient's recent exposure s,history, presence of cli nical signs and symptoms consistentwith COVID-19. LACTIC [id number] 09:23:00 Test Item Value Reference Range Interpretation Comments LACTIC ACID (test code = LACT) 1.0 MMOL/L 0.4-2.0 N BASIC METABOLIC [id number] 09:11:00 Test Item Value Reference Range Interpretation [...] 8.2 mg/dl 8.0-10.5 N CA) CBC W/AUTO [id number] 09:06:00 Test Item Value Reference Range Interpretation [...] 0.00 X10 3uL 0.00-0.01 N NRBC#) SURGICAL [id number] 14:26:00 RUN DATE: 02/21/20 [facility] - LAB PAGE 1 RUN TIME: 1427 Specimen Inquiry RUN USER: INTERFACE -------- ----PATIENT: VLADIMIR MAGUIRE LOC: [place] U #: [id number] AGE/SX: 49/M ROOM: RE02/20/20[facility] DR: Saroj Coates MD : [birth year] BED: DIS: STATUS: [facility] TLOC: SPEC #: [id number] RECD: 02/20/20 STATUS: [place]IL [place]OWER #: [id number] BENEDICTO: 02/20/20 [facility] DR: Saroj Coates MD ENTERED: [...] approximately 1 x 1 x 1 cm. Credit Analysis Manager sections are submitted as follows: SECTION CODE: CONTINUED ONNEXT PAGE RUN DATE: 02/21/20 [facility] - LAB PAGE 2 RUN TIME: 1427 Specimen Inquiry RUN USER: INTERFACE SPEC #: [id number] PATIENT: VLADIMIR MAGUIRE #[id number] (Continued) GROSS DESCRIPTION (Continued) A1-A2: First described small area A3-A5: Larger second described nodule RAB/th MICROSCOPIC DESCRIPTION Microscopic performed. Signed SIGNATURE ON FILE Rosemarie Ryder MD 02/21/20 1426 END OF REPORT [id number] 13:17:00 Test Item Value Reference Range Interpretation Comments GLUBED (test code = GLUBED) 101 MG/DL 70-105 N BASIC METABOLIC [id number] 06:39:00 Test Item Value Reference Range Interpretation [...] 8.8 mg/dL 8.8-10.2 N CA) CBC W/AUTO [id number] 06:35:00 Test Item Value Reference Range Interpretation [...] BA#) 0.05 x10 3/uL 0.0-0.20 N SPECIAL [id number] 17:02:00 Test Item Value Reference Range Interpretation Comments Hgb A1C (test code = Hgb A1C) 5.8 [facility] [id number] 17:02:00 Test Item Value Reference Range Interpretation Comments Hgb A1C (test code = Hgb A1C) 5.8 [facility] HospitalIntercytex Group [id number] 16:58:00 Test Item Value Reference Range Interpretation Comments Antibody Scrn (test Negative (07/12/18 11:58 code = Antibody Scrn) AM) [facility] HospitalSmartLink Radio Networks [facility] [id number] 16:58:00 Test Item Value Reference Range Interpretation Comments ABO/Rh (test code = ABO/Rh) O POS [facility] HospitalWwiphkuNAGNJIQXNSSG5766-92-36 16:58:00 Test Item Value Reference Range Interpretation Comments AGAP (test code = AGAP) 10.2 10.0-20.0 [facility] HospitalTzutmvrRKENMSJESJDC9053-22-77 16:58:00 Test Item Value Reference Range Interpretation Comments eGFR (test code = eGFR) 19 [facility] HospitalLictpaaAMIJZHCFYCHX6946-16-42 16:58:00 Test Item Value Reference Range Interpretation Comments Calcium Lvl (test code = Calcium Lvl) 8.0 8.5-10.5 [facility] HospitalTzpmjlsGFSDSJKVELFE7431-89-71 16:58:00 Test Item Value Reference Range Interpretation Comments CO2 (test code = CO2) 26 24-32 [facility] HospitalLemyxdaNGJMJUTQLNDM5927-13-00 16:58:00 Test Item Value Reference Range Interpretation Comments Creatinine Lvl (test code = Creatinine 3.53 0.50-1.40 Lvl) [facility] HospitalGfsoyrwLJBIXEEAAEET1479-12-93 16:58:00 Test Item Value Reference Range Interpretation Comments BUN (test code = BUN) 33 7-22 [facility] HospitalAcbkuuqKBZPPPDOZOMS4833-99-41 16:58:00 Test Item Value Reference Range Interpretation Comments Glucose Lvl (test code = Glucose Lvl) 86 70-99 [facility] HospitalYrebpkwFXSUHPZKANGF9356-23-62 16:58:00 Test Item Value Reference Range Interpretation Comments Chloride Lvl (test code = Chloride Lvl) 108 95-109 [facility] HospitalNbulaurBOIAKKEGILYB7717-83-61 16:58:00 Test Item Value Reference Range Interpretation Comments Sodium Lvl (test code = Sodium Lvl) 139 135-145 [facility] HospitalMqdaxkhISGNWQGIVGAS8870-27-29 16:58:00 Test Item Value Reference Range Interpretation Comments Potassium Lvl (test code = Potassium 5.2 3.5-5.1 Lvl) [facility] CenterWkedexbFSMCFIZHDZ0574-56-80 16:58:00 Test Item Value Reference Range Interpretation Comments PTT (test code = PTT) 34.8 s 22.9-35.8 [facility] CenterVlgywzmNJBKUCXRML2253-67-22 16:58:00 Test Item Value Reference Range Interpretation Comments INR (test code = INR) 0.94 1 0.85-1.17 [facility] CenterTixvxfaLRSXPBIKEF4171-73-26 16:58:00 Test Item Value Reference Range Interpretation Comments PT (test code = PT) 12.6 s 12.0-14.7 [facility] CenterYbfaeqcKSTCCIVFWL9816-27-82 16:58:00 Test Item Value Reference Range Interpretation Comments Platelet (test code = Platelet) 259 133-450 [facility] CenterQfqzpqwLROCVSEEUV6696-95-13 16:58:00 Test Item Value Reference Range Interpretation Comments MPV (test code = MPV) 7.6 7.4-10.4 [facility] CenterJsvgqhhEGSUZBVJFB4633-25-74 16:58:00 Test Item Value Reference Range Interpretation Comments Hct (test code = Hct) 37.0 42.0-54.0 [facility] CenterEpeahbeVREENUKVHL4558-26-58 16:58:00 Test Item Value Reference Range Interpretation Comments MCH (test code = MCH) 27.0 pg 27.0-31.0 [facility] CenterWhidgvuMLVJWYZDQU0571-35-64 16:58:00 Test Item Value Reference Range Interpretation Comments MCHC (test code = MCHC) 32.7 32.0-36.0 [facility] CenterGzuheqqOZZJPFCSGF7331-80-51 16:58:00 Test Item Value Reference Range Interpretation Comments RDW (test code = RDW) 15.7 11.5-14.5 [facility] CenterOcsqzqeXAVFCEUHYS0376-59-96 16:58:00 Test Item Value Reference Range Interpretation Comments MCV (test code = MCV) 82.5 80.0-94.0 [facility] CenterMfyisonBXCMYSRJAJ9582-34-78 16:58:00 Test Item Value Reference Range Interpretation Comments Hgb (test code = Hgb) 12.1 14.0-18.0 [facility] CenterMxhufixWPQCYKXSCQ7319-00-57 16:58:00 Test Item Value Reference Range Interpretation Comments RBC (test code = RBC) 4.49 4.70-6.10 [facility] CenterMzgsiqvJPVMQZRANT0568-98-66 16:58:00 Test Item Value Reference Range Interpretation Comments WBC (test code = WBC) 10.7 3.7-10.4 [facility] CenterYknuwerITKLRZOUGR0665-65-03 16:58:00 Test Item Value Reference Range Interpretation Comments Basophils (test code = 0.6 See_Comment [Aut omated message] The Basophils) system which ge nerated this result tra nsmitted reference range : <=1.0. The reference r gutierrez was not used to int erpret this result as normal/abnormal . [facility] CenterYfxnrerLJSCXBHNII5669-64-80 16:58:00 Test Item Value Reference Range Interpretation Comments Eosinophils (test code = 4.6 See_Comment [A utomated message] The Eosinophils) system which ge nerated this result tra nsmitted reference range : <=4.0. The reference r gutierrez was not used to int erpret this result as normal/abnormal . [facility] CenterDoajrmmAQFIRWOHSS3637-70-48 16:58:00 Test Item Value Reference Range Interpretation Comments Neutrophils # (test code = Neutrophils 7.0 1.5-8.1 #) [facility] CenterNfnzxhzSWGGFFVRPI9905-50-06 16:58:00 Test Item Value Reference Range Interpretation Comments Lymphocytes # (test code = Lymphocytes 2.4 1.0-5.5 #) [facility] CenterXuqzsawKAVJZMMCTM6216-71-37 16:58:00 Test Item Value Reference Range Interpretation Comments Monocytes # (test code 0.8 See_Comment [Aut omated message] The = Monocytes #) system which generated this result tra nsmitted reference range : <=0.8. The reference r gutierrez was not used to int erpret this result as normal/abnormal . [facility] CenterYwxxkzxQQQDDHQFGD9836-23-03 16:58:00 Test Item Value Reference Range Interpretation Comments Lymphocytes (test code = Lymphocytes) 22.5 20.0-40.0 [facility] CenterStysomxZWNNPDAEXS5606-72-60 16:58:00 Test Item Value Reference Range Interpretation Comments Monocytes (test code = Monocytes) 7.2 2.0-12.0 [facility] CenterIkxpnmqODZMYDOEKU7672-16-51 16:58:00 Test Item Value Reference Range Interpretation Comments Eosinophils # (test code 0.5 See_Comment [A utomated message] The = Eosinophils #) system whic h generated this result tra nsmitted reference range : <=0.5. The reference r gutierrez was not used to int erpret this result as normal/abnormal . [facility] CenterOafzahyBFCPPBDCJT3363-18-87 16:58:00 Test Item Value Reference Range Interpretation Comments Basophils # (test code 0.1 See_Comment [Aut omated message] The = Basophils #) system which generated this result tra nsmitted reference range : <=0.2. The reference r gutierrez was not used to int erpret this result as normal/abnormal . [facility] CenterSrmbgqsEDKPOZHXSG6718-43-39 16:58:00 Test Item Value Reference Range Interpretation Comments Segs (test code = Segs) 65.1 45.0-75.0 [facility] UGSZQIN4704-92-24 16:58:00 Test Item Value Reference Range Interpretation Comments Antibody Scrn (test Negative (07/12/18 11:58 code = Antibody Scrn) AM) [facility] [id number] 16:58:00 Test Item Value Reference Range Interpretation Comments ABO/Rh (test code = ABO/Rh) O POS [facility] HospitalLkbzxmxSEEMSXARWFMX6928-68-78 16:58:00 Test Item Value Reference Range Interpretation Comments AGAP (test code = AGAP) 10.2 10.0-20.0 [facility] HospitalPkpvexcRQTSKDPJPHRR3300-30-32 16:58:00 Test Item Value Reference Range Interpretation Comments eGFR (test code = eGFR) 19 [facility] HospitalDhteqkqMYYMYPKYVIZN3780-31-00 16:58:00 Test Item Value Reference Range Interpretation Comments Calcium Lvl (test code = Calcium Lvl) 8.0 8.5-10.5 [facility] HospitalEmlgzwoIZBKQFZNARHB7262-13-82 16:58:00 Test Item Value Reference Range Interpretation Comments CO2 (test code = CO2) 26 24-32 [facility] HospitalMjnuolqBTJZEBJBVPIA4665-43-23 16:58:00 Test Item Value Reference Range Interpretation Comments Creatinine Lvl (test code = Creatinine 3.53 0.50-1.40 Lvl) [facility] HospitalHttoccqXSOERSZYZTCA1648-03-59 16:58:00 Test Item Value Reference Range Interpretation Comments BUN (test code = BUN) 33 7-22 [facility] HospitalSzfaaypKTQAPTTUHDVR5204-59-33 16:58:00 Test Item Value Reference Range Interpretation Comments Glucose Lvl (test code = Glucose Lvl) 86 70-99 [facility] HospitalPlmflyhCGQEFQZPMPTK6745-60-98 16:58:00 Test Item Value Reference Range Interpretation Comments Chloride Lvl (test code = Chloride Lvl) 108 95-109 [facility] HospitalKsitwofYITTYUKCLYLF3529-09-49 16:58:00 Test Item Value Reference Range Interpretation Comments Sodium Lvl (test code = Sodium Lvl) 139 135-145 [facility] HospitalOjbmkhfCSEKXUOVXPRK4924-56-91 16:58:00 Test Item Value Reference Range Interpretation Comments Potassium Lvl (test code = Potassium 5.2 3.5-5.1 Lvl) [facility] CenterOkdpygtCJVGWPFIIZ6477-08-31 16:58:00 Test Item Value Reference Range Interpretation Comments PTT (test code = PTT) 34.8 s 22.9-35.8 [facility] CenterIeyonhzTZSBCWACYM9078-06-42 16:58:00 Test Item Value Reference Range Interpretation Comments INR (test code = INR) 0.94 1 0.85-1.17 [facility] CenterZareedaQUGMLQJLSJ7255-92-61 16:58:00 Test Item Value Reference Range Interpretation Comments PT (test code = PT) 12.6 s 12.0-14.7 [facility] [id number] 16:58:00 Test Item Value Reference Range Interpretation Comments Platelet (test code = Platelet) 259 133-450 [facility] [id number] 16:58:00 Test Item Value Reference Range Interpretation Comments MPV (test code = MPV) 7.6 7.4-10.4 [facility] [id number] 16:58:00 Test Item Value Reference Range Interpretation Comments Hct (test code = Hct) 37.0 42.0-54.0 [facility] CenterNadwdacCQSGUHMPLH2253-30-15 16:58:00 Test Item Value Reference Range Interpretation Comments MCH (test code = MCH) 27.0 pg 27.0-31.0 [facility] C[id number] 16:58:00 Test Item Value Reference Range Interpretation Comments MCHC (test code = MCHC) 32.7 32.0-36.0 [facility] CenterWkafwloZWSMZQGVDW2070-11-61 16:58:00 Test Item Value Reference Range Interpretation Comments RDW (test code = RDW) 15.7 11.5-14.5 [facility] CenterXmwxnlwWRSDKZLDHW5722-12-06 16:58:00 Test Item Value Reference Range Interpretation Comments MCV (test code = MCV) 82.5 80.0-94.0 [facility] [id number] 16:58:00 Test Item Value Reference Range Interpretation Comments Hgb (test code = Hgb) 12.1 14.0-18.0 [facility] [id number] 16:58:00 Test Item Value Reference Range Interpretation Comments RBC (test code = RBC) 4.49 4.70-6.10 [facility] CenterFkwuntaLJYDHMFVVQ3044-84-04 16:58:00 Test Item Value Reference Range Interpretation Comments WBC (test code = WBC) 10.7 3.7-10.4 [facility] CenterM[id number] 16:58:00 Test Item Value Reference Range Interpretation Comments Basophils (test code = 0.6 See_Comment [Aut omated message] The Basophils) system which ge nerated this result tra nsmitted reference range : <=1.0. The reference r gutierrez was not used to int erpret this result as normal/abnormal . [facility] [id number] 16:58:00 Test Item Value Reference Range Interpretation Comments Eosinophils (test code = 4.6 See_Comment [A utomated message] The Eosinophils) system which ge nerated this result tra nsmitted reference range : <=4.0. The reference r gutierrez was not used to int erpret this result as normal/abnormal . [facility] Cent[id number] 16:58:00 Test Item Value Reference Range Interpretation Comments Neutrophils # (test code = Neutrophils 7.0 1.5-8.1 #) [facility] [id number] 16:58:00 Test Item Value Reference Range Interpretation Comments Lymphocytes # (test code = Lymphocytes 2.4 1.0-5.5 #) [facility] [id number] 16:58:00 Test Item Value Reference Range Interpretation Comments Monocytes # (test code 0.8 See_Comment [Aut omated message] The = Monocytes #) system which generated this result tra nsmitted reference range : <=0.8. The reference r gutierrez was not used to int erpret this result as normal/abnormal . [facility] [id number] 16:58:00 Test Item Value Reference Range Interpretation Comments Lymphocytes (test code = Lymphocytes) 22.5 20.0-40.0 [facility] [id number] 16:58:00 Test Item Value Reference Range Interpretation Comments Monocytes (test code = Monocytes) 7.2 2.0-12.0 [facility] [id number] 16:58:00 Test Item Value Reference Range Interpretation Comments Eosinophils # (test code 0.5 See_Comment [A utomated message] The = Eosinophils #) system whic h generated this result tra nsmitted reference range : <=0.5. The reference r gutierrez was not used to int erpret this result as normal/abnormal . [facility] [id number] 16:58:00 Test Item Value Reference Range Interpretation Comments Basophils # (test code 0.1 See_Comment [Aut omated message] The = Basophils #) system which generated this result tra nsmitted reference range : <=0.2. The reference r gutierrez was not used to int erpret this result as normal/abnormal . [facility] CenterGcglihvANGZIMULBV8109-20-24 16:58:00 Test Item Value Reference Range Interpretation Comments Segs (test code = Segs) 65.1 45.0-75.0 [facility]
--- NOTE | 2022-08-30 14:29 | RAD REPORT ---
EXAM DESCRIPTION: RAD - Chest Single View - 08/30/2022 2:24 pm CLINICAL HISTORY: CHEST PAIN COMPARISON: Chest Single View dated 05/11/2022; Chest Single View dated 05/06/2022; Chest Single View da darrion 04/13/2022; Chest Single View dated 04/21/2020; Abdomen Pelvis Wo Contrast dated 06/22/2022 FINDINGS: Lines: None. Lungs: No evidence of edema or pneumonia. Similar eventration of the left hemidiaphragm. Pleural: No significant pleural effusions or pneumothorax. Cardiac: The heart size is within normal limits. Mediastinum: Within normal limits. Bones: No acute fractures. ACDF in the cervical spine. Other: None IMPRESSION: No acute cardiopulmonary disease.
[2022-08-30] MEDS ORDERED: ONDANSETRON 4 MG/2 ML VIAL ONE (14:37)
[2022-08-30] MEDS ORDERED: MORPHINE 4 MG/ML SYR ONE (14:37)
[2022-08-30 14:51] LABS: Absolute Lymphocytes (CBC) 1.3 K/uL (0.7-4.9); Hematocrit 31.1 % (39.6-49.0); Lymphocytes % 21.4 % (15.3-44.8); MCV 89.1 fL (80-100); MPV 7.3 fL (7.6-11.3); RBC Red Blood Cell Count 3.49 M/uL (4.33-5.43)
[2022-08-30 14:52] LABS: Protime INR 0.97
[2022-08-30 15:14] LABS: Albumin 3.5 g/dL (3.4-5.0); Bilirubin Direct 0.1 mg/dL (0-0.2); Bilirubin Total 0.4 mg/dL (0.2-1.0); Potassium 4.1 mmol/L (3.5-5.1); Protein, Total 6.8 g/dL (6.4-8.2); Troponin High Sensitivity 31.4 pg/mL (<58.9)
--- NOTE | 2022-08-30 15:46 | EDPHYS ---
Physician Documentation [facility] Name: Vladimir Maguire Age: 52 yrs Sex: Male : 1970 Arrival Date: 08/30/2022 Time: 14:01 Bed 5 Private MD: ED Physician Quan Berg HPI: 08/30 15:33 This 52 yrs old Male presents to ER via EMS with complaints of Chest Pain > 30 sp3 y/o, Shortness Of Breath. 15:33 52-year-old male with history of end-stage renal disease on dialysis, hypertension, sp3 diabetes presents to the ED by EMS with chest pain that started during the last 20 minutes of his current dialysis session today. He normally goes 3.5 hours and at 2-1/2-hour anai he started his pain with subsequent cessation of the dialysis session at the 3-hour anai. States the pain started substernally and came and went. Somewhat resolved with nitroglycerin and aspirin given by EMS. Denies radiation of pain to his back, jaw, left arm, right arm inferiorly into the abdomen. Pain is predominantly substernal. EMS does report brief episode of atrial fibrillation with RVR which is demonstrated on the twelve-lead EKG. Before getting to the ED, patient self converted back to normal sinus rhythm. Currently pain is milder but still present. Shortness of breath was only there on laying flat. Systems, patient denies headache, fever, URI symptoms, back pain, abdominal pain, nausea, vomiting, diarrhea, rash, numbness or tingling, focal neurodeficit, or any other findings.. Historical: - Allergies: 14:23 Ativan; kc6 - PMHx: 14:23 Diabetes - NIDDM; ESRD with dialysis MWF; Hypertension; neuropathy; Renal Disease; kc6 Rheumatoid Arthritis; - PSHx: 14:23 RIGHT BKA; dialysis site to left arm; kc6 - Immunization history:: Client reports having NOT received the Covid vaccine. Flu vaccine is not up to date. - Social history:: Smoking status: Patient denies any tobacco usage or history of. ROS: 15:37 Constitutional: Negative for fever, chills, and weight loss, Eyes: Negative for injury, sp3 pain, redness, and discharge, ENT: Negative for injury, pain, and discharge, Neck: Negative for injury, pain, and swelling, Respiratory: Negative for shortness of breath, cough, wheezing, and pleuritic chest pain, Abdomen/GI: Negative for abdominal pain, nausea, vomiting, diarrhea, and constipation, Back: Negative for injury and pain, MS/Extremity: Negative for injury and deformity, Skin: Negative for injury, rash, and discoloration, Neuro: Negative for headache, weakness, numbness, tingling, and seizure, Psych: Negative for depression, anxiety, suicide ideation, homicidal ideation, and hallucinations, Allergy/Immunology: Negative for hives, rash, and allergies, Endocrine: Negative for neck swelling, polydipsia, polyuria, polyphagia, and marked weight changes, Hematologic/Lymphatic: Negative for swollen nodes, abnormal bleeding, and unusual bruising. 15:37 All other systems are negative. Exam: 15:39 Constitutional: This is a well developed, well nourished patient who is awake, alert, sp3 and in no acute distress. Head/Face: Normocephalic, atraumatic. Eyes: Pupils equal round and reactive to light, extra-ocular motions intact. Lids and lashes normal. Conjunctiva and sclera are non-icteric and not injected. Cornea within normal limits. Periorbital areas with no swelling, redness, or edema. ENT: Nares patent. No nasal discharge, no septal abnormalities noted. External auditory canals are clear. Oropharynx with no redness, swelling, or masses, exudates, or evidence of obstruction, uvula midline. Mucous membranes moist. Neck: Trachea midline, no thyromegaly or masses palpated, and no cervical lymphadenopathy. Supple, full range of motion without nuchal rigidity, or vertebral point tenderness. No Meningismus. Chest/axilla: Normal chest wall appearance and motion. Nontender with no deformity. No lesions are appreciated. Cardiovascular: Regular rate and rhythm with a normal S1 and S2. No gallops, murmurs, or rubs. Normal PMI, no JVD. No pulse deficits. Respiratory: Lungs have equal breath sounds bilaterally, clear to auscultation and percussion. No rales, rhonchi or wheezes noted. No increased work of breathing, no retractions or nasal flaring. Abdomen/GI: Soft, non-tender, with normal bowel sounds. No distension or tympany. No guarding or rebound. No evidence of tenderness throughout. Back: No spinal tenderness. No costovertebral tenderness. Full range of motion. Skin: Warm, dry with normal turgor. Normal color with no rashes, no lesions, and no evidence of cellulitis. MS/ Extremity: Pulses equal, no cyanosis. Neurovascular intact. Full, normal range of motion. Neuro: Awake and alert, GCS 15, oriented to person, place, time, and situation. Cranial nerves II-XII grossly intact. Motor strength 5/5 in all extremities. Sensory grossly intact. Cerebellar exam normal. Normal gait. Psych: Awake, alert, with orientation to person, place and time. Behavior, mood, and affect are within normal limits. 15:40 ECG was reviewed by the Attending Physician. EKG demonstrates sinus tachycardia at 105 sp3 bpm with normal intervals, normal QRS, normal axis, nonspecific diffuse ST/T changes with significant ectopy every 4-10 beats. Irrigation data from [place] shows normal functioning device. However her device has no sensing ability and is not a defibrillator. Vital Signs: 14:16 BP 124 / 90; Pulse 108; Resp 15 S; Pulse Ox 100% on 2 lpm NC; Weight 99.79 kg (R); kc6 Height 5 ft. 10 in. (177.80 cm) (R); Pain 7/10; 14:36 BP 149 / 78; Pulse 100; Resp 12; Pulse Ox 100% on R/A; vg1 15:05 BP 133 / 83; Pulse 98; Resp 13; Pulse Ox 100% on 2 lpm NC; vg1 16:00 BP 158 / 90; Pulse 85; Resp 12; Pulse Ox 100% on R/A; vg1 20:53 BP 171 / 88; Pulse 84; Resp 15; Pulse Ox 100% on R/A; ll3 14:16 Body Mass Index 31.57 (99.79 kg, 177.80 cm) kc6 MDM: 14:04 Patient medically screened. sp3 15:41 Data reviewed: vital signs, nurses notes, EMS record, EKG. ED course: 52-year-old male sp3 with complex medical history now with chest pain and EKG with ectopy and prior atrial fibrillation in the EMS unit in route to the hospital. Will admit patient to internal medicine for cardiology consult and general rule out for acute coronary syndrome. I do not believe patient has pulmonary embolism, thoracic pathology including aortic dissection and aneurysm, gastritis, pneumonia or pulmonary pathology at this time. . 08/30 14:04 Order name: Basic Metabolic Panel; Complete Time: 15:30 08/30 14:04 Order name: CBC with Diff; Complete Time: 15:30 08/30 14:04 Order name: LFT's; Complete Time: 15:30 08/30 14:04 Order name: NT PRO-BNP; Complete Time: 15:30 08/30 14:04 Order name: PT-INR; Complete Time: 15:30 08/30 14:04 Order name: Troponin HS; Complete Time: 15:30 3 08/30 14:04 Order name: XRAY Chest (1 view); Complete Time: 15:30 08/30 16:49 Order name: SARS-COV-2 Antigen Rapid bd 08/30 17:42 Order name: Phosphorus EDMS 08/30 17:42 Order name: T4 Free EDIL 08/30 17:42 Order name: Magnesium EDMS 08/30 17:42 Order name: Thyroid Stimulating Hormone EDMS 08/30 17:47 Order name: SARS-COV-2 Antigen Rapid EDMS 08/30 21:05 Order name: Troponin High Sensitivity EDMS 08/30 14:04 Order name: EKG; Complete Time: 14:05 08/30 14:04 Order name: Cardiac monitoring; Complete Time: 14:30 08/30 14:04 Order name: EKG - Nurse/Tech; Complete Time: 14:30 08/30 14:04 Order name: IV Saline Lock; Complete Time: 14:30 08/30 14:04 Order name: Labs collected and sent; Complete Time: 14:30 08/30 14:04 Order name: O2 Per Protocol; Complete Time: 14:16 08/30 14:04 Order name: O2 Sat Monitoring; Complete Time: 14:16 08/30 16:38 Order name: Knee Left 3 View XRAY 3 08/30 17:22 Order name: RAD EDMS Administered Medications: 14:48 Drug: Zofran (Ondansetron) 4 mg Route: IVP; Site: right antecubital; kc6 14:49 Drug: morphine 4 mg Route: IVP; Infused Over: 4 mins; Site: right antecubital; kc6 18:37 Drug: morphine 2 mg Route: IVP; Infused Over: 4 mins; Site: right antecubital; vg1 Disposition Summary: 08/30/22 15:46 Hospitalization Ordered Hospitalization Status: Observation sp3 Provider: Nathanael Jewell sp3 Location: Telemetry/MedSurg (observation) sp3 Condition: Stable sp3 Problem: an acute exacerbation sp3 Symptoms: are unchanged sp3 Bed/Room Type: Standard sp3 Room Assignment: 422(08/30/22 20:15) mw Diagnosis - Chest pain, Paroxysmal atrial fibrillation. sp3 Forms: - Medication Reconciliation Form sp3 - SBAR form sp3 Signatures: Dispatcher [employer] EDThalia Murry RN RN Margret Hopper RN RN ss Garcia, Victoria, RN RN vg1 Quan Berg MD MD sp3 Maude Calix RN RN kc6 Corrections: (The following items were deleted from the chart) 20:15 15:46 sp3 mw
--- NOTE | 2022-08-30 15:46 | ER ---
Nurse's Notes [facility] Name: Vladimir Maguire Age: 52 yrs Sex: Male : 1970 Arrival Date: 08/30/2022 Time: 14:01 Bed 5 Private MD: Diagnosis: Chest pain, Paroxysmal atrial fibrillation. Presentation: 08/30 14:16 Chief complaint: EMS states: client started having cramping chest pain 8/10 that does kc6 not radiate, while at dialysis today. stated patient complains fo some nausea and shortness of breath. 324mg of Aspirin given and route and two of nitro. stated client was in afib RVR and the self converted to sinus tach. client stated he had a pacemaker implanted three months ago. client also states he fell out of his brothers truck yesterday and onto his left knee. Coronavirus screen: Vaccine status: Patient reports being unvaccinated. At this time, the client does not indicate any symptoms associated with coronavirus-19. Ebola Screen: No symptoms or risks identified at this time. Initial Sepsis Screen: Does the patient meet any 2 criteria? No. Patient's initial sepsis screen is negative. Does the patient have a suspected source of infection? No. Patient's initial sepsis screen is negative. Risk Assessment: Do you want to hurt yourself or someone else? Patient reports no desire to harm self or others. Onset of symptoms was August 30, 2022. 14:16 Method Of Arrival: EMS: [facility] kc6 14:16 Acuity: GINA 3 kc6 Triage Assessment: 14:23 General: Appears in no apparent distress. uncomfortable, Behavior is calm, cooperative, kc6 appropriate for age. Pain: Complains of pain in left clavicle, anterior aspect of left upper chest and left breast Pain does not radiate. Pain currently is 7 out of 10 on a pain scale. at worst was 8 out of 10 on a pain scale. Quality of pain is described as crampy, Pain began suddenly, Is continuous, Alleviated by nothing. Aggravated by increased activity, Also complains of nausea, shortness of breath. EENT: No signs and/or symptoms were reported regarding the EENT system. Neuro: Mendoza Agitation-Sedation Scale (RASS): 0 - Alert and Calm Level of Consciousness is awake, alert, obeys commands, Oriented to person, place, time, situation, Appropriate for age. Cardiovascular: Heart tones S1 S2 present Capillary refill < 3 seconds Rhythm is sinus tachycardia Dialysis shunt: with palpable thrill, with auscultated bruit, with no erythema, with no edema, no bleeding noted. Respiratory: Airway is patent Respiratory effort is even, unlabored, Respiratory pattern is regular, symmetrical, Breath sounds are clear bilaterally. GI: No signs and/or symptoms were reported involving the gastrointestinal system. : No signs and/or symptoms were reported regarding the genitourinary system. Derm: No signs and/or symptoms reported regarding the dermatologic system. Skin is intact, Skin is pink, warm \T\ dry. Musculoskeletal: Amputation of Other: Right BKA Circulation, motion, and sensation intact. Capillary refill < 3 seconds, Range of motion: intact in all extremities, Reports pain in left knee since yesterday 08/29/22. Pain is 7 out of 10 on a pain scale. Historical: - Allergies: 14:23 Ativan; kc6 - PMHx: 14:23 Diabetes - NIDDM; ESRD with dialysis MWF; Hypertension; neuropathy; Renal Disease; kc6 Rheumatoid Arthritis; - PSHx: 14:23 RIGHT BKA; dialysis site to left arm; kc6 - Immunization history:: Client reports having NOT received the Covid vaccine. Flu vaccine is not up to date. - Social history:: Smoking status: Patient denies any tobacco usage or history of. Screenin:29 Abuse screen: Denies threats or abuse. Denies injuries from another. Nutritional kc6 screening: No deficits noted. Tuberculosis screening: No symptoms or risk factors identified. Fall Risk No fall in past 12 months (0 pts). No secondary diagnosis (0 pts). IV access (20 points). Ambulatory Aid- None/Bed Rest/Nurse Assist (0 pts). Gait- Normal/Bed Rest/Wheelchair (0 pts) Mental Status- Oriented to own ability (0 pts). Total Darden Fall Scale indicates No Risk (0-24 pts). Assessment: 14:29 Reassessment: see triage assessment. kc6 14:47 General: Appears in no apparent distress. uncomfortable, Behavior is cooperative, vg1 anxious. Pain: Complains of pain in anterior aspect of right upper chest, anterior aspect of left upper chest and mid-sternal area Pain does not radiate. Pain currently is 8 out of 10 on a pain scale. Quality of pain is described as heavy, pressure, Pain began 1 hour ago. Neuro: Level of Consciousness is awake, alert, obeys commands, Oriented to person, place, time, situation. Cardiovascular: Patient's skin is warm and dry. Rhythm is sinus tachycardia with unifocal PVCs Dialysis shunt: in the left upper arm, with palpable thrill, with auscultated bruit, with no erythema, with no edema, no bleeding noted. Respiratory: Airway is patent Respiratory effort is even, unlabored, Breath sounds are clear bilaterally. GI: Abdomen is round non-distended, obese. : No signs and/or symptoms were reported regarding the genitourinary system. EENT: No signs and/or symptoms were reported regarding the EENT system. Derm: Skin temperature is warm. Musculoskeletal: Circulation, motion, and sensation intact. 15:45 Reassessment: Patient appears in no apparent distress at this time. No changes from vg1 previously documented assessment. Patient and/or family updated on plan of care and expected duration. Pain level reassessed. Patient is alert, oriented x 3, equal unlabored respirations, skin warm/dry/pink. Vital Signs: 14:16 BP 124 / 90; Pulse 108; Resp 15 S; Pulse Ox 100% on 2 lpm NC; Weight 99.79 kg (R); kc6 Height 5 ft. 10 in. (177.80 cm) (R); Pain 7/10; 14:36 BP 149 / 78; Pulse 100; Resp 12; Pulse Ox 100% on R/A; vg1 15:05 BP 133 / 83; Pulse 98; Resp 13; Pulse Ox 100% on 2 lpm NC; vg1 16:00 BP 158 / 90; Pulse 85; Resp 12; Pulse Ox 100% on R/A; vg1 20:53 BP 171 / 88; Pulse 84; Resp 15; Pulse Ox 100% on R/A; ll3 14:16 Body Mass Index 31.57 (99.79 kg, 177.80 cm) kc6 ED Course: 14:01 Patient arrived in ED. bd 14:03 Quan Berg MD is Attending Physician. sp3 14:16 Ayanna Buckley, RN is Primary Nurse. vg1 14:22 Triage completed. kc6 14:25 XRAY Chest (1 view) In Process Unspecified. EDMS 14:29 Arm band placed on. kc6 14:47 Patient has correct armband on for positive identification. Placed in gown. Bed in low vg1 position. Call light in reach. Side rails up X2. Client placed on continuous cardiac and pulse oximetry monitoring. NIBP monitoring applied. 15:44 Nathanael Jewell MD is Hospitalizing Provider. sp3 17:16 COVID swab sent to lab. tm3 21:23 No provider procedures requiring assistance completed. Patient admitted, IV remains in ll3 place. Administered Medications: 14:48 Drug: Zofran (Ondansetron) 4 mg Route: IVP; Site: right antecubital; kc6 14:49 Drug: morphine 4 mg Route: IVP; Infused Over: 4 mins; Site: right antecubital; kc6 18:37 Drug: morphine 2 mg Route: IVP; Infused Over: 4 mins; Site: right antecubital; vg1 Medication: 14:47 VIS not applicable for this client. vg1 Outcome: 15:46 Decision to Hospitalize by Provider. sp3 21:23 Admitted to Tele accompanied by tech, via wheelchair, room 422, with chart, Report ll3 called to NINA Feliz 21:23 Condition: stable 21:23 Instructed on the need for admit, Demonstrated understanding of instructions. 21:33 Patient left the ED. ll3 Signatures: Dispatcher [employer] EDMS Anny Castro Toni tm3 Ayanna Buckley RN RN vg1 Quan Berg MD MD sp3 Kalen Bryant RN RN ll3 Maude Calix RN RN kc6
[2022-08-30] MEDS ORDERED: ACETAMINOPHEN 325 MG TABLET PO PRN (16:43)
[2022-08-30] MEDS ORDERED: HYDROCODONE/APAP 5/325 MG TAB PO PRN (16:44)
[2022-08-30] MEDS ORDERED: ACETAMIN/CAFFEINE/BUTALB TAB PO PRN (16:51)
[2022-08-30] MEDS ORDERED: AMITRIPTYLINE 50 MG TAB PO PRN (16:51)
[2022-08-30] MEDS ORDERED: HOME MED 1 EA UNK (Hydralazine Hcl [Hydralazine Hcl] 50 MG Tablet) PO PRN (16:51)
[2022-08-30] MEDS ORDERED: ONDANSETRON 4 MG/2 ML VIAL IV PRN (16:57)
--- NOTE | 2022-08-30 16:59 | P.HP ---
Certification for Inpatient Patient admitted to: Observation With expected LOS: <2 Midnights Patient will require the following post-hospital care: None Practitioner: I am a practitioner with admitting privileges, knowledge of patient current condition, hospital course, and medical plan of care. Services: Services provided to patient in accordance with Admission requirements found in Title 42 Section 412.3 of the Code of Federal Regulations <JosephRani aviles - Last Filed: 08/31/22 06:11> Patient History Date of Service: 08/31/22 Reason for admission: Chest pain History of Present Illness: Patient is a 52-year-old male with a past medical history significant for ESRD, DM 2, Syncope, hypertension, cannabis use who presents with complaint of chest pain onset while he was at dialysis. Patient indicated that chest pain is located in the left chest wall. Patient rated pain as 8/10 in severity and described pain as sharp in quality. Patient reported that he had a fall recently and fell on his left knee. Patient currently experiencing pain in left knee. Patient reported associated signs and symptoms of shortness of breath and dizziness. Patient denies any other signs or symptoms. Symptoms are aggravated or relieved by nothing. Patient decided to present to the hospital for medical evaluation. - Past Medical/Surgical History Diabetic: Yes -: HTN -: rheumatoid arthritis -: ESRD on HD -: kidney cancer -: Type 2 diabetes -: total knee replacement -: L little toe amputation -: BKA R -: upper neck fusion with broken screws -: wrist surgery -: R nephrectomy -: left hand surgery Psychosocial/ Personal History: Patient is . He has a brother and a son. - Family History Mother -: Other (see notes) Notes: no known medical history - Social History Smoking Status: Unknown if ever smoked Alcohol use: No CD- Drugs: Yes Caffeine use: No Place of Residence: Home <Rani Urbano - Last Filed: 08/31/22 06:11> Date of Service: 08/31/22 <Nathanael Jewell - Last Filed: 08/31/22 18:54> Allergies lorazepam [From Ativan] Allergy (Verified 04/14/22 00:33) Hives/Rash Home Medications: RX: Amitriptyline HCl 50 mg PO BEDTIME PRN PRN 04/14/22 RX: Apixaban [Eliquis *] 2.5 mg PO BID 04/14/22 RX: Difluprednate [Durezol] 1 drop EACH EYE BID 04/14/22 RX: Doxazosin [Cardura*] 4 mg PO BID 04/14/22 RX: Hydralazine HCl 50 mg PO TID PRN 04/14/22 RX: Lisinopril [Zestril] 20 mg PO BID 04/14/22 RX: Omeprazole [Prilosec] 40 mg PO DAILY 04/14/22 RX: clonazePAM [Clonazepam] 1 mg PO BID 04/14/22 RX: Cholecalciferol (Vitamin D3) [Vitamin D 1000 Iu Tab*] 1,000 unit PO DAILY #30 tab 04/18/22 Butalb/Acetaminophen/Caffeine [Yylxsq-Bhgiahib-Tdzd 50-325-40] 1 each PO Q8H PRN 05/11/22 Cholecalciferol (Vitamin D3) [Vitamin D3] 1 tab PO DAILY 05/11/22 Sevelamer Carbonate [Renvela] 1,600 mg PO TIDWM 05/12/22 Review of Systems General: Malaise Eyes: Unremarkable ENT: Unremarkable Respiratory: Shortness of Breath Cardiovascular: Chest Pain Gastrointestinal: Unremarkable Genitourinary: Unremarkable Musculoskeletal: Other (Left knee pain ) Integumentary: Unremarkable Neurological: Weakness <Rani Urbano - Last Filed: 08/31/22 06:11> Physical Examination - Physical Exam General: Alert, Oriented x3 HEENT: Atraumatic, PERRLA, Mucous membr. moist/pink, EOMI, Sclerae nonicteric Neck: Supple, 2+ carotid pulse no bruit, No LAD, Without JVD or thyroid abnormality Respiratory: Clear to auscultation bilaterally, Normal air movement Cardiovascular: No edema, Normal S1 S2 Capillary refill: <2 Seconds Gastrointestinal: Normal bowel sounds, Soft and benign, Non-distended, No tenderness Musculoskeletal: No clubbing, Tenderness, Other Integumentary: No rashes, No breakdown, No significant lesion Neurological: Normal gait, Normal speech, Normal tone, Normal affect Lymphatics: No axilla or inguinal lymphadenopathy - Studies Laboratory Data (last 24 hrs) 08/30/22 14:36: PT 10.7, INR 0.97 08/30/22 14:36: WBC 6.00, Hgb 10.3 L, Hct 31.1 L, Plt Count 211 08/30/22 14:36: Sodium 136, Potassium 4.1, BUN 43 H, Creatinine 8.68 H*, Glucose 79, Total Bilirubin 0.4, AST 20, ALT 25, Alkaline Phosphatase 116 <Rani Urbano - Last Filed: 08/31/22 06:11> Assessment and Plan - Plan -Chest pain. Likely atypical. Recent echocardiogram indicates normal findings. Will trend serial troponins.-Telemetry to monitor for any significant arrhythmia. Drill Press Operator consulted. Will await further recommendations --DM2. BS monitoring with sliding scale insulin. --Elevated d-dimer. VQ scan pending. Continue supportive care -- Paroxysmal atrial fibrillation. Continue Eliquis. Telemetry to monitor for any malignant arrhythmia. --Left knee pain. X-ray negative for acute fracture or dislocation. We will manage pain with current pain medication regimen. --ESRD. Patient on hemodialysis MWF. Nephrology consulted. Will await further recommendations. --History of frequent syncope\dizziness. Pacemaker placed recently. Further mgt per Cardiology --Cannabis use disorder. Patient counseled on drug cessation. --Hypertension. Stable. Continue home medications. -- Anxiety disorder\depression.. Continue home medication. --Anemia of chronic disease. H&H stable. We will continue monitor hemoglobin and transfuse if less than 7.0. --GERD. Continue home medication --Right BKA. Continue supportive care. --DVT prophylaxis with Eliquis. Discharge Plan: Home Plan to discharge in: Greater than 2 days - Advance Directives Does patient have a Living Will: No Does patient have a Durable POA for Healthcare: No - Code Status/Comfort Care Code Status Assessed: Yes Physician Review: Patient Assessed, Agree with Above Assessment and Plan Critical Care: No <Rani Urbano - Last Filed: 08/31/22 06:11> Physician Review: Patient Assessed, Agree with Above Assessment and Plan <Nathanael Jewell - Last Filed: 08/31/22 18:54>
[2022-08-30] MEDS: SEVELAMER CARBONATE 800 MG TABLET PO SCH (17:00)
--- NOTE | 2022-08-30 17:21 | RAD REPORT ---
EXAM DESCRIPTION: RAD - Knee Left 3 View - 08/30/2022 5:11 pm CLINICAL HISTORY: SMASH INJURY COMPARISON: No comparisons FINDINGS/IMPRESSION: Left total knee arthroplasty. Small radiopaque densities present at the lateral metaphysis of doubtful clinical significance. It may be postoperative. . No acute fracture. No malal ignment. No significant focal degenerative changes. Peripheral vascular calcifications.
[2022-08-30] MEDS ORDERED: HYDRALAZINE HCL 25 MG TABLET PO PRN (17:23)
[2022-08-30 17:41] LABS: Magnesium 2.1 mg/dL (1.8-2.4); Phosphorus 3.8 mg/dL (2.5-4.9); Thyroid Stimulating Hormone 0.956 uIU/mL (0.360-3.740)
[2022-08-30 17:47] LABS: SARS-CoV-2 Antigen Rapid Res Negative (Negative)
[2022-08-30] MEDS: ASPIRIN 325 MG TAB PO SCH (18:00)
[2022-08-30] MEDS ORDERED: MORPHINE 2 MG/ML SYR ONE (18:36)
[2022-08-30] MEDS ORDERED: ASPIRIN 325 MG TAB ONE (18:53)
[2022-08-30] MEDS: DOXAZOSIN 4 MG TAB PO SCH (21:00)
[2022-08-30] MEDS ORDERED: APIXABAN 2.5 MG TABLET PO SCH (21:00)
[2022-08-30] MEDS ORDERED: HEPARIN 5000 UNIT/ML 1 ML VIAL SQ SCH (21:00)
[2022-08-30] MEDS: DIFLUPREDNATE FT SCH (21:00)
[2022-08-30] MEDS ORDERED: DOXAZOSIN 2 MG TAB ONE (21:52)
[2022-08-30] MEDS: MORPHINE 2 MG/ML SYR IV PRN (21:56)
[2022-08-30] MEDS: atenoloL 25 MG TAB PO SCH (21:57)
[2022-08-30] MEDS: clonazePAM 1 MG TAB PO SCH (22:02)
[2022-08-30 23:27] VITALS: BMI 30.5
[2022-08-31] MEDS: MORPHINE 2 MG/ML SYR IV PRN ×3 (03:17→21:27)
[2022-08-31 06:16] LABS: Absolute Lymphocytes (CBC) 1.7 K/uL (0.7-4.9); Lymphocytes % 34.8 % (15.3-44.8); MCV 89.5 fL (80-100); MPV 7.7 fL (7.6-11.3); RBC Red Blood Cell Count 3.13 M/uL (4.33-5.43)
[2022-08-31 06:34] LABS: Potassium 5.4 mmol/L (3.5-5.1)
[2022-08-31] MEDS: SEVELAMER CARBONATE 800 MG TABLET PO SCH ×3 (08:00→17:19)
[2022-08-31] MEDS: DIFLUPREDNATE FT SCH ×2 (09:00→21:00)
[2022-08-31] MEDS: ASPIRIN 325 MG TAB PO SCH (09:23)
[2022-08-31] MEDS: clonazePAM 1 MG TAB PO SCH ×2 (09:23→21:26)
[2022-08-31] MEDS: PANTOPRAZOLE 40MG TABLET PO SCH (09:24)
[2022-08-31] MEDS: VITAMIN D 1000 UNIT TAB PO SCH (09:24)
[2022-08-31] MEDS: DOXAZOSIN 4 MG TAB PO SCH ×2 (09:24→21:00)
--- NOTE | 2022-08-31 09:41 | RAD REPORT ---
EXAM DESCRIPTION: NM - Vent Perfusion VQ Scan - 08/31/2022 9:33 am CLINICAL HISTORY: Chest pain, shortness of breath COMPARISON: Chest radiograph 08/30/2022 TECHNIQUE: The patient was administered approximately 20 mCi Xenon 133 gas with posterior projection inspiration, equilibrium, and washout views obtained. The patient was then administered approximatel y 7 mCi Tc-99m SC labeled RBCs followed by standard 8 view protocol. FINDINGS: There is good distribution of the Xenon with no ventilation defects identified. Air trappi ng is present. Perfusion images show no defects suspicious for pulmonary emboli. IMPRESSION: Normal perfusion. No pulmonary emboli identified. Air trapping is present.
[2022-08-31] MEDS ORDERED: SOD POLYSTYREN SUL 15 GM/60 ML UCUP PO ONE (09:46)
--- NOTE | 2022-08-31 10:46 | P.CNS ---
Date of Consult: 08/31/22 Reason for Consult: ESRD Requesting Physician: Nathanael Jewell Chief Complaint: Chest pain History of Present Illness: Patient is a 52-year-old male with a past medical history significant for ESRD on HD via a Lt UE AVF dialyzing TTS back at the [facility], chronic Type II DM chronic hypertension, a hx of pauses or other arrhythmias s/p PPM, a hx of syncope and other who reports developing palpitations and chest pain while on dialysis yesterday. Pt reports completing about 3h of dialysis at that point. Pt presented to the ER for further evaluation where troponin levels have been flat. HR was elevated initially but not currently, pt reports some fatigue, back pain and other this AM. Pt denies any significant dyspnea, he did undergo V/Q scan imaging for elevated D dimer this AM. Allergies lorazepam [From Ativan] Allergy (Verified 04/14/22 00:33) Hives/Rash Home Medications: Amitriptyline HCl 50 mg PO BEDTIME PRN PRN 04/14/22 Apixaban [Eliquis *] 2.5 mg PO BID 04/14/22 Difluprednate [Durezol] 1 drop EACH EYE BID 04/14/22 Doxazosin [Cardura*] 4 mg PO BID 04/14/22 Hydralazine HCl 50 mg PO TID PRN 04/14/22 Lisinopril [Zestril] 20 mg PO BID 04/14/22 Omeprazole [Prilosec] 40 mg PO DAILY 04/14/22 clonazePAM [Clonazepam] 1 mg PO BID 04/14/22 Cholecalciferol (Vitamin D3) [Vitamin D 1000 Iu Tab*] 1,000 unit PO DAILY #30 tab 04/18/22 Butalb/Acetaminophen/Caffeine [Bgzbya-Zbqimder-Myfs 50-325-40] 1 each PO Q8H PRN 05/11/22 Cholecalciferol (Vitamin D3) [Vitamin D3] 1 tab PO DAILY 05/11/22 Sevelamer Carbonate [Renvela] 1,600 mg PO TIDWM 05/12/22 - Past Medical/Surgical History Diabetic: Yes -: HTN -: rheumatoid arthritis -: ESRD on HD -: kidney cancer -: Type 2 diabetes -: total knee replacement -: L little toe amputation -: BKA R -: upper neck fusion with broken screws -: wrist surgery -: R nephrectomy -: left hand surgery Psychosocial/ Personal History: Patient is . He has a brother and a son. - Family History Mother Medical History: Other (see notes) Notes: no known medical history - Social History Smoking Status: Current every day smoker Alcohol use: No CD- Drugs: Yes Caffeine use: No Place of Residence: Home Review of Systems General: Weakness Eyes: Unremarkable ENT: Unremarkable Respiratory: Pleuritic Pain Cardiovascular: Chest Pain, Palpitations Gastrointestinal: Unremarkable Genitourinary: Unremarkable Musculoskeletal: Back Pain Integumentary: Unremarkable Neurological: Unremarkable Lymphatics: Unremarkable Physical Examination Temp Pulse Resp BP Pulse Ox 96.9 F 63 16 112/56 L 95 08/31/22 08:00 08/31/22 08:00 08/31/22 08:00 08/31/22 08:00 08/31/22 08:00 General: Alert, In no apparent distress, Oriented x3 HEENT: Atraumatic, Normocephalic, PERRLA Neck: Supple Respiratory: Clear to auscultation bilaterally, Normal air movement Cardiovascular: No edema, Regular rate/rhythm, Normal S1 S2, Other (Upper chest PPM) Gastrointestinal: Soft and benign, Non-distended, No tenderness Musculoskeletal: No swelling, No contractures, Other (Rt BKA) Integumentary: No rashes Neurological: Normal speech, Normal tone, Normal affect Laboratory Data (last 24 hrs) 08/30/22 14:36: Phosphorus 3.8, Magnesium 2.1 08/30/22 14:36: PT 10.7, INR 0.97 08/30/22 14:36: WBC 6.00, Hgb 10.3 L, Hct 31.1 L, Plt Count 211 08/30/22 14:36: Sodium 136, Potassium 4.1, BUN 43 H, Creatinine 8.68 H*, Glucose 79, Total Bilirubin 0.4, AST 20, ALT 25, Alkaline Phosphatase 116 Conclusions/Impression: A/P: 1. ESRD 2. Chest pain unspecified 3. Hypertensive CKD V/ESRD 4. Mild hyperkalemia 5. Anemia 2nd to CKD, other -Pt reports completing most of his dialysis yesterday, no emergent indication to re-dialyze today but need to f/u on potassium level -K mildly elevated, will dose Kayexalate 15 gm x 1 and recheck levels -Volume status appears acceptable currently, no signs of fluid overload. -Troponin levels flat, unclear if PPM interrogation completed in the ER, will f/u, remains no tele. -BP acceptable this AM, elevated yesterday, cont home meds. -Resume LAURO dosing on discharge at his OP clinic to target Hb of 10-11 Thank you for this referral, Myles Faria MD, EDGAR
--- NOTE | 2022-08-31 13:08 | EKG ---
Test Date: 2022-08-30 Test Time: 14:25:47 Fax Machine Operator: MEASUREMENT RESULTS: Intervals: Rate: 105 NE: 150 QRSD: 76 QT: 350 QTc: 462 [place]: P: 67 NE: 150 QRS: 61 T: 81 INTERPRETIVE STATEMENTS: Sinus tachycardia with premature supraventricular complexes and with occasional premature ventricular complexes Otherwise normal ECG Compared to ECG 06/22/2022 19:14:40 Atrial premature complex(es) now present Electronically Signed On 08-31-22 13:06:49 CDT by Tacos Pendleton
--- NOTE | 2022-08-31 17:05 | CON ---
Date of Consultation: 08/31/2022 Reason For Consultation: Chest pain. History Of Present Illness: This is a 52-year-old male, history of end-stage renal disease, diabetes , hypertension, presented with chest pain during dialysis. 06/15, sharp in nature. No radiation. Major s not have any nausea, vomiting, diarrhea, or diaphoresis. No other complaints. Past Medical History: Hypertension, end-stage renal disease, diabetes. Medications: Refer reconciliation sheet for detailed list. Allergies: LORAZEPAM. Family History: No premature coronary artery disease or cancer. Social History: Does not smoke or drink. Does not use any drugs. Review of Systems: All systems reviewed and they were negative except what was mentioned in HPI. Physical Examination: Vital Signs: Reviewed. Head and Neck: Pupils are equal, reactive to light. Intact eye movements. No JVD. No cervical lym phadenopathy. Neck is supple. Thyroid is not enlarged. Lungs: Clear to auscultation bilaterally. No rhonchi, wheezing, or crackles. No accessory muscle u se. Heart: Regular rate and rhythm. No extra sounds. Abdomen: Soft, nontender. Bowel sounds positive. No organomegaly. No masses or hernia. No rigidi ty or rebound. Extremities: No edema, clubbing, or cyanosis. Intact pulses. Skin: No rash. Neurologic: Alert, awake, and oriented x3. No acute focal deficits appreciated. Investigations: BUN 59, creatinine is 11. Troponin x3 are negative. Assessment And Recommendations: 1.Chest pain. Has multiple risk factors. Recommend Lexiscan nuclear stress test and an echocardiog billy and further plan accordingly. Continue aspirin, change it to 81 mg. Discontinue the 325 mg aspi rin and put him on 81 mg daily. 2.End-stage renal disease, on hemodialysis. He is getting that inhouse. SR/MODL Voice ID: [id number] Report ID: [id number]
--- NOTE | 2022-08-31 18:56 | P.PN ---
Subjective Date of Service: 08/31/22 Chief Complaint: Chest pain No acute events overnight. He reports that his chest pain is persistent, but slightly improved from yesterday. The chest pain occurs intermittently, without any obvious inciting or alleviating factors. He denies shortness of breath. Review of Systems 10-point ROS is otherwise unremarkable Cardiovascular: Chest Pain Musculoskeletal: Other (s/p right BKA) Physical Examination - Vital Signs Temperature: 97.7 F Blood Pressure: 134/70 Pulse: 64 Respirations: 14 Pulse Ox (%): 97 Assessment And Plan - Plan PHYSICAL EXAM: General: Alert, In no apparent distress, Oriented x3 HEENT: Atraumatic, Mucous membr. moist/pink Neck: Supple, Without JVD or thyroid abnormality Respiratory: Clear to auscultation bilaterally, Normal air movement Cardiovascular: Irregular rate/rhythm, pacemaker in place, No gallops, No rubs, No murmurs Gastrointestinal: Normal bowel sounds, Soft and benign, No tenderness, No rebound, No guarding Musculoskeletal: No clubbing, Other (s/p right BKA) Integumentary: No rashes Neurological: Normal speech, Normal affect Urinary: Dialysis catheter # Chest Pain, concern for Unstable Angina # Sick Sinus Syndrome and Chronic Atrial Fibrillation s/p PPM # Hypertension - Evaluation thus far: - EKG: atrial fibrillation without STEMI criteria, trend - Serial troponin: 31.4 -> 31.2 -> 31.2 - D-Dimer = 732 - Chest x-ray = "no acute cardiopulmonary disease." - V/Q scan = "normal perfusion. No pulmonary emboli identified. Air trapping is present." - Management plan: - Consulted Cardiology and spoke with Dr. Pendleton - recommendations appreciated - Plan for [facility] tomorrow - Continue home aspirin, atenolol - If cardiac ischemia confirmed, plan to start YUNG-inhibitor/ARB, statin as tolerated # End-Stage Renal Disease on MWF iHD # Anemia of Chronic Kidney Disease # Mild Hyperkalemia - Nephrology consulted and spoke with Dr. Faria - recommendations appreciated - Continue home sevelamer # Type II Diabetes Mellitus - Correction scale insulin # Anxiety/Depression - Continue home clonazepam, amitriptyline # Gastroesophageal Reflux Disease - Continue pantoprazole # Cannabis Use Disorder - Substance cessation counseling provided # S/P Right Jyqqt-ene-Fguh Amputation - Requested wheelchair due to limited mobility at home - Consulted case management Nathanael Jewell M.D.
[2022-08-31] MEDS ORDERED: DOXAZOSIN 2 MG TAB ONE (20:22)
[2022-08-31] MEDS: atenoloL 25 MG TAB PO SCH (21:26)
[2022-09-01] MEDS: MORPHINE 2 MG/ML SYR IV PRN ×3 (05:57→21:39)
[2022-09-01 06:16] LABS: Absolute Lymphocytes (CBC) 1.4 K/uL (0.7-4.9); Hematocrit 27.1 % (39.6-49.0); Lymphocytes % 29.8 % (15.3-44.8); MCV 88.7 fL (80-100); MPV 7.6 fL (7.6-11.3); Protime INR 0.95; RBC Red Blood Cell Count 3.05 M/uL (4.33-5.43)
[2022-09-01 06:26] LABS: Potassium 5.6 mmol/L (3.5-5.1)
[2022-09-01] MEDS: DIFLUPREDNATE FT SCH ×2 (09:00→21:00)
[2022-09-01] MEDS: SEVELAMER CARBONATE 800 MG TABLET PO SCH ×3 (09:02→17:24)
[2022-09-01] MEDS: VITAMIN D 1000 UNIT TAB PO SCH (09:05)
[2022-09-01] MEDS: DOXAZOSIN 4 MG TAB PO SCH ×2 (09:06→21:38)
[2022-09-01] MEDS: clonazePAM 1 MG TAB PO SCH ×2 (09:06→21:38)
[2022-09-01] MEDS: ASPIRIN 325 MG TAB PO SCH (09:06)
[2022-09-01] MEDS: PANTOPRAZOLE 40MG TABLET PO SCH (09:06)
[2022-09-01] MEDS ORDERED: LIDOCAINE 1% MPF 30 ML VIAL ONE (10:42)
[2022-09-01] MEDS ORDERED: HEPA 1000U/500MLS 2,000 UNIT/1,000 ML BAG IV ONE (10:43)
--- NOTE | 2022-09-01 10:46 | P.PN ---
Nephrology note: (S) Pt seen this AM, resting comfortably, denies any shortness of breath but acknowledges some intermittent CP radiating to back. General: Alert, In no apparent distress, Oriented x3 HEENT: Atraumatic, Normocephalic, PERRLA Neck: Supple Respiratory: Clear to auscultation bilaterally, Normal air movement Cardiovascular: No edema, Regular rate/rhythm, Normal S1 S2, Other (Upper chest PPM) Gastrointestinal: Soft and benign, Non-distended, No tenderness Musculoskeletal: No swelling, No contractures, Other (Rt BKA) Integumentary: No rashes Neurological: Normal speech, Normal tone, Normal affect Laboratory Data (last 24 hrs) Reviewed Conclusions/Impression: A/P: 1. ESRD 2. Hyperkalemia 3. Chest pain unspecified 4. Hypertensive CKD V/ESRD 5. Anemia 2nd to CKD, other -HD today per OP HD schedule, see orders for details. Will plan to dialyze pre- cath given hyperkalemia. -Will dialyze with low K bath of 2.0 meq/L -Volume status appears acceptable currently, no signs of fluid overload. Will nonetheless target EDW and follow up on LVEDP on [facility]. -Cardiac w/u per Cardiology, plan for [facility] as mentioned above. -Monitor post HD BP. -Resume LAURO dosing on discharge at his OP clinic to target Hb of 10-11 Myles Faria MD, EDGAR
--- NOTE | 2022-09-01 14:34 | EKG ---
Test Date: 2022-08-30 Test Time: 14:55:24 Post Anesthesia Care Unit Nurse: MEASUREMENT RESULTS: Intervals: Rate: 97 NH: 160 QRSD: 82 QT: 364 QTc: 462 [place]: P: 65 NH: 160 QRS: 59 T: 80 INTERPRETIVE STATEMENTS: Sinus rhythm with occasional premature ventricular complexes Otherwise normal ECG Compared to ECG 08/30/2022 14:25:47 Sinus tachycardia no longer present Atrial premature complex(es) no longer present Electronically Signed On 09-01-22 14:31:18 CDT by Tacos Pendleton
--- NOTE | 2022-09-01 20:22 | P.PN ---
Subjective Date of Service: 09/01/22 Chief Complaint: Chest pain No acute events overnight. He has been NPO past midnight. Left heart catheterization is planned for today around 14:00. He denies any chest pain and shortness of breath. Review of Systems 10-point ROS is otherwise unremarkable Musculoskeletal: Leg Pain (s/p right BKA) Physical Examination - Vital Signs Temperature: 98.0 F Blood Pressure: 174/78 Pulse: 75 Respirations: 20 Pulse Ox (%): 97 - Studies Laboratory Data (last 24 hrs) 09/01/22 05:32: Sodium 135 L, Potassium 5.6 H*, BUN 79 H, Creatinine 13.90 H*, Glucose 98 09/01/22 05:32: PT 10.4, INR 0.95 09/01/22 05:32: WBC 4.70, Hgb 8.9 L, Hct 27.1 L, Plt Count 166 08/31/22 20:10: Potassium 5.7 H* Assessment And Plan - Plan PHYSICAL EXAM: General: Alert, In no apparent distress, Oriented x3 HEENT: Atraumatic, Mucous membr. moist/pink Neck: Supple, Without JVD or thyroid abnormality Respiratory: Clear to auscultation bilaterally, Normal air movement Cardiovascular: Irregular rate/rhythm, pacemaker in place, No gallops, No rubs, No murmurs Gastrointestinal: Normal bowel sounds, Soft and benign, No tenderness, No rebound, No guarding Musculoskeletal: No clubbing, Other (s/p right BKA) Integumentary: No rashes Neurological: Normal speech, Normal affect Urinary: Dialysis catheter # Chest Pain, concern for Unstable Angina # Sick Sinus Syndrome and Chronic Atrial Fibrillation s/p PPM # Hypertension - Evaluation thus far: - EKG: atrial fibrillation without STEMI criteria, trend - Serial troponin: 31.4 -> 31.2 -> 31.2 - D-Dimer = 732 - Chest x-ray = "no acute cardiopulmonary disease." - V/Q scan = "normal perfusion. No pulmonary emboli identified. Air trapping is present." - Management plan: - Consulted Cardiology and spoke with Dr. Pendleton - recommendations appreciated - Plan for [facility] today at 14:00 - Continue home aspirin, atenolol - If cardiac ischemia confirmed, plan to start YUNG-inhibitor/ARB, statin as tolerated # End-Stage Renal Disease on MWF iHD # Anemia of Chronic Kidney Disease # Mild Hyperkalemia - Nephrology consulted and spoke with Dr. Faria - recommendations appreciated - Continue home sevelamer # Type II Diabetes Mellitus - Correction scale insulin # Anxiety/Depression - Continue home clonazepam, amitriptyline # Gastroesophageal Reflux Disease - Continue pantoprazole # Cannabis Use Disorder - Substance cessation counseling provided # S/P Right [id number]-Mtdb Amputation - Requested wheelchair due to limited mobility at home - Consulted case management Nathanael Jewell M.D.
[2022-09-01] MEDS: atenoloL 25 MG TAB PO SCH (21:38)
--- NOTE | 2022-09-01 23:56 | PN ---
Date of Progress Note: 09/01/2022 Subjective: Seen by bedside. Continues to have chest pain on and off with activities. Review of Systems: Positive chest pain as above. No nausea, vomiting, or diarrhea. No abdominal pain. No history of d ysuria, polyuria, or urinary urgency. No skin rash or headache. All other systems reviewed and they are negative. Physical Examination: Vital Signs: Reviewed. Head and Neck: Pupils are equal, reactive to light. Intact eye movements. No JVD. No cervical lym phadenopathy. Neck is supple. Thyroid is not enlarged. Lungs: Clear to auscultation bilaterally. No rhonchi, wheezing, or crackles. No accessory muscle u se. Heart: Regular rate and rhythm. No extra sounds. Abdomen: Soft, nontender. Bowel sounds positive. No organomegaly. No masses or hernia. No rigidi ty or rebound. Extremities: No edema, clubbing, or cyanosis. Intact pulses. Skin: No rashes. Neurologic: Alert, awake, oriented x3. No acute focal deficits appreciated. Assessment/plan: 1.Chest pain is not getting better. This could be an unstable angina. Keep him n.p.o. Plan for co ronary angiogram tomorrow morning. 2.End-stage renal disease, on hemodialysis, to continue in-house dialysis. 3.Hyperkalemia. Please consult Nephrology for dialysis in-house to correct this before the procedur e tomorrow morning. SR/MODL Voice ID: [id number] Report ID: [id number]
[2022-09-02 04:11] VITALS: O2SAT 96
[2022-09-02 04:36] VITALS: BP 113/56; TEMP 97.9
[2022-09-02] MEDS ORDERED: LIDOCAINE 1% MPF 30 ML VIAL ONE (05:57)
[2022-09-02] MEDS ORDERED: HEPA 1000U/500MLS 2,000 UNIT/1,000 ML BAG IV ONE (05:57)
[2022-09-02] MEDS ORDERED: MIDAZOLAM HCL 2 MG/2 ML INJ ONE (05:58)
[2022-09-02] MEDS ORDERED: HEPARIN 5000 UNIT/ML 1 ML VIAL ONE (05:58)
[2022-09-02] MEDS ORDERED: FENTANYL CITR 100 MCG/2 ML ONE (05:58)
[2022-09-02] MEDS ORDERED: HEPARIN 10,000 UNIT/10 ML VIAL IV ONE (05:59)
[2022-09-02] MEDS ORDERED: ATROPINE SULF 1 MG/10 ML SYR IV ONE (05:59)
[2022-09-02] MEDS ORDERED: ASPIRIN 325 MG TAB ONE (05:59)
[2022-09-02] MEDS ORDERED: TICAGRELOR 90 MG TABLET PO ONE (05:59)
[2022-09-02] MEDS ORDERED: VERAPAMIL HCL 10 MG/4 ML VIAL IV ONE (05:59)
[2022-09-02] MEDS ORDERED: CLOPIDOGREL 75 MG TABLET ONE (05:59)
[2022-09-02 06:02] LABS: Potassium 5.2 mmol/L (3.5-5.1)
--- NOTE | 2022-09-02 06:37 | P.DS ---
Admission Date: 09/01/22 Discharge Date: 09/02/22 Disposition: AMA-LEFT AGAINST MEDICAL ADVIC Discharge Condition: FAIR Reason for Admission: Chest pain Consultations: 1. Cardiology Hospital Course: DIAGNOSES: # Chest Pain, concern for Unstable Angina # Sick Sinus Syndrome and Chronic Atrial Fibrillation s/p PPM # Hypertension # End-Stage Renal Disease on MWF iHD # Anemia of Chronic Kidney Disease # Mild Hyperkalemia # Type II Diabetes Mellitus # Anxiety/Depression # Gastroesophageal Reflux Disease # Cannabis Use Disorder # S/P Right [id number] Amputation HOSPITAL COURSE: Mr. Vladimir Maguire is a 52 year old male with a past medical history significant for sick sinus syndrome and chronic atrial fibrillation s/p PPM, end-stage renal disease on MWF iHD, type 2 diabetes mellitus, hypertension, anxiety, depression, and gastroesophageal reflux disease who was admitted to the [facility] on 08/30/2022 for chest pain. He was admitted to the Medicine service. His EKG revealed atrial fibrillation without STEMI criteria. His troponin trend was 31.4 -> 31.2 -> 31.2. His d-dimer returned at 732. His chest x-ray, revealed, "no acute cardiopulmonary disease." His V/Q scan revealed, "normal perfusion. No pulmonary emboli identified. Air trapping is present." Cardiology was consulted and he was evaluated by Dr. Pendleton. He was scheduled to have a left heart catheterization today; however, this morning, he reports that his son was hospitalized in [facility]. He stated that he does not wish to stay for the procedure because he wants to go see his son in the hospital. I explained to him that, although I understand his situation and respect his wishes, our medical advice is for him to have the procedure today prior to being discharged. I explained that a premature discharge may lead to several complications including, but not limited to, worsening symptoms, cardiac ischemia, and potentially . He verbalized his understanding and repeated these risks back to me. He stated that he would prefer to follow-up as an outpatient to schedule this with Dr. Pendleton. I have provided him with Dr. Pendleton office number to schedule this appointment at his earliest convenience. He has decided to sign out AGAINST MEDICAL ADVICE. Maritza Hamilton RN and Lizandro Watkins RN were present for this discussion. Based on his ability to understand his disease process, understand the consequences of not pursuing therapy, communicate that he would like to be discharged, and his ability to explain his rationale for being discharged, we believe that he has medical decision making capacity. He was discharged with instructions to schedule follow-up appointments with his PCP, Cardiology (Dr. Pendleton), and Nephrology (Dr. Roca). He was given the opportunity to ask questions and reported no further questions. Furthermore, all questions were answered to the best of my ability. A copy of this discharge summary will be sent to the above providers to facilitate continuity of care. Today, I personally spent 20 minutes on his case, of which greater than 50% of the time was spent in patient education, counseling, and coordination of care as described above. PHYSICAL EXAM: General: Alert, In no apparent distress, Oriented x3 HEENT: Atraumatic, Mucous membr. moist/pink Neck: Supple, Without JVD Respiratory: Clear to auscultation bilaterally, Normal air movement Cardiovascular: Irregular rate/rhythm, pacemaker in place, No gallops, No rubs, No murmurs Gastrointestinal: Normal bowel sounds, Soft and benign, No tenderness, No rebound, No guarding Musculoskeletal: No clubbing, Other (s/p right BKA) Integumentary: No rashes Neurological: Normal speech, Normal affect Urinary: Dialysis catheter Vital Signs/Physical Exam: Temp Pulse Resp BP Pulse Ox 97.9 F 69 17 113/56 L 92 09/02/22 04:00 09/02/22 04:00 09/02/22 04:00 09/02/22 04:00 09/02/22 04:00 Laboratory Data at Discharge: WBC 4.70 K/uL (4.3-10.9) 09/01/22 05:32 Hgb 8.9 g/dL (13.6-17.9) L 09/01/22 05:32 Hct 27.1 % (39.6-49.0) L 09/01/22 05:32 Plt Count 166 K/uL (152-406) 09/01/22 05:32 PT 10.4 SECONDS (9.5-12.5) 09/01/22 05:32 INR 0.95 09/01/22 05:32 Sodium 136 mmol/L (136-145) 09/02/22 05:21 Potassium 5.2 mmol/L (3.5-5.1) H 09/02/22 05:21 BUN 57 mg/dL (7-18) H 09/02/22 05:21 Creatinine 9.96 mg/dL (0.55-1.3) H* 09/02/22 05:21 Glucose 120 mg/dL (74-106) H 09/02/22 05:21 Phosphorus 3.8 mg/dL (2.5-4.9) 08/30/22 14:36 Magnesium 2.1 mg/dL (1.8-2.4) 08/30/22 14:36 Total Bilirubin 0.4 mg/dL (0.2-1.0) 08/30/22 14:36 AST 20 U/L (15-37) 08/30/22 14:36 ALT 25 U/L (12-78) 08/30/22 14:36 Alkaline Phosphatase 116 U/L (45-117) 08/30/22 14:36 Home Medications: Amitriptyline HCl 50 mg PO BEDTIME PRN PRN 04/14/22 Apixaban [Eliquis *] 2.5 mg PO BID 04/14/22 Difluprednate [Durezol] 1 drop EACH EYE BID 04/14/22 Doxazosin [Cardura*] 4 mg PO BID 04/14/22 Hydralazine HCl 50 mg PO TID PRN 04/14/22 Lisinopril [Zestril] 20 mg PO BID 04/14/22 Omeprazole [Prilosec] 40 mg PO DAILY 04/14/22 clonazePAM [Clonazepam] 1 mg PO BID 04/14/22 Cholecalciferol (Vitamin D3) [Vitamin D 1000 Iu Tab*] 1,000 unit PO DAILY #30 tab 04/18/22 Butalb/Acetaminophen/Caffeine [Dppdgy-Jajvkpby-Noio 50-325-40] 1 each PO Q8H PRN 05/11/22 Cholecalciferol (Vitamin D3) [Vitamin D3] 1 tab PO DAILY 05/11/22 Sevelamer Carbonate [Renvela*] 1,600 mg PO TIDWM 05/12/22 Physician Discharge Instructions: 1. Please schedule a follow-up appointment with your PCP in 3-5 days 2. Please schedule a follow-up appointment with Cardiology (Dr. Pendleton) in 3-5 days 3. Please schedule a follow-up appointment with Nephrology (Dr. Roca) in 5-7 days Diet: Renal Activity: Ad santi Followup: NONE,NONE [Primary Care Provider] - Tacos Pendleton MD [ACTIVE - CAN ADMIT] - Waldo Roca DO [ACTIVE - CAN ADMIT] - Time spent managing pt's care (in minutes): 20
--- NOTE | 2022-09-02 14:43 | EKG ---
Test Date: 2022-09-01 Test Time: 17:06:55 [employer]: MIGUEL ANGEL MEASUREMENT RESULTS: Intervals: Rate: 74 ME: 170 QRSD: 84 QT: 408 QTc: 452 [place]: P: 51 ME: 170 QRS: 55 T: 72 INTERPRETIVE STATEMENTS: Normal sinus rhythm Normal ECG Compared to ECG 08/30/2022 14:55:24 Ventricular premature complex(es) no longer present Electronically Signed On 09-02-22 14:42:54 CDT by Tacos Pendleton
[2022-09-04 18:45] LABS: HBsAG Nonreactive (Nonreactive)
== END 2022-09-02 06:20 | disposition left against medical advice (07) | DRG 308 ==
LOC: ER 13:52 → ERHOLD 16:40 → 4TH 20:26 → OBSVTOIN 09-01 15:34
PROVIDERS: ADMIT Internal Medicine; ATTEND Internal Medicine
PROC: 5A1D70Z Performance of Urinary Filtration, Intermittent, Less than 6 Hours Per Day (ICD-10-PCS; principal; 2022-09-01)
DX: I48.0 Paroxysmal atrial fibrillation (principal); N18.6 End stage renal disease; I20.0 Unstable angina; I12.0 Hypertensive chronic kidney disease with stage 5 chronic kidney disease or end stage renal disease; I49.5 Sick sinus syndrome; E11.22 Type 2 diabetes mellitus with diabetic chronic kidney disease; E11.40 Type 2 diabetes mellitus with diabetic neuropathy, unspecified; D63.1 Anemia in chronic kidney disease; E87.5 Hyperkalemia; M25.562 Pain in left knee; F32.A Depression, unspecified; F41.9 Anxiety disorder, unspecified; K21.9 Gastro-esophageal reflux disease without esophagitis; D63.8 Anemia in other chronic diseases classified elsewhere; F17.200 Nicotine dependence, unspecified, uncomplicated; R79.89 Other specified abnormal findings of blood chemistry; Z99.2 Dependence on renal dialysis; Z95.0 Presence of cardiac pacemaker; Z88.8 Allergy status to other drugs, medicaments and biological substances; Z79.01 Long term (current) use of anticoagulants; Z53.29 Procedure and treatment not carried out because of patient's decision for other reasons; Z89.511 Acquired absence of right leg below knee; Z28.310 Unvaccinated for COVID-19; Z79.899 Other long term (current) drug therapy; Z89.422 Acquired absence of other left toe(s); Z85.528 Personal history of other malignant neoplasm of kidney; Z20.822 Contact with and (suspected) exposure to COVID-19
CPT/HCPCS: 36415; 71045; 78582; 80048; 80076; 82947; 83735; 83880; 84100; 84132; 84439; 84443; 84484; 85025; 85379; 85610; 86317; 86704; 87340; 87811; 90935; 93005; 96374; 96375; 99285; A9540; A9558; G0378; J1644; J2250; J2270; J2405; J3010

== ENCOUNTER 2022-12-24 15:42 | Inpatient (IN) | payer OTHER ==
--- OUTSIDE RECORDS SUMMARY | 2022-12-24 15:53 | XMS REPORT | Continuity of Care Document ---
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 2.5mg Take 1 [facility] (ELIQUIS) 3-10 tablet by ity o f 2.5 mg 00:00: mouth 2 [place] tablet 00 (two) Medical times Branch daily. Indication s: atrial fibrillati on apixaban Yes 1358 2.5mg Take 1 [facility] (ELIQUIS) 3-10 tablet by ity o f 2.5 mg 00:00: mouth 2 [place] tablet 00 (two) Medical times Branch daily. Indication s: atrial fibrillati on apixaban Yes 1358 2.5mg Take 1 [facility] (ELIQUIS) 3-10 tablet by ity o f 2.5 mg 00:00: mouth 2 [place] tablet 00 (two) Medical times Branch daily. Indication s: atrial fibrillati on metoprolol 2021- No [id number] 100mg Take 1 [facility] tartrate 3-10 11-02 tablet by ity o f 100 mg 00:00: 00:00 mouth 2 [place] tablet 00 :00 (two) Medical times Branch daily. metoprolol 2021- No [id number] 100mg Take 1 [facility] tartrate 3-10 11-02 tablet by ity o f 100 mg 00:00: 00:00 mouth 2 [place] tablet 00 :00 (two) Medical times Branch daily. metoprolol 2021- No [id number] 100mg Take 1 [facility] tartrate 3-10 09-07 tablet by ity o f 100 mg 00:00: 00:00 mouth 2 [place] tablet 00 :00 (two) [facility] daily. lisinopril 2020-11 Yes 30mg Take 30 mg U [facility]ivers 30 mg 1-23 by mouth ity of tablet 13:57: daily. [address] meloxicam 2020-11 Yes 15mg Take 15 mg [facility] 15 mg 1-23 by mouth ity of tablet 13:57: daily. [address] lisinopril 2020-11 Yes 30mg Take 30 mg U nivers 30 mg 1-23 by mouth ity of tablet 13:57: daily. [address] meloxicam 2020-11 Yes 15mg Take 15 mg [facility] 15 mg 1-23 by mouth ity of tablet 13:57: daily. [address] lisinopril 2020-11 Yes 30mg Take 30 mg U nivers 30 mg 1-23 by mouth ity of tablet 13:57: daily. [address] meloxicam 2020-11 Yes 15mg Take 15 mg [facility] 15 mg 1-23 by mouth ity of tablet 13:57: daily. [address] lisinopril 2020-11 Yes 30mg Take 30 mg U nivers 30 mg 1-23 by mouth ity of tablet 13:57: daily. [address] meloxicam 2020-11 Yes 15mg Take 15 mg [facility] 15 mg 1-23 by mouth ity of tablet 13:57: daily. [address] lisinopril 2020-11 Yes 30mg Take 30 mg U [facility]ivers 30 mg 1-23 by mouth ity of tablet 13:57: daily. [address] meloxicam 2020-11 Yes 15mg Take 15 mg [facility] 15 mg 1-23 by mouth ity of tablet 13:57: daily. [address] lisinopril 2020-11 Yes 30mg Take 30 mg [facility] 30 mg 1-23 by mouth ity of tablet 13:57: daily. [address] meloxicam 2020-11 Yes 15mg Take 15 mg [facility] 15 mg 1-23 by mouth ity of tablet 13:57: daily. [address] lisinopril 2020-11 Yes 30mg Take 30 mg [facility] 30 mg 1-23 by mouth ity of tablet 13:57: daily. [address] meloxicam 2020-11 Yes 15mg Take 15 mg [facility] 15 mg 1-23 by mouth ity of tablet 13:57: daily. [address] lisinopril 2020-11 Yes 30mg Take 30 mg [facility] 30 mg 1-23 by mouth ity of tablet 13:57: daily. [address] meloxicam 2020-11 Yes 15mg Take 15 mg [facility] 15 mg 1-23 by mouth ity of tablet 13:57: daily. [address] lisinopril 2020-11 Yes 30mg Take 30 mg [facility]ivers 30 mg 1-23 by mouth ity of tablet 13:57: daily. [address] meloxicam 2020-11 Yes 15mg Take 15 mg [facility] 15 mg 1-23 by mouth ity of tablet 13:57: daily. [address] lisinopril 2020-11 Yes 30mg Take 30 mg [facility]ivers 30 mg 1-23 by mouth ity of tablet 13:57: daily. [address] meloxicam 2020-11 Yes 15mg Take 15 mg [facility] 15 mg 1-23 by mouth ity of tablet 13:57: daily. [address] lisinopril 2020-11 Yes 30mg Take 30 mg [facility] 30 mg 1-23 by mouth ity of tablet 13:57: daily. [address] meloxicam 2020-11 Yes 15mg Take 15 mg [facility] 15 mg 1-23 by mouth ity of tablet 13:57: daily. [address] lisinopril 2020-11 Yes 30mg Take 30 mg [facility]ivers 30 mg 1-23 by mouth ity of tablet 13:57: daily. [address] meloxicam 2020-11 Yes 15mg Take 15 mg [facility] 15 mg 1-23 by mouth ity of tablet 13:57: daily. [address] lisinopril 2020-11 Yes 30mg Take 30 mg [facility]ivers 30 mg 1-23 by mouth ity of tablet 13:57: daily. [address] meloxicam 2020-11 Yes 15mg Take 15 mg [facility] 15 mg 1-23 by mouth ity of tablet 13:57: daily. [address] lisinopril 2020-11 Yes 30mg Take 30 mg [facility]ivers 30 mg 1-23 by mouth ity of tablet 13:57: daily. [address] meloxicam 2020-11 Yes 15mg Take 15 mg [facility] 15 mg 1-23 by mouth ity of tablet 13:57: daily. [address] lisinopril 2020-11 Yes 30mg Take 30 mg [facility]ivers 30 mg 1-23 by mouth ity of tablet 13:57: daily. [address] meloxicam 2020-11 Yes 15mg Take 15 mg [facility] 15 mg 1-23 by mouth ity of tablet 13:57: daily. [address] lisinopril 2020-11 Yes 30mg Take 30 mg [facility]ivers 30 mg 1-23 by mouth ity of tablet 13:57: daily. [address] meloxicam 2020-11 Yes 15mg Take 15 mg [facility] 15 mg 1-23 by mouth ity of tablet 13:57: daily. [address] lisinopril 2020-11 Yes 30mg Take 30 mg [facility]ivers 30 mg 1-23 by mouth ity of tablet 13:57: daily. [address] meloxicam 2020-11 Yes 15mg Take 15 mg [facility] 15 mg 1-23 by mouth ity of tablet 13:57: daily. [address] lisinopril 2020-11 Yes 30mg Take 30 mg [facility]ivers 30 mg 1-23 by mouth ity of tablet 13:57: daily. [address] meloxicam 2020-11 Yes 15mg Take 15 mg [facility] 15 mg 1-23 by mouth ity of tablet 13:57: daily. [address] HYDROcodone Yes [id number] 1{tbl} Take 1 [facility]olas -acetaminop 3-28 tablet by ity of hen 5-325 00:00: mouth [place] mg tablet 00 every 6 [facility] (six) Branch hours as needed for Pain [...] Indication s: acute pain nitroglycer 2020-0 Yes [id number] .5[in_u Apply 0.5 [facility] in 2 % 6-02 s] Inches to ity of ointment 00:00: skin 4 [place] 00 (four) Medical times Branch daily as needed (finger pain). nitroglycer 2020-0 Yes [id number] .5[in_u Apply 0.5 [facility] in 2 % 6-02 s] Inches to ity of ointment 00:00: skin 4 00 (four) Medical times Branch daily as needed (finger pain). nitroglycer 2020-0 Yes [id number] .5[in_u Apply 0.5 [facility] in 2 % 6-02 s] Inches to ity of ointment 00:00: skin 4 [place] 00 (four) Medical times Branch daily as needed (finger pain). nitroglycer 2020-0 Yes [id number] .5[in_u Apply 0.5 [facility] in 2 % 6-02 s] Inches to ity of ointment 00:00: skin 4 [place] 00 (four) Medical times Branch daily as needed (finger pain). nitroglycer 2020-0 Yes [id number] .5[in_u Apply 0.5 [facility] in 2 % 6-02 s] Inches to ity of ointment 00:00: skin 4 [place] 00 (four) Medical times Branch daily as needed (finger pain). nitroglycer 2020-0 Yes [id number] .5[in_u Apply 0.5 [facility] in 2 % 6-02 s] Inches to ity of ointment 00:00: skin 4 [place] 00 (four) Medical times Branch daily as needed (finger pain). nitroglycer 2020-0 Yes [id number] .5[in_u Apply 0.5 [facility] in 2 % 6-02 s] Inches to ity of ointment 00:00: skin 4 (four) Medical times Branch daily as needed (finger pain). nitroglycer 2020-0 Yes [id number] .5[in_u Apply 0.5 [facility] in 2 % 6-02 s] Inches to ity of ointment 00:00: skin 4 (four) Medical times Branch daily as needed (finger pain). nitroglycer 2020-0 Yes [id number] .5[in_u Apply 0.5 [facility] in 2 % 6-02 s] Inches to ity of ointment 00:00: skin 4 (four) Medical times Branch daily as needed (finger pain). nitroglycer 2020-0 Yes [id number] .5[in_u Apply 0.5 [facility] in 2 % 6-02 s] Inches to ity of ointment 00:00: skin 4 (four) Medical times Branch daily as needed (finger pain). nitroglycer 2020-0 Yes [id number] .5[in_u Apply 0.5 [facility] in 2 % 6-02 s] Inches to ity of ointment 00:00: skin 4 (four) Medical times Branch daily as needed (finger pain). nitroglycer 2020-0 Yes [id number] .5[in_u Apply 0.5 [facility] in 2 % 6-02 s] Inches to ity of ointment 00:00: skin 4 (four) Medical times Branch daily as needed (finger pain). nitroglycer 2020-0 Yes [id number] .5[in_u Apply 0.5 [facility] in 2 % 6-02 s] Inches to ity of ointment 00:00: skin 4 (four) Medical times Branch daily as needed (finger pain). nitroglycer 2020-0 Yes [id number] .5[in_u Apply 0.5 [facility] in 2 % 6-02 s] Inches to ity of ointment 00:00: skin 4 (four) Medical times Branch daily as needed (finger pain). nitroglycer 2020-0 Yes [id number] .5[in_u Apply 0.5 [facility] in 2 % 6-02 s] Inches to ity of ointment 00:00: skin 4 (four) Medical times Branch daily as needed (finger pain). nitroglycer 2020-0 Yes [id number] .5[in_u Apply 0.5 [facility] in 2 % 6-02 s] Inches to ity of ointment 00:00: skin 4 [place] (four) Medical times Branch daily as needed (finger pain). nitroglycer 2020-0 Yes [id number] .5[in_u Apply 0.5 [facility] in 2 % 6-02 s] Inches to ity of ointment 00:00: skin 4 [place] (four) Medical times Branch daily as needed (finger pain). nitroglycer 2020-0 Yes [id number] .5[in_u Apply 0.5 [facility] in 2 % 6-02 s] Inches to ity of ointment 00:00: skin 4 [place] (four) Medical times Branch daily as needed (finger pain). oxyCODONE 2020-0 Yes [id number] 30mg Take 30 mg [facility] CR 30 mg 5-24 by mouth ity of TR12 00:00: every 12 [place] [address] (twelve) Medical hours. Branch oxyCODONE 2020-0 Yes [id number] 30mg Take 30 mg [facility] CR 30 mg 5-24 by mouth ity of TR12 00:00: every 12 [place] [address] (twelve) Medical hours. Branch oxyCODONE 2020-0 Yes [id number] 30mg Take 30 mg [facility] CR 30 mg 5-24 by mouth ity of TR12 00:00: every 12 [place] [address] (twelve) Medical hours. Branch oxyCODONE 2020-0 Yes [id number] 30mg Take 30 mg [facility] CR 30 mg 5-24 by mouth ity of TR12 00:00: every 12 [place] [address] (twelve) Medical hours. Branch oxyCODONE 2020-0 Yes [id number] 30mg Take 30 mg [facility] CR 30 mg 5-24 by mouth ity of TR12 00:00: every 12 [place] [address] (twelve) Medical hours. Branch oxyCODONE 2020-0 Yes [id number] 30mg Take 30 mg [facility] CR 30 mg 5-24 by mouth ity of TR12 00:00: every 12 [place] [address] (twelve) Medical hours. Branch oxyCODONE 2020-0 Yes [id number] 30mg Take 30 mg [facility] CR 30 mg 5-24 by mouth ity of TR12 00:00: every 12 [place] [address] (twelve) Medical hours. Branch oxyCODONE 2020-0 Yes [id number] 30mg Take 30 mg [facility] CR 30 mg 5-24 by mouth ity of TR12 00:00: every 12 [place] 00 (twelve) Medical hours. Branch oxyCODONE 2020-0 Yes [id number] 30mg Take 30 mg [facility] CR 30 mg 5-24 by mouth ity of TR12 00:00: every 12 [place] 00 (twelve) Medical hours. Branch oxyCODONE 2020-0 Yes [id number] 30mg Take 30 mg [facility] CR 30 mg 5-24 by mouth ity of TR12 00:00: every 12 [place] 00 (twelve) Medical hours. Branch oxyCODONE 2020-0 Yes [id number] 30mg Take 30 mg [facility] CR 30 mg 5-24 by mouth ity of TR12 00:00: every 12 [place] 00 (twelve) Medical hours. Branch oxyCODONE 2020-0 Yes [id number] 30mg Take 30 mg [facility] CR 30 mg 5-24 by mouth ity of TR12 00:00: every 12 [place] [address] (twelve) Medical hours. Branch oxyCODONE 2020-0 Yes [id number] 30mg Take 30 mg [facility] CR 30 mg 5-24 by mouth ity of TR12 00:00: every 12 [place] [address] (twelve) Medical hours. Branch oxyCODONE 2020-0 Yes [id number] 30mg Take 30 mg [facility] CR 30 mg 5-24 by mouth ity of TR12 00:00: every 12 [place] [address] (twelve) Medical hours. Branch oxyCODONE 2020-0 Yes [id number] 30mg Take 30 mg [facility] CR 30 mg 5-24 by mouth ity of TR12 00:00: every 12 [place] [address] (twelve) Medical hours. Branch oxyCODONE 2020-0 Yes [id number] 30mg Take 30 mg [facility] CR 30 mg 5-24 by mouth ity of TR12 00:00: every 12 [place] 00 (twelve) Medical hours. Branch oxyCODONE 2020-0 Yes [id number] 30mg Take 30 mg [facility] CR 30 mg 5-24 by mouth ity of TR12 00:00: every 12 [place] [address] (twelve) Medical hours. Branch oxyCODONE 2020-0 Yes [id number] 30mg Take 30 mg [facility] CR 30 mg 5-24 by mouth ity of TR12 00:00: every 12 [place] 00 (twelve) Medical hours. Branch calcium 2018-11 Yes TAKE 1 [facility] acetate 667 0-23 CAPSULE BY it y of mg capsule 00:00: [facility] Medical TIMES [place] DAILY WITH MEAL.ALSO TAKE 1 CAPSULE BY MOUTH TWICE DAILY WITH SNACK calcium 2018-11 Yes TAKE 1 [facility] acetate 667 0-23 CAPSULE BY it y of mg capsule 00:00: [facility] Medical TIMES [place] DAILY WITH MEAL.ALSO TAKE 1 CAPSULE BY MOUTH TWICE DAILY WITH SNACK calcium 2018-11 Yes TAKE 1 [facility] acetate 667 0-23 CAPSULE BY it y of mg capsule 00:00: [place] [facility] TIMES [place] DAILY WITH MEAL.ALSO TAKE 1 CAPSULE BY MOUTH TWICE DAILY WITH SNACK calcium 2018-11 Yes TAKE 1 [facility] acetate 667 0-23 CAPSULE BY it y of mg capsule 00:00: [facility] TIMES [place] DAILY WITH MEAL.ALSO TAKE 1 CAPSULE BY MOUTH TWICE DAILY WITH SNACK calcium 2018-11 Yes TAKE 1 [facility] acetate 667 0-23 CAPSULE BY it y of mg capsule 00:00: [facility] TIMES [place] DAILY WITH MEAL.ALSO TAKE 1 CAPSULE BY MOUTH TWICE DAILY WITH SNACK calcium 2018-11 Yes TAKE 1 [facility] acetate 667 0-23 CAPSULE BY it y of mg capsule 00:00: [facility] TIMES [place] DAILY WITH MEAL.ALSO TAKE 1 CAPSULE BY MOUTH TWICE DAILY WITH SNACK calcium 2018-11 Yes TAKE 1 [facility] acetate 667 0-23 CAPSULE BY it y of mg capsule 00:00: [facility] TIMES [place] DAILY WITH MEAL.ALSO TAKE 1 CAPSULE BY MOUTH TWICE DAILY WITH SNACK calcium 2018-11 Yes TAKE 1 [facility] acetate 667 0-23 CAPSULE BY it y of mg capsule 00:00: [facility] TIMES [place] DAILY WITH MEAL.ALSO TAKE 1 CAPSULE BY MOUTH TWICE DAILY WITH SNACK calcium 2018-11 Yes TAKE 1 [facility] acetate 667 0-23 CAPSULE BY it y of mg capsule 00:00: [facility] TIMES [place] DAILY WITH MEAL.ALSO TAKE 1 CAPSULE BY MOUTH TWICE DAILY WITH SNACK calcium 2018-11 Yes TAKE 1 [facility] acetate 667 0-23 CAPSULE BY it y of mg capsule 00:00: [facility] TIMES [place] DAILY WITH MEAL.ALSO TAKE 1 CAPSULE BY MOUTH TWICE DAILY WITH SNACK calcium 2018-11 Yes TAKE 1 [facility] acetate 667 0-23 CAPSULE BY it y of mg capsule 00:00: [address] TIMES [place] DAILY WITH MEAL.ALSO TAKE 1 CAPSULE BY MOUTH TWICE DAILY WITH SNACK calcium 2018-11 Yes TAKE 1 [facility] acetate 667 0-23 CAPSULE BY it y of mg capsule 00:00: [place] [facility] TIMES [place] DAILY WITH MEAL.ALSO TAKE 1 CAPSULE BY MOUTH TWICE DAILY WITH SNACK calcium 2018-11 Yes TAKE 1 [facility] acetate 667 0-23 CAPSULE BY it y of mg capsule 00:00: [place] [facility] TIMES [place] DAILY WITH MEAL.ALSO TAKE 1 CAPSULE BY MOUTH TWICE DAILY WITH SNACK calcium 2018-11 Yes TAKE 1 [facility] acetate 667 0-23 CAPSULE BY it y of mg capsule 00:00: [place] [facility] TIMES [place] DAILY WITH MEAL.ALSO TAKE 1 CAPSULE BY MOUTH TWICE DAILY WITH SNACK calcium 2018-11 Yes TAKE 1 [facility] acetate 667 0-23 CAPSULE BY it y of mg capsule 00:00: [facility] TIMES [place] DAILY WITH MEAL.ALSO TAKE 1 CAPSULE BY MOUTH TWICE DAILY WITH SNACK calcium 2018-11 Yes TAKE 1 [facility] acetate 667 0-23 CAPSULE BY it y of mg capsule 00:00: [facility] TIMES [place] DAILY WITH MEAL.ALSO TAKE 1 CAPSULE BY MOUTH TWICE DAILY WITH SNACK calcium 2018-11 Yes TAKE 1 [facility] acetate 667 0-23 CAPSULE BY it y of mg capsule 00:00: [facility] TIMES [place] DAILY WITH MEAL.ALSO TAKE 1 CAPSULE BY MOUTH TWICE DAILY WITH SNACK calcium 2018-11 Yes TAKE 1 [facility] acetate 667 0-23 CAPSULE BY it y of mg capsule 00:00: [facility] TIMES [place] DAILY WITH MEAL.ALSO TAKE 1 CAPSULE BY MOUTH TWICE DAILY WITH SNACK NIFEdipine Yes 90mg Take 90 mg U nivers XL 90 mg 24 3-25 by mouth ity of hr tablet 00:00: daily. [place] [facility] NIFEdipine 2018- Yes 90mg Take 90 mg U nivers XL 90 mg 24 3-25 by mouth ity of hr tablet 00:00: daily. [place] [facility] NIFEdipine 2019-0 Yes 90mg Take 90 mg U nivers XL 90 mg 24 3-25 by mouth ity of hr tablet 00:00: daily. [address] NIFEdipine 2019-0 Yes 90mg Take 90 mg U nivers XL 90 mg 24 3-25 by mouth ity of hr tablet 00:00: daily. [place] [facility] NIFEdipine 2018-0 Yes 90mg Take 90 mg U nivers XL 90 mg 24 3-25 by mouth ity of hr tablet 00:00: daily. [place] [facility] NIFEdipine 2019-0 Yes 90mg Take 90 mg U nivers XL 90 mg 24 3-25 by mouth ity of hr tablet 00:00: daily. [place] [facility] NIFEdipine 2019-0 Yes 90mg Take 90 mg U nivers XL 90 mg 24 3-25 by mouth ity of hr tablet 00:00: daily. [place] [facility] NIFEdipine 2019-0 Yes 90mg Take 90 mg U nivers XL 90 mg 24 3-25 by mouth ity of hr tablet 00:00: daily. [place] [facility] NIFEdipine 2019-0 Yes 90mg Take 90 mg U nivers XL 90 mg 24 3-25 by mouth ity of hr tablet 00:00: daily. [place] [facility] NIFEdipine 2019-0 Yes 90mg Take 90 mg U nivers XL 90 mg 24 3-25 by mouth ity of hr tablet 00:00: daily. [place] [facility] NIFEdipine 2019-0 Yes 90mg Take 90 mg U nivers XL 90 mg 24 3-25 by mouth ity of hr tablet 00:00: daily. [place] [facility] NIFEdipine 2019-0 Yes 90mg Take 90 mg U nivers XL 90 mg 24 3-25 by mouth ity of hr tablet 00:00: daily. [place] [facility] NIFEdipine 2019-0 Yes 90mg Take 90 mg U nivers XL 90 mg 24 3-25 by mouth ity of hr tablet 00:00: daily. [place] [facility] NIFEdipine 2019-0 Yes 90mg Take 90 mg U nivers XL 90 mg 24 3-25 by mouth ity of hr tablet 00:00: daily. [place] [facility] NIFEdipine 2019-0 Yes 90mg Take 90 mg U nivers XL 90 mg 24 3-25 by mouth ity of hr tablet 00:00: daily. [place] [facility] NIFEdipine 2019-0 Yes 90mg Take 90 mg U nivers XL 90 mg 24 3-25 by mouth ity of hr tablet 00:00: daily. [place] [facility] NIFEdipine 2019-0 Yes 90mg Take 90 mg U nivers XL 90 mg 24 3-25 by mouth ity of hr tablet 00:00: daily. [place] [facility] NIFEdipine 2019-0 Yes 90mg Take 90 mg U nivers XL 90 mg 24 3-25 by mouth ity of hr tablet 00:00: daily. [address] Ancef + 2018-0 Yes Notes: [facility] sterile 07-12 (Same As: l water 20 mL 17:00: Ancef, [place] 00 Kefzol) MEDICATION WASTE Product Size: 1000 mg Product Wasted: ___ mg Vancomycin 2018-0 Yes 2001 mg: Me moria 07-12 infuse l 17:00: over 2.5 [place] 00 hours For adult patients only: Round [...] moria 07-12 infuse l 17:00: over 2.5 [place] 00 hours For adult patients only: Round to nearest 250 mg per Medical Staff approval MEDICATION WASTE Product Size: 1000 mg Product Wasted: ___ mg meloxicam 2018-0 Yes 15 mg = 1 [facility] 15 mg oral -06 tab, PO, l tablet 16:39: Daily, # [place] 00 30 tab, 0 Refill(s) meloxicam 2018-0 Yes 15 mg = 1 [facility] 15 mg oral 9-06 tab, PO, l tablet 16:39: Daily, # [place] 00 30 tab, 0 Refill(s) meloxicam 2018-0 Yes 15 mg = 1 [facility] 15 mg oral 9-06 tab, PO, l tablet 16:39: Daily, # [place] 00 30 tab, 0 Refill(s) Acetaminoph 2017- Yes 1 tab, PO, [facility] en 325 MG / 9 TID, PRN l Hydrocodone 16:38: Pain, # 60 [place] Bitartrate 00 tab, 0 10 MG Oral Refill(s) Tablet [[place] 10/325] Trazodone Yes 100 mg = 1 Me [facility] Hydrochlori 06 tab, PO, l de 100 MG 16:38: Bedtime, # [place] Oral Tablet 00 30 tab, 0 Refill(s) Acetaminoph Yes 1 tab, PO, [facility] en 325 MG / 07-12 TID, PRN l Hydrocodone 16:38: Pain, # 60 [place] Bitartrate 00 tab, 0 10 MG Oral Refill(s) Tablet [[place] 10] Trazodone Yes 100 mg = 1 [facility] Hydrochlori 07-12 tab, PO, l de 100 MG 16:38: Bedtime, # [place] Oral Tablet 00 30 tab, 0 Refill(s) Acetaminoph Yes 1 tab, PO, [facility] en 325 MG / 07-12 TID, PRN l Hydrocodone 16:38: Pain, # 60 [place] Bitartrate 00 tab, 0 10 MG Oral Refill(s) Tablet [[place] 10325] Trazodone Yes 100 mg = 1 Me [facility] Hydrochlori 07-12 tab, PO, l de 100 MG 16:38: Bedtime, # [place] Oral Tablet 00 30 tab, 0 Refill(s) metoprolol Yes 50 mg = 1 [facility] [place] tartrate 50 -06 tab, PO, l mg oral 16:37: BID, # 180 [place] tablet 00 tab, 0 Refill(s) lisinopril 0 Yes 30 mg = 1 [facility] [place] 30 mg oral -06 tab, PO, l tablet 16:37: Daily, # [place] 00 30 tab, 0 Refill(s) metoprolol 0 Yes 50 mg = 1 [facility] [place] tartrate 50 -06 tab, PO, l mg oral 16:37: BID, # 180 [place] tablet 00 tab, 0 Refill(s) lisinopril 0 Yes 30 mg = 1 [facility] [place] 30 mg oral 9-06 tab, PO, l tablet 16:37: Daily, # [place] 00 30 tab, 0 Refill(s) metoprolol Yes 50 mg = 1 [facility] [place] tartrate 50 9-06 tab, PO, l mg oral 16:37: BID, # 180 [place] tablet 00 tab, 0 Refill(s) lisinopril Yes 30 mg = 1 [facility] [place] 30 mg oral 9-06 tab, PO, l tablet 16:37: Daily, # [place] 00 30 tab, 0 Refill(s) ACETAMINOPH Yes History of 1{tbl} Take 1 [facility] EN-CODEINE 4-05 fusion of tablet by [employer] #4 00:00: cervical mouth 2 (TYLENOL/CO 00 spine times DEINE #4) daily as 300-60 mg needed for per tablet Pain. ACETAMINOPH Yes History of 1{tbl} Take 1 [facility] EN-CODEINE 4-05 fusion of tablet by [employer] #4 00:00: cervical mouth 2 (TYLENOL/CO 00 spine times DEINE #4) daily as 300-60 mg needed for per tablet Pain. ACETAMINOPH Yes History of 1{tbl} Take 1 [facility] EN-CODEINE 4-05 fusion of tablet by [employer] #4 00:00: cervical mouth 2 (TYLENOL/CO 00 spine times DEINE #4) daily as 300-60 mg needed for per tablet Pain. ACETAMINOPH Yes History of 1{tbl} Take 1 My [facility] EN-CODEINE 4-05 fusion of tablet by [employer] #4 00:00: cervical mouth 2 (TYLENOL/CO 00 spine times DEINE #4) daily as 300-60 mg needed for per tablet Pain. ACETAMINOPH Yes History of 1{tbl} Take 1 My [facility] EN-CODEINE 4-05 fusion of tablet by [employer] #4 00:00: cervical mouth 2 (TYLENOL/CO 00 spine times DEINE #4) daily as 300-60 mg needed for per tablet Pain. INSULIN Yes Medication 1{syrin Use to My [facility] SYRINGE 3-26 refill ge} inject Health 0.5mL [...] mg/5 needed for mL syrup Cough. codeine-gua 0 Yes Cough 5mL Take 5 mL [place] iFENesin 3-21 by mouth 3 Healt h (CHERATUSSI 00:00: times N AC) 00 daily as 10-100 mg/5 needed for mL syrup Cough. codeine-gua Yes Cough 5mL Take 5 mL [place] iFENesin 3-21 by mouth 3 Healt h (CHERATUSSI 00:00: times N AC) 00 daily as 10-100 mg/5 needed for mL syrup Cough. codeine-gua 2015-0 Yes Cough 5mL Take 5 mL [place] iFENesin 3-21 by mouth 3 Healt h (CHERATUSSI 00:00: times N AC) 00 daily as 10-100 mg/5 needed for mL syrup Cough. codeine-gua 0 Yes Cough 5mL Take 5 mL [place] iFENesin 3-21 by mouth 3 Healt h (CHERATUSSI 00:00: times N AC) 00 daily as 10-100 mg/5 needed for mL syrup Cough. fluticasone Yes Allergic 1{spray QD Use 1 [place] (FLONASE) 3-03 rhinitis, } [place] [facility] 00:00: unspecified each [...] Use 1 [place] (FLONASE) 3-03 rhinitis, } [place] [facility] 00:00: unspecified each [...] Use 1 [place] (FLONASE) 3-03 rhinitis, } [place] [facility] 00:00: unspecified each [...] Use 1 [place] (FLONASE) 3-03 rhinitis, } [place] [facility] 00:00: unspecified each mcg/actuati 00 allergic nostril on nasal rhinitis daily. spray type loratadine Yes Allergic 10mg QD Take 1 H [facility] (CLARITIN) 01-06 rhinitis, tablet by Health 10 mg 00:00: unspecified mouth tablet 00 allergic daily. 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 loratadine Yes Allergic 10mg QD Take 1 [facility] (CLARITIN) 01-06 rhinitis, tablet by Health 10 mg 00:00: unspecified mouth tablet 00 allergic daily. rhinitis type atorvastati Yes Type 2 20mg Take 1 Escudero rris n (LIPITOR) 303 diabetes tablet by Health 20 mg 00:00: mellitus, mouth at tablet 00 uncontrolle bedtime d nightly. 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 extremity lisinopril- Yes 1{tbl} QD Take 1 Escudero rris hydrochloro 1-21 tablet by [facility] thiazide 00:00: mouth (ZESTORETIC 00 daily. ) 20-25 mg per tablet ketoconazol Yes Toenail QD Apply to [facility] e (NIZORAL) 1-21 fungus affected He alth 2 % topical 00:00: area cream 00 daily. albuterol Yes Cough 2{puff} Inhale 2 [facility] (VENTOLIN 1-21 Puffs by [facility] HFA,PROVENT 00:00: mouth 4 [place] 00 [...] 1 Escudero rris hydrochloro 1-21 tablet by [facility] thiazide 00:00: mouth (ZESTORETIC 00 daily. ) 20-25 mg per tablet ketoconazol Yes Toenail QD Apply to [facility] e (NIZORAL) 1-21 fungus affected He alth 2 % topical 00:00: area cream 00 daily. albuterol Yes Cough 2{puff} Inhale 2 [facility] (VENTOLIN 1-21 Puffs by [facility] HFA,PROVENT 00:00: mouth 4 [place] 00 times HFA,PROAIR daily as HFA) 90 needed for mcg/actuati Wheezing. on inhaler zolpidem Yes Insomnia, 5mg Take 1 Escudero rris (AMBIEN) 5 1-21 unspecified tablet by [facility] mg Tab 00:00: mouth 00 nightly [...] 1 Escudero rris hydrochloro 1-21 tablet by [facility] thiazide 00:00: mouth (ZESTORETIC 00 daily. ) 20-25 mg per tablet ketoconazol Yes Toenail QD Apply to [facility] e (NIZORAL) - fungus affected He alth 2 % topical 00:00: area cream 00 daily. albuterol Yes Cough 2{puff} Inhale 2 [facility] (VENTOLIN 1-21 Puffs by Health HFA,PROVENT 00:00: mouth 4 [place] 00 times HFA,PROAIR daily as HFA) 90 needed for mcg/actuati Wheezing. on inhaler zolpidem Yes Insomnia, 5mg Take 1 [facility] rris (AMBIEN) 5 1-21 unspecified tablet by [facility] mg Tab 00:00: mouth 00 nightly at bedtime as needed for Insomnia. omeprazole Yes Status post 40mg QD Take 2 [facility] (PRILOSEC) 1-21 below knee capsules Health 20 mg 00:00: amputation by mouth delayed 00 of right daily. release lower capsule extremity FLUoxetine Yes Status post 20mg QD Take 1 [facility] (PROZAC) 20 1-21 below knee capsule by [facility] mg capsule 00:00: amputation mouth 00 of right daily. lower extremity zolpidem Yes Insomnia, 5mg Take 1 [facility] r[facility] (AMBIEN) 5 1-21 unspecified tablet by Health mg Tab 00:00: mouth 00 nightly at bedtime as needed for Insomnia. omeprazole 2016-0 Yes Status post 40mg QD Take 2 [facility] (PRILOSEC) 1-21 below knee capsules Health 20 mg 00:00: amputation by mouth delayed 00 of right daily. release lower capsule extremity FLUoxetine 2016-0 Yes Status post 20mg QD Take 1 [facility] (PROZAC) 20 1-21 below knee capsule by [facility] mg capsule 00:00: amputation mouth 00 of right daily. 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 (NOVOLIN R, 00:00: uncontrolle under the HUMULIN [...] [facility]se (NEURONTIN) 1-21 below knee tablet by [facility] 600 mg 00:00: amputation mouth 3 tablet 00 of right times lower daily. extremity lisinopril- Yes 1{tbl} QD Take 1 Escudero rris hydrochloro 1-21 tablet by [facility] thiazide 00:00: mouth (ZESTORETIC 00 daily. ) 20-25 mg per tablet ketoconazol 2015- Yes Toenail QD Apply to [facility] e (NIZORAL) 1-21 fungus affected He alth 2 % topical 00:00: area cream 00 daily. albuterol Yes Cough 2{puff} Inhale 2 [facility] (VENTOLIN 1-21 Puffs [address] [facility] HFA,PROVENT 00:00: mouth 4 [place] 00 times HFA,PROAIR daily as HFA) 90 needed for mcg/actuati Wheezing. on inhaler insulin 2015- Yes Type 2 10U Inject [...] [facility]se (NEURONTIN) 1-21 below knee tablet by [facility] 600 mg 00:00: amputation mouth 3 tablet 00 of right times lower daily. extremity lisinopril- Yes 1{tbl} QD Take 1 Escudero rris hydrochloro 1-21 tablet by [facility] thiazide 00:00: mouth (ZESTORETIC 00 daily. ) 20-25 mg per tablet ketoconazol Yes Toenail QD Apply to [facility] e (NIZORAL) 1-21 fungus affected He alth 2 % topical 00:00: area cream 00 daily. albuterol Yes Cough 2{puff} Inhale 2 [facility] (VENTOLIN 1-21 Puffs [address] [facility] HFA,PROVENT 00:00: mouth 4 [place] 00 [...] Completed Unive rsity of PFIZER VACCINE 00:00:00 [facility] SARS-COV-2 COVID-19 2021-01-23 Completed Unive rsity of PFIZER VACCINE 00:00:00 [facility] SARS-COV-2 COVID-19 2021-01-23 Completed Unive rsity of PFIZER VACCINE 00:00:00 [facility] SARS-COV-2 COVID-19 2021-01-23 Completed Unive rsity of PFIZER VACCINE 00:00:00 [facility] SARS-COV-2 COVID-19 2021-01-23 Completed Unive rsity of PFIZER VACCINE 00:00:00 [facility] SARS-COV-2 COVID-19 2021-01-23 Completed Unive rsity of PFIZER VACCINE 00:00:00 [facility] SARS-COV-2 COVID-19 2021-01-23 Completed Unive rsity of PFIZER VACCINE 00:00:00 [facility] SARS-COV-2 COVID-19 2021-01-23 Completed Unive rsity of PFIZER VACCINE 00:00:00 [facility] SARS-COV-2 COVID-19 2021-01-23 Completed Unive rsity of PFIZER VACCINE 00:00:00 [facility] SARS-COV-2 COVID-19 2021-01-23 Completed Unive rsity of PFIZER VACCINE 00:00:00 [facility] SARS-COV-2 COVID-19 2021-01-23 Completed Unive rsity of PFIZER VACCINE 00:00:00 [facility] SARS-COV-2 COVID-19 2021-01-23 Completed Unive rsity of PFIZER VACCINE 00:00:00 [facility] SARS-COV-2 COVID-19 2021-01-23 Completed Unive rsity of PFIZER VACCINE 00:00:00 [facility] SARS-COV-2 COVID-19 2021-01-23 Completed Unive rsity of PFIZER VACCINE 00:00:00 [facility] SARS-COV-2 COVID-19 2021-01-23 Completed Unive rsity of PFIZER VACCINE 00:00:00 [facility] SARS-COV-2 COVID-19 2021-01-23 Completed Unive rsity of PFIZER VACCINE 00:00:00 [facility] SARS-COV-2 COVID-19 2021-01-23 Completed Unive rsity of PFIZER VACCINE 00:00:00 [facility] SARS-COV-2 COVID-19 2021-01-23 Completed Unive rsity of PFIZER VACCINE 00:00:00 [facility] Pfizer COVID-19 Pfizer COVID-19 2021-01-23 Completed Vaccine Vaccine 00:00:00 Pfizer COVID-19 Pfizer COVID-19 2021-01-02 Completed Vaccine Vaccine 00:00:00 SARS-COV-2 COVID-19 2021-01-02 Completed Unive rsity of PFIZER VACCINE 00:00:00 [facility] SARS-COV-2 COVID-19 2021-01-02 Completed Unive rsity of PFIZER VACCINE 00:00:00 [facility] SARS-COV-2 COVID-19 2021-01-02 Completed Unive rsity of PFIZER VACCINE 00:00:00 [facility] SARS-COV-2 COVID-19 2021-01-02 Completed Unive rsity of PFIZER VACCINE 00:00:00 [facility] SARS-COV-2 COVID-19 2021-01-02 Completed Unive rsity of PFIZER VACCINE 00:00:00 [facility] SARS-COV-2 COVID-19 2021-01-02 Completed Unive rsity of PFIZER VACCINE 00:00:00 [facility] SARS-COV-2 COVID-19 2021-01-02 Completed Unive rsity of PFIZER VACCINE 00:00:00 [facility] SARS-COV-2 COVID-19 2021-01-02 Completed Unive rsity of PFIZER VACCINE 00:00:00 [facility] SARS-COV-2 COVID-19 2021-01-02 Completed Unive rsity of PFIZER VACCINE 00:00:00 [facility] SARS-COV-2 COVID-19 2021-01-02 Completed Unive rsity of PFIZER VACCINE 00:00:00 [facility] SARS-COV-2 COVID-19 2021-01-02 Completed Unive rsity of PFIZER VACCINE 00:00:00 [facility] SARS-COV-2 COVID-19 2021-01-02 Completed Unive rsity of PFIZER VACCINE 00:00:00 [facility] SARS-COV-2 COVID-19 2021-01-02 Completed Unive rsity of PFIZER VACCINE 00:00:00 [facility] SARS-COV-2 COVID-19 2021-01-02 Completed Unive rsity of PFIZER VACCINE 00:00:00 [facility] SARS-COV-2 COVID-19 2021-01-02 Completed Unive rsity of PFIZER VACCINE 00:00:00 [facility] SARS-COV-2 COVID-19 2021-01-02 Completed Unive rsity of PFIZER VACCINE 00:00:00 [facility] SARS-COV-2 COVID-19 2021-01-02 Completed Unive rsity of PFIZER VACCINE 00:00:00 [facility] SARS-COV-2 COVID-19 2021-01-02 Completed Unive rsity of PFIZER VACCINE 00:00:00 [facility] Influenza Virus 2018-09-12 Completed Universit y of Vaccine Quad .5 mL 00:00:00 [facility] Influenza Virus 2018-09-12 Completed [facility]it y of Vaccine Quad .5 mL 00:00:00 [facility] Influenza Virus 2018-09-12 Completed [facility]it y of Vaccine Quad .5 mL 00:00:00 [facility] Influenza Virus 2018-09-12 Completed Universit y of Vaccine Quad .5 mL 00:00:00 [facility] 6+ MO Branch Influenza Virus 2018-09-12 Completed [facility]it y of Vaccine Quad .5 mL 00:00:00 [facility] 6[facility] MO Branch Influenza Virus 2018-09-12 Completed [facility]it y of Vaccine Quad .5 mL 00:00:00 [facility] 6[facility] MO [facility] Influenza Virus 2018-09-12 Completed [facility]it y of Vaccine Quad .5 mL 00:00:00 [facility] Influenza Virus 2018-09-12 Completed [facility]it y of Vaccine Quad .5 mL 00:00:00 [facility] Influenza Virus 2018-09-12 Completed [facility]it y of Vaccine Quad .5 mL 00:00:00 [facility] Influenza Virus 2018-09-12 Completed [facility]it y of Vaccine Quad .5 mL 00:00:00 [facility] MO [facility] Influenza Virus 2018-09-12 Completed [facility]it y of Vaccine Quad .5 mL 00:00:00 [facility] MO [facility] Influenza Virus 2018-09-12 Completed [facility]it y of Vaccine Quad .5 mL 00:00:00 [facility] 6[facility] MO [facility] Influenza Virus 2018-09-12 Completed [facility]it y of Vaccine Quad .5 mL 00:00:00 [facility] MO [facility] Influenza Virus 2018-09-12 Completed [facility]it y of Vaccine Quad .5 mL 00:00:00 [facility] Influenza Virus 2018-09-12 Completed [facility]it y of Vaccine Quad .5 mL 00:00:00 [facility] Influenza Virus 2018-09-12 Completed [facility]it y of Vaccine Quad .5 mL 00:00:00 [facility] Influenza Virus 2018-09-12 Completed [facility]it y of Vaccine Quad .5 mL 00:00:00 [facility] Influenza Virus 2018-09-12 Completed [facility]it y of Vaccine Quad .5 mL 00:00:00 [facility] Pneumococcal 2018-01-07 Completed University o f Polysaccharide, 00:00:00 [facility] PPSV23 (PNEUMOVAX) Branch Influenza Virus 2018-01-07 Completed Universit y of Vaccine Quad IM 3+ 00:00:00 [facility] Pneumococcal 2018-01-07 Completed University o f Polysaccharide, 00:00:00 [place] [facility] PPSV23 (PNEUMOVAX) Branch Influenza Virus 2018-01-07 Completed Universit y of Vaccine Quad IM 3+ 00:00:00 [facility] Pneumococcal 2018-01-07 Completed University o f Polysaccharide, 00:00:00 [place] [facility] PPSV23 (PNEUMOVAX) Branch Influenza Virus 2018-01-07 Completed Universit y of Vaccine Quad IM 3+ 00:00:00 [facility] Pneumococcal 2018-01-07 Completed University o f Polysaccharide, 00:00:00 [place] [facility] PPSV23 (PNEUMOVAX) Branch Influenza Virus 2018-01-07 Completed Universit y of Vaccine Quad IM 3+ 00:00:00 [facility] Pneumococcal 2018-01-07 Completed University o f Polysaccharide, 00:00:00 [place] [facility] PPSV23 (PNEUMOVAX) Branch Influenza Virus 2018-01-07 Completed Universit y of Vaccine Quad IM 3+ 00:00:00 [facility] Pneumococcal 2018-01-07 Completed University o f Polysaccharide, 00:00:00 [place] [facility] PPSV23 (PNEUMOVAX) Branch Influenza Virus 2018-01-07 Completed Universit y of Vaccine Quad IM 3+ 00:00:00 [facility] Pneumococcal 2018-01-07 Completed University o f Polysaccharide, 00:00:00 [place] [facility] PPSV23 (PNEUMOVAX) Branch Influenza Virus 2018-01-07 Completed Universit y of Vaccine Quad IM 3+ 00:00:00 [facility] Pneumococcal 2018-01-07 Completed University o f Polysaccharide, 00:00:00 [place] [facility] PPSV23 (PNEUMOVAX) Branch Influenza Virus 2018-01-07 Completed Universit y of Vaccine Quad IM 3+ 00:00:00 [facility] Pneumococcal 2018-01-07 Completed University o f Polysaccharide, 00:00:00 [place] [facility] PPSV23 (PNEUMOVAX) Branch Influenza Virus 2018-01-07 Completed Universit y of Vaccine Quad IM 3+ 00:00:00 [facility] Pneumococcal 2018-01-07 Completed University o f Polysaccharide, 00:00:00 [place] [facility] PPSV23 (PNEUMOVAX) Branch Influenza Virus 2018-01-07 Completed Universit y of Vaccine Quad IM 3+ 00:00:00 [facility] Pneumococcal 2018-01-07 Completed University o f Polysaccharide, 00:00:00 [facility] PPSV23 (PNEUMOVAX) Branch Influenza Virus 2018-01-07 Completed Universit y of Vaccine Quad IM 3+ 00:00:00 [facility] Pneumococcal 2018-01-07 Completed University o f Polysaccharide, 00:00:00 [place] [facility] PPSV23 (PNEUMOVAX) Branch Influenza Virus 2018-01-07 Completed Universit y of Vaccine Quad IM 3+ 00:00:00 [facility] Pneumococcal 2018-01-07 Completed University o f Polysaccharide, 00:00:00 [place] [facility] PPSV23 (PNEUMOVAX) Branch Influenza Virus 2018-01-07 Completed Universit y of Vaccine Quad IM 3+ 00:00:00 [facility] Pneumococcal 2018-01-07 Completed University o f Polysaccharide, 00:00:00 [place] [facility] PPSV23 (PNEUMOVAX) Branch Influenza Virus 2018-01-07 Completed Universit y of Vaccine Quad IM 3+ 00:00:00 [facility] Pneumococcal 2018-01-07 Completed University o f Polysaccharide, 00:00:00 [place] [facility] PPSV23 (PNEUMOVAX) Branch Influenza Virus 2018-01-07 Completed Universit y of Vaccine Quad IM 3+ 00:00:00 [facility] Pneumococcal 2018-01-07 Completed University o f Polysaccharide, 00:00:00 [place] [facility] PPSV23 (PNEUMOVAX) Branch Influenza Virus 2018-01-07 Completed Universit y of Vaccine Quad IM 3+ 00:00:00 [facility] Pneumococcal 2018-01-07 Completed University o f Polysaccharide, 00:00:00 [place] [facility] PPSV23 (PNEUMOVAX) Branch Influenza Virus 2018-01-07 Completed Universit y of Vaccine Quad IM 3+ 00:00:00 [facility] Pneumococcal 2018-01-07 Completed University o f Polysaccharide, 00:00:00 [facility] PPSV23 (PNEUMOVAX) Branch Influenza Virus 2018-01-07 Completed Universit y of Vaccine Quad IM 3+ 00:00:00 [facility] Influenza Vaccine 2013-10-01 Completed [facility] 00:00:00 Influenza Vaccine 2013-10-01 Completed [facility] 00:00:00 Influenza Vaccine 2013-10-01 Completed [facility] 00:00:00 Influenza Vaccine 2013-10-01 Completed [facility] 00:00:00 Influenza Vaccine 2013-10-01 Completed [facility] 00:00:00 Tropicamide 0.5% 2013-06-28 Completed [facility] Eye-Amanda 15ml 00:00:00 Tropicamide 0.5% 2013-06-28 Completed [facility] Eye-Amanda 15ml 00:00:00 Tropicamide 0.5% 2013-06-28 Completed [...] 15ml 00:00:00 PPV 23 Pneumococcal 2013-03-29 Completed [facility] Polysaccaride 00:00:00 PPV 23 Pneumococcal 2013-03-29 Completed [facility] Polysacc[facility] 00:00:00 PPV 23 Pneumococcal 2013-03-29 Completed [facility] Polysaccaride 00:00:00 PPV 23 Pneumococcal 2013-03-29 Completed [facility] Polysaccaride 00:00:00 PPV 23 Pneumococcal 2013-03-29 Completed [facility] Polysaccaride 00:00:00 Vital Signs Vital Name Observation Time Observation Value Comments Source Systolic blood 2022-09-21 172 mm[Hg] [facility] pressure 16:16:00 [facility] Diastolic blood 2022-09-21 89 mm[Hg] [place] o f pressure 16:16:00 [facility] Heart rate 2022-09-21 80 /min University 16:16:00 [facility] Oxygen saturation 2022-09-21 99 /min [facility] Arterial blood 16:16:00 [facility] by Pulse oximetry [place] Body temperature 2022-09-21 36.39 Jocelyne University 16:15:00 [facility] Respiratory rate 2022-09-21 16 /min [facility] 16:15:00 [facility] Body height 2022-09-21 177.8 cm [facility] 16:15:00 [facility] Body weight 2022-09-21 98.612 kg University 16:15:00 [facility] BMI 2022-09-21 31.19 kg/m2 University 16:15:00 [facility] Systolic blood 2022-06-13 124 mm[Hg] dizzy,light University of pressure 15:36:00 headed [facility] Diastolic blood 2022-06-13 71 mm[Hg] dizzy,light University o f pressure 15:36:00 headed [facility] Heart rate 2022-06-13 109 /min University 15:36:00 [facility] Oxygen saturation 2022-06-13 98 /min [facility] in Arterial blood 15:36:00 [facility] by Pulse oximetry [place] Body temperature 2022-06-13 36.28 Jocelyne [facility] 15:07:00 [facility] Respiratory rate 2022-06-13 17 /min [facility] 15:07:00 [facility] Body height 2022-06-13 177.8 cm [facility] 15:07:00 [facility] Body weight 2022-06-13 98.068 kg [facility] 15:07:00 [facility] BMI 2022-06-13 31.02 kg/m2 University 15:07:00 [facility] Systolic blood 2022-05-14 175 mm[Hg] [facility] pressure 12:20:06 [facility] Diastolic blood 2022-05-14 119 mm[Hg] [facility] pressure 12:20:06 [facility] Heart rate 2022-05-14 90 /min [facility] 12:20:06 [facility] Body temperature 2022-05-14 36.56 Jocelyne [facility] 12:20:06 [facility] Respiratory rate 2022-05-14 18 /min [facility] 12:20:06 Hospital Oxygen saturation 2022-05-14 100 /min [facility] in Arterial blood 12:20:06 [facility] by Pulse oximetry Body weight 2022-05-14 96.798 kg [facility] 09:58:53 Hospital BMI 2022-05-14 30.62 kg/m2 [facility] 09:58:53 Hospital Body height 2022-05-13 177.8 cm [facility] 02:00:00 Hospital Respitory Rate 2018-07-12 Gerard willingham 17:23:00 Heart Rate 2018-07-12 Gerard Johnson n 17:23:00 Temperature Oral 2018-07-12 98 F [facility] neeta (F) 17:23:00 Systolic (mm Hg) 2018-07-12 [facility] Refugio rmann 17:23:00 Diastolic (mm Hg) 2018-07-12 [facility] Nini ermann 17:23:00 BMI Calculated 2018-07-12 Gerard willingham 17:01:00 Weight 2018-07-12 Gerard Johnson n 17:01:00 Height 2018-07-12 180.34 cm Gerard Johnosn n 17:01:00 Procedures Procedure Date / Time Performing Clinician Source Performed AUTHORIZATION FOR 2022-06-30 05:01:00 Doctor Unassigned, No Univ ersity [facility] RELEASE OF [facility] Name Medical Branch AUTHORIZATION FOR 2022-06-27 05:01:00 [facility] MISC - NON-LEGAL REC 2022-06-14 05:01:00 Doctor Unassigned, No U niversity [facility] COMPREHENSIVE METABOLIC 2022-05-14 09:12:00 Otis [facility] PANEL ESTIMATED GFR 2022-05-14 09:12:00 Abbie Arboleda HC COMPLETE BLD COUNT 2022-05-14 09:12:00 Abbie Arboleda [facility] W/AUTO DIFF COVID-19 ANTI-SPIKE IGG 2022-05-14 09:00:00 [facility] ANTIBODY TITER Roe COVID-19 SEROLOGY 2022-05-14 09:00:00 [facility] PATIENT SURVEILLANCE Roe HEPATITIS B SURFACE 2022-05-13 21:36:00 [facility] Bharatkumar XR CHEST 1 VW PORTABLE 2022-05-13 19:07:00 Suri [facility] Vladimir ECG PRE/POST OP 2022-05-13 18:30:58 [facility] Vladimir POC GLUCOSE 2022-05-13 18:30:00 Abbie Arboleda EP PACEMAKER INSERTION 2022-05-13 17:54:49 Tavo Yusuf [facility] NEW OR REPLACEMENT [place] AN ELECTIVE 2022-05-13 16:28:00 [facility] SUPRAGLOTTIC AIRWAY POC GLUCOSE 2022-05-13 15:46:00 Abbie Arboleda spital TYPE AND SCREEN 2022-05-13 15:38:00 Tavo Yusuf Ho spital HEMODIALYSIS 2022-05-13 13:26:02 Remi Mcnulty Ho spital Bharatkumar POC GLUCOSE 2022-05-13 12:53:00 Abbie Arboleda Ho spital HC COMPLETE BLD COUNT 2022-05-13 09:53:00 Abbie Arboleda [facility] W/AUTO DIFF COMPREHENSIVE METABOLIC 2022-05-13 09:53:00 Shimon Arboledachita [facility] PANEL ESTIMATED GFR 2022-05-13 09:53:00 Abbie Arboleda spital POC GLUCOSE 2022-05-13 02:40:00 Abbie Arboleda Ho spital HEPATITIS B SURFACE 2022-04-15 12:53:00 [facility] ANTIGEN Center HEPATITIS B SURFACE 2022-04-15 12:53:00 [facility] ANTIBODY Center HEPATITIS B CORE 2022-04-15 12:53:00 [facility] ANTIBODY, TOTAL Center HEPATITIS C ANTIBODY 2022-04-15 12:53:00 [facility] HEPATITIS B SURFACE 2022-04-14 15:09:00 [facility] ANTIGEN Center HEPATITIS B SURFACE 2022-04-14 15:09:00 [facility] ANTIBODY Center [id number] 2020-10-26 00:00:00 JUNE [facility] [id number] 2020-10-20 00:00:00 [facility] [id number] 2020-10-20 00:00:00 [facility] [id number] 2020-10-20 00:00:00 [facility] [id number] 2020-10-20 00:00:00 [facility] [id number] 2020-10-20 00:00:00 [facility] [id number] 2020-10-20 00:00:00 [facility] Amputation [facility] Anterior spinal fusion 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 dialysis catheter using fluoroscopic guidance [facility] ORIF - Open reduction [facility] and internal fixation of fracture Tonsillectomy [facility] Plan of Care Planned Activity Planned Date Details Comments Source Future Scheduled 2022-10-22 Pneumococcal Vaccine: [facility] Test 16:31:42 Pediatrics (0 to 5 Years) and At-Risk Patients (6 to 64 Years) (1 - PCV) [code = Pneumococcal Vaccine: Pediatrics (0 to 5 Years) and At-Risk Patients (6 to 64 Years) (1 - PCV)] Future Scheduled 2022-10-22 DIABETES: RETINAL EYE [facility] Test 16:31:42 EXAM [code = DIABETES: RETINAL EYE EXAM] Future Scheduled 2022-10-22 DIABETIC FOOT EXAM [facility] Test 16:31:42 [code = DIABETIC FOOT EXAM] Future Scheduled 2022-10-22 URINE MICROALBUMIN [facility] Test 16:31:42 [code = URINE MICROALBUMIN] Future Scheduled 2022-10-22 Hepatitis C screening [facility] Test 16:31:42 (procedure) [code = [id number]] Future Scheduled 2022-10-22 SHINGLES VACCINES (1 Met [facility] Test 16:31:42 of 2) [code = SHINGLES VACCINES (1 of 2)] Future Scheduled 2022-10-22 COLONOSCOPY SCREENING [facility] Test 16:31:42 [code = COLONOSCOPY SCREENING] Future Scheduled 2022-10-22 COVID-19 VACCINE (3 - [facility] Test 16:31:42 Booster for Pfizer series) [code = COVID-19 VACCINE (3 - Booster for Pfizer series)] Future Scheduled 2022-10-22 INFLUENZA VACCINE [facility] Test 16:31:42 [code = INFLUENZA VACCINE] Future Scheduled 2022-08-11 HEPATITIS B VACCINES [facility] Test 16:48:32 (1 of 3 - 3-dose series) [code = HEPATITIS B VACCINES (1 of 3 - 3-dose series)] Future Scheduled 2022-08-11 Pneumococcal Vaccine: [facility] Test 16:48:32 Pediatrics (0 to 5 Years) and At-Risk Patients (6 to 64 Years) (1 - PCV) [code = Pneumococcal Vaccine: Pediatrics (0 to 5 Years) and At-Risk Patients (6 to 64 Years) (1 - PCV)] Future Scheduled 2022-08-11 DIABETES: RETINAL EYE [facility] Test 16:48:32 EXAM [code = DIABETES: RETINAL EYE EXAM] Future Scheduled 2022-08-11 [facility]ETIC [facility] Test 16:48:32 [code = DIABETIC FOOT EXAM] Future Scheduled 2022-08-11 [facility]INE [facility] Test 16:48:32 [code = URINE MICROALBUMIN] Future Scheduled 2022-08-11 Hepatitis C screening [facility] Test 16:48:32 (procedure) [code = 857733914] Future Scheduled 2022-08-11 SHINGLES VACCINES (1 [facility] Test 16:48:32 of 2) [code = SHINGLES VACCINES (1 of 2)] Future Scheduled 2022-08-11 COLONOSCOPY SCREENING [facility] Test 16:48:32 [code = COLONOSCOPY SCREENING] Future Scheduled 2022-08-11 COVID-19 VACCINE (3 - [facility] Test 16:48:32 Booster for Pfizer series) [code = COVID-19 VACCINE (3 - Booster for Pfizer series)] Future Scheduled 2022-08-11 INFLUENZA VACCINE [facility] Test 16:48:32 [code = INFLUENZA VACCINE] Future Scheduled 2022-08-11 HEPATITIS B VACCINES [facility] Test 16:48:32 (1 of 3 - 3-dose series) [code = HEPATITIS B VACCINES (1 of 3 - 3-dose series)] Future Scheduled 2022-08-11 Pneumococcal Vaccine: [facility] Test 16:48:32 Pediatrics (0 to 5 Years) and At-Risk Patients (6 to 64 Years) (1 - PCV) [code = Pneumococcal Vaccine: Pediatrics (0 to 5 Years) and At-Risk Patients (6 to 64 Years) (1 - PCV)] Future Scheduled 2022-08-11 DIABETES: RETINAL EYE [facility] Test 16:48:32 EXAM [code = DIABETES: RETINAL EYE EXAM] Future Scheduled 2022-08-11 DIABETIC FOOT EXAM [facility] Test 16:48:32 [code = DIABETIC FOOT EXAM] Future Scheduled 2022-08-11 [facility]INE [facility] Test 16:48:32 [code = URINE MICROALBUMIN] Future Scheduled 2022-08-11 Hepatitis C screening [facility] Test 16:48:32 (procedure) [code = 581706004] Future Scheduled 2022-08-11 SHINGLES VACCINES (1 [facility] Test 16:48:32 of 2) [code = SHINGLES VACCINES (1 of 2)] Future Scheduled 2022-08-11 COLONOSCOPY SCREENING [facility] Test 16:48:32 [code = COLONOSCOPY SCREENING] Future Scheduled 2022-08-11 COVID-19 VACCINE (3 - [facility] Test 16:48:32 Booster for Pfizer series) [code = COVID-19 VACCINE (3 - Booster for Pfizer series)] Future Scheduled 2022-08-11 INFLUENZA VACCINE [facility] Test 16:48:32 [code = INFLUENZA VACCINE] Future Scheduled 2018 [facility] 00:[facility]:00 malignant neoplasm of colon (procedure) [code = 378886838] Future Scheduled 2018 [facility] Test 00:00:00 malignant neoplasm of colon (procedure) [code = 684270126] Future Scheduled 2018 [facility] Test 00:00:00 malignant neoplasm of colon (procedure) [code = 828062494] Future Scheduled 2018 [facility] Test 00:00:00 malignant neoplasm of colon (procedure) [code = 080294123] Future Scheduled 2018 [facility] Test 00:00:00 malignant neoplasm of colon (procedure) [code = 031096775] Future Scheduled 1980 COVID-19 Vaccine (1) Saeid [...] Date/Time Type Type Clinicians Facility Department ID 2022-12-08 Outpatient Toney PATEL [facility] OPH [id number] Univers 10:41:26 HARINDER [facility] 2022-12-01 Outpatient Toney PATEL [facility] OPH [id number] Univers 10:43:18 HARINDER [facility] 2022-10-03 Outpatient [facility] [id number] [place] 10:08:[address] [facility] 2022-07-28 Outpatient [facility] [id number] [place] 07:23:[address] [facility] 2022-07-01 Outpatient [facility] [id number] [place] 09:45:[id number] [facility] 2022-06-21 Outpatient [facility] [id number] [place] 12:05:[id number] [facility] 2022-06-15 Outpatient [facility] [id number] [place] 11:13:[id number] [facility] 2022-05-23 Outpatient [facility] [id number] [place] 15:06:[address] [facility] 2022-02-27 Outpatient [facility] [id number] [place] 13:36:[id number] [facility] 2022-02-24 Outpatient [facility] [id number] [place] 09:21:[id number] [facility] 2022-02-22 Outpatient [facility] [id number] [place] 06:54:[id number] [facility] 2022-02-13 Outpatient [facility] [id number] [place] 17:29:[address] [facility] 2021-09-14 Inpatient FABRICE Garg MMRI [id number] [facility] 10:00:00 Rosmery Lai [facility] 2021-09-06 Emergency [facility] [id number] Univers 20:29:39 ity [facility] 2021-09-05 Emergency [facility] [id number] Univers 08:58:54 [facility] 2021-09-04 Emergency [facility] [id number] Univers 10:57:48 ity [facility] 2021-09-02 Emergency [facility] [id number] Univers 11:04:09 ity [facility] 2021-03-29 Inpatient Saroj Coates [facility] [id number] [facility] 10:22:48 12 [facility] 2020-11-30 Inpatient Frankel, HCACL DAYS [id number] [facility] 14:00:00 Dhruvil [id number] [facility] 2020-11-27 Inpatient Marlys, HCACL DAYS [id number] [facility] 08:30:00 Dhruvil [id number] [facility] 2020-11-26 Inpatient THALIA Frankel, HCAMN MRAD [id number] [facility] 14:29:[address] [facility] 2020-11-13 Inpatient EM EDDOC, HCAMN MRAD [id number] [facility] 13:08:[address] [facility] 2020-10-24 Inpatient HCACL SARA [id number] [facility] 21:12:00 [id number] [facility] 2020-10-24 Inpatient HCAMN KAITLYNN [id number] [facility] 17:30:[address] [facility] 2020-10-16 Inpatient THALIA Frankel, HCACL DAYS [id number] [facility] 08:00:00 Dhruvil [id number] [facility] 2020-10-03 Inpatient HCAMN KAITLYNN [id number] [facility] 12:12:[address] [facility] 2020-08-15 Inpatient HCAMN KAITLYNN [id number] [facility] 07:53:[address] [facility] 2020-02-20 Inpatient Saroj Coaets [facility] DAYS [id number] [facility] 08:15:00 36 [facility] 2022-12-06 2022-12-06 Telephone Fe [facility] 1.2.840.114 [id number] Univers 00:00:00 00:00:00 Kai Downey MULTISPEC 350.1.13.10 ity [facility] 4.2.7.2.686 [facility] [id number] [address] [facility] 2022-12-06 2022-12-06 [facility] 1.2.840.114 [id number] Univers 00:00:00 00:00:00 Rome martPEC 350.1.13.10 ity of [place] 4.2.7.2.686 [facility] [place] [id number] [address] DIABETES [facility] 2022-09-21 2022-09-21 Outpatient R RAMONITA [facility] [id number] Univers 10:00:00 11:10:16 ROME MART ity of [facility] 2022-09-21 2022-09-21 Office Rome Brar [facility] 1.2 .840.114 [id number] Univers 10:00:00 11:10:16 Visit Kai Miramontes MULTISPEC 350.1.13 .10 ity of [place] 4.2.7.2.686 [facility] [place] [id number] [address] DIABETES [facility] 2022-09-08 2022-09-08 [facility] 1.2.607.652 [id number] Univers 07:37:00 23:59:00 Encounter Kai Downey HEIDY 350.1.13.[address] [facility] 4.2.7.2.68 Gwyn as [id number] [address] 2022-09-08 2022-09-08 Outpatient R [facility] ACO [id number] Univers 00:00:00 23:59:00 KAI ity o f [facility] 2022-09-08 2022-09-08 [facility] 1.2.840.114 [id number] Univers 00:00:00 00:00:00 (Out) Kai Downey MULTISPEC 350.1.13.10 ity of [place] 4.2.7.2.686 [facility] [place] [id number] [address] DIABETES [facility] 2022-09-07 2022-09-07 [facility] 1.2.840.114 [id number] Univers 00:00:00 00:00:00 Jerod ERNEE 350.1.13.10 it[place] [id number] Vt dical NAL 059 [facility] 2022-09-02 2022-09-[address] [facility] 1.2.840.114 [id number] Univers 00:00:00 00:00:00 [place] martPEC 350.1.13.10 [place] [id number] [facility] AND HAGERMAN [address] DIABETES CLINIC 2022-07-08 2022-07-08 Outpatient R [facility], [facility] [id number] Univers 08:20:00 08:20:00 JEROD zuniga o [facility] 2022-07-08 2022-07-08 Outpatient R JERE, [facility] [id number] Univers 08:20:00 08:20:00 JEROD zuniga o [facility] 2022-06-30 2022-06-30 Orders Doctor JEMAL 1.2.840.114 [id number] Univers 00:00:00 00:00:00 Only Unassigned, HEIDY 350.1.13.10 ity of [place] [facility] 4.2.7.2.686 Gwyn as [id number] [facility] [address] 2022-06-29 2022-06-29 Outpatient R JERE, [facility] [id number] Univers 13:00:00 13:00:00 JEROD zuniga o f [facility] 2022-06-27 2022-06-27 Telephone [facility] 1.2.035.494 [id number] Univers 00:00:00 00:00:00 Jerod RENEE 350.1.13.10 it[place] [id number] Vt dical NAL 059 [facility] 2022-06-27 2022-06-27 Orders Doctor JEMAL 1.2.840.114 [id number] Univers 00:00:00 00:00:00 Only Unassigned, HEIDY 350.1.13.10 ity of [place] [facility] 4.2.7.2.686 Gwyn as [id number] [address] 2022-06-22 2022-06-22 Outpatient R [facility], [facility] [id number] Univers 11:00:00 11:00:[address] [facility] 2022-06-22 2022-06-22 Outpatient R [facility], [facility] [id number] Univers 10:00:00 10:08:[address] [facility] 2022-06-14 2022-06-14 Orders Doctor JEMAL 1.2.840.114 [id number] Univers 00:00:00 00:00:00 Only Unassigned, HEIDY 350.1.13.10 ity of [facility] 4.2.7.2.686 [place]wyn as [id number] [address] 2022-06-13 2022-06-13 Outpatient R [facility], [facility] [id number] Univers 10:00:00 10:45:[address] [facility] 2022-06-13 2022-06-13 Office [facility] 1.2.840.114 [id number] Univers 10:00:00 10:45:17 Visit Jerod RENEE 350.1.13.10 ity [facility] [place]2.7.2.[place] [id number] [place] 630569 [facility] 2022-05-12 2022-05-14 [facility], 1.2.840.1 [id number] Methodi 19:19:00 10:47:00 Encounter Abbie 26973.1.[address] 3.430.2.7 Hospit a .3.657870 l .8 2022-05-12 2022-05-14 [facility], 1.2.840.1 [id number] Methodi 19:19:00 10:47:00 Encounter Abbie 92722.1.[address] 3.430.2.7 Hospit a .3.342597 l .8 2022-05-13 2022-05-13 Anesthesia Maritza Blake 1.2.840 .1 [id number] Methodi 11:18:00 13:25:00 Event Figueroa Eid 89514.1.[address] 3.430.2.7 Hospit a .3.780013 l .8 2022-05-13 2022-05-13 Anesthesia Maritza Blake 1.2.840 .1 [id number] Methodi 11:18:00 13:25:00 Event Figueroa Eid 70668.1.[address] 3.430.2.7 Hospit a .3.170663 l .8 2022-05-13 2022-05-13 Surgery Tavo Yusuf 1.2.840.1 [id number] Methodi 11:05:00 13:20:[address] 3.430.2.7 Hospit a .3.013871 l .8 2022-05-13 2022-05-13 Surgery Tavo Yusuf 1.2.840.1 [id number] Methodi 11:05:00 13:20:[address] 3.430.2.7 Hospit a .3.745735 l .8 2022-05-06 2022-05-06 Nurse JEMAL Buckley 1.2.840.114 [id number] Univers 00:00:00 00:00:00 Triage Joanna ROBERTS 350.1.13.[address] [facility] 4.2.7.2.686 [place] [phone] [place] [address] [address] 2022-05-06 2022-05-06 Telephone Jere [facility] 1.2.172.802 [id number] Univers 00:00:00 00:00:00 Jerod RENEE 350.1.13.10 ity [facility] [place] [id number] [address] 2022-04-15 2022-04-15 Lab [facility] [id number] [facility] St 00:00:00 00:00:00 [facility] 2022-04-15 2022-04-15 Lab [facility] [id number] 00:00:00 00:00:00 Requisitio Evelyn es [facility] 2022-04-14 2022-04-14 [facility] [id number] Univers 13:20:00 13:20:00 QIAANN deey o f [facility] 2022-04-14 2022-04-14 Lab [facility] [id number] 00:00:00 00:00:00 Requisitio Evelyn es [facility] 2022-04-14 2022-04-14 Lab [facility] [id number] 00:00:00 00:00:00 Requisitio Evelyn [facility] 2022-03-23 2022-03-23 Emergency X [facility] ERT [id number] Univers 16:51:00 18:37:00 CHIVO ity [facility] 2022-03-23 2022-03-23 Emergency [facility] 1.2.972.147 [id number] Univers 16:51:00 18:37:00 Chivo RENEE 350.1.13.10 i ty [facility] [place]7.2.[place] [id number] [facility] [address] 2022-02-15 2022-02-15 Outpatient R [facility] [id number] Univers 11:00:00 11:00:00 LAURAMERVAT leilaroshan o [facility] 2022-02-15 2022-02-15 Outpatient R [facility] [id number] Univers 11:00:00 11:00:00 LAURAMERVAT leilay o f [facility] 2022-02-10 2022-02-10 Telephone [facility] 1.2.289.146 [id number] Univers 00:00:00 00:00:00 Jerod RENEE 350.1.13.10 ity [facility] 4.2.7.2.686 [place] [facility] [id number] [place] [address] [facility] 2022-02-08 2022-02-08 [facility] [id number] Univers 12:47:16 23:59:00 KELLIEANN efrain o [facility] 2022-02-08 2022-02-08 [facility] [id number] Univers 13:00:00 13:00:00 JEROD efrain o delmer [facility] 2022-01-26 2022-01-26 Committee [facility] 1..840.114 [id number] Univers 00:00:00 00:00:00 Review Kai Downey MULTISPEC 350.1.13.10 [place] [id number] [address] DIABETES CLINIC 2022-01-26 2022-01-26 Telephone [facility] 1.2.840.114 [id number] Univers 00:00:00 00:00:00 Kai Downey MULTISPEC 350.1.13.10 [place] [id number] [address] DIABETES CLINIC 2022-01-18 2022-01-18 Telephone [facility] 1..307.354 [id number] [id number] Univers 00:00:00 00:00:00 Jerod RENEE 350.1.13.10 it[place] [id number] Vt dical NAL 059 [facility] 2022-01-17 2022-01-17 Outpatient R ZECHARIAH [facility] [id number] Univers 11:00:00 11:00:00 HARINDER zuniga [facility] 2022-01-17 2022-01-17 Outpatient R ZECHARIAH [facility] [id number] Univers 11:00:00 11:00:00 HARINDER zuniga [facility] 2022-01-13 2022-01-13 Office [facility] 1.2.840.114 [id number] Univers 15:40:00 16:00:00 Visit Jerod RENEE 350.1.13.10 ity of [place] [id number] Vt dical NAL 059 [facility] 2022-01-13 2022-01-13 [facility] [id number] Univers 15:40:00 15:40:00 JEROD ity o f [facility] 2022-01-06 2022-01-07 Emergency X [facility] ERT [id number] Univers 23:32:00 05:14:00 TOMAS ity [facility] 2022-01-06 2022-01-07 Emergency [facility] 1.2.948.934 [id number] Univers 23:32:00 05:14:00 Tomas S HARLINGEN 350.1.13.10 ity of [place].2.7.2.[place] [id number] [facility] [address] 2022-01-06 2022-01-07 Emergency X [facility] ERT [id number] Univers 23:32:00 05:14:00 TOMAS ity [facility] 2021-12-30 2021-12-30 [facility] [id number] Univers 16:00:00 16:00:00 [facility] 2021-12-27 2021-12-27 Office [facility] 1.2.840.114 [id number] Univers 16:00:00 17:00:00 Visit Codey HARLINGEN 350.1.13.10 i ty of [place].2.7.2.686 [place] [facility] [id number] Vt dical NAL 204 [facility] 2021-12-27 2021-12-27 Outpatient [facility] [id number] Univers 16:00:00 16:00:00 CODEY ity [facility] 2021-12-26 2021-12-26 [facility] [id number] Univers 11:18:00 13:30:00 SHEEBA ity [facility] 2021-12-26 2021-12-26 Emergency Faulconer, TRAUMA 1.2.840.114 [id number] Univers 11:18:00 13:30:00 [facility] 350.1.13.10 it y [place] [id number] [facility] [address] 2021-12-24 2021-12-24 Orders Doctor JEMAL 1.2.840.114 [id number] Univers 00:00:00 00:00:00 Only Unassigned, HEIDY 350.1.13.10 ity of [place] [facility] 4.2.7.2.686 Gywn as [id number] [facility] [address] 2021-12-22 2021-12-22 [facility] [id number] Univers 14:30:00 14:30:00 MACRINA ity of [facility] 2021-12-22 2021-12-22 Case BAR Goodman 1.2.840.114 [id number] Univers 00:00:00 00:00:00 Management Marta XAVIER 350.1.13.10 [place].2.[place] [id number] [facility] [address] 2021-12-13 2021-12-13 Emergency X [facility] ERT [id number] Univers 11:25:00 13:18:00 RAFAEL efrain [facility] 2021-12-13 2021-12-13 Emergency [facility] 1.2.885.842 [id number] Univers 11:25:00 13:18:00 Rafael RENEE 350.1.13.10 i ty of [place].7.2.[place] [id number] [facility] [address] 2021-12-13 2021-12-13 Orders Doctor JOAQUIN 1.2.840.114 [id number] Univers 00:00:00 00:00:00 Only Unassigned, HEIDY 350.1.13.10 ity of [place] [facility] 4.2.7.2.686 Gwyn as [id number] [facility] [address] 2021-12-13 2021-12-13 [facility] 1.2.840.114 [id number] Univers 00:00:00 00:00:00 Kai Downey MULTISPEC 350.1.13.10 [place] [id number] [address] DIABETES CLINIC 2021-12-13 2021-12-13 Case [facility] 1.2.840.114 [id number] Univers 00:00:00 00:00:00 Management Quinn A MULTISPEC 350.1.13.10 [place] [id number] [address] DIABETES CLINIC 2021-11-26 2021-11-26 Telephone [facility] 1.2.840.114 [id number] Univers 00:00:00 00:00:00 Quinn A MULTISPEC 350.1.13.10 ity of [place] 4.2.7.2.686 [facility] [place] [id number] [address] DIABETES CLINIC 2021-11-17 2021-11-17 Outpatient R JERE, [facility] [id number] Univers 09:00:00 09:00:00 JEROD ity o [facility] 2021-11-11 2021-11-11 Telephone [facility] 1.2.840.114 [id number] Univers 00:00:00 00:00:00 Quinn A MULTISPEC 350.1.13.10 ity of [place] 4.2.7.2.686 [facility] [place] [id number] [address] DIABETES CLINIC 2021-11-04 2021-11-04 Outpatient R FE, [facility] [id number] Univers 08:00:00 08:00:00 QUINN ity o [facility] 2021-11-04 2021-11-04 Outpatient R FE, [facility] [id number] Univers 08:00:00 08:00:00 QUINN ity o f [facility] 2021-11-03 2021-11-03 Outpatient R RADIOLOGY [facility] [id number] Univers 08:24:53 23:59:00 ity of [facility] 2021-11-03 2021-11-03 Hospital Radiology [facility] 1.2.840.114 [id number] Univers 08:24:53 23:59:00 Encounter [place] 350.1.13.10 ity of [place] 4.2.7.2.686 [facility] [id number] [facility] [address] 2021-10-22 2021-10-22 Outpatient R [facility] [id number] Univers 10:18:45 23:59:00 QUINN ity o f [facility] 2021-10-22 2021-10-22 [facility] 1.2.812.223 [id number] Univers 10:15:00 23:59:00 Encounter Quinn A [place] 350.1.13.10 ity of [place] 4.2.7.2.686 [facility] [id number] [facility] [address] 2021-10-21 2021-10-21 [facility] 1.2.874.904 [id number] Univers 12:56:45 23:59:00 Encounter Quinn A [place] 350.1.13.10 ity of [place] 4.2.7.2.686 [facility] [id number] [facility] [address] 2021-10-21 2021-10-21 [facility] 1.2.649.542 [id number] Univers 12:52:56 12:55:00 Encounter Quinn A [place] 350.1.13.10 ity of [place] 4.2.7.2.686 [facility] [id number] [facility] [address] 2021-10-21 2021-10-21 Outpatient R [facility] [id number] Univers 00:00:00 12:55:00 KAI zuniga o f [facility] 2021-09-28 2021-09-28 Office [place] Brar [facility] 1.2 .840.114 [id number] Univers 13:00:00 13:45:00 Visit Kai Miramontes MULTISPEC 350.1.13 .10 ity of [place] 4.2.7.2.686 [facility] [place] [id number] [facility] [address] DIABETES [facility]INIC 2021-09-28 2021-09-28 Heel Varnisher, Transplant Social [facility] 1.2.840.114 [id number] Univers 12:36:00 13:21:00 Management Fe, Kai Downey MULTISPEC 350.1 .13.10 ity of IALTY 4.2.7.2.686 [facility] [place] [id number] [facility] [address] [facility] 2021-09-28 2021-09-28 Global Marketing Operations Manager Global Marketing Operations Manager, Transplant [facility] 1. 2.840.114 [id number] [facility] 12:35:47 13:20:47 Visit Kai Miramontes MULTISPEC 350.1.13 .10 ity of [place] 4.2.7.2.686 [facility] [id number] [facility] [address] [facility] 2021-09-28 2021-09-28 Yarn Cleaner Vtc-Lab [facility] 1.2.840.114 [id number] [facility] 12:34:58 13:04:58 Visit Fe Kai Downey MULTISPEC 350.1.13 .10 ity of [place] 4.2.7.2.686 [facility] [phone] [facility] [address] [facility] 2021-09-28 2021-09-28 Outpatient R FE [facility] [id number] Univers 13:00:00 13:00:00 KAI deey o f [facility] 2021-09-28 2021-09-28 Orders Doctor JOAQUIN 1.2.840.114 [id number] Univers 00:00:00 00:00:00 Only Unassigned, HEIDY 350.1.13.10 ity of [place] [facility] 4.2.7.2.686 [facility] [id number] [address] 2021-09-21 2021-09-21 Outpatient R RAMONITA [facility] [id number] Univers 13:30:00 13:30:00 ROME MART itroshan of [facility] 2021-09-20 2021-09-20 [facility] 1.2.840.114 [id number] Univers 00:00:00 00:00:00 Management Kai Downey MULTISPEC 350.1.13.10 ity of IALTY 4.2.7.2.686 [facility] [id number] [facility] [address] DIABETES CLINIC 2021-09-15 2021-09-15 Telephone [facility] 1.2.840.114 [id number] Univers 00:00:00 00:00:00 Kai Downey MULTISPEC 350.1.13.10 ity of IALTY 4.2.7.2.686 [facility] [id number] [facility] [address] DIABETES CLINIC 2021-09-08 2021-09-08 Orders Doctor JEMAL 1.2.840.114 [id number] Univers 00:00:00 00:00:00 Only Unassigned, HEIDY 350.1.13.10 ity of [place] [facility] 4.2.7.2.686 [facility] [id number] [facility] [address] 2021-08-12 2021-08-12 [facility] 1.2.840.114 [id number] Univers 15:50:00 23:59:00 Encounter [facility] 350.1.13.10 ity of [place] 4.2.7.[address] [place] [address] [id number] [facility] Primary & 808 Branch Specialty Care 2021-08-12 2021-08-12 Urgent Guillaume [facility] 1.2.840. 114 [id number] Univers 15:27:03 15:42:03 Care Unknown, [facility] HEALTH 350.1.13.10 ity of [place] 4.2.7.2.[address] [place] [address] [id number] [facility] Primary & 370 Branch Specialty Care 2021-08-12 2021-08-12 Outpatient R UNKNOWN, [facility] [id number] Univers 15:30:00 15:30:00 ATTENDING ity of [facility] 2021-08-05 2021-08-05 Outpatient ZURI Martinez DAYS [id number] [facility] 07:27:00 07:27:00 Beht 64 [facility] 2021-08-05 2021-08-05 Outpatient THALIA Frankel [facility]AC[facility] DAYS [id number] [facility] 07:27:00 07:27:00 Dhruvil [id number] [facility] 2021-08-04 2021-08-04 Outpatient ZURI FrankelCL DAYS [id number] [facility] 13:30:00 13:30:00 Dhruvil [id number] [facility] 2021-07-10 2021-07-10 Emergency [employer] 1.2.840.114 [id number] [facility] 16:18:00 20:29:00 [facility] 350.1.13.10 it y of [place] 4.2.7.2.686 [facility] [id number] [address] ([facility]) 2021-07-09 2021-07-10 Emergency EM Jeremie, HCAMN KAITLYNN [id number] [facility] 21:31:00 01:20:00 Xi [facility] 2021-04-30 2021-04-30 Outpatient [facility] BN0 [id number] [facility] 08:50:00 08:50:00 16 [facility] are [facility] 2021-04-30 2021-04-30 Outpatient Saroj Carmona [facility] DAYS BP0 [id number] [facility] 02:24:00 02:24:00 24 [facility] 2021-04-29 2021-04-29 [facility] 1.2.840.114 [id number] 00:00:00 00:00:00 Quinn A MULTISPEC 350.1.13.10 IAY 4.2.7.2.686 [place] [id number] AND KEVIN [facility] DIABETES CLINIC 2021-04-29 2021-04-29 [facility] 12.840.114 [id number] [facility] 00:00:00 00:00:00 Quinn A MULTISPEC 350.1.13.10 ity of IAVENTURA 4.2.7.2.686 [facility] [id number] [facility] AND BROWN [address] DIABETES CLINIC 2021-02-08 2021-02-08 Outpatient GONZALEZ Frankel [facility] [id number] [facility] 16:30:00 16:30:00 Jeremyshimonnaniroddy [id number] [facility] 2021-01-30 2021-01-31 Emergency Bull, [place] S TRAUMA 1.2.84 0.114 [id number] 19:24:00 00:56:00 Mohamud Mann [place] 350.1.13.10 4.2.7.2.686 [id number] 014 2021-01-30 2021-01-31 Emergency Bull, [place] TRAUMA 1.2.84 0.114 [id number] Univers 19:24:00 00:56:00 Mohamud Mann [facility] 350.1.13.10 it[place] [id number] [facility] [address] 2021-01-23 2021-01-23 Outpatient [facility] [id number] Univers 11:35:00 11:35:00 ity of [facility] 2021-01-23 2021-01-23 Outpatient GCCOVIDV GCCOVIDV [id number] GCCOVID 00:00:00 00:00:00 V 2021-01-13 2021-01-13 Outpatient R FE, [facility] [id number] Univers 10:15:00 10:15:00 KAI ity o f [facility] 2021-01-02 2021-01-02 Outpatient [facility] [id number] Univers 11:45:00 11:45:00 ity of [facility] 2021-01-02 2021-01-02 Outpatient GCCOVIDV GCCOVIDV [id number] GCCOVID 00:00:00 00:00:00 V 2020-12-28 2020-12-28 Transition Bar Mulligan 1.2.840.114 [id number] Univers 00:00:00 00:00:00 of Care Minnie Xavier 350.1.13.10 i ty of [place] [id number] [facility] [address] [place] [address] 2020-12-21 2020-12-24 Inpatient X TITUS, [facility] JAIDEN [id number] Univers 15:38:00 13:50:00 CAMILO ity [facility] 2020-12-16 2020-12-16 Outpatient R [facility] [id number] Univers 10:15:00 10:15:00 QUINN ity o f [facility] 2020-12-02 2020-12-02 Outpatient R [facility] [id number] Univers 13:00:00 13:00:00 ity [facility] 2020-12-02 2020-12-02 Telephone [facility] 1.2.840.114 [id number] 00:00:00 00:00:00 Quinn A MULTISPEC 350.1.13.10 IALTY 4.2.7.2.686 [place] [id number] [place] [address] DIABETES CLINIC 2020-12-02 2020-12-02 Telephone [facility] 1.2.840.114 [id number] Univers 00:00:00 00:00:00 Quinn A MULTISPEC 350.1.13.10 ity of IALTY 4.2.7.2.[address] [facility] [place] [id number] [facility] [address] DIABETES CLINIC 2020-11-24 2020-11-24 [facility] 1.2.840.114 [id number] 00:00:00 00:00:00 Management Quinn A MULTISPEC 350.1.13.10 IALTY 4.2.7.2.686 [place] [id number] AND BROWN 189 DIABETES CLINIC 2020-11-24 2020-11-24 Case [facility] 1.2.840.114 [id number] Univers 00:00:00 00:00:00 Management Quinn A MULTISPEC 350.1.13.10 ity of IALTY 4.2.7.2.686 [facility] [place] [id number] [facility] [address] DIABETES CLINIC 2020-11-17 2020-11-17 Telephone [facility] 1.2.840.114 [id number] Univers 00:00:00 00:00:00 Kai Downey MULTISPEC 350.1.13.10 it[place] [id number] [facility] AND HAGERMAN [address] DIABETES CLINIC 2020-11-01 2020-11-02 Emergency [facility] TRAUMA 1.2.840.114 [id number] Univers 20:00:00 02:24:00 [facility] 350.1.13.10 [place] [id number] [facility] [address] 2020-11-01 2020-11-02 [id number] Univers 20:00:00 02:24:00 , RYAN ity of [facility] 2020-10-21 2020-10-21 Transition Bar Alfaro 1.2.840.114 [id number] Univers 00:00:00 00:00:00 of Care Soila Leviy 350.1.13.10 it y of [place] [id number] [facility] [address] 2020-10-20 2020-10-20 Outpatient ZURI Frankel DAYS [id number] [facility] 10:15:00 10:15:00 Dhruvil [id number] [facility] 2020-10-20 2020-10-20 Transition Bar Alfaro 1.2.840.114 [id number] Univers 00:00:00 00:00:00 of Care Soila Leviy 350.1.13.10 it y [place] [id number] [facility] [address] 2020-10-18 2020-10-19 Emergency Tala Blanton 1.2.8 40.114 [id number] Univers 13:09:00 13:10:00 Quinn Max 350.1.13.10 ity of [facility] 4.2.7.2.686 Gwyn as [id number] [facility] [address] 2020-09-29 2020-09-29 Outpatient FABRICE Frankel MCTS [id number] [facility] 10:00:00 10:00:00 Dhruvil 30 [facility] 2020-09-17 2020-09-17 Outpatient ZURI HamMN [facility] [id number] [facility] 09:00:00 09:00:00 Alfredo 28 [facility] 2020-09-09 2020-09-09 Telephone Ramonita [facility] 1.2.840.114 [id number] Univers 00:00:00 00:00:00 [place] [address] MULTISPEC 350.1.13.10 ity of [place] [id number] [facility] [address] DIABETES CLINIC 2020-08-15 2020-08-15 Outpatient GONZALEZ Mcgregor LABO [id number] [facility] 14:17:00 14:17:00 Haydee [facility] 2020-06-25 2020-06-25 [facility] 1.2.302.797 [id number] [facility] 11:01:00 23:59:00 Encounter Kai Downey HEIDY 350.1.13.10 ity of [facility] 4.2.7.2.686 [place] [id number] [place] [address] Branch 2020-06-25 2020-06-25 Outpatient R [facility] ACO [id number] Univers 00:00:00 00:00:00 KAI ity o f [facility] 2020-06-25 2020-06-25 Letter [facility] 1.2.840.114 [id number] Univers 00:00:00 00:00:00 (Out) Kai Downey MULTISPEC 350.1.13.10 ity of IAL[place] 4.2.7.2.686 [facility] [place] [id number] [facility] [address] DIABETES CLINIC 2020-06-24 2020-06-24 Telephone [facility] 1.2.840.114 [id number] Univers 00:00:00 00:00:00 Kai Downey MULTISPEC 350.1.13.10 ity of [place] 4.2.7.2.686 [facility] [id number] [address] DIABETES CLINIC 2020-04-06 2020-04-07 Emergency X SADIE, [facility] ERT [id number] Univers 22:44:24 01:28:00 JUAN R zuniga [facility] 2020-04-01 2020-04-01 Office [facility] 1.2.378.530 [id number] Univers 14:27:38 15:31:19 Visit Jemal [place] 350.1.13.10 it[place] AT [id number] Vt padmaja SOTELO 198 [facility] 2020-04-01 2020-04-01 [facility] [id number] Univers 15:00:00 15:00:00 JEMAL zuniga [facility] 2020-04-01 2020-04-01 Transition Bar Alfaro 1.2.840.114 [id number] Univers 00:00:00 00:00:00 of Care Soila Xavier 350.1.13.10 it y of [place] [id number] [facility] [address] 2020-03-27 2020-03-29 Hospital Tomas Pitt [facility] 1.2.840. 114 [id number] Univers 21:42:10 15:30:00 Encounter Jenn Dwyer 350.1.13.10 ity of [place] 4.2.7.2.686 [facility] [id number] [facility] [address] 2020-03-27 2020-03-27 [facility] 1.2.840.114 [id number] Univers 09:42:00 21:41:00 Encounter Jemal [facility] 350.1.13.10 ity of CLINICS [place].2.[place] [id number] [facility] [address] 2020-03-27 2020-03-27 [facility] 1.2.840.114 [id number] Univers 09:00:00 09:41:00 Encounter Jemal Roberts 350.1.13.10 ity of [facility] 4.2.7.2.686 [place] as [id number] [facility] [address] 2020-03-27 2020-03-27 Outpatient R FAILLACE, [facility] [id number] Univers 09:28:06 09:28:06 JEMAL ity of [facility] 2020-03-27 2020-03-27 Nurse JEMAL Chand 1.2.840.114 [id number] Univers 00:00:00 00:00:00 Triage Ora ROBERTS 350.1.13.10 it y of HOSPITAL 4.2.7.2.686 [place] [id number] [facility] [address] 2020-03-27 2020-03-27 Telephone [facility] 1.2.840.114 [id number] Univers 00:00:00 00:00:00 Jemal SPECIALTY 350.1.13.10 [place] [id number] Vt dicalba SOTELO 198 [facility] 2020-03-25 2020-03-26 Office [facility] 1.2.276.502 [id number] Univers 13:40:53 10:11:00 Visit Jemal BROWN 350.1.13.10 it[place] of [place] AT [id number] Vt padmaja SOTELO 198 [facility] 2020-03-26 2020-03-26 Orders Doctor JEMAL 1.2.840.114 [id number] Univers 00:00:00 00:00:00 Only Unassigned, HEIDY 350.1.13.10 ity of [place] [facility]PITAL 4.2.7.2.686 [place] as [id number] [facility] [address] 2020-03-25 2020-03-25 Outpatient R FAILLACE, [facility] [id number] Univers 13:59:08 23:59:00 JEMAL ity of [facility] 2020-03-25 2020-03-25 [facility] 1.2.840.114 [id number] Univers 13:59:00 23:59:00 Encounter Jemal BROWN 350.1.13.10 it[place] [id number] Vt padmaja SOTELO 809 [facility] 2020-03-25 2020-03-25 Out[facility] [id number] Univers 14:20:00 14:20:00 JEMAL ity of [facility] 2020-03-23 2020-03-23 Abstract Anthony [facility] 1.2.840.114 [id number] Univers 00:00:00 00:00:00 Indira Sruhti SPECIALTY 350.1.13.10 ity of [place]2.[place] AT [id number] Vt padmaja [address] 2020-03-20 2020-03-20 [facility]phone [facility] 1.2.840.114 [id number] Univers 00:00:00 00:00:00 Jemal WETZEL 350.1.13.10 it y of [facility] 4.2.7[place]2.686 [place] [facility] [id number] [facility] [address] 2020-02-27 2020-02-27 Transition Bar Mulligan 1.2.840.114 [id number] Univers 00:00:00 00:00:00 of Care Minnie Xavier 350.1.13.10 i ty of [place] 4.2.7.2.686 [facility] [id number] [facility] [address] 2020-02-25 2020-02-26 Outpatient X RAFA [facility] JAIDEN [id number] Univers 07:55:51 16:21:00 VERO zuniga [facility] 2020-02-25 2020-02-26 Emergency Tala Blanton [facility] 1.2.8 40.114 [id number] Univers 07:55:51 16:21:00 Vero Elias 350.1.13.10 ity of [place] 4.2.7.2.686 [facility] [id number] [facility] [address] 2020-02-20 2020-02-20 Outpatient [id number] [facility] 08:16:00 08:16:00 32 Sharmaine [facility] 2019-12-31 2020-01-01 Emergency Harvinder [facility] 1.2.840.114 [id number] Univers 20:13:57 00:33:00 Tala Renee 350.1.13.10 ity of [place] 4.2.7.2.686 [facility] [id number] [facility] [address] 2019-12-26 2019-12-26 Outpatient R AGLIECO, [facility] [id number] Univers 10:29:47 23:59:00 CARLOS ity of [facility] 2019-12-26 2019-12-26 [facility] 1.2.028.393 [id number] Univers 10:29:00 23:59:00 Encounter Carlos Renee 350.1.13.10 ity of [place] 4.2.7.2.686 [facility] [id number] [facility] [address] 2019-12-04 2019-12-04 Hospital Radiology [facility] 1.2.840.114 [id number] Univers 08:51:00 23:59:00 Encounter Madeline 350.1.13.10 ity of [place] 4.2.7.2.686 [facility] [id number] [facility] [address] 2019-12-04 2019-12-04 Outpatient R RADIOLOGY [facility] [id number] Univers 08:33:28 08:50:00 ity of [facility] 2019-12-04 2019-12-04 Hospital Radiology [facility] 1.2.840.114 [id number] Univers 08:33:00 08:50:00 Encounter Madeline 350.1.13.10 ity of [place] 4.2.7.2.686 [facility] [id number] [facility] [address] 2019-12-04 2019-12-04 Orders Doctor JOAQUIN 1.2.840.114 [id number] Univers 00:00:00 00:00:00 Only Unassigned, HEIDY 350.1.13.10 ity of [place] HOSPITAL 4.2.7.2.686 [place] as [id number] [facility] [address] 2019-11-26 2019-11-26 Emergency Ibikunle, [facility] 1.2.840.114 [id number] Univers 13:07:34 16:34:00 Wanda Renee 350.1.13.10 ity of [place] 4.2.7.2.686 [facility] [id number] [facility] [address] 2019-11-26 2019-11-26 Orders Doctor JEMAL 1.2.840.114 [id number] Univers 00:00:00 00:00:00 Only Unassigned, HEIDY 350.1.13.10 ity of [place] HOSPITAL 4.2.7.2.686 [place] as [id number] [address] 2019-11-21 2019-11-21 Orders Doctor JEMAL 1.2.840.114 [id number] Univers 00:00:00 00:00:00 Only Unassigned, HEIDY 350.1.13.10 ity of [place] HOSPITAL 4.2.7.2.686 [place] as [id number] [facility] [address] 2019-11-20 2019-11-20 Transition Bar Zelaya 1.2.840.114 [id number] Univers 00:00:00 00:00:00 of Care Lizz Xavier 350.1.13.10 it y of [place]2.7.2.[place] [id number] [facility] [address] 2019-11-18 2019-11-19 Outpatient X CHAMP [facility] [id number] Univers 23:47:40 18:50:00 RAWAN ity of [facility] 2019-11-18 2019-11-19 Emergency Michael Meza 1.2.840. 114 [id number] Univers 23:47:40 18:50:00 Valentino Freeman [place] 350.1.13.10 ity of [facility] 4.2.7.2.686 [place] [id number] [facility] [address] 2019-10-25 2019-10-25 Outpatient R TED [facility] [id number] Univers 08:15:00 08:46:34 CHARISSE dowell [facility] 2019-08-23 2019-08-23 Outpatient R TED [facility] EDITA [id number] Univers 11:02:00 16:14:00 CHARISSE dowell [facility] 2019-07-26 2019-07-26 Hospital Radiology [facility] 1.2.840.114 [id number] Univers 10:19:00 23:59:00 Encounter Madeline 350.1.13.10 ity of [place].7.2.686 [place] [id number] [facility] [address] 2019-07-26 2019-07-26 Hospital Radiology [facility] 1.2.840.114 [id number] Univers 10:18:08 10:18:08 Encounter Madeline 350.1.13.10 ity of [place].7.2.[place] [id number] [facility] [address] 2019-07-26 2019-07-26 Office [facility] 1.2.840.114 [id number] Univers 09:14:38 09:45:25 Visit Charisse Renee 350.1.13.10 ity of [place].2.7.2.[place] Profess[place] [id number] Vt dical nal [address] [facility] 2019-07-26 2019-07-26 Outpatient R [facility] [id number] [facility] 08:00:00 09:45:25 CHARISSE donnelly f [facility] 2019-07-19 2019-07-19 [facility] 1.2.151.038 [id number] [facility] 02:20:47 04:23:00 Tomas Renee 350.1.13.10 ity of [place].2.7.2.[place] Ralph [id number] [facility] [address] 2019-07-02 2019-07-02 [facility] 1.2.840.114 [id number] Univers 08:48:16 20:21:43 Visit Charisse Renee 350.1.13.10 ity of [place].2.[place] [id number] Vt dical nal [address] [facility] 2019-07-02 2019-07-02 Letter [facility] 1.2.840.114 [id number] Univers 00:00:00 00:00:00 (Out) Gaston Renee 350.1.13.10 i ty of [place].7.2.[place] [phone] Vt dical nal [address] Building 2019-06-17 2019-06-17 [facility] Jerod Oquendo [facility] 1.2.840.114 [id number] Univers 12:58:27 23:59:00 Encounter Tech, Adc [facility] [place] 3 50.1.13.10 ity of [place] 4.2.7.2.686 [facility] [id number] [facility] [address] 2019-06-17 2019-06-17 Orders Doctor JEMAL 1.2.840.114 [id number] Univers 00:00:00 00:00:00 Only Unassigned, HEIDY 350.1.13.10 ity of [place] [facility] 4.2.7.2.686 [place]wyn as [id number] [place] [address] Branch 2019-06-13 2019-06-13 [facility] Jerod Oquendo [facility] 1.2.840.114 [id number] Univers 12:42:36 23:59:00 Encounter Tech, Adc [facility] [place] 3 50.1.13.10 ity of [place] 4.2.7.2.686 [facility] [phone] [address] 2019-06-13 2019-06-13 Orders Doctor JEMAL 1.2.840.114 [id number] Univers 00:00:00 00:00:00 Only Unassigned, HEIDY 350.1.13.10 ity of [place] [facility]ITAL 4.2.7.2.686 [place] as [id number] [address] 2019-06-05 2019-06-05 [facility] 1.2.840.114 [id number] Univers 00:00:00 00:00:00 Management Charisse Renee 350.1.13.10 ity of [place] 4.2.7.2.686 [facility] [phone] [place] [address] Branch [facility] 2019-04-26 2019-04-26 Outpatient R RADIOLOGY [facility] [id number] Univers 00:00:00 23:59:00 ity of [facility] 2019-04-19 2019-04-19 Outpatient R TED [facility] [id number] Univers 08:15:00 08:23:02 CHARISSE dowell [facility] 2019-04-16 2019-04-16 Outpatient R RADIOLOGY [facility] [id number] Univers 00:00:00 23:59:00 ity of [facility] 2019-03-26 2019-03-31 Inpatient Teresa MILLAN [facility] JAIDEN [id number] Univers 23:28:57 13:00:00 ALEXY roshan [facility] 2019-01-03 2019-01-03 Outpatient R DOLLY, [facility] [id number] Univers 08:00:00 08:00:00 VIOLETA roshan [facility] 2019-01-01 2019-01-01 Outpatient Toney JEAN, [facility] EDITA [id number] Univers 09:39:08 10:54:00 CHARISSE efrain o f [facility] 2018-07-12 2018-07-12 Outpatient [place] [address] [id number] Memoria 15:45:00 21:00:00 r Rob 00 l [facility] 2018-07-12 2018-07-12 Outpatient [place] [address] [id number] Memoria 15:45:00 21:00:00 toney Rivas 00 l [facility] 2018-07-12 2018-07-12 Outpatient NORMA Saleh [facility] [id number] 10:45:00 16:00:00 Charly Anni Antelmo 2018-04-24 2018-04-24 Orders Doctor JEMAL 1.2.840.114 [id number] Univers 00:00:00 00:00:00 Only Unassigned, HEIDY 350.1.13.10 ity of [place] [facility] 4.2.7.2.686 [place] as [phone] [address] Results Test Description Test Time Test Comments Results Result Comments Source ECG Pre/Post Op 2022-05-13 19:46:18 Test Item Value Reference Range Interpretation Comme nts Ventricular rate (test code = 253) Atrial rate (test code = 255) NJ interval (test code = 266) QRSD interval (test code = 260) QT interval (test code = 264) QTC interval (test code = 265) P axis 1 (test code = 267) QRS axis 1 (test code = 268) T wave axis (test code = 270) EKG impression (test code = 273) Normal sinus rhythm-Rightward axis-Nonspecific intraventricular block-Abnormal ECG-No [facility] [id number] 19:46:18 Test Item Value Reference Range Interpretation Comments Ventricular rate (test code = 253) Atrial rate (test code = 255) NJ interval (test code = 266) QRSD interval (test code = 260) QT interval (test code = 264) QTC interval (test code = 265) P axis 1 (test code = 267) QRS axis 1 (test code = 268) T wave axis (test code = 270) EKG impression (test Normal sinus code = 273) rhythm-Rightward axis-Nonspecific intraventricular block-Abnormal ECG-No previous ECGs available- [facility] Pre/Post [id number] 19:46:18 Test Item Value Reference Range Interpretation Comments Ventricular rate 97 (test code = 253) Atrial rate (test 97 code = 255) NJ interval (test 158 code = 266) QRSD interval (test 148 code = 260) QT interval (test 406 code = 264) QTC interval (test 515 code = 265) P axis 1 (test code 55 = 267) QRS axis 1 (test 108 code = 268) T wave axis (test 36 code = 270) EKG impression (test Normal sinus code = 273) rhythm-Rightward axis-Nonspecific intraventricular block-Abnormal ECG-No previous ECGs available- [facility] [id number] 18:32:00 Test Item Value Reference Range Interpretation Comments POC glucose (test code 82 mg/dL 65-99 Opera tor Name: Pugh = [id number]) Collette Flynnice ID : [id number] able: [facility] Notified RN [facility] [id number] 18:32:00 Test Item Value Reference Range Interpretation Comments POC glucose (test code 82 mg/dL 65-99 Opera tor Name: Pugh = [id number]) Collette Flynnice ID : [id number] able: TM Notified RN [facility] [id number] 18:32:00 Test Item Value Reference Range Interpretation Comments POC glucose (test code 82 mg/dL 65-99 Opera tor Name: [place] = [id number]) Collette MDevice ID : [id number] able: [facility] Notified RN [employer] [place] [facility] C [id number] 20:36:01 Test Item Value Reference Range Interpretation Comments Hepatitis C Ab (test code = Reactive Nonreactive A 43582-2) ROSE (test code = ROSE) Coal Carrier ID - BS Lab Interpretation (test Abnormal code = 44338-9) [facility] C [id number] 20:36:01 Test Item Value Reference Range Interpretation Comments Hepatitis C Ab (test code = Reactive Nonreactive A 13484-5) ROSE (test code = ROSE) Coal Carrier ID - BS Lab Interpretation (test Abnormal code = 83412-9) [facility] C [id number] 20:36:01 Test Item Value Reference Range Interpretation Comments Hepatitis C Ab (test code = Reactive Nonreactive A 95236-2) ROSE (test code = ROSE) Coal Carrier ID - BS Lab Interpretation (test Abnormal code = 96126-6) [facility] C [id number] 20:36:01 Test Item Value Reference Range Interpretation Comments HEPATITIS C ANTIBODY (BEAKER) (test Reactive Nonreactive A code = 367) Coal Carrier ID - BSHetwin [facility] centertis B core antibody, [id number] 20:35:17 Test Item Value Reference Range Interpretation Comments Hep B Core Total Ab (test Nonreactive Nonreactive code = 97630-0) ROSE (test code = ROSE) Coal Carrier ID - BS Lab Interpretation (test Normal code = 46651-5) [facility], [id number] 20:35:17 Test Item Value Reference Range Interpretation Comments Hep B Core Total Ab (test Nonreactive Nonreactive code = 58515-7) ROSE (test code = ROSE) Coal Carrier ID - BS Lab Interpretation (test Normal code = 26562-5) [facility] B core antibody, [id number] 20:35:17 Test Item Value Reference Range Interpretation Comments Hep B Core Total Ab (test Nonreactive Nonreactive code = 49936-3) ROSE (test code = ROSE) Coal Carrier ID - BS Lab Interpretation (test Normal code = 86987-1) [facility] B CORE ANTIBODY, [id number] 20:35:17 Test Item Value Reference Range Interpretation Comments HEPATITIS B CORE TOTAL ANTIBODY Nonreactive Nonreactive (BEAKER) (test code = 497) Coal Carrier ID - BSHepatitis B surface [id number] 20:35:12 Test Item Value Reference Range Interpretation Comments Hepatitis B surface Nonreactive Nonreactive antigen (test code = 5195-3) ROSE (test code = ROSE) Specimen is considered negative for HBsAg. Lab Interpretation (test Normal code = 29453-5) [facility] B surface [id number] 20:35:12 Test Item Value Reference Range Interpretation Comments Hep B S Ab (test code 37.5 See_Comment H [Auto mated = 72983-0) message] The system which generated this result transmit darrion reference range : <8.0 mIU/mL. Th e reference range was not used to interpret this result as normal/abnormal . ROSE (test code = ROSE) Coal Carrier ID - BS Lab Interpretation Abnormal (test code = 77851-4) [facility] B surface [id number] 20:35:12 Test Item Value Reference Range Interpretation Comments Hepatitis B surface Nonreactive Nonreactive antigen (test code = 5195-3) ROSE (test code = ROSE) Specimen is considered negative for HBsAg. Lab Interpretation (test Normal code = 92892-5) [facility] B surface [id number] 20:35:12 Test Item Value Reference Range Interpretation Comments Hep B S Ab (test code 37.5 See_Comment H [Auto mated = 08610-4) message] The system which generated this result transmit darrion reference range : <8.0 mIU/mL. Th e reference range was not used to interpret this result as normal/abnormal . ROSE (test code = ROSE) Coal Carrier ID - BS Lab Interpretation Abnormal (test code = 29991-7) [facility] B surface [id number] 20:35:12 Test Item Value Reference Range Interpretation Comments Hepatitis B surface Nonreactive Nonreactive antigen (test code = 5195-3) ROSE (test code = ROSE) Specimen is considered negative for HBsAg. Lab Interpretation (test Normal code = 95137-6) [facility] surface [id number] 20:35:12 Test Item Value Reference Range Interpretation Comments Hep B S Ab (test code 37.5 See_Comment H [Auto mated = 37117-4) message] The system which generated this result transmit darrion reference range : <8.0 mIU/mL. Th e reference range was not used to interpret this result as normal/abnormal . ROSE (test code = ROSE) Coal Carrier ID - BS Lab Interpretation Abnormal (test code = 68685-1) [facility] B SURFACE [id number] 20:35:12 Test Item Value Reference Range Interpretation Comments HEPATITIS B SURFACE ANTIGEN (2) Nonreactive Nonreactive (BEAKER) (test code = 2585) Specimen is considered negative for HBsAg.HEPATITIS B SURFACE [id number] 20:35:12 Test Item Value Reference Range Interpretation Comments HEPATITIS B SURFACE ANTIBODY 37.5 mIU/mL <8.0 H (BEAKER) (test code = 647) Coal Carrier ID - BSHEPATITIS B SURFACE [id number] 23:25:59 Test Item Value Reference Range Interpretation Comments HEPATITIS B SURFACE ANTIBODY 33.0 mIU/mL <8.0 H (BEAKER) (test code = 647) Coal Carrier ID - ADMINHEPATITIS B SURFACE [id number] 23:25:57 Test Item Value Reference Range Interpretation Comments HEPATITIS B SURFACE ANTIGEN (2) Nonreactive Nonreactive (BEAKER) (test code = 2585) Specimen is considered negative for HBsAg.GLUCOSE [id number] 11:50:00 Test Item Value Reference Range Interpretation Comments GLUCOSE BEDSIDE (test 84 MG/DL 70-110 N [facility] med by certified code = GLUBED) board operator at [facility] BASIC METABOLIC [id number] 09:20:00 Test Item Value Reference Range Interpretation [...] = 6.5 mg/dL 8.0-10.5 L CA) GLUCOSE [id number] 09:04:00 Test Item Value Reference Range Interpretation Comments GLUCOSE BEDSIDE (test 79 MG/DL 70-110 N [facility] med by certified code = GLUBED) board operator at [facility] COVID 19 Asymptomatic IH [id number] 15:30:00 Test Item Value Reference Range Interpretation [...] moderate, high or waivedcomplexit y tests. PROTHROMBIN [id number] 14:36:00 Test Item Value Reference Range Interpretation [...] (to prevent recurrent infar ct). THROMBOPLASTIN TIME [id number] 14:36:00 Test Item Value Reference Range Interpretation Comments THROMBOPLASTIN TIME 33.9 Seconds 25.0-39.5 N Therape utic Range: PARTIAL (test code = 50.4 - 88.3 Seconds PTT) Effective 02/19/2019 BASIC METABOLIC [id number] 14:28:00 Test Item Value Reference Range Interpretation [...] 8.3 mg/dL 8.0-10.5 N CA) CBC W/AUTO [id number] 14:05:00 Test Item Value Reference Range Interpretation [...] NO = MDIFF) - XR CHEST 2 [id number] 00:00:00 [facility] : 1970 Sex: M FAX: Rosmery Cohen MD Ralph: St: PRE FAX: Beth Correia MD [phone] FAX: Tamika Hadley Name: VLADIMIR MAGUIRE [facility] : 1970 Age/S: 50/M [address] [place] [address] Unit #: [id number] Loc: [place] [address] Phys: Tamika Hadley HAND STITCHER Acct: [id number] Dis Date: Status: PRE [facility] PHONE #: [phone] Exam Date: 08/04/2021 1434 FAX #: [phone] Reason: PREOP EXAMS: CPT CODE: [id number] XR CHEST 2 V 67262 PROCEDURE INFORMATION: Exam: XR Chest Exam date [...] Reported and signedby: Mason Pop M.D. CC: Rosmery Braun; Beth Frankel MD; Tamika Hadley NP Technologist: RT Supriya(R) Trnscrd Date/Time/By: 08/04/2021 (7827) : By: [email or web address] Orig Print D/T: S: 08/04/2021 (1679) PAGE 1 Signed Report- XR KNEE 3 V [id number] 23:20:00 [facility] : 1970 Sex: M FAX: Rosmery Cohen MD Ralph: St: [facility] FAX: Gisel Dwyer MD Name: VLADIMIR MAGUIRE [facility] : 1970 Age/S: 50/M [address] [facility] Unit #: [id number] Loc: [address] Phys: [place] [address] Acct: [id number] Dis Date: Status: REG ER PHONE #: [phone] Exam Date: 07/09/20212314 FAX #: [phone] Reason: fall injury EXAMS: CPT CODE: [id number] XR KNEE 3 [place] [address] Examination: Bilateral knees 3 views Location code: [...] Braun MD;Gisel Dwyer MD Technologist: Lisa Haines [facility] Date/Time/By: 07/09/2021 (2320) : By: [email or web address] PAGE 1 Signed Report FAX: Rosmery Cohen MD Ralph: St: [facility] FAX: Gisel Dwyer MD Name: VLADIMIR MAGUIRE [facility] : 1970 Age/S: 50/M [address] [facility] Unit #: [id number] Loc: [address] Phys: [place] [address] Acct: [id number] Dis Date: Status: REG ER PHONE #: [phone] Exam Date: 07/09/20212314 FAX #: [phone] Reason: fall injury EXAMS: CPT CODE: [id number] XRKN[place] [address] <Continued> Orig Print D/T: S: 07/09/2021 (6640) PAGE 2 Signed Report- XR FOREARM 2 VIEWS [id number] 23:18:00[facility] PRESLEYCES[facility]IR : 1970 Sex: M FAX: Rosmery Cohen MD Ralph: St: REG FAX: Gisel Dwyer MD Name: PRESLEYVLADIMIR [facility] : 1970 Age/S: 50/M [address] [facility] Unit #: [id number] Loc: [address] Phys: [place] [address] Acct: [id number] Dis Date: Status: REG ER PHONE #: [phone] Exam Date: 07/09/2021 2315 FAX #: [phone] Reason: fall injury EXAMS: CPT CODE: [id number] XR FOREARM 2 [place] [address]Qxemzttelxc: Right hand 3 views, right forearm 2 [...] MD; Gisel Dwyer MD Technologist: Lisa Haines Trntnrd Date/Time/By: 07/09/2021 (9984) : By: [email or web address] PAGE 1 Signed Report FAX: Rosmery Cohen MD Ralph: St: REG FAX: Gisel Dwyer MD Name: PRESLEYVLADIMIR [facility] : 1970 Age/S: 50/M [address] [facility] Unit #: [id number] Loc: [address] Phys: [place] [address] Acct: [id number] Date: Status: REG ER PHONE #: [phone] Exam Date: 07/09/2021 2315 FAX #: [phone] Reason: fall injury EXAMS: CPT CODE: [id number] XR FORE[place] [address] [place] [address] <Continued> Orig Print D/T: S: 07/09/2021 (7810) PAGE 2 Signed Report- XR HUMERUS 2 + V RT 2021-07-09 23:18:00 [facility] : 1970 Sex: M FAX: Rosmery Cohen MD Ralph: St: REG FAX: Gisel Dwyer MD Name: VLADIMIR MAGUIRE [facility] : 1970 Age/S: 50/M [address] [place] [address] Unit #: [id number] Loc: [address] [place]: [place] [address] Acct: [id number] Dis Date: Status: REG ER PHONE #: [phone] Exam Date: 07/09/20212314 FAX #: [phone] Reason: fall injury EXAMS: CPT CODE: [id number] XR HUMERUS 2 + V RT 974[address]Sabptfkewaf: Right hand 3 views, right forearm 2 [...] MD Technologist: Lisa Haines Trnscrd Date/Time/By: 07/09/2021 (2710) : By: [email or web address] PAGE 1 Signed Report FAX: Rosmery Cohen MD Ralph: [facility] t: REG FAX: Gisel Dwyer MD Name: VLADIMIR MAGUIRE [facility] : 1970 Age/S: 50/M [address] [facility] Unit #: [id number] Loc: [address] [place]: [place] [address] Acct: [id number] Date: Status: REG ER PHONE #: [phone] Exam Date: 07/09/2021 2315 FAX #: [phone] Reason: fall injury EXAMS: CPT CODE: [id number] XR HUMERUS 2 + V RT [address] <Continued> Orig Print D/T: S: 07/09/2021 (8675) PAGE 2 Signed Report- XR HAND 3 + V RT 2021-07-09 23:18:00 [facility] : 1970 Sex: M FAX: Rosmery Cohen MD Ralph: St: REG FAX: Gisel Dwyer MD Name: VLADIMIR MAGUIRE [facility] : 1970 Age/S: 50/M [address] [facility] Unit #: [id number] Loc: [address] [place], [place]: [place] [address] Acct: [id number] Dis Date: Status: REG ER PHONE #: [phone] Exam Date: 07/09/20212314 FAX #: [phone] Reason: fall injury EXAMS: CPT CODE: [id number] XR HAND 3 + V [place] [address]173 Examination: Right hand 3 views, right forearm [...] plate and screws traversing a healed distal r adial fracture. at 2318 Reported and signed by: HELEN WALLACE CC: Rosmery Braun MD; Gisel Dwyer MD Technologist: Lisa Haines Trnscrd Date/Time/By: 07/09/2021 (2318) : By: [email or web address] PAGE 1 Signed Report FAX: Rosmery Cohen MD Ralph: St: REG FAX: Giesl Dwyer MD Name: VLADIMIR MAGUIRE [facility] : 1970 Age/S: 50/M [address] [facility] Unit #: [id number] Loc: [address] [place], [place]: [place] [address] Acct: [id number] Dis Date: Status: REG ER PHONE #: [phone] Exam Date: 07/09/2021 2315 FAX #: [phone] Reason: fall injury EXAMS: CPT CODE: [id number] XR HAND 3 + V RT [address] <Continued> Orig Print D/T: S: 07/09/2021 (6591) PAGE 2 Signed ReportSURGICAL [id number] 17:11:00 Test Item Value Reference Range Interpretation Comments SURGICAL SPECIMENS (test code = SURG) RUN DATE: 05/03/21 [facility] - LAB PAGE 1 RUN TIME: 1711 Specimen Inquiry RUN USER: INTERFACE PATIENT: VLADIMIR MAGUIRE [facility] U #: [id number] AGE/SX: 50/M ROOM: RE04/30/21[facility] DR: Saroj Coates MD (GEN EDITA : 66 BED: DIS: STATUS: [facility] TLOC: SPEC #: [id number] RECD: 04/30/21 STATUS: NEIL RE #: [id number] BENEDICTO: 04/30/[address] [facility] [address]: Saroj Coates MD (GEN SURG) ENTERED: 04/30/21 SP TYPE: SURG OTHR DR: Rosmery Braun MD ORDERED: 95893, PATH SPEC, H E STAIN HISTOLOGY: TISSUE ID BLK PCS GHADA LEV / PROCEDURE DISPOSITION ____ ___ ___ ___ ___ PILONIDAL CYST A 1 1 TISSUES: A. PILONIDAL CYST - Pilonidal Cyst CLINICAL HISTORY Pilonidal cyst/abscess. FINAL DIAGNOSIS PILONIDAL CYST, EXCISION: - SKIN WITH SINUS TRACT LINED BY INFLAMED GRANULATION TISSUE, CONSISTENT WITH PILONIDAL CYST CPT 20044 GROSS DESCRIPTION Received in formalin labeled with the patient's name and "pilonidal cyst/abscess" are two irregularly-shaped fragments of skin and underlying soft tissue, upon reapproximation measuring 4.0 x 3.5 x 3.0 cm. The skin (3.0 x 1.0 cm) is grossly unremarkable sandoval-coker. The cut surface shows an abscess cavity, 1.2 cm in diameter. Calender Wind Up Tender sections are submitted in one cassette. CM/ph MICROSCOPIC DESCRIPTION PERFORMED - Signed SIGNATURE ON FILE Mel Cleaning MD 05/03/21 1711 END OF REPORT BASIC METABOLIC [id number] 07:30:00 Test Item Value Reference Range Interpretation [...] BACK AND SHAYNA PAGE, on 04/30/21, @ 8831.Please not e: New Reference Range Dec 2020 CALCIUM (test code = 6.6 mg/dL 8.7-10.4 L Please note: New CA) Reference Range Dec 2020 COVID Asymptomatic IH [id number] 13:16:00 Test Item Value Reference Interpretation Comments [...] i ts performancechar acteristics were determined by [facility]. Thi s test has notbeen FDA kyleigh [...] setting? Unknown? NoAge at collection: YBASIC METABOLIC [id number] 12:02:00 Test Item Value Reference Range Interpretation [...] . CREATININE (test 13.80 mg/dL 0.70-1.30 Critical In lue code = CREAT) reported toFir st Name:SALLY Last Name:DOMI JONES READ BACK AND VERIFIEDby BEBETO ZAMBRANO, on 04/27/21, @ 1202.Please not e: New Reference Range Dec 2020 CALCIUM (test code = 6.3 mg/dL 8.7-10.4 L Please note: New CA) Reference Range Dec 2020 BASIC METABOLIC [id number] 11:50:00 Test Item Value Reference Range Interpretation [...] CA) Reference Range Dec 2020 CBC W/AUTO [id number] 11:25:00 Test Item Value Reference Range Interpretation [...] = BA#) 0.05 x10 3/uL 0.0-0.20 N [id number] 14:50:00 Test Item Value Reference Range Interpretation Comments GLUBED (test code = GLUBED) 109 MG/DL 70-105 H [id number] 08:36:00 Test Item Value Reference Range Interpretation Comments POTASSIUM (test code = K) 4.9 mmol/L 3.5-5.1 N COVID Asymptomatic IH [id number] 10:58:00 Test Item Value Reference Interpretation Comments [...] i ts performancechar acteristics were determined by [facility]. Thi s test has notbeen FDA kyleigh [...] setting? Unknown? NoAge at collection: YBASIC METABOLIC [id number] 12:16:00 Test Item Value Reference Range Interpretation [...] code = mg/dL 8.7-10.4 CA) BASIC METABOLIC [id number] 12:16:00 Test Item Value Reference Range Interpretation [...] CA) Reference Range Dec 2020 CBC W/AUTO [id number] 11:54:00 Test Item Value Reference Range Interpretation [...] 0.0-0.20 N - CT ABD PELVIS W/O [id number] 16:57:00 [facility] VLADIM[facility] : 1970 Sex: M Name: VLADIMIR MAGUIRE [facility] : 1970 Age/S: 50 / M [address] [place] [address] Blvd Unit #:[id number] Loc: [place] [address] Phys: Bteh Frankel MD Acct: [id number] Dis Date: Status: REG CLI PHONE #: [phone] Exam Date: 02/08/2021 161 FAX #: [phone] Reason: T85.691A, MALFUNCTION OF PD CATHETER. EXAMS: CPT CODE: [id number] CT ABD PELVIS W/O CONT 40421 CT abdomen and pelvis without contrast dated [...] is no evidence of left renal collecting systemobstruction or calcified renal collecting system stone. The [...] demonstrates no evidence of diverticular disease or acute inflammatory wall [...] Report (CONTINUED) Name: VLADIMIR MAGUIRE [facility] : 1970 Age/S: 50 / M [address] [place], [place] [address]vd Unit #: [id number] Loc: [place] [address] Phys: Beth Frankel MD Acct: [id number] Dis Date: Status: REG CLI PHONE #: [phone] Exam Date: 02/08/2021 1617 FAX #: [phone] Reason: T85.691A, MALFUNCTION OF PD CATHETER. EXAMS: CPT CODE: [id number] CT ABD PELVIS W/O CONT 00855 (Continued) retroperitoneal mass or adenopathy. PELVIS: Bladder [...] Lupe(R) CTDI: DLP: Trnscb Date/Time: 02/08/2021 (1657) t.DMM Orig Print D/T: S: 02/08/2021 (1700) PAGE 2 Signed [id number] 16:25:00 Test Item Value Reference Range Interpretation Comments GLUBED (test code = 108 MG/DL 70-110 N Performe d by certified GLUBED) board operator at [facility] BASIC METABOLIC [id number] 13:08:00 Test Item Value Reference Range Interpretation [...] code = 8.4 mg/dL 8.0-10.5 N CA) [id number] 13:01:00 Test Item Value Reference Range Interpretation Comments GLUBED (test code = 66 MG/DL 70-110 L Performe d by certified GLUBED) board operator at [facility] CBC W/AUTO [id number] 12:58:00 Test Item Value Reference Range Interpretation [...] (test code NO = MDIFF) CBC W/AUTO [id number] 12:55:00 Test Item Value Reference Range Interpretation [...] (test code = MDIFF) Novel Coronavirus 2018 [id number] 06:55:00 Test Item Value Reference Range Interpretation [...] for the identification of SARS-CoV-2 RNA usingthe Fengguo M2000 Sy stem under the FDA Emergen cy UseAuthorizatio n. The testing is perf ormed by personneltraine d in the procedures for the Tadeo M2000 molecular diagnostic SARS-CoV-2 assa y in vitro. BASIC METABOLIC [id number] 12:58:00 Test Item Value Reference Range Interpretation [...] = 9.2 mg/dL 8.0-10.5 N CA) PROTHROMBIN [id number] 12:47:00 Test Item Value Reference Range Interpretation Comments PROTHROMBIN TIME 10.7 SECONDS 9.3-12.9 N PATIENT (test code = PTP) INTERNATIONAL NORMAL 1.0 0.8-1.2 N TARGE T INR BY RATIO [...] (to prevent recurrent infar ct). THROMBOPLASTIN TIME [id number] 12:47:00 Test Item Value Reference Range Interpretation Comments THROMBOPLASTIN TIME 36.5 Seconds 25.0-39.5 N Therape utic Range: PARTIAL (test code = 50.4 - 88.3 Seconds PTT) Effective 02/19/2019 CBC W/AUTO [id number] 12:35:00 Test Item Value Reference Range Interpretation [...] code NO = MDIFF) - XR ABDOMEN [id number] 15:08:00 [facility] : 1970 Sex: M FAX: Rosmery Cohen MD Ralph: St: PRE FAX: Beth Correia MD [phone] Name: VLADIMIR MAGUIRE [facility] : 1970 Age/S: 50/M [address] [facility] Unit #: [id number] Loc: E.[place], [place] [address] Acct: [id number] Dis Date: Status: PRE CLI PHONE #: [phone] Exam Date: 11/26/2020 [facility]6 FAX #: [phone] Reason: PERITONEAL DILAYSIS CATHETER DYSFUNCTION EXAMS: CPT CODE: [id number] XR ABDOMEN 2V 15641 Location code: H5 Abdomen Two Views Indication: [...] Impression: 1. Right pelvic peritoneal dialysis catheter. Electronically Signedby Octavio Alvarez on 11/26/2020 at 1508 Reported and signed by: José Luis Alvarez M.D. PAGE 1 Signed Report (CONTINUED) FAX: Rosmery Cohen MD Ralph: St: PRE FAX: Beth Correia MD [phone] Name: VLADIMIR MAGUIRE [facility] : 1970 Age/S: 50/M [address] [facility] Unit #: [id number] Loc: [place], [place]: [place] [address] Acct: [id number] Dis Date: Status: PRE CLI PHONE #: [phone] Exam Date: 11/26/2020 1456 FAX #: [phone] Reason: PERITONEAL DILAYSIS CATHETER DYSFUNCTION EXAMS: CPT CODE: [id number] XR ABDOMEN 2V 48530 <Continued> CC: Rosmery Braun MD; Beth Frankel MD Technologist: SOHAIL BERNARD Trnscrd Date/Time/By: 11/26/2020 (1026) : By: Tarcy PAGE 2 Signed Report FAX: Rosmery Cohen MD Ralph: St: PRE FAX: Beth Correia MD [phone] Name: VLADIMIR MAGUIRE [facility] : 1970 Age/S: 50/M [address] Unit #: [id number] Loc: [employer] [place], [place]: [place] [address] Acct: [id number] Dis Date: Status: PRE CLI PHONE #: [phone] Exam Date: 11/26/2020 1456 FAX #: [phone] Reason: PERITONEAL DILAYSIS CATHETER DYSFUNCTION EXAMS: CPT CODE: [id number] XR ABDOMEN 2V 69064 <Continued>Orig Print D/T: S: 11/26/2020 (1514) PAGE 3 Signed Report- XR ABDOMEN 1 [id number] 14:29:00 [facility] : 1970 Sex: M FAX: Rosmery Cohen MD Ralph: C[address] St: REG Name: VLADIMIR MAGUIRE [facility] : 1970 Age/S: 50/M [address] Unit #: [id number] Loc: [employer] [place], [place] Phys: EDDOC, GENERIC FOR EDM [address] Acct: [id number] Dis Date: Status: REG CLI PHONE #: [phone] Exam Date: 11/13/2020 1352 FAX #: [phone] Reason: PD CATH MALFUNCTION EXAMS: CPT CODE: [id number] XR ABDOMEN 1 V 45575 EXAM: ABDOMEN ONE VIEW INDICATION: PD CATH [...] thepelvis. There is a possible kink. at 1422 Reported and signed by: Donna Mullins M.D. CC: Rosmery Braun MD Technologist: ANA BARRETO Trnscrd Date/Time/By: 11/13/2020 (5689) : By: [email or web address] PAGE 1 Signed Report FAX: Rosmery Cohen MD Ralph: St: REG Name: VLADIMIR MAGUIRE [facility] : 1970 Age/S: 50/M [address] [facility] Unit #: [id number] Loc: JOURDAN [place], [place] Phys: EDDOC, GENERIC FOR EDM [address]256 Acct: [id number] Dis Date: Status: REG CLI PHONE #: [phone] Exam Date: 11/13/2020 1352 FAX #: [phone] Reason: PD CATH MALFUNCTION EXAMS: CPT CODE: [id number] XR ABDOMEN 1 V 00399 <Continued> Orig Print D/T: S: 11/13/2020 (1432) PAGE 2 Signed Report [id number] 08:30:00 Test Item Value Reference Range Interpretation [...] may amelia y by method. BASIC METABOLIC [id number] 17:02:00 Test Item Value Reference Range Interpretation [...] code = 8.5 mg/dL 8.0-10.5 N CA) [id number] 17:02:00 Test Item Value Reference Range Interpretation [...] y by method. - XR CHEST 1 [id number] 16:17:00 [facility] : 1970 Sex: M FAX: Tray Donald [phone] Ralph: St: ADM FAX: Rosmery Cohen MD Name: VLADIMIR MAGUIRE [facility] : 1970 Age/S: 50/M [address] [place] [address] Unit #: [id number] Loc: [address] [place] [address] Phys: DOES_NOT KNOW Acct: [id number] Dis Date: Status: ADM IN PHONE #: [phone] Exam Date: 12/27/2019 1616 FAX #: [phone] Reason: PAIN EXAMS: CPT CODE: [id number] XR CHEST 1 V 56924 XR CHEST 1 VIEW HISTORY: PAIN. COMPARISON: CXR 10/25/2020. FINDINGS: Expiratory portable exam. The heart and vascular markings are stable. Stable elevation of the left hemidiaphragm with stable left basilar opacity suggestive of atelectasis. Lung murray are otherwise stable. No significant skeletal abnormality. No pleural abnormality. IMPRESSION: Elevated left hemidiaphragm with stable left basilar opacitysuggestive of atelectasis. at 1617 Reported and signed by: Jose R Rueda M.D. CC: Tray Linder MD; Rosmery Braun Technologist: FUAD Green) Drew Date/Time/By: 10/26/2020 (4073) : By: [email or web address] Orig Print D/T: S: 10/26/2020 (6891) PAGE 1 Signed Report- US ABDOMEN [id number] 14:11:00 [facility] : 1970 Sex: M Name: VLADIMIR MAGUIRE [facility] : 1970 Age/S: 50 / M [address] [place] [address] Unit #: [id number] Loc: [place] [address] Phys: Harpal Zamarripa MD Acct: [id number] Dis Date: Status: ADM IN PHONE #: [phone] Exam Date: 10/26/2020 1157 FAX #: [phone] Reason: POSSIBLE PERTITONEAL FLUID INFECTION, RULE OUT. EXAMS: CPT CODE: [id number] ABDOMEN LTD 78886 CLINICAL HISTORY: Possible peritoneal fluid infection,. Do [...] MD; Rosmery Braun Technologist: Shira Fraire RDMS(AB) Veliab Date/Time: 10/26/2020 (141) Chuck Orig Print D/T: S: 10/26/2020 (1954) Probe: PAGE 1 Signed ReportPROTHROMBIN [id number] 13:56:00 Test Item Value Reference Range Interpretation [...] (to prevent recurrent infar ct). THROMBOPLASTIN TIME [id number] 13:56:00 Test Item Value Reference Range Interpretation Comments THROMBOPLASTIN TIME PARTIAL (test Seconds 25.0-39.5 code = PTT) PROTHROMBIN [id number] 13:56:00 Test Item Value Reference Range Interpretation [...] (to prevent recurrent infar ct). THROMBOPLASTIN TIME [id number] 13:56:00 Test Item Value Reference Range Interpretation Comments THROMBOPLASTIN TIME 33.8 Seconds 25.0-39.5 N Therape utic Range: PARTIAL (test code = 50.4 - 88.3 Seconds PTT) Effective 02/19/2019 BASIC METABOLIC [id number] 08:02:00 Test Item Value Reference Range Interpretation [...] 8.0-10.5 N CA) - XR CHEST 2 [id number] 17:16:00 [facility] : 1970 Sex: M FAX: Tray Donald [phone] Ralph: St: ADM FAX: Rosmery Cohen MD FAX: Antonino Huff MD [phone] Name: VLADIMIR MAGUIRE [facility] [place] : 1970 Age/S: 50/M [address] [place] [address] Blvd Unit #: [id number] Loc: [address] [place] [address] Phys: Antonino Huff MD Acct: [id number] Dis Date: Status: ADM IN PHONE #: [phone] Exam Date: 10/25/2020 1627 FAX #: [phone] Reason: ? opacity EXAMS: CPT CODE: [id number] XR CHEST 2 V 30369 Chest, 2 views dated 10/25/2020. HISTORY: ? [...] MD Technologist: RT Peter(Toney) Trnscrd Date/Time/By: 10/25/2020 (6678) : By: Castro Orig Print D/T: S: 10/25/2020(1725) PAGE 1 Signed ReportAG HEPATITIS B [id number] 16:37:00 Test Item Value Reference Range Interpretation Comments AG HEPATITIS B SURFACE NON REACTIVE INDEX NonReactive (test code = HBSAG) - XR SHOULDER 2 + V [id number] 13:12:00 [facility] : 1970 Sex: M FAX: Tray Donald [phone] Ralph: St: ADM FAX: Rosmery Cohen MD FAX: Antonino Huff MD [phone] Name: VLADIMIR MAGUIRE [facility] : 1970 Age/S: 50/M [address] [place] [address] Unit #: [id number] Loc: G[address] [place] [address] Phys: Antonino Huff MD Acct: [id number] Dis Date: Status: ADM IN PHONE #: [phone] Exam Date: 10/25/2020 1253 FAX #: [phone] Reason: Left shoulderregion pain EXAMS: CPT CODE: [id number] XR SHOULDER 2 + [place] LT [address] PROCEDURE: Left Shoulder Radiographs. Clinical Indication: Left [...] MD; Rosmery Braun; Antonino Huff MD Technologist: Pamela Blake RT(R) Trnscrd Date/Time/By: 10/25/2020 (564) : By: MartinTDO Orig Print D/T: S: 10/25/2020 (9366) PAGE 1 Signed ReportCOVID 19 Asymptomatic IH [...] COMMENTS: If not done this admissionC REACTIVE [id number] 23:38:00 Test Item Value Reference Range Interpretation Comments C REACTIVE PROTEIN (test code = 19.0 mg/L <10.0 H CRP) CBC W/AUTO [id number] 22:45:00 Test Item Value Reference Range Interpretation [...] REQUIRED (test code NO = MDIFF) LACTIC [id number] 22:35:00 Test Item Value Reference Range Interpretation Comments LACTIC ACID (test code = LACT) 0.9 mmol/L 0.4-1.9 N Coronavirus 2018 nCoV [id number] 20:19:00 Test Item Value Reference Range Interpretation Comments Coronavirus 2019 Negative NEGATIVE Negative re sults should be nCoV Bedside (test treated a s presumptive and code = ifinconsistent with MPAQL97MMRNO) clinical signs and symptoms, or ne cessaryfor patient managem ent, should be tested with an alternativemole cular assay. Negative result s do not preclude ZTXO-KxC-4mijwl tion and should not be u sed as the sole basis forp atient management deci sions. Negative result s should beconsidered in the context of a patient's recent exposures,histo ry, presence of clinical sig ns and symptoms consis tentwith COVID-19. BASIC METABOLIC [id number] 18:28:00 Test Item Value Reference Range Interpretation [...] L Specimen comments: Clean CatchHEPATIC FUNCTION PANEL [id number] 18:28:00 Test Item Value Reference Range Interpretation [...] N code = ALKP) Specimen comments: Clean [id number] 18:28:00 Test Item Value Reference Range Interpretation Comments LIPASE (test code = LIP) 135 Units/L 65.0-230.0 N Specimen comments: Clean [id number] 18:28:00 Test Item Value Reference Range Interpretation Comments TROPONIN-I (test 0.02 NG/ML 0.00-0.06 N REFERENCE R GUTIERREZ TROPONIN code = TROPI) I HEALTHY KEYA VIDUALS: <0.06 ng/mL R/O ISCHEMIA: 0.07 - 0.60 ng/mL CUT-OFF R GUTIERREZ FOR AMI: 0.60 - 1.5 ng/mL Specimen comments: Clean Catch- CT ABD PELVIS W/O [id number] 18:26:00 [facility] : 1970 Sex: M FAX: Rosmery Cohen MD Ralph: St: REG FAX: Mallory Gan MD [phone] Name: VLADIMIR MAGUIRE [facility] : 1970 Age/S: 50/M [address] [facility] [employer] [facility] Unit: [id number] Loc: E.ERS2 [place], [place]: [place] [address] Acct: [id number] Dis Date: Status: REG ER PHONE #: [phone] Exam Date: 10/24/2020 1803 FAX #: [phone] Reason: abd pain, recent hernia repair and perit dialys EXAMS: CPT CODE: [id number] CT ABD PELVIS W/O CONT 20009 CT ABDOMEN AND PELVIS W/O CONTRAST Location code: B2 CLINICAL INDICATIONS: Abdominal pain. Recent hernia repair TECHNIQUE: Volumetric acquisition ofabdomen from the level of the domes of the diaphragm to the symphysis pubis using 3 mm collimation without the use of intravenous or oral contrast. Axial and coronal images were reviewed. Dose loweringtechnique with automatic exposure control utilized. COMPARISON: 09/29/2020 [...] with mild induration within the soft tissues present.No destructive changes within the bones identified. IMPRESSION: 1. No acute intra-abdominal findingsdetected. PAGE 1 Signed Report (CONTINUED) FAX: Rosmery Cohen MD Ralph: St: REG FAX: Mallory Gan MD [phone] Name: VLADIMIR MAGUIRE [facility] : 1970 Age/S: 50/M [address] [facility] Unit: [id number] Loc: [address] Phys: [place] [address] Acct: [id number] Dis Date:Status: REG ER PHONE #: [phone] Exam Date: 10/24/2020 180 FAX #: [phone] Reason: abd pain, recent hernia repair and perit dialys EXAMS: CPT CODE: [id number] CT ABD PELVIS W/O CONT 40189 <Continued> 2. Peritoneal dialysis catheter is in good position. Atrophic kidneys. 3. Mildly elevated left hemidiaphragm and bibasilar atelectasis. at 1826 Reported and signed by: Francisco Pack M.D. CC: Rosmery Braun MD; Mallory Gan MD Technologist: JANIE MC; GRISELDA CHACON Trnscrd Dt/Tm: 10/24/2020 (1825) t.[email or web address].[email or web address] Orig Print D/T: S: 10/24/2020 (9 PAGE 2 Signed ReportBASIC METABOLIC [id number] 18:19:00 Test Item Value Reference Range Interpretation [...] 8.0-10.5 Specimen comments: Clean CatchHEPATIC FUNCTION PANEL [id number] 18:19:00 Test Item Value Reference Range Interpretation [...] 50.0-136.0 code = ALKP) Specimen comments: Clean [id number] 18:19:00 Test Item Value Reference Range Interpretation Comments LIPASE (test code = LIP) Units/L 65.0-230.0 Specimen comments: Clean [id number] 18:19:00 Test Item Value Reference Range Interpretation Comments TROPONIN-I (test code = TROPI) NG/ML 0.00-0.06 Specimen comments: Clean Catch- XR CHEST 1 [id number] 18:14:00 [facility] : 1970 Sex: M FAX: Rosmery Cohen MD Ralph: St: REG FAX: Mallory Gan MD [phone] Name: VLADIMIR MAGUIRE [facility] : 1970 Age/S: 50/M [address] [facility] Unit #: [id number] Loc: [address] Phys: [place] [address] Acct: [id number] Dis Date: Status: REG ER PHONE #: [phone] Exam Date: 10/24/20201810 FAX #: [phone] Reason: Abdominal Pain EXAMS: CPT CODE: [id number] XR CHEST1 V 34779 Site ID: [id number] HISTORY: Abdominal pain, bleeding [...] 1 Signed Report FAX: Rosmery Cohen MD Ralph: St: REG FAX: Mallory Gan MD [phone] Name: [facility]UIRE [facility] 1970 Age/S: 50/M [address] [employer] [facility] Unit #: [id number] Loc: [address] [place]: [place] [address] Acct: [id number] Dis Date: Status: REG ER PHONE #: [phone] Date: 10/24/20201810 FAX #: [phone] Reason: Abdominal Pain EXAMS: CPT CODE: [id number] XRCHEST 1 V 98380 <Continued> Orig Print D/T: S: 10/24/2020 (1816) PAGE 2 Signed ReportPROTHROMBIN [id number] 18:10:00 Test Item Value Reference Range Interpretation Comments PROTHROMBIN TIME 11.4 SECONDS 9.9-12.8 N PATIENT (test code = PTP) INTERNATIONAL NORMAL 1.0 0.89-1.14 N THE INR IS TO BE USED RATIO (test code = ONLY FOR MONITORING INR) ORAL ANTICOAGULANTTH ERAPY. THE FOLLOWING A RE SUGGESTED RANGE S FROM [facility] LEGE OF CHEST PHYSICIANS:KEYA CATION INR VALUEPROPHY [...] Clean CatchIs patient on anticoagulants? NTHROMBOPLASTIN TIME [id number] 18:10:00 Test Item Value Reference Range Interpretation [...] = 0.00 X10 3uL 0.00-0.01 N NRBC#) [id number] 06:12:00 Test Item Value Reference Range Interpretation Comments GLUBED (test code = 97 MG/DL 70-110 N Performe d by certified GLUBED) board operator at [facility] [id number] 11:04:00 Test Item Value Reference Range Interpretation Comments GLUBED (test code = 122 MG/DL 70-110 H Performe d by certified GLUBED) board operator at [facility] CBC W/AUTO [id number] 08:29:00 Test Item Value Reference Range Interpretation [...] (test code NO = MDIFF) BASIC METABOLIC [id number] 08:17:00 Test Item Value Reference Range Interpretation [...] code = 8.5 mg/dL 8.0-10.5 N CA) [id number] 08:04:00 Test Item Value Reference Range Interpretation Comments GLUBED (test code = 94 MG/DL 70-110 N Performe d by certified GLUBED) board operator at [facility] - XR T-SPINE [id number] 18:08:00 [facility] : 1970 Sex: M FAX: Mery Crane MD [phone] Ralph: St: ADM FAX: Seymour Garner [phone] FAX: Rosmery Cohen MD FAX: Beth Correia MD [phone] Name: VLADIMIR MAGUIRE [facility] : 1970 Age/S: 50/M [address] [place] [address] Unit #: [id number] Loc: [address] [place] [address] Phys: Seymour Osman PA-C Acct: [id number] Dis Date: Status: ADM IN PHONE #: [phone] Exam Date: 10/21/2020 174 FAX #: [phone] Reason: point tenderness around T7-T8 after fall-back h EXAMS: CPT CODE: [id number] XR T-SPINE 3V 13786 Procedure: Thoracic Spine Radiographs. Clinical Indication: Mid [...] Technologist: Oly Madden, RT(R); Jacqueline Espitia RT(R) Trntnrd Date/Time/By: 10/21/2020 (1807) : By: Ryne Orig Print D/T: S: 10/21/2020 (1810) PAGE 1 Signed [id number] 18:03:00 Test Item Value Reference Range Interpretation Comments GLUBED (test code = 126 MG/DL 70-110 H Performe d by certified GLUBED) board operator at [facility] - XR ABDOMEN 1V (KUB)2020-10-21 17:46:00 [facility] : 1970 Sex: M FAX: Estiven Call MD [phone] Ralph: St: [facility] FAX: Mery Crane MD [phone] FAX: Rosmery Cohen MD FAX: Beth Correia MD [phone] Name: VLADIMIR MAGUIRE [facility] [place] : 1970 Age/S: 50/M [address] [place] [address] Unit #: [id number] Loc: [address] [place] [address] Phys: Estiven Call MD Acct: [id number] Dis Date: Status: ADM IN PHONE #: [phone] Exam Date: 10/21/2020 174 FAX #: [phone]: n/v, abdominal pain EXAMS: CPT CODE: [id number] XR ABDOMEN 1V (KUB 40957 Procedure: Abdominal Radiograph. Clinical Indication: Nausea and vomiting, abdominal pain, malfunction of peritoneal dial ysis catheter. Comparison: Abdominal radiograph 09/07/2017. FINDINGS: A [...] in the pelvis. SL: OCO-H at 1746 Reportedand signed by: Clayton Vasquez M.D. CC: Estiven Call MD; Mery Crane MD; Rosmery Braun; Beth Frankel MD Technologist: Oly Madden, RT(R); Jacqueline Espitia RT(R) Trntnrd Date/Time/By: 10/21/2020 (174) : By: MartinTDO Orig Print D/T: S: 10/21/2020 (3832) PAGE 1 Signed Report [id number] 17:21:00 Test Item Value Reference Range Interpretation Comments GLUBED (test code = 101 MG/DL 70-110 N Performe d by certified GLUBED) board operator at [facility] - XR CHEST 1 [id number] 17:06:00 [facility] : 1970 Sex: MFAX: Estiven Call MD [phone] Ralph: St: [facility] FAX: Mery Crane MD [phone] FAX: Rosmery Cohen MD FAX: Beth Correia MD [phone] Name: VLADIMIR MAGUIRE [facility] [place] : 1970 Age/S: 50/M [address] [place] [address] Blvd Unit #: [id number] Loc: [address] [place] [address] Phys: Estiven Call MD Acct: [id number] Dis Date: Status: ADM IN PHONE #: [phone] Exam Date: 10/21/2020 1654 FAX #: [phone] Reason: recent fall left sided rib hurting EXAMS: CPT CODE: [id number] XR CHEST 1 V 48682 Chest, single view dated 10/21/2020. HISTORY: Left [...] By: Castro Orig Print D/T: S: 10/21/2020 (9661) PAGE 1 Signed [id number] 12:18:00 Test Item Value Reference Range Interpretation Comments GLUBED (test code = 85 MG/DL 70-110 N Performe d by certified GLUBED) board operator at [facility] ACUTE HEPATITIS [id number] 09:59:00 Test Item Value Reference Range Interpretation [...] is recommended if clinicallyindic ated. BASIC METABOLIC [id number] 08:02:00 Test Item Value Reference Range Interpretation [...] code = 8.2 mg/dL 8.0-10.5 N CA) [id number] 08:02:00 Test Item Value Reference Range Interpretation Comments PHOSPHOROUS (test code = PHOS) 8.0 MG/DL 2.5-4.9 H [id number] 08:02:00 Test Item Value Reference Range Interpretation Comments MAGNESIUM (test code = MAG) 2.26 mg/dL 1.80-2.40 N CBC W/AUTO [id number] 06:59:00 Test Item Value Reference Range Interpretation [...] DIFF REQUIRED (test code NO = MDIFF) [id number] 21:48:00 Test Item Value Reference Range Interpretation Comments GLUBED (test code = 140 MG/DL 70-110 H Performe d by certified GLUBED) board operator at [facility] TSH REFLEX TO [id number] 17:15:00 Test Item Value Reference Range Interpretation Comments TSH REFLEX TO FT4 (test code = 1.59 IU/mL 0.42-5.47 N TSHREFLEX) HGBA1C%2020-10-20 17:06:00 Test Item Value Reference Range Interpretation Comments HGBA1C% (test code = HGBA1C%) 5.2 %A1C 4.8-6.0 N [id number] 16:37:00 Test Item Value Reference Range Interpretation Comments GLUBED (test code = 144 MG/DL 70-110 H Performe d by certified GLUBED) board operator at [facility] [id number] 11:31:00 Test Item Value Reference Range Interpretation Comments GLUBED (test code = 128 MG/DL 70-110 H Performe d by certified GLUBED) board operator at [facility] CBC W/AUTO [id number] 08:46:00 Test Item Value Reference Range Interpretation [...] (test code NO = MDIFF) BASIC METABOLIC [id number] 08:07:00 Test Item Value Reference Range Interpretation [...] code = 8.7 mg/dL 8.0-10.5 N CA) [id number] 07:46:00 Test Item Value Reference Range Interpretation Comments GLUBED (test code = 114 MG/DL 70-110 H Performe d by certified GLUBED) board operator at [facility] Novel Coronavirus 2019 [id number] 21:59:00 Test Item Value Reference Range Interpretation [...] in vitro. COMMENTS: N- XR CHEST 2 [id number] 10:50:00 [facility] : 1970 Sex: M FAX: Rosmery Cohen MD Ralph: St: PRE FAX: Beth Correia MD [phone] FAX: Tamika Hadley N Name: VLADIMIR MAGUIRE [facility] : 1970 Age/S: 50/M [address] [place] [address] Unit #: [id number] Loc:[place] [address] Phys: Tamika Hadley NP Acct: [id number] Dis Date: Status: PRE SD PHONE #: [phone] Exam Date: 10/16/2020924 FAX #: [phone] Reason: PRE-OP HERNIA REPAIR EXAMS:CPT CODE: [id number] XR CHEST 2 V 52458 EXAM: CHEST TWO VIEW HISTORY: 50-year-old male for preoperative evaluation, hernia repair COMPARISON: Chest radiograph 09/07/2017 FINDINGS: Elevated left hemidiaphragm. The lungs are clear. The cardiomediastinal silhouette is normal for projection. Aortic locations. No acute osseous abnormality. Cervical spinal hardware partially visualized. IMPRESSION: 1. No acute cardiopulmonary abnormality. SL: [id number] at 1050 Reported and signed by: Lucia Montano M.D. CC: Rosmery Braun; Beth Frankel MD;Tamika Hadley NP Technologist: Nichole Maldonado, RT(Toney) Trnscrd Date/Time/By: 10/16/2020 (9113) : By: [email or web address] Orig Print D/T: S: 10/16/2020 (4800) PAGE 1 Signed ReportCBC W/AUTO [id number] 10:39:00 Test Item Value Reference Range Interpretation [...] REQUIRED (test code NO = MDIFF) PLT [id number] 10:39:00 Test Item Value Reference Range Interpretation Comments PLATELET ESTIMATE (test code 100-125 THOUSAND ADEQUATE = PLTEST) PLATELET MORPHOLOGY (test LARGE PLATELETS code = PLTMORPH) BASIC METABOLIC [id number] 10:19:00 Test Item Value Reference Range Interpretation [...] 8.4 mg/dL 8.0-10.5 N CA) CBC W/AUTO [id number] 09:57:00 Test Item Value Reference Range Interpretation [...] REQUIRED (test code NO = MDIFF) PLT [id number] 09:57:00 Test Item Value Reference Range Interpretation Comments PLATELET ESTIMATE (test code = THOUSAND ADEQUATE PLTEST) CBC W/AUTO [id number] 09:56:00 Test Item Value Reference Range Interpretation [...] REQUIRED (test code NO = MDIFF) PLT [id number] 09:56:00 Test Item Value Reference Range Interpretation Comments PLATELET ESTIMATE (test code = THOUSAND ADEQUATE PLTEST) CBC W/AUTO [id number] 09:49:00 Test Item Value Reference Range Interpretation [...] REQUIRED (test code = MDIFF) BASIC METABOLIC [id number] 12:52:00 Test Item Value Reference Range Interpretation [...] 8.3 mg/dl 8.0-10.5 N CA) CBC W/AUTO [id number] 12:42:00 Test Item Value Reference Range Interpretation [...] N NRBC#) - CT ABD PELVIS W/O [id number] 08:55:00 [facility] : 1970 Sex: M FAX: Rosmery Cohen MD Ralph: St: [facility] FAX: Beth Correia MD [phone] Name: VLADIMIR MAGUIRE [facility] : 1970 Age/S: 50/M [address] [facility] Unit: [id number] Loc: [place], [place]: [place] [address] Acct: [id number] Dis Date: Status: REG CLI PHONE #: [phone] Exam Date: 09/29/2020 0834 FAX #: [phone] Reason: RIGHT GROIN PAIN EXAMS: CPT CODE: [id number] CT ABDPELVIS W/O CONT 94962 HISTORY: Right inguinal pain, right lower quadrant [...] No pericardial or pleural fluid can be found.Elevated left diaphragm. Homogeneous density seen for the liver and spleen. Prominent vascular calcifications have developed in the splenic artery. The right kidney is surgically absent. Left kidney with chronic stranding or renal disease but no stones or hydronephrosis. Normal aortic diameter. Gallbla dder with normal position. Bowel loops are free of obstruction. Normal stool content. Appendix is normal with its tip lying at the liver tip area. The study of the pelvis shows the bladder intact. Prominent calcifications at the seminal vesicle vas deferens region. Small vessel calcifications prominent. A oval soft tissue density area seen within the distal inguinal canal maximum size 2.9 cm that mayrepresent a fluid collection. This seems small for [...] Signed Report (CONTINUED) FAX: Rosmery Cohen MD Ralph: St: REG FAX: Beth Correia MD [phone] ---- Name: PRESLEYVLADIMIR [facility] : 1970 Age/S: 50/M [address] [facility] Unit: [id number] Loc: [place]: [place] [address] Acct: [id number] Dis Date: Status: REG CLI PHONE #: [phone] Exam Date: 09/29/2020 0834 FAX #: [phone] Reason: RIGHT GROIN PAIN EXAMS: CPT CODE: [id number] CT ABD PELVIS W/O CONT 21713 <Continued> IMPRESSION: Limited Study. Normal appendix seen [...] Nathanael Pa M.D CC: Rosmery Braun MD; Addison Frankel MD Technologist: LISA WATKINS Trntnrd Dt/Tm: 09/29/2020 (0844) t.[email or web address].[email or web address] Orig Print D/T: S:09/29/2020 (1158 PAGE 2 Signed ReportBASIC METABOLIC PANEL 2020-09-17 [...] CA) 8.1 mg/dl 8.0-10.5 N CBC W/AUTO [id number] 06:29:00 Test Item Value Reference Range Interpretation [...] 0.00-0.01 N NRBC#) COVID 19 Asymptomatic IH [id number] 05:55:00 Test Item Value Reference Range Interpretation Comments COVID 19 NEGATIVE NEGATIVE Negative result s should be Asymptomatic IH AG treated a s presumptive and (test code = ifinconsistent with COVNONPUIAG) clinical signs and symptoms, or ne cessaryfor patient managem ent, should be tested with an alternativemole cular assay. Negative results do not preclude HOPJ-PuM-5xsfpj tion and should not be u sed as the sole basis forp atient management deci sions. Negative result s should beconsidered in the context of a pa tient's recent exposure s,history, presence of cli nical signs and symptoms consistentwith COVID-19. LACTIC [id number] 09:23:00 Test Item Value Reference Range Interpretation Comments LACTIC ACID (test code = LACT) 1.0 MMOL/L 0.4-2.0 N BASIC METABOLIC [id number] 09:11:00 Test Item Value Reference Range Interpretation [...] 8.2 mg/dl 8.0-10.5 N CA) CBC W/AUTO [id number] 09:06:00 Test Item Value Reference Range Interpretation [...] 0.00 X10 3uL 0.00-0.01 N NRBC#) SURGICAL [id number] 14:26:00 RUN DATE: 02/21/20 [facility] - LAB PAGE 1 RUN TIME: 1427 Specimen Inquiry RUN USER: INTERFACE ------- -----PATIENT: VLADIMIR MAGUIRE LOC: [place] U #: [id number] AGE/SX: 49/M ROOM: RE02/20/20[facility] DR: Saroj Coates MD : 66 BED: DIS: STATUS: [facility] TLOC: SPEC #: [id number] RECD: 02/20/20 STATUS: NEIL FLOWER #: [id number] BENEDICTO: 02/20/[address] [facility] [address]: Saroj Coates MD ENTERED: 02/20/20 SP TYPE: SURGOTHR DR: ORDERED: PATHGM3, PATH SPEC, H E STAIN HISTOLOGY: TISSUE ID BLK PCS GHADA LEV / PROCEDURE DISP OSITION ____ ___ ___ ___ ___ PILONIDAL CYST [...] of a sandoval skin ellipse which measures 6.2x 1.7 which is excised to a depth of 2.5 cm. There is a crease down the middle of the skin ellipse. Near one area of the deep margin, there is a defect which may be associated with a subcutaneous tissue cyst or lesion. The specimen is unoriented. The margins are inked black. The specimen is serially se ctioned. In the midportion of the specimen is a hemorrhagic area in the deep dermis/subcutaneous tissue which may represent a portion of cyst or abscess which measures 1 x 0.5 cm. A separate fibrous area with small foci of hemorrhage is noted in the deep dermis/subcutaneous tissue which measures approximately 1 x 1 x 1 cm. Calender Wind Up Tender sections are submitted as follows: SECTION CODE: CONTINUED ON NEXT PAGE RUN DATE: 02/21/20 [facility] - LAB PAGE 2 RUN TIME: 1427 Specimen Inquiry RUN USER: INTERFACE SPEC #: [id number] PATIENT: VLADIMIR MAGUIRE #[id number] (Continued) GROSS DESCRIPTION (Continued) A1-A2: First described small area A3-A5: Larger second described nodule RAB/th MICROSCOPIC DESCRIPTION Microscopic performed. Signed SIGNATURE ON FILE Rosemarie Ryder MD 02/21/20 1426 END OF REPORT [id number] 13:17:00 Test Item Value Reference Range Interpretation Comments GLUBED (test code = GLUBED) 101 MG/DL 70-105 N BASIC METABOLIC [id number] 06:39:00 Test Item Value Reference Range Interpretation [...] 8.8 mg/dL 8.8-10.2 N CA) CBC W/AUTO [id number] 06:35:00 Test Item Value Reference Range Interpretation [...] = BA#) 0.05 x10 3/uL 0.0-0.20 N [facility] [id number] 17:02:00 Test Item Value Reference Range Interpretation Comments Hgb A1C (test code = Hgb A1C) 5.8 [facility] QNDSDBRMI9136-55-71 17:02:00 Test Item Value Reference Range Interpretation Comments Hgb A1C (test code = Hgb A1C) 5.8 [facility] VCBVXXOJI6134-27-90 17:02:00 Test Item Value Reference Range Interpretation Comments Hgb A1C (test code = Hgb A1C) 5.8 [facility]OKZ[facility]DFT7293-79-31 16:58:00 Test Item Value Reference Range Interpretation Comments MCH (test code = MCH) 27.0 pg 27.0-31.0 [facility]VpgfojuCGJGBGEWCD7834-54-12 16:58:00 Test Item Value Reference Range Interpretation Comments MCHC (test code = MCHC) 32.7 32.0-36.0 [facility] CenterCqocnxvFAWNWDSKWK2167-84-68 16:58:00 Test Item Value Reference Range Interpretation Comments RDW (test code = RDW) 15.7 11.5-14.5 [facility] CenterGumltmcJZVFIMJUIS3072-76-55 16:58:00 Test Item Value Reference Range Interpretation Comments MCV (test code = MCV) 82.5 80.0-94.0 [facility] CenterYjjcjwoHQZCLIPSFJ4124-03-03 16:58:00 Test Item Value Reference Range Interpretation Comments Hgb (test code = Hgb) 12.1 14.0-18.0 [facility] CenterJcwnkwnUARSOGDAFI5292-21-45 16:58:00 Test Item Value Reference Range Interpretation Comments RBC (test code = RBC) 4.49 4.70-6.10 [facility] CenterRlbgrsgHEYPKBSLEM1468-91-13 16:58:00 Test Item Value Reference Range Interpretation Comments WBC (test code = WBC) 10.7 3.7-10.4 [facility] CenterRmxbugyJMEKNYBQCQ8547-22-64 16:58:00 Test Item Value Reference Range Interpretation Comments Basophils (test code = 0.6 See_Comment [Aut omated message] The Basophils) system which ge nerated this result tra nsmitted reference range : <=1.0. The reference r gutierrez was not used to int erpret this result as normal/abnormal . [facility] CenterCqijrbdNYZXOUZEVO9216-70-18 16:58:00 Test Item Value Reference Range Interpretation Comments Eosinophils (test code = 4.6 See_Comment [A utomated message] The Eosinophils) system which ge nerated this result tra nsmitted reference range : <=4.0. The reference r gutierrez was not used to int erpret this result as normal/abnormal . [facility] CenterPicbfxaGVMVYKRBDO3595-37-11 16:58:00 Test Item Value Reference Range Interpretation Comments Neutrophils # (test code = Neutrophils 7.0 1.5-8.1 #) [facility] CenterGujxdzjPXKGSYQVME3469-19-35 16:58:00 Test Item Value Reference Range Interpretation Comments Lymphocytes # (test code = Lymphocytes 2.4 1.0-5.5 #) [facility] CenterHpwlhjkBLHEHERDXU7547-27-67 16:58:00 Test Item Value Reference Range Interpretation Comments Monocytes # (test code 0.8 See_Comment [Aut omated message] The = Monocytes #) system which generated this result tra nsmitted reference range : <=0.8. The reference r gutierrez was not used to int erpret this result as normal/abnormal . [facility]MD [employer] LRCUNTD6260-76-70 16:58:00 Test Item Value Reference Range Interpretation Comments Antibody Scrn (test Negative (07/12/18 11:58 code = Antibody Scrn) AM) [facility] [employer] BWRYBMJ1908-07-68 16:58:00 Test Item Value Reference Range Interpretation Comments ABO/Rh (test code = ABO/Rh) O POS [facility]WrmvrrkGHLFTPRQNKTH0491-58-69 16:58:00 Test Item Value Reference Range Interpretation Comments AGAP (test code = AGAP) 10.2 10.0-20.0 [facility] RegionDizmrbgMTMHCLBXNDCI7070-30-18 16:58:00 Test Item Value Reference Range Interpretation Comments eGFR (test code = eGFR) 19 [facility] RegionGpziwokYCSGHUIXSEAX2610-90-07 16:58:00 Test Item Value Reference Range Interpretation Comments Calcium Lvl (test code = Calcium Lvl) 8.0 8.5-10.5 [facility] RegionRwrawkmTPIPIACKULHR5049-74-52 16:58:00 Test Item Value Reference Range Interpretation Comments CO2 (test code = CO2) 26 24-32 [facility] RegionEvfxwcfVZUDDECTPFMQ4966-71-87 16:58:00 Test Item Value Reference Range Interpretation Comments Creatinine Lvl (test code = Creatinine 3.53 0.50-1.40 Lvl) [facility] RegionVtprdqxFNGDFSKNBCVA4534-07-55 16:58:00 Test Item Value Reference Range Interpretation Comments BUN (test code = BUN) 33 7-22 [facility] RegionOnefvtrBVHJJHVAQXHU3679-20-56 16:58:00 Test Item Value Reference Range Interpretation Comments Glucose Lvl (test code = Glucose Lvl) 86 70-99 [facility] RegionIciwlrcLFWHLRIIEYXG1670-49-50 16:58:00 Test Item Value Reference Range Interpretation Comments Chloride Lvl (test code = Chloride Lvl) 108 95-109 [facility] RegionReupztfIQJYQDCTSRDD3403-56-19 16:58:00 Test Item Value Reference Range Interpretation Comments Sodium Lvl (test code = Sodium Lvl) 139 135-145 [facility] CenterFbhiwiwIKCIKRFBBK7926-63-62 16:58:00 Test Item Value Reference Range Interpretation Comments Lymphocytes (test code = Lymphocytes) 22.5 20.0-40.0 [facility] RegionDsawtkfMMLUQRCXCDHM8677-27-71 16:58:00 Test Item Value Reference Range Interpretation Comments Potassium Lvl (test code = Potassium 5.2 3.5-5.1 Lvl) [facility] CenterRmtzsztMYMFGEQVFL0728-09-85 16:58:00 Test Item Value Reference Range Interpretation Comments PTT (test code = PTT) 34.8 s 22.9-35.8 [facility] CenterOtapdycAYKYAQYGZV3491-11-45 16:58:00 Test Item Value Reference Range Interpretation Comments INR (test code = INR) 0.94 1 0.85-1.17 [facility] CenterRgpiyqtKQLZGXZWOD8762-12-06 16:58:00 Test Item Value Reference Range Interpretation Comments PT (test code = PT) 12.6 s 12.0-14.7 [facility] CenterHeoovbuAXBCZSHEIG0324-05-06 16:58:00 Test Item Value Reference Range Interpretation Comments Platelet (test code = Platelet) 259 133-450 [facility] CenterDtlnmvjVHQJAWMIMV0736-79-85 16:58:00 Test Item Value Reference Range Interpretation Comments MPV (test code = MPV) 7.6 7.4-10.4 [facility] CenterGbbkbbwRQOXIZNLUP2176-30-23 16:58:00 Test Item Value Reference Range Interpretation Comments Hct (test code = Hct) 37.0 42.0-54.0 [facility] CenterKygylfuTCQIJMDJUX1600-51-42 16:58:00 Test Item Value Reference Range Interpretation Comments MCH (test code = MCH) 27.0 pg 27.0-31.0 [facility] CenterLozvafkPYTSXYGIXT5918-02-55 16:58:00 Test Item Value Reference Range Interpretation Comments MCHC (test code = MCHC) 32.7 32.0-36.0 [facility] CenterQhdndvwDYOZCKXIPL8376-37-00 16:58:00 Test Item Value Reference Range Interpretation Comments RDW (test code = RDW) 15.7 11.5-14.5 [facility] CenterKsevxguFOYXNZVIJG2605-65-60 16:58:00 Test Item Value Reference Range Interpretation Comments MCV (test code = MCV) 82.5 80.0-94.0 [facility] CenterYpozoppODRLBGUNAG5773-94-40 16:58:00 Test Item Value Reference Range Interpretation Comments Hgb (test code = Hgb) 12.1 14.0-18.0 [facility] CenterZmtfxpbBKTVIVZEOY0639-03-25 16:58:00 Test Item Value Reference Range Interpretation Comments RBC (test code = RBC) 4.49 4.70-6.10 [facility] CenterCvwbfwcIIKJIJLLRU0962-27-22 16:58:00 Test Item Value Reference Range Interpretation Comments WBC (test code = WBC) 10.7 3.7-10.4 [facility] CenterZlstncvLQRWVCQWJL8480-45-29 16:58:00 Test Item Value Reference Range Interpretation Comments Basophils (test code = 0.6 See_Comment [Aut omated message] The Basophils) system which ge nerated this result tra nsmitted reference range : <=1.0. The reference r gutierrez was not used to int erpret this result as normal/abnormal . [facility] CenterBbevjkfBMJUOQDRYO8508-08-36 16:58:00 Test Item Value Reference Range Interpretation Comments Eosinophils (test code = 4.6 See_Comment [A utomated message] The Eosinophils) system which ge nerated this result tra nsmitted reference range : <=4.0. The reference r gutierrez was not used to int erpret this result as normal/abnormal . [facility] CenterYcvcfbeKYHAHPZEFE1599-25-20 16:58:00 Test Item Value Reference Range Interpretation Comments Neutrophils # (test code = Neutrophils 7.0 1.5-8.1 #) [facility] CenterYrbkjixPJAQQSNFFF5127-32-54 16:58:00 Test Item Value Reference Range Interpretation Comments Lymphocytes # (test code = Lymphocytes 2.4 1.0-5.5 #) [facility] CenterWmtwrfvDKXMCZYOSM5961-41-39 16:58:00 Test Item Value Reference Range Interpretation Comments Monocytes # (test code 0.8 See_Comment [Aut omated message] The = Monocytes #) system which generated this result tra nsmitted reference range : <=0.8. The reference r gutierrez was not used to int erpret this result as normal/abnormal . [facility] CenterMjeyxtoULKHFPQDGU5571-83-05 16:58:00 Test Item Value Reference Range Interpretation Comments Lymphocytes (test code = Lymphocytes) 22.5 20.0-40.0 [facility] CenterDoocktdWLCWQTLUWS6306-99-60 16:58:00 Test Item Value Reference Range Interpretation Comments Monocytes (test code = Monocytes) 7.2 2.0-12.0 [place] 817478-09-06 16:58:00 Test Item Value Reference Range Interpretation Comments Monocytes (test code = Monocytes) 7.2 2.0-12.0 [facility] CenterTubwaifEPJDRKQVGR0728-67-45 16:58:00 Test Item Value Reference Range Interpretation Comments Eosinophils # (test code 0.5 See_Comment [A utomated message] The = Eosinophils #) system whic h generated this result tra nsmitted reference range : <=0.5. The reference r gutierrez was not used to int erpret this result as normal/abnormal . [facility] CenterCeujrknGNGSKBYQVC5807-51-18 16:58:00 Test Item Value Reference Range Interpretation Comments Basophils # (test code 0.1 See_Comment [Aut omated message] The = Basophils #) system which generated this result tra nsmitted reference range : <=0.2. The reference r gutierrez was not used to int erpret this result as normal/abnormal . [facility] CampusPblahvzZHDRGYOFTG5465-28-10 16:58:00 Test Item Value Reference Range Interpretation Comments Segs (test code = Segs) 65.1 45.0-75.[address] [facility] HospitalAwfitzbQKAHCYTHEU4603-09-22 16:58:00 Test Item Value Reference Range Interpretation Comments Eosinophils # (test code 0.5 See_Comment [A utomated message] The = Eosinophils #) system whic h generated this result tra nsmitted reference range : <=0.5. The reference r gutierrez was not used to int erpret this result as normal/abnormal . [facility] CampusQtdwnuhFIHLGNPNHD2783-85-61 16:58:00 Test Item Value Reference Range Interpretation Comments Basophils # (test code 0.1 See_Comment [Aut omated message] The = Basophils #) system which generated this result tra nsmitted reference range : <=0.2. The reference r gutierrez was not used to int erpret this result as normal/abnormal . [facility] HospitalCdwjdlyRBDPQTXEAZ8433-81-80 16:58:00 Test Item Value Reference Range Interpretation Comments Segs (test code = Segs) 65.1 45.0-75.0 [facility] [employer] LRIIAZQ5321-56-17 16:58:00 Test Item Value Reference Range Interpretation Comments Antibody Scrn (test Negative (07/12/18 11:58 code = Antibody Scrn) AM) [facility] [employer] LPIPBBH7758-13-80 16:58:00 Test Item Value Reference Range Interpretation Comments ABO/Rh (test code = ABO/Rh) O POS [facility] HuizjwkXBSPQOORBPNJ9732-49-04 16:58:00 Test Item Value Reference Range Interpretation Comments AGAP (test code = AGAP) 10.2 10.0-20.0 [facility] CampusDoeuancANYHCJJQOMWP7533-20-72 16:58:00 Test Item Value Reference Range Interpretation Comments eGFR (test code = eGFR) 19 [facility] CampusFaxnmwuZDGZAIRXXLNL3055-53-39 16:58:00 Test Item Value Reference Range Interpretation Comments Calcium Lvl (test code = Calcium Lvl) 8.0 8.5-10.5 [facility] CampusQijmdhcRFUOYRGHUOMY7124-04-15 16:58:00 Test Item Value Reference Range Interpretation Comments CO2 (test code = CO2) 26 24-32 [facility] RegionZbcenkvVTJAIGTVZGEV2343-31-57 16:58:00 Test Item Value Reference Range Interpretation Comments Creatinine Lvl (test code = Creatinine 3.53 0.50-1.40 Lvl) [facility] RegionFoempjyDPBNZNSUQNZC8210-48-08 16:58:00 Test Item Value Reference Range Interpretation Comments BUN (test code = BUN) 33 7-22 [facility] RegionIznfiopZLBNEXOVWCAS7595-63-97 16:58:00 Test Item Value Reference Range Interpretation Comments Glucose Lvl (test code = Glucose Lvl) 86 70-99 [facility] RegionVpxdkojYQXIUQNHQTIO2796-74-99 16:58:00 Test Item Value Reference Range Interpretation Comments Chloride Lvl (test code = Chloride Lvl) 108 95-109 [facility] RegionNwghiftZZADIINUFCCM3070-19-41 16:58:00 Test Item Value Reference Range Interpretation Comments Sodium Lvl (test code = Sodium Lvl) 139 135-145 [facility] RegionWmoyfneNCUJFJCIDUTR7507-70-63 16:58:00 Test Item Value Reference Range Interpretation Comments Potassium Lvl (test code = Potassium 5.2 3.5-5.1 Lvl) [facility] CenterOjvfzonNCYOTJMMOJ3616-92-53 16:58:00 Test Item Value Reference Range Interpretation Comments PTT (test code = PTT) 34.8 s 22.9-35.8 [facility] CenterVyscbnzHBPEUUKADZ8114-82-72 16:58:00 Test Item Value Reference Range Interpretation Comments INR (test code = INR) 0.94 1 0.85-1.17 [facility] CenterSoynbwvSOHHKLSEEA7478-37-13 16:58:00 Test Item Value Reference Range Interpretation Comments PT (test code = PT) 12.6 s 12.0-14.7 [facility] CenterMjibxblSJCRNHYBYL2708-19-83 16:58:00 Test Item Value Reference Range Interpretation Comments Platelet (test code = Platelet) 259 133-450 [facility] CenterSazgzgiIHAUGBVTXL8221-49-01 16:58:00 Test Item Value Reference Range Interpretation Comments MPV (test code = MPV) 7.6 7.4-10.4 [facility] CenterSvdvwluHBFKJTVSVA0898-68-83 16:58:00 Test Item Value Reference Range Interpretation Comments Hct (test code = Hct) 37.0 42.0-54.0 [facility] CenterXzvcwnnVJFMGLTEXR3358-81-64 16:58:00 Test Item Value Reference Range Interpretation Comments MCH (test code = MCH) 27.0 pg 27.0-31.0 [facility] CenterLehwhhnELRMLLEXQA4810-64-60 16:58:00 Test Item Value Reference Range Interpretation Comments MCHC (test code = MCHC) 32.7 32.0-36.0 [facility] CenterHagijcdQFTODGYFNO4274-11-97 16:58:00 Test Item Value Reference Range Interpretation Comments RDW (test code = RDW) 15.7 11.5-14.5 [facility] CenterEynasqqPWGHBEYVBM6115-70-57 16:58:00 Test Item Value Reference Range Interpretation Comments MCV (test code = MCV) 82.5 80.0-94.0 [facility] CenterFhqkfedYDWEMGJZRG6317-18-67 16:58:00 Test Item Value Reference Range Interpretation Comments Hgb (test code = Hgb) 12.1 14.0-18.0 [facility] CenterTkngizjLPUFDYTTYN9942-37-54 16:58:00 Test Item Value Reference Range Interpretation Comments RBC (test code = RBC) 4.49 4.70-6.10 [facility] CenterYekhjtfXSXWYQYVIN0110-26-55 16:58:00 Test Item Value Reference Range Interpretation Comments WBC (test code = WBC) 10.7 3.7-10.4 [facility] CenterEvhtknnBQSSYWTNWI6417-98-60 16:58:00 Test Item Value Reference Range Interpretation Comments Basophils (test code = 0.6 See_Comment [Aut omated message] The Basophils) system which ge nerated this result tra nsmitted reference range : <=1.0. The reference r gutierrez was not used to int erpret this result as normal/abnormal . [facility] CenterLogacnkSAOUMLXCVQ4659-65-87 16:58:00 Test Item Value Reference Range Interpretation Comments Eosinophils (test code = 4.6 See_Comment [A utomated message] The Eosinophils) system which ge nerated this result tra nsmitted reference range : <=4.0. The reference r gutierrez was not used to int erpret this result as normal/abnormal . [facility] CenterAfcjorhKGMWHOLGYH4477-87-45 16:58:00 Test Item Value Reference Range Interpretation Comments Neutrophils # (test code = Neutrophils 7.0 1.5-8.1 #) [facility] CenterAkhcszbXDTOBMYIBA2358-74-18 16:58:00 Test Item Value Reference Range Interpretation Comments Lymphocytes # (test code = Lymphocytes 2.4 1.0-5.5 #) [facility] HospitalNklcgdnMFKMPYZUHL9461-43-87 16:58:00 Test Item Value Reference Range Interpretation Comments Monocytes # (test code 0.8 See_Comment [Aut omated message] The = Monocytes #) system which generated this result tra nsmitted reference range : <=0.8. The reference r gutierrez was not used to int erpret this result as normal/abnormal . [facility] HospitalImwtunaZGJROPEZXY5549-14-06 16:58:00 Test Item Value Reference Range Interpretation Comments Lymphocytes (test code = Lymphocytes) 22.5 20.0-40.[address] [facility] HospitalOhadzlzJDUDZUSVSI6352-78-97 16:58:00 Test Item Value Reference Range Interpretation Comments Monocytes (test code = Monocytes) 7.2 2.0-12.0 [facility] CenterXqjomlvWHHYSWHQHB6547-63-54 16:58:00 Test Item Value Reference Range Interpretation Comments Eosinophils # (test code 0.5 See_Comment [A utomated message] The = Eosinophils #) system whic h generated this result tra nsmitted reference range : <=0.5. The reference r gutierrez was not used to int erpret this result as normal/abnormal . [facility] HospitalEpxgmoxNCBQIJXGFH4133-39-56 16:58:00 Test Item Value Reference Range Interpretation Comments Basophils # (test code 0.1 See_Comment [Aut omated message] The = Basophils #) system which generated this result tra nsmitted reference range : <=0.2. The reference r gutierrez was not used to int erpret this result as normal/abnormal . [facility] HospitalJvfualgUHYGTPWHDH4074-92-38 16:58:00 Test Item Value Reference Range Interpretation Comments Segs (test code = Segs) 65.1 45.0-75.0 [facility] [employer] NVNYTFL9860-35-45 16:58:00 Test Item Value Reference Range Interpretation Comments Antibody Scrn (test Negative (07/12/18 11:58 code = Antibody Scrn) AM) [facility]MD [employer] IIBRNQW6441-90-92 16:58:00 Test Item Value Reference Range Interpretation Comments ABO/Rh (test code = ABO/Rh) O POS [facility] CampusPoiuionKUUMAQIBEFKY2838-08-78 16:58:00 Test Item Value Reference Range Interpretation Comments AGAP (test code = AGAP) 10.2 10.0-20.0 [facility] RegionGzqwewgKICOZPGUFBNP1919-40-94 16:58:00 Test Item Value Reference Range Interpretation Comments eGFR (test code = eGFR) 19 [facility] RegionWiigbakJZTNJAKJUHOW1899-58-23 16:58:00 Test Item Value Reference Range Interpretation Comments Calcium Lvl (test code = Calcium Lvl) 8.0 8.5-10.5 [facility] RegionNlwbnokATTIPOXACNBK1319-04-75 16:58:00 Test Item Value Reference Range Interpretation Comments CO2 (test code = CO2) 26 24-32 [facility] RegionXjsodsuRPTAQSXZFSGO2534-79-38 16:58:00 Test Item Value Reference Range Interpretation Comments Creatinine Lvl (test code = Creatinine 3.53 0.50-1.40 Lvl) [facility] RegionAhqbwpaVYBUIHMYWZLU3813-84-70 16:58:00 Test Item Value Reference Range Interpretation Comments BUN (test code = BUN) 33 7-22 [facility] RegionWhzabroMGQLTWIAJWZT0093-06-65 16:58:00 Test Item Value Reference Range Interpretation Comments Glucose Lvl (test code = Glucose Lvl) 86 70-99 [facility] RegionJvwezksQXOEXDAUYVKV8211-40-59 16:58:00 Test Item Value Reference Range Interpretation Comments Chloride Lvl (test code = Chloride Lvl) 108 95-109 [facility] RegionLmulxlkKVQRULAUKBPA4411-71-81 16:58:00 Test Item Value Reference Range Interpretation Comments Sodium Lvl (test code = Sodium Lvl) 139 135-145 [facility] RegionZaebbtlDFOELNTZLDZF0258-32-48 16:58:00 Test Item Value Reference Range Interpretation Comments Potassium Lvl (test code = Potassium 5.2 3.5-5.1 Lvl) [facility] CenterSbngnrxZPHAABQVHB5755-11-37 16:58:00 Test Item Value Reference Range Interpretation Comments PTT (test code = PTT) 34.8 s 22.9-35.8 [facility] CenterXuepkbiHQKRFTUJMZ5108-60-25 16:58:00 Test Item Value Reference Range Interpretation Comments INR (test code = INR) 0.94 1 0.85-1.17 [facility] CenterPnphmmqJLKRDMXGTR5714-67-44 16:58:00 Test Item Value Reference Range Interpretation Comments PT (test code = PT) 12.6 s 12.0-14.7 [facility] CenterIqcvsiaAMMXEDMKVL0899-61-74 16:58:00 Test Item Value Reference Range Interpretation Comments Platelet (test code = Platelet) 259 133-450 [facility] CenterJiotzvgATDXJJTLVT8843-23-51 16:58:00 Test Item Value Reference Range Interpretation Comments MPV (test code = MPV) 7.6 7.4-10.4 [facility] CenterVsjyudqGCAMNFYSHQ2316-95-34 16:58:00 Test Item Value Reference Range Interpretation Comments Hct (test code = Hct) 37.0 42.0-54.[address] [facility]
[2022-12-24] MEDS ORDERED: METOPROLOL TARTRATE 5 MG/5 ML INJ IV ONE (15:55)
[2022-12-24 16:20] LABS: Absolute Lymphocytes (CBC) 1.2 K/uL (0.7-4.9); Hematocrit 34.8 % (39.6-49.0); Lymphocytes % 24.8 % (15.3-44.8); MCV 87.2 fL (80-100); MPV 7.6 fL (7.6-11.3); RBC Red Blood Cell Count 3.99 M/uL (4.33-5.43)
[2022-12-24 16:37] LABS: Bilirubin Total 0.6 mg/dL (0.2-1.0); Magnesium 2.1 mg/dL (1.6-2.4); Potassium 3.5 mmol/L (3.5-5.1); Protein, Total 7.9 g/dL (6.4-8.2); Troponin High Sensitivity 26.1 pg/mL (<58.9)
--- NOTE | 2022-12-24 16:42 | RAD REPORT ---
EXAM DESCRIPTION: RAD - Chest Single View - 12/24/2022 4:31 pm CLINICAL HISTORY: COUGH COMPARISON: Chest Single View dated 08/30/2022; Chest Single View dated 05/11/2022; Chest Single View dated 05/06/2022; Chest Single View dated 04/13/2022 FINDINGS: Lines: None. Lungs: Increased interstitial markings bilaterally. No consolidation. Pleural: No significant pleural effusions or pneumothorax. Cardiac: The heart size is within normal limits. Mediastinum: Within normal limits. Bones: No acute fractures. ACDF in the cervical spine . Other: Defibrillator pad overlies the left hemithorax . IMPRESSION: Increased interstitial interstitial markings markings bilaterally could reflect an atypi josephine infectious process or early developing edema.
[2022-12-24] MEDS ORDERED: DIGOXIN 0.25 MG/ML AMP ONE (16:46)
[2022-12-24] MEDS ORDERED: FENTANYL CITR 100 MCG/2 ML ONE (16:54)
--- NOTE | 2022-12-24 17:14 | EDPHYS ---
Physician Documentation [facility] Name: Vladimir Maguire Age: 52 yrs Sex: Male : 1970 Arrival Date: 12/24/2022 Time: 15:44 Bed 4 Private MD: ED Physician David Hart HPI: 12/24 16:01 This 52 yrs old Male presents to ER via EMS with complaints of Palpitations, rt General Weakness. 17:06 Patient presents to the ED with chest pain, generalized weakness, palpitations. This rt occurred after dialysis which she completed. The patient was reportedly tachycardic with atrial fibrillation as well as was hypotensive with a systolic of 90. After med control, 500 cc of fluid and 150 of amiodarone were given to the patient. Patient denies any change of the symptoms. His blood pressure did improve but his heart rate did not change. Symptoms are severe in severity, no other aggravating alleviating factors.. Historical: - Allergies: 15:44 Ativan; ll1 - PMHx: 15:44 ESRD with dialysis MWF; Hypertension; neuropathy; Renal Disease; Rheumatoid Arthritis; ll1 Diabetes - NIDDM; - PSHx: 15:44 dialysis site to left arm; RIGHT BKA; ll1 - Immunization history:: Client reports receiving the 2nd dose of the Covid vaccine. - Social history:: Smoking status: Patient denies any tobacco usage or history of. - Family history:: not pertinent. ROS: 17:06 Constitutional: Negative for fever, chills, and weight loss, Eyes: Negative for injury, rt pain, redness, and discharge, Respiratory: Negative for shortness of breath, cough, wheezing, and pleuritic chest pain, Abdomen/GI: Negative for abdominal pain, nausea, vomiting, diarrhea, and constipation, MS/Extremity: Negative for injury and deformity, Skin: Negative for injury, rash, and discoloration, Neuro: Negative for headache, weakness, numbness, tingling, and seizure, Psych: Negative for depression, anxiety, suicide ideation, homicidal ideation, and hallucinations. 17:06 Cardiovascular: Positive for chest pain, palpitations. 17:06 Neuro: Positive for near syncope, Negative for loss of consciousness. Exam: 17:06 Constitutional: This is a well developed, well nourished patient who is awake, alert, rt and in no acute distress. Head/Face: Normocephalic, atraumatic. Chest/axilla: Normal chest wall appearance and motion. Nontender with no deformity. No lesions are appreciated. Cardiovascular: Regular rate and rhythm with a normal S1 and S2. No gallops, murmurs, or rubs. Normal PMI, no JVD. No pulse deficits. Respiratory: Lungs have equal breath sounds bilaterally, clear to auscultation and percussion. No rales, rhonchi or wheezes noted. No increased work of breathing, no retractions or nasal flaring. Abdomen/GI: Soft, non-tender, with normal bowel sounds. No distension or tympany. No guarding or rebound. No evidence of tenderness throughout. MS/ Extremity: Pulses equal, no cyanosis. Neurovascular intact. Full, normal range of motion. Neuro: Awake and alert, GCS 15, oriented to person, place, time, and situation. Cranial nerves II-XII grossly intact. Motor strength 5/5 in all extremities. Sensory grossly intact. Cerebellar exam normal. Normal gait. Psych: Awake, alert, with orientation to person, place and time. Behavior, mood, and affect are within normal limits. 17:06 ECG was reviewed by the Attending Physician. rt 17:06 ECG was reviewed by the Attending Physician. Vital Signs: 15:45 BP 138 / 76; Pulse 128; Resp 22; Pulse Ox 99% on R/A; Weight 102.06 kg; Height 5 ft. 10 ll1 in. (177.80 cm); Pain 7/10; 15:50 BP 153 / 111; Pulse 131; Resp 20 S; Pulse Ox 96% on 4 lpm NC; Pain 10/10; kc6 16:00 BP 145 / 94; Pulse 128; Resp 17 S; Pulse Ox 100% on 4 lpm NC; kc6 16:16 BP 130 / 98; Pulse 125; Resp 19 S; Pulse Ox 99% 4 lpm ; kc6 16:20 BP 140 / 102; Pulse 132; Resp 16 S; Pulse Ox 99% on 4 lpm NC; kc6 16:25 BP 148 / 101; Pulse 131; Resp 14 S; Pulse Ox 98% on 4 lpm NC; kc6 16:30 BP 130 / 91; Pulse 135; Resp 16 S; Pulse Ox 98% on 4 lpm NC; kc6 16:45 BP 145 / 86; Pulse 103; Resp 9 S; Pulse Ox 96% on 4 lpm NC; kc6 16:50 BP 133 / 94; Pulse 138; Resp 16 S; Pulse Ox 99% 4 lpm ; kc6 17:00 BP 140 / 84; Pulse 137; Resp 11 S; Pulse Ox 96% on 4 lpm NC; kc6 17:04 Temp 97.8(O); iw 17:05 BP 119 / 84; Pulse 92; Resp 16 S; Pulse Ox 100% on 4 lpm NC; kc6 17:10 BP 112 / 97; Pulse 142; Resp 12 S; Pulse Ox 98% on 4 lpm NC; kc6 17:15 BP 102 / 72; Pulse 140; Resp 10 S; Pulse Ox 97% on 4 lpm NC; kc6 17:20 BP 110 / 75; Pulse 116; Resp 8 S; Pulse Ox 98% on 4 lpm NC; kc6 17:25 BP 102 / 69; Pulse 91; Resp 12 S; Pulse Ox 98% on 4 lpm NC; kc6 17:30 BP 105 / 69; Pulse 91; Resp 15 S; Pulse Ox 96% on 4 lpm NC; kc6 17:35 BP 83 / 53; Pulse 90; Resp 18 S; Pulse Ox 96% on 4 lpm NC; kc6 17:36 BP 83 / 63; Pulse 98; Resp 20 S; Pulse Ox 93% on 4 lpm NC; kc6 17:38 BP 97 / 73; Pulse 97; Resp 21 S; Pulse Ox 97% on 4 lpm NC; kc6 17:40 BP 124 / 70; Pulse 104; Resp 15 S; Pulse Ox 100% on 4 lpm NC; kc6 17:50 BP 82 / 63; Pulse 108; Resp 12 S; Pulse Ox 100% on 4 lpm NC; kc6 17:52 BP 95 / 76; Pulse 101; Resp 12 S; Pulse Ox 96% on 4 lpm NC; kc6 17:58 BP 97 / 67; Pulse 65; Resp 14 S; Pulse Ox 100% on 4 lpm NC; kc6 18:16 BP 123 / 83; Pulse 75; Resp 16 S; Pulse Ox 97% on 4 lpm NC; kc6 18:58 BP 132 / 84; Pulse 85; Resp 14 S; Pulse Ox 100% on 4 lpm NC; kc6 19:43 BP 164 / 90; Pulse 85; Resp 14; Temp 98.1(O); Pulse Ox 100% on R/A; bb 21:00 BP 142 / 80; Pulse 80; Resp 20 S; Pulse Ox 95% on R/A; bb 15:45 Body Mass Index 32.28 (102.06 kg, 177.80 cm) ll1 MDM: 15:46 Patient medically screened. rt 17:15 Differential diagnosis: A-fib, atrial flutter, hypovolemia. Data reviewed: vital signs, rt nurses notes, lab test result(s), EKG, radiologic studies. Consideration of Admission/Observation Patient was admitted/placed on observation. Management of patient was discussed with the following: Hospitalist: Agrees to admit. Stockroom Attendant: Spoke to business assistant, recommends Cardizem, possible amiodarone drip. I considered the following discharge prescriptions or medication management in the emergency department Medications were administered in the Emergency Department. See MAR. Care significantly affected by the following chronic conditions: Chronic Kidney Disease, Atrial fibrillation. Counseling: I had a detailed discussion with the patient and/or guardian regarding: the historical points, exam findings, and any diagnostic results supporting the discharge/admit diagnosis, lab results, radiology results, the need for further work-up and treatment in the hospital. 12/24 15:45 Order name: CBC with Diff rt 12/24 15:45 Order name: CMP rt 12/24 15:45 Order name: Troponin High Sensitivity rt 12/24 15:45 Order name: Lactate w/ 2H reflex if indic. rt 12/24 15:45 Order name: Blood Culture Adult (2) rt 12/24 15:45 Order name: Magnesium rt 12/24 16:27 Order name: CBC with Automated Diff; Complete Time: 16:32 EDMS 12/24 16:38 Order name: Lactate w/ 2H reflex if indic.; Complete Time: 16:38 EDMS 12/24 16:38 Order name: Comprehensive Metabolic Panel; Complete Time: 16:38 EDMS 12/24 16:38 Order name: Troponin High Sensitivity; Complete Time: 16:38 EDMS 12/24 16:38 Order name: Magnesium; Complete Time: 16:38 EDMS 12/24 17:43 Order name: SARS RAPID iw 12/24 18:18 Order name: SARS-COV-2 Antigen Rapid EDMS 12/24 20:33 Order name: Lactate Sepsis 2 HR Follow-up EDMS 12/24 15:45 Order name: Chest Single View XRAY rt 12/24 16:43 Order name: RAD; Complete Time: 16:51 EDMS EC:06 Rate is 132 beats/min. Rhythm is irregularly irregular, A fib with Occasional PVCs. QRS rt [place] is Normal. QRS interval is normal. QT interval is normal. 17:06 Rate is 135 beats/min. Rhythm is regular, A flutter with No ectopy. QRS [place] is Normal. rt QRS interval is normal. QT interval is normal. No Q waves. Administered Medications: 15:58 Drug: Lopressor (metoprolol) 5 mg Route: IVP; Site: right antecubital; kc6 18:04 Follow up: Response: No adverse reaction; Cardiac rhythm is unchanged kc6 16:12 Drug: Lopressor (metoprolol) 5 mg Route: IVP; Site: right antecubital; iw 18:04 Follow up: Response: No adverse reaction; Cardiac rhythm is unchanged kc6 16:22 Drug: Lopressor (metoprolol) 5 mg Route: IVP; Site: right antecubital; iw 18:04 Follow up: Response: No adverse reaction; Cardiac rhythm is unchanged kc6 16:26 Drug: Digoxin 0.5 mg Route: IVP; Site: right antecubital; iw 18:04 Follow up: Response: No adverse reaction; Cardiac rhythm changed kc6 16:57 Drug: fentaNYL (PF) 50 mcg Route: IVP; Site: right wrist; vg1 18:04 Follow up: Response: No adverse reaction; Pain is unchanged, physician notified; RASS: kc6 Alert and Calm (0) 17:51 Drug: Cardizem (diltiazem) 10 mg Route: IVP; Site: right wrist; kc6 18:16 Follow up: Response: No adverse reaction; Cardiac rhythm changed kc6 18:03 Not Given (Physician Discretion): Rocephin (cefTRIAXone) 2 grams IV at calculated rate kc6 once; Given slow IV push per pharmarcy instructions 19:15 Drug: Rocephin (cefTRIAXone) 1 grams Route: IV; Rate: calculated rate; Site: left bb antecubital; 19:20 Follow up: IV Status: Completed infusion; IV Intake: 10ml bb 19:15 Drug: Doxycycline 100 mg Route: PO; bb 21:01 Follow up: Response: No adverse reaction bb Disposition Summary: 12/24/22 17:13 Hospitalization Ordered Hospitalization Status: Inpatient Admission rt Provider: Maykel Anders rt Location: Telemetry/[facility]Sur (Inpatient) rt Condition: Fair rt Problem: an acute exacerbation rt Symptoms: are unchanged rt Bed/Room Type: Standard rt Room Assignment: 219(12/24/22 20:20) cg Diagnosis - Unspecified atrial fibrillation rt Forms: - Medication Reconciliation Form rt - SBAR form rt Critical care time excluding procedures: 17:15 Critical care time: Bedside Care: 30 minutes, Consultation: 5 minutes. Total time: 35 rt minutes Signatures: Dispatcher [employer] EDAdeline Cornell RN Vesta Peck RN RN iw Aki Mckinney, [place] ARCHITECT-C [place] ARCHITECT-Cla1 Arielle Buckley RN RN cg Garcia, Victoria, RN RN vg1 Rosalie Khan RN RN ll1 Maude Calix RN RN kc6 David Hart MD MD rt Corrections: (The following items were deleted from the chart) 20:20 17:13 rt cg
--- NOTE | 2022-12-24 17:14 | ER ---
Nurse's Notes [facility] Name: Vladimir Maguire Age: 52 yrs Sex: Male : 1970 Arrival Date: 12/24/2022 Time: 15:44 Bed 4 Private MD: Diagnosis: Unspecified atrial fibrillation Presentation: 12/24 15:45 Chief complaint: Patient states: Started feeling bad at the end of dialysis. EMS ll1 states: A fib with RVR rate 150-180. Amiodarone 150mg IV and NS 500 ML bolus given. Initial BP 90/50. Coronavirus screen: Vaccine status: Patient reports receiving the 2nd dose of the covid vaccine. Client denies travel out of the [place] in the last 14 days. At this time, the client does not indicate any symptoms associated with coronavirus-19. Ebola Screen: Patient denies travel to an Ebola-affected area in the 21 days before illness onset. Initial Sepsis Screen: Does the patient meet any 2 criteria? RR > 20 per min. HR > 90 bpm. No. Patient's initial sepsis screen is negative. Does the patient have a suspected source of infection? No. Patient's initial sepsis screen is negative. Risk Assessment: Do you want to hurt yourself or someone else? Patient reports no desire to harm self or others. Onset of symptoms was December 24, 2022. 15:45 Method Of Arrival: EMS: [facility] 1 15:45 Acuity: GINA 2 ll1 Triage Assessment: 15:47 General: Appears uncomfortable, ill, Behavior is cooperative, appropriate for age, ll1 restless. Pain: Complains of pain in chest Pain currently is 7 out of 10 on a pain scale. Quality of pain is described as pressure. Cardiovascular: Reports chest pain, fatigue, palpitations, shortness of breath. Respiratory: Reports shortness of breath. Historical: - Allergies: 15:44 Ativan; ll1 - PMHx: 15:44 ESRD with dialysis MWF; Hypertension; neuropathy; Renal Disease; Rheumatoid Arthritis; ll1 Diabetes - NIDDM; - PSHx: 15:44 dialysis site to left arm; RIGHT BKA; ll1 - Immunization history:: Client reports receiving the 2nd dose of the Covid vaccine. - Social history:: Smoking status: Patient denies any tobacco usage or history of. - Family history:: not pertinent. Screenin:00 [facility] ED Fall Risk Assessment (Adult) History of falling in the last 3 months, iw including since admission No falls in past 3 months (0 pts) Confusion or Disorientation No (0 pts) Intoxicated or Sedated No (0 pts) Impaired Gait No (0 pts) Mobility Assist Device Used No (0 pt) Altered Elimination No (0 pt) Score/Fall Risk Level 0 - 2 = Low Risk Oriented to surroundings, Maintained a safe environment, Educated pt \T\ family on fall prevention, incl call for assistance when getting out of bed, Assessed \T\ reinforced patient's understanding of fall precautions, Hourly rounding (assess needs \T\ fall precautionary measures) done. Abuse screen: Denies threats or abuse. Denies injuries from another. Nutritional screening: No deficits noted. Tuberculosis screening: No symptoms or risk factors identified. Assessment: 16:00 General: Appears distressed, uncomfortable, ill, Behavior is calm, cooperative, kc6 appropriate for age. Pain: Complains of pain in chest, back, head Pain does not radiate. Pain currently is 10 out of 10 on a pain scale. Quality of pain is described as sharp, throbbing, Pain began suddenly, Is continuous, Alleviated by nothing. Aggravated by increased activity, repositioning, Noted to be grimacing, moaning, resistant to movement, Also complains of no other associated symptoms. Neuro: Mendoza Agitation-Sedation Scale (RASS): 0 - Alert and Calm Level of Consciousness is awake, alert, obeys commands, Oriented to person, place, time, situation, Appropriate for age. Cardiovascular: Reports chest pain, lightheadedness, shortness of breath, Heart tones S1 S2 present Capillary refill < 3 seconds Rhythm is atrial fibrillation with rapid ventricular response With PVC's Dialysis shunt: in the left arm, with no erythema, with no edema, no bleeding noted. Respiratory: Airway is patent Trachea midline Respiratory effort is even, unlabored, Respiratory pattern is regular, symmetrical, Breath sounds with wheezes bilaterally. GI: No signs and/or symptoms were reported involving the gastrointestinal system. : No signs and/or symptoms were reported regarding the genitourinary system. EENT: No signs and/or symptoms were reported regarding the EENT system. Derm: No signs and/or symptoms reported regarding the dermatologic system. Skin is intact, Skin is pink, warm \T\ dry. Musculoskeletal: No signs and/or symptoms reported regarding the musculoskeletal system. Amputation of right BKA. Circulation, motion, and sensation intact. Capillary refill < 3 seconds, Range of motion: intact in all extremities. 17:00 Reassessment: Patient appears in no apparent distress at this time. No changes from iw previously documented assessment. Patient and/or family updated on plan of care and expected duration. Pain level reassessed. Patient is alert, oriented x 3, equal unlabored respirations, skin warm/dry/pink. 17:15 Reassessment: spoke with inside lab for assistance with second set of blood cultures. kc6 stated they are on their way. 17:55 Reassessment: spoke with inside lab. stated they have not forgotten about the second [facility] set of blood cultures and will be here shortly. 18:00 Reassessment: Patient appears in no apparent distress at this time. No changes from kc6 previously documented assessment. Patient and/or family updated on plan of care and expected duration. Pain level reassessed. Patient is alert, oriented x 3, equal unlabored respirations, skin warm/dry/pink. 19:29 Reassessment: Patient is alert, oriented x 3, equal unlabored respirations, skin bb warm/dry/pink. IV site to right AC intact, patent no erythema or edema noted pt c/o pain to IV to right wrist IV d/c with catheter intact, bleeding controlled, pressure dressing applied, pt ambulated to bathroom. Patient states feeling better. 19:54 Cardiovascular: Rhythm is sinus rhythm. bb 20:59 Reassessment: report called to Maritza WOOD for room 219. bb Vital Signs: 15:45 BP 138 / 76; Pulse 128; Resp 22; Pulse Ox 99% on R/A; Weight 102.06 kg; Height 5 ft. 10 ll1 in. (177.80 cm); Pain 7/10; 15:50 BP 153 / 111; Pulse 131; Resp 20 S; Pulse Ox 96% on 4 lpm NC; Pain 10/10; kc6 16:00 BP 145 / 94; Pulse 128; Resp 17 S; Pulse Ox 100% on 4 lpm NC; kc6 16:16 BP 130 / 98; Pulse 125; Resp 19 S; Pulse Ox 99% 4 lpm ; kc6 16:20 BP 140 / 102; Pulse 132; Resp 16 S; Pulse Ox 99% on 4 lpm NC; kc6 16:25 BP 148 / 101; Pulse 131; Resp 14 S; Pulse Ox 98% on 4 lpm NC; kc6 16:30 BP 130 / 91; Pulse 135; Resp 16 S; Pulse Ox 98% on 4 lpm NC; kc6 16:45 BP 145 / 86; Pulse 103; Resp 9 S; Pulse Ox 96% on 4 lpm NC; kc6 16:50 BP 133 / 94; Pulse 138; Resp 16 S; Pulse Ox 99% 4 lpm ; kc6 17:00 BP 140 / 84; Pulse 137; Resp 11 S; Pulse Ox 96% on 4 lpm NC; kc6 17:04 Temp 97.8(O); iw 17:05 BP 119 / 84; Pulse 92; Resp 16 S; Pulse Ox 100% on 4 lpm NC; kc6 17:10 BP 112 / 97; Pulse 142; Resp 12 S; Pulse Ox 98% on 4 lpm NC; kc6 17:15 BP 102 / 72; Pulse 140; Resp 10 S; Pulse Ox 97% on 4 lpm NC; kc6 17:20 BP 110 / 75; Pulse 116; Resp 8 S; Pulse Ox 98% on 4 lpm NC; kc6 17:25 BP 102 / 69; Pulse 91; Resp 12 S; Pulse Ox 98% on 4 lpm NC; kc6 17:30 BP 105 / 69; Pulse 91; Resp 15 S; Pulse Ox 96% on 4 lpm NC; kc6 17:35 BP 83 / 53; Pulse 90; Resp 18 S; Pulse Ox 96% on 4 lpm NC; kc6 17:36 BP 83 / 63; Pulse 98; Resp 20 S; Pulse Ox 93% on 4 lpm NC; kc6 17:38 BP 97 / 73; Pulse 97; Resp 21 S; Pulse Ox 97% on 4 lpm NC; kc6 17:40 BP 124 / 70; Pulse 104; Resp 15 S; Pulse Ox 100% on 4 lpm NC; kc6 17:50 BP 82 / 63; Pulse 108; Resp 12 S; Pulse Ox 100% on 4 lpm NC; kc6 17:52 BP 95 / 76; Pulse 101; Resp 12 S; Pulse Ox 96% on 4 lpm NC; kc6 17:58 BP 97 / 67; Pulse 65; Resp 14 S; Pulse Ox 100% on 4 lpm NC; kc6 18:16 BP 123 / 83; Pulse 75; Resp 16 S; Pulse Ox 97% on 4 lpm NC; kc6 18:58 BP 132 / 84; Pulse 85; Resp 14 S; Pulse Ox 100% on 4 lpm NC; kc6 19:43 BP 164 / 90; Pulse 85; Resp 14; Temp 98.1(O); Pulse Ox 100% on R/A; bb 21:00 BP 142 / 80; Pulse 80; Resp 20 S; Pulse Ox 95% on R/A; bb 15:45 Body Mass Index 32.28 (102.06 kg, 177.80 cm) ll1 ED Course: 15:44 Patient arrived in ED. ll1 15:44 David Hart MD is Attending Physician. rt 15:44 No provider procedures requiring assistance completed. EKG done, by ED staff, reviewed ll1 by David Hart MD. Maintain EMS IV. Dressing intact. Good blood return noted. Site clean \T\ dry. Gauge \T\ site: 18 G R AC. 15:47 Triage completed. ll1 15:48 Arm band placed on Patient placed in an exam room, on a stretcher. ll1 15:49 Maude Calix RN is Primary Nurse. kc6 16:00 Patient has correct armband on for positive identification. Placed in gown. Bed in low iw position. Call light in reach. Side rails up X2. Adult w/ patient. 16:20 First set of blood cultures drawn right wrist. vg1 16:20 Inserted saline lock: 22 gauge in right wrist, using aseptic technique. vg1 17:12 Maykel Anders MD is Hospitalizing Provider. rt 18:17 SARS RAPID Sent. kc6 19:31 Primary Nurse role handed off by Maude Calix, NINA bb 19:31 Adeline Guy RN is Primary Nurse. bb 20:58 Lactate w/ 2H reflex if indic. Sent. bb 21:00 Patient admitted, IV remains in place. bb Administered Medications: 15:58 Drug: Lopressor (metoprolol) 5 mg Route: IVP; Site: right antecubital; kc6 18:04 Follow up: Response: No adverse reaction; Cardiac rhythm is unchanged kc6 16:12 Drug: Lopressor (metoprolol) 5 mg Route: IVP; Site: right antecubital; iw 18:04 Follow up: Response: No adverse reaction; Cardiac rhythm is unchanged kc6 16:22 Drug: Lopressor (metoprolol) 5 mg Route: IVP; Site: right antecubital; iw 18:04 Follow up: Response: No adverse reaction; Cardiac rhythm is unchanged kc6 16:26 Drug: Digoxin 0.5 mg Route: IVP; Site: right antecubital; iw 18:04 Follow up: Response: No adverse reaction; Cardiac rhythm changed kc6 16:57 Drug: fentaNYL (PF) 50 mcg Route: IVP; Site: right wrist; vg1 18:04 Follow up: Response: No adverse reaction; Pain is unchanged, physician notified; RASS: kc6 Alert and Calm (0) 17:51 Drug: Cardizem (diltiazem) 10 mg Route: IVP; Site: right wrist; kc6 18:16 Follow up: Response: No adverse reaction; Cardiac rhythm changed kc6 18:03 Not Given (Physician Discretion): Rocephin (cefTRIAXone) 2 grams IV at calculated rate [facility] once; Given slow IV push per [employer] instructions 19:15 Drug: Rocephin (cefTRIAXone) 1 grams Route: IV; Rate: calculated rate; Site: left bb antecubital; 19:20 Follow up: IV Status: Completed infusion; IV Intake: 10ml bb 19:15 Drug: Doxycycline 100 mg Route: PO; bb 21:01 Follow up: Response: No adverse reaction bb Medication: 21:00 VIS not applicable for this client. bb Intake: 19:20 IV: 10ml; Total: 10ml. bb Outcome: 17:13 Decision to Hospitalize by Provider. rt 21:00 Admitted to Tele accompanied by tech, via wheelchair, room 219, with chart. bb 21:00 Condition: stable 21:00 Instructed on the need for admit. 21:46 Patient left the ED. bb Signatures: Adeline Guy RN RN bb Williams, Irene, RN Ayanna Cummins RN RN vg1 Rosalie Khan RN RN marcus1 Maude Calix RN RN kc6 David Hart MD MD rt Corrections: (The following items were deleted from the chart) 16:25 16:24 Inserted saline lock: 22 gauge in right wrist, using aseptic technique. vg1 vg1 17:34 17:15 Reassessment: inside lab contacted for assistance with second set of blood iw cultures. stated they are on their way. iw 18:21 16:00 General: Appears distressed, uncomfortable, ill, Behavior is calm, cooperative, kc6 appropriate for age, iw 18:21 16:00 Pain: Complains of pain in chest, head, back Pain does not radiate. Pain kc6 currently is 10 out of 10 on a pain scale. Quality of pain is described as sharp, throbbing, Pain began suddenly, Is continuous, Alleviated by nothing. Aggravated by increased activity, repositioning, Noted to be grimacing, moaning, resistant to movement, Also complains of no other associated symptoms. iw 18: 16:00 Neuro: Mendoza Agitation-Sedation Scale (RASS): 0 - Alert and Calm Level of kc6 Consciousness is awake, alert, obeys commands, Oriented to person, place, time, situation, Appropriate for age iw 18:21 16:00 Cardiovascular: Reports chest pain, lightheadedness, shortness of breath, Heart kc6 tones S1 S2 present Capillary refill < 3 seconds Rhythm is atrial fibrillation with rapid ventricular response With PVC's iw 18:21 16:00 Respiratory: Airway is patent Trachea midline Respiratory effort is even, kc6 unlabored, Respiratory pattern is regular, symmetrical, Breath sounds with wheezes bilaterally. iw 18:21 16:00 GI: No signs and/or symptoms were reported involving the gastrointestinal system. kc6 iw 18: 16:00 : No signs and/or symptoms were reported regarding the genitourinary system. iw kc6 18: 16:00 EENT: No signs and/or symptoms were reported regarding the EENT system. iw kc6 18:21 16:00 Derm: No signs and/or symptoms reported regarding the dermatologic system. Skin kc6 is intact, Skin is pink, warm \T\ dry. iw 18:21 16:00 Musculoskeletal: No signs and/or symptoms reported regarding the musculoskeletal kc6 system. Amputation of right BKA. Circulation, motion, and sensation intact. Capillary refill < 3 seconds, Range of motion: intact in all extremities, iw 18:21 16:00 Cardiovascular: Dialysis shunt: in the left arm, with palpable thrill, with kc6 auscultated bruit, with no erythema, with no edema, no bleeding noted iw
[2022-12-24] MEDS ORDERED: dilTIAZem HCL 25 MG/5 ML VIAL IV ONE (17:15)
[2022-12-24 18:17] LABS: SARS-CoV-2 Antigen Rapid Res Negative (Negative)
[2022-12-24] MEDS ORDERED: DOXYCYCLINE 100 MG CAP PO ONE (19:20)
[2022-12-24] MEDS ORDERED: CEFTRIAXONE 1000 MG/VIAL ONE (19:20)
--- NOTE | 2022-12-24 20:16 | P.HP ---
Certification for Inpatient Patient admitted to: Inpatient With expected LOS: >2 Midnights Patient will require the following post-hospital care: None Practitioner: I am a practitioner with admitting privileges, knowledge of patient current condition, hospital course, and medical plan of care. Services: Services provided to patient in accordance with Admission requirements found in Title 42 Section 412.3 of the Code of Federal Regulations Patient History Date of Service: 12/24/22 Reason for admission: A-fib RVR, pneumonia History of Present Illness: 52-year-old male with history of ESRD on HD TTS, atrial fibrillation on chronic anticoagulation, hypertension, RA, diet-controlled diabetes presented to the emergency department with palpitations, tachycardia. He was noted to be in atrial fibrillation with rapid ventricular response with rates from 130-145. He was given IV Lopressor 5 mg x 3, digoxin 0.5 mg IV x1 as well as Cardizem 10 mg IV push, his rate has since improved to 85, still in A-fib/flutter. He is normotensive currently blood pressure 164/90 his labs were significant for demonstration of his ESRD initial lactic acid 2.6 chest x-ray showed increased interstitial markings bilaterally could reflect atypical infectious process or early developing pneumonia. His PCP Dr. Roca reportedly sent him a prescription for an antibiotic to his pharmacy recently but he had not started this yet. He was given antibiotics in the ED Rocephin/doxycycline. Will admit for further evaluation and management of A-fib RVR, pneumonia. Allergies lorazepam [From Ativan] Allergy (Verified 04/14/22 00:33) Hives/Rash Home Medications: Amitriptyline HCl 50 mg PO BEDTIME PRN PRN 04/14/22 Apixaban [Eliquis *] 2.5 mg PO BID 04/14/22 Difluprednate [Durezol] 1 drop EACH EYE BID 04/14/22 Doxazosin [Cardura*] 4 mg PO BID 04/14/22 Hydralazine HCl 50 mg PO TID PRN 04/14/22 Lisinopril [Zestril] 20 mg PO BID 04/14/22 Omeprazole [Prilosec] 40 mg PO DAILY 04/14/22 clonazePAM [Clonazepam] 1 mg PO BID 04/14/22 Cholecalciferol (Vitamin D3) [Vitamin D 1000 Iu Tab*] 1,000 unit PO DAILY #30 tab 04/18/22 Butalb/Acetaminophen/Caffeine [Mzgsts-Wdiczxqm-Cwwr 50-325-40] 1 each PO Q8H PRN 05/11/22 Cholecalciferol (Vitamin D3) [Vitamin D3] 1 tab PO DAILY 05/11/22 Sevelamer Carbonate [Renvela*] 1,600 mg PO TIDWM 05/12/22 - Past Medical/Surgical History Diabetic: Yes -: HTN -: rheumatoid arthritis -: ESRD on HD TTS -: kidney cancer -: Type 2 diabetes diet controlled -: A-fib on chronic anticoagulation -: total knee replacement -: L little toe amputation -: BKA R -: upper neck fusion with broken screws -: wrist surgery -: R nephrectomy -: left hand surgery Psychosocial/ Personal History: Patient is . He has a brother and a son. - Family History Mother -: Other (see notes) Notes: no known medical history - Social History Alcohol use: No CD- Drugs: Yes Caffeine use: No Place of Residence: Home Review of Systems 10-point ROS is otherwise unremarkable Respiratory: Cough Cardiovascular: Palpitations Physical Examination - Physical Exam General: Alert, In no apparent distress, Oriented x3 HEENT: Atraumatic, PERRLA, Mucous membr. moist/pink, EOMI, Sclerae nonicteric Neck: Supple, 2+ carotid pulse no bruit, No LAD, Without JVD or thyroid abnormality Respiratory: Diminished, Expiratory wheezes Cardiovascular: Normal S1 S2, Irregular heart rate/rhythm (A-fibrate controlled) Capillary refill: <2 Seconds Gastrointestinal: Normal bowel sounds, No tenderness Musculoskeletal: No tenderness Integumentary: Other (Right BKA) Neurological: Normal speech, Normal strength at 5/5 x4 extr, Normal tone, Normal affect - Studies Laboratory Data (last 24 hrs) 12/24/22 16:02: Sodium 135 L, Potassium 3.5, BUN 32 H, Creatinine 7.37 H*, Glucose 93, Magnesium 2.1, Total Bilirubin 0.6, AST 21, ALT 18, Alkaline Phosphatase 113 12/24/22 16:02: WBC 4.80, Hgb 11.5 L, Hct 34.8 L, Plt Count 199 Assessment and Plan - Plan Assessment: Atrial fibrillation with rapid ventricular response-on chronic anticoagulation with pacemaker in place Severe sepsis secondary to pneumonia ESRD on HD TTS Diabetes mellitus type 2diet controlled Hypertension Plan: Atrial fibrillation with rapid ventricular response-on chronic anticoagulation with pacemaker in place Currently rate controlled, cardiology consulted. He was given multiple agents prior to admission including amiodarone by EMS, IV Lopressor, Cardizem, digoxin. May require amiodarone drip if he continues to have RVR throughout the evening. Appreciate further input from cardiology. TSH in the a.m. Severe sepsis secondary to pneumonia SIRS criteria present including respiratory rate greater than 20, heart rate greater than 90 although this may be related to A-fib/RVR. No leukocytosis or fevers noted. His PCP felt as if he had pneumonia and he was prescribed antibiotic which she has not filled yet, chest x-ray demonstrates atypical infection versus early pneumonia. Started on antibiotics Rocephin/doxycycline. ESRD on HD TTS Nephrology consulted Diabetes mellitus type 2diet controlled Renal/ADA diet. SSI if glucose becomes consistently elevated. Hypertension Continue home meds. DVT PPX: Continue Eliquis Code status: Full Discharge Plan: Home Plan to discharge in: 48 Hours - Advance Directives Does patient have a Living Will: No Does patient have a Durable POA for Healthcare: No - Code Status/Comfort Care Code Status Assessed: Yes (Full) Critical Care: No Time Spent Managing Pts Care (In Minutes): 70
[2022-12-24] MEDS ORDERED: ACETAMINOPHEN 500 MG TAB PO PRN (22:02)
[2022-12-24] MEDS ORDERED: ONDANSETRON 4 MG/2 ML VIAL IV PRN (22:02)
[2022-12-24] MEDS: APIXABAN 2.5 MG TABLET PO SCH (22:48)
[2022-12-25 04:12] LABS: Absolute Lymphocytes (CBC) 1.5 K/uL (0.7-4.9); Hematocrit 28.2 % (39.6-49.0); Lymphocytes % 30.2 % (15.3-44.8); MCV 87.9 fL (80-100); MPV 7.5 fL (7.6-11.3); RBC Red Blood Cell Count 3.21 M/uL (4.33-5.43)
[2022-12-25 04:51] LABS: Potassium 4.1 mmol/L (3.5-5.1); Thyroid Stimulating Hormone 1.45 uIU/mL (0.358-3.740)
[2022-12-25] MEDS ORDERED: DOXAZOSIN 2 MG TAB ONE ×2 (08:11→20:03)
[2022-12-25] MEDS: DOXAZOSIN 4 MG TAB PO SCH ×2 (09:00→20:16)
[2022-12-25] MEDS: DOXYCYCLINE 100 MG in NA CHLORIDE 0.9% 100 ML IVPB SCH ×2 (09:09→20:14)
[2022-12-25] MEDS: APIXABAN 2.5 MG TABLET PO SCH ×2 (09:10→20:13)
[2022-12-25] MEDS: HYDRALAZINE HCL 10 MG TABLET PO SCH ×2 (09:10→20:11)
[2022-12-25] MEDS: CEFTRIAXONE 1,000 MG in NA CHLORIDE 0.9% 50 ML IVPB SCH (09:12)
[2022-12-25] MEDS ORDERED: METOPROLOL TAR 25 MG TAB PO ONE ×2 (13:10→18:00)
[2022-12-25] MEDS ORDERED: DRISDOL (VITAMIN D=ERGOCALCIFEROL) 50000 UNIT CAP PO SCH (14:00)
--- NOTE | 2022-12-25 14:32 | CON ---
History Of Present Illness: The patient seen at [facility] for [facility] . The patient is seen in room 219. The patient is alert, awake and comfortable. Presented to the h ospital with shortness of breath, discomfort, and was found to be in RVR with atrial fibrillation. T he patient states that he has had issues with heart rate before and was given a pacemaker. He states that the pacemaker was then currently placed through a catheter via his groin. He states that he rutherford s been doing okay since then. He comes now with a possibility of pneumonia, which led to atrial fibr illation. The patient was given doses of metoprolol in the emergency room and was somewhat stabilize d. He continues to be in atrial fibrillation currently on my exam with the heart rate being irregula r, but he does have a heart rate in the 70-80 range and his blood pressure is now creeping up slightl y. Last blood pressure was about 166/63, his pulse was about 70-80 and irregular, respirations aroun d 14-16. The patient is saturating at about 95% on room air and is comfortable. He has no swelling in his legs. He has an amputation on the left lower extremity and uses a prosthesis to walk. He is otherwise alert, awake, talking in full sentences. Does not have any chest pain. No shortness of br eath. He gets dialyzed on Monday, , and Monday at [facility]. States that his l ast treatment was on Monday and went well. His volume status has been good. He is not noticing an y other problems and since his heart rate has been improved by medications that he received in the ER , he feels significantly better and does not have any symptoms currently. Chemist Inorganic referral has been placed, but awaiting to be evaluated so far. Past Medical History: Consists of being on dialysis Monday, , Monday. He has had history of BKA on the right. He has history of right nephrectomy, history of atrial fibrillation and has be en on anticoagulation in the past. Has had arthritis, hypertension, diabetes, and has had according to the patient internal pacemaker placed. Family History: Noncontributory. Social History: Has good support through his family. Gets dialysis at [facility]. Do es not use any drugs. Does not smoke cigarettes or use any alcohol or abuse alcohol. Physical Examination: General: The patient is looking comfortable. Vital Signs: Blood pressure is slightly on the higher side in the 160-170 systolic range, repeat blo od pressure is 178/79, pulse is about 70-80 and irregular. He has O2 sats in the 96% to 98% range. He has no pain and is not on any oxygen. He is afebrile with temperature at 98.1. Abdomen: Soft. Extremities: Reveal no edema. He has right BKA. Laboratory Data: Reviewed. Labs show WBC count of 4.9, hemoglobin 9.3, hematocrit 28.2, platelet co unts of 176. Chemistry shows sodium 136, potassium 4.1, chloride 102, bicarb is 26, BUN is 41, creat inine is 9.23, glucose is about 121, calcium is 7.7. His LDL cholesterol was at about 48, HDL is 37. TSH was 1.4. Free T4 was 1.15, triglycerides of 79. Allergies: REVIEWED. ALLERGIES LISTED TO LORAZEPAM. Medications: Reviewed. Medications show currently patient is getting p.r.n. Tylenol. He is on Eliq uis 2.5 b.i.d. He has gotten ceftriaxone. He is getting doxycycline. He is on doxazosin at 4 mg b. i.d. I have ordered vitamin D 50,000 units weekly for him. He is on hydralazine at only 5 mg p.o. b .i.d. He is on metoprolol, which I have started at 25 mg p.o. twice daily with holding parameters gi ving 1 dose right now at 25 mg p.o. He is also on Zofran p.r.n. for nausea. He has gotten a dose of digoxin, diltiazem, and Lopressor in the emergency room. Assessment And Plan: The patient with question of pneumonia with atrial fibrillation. ESRD dialysis scheduled as TTS. The patient is currently stable with last dialysis on Monday. Volume status, b icarb, potassium, sodium look fine. Diet counseled. Currently, blood pressure is going slightly on the higher side with pulse in about 70-80 range. His RVR is corrected, but currently seems to still be in atrial fibrillation. Cardiology evaluation pending. We will start him on 25 mg p.o. b.i.d. Lo pressor with parameters and give him 1 dose now. Continue with doxazosin, on antibiotics. Plan for dialysis on Monday, , Monday with next treatment dose Monday. Evaluate BMP tomorrow and call with any questions. Appreciate the consult. /PJ Voice ID: [id number] Report ID: [id number]
--- NOTE | 2022-12-25 15:37 | P.PN ---
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/2022) at [facility] ESRD on HD TTS Diabetes mellitus type 2diet controlled Hypertension sepsis - pneumonia few days of respiratory symptoms continue empiric treatment patient afebrile, without leukocytosis feels better likely setting off afib, and patient has not been taking his metoprolol as pr escribed afib with RVR h/o tachy-beryl syndrome, s/p PPM reviewed OSH records,, placed at [facility] in 05/2022 prescribed 50mg lopressor BID patient stopped/didn't take this medication on his own due to concern for bradycardia received multiple medications in ED - amio, cardizem, digoxin, lopressor IV x3 restart lopressor continue anticoagulation ESRD on HD nephrology consulted patient appears euvolemic resume TTS HD scedule Code: full Dispo: home, ~1-2 days
[2022-12-25] MEDS ORDERED: METOPROLOL TAR 50 MG TAB PO SCH (18:00)
[2022-12-25] MEDS ORDERED: METOPROLOL TAR 25 MG TAB PO SCH (20:00)
[2022-12-25] MEDS ORDERED: MELATONIN 5 MG TABLET PO PRN (20:10)
[2022-12-25] MEDS: carisoprodoL 350 MG TAB PO SCH ×2 (20:13→20:14)
[2022-12-25] MEDS: HYDROCODONE/APAP 10/325 TAB PO SCH (20:18)
[2022-12-25 23:30] VITALS: BMI 40.8
[2022-12-26] MEDS ORDERED: METOPROLOL TAR 50 MG TAB PO SCH (06:00)
[2022-12-26 06:05] LABS: Absolute Lymphocytes (CBC) 1.4 K/uL (0.7-4.9); Hematocrit 28.5 % (39.6-49.0); Lymphocytes % 24.1 % (15.3-44.8); MCV 88.1 fL (80-100); MPV 7.6 fL (7.6-11.3); RBC Red Blood Cell Count 3.24 M/uL (4.33-5.43)
[2022-12-26 06:26] LABS: Potassium 4.2 mmol/L (3.5-5.1)
[2022-12-26] MEDS ORDERED: DOXAZOSIN 2 MG TAB ONE (07:47)
[2022-12-26] MEDS: HYDRALAZINE HCL 10 MG TABLET PO SCH (08:03)
[2022-12-26] MEDS: DOXAZOSIN 4 MG TAB PO SCH (08:05)
[2022-12-26] MEDS: APIXABAN 2.5 MG TABLET PO SCH (08:06)
[2022-12-26 08:07] VITALS: BP 180/85
[2022-12-26 08:48] VITALS: TEMP 97.5
[2022-12-26] MEDS: DOXYCYCLINE 100 MG in NA CHLORIDE 0.9% 100 ML IVPB SCH (09:00)
[2022-12-26] MEDS: CEFTRIAXONE 1,000 MG in NA CHLORIDE 0.9% 50 ML IVPB SCH (09:00)
[2022-12-26] MEDS: HYDROCODONE/APAP 10/325 TAB PO SCH (09:00)
--- NOTE | 2022-12-26 10:13 | P.PN ---
Date of Service: 12/26/22 Vital Signs Temp Pulse Resp BP Pulse Ox 97.5 F 67 18 180/85 H 95 12/26/22 08:00 12/26/22 08:00 12/26/22 08:00 12/26/22 08:05 12/26/22 08:00 Medications Acetaminophen (Acetaminophen 500 Mg Tab) 500 mg PO Q4HP PRN PRN Reason: Pain scale 2-4 (Mild) Last Admin: 12/24/22 22:48 Dose: 500 mg Hydrocodone Bitart/Acetaminophen (Hydrocodone/Apap 10/325 Tab) 1 tab PO BID [facility] Last Admin: 12/25/22 20:18 Dose: Not Given Apixaban (Apixaban 2.5 Mg Tablet) 2.5 mg PO BID [facility] Last Admin: 12/26/22 08:06 Dose: 2.5 mg Carisoprodol (Carisoprodol 350 Mg Tab) 350 mg PO BEDTIME [facility] Last Admin: 12/25/22 20:14 Dose: 350 mg Doxazosin Mesylate (Doxazosin 4 Mg Tab) 4 mg PO BID [facility] Last Admin: 12/26/22 08:05 Dose: 4 mg Ergocalciferol (Drisdol (Vitamin D=Ergocalciferol) 88533 Unit Cap) 50,000 unit PO Q7D@0900 [facility] Last Admin: 12/25/22 13:27 Dose: 50,000 unit Ergocalciferol (Drisdol (Vitamin D=Ergocalciferol) 77065 Unit Cap) 50,000 unit PO Q7D [facility] Hydralazine HCl (Hydralazine Hcl 10 Mg Tablet) 5 mg PO BID [facility] Last Admin: 12/26/22 08:03 Dose: 5 mg Doxycycline Hyclate 100 mg/ (Sodium Chloride) 100 mls @ 100 mls/hr IVPB Q12HR [facility]; Protocol Last Admin: 12/25/22 20:14 Dose: 100 mls Ceftriaxone Sodium 1,000 mg/ (Sodium Chloride) 50 mls @ 100 mls/hr IVPB DAILY [facility]; Protocol Last Admin: 12/25/22 09:12 Dose: 50 mls Melatonin (Melatonin 5 Mg Tablet) 5 mg PO BEDTIME PRN PRN PRN Reason: INSOMNIA Last Admin: 12/25/22 22:39 Dose: 5 mg Metoprolol Tartrate (Metoprolol Tar 50 Mg Tab) 50 mg PO BID 6AM 6PM [facility] Last Admin: 12/26/22 05:37 Dose: 50 mg Ondansetron HCl (Ondansetron 4 Mg/2 Ml Vial) 4 mg IV Q6HP PRN PRN Reason: NAUSEA / VOMITING Sodium Chloride (Flush Normal Saline 10 Ml) 10 ml IV BID [facility] Last Admin: 12/26/22 08:07 Dose: 10 ml Microbiology Results 12/24/22 18:15 Blood - Blood Aerobic Blood Culture - Preliminary No growth in 24 hours. 12/24/22 18:15 Blood - Blood Anaerobic Blood Culture - Preliminary No growth in 24 hours. 12/24/22 16:20 Blood - Blood Aerobic Blood Culture - Preliminary No growth in 24 hours. 12/24/22 16:20 Blood - Blood Anaerobic Blood Culture - Preliminary No growth in 24 hours. Assessment/ Plan: Nephrology Feeling better today No dyspnea or chest pain No acute events overnight Vitals, medications, blood work and imaging reviewed in the chart. NAD. NCAT. CTA. RRR. Soft Abd. No C/C/E. No rash. AAO. Normal speech. Neck supple. Ambulatory. ESRD on HD TTS -HD TIW HTN with CKD/ CHF -Continue Metoprolol & Doxazosin Diastolic CHF, chronic -Low sodium diet -HD with UF DM II with CKD & Polyneuropathy -Recommend RISS Anemia in CKD -Retacrit X1 CKD MBD -Ergo X1 Case reviewed with Dr. Anders
[2022-12-26] MEDS ORDERED: EPOETIN ALFA-EPBX 10,000 UNIT/ML VIAL SQ ONE (10:15)
[2022-12-26] MEDS ORDERED: DRISDOL (VITAMIN D=ERGOCALCIFEROL) 50000 UNIT CAP PO SCH (11:00)
[2022-12-26 11:56] VITALS: O2SAT 95
--- NOTE | 2022-12-26 12:38 | EKG ---
Test Date: 2022-12-25 Test Time: 09:16:44 Eeler: AMANDO MEASUREMENT RESULTS: Intervals: Rate: 73 VT: 180 QRSD: 96 QT: 398 QTc: 438 [place]: P: 115 VT: 180 QRS: 162 T: 106 INTERPRETIVE STATEMENTS: Suspect arm lead reversal, interpretation assumes no reversal Sinus rhythm with occasional premature ventricular complexes Right axis deviation Abnormal ECG Compared to ECG 12/24/2022 19:49:13 Ventricular premature complex(es) now present Right-axis deviation now present Electronically Signed On 12-26-22 12:35:48 INSPECTOR WATCH TRAIN by Tacos Pendleton
--- NOTE | 2022-12-26 12:39 | EKG ---
Test Date: 2022-12-24 Test Time: 19:49:13 Test Engineer: MEASUREMENT RESULTS: Intervals: Rate: 81 TX: 188 QRSD: 90 QT: 378 QTc: 439 [place]: P: 64 TX: 188 QRS: 54 T: 74 INTERPRETIVE STATEMENTS: Normal sinus rhythm Normal ECG Compared to ECG 12/24/2022 16:35:45 No significant changes Electronically Signed On 12-26-22 12:36:14 HYPOID GEAR TESTER by Tacos Pendleton
--- NOTE | 2022-12-26 12:40 | EKG ---
Test Date: 2022-12-24 Test Time: 16:35:45 Scalp Treatment Specialist: SCOTTY MEASUREMENT RESULTS: Intervals: Rate: 135 OK: 200 QRSD: 88 QT: 284 QTc: 426 [place]: P: 255 OK: 200 QRS: 41 T: 87 INTERPRETIVE STATEMENTS: Unusual P axis, possible ectopic atrial tachycardia Abnormal ECG Compared to ECG 12/24/2022 15:42:34 Atrial fibrillation no longer present Ventricular premature complex(es) no longer present Electronically Signed On 12-26-22 12:36:49 CLINICAL RESOURCE COORDINATOR by Tacos Pendleton
--- NOTE | 2022-12-26 12:41 | EKG ---
Test Date: 2022-12-24 Test Time: 15:42:34 Ampoule Inspector: LML MEASUREMENT RESULTS: Intervals: Rate: 132 MA: QRSD: 74 QT: 320 QTc: 474 [place]: P: MA: QRS: 52 T: 67 INTERPRETIVE STATEMENTS: Atrial fibrillation with rapid ventricular response with premature ventricular or aberrantly conducted complexes Abnormal ECG Compared to ECG 09/01/2022 17:06:55 Ventricular premature complex(es) now present Sinus rhythm no longer present Electronically Signed On 12-26-22 12:36:57 QUALITY CONTROL MANAGER by Tacos Pendleton
--- NOTE | 2022-12-28 15:26 | EKG ---
Test Date: 2022-12-25 Test Time: 20:38:41 Vision Mixer: HANNAH MEASUREMENT RESULTS: Intervals: Rate: 66 PA: 184 QRSD: 92 QT: 398 QTc: 417 [place]: P: 11 PA: 184 QRS: 38 T: -5 INTERPRETIVE STATEMENTS: Normal sinus rhythm Normal ECG Compared to ECG 12/25/2022 09:16:44 Ventricular premature complex(es) no longer present Right-axis deviation no longer present Electronically Signed On 12-28-22 15:21:19 NIGHT MANAGER by Tacos Pendleton
--- NOTE | 2023-01-02 17:47 | P.DS ---
Admission Date: 12/24/22 Discharge Date: 12/26/22 Disposition: ROUTINE DISCHARGE Reason for Admission: A-fib RVR, pneumonia Consultations: Nephrology - Dr. Roca Cardiology - Dr. Pendleton Brief History of Present Illness: 52-year-old male with history of ESRD on HD TTS, atrial fibrillation on chronic anticoagulation, hypertension, RA, diet-controlled diabetes presented to the emergency department with palpitations, tachycardia. He was noted to be in atrial fibrillation with rapid ventricular response with rates from 130-145. He was given IV Lopressor 5 mg x 3, digoxin 0.5 mg IV x1 as well as Cardizem 10 mg IV push, his rate has since improved to 85, still in A- fib/flutter. He is normotensive currently blood pressure 164/90 his labs were significant for demonstration of his ESRD initial lactic acid 2.6 chest x-ray showed increased interstitial markings bilaterally could reflect atypical infectious process or early developing pneumonia. His PCP Dr. Roca reportedly sent him a prescription for an antibiotic to his pharmacy recently but he had not started this yet. He was given antibiotics in the ED Rocephin/doxycycline. Hospital Course: Problem List Severe sepsis secondary to pneumonia Atrial fibrillation with RVR on chronic anticoagulation h/o tachy-beryl; s/p paccemaker placement (05/2022) at [facility] ESRD on HD TTS Diabetes mellitus type 2diet controlled Hypertension Found to be in afib with RVR, felt secondary to mild pneumonia most likely. He has also been off his metoprolol since having the pacemaker placed last year. Review of the discharge summary and recommendations at that time note he should be taking 50mg twice daily metoprolol, which he has not. He states he was advised by them to stop taking the medication. Dr. Pendleton and Dr. Roca were consulted (Cardiology, Nephrology). He was restarted on 50mg metoprolol twice daily. Remained in sinus rhythm with heart rates in high 60s-70, and no hypotension. He was empirically treated with IV antibiotics. He remained afebrile. Discharged with 50mg metoprolol twice daily. Stated he just picked up a new prescription of metoprolol (100mg twice daily) which he will cut in half and take. He will also complaint evaluation supervisor the antibiotic, augmentin, that was prescribed by his body recall instructor. Continue other home meds as prescribed. Follow up: PCP within 3-5 days Cardiology in a few weeks Nephrology as scheduled. Vital Signs/Physical Exam: Temp Pulse Resp BP Pulse Ox 97.5 F 67 18 180/85 H 95 12/26/22 08:00 12/26/22 08:00 12/26/22 08:00 12/26/22 08:05 12/26/22 08:00 Physical exam GEN: Alert, oriented, NAD HEENT: Normal conjunctiva, sclera anicteric CV: Regular rate and rhythm, no edema Pulm: Nonlabored respirations on room air, clear to auscultation bilaterally ABD: Soft, nontender, nondistended Neuro: Normal speech, normal affect Laboratory Data at Discharge: WBC 5.60 K/uL (4.3-10.9) 12/26/22 05:38 Hgb 9.4 g/dL (13.6-17.9) L 12/26/22 05:38 Hct 28.5 % (39.6-49.0) L 12/26/22 05:38 Plt Count 177 K/uL (152-406) 12/26/22 05:38 Sodium 137 mmol/L (136-145) 12/26/22 05:38 Potassium 4.2 mmol/L (3.5-5.1) 12/26/22 05:38 BUN 57 mg/dL (7-18) H 12/26/22 05:38 Creatinine 11.90 mg/dL (0.70-1.30) H* 12/26/22 05:38 Glucose 100 mg/dL (74-106) 12/26/22 05:38 Magnesium 2.1 mg/dL (1.6-2.4) 12/24/22 16:02 Total Bilirubin 0.6 mg/dL (0.2-1.0) 12/24/22 16:02 AST 21 U/L (15-37) 12/24/22 16:02 ALT 18 U/L (16-61) 12/24/22 16:02 Alkaline Phosphatase 113 U/L (45-117) 12/24/22 16:02 Triglycerides 79 mg/dL (<150) 12/25/22 04:00 Cholesterol 101 mg/dL (<200) 12/25/22 04:00 HDL Cholesterol 37 mg/dL (40-60) L 12/25/22 04:00 Cholesterol/HDL Ratio 2.73 12/25/22 04:00 Home Medications: Carisoprodol [Soma] 350 mg PO BEDTIME 12/25/22 Clonidine Patch [Catapres-Tts 3*] 0.3 mg TD EVERY 7TH DAY 12/25/22 Doxazosin [Cardura*] 4 mg PO BID 12/25/22 Hydralazine [Apresoline*] 5 mg PO BID 12/25/22 Hydrocodone Bit/Acetaminophen [Hydrocodon-Acetaminophn 10-325] 1 each PO BID 12/25/22 Metoprolol Tartrate [Lopressor*] 50 mg PO BID 6AM 6PM tab 12/26/22 Physician Discharge Instructions: Found to be in afib with RVR, felt secondary to mild pneumonia most likely. He has also been off his metoprolol since having the pacemaker placed last year. Review of the discharge summary and recommendations at that time note he should be taking 50mg twice daily metoprolol, which he has not. He states he was advised by them to stop taking the medication. Dr. Pendleton and Dr. Roca were consulted (Cardiology, Nephrology). He was restarted on 50mg metoprolol twice daily. Remained in sinus rhythm with heart rates in high 60s-70, and no hypotension. He was empirically treated with IV antibiotics. He remained afebrile. Discharged with 50mg metoprolol twice daily. Stated he just picked up a new prescription of metoprolol (100mg twice daily) which he will cut in half and take. He will also complaint evaluation supervisor the antibiotic, augmentin, that was prescribed by his body recall instructor. Continue other home meds as prescribed. Follow up: PCP within 3-5 days Cardiology in a few weeks Nephrology as scheduled. Followup: Waldo Roca DO [ACTIVE - CAN ADMIT] - Toney Pacheco MD [ACTIVE - CAN ADMIT] - Tacos Pendleton MD [ACTIVE - CAN ADMIT] - Time spent managing pt's care (in minutes): 45
== END 2022-12-26 11:15 | disposition home or self-care (01) | DRG 871 ==
LOC: ER 15:42 → ERHOLD 18:50 → 2ND 21:05
PROVIDERS: ADMIT Hospitalist; ATTEND Hospitalist
DX: A41.9 Sepsis, unspecified organism (principal); J18.9 Pneumonia, unspecified organism; N18.6 End stage renal disease; I50.32 Chronic diastolic (congestive) heart failure; I13.2 Hypertensive heart and chronic kidney disease with heart failure and with stage 5 chronic kidney disease, or end stage renal disease; I48.92 Unspecified atrial flutter; R65.20 Severe sepsis without septic shock; E11.40 Type 2 diabetes mellitus with diabetic neuropathy, unspecified; E11.22 Type 2 diabetes mellitus with diabetic chronic kidney disease; D63.1 Anemia in chronic kidney disease; M06.9 Rheumatoid arthritis, unspecified; I48.91 Unspecified atrial fibrillation; Z99.2 Dependence on renal dialysis; Z95.0 Presence of cardiac pacemaker; Z88.8 Allergy status to other drugs, medicaments and biological substances; Z79.01 Long term (current) use of anticoagulants; Z89.511 Acquired absence of right leg below knee; Z79.899 Other long term (current) drug therapy; Z89.422 Acquired absence of other left toe(s); Z85.528 Personal history of other malignant neoplasm of kidney; Z20.822 Contact with and (suspected) exposure to COVID-19
CPT/HCPCS: 36415; 71045; 80048; 80053; 80061; 82947; 83605; 83735; 84439; 84443; 84484; 85025; 87040; 87811; 93005; 99285; J1160; J3010; Q5106

== ENCOUNTER 2025-03-27 14:09 | Emergency (ER) | payer OTHER ==
--- OUTSIDE RECORDS SUMMARY | 2025-03-27 14:12 | XMS REPORT | Clinical Summary ---
Author Name Unknown Organization [facility] [place] Address [address] [place] [address] Care Team Providers Care Polygraph Technician Name Role Phone Nirav Braun MD [facility] [phone] Allergies No known active allergies Medications * This document contains information received from the source organization and may not represent a complete record from that organization. HYDROcodone-acet aminophen (NORCO) 5 mg-325 mg per tablet Take 1 tablet by mouth every 6 (six) hours as needed. Active lisinopril (PRINIVIL,ZESTRI L) 30 mg tablet Take 30 mg by mouth every morning. Active HYDROmorphone (DILAUDID) 4 mg tabletIndication s:Back pain Take 1 tablet (4 mg) by mouth every 4 (four) hours as needed for severe pain. 30 tablet 07/17/2018 Active Social History Tobacco Use Types Packs/Day Years Used Date Smoking Tobacco: Never Smokeless Tobacco: Never Alcohol Use Standard Drinks/Week Comments No 0 (1 standard drink = 0.6 oz pur e alcohol) Sex and Gender Information Value Date Recorded Sex Assigned at Not on file Legal Sex Male 3:39 PM CDT Gender Identity Not on file Sexual Orientation Not on file Obstetrics History Plan of Treatment Not on file Insurance [facility] MEDICARE MEDICAID DUAL HMO UHC MEDICARE MEDICAID DUAL HMO UHC MEDICARE MEDICAID DUAL HMO Care Teams Polygraph Technician Relationship Specialty [place] [id number] [phone] PCP - External Primary Care Provider Internal Medicine 07/18/18
[2025-03-27 14:45] LABS: Absolute Eosinophils 0.2 K/uL (0-0.5); Absolute Lymphocytes (CBC) 0.7 K/uL (0.7-4.9); Absolute Monocytes 0.4 K/uL (0.1-1.3); Absolute Neutrophil 2.3 K/uL (1.8-8.0); Basophils % 0.7 % (0-1.3); Eosinophils % 4.5 % (0-4.4); Hematocrit 34.7 % (39.6-49.0); Hemoglobin 11.6 g/dL (13.6-17.9); Lymphocytes % 19.6 % (15.3-44.8); MCH 28.1 pg (27.0-35.0); MCHC 33.4 g/dL (32.0-36.0); MCV 84.2 fL (80-100); MPV 7.3 fL (7.6-11.3); Monocytes % 10.8 % (3.3-12.3); Neutrophils % 64.4 % (41.7-73.7); Nucleated Red Blood Cells % 0.1 % (0-0); Platelets 110 thou/uL (152-406); RBC Red Blood Cell Count 4.12 M/uL (4.33-5.43); Red Cell Distribution Width 17.1 % (12.1-15.2)
[2025-03-27 15:00] LABS: PT Prothrombin Time 11.6 SECONDS (10-13.0); Protime INR 1.02
--- NOTE | 2025-03-27 15:06 | RAD REPORT ---
EXAMINATION: ONE VIEW CHEST XR CLINICAL INDICATION: CHEST PAIN TECHNIQUE: Frontal chest projection is submitted. Examination is limited by patient positioning and t echnique. COMPARISON: 12/24/2022 FINDINGS: Chronically elevated left hemidiaphragm is seen. Linear atelectasis is present in the left lung base. Mild interstitial pulmonary edema is seen. The heart is moderately enlarged in size. No displaced fractures identified.
[2025-03-27 15:13] LABS: Albumin 3.5 g/dL (3.4-5.0); Albumin/Globulin Ratio 0.9 (1.1-1.8); Anion Gap 13.6 mEq/L (5.0-15.0); Bilirubin Direct 0.2 mg/dL (0-0.2); Bilirubin Indirect, Calculated 0.4 mg/dL (0.2-0.8); Bilirubin Total 0.6 mg/dL (0.2-1.0); Globulin 3.7 g/dL (2.3-3.5); Magnesium 2.2 mg/dL (1.6-2.4); Potassium 3.6 mEq/L (3.5-5.1); Protein, Total 7.2 g/dL (6.4-8.2); Troponin High Sensitivity 33.3 pg/mL (<58.9)
[2025-03-27] MEDS ORDERED: HYDROMORPHONE HCL 1 MG/ML INJ ONE ×2 (15:18→16:32)
[2025-03-27] MEDS ORDERED: ONDANSETRON 4 MG/2 ML VIAL ONE (15:18)
--- NOTE | 2025-03-27 15:22 | RAD REPORT ---
EXAM: CT CHEST, ABDOMEN AND PELVIS WITHOUT CONTRAST CLINICAL INDICATION: LUQ abd pain;Chest pain TECHNIQUE: CT chest, abdomen and pelvis was performed without contrast, as per department protocol. A xial, sagittal and coronal reconstructions were obtained. One or more of the following dose reduction techniques were used: Automated exposure control, adjustment of the mA and/or kV according to patient size, and/or iterative reconstruction. Unless otherwise specified, incidental findings do not require dedicated imaging follow-up. Examination is limited by the lack of intravenous contrast material. COMPARISON: No prior exam. FINDINGS: LUNGS: There is elevation of the left hemidiaphragm noted with atelectasis in the left lung base. The lungs are otherwise clear. No nodule, mass or infiltrate. PLEURA: No pleural effusion. No pneumothorax. MEDIASTINUM AND LYMPH NODES: No mediastinal mass or fluid collection. Normal size mediastinal, hilar, and axillary lymph nodes. OSSEOUS STRUCTURES AND CHEST WALL: Intact. LIVER: Normal in size and contour. No focal lesion or biliary dilatation. Grossly unremarkable gallbl adder. PANCREAS: No mass, ductal dilation, or edis-pancreatic fluid. SPLEEN: Normal size. No focal lesion. ADRENALS: Normal; no mass. KIDNEYS: The left kidney is mildly atrophic. Nonvisualized right kidney. URINARY BLADDER: Normal contour. GASTROINTESTINAL TRACT: No bowel obstruction, free air, significant free fluid or abscess. APPENDIX: Normal appendix. LYMPH NODES: No lymphadenopathy. MUSCULOSKELETAL: Small rounded lucencies are seen in the spinal column which may be related to brown tumors. OTHER: Significant atherosclerotic vascular disease. IMPRESSION: Chronically elevated left hemidiaphragm is noted with atelectasis in left lung base.
--- NOTE | 2025-03-27 16:16 | ER ---
Nurse's Notes [facility] Name: Vladimir Maguire Age: 54 yrs Sex: Male : 1970 Arrival Date: 03/27/2025 Time: 14:08 Bed 15 Private MD: Diagnosis: Abdominal pain, Generalized Presentation: 03/27 14:19 Chief complaint: EMS states: Pt finished his dialysis and started reporting left chest jb4 pain that radiates to the L mid to lower back., pt was given 324mg of chewable aspirin, and 1 sublingual nitro. BGL 70. Coronavirus screen: At this time, the client does not indicate any symptoms associated with coronavirus-19. Ebola Screen: No symptoms or risks identified at this time. Initial Sepsis Screen: Does the patient meet any 2 criteria? No. Patient's initial sepsis screen is negative. Does the patient have a suspected source of infection? No. Patient's initial sepsis screen is negative. Risk Assessment: Do you want to hurt yourself or someone else? Patient reports no desire to harm self or others. Onset of symptoms was March 23, 2025. Transition of care: patient was not received from another setting of care. 14:19 Method Of Arrival: EMS: [facility] jb4 14:19 Acuity: GINA 2 jb4 Triage Assessment: 14:24 General: Appears in no apparent distress. uncomfortable, Behavior is calm, cooperative, jb4 appropriate for age. Pain: Complains of pain in anterior aspect of left upper chest Pain radiates to right mid back and right low back Pain currently is 7 out of 10 on a pain scale. Quality of pain is described as sharp, Pain began 4 days ago. Neuro: Level of Consciousness is awake, alert, obeys commands, Oriented to person, place, time, situation. Cardiovascular: Patient's skin is warm and dry. Respiratory: Airway is patent Respiratory effort is even, unlabored, Respiratory pattern is regular, symmetrical. Derm: Skin is intact, Skin is pink, warm \T\ dry. Musculoskeletal: Circulation, motion, and sensation intact. Range of motion: intact in all extremities. 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 - Infectious Disease History:: Denies. - Social history:: Smoking status: Patient denies any tobacco usage or history of. Screenin:25 [facility] ED Fall Risk Assessment (Adult) History of falling in the last 3 months, jb4 including since admission No falls in past 3 months (0 pts) Confusion or Disorientation No (0 pts) Intoxicated or Sedated No (0 pts) Impaired Gait No (0 pts) Mobility Assist Device Used No (0 pt) Altered Elimination No (0 pt) Score/Fall Risk Level 0 - 2 = Low Risk Oriented to surroundings, Maintained a safe environment. Abuse screen: Denies threats or abuse. Nutritional screening: No deficits noted. Tuberculosis screening: No symptoms or risk factors identified. Assessment: 14:25 Reassessment: see triage note. jb4 15:29 Reassessment: Patient appears in no apparent distress at this time. Patient and/or jb4 family updated on plan of care and expected duration. Pain level reassessed. Patient is alert, oriented x 3, equal unlabored respirations, skin warm/dry/pink. 16:50 Reassessment: Patient appears in no apparent distress at this time. Patient and/or jb4 family updated on plan of care and expected duration. Pain level reassessed. Patient is alert, oriented x 3, equal unlabored respirations, skin warm/dry/pink. Vital Signs: 14:19 BP 179 / 92; Pulse 77; Resp 20; Pulse Ox 100% on R/A; Weight 97.52 kg (R); Height 5 ft. jb4 10 in. (R); Pain 7/10; 15:29 BP 190 / 91; Pulse 72; Resp 16; Pulse Ox 100% on R/A; jb4 16:50 BP 177 / 96; Pulse 69; Resp 16; Pulse Ox 100% on R/A; jb4 14:19 Body Mass Index 30.85 (97.52 kg, 177.8 cm) jb4 14:19 Pain Scale: Adult jb4 ED Course: 14:08 Patient arrived in ED. ty 14:09 Quan Berg MD is Attending Physician. sp3 14:24 Triage completed. jb4 14:24 Arm band placed on right wrist. jb4 14:25 No provider procedures requiring assistance completed. Maintain EMS IV. Dressing jb4 intact. Good blood return noted. Site clean \T\ dry. Gauge \T\ site: 20g RAC. Flushed with 10 mL NS. 14:59 XRAY Chest (1 view) In Process Unspecified. EDMS 15:11 CT Chest Abdomen Pelvis W/O Contrast In Process Unspecified. EDMS 15:15 Seyomur Damico, RN is Primary Nurse. jb4 16:50 Patient has correct armband on for positive identification. Bed in low position. Call jb4 light in reach. Side rails up X 1. Provided Education on: discharge instructions.. 16:50 IV discontinued, intact, bleeding controlled, No redness/swelling at site. Pressure jb4 dressing applied. Administered Medications: 15:24 Drug: HYDROmorphone IVP 1 mg IVP once Route: IVP; Site: right antecubital; jb4 15:24 Drug: Ondansetron IVP 4 mg IVP once; over 2 minutes Route: IVP; Site: right antecubital;jb4 16:37 Drug: HYDROmorphone IVP 1 mg IVP once Route: IVP; Site: right antecubital; jb4 Medication: 14:25 VIS not applicable for this client. jb4 Outcome: 16:16 Discharge ordered by . sp3 16:50 Discharged to home ambulatory, jb4 16:50 Condition: stable 16:50 Discharge instructions given to patient, Instructed on discharge instructions, follow up and referral plans. no drinking with medication, no driving heavy equipment, medication usage, Demonstrated understanding of instructions, follow-up care, medications, Prescriptions given X 1, 16:52 Patient left the ED. jb4 Signatures: Dispatcher [employer] EDMS Seymour Damico, RN RN jb4 Quan Berg MD MD sp3 Lucian Solomon
--- NOTE | 2025-03-27 16:16 | EDPHYS ---
Physician Documentation [facility] Name: Vladimir Maguire Age: 54 yrs Sex: Male : 1970 Arrival Date: 03/27/2025 Time: 14:08 Bed 15 Private MD: ED Physician Quan Berg HPI: 03/27 16:11 This 54 yrs old Male presents to ER via EMS with complaints of abdominal pain. sp3 16:11 54-year-old male with history of ESRD with last dialysis today, diabetes, hypertension, sp3 renal disease, arthritis, now presents to the ED with left upper quadrant abdominal pain for 4 days. Patient has had episodic pain for the last 2 months. He denies any vomiting, diarrhea, melena, chest pain, shortness of breath, headache, fever, syncope, bleeding, or any other signs or symptoms on ROS at this time.. 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 - Infectious Disease History:: Denies. - Social history:: Smoking status: Patient denies any tobacco usage or history of. ROS: 16:12 Constitutional: Negative for fever, chills, and weight loss, Eyes: Negative for injury, sp3 pain, redness, and discharge, ENT: Negative for injury, pain, and discharge, Neck: Negative for injury, pain, and swelling, Cardiovascular: Negative for chest pain, palpitations, and edema, Respiratory: Negative for shortness of breath, cough, wheezing, and pleuritic chest pain, Back: Negative for injury and pain, : Negative for injury, bleeding, discharge, and swelling, MS/Extremity: Negative for injury and deformity, Skin: Negative for injury, rash, and discoloration, Neuro: Negative for headache, weakness, numbness, tingling, and seizure, Psych: Negative for depression, anxiety, suicide ideation, homicidal ideation, and hallucinations, Allergy/Immunology: Negative for hives, rash, and allergies, Endocrine: Negative for neck swelling, polydipsia, polyuria, polyphagia, and marked weight changes, Hematologic/Lymphatic: Negative for swollen nodes, abnormal bleeding, and unusual bruising, 16:12 All other systems are negative, Exam: 16:12 Constitutional: This is a well developed, well nourished patient who is awake, alert, sp3 and in no acute distress. Head/Face: Normocephalic, atraumatic. Eyes: Pupils equal round and reactive to light, extra-ocular motions intact. Lids and lashes normal. Conjunctiva and sclera are non-icteric and not injected. Cornea within normal limits. Periorbital areas with no swelling, redness, or edema. Neck: Trachea midline, no thyromegaly or masses palpated, and no cervical lymphadenopathy. Supple, full range of motion without nuchal rigidity, or vertebral point tenderness. No Meningismus. Chest/axilla: Normal chest wall appearance and motion. Nontender with no deformity. No lesions are appreciated. Cardiovascular: Regular rate and rhythm with a normal S1 and S2. No gallops, murmurs, or rubs. Normal PMI, no JVD. No pulse deficits. Respiratory: Lungs have equal breath sounds bilaterally, clear to auscultation and percussion. No rales, rhonchi or wheezes noted. No increased work of breathing, no retractions or nasal flaring. Back: No spinal tenderness. No costovertebral tenderness. Full range of motion. Skin: Warm, dry with normal turgor. Normal color with no rashes, no lesions, and no evidence of cellulitis. MS/ Extremity: Pulses equal, no cyanosis. Neurovascular intact. Full, normal range of motion. Neuro: Awake and alert, GCS 15, oriented to person, place, time, and situation. Cranial nerves II-XII grossly intact. Motor strength 5/5 in all extremities. Sensory grossly intact. Cerebellar exam normal. Normal gait. Psych: Awake, alert, with orientation to person, place and time. Behavior, mood, and affect are within normal limits. 16:13 ECG was reviewed by the Attending Physician. EKG demonstrates normal sinus rhythm at 76 sp3 bpm with normal intervals, normal QRS, normal axis, nonspecific diffuse ST/T changes without evidence of acute ischemia. 16:13 Abdomen/GI: Patient with pain on palpation left upper quadrant mild in nature without peritoneal signs, rebound or guarding., Vital Signs: 14:19 BP 179 / 92; Pulse 77; Resp 20; Pulse Ox 100% on R/A; Weight 97.52 kg (R); Height 5 ft. jb4 10 in. (R); Pain 7/10; 15:29 BP 190 / 91; Pulse 72; Resp 16; Pulse Ox 100% on R/A; jb4 16:50 BP 177 / 96; Pulse 69; Resp 16; Pulse Ox 100% on R/A; jb4 14:19 Body Mass Index 30.85 (97.52 kg, 177.8 cm) jb4 14:19 Pain Scale: Adult jb4 MDM: 14:09 Medical Screening Exam initiated sp3 16:14 Data reviewed: vital signs, nurses notes, old medical records, lab test result(s), EKG, sp3 radiologic studies. ED course: 54-year-old male with PMH above now with left upper quadrant abdominal pain. Differential diagnosis includes colitis, gastritis, constipation, functional abdominal pain and to lesser degree ACS or other process. Patient does not make urine. Workup demonstrates CT scan of the chest abdomen and pelvis without significant findings. Other than renal function, laboratory values without significant findings. Patient significantly improved after Dilaudid. Will give 1 additional milligram prior to discharge. I have advised patient to follow back up with his PCP for further evaluation and/or management. No emergency exist at this time.. 03/27 14:09 Order name: Basic Metabolic Panel; Complete Time: 15:54 03/27 14:09 Order name: CBC with Diff; Complete Time: 15:54 [facility] 03/27 14:09 Order name: LFT's; Complete Time: 15:54 03/27 14:09 Order name: Magnesium; Complete Time: 15:54 03/27 14:09 Order name: NT PRO-BNP; Complete Time: 15:54 [facility] 03/27 14:09 Order name: PT-INR; Complete Time: 15:54 03/27 14:09 Order name: Troponin HS; Complete Time: 15:54 03/27 14:48 Order name: Lipase; Complete Time: 15:54 [facility] 03/27 14:09 Order name: XRAY Chest (1 view); Complete Time: 15:54 03/27 14:48 Order name: CT Chest Abdomen Pelvis W/O Contrast; Complete Time: 15:54 [facility] 03/27 14:09 Order name: Cardiac monitoring; Complete Time: 14:30 sp3 03/27 14:09 Order name: EKG - Nurse/Tech; Complete Time: 14:19 sp3 03/27 14:09 Order name: IV Saline Lock; Complete Time: 14:19 sp3 03/27 14:09 Order name: Labs collected and sent; Complete Time: 14:30 sp3 03/27 14:09 Order name: O2 Per Protocol; Complete Time: 14:19 sp3 03/27 14:09 Order name: O2 Sat Monitoring; Complete Time: 14:19 sp3 Administered Medications: 15:24 Drug: HYDROmorphone IVP 1 mg IVP once Route: IVP; Site: right antecubital; jb4 15:24 Drug: Ondansetron IVP 4 mg IVP once; over 2 minutes Route: IVP; Site: right antecubital;jb4 16:37 Drug: HYDROmorphone IVP 1 mg IVP once Route: IVP; Site: right antecubital; jb4 Disposition Summary: 03/27/25 16:16 Discharge Ordered Notes: Location: Home sp3 Condition: Stable sp3 Diagnosis - Abdominal pain, Generalized sp3 Followup: sp3 - With: Private Physician - When: Upon discharge from the Emergency Department - Reason: Continuance of care Discharge Instructions: - Discharge Summary Sheet sp3 - Abdominal Pain, Adult sp3 Forms: - Medication Reconciliation Form sp3 - Antibiotic Education sp3 - Prescription Opioid Use sp3 - Patient Portal Instructions sp3 - Leadership Thank You Letter sp3 Prescriptions: - Tramadol 50 mg Oral Tablet - take 1 tablet ORAL route every 8 hours as needed; 12 tablet; Refills: 0, sp3 Product Selection Permitted Signatures: Dispatcher [employer] EDMS Seymour Damico RN RN jb4 Quan Berg MD MD sp3 Corrections: (The following items were deleted from the chart) 14:10 14:10 BASIC METABOLIC PANEL+C.LAB.BRZ ordered. EDMS EDMS 14:10 14:10 CBC+H.LAB.BRZ ordered. EDMS EDMS 14:10 14:10 HEPATIC FUNCTION+C.LAB.BRZ ordered. EDMS EDMS 14:10 14:10 MAGNESIUM+C.LAB.BRZ ordered. EDMS EDMS 14:10 14:10 PROBNP+C.LAB.BRZ ordered. EDMS EDMS 14: 14:10 PROTIME (+INR)+COAG.LAB.BRZ ordered. EDMS EDMS 14: 14:10 Troponin High Sensitivity+C.LAB.BRZ ordered. EDMS EDMS 14: 14:10 Chest Single View+RAD.RAD.BRZ ordered. EDMS EDMS
[2025-03-27 17:28] VITALS: O2SAT 100
[2025-03-27 17:30] VITALS: BP 177/96
== END 2025-03-27 16:52 | disposition home or self-care (01) ==
LOC: ER 14:09
DX: R10.84 Generalized abdominal pain (principal); I12.0 Hypertensive chronic kidney disease with stage 5 chronic kidney disease or end stage renal disease; E11.22 Type 2 diabetes mellitus with diabetic chronic kidney disease; N18.6 End stage renal disease; Z99.2 Dependence on renal dialysis; M06.9 Rheumatoid arthritis, unspecified
CPT/HCPCS: 93005; 85025; 80048; 36415; 83735; 85610; 80076; 84484; 83690; 83880; 71250; 74176; 71045; 96375; 96374; 99284; J1171 ×2; J2405